=== PATIENT | female | born 1950 | race Caucasian/White ===

== ENCOUNTER 2018-12-15 17:11 | Emergency (ER) | payer OTHER ==
[~2018-12-15] VITALS: Ht 162.6 cm; Wt 57.1 kg
--- OUTSIDE RECORDS SUMMARY | ~2018-12-15 | XMS | Encounter Summary ---
Demographics + + + | Address | [address] | | | [place] [address] | + + + | Home Phone | | + + + | Preferred Language | Unknown | + + + | Marital Status | Single | + + + | Yazdanism Affiliation | NRP | + + + | Race | White | + + + | Ethnic Group | Not or | + + + Author + + + | Author | [facility] | + + + | Organization | [facility] | + + + | Address | Unknown | + + + | Phone | Unavailable | + + + Support + + +---------+ + | Name | Relationship | Address | Phone | + + +---------+ + | Collins Gant | ECON | Unknown | | + + +---------+ + | Laura Allred | ECON | Unknown | | + + +---------+ + Care Team Providers + +------+ + | Care Survey Chief Name | Role | Phone | + +------+ + | Lauryn Stuart | PCP | | + +------+ + Reason for Visit AUTH/CERT +--------+--------+ + + + + | Status | Reason | Specialty | Diagnoses / | Referred By | Referred To | | | | | Procedures | Contact | Contact | +--------+--------+ + + + + | | | | | | | +--------+--------+ + + + + Encounter Details +--------+ + + + + | Date | Type | Department | Care Team | Description | +--------+ + + + + | 12/07/ | Anesthesia | [facility]A [facility] | Mango Ceja MD | | | 2019 | Event | [facility] | [address] [facility] | | | | | Admitting Desk | [facility] | | | | | [facility] on the | [place] [address] | | | | | floor [address] [place] [address] | [phone] | | | | | [facility] | | | | | | [place], [place] | | | | | | [address] | | | +--------+ + + + + Anesthesia Record + + + + + | Procedure Name | Responsible | Anesthesia Start | Anesthesia Stop Time | | | Anesthesiologist | Time | | + + + + + | PERCUTANEOUS | Erik Erazo MD | 12/07/18 1438 | 12/07/18 1552 | | ENDOSCOPIC | | | | | GASTROSTOMY (N/A | | | | | Abdomen) | | | | + + + + + +----+---+ + + | Da | T | Event | Comment | | te | i | | | | | m | | | | | e | | | +----+---+ + + | 04 | 1 | Eq Check | Anesthesia machine checked Equipment verified | | /2 | 3 | | | | 0/ | 4 | | | | 20 | 3 | | | | 19 | | | | +----+---+ + + | | 1 | Pt. Check | Prior to anesthesia start, pt. Identified, examined, chart | | | 4 | | reviewed, PARQ held, anesthetic plan made or approved by | | | 1 | | attending anesthesiologist. NPO status confirmed as appropriate | | | 2 | | for procedure Preoperative evaluation: unchanged | +----+---+ + + | | 1 | An Start | | | | 4 | | | | | 3 | | | | | 8 | | | +----+---+ + + | | 1 | ICU to OR | signout received from ICU team, patient transported to OR with | | | 4 | | continous monitoring, intubated and ventilated | | | 3 | | | | | 8 | | | +----+---+ + + | | 1 | An Start | | | | 4 | Data | | | | 4 | | | | | 6 | | | +----+---+ + + | | 1 | Vitals | Monitors applied Vital signs checked Patient ready for anesthesia | | | 4 | Checked | | | | 5 | | | | | 0 | | | +----+---+ + + | | 1 | ETT | | | | 5 | | | | | 0 | | | | | 3 | | | +----+---+ + + | | 1 | Ready | | | | 5 | | | | | 0 | | | | | 5 | | | +----+---+ + + | | 1 | Abx | | | | 5 | Administere | | | | 0 | d | | | | 5 | | | +----+---+ + + | | 1 | Incision | | | | 5 | | | | | 0 | | | | | 8 | | | +----+---+ + + | | 1 | OR to | Patient transported to ICU with continuous monitoring, intubated | | | 5 | ICU/Handoff | and ventilated, handoff given to ICU team. | | | 3 | | | | | 2 | | | +----+---+ + + | | 1 | Surgery end | | | | 5 | | | | | 3 | | | | | 3 | | | +----+---+ + + | | 1 | an stop | | | | 5 | data | | | | 3 | | | | | 6 | | | +----+---+ + + | | 1 | Anesthesia | | | | 5 | End | | | | 5 | | | | | 2 | | | +----+---+ + + | | 1 | Note | Returned to ICU for intubation at bedside, due to high oxygen | | | 5 | | requirements. | | | 5 | | | | | 2 | | | +----+---+ + + | | 1 | An Extubate | Neuromuscular function Intact. Pharynx suctioned. Patient obeys | | | 5 | | commands. Adequate pulmonary mechanics. | | | 5 | | | | | 2 | | | +----+---+ + + +------+ | Meds | +------+ + + + | Name | Total | + + + | ceFAZolin | 2,000 mg | + + + | propofol | 160 mg | + + + | fentaNYL | 100 mcg | + + + | succinylcholine | 60 mg | + + + | PHENYLEPHrine | 600 mcg | + + + | LR | 500 mL | + + + + + | Name | + + | O2 FR Avance (Total Liters) | + + | Air FR Avance (l/min) | + + | Insp Sevo | + + | Et Sevo | + + + + | No blood administrations on file. | + + +--------+ + + + | Type | Details | Placement | Removal | +--------+ + + + | Incisi | 12/04/18; 0859; Dr Oviedo; | 12/04/18 0859 by | 12/14/18 1242 by | | on | Midline, Upper; chest; 12/14/18; | Anjali Fuller RN | María Pierre RN | | | 1242 | | | +--------+ + + + | Incisi | 12/04/18; 1051; Dr Oviedo; Left; | 12/04/18 1051 by | 12/14/18 1242 by | | on | Lateral; chest; 12/14/18; 1242 | Keena Huber RN | María Pierre RN | +--------+ + + + | Chest | 12/04/18; 1500; Dr. Kumar; | 12/04/18 1500 by | 12/13/18 1430 by | | Tube | Standard; Left; Pleural; 28 Fr.; | Anjali Fuller RN | María Pierre RN | | | 12/13/18; 1430; Other (Comment) | | | | | (By ) | | | +--------+ + + + | Wound | 12/04/18; 1800; No; lip; Pressure | 12/04/18 1800 by | 12/14/18 1242 by | | | ulcer; Other (Comment) (device | Tawny Sheikh, | María Pierre RN | | | ETT in OR); 12/14/18; 1242 | RN | | +--------+ + + + | Epidur | 12/04/18; 1940; Manda Hamm MD ; | 12/04/18 1940 by | 12/09/18 1446 by | | al | Thoracic; 12/09/18; 1446 | Christiane Givens RN | Kiya Santos | | | | | MD Martín,PhD | +--------+ + + + | Periph | 12/06/18; 2300; FARIDA Leonardo; | 12/06/18 2300 by | 12/14/18 1242 by | | eral | Right; Forearm; 20 g; Positive; | Xiomy Jacome RN | María Pierre RN | | IV | 12/14/18; 1242 | | | +--------+ + + + | Feedin | 12/07/18; Dr. Handley; PEG tube; | 12/07/18 0000 by | 12/14/18 1242 by | | g Tube | Abdomen UL; 20; 12/14/18; 1242 | Tere Adams RN | María Pierre RN | +--------+ + + + | [place] | 12/07/18; 1214; Issa Cat RN BSN | 12/07/18 1214 by | 12/14/18 1053 by | | e - | VAT; 10 cm; Non-tunneled, | Stephanie Michel RN | Rianna Duffy RN | | Single | Open-ended; Left; Upper Arm; 18g; | | | | Lumen | Brachial; 12/14/18; 1053; Per | | | | | order, Discharge (Catheter andtip | | | | | intact. Sterile dressing | | | | | applied.) | | | +--------+ + + + | ETT | 12/07/18; 1503 (created via | 12/07/18 1503 by | 12/07/18 1552 by | | | procedure documentation); 7; | Keena Hsieh CRNA | Keena Hsieh CRNA | | | Oral; Cuffed; 12/07/18; 1552 | | | +--------+ + + + in this encounter Social History + + + +--------+------+ | Tobacco Use | Types | Packs/Day | Years | Date | | | | | Used | | + + + +--------+------+ | Current Every Day | Cigarettes | | | | | Smoker | | | | | + + + +--------+------+ + +---+---+---+ | Smokeless Tobacco: | | | | | Never Used | | | | + +---+---+---+ + + +---------+ + | Alcohol Use | Drinks/We | oz/Week | Comments | | | ek | | | + + +---------+ + | Yes | | | Depends. Drinks wine "often" | + + +---------+ + + + + | Sex Assigned at | Date Recorded | | | | + + + | Not on file | | + + + as of this encounter Functional Status + + + + | Functional Status | Response | Date of Assessment | + + + + | Because of a physical, mental, or emotional | No | 12/05/2018 | | condition, do you have serious difficulty | | | | doing errands alone such as visiting the | | | | doctor? | | | + + + + + + + + | Cognitive Status | Response | Date of Assessment | + + + + | Because of a physical, mental, or emotional | No | 12/05/2018 | | condition, do you have serious difficulty | | | | concentrating, remembering, or making | | | | decisions? (5 years old or older) | | | + + + + as of this encounter Plan of Treatment +--------+---------+ + + + | Date | Type | Specialty | Care Team | Description | +--------+---------+ + + + | 12/20/ | Office | Thoracic Surgery | Manoj Kumar MD | | | 2019 | Visit | | [address] [facility] | | | | | | [address] | | | | | | [place], [place] | | | | | | [address] | | | | | | [phone] | | | | | | | | +--------+---------+ + + + as of this encounter Results ELMA ETT (12/07/2018 3:11 PM) + + + | Narrative | Performed At | + + + | Keena Hsieh CRNA 12/07/2018 3:16 PM [employer] | | | - ETT Time of Intubation: 12/07/2018 3:03 PM Intubation Reason: For | | | surgical procedure Positioning: Supine OXYGENATION Patient was | | | preoxygenated Apneic oxygenation Grade: Grade 1 - Ventilated by mask | | | Induction:Routine INTUBATION ATTEMPT 1 Blade Type: | | | Alejandra Blade #: 3 Intubation Adjuncts: w/ Bougie Laryngoscopic | | | View: Grade III ATTEMPT 2 Blade Type: Alejandra Blade #: 3 | | | Intubation adjuncts: w/ Stylet Laryngoscopic View: Grade III ETT | | | DETAILS ETT Type:Standard, Hi-Lo Cuffed Intubation Type: Oral Cuff | | | Status: Cuffed Size: 7 ETT secured with adhesive tape Depth at | | | Lip: 20 cm Airway Leak: No CONFIRMATION Number of Attempts: 2 | | | Positive for EtCO2:Waveform capnography Breath Sounds: Bilateral and | | | equal NARRATIVE Attending physically present Authorized by TY | | | ERIK Performed by KEENA HSIEH Procedure Comments: Very | | | limited mouth opening, unable to insert bougie into trachea on first | | | attempt. Slightly better view (almost Grade II with additional | | | anesthetic, although still has limited mouth opening) on second | | | attempt with styletted ETT | | + + + in this encounter Visit Diagnoses Not on filein this encounter Administered Medications + +--------+ + +------+------+ | Medication Order | MAR | Action | Dose | Rate | Site | | | Action | Date | | | | + +--------+ + +------+------+ | ceFAZolin (ANCEF) injection | Given | 12/07/ | 2,000 mg | | | | INTRAPROCEDURE PRN, Starting Sat | | 9 15:05 | | | | | 12/07/18 at 1505, Until Sat | | PDT | | | | | 12/07/18 at 1536 | | | | | | + +--------+ + +------+------+ +---+---+ | | | +---+---+ + +-------+ +--------+---+---+ | fentaNYL (SUBLIMAZE) injection | Given | | 50 mcg | | | | INTRAPROCEDURE PRN, Starting Sat | | 9 15:00 | | | | | 12/07/18 at 1500, Until Sat | | PDT | | | | | 12/07/18 at 1536 | | | | | | + +-------+ +--------+---+---+ +-------+ +--------+---+---+ | Given | | 50 mcg | | | | | 9 15:25 | | | | | | PDT | | | | +-------+ +--------+---+---+ +---+---+ | | | +---+---+ + +---------+ +---+---+---+ | lactated ringers IV | New Bag | | | | | | INTRAPROCEDURE CONTINUOUS PRN, | | 9 14:38 | | | | | Starting 12/07/18 at 1438, | | PDT | | | | | Until 12/07/18 at 1536 | | | | | | + +---------+ +---+---+---+ + + +---+---+---+ | given by anesthesiology | | | | | | | 9 15:32 | | | | | | PDT | | | | + + +---+---+---+ +---+---+ | | | +---+---+ + +-------+ +---------+---+---+ | PHENYLEPHrine 100 mcg/mL IV | Given | | 200 mcg | | | | syringe INTRAPROCEDURE PRN, | | 9 15:17 | | | | | Starting 12/07/18 at 1506, | | PDT | | | | | Until 12/07/18 at 1536 | | | | | | + +-------+ +---------+---+---+ +-------+ +---------+---+---+ | Given | | 100 mcg | | | | | 9 15:25 | | | | | | PDT | | | | +-------+ +---------+---+---+ | Given | | 100 mcg | | | | | 9 15:29 | | | | | | PDT | | | | +-------+ +---------+---+---+ +---+---+ | | | +---+---+ + +-------+ +-------+---+---+ | propofol (DIPRIVAN) injection | Given | | 80 mg | | | | INTRAPROCEDURE PRN, Starting Sat | | 9 15:01 | | | | | 12/07/18 at 1501, Until Sat | | PDT | | | | | 12/07/18 at 1536 | | | | | | + +-------+ +-------+---+---+ +-------+ +-------+---+---+ | Given | | 40 mg | | | | | 9 15:02 | | | | | | PDT | | | | +-------+ +-------+---+---+ | Given | | 40 mg | | | | | 9 15:30 | | | | | | PDT | | | | +-------+ +-------+---+---+ +---+---+ | | | +---+---+ + +-------+ +-------+---+---+ | succinylcholine (ANECTINE) | Given | | 60 mg | | | | injection INTRAPROCEDURE PRN, | | 9 15:01 | | | | | Starting 12/07/18 at 1501, | | PDT | | | | | Until 12/07/18 at 1536 | | | | | | + +-------+ +-------+---+---+ +---+---+ | | | +---+---+ in this encounter
--- OUTSIDE RECORDS SUMMARY | ~2018-12-15 | XMS | Encounter Summary ---
Demographics + + + | Address | [address] | | | [place] [address] | + + + | Home Phone | | + + + | Preferred Language | Unknown | + + + | Marital Status | Single | + + + | Hoahaoism Affiliation | NRP | + + + | Race | White | + + + | Ethnic Group | Not or | + + + Author + + + | Author | [facility] | + + + | Organization | [facility] | + + + | Address | [...] Team Providers + +------+ + | Care Cutter First Name | Role | Phone | + +------+ + | Lauryn Stuart | PCP | | + +------+ + Encounter Details +--------+ + + + + | Date | Type | Department | Care Team | Description | +--------+ + + + + | 12/02/ | Telephone | Cardiothoracic | Heladio Francisco, | | | 2018 | | Surgery at [facility] [address] | [address] | | | | | [place] | [facility] | | | | | [facility] Mailcode: | [place], [place] | | | | | [address] | [address] | | | | | [place], | [phone] | | | | | [place] [address] | | | | | | [phone] | | | +--------+ + + + [...] 2019 | Visit | | [address] | | | | | | [address] | | | | | | [place], [place] | | | | | | [address] | | | | | | [phone] | | | | | | | | +--------+---------+ + + + as of this encounter Visit Diagnoses Not on filein this encounter
--- OUTSIDE RECORDS SUMMARY | ~2018-12-15 | XMS | Encounter Summary ---
Demographics + + + | Address | [address] | | | [place] [address] | + + + | Home Phone | | + + + | Preferred Language | Unknown | + + + | Marital Status | Single | + + + | Taoist Affiliation | NRP | + + + | Race | White | + + + | Ethnic Group | Not or | + + + Author + + + | Author | [facility] | + + + | Organization | [facility] | + + + | Address [...] Team Providers + +------+ + | Care Healthcare Advisory Services Manager Name | Role | Phone | + +------+ + | Lauryn Stuart | PCP | | + +------+ + Reason for Referral Consultation (Routine) + +---------+ + + + + | Status | Reason | Specialty | Diagnoses / | Referred By | Referred To | | | | | Procedures | Contact | Contact | + +---------+ + + + + | New Request | Other | Hematology & | Diagnoses | Jt | Hem Faculty | | | | Oncology | Malignant | CARLO Allen | [facility] [address] | | | | | neoplasm of | [address] | [address] | | | | | lung, | Ave | Mailcode: | | | | | unspecified | [place], [place] | [place] [facility] | | | | | laterality, | [address] | Health and | | | | | unspecified | Phone: | Healing, | | | | | part of lung | [phone] | [address] | | | | | (HCC) | Fax: | [place], [place] | | | | | Procedures | [phone] | [address] | | | | | CONSULT TO | | Phone: | | | | | HEMATOLOGY / | | [phone] | | | | | ONCOLOGY | | Fax: | | | | | PRACTICE | | [phone] | + +---------+ + + + + Encounter Details +--------+ + + + + | Date | Type | Department | Care Team | Description | +--------+ + + + + | 12/13/ | Bank Clerk | Cardiothoracic | Alejandro Waters NP | Malignant neoplasm | | 2019 | | Surgery at [facility] [address] | [address] | of lung, unspecified | | | | [place] | [place], [place] | laterality, | | | | [facility] Mailcode: | [address] | unspecified part of | | | | [address] | [phone] | lung (HCC) (Primary | | | | [place], | | Dx) | | | | [place] [address] | | | | | | [phone] | | | +--------+ + + + [...] | 2019 | Visit | | [address] | | | | | | [address] | | | | | | [place], [place] | | | | | | [address] | | | | | | [phone] | | | | | | | | +--------+---------+ + + + as of this encounter Visit Diagnoses + + | Diagnosis | + + | Malignant neoplasm of lung, unspecified laterality, unspecified part of lung (HCC) - | | Primary | + +
--- OUTSIDE RECORDS SUMMARY | ~2018-12-15 | XMS | Encounter Summary ---
Demographics + + + | Address | [address] | | | [place] [address] | + + + | Home Phone | | + + + | Preferred Language | Unknown | + + + | Marital Status | Single | + + + | Synagogue Affiliation | NRP | + + + | Race | White | + + + | Ethnic Group | Not or | + + + Author + + + | Author | [facility] | + + + | Organization | [facility] | + + + | Address | [...] Team Providers + +------+ + | Care Step Down Specialist Name | Role | Phone | + +------+ + | Lauryn Stuart | PCP | | + +------+ + Encounter Details +--------+ + + + + | Date | Type | Department | Care Team | Description | +--------+ + + + + | 12/04/ | Procedure | [facility] | | | | 2019 | Pass | [facility] | | | | | | Admitting Desk | | | | | | Located on the 9th | | | | | | floor [address] [facility] | | | | | | [facility] | | | | | | [place], [place] | | | | | | [address] | | | +--------+ + + + [...] [address] | | | | | | [place], [place] | | | | | | [address] | | | | | | [phone] | | | | | | | | +--------+---------+ + + + as of this encounter Visit Diagnoses Not on filein this encounter
--- OUTSIDE RECORDS SUMMARY | ~2018-12-15 | XMS | Encounter Summary ---
Demographics + + + | Address | [address] | | | [place] [address] | + + + | Home Phone | | + + + | Preferred Language | Unknown | + + + | Marital Status | Single | + + + | Congregational Affiliation | NRP | + + + | Race | White | + + + | Ethnic Group | Not or | + + + Author + + + | Author | [facility] | + + + | Organization | [facility] | + + + | Address [...] Team Providers + +------+ + | Care Maintenance Journeyman Name | Role | Phone | + +------+ + | Lauryn Stuart | PCP | | + +------+ + Reason for Visit Diagnostic Testing (Routine) +--------+--------+ + + + + | Status | Reason | Specialty | Diagnoses / | Referred By | Referred To | | | | | Procedures | Contact | Contact | +--------+--------+ + + + + | Closed | | Cardiology | Diagnoses | Jt, | Car Echo | | | | | Neoplasm | CARLO Allen | [facility] [address] | | | | | Procedures | [address] | [address] | | | | | [address]ESS | [address] | | | | | DOBUTAMINE | [place], [place] | Mailcode: | | | | | ECHOCARDIOGR | [address] | [id number] | | | | | AM, ADULT | Phone: | Zoltan Calderón | | | | | | [phone] | Building | | | | | | Fax: | [facility] [place] | | | | | | [phone] | [address] | | | | | | | Phone: | | | | | | | [phone] | +--------+--------+ + + + + Encounter Details +--------+ + + + + | Date | Type | Department | Care Team | Description | +--------+ + + + + | 11/26/ | Hospital | Cardiac | | | | 2019 | Encounter | Non-Invasive Testing | | | | | | at [facility] [address] | | | | | | [address] Mailcode: | | | | | | [facility] | | | | | | [facility] | | | | | | [place], [place] | | | | | | [address] | | | | | | [phone] | | | +--------+ + + + [...] + + + as of this encounter Last Filed Vital Signs + + + + | Vital Sign | Reading | Time Taken | + + + + | Blood Pressure | - | - | + + + + | Pulse | - | - | + + + + | Temperature | - | - | + + + + | Respiratory Rate | - | - | + + + + | Oxygen Saturation | - | - | + + + + | Inhaled Oxygen | - | - | | Concentration | | | + + + + | Weight | 58.5 kg (129 lb) | 11/26/2018 11:22 AM PDT | + + + + | Height | 152.4 cm (5') | 11/26/2018 11:22 AM PDT | + + + + | Body Mass Index | 25.19 | 11/26/2018 11:22 AM PDT | + + + + in this encounter Medications at Time of Discharge + + +--------+---------+ + + | Medication | Sig. | Disp. | Refills | Start | End Date | | | | | | Date | | + + +--------+---------+ + + | acetaminophen 325 | Take 1-2 tablets by | | | 12/15/19 | | | mg oral | mouth every six | | | 19 | | | tabletIndications: | hours as needed. | | | | | | fever, Pain | Indications: fever, | | | | | | | Pain | | | | | + + +--------+---------+ + + | albuterol 90 | Inhale by mouth as | | | 08/17/20 | | | mcg/actuation | needed. | | | 16 | | | inhalation HFA | | | | | | | aerosol inhaler | | | | | | + + +--------+---------+ + + | ALPRAZolam 0.25 mg | Take by mouth as | | 3 | 11/07/19 | | | oral tablet | needed. | | | 19 | | + + +--------+---------+ + + | buPROPion XL 300 | Take 1 tablet by | | | 10/23/19 | | | mg oral tablet | mouth once daily. | | | 19 | | | extended release 24 | | | | | | | hr | | | | | | + + +--------+---------+ + + | cilostazol 50 mg | Take 1 tablet by | | | 11/12/19 | | | oral tablet | mouth once daily. | | | 19 | | + + +--------+---------+ + + | cyanocobalamin | Take 1,000 mcg by | | | | | | 1,000 mcg oral | mouth once daily. | | | | | | tablet | | | | | | + + +--------+---------+ + + | doxycycline | Take 100 mg by mouth | | | 08/17/20 | | | hyclate 100 mg oral | two times daily. | | | 16 | | | capsuleIndications: | Indications: skin | | | | | | dermatologic | infection | | | | | + + +--------+---------+ + + | estradiol 2 mg | Take 2 mg by mouth | | | 10/23/19 | | | oral tablet | once daily. | | | 19 | | + + +--------+---------+ + + | Lactobacillus | Take 1 capsule by | | | | | | acidophilus | mouth once daily. | | | | | | (PROBIOTIC | | | | | | | ACIDOPHILUS ORAL) | | | | | | + + +--------+---------+ + + | lansoprazole 30 mg | Take 30 mg by mouth | | | 10/23/19 | | | oral | once daily. | | | 19 | | | capsule,delayed | | | | | | | release(DR/EC) | | | | | | + + +--------+---------+ + + | Lidocaine 4 % | Apply 1 patch to | | | 12/14/19 | | | topical adhesive | affected area once | | | 19 | | | patch,medicatedIndic | daily as needed. | | | | | | ations: neuropathic | Indications: | | | | | | pain | neuropathic pain | | | | | + + +--------+---------+ + + | nicotine 14 mg/24 | Apply to skin as | | | 11/12/19 | | | hr transdermal patch | needed. | | | 19 | | | 24 hour | | | | | | + + +--------+---------+ + + | oxyCODONE | Take 2 to 4 tablets | 75 | 0 | 12/14/19 | | | (immediate release) | by mouth every four | tablet | | 19 | | | 5 mg oral | hours as needed for | | | | | | tabletIndications: | severe pain. | | | | | | Pain | Indications: Pain | | | | | + + +--------+---------+ + + | QVAR REDIHALER 40 | Inhale by mouth once | | | 10/25/19 | | | mcg/actuation | daily. | | | 19 | | | inhalation HFA | | | | | | | aerosol breath | | | | | | | activated | | | | | | + + +--------+---------+ + + | senna-docusate | Take 1 tablet by | | | 12/14/19 | | | 8.6-50 mg oral | mouth twice daily as | | | 19 | | | tabletIndications: | needed for | | | | | | constipation | constipation. | | | | | | | Indications: | | | | | | | constipation | | | | | + + +--------+---------+ + + | SYNTHROID 50 mcg | Take 50 mcg by mouth | | | 10/23/19 | | | oral tablet | once daily. | | | 19 | | + + +--------+---------+ + + | | Take 0.5 tablets by | 14 | 0 | 12/15/19 | | | triamterene-hydrochl | mouth once daily. | tablet | | 19 | | | orothiazide 37.5-25 | Indications: high | | | | | | mg oral | blood pressure | | | | | | tabletIndications: | | | | | | | high blood pressure | | | | | | + + +--------+---------+ + + as of this encounter Progress Notes Cara Torres RN - 11/26/2018 12:59 PM PDTDobutamine stress echocardiogram completed, report to follow. Patient presented with left neck and chest pain, rated at its worst 3/10, which worsened to 4-5/10 during the test and returned to baseline after esmolol was adminis tered. Echo images and EKG tracings reviewed with Dr. Hannah Mccormick, who determined the pa tient was safe to be released from the lab. At 1140, prior to the beginning of the procedure, the team paused to verify the patient s identity, the procedure to be performed (in accordance with the consent,) and the correct s margaret/site. The patient was positioned appropriately. All relevant images and results were pro perly labeled and displayed. We addressed antibiotic prophylaxis and fluids for irrigation a s applicable to this patient. Any safety precautions were addressed. IV flushed, site c/d/i and patent. IV wrapped and left in place for later appointment wit h MRI today. MRI department notified that patient would be arriving at appointment with a P IV. Patient released from echo lab at 1222, VSS and pain level returned to baseline. Tania Birmingham - 11/26/2018 12:46 PM PDTDobutamine stress echocardiogram completed. Final rep ort to follow. in this encounter Plan of Treatment +--------+---------+ + + + | Date | Type | Specialty | Care Team | Description | +--------+---------+ + + + | 12/20/ | Office | Thoracic Surgery | Manoj Kumar MD | | | 2019 | Visit | | [address] | | | | | | [address] | | | | | | [place], [place] | | | | | | [address] | | | | | | [phone] | | | | | | | | +--------+---------+ + + + as of this encounter Procedures + +--------+ + + + | Procedure Name | Priori | Date/Time | Associated Diagnosis | Comments | | | ty | | | | + +--------+ + + + | STRESS DOBUTAMINE | Routin | 11/26/2018 | Neoplasm | Results for this | | ECHOCARDIOGRAM, | e | 11:43 AM | | procedure are in the | | ADULT | | PDT | | results section. | + +--------+ + + + | ECG TRACING FOR | Extrem | 11/26/2018 | Neoplasm | Results for this | | STRESS | e | 11:15 AM | | procedure are in the | | ECHOCARDIOGRAM | Emerge | PDT | | results section. | | | ncy | | | | + +--------+ + + + in this encounter Results ECG TRACING FOR STRESS ECHOCARDIOGRAM (11/26/2018 11:15 AM) + + + + + | Component | Value | Ref Range | Performed At | + + + + + | CLARIFICATION | This report contains | | [facility] | | | Stress ECG Tracings, | | CARDIOLOGY | | | Observations and | | | | | Preliminary Results. | | | | | For Test Report and | | | | | Interpretation: Go to | | | | | the Stress | | | | | Echocardiogram Order, | | | | | located under the CARDS | | | | | tab in EPIC. | | | + + + + + | INTERP | . | | [facility] | | | | | CARDIOLOGY | + + + + + | CONCLUSION | . | | [facility] | | | | | CARDIOLOGY | + + + + + + + + | Narrative | Performed At | + + + | | | + + + + + + + + | Performing | Address | City/State/Zipcode | Phone Number | | Organization | | | | + + + + + | [facility] | [address] | [place], [place] | | | CARDIOLOGY | [address] | [address] | | + + + + + in this encounter Visit Diagnoses + + | Diagnosis | + + | Neoplasm | + + | Neoplasm of unspecified nature, site unspecified | + + Administered Medications + +--------+ +--------+------+------+ | Medication Order | MAR | Action | Dose | Rate | Site | | | Action | Date | | | | + +--------+ +--------+------+------+ | atropine injection 0.3-0.4 mg | Given | 11/26/2018 | 0.3 mg | | | | 0.3-0.4 mg, intravenous, | | 11:59 | | | | | INTRAPROCEDURE PRN, Starting Tue | | PDT | | | | | 11/26/18 at 1123, Until 11/26/18 | | | | | | | at 1322, per dobutamine stress | | | | | | | echo protocol | | | | | | + +--------+ +--------+------+------+ +---+---+ | | | +---+---+ + +---------+ + +-------+---+ | DOBUTamine (DOBUTREX) 500 | New Bag | 11/26/2018 | 5 | 8.78 | | | mg/250 mL (2 mg/mL) IV infusion | | 11:52 | mcg/kg/m | mL/hr | | | (RTU) 5-50 mcg/kg/min | | PDT | in | | | | 58.5 kg Dosing weight | | | | | | | (8.775-87.75 mL/hr, rounded to | | | | | | | 8.78-87.75 mL/hr), intravenous, | | | | | | | INTRAPROCEDURE CONTINUOUS PRN, | | | | | | | Starting 11/26/18 at 1123, | | | | | | | Until 11/26/18 at 1322, per | | | | | | | DOBUTamine stress echo protocol | | | | | | + +---------+ + +-------+---+ + + + +--------+---+ | Rate/Dose Change | 11/26/2018 | 10 | 17.55 | | | | 11:55 | mcg/kg/m | mL/hr | | | | PDT | in | | | + + + +--------+---+ | Rate/Dose Change | 11/26/2018 | 20 | 35.1 | | | | 11:58 | mcg/kg/m | mL/hr | | | | PDT | in | | | + + + +--------+---+ +---+---+ | | | +---+---+ + +-------+ +-------+---+---+ | esmolol (BREVIBLOC) injection | Given | 11/26/2018 | 20 mg | | | | 10-30 mg 10-30 mg, intravenous, | | 12:02 | | | | | INTRAPROCEDURE PRN, Starting Tue | | PDT | | | | | 11/26/18 at 1123, Until 11/26/18 | | | | | | | at 1322, per dobutamine stress | | | | | | | echo protocol | | | | | | + +-------+ +-------+---+---+ +---+---+ | | | +---+---+ + +-------+ +--------+---+---+ | perflutren lipid microspheres | Given | 11/26/2018 | 1.5 mL | | | | (DEFINITY) injection 1.5 mL 1.5 | | 11:50 | | | | | mL, intravenous, INTRAPROCEDURE | | PDT | | | | | PRN, Starting 11/26/18 at 1123, | | | | | | | Until 11/26/18 at 1322, image | | | | | | | acquisition | | | | | | + +-------+ +--------+---+---+ +---+---+ | | | +---+---+ in this encounter
--- OUTSIDE RECORDS SUMMARY | ~2018-12-15 | XMS | Encounter Summary ---
Demographics + + + | Address | [address] | | | [place] [address] | + + + | Home Phone | | + + + | Preferred Language | Unknown | + + + | Marital Status | Single | + + + | Catholic Affiliation | NRP | + + + | Race | White | + + + | Ethnic Group | Not or | + + + Author + + + | Author | [facility] | + + + | Organization | [facility] | + + + | Address | [...] Team Providers + +------+ + | Care Tile And Marble Setter Name | Role | Phone | + [...] | | | 2019 | Event | [facility] | [address] [facility] | | | | | Admitting Desk | [facility] | | | | | [facility] on the | [place] [address] | | | | | floor [address] [place] [address] | [phone] | | | | | [facility] | | | | | | [place], [place] | | | | | | [address] | | | +--------+ + + + [...] | 2019 | Visit | | [address] [facility] | | | | | | [address] | | | | | | [place], [place] | | | | | | [address] | | | | | | [phone] | | | | | | | [...]
--- OUTSIDE RECORDS SUMMARY | ~2018-12-15 | XMS | Encounter Summary ---
Demographics + + + | Address | [address] | | | [place] [address] | + + + | Home Phone | | + + + | Preferred Language | Unknown | + + + | Marital Status | Single | + + + | Yazidism Affiliation | NRP | + + + | Race | White | + + + | Ethnic Group | Not or | + + + Author + + + | Author | [facility] | + + + | Organization | [facility] | + + + | Address [...] Team Providers + +------+ + | Care Academic Physician Name | Role | Phone | + [...] Description | +--------+---------+ + + + | 12/07/ | Surgery | 6A Intra Op [facility] | Derrick Handley, | PERCUTANEOUS | | 2019 | | [facility] | MD [address] [facility] | ENDOSCOPIC | | | | Admitting Desk | [facility] | GASTROSTOMY | | | | Located on the | [place], [place] | | | | | floor [address] [facility] | [address] | | | | | [facility] | [phone] | | | | | [place], [place] | | | | | | [address] | | | +--------+---------+ + + + [...] Pressure | 107/64 | 12/14/2018 7:38 AM PDT | + + + + | Pulse | 89 | 12/14/2018 7:38 AM PDT | + + + + | Temperature | 36.8 C (98.2 F) | 12/14/2018 7:38 AM PDT | + + + + | Respiratory Rate | 18 | 12/14/2018 7:38 AM PDT | + + + + | Oxygen Saturation | 94% | 12/14/2018 7:38 AM PDT | + + + + | Inhaled Oxygen | - | - | | Concentration | | | + + + + | Weight | 65.5 kg (144 lb 6.4 | 12/08/2018 5:00 AM PDT | | | oz) | | + + + + | Height | 162.6 cm (5' 4") | 12/04/2018 6:09 AM PDT | + + + + | Body Mass Index | 24.79 | 12/08/2018 5:00 AM PDT | + + + + in this encounter Functional Status + + [...] + + + as of this encounter Discharge Summaries Heladio Francisco PA-C - 12/14/2018 9:27 AM PDTFormatting of this note may be different fro m the original. 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 Sales cytokeratin immunostain confirms presence of [...] sent to: MALLIKA Toledo; Rell Lovett MD in this encounter Discharge Instructions The following attachments cannot be sent through Care Everywhere.Lung Resection: Post-op (Christiano rubio)Mediastinoscopy: Pre-op (Lebanese)in this encounter Medications at Time of Discharge [...] + as of this encounter Progress Notes Silvana Quevedo MD - 12/13/2018 2:00 PM PDTLeft chest tube removed. Keena Myles CCC -COLORIST DYER - 12/13/2018 8:11 AM PDT ENT SPEECH [...] or concerns about eating, drinking. DIETARY STATUS: [facility] soft. Ate steelhead, veggies, rice and mandarin [...] Voice clear, breathing comfortably. No further acute COLORIST DYER needs. PLAN: 1. ADAT back to regular diet. Pills by mouth okay - in liquids or purees as she wishes. -Aspiration precautions - upright with all PO, single small bites/sips, one bite/sip at a time -L head-turn + chin-tuck is fine if patient finds it helpful with liquids 2. TFs have been discontinued 3. ENT COLORIST DYER will sign-off. Patient can follow-up with us as outpatient in clinic with Dr. Jose arce as needed. Keena Myles MS, [facility]-COLORIST DYER Speech-Language Pathologist [facility] Dept. of Otolaryngology, [address] [place] [place] [address] Pager: [phone] Silvana Quevedo MD - 12/13/2018 7:11 AM PDTFormatting of this note may be different from the original. Thoracic Surgery Brief Inpatient Progress Note Patient name: SUSSY ALLRED Attending: Manoj Kumar MD Procedure day: 9 Procedure: Left thoracotomy, CODY lobectomy with bronchial and PA reconstruction 24 hour events: - Remains on NC, doing well, tolerating [facility] soft diet and diet, no complaints. 24 [...] One lymph node negative for metastasis (0/) O. Lymph node, 3 superior, biopsy: ? [...] mechanical soft diet. Tube feeds off. Plan (wfqx-wk-afuqxape issues): - Aspiration pneumonitis: Resolved - Hypophosphatemia: [...] Stacy Quevedo MD Cardiothoracic Surgery Fellow Pager: [phone] Jamelrio Keena Jessie, CCC-COLORIST DYER - 12/12/2018 12:22 PM PDT ENT SPEECH [...] may not be indicated until 6 weeks post-[facility] ent. DIETARY STATUS: Purees and any liquids. [...] resident on- call. Recommend diet upgrade to [facility] soft and any liquids for more palatable [...] of TFs to promote appetite 3. ENT COLORIST DYER will continue to follow. Please page [phone] as needed. Keena Myles MS, [facility]-COLORIST DYER Speech-Language Pathologist [facility] Dept. of Otolaryngology, [address] [place] [place] [address] Pager: [phone] Silvana Quevedo MD - 12/12/2018 7:53 AM PDTFormatting of this note may be different from the original. Thoracic Surgery Brief Inpatient [...] a PEG tube for nutri tion. Plan (uvqo-ln-eswhdgab issues): - Aspiration pneumonitis: Productive sputum, augmentin [...] Stacy Quevedo MD Cardiothoracic Surgery Fellow Pager: [phone] Keena Myles, [facility]-COLORIST DYER - 12/11/2018 2:44 PM PDT ENT SPEECH [...] verified. The patient was evaluated in the [facility] 10th floor Radiology suite & [...] re: decrease or discontinue TFs 3. ENT COLORIST DYER will follow-up on morning. Please page [phone] as needed. Keena Myles MS, CCC-COLORIST DYER Speech-Language Pathologist [facility] Dept. of Otolaryngology, [address] [place] [address] Pager: [phone] Keena Myles, CCC-COLORIST DYER - 12/11/2018 10:26 AM PDT ENT SPEECH [...] to improve and tolerate PO. 4. ENT COLORIST DYER [place] [phone] [place] [phone] any time with questions or concer ns. Keena Myles MS, CCC-COLORIST DYER Speech-Language Pathologist [facility] Dept. of Otolaryngology, [address] [place] [place] [address] Pager: [phone] Silvana Quevedo MD - 12/11/2018 8:24 AM PDTFormatting of this note may be different from the original. Thoracic Surgery Brief Inpatient [...] PEG tube and stric t NPO. Plan (gixj-ka-bgvsmoie issues): - Aspiration pneumonitis: Productive sputum, augmentin [...] Stacy Quevedo MD Cardiothoracic Surgery Fellow Pager: [phone] Meggan Downs, COLORIST DYER - 12/10/2018 4:21 PM PDTINPATIENT ENT SPEECH PROGRESS NOTE: Order received, chart reviewed. Patient with history of "large volume aspiration", even un clear. Recommend objective swallow evaluation in Radiology Sunday, 12/11 prior to initiat ion of p.o. Intake. Recommend: NPO, all nutrition/hydration/medication via PEG Plan: [facility] Sunday. Meggan Downs, Ph.D., CCC-COLORIST DYER Routing Equipment Tender Director, [facility] Otolaryngology, Head and Neck Surgery [facility] [phone] Augustine Nolan MD - 12/10/2018 9:51 AM PDTFormatting of this note may be different f rom the original. PATIENT NAME: Sussy Allred MR#: [id number] : 1950 PRIMARY CARE PROVIDER: MALLIKA Toledo [...] Intake/Output Summary (Last 24 hours) at 12/10/18 0951 Last data filed at 12/10/18 0545 Gross [...] does require an overnight stay in the [facility], but is not particularly uncomfortable and the [...] Dr. Jose da silva. Augustine Nolan M.D. Routing Equipment Tender Laryngology and Head & Neck SurgerySilvana Quevedo MD - 12/10/2018 6:35 AM PDTFormatting of this note may be different from the original. Thoracic Surgery Brief Inpatient [...] PEG tube and stric t NPO. Plan (bjrm-rz-tdqpderl issues): - Aspiration pneumonitis: Productive sputum, augmentin [...] Stacy Quevedo MD Cardiothoracic Surgery Fellow Pager: [phone] Kiya Cedillo MD,PhD - 12/09/2018 2:43 PM PDTBrief APS [...] removal. APS will sign off, please page [phone] if there are questions or concerns. APS happy to repla ce epidural in future if primary team and patient think it is needed. Kiya Santos MD Pager [phone] Department of Anesthesiology and Perioperative Medicine Chronic Pain Management Silvana Quevedo MD - 12/09/2018 11:47 AM PDTFormatting of this note may be different from the original. Thoracic Surgery Brief Inpatient [...] PEG tube and stric t NPO. Plan (pcpi-ih-uuhlfqvb issues): - Aspiration pneumonitis: strict NPO, aggressive [...] Stacy Quevedo MD Cardiothoracic Surgery Fellow Pager: [phone] Vee Dickerson, [facility] - 12/09/2018 9:44 AM PDTFormatting of this note may be different from the original. 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 24 Hour events - [...] dysphagia. - Strict NPO, consider re consulting COLORIST DYER today pending course and ENT recs - [...] 12/07 - Strict NPO - ENT performed TRANSIT DEPARTMENT CLERK scope with evidence of left vocal cord [...] Manoj Kumar MD Admitting Provider Cardiothoracic Surgery 11850 Quality section FAST HUG Feeding: Tube Feeds [...] the recent imaging availabl e. CARMELO Riggins [facility] DEPARTMENT: ANE ICU CARDIAC Place of Service:- Inpatient CSN: [id number] Suggested Modifier: None Suggested CPT: TO QC CHEMIST Author:CARMELO Riggins [address] [address]GegManda Hamm MD - 12/09/2018 8:35 AM PDTFormatting of this note may be different from the original. INPATIENT ADULT PAIN SERVICE [...] Hamm MD Anesthesiology PGY1 APS Team Pager [phone] Associated attestation - Kiya Cedillo MD,PhD - [...] 6:40 PM PDTFormatting of this no te may be different from the original. 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 Given her likely long-term [...] 12/08/2018 DEBBIE Lay PA-C Gabriel Owens, PA-C Melean, Cynthia, PA - 12/08/2018 5:31 PM PDTFormatting of this note may be different from the original. 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 Given her likely long-term [...] 12/07 - Strict NPO - ENT performed TRANSIT DEPARTMENT CLERK scope with evidence of left vocal cord [...] Manoj Kumar MD Admitting Provider Cardiothoracic Surgery 10012 Jama Zhao MD ICU PM Attending Anesthesiology 14662 Quality section FAST HUG Feeding: Tube Feeds: [...] e. Date of Service: 12/08/2018 MALLIKA STONER [facility] DEPARTMENT: ANE ICU CARDIAC Place of Service:- Inpatient CSN: [id number] Suggested Modifier: None Suggested CPT: TO QC CHEMIST Author:MALLIKA STONER [place] [address] [place] [address]RqoglaexDennis Myrick MD - 12/08/2018 10:12 AM PDTFormatting of this no te may be different from the original. 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 Given her likely long-term [...] Manoj Kumar MD Admitting Provider Cardiothoracic Surgery 88436 Jama Zhao MD ICU PM Attending Anesthesiology 39102 Code Status Code Status Full Code Quality section I have spent a total of 38 minutes in the direct care and management of this patient indepe ndent of any time spent teaching or performing any separately billable procedures. I reviewe d the documented findings, all data and the recent imaging available. Seen with PA/TRANSIT DEPARTMENT CLERK myah . Please see their note for details. I reviewed the documented findings, all data and the re cent imaging available. Dennis Myrick MD Author:Dennis Myrick MD [address]Oziel Read MD - 12/08/2018 8:43 AM PDTFormatting of this note may be different from the original. INPATIENT ADULT PAIN SERVICE [...] 12:09 PM PDTI saw and evaluated mallika card Sussyvika Allred with trainee: Dr. Read . I have reviewed the trainee's note and I agree with the plan of care as documented. Louie Moura MD Adult Acute Pain Service [facility] Pager#: [phone] Email: [email or web address] hospitalConcha Wayne MD - 12/08/2018 8:25 AM PDTFormatting of this note may be different from the original. Thoracic Surgery Brief Inpatient [...] post-procedure ye day, which is reassuring. Plan (iprb-nt-mnhnoknb issues): - Aspiration pneumonitis: strict NPO, aggressive [...] - Discuss with MD Coreen Farley MD [facility] [place] [facility] Pager #[phone] Dennis Allred PA-C - 12/08/2018 5:02 AM PDTFormatting of this note may be d ifferent from the original. 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 Given her likely long-term [...] 12/08/2018 DEBBIE Lay PA-C Gabriel Owens, PA-C Dixon, Alexandra L, MD,MPH - 12/08/2018 12:05 AM PDTFormatting of this note may be differen t from the original. DEPARTMENT OF SURGERY Emergency General Surgery Admission [...] General Surgery, PGY-3 EGS consult resident pager: [phone] Jama Zhao MD - 12/07/2018 7:30 PM PDTFormatting of this note may be different f rom the original. 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 Given her likely long-term [...] Manoj Kumar MD Admitting Provider Cardiothoracic Surgery 04052 Jama Zhao MD ICU PM Attending Anesthesiology 23390 Code Status Code Status Full Code This [...] and the recent imaging available. Seen with PA/TRANSIT DEPARTMENT CLERK Chalino. Please see their note for details. I reviewed the documented findings, all data and the rec ent imaging available. Date of Service: 12/07/2018 [facility] DEPARTMENT: ANE ICU CARDIAC Place of Service:- Inpatient CSN: [id number] Suggested Modifier: None Suggested CPT: TO QC CHEMIST Author:Jama Zhao MD [address] [address]Ytl, Louie Daniels MD - 12/07/2018 1:26 PM PDTFormatting of this note ma y be different from the original. INPATIENT ADULT PAIN SERVICE [...] Continue neuraxial infusion, titrate infusion as needed MD Anderson Casillas Jenna M, MD - 12/07/2018 1:01 PM PDTFormatting of this note may be different from wood engel. 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 Given her likely long-term need fo r tube feeding given her dysphagia, EGS consulted and plans for PEG. Patient's ICU course co mplicated by hypertension (required phenylephrine now weaned off) and high volume aspiration event with hypoxia requiring HFNC 20L. Remains hemodynamically stable. 24 Hour events - Strict NPO with concern for high volume aspiration, COLORIST DYER signed off for now - Overnight worsening [...] event - Strict NPO - ENT performed TRANSIT DEPARTMENT CLERK scope with evidence of left vocal cord [...] Manoj Kumar MD Admitting Provider Cardiothoracic Surgery 87611 Jama Zhao MD ICU PM Attending Anesthesiology 42434 Quality section FAST HUG Feeding: NPO Analgesia: Epidural (HM-bupiv), rectal tylenol, lido patches Sedation: None Thromboprophylaxis: Lovenox Head of Bed: Head of Bed >30 degrees Ulcer Prophylaxis: Famotidine Glycemic Control: insulin sliding Created by Sonya Barron MD Author:Sonya Barron MD [address] [address] [place] [address]XnyezhnlDennis Myrick MD - 12/07/2018 10:19 AM PDTFormatting of this no te may be different from the original. Cardiovascular Intensive Care Unit Attending Progress Note CVICU D2 Assigned #[id number] ICU Admission Reason Most Recent Value ICU Admission reason post-op management filed at 12/04/2018 1532 Documentation Date Row Name 12/04/18 1534 Day [...] Manoj Kumar MD Admitting Provider Cardiothoracic Surgery 44141 Jama Zhao MD ICU PM Attending Anesthesiology 61368 Code Status Code Status Full Code I [...] ICU CARDIAC Place of Service:- Inpatient CSN: [id number] Suggested Modifier: GC - Resident Involved Suggested CPT: TO QC CHEMIST Dennis Myrick MD Author:Dennis Myrick MD [address] [address] [place] [address]IfefdkaConcha johnson MD - 12/07/2018 9:49 AM PDTFormatting of this n ote may be different from the original. Thoracic Surgery Brief Inpatient Progress Note Patient name: SUSSY ALLRED Attending: Manoj Kumar MD Procedure day: 3 Procedure: Left thoracotomy, CODY lobectomy with bronchial and PA reconstruction 24 hour events: - made strict NPO yesterday with concern for aspiration, COLORIST DYER signed off for now - overnight worsening [...] he risk of prolonged intubation post-anesthesia. Plan (dulb-bx-jvyaiivv issues): - Aspiration pneumonitis: strict NPO, aggressive [...] status Seen and discussed with Dr. Chaya Wayne MD [facility] [facility] Pager #[phone] Gayle Michael - 12/07/2018 9:21 AM PDTTransthoracic echocardiogram complete d. Final report to follow.Dennis Allred PA-C - 12/07/2018 5:34 AM PDTFormatting of this note may be different from the original. Cardiovascular Intensive Care Unit Clinical Update Note Team: D2 Team Pager: [phone] Attending: Cece Pt Name: Sussy Reeves Chalino ID: Abbreviated HPI Update: 1. Strict NPO [...] 12/07/2018 DEBBIE Lay PA-C Gabriel Owens, PA-C Dixon, Alexandra L, MD,MPH - 12/07/2018 12:09 AM PDTFormatting of this note may be differen t from the original. DEPARTMENT OF SURGERY Emergency General Surgery Admission [...] General Surgery, PGY-3 EGS consult resident pager: [phone] Associated attestation - Derrick Handley MD - 12/08/2018 10:17 AM PDTATTENDING ADDENDUM I saw and examined Sussy Allred with the residents on 12/07 and agree with the assessmen t and plan as outlined in this note and participated in the planning of care. Derrick Handley MD FACS nonprofit fundraiser Division of Trauma, Critical Care, and Acute Care Surgery [phone] Dennis Myrick MD - 12/06/2018 11:01 AM PDTFormatting of this note may be different fro m the original. Cardiovascular Intensive Care Unit Attending Progress Note CVICU D2 Assigned #[id number] ICU Admission Reason Most Recent Value ICU [...] is comfortable - pt will need likely mcc enteral access. Has requested surgical feeding tube [...] Manoj Kumar MD Admitting Provider Cardiothoracic Surgery 79612 Doty necessity reviewed: Plan to DC today [...] ICU CARDIAC Place of Service:- Inpatient CSN: [id number] Suggested Modifier: GC - Resident Involved Suggested CPT: TO QC CHEMIST Dennis Myrick MD Author:Dennis Myrick MD [address] [address]Lvypep, Nkem, MD - 12/06/2018 9:21 AM PDTThoracic surgery [...] Stacy Quevedo MD Cardiothoracic Surgery Fellow Pager: [phone] Sonya Barron MD - 12/06/2018 7:50 AM PDTFormatting of this note may be different from t he original. Cardiovascular Intensive Care Unit Team Progress Note CVICU D2 Assigned #[id number] ICU Admission Reason Most Recent Value ICU [...] DHT vs eventual Gtube - ENT performed TRANSIT DEPARTMENT CLERK scope with evidence of left vocal cord [...] Manoj Kumar MD Admitting Provider Cardiothoracic Surgery 40209 Quality section A-Line necessity reviewed: Plan to DC today Doty necessity reviewed: Plan to DC today FAST HUG Feeding: NPO Analgesia: epidural, Tylenol, lidocaine patches Sedation: None Thromboprophylaxis: Lovenox Head of Bed: Head of Bed >30 degrees Ulcer Prophylaxis: Famotidine Glycemic Control: insulin sliding Created by Sonya Barron MD Author:Sonya Barron MD [address] [place] [address] [place] [address]WsbzmyRobin Flores MD - 12/06/2018 7:02 AM PDTFormatting of thi s note may be different from the original. INPATIENT ADULT PAIN SERVICE [...] revealed minimally mobile LEFT true vocal cord. COLORIST DYER evaluation with concern for ri sk of [...] Flores MD Anesthesiology/CCM Fellow APS Team Pager [phone] Associated attestation - Louie Moura MD - 12/07/2018 2:59 PM PDTI saw and evaluated mallika Allred with trainee: Dr. Flores . I have reviewed the trainee's note and I agree with the plan of care as documented. Louie Moura MD Adult Acute Pain Service [facility] Pager#: [phone] Email: [email or web address] - 12/05/2018 9:06 PM PDTFormatting of this note ma y be different from the original. Cardiovascular Intensive Care Unit Clinical Update Note Team: D2 Team Pager: [phone] Attending: Layla Pt Name: Sussy Allred ID: Abbreviated HPI Update: 1. Hypotension a. Impoved 12/05/2018 after 2L crystalloid b. UO improved with IVF 2. Recurret Laryngeal nerve a. ENT Eval complete b. Pending re eval by COLORIST DYER for swallow this sim S: Pain, drowsy [...] 12/05/2018 DEBBIE Lay PA-C Gabriel Owens, PA-C Wiley, Jenna M, MD - 12/05/2018 12:03 PM PDTFormatting of this note may be different from wood maddox original. Cardiovascular Intensive Care Unit Team Progress Note CVICU D2 Assigned #[id number] ICU Admission Reason Most Recent Value ICU [...] levothyroxine 50mcg PO DAILY after clear by COLORIST DYER Cardiovascular HTN (hypertension) Unknown Current Assessment & [...] - restart PO PPI when clear by COLORIST DYER At risk for Dysphagia Unknown Current Assessment [...] Manoj Kumar MD Admitting Provider Cardiothoracic Surgery 89173 Quality section A-Line necessity reviewed: Uduj-cn-ciqw blood pressure monitoring Doty necessity reviewed: Hourly/Accurate measurement of urinary output for clinical manage ment of critically ill patients FAST HUG Feeding: NPO Analgesia: Tylenol, epidural (bupiv-fent) Sedation: None Thromboprophylaxis: SCDs Head of Bed: Head of Bed >30 degrees Ulcer Prophylaxis: Famotidine Glycemic Control: insulin sliding Created by Sonya Barron MD Author:Sonya Barron MD [address] [address]Qprbbrm, Sara, CF-COLORIST DYER - 12/05/2018 10:00 AM PDTENT SPEECH PATHOLOGY- INPATIENT NOTE REASON FOR ADMISSION: Sussy Allred is [...] HISTORY: she is single and lives in [place], [place] DIETARY STATUS: Current diet: The patient [...] afternoon when less lethargic/sedate. Ava Allred M.S., CF-COLORIST DYER Speech-Language Pathology Fellow [facility] [phone] Pager: [phone] Dennis Myrick MD - 12/05/2018 8:57 AM PDTFormatting of this note may be different fro m the original. Cardiovascular Intensive Care Unit Attending Progress Note CVICU D2 Assigned #[id number] ICU Admission Reason Most Recent Value ICU [...] Manoj Kumar MD Admitting Provider Cardiothoracic Surgery 85821 Code Status Code Status Full Code Quality section A-Line necessity reviewed: Oqjk-mk-tqme blood pressure monitoring Doty necessity reviewed: Acute [...] ICU CARDIAC Place of Service:- Inpatient CSN: [id number] Suggested Modifier: GC - Resident Involved Suggested CPT: TO QC CHEMIST Dennis Myrick MD Author:Dennis Myrick MD [place] [address]Robin Flores MD - 12/05/2018 8:08 AM PDTFormatting of daniela patterson note may be different from the original. INPATIENT ADULT PAIN SERVICE [...] noted to have BPs in 80s systolic. Daniela patterson was prior to any intervention. Overnight with [...] Flores MD Anesthesiology/CCM Fellow APS Team Pager [phone] Associated attestation - Kiya Cedillo MD,PhD - 12/05/2018 4:50 PM PDTI saw and evaluated patient Ms. Sussy Allred with Resident: Dr. Flores. I reviewed all detail s of Ms. Sussy Allred s epidural block management. I have reviewed the resident s no te and I agree with the plan of care as documented. I do not have additional comments. Kiya Santos MD,PhDSilvana Quevedo MD - 12/05/2018 7:45 AM PDTThoracic surgery progress [...] Stacy Quevedo MD Cardiothoracic Surgery Fellow Pager: [phone] Dennis Allred PA-C - 12/05/2018 3:00 AM PDTFormatting of this note may be different from the original. Cardiovascular Intensive Care Unit Clinical Update Note Team: D2 Team Pager: [phone] Attending: Layla Pt Name: Sussy Allred ID: [...] - restart PO PPI when clear by COLORIST DYER Hypothyroidism 12/04/2018 Assessment & Plan Note: - restart home levothyroxine 50mcg PO DAILY after clear by COLORIST DYER Acute post-operative pain 12/04/2018 Assessment & Plan [...] 12/05/2018 DEBBIE Lay PA-C Gabriel Owens, PA-C Dukatz, Christopher E, MD - 12/04/2018 6:57 PM PDTFormatting of this note may be different from the original. INPATIENT ADULT PAIN SERVICE PROCEDURE NOTE DATE: 12/04/2018 LOCATION: ICU PRE-OPERATIVE DIAGNOSIS: Post-operative pain in the setting of L VATS POST-OPERATIVE DIAGNOSIS: Post-operative pain in the setting of L VATS PROCEDURE: Epidural catheter placement, Level T5/6 interspace LEVEL/LATERALITY: bilateral ATTENDING PHYSICIAN: Hellen Herman MD FIELD AUTO APPRAISER: Jamey Flores MD, Manda Hamm MD ANESTHESIA: [...] LR. The procedure was completed on the 1st atttempt. A nice band was achieved to ice after epidural placement. COMMENTS: none IMAGES: No images were taken The Attending Physician was present for the entire procedure. MD Jamey Boss M.D. Assisted our internal audit manager. I saw and evaluated patient Ms. Sussy [...] I reviewed all details of Ms. Prerna card Halima Allred s epidural block management. I have reviewed the resident s note and I agree with the plan of care as documented. I have additional comments, as follows: This is late co-sign for date of service 12/04/2018 . Hellen Herman MD in this encounter Plan of Treatment +--------+---------+ + + + | Date | Type | Specialty | Care Team | Description | +--------+---------+ + + + | 12/20/ | Office | Thoracic Surgery | Manoj Kumar MD | | | 2019 | Visit | | [address] [facility] | | | | | | [address] | | | | | | [place], [place] | | | | | | [address] | | | | | | [phone] | | | | | | | | +--------+---------+ + + + + +--------+ + + | Name | Priori | Associated Diagnoses | Order Schedule | | | ty | | | + +--------+ + + | CBC (HEMOGRAM) ONLY | Urgent | | Once for 1 | | | | | Occurrences starting | | | | | 12/08/2018 until | | | | | 12/08/2018 | + +--------+ + + as of this encounter Procedures [...] | | | ENDOSCOPIC | ve | 2:15 PM | | | | GASTROSTOMY | [...] + +--------+ + + + | TO QC CHEMIST | Routin | 12/05/2018 | | Results [...] section. | + +--------+ + + + in this encounter Results CAPILLARY BLOOD GLUCOSE (NO CHG), POC (12/14/2018 8:06 AM) + +---------+ + + | Component | Value | Ref Range | Performed At | + +---------+ + + | BLOOD GLUCOSE, POC | 122 (H) | 60 - 99 mg/dL | [facility] | | | | | [facility] | | | | | CARE TESTS | + +---------+ + + + + + + + | Performing | Address | City/State/Zipcode | Phone Number | | Organization | | | | + + + + + | [facility] | [address] | [place], [place] | | | [facility] | [facility] | [address] | | | TESTS | | | | + + + + + X-RAY CHEST 2 VIEW (12/14/2018 7:10 AM) + + + | Narrative | Performed At | + + + | EXAM: CHEST 2 VIEWS HISTORY: Eval interval change s/p left upper | [facility] | | lobectomy and left chest tube removal COMPARISON: 12/13/2018 | RADIOLOGY VOICE | | FINDINGS: The cardiomediastinal contour is stable. There is | RECOGNITION 2 | | left basilar atelectasis. There is a trace left-sided pleural | | | effusion. There is a possible trace left pneumothorax. There is no | | | pulmonary edema. The bones are intact. IMPRESSION: Possible | | | trace left-sided pneumothorax. Left basilar atelectasis and trace | | | left-sided pleural effusion. I have personally reviewed the images | | | and, if necessary, edited the report. I agree with the report as now | | | presented. Final signature: Jadyn Mcadams MD 12/14/2018 10:06 | | | AM Preliminary: Jadyn Mcadmas MD Dictation initiated: | | | Jadyn Mcadams MD 12/14/2018 10:04 AM | | [...] + X-RAY CHEST 2 VIEW (12/13/2018 4:36 PM) + + + | Narrative | [...] Preliminary: Jennifer Haider MD Dictation initiated: Jennifer aHider | | 12/13/2018 5:25 PM | | [...] BLOOD GLUCOSE (NO CHG), POC (12/13/2018 12:41 PM) + +---------+ + + | Component | Value | Ref Range | Performed At | + +---------+ + + | BLOOD GLUCOSE, POC | 117 (H) | 60 - 99 mg/dL | [facility] | | | | | [facility] | | | | | CARE TESTS | + +---------+ + + + + + + + | Performing | Address | City/State/Zipcode | Phone Number | | Organization | | | | + + + + + | [facility] | [address] | [place], [place] | | | [facility] | [address] | [address] | | | TESTS | | | | + + + + + X-RAY PORTABLE CHEST 1 VIEW (12/13/2018 8:24 AM) + + + | Narrative | Performed At | + + + | EXAM: OK CHEST 1 VIEW HISTORY: eval interval change. [...] Final signature: Frieda Brumfield MD 12/13/2018 9:46 | | | AM Preliminary: Frieda Brumfield MD Dictation initiated: Frieda Brumfield MD 12/13/2018 9:42 AM | | + + + + + | Procedure Note | + + | 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, Radiant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 - 12/13/2018 9:47 AM PDT EXAM: OK CHEST 1 | | VIEW HISTORY: eval [...] BLOOD GLUCOSE (NO CHG), POC (12/13/2018 7:44 AM) + +---------+ + + | Component | Value | Ref Range | Performed At | + +---------+ + + | BLOOD GLUCOSE, POC | 134 (H) | 60 - 99 mg/dL | [facility] | | | | | [facility] | | | | | CARE TESTS | + +---------+ + + + + + + + | Performing | Address | City/State/Zipcode | Phone Number | | Organization | | | | + + + + + | [facility] | [address] | [place], [place] | | | [facility] | [address] | [address] | | | TESTS | | | | + + + + + CARDIOLOGY (12/13/2018) + + + | Narrative | Performed At | + + + | | | + + + CAPILLARY BLOOD GLUCOSE (NO CHG), POC (12/12/2018 6:47 PM) + +---------+ + + | Component | Value | Ref Range | Performed At | + +---------+ + + | BLOOD GLUCOSE, POC | 117 (H) | 60 - 99 mg/dL | [facility] | | | | | [facility] | | | | | CARE TESTS | + +---------+ + + + + + + + | Performing | Address | City/State/Zipcode | Phone Number | | Organization | | | | + + + + + | [facility] | [address] | [place], [place] | | | [facility] | [address] | [address] | | | TESTS | | | | + + + + + PROCEDURE NOTE (12/12/2018 4:28 PM) + + + | Narrative | Performed At | + + + | Silvana Quevedo MD 12/13/2018 5:30 AM Indication: Left air | | | leak Staff: Dr Kumar 25 ml of non clotted blood was instilled | | | via an 18 gauge needle into the chest tube. It was flushed. Tube | | | was placed higher than patient on suction for one hour. Silvana | | | MD [facility]ae Cardiothoracic Surgery Fellow Pager: [phone] | | + + + CAPILLARY BLOOD GLUCOSE (NO CHG), POC (12/12/2018 12:48 PM) + +---------+ + + | Component | Value | Ref Range | Performed At | + +---------+ + + | BLOOD GLUCOSE, POC | 110 (H) | 60 - 99 mg/dL | [facility] | | | | | [facility] | | | | | CARE TESTS | + +---------+ + + + + + + + | Performing | Address | City/State/Zipcode | Phone Number | | Organization | | | | + + + + + | [facility] | [address] | [place], [place] | | | [facility] | [address] | [address] | | | TESTS | | | | + + + + + CAPILLARY BLOOD GLUCOSE (NO CHG), POC (12/12/2018 8:09 AM) + +-------+ + + | Component | Value | Ref Range | Performed At | + +-------+ + + | BLOOD GLUCOSE, POC | 98 | 60 - 99 mg/dL | [facility] | | | | | [facility] | | | | | CARE TESTS | + +-------+ + + + + + + + | Performing | Address | City/State/Zipcode | Phone Number | | Organization | | | | + + + + + | [facility] | [address] | [place], [place] | | | [facility] | [address] | [address] | | | TESTS | | | | + + + + + CAPILLARY BLOOD GLUCOSE (NO CHG), POC (12/12/2018 6:08 AM) + +---------+ + + | Component | Value | Ref Range | Performed At | + +---------+ + + | BLOOD GLUCOSE, POC | 113 (H) | 60 - 99 mg/dL | [facility] | | | | | [facility] | | | | | CARE TESTS | + +---------+ + + + + + + + | Performing | Address | City/State/Zipcode | Phone Number | | Organization | | | | + + + + + | [facility] | [address] | [place], [place] | | | [facility] | [address] | [address] | | | TESTS | | | | + + + + + CARDIOLOGY (12/12/2018) + + + | Narrative | Performed At | + + + | | | + + + CARDIOLOGY (12/12/2018) + + + | Narrative | Performed At | + + + | | | + + + CAPILLARY BLOOD GLUCOSE (NO CHG), POC (12/11/2018 11:25 PM) + +---------+ + + | Component | Value | Ref Range | Performed At | + +---------+ + + | BLOOD GLUCOSE, POC | 136 (H) | 60 - 99 mg/dL | [facility] | | | | | [facility] | | | | | CARE TESTS | + +---------+ + + + + + + + | Performing | Address | City/State/Zipcode | Phone Number | | Organization | | | | + + + + + | [facility] | [address] | [place], [place] | | | [facility] | [address] | [address] | | | TESTS | | | | + + + + + CAPILLARY BLOOD GLUCOSE (NO CHG), POC (12/11/2018 5:13 PM) + +---------+ + + | Component | Value | Ref Range | Performed At | + +---------+ + + | BLOOD GLUCOSE, POC | 136 (H) | 60 - 99 mg/dL | [facility] | | | | | [facility] | | | | | CARE TESTS | + +---------+ + + + + + + + | Performing | Address | City/State/Zipcode | Phone Number | | Organization | | | | + + + + + | [facility] | [address] | [place], [place] | | | [facility] | [address] | [address] | | | TESTS | | | | + + + + + CAPILLARY BLOOD GLUCOSE (NO CHG), POC (12/11/2018 12:48 PM) + +---------+ + + | Component | Value | Ref Range | Performed At | + +---------+ + + | BLOOD GLUCOSE, POC | 109 (H) | 60 - 99 mg/dL | [facility] | | | | | [facility] | | | | | CARE TESTS | + +---------+ + + + + + + + | Performing | Address | City/State/Zipcode | Phone Number | | Organization | | | | + + + + + | [facility] | [address] | [place], [place] | | | [facility] | [address] | [address] | | | TESTS | | | | + + + + + MODIFIED BARIUM SWALLOWING (12/11/2018 11:07 AM) + + + | Narrative | Performed At | + + + | EXAM: Modified Barium Swallow HISTORY: Recent left | [facility] | | thoracotomy and left upper lobectomy with left recurrent laryngeal | RADIOLOGY VOICE | | nerve excision. Postoperative aspiration with aspiration pneumonitis. | RECOGNITION 2 | | COMPARISONS: None. TECHNIQUE: Fluoroscopy assistance | | | provided to speech pathology for performance of modified barium | | | swallow. Total Fluoroscopy Time: 70 sec IMPRESSION: No | | | aspiration or penetration. Minimal posterior indentation of the | | | esophagus related to endplate osteophytes at C5-6. A left-sided chest | | | tube is partially visualized over the left hemithorax. Please see | | | speech pathology report for full details. I have personally | | | reviewed the images and, if necessary, edited the report. I agree with | | | the report as now presented. Final signature: Chip Fam | | | 12/11/2018 3:26 PM Preliminary: Keith Jung MD | | | Dictation initiated: Keith Jung MD 12/11/2018 11:37 AM | | [...] + + CBC (HEMOGRAM) ONLY (12/11/2018 5:01 AM) + + + + + | Component | Value | Ref Range | Performed At | + + + + + | WHITE CELL COUNT | 12.95 (H) | 3.50 - 10.80 K/cu mm | [facility] | | | | | SERVICES, CORE | + + + + + | RED CELL COUNT | 2.64 (L) | 4.00 - 5.20 M/cu mm | [facility] | | | | | SERVICES, CORE | + + + + + | HEMOGLOBIN | 8.5 (L) | 12.0 - 16.0 g/dL | [facility] | | | | | SERVICES, CORE | + + + + + | HEMATOCRIT | 26.7 (L) | 36.0 - 46.0 % | [facility] | | | | | SERVICES, CORE | + + + + + | MCV | 101.1 (H) | 80.0 - 100.0 fL | [facility] | | | | | SERVICES, CORE | + + + + + | MCHC | 31.8 (L) | 32.0 - 36.0 g/dL | [facility] | | | | | SERVICES, CORE | + + + + + | RDW SD | 46.7 (H) | 35.1 - 46.3 fL | [facility] | | | | | SERVICES, CORE | + + + + + | PLATELET COUNT | 385 | 150 - 400 K/cu mm | [facility] | | | | | SERVICES, CORE | + + + + + | MPV | 8.8 (L) | 9.7 - 12.3 fL | [facility] | | | | | SERVICES, CORE | + + + + + | NRBC% | 0.0 | 0.0 - 0.3 % | [facility] | | | | | SERVICES, CORE | + + + + + | NRBC# | 0.00 | 0.00 - 0.02 K/cu mm | [facility] | | | | | SERVICES, [place] | + + + + + + + | Specimen | + + | Blood - Blood | + + + + + + + | Performing | Address | City/State/Zipcode | Phone Number | | Organization | | | | + + + + + | [facility] | [address] | [place] [address] | | | SERVICES, [place] | [address] | | | + + + + + MAGNESIUM, PLASMA (12/11/2018 5:01 AM) + +-------+ + + | Component | Value | Ref Range | Performed At | + +-------+ + + | MAGNESIUM,PLASMA | 2.3 | 1.6 - 2.6 mg/dL | [facility] | | | | | SERVICES, CORE | + +-------+ + + + + | Specimen | + + | Blood - Blood | + + + + + + + | Performing | Address | City/State/Zipcode | Phone Number | | Organization | | | | + + + + + | [facility] | [address] | [place] [address] | | | SERVICES, CORE | [address] | | | + + + + + RENAL FUNCTION SET (NA,K,CL,CO2,BUN,CREAT,GLUC,CA,PHOS,ALB ) (12/11/2018 5:01 AM) + + + + + | Component | Value | Ref Range | Performed At | + + + + + | GLUCOSE, PLASMA | 105 (H) | 70 - 99 mg/dL | [facility] | | (LAB) | | | SERVICES, CORE | + + + + + | BUN, PLASMA (LAB) | 20 | 6 - 20 mg/dL | [facility] | | | | | SERVICES, CORE | + + + + + | CREATININE PLASMA | 0.59 (L) | 0.60 - 1.10 mg/dL | [facility] | | (LAB) | | | SERVICES, CORE | + + + + + | EGFR - | >60 | >60 mL/min | [facility] | | [place] | | | SERVICES, CORE | + + + + + | EGFR NON | >60 | >60 mL/min | [facility] | | -[place] | | | SERVICES, CORE | + + + + + | SODIUM, PLASMA (LAB) | 137 | 136 - 145 mmol/L | [facility] | | | | | SERVICES, CORE | + + + + + | POTASSIUM, PLASMA | 4.1 | 3.4 - 5.0 mmol/L | [facility] | | (LAB) | | | SERVICES, CORE | + + + + + | CHLORIDE, PLASMA | 102 | 97 - 108 mmol/L | [facility] | | (LAB) | | | SERVICES, CORE | + + + + + | TOTAL CO2, PLASMA | 29 | 21 - 32 mmol/L | [facility] | | (LAB) | | | SERVICES, CORE | + + + + + | CALCIUM, PLASMA | 7.9 (L) | 8.6 - 10.2 mg/dL | [facility] | | (LAB) | | | SERVICES, CORE | + + + + + | CALCIUM(ALB | 9.6 | 8.6 - 10.2 mg/dL | [facility] | | CORRECTED) | | | SADE, CORE | + + + + + | ALBUMIN, PLASMA | 1.9 (L) | 3.5 - 4.7 g/dL | [facility] | | (LAB) | | | SERVICES, CORE | + + + + + | PHOSPHORUS, PLASMA | 3.1 | 2.4 - 4.7 mg/dL | [facility] | | (LAB) | | | SERVICES, CORE | + + + + + | POTASSIUM CMNT | No Hemo | | [facility] | | | | | SERVICES, CORE | + + + + + | ANION GAP | 6 | 4 - 11 mmol/L | [facility] | | | | | SERVICES, CORE | + + + + + | ANION GAP(ALB | 11 | 4 - 11 mmol/L | [facility] | | CORRECTED) | | | SERVICES, CORE | + + + + + + + | Specimen | + + | Blood - Blood | + + + + + | Narrative | Performed At | + + + | GFR is estimated using the MDRD equation recommended by the | [facility] | | National Kidney Disease Education Program. Estimated GFR | LABORATORY | | Interpretive Information: <60 mL/min/1.73 sq | SERVICES, CORE | | m Chronic Kidney Disease <15 mL/min/1.73 | | | sq m Kidney Failure Estimated GFR greater | | | than 60 mL/min/1.73 sq m is of limited clinical value. The MDRD | | | equation is not valid in the following situations: - Patients under | | | 18 years of age - Severe malnutrition or obesity - Vegetarian diet | | | - Rapidly changing kidney function - Amputees, paraplegics, or other | | | muscle-wasting diseses | | + + + + + + + + | Performing | Address | City/State/Zipcode | Phone Number | | Organization | | | | + + + + + | [facility] | [address] | [place] [address] | | | SERVICES, [place] | [address] | | | + + + + + CARDIOLOGY (12/11/2018) + + + | Narrative | Performed At | + + + | | | + + + CARDIOLOGY (12/11/2018) + + + | Narrative | Performed At | + + + | | | + + + CAPILLARY BLOOD GLUCOSE (NO CHG), POC (12/10/2018 11:49 PM) + +---------+ + + | Component | Value | Ref Range | Performed At | + +---------+ + + | BLOOD GLUCOSE, POC | 128 (H) | 60 - 99 mg/dL | [facility] | | | | | [facility] | | | | | CARE TESTS | + +---------+ + + + + + + + | Performing | Address | City/State/Zipcode | Phone Number | | Organization | | | | + + + + + | [facility] | [address] | [place], [place] | | | [facility] | [address] | [address] | | | TESTS | | | | + + + + + CAPILLARY BLOOD GLUCOSE (NO CHG), POC (12/10/2018 6:13 PM) + +---------+ + + | Component | Value | Ref Range | Performed At | + +---------+ + + | BLOOD GLUCOSE, POC | 113 (H) | 60 - 99 mg/dL | [facility] | | | | | [place] OF | | | | | CARE TESTS | + +---------+ + + + + + + + | Performing | Address | City/State/Zipcode | Phone Number | | Organization | | | | + + + + + | [facility] | [address] | [place], [place] | | | [facility] | [address] | [address] | | | TESTS | | | | + + + + + CAPILLARY BLOOD GLUCOSE (NO CHG), POC (12/10/2018 12:03 PM) + +---------+ + + | Component | Value | Ref Range | Performed At | + +---------+ + + | BLOOD GLUCOSE, POC | 121 (H) | 60 - 99 mg/dL | [facility] | | | | | [facility] | | | | | CARE TESTS | + +---------+ + + + + + + + | Performing | Address | City/State/Zipcode | Phone Number | | Organization | | | | + + + + + | [facility] | [address] | [place], [place] | | | [facility] | [address] | [address] | | | TESTS | | | | + + + + + CBC (HEMOGRAM) ONLY (12/10/2018 6:13 AM) + + + + + | Component | Value | Ref Range | Performed At | + + + + + | WHITE CELL COUNT | 9.93 | 3.50 - 10.80 K/cu mm | [facility] | | | | | SERVICES, CORE | + + + + + | RED CELL COUNT | 2.74 (L) | 4.00 - 5.20 M/cu mm | [facility] | | | | | SERVICES, CORE | + + + + + | HEMOGLOBIN | 8.9 (L) | 12.0 - 16.0 g/dL | [facility] | | | | | SERVICES, CORE | + + + + + | HEMATOCRIT | 28.0 (L) | 36.0 - 46.0 % | [facility] | | | | | SERVICES, CORE | + + + + + | MCV | 102.2 (H) | 80.0 - 100.0 fL | [facility] | | | | | SERVICES, CORE | + + + + + | MCHC | 31.8 (L) | 32.0 - 36.0 g/dL | [facility] | | | | | SERVICES, CORE | + + + + + | RDW SD | 47.3 (H) | 35.1 - 46.3 fL | [facility] | | | | | SERVICES, CORE | + + + + + | PLATELET COUNT | 341 | 150 - 400 K/cu mm | [facility] | | | | | SERVICES, CORE | + + + + + | MPV | 8.9 (L) | 9.7 - 12.3 fL | [facility] | | | | | SERVICES, CORE | + + + + + | NRBC% | 0.0 | 0.0 - 0.3 % | [facility] | | | | | SERVICES, CORE | + + + + + | NRBC# | 0.00 | 0.00 - 0.02 K/cu mm | [facility] | | | | | SERVICES, CORE | + + + + + + + | Specimen | + + | Blood - Blood | + + + + + + + | Performing | Address | City/State/Zipcode | Phone Number | | Organization | | | | + + + + + | [facility] | [address] | [place] [address] | | | SERVICES, CORE | [address] | | | + + + + + MAGNESIUM, PLASMA (12/10/2018 6:13 AM) + +-------+ + + | Component | Value | Ref Range | Performed At | + +-------+ + + | MAGNESIUM,PLASMA | 2.4 | 1.6 - 2.6 mg/dL | [facility] | | | | | [facility] | + +-------+ + + + + | Specimen | + + | Blood - Blood | + + + + + + + | Performing | Address | City/State/Zipcode | Phone Number | | Organization | | | | + + + + + | [facility] | [address] | [place] [address] | | | SERVICES, CORE | [address] | | | + + + + + RENAL FUNCTION SET (NA,K,CL,CO2,BUN,CREAT,GLUC,CA,PHOS,ALB ) (12/10/2018 6:13 AM) + + + + + | Component | Value | Ref Range | Performed At | + + + + + | GLUCOSE, PLASMA | 135 (H) | 70 - 99 mg/dL | [facility] | | (LAB) | | | SERVICES, CORE | + + + + + | BUN, PLASMA (LAB) | 14 | 6 - 20 mg/dL | [facility] | | | | | SERVICES, CORE | + + + + + | CREATININE PLASMA | 0.55 (L) | 0.60 - 1.10 mg/dL | [facility] | | (LAB) | | | SERVICES, CORE | + + + + + | EGFR - | >60 | >60 mL/min | [facility] | | [place] | | | SADE, CORE | + + + + + | EGFR NON | >60 | >60 mL/min | [facility] | | -[place] | | | SADE, CORE | + + + + + | SODIUM, PLASMA (LAB) | 139 | 136 - 145 mmol/L | [facility] | | | | | SERVICES, CORE | + + + + + | POTASSIUM, PLASMA | 4.4 | 3.4 - 5.0 mmol/L | [facility] | | (LAB) | | | SERVICES, CORE | + + + + + | CHLORIDE, PLASMA | 105 | 97 - 108 mmol/L | [facility] | | (LAB) | | | SERVICES, CORE | + + + + + | TOTAL CO2, PLASMA | 29 | 21 - 32 mmol/L | [facility] | | (LAB) | | | SERVICES, CORE | + + + + + | CALCIUM, PLASMA | 7.8 (L) | 8.6 - 10.2 mg/dL | [facility] | | (LAB) | | | SERVICES, CORE | + + + + + | CALCIUM(ALB | 9.4 | 8.6 - 10.2 mg/dL | [facility] | | CORRECTED) | | | SERVICES, CORE | + + + + + | ALBUMIN, PLASMA | 2.0 (L) | 3.5 - 4.7 g/dL | [facility] | | (LAB) | | | [facility] | + + + + + | PHOSPHORUS, PLASMA | 2.8 | 2.4 - 4.7 mg/dL | [facility] | | (LAB) | | | [facility], CORE | + + + + + | POTASSIUM CMNT | No Hemo | | [facility] | | | | | SERVICES, CORE | + + + + + | ANION GAP | 5 | 4 - 11 mmol/L | [facility] | | | | | [facility] [place] [place] | + + + + + | ANION GAP(ALB | 10 | 4 - 11 mmol/L | [facility] | | CORRECTED) | | | SERVICES, CORE | + + + + + + + | Specimen | + + | Blood - Blood | + + + + + | Narrative | Performed At | + + + | GFR is estimated using the MDRD equation recommended by the | [facility] | | National Kidney Disease Education Program. Estimated GFR | LABORATORY | | Interpretive Information: <60 mL/min/1.73 sq | SERVICES, CORE | | m Chronic Kidney Disease <15 mL/min/1.73 | | | sq m Kidney Failure Estimated GFR greater | | | than 60 mL/min/1.73 sq m is of limited clinical value. The MDRD | | | equation is not valid in the following situations: - Patients under | | | 18 years of age - Severe malnutrition or obesity - Vegetarian diet | | | - Rapidly changing kidney function - Amputees, paraplegics, or other | | | muscle-wasting diseses | | + + + + + + + + | Performing | Address | City/State/Zipcode | Phone Number | | Organization | | | | + + + + + | [facility] | [phone] | [place] [address] | | | [place], [place] | [address] | | | + + + + + CARDIOLOGY (12/10/2018) + + + | Narrative | Performed At | + + + | | | + + + MAGNESIUM, PLASMA (12/09/2018 12:17 PM) + +-------+ + + | Component | Value | Ref Range | Performed At | + +-------+ + + | MAGNESIUM,PLASMA | 2.1 | 1.6 - 2.6 mg/dL | [facility] | | | | | SERVICES, CORE | + +-------+ + + + + | Specimen | + + | Blood - Blood | + + + + + + + | Performing | Address | City/State/Zipcode | Phone Number | | Organization | | | | + + + + + | [facility] | [phone] | [place] [address] | | | SERVICES, CORE | [address] | | | + + + + + RENAL FUNCTION SET (NA,K,CL,CO2,BUN,CREAT,GLUC,CA,PHOS,ALB ) (12/09/2018 12:17 PM) + + + + + | Component | Value | Ref Range | Performed At | + + + + + | GLUCOSE, PLASMA | 92 | 70 - 99 mg/dL | [facility] | | (LAB) | | | SERVICES, CORE | + + + + + | BUN, PLASMA (LAB) | 8 | 6 - 20 mg/dL | [facility] | | | | | SERVICES, CORE | + + + + + | CREATININE PLASMA | 0.47 (L) | 0.60 - 1.10 mg/dL | [facility] | | (LAB) | | | SERVICES, CORE | + + + + + | EGFR - | >60 | >60 mL/min | [facility] | | [place] | | | [place], CORE | + + + + + | EGFR NON | >60 | >60 mL/min | [facility] | | -[place] | | | [place], CORE | + + + + + | SODIUM, PLASMA (LAB) | 143 | 136 - 145 mmol/L | [facility] | | | | | SERVICES, CORE | + + + + + | POTASSIUM, PLASMA | 3.3 (L) | 3.4 - 5.0 mmol/L | [facility] | | (LAB) | | | SERVICES, CORE | + + + + + | CHLORIDE, PLASMA | 110 (H) | 97 - 108 mmol/L | [facility] | | (LAB) | | | SERVICES, CORE | + + + + + | TOTAL CO2, PLASMA | 27 | 21 - 32 mmol/L | [facility] | | (LAB) | | | SERVICES, CORE | + + + + + | CALCIUM, PLASMA | 7.0 (L) | 8.6 - 10.2 mg/dL | [facility] | | (LAB) | | | SERVICES, CORE | + + + + + | CALCIUM(ALB | 9.0 | 8.6 - 10.2 mg/dL | [facility] | | CORRECTED) | | | SERVICES, CORE | + + + + + | ALBUMIN, PLASMA | 1.5 (L) | 3.5 - 4.7 g/dL | [facility] | | (LAB) | | | SERVICES, [facility] | + + + + + | PHOSPHORUS, PLASMA | 1.6 (L) | 2.4 - 4.7 mg/dL | [facility] | | (LAB) | | | [facility] | + + + + + | POTASSIUM CMNT | No Hemo | | [facility] | | | | | SERVICES, CORE | + + + + + | ANION GAP | 6 | 4 - 11 mmol/L | [facility] | | | | | SERVICES, CORE | + + + + + | ANION GAP(ALB | 12 (H) | 4 - 11 mmol/L | [facility] | | CORRECTED) | | | SERVICES, CORE | + + + + + + + | Specimen | + + | Blood - Blood | + + + + + | Narrative | Performed At | + + + | GFR is estimated using the MDRD equation recommended by the | [facility] | | National Kidney Disease Education Program. Estimated GFR | LABORATORY | | Interpretive Information: <60 mL/min/1.73 sq | SERVICES, CORE | | m Chronic Kidney Disease <15 mL/min/1.73 | | | sq m Kidney Failure Estimated GFR greater | | | than 60 mL/min/1.73 sq m is of limited clinical value. The MDRD | | | equation is not valid in the following situations: - Patients under | | | 18 years of age - Severe malnutrition or obesity - Vegetarian diet | | | - Rapidly changing kidney function - Amputees, paraplegics, or other | | | muscle-wasting diseses | | + + + + + + + + | Performing | Address | City/State/Zipcode | Phone Number | | Organization | | | | + + + + + | [facility] | [address] | [place] [address] | | | SERVICES, [place] | [address] | | | + + + + + CBC (HEMOGRAM) ONLY (12/09/2018 6:35 AM) + + + + + | Component | Value | Ref Range | Performed At | + + + + + | WHITE CELL COUNT | 7.77 | 3.50 - 10.80 K/cu mm | [facility] | | | | | SERVICES, CORE | + + + + + | RED CELL COUNT | 2.60 (L) | 4.00 - 5.20 M/cu mm | [facility] | | | | | SERVICES, CORE | + + + + + | HEMOGLOBIN | 8.4 (L) | 12.0 - 16.0 g/dL | [facility] | | | | | SERVICES, CORE | + + + + + | HEMATOCRIT | 26.5 (L) | 36.0 - 46.0 % | [facility] | | | | | SERVICES, CORE | + + + + + | MCV | 101.9 (H) | 80.0 - 100.0 fL | [facility] | | | | | SERVICES, CORE | + + + + + | MCHC | 31.7 (L) | 32.0 - 36.0 g/dL | [facility] | | | | | SERVICES, CORE | + + + + + | RDW SD | 46.3 | 35.1 - 46.3 fL | [facility] | | | | | SERVICES, CORE | + + + + + | PLATELET COUNT | 341 | 150 - 400 K/cu mm | [facility] | | | | | SERVICES, CORE | + + + + + | MPV | 9.0 (L) | 9.7 - 12.3 fL | [facility] | | | | | SERVICES, CORE | + + + + + | NRBC% | 0.0 | 0.0 - 0.3 % | [facility] | | | | | SERVICES, CORE | + + + + + | NRBC# | 0.00 | 0.00 - 0.02 K/cu mm | [facility] | | | | | SERVICES, CORE | + + + + + + + | Specimen | + + | Blood - Blood | + + + + + + + | Performing | Address | City/State/Zipcode | Phone Number | | Organization | | | | + + + + + | [facility] | [address] | [place] [address] | | | SERVICES, CORE | [address] | | | + + + + + MAGNESIUM, PLASMA (12/09/2018 6:35 AM) + +-------+ + + | Component | Value | Ref Range | Performed At | + +-------+ + + | MAGNESIUM,PLASMA | 2.4 | 1.6 - 2.6 mg/dL | [facility] | | | | | [facility] | + +-------+ + + + + | Specimen | + + | Blood - Blood | + + + + + | [...] | + + + + + | [facility] | [address] | [place] [address] | | | SERVICES, CORE | [address] | | | + + + + + POTASSIUM, PLASMA (12/09/2018 6:35 AM) + +---------+ + + | Component | Value | Ref Range | Performed At | + +---------+ + + | POTASSIUM, PLASMA | 3.7 | 3.4 - 5.0 mmol/L | [facility] | | (LAB) | | | [facility], CORE | + +---------+ + + | POTASSIUM CMNT | No Hemo | | [facility] | | | | | SERVICES, CORE | + +---------+ + + + + | Specimen | + + | Blood - Blood | + + + + + | [...] | + + + + + | [facility] | [address] | [place] [address] | | | SERVICES, [facility] | [address] | | | + + + + + X-RAY PORTABLE CHEST 1 VIEW (12/09/2018 5:41 AM) + + + | Narrative | Performed At | + + + | EXAM: [place] CHEST 1 VIEW HISTORY: Shortness of breath. 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 COMPARISON: Yesterday [...] Parmjit Escobar MD 12/09/2018 7:44 AM Preliminary: | | | Parmjit Escobar MD Dictation initiated: Parmjit Escobar MD | | | 12/09/2018 7:42 AM | | + + + + + | Procedure Note | + + | Service Dilcia, Radiant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 - 12/09/2018 7:45 AM PDT EXAM: OK CHEST 1 | | VIEW HISTORY: Shortness [...] | | + +---------+ + + CARDIOLOGY (12/09/2018) + + + | Narrative | Performed At | + + + | | | + + + MAGNESIUM, PLASMA (12/08/2018 11:16 PM) + +-------+ + + | Component | Value | Ref Range | Performed At | + +-------+ + + | MAGNESIUM,PLASMA | 1.8 | 1.6 - 2.6 mg/dL | [facility] | | | | | SERVICES, CORE | + +-------+ + + + + | Specimen | + + | Blood - Blood | + + + + + + + | Performing | Address | City/State/Zipcode | Phone Number | | Organization | | | | + + + + + | [facility] | [address] | [place] [address] | | | [place] | [address] | | | + + + + + RENAL FUNCTION SET (NA,K,CL,CO2,BUN,CREAT,GLUC,CA,PHOS,ALB ) (12/08/2018 11:16 PM) + + + + + | Component | Value | Ref Range | Performed At | + + + + + | GLUCOSE, PLASMA | 98 | 70 - 99 mg/dL | [facility] | | (LAB) | | | SERVICES, CORE | + + + + + | BUN, PLASMA (LAB) | 9 | 6 - 20 mg/dL | [facility] | | | | | SERVICES, CORE | + + + + + | CREATININE PLASMA | 0.54 (L) | 0.60 - 1.10 mg/dL | [facility] | | (LAB) | | | SERVICES, CORE | + + + + + | EGFR - | >60 | >60 mL/min | [facility] | | [place] | | | SERVICES, CORE | + + + + + | EGFR NON | >60 | >60 mL/min | [facility] | | -[place] | | | SERVICES, CORE | + + + + + | SODIUM, PLASMA (LAB) | 140 | 136 - 145 mmol/L | [facility] | | | | | SERVICES, CORE | + + + + + | POTASSIUM, PLASMA | 3.2 (L) | 3.4 - 5.0 mmol/L | [facility] | | (LAB) | | | SERVICES, CORE | + + + + + | CHLORIDE, PLASMA | 104 | 97 - 108 mmol/L | [facility] | | (LAB) | | | SERVICES, CORE | + + + + + | TOTAL CO2, PLASMA | 32 | 21 - 32 mmol/L | [facility] | | (LAB) | | | SADE, [facility] | + + + + + | CALCIUM, PLASMA | 8.2 (L) | 8.6 - 10.2 mg/dL | [facility] | | (LAB) | | | SADE, [facility] | + + + + + | CALCIUM(ALB | 9.7 | 8.6 - 10.2 mg/dL | [facility] | | CORRECTED) | | | SADE, [facility] | + + + + + | ALBUMIN, PLASMA | 2.1 (L) | 3.5 - 4.7 g/dL | [facility] | | (LAB) | | | SERVICES, [facility] | + + + + + | PHOSPHORUS, PLASMA | 2.4 | 2.4 - 4.7 mg/dL | [facility] | | (LAB) | | | [facility] | + + + + + | POTASSIUM CMNT | No Hemo | | [facility] | | | | | SERVICES, CORE | + + + + + | ANION GAP | 4 | 4 - 11 mmol/L | [facility] | | | | | SERVICES, CORE | + + + + + | ANION GAP(ALB | 8 | 4 - 11 mmol/L | [facility] | | CORRECTED) | | | SERVICES, CORE | + + + + + + + | Specimen | + + | Blood - Blood | + + + + + | Narrative | Performed At | + + + | GFR is estimated using the MDRD equation recommended by the | [facility] | | National Kidney Disease Education Program. Estimated GFR | LABORATORY | | Interpretive Information: <60 mL/min/1.73 sq | SERVICES, CORE | | m Chronic Kidney Disease <15 mL/min/1.73 | | | sq m Kidney Failure Estimated GFR greater | | | than 60 mL/min/1.73 sq m is of limited clinical value. The MDRD | | | equation is not valid in the following situations: - Patients under | | | 18 years of age - Severe malnutrition or obesity - Vegetarian diet | | | - Rapidly changing kidney function - Amputees, paraplegics, or other | | | muscle-wasting diseses | | + + + + + + + + | Performing | Address | City/State/Zipcode | Phone Number | | Organization | | | | + + + + + | [facility] | [address] | [place] [address] | | | [place] | [address] | | | + + + + + CAPILLARY BLOOD GLUCOSE (NO CHG), POC (12/08/2018 8:52 PM) + +---------+ + + | Component | Value | Ref Range | Performed At | + +---------+ + + | BLOOD GLUCOSE, POC | 108 (H) | 60 - 99 mg/dL | [facility] | | | | | [facility] | | | | | CARE TESTS | + +---------+ + + + + + + + | Performing | Address | City/State/Zipcode | Phone Number | | Organization | | | | + + + + + | [facility] | [address] | [place], [place] | | | [facility] | [address] | [address] | | | TESTS | | | | + + + + + MAGNESIUM, PLASMA (12/08/2018 12:56 PM) + +-------+ + + | Component | Value | Ref Range | Performed At | + +-------+ + + | MAGNESIUM,PLASMA | 2.2 | 1.6 - 2.6 mg/dL | [facility] | | | | | SERVICES, CORE | + +-------+ + + + + | Specimen | + + | Blood - Blood | + + + + + + + | Performing | Address | City/State/Zipcode | Phone Number | | Organization | | | | + + + + + | [facility] | [address] | [place] [address] | | | SERVICES, CORE | [address] | | | + + + + + RENAL FUNCTION SET (NA,K,CL,CO2,BUN,CREAT,GLUC,CA,PHOS,ALB ) (12/08/2018 12:56 PM) + + + + + | Component | Value | Ref Range | Performed At | + + + + + | GLUCOSE, PLASMA | 106 (H) | 70 - 99 mg/dL | [facility] | | (LAB) | | | SERVICES, CORE | + + + + + | BUN, PLASMA (LAB) | 12 | 6 - 20 mg/dL | [facility] | | | | | SERVICES, CORE | + + + + + | CREATININE PLASMA | 0.51 (L) | 0.60 - 1.10 mg/dL | [facility] | | (LAB) | | | SADE, CORE | + + + + + | EGFR - | >60 | >60 mL/min | [facility] | | [place] | | | SERVICES, CORE | + + + + + | EGFR NON | >60 | >60 mL/min | [facility] | | -[place] | | | SERVICES, CORE | + + + + + | SODIUM, PLASMA (LAB) | 141 | 136 - 145 mmol/L | [facility] | | | | | SERVICES, CORE | + + + + + | POTASSIUM, PLASMA | 4.3 | 3.4 - 5.0 mmol/L | [facility] | | (LAB) | | | SERVICES, CORE | + + + + + | CHLORIDE, PLASMA | 109 (H) | 97 - 108 mmol/L | [facility] | | (LAB) | | | SERVICES, CORE | + + + + + | TOTAL CO2, PLASMA | 28 | 21 - 32 mmol/L | [facility] | | (LAB) | | | SERVICES, CORE | + + + + + | CALCIUM, PLASMA | 8.6 | 8.6 - 10.2 mg/dL | [facility] | | (LAB) | | | SERVICES, CORE | + + + + + | CALCIUM(ALB | 9.8 | 8.6 - 10.2 mg/dL | [facility] | | CORRECTED) | | | SERVICES, CORE | + + + + + | ALBUMIN, PLASMA | 2.5 (L) | 3.5 - 4.7 g/dL | [facility] | | (LAB) | | | SERVICES, CORE | + + + + + | PHOSPHORUS, PLASMA | 2.1 (L) | 2.4 - 4.7 mg/dL | [facility] | | (LAB) | | | SERVICES, CORE | + + + + + | POTASSIUM CMNT | No Hemo | | [facility] | | | | | SERVICES, CORE | + + + + + | ANION GAP | 4 | 4 - 11 mmol/L | [facility] | | | | | SERVICES, CORE | + + + + + | ANION GAP(ALB | 7 | 4 - 11 mmol/L | [facility] | | CORRECTED) | | | SERVICES, CORE | + + + + + + + | Specimen | + + | Blood - Blood | + + + + + | Narrative | Performed At | + + + | GFR is estimated using the MDRD equation recommended by the | [facility] | | National Kidney Disease Education Program. Estimated GFR | LABORATORY | | Interpretive Information: <60 mL/min/1.73 sq | SERVICES, CORE | | m Chronic Kidney Disease <15 mL/min/1.73 | | | sq m Kidney Failure Estimated GFR greater | | | than 60 mL/min/1.73 sq m is of limited clinical value. The MDRD | | | equation is not valid in the following situations: - Patients under | | | 18 years of age - Severe malnutrition or obesity - Vegetarian diet | | | - Rapidly changing kidney function - Amputees, paraplegics, or other | | | muscle-wasting diseses | | + + + + + + + + | Performing | Address | City/State/Zipcode | Phone Number | | Organization | | | | + + + + + | [facility] | [address] | [place] [address] | | | [place] ST[place] | [address] | | | + + + + + RENAL FUNCTION SET (NA,K,CL,CO2,BUN,CREAT,GLUC,CA,PHOS,ALB ) (12/08/2018 6:46 AM) + + + + + | Component | Value | Ref Range | Performed At | + + + + + | GLUCOSE, PLASMA | 117 (H) | 70 - 99 mg/dL | [facility] | | (LAB) | | | SERVICES, CORE | + + + + + | BUN, PLASMA (LAB) | 12 | 6 - 20 mg/dL | [facility] | | | | | SERVICES, CORE | + + + + + | CREATININE PLASMA | 0.46 (L) | 0.60 - 1.10 mg/dL | [facility] | | (LAB) | | | SERVICES, CORE | + + + + + | EGFR - | >60 | >60 mL/min | [facility] | | [place] | | | SERVICES, CORE | + + + + + | EGFR NON | >60 | >60 mL/min | [facility] | | -[place] | | | SERVICES, CORE | + + + + + | SODIUM, PLASMA (LAB) | 146 (H) | 136 - 145 mmol/L | [facility] | | | | | SERVICES, CORE | + + + + + | POTASSIUM, PLASMA | 2.9 (L) | 3.4 - 5.0 mmol/L | [facility] | | (LAB) | | | SERVICES, CORE | + + + + + | CHLORIDE, PLASMA | 120 (H) | 97 - 108 mmol/L | [facility] | | (LAB) | | | SERVICES, CORE | + + + + + | TOTAL CO2, PLASMA | 21 | 21 - 32 mmol/L | [facility] | | (LAB) | | | SERVICES, CORE | + + + + + | CALCIUM, PLASMA | 5.8 (LL) | 8.6 - 10.2 mg/dL | [facility] | | (LAB) | | | SERVICES, CORE | + + + + + | CALCIUM(ALB | 7.9 (L) | 8.6 - 10.2 mg/dL | [facility] | | CORRECTED) | | | SERVICES, CORE | + + + + + | ALBUMIN, PLASMA | 1.4 (L) | 3.5 - 4.7 g/dL | [facility] | | (LAB) | | | SERVICES, CORE | + + + + + | PHOSPHORUS, PLASMA | 0.5 (LL) | 2.4 - 4.7 mg/dL | [facility] | | (LAB) | | | SERVICES, CORE | + + + + + | POTASSIUM CMNT | No Hemo | | [facility] | | | | | SERVICES, CORE | + + + + + | ANION GAP | 5 | 4 - 11 mmol/L | [facility] | | | | | SERVICES, CORE | + + + + + | ANION GAP(ALB | 11 | 4 - 11 mmol/L | [facility] | | CORRECTED) | | | SERVICES, CORE | + + + + + + + | Specimen | + + | Blood - Blood | + + + + + | Narrative | Performed At | + + + | GFR is estimated using the MDRD equation recommended by the | [facility] | | National Kidney Disease Education Program. Estimated GFR | LABORATORY | | Interpretive Information: <60 mL/min/1.73 sq | SERVICES, CORE | | m Chronic Kidney Disease <15 mL/min/1.73 | | | sq m Kidney Failure Estimated GFR greater | | | than 60 mL/min/1.73 sq m is of limited clinical value. The MDRD | | | equation is not valid in the following situations: - Patients under | | | 18 years of age - Severe malnutrition or obesity - Vegetarian diet | | | - Rapidly changing kidney function - Amputees, paraplegics, or other | | | muscle-wasting diseses | | + + + + + + + + | Performing | Address | City/State/Zipcode | Phone Number | | Organization | | | | + + + + + | [facility] | [address] | [place] [address] | | | [facility] | [address] | | | + + + + + X-RAY PORTABLE CHEST 1 VIEW (12/08/2018 4:58 AM) + + + | Narrative | Performed At | + + + | EXAM: OK CHEST 1 VIEW HISTORY: SoB COMPARISON: Chest | [facility] | | radiograph from 12/07/2018. FINDINGS: Stable [...] | | | presented. Final signature: Charli Maddox MD 12/08/2018 10:58 AM | | | Preliminary: Charli Maddox MD Dictation initiated: Charli Maddox MD 12/08/2018 10:55 AM | | + + + + + | Procedure Note | + + | 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, Radiant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 - 12/08/2018 10:59 AM PDT EXAM: OK CHEST 1 | | VIEW HISTORY: SoB [...] now presented. Final | | signature: Charli Maddox MD 12/08/2018 10:58 AM Preliminary: Charli Maddox MD Dictation | | initiated: Charli Maddox MD 12/08/2018 10:55 AM | |IMPRESSION: | [...] presented. | | | |Final signature: Charli Maddox MD 12/08/2018 10:58 AM | |Preliminary: Charli Maddox MD | |Dictation initiated: Charli Maddox MD 12/08/2018 10:55 AM | + + + +---------+ + + | Performing | Address | City/State/Zipcode | Phone Number | | Organization | | | | + +---------+ + + | [facility] | | | | | VOICE RECOGNITION 2 | | | | + +---------+ + + MAGNESIUM, PLASMA (12/08/2018 4:29 AM) + +-------+ + + | Component | Value | Ref Range | Performed At | + +-------+ + + | MAGNESIUM,PLASMA | 2.0 | 1.6 - 2.6 mg/dL | [facility] | | | | | SERVICES, CORE | + +-------+ + + + + | Specimen | + + | Blood - Blood | + + + + + + + | Performing | Address | City/State/Zipcode | Phone Number | | Organization | | | | + + + + + | [facility] | [address] | [place] [address] | | | SERVICES, [place] | [address] | | | + + + + + RENAL FUNCTION SET (NA,K,CL,CO2,BUN,CREAT,GLUC,CA,PHOS,ALB ) (12/08/2018 4:29 AM) + + + + + | Component | Value | Ref Range | Performed At | + + + + + | GLUCOSE, PLASMA | 153 (H) | 70 - 99 mg/dL | [facility] | | (LAB) | | | SERVICES, CORE | + + + + + | BUN, PLASMA (LAB) | 13 | 6 - 20 mg/dL | [facility] | | | | | SERVICES, CORE | + + + + + | CREATININE PLASMA | 0.55 (L) | 0.60 - 1.10 mg/dL | [facility] | | (LAB) | | | SERVICES, CORE | + + + + + | EGFR - | >60 | >60 mL/min | [facility] | | [place] | | | SERVICES, CORE | + + + + + | EGFR NON | >60 | >60 mL/min | [facility] | | -[place] | | | SERVICES, CORE | + + + + + | SODIUM, PLASMA (LAB) | 143 | 136 - 145 mmol/L | [facility] | | | | | SERVICES, CORE | + + + + + | POTASSIUM, PLASMA | 3.9 | 3.4 - 5.0 mmol/L | [facility] | | (LAB) | | | SERVICES, CORE | + + + + + | CHLORIDE, PLASMA | 111 (H) | 97 - 108 mmol/L | [facility] | | (LAB) | | | SERVICES, CORE | + + + + + | TOTAL CO2, PLASMA | 27 | 21 - 32 mmol/L | [facility] | | (LAB) | | | SERVICES, CORE | + + + + + | CALCIUM, PLASMA | 8.1 (L) | 8.6 - 10.2 mg/dL | [facility] | | (LAB) | | | SERVICES, CORE | + + + + + | CALCIUM(ALB | 9.6 | 8.6 - 10.2 mg/dL | [facility] | | CORRECTED) | | | SERVICES, CORE | + + + + + | ALBUMIN, PLASMA | 2.1 (L) | 3.5 - 4.7 g/dL | [facility] | | (LAB) | | | SERVICES, CORE | + + + + + | PHOSPHORUS, PLASMA | 0.9 (LL) | 2.4 - 4.7 mg/dL | [facility] | | (LAB) | | | SERVICES, CORE | + + + + + | POTASSIUM CMNT | No Hemo | | [facility] | | | | | SERVICES, [facility] | + + + + + | ANION GAP | 5 | 4 - 11 mmol/L | [facility] | | | | | SERVICES, CORE | + + + + + | ANION GAP(ALB | 9 | 4 - 11 mmol/L | [facility] | | CORRECTED) | | | SERVICES, CORE | + + + + + + + | Specimen | + + | Blood - Blood | + + + + + | Narrative | Performed At | + + + | GFR is estimated using the MDRD equation recommended by the | [facility] | | National Kidney Disease Education Program. Estimated GFR | LABORATORY | | Interpretive Information: <60 mL/min/1.73 sq | SERVICES, CORE | | m Chronic Kidney Disease <15 mL/min/1.73 | | | sq m Kidney Failure Estimated GFR greater | | | than 60 mL/min/1.73 sq m is of limited clinical value. The MDRD | | | equation is not valid in the following situations: - Patients under | | | 18 years of age - Severe malnutrition or obesity - Vegetarian diet | | | - Rapidly changing kidney function - Amputees, paraplegics, or other | | | muscle-wasting diseses | | + + + + + + + + | Performing | Address | City/State/Zipcode | Phone Number | | Organization | | | | + + + + + | [facility] | [address] | [place] [address] | | | KOKI STUART | [address] | | | + + + + + CBC (HEMOGRAM) ONLY (12/08/2018 4:28 AM) + + + + + | Component | Value | Ref Range | Performed At | + + + + + | WHITE CELL COUNT | 11.87 (H) | 3.50 - 10.80 K/cu mm | [facility] | | | | | SERVICES, CORE | + + + + + | RED CELL COUNT | 2.51 (L) | 4.00 - 5.20 M/cu mm | [facility] | | | | | SERVICES, CORE | + + + + + | HEMOGLOBIN | 8.2 (L) | 12.0 - 16.0 g/dL | [facility] | | | | | SERVICES, CORE | + + + + + | HEMATOCRIT | 25.8 (L) | 36.0 - 46.0 % | [facility] | | | | | SERVICES, CORE | + + + + + | MCV | 102.8 (H) | 80.0 - 100.0 fL | [facility] | | | | | SERVICES, CORE | + + + + + | MCHC | 31.8 (L) | 32.0 - 36.0 g/dL | [facility] | | | | | SERVICES, CORE | + + + + + | RDW SD | 46.2 | 35.1 - 46.3 fL | [facility] | | | | | SERVICES, CORE | + + + + + | PLATELET COUNT | 261 | 150 - 400 K/cu mm | [facility] | | | | | SERVICES, CORE | + + + + + | MPV | 9.3 (L) | 9.7 - 12.3 fL | [facility] | | | | | SERVICES, CORE | + + + + + | NRBC% | 0.0 | 0.0 - 0.3 % | [facility] | | | | | SERVICES, CORE | + + + + + | NRBC# | 0.00 | 0.00 - 0.02 K/cu mm | [facility] | | | | | SERVICES, CORE | + + + + + + + | Specimen | + + | Blood - Blood | + + + + + + + | Performing | Address | City/State/Zipcode | Phone Number | | Organization | | | | + + + + + | [facility] | [address] | [place] [address] | | | SERVICES, CORE | [address] | | | + + + + + PEG (PERCUTANEOUS ENDOSCOPIC GASTROSTOMY) (12/07/2018 3:41 PM) + + + | Narrative | Performed At | + + + | Derrick Handley MD 12/15/2018 5:05 PM Procedure | | | Note: Percutaneous Endoscopic Gastrostomy (PEG) DATE OF | | | PROCEDURE 12/07/2018 Staff: PAULA YBARRA, DERRICK Resident: | | | Dereck Rordiguez MD, Doris Weldon MD Anesthesia: GA | | | with ETT Indication: Need for prolonged enteral access. | | | Consent: Discussion of the risks, benefits, and alternatives was had | | | with the patient prior to the procedure. All questions were | | | satisfactorily answered and a signed consent form for this procedure | | | was obtained and place on chart. Procedure Details: The patient | | | was identified in the preop holding area, and consent was verified. | | | She was brought back to the operating room, laid supine on the | | | stretcher. Bilateral SCDs were placed. General endotracheal | | | anesthesia was induced smoothly. An esophagogastroduodenoscope | | | (EGD) was carefully introduced into the patient | | [...] suctioned out and the gastroscope was withdrawn. | | | Findings: There were no changes to vital signs. Patient did | | | tolerate procedure well. EBL: Minimal Complications: | | | None immediate Dr. Handley was present during this operation. | | | Dereck Rodriguez MD [facility] [address] [facility] | | | [place] [address] | | + + + PROCEDURE NOTE (12/07/2018 3:05 PM) + + + | Narrative | Performed At | + + + | Alma Cat RN 12/07/2018 3:06 PM Midline Insertion | | | Documentation Note Today's date: 12-07-18 Start Time: At | | | 1000, prior to the beginning of the procedure, the team paused to | | | verify the patient's identity, the procedure to be performed and the | | | correct side/site. The patient was positioned | | | appropriately. Any safety precautions were addressed. Patient | | | Location (Unit/Room#): 12k rm 17 Indication for | | | Midline: Difficult access Procedure Details: Masks were worn | | | by all members in the room where the procedure was | | | performed. Prior to initiating the procedure, the practitioner | | | thoroughly washed their hands and donned sterile gloves. The | | | procedure was performed using sterile barrier precautions. An | | | ultrasound was used for pre-procedure identification of the | | | patient's vascular anatomy. Venipuncture was performed under | | | direct ultrasound guidance. The arm was prepped and draped in the | | | procedural sterile fashion and the sterile field was maintained at | | | all times. The insertion site was prepped with Christo cloth and | | | Chloraprep. Anesthesia was obtained with 1 mL of buffered 1% | | | Lidocaine. Midline Catheter Insertion: The left brachial vein | | | was cannulated with dark red, non-pulsatile blood return. A 18g | | | 10cm PowerGlide catheter was placed on the first attempt. Midline | | | lot number [id number]; there was excellent blood return. The | | | catheter was flushed with 20 mL of Normal Saline, an antimicrobial | | | disc was placed at the insertion site and a catheter securement | | | device was utilized. Complications: none Placed by: Alma | | | FARIDA Cat | | + + + VAT: PICC INSERTION W/US (12/07/2018 11:57 AM) + + + | Narrative | Performed At | + + + | See procedure note. | [facility] | | | RADIOLOGY | + + + + +---------+ + + | Performing | Address | [facility]/State/Zipcode | Phone Number | | Organization | | | | + +---------+ + + | [facility] | | | | + +---------+ + + TRANSTHORACIC ECHOCARDIOGRAM, ADULT (12/07/2018 8:45 AM) + + + + + | Component | Value | Ref Range | Performed At | + + + + + | AOV VMN (AORTIC | 4.0 | | [facility] | | VALVE) | | | CARDIOLOGY | + + + + + | BIPLANE, EF | 69 | | [facility] | | | | | CARDIOLOGY | + + + + + | EJECTION FRACTION | 55 to 60 | | [facility] | | | | | CARDIOLOGY | + + + + + | LA DIMENSION | 2.4 | | [facility] | | | | | CARDIOLOGY | + + + + + | LVIDD | 3.7 | | [facility] | | | | | CARDIOLOGY | + + + + + | MV A VMAX | 0.6 | | [facility] | | | | | CARDIOLOGY | + + + + + | MV E? | 0.1 | | [facility] | | | | | CARDIOLOGY | + + + + + | MV E VMAX | 0.9 | | [facility] | | | | | CARDIOLOGY | + + + + + | MV E/E' (MITRAL | 11.0 | | [facility] | | VALVE) | | | CARDIOLOGY | + + + + + | MITRAL ANNULUS | 11.0 | | [facility] | | MEDIAL E/E" (TISSUE | | | CARDIOLOGY | | DOPPLER) | | | | + + + + + | RVSP | 46 | | [facility] | | | | | CARDIOLOGY | + + + + + | RV TAPSE | 2.5 | | [facility] | | | | | CARDIOLOGY | + + + + + | RV TDI S? | 16.9 | | [facility] | | | | | CARDIOLOGY | + + + + + | TR VMAX (TRICUSPID | 3.0 | | [facility] | | VALVE) | | | CARDIOLOGY | + + + + + | EJECTION FRACTION | 57.5 | % | [facility] DEPT OF | | RANGE MEAN VALUE | | | CARDIOLOGY | + + + + + + + + | Narrative | Performed At | + + + | [facility] | [facility] DEPT OF | | [facility] | CARDIOLOGY | | [address], | | | [place] [address] Pt Name: | | | SUSSY ALLRED Study Date/Time 12/07/2018 / 8:45:36 | | | AMMRN: [id number] Most recent | | | prior: 11/26/2018Acc #: [id number] No. | | | previous echos: 1DOB: 1950 68 years Heart | | | Rate: 88 bpmHeight: 64.0 in | | | Blood Pressure: 104/64 mm/HgWeight: 145.0 | | | lb Gender: | | | FBSA: 1.71 m | | | Order ID: [id number] | | | [facility] Gayle Michael RCSSonographer | | | 2:Referring Provider: Dennis Patel Performed: 2D, Color | | | flow, Spectral Doppler and Definity contrast.Study Quality: | | | Good.Imaging Limitations: Supine.Exam Indication: MurmurHistory: 68 | | | y.o. 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 Patient history has been obtained from the EHR | | | Transthoracic Echocardiographic Report | | | + | | | ---------+Final | | | Impressions: | | | | | | | | | | | | | | | | | | 1. The left ventricular size is | | | normal. | | | 2. The LV function is | | | normal. | | | 3. Right ventricular size, thickness | | | and function are normal. 4. Moderate | | | tricuspid | | | regurgitation. | | | 5. The estimated right ventricular | | | systolic pressure is mildly to moderately elevated (RVSP = 46.0 | | | mmHg). | | | 6. Trivial inferior pericardial | | | effusion is seen without echocardiographic evidence of cardiac | | | tamponade. | | | 7. There are no prior exams | | | available for | | | comparison. | | | | | | | | | + | | | + Description of Findings: Cardiac Rhythm: | | | Normal sinus rhythm.Left Ventricle: The left ventricular size is | | | normal. Visually estimated left ventricular ejection fraction is 55 - | | | 60%. The LV diastolic filling pattern is normal. The ejection fraction | | | is 69.0 % as measured by Cantu's biplane method. The LV function is | | | normal. Due to poor endocardial definition, ultrasound contrast was | | | used (Definity).Left Ventricular Wall Motion: Left ventricular | | | systolic thickening is normal in all segments.Atria: Left atrial size | | | is normal. Normal right atrium.Right Ventricle: Right ventricular | | | size, thickness and function are normal. TAPSE measures 2.5cm. The RV | | | TDI s' velocity is 16.9cm/sec.Aortic Valve: The aortic valve is | | | trileaflet and normal in structure and function. No indication of | | | aortic valve regurgitation.Tricuspid Valve: The tricuspid valve is | | | structurally normal. Moderate tricuspid regurgitation. The tricuspid | | | regurgitant velocity is 3.00 m/s, and with an assumed right atrial | | | pressure of 10 mmHg, the estimated right ventricular systolic pressure | | | is mildly to moderately elevated at 46.0 mmHg.Pulmonic Valve: The | | | pulmonic valve is structurally normal. Mild pulmonary valve | | | regurgitation.Aorta: The ascending aorta is not well | | | visualized.Venous: The inferior vena cava was dilated, with | | | respiratory size variation less than 50%.Pericardium: A trivial | | | inferiorly located pericardial effusion is seen without | | | echocardiographic evidence of tamponade.Additional Findings: There are | | | no prior exams.2D Measurements Doppler | | | Measurements 2D NL Values | | | Aortic MitralLVID(d) 3.70 (3.5-5.7cm) | | | Max Deandre 1.41 Peak E 0.88 | | | cm | | | m/s | | | m/sLVID(s) 2.32 Mean grad 4.0 | | | Peak A 0.62 | | | cm | | | mmHg m/sIVS(d) 0.88 (0.6-1.1cm) | | | LVOT Deandre 0.94 E/A Ratio 1.40 | | | cm | | | m/sLVPW(d) 0.80 (0.6-1.1cm) LVOT VTI 0.186 TDI | | | (E/e') 11.0 | | | cm mLA A/Ps 2D | | | 2.40 (2.7-3.9cm) LVOT Diam 2.00 MV mn gd | | | cm cmLA vol A/L | | | 22.2 (16-34) LVOT SV 34.3 MR | | | EROindex ml/m | | | indexed ml/m | | | LA vol MOD 36.3 (40-73ml) Tricuspid | | | PulmonicBP ml TR | | | Vmax 3.00 PV Vmax 0.7LA vol MOD 21.3 | | | (16-34) m/s | | | m/sindex ml/m | | | RA Press 10 RVOT | | | VTILVEDV 49.78 | | | mmHgindex ml/m | | | RVSP 46 PV mn | | | gdBiplane EF 69.0 % mmHg | | | Aorta: | | | Index: | | | Ao Sinus 2.70 (2.1-3.5cm) | | | 15.8 | | | cm mm/m | | | Asc | | | Ao 2.90 17.0 | | | (prox) cm | | | mm/m | | | Evaluation of chamber size and geometry is accomplished through the | | | incorporation of linear, volumetric, and indexed values Report | | | electronically signed by: [id number] Kathleen Sam MD (12/07/2018, | | | 4:42:18 PM) Final | | + + + + + | Procedure Note | + + | Interface, Cardiology Results - 12/07/2018 4:42 PM Formerly named [facility] | | [facility] [address] [place] [address] | | [place], [place] [address] Pt Name: SUSSY REEVES | | CHALINO Study Date/Time 12/07/2018 / 8:45:36 AMMRN: [id number] Most | | recent prior: 11/26/2018Acc #: [id number] No. previous echos: 1DOB: | | 1950 68 years Heart Rate: 88 bpmHeight: 64.0 in Blood | | Pressure: 104/64 mm/HgWeight: 145.0 lb Gender: FBSA: | | 1.71 m | | Order ID: [id number] [facility] [place] | | [facility] 2:Referring Provider: Dennis AllredModalities Performed: 2D, | [...] and indexed values Report electronically signed by: [id number] | | Kathleen Sam MD (12/07/2018, 4:42:18 [...] | | | |Report electronically signed by: [id number] Kathleen Sam MD (12/07/2018, 4:42:18 PM) | | | | | | | | Final | + + + + + + + | Performing | Address | City/State/Zipcode | Phone Number | | Organization | | | | + + + + + | [facility] | [address] | [place], [place] | | | CARDIOLOGY | [address] | [address] | | + + + + + X-RAY PORTABLE CHEST 1 VIEW (12/07/2018 5:56 AM) + + + | Narrative | Performed At | + + + | EXAM: OK CHEST 1 VIEW HISTORY: SoB COMPARISON: Chest [...] Final signature: Charli | | | Frances Maddox MD 12/07/2018 12:18 PM Preliminary: Charli Maddox MD | | | Dictation initiated: Charli Maddox MD 12/07/2018 12:13 PM | | + + + + + | Procedure Note | + + | 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, Radiant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 - 12/07/2018 12:19 PM PDT EXAM: OK CHEST 1 | | VIEW HISTORY: SoB [...] report as now presented. Final signature: Charli Maddox MD 12/07/2018 12:18 PM | | Preliminary: Charli Maddox MD Dictation initiated: Charli Maddox MD 12/07/2018 12:13 PM | | | |IMPRESSION: | | | |Unchanged diffuse right lung groundglass opacities and mild left lower lobe airspace opacit ies, which may represent aspiration and/or developing infection. | | | |I have personally reviewed the images and, if necessary, edited the report. I agree with e report as now presented. | | | |Final signature: Charli Maddox MD 12/07/2018 12:18 PM | |Preliminary: Charli Maddox MD | |Dictation initiated: Charli Maddox MD 12/07/2018 12:13 PM | + + + +---------+ + + | Performing | Address | City/State/Zipcode | Phone Number | | Organization | | | | + +---------+ + + | [facility] | | | | | VOICE RECOGNITION 2 | | | | + +---------+ + + MAGNESIUM, PLASMA (12/07/2018 2:20 AM) + +-------+ + + | Component | Value | Ref Range | Performed At | + +-------+ + + | MAGNESIUM,PLASMA | 2.3 | 1.6 - 2.6 mg/dL | [facility] | | | | | SERVICES, CORE | + +-------+ + + + + | Specimen | + + | Blood - Blood | + + + + + + + | Performing | Address | City/State/Zipcode | Phone Number | | Organization | | | | + + + + + | [facility] | [address] | [place] [address] | | | SERVICES, CORE | [address] | | | + + + + + CBC (HEMOGRAM) ONLY (12/07/2018 2:20 AM) + + + + + | Component | Value | Ref Range | Performed At | + + + + + | WHITE CELL COUNT | 13.40 (H) | 3.50 - 10.80 K/cu mm | [facility] | | | | | [address] | + + + + + | RED CELL COUNT | 2.52 (L) | 4.00 - 5.20 M/cu mm | [facility] | | | | | [facility] CORE | + + + + + | HEMOGLOBIN | 8.2 (L) | 12.0 - 16.0 g/dL | [facility] | | | | | SERVICES, CORE | + + + + + | HEMATOCRIT | 26.9 (L) | 36.0 - 46.0 % | [facility] | | | | | SERVICES, CORE | + + + + + | MCV | 106.7 (H) | 80.0 - 100.0 fL | [facility] | | | | | SERVICES, CORE | + + + + + | MCHC | 30.5 (L) | 32.0 - 36.0 g/dL | [facility] | | | | | SERVICES, CORE | + + + + + | RDW SD | 49.0 (H) | 35.1 - 46.3 fL | [facility] | | | | | SERVICES, CORE | + + + + + | PLATELET COUNT | 270 | 150 - 400 K/cu mm | [facility] | | | | | SERVICES, CORE | + + + + + | MPV | 9.2 (L) | 9.7 - 12.3 fL | [facility] | | | | | SERVICES, CORE | + + + + + | NRBC% | 0.0 | 0.0 - 0.3 % | [facility] | | | | | SERVICES, CORE | + + + + + | NRBC# | 0.00 | 0.00 - 0.02 K/cu mm | [facility] | | | | | SERVICES, CORE | + + + + + + + | Specimen | + + | Blood - Blood | + + + + + + + | Performing | Address | City/State/Zipcode | Phone Number | | Organization | | | | + + + + + | [facility] | [address] | [place] [address] | | | SERVICES, CORE | [address] | | | + + + + + RENAL FUNCTION SET (NA,K,CL,CO2,BUN,CREAT,GLUC,CA,PHOS,ALB ) (12/07/2018 2:20 AM) + +---------+ + + | Component | Value | Ref Range | Performed At | + +---------+ + + | GLUCOSE, PLASMA | 136 (H) | 70 - 99 mg/dL | [facility] | | (LAB) | | | SERVICES, CORE | + +---------+ + + | BUN, PLASMA (LAB) | 16 | 6 - 20 mg/dL | [facility] | | | | | SERVICES, CORE | + +---------+ + + | CREATININE PLASMA | 0.68 | 0.60 - 1.10 mg/dL | [facility] | | (LAB) | | | [facility], CORE | + +---------+ + + | EGFR - | >60 | >60 mL/min | [facility] | | [place] | | | [facility], CORE | + +---------+ + + | EGFR NON | >60 | >60 mL/min | [facility] | | -[place] | | | [facility], CORE | + +---------+ + + | SODIUM, PLASMA (LAB) | 139 | 136 - 145 mmol/L | [facility] | | | | | SERVICES, CORE | + +---------+ + + | POTASSIUM, PLASMA | 3.9 | 3.4 - 5.0 mmol/L | [facility] | | (LAB) | | | SERVICES, CORE | + +---------+ + + | CHLORIDE, PLASMA | 109 (H) | 97 - 108 mmol/L | [facility] | | (LAB) | | | SERVICES, CORE | + +---------+ + + | TOTAL CO2, PLASMA | 25 | 21 - 32 mmol/L | [facility] | | (LAB) | | | SERVICES, CORE | + +---------+ + + | CALCIUM, PLASMA | 7.7 (L) | 8.6 - 10.2 mg/dL | [facility] | | (LAB) | | | SERVICES, CORE | + +---------+ + + | CALCIUM(ALB | 9.2 | 8.6 - 10.2 mg/dL | [facility] | | CORRECTED) | | | SERVICES, [facility] | + +---------+ + + | ALBUMIN, PLASMA | 2.1 (L) | 3.5 - 4.7 g/dL | [facility] | | (LAB) | | | SERVICES, CORE | + +---------+ + + | PHOSPHORUS, PLASMA | 1.4 (L) | 2.4 - 4.7 mg/dL | [facility] | | (LAB) | | | SERVICES, CORE | + +---------+ + + | POTASSIUM CMNT | No Hemo | | [facility] | | | | | SERVICES, CORE | + +---------+ + + | ANION GAP | 5 | 4 - 11 mmol/L | [facility] | | | | | SERVICES, CORE | + +---------+ + + | ANION GAP(ALB | 9 | 4 - 11 mmol/L | [facility] | | CORRECTED) | | | [facility], CORE | + +---------+ + + + + | Specimen | + + | Blood - Blood | + + + + + | Narrative | Performed At | + + + | GFR is estimated using the MDRD equation recommended by the | [facility] | | National Kidney Disease Education Program. Estimated GFR | LABORATORY | | Interpretive Information: <60 mL/min/1.73 sq | [facility], CORE | | m Chronic Kidney Disease <15 mL/min/1.73 | | | sq m Kidney Failure Estimated GFR greater | | | than 60 mL/min/1.73 sq m is of limited clinical value. The MDRD | | | equation is not valid in the following situations: - Patients under | | | 18 years of age - Severe malnutrition or obesity - Vegetarian diet | | | - Rapidly changing kidney function - Amputees, paraplegics, or other | | | muscle-wasting diseses | | + + + + + + + + | Performing | Address | City/State/Zipcode | Phone Number | | Organization | | | | + + + + + | [facility] | [address] | [place] [address] | | | [address] | [address] | | | + + + + + PROCEDURE NOTE (12/06/2018 7:33 PM)CBC (HEMOGRAM) ONLY (12/06/2018 12:27 PM) + + + + + | Component | Value | Ref Range | Performed At | + + + + + | WHITE CELL COUNT | 12.39 (H) | 3.50 - 10.80 K/cu mm | [facility] | | | | | SERVICES CORE | + + + + + | RED CELL COUNT | 2.45 (L) | 4.00 - 5.20 M/cu mm | [facility] | | | | | SERVICES, CORE | + + + + + | HEMOGLOBIN | 8.1 (L) | 12.0 - 16.0 g/dL | [facility] | | | | | SERVICES, CORE | + + + + + | HEMATOCRIT | 25.4 (L) | 36.0 - 46.0 % | [facility] | | | | | SERVICES, CORE | + + + + + | MCV | 103.7 (H) | 80.0 - 100.0 fL | [facility] | | | | | SERVICES, CORE | + + + + + | MCHC | 31.9 (L) | 32.0 - 36.0 g/dL | [facility] | | | | | SERVICES, CORE | + + + + + | RDW SD | 46.6 (H) | 35.1 - 46.3 fL | [facility] | | | | | SERVICES, CORE | + + + + + | PLATELET COUNT | 237 | 150 - 400 K/cu mm | [facility] | | | | | SERVICES, CORE | + + + + + | MPV | 9.3 (L) | 9.7 - 12.3 fL | [facility] | | | | | SERVICES, CORE | + + + + + | NRBC% | 0.0 | 0.0 - 0.3 % | [facility] | | | | | SERVICES, CORE | + + + + + | NRBC# | 0.00 | 0.00 - 0.02 K/cu mm | [facility] | | | | | SERVICES, CORE | + + + + + + + | Specimen | + + | Blood - Blood | + + + + + + + | Performing | Address | City/State/Zipcode | Phone Number | | Organization | | | | + + + + + | [facility] | [address] | [place] [address] | | | SERVICES, CORE | [address] | | | + + + + + MAGNESIUM, PLASMA (12/06/2018 6:29 AM) + +-------+ + + | Component | Value | Ref Range | Performed At | + +-------+ + + | MAGNESIUM,PLASMA | 2.1 | 1.6 - 2.6 mg/dL | [facility] | | | | | [address] | + +-------+ + + + + | Specimen | + + | Blood - Blood | + + + + + + + | Performing | Address | City/State/Zipcode | Phone Number | | Organization | | | | + + + + + | [facility] | [address] | [place] [address] | | | SERVICES, CORE | [address] | | | + + + + + BASIC METABOLIC SET (NA, K, CL, TCO2, BUN, CR, GLU, CA) (12/06/2018 6:29 AM) + +---------+ + + | Component | Value | Ref Range | Performed At | + +---------+ + + | GLUCOSE, PLASMA | 95 | 70 - 99 mg/dL | [facility] | | (LAB) | | | SERVICES, CORE | + +---------+ + + | BUN, PLASMA (LAB) | 12 | 6 - 20 mg/dL | [facility] | | | | | SERVICES, CORE | + +---------+ + + | CREATININE PLASMA | 0.66 | 0.60 - 1.10 mg/dL | [facility] | | (LAB) | | | SERVICES, CORE | + +---------+ + + | EGFR - | >60 | >60 mL/min | [facility] | | [place] | | | [facility], CORE | + +---------+ + + | EGFR NON | >60 | >60 mL/min | [facility] | | -[place] | | | SERVICES, CORE | + +---------+ + + | SODIUM, PLASMA (LAB) | 135 (L) | 136 - 145 mmol/L | [facility] | | | | | SERVICES, CORE | + +---------+ + + | POTASSIUM, PLASMA | 3.6 | 3.4 - 5.0 mmol/L | [facility] | | (LAB) | | | SERVICES, CORE | + +---------+ + + | CHLORIDE, PLASMA | 106 | 97 - 108 mmol/L | [facility] | | (LAB) | | | SERVICES, CORE | + +---------+ + + | TOTAL CO2, PLASMA | 22 | 21 - 32 mmol/L | [facility] | | (LAB) | | | [facility], CORE | + +---------+ + + | CALCIUM, PLASMA | 8.0 (L) | 8.6 - 10.2 mg/dL | [facility] | | (LAB) | | | SERVICES, CORE | + +---------+ + + | ANION GAP | 7 | 4 - 11 mmol/L | [facility] | | | | | SERVICES, CORE | + +---------+ + + | POTASSIUM CMNT | No Hemo | | [facility] | | | | | SERVICES, CORE | + +---------+ + + + + | Specimen | + + | Blood - Blood | + + + + + | Narrative | Performed At | + + + | GFR is estimated using the MDRD equation recommended by the | [facility] | | National Kidney Disease Education Program. Estimated GFR | LABORATORY | | Interpretive Information: <60 mL/min/1.73 sq | SERVICES, CORE | | m Chronic Kidney Disease <15 mL/min/1.73 | | | sq m Kidney Failure Estimated GFR greater | | | than 60 mL/min/1.73 sq m is of limited clinical value. The MDRD | | | equation is not valid in the following situations: - Patients under | | | 18 years of age - Severe malnutrition or obesity - Vegetarian diet | | | - Rapidly changing kidney function - Amputees, paraplegics, or other | | | muscle-wasting diseses | | + + + + + + + + | Performing | Address | City/State/Zipcode | Phone Number | | Organization | | | | + + + + + | [facility] | [address] | [place] [address] | | | [place] | [address] | | | + + + + + X-RAY PORTABLE CHEST 1 VIEW (12/06/2018 6:10 AM) + + + | Narrative | Performed At | + + + | EXAM: OK CHEST 1 VIEW HISTORY: SoB COMPARISON: Yesterday | [facility] | | FINDINGS: Left-sided chest tube is in unchanged position. The | RADIOLOGY VOICE | | cardiomediastinal silhouette is stable. There are new widespread | RECOGNITION 2 | | right lung groundglass opacities. The left lung is clear. 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 There is no pleural effusion | | | or pneumothorax. IMPRESSION: New right lung groundglass | | | opacities most consistent with large volume aspiration. I have | | | personally reviewed the images and, if necessary, edited the report. I | | | agree with the report as now presented. Final signature: | | | Jennifer Haider MD 12/06/2018 8:37 AM Preliminary: Jennifer Haider | | | Dictation initiated: Jennifer Haider MD 12/06/2018 8:36 | | | AM | | + + + + + | Procedure Note | + + | 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, Radiant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 - 12/06/2018 8:38 AM PDT EXAM: OK CHEST 1 | | VIEW HISTORY: SoB [...] + + CBC (HEMOGRAM) ONLY (12/06/2018 5:58 AM) + + + + + | Component | Value | Ref Range | Performed At | + + + + + | WHITE CELL COUNT | 14.34 (H) | 3.50 - 10.80 K/cu mm | [facility] | | | | | SERVICES, CORE | + + + + + | RED CELL COUNT | 2.65 (L) | 4.00 - 5.20 M/cu mm | [facility] | | | | | SERVICES, CORE | + + + + + | HEMOGLOBIN | 8.7 (L) | 12.0 - 16.0 g/dL | [facility] | | | | | SERVICES, CORE | + + + + + | HEMATOCRIT | 27.1 (L) | 36.0 - 46.0 % | [facility] | | | | | SERVICES, CORE | + + + + + | MCV | 102.3 (H) | 80.0 - 100.0 fL | [facility] | | | | | SERVICES, CORE | + + + + + | MCHC | 32.1 | 32.0 - 36.0 g/dL | [facility] | | | | | SERVICES, CORE | + + + + + | RDW SD | 46.1 | 35.1 - 46.3 fL | [facility] | | | | | SERVICES, CORE | + + + + + | PLATELET COUNT | 233 | 150 - 400 K/cu mm | [facility] | | | | | SERVICES, CORE | + + + + + | MPV | 8.9 (L) | 9.7 - 12.3 fL | [facility] | | | | | SERVICES, CORE | + + + + + | NRBC% | 0.0 | 0.0 - 0.3 % | [facility] | | | | | SERVICES, CORE | + + + + + | NRBC# | 0.00 | 0.00 - 0.02 K/cu mm | [facility] | | | | | SERVICES, CORE | + + + + + + + | Specimen | + + | Blood - Blood | + + + + + + + | Performing | Address | City/State/Zipcode | Phone Number | | Organization | | | | + + + + + | [facility] | [address] | [place] [address] | | | [place], [place] | [address] | | | + + + + + POINT OF CARE ULTRASOUND (12/05/2018 8:51 AM) + + + | Narrative | Performed At | + + + | Dennis Myrick MD 12/05/2018 8:54 AM POCUS Performed | | | by: DENNIS MYRICK Authorized by: DENNIS MYRICK Diagnosis | | | indicating procedure: Hypotension Location performed: 12K | | | Operators: Attending Attending physically present: Yes | | | Attending name: Elen Scan type: Focused Cardiac | | | Indication: Hypotension The following standard transthoracic | | | echocardiagram windows were obtained using a phased array | | | probe: Parasternal long axis, Sub-xiphoid, Parasternal short axis | | | and Apical 4 chamber Volume estimate: Hypovolemia Kissing | | | papillary muscles: + Estimate of LV function:Normal | | | Evidence of pericardial effusion: + not flow significant | | | Cardiac Impression Thickened LV myocardial pitt, hyperdynamic RV, | | | obliteration of LV cavity with systole. Images archived to | | | institution under ground miner | | + + + X-RAY PORTABLE CHEST 1 VIEW (12/05/2018 5:59 AM) + + + | Narrative | Performed At | + + + | EXAM: [place] CHEST 1 VIEW HISTORY: post left thoracotomy, [...] Final signature: Frieda Brumfield MD 12/05/2018 9:51 | | | AM Preliminary: Charli Palacios MD Dictation initiated: Charli Gutierres | Bhavik Palacios MD 12/05/2018 8:01 AM | | + + + + + | Procedure Note | + + | 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, Radiant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 - 12/05/2018 9:53 AM PDT EXAM: [place] CHEST 1 | | VIEW HISTORY: post [...] TRANSTHORACIC ECHOCARDIOGRAM LIMITED (FAST TTE) (12/05/2018 3:40 AM) + + + | Narrative | Performed At | + + + | Bedside ultrasound performed in the ICU. See inpatient admission | | | for details. | | + + + ART LINE (12/05/2018 2:56 AM) + + + | Narrative | Performed [...] . Indications: Beat to beat blood pressure | | | monitoring Diagnosis indicating procedure: Hypotension Location | | | performed: 12K Operators: Advanced Practice Provider Attending | | | physically present: No NEETU name: Dennis Allred Skin | | | Preparation: Chloraprep Protective barrier: Cap, Mask, Hand | | | scrub, Gloves and Partially draped Sterile Ultrasound | | | Used: Sterile Ultrasound Used Anesthesia: Local infiltration | | | Local anesthetic: Lidocaine 1% Insertion side: Right Insertion | | | site: Radial Catheter size: 3 mal[place] x 5 cm Number of | | | attempts: 3 Procedure comments: Left radial unable to get flash | | | on 2 attempt with US guidance R radial 1 attempt. Line | | | secured: Suture Complications: None | | + + + CBC (HEMOGRAM) ONLY (12/05/2018 1:45 AM) + + + + + | Component | Value | Ref Range | Performed At | + + + + + | WHITE CELL COUNT | 9.08 | 3.50 - 10.80 K/cu mm | [facility] | | | | | SERVICES, CORE | + + + + + | RED CELL COUNT | 3.04 (L) | 4.00 - 5.20 M/cu mm | [facility] | | | | | SERVICES, CORE | + + + + + | HEMOGLOBIN | 10.0 (L) | 12.0 - 16.0 g/dL | [facility] | | | | | SERVICES, CORE | + + + + + | HEMATOCRIT | 31.3 (L) | 36.0 - 46.0 % | [facility] | | | | | SERVICES, CORE | + + + + + | MCV | 103.0 (H) | 80.0 - 100.0 fL | [facility] | | | | | SERVICES, CORE | + + + + + | MCHC | 31.9 (L) | 32.0 - 36.0 g/dL | [facility] | | | | | SERVICES, CORE | + + + + + | RDW SD | 45.9 | 35.1 - 46.3 fL | [facility] | | | | | SERVICES, CORE | + + + + + | PLATELET COUNT | 293 | 150 - 400 K/cu mm | [facility] | | | | | SERVICES, CORE | + + + + + | MPV | 8.6 (L) | 9.7 - 12.3 fL | [facility] | | | | | SERVICES, CORE | + + + + + | NRBC% | 0.0 | 0.0 - 0.3 % | [facility] | | | | | SERVICES, CORE | + + + + + | NRBC# | 0.00 | 0.00 - 0.02 K/cu mm | [facility] | | | | | SERVICES, CORE | + + + + + + + | Specimen | + + | Blood - Blood | + + + + + + + | Performing | Address | City/State/Zipcode | Phone Number | | Organization | | | | + + + + + | [facility] | [id number] | [place] [address] | | | KOKI STUART | [address] | | | + + + + + MAGNESIUM, PLASMA (12/05/2018 1:45 AM) + +-------+ + + | Component | Value | Ref Range | Performed At | + +-------+ + + | MAGNESIUM,PLASMA | 1.8 | 1.6 - 2.6 mg/dL | [facility] | | | | | [facility] ST[facility] | + +-------+ + + + + | Specimen | + + | Blood - Blood | + + + + + + + | Performing | Address | City/State/Zipcode | Phone Number | | Organization | | | | + + + + + | [facility] | [address] | [place] [address] | | | SERVICES, CORE | [address] | | | + + + + + RENAL FUNCTION SET (NA,K,CL,CO2,BUN,CREAT,GLUC,CA,PHOS,ALB ) (12/05/2018 1:45 AM) + +---------+ + + | Component | Value | Ref Range | Performed At | + +---------+ + + | GLUCOSE, PLASMA | 119 (H) | 70 - 99 mg/dL | [facility] | | (LAB) | | | SERVICES, CORE | + +---------+ + + | BUN, PLASMA (LAB) | 15 | 6 - 20 mg/dL | [facility] | | | | | SERVICES, CORE | + +---------+ + + | CREATININE PLASMA | 0.94 | 0.60 - 1.10 mg/dL | [facility] | | (LAB) | | | SADE, CORE | + +---------+ + + | EGFR - | >60 | >60 mL/min | [facility] | | [place] | | | SADE, CORE | + +---------+ + + | EGFR NON | 59 (L) | >60 mL/min | [facility] | | -[place] | | | SERVICES, CORE | + +---------+ + + | SODIUM, PLASMA (LAB) | 138 | 136 - 145 mmol/L | [facility] | | | | | SERVICES, CORE | + +---------+ + + | POTASSIUM, PLASMA | 4.5 | 3.4 - 5.0 mmol/L | [facility] | | (LAB) | | | SERVICES, CORE | + +---------+ + + | CHLORIDE, PLASMA | 104 | 97 - 108 mmol/L | [facility] | | (LAB) | | | SERVICES, CORE | + +---------+ + + | TOTAL CO2, PLASMA | 26 | 21 - 32 mmol/L | [facility] | | (LAB) | | | SERVICES, CORE | + +---------+ + + | CALCIUM, PLASMA | 7.9 (L) | 8.6 - 10.2 mg/dL | [facility] | | (LAB) | | | SERVICES, CORE | + +---------+ + + | CALCIUM(ALB | 8.9 | 8.6 - 10.2 mg/dL | [facility] | | CORRECTED) | | | SERVICES, [facility] | + +---------+ + + | ALBUMIN, PLASMA | 2.8 (L) | 3.5 - 4.7 g/dL | [facility] | | (LAB) | | | SERVICES, CORE | + +---------+ + + | PHOSPHORUS, PLASMA | 3.4 | 2.4 - 4.7 mg/dL | [facility] | | (LAB) | | | [facility] | + +---------+ + + | POTASSIUM CMNT | No Hemo | | [facility] | | | | | SERVICES, CORE | + +---------+ + + | ANION GAP | 8 | 4 - 11 mmol/L | [facility] | | | | | SERVICES, CORE | + +---------+ + + | ANION GAP(ALB | 11 | 4 - 11 mmol/L | [facility] | | CORRECTED) | | | SERVICES, [facility] | + +---------+ + + + + | Specimen | + + | Blood - Blood | + + + + + | Narrative | Performed At | + + + | GFR is estimated using the MDRD equation recommended by the | [facility] | | National Kidney Disease Education Program. Estimated GFR | LABORATORY | | Interpretive Information: <60 mL/min/1.73 sq | [facility] | | m Chronic Kidney Disease <15 mL/min/1.73 | | | sq m Kidney Failure Estimated GFR greater | | | than 60 mL/min/1.73 sq m is of limited clinical value. The MDRD | | | equation is not valid in the following situations: - Patients under | | | 18 years of age - Severe malnutrition or obesity - Vegetarian diet | | | - Rapidly changing kidney function - Amputees, paraplegics, or other | | | muscle-wasting diseses | | + + + + + + + + | Performing | Address | City/State/Zipcode | Phone Number | | Organization | | | | + + + + + | [facility] | [address] | [place] [address] | | | KOKI STUART | [address] | | | + + + + + X-RAY PORTABLE CHEST 1 VIEW (12/04/2018 6:32 PM) + + + | Narrative | Performed At | + + + | EXAM: [place] CHEST 1 VIEW HISTORY: Status post left [...] Brissa 12/05/2018 9:53 AM Preliminary: Charli Palacios | | | Dictation initiated: Charli Palacios MD 12/05/2018 7:57 AM | | + + + + + | Procedure Note | + + | 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, Radiant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 - 12/05/2018 9:54 AM PDT EXAM: OK CHEST 1 | | VIEW HISTORY: Status [...] APTT (ACT. PART. THROMBO TIME) (12/04/2018 6:29 PM) + + + + + | Component | Value | Ref Range | Performed At | + + + + + | APTT | 25.2 (L) | 26.0 - 36.0 seconds | [facility] | | | | | SERVICES, CORE | + + + + + + + | Specimen | + + | Blood - Blood | + + + + + | Narrative | Performed At | + + + | APTT values for monitoring heparin therapy may be affected by | [facility] | | specimens processed >1 hour after collection. APTT Therapeutic | LABORATORY | | Range: (75 - 120) sec | [facility] | | Heparin levels of 0.35 - 0.7 U/mL | | + + + + + + + + | Performing | Address | City/State/Zipcode | Phone Number | | Organization | | | | + + + + + | [facility] | [address] | [place] [address] | | | KOKI STUART | [address] | | | + + + + + CBC (HEMOGRAM) ONLY (12/04/2018 5:56 PM) + + + + + | Component | Value | Ref Range | Performed At | + + + + + | WHITE CELL COUNT | 13.55 (H) | 3.50 - 10.80 K/cu mm | [facility] | | | | | SERVICES, CORE | + + + + + | RED CELL COUNT | 3.22 (L) | 4.00 - 5.20 M/cu mm | [facility] | | | | | SERVICES, CORE | + + + + + | HEMOGLOBIN | 10.6 (L) | 12.0 - 16.0 g/dL | [facility] | | | | | SERVICES, CORE | + + + + + | HEMATOCRIT | 32.6 (L) | 36.0 - 46.0 % | [facility] | | | | | SERVICES, CORE | + + + + + | MCV | 101.2 (H) | 80.0 - 100.0 fL | [facility] | | | | | SERVICES, CORE | + + + + + | MCHC | 32.5 | 32.0 - 36.0 g/dL | [facility] | | | | | SERVICES, CORE | + + + + + | RDW SD | 45.1 | 35.1 - 46.3 fL | [facility] | | | | | SERVICES, CORE | + + + + + | PLATELET COUNT | 343 | 150 - 400 K/cu mm | [facility] | | | | | SERVICES, CORE | + + + + + | MPV | 8.9 (L) | 9.7 - 12.3 fL | [facility] | | | | | SERVICES, CORE | + + + + + | NRBC% | 0.0 | 0.0 - 0.3 % | [facility] | | | | | SERVICES, CORE | + + + + + | NRBC# | 0.00 | 0.00 - 0.02 K/cu mm | [facility] | | | | | SERVICES, CORE | + + + + + + + | Specimen | + + | Blood - Blood | + + + + + + + | Performing | Address | City/State/Zipcode | Phone Number | | Organization | | | | + + + + + | [facility] | [address] | [place] [address] | | | SERVICES, [facility] | [address] | | | + + + + + BASIC METABOLIC SET (NA, K, CL, TCO2, BUN, CR, GLU, CA) (12/04/2018 5:56 PM) + +---------+ + + | Component | Value | Ref Range | Performed At | + +---------+ + + | GLUCOSE, PLASMA | 146 (H) | 70 - 99 mg/dL | [facility] | | (LAB) | | | [facility] | + +---------+ + + | BUN, PLASMA (LAB) | 16 | 6 - 20 mg/dL | [facility] | | | | | SERVICES, CORE | + +---------+ + + | CREATININE PLASMA | 0.78 | 0.60 - 1.10 mg/dL | [facility] | | (LAB) | | | SERVICES, CORE | + +---------+ + + | EGFR - | >60 | >60 mL/min | [facility] | | [place] | | | SERVICES, CORE | + +---------+ + + | EGFR NON | >60 | >60 mL/min | [facility] | | -[place] | | | SERVICES, CORE | + +---------+ + + | SODIUM, PLASMA (LAB) | 136 | 136 - 145 mmol/L | [facility] | | | | | SERVICES, CORE | + +---------+ + + | POTASSIUM, PLASMA | 4.7 | 3.4 - 5.0 mmol/L | [facility] | | (LAB) | | | SERVICES, CORE | + +---------+ + + | CHLORIDE, PLASMA | 104 | 97 - 108 mmol/L | [facility] | | (LAB) | | | SERVICES, CORE | + +---------+ + + | TOTAL CO2, PLASMA | 24 | 21 - 32 mmol/L | [facility] | | (LAB) | | | SERVICES, CORE | + +---------+ + + | CALCIUM, PLASMA | 8.3 (L) | 8.6 - 10.2 mg/dL | [facility] | | (LAB) | | | [facility], CORE | + +---------+ + + | ANION GAP | 8 | 4 - 11 mmol/L | [facility] | | | | | SERVICES, CORE | + +---------+ + + | POTASSIUM CMNT | Sl Hemo | | [facility] | | | | | SERVICES, CORE | + +---------+ + + + + | Specimen | + + | Blood - Blood | + + + + + | Narrative | Performed At | + + + | Sample hemolyzed. Results for LD, K, and AST may be | [facility] | | inaccurate. Refer to comment under test. GFR is estimated using | LABORATORY | | the MDRD equation recommended by the National Kidney Disease Education | SERVICES, CORE | | Program. Estimated GFR Interpretive Information: <60 mL/min/1.73 | | | sq m Chronic Kidney Disease <15 | | | mL/min/1.73 sq m Kidney Failure Estimated | | | GFR greater than 60 mL/min/1.73 sq m is of limited clinical value. | | | The MDRD equation is not valid in the following situations: - | | | Patients under 18 years of age - Severe malnutrition or obesity - | | | Vegetarian diet - Rapidly changing kidney function - Amputees, | | | paraplegics, or other muscle-wasting diseses | | + + + + + + + + | Performing | Address | City/State/Zipcode | Phone Number | | Organization | | | | + + + + + | [facility] | [address] | [place] [address] | | | SERVICES, [place] | [address] | | | + + + + + CAPILLARY BLOOD GLUCOSE (NO CHG), POC (12/04/2018 5:53 PM) + +---------+ + + | Component | Value | Ref Range | Performed At | + +---------+ + + | BLOOD GLUCOSE, POC | 134 (H) | 60 - 99 mg/dL | [facility] | | | | | [facility] OF | | | | | CARE TESTS | + +---------+ + + + + + + + | Performing | Address | City/State/Zipcode | Phone Number | | Organization | | | | + + + + + | [facility] | [address] | [place], [place] | | | [facility] | [address] | [address] | | | TESTS | | | | + + + + + OPERATION RECORD (12/04/2018 4:05 PM) + + | Procedure Note | + + | Manoj Kumar MD - 12/04/2018 4:05 PM PDT Date of Service: 12/04/2018 Attending | | Surgeon:Manoj Kumar MD Stonecutter Assistant(s):Pritesh Chang | | Bethel Quevedo MD Preoperative [...] ribs were reapproximated using | | multiple bygoed-[id number] #2 Vicryl sutures. Serratus closed with #1 Vicryl, | | subcutaneous tissue closed with 2-0 Vicryl, skin closed with 4-0 Vicryl. Sterile | | dressings were applied. A single 28-Maltese chest tube was placed through the inferior [...] multiple 10L and 11L lymph | | nodes.Manoj Kumar, PRITESH/NICKD: 12/04/2018 15:15:41DT: 12/04/2018 16:05:12Job #: | | [id number] | + + CAPILLARY BLOOD GLUCOSE (NO CHG), POC (12/04/2018 3:55 PM) + +-------+ + + | Component | Value | Ref Range | Performed At | + +-------+ + + | BLOOD GLUCOSE, POC | 98 | 60 - 99 mg/dL | [facility] | | | | | [place], POINT OF | | | | | CARE TESTS | + +-------+ + + + + + + + | Performing | Address | City/State/Zipcode | Phone Number | | Organization | | | | + + + + + | [facility] | [address] | [place], [place] | | | [facility] | [address] | [address] | | | TESTS | | | | + + + + + CHARLEY-EDER WYATT (12/04/2018 2:27 PM) + + + + + | Component | Value | Ref Range | Performed At | + + + + + | PH ARTERIAL, POC | 7.38 | 7.37 - 7.44 | [facility] | | | | | [facility], POINT OF | | | | | CARE TESTS | + + + + + | PO2 ARTERIAL, POC | 190 (H) | 72 - 104 mmHg | [facility] | | | | | [facility] POINT OF | | | | | CARE TESTS | + + + + + | PCO2 ARTERIAL, POC | 42 | 32 - 43 mmHg | [facility] | | | | | [facility], POINT OF | | | | | CARE TESTS | + + + + + | TOTAL HEMOGLOBIN, | 10.4 (L) | 12.0 - 16.0 g/dL | [facility] | | POC | | | [facility], POINT OF | | | | | CARE TESTS | + + + + + | O2 SAT ARTERIAL, POC | 99.7 (H) | 92.0 - 98.0 % | [facility] | | | | | [facility], POINT OF | | | | | CARE TESTS | + + + + + | OXYHEMOGLOBIN, POC | 98.2 | 94.0 - 100 % | [facility] | | | | | [facility], POINT OF | | | | | CARE TESTS | + + + + + | HEMATOCRIT, POC | 31.9 (L) | 36.0 - 46.0 % | [facility] | | | | | [place], POINT OF | | | | | CARE TESTS | + + + + + | POTASSIUM, POC | 3.7 | 3.4 - 5.0 mmol/L | [facility] | | | | | [facility], POINT OF | | | | | CARE TESTS | + + + + + | SODIUM, POC | 137 | 134 - 143 mmol/L | [facility] | | | | | [facility], POINT OF | | | | | CARE TESTS | + + + + + | SARAHY IONIZED CA, POC | 1.17 | 1.14 - 1.32 mmol/L | [facility] | | | | | [facility], POINT OF | | | | | CARE TESTS | + + + + + | CHLORIDE, POC | 104 | 97 - 108 mmol/L | [facility] | | | | | [facility], POINT OF | | | | | CARE TESTS | + + + + + | GLUCOSE, POC | 172 (H) | 60 - 99 mg/dL | [facility] | | | | | [facility], POINT OF | | | | | CARE TESTS | + + + + + | HCO3 ARTERIAL, POC | 24.6 | 21 - 28 mmol/L | [facility] | | | | | [facility], POINT OF | | | | | CARE TESTS | + + + + + | BASE EXCESS | -0.5 | | [facility] | | ARTERIAL, POC | | | [facility] POINT OF | | | | | CARE TESTS | + + + + + | LACTATE ARTERIAL, | 1.0 | 0.5 - 1.6 mmol/L | [facility] | | POC | | | [facility] POINT OF | | | | | CARE TESTS | + + + + + | METHEMOGLOBIN, POC | 0.9 | 0.0 - 1.9 % | [facility] | | | | | [facility] POINT OF | | | | | CARE TESTS | + + + + + | PAT TEMP ART, POC | 37.0 | | [facility] | | | | | [facility] POINT OF | | | | | CARE TESTS | + + + + + + + | Specimen | + + | Blood - Blood | + + + + + + + | Performing | Address | City/State/Zipcode | Phone Number | | Organization | | | | + + + + + | [facility] | [address] | [place], [place] | | | [facility] | [address] | [address] | | | TESTS | | | | + + + + + CHARLEY-EDER WYATT (12/04/2018 12:55 PM) + + + + + | Component | Value | Ref Range | Performed At | + + + + + | PH ARTERIAL, POC | 7.41 | 7.37 - 7.44 | [facility] | | | | | [facility] POINT OF | | | | | CARE TESTS | + + + + + | PO2 ARTERIAL, POC | 139 (H) | 72 - 104 mmHg | [facility] | | | | | [facility] POINT OF | | | | | CARE TESTS | + + + + + | PCO2 ARTERIAL, POC | 40 | 32 - 43 mmHg | [facility] | | | | | [facility] POINT OF | | | | | CARE TESTS | + + + + + | TOTAL HEMOGLOBIN, | 10.2 (L) | 12.0 - 16.0 g/dL | [facility] | | POC | | | [facility] POINT OF | | | | | CARE TESTS | + + + + + | O2 SAT ARTERIAL, POC | 99.2 (H) | 92.0 - 98.0 % | [facility] | | | | | [facility], POINT OF | | | | | CARE TESTS | + + + + + | OXYHEMOGLOBIN, POC | 97.4 | 94.0 - 100 % | [facility] | | | | | [facility], POINT OF | | | | | CARE TESTS | + + + + + | HEMATOCRIT, POC | 31.3 (L) | 36.0 - 46.0 % | [facility] | | | | | [facility], POINT OF | | | | | CARE TESTS | + + + + + | POTASSIUM, POC | 4.1 | 3.4 - 5.0 mmol/L | [facility] | | | | | [facility], POINT OF | | | | | CARE TESTS | + + + + + | SODIUM, POC | 136 | 134 - 143 mmol/L | [facility] | | | | | [facility], POINT OF | | | | | CARE TESTS | + + + + + | SARAHY IONIZED CA, POC | 1.15 | 1.14 - 1.32 mmol/L | [facility] | | | | | [facility], POINT OF | | | | | CARE TESTS | + + + + + | CHLORIDE, POC | 105 | 97 - 108 mmol/L | [facility] | | | | | [facility], POINT OF | | | | | CARE TESTS | + + + + + | GLUCOSE, POC | 174 (H) | 60 - 99 mg/dL | [facility] | | | | | [place], POINT OF | | | | | CARE TESTS | + + + + + | HCO3 ARTERIAL, POC | 25.1 | 21 - 28 mmol/L | [facility] | | | | | [facility], POINT OF | | | | | CARE TESTS | + + + + + | BASE EXCESS | 0.4 | | [facility] | | ARTERIAL, POC | | | [facility], POINT OF | | | | | CARE TESTS | + + + + + | LACTATE ARTERIAL, | 0.9 | 0.5 - 1.6 mmol/L | [facility] | | POC | | | [facility] POINT OF | | | | | CARE TESTS | + + + + + | METHEMOGLOBIN, POC | 0.8 | 0.0 - 1.9 % | [facility] | | | | | [facility] POINT OF | | | | | CARE TESTS | + + + + + | PAT TEMP ART, POC | 37.0 | | [facility] | | | | | [facility] POINT OF | | | | | CARE TESTS | + + + + + + + | Specimen | + + | Blood - Blood | + + + + + + + | Performing | Address | City/State/Zipcode | Phone Number | | Organization | | | | + + + + + | [facility] | [address] | [place], [place] | | | [facility] OF CARE | [address] | [address] | | | TESTS | | | | + + + + + CHARLEY-EDER WYATT (12/04/2018 10:21 AM) + + + + + | Component | Value | Ref Range | Performed At | + + + + + | PH ARTERIAL, POC | 7.36 (L) | 7.37 - 7.44 | [facility] | | | | | [place], POINT OF | | | | | CARE TESTS | + + + + + | PO2 ARTERIAL, POC | 355 (H) | 72 - 104 mmHg | [facility] | | | | | [facility] POINT OF | | | | | CARE TESTS | + + + + + | PCO2 ARTERIAL, POC | 45 (H) | 32 - 43 mmHg | [facility] | | | | | [facility] POINT OF | | | | | CARE TESTS | + + + + + | TOTAL HEMOGLOBIN, | 10.0 (L) | 12.0 - 16.0 g/dL | [facility] | | POC | | | [facility], POINT OF | | | | | CARE TESTS | + + + + + | O2 SAT ARTERIAL, POC | 100.1 (H) | 92.0 - 98.0 % | [facility] | | | | | [facility], POINT OF | | | | | CARE TESTS | + + + + + | OXYHEMOGLOBIN, POC | 98.3 | 94.0 - 100 % | [facility] | | | | | [facility] POINT OF | | | | | CARE TESTS | + + + + + | HEMATOCRIT, POC | 30.7 (L) | 36.0 - 46.0 % | [facility] | | | | | [facility] POINT OF | | | | | CARE TESTS | + + + + + | POTASSIUM, POC | 4.3 | 3.4 - 5.0 mmol/L | [facility] | | | | | [facility] POINT OF | | | | | CARE TESTS | + + + + + | SODIUM, POC | 137 | 134 - 143 mmol/L | [facility] | | | | | [facility], POINT OF | | | | | CARE TESTS | + + + + + | SARAHY IONIZED CA, POC | 1.19 | 1.14 - 1.32 mmol/L | [facility] | | | | | [facility], POINT OF | | | | | CARE TESTS | + + + + + | CHLORIDE, POC | 104 | 97 - 108 mmol/L | [facility] | | | | | [facility], POINT OF | | | | | CARE TESTS | + + + + + | GLUCOSE, POC | 128 (H) | 60 - 99 mg/dL | [facility] | | | | | [facility], POINT OF | | | | | CARE TESTS | + + + + + | HCO3 ARTERIAL, POC | 25.6 | 21 - 28 mmol/L | [facility] | | | | | [facility], POINT OF | | | | | CARE TESTS | + + + + + | BASE EXCESS | 0.1 | | [facility] | | ARTERIAL, POC | | | [facility], POINT OF | | | | | CARE TESTS | + + + + + | LACTATE ARTERIAL, | 1.1 | 0.5 - 1.6 mmol/L | [facility] | | POC | | | [facility], POINT OF | | | | | CARE TESTS | + + + + + | METHEMOGLOBIN, POC | 0.8 | 0.0 - 1.9 % | [facility] | | | | | [facility], POINT OF | | | | | CARE TESTS | + + + + + | PAT TEMP ART, POC | 37.0 | | [facility] | | | | | [facility], POINT OF | | | | | CARE TESTS | + + + + + + + | Specimen | + + | Blood - Blood | + + + + + + + | Performing | Address | City/State/Zipcode | Phone Number | | Organization | | | | + + + + + | [facility] | [address] | [place], [place] | | | [facility] | [address] | [address] | | | TESTS | | | | + + + + + SURGICAL PATHOLOGY (12/04/2018 9:11 AM) + + + + + | Component | Value | Ref Range | Performed At | + + + + + | Clinical History | 68 year old female with | | [facility] | | | a history of left upper | | OF PATHOLOGY | | | lobe nodule and | | | | | mediastinal adenopathy | | | + + + + + | Final Pathologic | A. Lymph node, level 7, | | [facility] | | Diagnosis | biopsy: Fragments of | | OF PATHOLOGY | | | lymph node with | | | | | metastatic carcinoma | | | | | (1/1) Sales cytokeratin | | | | | immunostain confirms | | | | | presence of scattered | | | | | tumor cells B. Lymph | | | | | node, level 4R, | | | | | biopsy: Fragments of | | | | | lymph node negative for | | | | | metastasis (0/1)C. Lymph | | | | | node, additional level | | | | | 7, biopsy: Fragments | | | | | of lymph node negative | | | | | for metastasis (0/1)D. | | | | | Lymph node, level 9L, | | | | | biopsy: Two lymph | | | | | nodes negative for | | | | | metastasis (0/2)E. Lymph | | | | | node, level 4L, | | | | | biopsy: Metastatic | | | | | carcinoma in one lymph | | | | | node (1/)F. Lymph node, | | | | | level 10L, biopsy: | | | | | Two lymph nodes negative | | | | | for metastasis (0/2)G. | | | | | Lymph node, proximal | | | | | level 10L, biopsy: | | | | | Metastatic carcinoma in | | | | | one of three lymph nodes | | | | | (/)H. Lymph node, | | | | | level 11L, biopsy: | | | | | Metastatic carcinoma in | | | | | one lymph node (08/20)I. | | | | | Lymph node, level 7, | | | | | biopsy: One lymph node | | | | | negative for metastasis | | | | | (0/)J. Lung, AP | | | | | window, biopsy: One | | | | | lymph node positive for | | | | | metastatic carcinoma | | | | | (08/20)K. Lymph node, 11L | | | | | lower lobe, biopsy: | | | | | Fragments of lymph node | | | | | with metastatic | | | | | carcinoma (/)L. Lymph | | | | | node, level 11L | | | | | BIFURCATION, biopsy: | | | | | One lymph node with | | | | | metastatic carcinoma | | | | | (08/20) Tumor is also | | | | | present in adjacent soft | | | | | tissue (not due to | | | | | extracapsular | | | | | extension)M. Lymph node, | | | | | 5-6 node, biopsy: | | | | | Metastatic carcinoma in | | | | | one lymph node (08/20), | | | | | 1.8 cm. No extracapsular | | | | | extensionN. Lymph node, | | | | | 3A node, biopsy: One | | | | | lymph node negative for | | | | | metastasis (0/1)O. Lymph | | | | | node, 3 superior, | | | | | biopsy: Metastatic | | | | | carcinoma in three of | | | | | nine lymph nodes (3/9) | | | | | Largest metastatic | | | | | focus measures 2.6 cm | | | | | (per gross | | | | | description) No | | | | | extracapsular | | | | | extensionP. Lymph node, | | | | | 3 most superior, | | | | | biopsy: Two lymph | | | | | nodes negative for | | | | | metastasis (0/2)Q. Lung, | | | | | upper lobe, left upper | | | | | lobectomy: Invasive | | | | | poorly differentiated | | | | | adenocarcinoma, | | | | | predominately solid, 3.2 | | | | | cm Tumor penetrates | | | | | and is present on the | | | | | pleural surface (PL2) | | | | | with adherent fibrin | | | | | Lymphovascular and | | | | | perineural invasion | | | | | identified Metastatic | | | | | carcinoma in two of two | | | | | lymph nodes (2/2) | | | | | Resection margins are | | | | | negative for tumor | | | | | AJCC pathologic stage | | | | | (8th edition): | | | | | [id number]: The | | | | | tumor is predominately | | | | | solid, immunostains for | | | | | p63 (squamous | | | | | differentiation) and | | | | | TTF-1 are negative (Q7). | | | | | There are areas with | | | | | definite gland formation | | | | | and signet ring like | | | | | cells are seen in some | | | | | of the lymph nodes. | | | | | There is extensive | | | | | lymphovascular invasion. | | | | | The tumor present on | | | | | the pleural surface is | | | | | TTF-1 positive and | | | | | calretinin negative | | | | | (Q11).R. Lung, left main | | | | | bronchial margin, | | | | | biopsy: Negative for | | | | | carcinomaCase seen | | | | | by:Yi | | | | | MD Mikhail - | | | | | Surgical Pathology | | | | | Fellow Jenny | | | | | MD Rubina, PhD | | | | | | | | | | PathologistPathology, | | | | | [facility] | | | | | University electronic | | | | | signature indicates that | | | | | I have personally | | | | | reviewed all diagnostic | | | | | slides, the gross and/or | | | | | microscopic portion of | | | | | this report and | | | | | formulated the final | | | | | diagnosis.Me | | | + + + + + | SYNOPTIC REPORTS | LUNG (Lung - All | | [facility] DEPARTMENT | | | Specimens) SPECIMEN | | OF PATHOLOGY | | | | | | | | Procedure: Lobect | | | | | linda Specimen | | | | | Laterality: Left | | | | | TUMOR Tumor | | | | | Site: Upper lobe | | | | | of lung Histologic | | | | | Type: Invasive | | | | | adenocarcinoma, solid | | | | | predominant | | | | | Other Subtypes | | | | | Present: acinar | | | | | Histologic | | | | | Grade: G3: Poorly | | | | | differentiated | | | | | Spread Through Air | | | | | Spaces | | | | | (ROBERTO): Not | | | | | identified | | | | | : Tumor | | | | | Size: Greatest | | | | | dimension in Centimeters | | | | | (cm): 3.2 Centimeters | | | | | (cm) Additional | | | | | Dimension in Centimeters | | | | | (cm): 2.2 | | | | | Centimeters (cm) | | | | | Additional Dimension in | | | | | Centimeters | | | | | (cm): 2.1 | | | | | Centimeters (cm) Tumor | | | | | Focality: Single | | | | | tumor Tumor | | | | | Extent: | | | | | Visceral Pleura | | | | | Invasion: Present | | | | | Direct Invasion of | | | | | Adjacent | | | | | Structures: No | | | | | adjacent structures | | | | | present Accessory | | | | | Findings: | | | | | Treatment | | | | | Effect: No known | | | | | presurgical therapy | | | | | Lymphovascular | | | | | Invasion: Present | | | | | | | | | | : Lymphatic | | | | | | | | | | : Arterial | | | | | MARGINS | | | | | Margins: All | | | | | margins are uninvolved | | | | | by tumor Margins | | | | | Examined: Bronchi | | | | | al Margins | | | | | Examined: Vascula | | | | | r Margins | | | | | Examined: Parench | | | | | ymal Distance of | | | | | Invasive Carcinoma from | | | | | Closest Margin in | | | | | Centimeters | | | | | (cm): 0.2 | | | | | Centimeters (cm) | | | | | Closest | | | | | Margin: Vascular | | | | | LYMPH NODES Number of | | | | | Lymph Nodes | | | | | Involved: 13 | | | | | Maria Ines Stations | | | | | Involved: 3a: | | | | | Pre-vascular Maria Ines | | | | | Stations | | | | | Involved: 7: | | | | | Subcarinal Maria Ines | | | | | Stations | | | | | Involved: 4L: | | | | | Lower paratracheal | | | | | Maria Ines Stations | | | | | Involved: 5: | | | | | Subaortic/ | | | | | aortopulmonary (AP) / AP | | | | | window Maria Ines | | | | | Stations | | | | | Involved: 6: | | | | | Para-aortic (ascending | | | | | aorta or phrenic) | | | | | Maria Ines Stations | | | | | Involved: 10L: | | | | | Hilar Maria Ines | | | | | Stations | | | | | Involved: 11L: | | | | | Interlobar Extranodal | | | | | Extension: Not | | | | | identified Number of | | | | | Lymph Nodes | | | | | Examined: 31 | | | | | Maria Ines Stations | | | | | Examined: 4R: | | | | | Lower paratracheal | | | | | Maria Ines Stations | | | | | Examined: 3a: | | | | | Pre-vascular Maria Ines | | | | | Stations | | | | | Examined: 7: | | | | | Subcarinal Maria Ines | | | | | Stations | | | | | Examined: 4L: | | | | | Lower paratracheal | | | | | Maria Ines Stations | | | | | Examined: 5: | | | | | Subaortic/ | | | | | aortopulmonary (AP) / AP | | | | | window Maria Ines | | | | | Stations | | | | | Examined: 6: | | | | | Para-aortic (ascending | | | | | aorta or phrenic) | | | | | Maria Ines Stations | | | | | Examined: 9L: | | | | | Pulmonary ligament | | | | | Maria Ines Stations | | | | | Examined: 10L: | | | | | Hilar Maria Ines | | | | | Stations | | | | | Examined: 11L: | | | | | Interlobar PATHOLOGIC | | | | | STAGE CLASSIFICATION | | | | | (pTNM, AJCC 8th Edition) | | | | | Primary Tumor | | | | | (pT): pT2a | | | | | Regional Lymph Nodes | | | | | (pN): pN2 | | | | | ADDITIONAL FINDINGS | | | | | Additional Pathologic | | | | | Findings: None | | | | | identified | | | + + + + + | Gross Description | Received are 18 | | [facility] DEPARTMENT | | | specimens fresh in | | OF PATHOLOGY | | | containers labeled with | | | | | the patient's name | | | | | (initials JAO) and | | | | | medical record number | | | | | [id number]. Lymph node, | | | | | level 7: Received fresh | | | | | for intraoperative | | | | | consultation, labeled | | | | | "level 7-3" are multiple | | | | | red-fairbanks soft tissue | | | | | fragment measuring 2.5 x | | | | | 1.7 x 0.8 cm in loose | | | | | aggregate. The specimen | | | | | is entirely submitted | | | | | for frozen evaluation | | | | | and subsequently | | | | | submitted for permanent | | | | | section in 2 cassettes, | | | | | labeled A1 and A2.B. | | | | | Lymph node, level 4R: | | | | | Received fresh for | | | | | intraoperative | | | | | consultation, labeled | | | | | "level 4R-4" are 4 | | | | | fragments of yellow to | | | | | black soft tissue | | | | | measuring 0.9 x 0.8 x | | | | | 0.4 cm in loose | | | | | aggregate. The specimen | | | | | is entirely submitted | | | | | for frozen section and | | | | | subsequently submitted | | | | | for permanent section in | | | | | 1 cassette, labeled | | | | | B1.C. Lymph node, | | | | | additional level 7: | | | | | Received fresh for | | | | | intraoperative | | | | | consultation, labeled | | | | | "additional level 7-5" | | | | | are multiple red-fairbanks | | | | | fragments of soft tissue | | | | | measuring 2.0 x 1.0 x | | | | | 0.5 cm in loose | | | | | aggregate. The specimen | | | | | is entirely submitted | | | | | for frozen section and | | | | | subsequently submitted | | | | | for permanent section in | | | | | 1 cassette, labeled | | | | | C1.D. Lymph node, level | | | | | 9L: Received fresh for | | | | | intraoperative | | | | | consultation, labeled | | | | | "level 9L-6" is a 1.7 x | | | | | 1.2 x 0.3 cm aggregate | | | | | of fairbanks-yellow to monterroso | | | | | soft tissue fragments. | | | | | The specimen is entirely | | | | | submitted for frozen | | | | | section and subsequently | | | | | submitted for permanent | | | | | section 1 cassette, | | | | | labeled D1.E. Lymph | | | | | node, level 4L: Received | | | | | fresh for | | | | | intraoperative | | | | | consultation, labeled | | | | | "level 4L-7" is a 0.8 x | | | | | 0.5 x 0.3 cm fragment of | | | | | fairbanks-pink soft tissue. | | | | | The specimen is entirely | | | | | submitted for frozen | | | | | section and subsequently | | | | | submitted for permanent | | | | | section in 1 cassette, | | | | | labeled E1.F. Lymph | | | | | node, level 10L: | | | | | Received fresh for | | | | | intraoperative | | | | | consultation, labeled | | | | | "level 10 L-8" is a 1.9 | | | | | x 1.4 x 0.5 cm fragment | | | | | of fairbanks-pink to monterroso soft | | | | | tissue with 2 lymph | | | | | node candidates (0.4 cm | | | | | and 0.9 cm in greatest | | | | | dimension). The lymph | | | | | node candidates are | | | | | entirely submitted for | | | | | frozen evaluation. The | | | | | specimen is entirely | | | | | submitted in 2 | | | | | cassettes, with the | | | | | frozen section remnant | | | | | in F1 and the remainder | | | | | of the specimen in F2.G. | | | | | Lymph node, proximal | | | | | level 10L: Received | | | | | fresh for intraoperative | | | | | consultation, labeled | | | | | "proximal level 10 L-9" | | | | | is a 1.6 x 1.2 x 0.4 cm | | | | | aggregate of fairbanks-pink to | | | | | monterroso soft tissue | | | | | fragments. 3 lymph node | | | | | candidates, measuring | | | | | 0.4 to 1 cm in greatest | | | | | dimension, are | | | | | identified. The | | | | | specimen is entirely | | | | | submitted for frozen | | | | | evaluation and | | | | | subsequently submitted | | | | | for permanent section in | | | | | 1 cassette, labeled | | | | | G1.H. Lymph node, level | | | | | 11L: Received fresh for | | | | | intraoperative | | | | | consultation, labeled | | | | | "level 11 L-10" is a 1.8 | | | | | x 1.2 x 0.4 cm | | | | | aggregate of red-brown | | | | | soft tissue fragments. | | | | | The specimen is entirely | | | | | submitted for frozen | | | | | evaluation and | | | | | subsequently submitted | | | | | for permanent section in | | | | | 1 cassette, labeled | | | | | H1.I. Lymph node, level | | | | | 7: Received fresh for | | | | | intraoperative | | | | | consultation, labeled | | | | | "level 7-11" is a 1.8 x | | | | | 0.8 x 0.4 cm aggregate | | | | | of red-brown soft tissue | | | | | fragments. The | | | | | specimen is entirely | | | | | submitted for frozen | | | | | evaluation and | | | | | subsequently submitted | | | | | for permanent section in | | | | | 1 cassette, labeled | | | | | I1.J. Lung, AP window: | | | | | Received fresh for | | | | | intraoperative | | | | | consultation, labeled | | | | | "AP window-12" is a 1.8 | | | | | x 1.0 x 0.4 cm aggregate | | | | | of red-fairbanks soft tissue | | | | | fragments. The specimen | | | | | is entirely submitted | | | | | for frozen evaluation | | | | | and subsequently | | | | | submitted for permanent | | | | | section in 1 cassette, | | | | | labeled J1.K. Lymph | | | | | node, 11L lower lobe: | | | | | Received labeled "11 L | | | | | lower lobe-13" are | | | | | multiple fairbanks-brown to | | | | | black soft tissue | | | | | fragment measuring 3.0 x | | | | | 1.3 x 0.6 cm in loose | | | | | aggregate. The specimen | | | | | is entirely submitted | | | | | in 1 cassette, labeled | | | | | K1.L. Lymph node, level | | | | | 11L BIFURCATION: | | | | | Received fresh for | | | | | intraoperative | | | | | consultation, labeled | | | | | "level L 11 | | | | | bifurcation-14" is a 1.3 | | | | | x 0.9 x 0.3 cm fairbanks-red | | | | | to black portion of | | | | | fibroadipose tissue. | | | | | The specimen is entirely | | | | | submitted in evaluation | | | | | and subsequently | | | | | submitted for permanent | | | | | section in 1 cassette, | | | | | labeled L1.M. Lymph | | | | | node, 5-6 node: Received | | | | | labeled "5 | | | | | | | | | | 6 node-15" 3.0 x 2.1 x | | | | | 2.0 cm fairbanks round density | | | | | suggestive of lymph | | | | | node with a scant amount | | | | | of attached yellow-fairbanks, | | | | | focally hemorrhagic | | | | | fibrofatty soft tissue. | | | | | The specimen is | | | | | serially sectioned to | | | | | reveal fairbanks-white to | | | | | monterroso-black, firm, | | | | | grossly positive cut | | | | | surfaces. | | | | | Haircutter sections | | | | | are submitted in 2 | | | | | cassettes, labeled M1 | | | | | and M2.N. Lymph node, 3A | | | | | node: Received fresh | | | | | for intraoperative | | | | | consultation, labeled | | | | | "3A node-16" are 2 | | | | | fairbanks-monterroso to yellow lymph | | | | | node candidates, | | | | | measuring 0.5 cm and 0.7 | | | | | cm in greatest | | | | | dimension, with a scant | | | | | amount of attached | | | | | adipose tissue. The | | | | | specimen is entirely | | | | | submitted for frozen | | | | | section and subsequently | | | | | submitted for permanent | | | | | section in 1 cassette, | | | | | labeled N1.O. Lymph | | | | | node, 3 superior: | | | | | Received labeled "3 | | | | | superior-17" is | | | | | yellow-fairbanks to fairbanks-brown | | | | | fragment of fibrofatty | | | | | soft tissue measuring | | | | | 5.6 x 4.4 x 1.8 cm. 9 | | | | | fairbanks-brown to monterroso-black | | | | | densities suggestive of | | | | | lymph nodes, ranging | | | | | from 0.1-2.6 cm in | | | | | greatest dimension, are | | | | | identified. The largest | | | | | of these densities | | | | | exhibit fairbanks-white to | | | | | fairbanks-monterorso, firm, grossly | | | | | positive cut surfaces. | | | | | The densities are | | | | | entirely submitted in 5 | | | | | cassettes, as | | | | | follows:O1: 1 intact O2: | | | | | 3 intact O3: 3 intact | | | | | O4: 1 sectionedO5: 2.6 | | | | | cm grossly positive | | | | | density, branch sales and service representative | | | | | sectionsP. Lymph node, 3 | | | | | most superior: Received | | | | | labeled "3 most | | | | | superior-18" is a 2.3 x | | | | | 1.0 x 0.7 cm yellow-fairbanks | | | | | to monterroso-black fragment | | | | | of fibroadipose tissue | | | | | with 2 monterroso-black | | | | | apparent lymph node | | | | | fragments which measure | | | | | 0.7 cm and 0.5 cm in | | | | | greatest dimension. The | | | | | specimen is entirely | | | | | submitted in 1 cassette, | | | | | labeled P1.Q. Lung, | | | | | LEFT UPPER LOBE: | | | | | Received fresh for | | | | | intraoperative | | | | | consultation, labeled | | | | | "left upper lobe-19" is | | | | | a 175 g, 22.5 x 9.9 x | | | | | 4.5 cm lung lobe. The | | | | | margin of resection is | | | | | closed via a 3.2 cm | | | | | staple line; the staple | | | | | line is shaved and the | | | | | underlying tissue is | | | | | inked blue. The pleura | | | | | is pink-purple to | | | | | focally monterroso-black with | | | | | a 2.5 x 1.2 cm | | | | | fairbanks-yellow, firm area of | | | | | puckering located in | | | | | the apex, 3.2 cm from | | | | | the hilum of the lobe | | | | | and a 2.3 x 1.5 cm | | | | | fairbanks-white, indurated | | | | | area located adjacent to | | | | | the hilum. The pleura | | | | | in the areas of | | | | | puckering is inked | | | | | black. At the lobe | | | | | hilum, the bronchus | | | | | measures 0.9 L x 1.5 D | | | | | cm, the pulmonary artery | | | | | measures 0.5 L x 0.9 D | | | | | cm, and the pulmonary | | | | | veins measure 0.5-0.7 L | | | | | x 0.5 D cm. The | | | | | bronchial margin is | | | | | shaved and submitted en | | | | | face for frozen | | | | | evaluation (Q1). A 2.5 | | | | | x 2.4 cm fairbanks-white, | | | | | apparent intimal surface | | | | | is present at the lobe | | | | | hilum; the margin of | | | | | resection of this | | | | | apparent intimal surface | | | | | is inked green. | | | | | Sectioning reveals a 3.2 | | | | | x 2.2 x 2.1 cm | | | | | fairbanks-white to monterroso-brown | | | | | and focally hemorrhagic, | | | | | firm mass with focally | | | | | ill-defined borders | | | | | located at the lobe | | | | | hilum, 1.6 cm from the | | | | | parenchymal margin of | | | | | resection, 0.4 cm from | | | | | the bronchial margin of | | | | | resection, and 0.2 cm | | | | | from the pulmonary | | | | | artery and nearest | | | | | pulmonary vein margins. | | | | | This mass abuts the | | | | | apparent intimal surface | | | | | at the hilum, coming to | | | | | within <0.1 cm from the | | | | | intimal surface margin | | | | | of resection. This mass | | | | | corresponds to the | | | | | indurated area of pleura | | | | | located adjacent to the | | | | | hilum and grossly | | | | | appears to abut but not | | | | | involve the pleura in | | | | | this area. The mass | | | | | grossly involves the | | | | | bronchus and possibly | | | | | involves the vasculature | | | | | within the parenchyma. | | | | | An additional 2.5 x 2.2 | | | | | x 1.9 cm fairbanks-white to | | | | | mckeon-black, focally | | | | | hemorrhagic mass with | | | | | infiltrative borders is | | | | | present at the periphery | | | | | within the apex of the | | | | | lobe, 3.7 cm from the | | | | | hilar mass, 5.4 cm from | | | | | bronchial margin, 6.2 cm | | | | | from pulmonary margin, | | | | | and 7.1 cm from the | | | | | parenchymal margin of | | | | | resection. This apical | | | | | mass corresponds to the | | | | | 2.5 cm area of pleural | | | | | puckering and abuts the | | | | | pleura in this area but | | | | | does not grossly appear | | | | | to extend through the | | | | | pleura. The remaining | | | | | parenchyma is fairbanks-brown | | | | | with focal areas of | | | | | mildly dilated airspaces | | | | | and a 4.2 x 2.4 x 0.5 | | | | | fairbanks-mckeon area of | | | | | subpleural induration. | | | | | 3 densities suggestive | | | | | of lymph nodes, | | | | | measuring 1.4 cm in | | | | | greatest dimension, are | | | | | identified near the | | | | | hilum, with 2 densities | | | | | directly adjacent to the | | | | | 3.2 cm hilar mass. | | | | | Haircutter sections | | | | | are submitted in 14, as | | | | | follows:Q1: Bronchial | | | | | margin, en face, frozen | | | | | section remnantQ2: | | | | | Vascular margins, en | | | | | faceQ3: Parenchymal | | | | | margin, perpendicular | | | | | sectionsQ4: 3.2 cm | | | | | hilar mass, to include | | | | | relationship to | | | | | pulmonary artery, | | | | | pleural surface, and | | | | | adjacent lymph nodeQ5: | | | | | Remainder of lymph node | | | | | from A4Q3-N4: 3.2 cm | | | | | hilar mass, to include | | | | | relationship to | | | | | bronchus, pleural | | | | | surface, and apparent | | | | | intimal surface and | | | | | margin of | | | | | resectionQ8-Q10: 2.5 cm | | | | | apical mass, | | | | | branch sales and service representative sections, | | | | | to include relationship | | | | | with pleura in | | | | | Q9-Q10Q11: Subpleural | | | | | induration, | | | | | branch sales and service representative | | | | | [id number]: Uninvolved | | | | | parenchyma, | | | | | branch sales and service representative | | | | | [id number]: 1 density | | | | | suggestive of lymph | | | | | node, [id number]: 1 | | | | | density suggestive of | | | | | lymph node, to include | | | | | relationship to 3.2 cm | | | | | hilar massR. Lung, left | | | | | main bronchial margin: | | | | | Received labeled "left | | | | | main bronchial | | | | | margin-20" is a | | | | | fairbanks-brown to brown-red | | | | | fragment of soft tissue | | | | | measuring 1.3 x 0.5 x | | | | | 0.4 cm. The specimen is | | | | | entirely submitted in 1 | | | | | cassette, labeled | | | | | R1.kls | | | + + + + + | Intraoperative use | Frozen section | | [facility] DEPARTMENT | | only - Final | diagnosis: A1. Lymph | | OF PATHOLOGY | | diagnosis listed | node. level 7: Negative | | | | separately | for malignancy | | | | | (0/1)Frozen section | | | | | pathologist(s): Ravi | | | | | MD Devonte, PhD | | | | | | | | | | PathologistPathology, | | | | | [facility] | | | | | [facility] | | | | | diagnosis: A2. Lymph | | | | | node. level 7: Negative | | | | | for malignancy | | | | | (0/1)Frozen section | | | | | pathologist(s): Ravi | | | | | MD Devonte, PhD | | | | | | | | | | PathologistPathology, | | | | | [facility] | | | | | [facility] | | | | | diagnosis: B1. Lymph | | | | | node. level 4R: Negative | | | | | for malignancy | | | | | (0/1)Frozen section | | | | | pathologist(s): Ravi | | | | | MD Devonte, PhD | | | | | | | | | | PathologistPathology, | | | | | [facility] | | | | | [facility] | | | | | diagnosis: C1. Lymph | | | | | node. additional level | | | | | 7: Negative for | | | | | malignancy (0/1)Frozen | | | | | section pathologist(s): | | | | | Ravi Whitney MD, PhD | | | | | | | | | | PathologistPathology, | | | | | [facility] | | | | | [facility] | | | | | diagnosis: D1. Lymph | | | | | node. level 9L: Negative | | | | | for malignancy.Frozen | | | | | section pathologist(s): | | | | | Ravi Whitney MD, PhD | | | | | | | | | | PathologistPathology, | | | | | [facility] | | | | | [facility] | | | | | diagnosis: E1. 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 Met | | | | | GRCAIELA.Frozen section | | | | | pathologist(s): Ravi | | | | | MD Devonte PhD | | | | | | | | | | PathologistPathology, | | | | | [facility] | | | | | [facility] | | | | | diagnosis: F1. Lymph | | | | | node. level 10L: | | | | | Negative for | | | | | malignancy.Frozen | | | | | section pathologist(s): | | | | | Ravi Whitney MD, PhD | | | | | | | | | | | | | | | PathologistPathology, | | | | | [facility] | | | | | [facility] | | | | | diagnosis: G1. Lymph | | | | | node. proximal level | | | | | 10L: Positive for | | | | | malignancy.Frozen | | | | | section pathologist(s): | | | | | Ravi Whitney MD, PhD | | | | | | | | | | | | | | | PathologistPathology, | | | | | [facility] | | | | | [facility] | | | | | diagnosis: H1. Lymph | | | | | node. level 11L: | | | | | Positive for malignancy | | | | | (tumor and | | | | | lymphatics)Frozen | | | | | section pathologist(s): | | | | | Ravi Whitney MD, PhD | | | | | | | | | | | | | | | PathologistPathology, | | | | | [facility] | | | | | [facility] | | | | | diagnosis: I1. Lymph | | | | | node. level 7: Negative | | | | | for malignancy.Frozen | | | | | section pathologist(s): | | | | | Ravi Whitney MD, PhD | | | | | | | | | | | | | | | PathologistPathology, | | | | | [facility] | | | | | [facility] | | | | | diagnosis: J1. Lung. AP | | | | | window: Positive for | | | | | malignancy.Frozen | | | | | section pathologist(s): | | | | | Ravi Whitney MD, PhD | | | | | | | | | | | | | | | PathologistPathology, | | | | | [facility] | | | | | [facility] | | | | | diagnosis: L1. Lymph | | | | | node. level 11L | | | | | BIFURCATION: Positive | | | | | for malignancyFrozen | | | | | section pathologist(s): | | | | | Ravi Whitney MD, PhD | | | | | | | | | | | | | | | PathologistPathology, | | | | | [facility] | | | | | [facility] | | | | | diagnosis: N1. Lymph | | | | | node. 3A node: No | | | | | evidence of | | | | | carcinomaFrozen section | | | | | pathologist(s): Nomi | | | | | MD Omaira | | | | | | | | | | [facility]ologistOH[facility] | | | | | Pathology, [facility] | | | | | [facility] | | | | | diagnosis: Q1. Lung. | | | | | Left upper lobe: | | | | | Bronchial margin | | | | | uninvolved by | | | | | carcinomaFrozen section | | | | | pathologist(s): Nomi | | | | | MD Omaira | | | | | | | | | | Pathologist[facility] | | | | | Pathology, [place] | | | | | [place] that point | | | + + + + + | Ancillary | Analyte specific | | [facility] DEPARTMENT | | Information | reagents are used in | | OF PATHOLOGY | | | many laboratory tests | | | | | necessary for standard | | | | | medical care. This test | | | | | was developed and its | | | | | performance | | | | | characteristics | | | | | determined by [facility] | | | | | laboratories. It has | | | | | not been cleared or | | | | | approved by the [place] Food | | | | | and Drug Administration | | | | | (FDA). FDA does not | | | | | require this test to go | | | | | through premarket FDA | | | | | review. This test is | | | | | used for clinical | | | | | purposes. It should not | | | | | be regarded as | | | | | investigational or for | | | | | research. This | | | | | laboratory is certified | | | | | under the Clinical | | | | | Laboratory Improvement | | | | | Amendments (CLIA) as | | | | | qualified to perform | | | | | high complexity clinical | | | | | laboratory testing. | | | + + + + + + + | Specimen | + + | Tissue - Lymph node | + + + + + + + | Performing | Address | City/State/Zipcode | Phone Number | | Organization | | | | + + + + + | [facility] | [address] | [place] [address] | | | PATHOLOGY | [address] | | | + + + + + FINE NEEDLE ASPIRATE (12/04/2018 8:06 AM) + + + + + | Component | Value | Ref Range | Performed At | + + + + + | Clinical History | 68 year-old woman with a | | [facility] DEPARTMENT | | | PET-avid left upper | | OF PATHOLOGY | | | lobe nodule. | | | + + + + + | Final Pathologic | A. Lymph node, level 7, | | [facility] | | Diagnosis | ultrasound guided fine | | SERVICES, | | | needle aspiration: | | [facility] | | | Consistent with lymph | | HEALTH + | | | node sampling Negative | | HEALING | | | for carcinomaB. Lymph | | | | | node, level 4L, | | | | | ultrasound guided fine | | | | | needle aspiration: | | | | | Consistent with lymph | | | | | node sampling No | | | | | definite carcinoma cells | | | | | identified See | | | | | commentComment (part B): | | | | | Epithelial cells are | | | | | seen, favored to | | | | | represent reactive | | | | | respiratory epithelial | | | | | cells [cytomorphology is | | | | | compared to the | | | | | corresponding surgical | | | | | pathology case | | | | | ([id number])]. No | | | | | definite carcinoma cells | | | | | seen are seen in this | | | | | sampling, however see | | | | | case [id number]. Case | | | | | seen by:Kathryn | | | | | [facility] - | | | | | CytotechnologistTodd | | | | | MD Steve | | | | | | | | | | Pathology ResidentAaron | | | | | HalfDO марина | | | | | | | | | | Cytopathology | | | | | FellowMick MD Shaan | | | | | | | | | | | | | | | PathologistPathology, | | | | | [facility] | | | | | [place] My electronic | | | | | signature indicates | | | | | that I have personally | | | | | reviewed all diagnostic | | | | | slides, the gross and/or | | | | | microscopic portion of | | | | | this report and | | | | | formulated the final | | | | | diagnosis. | | | + + + + + | Immediate Impression | A: Evaluation episode | | [facility] DEPARTMENT | | | #1: Pass #1-3: lymph | | OF PATHOLOGY | | | node sampled B: | | | | | Evaluation episode #1: | | | | | Pass #1-3: QNSImmediate | | | | | Impression evaluation | | | | | was performed by - Jeovanny | | | | | MD Shaan | | | | | | | | | | PathologistPathology, | | | | | [facility] | | | | | [place] | | | + + + + + | Procedure Details | A. FNA by clinician. 3 | | [facility] DEPARTMENT | | | passes yielded fluid for | | OF PATHOLOGY | | | 1 SurePath slide, 5 | | | | | air-dried and 2 fixed | | | | | slide(s). A cell block | | | | | was prepared and | | | | | examined.B. FNA by | | | | | clinician. 3 passes | | | | | yielded fluid for 1 | | | | | SurePath slide, 3 | | | | | air-dried and 3 fixed | | | | | slide(s). A cell block | | | | | was prepared and | | | | | examined. | | | + + + + + + + | Specimen | + + | Tissue - Lymph node | + + + + + + + | Performing | Address | City/State/Zipcode | Phone Number | | Organization | | | | + + + + + | [facility] | [address] | [place] [address] | | | [facility] | | | | | HEALTH + HEALING | | | | + + + + + | [facility] DEPARTMENT OF | [address] | [place] [address] | | | PATHOLOGY | [address] | | | + + + + + CAPILLARY BLOOD GLUCOSE (NO CHG), POC (12/04/2018 6:50 AM) + +-------+ + + | Component | Value | Ref Range | Performed At | + +-------+ + + | BLOOD GLUCOSE, POC | 92 | 60 - 99 mg/dL | [facility] | | | | | MARISSA JAIMES OF | | | | | CARE TESTS | + +-------+ + + + + + + + | Performing | Address | City/State/Zipcode | Phone Number | | Organization | | | | + + + + + | [facility] | [address] | [place], [place] | | | [facility] | [address] | [address] | | | TESTS | | | | + + + + + INTRAPROCEDURE IMAGING (12/04/2018 6:13 AM) + + + | Narrative | Performed At | + + + | See admission or procedure notes for details of any intraprocedure | | | images obtained. | | + + + in this encounter Visit Diagnoses Not on filein this encounter Admitting Diagnoses + + | Diagnosis | + + | Neoplasm | + + Administered Medications + +--------+ +--------+------+------+ | Medication Order | MAR | Action | Dose | Rate | Site | | | Action | Date | | | | + +--------+ +--------+------+------+ | acetaminophen (TYLENOL) tablet | Given | | 650 mg | | | | 650 mg 650 mg, oral, EVERY 6 | | 9 16:04 | | | | | HOURS, First dose on Sun12/12/18 | | PDT | | | | | at 1600, Until Discontinued | | | | | | + +--------+ +--------+------+------+ +-------+ +--------+---+---+ | Given | | 650 mg | | | | | 9 21:18 | | | | | | PDT | | | | +-------+ +--------+---+---+ | Given | | 650 mg | | | | | 9 08:58 | | | | | | PDT | | | | +-------+ +--------+---+---+ +---+---+ | | | +---+---+ + +-------+ +--------+---+---+ | beclomethasone (QVAR) 40 | Given | | 1 puff | | | | mcg/actuation inhaler 1 puff 1 | | 9 09:00 | | | | | puff, inhalation, TWICE DAILY, | | PDT | | | | | First dose on Sun12/04/18 at | | | | | | | 2100, Until Discontinued | | | | | | + +-------+ +--------+---+---+ +-------+ +--------+---+---+ | Given | | 1 puff | | | | | 9 21:18 | | | | | | PDT | | | | +-------+ +--------+---+---+ | Given | | 1 puff | | | | | 9 08:58 | | | | | | PDT | | | | +-------+ +--------+---+---+ +---+---+ | | | +---+---+ + +-------+ +--------+---+---+ | buPROPion (WELLBUTRIN) tablet | Given | | 100 mg | | | | 100 mg 100 mg, oral, THREE TIMES | | 9 16:03 | | | | | DAILY, First dose on Jenniffer 12/12/18 | | PDT | | | | | at 1600, Until Discontinued | | | | | | + +-------+ +--------+---+---+ +-------+ +--------+---+---+ | Given | | 100 mg | | | | | 9 21:18 | | | | | | PDT | | | | +-------+ +--------+---+---+ | Given | | 100 mg | | | | | 9 08:58 | | | | | | PDT | | | | +-------+ +--------+---+---+ +---+---+ | | | +---+---+ + +-------+ +-------+---+---------+ | enoxaparin (LOVENOX) injection | Given | | 40 mg | | Abdomen | | 40 mg 40 mg, subcutaneous, EVERY | | 9 21:20 | | | | | EVENING, First dose on Jenniffer | | PDT | | | | | 12/05/18 at 2100, Until | | | | | | | Discontinued | | | | | | + +-------+ +-------+---+---------+ +-------+ +-------+---+---------+ | Given | | 40 mg | | Abdomen | | | 9 21:19 | | | | | | PDT | | | | +-------+ +-------+---+---------+ | Given | | 40 mg | | Abdomen | | | 9 21:18 | | | | | | PDT | | | | +-------+ +-------+---+---------+ +---+---+ | | | +---+---+ + +-------+ +------+---+---+ | estradiol (ESTRACE) tablet 2 mg | Given | | 2 mg | | | | 2 mg, oral, DAILY, First dose | | 9 12:54 | | | | | on Sun12/13/18 at 1100, Until | | PDT | | | | | Discontinued | | | | | | + +-------+ +------+---+---+ +-------+ +------+---+---+ | Given | | 2 mg | | | | | 9 08:57 | | | | | | PDT | | | | +-------+ +------+---+---+ +---+---+ | | | +---+---+ + +-------+ +--------+---+---+ | HYDROmorphone (DILAUDID) | Given | | 0.2 mg | | | | injection 0.2-0.5 mg 0.2-0.5 mg, | | 9 03:51 | | | | | intravenous, EVERY 6 HOURS | | PDT | | | | | NEEDED, Starting 12/09/18 at | | | | | | | 0958, Until 12/14/18 at 1814, | | | | | | | pain not covered by PO pain | | | | | | | medications | | | | | | + +-------+ +--------+---+---+ +-------+ +--------+---+---+ | Given | | 0.2 mg | | | | | 9 09:05 | | | | | | PDT | | | | +-------+ +--------+---+---+ | Given | | 0.5 mg | | | | | 9 00:14 | | | | | | PDT | | | | +-------+ +--------+---+---+ +---+---+ | | | +---+---+ + +-------+ +--------+---+---+ | levothyroxine tablet 50 mcg 50 | Given | | 50 mcg | | | | mcg, oral, BEFORE BREAKFAST, | | 9 06:31 | | | | | First dose on 12/13/18 at | | PDT | | | | | 0630, Until Discontinued | | | | | | + +-------+ +--------+---+---+ +-------+ +--------+---+---+ | Given | | 50 mcg | | | | | 9 06:27 | | | | | | PDT | | | | +-------+ +--------+---+---+ +---+---+ | | | +---+---+ + + + +---------+---+ + | lidocaine (LIDODERM) 5 % patch | Applied | | 1 patch | | Left Mid | | 1 patch 1 patch, transdermal, | Patch | 9 18:25 | | | Back | | EVERY 24 HOURS, First dose on Sun | | PDT | | | | | 12/04/18 at 1815, Until | | | | | | | Discontinued | | | | | | + + + +---------+---+ + + + +---------+---+---------+ | Applied Patch | | 1 patch | | Chest | | | 9 18:03 | | | | | | PDT | | | | + + +---------+---+---------+ | Applied Patch | | 1 patch | | Abdomen | | | 9 16:21 | | | | | | PDT | | | | + + +---------+---+---------+ +---+---+ | | | +---+---+ + +-------+ +------+---+ + | lidocaine PF (XYLOCAINE MPF) 10 | Given | | 6 mL | | Surgical | | mg/mL (1 %) injection | | 9 15:28 | | | Site | | INTRAPROCEDURE PRN, Starting Sat | | PDT | | | | | 12/07/18 at 1528, Until Sat | | | | | | | 12/07/18 at 1541 | | | | | | + +-------+ +------+---+ + +---+---+ | | | +---+---+ + +-------+ +------+---+---+ | menthol (sugar free) (COUGH | Given | | 5 mg | | | | DROP) lozenge 5 mg 5 mg (1 | | 9 16:20 | | | | | lozenge), oral, NEEDED, | | PDT | | | | | Starting 12/13/18 at 1614, | | | | | | | Until 12/14/18 at 1814, sore | | | | | | | throat | | | | | | + +-------+ +------+---+---+ +-------+ +------+---+---+ | Given | | 5 mg | | | | | 9 11:52 | | | | | | PDT | | | | +-------+ +------+---+---+ +---+---+ | | | +---+---+ + +-------+ +-------+---+---+ | omeprazole (PRILOSEC) capsule | Given | | 20 mg | | | | 20 mg 20 mg, oral, BEFORE | | 9 06:31 | | | | | BREAKFAST, First dose on Fri | | PDT | | | | | 12/13/18 at 0630, Until | | | | | | | Discontinued | | | | | | + +-------+ +-------+---+---+ +-------+ +-------+---+---+ | Given | | 20 mg | | | | | 9 06:27 | | | | | | PDT | | | | +-------+ +-------+---+---+ +---+---+ | | | +---+---+ + +-------+ +------+---+---+ | ondansetron (ZOFRAN) injection | Given | | 4 mg | | | | 4 mg 4 mg, intravenous, EVERY 8 | | 9 14:33 | | | | | HOURS NEEDED, Starting Wed | | PDT | | | | | 12/04/18 at 1744, Until Sat | | | | | | | 12/14/18 at 1814, nausea/vomiting, | | | | | | | first line | | | | | | + +-------+ +------+---+---+ +-------+ +------+---+---+ | Given | | 4 mg | | | | | 9 23:20 | | | | | | PDT | | | | +-------+ +------+---+---+ | Given | | 4 mg | | | | | 9 23:28 | | | | | | PDT | | | | +-------+ +------+---+---+ +---+---+ | | | +---+---+ + +-------+ +-------+---+---+ | oxyCODONE (immediate release) | Given | | 20 mg | | | | (ROXICODONE) tablet 10-20 mg | | 9 02:30 | | | | | 10-20 mg, oral, EVERY 4 HOURS | | PDT | | | | | NEEDED, Starting Jenniffer 12/12/18 at | | | | | | | 1241, Until 12/14/18 at 1814, | | | | | | | severe pain | | | | | | + +-------+ +-------+---+---+ +-------+ +-------+---+---+ | Given | | 20 mg | | | | | 9 06:27 | | | | | | PDT | | | | +-------+ +-------+---+---+ | Given | | 20 mg | | | | | 9 10:39 | | | | | | PDT [...] TWICE DAILY NEEDED, | | | Starting Jenniffer 12/12/18 at 1241, | | | Until 12/14/18 at 1814, | | | constipation | | + +---+ | | | + +---+ + +-------+ +--------+---+---+ | triamterene-hydrochlorothiazide | Given | | 1 each | | | | (MAXZIDE) 18.75-12.5 mg oral | | 9 08:56 | | | | | dose 1 each 1 each, oral, DAILY, | | PDT | | | | | First dose on Sun12/13/18 at | | | | | | | 0900, Until Discontinued | | | | | | + +-------+ +--------+---+---+ +-------+ +--------+---+---+ | Given | | 1 each | | | | | 9 08:57 | | | | | | PDT | | | | +-------+ +--------+---+---+ +---+---+ | | | +---+---+ in this encounter
--- OUTSIDE RECORDS SUMMARY | ~2018-12-15 | XMS | Encounter Summary ---
Demographics + + + | Address | [address] | | | [place] [address] | + + + | Home Phone [...] Author + + + | Author | [facility] | + + + | Organization | [facility] | + + + | Address [...] Team Providers + +------+ + | Care Pinion Staker Name | Role | Phone | + +------+ + | Lauryn Stuart | PCP | | + +------+ + Encounter Details +--------+ + + + + | Date | Type | Department | Care Team | Description | +--------+ + + + + | 11/26/ | Hospital | Diagnostics at [facility] | [facility] | | | 2019 | Encounter | [address] | [address] | | | | | [address] | [facility], | | | | | Mailcode: [id number] | [place] [address] | | | | | [address] | | | | | | [place], [place] | | | | | | [address] | | | | | | [phone] | | | +--------+ + + + [...] + + + as of this encounter Medications at Time [...] +--------+---------+ + + as of this encounter Plan [...] Rd | | | | | | [place], [place] | | | | | | [address] | | | | | | [phone] | | | | | | | [...] + + + in this encounter Results SPIROMETRY BEFORE / AFTER BRONCHODIL, [facility] (11/26/2018 1:31 PM) + + + + + | Component | Value | Ref Range | Performed At | + + + + + | PULMONARY | Site: [facility] | | [facility] | | INTERPRETATION | [facility] | | DIAGNOSTICS - | | | [facility], | | PULMONARY | | | [place], [place], | | FUNCTION | | | [id number]: | | | | | [id number] Name: WINNEI | | | | | SUSSY Lopez Date: | | | | | 11/26/2018 Second ID: | | | | | [id number]: | | | | | Sara HurstAge: | | | | | 68 : | | | | | 1950 Sex: | | | | | Female Race: | | | | | CaucasianHeight: | | | | | 162.50 Cms Weight: | | | | | 59.00 Kgs BSA: | | | | | 1.63Order IDs: | | | | | [id number] | | | | | Test(s): <SPIROMETRY | | | | | BEFORE / AFTER | | | | | BRONCHODIL>Diagnosis: | | | | | D49.9 neoplasmDyspnea: | | | | | After any | | | | | exertion Cough: | | | | | Productive Wheeze: | | | | | FrequentTbco Prod: | | | | | Cigarette Yrs Smk: | | | | | 10.0 Pks/Day: | | | | | 0.3Medications: | | | | | albuterol, qvarPost Test | | | | | Comments: Patient | | | | | height and weight | | | | | reviewed. Good | | | | | patient effort & | | | | | cooperation. The | | | | | results of this test | | | | | meet the ATS standards | | | | | for acceptability and | | | | | repeatability.Review | | | | | Status: | | | | | Completed+Posted+Locked | | | | | | | | | | | | | | | | | | | | Pre-Bronch | | | | | Post-Bronch | | | | | | | | | | | | | | | Pred Actual | | | | | %Pred Actual | | | | | %ChngSPIROMETRYFVC | | | | | (L) | | | | | | | | | | 3.07 | | | | | 2.81 | | | | | 91 | | | | | FEV1 | | | | | (L) | | | | | | | | | | 2.33 | | | | | 2.20 | | | | | 94 | | | | | FEV1/FVC | | | | | (%) | | | | | | | | | | 76 | | | | | 78 102 | | | | | FEF | | | | | 25% | | | | | (L/sec) | | | | | 4.79 | | | | | | | | | | 5.05 105 | | | | | FEF | | | | | 50% | | | | | (L/sec) | | | | | 3.40 | | | | | 2.55 | | | | | 74 | | | | | FEF 75% | | | | | (L/sec) | | | | | 1.03 | | | | | 0.63 | | | | | 60 | | | | | FEF 25-75% | | | | | (L/sec) | | | | | 2.00 | | | | | 1.79 | | | | | 89 | | | | | FEF Max | | | | | (L/sec) | | | | | 5.80 | | | | | | | | | | 6.06 104 | | | | | FIVC | | | | | | | | | | (L) | | | | | | | | | | 2.45 | | | | | | | | | | FIF | | | | | 50% | | | | | (L/sec) | | | | | 4.37 | | | | | | | | | | 5.04 115 | | | | | FIF | | | | | Max | | | | | (L/sec) | | | | | | | | | | | | | | | 5.21 | | | | | | | | | | Expiratory Time | | | | | (sec) | | | | | | | | | | 7.78 | | | | | | | | | | Back Extrap Vol | | | | | (L) | | | | | | | | | | 0.08 | | | | | | | | | | Time To FEFmax | | | | | (sec) | | | | | | | | | | 0.065 | | | | | | | | | | LUNG | | | | | VOLUMESDIFFUSIONDLCOunc | | | | | (ml/min/mmHg) | | | | | | | | | | 17.19 15.95 | | | | | 92 | | | | | DLCOadj | | | | | (ml/min/mmHg) | | | | | | | | | | 17.19 17.46 10 | | | | | 1 | | | | | DL/VA | | | | | (ml/min/mmHg/L) | | | | | 3.40 | | | | | 3.86 113 | | | | | VA | | | | | (L) | | | | | | | | | | 5.05 | | | | | 4.53 | | | | | 89 | | | | | BHT | | | | | (sec) | | | | | | | | | | 10.38 | | | | | | | | | | IVC | | | | | (L) | | | | | | | | | | | | | | | 2.86 | | | | | | | | | | TLC (SB) | | | | | (L) | | | | | | | | | | 4.68 | | | | | | | | | | BLOOD | | | | | GASESHgb | | | | | (gm/dL) | | | | | | | | | | | | | | | 10.9 | | | | | | | | | | Interpretation: | | | | | INTERPRETATION: | | | + + + + + | FVC PRE | 2.81 | 3.07 L | [facility] | | | | | DIAGNOSTICS - | | | | | PULMONARY | | | | | FUNCTION | + + + + + | FVC PRE (%REF) | 91 | % | [facility] | | | | | DIAGNOSTICS - | | | | | PULMONARY | | | | | FUNCTION | + + + + + | FEV1 PRE | 2.20 | 2.33 L | [facility] | | | | | DIAGNOSTICS - | | | | | PULMONARY | | | | | FUNCTION | + + + + + | FEV1 PRE (%REF) | 94 | % | [facility] | | | | | DIAGNOSTICS - | | | | | PULMONARY | | | | | FUNCTION | + + + + + | FEV1/FVC PRE | 78 | 76 % | [facility] | | | | | DIAGNOSTICS - | | | | | PULMONARY | | | | | FUNCTION | + + + + + | FEV1/FVC PRE (%REF) | 102 | % | [facility] | | | | | DIAGNOSTICS - | | | | | PULMONARY | | | | | FUNCTION | + + + + + | PEF PRE | 6.06 | 5.80 L/sec | [facility] | | | | | DIAGNOSTICS - | | | | | PULMONARY | | | | | FUNCTION | + + + + + | PEF PRE (%REF) | 104 | % | [facility] | | | | | DIAGNOSTICS - | | | | | PULMONARY | | | | | FUNCTION | + + + + + | KLN11-60% PRE | 1.79 | 2.00 L/sec | [facility] | | | | | DIAGNOSTICS - | | | | | PULMONARY | | | | | FUNCTION | + + + + + | YMO77-12% PRE (%REF) | 89 | % | [facility] | | | | | DIAGNOSTICS - | | | | | PULMONARY | | | | | FUNCTION | + + + + + | FIF50% PRE | 5.04 | 4.37 L/sec | [facility] | | | | | DIAGNOSTICS - | | | | | PULMONARY | | | | | FUNCTION | + + + + + | FIF50% PRE (%REF) | 115 | % | [facility] | | | | | DIAGNOSTICS - | | | | | PULMONARY | | | | | FUNCTION | + + + + + | DLCO PRE | 15.95 | 17.19 ml/min/mmHg | [facility] | | | | | DIAGNOSTICS - | | | | | PULMONARY | | | | | FUNCTION | + + + + + | DLCO PRE (%REF) | 92 | % | [facility] | | | | | DIAGNOSTICS - | | | | | PULMONARY | | | | | FUNCTION | + + + + + | DLCO ADJ PRE | 17.46 | 17.19 ml/min/mmHg | [facility] | | | | | DIAGNOSTICS - | | | | | PULMONARY | | | | | FUNCTION | + + + + + | DLCO ADJ PRE (%REF) | 101 | % | [facility] | | | | | DIAGNOSTICS - | | | | | PULMONARY | | | | | FUNCTION | + + + + + | DLCO/VA ADJ PRE | 3.86 | ml/min/mmHg/L | [facility] | | | | | DIAGNOSTICS - | | | | | PULMONARY | | | | | FUNCTION | + + + + + | DLCO/VA ADJ PRE | 113 | % | [facility] | | (%REF) | | | DIAGNOSTICS - | | | | | PULMONARY | | | | | FUNCTION | + + + + + + + + | Narrative | Performed At | + + + | | | + + + + + + + + | Performing | Address | City/State/Zipcode | Phone Number | | Organization | | | | + + + + + | [facility] | [address] | [place], [place] | | | DIAGNOSTICS - | [address] | [address] | | | PULMONARY FUNCTION | | | | + + + + + in this encounter Visit Diagnoses + + | Diagnosis | + + | Neoplasm | + + | Neoplasm of unspecified nature, site unspecified | + +
--- OUTSIDE RECORDS SUMMARY | ~2018-12-15 | XMS | Encounter Summary ---
Demographics + + + | Address | [address] | | | [place] [address] | + + + | Home Phone | | + + + | Preferred Language | Unknown | + + + | Marital Status | Single | + + + | Evangelical Affiliation | NRP | + + + | Race | White | + + + | Ethnic Group | Not or | + + + Author + + + | Author | [facility] | + + + | Organization | [facility] | + + + | Address | Unknown | + + + | Phone | Unavailable | + + + Support + + +---------+ + | Name | Relationship | Address | Phone | + + +---------+ + | oCllins Gant | ECON | Unknown | | + + +---------+ + | Laura Allred | ECON | Unknown | | + + +---------+ + Care Team Providers + +------+ + | Care Screw Machine Operator Name | Role | Phone | + +------+ + | Lauryn Stuatr | PCP | | + +------+ + Encounter Details +--------+ + + + + | Date | Type | Department | Care Team | Description | +--------+ + + + + | 11/22/ | Procedure | Radiology/Imaging | | | | 2019 | Pass | Lab at [facility] [address] | | | | | | [address] | | | | | | Mailcode: [address] | | | | | | [facility] | | | | | | and Healing, [address]rd | | | | | | Floor [place], [place] | | | | | | [address] | | | | | | [phone] | | | +--------+ + + + [...] [address] | | | | | | [place], [place] | | | | | | [address] | | | | | | [phone] | | | | | | | | +--------+---------+ + + + as of this encounter Visit Diagnoses Not on filein this encounter
--- OUTSIDE RECORDS SUMMARY | ~2018-12-15 | XMS | Encounter Summary ---
Demographics + + + | Address | [address] | | | [place] [address] | + + + | Home Phone | | + + + | Preferred Language | Unknown | + + + | Marital Status | Single | + + + | Lutheran Affiliation | NRP | + + + [...] Team Providers + +------+ + | Care Financial Services Education Consultant Name | Role | Phone | + +------+ + | Lauryn Stuart | PCP | | + +------+ + Reason for Visit + + + | Reason | Comments | + + + | Pre-operative | | | evaluation | | + + + Encounter Details +--------+ + + + + | Date | Type | Department | Care Team | Description | +--------+ + + + + | 12/02/ | Telephone-S | Preoperative | | Pre-operative | | 2019 | cheduled | [facility] at | | evaluation | | | | [facility] | | | | | | [address] | | | | | | Mail Code: OC8PM | | | | | | [facility] | | | | | | and Healing, | | | | | | [address] | | | | | | [place], [place] | | | | | | [address] | | | | | | [phone] | | | +--------+ + + + + Anesthesia Record + + + + + | Procedure Name | Responsible | Anesthesia Start | Anesthesia Stop Time | | | Anesthesiologist | Time | | + + + + + | ENDOBRONCHIAL | Isiah Abbott MD | 12/04/18 0728 | 12/04/18 1556 | | ULTRASOUND (N/A | | | | | Chest) | | | | + + + + + +----+---+ + + | Da | T | Event | Comment | | te | i | | | | | m | | | | | e | | | +----+---+ + + | 04 | 0 | Eq Check | Anesthesia machine checked Equipment verified | | /1 | 6 | | | | 7/ | 4 | | | | 20 | 5 | | | | 19 | | | | +----+---+ + + | | 0 | Pt. Check | Prior to anesthesia start, pt. Identified, examined, chart | | | 7 | | reviewed, PARQ held, anesthetic plan made or approved by | | | 1 | | attending anesthesiologist. NPO status confirmed as appropriate | | | 1 | | for procedure Preoperative evaluation: unchanged | +----+---+ + + | | 0 | An Start | | | | 7 | | | | | 2 | | | | | 8 | | | +----+---+ + + | | 0 | An Start | | | | 7 | Data | | | | 3 | | | | | 3 | | | +----+---+ + + | | 0 | Vitals | Monitors applied Vital signs checked Patient ready for anesthesia | | | 7 | Checked | | | | 3 | | | | | 8 | | | +----+---+ + + | | 0 | ETT | | | | 7 | | | | | 5 | | | | | 4 | | | +----+---+ + + | | 0 | Ready | | | | 7 | | | | | 5 | | | | | 6 | | | +----+---+ + + | | 0 | Pause | | | | 7 | | | | | 5 | | | | | 6 | | | +----+---+ + + | | 0 | Abx held | Contraindicated, or not indicated for this procedure, or already | | | 7 | Medical or | receiving antibiotics | | | 5 | Surgical | | | | 6 | Reason | | +----+---+ + + | | 0 | Quick Note | Start of EBUS | | | 7 | | | | | 5 | | | | | 7 | | | +----+---+ + + | | 0 | Incision | | | | 7 | | | | | 5 | | | | | 7 | | | +----+---+ + + | | 0 | Art Line | | | | 8 | | | | | 1 | | | | | 5 | | | +----+---+ + + | | 0 | Quick Note | Converting from EBUS to Mediastinoscopy: Surgeon's repositioned | | | 8 | | with shoulder extending neck | | | 4 | | | | | 6 | | | +----+---+ + + | | 0 | Pause | | | | 8 | | | | | 5 | | | | | 3 | | | +----+---+ + + | | 0 | Local | | | | 8 | Anesthetic | | | | 5 | by Surgeon | | | | 4 | | | +----+---+ + + | | 0 | Quick Note | FIO2 set 100 %, pt suctioned and recruitment breaths given. | | | 9 | | | | | 5 | | | | | 7 | | | +----+---+ + + | | 1 | Quick Note | 8.0 ETT exchanged to MARY. Extubated after suctioning. Intubated | | | 0 | | with MARY using CMAC. Atraumatic intubation. | | | 0 | | | | | 0 | | | +----+---+ + + | | 1 | An one lung | MARY positioned with bronch after positioning. | | | 0 | vent | | | | 1 | | | | | 5 | | | +----+---+ + + | | 1 | Quick Note | Converting to LVAT | | | 0 | | | | | 1 | | | | | 8 | | | +----+---+ + + | | 1 | Quick Note | Incision for LVATS. Pt repositioned in RLD, padded prior to | | | 0 | | incision. | | | 3 | | | | | 1 | | | +----+---+ + + | | 1 | An Two-Lung | | | | 0 | Vent | | | | 5 | | | | | 0 | | | +----+---+ + + | | 1 | Quick Note | | | | 0 | | | | | 5 | | | | | 0 | | | +----+---+ + + | | 1 | An Help | Unable to ventilate, desaturation to 70's. MARY bloody and unable | | | 0 | | to get a decent view. Pulled back and able to ventilate with | | | 5 | | response in saturations and hemodynamics. Clots suctioned from | | | 7 | | tube and MARY placement confirmed with surgeon. Patient stable | | | | | and able to continue case. Staff present (Dr. Abbott/Syeda) | +----+---+ + + | | 1 | An one lung | | | | 1 | vent | | | | 0 | | | | | 8 | | | +----+---+ + + | | 1 | Quick Note | [place] of L main PA clamped | | | 2 | | | | | 5 | | | | | 8 | | | +----+---+ + + | | 1 | Quick Note | L main PA unclamped- tolerated well-hemodynamic stable | | | 2 | | | | | 5 | | | | | 9 | | | +----+---+ + + | | 1 | Quick Note | L PA clamped | | | 3 | | | | | 2 | | | | | 6 | | | +----+---+ + + | | 1 | Local | | | | 4 | Anesthetic | | | | 5 | by Surgeon | | | | 3 | | [...] commands. Adequate pulmonary mechanics. | | | 3 | | | | | 9 | | | +----+---+ + + | | 1 | an stop | | | | 5 | data | | | | 4 | | | | | 2 | | | +----+---+ + + | | 1 | PACU Rpt | | | | 5 | Given | | | | 5 | | | | | 6 | | | +----+---+ + + | | 1 | Anesthesia | | | | 5 | End | | | | 5 | | | | | 6 | | | +----+---+ + + | | 1 | ICU Handoff | Procedure Anesthetic Brief History Relevant | | | 5 | Call | Meds/Labs/Echo/Imaging Difficult airway? Intraoperative Course: | | | 5 | | Lines/drains EBL Significant Events Meds: Infusions, | | | 6 | | Antibiotics/Redosing, Paralytics (last dose and time), Analgesic | | | | | Plan Central line- will review image and place order in PACU | | | | | Surgeon concerns | +----+---+ + + | | 1 | Post-Op | | | | 7 | Page | | | | 3 | | | | | 9 | | | +----+---+ + + +------+ | Meds | +------+ + + + No medications | on file. | + + + + + | No agents on file. | + + + + | No blood administrations on file. | + + +--------+ + + + | Type | Details | Placement | Removal | +--------+ + + + | ETT | 12/04/18; 075 (created via | 12/04/18753 by | 12/04/181538 by | | | procedure documentation); 8; | Sue Duncan, | Sue Duncan, | | | Oral; Cuffed; 12/04/18; 1539 | MD | MD | +--------+ + + + | ETT | 12/04/18; 0754 (created via | 12/04/18753 by | 12/04/181538 by | | | procedure documentation); 35; | Sue Duncan, | Sue Duncan, | | | Oral; Cuffed; 12/04/18; 1539 | MD | MD | +--------+ + + + | Incisi | 12/04/18; 0859; Dr Oviedo; | 12/04/18 0859 by | 12/14/18 1242 by | | on | Midline, Upper; chest; 12/14/18; | Anjali Fuller RN | María Pierre RN | | | 1242 | | | +--------+ + + + | Urethr | 12/04/18; 0940; FARIDA Antoine; | 12/04/18 0940 by | 12/06/18 1200 by | | al | Soren; 16 Fr.; 10 mL; 12/06/18; | Anjali Fuller RN | Maggy Richey RN | | Cathet | 1200; Per order | | | | er | | | | +--------+ + + [...] | 2019 | Visit | | [address] [facility] | | | | | | [address] | | | | | | [place] | | | | | | [address] | | | | | | [phone] | | | | | | | | +--------+---------+ + + + as of this encounter Visit Diagnoses Not on filein this encounter
--- OUTSIDE RECORDS SUMMARY | ~2018-12-15 | XMS | Encounter Summary ---
Demographics + + + | Address | [address] | | | [place] [address] | + + + | Home Phone | | + + + | Preferred Language | Unknown | + + + | Marital Status | Single | + + + | Christian Affiliation | NRP | + + + | Race | White | + + + | Ethnic Group | Not or | + + + Author + + + | Author | [facility] | + + + | Organization | [facility] | + + + | Address [...] Team Providers + +------+ + | Care House Repairer Name | Role | Phone | + +------+ + | Lauryn Stuart | PCP | | + +------+ + Encounter Details +--------+ + + + + | Date | Type | Department | Care Team | Description | +--------+ + + + + | 11/22/ | Procedure | Radiology/Imaging | | | | 2019 | Pass | Lab at [facility] [address] | | | | | | [address] | | | | | | Mailcode: CH3G | | | | | | [facility] | | | | | | and Healing, 3rd | | | | | | Floor [place], [place] | | | | | | [address] | | | | | | [phone] | | | +--------+ + + + [...] [address] | | | | | | [place], [place] | | | | | | [address] | | | | | | [phone] | | | | | | | | +--------+---------+ + + + as of this encounter Visit Diagnoses Not on filein this encounter
--- OUTSIDE RECORDS SUMMARY | ~2018-12-15 | XMS | Encounter Summary ---
Demographics + + + | Address | [address] | | | [place] [address] | + + + | Home Phone [...] + + + | Author | [facility] | + + + | Organization | [facility] | + + + | [...] Team Providers + +------+ + | Care National Sales Executive Name | Role | Phone | + [...] + + + + | 12/04/ | Anesthesia | 6A Intra Op [facility] | Matias Alonso, | | | 2019 | Event | [facility] | MD [address] [facility] | | | | | Admitting Desk | [facility] | | | | | Located on the [address] | [place], [place] | | | | | [address] | [address] | | | | | [facility] | [phone] | | | | | [place], [place] | | | | | | [address] | | | +--------+ + + + + Anesthesia Record + + + + + | Procedure Name | Responsible | Anesthesia Start | Anesthesia Stop Time | | | Anesthesiologist | Time | | + + + + + | ENDOBRONCHIAL | Bouchra Abbott MD | 12/04/18 0728 | 12/04/18 [...] | | 1 | Quick Note | [place] of L main PA clamped | | [...] | Total | + + + | midazolam | 2 mg | + + + | fentaNYL | 500 mcg | + + + | lidocaine 2% | 60 mg | + + + | propofol (DIPRIVAN) 200 mg | 230 mg | + + + | propofol (DIPRIVAN) 200 mg | 461,100 mcg | + + + | rocuronium | 90 mg | + + + | PHENYLephrine | 1,550 mcg | + + + | ePHEDrine | 10 mg | + + + | glycopyrrolate | 0.2 mg | + + + | ondansetron | 4 mg | + + + | dexamethasone | 10 mg | + + + | ceFAZolin (ANCEF) injection 2 g | 4,000 mg | + + + | heparin | 3,000 Units | + + + | insulin regular INF (1unit/mL) | 4.03 Units | + + + | albuterol inhaler | 8 puff | + + + | ketamine | 25 mg | + + + | sugammadex (BRIDION) IV | 232 mg | + + + | HYDROmorphone | 1 mg | + + + | lactated ringers IV | 2,200 mL | + + + + + [...] + + | Urethr | 12/04/18; 0940; FARDIA Antoine; | 12/04/18 0940 by | 12/06/18 [...] (Comment) | | | | | (By MD) | | | +--------+ + + + [...] | Manoj Kumar MD | | | 2018 | Visit | | [address] [facility] | | | | | | [address] | | | | | | [place], [place] | | | | | | [address] | | | | | | [phone] | | | | | | | | +--------+---------+ + + + as of this encounter Results ANE ART LINE (12/06/2018 9:20 AM) + + + | Narrative | Performed At | + + + | Sue Duncan MD 12/06/2018 9:22 AM Procedure ART | | | LINE Procedure Information Inserted: After Induction 10 minutes to | | | perform. Type Catheter: Angiocath Indications: Beat to beat blood | | | pressure monitoring Location Performed: [place] Informed Consent: | | | Included in anesthesia consent Protective Barrier: Cap, Mask, Hand | | | scrub and Sterile Gloves Skin Prep: Chloraprep Draped: Partially | | | draped Anesthesia Method: General anesthesia Insertion Site: | | | Radial Access device: 20g Line secured by:Tape, Sutured and | | | Dressing Applied Assessment Number of attempts: 3rd | | | Complications: None Assessment: Catheter connected to pressure line | | | and flushed, catheter manually flushed, Tolerated procedure well and | | | Perfusion checked distal to catheter Attending physically present | | | Attending Name: BOUCHRA ABBOTT | | + + + ANE ETT (12/04/2018 1:12 PM) + + + | Narrative | Performed At | + + + | Sue Duncan MD 12/04/2018 1:18 PM AIRWAY | | | MANAGEMENT - ETT Time of Intubation: 12/04/2018 7:54 AM Intubation | | | Reason: For surgical procedure Positioning: Supine OXYGENATION | | | Patient was preoxygenated No apneic oxygenation Grade: Grade 0 - | | | Ventilation by mask not attempted Induction:Routine INTUBATION | | | ATTEMPT 1 Videolaryngoscopy: CMAC Standard geometry curved blade | | | Fiberoptics: Flexible endoscopic intubation Intubation Adjuncts: w/ | | | Stylet Laryngoscopic View: Grade I ETT DETAILS ETT | | | Type:Double-lumen Intubation Type: Oral Cuff Status: Cuffed Size: | | | 35F ETT secured with adhesive tape Depth at Lip: 27 cm | | | CONFIRMATION Number of Attempts: 1 Atraumatic Laryngoscopy Positive | | | for EtCO2:Waveform capnography Breath Sounds: Bilateral and equal | | | NARRATIVE Attending physically present Authorized by BOUCHRA ABBOTT | | | Performed by SUE DUNCAN Procedure Comments: Lubricated | | | 35F Left MARY placed under indirect visualization using CMAC in | | | exchange for 8.0 ETT. Atraumatic intubation. MARY positioned confirm | | | with bronch. | | + + + ANE ETT (12/04/2018 12:40 PM) + + + | Narrative | Performed At | + + + | Sue Duncan MD 12/04/2018 12:45 PM AIRWAY | | | MANAGEMENT - ETT Time of Intubation: 12/04/2018 7:54 AM Intubation | | | Reason: For surgical procedure Positioning: Supine OXYGENATION | | | Patient was preoxygenated No apneic oxygenation Grade: Grade 1 - | | | Ventilated by mask Manual in-Line Stabilization: No | | | Induction:Routine, without Cricoid Pressure INTUBATION ATTEMPT | | | 1 Blade Type: Alejandra Blade #: 3 Laryngoscopic View: Grade III | | | ATTEMPT 2 Blade Type: Alejandra Blade #: 3 Intubation adjuncts: | | | w/ Stylet Laryngoscopic View: Grade II ETT DETAILS ETT | | | Type:Standard, Hi-Lo Cuffed Intubation Type: Oral Cuff Status: | | | Cuffed Size: 8 ETT secured with adhesive tape Depth at Lip: 22 | | | cm CONFIRMATION Number of Attempts: 2 Atraumatic Laryngoscopy | | | Positive for EtCO2:Waveform capnography Breath Sounds: Bilateral and | | | equal NARRATIVE Attending physically present Authorized by | | | BOUCHRA ABBOTT Performed by SUE DUNCAN Procedure | | | Comments: Easy BMV. First attempt my medical student- grade III v | | | with MAC 3 blade. Repositioned & Intubated on 2nd attempt. Atraumatic | | | intubation. | | + + + in this encounter Visit Diagnoses Not on filein this encounter Administered Medications + +--------+ +---------+------+------+ | Medication Order | MAR | Action | Dose | Rate | Site | | | Action | Date | | | | + +--------+ +---------+------+------+ | albuterol (PROVENTIL, VENTOLIN) | Given | | 8 puffs | | | | 90 mcg/actuation inhaler | | 9 09:57 | | | | | INTRAPROCEDURE PRN, Starting Wed | | PDT | | | | | 12/04/18 at 0957, Until Wed | | | | | | | 12/04/18 at 1551 | | | | | | + +--------+ +---------+------+------+ +---+---+ | | | +---+---+ + +-------+ + +---+---+ | ceFAZolin (ANCEF) injection 2 g | Given | | 2,000 mg | | | | 2 g, intravenous, PREPROCEDURE | | 9 08:46 | | | | | ONCE, 1 dose, Starting Wed | | PDT | | | | | 12/04/18 at 0613, Until Wed | | | | | | | 12/04/18 at 1246 | | | | | | + +-------+ + +---+---+ +-------+ + +---+---+ | Given | | 2,000 mg | | | | | 9 12:46 | | | | | | PDT | | | | +-------+ + +---+---+ +---+---+ | | | +---+---+ + +-------+ +-------+---+---+ | dexamethasone (DECADRON) | Given | | 10 mg | | | | injection INTRAPROCEDURE PRN, | | 9 08:24 | | | | | Starting Sun12/04/18 at 0824, | | PDT | | | | | Until Sun12/04/18 at 1551 | | | | | | + +-------+ +-------+---+---+ +---+---+ | | | +---+---+ + +-------+ +-------+---+---+ | ePHEDrine injection | Given | | 10 mg | | | | intravenous, INTRAPROCEDURE PRN, | | 9 08:00 | | | | | Starting Sun12/04/18 at 0800, | | PDT | | | | | Until 12/04/18 at 1551 | | | | | | + +-------+ +-------+---+---+ +---+---+ | | | +---+---+ + +-------+ +--------+---+---+ | fentaNYL (SUBLIMAZE) injection | Given | | 25 mcg | | | | INTRAPROCEDURE PRN, Starting Wed | | 9 15:24 | | | | | 12/04/18 at 0748, Until Wed | | PDT | | | | | 12/04/18 at 1551 | | | | | | + +-------+ +--------+---+---+ +-------+ +--------+---+---+ | Given | | 25 mcg | | | | | 9 15:40 | | | | | | PDT | | | | +-------+ +--------+---+---+ | Given | | 50 mcg | | | | | 9 15:48 | | | | | | PDT | | | | +-------+ +--------+---+---+ +---+---+ | | | +---+---+ + +-------+ +--------+---+---+ | glycopyrrolate (MONTSERRAT) | Given | | 0.2 mg | | | | injection INTRAPROCEDURE PRN, | | 9 09:30 | | | | | Starting 12/04/18 at 0930, | | PDT | | | | | Until 12/04/18 at 1551 | | | | | | + +-------+ +--------+---+---+ +---+---+ | | | +---+---+ + +-------+ +--------+---+---+ | heparin bolus from continuous | Given | | 2,000 | | | | infusion intravenous, | | 9 13:25 | Units | | | | INTRAPROCEDURE PRN, Starting Wed | | PDT | | | | | 12/04/18 at 1325, Until Wed | | | | | | | 12/04/18 at 1551 | | | | | | + +-------+ +--------+---+---+ +-------+ +--------+---+---+ | Given | | 1,000 | | | | | 9 14:13 | Units | | | | | PDT | | | | +-------+ +--------+---+---+ +---+---+ | | | +---+---+ + +-------+ +--------+---+---+ | HYDROmorphone (DILAUDID) | Given | | 0.5 mg | | | | injection INTRAPROCEDURE PRN, | | 9 14:50 | | | | | Starting Sun12/04/18 at 1552, | | PDT | | | | | Until Sun12/04/18 at 1553 | | | | | | + +-------+ +--------+---+---+ +-------+ +--------+---+---+ | Given | | 0.5 mg | | | | | 9 15:52 | | | | | | PDT | | | | +-------+ +--------+---+---+ +---+---+ | | | +---+---+ + +---------+ + +---------+---+ | insulin regular in NaCl 0.9% IV | New Bag | | 2 | 2 mL/hr | | | infusion (1 unit/mL) | | 9 13:36 | Units/hr | | | | INTRAPROCEDURE CONTINUOUS PRN, | | PDT | | | | | Starting 12/04/18 at 1336, | | | | | | | Until Sun12/04/18 at 1551 | | | | | | + +---------+ + +---------+---+ +---+---+ | | | +---+---+ + +-------+ +-------+---+---+ | ketamine (KETALAR) injection | Given | | 25 mg | | | | INTRAPROCEDURE PRN, Starting Wed | | 9 14:45 | | | | | 12/04/18 at 1445, Until Wed | | PDT | | | | | 12/04/18 at 1551 | | | | | | + +-------+ +-------+---+---+ +---+---+ | | | +---+---+ + +---------+ +---+---+---+ | lactated ringers IV 10 mL/hr, | New Bag | | | | | | intravenous, PROCEDURE | | 9 11:32 | | | | | CONTINUOUS, Starting 12/04/18 | | PDT | | | | | at 0615, Until Sun12/04/18 at | | | | | | | 1734 | | | | | | + +---------+ +---+---+---+ + + +---+---+---+ | given by anesthesiology | | | | | | | 9 13:45 | | | | | | PDT | | | | + + +---+---+---+ | given by anesthesiology | | | | | | | 9 15:29 | | | | | | PDT | | | | + + +---+---+---+ +---+---+ | | | +---+---+ + +-------+ +-------+---+---+ | lidocaine PF (XYLOCAINE MPF) 20 | Given | | 60 mg | | | | mg/mL (2 %) injection | | 9 07:52 | | | | | INTRAPROCEDURE PRN, Starting Wed | | PDT | | | | | 12/04/18 at 0752, Until Wed | | | | | | | 12/04/18 at 1551 | | | | | | + +-------+ +-------+---+---+ +---+---+ | | | +---+---+ + +-------+ +------+---+---+ | midazolam (PF) (VERSED) | Given | | 1 mg | | | | injection INTRAPROCEDURE PRN, | | 9 07:28 | | | | | Starting 12/04/18 at 0728, | | PDT | | | | | Until 12/04/18 at 1551 | | | | | | + +-------+ +------+---+---+ +-------+ +------+---+---+ | Given | | 1 mg | | | | | 9 07:39 | | | | | | PDT | | | | +-------+ +------+---+---+ +---+---+ | | | +---+---+ + +-------+ +------+---+---+ | ondansetron (ZOFRAN) injection | Given | | 4 mg | | | | INTRAPROCEDURE PRN, Starting Wed | | 9 15:16 | | | | | 12/04/18 at 1516, Until Wed | | PDT | | | | | 12/04/18 at 1551 | | | | | | + +-------+ +------+---+---+ +---+---+ | | | +---+---+ + +-------+ +---------+---+---+ | PHENYLEPHrine 100 mcg/mL | Given | | 100 mcg | | | | injection (OR syringe) | | 9 14:16 | | | | | intravenous, INTRAPROCEDURE PRN, | | PDT | | | | | Starting 12/04/18 at 0800, | | | | | | | Until Sun12/04/18 at 1551 | | | | | | + +-------+ +---------+---+---+ +-------+ +---------+---+---+ | Given | | 100 mcg | | | | | 9 14:53 | | | | | | PDT | | | | +-------+ +---------+---+---+ | Given | | 100 mcg | | | | | 9 15:06 | | | | | | PDT | | | | +-------+ +---------+---+---+ +---+---+ | | | +---+---+ + +---------+ + +---+---+ | propofol (DIPRIVAN) 200 mg | New Bag | | 150 | | | | INTRAPROCEDURE CONTINUOUS PRN, | | 9 07:57 | mcg/kg/m | | | | Starting Sun12/04/18 at 0757, | | PDT | in | | | | Until Sun12/04/18 at 1551 | | | | | | + +---------+ + +---+---+ +---+---+ | | | +---+---+ + +-------+ +-------+---+---+ | propofol (DIPRIVAN) 200 mg | Bolus | | 40 mg | | | | INTRAPROCEDURE CONTINUOUS PRN, | | 9 07:53 | | | | | Starting Sun12/04/18 at 0752, | | PDT | | | | | Until Sun12/04/18 at 1551 | | | | | | + +-------+ +-------+---+---+ +-------+ +-------+---+---+ | Bolus | | 40 mg | | | | | 9 07:55 | | | | | | PDT | | | | +-------+ +-------+---+---+ | Bolus | | 30 mg | | | | | 9 09:58 | | | | | | PDT | | | | +-------+ +-------+---+---+ +---+---+ | | | +---+---+ + +-------+ +-------+---+---+ | rocuronium (ZEMURON) injection | Given | | 20 mg | | | | INTRAPROCEDURE PRN, Starting Wed | | 9 08:54 | | | | | 12/04/18 at 0752, Until Wed | | PDT | | | | | 12/04/18 at 1551 | | | | | | + +-------+ +-------+---+---+ +-------+ +-------+---+---+ | Given | | 20 mg | | | | | 9 09:45 | | | | | | PDT | | | | +-------+ +-------+---+---+ | Given | | 15 mg | | | | | 9 11:25 | | | | | | PDT | | | | +-------+ +-------+---+---+ +---+---+ | | | +---+---+ + +-------+ +--------+---+---+ | sugammadex (BRIDION) IV | Given | | 232 mg | | | | INTRAPROCEDURE PRN, Starting Wed | | 9 15:14 | | | | | 12/04/18 at 1514, Until Wed | | PDT | | | | | 12/04/18 at 1551 | | | | | | + +-------+ +--------+---+---+ +---+---+ | | | +---+---+ in this encounter
--- OUTSIDE RECORDS SUMMARY | ~2018-12-15 | XMS | Encounter Summary ---
Demographics + + + | Address | [address] | | | [place] [address] | + + + | Home Phone [...] Author + + + | Author | [facility] | + + + | Organization | [facility] | + + + | Address [...] Team Providers + +------+ + | Care Transition Of Care Specialist Name | Role | Phone | [...] | | | | | floor [address] | | | | | | [facility] | | | | | | [place], [place] | | | | | | [address] | | | +--------+ + + + [...] [address] | | | | | | [place], [place] | | | | | | [address] | | | | | | [phone] | | | | | | | | +--------+---------+ + + + as of this encounter Visit Diagnoses Not on filein this encounter
--- OUTSIDE RECORDS SUMMARY | ~2018-12-15 | XMS | Encounter Summary ---
Demographics + + + | Address | [address] | | | [place] [address] | + + + | Home Phone [...] Author + + + | Author | [facility] | + + + | Organization | [facility] | + + + | Address [...] Team Providers + +------+ + | Care Allergist/Pediatric Pulmonologist Name | Role | Phone | + [...] | | Neoplasm | CARLO Allen | [facility] [address] | | | | | Procedures | [address] | [address] | | | | | [address] | [address] | | | | | DOBUTAMINE | [place], [place] | Mailcode: | | | | | ECHOCARDIOGR | [address] | [address] | | | | | AM, ADULT | Phone: | Zoltan Calderón | | | | | | [phone] | Building | | | | | | Fax: | [facility] [place] | | | | | | [phone] | [address] | | | | | | | Phone: | | | | | | | [phone] | +--------+--------+ + + + + Encounter Details +--------+ + + + + | Date | Type | Department | Care Team | Description | +--------+ + + + + | 11/26/ | Hospital | Cardiac | | | | 2019 | Encounter | Non-Invasive Testing | | | | | | at [facility] [address] | | | | | | [place] Mailcode: | | | | | | [facility] | | | | | | [facility] | | | | | | [place], [place] | | | | | | [address] | | | | | | [phone] | | | +--------+ + + + [...] [address] | | | | | | [place], [place] | | | | | | [address] | | | | | | [phone] | | | | | | | [...] | + + + + + | [facility] | [address] | [place], [place] | | | CARDIOLOGY | [address] | [address] | | + + + + + [...]
--- OUTSIDE RECORDS SUMMARY | ~2018-12-15 | XMS | Encounter Summary ---
Demographics + + + | Address | [address] | | | [place] [address] | + + + | Home Phone | | + + + | Preferred Language | Unknown | + + + | Marital Status | Single | + + + | Yarsanism Affiliation | NRP | + + + | Race | White | + + + | Ethnic Group | Not or | + + + Author + + + | Author | [facility] | + + + | Organization | [facility] | + + + | [...] Team Providers + +------+ + | Care Wearing Apparel Presser Name | Role | Phone | + +------+ + | Lauryn Stuart | PCP | | + +------+ + Encounter Details +--------+ + + + + | Date | Type | Department | Care Team | Description | +--------+ + + + + | 11/26/ | Hospital | Diagnostics at [facility] | [facility] | | | 2019 | Encounter | [address] | [address] | | | | | [address] | [facility], | | | | | Mailcode: [id number] | [place] [address] | | | | | [address] | | | | | | [place], [place] | | | | | | [address] | | | | | | [phone] | | | +--------+ + + + [...] [address] | | | | | | [place], [place] | | | | | | [address] | | | | | | [phone] | | | | | | | [...] encounter Results SPIROMETRY BEFORE / AFTER [facility], [facility] (11/26/2018 1:31 PM) + + + + + | Component | Value | Ref Range | Performed At | + + + + + | PULMONARY | Site: [facility] and | | [facility] | | INTERPRETATION | [facility] | | DIAGNOSTICS - | | | [facility], | | PULMONARY | | | [place], [place], | | FUNCTION | | | [id number]: | | | | | [id number] Name: WINNIE | | | | | SUSSY Lopez Date: | | | | | 11/26/2018 Second ID: | | | | | [id number]: | | | | | Sara HurstAge: | | | | | 68 : | | | | | 1950 Sex: | | | | | Female Race: | | | | | CaucasianHeight: | | | | | 162.50 Cms Weight: | | | | | 59.00 Kgs BSA: | | | | | 1.63Order IDs: | | | | | [id number] | | | | | Test(s): <SPIROMETRY [...] | + + + + + | GSA25-05% PRE | 1.79 | 2.00 L/sec | [facility] | | | | | DIAGNOSTICS - | | | | | PULMONARY | | | | | FUNCTION | + + + + + | GAM04-04% PRE (%REF) | 89 | % | [...] [facility] | [address] | [place], [place] | | | DIAGNOSTICS - | [address] | [address] | | | PULMONARY FUNCTION | | | | + + + + + in this encounter Visit Diagnoses + + | Diagnosis | + + | Neoplasm | + + | Neoplasm of unspecified nature, site unspecified | + +
--- OUTSIDE RECORDS SUMMARY | ~2018-12-15 | XMS | Encounter Summary ---
Demographics + + + | Address | [address] | | | [place] [address] | + + + | Home Phone | | + + + | Preferred Language | Unknown | + + + | Marital Status | Single | + + + | Gnosticist Affiliation | NRP | + + + | Race | White | + + + | Ethnic Group | Not or | + + + Author + + + | Author | [facility] | + + + | Organization | [facility] | + + + | Address [...] Team Providers + +------+ + | Care Scheduling Analyst Name | Role | Phone | [...] | PERCUTANEOUS | | 2019 | | [facility] | MD [address] [facility] | ENDOSCOPIC | | | | Admitting Desk | [facility] | GASTROSTOMY | | | | Located on the | [place], [place] | | | | | floor [address] [facility] | [address] | | | | | [facility] | [phone] | | | | | [place], [place] | | | | | | [address] | | | +--------+---------+ + + + [...] Discharge Medications: Sussy Allred Home Medication Instructions ABRAHAN:[id number] Printed on:12/13/18 4111 Medication Information acetaminophen 325 mg oral tablet [...] at 12/14/18926 Last data filed at 12/14/18 0734 Gross per 24 hour Intake 885 ml [...] Care Everywhere.Lung Resection: Post-op (Christiano rubio)Mediastinoscopy: Pre-op ([facility])in this encounter Medications at Time of Discharge [...] PDTLeft chest tube removed. Keena Myles CCC -CEMENTER MACHINE APPLICATOR - 12/13/2018 8:11 AM PDT ENT SPEECH [...] or concerns about eating, drinking. DIETARY STATUS: [facility] soft. Ate steelhead, veggies, rice and mandarin [...] Voice clear, breathing comfortably. No further acute CEMENTER MACHINE APPLICATOR needs. PLAN: 1. ADAT back to regular diet. Pills by mouth okay - in liquids or purees as she wishes. -Aspiration precautions - upright with all PO, single small bites/sips, one bite/sip at a time -L head-turn + chin-tuck is fine if patient finds it helpful with liquids 2. TFs have been discontinued 3. ENT CEMENTER MACHINE APPLICATOR will sign-off. Patient can follow-up with us as outpatient in clinic with Dr. Jose arce as needed. Keena Myles MS, [facility]-CEMENTER MACHINE APPLICATOR Speech-Language Pathologist [facility] Dept. of Otolaryngology, PV-[address] [facility] [place] [address] Pager: [phone] Silvana Quevedo MD - 12/13/2018 7:11 AM PDTFormatting of this note may be different from the original. Thoracic Surgery Brief Inpatient Progress Note Patient name: SUSSY ALLRED Attending: Manoj Kumar MD Procedure day: 9 Procedure: Left thoracotomy, CODY lobectomy with bronchial and PA reconstruction 24 hour events: - Remains on NC, doing well, tolerating [facility] soft diet and diet, no complaints. 24 [...] mechanical soft diet. Tube feeds off. Plan (fgwj-lc-wblqwouz issues): - Aspiration pneumonitis: Resolved - Hypophosphatemia: [...] Stacy Quevedo MD Cardiothoracic Surgery Fellow Pager: [phone] Jamelrio Keena Jessie, CCC-CEMENTER MACHINE APPLICATOR - 12/12/2018 12:22 PM PDT ENT SPEECH [...] may not be indicated until 6 weeks post-[facility] ent. DIETARY STATUS: Purees and any [...] resident on- call. Recommend diet upgrade to [facility] soft and any liquids for more palatable [...] of TFs to promote appetite 3. ENT CEMENTER MACHINE APPLICATOR will continue to follow. Please page [phone] as needed. Keena Myles MS, [facility]-CEMENTER MACHINE APPLICATOR Speech-Language Pathologist [facility] Dept. of Otolaryngology, PV- [address] [facility] [place] [address] Pager: [phone] Silvana Quevedo MD - 12/12/2018 7:53 AM [...] a PEG tube for nutri tion. Plan (yokh-hv-hbncgkat issues): - Aspiration pneumonitis: Productive sputum, augmentin [...] Stacy Quevedo MD Cardiothoracic Surgery Fellow Pager: [phone] Keena Myles, [facility]-CEMENTER MACHINE APPLICATOR - 12/11/2018 2:44 PM PDT ENT SPEECH [...] verified. The patient was evaluated in the [facility] 10th floor Radiology suite & was observed [...] re: decrease or discontinue TFs 3. ENT CEMENTER MACHINE APPLICATOR will follow-up on morning. Please page [phone] as needed. Keena Myles MS, CCC-CEMENTER MACHINE APPLICATOR Speech-Language Pathologist [facility] Dept. of Otolaryngology, [address] [facility] [place] [address] Pager: [phone] Keena Myles, CCC-CEMENTER MACHINE APPLICATOR - 12/11/2018 10:26 AM PDT ENT SPEECH [...] to improve and tolerate PO. 4. ENT CEMENTER MACHINE APPLICATOR [place] [phone] or [phone] any time with questions or concer ns. Keena Myles MS, CCC-CEMENTER MACHINE APPLICATOR Speech-Language Pathologist [facility] Dept. of Otolaryngology, [address]- [address] [facility] [place] [address] Pager: [phone] Silvana Quevedo MD - 12/11/2018 8:24 AM [...] PEG tube and stric t NPO. Plan (aykw-pl-lrludpsm issues): - Aspiration pneumonitis: Productive sputum, augmentin [...] Stacy Quevedo MD Cardiothoracic Surgery Fellow Pager: [phone] Meggan Downs, CEMENTER MACHINE APPLICATOR - 12/10/2018 4:21 PM PDTINPATIENT ENT SPEECH PROGRESS NOTE: Order received, chart reviewed. Patient with history of "large volume aspiration", even un clear. Recommend objective swallow evaluation in Radiology Sunday, 12/11 prior to initiat ion of p.o. Intake. Recommend: NPO, all nutrition/hydration/medication via PEG Plan: [facility] Sunday. Meggan Downs, Ph.D., CCC-CEMENTER MACHINE APPLICATOR Diecast Machine Operator Director, [facility] Otolaryngology, Head and Neck Surgery [facility] [phone] Augustine Nolan MD - 12/10/2018 9:51 AM PDTFormatting of this note may be different f rom the original. PATIENT NAME: Sussy Allred MR#: [id number] : 1950 PRIMARY CARE PROVIDER: MALLIKA [place] [...] does require an overnight stay in the [facility], but is not particularly uncomfortable and the [...] Dr. Jose da silva. Augustine Nolan M.D. Diecast Machine Operator Laryngology and Head & Neck SurgerySilvana Quevedo [...] PEG tube and stric t NPO. Plan (kuvs-td-rmnycgyj issues): - Aspiration pneumonitis: Productive sputum, augmentin [...] Stacy Quevedo MD Cardiothoracic Surgery Fellow Pager: [phone] Kiya Cedillo MD,PhD - 12/09/2018 2:43 PM [...] removal. APS will sign off, please page [phone] if there are questions or concerns. APS happy to repla ce epidural in future if primary team and patient think it is needed. Kiya Satnos MD Pager [phone] Department of Anesthesiology and Perioperative Medicine Chronic [...] PEG tube and stric t NPO. Plan (hrhs-ia-szdscevn issues): - Aspiration pneumonitis: strict NPO, aggressive [...] Stacy Quevedo MD Cardiothoracic Surgery Fellow Pager: [phone] Vee Dickerson, [facility] - 12/09/2018 9:44 AM PDTFormatting of this note may be different from the original. 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 24 Hour events - [...] dysphagia. - Strict NPO, consider re consulting CEMENTER MACHINE APPLICATOR today pending course and ENT recs - [...] 12/07 - Strict NPO - ENT performed SHOVELER scope with evidence of left vocal cord [...] Manoj Kumar MD Admitting Provider Cardiothoracic Surgery 91541 Quality section FAST HUG Feeding: Tube Feeds [...] the recent imaging availabl e. 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 Given her likely long-term [...] 12/07 - Strict NPO - ENT performed SHOVELER scope with evidence of left vocal cord [...] Manoj Kumar MD Admitting Provider Cardiothoracic Surgery 86456 Jama Zhao MD ICU PM Attending Anesthesiology 02936 Quality section FAST HUG Feeding: Tube Feeds: [...] e. Date of Service: 12/08/2018 MALLIKA STONER [facility] DEPARTMENT: ANE ICU CARDIAC Place of Service:- Inpatient CSN: [id number] Suggested Modifier: None Suggested CPT: TO NAIL TECHNICIAN TEACHER Author:MALLIKA STONER [address] [address] [place] [address]XgfbgrpoDennis Myrick MD - 12/08/2018 10:12 AM PDTFormatting of this no te may be different from the original. 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 Given her likely long-term [...] Manoj Kumar MD Admitting Provider Cardiothoracic Surgery 28082 Jama Zhao MD ICU PM Attending Anesthesiology 27406 Code Status Code Status Full Code Quality section I have spent a total of 38 minutes in the direct care and management of this patient indepe ndent of any time spent teaching or performing any separately billable procedures. I reviewe d the documented findings, all data and the recent imaging available. Seen with PA/SHOVELER myah . Please see their note for details. I reviewed the documented findings, all data and the re cent imaging available. Dennis Myrick MD Author:Dnenis Myrick MD [address]Oziel Read MD - 12/08/2018 8:43 AM [...] Louie Moura MD Adult Acute Pain Service [facility] Pager#: [phone] Email: [email or web address] Wayne MD - 12/08/2018 8:25 AM PDTFormatting [...] post-procedure ye day, which is reassuring. Plan (ysbl-qv-liqqhiwa issues): - Aspiration pneumonitis: strict NPO, aggressive [...] - Discuss with MD Coreen Farley MD [facility] Pager #[phone] Dennis Allred PA-C - 12/08/2018 5:02 AM PDTFormatting of this note may be d ifferent from the original. 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 Given her likely long-term [...] General Surgery, PGY-3 EGS consult resident pager: [phone] Jama Zhao MD - 12/07/2018 7:30 PM PDTFormatting of this note may be different f rom the original. 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 Given her likely long-term [...] Manoj Kumar MD Admitting Provider Cardiothoracic Surgery 87478 Jama Zhao MD ICU PM Attending Anesthesiology 20840 Code Status Code Status Full Code This [...] and the recent imaging available. Seen with PA/SHOVELER Chalino. Please see their note for details. I reviewed the documented findings, all data and the rec ent imaging available. 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 Given her likely long-term need fo r tube feeding given her dysphagia, EGS consulted and plans for PEG. Patient's ICU course co mplicated by hypertension (required phenylephrine now weaned off) and high volume aspiration event with hypoxia requiring HFNC 20L. Remains hemodynamically stable. 24 Hour events - Strict NPO with concern for high volume aspiration, CEMENTER MACHINE APPLICATOR signed off for now - Overnight worsening [...] event - Strict NPO - ENT performed SHOVELER scope with evidence of left vocal cord [...] Manoj Kumar MD Admitting Provider Cardiothoracic Surgery 50513 Jama Zhao MD ICU PM Attending Anesthesiology 86358 Quality section FAST HUG Feeding: NPO Analgesia: Epidural (HM-bupiv), rectal tylenol, lido patches Sedation: None Thromboprophylaxis: Lovenox Head of Bed: Head of Bed >30 degrees Ulcer Prophylaxis: Famotidine Glycemic Control: insulin sliding Created by Sonya Barron MD Author:Sonya Barron MD [address] [address] [place] [address]AzmloqfkDennis Myrick MD - 12/07/2018 10:19 AM PDTFormatting of this no te may be different from the original. Cardiovascular Intensive Care Unit Attending Progress Note CVICU D2 Assigned #[id number] ICU Admission Reason Most Recent Value ICU [...] Manoj Kumar MD Admitting Provider Cardiothoracic Surgery 68[address] Jama Zhao MD ICU PM Attending Anesthesiology 46403 Code Status Code Status Full Code I [...] ICU CARDIAC Place of Service:- Inpatient CSN: [id number] Suggested Modifier: GC - Resident Involved Suggested CPT: TO NAIL TECHNICIAN TEACHER Dennis Myrick MD Author:Dennis Myrick MD [address] [address] [place] [address]AofnghsConcha johnson MD - 12/07/2018 9:49 AM PDTFormatting of this n ote may be different from the original. Thoracic Surgery Brief Inpatient Progress Note Patient name: SUSSY ALLRED Attending: Manoj Kumar MD Procedure day: 3 Procedure: Left thoracotomy, CODY lobectomy with bronchial and PA reconstruction 24 hour events: - made strict NPO yesterday with concern for aspiration, CEMENTER MACHINE APPLICATOR signed off for now - overnight worsening [...] he risk of prolonged intubation post-anesthesia. Plan (hjmi-ko-qlzduyoh issues): - Aspiration pneumonitis: strict NPO, aggressive [...] and discussed with Dr. Chaya Wayne MD [facility] Pager #[phone] Gayle Michael - 12/07/2018 9:21 AM PDTTransthoracic echocardiogram complete d. Final report to follow.Dennis Allred PA-C - 12/07/2018 5:34 AM PDTFormatting of this note may be different from the original. Cardiovascular Intensive Care Unit Clinical Update Note Team: D2 Team Pager: [phone] Attending: Cece Pt Name: Sussy Reeves Chalino [...] General Surgery, PGY-3 EGS consult resident pager: [phone] Associated attestation - Derrick Handley MD - 12/08/2018 10:17 AM PDTATTENDING ADDENDUM I saw and examined Sussy Allred with the residents on 12/07 and agree with the assessmen t and plan as outlined in this note and participated in the planning of care. Derrick Handley MD FACS networking engineer Division of Trauma, Critical Care, and Acute Care Surgery [phone] Dennis Myrick MD - 12/06/2018 11:01 AM PDTFormatting of this note may be different fro m the original. Cardiovascular Intensive Care Unit Attending Progress Note CVICU D2 Assigned #[id number] ICU Admission Reason Most Recent Value ICU [...] is comfortable - pt will need likely halfway enteral access. Has requested surgical feeding tube [...] Manoj Kumar MD Admitting Provider Cardiothoracic Surgery [address]191 Doty necessity reviewed: Plan to DC today [...] ICU CARDIAC Place of Service:- Inpatient CSN: [id number] Suggested Modifier: GC - Resident Involved Suggested CPT: TO NAIL TECHNICIAN TEACHER Dennis Myrick MD Author:Dennis Myrick MD [address] [address]Oezclo, Nkem, MD - 12/06/2018 9:21 AM PDTThoracic [...] Stacy Quevedo MD Cardiothoracic Surgery Fellow Pager: [phone] Sonya Barron MD - 12/06/2018 7:50 AM PDTFormatting of this note may be different from t he original. Cardiovascular Intensive Care Unit Team Progress Note CVICU D2 Assigned #[id number] ICU Admission Reason Most Recent Value ICU [...] DHT vs eventual Gtube - ENT performed SHOVELER scope with evidence of left vocal cord [...] Manoj Kumar MD Admitting Provider Cardiothoracic Surgery 41887 Quality section A-Line necessity reviewed: Plan to DC today Doty necessity reviewed: Plan to DC today FAST HUG Feeding: NPO Analgesia: epidural, Tylenol, lidocaine patches Sedation: None Thromboprophylaxis: Lovenox Head of Bed: Head of Bed >30 degrees Ulcer Prophylaxis: Famotidine Glycemic Control: insulin sliding Created by Sonya Barron MD Author:Sonya Barron MD [address] [address] [place] [address]ZuslrtRobin Folres MD - 12/06/2018 7:02 AM PDTFormatting of [...] revealed minimally mobile LEFT true vocal cord. CEMENTER MACHINE APPLICATOR evaluation with concern for ri sk of [...] Flores MD Anesthesiology/CCM Fellow APS Team Pager [phone] Associated attestation - Louie Moura MD - 12/07/2018 2:59 PM PDTI saw and evaluated mallika Allred with trainee: Dr. Flores . I have reviewed the trainee's note and I agree with the plan of care as documented. Louie Moura MD Adult Acute Pain Service [facility] Pager#: [phone] Email: [email or web address] - 12/05/2018 9:06 PM PDTFormatting of this note ma y be different from the original. Cardiovascular Intensive Care Unit Clinical Update Note Team: D2 Team Pager: [phone] Attending: Layla Pt Name: Sussy Allred ID: Abbreviated HPI Update: 1. Hypotension a. Impoved 12/05/2018 after 2L crystalloid b. UO improved with IVF 2. Recurret Laryngeal nerve a. ENT Eval complete b. Pending re eval by CEMENTER MACHINE APPLICATOR for swallow this sim S: Pain, drowsy [...] Unit Team Progress Note CVICU D2 Assigned #[id number] ICU Admission Reason Most Recent Value ICU [...] levothyroxine 50mcg PO DAILY after clear by CEMENTER MACHINE APPLICATOR Cardiovascular HTN (hypertension) Unknown Current Assessment & [...] - restart PO PPI when clear by CEMENTER MACHINE APPLICATOR At risk for Dysphagia Unknown Current Assessment [...] Manoj Kumar MD Admitting Provider Cardiothoracic Surgery 79947 Quality section A-Line necessity reviewed: Kdfp-rv-dllk blood pressure monitoring Doty necessity reviewed: Hourly/Accurate measurement of urinary output for clinical manage ment of critically ill patients FAST HUG Feeding: NPO Analgesia: Tylenol, epidural (bupiv-fent) Sedation: None Thromboprophylaxis: SCDs Head of Bed: Head of Bed >30 degrees Ulcer Prophylaxis: Famotidine Glycemic Control: insulin sliding Created by Sonya Barron MD Author:Sonya Barron MD [address] [address]Cmenxim, Sara, CF-CEMENTER MACHINE APPLICATOR - 12/05/2018 10:00 AM PDTENT SPEECH PATHOLOGY- [...] HISTORY: she is single and lives in [place], [place] DIETARY STATUS: Current diet: The patient [...] afternoon when less lethargic/sedate. Ava Allred M.S., CF-CEMENTER MACHINE APPLICATOR Speech-Language Pathology Fellow [facility] [phone] Pager: [phone] Dennis Myrick MD - 12/05/2018 8:57 AM PDTFormatting of this note may be different fro m the original. Cardiovascular Intensive Care Unit Attending Progress Note CVICU D2 Assigned #[id number] ICU Admission Reason Most Recent Value ICU [...] Manoj Kumar MD Admitting Provider Cardiothoracic Surgery 13437 Code Status Code Status Full Code Quality section A-Line necessity reviewed: Yitx-qr-hugj blood pressure monitoring Doty necessity reviewed: Acute [...] ICU CARDIAC Place of Service:- Inpatient CSN: [id number] Suggested Modifier: GC - Resident Involved Suggested CPT: TO NAIL TECHNICIAN TEACHER Dennis Myrick MD Author:Dennis Myrick MD [address] [address]Robin Flores MD - 12/05/2018 8:08 AM PDTFormatting [...] Flores MD Anesthesiology/CCM Fellow APS Team Pager [phone] Associated attestation - Kiya Cedillo MD,PhD - [...] Stacy Quevedo MD Cardiothoracic Surgery Fellow Pager: [phone] Dennis Allred PA-C - 12/05/2018 3:00 AM PDTFormatting of this note may be different from the original. Cardiovascular Intensive Care Unit Clinical Update Note Team: D2 Team Pager: [phone] Attending: Layla Pt Name: Sussy Allred ID: [...] - restart PO PPI when clear by CEMENTER MACHINE APPLICATOR Hypothyroidism 12/04/2018 Assessment & Plan Note: - restart home levothyroxine 50mcg PO DAILY after clear by CEMENTER MACHINE APPLICATOR Acute post-operative pain 12/04/2018 Assessment & Plan [...] LEVEL/LATERALITY: bilateral ATTENDING PHYSICIAN: Hellen Herman MD SUSTAINABILITY DIRECTOR: Jamey Flores MD, Manda Hamm MD [...] procedure. MD Jamey Boss M.D. Assisted our international recruiter. I saw and evaluated patient Ms. Sussy [...] | | 2019 | Visit | | [address] [facility] | | | | | | [address] | | | | | | [place], [place] | | | | | | [address] | | | | | | [phone] | | | | | | | [...] + +--------+ + + + | TO NAIL TECHNICIAN TEACHER | Routin | 12/05/2018 | | Results [...] + + + | [facility] | [address] | [place], [place] | | | MARISSA JAIMES OF [facility] | [facility] | [address] | | | TESTS | | | [...] Jadyn Mcadams MD Dictation initiated: | | | Jadyn [...] - LEIGHANN | [address] | [place], [place] | | | MARISSA JAIMES OF [facility] | [address] | [address] | | | TESTS | | | | + + + + + X-RAY PORTABLE CHEST 1 VIEW (12/13/2018 8:24 AM) + + + | Narrative | Performed At | + + + | EXAM: MI CHEST 1 VIEW HISTORY: eval interval change. [...] Interface - 12/13/2018 9:47 AM PDT EXAM: MI CHEST 1 | | VIEW HISTORY: eval [...] MAR[facility] | [address] | [place], [place] | | | [facility] | [address] | [address] | | | TESTS | | | [...] [facility] | [address] | [place], [place] | | | [facility] | [address] | [address] | | | TESTS | | | [...] | MD Sae Cardiothoracic Surgery Fellow Pager: [phone] | | + + + CAPILLARY BLOOD [...] [facility] | [address] | [place], [place] | | | [facility] | [address] | [address] | | | TESTS | | | | + + + + + CAPILLARY BLOOD GLUCOSE (NO CHG), POC (12/12/2018 8:09 AM) + +-------+ + + | Component | Value | Ref Range | Performed At | + +-------+ + + | BLOOD GLUCOSE, POC | 98 | 60 - 99 mg/dL | [facility] | | | | | MARISSA [facility]ES OF | | | | | CARE TESTS | + +-------+ + + + + + + + | Performing | Address | City/State/Zipcode | Phone Number | | Organization | | | | + + + + + | [facility] | [address] | [place], [place] | | | [facility] | [address] | [address] | | | TESTS | | | [...] [facility]QU[facility] | [address] | [place], [place] | | | [facility] | [address] | [address] | | | TESTS | | | [...] [facility] | [address] | [place], [place] | | | [facility] | [address] | [address] | | | TESTS | | | [...] [facility] | [address] | [place], [place] | | | MARISSA JAIMES OF CARE | [address] | [address] | | | TESTS | | | [...] [facility] | [address] | [place], [place] | | | MARISSA JAIMES OF [facility] | [address] | [address] | | | TESTS | | | [...] | 3.50 - 10.80 K/cu mm | [facility] | | | | | SERVICES, [...] | 0.00 - 0.02 K/cu mm | [facility] | | | | | SERVICES, [place] | + + + + + + + | Specimen | + + | Blood - Blood | + + + + + + + | Performing | Address | City/State/Zipcode | Phone Number | | Organization | | | | + + + + + | [facility] | [address] | [place] [address] | | | SERVICES, [place] | [address] | | | + + + + + MAGNESIUM, PLASMA (12/11/2018 5:01 AM) + +-------+ + + | Component | Value | Ref Range | Performed At | + +-------+ + + | MAGNESIUM,PLASMA | 2.3 | 1.6 - 2.6 mg/dL | [facility] | | | | | SERVICES, [place] | + +-------+ + + + + | Specimen | + + | Blood - Blood | + + + + + + + | Performing | Address | City/State/Zipcode | Phone Number | | Organization | | | | + + + + + | [facility] | [address] | [place] [address] | | | SERVICES, CORE | [address] | | | + + + + + RENAL FUNCTION SET (NA,K,CL,CO2,BUN,CREAT,GLUC,CA,PHOS,ALB ) (12/11/2018 5:01 AM) + + + + + | Component | Value | Ref Range | Performed At | + + + + + | GLUCOSE, PLASMA | 105 (H) | 70 - 99 mg/dL | [facility] | | (LAB) | | | SERVICES, CORE | + + + + + | BUN, PLASMA (LAB) | 20 | 6 - 20 mg/dL | [facility] | | | | | SERVICES, CORE | + + + + + | CREATININE PLASMA | 0.59 (L) | 0.60 - 1.10 mg/dL | [facility] | | (LAB) | | | SERVICES, CORE | + + + + + | EGFR - | >60 | >60 mL/min | [facility] | | [facility] | | | SERVICES, CORE | + + + + + | EGFR NON | >60 | >60 mL/min | [facility] | | -[facility] | | | SERVICES, CORE | + [...] | + + + + + | [facility] | [address] | [place] [address] | | | SERVICES, KOKI | EULALIO [...] [facility] | [address] | [place], [place] | | | IESHA POINT OF CARE | [address] | [address] | | | TESTS | | | [...] + + + | [facility] | [address] | [place], [place] | | | MARISSA JAIMES OF CARE | [address] | [address] | | | TESTS | | | [...] [facility] | [address] | [place], [place] | | | IESHA POINT OF CARE | [address] | [address] | | | TESTS | | | | + + + + + CBC (HEMOGRAM) ONLY (12/10/2018 6:13 AM) + + + + + | Component | Value | Ref Range | Performed At | + + + + + | WHITE CELL COUNT | 9.93 | 3.50 - 10.80 K/cu mm | [facility] | | | | | SERVICES, [...] (L) | 36.0 - 46.0 % | [facility] | | | | | SERVICES, CORE | + + + + + | MCV | 102.2 (H) | 80.0 - 100.0 fL | [facility] | | | | | SERVICES, CORE | + + + + + | MCHC | 31.8 (L) | 32.0 - 36.0 g/dL | [facility] | | | | | SERVICES, CORE | + + + + + | RDW SD | 47.3 (H) | 35.1 - 46.3 fL | [facility] | | | | | SERVICES, CORE | + + + + + | PLATELET COUNT | 341 | 150 - 400 K/cu mm | [facility] | | | | | SERVICES, CORE | + + + + + | MPV | 8.9 (L) | 9.7 - 12.3 fL | [facility] | | | | | SERVICES, CORE | + + + + + | NRBC% | 0.0 | 0.0 - 0.3 % | [facility] | | | | | SERVICES, CORE | + + + + + | NRBC# | 0.00 | 0.00 - 0.02 K/cu mm | [facility] | | | | | SERVICES, CORE | + + + + + + + | Specimen | + + | Blood - Blood | + + + + + + + | Performing | Address | City/State/Zipcode | Phone Number | | Organization | | | | + + + + + | [facility] | [address] | [place] [address] | | | SERVICES, CORE | [address] | | | + + + + + MAGNESIUM, PLASMA (12/10/2018 6:13 AM) + +-------+ + + | Component | Value | Ref Range | Performed At | + +-------+ + + | MAGNESIUM,PLASMA | 2.4 | 1.6 - 2.6 mg/dL | [facility] | | | | | KOKI STUART | + +-------+ + + + + | Specimen | + + | Blood - Blood | + + + + + + + | Performing | Address | City/State/Zipcode | Phone Number | | Organization | | | | + + + + + | [facility] | [address] | [place] [address] | | | SERVICES, CORE | [address] [...] >60 mL/min | [facility] | | [place] | | | SADE, CORE | + + + + + | EGFR NON | >60 | >60 mL/min | [facility] | | -[place] | | | SADE, CORE | + + + + + | SODIUM, PLASMA (LAB) | 139 | 136 - 145 mmol/L | [facility] | | | | | SERVICES, [...] LABORATORY | | (LAB) | | | [facility] | + + + + + | PHOSPHORUS, PLASMA | 2.8 | 2.4 - 4.7 mg/dL | [facility] | | (LAB) | | | [facility], CORE | + + + + + | POTASSIUM CMNT | No Hemo | | [facility] | | | | | SERVICES, CORE | + + + + + | ANION GAP | 5 | 4 - 11 mmol/L | [facility] | | | | | [facility] | + + + + + | ANION GAP(ALB | 10 | 4 - 11 mmol/L | [facility] | | CORRECTED) | | | [...] | + + + + + | [facility] | [address] | [place] [address] | | | SADE, KOKI | EULALIO [...] 2.1 | 1.6 - 2.6 mg/dL | [facility] | | | | | SERVICES, CORE | + +-------+ + + + + | Specimen | + + | Blood - Blood | + + + + + + + | Performing | Address | City/State/Zipcode | Phone Number | | Organization | | | | + + + + + | [facility] | [address] | [place] [address] | | | SERVICES, CORE | EULALIO [...] >60 mL/min | [facility] | | [place] | | | SADE, CORE | + + + + + | EGFR NON | >60 | >60 mL/min | [facility] | | -[place] | | | SADE, CORE | + [...] | | (LAB) | | | SERVICES, [facility] | + + + + + | PHOSPHORUS, PLASMA | 1.6 (L) | 2.4 - 4.7 mg/dL | [facility] | | (LAB) | | | [facility] | + + + + + | [...] (H) | 4 - 11 mmol/L | [facility] | | CORRECTED) | | | SERVICES, CORE | + + + + + + + | Specimen | + + | Blood - Blood | + + + + + | Narrative | Performed At | + + + | GFR is estimated using the MDRD equation recommended by the | [facility] | | National Kidney Disease Education Program. [...] | + + + + + | [facility] | [address] | [place] [address] | | | SERVICES, KOKI | EULALIO [...] (L) | 9.7 - 12.3 fL | [facility] | | | | | SERVICES, CORE | + + + + + | NRBC% | 0.0 | 0.0 - 0.3 % | [facility] | | | | | SERVICES, CORE | + + + + + | NRBC# | 0.00 | 0.00 - 0.02 K/cu mm | [facility] | | | | | SERVICES, CORE | + + + + + + + | Specimen | + + | Blood - Blood | + + + + + + + | Performing | Address | City/State/Zipcode | Phone Number | | Organization | | | | + + + + + | [facility] | [address] | [place] [address] | | | SERVICES, CORE | [address] | | | + + + + + MAGNESIUM, PLASMA (12/09/2018 6:35 AM) + +-------+ + + | Component | Value | Ref Range | Performed At | + +-------+ + + | MAGNESIUM,PLASMA | 2.4 | 1.6 - 2.6 mg/dL | [facility] | | | | | KOKI [...] | + + + + + | [facility] | [address] | [place] [address] | | | SERVICES, CORE | [address] [...] | + + + + + | [facility] | [address] | [place] [address] | | | SERVICES, [facility] | [address] | | | + + + + + X-RAY PORTABLE CHEST 1 VIEW (12/09/2018 5:41 AM) + + + | Narrative | Performed At | + + + | EXAM: MI CHEST 1 VIEW HISTORY: Shortness of breath. Status post | [facility] | | left upper lobectomy. COMPARISON: Yesterday [...] Interface - 12/09/2018 7:45 AM PDT EXAM: MI CHEST 1 | | VIEW HISTORY: Shortness [...] 1.8 | 1.6 - 2.6 mg/dL | [facility] | | | | | SERVICES, CORE | + +-------+ + + + + | Specimen | + + | Blood - Blood | + + + + + + + | Performing | Address | City/State/Zipcode | Phone Number | | Organization | | | | + + + + + | [facility] | [address] | [place] [address] | | | KOKI STUART | E[address]ALIO [...] >60 mL/min | [facility] | | [place] | | | SERVICES, CORE | + + + + + | EGFR NON | >60 | >60 mL/min | [facility] | | -[place] | | | SERVICES, CORE | + [...] | | (LAB) | | | SADE, [facility] | + + + + + | CALCIUM, PLASMA | 8.2 (L) | 8.6 - 10.2 mg/dL | [facility] | | (LAB) | | | SADE, [facility] | + + + + + | CALCIUM(ALB | 9.7 | 8.6 - 10.2 mg/dL | [facility] | | CORRECTED) | | | SADE, [facility] | + + + + + | ALBUMIN, PLASMA | 2.1 (L) | 3.5 - 4.7 g/dL | [facility] | | (LAB) | | | SERVICES, [facility] | + + + + + | PHOSPHORUS, PLASMA | 2.4 | 2.4 - 4.7 mg/dL | [facility] | | (LAB) | | | [facility] | + + + + + | [...] | + + + + + | [facility] | [address] | [place] [address] | | | KOKI STUART | EULALIO [...] [facility] | [address] | [place], [place] | | | IESHA POINT OF CARE | [address] | [address] | | | TESTS | | | | + + + + + MAGNESIUM, PLASMA (12/08/2018 12:56 PM) + +-------+ + + | Component | Value | Ref Range | Performed At | + +-------+ + + | MAGNESIUM,PLASMA | 2.2 | 1.6 - 2.6 mg/dL | [facility] | | | | | SERVICES, CORE | + +-------+ + + + + | Specimen | + + | Blood - Blood | + + + + + + + | Performing | Address | City/State/Zipcode | Phone Number | | Organization | | | | + + + + + | [facility] | [address] | [place] [address] | | | SERVICES, CORE | [address] [...] >60 mL/min | [facility] | | [place] | | | SERVICES, CORE | + + + + + | EGFR NON | >60 | >60 mL/min | [facility] | | -[place] | | | SERVICES, CORE | + [...] 4 | 4 - 11 mmol/L | [facility] | | | | | SERVICES, CORE | + + + + + | ANION GAP(ALB | 7 | 4 - 11 mmol/L | [facility] | | CORRECTED) | | | SERVICES, CORE | + + + + + + + | Specimen | + + | Blood - Blood | + + + + + | Narrative | Performed At | + + + | GFR is estimated using the MDRD equation recommended by the | [facility] | | National Kidney Disease Education Program. [...] | + + + + + | [facility] | [address] | [place] [address] | | | KOKI STUART | E[address]ALIO [...] >60 mL/min | [facility] | | [place] | | | SERVICES, CORE | + + + + + | EGFR NON | >60 | >60 mL/min | [facility] | | -[place] | | | SERVICES, CORE | + [...] the MDRD equation recommended by the | [facility] | | National Kidney Disease Education Program. [...] | + + + + + | [facility] | [address] | [place] [address] | | | [facility] | [address] | | | + + + + + X-RAY PORTABLE CHEST 1 VIEW (12/08/2018 4:58 AM) + + + | Narrative | Performed At | + + + | EXAM: MI CHEST 1 VIEW HISTORY: SoB COMPARISON: Chest | [facility] | | radiograph from 12/07/2018. FINDINGS: Stable [...] Interface - 12/08/2018 10:59 AM PDT EXAM: MI CHEST 1 | | VIEW HISTORY: SoB [...] | + + + + + | [facility] | [address] | [place] [address] | | | SERVICES, KOKI | EULALIO [...] >60 mL/min | [facility] | | [place] | | | SERVICES, CORE | + + + + + | EGFR NON | >60 | >60 mL/min | [facility] | | -[place] [facility] | | | SERVICES, CORE | + + + + + | SODIUM, PLASMA (LAB) | 143 | 136 - 145 mmol/L | [facility] | | | | | SERVICES, CORE | + + + + + | POTASSIUM, PLASMA | 3.9 | 3.4 - 5.0 mmol/L | [facility] | | (LAB) | | | SERVICES, CORE | + + + + + | CHLORIDE, PLASMA | 111 (H) | 97 - 108 mmol/L | [facility] | | (LAB) | | | SERVICES, CORE | + + + + + | TOTAL CO2, PLASMA | 27 | 21 - 32 mmol/L | [facility] | | (LAB) | | | [...] LABORATORY | | | | | SERVICES, [facility] | + + + + + | ANION GAP | 5 | 4 - 11 mmol/L | [facility] | | | | | SERVICES, [...] | + + + + + | [facility] | [address] | [place] [address] | | | KOKI STUART | EULALIO [...] (L) | 9.7 - 12.3 fL | [facility] | | | | | SERVICES, CORE | + + + + + | NRBC% | 0.0 | 0.0 - 0.3 % | [facility] | | | | | SERVICES, [...] | + + + + + | [facility] | [address] | [place] [address] | | | SERVICES, CORE | [address] [...] YBARRA, DERRICK Resident: | | | Dereck Rodriguez MD, Doris Weldon MD Anesthesia: [place] | [...] operation. | | | Dereck Rodriguez MD [facility] [address] [facility] | | | [place] [address] | | + + + [...] attempt. Midline | | | lot number [id number]; there was excellent blood return. The | [...] + + | Performing | Address | [facility]/State/Zipcode | Phone Number | | Organization | [...] EJECTION FRACTION | 57.5 | % | [facility] | | [facility] [facility] | | | CARDIOLOGY | + + + + + + + + | Narrative | Performed At | + + + | [facility] | [facility] | | [facility]chocardi[facility] | CARDIOLOGY | | [address], | | | [place] [address] Pt Name: | | | SUSSY ALLRED Study Date/Time 12/07/2018 / 8:45:36 | | | AMMRN: [id number] Most recent | | | prior: 11/26/2018Acc #: [id number] No. | | | previous echos: 1DOB: 1950 68 years Heart | | | Rate: 88 bpmHeight: 64.0 in | | | Blood Pressure: 104/64 mm/HgWeight: 145.0 | | | lb Gender: | | | FBSA: 1.71 m | | | Order ID: [id number] | | | [facility] Gayle Michael RCSSonographer | | [...] Report | | | electronically signed by: [id number] Kathleen Sam MD (12/07/2018, | | | 4:42:18 PM) Final | | + + + + + | Procedure Note | + + | Interface, Cardiology Results - 12/07/2018 4:42 PM [facility] | | [facility] Echocardiography Laboratory [address] [place] [address] | | [place], [place] [address] Pt Name: SUSSY REEVES | | CHALINO Study Date/Time 12/07/2018 / 8:45:36 AMMRN: [id number] Most | | recent prior: 11/26/2018Acc #: [id number] No. previous echos: 1DOB: | | 1950 68 years Heart Rate: 88 bpmHeight: 64.0 in Blood | | Pressure: 104/64 mm/HgWeight: 145.0 lb Gender: FBSA: | | 1.71 m | | Order ID: [id number] [facility] [place] | | [facility] 2:Referring Provider: Dennis AllredModalities Performed: 2D, | [...] and indexed values Report electronically signed by: [id number] | | Kathleen Sam MD (12/07/2018, 4:42:18 [...] | | | |Report electronically signed by: [id number] Kathleen Sam MD (12/07/2018, 4:42:18 PM) | | | | | | | | Final | + + + + + + + | Performing | Address | City/State/Zipcode | Phone Number | | Organization | | | | + + + + + | [facility] | [address] | [place], [place] | | | CARDIOLOGY | [address] | [address] | | + + + + + X-RAY PORTABLE CHEST 1 VIEW (12/07/2018 5:56 AM) + + + | Narrative | Performed At | + + + | EXAM: MI CHEST 1 VIEW HISTORY: SoB COMPARISON: Chest [...] Interface - 12/07/2018 12:19 PM PDT EXAM: MI CHEST 1 | | VIEW HISTORY: SoB [...] 2.3 | 1.6 - 2.6 mg/dL | [facility] | | | | | SERVICES, CORE | + +-------+ + + + + | Specimen | + + | Blood - Blood | + + + + + + + | Performing | Address | City/State/Zipcode | Phone Number | | Organization | | | | + + + + + | [facility] | [address] | [place] [address] | | | SERVICES, CORE | [address] | | | + + + + + CBC (HEMOGRAM) ONLY (12/07/2018 2:20 AM) + + + + + | Component | Value | Ref Range | Performed At | + + + + + | WHITE CELL COUNT | 13.40 (H) | 3.50 - 10.80 K/cu mm | [facility] | | | | | KOKI STUART | + + + + + | RED CELL COUNT | 2.52 (L) | 4.00 - 5.20 M/cu mm | [facility] | | | | | SADE [...] | 150 - 400 K/cu mm | [facility] | | | | | SERVICES, CORE | + + + + + | MPV | 9.2 (L) | 9.7 - 12.3 fL | [facility] | | | | | SERVICES, CORE | + + + + + | NRBC% | 0.0 | 0.0 - 0.3 % | [facility] | | | | | SERVICES, CORE | + + + + + | NRBC# | 0.00 | 0.00 - 0.02 K/cu mm | [facility] | | | | | SERVICES, CORE | + + + + + + + | Specimen | + + | Blood - Blood | + + + + + + + | Performing | Address | City/State/Zipcode | Phone Number | | Organization | | | | + + + + + | [facility] | [address] | [place] [address] | | | SERVICES, CORE | [address] [...] >60 mL/min | [facility] | | [place] | | | SADE, CORE | + +---------+ + + | EGFR NON | >60 | >60 mL/min | [facility] | | -[place] | | | [facility], CORE | + +---------+ + + | [...] | | CORRECTED) | | | SERVICES, [facility] | + +---------+ + + | ALBUMIN, [...] 5 | 4 - 11 mmol/L | [facility] | | | | | SERVICES, CORE | + +---------+ + + | ANION GAP(ALB | 9 | 4 - 11 mmol/L | [facility] | | CORRECTED) | | | [facility], CORE | + +---------+ + + + + | Specimen | + + | Blood - Blood | + + + + + | Narrative | Performed At | + + + | GFR is estimated using the MDRD equation recommended by the | [facility] | | National Kidney Disease Education Program. Estimated GFR | LABORATORY | | Interpretive Information: <60 mL/min/1.73 sq | [facility], CORE | | m Chronic Kidney Disease [...] | + + + + + | [facility] | [address] | [place] [address] | | | KOKI STUART | [address] | | | + + + + + PROCEDURE NOTE (12/06/2018 7:33 PM)CBC (HEMOGRAM) ONLY (12/06/2018 12:27 PM) + + + + + | Component | Value | Ref Range | Performed At | + + + + + | WHITE CELL COUNT | 12.39 (H) | 3.50 - 10.80 K/cu mm | [facility] | | | | | SERVICES [...] (L) | 9.7 - 12.3 fL | [facility] | | | | | SERVICES, CORE | + + + + + | NRBC% | 0.0 | 0.0 - 0.3 % | [facility] | | | | | SERVICES, CORE | + + + + + | NRBC# | 0.00 | 0.00 - 0.02 K/cu mm | [facility] | | | | | SERVICES, CORE | + + + + + + + | Specimen | + + | Blood - Blood | + + + + + + + | Performing | Address | City/State/Zipcode | Phone Number | | Organization | | | | + + + + + | [facility] | [address] | [place] [address] | | | SERVICES, CORE | [address] | | | + + + + + MAGNESIUM, PLASMA (12/06/2018 6:29 AM) + +-------+ + + | Component | Value | Ref Range | Performed At | + +-------+ + + | MAGNESIUM,PLASMA | 2.1 | 1.6 - 2.6 mg/dL | [facility] | | | | | KOKI STUART | + +-------+ + + + + | Specimen | + + | Blood - Blood | + + + + + + + | Performing | Address | City/State/Zipcode | Phone Number | | Organization | | | | + + + + + | [facility] | [address] | [place] [address] | | | SERVICES, CORE | [address] [...] >60 mL/min | [facility] | | [place] | | | SADE, CORE | + +---------+ + + | EGFR NON | >60 | >60 mL/min | [facility] | | -[place] [facility] | | | SERVICES, CORE | + [...] LABORATORY | | (LAB) | | | [facility], CORE | + +---------+ + + | CALCIUM, PLASMA | 8.0 (L) | 8.6 - 10.2 mg/dL | [facility] | | (LAB) | | | SERVICES, CORE | + +---------+ + + | ANION GAP | 7 | 4 - 11 mmol/L | [facility] | | | | | SERVICES, CORE | + +---------+ + + | POTASSIUM CMNT | No Hemo | | [facility] | | | | | SERVICES, CORE | + +---------+ + + + + | Specimen | + + | Blood - Blood | + + + + + | Narrative | Performed At | + + + | GFR is estimated using the MDRD equation recommended by the | [facility] | | National Kidney Disease Education Program. [...] | + + + + + | [facility] | [address] | [place] [address] | | | KOKI STUART | [address] | | | + + + + + X-RAY PORTABLE CHEST 1 VIEW (12/06/2018 6:10 AM) + + + | Narrative | Performed At | + + + | EXAM: MI CHEST 1 VIEW HISTORY: SoB COMPARISON: Yesterday [...] Interface - 12/06/2018 8:38 AM PDT EXAM: MI CHEST 1 | | VIEW HISTORY: SoB [...] (H) | 80.0 - 100.0 fL | [facility] | | | | | SERVICES, CORE | + + + + + | MCHC | 32.1 | 32.0 - 36.0 g/dL | [facility] | | | | | SERVICES, CORE | + + + + + | RDW SD | 46.1 | 35.1 - 46.3 fL | [facility] | | | | | SERVICES, CORE | + + + + + | PLATELET COUNT | 233 | 150 - 400 K/cu mm | [facility] | | | | | SERVICES, CORE | + + + + + | MPV | 8.9 (L) | 9.7 - 12.3 fL | [facility] | | | | | SERVICES, [...] | + + + + + | [facility] | [address] | [place] [address] | | | SADE, KOKI | [address] [...] Images archived to | | | institution vp integration | | + + + X-RAY PORTABLE CHEST 1 VIEW (12/05/2018 5:59 AM) + + + | Narrative | Performed At | + + + | EXAM: MI CHEST 1 VIEW HISTORY: post left thoracotomy, [...] Interface - 12/05/2018 9:53 AM PDT EXAM: MI CHEST 1 | | VIEW HISTORY: post [...] | | site: Radial Catheter size: 3 montenegrin x 5 cm Number of | | [...] (L) | 9.7 - 12.3 fL | [facility] | | | | | SERVICES, CORE | + + + + + | NRBC% | 0.0 | 0.0 - 0.3 % | [facility] | | | | | SERVICES, CORE | + + + + + | NRBC# | 0.00 | 0.00 - 0.02 K/cu mm | [facility] | | | | | SERVICES, CORE | + + + + + + + | Specimen | + + | Blood - Blood | + + + + + + + | Performing | Address | City/State/Zipcode | Phone Number | | Organization | | | | + + + + + | [facility] | [address] | [place] [address] | | | KOKI STUART | [address] [...] | + + + + + | [facility] | [address] | [place] [address] | | | SERVICES, CORE | [address] [...] >60 mL/min | [facility] | | [place] [facility] | | | SADE, CORE | + +---------+ + + | EGFR NON | 59 (L) | >60 mL/min | [facility] | | -[facility] | | | SERVICES, CORE | + [...] | | CORRECTED) | | | SERVICES, [facility] | + +---------+ + + | ALBUMIN, PLASMA | 2.8 (L) | 3.5 - 4.7 g/dL | [facility] | | (LAB) | | | SERVICES, CORE | + +---------+ + + | PHOSPHORUS, PLASMA | 3.4 | 2.4 - 4.7 mg/dL | [facility] | | (LAB) | | | [facility] | + +---------+ + + | POTASSIUM CMNT | No Hemo | | [facility] | | | | | SERVICES, CORE | + +---------+ + + | ANION GAP | 8 | 4 - 11 mmol/L | [facility] | | | | | SERVICES, CORE | + +---------+ + + | ANION GAP(ALB | 11 | 4 - 11 mmol/L | [facility] | | CORRECTED) | | | SERVICES, [facility] | + +---------+ + + + + | Specimen | + + | Blood - Blood | + + + + + | Narrative | Performed At | + + + | GFR is estimated using the MDRD equation recommended by the | [facility] | | National Kidney Disease Education Program. Estimated GFR | LABORATORY | | Interpretive Information: <60 mL/min/1.73 sq | [facility] | | m Chronic Kidney Disease <15 [...] | + + + + + | Exent | [address] | [place] [address] | | | [facility] ST[facility] | [address] | | | + + + + + X-RAY PORTABLE CHEST 1 VIEW (12/04/2018 6:32 PM) + + + | Narrative | Performed At | + + + | EXAM: MI CHEST 1 VIEW HISTORY: Status post left [...] Interface - 12/05/2018 9:54 AM PDT EXAM: MI CHEST 1 | | VIEW HISTORY: Status [...] (L) | 26.0 - 36.0 seconds | [facility] | | | | | SERVICES, [...] [facility] | [address] | [place] [address] | | | KOKI STUART | [address] | | | + + + + + CBC (HEMOGRAM) ONLY (12/04/2018 5:56 PM) + + + + + | Component | Value | Ref Range | Performed At | + + + + + | WHITE CELL COUNT | 13.55 (H) | 3.50 - 10.80 K/cu mm | [facility] | | | | | SERVICES, [...] (H) | 80.0 - 100.0 fL | [facility] | | | | | SERVICES, [...] (L) | 9.7 - 12.3 fL | [facility] | | | | | SERVICES, CORE | + + + + + | NRBC% | 0.0 | 0.0 - 0.3 % | [facility] | | | | | SERVICES, CORE | + + + + + | NRBC# | 0.00 | 0.00 - 0.02 K/cu mm | [facility] | | | | | SERVICES, CORE | + + + + + + + | Specimen | + + | Blood - Blood | + + + + + + + | Performing | Address | City/State/Zipcode | Phone Number | | Organization | | | | + + + + + | [facility] | [address] | [place] [address] | | | SERVICES, [place] | PARK [...] >60 mL/min | [facility] | | [place] | | | SERVICES, CORE | + +---------+ + + | EGFR NON | >60 | >60 mL/min | [facility] | | -[place] | | | SERVICES, CORE | + [...] LABORATORY | | (LAB) | | | [facility], CORE | + +---------+ + + | ANION GAP | 8 | 4 - 11 mmol/L | [facility] | | | | | SERVICES, CORE | + +---------+ + + | POTASSIUM CMNT | Sl Hemo | | [facility] | | | | | SERVICES, [...] | + + + + + | [facility] | [address] | [place] [address] | | | SERVICES, [place] | [address] [...] [facility] | [address] | [place], [place] | | | [facility] | [address] | [address] | | | TESTS | | | | + + + + + OPERATION RECORD (12/04/2018 4:05 PM) + + | Procedure Note | + + | Manoj Kumar MD - 12/04/2018 4:05 PM PDT Date of Service: 12/04/2018 Attending | | Surgeon:Manoj Kumar MD Clinical Research Physician(s):Pritesh Chang | | Bethel Quevedo MD Preoperative [...] 2 by single firings of YOLANDA stapler monterrsoo load. It was at this point we [...] ribs were reapproximated using | | multiple xpasoj-ci-qhnet #2 Vicryl sutures. Serratus closed with #1 Vicryl, | | subcutaneous tissue closed with 2-0 Vicryl, skin closed with 4-0 Vicryl. Sterile | | dressings were applied. A single 28-Lux[place]bourgish chest tube was placed through the inferior [...] 12/04/2018 15:15:41DT: 12/04/2018 16:05:12Job #: | | [id number] | + + CAPILLARY BLOOD GLUCOSE (NO [...] + + + | [facility] | [address] | [place], [place] | | | [facility] | [address] | [address] | | | TESTS | | | [...] [facility] | [address] | [place], [place] | | | MARISSA JAIMES OF [facility] | [address] | [address] | | | TESTS | | | [...] [facility] | [address] | [place], [place] | | | [facility] CARE | [address] | [address] | | | TESTS | | | [...] + | [facility] | [address] | [place], [place] | | | MARISSA JAIMES OF [facility] | [address] | [address] | | | TESTS | | | | + + + + + SURGICAL PATHOLOGY (12/04/2018 9:11 AM) + + + + + | Component | Value | Ref Range | Performed At | + + + + + | Clinical History | 68 year old female with | | [facility] | | | a history of left upper | | OF PATHOLOGY | | | lobe nodule and | | | | | mediastinal adenopathy | | | + + + + + | Final Pathologic | A. Lymph node, level 7, | | [facility] | | Diagnosis | biopsy: Fragments [...] (8th edition): | | | | | [id number]: The | | | | | tumor [...] | PathologistPathology, | | | | | [facility] | | | | | University electronic [...] | LUNG (Lung - All | | [facility] | | | Specimens) SPECIMEN | [...] Description | Received are 18 | | [facility] | | | specimens fresh in | | OF PATHOLOGY | | | containers labeled with | | | | | the patient's name | | | | | (initials JAO) and | | | | | medical record number | | | | | [id number]. Lymph node, | | | | | [...] | surfaces. | | | | | Intelligence Officer sections | | | | | are [...] fairbanks-white to | | | | | fairbanks-monterroso, firm, [...] positive | | | | | density, high school admissions representative | | | | | sectionsP. [...] hilar mass. | | | | | Intelligence Officer sections | | | | | are [...] node | | | | | from [id number]: 3.2 cm | | | | | [...] apical mass, | | | | | high school admissions representative sections, | | | | | to include relationship | | | | | with pleura in | | | | | [id number]: Subpleural | | | | | induration, | | | | | high school admissions representative | | | | | [id number]: Uninvolved | | | | | parenchyma, | | | | | high school admissions representative | | | | | [id number]: 1 density | | | | | suggestive of lymph | | | | | node, [id number]: 1 | | | | | density [...] Intraoperative use | Frozen section | | [facility] | | only - Final | [...] | PathologistPathology, | | | | | [facility] | | | | [...] | PathologistPathology, | | | | | [facility] | | | | [...] | PathologistPathology, | | | | | [facility] | | | | [...] | PathologistPathology, | | | | | [facility] | | | | [...] | PathologistPathology, | | | | | [facility] | | | | | UniversityFrozen section | | | | | diagnosis: E1. 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 Met | | | | | GRACIELA.Frozen section | | | | | pathologist(s): Ravi | | | | | MD Devonte PhD | | | | | | | | | | PathologistPathology, | | | | | [facility] | | | | [...] | PathologistPathology, | | | | | [facility] | | | | [...] | PathologistPathology, | | | | | [facility] | | | | [...] | PathologistPathology, | | | | | [facility] | | | | [...] | PathologistPathology, | | | | | [facility] | | | | [...] | PathologistPathology, | | | | | [facility] | | | | [...] | PathologistPathology, | | | | | [facility] | | | | [...] | | | | | Pathology, Leighann Halma | | | | | [place] that point | | | + + [...] | | | | | determined by [facility] | | | | | laboratories. It [...] | + + + + + | [facility] | [address] | [place] [address] | | | PATHOLOGY | [address] | | | + + + + + FINE NEEDLE ASPIRATE (12/04/2018 8:06 AM) + + + + + | Component | Value | Ref Range | Performed At | + + + + + | Clinical History | 68 year-old woman with a | | [facility] | | | PET-avid left upper | | OF PATHOLOGY | | | lobe nodule. | | | + + + + + | Final Pathologic | A. Lymph node, level 7, | | [facility] | | Diagnosis | ultrasound guided [...] pathology case | | | | | ([id number])]. No | | | | | definite carcinoma cells | | | | | seen are seen in this | | | | | sampling, however see | | | | | case [id number]. Case | | | | | seen by:Kathryn | | | | | CONNOR Ness([facility] - | | | | | CytotechnologistTodd [...] | PathologistPathology, | | | | | [facility] | | | | | [place] My electronic | | | | | [...] Impression | A: Evaluation episode | | [facility] | | | #1: Pass #1-3: [...] | PathologistPathology, | | | | | [facility] | | | | | [place] | | | + + + + + | Procedure Details | A. FNA by clinician. 3 | | [facility] | | | passes yielded fluid [...] | + + + + + | [facility] | [address] | [place] [address] | | | [facility] | | | | | HEALTH + HEALING | | | | + + + + + | [facility] | [address] | [place] [address] | | | PATHOLOGY | [address] | | | + + + + + CAPILLARY BLOOD GLUCOSE (NO CHG), POC (12/04/2018 6:50 AM) + +-------+ + + | Component | Value | Ref Range | Performed At | + +-------+ + + | BLOOD GLUCOSE, POC | 92 | 60 - 99 mg/dL | [facility] | | | | | MARISSA JAIMES OF | | | | | CARE TESTS | + +-------+ + + + + + + + | Performing | Address | City/State/Zipcode | Phone Number | | Organization | | | | + + + + + | [facility] | [address] | [place], [place] | | | I[facility] POINT OF [facility] | [address] | [address] | | | TESTS | | | [...]
--- OUTSIDE RECORDS SUMMARY | ~2018-12-15 | XMS | Encounter Summary ---
Demographics + + + | Address | [address] | | | [place] [address] | + + + | Home Phone [...] Author + + + | Author | [facility] | + + + | Organization | [facility] | + + + | [...] Team Providers + +------+ + | Care Shale Planer Operator Name | Role | Phone | + +------+ + | Lauryn Stuart | PCP | | + +------+ + Encounter Details +--------+ + + + + | Date | Type | Department | Care Team | Description | +--------+ + + + + | 11/26/ | Hospital | Radiology/Imaging | Alejandro Waters NP | | | 2019 | Encounter | Lab at [facility] [address] | [address] | | | | | [address] Mailcode: | [place], [place] | | | | | [address] | [address] | | | | | Health and Healing, | [phone] | | | | | [address] [place] [address], | | | | | | [place] [address] | | | | | | [phone] | | | +--------+ + + + [...] [address] | | | | | | [place], [place] | | | | | | [address] | | | | | | [phone] | | | | | | | | +--------+---------+ + + + as of this encounter Procedures + +--------+ + + + | Procedure Name | Priori | Date/Time | Associated Diagnosis | Comments | | | ty | | | | + +--------+ + + + | X-RAY CHEST 2 VIEW | Routin | 11/26/2018 | Neoplasm | Results for this | | | e | 3:06 PM | | procedure are in the | | | | PDT | | results section. | + +--------+ + + + in this encounter Results X-RAY CHEST 2 VIEW (11/26/2018 3:06 PM) + + + | Narrative | Performed At | + + + | EXAM: CHEST 2 VIEWS HISTORY: pre op COMPARISON: CT | [facility] | | 10/11/2018, PET CT 10/23/2018, chest 10/09/2018 FINDINGS: Left | RADIOLOGY VOICE | | upper lobe pulmonary nodule and right upper lobe pulmonary nodule are | RECOGNITION 2 | | similar to prior CT. No new consolidation. The cardiomediastinal | | | contour is stable with increased fullness of the left aortopulmonary | | | window, corresponding to lymphadenopathy on recent CT. The lungs are | | | clear. There is no pleural effusion or pneumothorax. There is no | | | pulmonary edema. The bones are intact. IMPRESSION: Bilateral | | | upper lobe pulmonary nodules and left aortopulmonary window | | | lymphadenopathy, similar to prior. No new acute cardiopulmonary | | | process. I have personally reviewed the images and, if necessary, | | | edited the report. I agree with the report as now presented. | | | Final signature: Frieda Brumfield MD 11/26/2018 3:56 PM Preliminary: | | | Nomi Burks MD Dictation initiated: Nomi Burks | Bhavik Gutierres MD 11/26/2018 3:33 PM | | + + + + + | Procedure Note | + + | 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, Radiant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 - 11/26/2018 3:57 PM PDT EXAM: CHEST 2 | | VIEWS HISTORY: pre op COMPARISON: CT 10/11/2018, PET CT 10/23/2018, chest 10/09/2018 | | FINDINGS: Left upper lobe pulmonary nodule and right upper lobe pulmonary nodule are | | similar to prior CT. No new consolidation. The cardiomediastinal contour is stable with | | increased fullness of the left aortopulmonary window, corresponding to lymphadenopathy | | on recent CT. The lungs are clear. There is no pleural effusion or pneumothorax. There | | is no pulmonary edema. The bones are intact. IMPRESSION: Bilateral upper lobe pulmonary | | nodules and left aortopulmonary window lymphadenopathy, similar to prior. No new acute | | cardiopulmonary process. I have personally reviewed the images and, if necessary, edited | | the report. I agree with the report as now presented. Final signature: Frieda Brumfield | | 11/26/2018 3:56 PM Preliminary: Nomi Burks MD Dictation initiated: [address] | | MD Kimmie 11/26/2018 3:33 PM | | | |Bilateral upper lobe pulmonary nodules and left aortopulmonary window lymphadenopathy, milo lar to prior. No new acute cardiopulmonary process. | | | |I have personally reviewed the images and, if necessary, edited the report. I agree with th e report as now presented. | | | |Final signature: Frieda Brumfield MD 11/26/2018 3:56 PM | |Preliminary: Nomi Burks MD | |Dictation initiated: Nomi Burks MD 11/26/2018 3:33 PM | + + + +---------+ + + | Performing | Address | City/State/Zipcode | Phone Number | | Organization | | | | + +---------+ + + | [facility] | | | | | VOICE RECOGNITION 2 | | | | + +---------+ + + in this encounter Visit Diagnoses + + | Diagnosis | + + | Neoplasm | + + | Neoplasm of unspecified nature, site unspecified | + +
--- OUTSIDE RECORDS SUMMARY | ~2018-12-15 | XMS | Encounter Summary ---
Demographics + + + | Address | [address] | | | [place] [address] | + + + | Home Phone [...] Author + + + | Author | [facility] | + + + | Organization | [facility] | + + + | Address | [...] Team Providers + +------+ + | Care Nurse Rn Bsn Name | Role | Phone | + [...] Pre-operative | | 2019 | cheduled | [facility] at | | evaluation | | | | [facility] | | | | | | [address] | | | | | | Mail Code: OC8PM | | | | | | [facility] | | | | | | and Healing, | | | | | | [address] | | | | | | [place], [place] | | | | | | [address] | | | | | | [phone] | | | +--------+ + + + [...] | | 1 | Quick Note | Johnson of L main PA clamped | | [...] | 2019 | Visit | | [address] [facility] | | | | | | [address] | | | | | | [place] | | | | | | [address] | | | | | | [phone] | | | | | | | | +--------+---------+ + + + as of this encounter Visit Diagnoses Not on filein this encounter
--- OUTSIDE RECORDS SUMMARY | ~2018-12-15 | XMS | Encounter Summary ---
Demographics + + + | Address | [address] | | | [place] [address] | + + + | Home Phone [...] Team Providers + +------+ + | Care Track Machine Operator Repairer Name | Role | Phone | + +------+ + | Lauryn Stuart | PCP | | + +------+ + Encounter Details +--------+------+ + + + | Date | Type | Department | Care Team | Description | +--------+------+ + + + | 11/26/ | Lab | Laboratory at [facility] | | Neoplasm | | 2019 | | [address] | | | | | | [place], [place] | | | | | | [address] | | | | | | [phone] | | | +--------+------+ + + + [...] Rd | | | | | | [place], [place] | | | | | | [address] | | | | | | [phone] | | | | | | | [...] + + + in this encounter Results CONFIRMATORY ABO/RH (11/26/2018 3:18 PM) + + + + + | Component | Value | Ref Range | Performed At | + + + + + | ABO Group | O | | [facility] | | | | | SERVICES, | | | | | TRANSFUSION | | | | | MEDICINE | + + + + + | Rh Type | Positive | | [facility] | | | | | SERVICES, | | | | | TRANSFUSION | | | | | MEDICINE | + + + + + + + | Specimen | + + | Blood - Blood | + + + + + + + | Performing | Address | City/State/Zipcode | Phone Number | | Organization | | | | + + + + + | [facility] | [address] | [place] [address] | | | SERVICES, | [address] | | | | TRANSFUSION MEDICINE | | | | + + + + + ANTIBODY SCREEN (11/26/2018 3:18 PM) + + + + + | Component | Value | Ref Range | Performed At | + + + + + | Antibody Screen | Negative | | [facility] | | | | | SERVICES, | | | | | TRANSFUSION | | | | | MEDICINE | + + + + + + + | Specimen | + + | Blood - Blood | + + + + + + + | Performing | Address | City/State/Zipcode | Phone Number | | Organization | | | | + + + + + | [facility] | [address] | [place] [address] | | | SERVICES, | [address] | | | | TRANSFUSION MEDICINE | | | | + + + + + ABO & RH TYPE (11/26/2018 3:18 PM) + + + + + | Component | Value | Ref Range | Performed At | + + + + + | ABO Group | O | | [facility] | | | | | SERVICES, | | | | | TRANSFUSION | | | | | MEDICINE | + + + + + | Rh Type | Positive | | [facility] | | | | | SERVICES, | | | | | TRANSFUSION | | | | | MEDICINE | + + + + + + + | Specimen | + + | Blood - Blood | + + + + + + + | Performing | Address | City/State/Zipcode | Phone Number | | Organization | | | | + + + + + | [facility] | [address] | [place] [address] | | | SERVICES, | [address] | | | | TRANSFUSION MEDICINE | | | | + + + + + CBC AND AUTO DIFF (11/26/2018 3:18 PM) + + + + + | Component | Value | Ref Range | Performed At | + + + + + | WHITE CELL COUNT | 5.46 | 3.50 - 10.80 K/cu mm | [facility] | | | | | SERVICES, | | | | | [facility] | | | | | HEALTH + | | | | | HEALING | + + + + + | RED CELL COUNT | 3.28 (L) | 4.00 - 5.20 M/cu mm | [facility] | | | | | SERVICES, | | | | | [facility] | | | | | HEALTH + | | | | | HEALING | + + + + + | HEMOGLOBIN | 10.9 (L) | 12.0 - 16.0 g/dL | [facility] | | | | | SERVICES, | | | | | [facility] | | | | | HEALTH + | | | | | HEALING | + + + + + | HEMATOCRIT | 33.2 (L) | 36.0 - 46.0 % | [facility] | | | | | SERVICES, | | | | | [facility] | | | | | HEALTH + | | | | | HEALING | + + + + + | MCV | 101.2 (H) | 80.0 - 100.0 fL | [facility] | | | | | SERVICES, | | | | | [facility] | | | | | HEALTH + | | | | | HEALING | + + + + + | MCHC | 32.8 | 32.0 - 36.0 g/dL | [facility] | | | | | SERVICES, | | | | | [facility] | | | | | HEALTH + | | | | | HEALING | + + + + + | RDW SD | 45.4 | 35.1 - 46.3 fL | [facility] | | | | | SERVICES, | | | | | [facility] FOR | | | | | HEALTH + | | | | | HEALING | + + + + + | PLATELET COUNT | 333 | 150 - 400 K/cu mm | [facility] | | | | | SERVICES, | | | | | [facility] | | | | | HEALTH + | | | | | HEALING | + + + + + | MPV | 9.0 (L) | 9.7 - 12.3 fL | [facility] | | | | | SERVICES, | | | | | [facility] | | | | | HEALTH + | | | | | HEALING | + + + + + | NRBC% | 0.0 | 0.0 - 0.3 % | [facility] | | | | | SERVICES, | | | | | [facility] | | | | | HEALTH + | | | | | HEALING | + + + + + | NRBC# | 0.00 | 0.00 - 0.02 K/cu mm | [facility] | | | | | SERVICES, | | | | | [facility] | | | | | HEALTH + | | | | | HEALING | + + + + + | NEUTROPHIL % | 62.8 | 50.0 - 70.0 % | [facility] | | | | | SERVICES, | | | | | [facility] | | | | | HEALTH + | | | | | HEALING | + + + + + | LYMPHOCYTE % | 24.5 | 18.0 - 42.0 % | [facility] | | | | | SERVICES, | | | | | [facility] | | | | | HEALTH + | | | | | HEALING | + + + + + | MONOCYTE % | 10.4 (H) | 3.5 - 9.0 % | [facility] | | | | | SERVICES, | | | | | [facility] | | | | | HEALTH + | | | | | HEALING | + + + + + | EOS % | 1.3 | 1.0 - 3.0 % | [facility] | | | | | SERVICES, | | | | | [facility] | | | | | HEALTH + | | | | | HEALING | + + + + + | BASO % | 0.5 | 0.0 - 2.0 % | [facility] | | | | | SERVICES, | | | | | [facility] | | | | | HEALTH + | | | | | HEALING | + + + + + | IG% | 0.5Comment: Increased | 0.0 - 1.0 % | [facility] | | | immature granulocytes | | SERVICES, | | | (IG) define a left | | CENTER FOR | | | shift. Immature | | HEALTH + | | | granulocytes (IG) are an | | HEALING | | | automated count of | | | | | metamyelocytes, | | | | | myelocytes and | | | | | promyelocytes. Bands | | | | | are not included in the | | | | | IG count. Bands are | | | | | included in the | | | | | neutrophil count. | | | + + + + + | NEUTROPHIL # | 3.42 | 1.80 - 7.70 K/cu mm | [facility] | | | | | SERVICES, | | | | | [facility] | | | | | HEALTH + | | | | | HEALING | + + + + + | LYMPHOCYTE # | 1.34 | 1.00 - 4.80 K/cu mm | [facility] | | | | | SERVICES, | | | | | [facility] | | | | | HEALTH + | | | | | HEALING | + + + + + | MONOCYTE # | 0.57 | 0.10 - 0.90 K/cu mm | [facility] | | | | | SERVICES, | | | | | [facility] | | | | | HEALTH + | | | | | HEALING | + + + + + | EOS # | 0.07 | 0.00 - 0.50 K/cu mm | [facility] | | | | | SERVICES, | | | | | [facility] | | | | | HEALTH + | | | | | HEALING | + + + + + | BASO # | 0.03 | 0.00 - 0.10 K/cu mm | [facility] | | | | | SERVICES, | | | | | [facility] | | | | | HEALTH + | | | | | HEALING | + + + + + | IG# | 0.03 | 0.00 - 0.10 K/cu mm | [facility] | | | | | SERVICES, | | | | | [facility] | | | | | HEALTH + | | | | | HEALING | + + [...] are included in the neutrophil count. | [facility] | | | HEALTH + | | | HEALING | + + + + + + + + | Performing | Address | City/State/Zipcode | Phone Number | | Organization | | | | + + + + + | [facility] | [address] | [place] [address] | | | [facility] | | | | | HEALTH + HEALING | | | | + + + + + RENAL FUNCTION SET (NA,K,CL,CO2,BUN,CREAT,GLUC,CA,PHOS,ALB ) (11/26/2018 3:18 PM) + +---------+ + + | Component | Value | Ref Range | Performed At | + +---------+ + + | GLUCOSE, PLASMA | 101 (H) | 70 - 99 mg/dL | [facility] | | (LAB) | | | SERVICES, | | | | | [facility] | | | | | HEALTH + | | | | | HEALING | + +---------+ + + | BUN, PLASMA (LAB) | 15 | 6 - 20 mg/dL | [facility] | | | | | SERVICES, | | | | | [facility] | | | | | HEALTH + | | | | | HEALING | + +---------+ + + | CREATININE PLASMA | 0.97 | 0.60 - 1.10 mg/dL | [facility] | | (LAB) | | | SERVICES, | | | | | [facility] | | | | | HEALTH + | | | | | HEALING | + +---------+ + + | EGFR - | >60 | >60 mL/min | [facility] | | [place] | | | SERVICES, | | | | | [facility] | | | | | HEALTH + | | | | | HEALING | + +---------+ + + | EGFR NON | 57 (L) | >60 mL/min | [facility] | | [place] | | | SERVICES, | | | | | [facility] | | | | | HEALTH + | | | | | HEALING | + +---------+ + + | SODIUM, PLASMA (LAB) | 143 | 136 - 145 mmol/L | [facility] | | | | | SERVICES, | | | | | [facility] | | | | | HEALTH + | | | | | HEALING | + +---------+ + + | POTASSIUM, PLASMA | 3.8 | 3.4 - 5.0 mmol/L | [facility] | | (LAB) | | | SERVICES, | | | | | [facility] | | | | | HEALTH + | | | | | HEALING | + +---------+ + + | CHLORIDE, PLASMA | 105 | 97 - 108 mmol/L | [facility] | | (LAB) | | | SERVICES, | | | | | [facility] | | | | | HEALTH + | | | | | HEALING | + +---------+ + + | TOTAL CO2, PLASMA | 29 | 21 - 32 mmol/L | [facility] | | (LAB) | | | SERVICES, | | | | | [facility] | | | | | HEALTH + | | | | | HEALING | + +---------+ + + | CALCIUM, PLASMA | 8.0 (L) | 8.6 - 10.2 mg/dL | [facility] | | (LAB) | | | SERVICES, | | | | | [facility] | | | | | HEALTH + | | | | | HEALING | + +---------+ + + | CALCIUM(ALB | 8.8 | 8.6 - 10.2 mg/dL | [facility] | | CORRECTED) | | | SERVICES, | | | | | [facility] | | | | | HEALTH + | | | | | HEALING | + +---------+ + + | ALBUMIN, PLASMA | 3.0 (L) | 3.5 - 4.7 g/dL | [facility] | | (LAB) | | | SERVICES, | | | | | [facility] | | | | | HEALTH + | | | | | HEALING | + +---------+ + + | PHOSPHORUS, PLASMA | 2.7 | 2.4 - 4.7 mg/dL | [facility] | | (LAB) | | | SERVICES, | | | | | [facility] | | | | | HEALTH + | | | | | HEALING | + +---------+ + + | POTASSIUM CMNT | No Hemo | | [facility] | | | | | SERVICES, | | | | | [facility] | | | | | HEALTH + | | | | | HEALING | + +---------+ + + | ANION GAP | 9 | 4 - 11 mmol/L | [facility] | | | | | SERVICES, | | | | | [facility] | | | | | HEALTH + | | | | | HEALING | + +---------+ + + | ANION GAP(ALB | 11 | 4 - 11 mmol/L | [facility] | | CORRECTED) | | | SERVICES, | | | | | [facility] | | | | | HEALTH + | | | | | HEALING | + +---------+ + + + + [...] Interpretive Information: <60 mL/min/1.73 sq | SERVICES, | | m Chronic Kidney Disease <15 mL/min/1.73 | [place] [facility] | | sq m Kidney Failure Estimated GFR greater | HEALTH + | | than 60 mL/min/1.73 sq m is of limited clinical value. The MDRD | HEALING | | equation is not valid in [...] | + + + + + | [facility] | [address] | [place] [address] | | | [facility] | | | | | HEALTH + HEALING | | | | + + + + + INR (11/26/2018 3:18 PM) + +-------+ + + | Component | Value | Ref Range | Performed At | + +-------+ + + | INR | 0.93 | 0.90 - 1.20 INR | [facility] | | | | | SERVICES, CORE | + +-------+ + + + + | Specimen | + + | Blood - Blood | + + + + + | Narrative | Performed At | + + + | INR Therapeutic ranges for full anticoagulation: INR for | [facility] | | Venous Thromboembolism (2.0 - 3.0) INR INR | LABORATORY | | for most patients with mech. valves (2.5 - 3.5) INR | SERVICES, CORE | + + + + + + + + | Performing | Address | City/State/Zipcode | Phone Number | | Organization | | | | + + + + + | [facility] | [address] | [place] [address] | | | SERVICES, CORE | [address] | | | + + + + + in this encounter Visit Diagnoses + + | Diagnosis | + + | Neoplasm | + + | Neoplasm of unspecified nature, site unspecified | + +
--- OUTSIDE RECORDS SUMMARY | ~2018-12-15 | XMS | Encounter Summary ---
Demographics + + + | Address | [address] | | | [place] [address] | + + + | Home Phone | | + + + | Preferred Language | Unknown | + + + | Marital Status | Single | + + + | Zoroastrianism Affiliation | NRP | + + + | Race | White | + + + | Ethnic Group | Not or | + + + Author + + + | Author | [facility] | + + + | Organization | [facility] | + + + | Address [...] Team Providers + +------+ + | Care Cashier Clerk Name | Role | Phone | + +------+ + PCP | Unavailable | + +------+ + Encounter Details +--------+ + + + + | Date | Type | Department | Care Team | Description | +--------+ + + + + | 10/29/ | Abstract | Pulmonary & | Service, Pulmonary | | | 2019 | | Critical Care | Consult [address] | | | | | Medicine at | [facility] | | | | | [address] [place], [place] | | | | | [address] [facility] | [address] | | | | | [facility] | | | | | | Mailcode: [id number] | | | | | | [facility] | | | | | | [address] [place] [address] | | | | | | [address] | | | | | | [phone] | | | +--------+ + + + [...] [address] | | | | | | [place] | | | | | | [address] | | | | | | [phone] | | | | | | | | +--------+---------+ + + + as of this encounter Visit Diagnoses Not on filein this encounter"
--- OUTSIDE RECORDS SUMMARY | ~2018-12-15 | XMS | Encounter Summary ---
Demographics + + + | Address | [address] | | | [place] [address] | + + + | Home Phone | | + + + | Preferred Language | Unknown | + + + | Marital Status | Single | + + + | Sabianist Affiliation | NRP | + + + [...] Team Providers + +------+ + | Care Home Furnishings Sales Representative Name | Role | Phone | + +------+ + | Lauryn Stuart | PCP | | + +------+ + Reason for Visit + + + | Reason | Comments | + + + | Appointment | | + + + Encounter Details +--------+ + + + + | Date | Type | Department | Care Team | Description | +--------+ + + + + | 04/08/ | Telephone | Cardiac | Stephanie Munoz RN | Appointment | | 2018 | | Non-Invasive Testing | [address] | | | | | at [facility] [address] | [address] | | | | | [address] Mailcode: | [place], [place] | | | | | [address] [place] [address] | [address] | | | | | [facility] | | | | | | [place], [place] | | | | | | [address] | | | | | | [phone] | | | +--------+ + + + [...] [address] | | | | | | [place], [place] | | | | | | [address] | | | | | | [phone] | | | | | | | | +--------+---------+ + + + as of this encounter Visit Diagnoses Not on filein this encounter
--- OUTSIDE RECORDS SUMMARY | ~2018-12-15 | XMS | Encounter Summary ---
Demographics + + + | Address | [address] | | | [place] [address] | + + + | Home Phone | | + + + | Preferred Language | Unknown | + + + | Marital Status | Single | + + + | Jainism Affiliation | NRP | + + + | Race | White | + + + | Ethnic Group | Not or | + + + Author + + + | Author | [facility] | + + + | Organization | [facility] | + + + | Address [...] Team Providers + +------+ + | Care Embroidery Assistant Name | Role | Phone | + +------+ + | Lauryn Stuart | PCP | | + +------+ + Encounter Details +--------+ + + + + | Date | Type | Department | Care Team | Description | +--------+ + + + + | 11/26/ | Hospital | Radiology/Imaging | Alejandro Waters NP | | | 2019 | Encounter | Lab at [facility] [address] | [address] | | | | | [address] Mailcode: | [place], [place] | | | | | [address] | [address] | | | | | Health [facility], | [phone] | | | | | [address] [place] [address], | | | | | | [place] [address] | | | | | | [phone] | | | +--------+ + + + [...] [address] | | | | | | [place], [place] | | | | | | [address] | | | | | | [phone] | | | | | | | [...]
--- OUTSIDE RECORDS SUMMARY | ~2018-12-15 | XMS | Encounter Summary ---
Demographics + + + | Address | [address] | | | [place] [address] | + + + | Home Phone [...] Author + + + | Author | [facility] | + + + | Organization | [facility] | + + + | Address [...] Team Providers + +------+ + | Care Team Automobile Assembler Name | Role | Phone | [...] 12/04/ | Surgery | 6A Intra Op [facility] | Manoj Kumar MD | FLEXIBLE | | 2019 | | [facility] | [address] [facility] | BRONCHOSCOPY, | | | | Admitting Desk | [facility] | ENDOBRONCHIAL | | | | Located on the 9 | [place], [place] | ULTRASOUND GUIDED | | | | floor [address] [place] [address] | [phone] | LYMPH NODE BIOPSIES, | | | | [facility] | [phone] | MEDIASTINOSCOPY; | | | | [place], [place] | | | | | | [address] | | | +--------+---------+ + + + [...] appropriate chest drains were placed, the nellie iebeth was extubated, and transferred to the post-anesthesia care unit. Once recovered, the mallika card was transferred to the post-operative ICU, where she remained for five days. On post-o p day (POD) five, the patient was transferred to the post-surgical alczaar where she remained f or the rest [...] Discharge Medications: Sussy Allred Home Medication Instructions ABRAHAN:[id number] Printed on:12/13/18 3062 Medication Information acetaminophen 325 mg oral tablet [...] % Intake/Output Summary (Last 24 hours) at 12/14/1873 Last data filed at 12/14/18 0705 Gross per 24 hour Intake 885 ml [...] Fragments of lymph node negative for metastasis (0) C. Lymph node, additional level 7, biopsy: [...] carcinoma in one of three lymph nodes (1) H. Lymph node, level 11L, biopsy: ? Metastatic carcinoma in one lymph node (1) I. Lymph node, level 7, biopsy: ? [...] Care Everywhere.Lung Resection: Post-op (Christiano rubio)Mediastinoscopy: Pre-op (Bulgarian)in this encounter Medications at Time of Discharge [...] 2:00 PM PDTLeft chest tube removed. Keena Myles, MYRNA -ENTRY LEVEL MANUFACTURING ENGINEER - 12/13/2018 8:11 AM PDT ENT SPEECH [...] or concerns about eating, drinking. DIETARY STATUS: [facility] soft. Ate steelhead, veggies, rice and [...] Voice clear, breathing comfortably. No further acute ENTRY LEVEL MANUFACTURING ENGINEER needs. PLAN: 1. ADAT back to regular diet. Pills by mouth okay - in liquids or purees as she wishes. -Aspiration precautions - upright with all PO, single small bites/sips, one bite/sip at a time -L head-turn + chin-tuck is fine if patient finds it helpful with liquids 2. TFs have been discontinued 3. ENT ENTRY LEVEL MANUFACTURING ENGINEER will sign-off. Patient can follow-up with us as outpatient in clinic with Dr. Jose arce as needed. Keena Myles MS, CCC-ENTRY LEVEL MANUFACTURING ENGINEER Speech-Language Pathologist [facility] Dept. of Otolaryngology, [address] [place] [address] Pager: [phone] Silvana Quevedo MD - 12/13/2018 7:11 AM PDTFormatting of this note may be different from the original. Thoracic Surgery Brief Inpatient Progress Note Patient name: SUSSY ALLRED Attending: Manoj Kumar MD Procedure day: 9 Procedure: Left thoracotomy, CODY lobectomy with bronchial and PA reconstruction 24 hour events: - Remains on NC, doing well, tolerating [facility] soft diet and diet, no complaints. [...] One lymph node negative for metastasis (0) O. Lymph node, 3 superior, biopsy: ? [...] mechanical soft diet. Tube feeds off. Plan (nhnf-of-ykphpnko issues): - Aspiration pneumonitis: Resolved - Hypophosphatemia: [...] Stacy Quevedo MD Cardiothoracic Surgery Fellow Pager: [phone] Keena Myles, [facility]-ENTRY LEVEL MANUFACTURING ENGINEER - 12/12/2018 12:22 PM PDT ENT SPEECH [...] may not be indicated until 6 weeks post-[facility] ent. DIETARY STATUS: Purees and any liquids. [...] resident on- call. [facility] and any liquids for more palatable [...] of TFs to promote appetite 3. ENT ENTRY LEVEL MANUFACTURING ENGINEER will continue to follow. Please page [phone] as needed. Keena Myles MS, [facility]-ENTRY LEVEL MANUFACTURING ENGINEER Speech-Language Pathologist [facility] Dept. of Otolaryngology, [address] [place] [address] Pager: [phone] Silvana Quevedo MD - 12/12/2018 7:53 AM [...] a PEG tube for nutri tion. 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 The patient was evaluated in the [facility] 10th floor Radiology suite & [...] re: decrease or discontinue TFs 3. ENT ENTRY LEVEL MANUFACTURING ENGINEER will follow-up on morning. Please page [phone] or [phone] as needed. Keena Myles MS, CCC-ENTRY LEVEL MANUFACTURING ENGINEER Speech-Language Pathologist [facility] Dept. of Otolaryngology, [address] [place] [address] Pager: [phone] Keena Myles CCC-ENTRY LEVEL MANUFACTURING ENGINEER - 12/11/2018 10:26 AM PDT ENT SPEECH [...] to improve and tolerate PO. 4. ENT ENTRY LEVEL MANUFACTURING ENGINEER [place] [phone] or [phone] any time with questions or concer ns. Keena Myles MS, CCC-ENTRY LEVEL MANUFACTURING ENGINEER Speech-Language Pathologist [facility] Dept. of Otolaryngology, [address] [place] [address] Pager: [phone] Silvana Quevedo MD - 12/11/2018 8:24 AM [...] PEG tube and stric t NPO. Plan (cxzf-ry-hdblcscz issues): - Aspiration pneumonitis: Productive sputum, augmentin [...] Stacy Quevedo MD Cardiothoracic Surgery Fellow Pager: [phone] Meggan Downs, HANNA - 12/10/2018 4:21 PM PDTINPATIENT ENT SPEECH PROGRESS NOTE: Order received, chart reviewed. Patient with history of "large volume aspiration", even un clear. Recommend objective swallow evaluation in Radiology Sunday, 12/11 prior to initiat ion of p.o. Intake. Recommend: NPO, all nutrition/hydration/medication via PEG Plan: [facility] Sunday. Meggan Downs, Ph.D., CCC-ENTRY LEVEL MANUFACTURING ENGINEER Dice Table Person Director, [facility] Otolaryngology, Head and Neck Surgery [facility] [phone] Augustine Nolan MD - 12/10/2018 9:51 AM PDTFormatting of this note may be different f rom the original. PATIENT NAME: Sussy Allred [facility] MR#: [id number] : 1950 PRIMARY CARE PROVIDER: MALLIKA [place] [...] [facility] an [facility] but is not particularly uncomfortable and the [...] Dr. Jose da silva. Augustine Nolan M.D. Dice Table Person Laryngology and Head & Neck SurgerySilvana Quevedo [...] PEG tube and stric t NPO. Plan (iovq-kh-prqcmrkw issues): - Aspiration pneumonitis: Productive sputum, augmentin [...] Stacy Quevedo MD Cardiothoracic Surgery Fellow Pager: [phone] Kiya Cedillo MD,PhD - 12/09/2018 2:43 PM PDTBrief APS Note: Ms. Allred reports her pain is reasonably with oral pain medications, although she felt the epidural was providing superior analgesia. The epidural has been off since 10:00 AM. After c hecking for appropriate timing since last anticoagulation dose and platelets, I removed the epidural, tip intact, at 14:43. The epidural had migrated out of the space and therefore was indicated for removal Please hold prophylactic enoxaparin for 4 hours post-catheter removal. APS will sign off, please page [phone] if there are questions or concerns. APS happy to repla ce epidural in future if primary team and patient think it is needed. Kiya Santos MD Pager [phone] Department of Anesthesiology and Perioperative Medicine Chronic [...] PEG tube and stric t NPO. Plan (wsll-zz-tbmywtgl issues): - Aspiration pneumonitis: strict NPO, aggressive [...] Stacy Quevedo MD Cardiothoracic Surgery Fellow Pager: [phone] Meagan DickersonniCARMELO shaw - 12/09/2018 9:44 AM PDTFormatting of this note may be different from the original. 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 24 Hour events - [...] dysphagia. - Strict NPO, consider re consulting ENTRY LEVEL MANUFACTURING ENGINEER today pending course and ENT recs - [...] 12/07 - Strict NPO - ENT performed ICE CARVER scope with evidence of left vocal cord [...] Manoj Kumar MD Admitting Provider Cardiothoracic Surgery 28503 Quality section FAST HUG Feeding: Tube Feeds [...] the recent imaging availabl e. CARMELO Riggins [facility] DEPARTMENT: ANE ICU CARDIAC Place of Service:- Inpatient CSN: [id number] Suggested Modifier: None Suggested CPT: TO SPECIALTY SALES REPRESENTATIVE Author:CARMELO Riggins [address] [address]GyoManda Hamm MD - 12/09/2018 8:35 AM PDTFormatting [...] Hamm MD Anesthesiology PGY1 APS Team Pager [phone] Associated attestation - Kiya Cedillo MD,PhD - 12/09/2018 4:57 PM PDTI saw and evaluated patient Ms. Sussy Allred with Resident: Dr. Hamm. I reviewed all details o f Ms. Sussy Allred s epidural block management. I have reviewed the resident s note and I agree with the plan of care as documented. I do not have additional comments. Kiya Santos MD,PhDOwDennis gaitan PA-Frances - 12/08/2018 6:40 PM PDTFormatting of this no te may be different from the original. 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 Given her likely long-term [...] Service: 12/08/2018 DEBBIE Lay PA-C Gabriel Owens, [facility] PA - 12/08/2018 5:31 PM PDTFormatting of this note may be different from the original. 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 Given her likely long-term [...] 12/07 - Strict NPO - ENT performed ICE CARVER scope with evidence of left vocal cord [...] Manoj Kumar MD Admitting Provider Cardiothoracic Surgery 39343 Jama Zhao MD ICU PM Attending Anesthesiology 96124 Quality section FAST HUG Feeding: Tube Feeds: [...] e. Date of Service: 12/08/2018 MALLIKA STONER [facility] DEPARTMENT: ANE ICU CARDIAC Place of Service:- Inpatient CSN: [id number] Suggested Modifier: None Suggested CPT: TO SPECIALTY SALES REPRESENTATIVE Author:MALLIKA STONER [address] [address]MsoakhdyDennis Myrick MD - 12/08/2018 10:12 AM PDTFormatting of this no te may be different from the original. 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 Given her likely long-term [...] No Chronic pain Yes Service Cardiac Surgery [7308] Admitting provider and ICU treatment team members Provider Role Specialty Pager Manoj Kumar MD Admitting Provider Cardiothoracic Surgery 50858 Jama Zhao MD ICU PM Attending Anesthesiology 04434 Code Status Code Status Full Code Quality section I have spent a total of 38 minutes in the direct care and management of this patient indepe ndent of any time spent teaching or performing any separately billable procedures. I reviewe d the documented findings, all data and the recent imaging available. Seen with PA/ICE CARVER myah . Please see their note for details. I reviewed the documented findings, all data and the re cent imaging available. Dennis Myrick MD Author:Dennis Myrick MD [address] [address]VznnepisOziel Read MD - 12/08/2018 8:43 AM PDTFormatting [...] 12/08/2018 12:09 PM PDTI saw and evaluated pa kyaw Allred with trainee: Dr. Read . I have reviewed the trainee's note and I agree with the plan of care as documented. Louie Moura MD Adult Acute Pain Service [facility] Pager#: [phone] Email: [email or web address] Alcocer MD - 12/08/2018 8:25 AM PDTFormatting of [...] post-procedure ye day, which is reassuring. Plan (tdgu-qr-yrbskowf issues): - Aspiration pneumonitis: strict NPO, aggressive [...] - Discuss with MD Coreen Farley MD [facility] General Surgery Pager #[phone] Dennis Allred PA-C - 12/08/2018 5:02 AM PDTFormatting of this note may be d ifferent from the original. 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 Given her likely long-term [...] General Surgery, PGY-3 EGS consult resident pager: [phone] Jama Zhao MD - 12/07/2018 7:30 PM PDTFormatting of this note may be different f rom the original. 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 Given her likely long-term [...] No Chronic pain Yes Service Cardiac Surgery [0988] Admitting provider and ICU treatment team members Provider Role Specialty Pager Manoj Kumar MD Admitting Provider Cardiothoracic Surgery 84994 Jama Zhao MD ICU PM Attending Anesthesiology 59217 Code Status Code Status Full Code This [...] and the recent imaging available. Seen with PA/CARLO Allred. Please see their note for details. I reviewed the documented findings, all data and the rec ent imaging available. Date of Service: 12/07/2018 [facility] DEPARTMENT: ANE ICU CARDIAC Place of Service:- Inpatient CSN: [id number] Suggested Modifier: None Suggested CPT: TO SPECIALTY SALES REPRESENTATIVE Author:Jama Zhao MD [address] [address]Hlp, Louie Daniels MD - 12/07/2018 1:26 PM [...] in bed. Ms. Allred is satisfied with [facility] level of pain. 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 Given her likely long-term need fo r tube feeding given her dysphagia, EGS consulted and plans for PEG. Patient's ICU course co mplicated by hypertension (required phenylephrine now weaned off) and high volume aspiration event with hypoxia requiring HFNC 20L. Remains hemodynamically stable. 24 Hour events - Strict NPO with concern for high volume aspiration, ENTRY LEVEL MANUFACTURING ENGINEER signed off for now - Overnight worsening [...] event - Strict NPO - ENT performed ICE CARVER scope with evidence of left vocal cord [...] Manoj Kumar MD Admitting Provider Cardiothoracic Surgery 14668 Jama Zhao MD ICU PM Attending Anesthesiology 51902 Quality section FAST HUG Feeding: NPO Analgesia: Epidural (HM-bupiv), rectal tylenol, lido patches Sedation: None Thromboprophylaxis: Lovenox Head of Bed: Head of Bed >30 degrees Ulcer Prophylaxis: Famotidine Glycemic Control: insulin sliding Created by Sonya Barron MD Author:Sonya Barron MD [address] [address] [place] [address]XrwlqtkjDennis Myrick MD - 12/07/2018 10:19 AM PDTFormatting of this no te may be different from the original. Cardiovascular Intensive Care Unit Attending Progress Note CVICU D2 Assigned #[id number] ICU Admission Reason Most Recent Value ICU [...] Manoj Kumar MD Admitting Provider Cardiothoracic Surgery 81402 Jama Zhao MD ICU PM Attending Anesthesiology 00507 Code Status Code Status Full Code I [...] ICU CARDIAC Place of Service:- Inpatient CSN: [id number] Suggested Modifier: GC - Resident Involved Suggested CPT: TO SPECIALTY SALES REPRESENTATIVE Dennis Myrick MD Author:Dennis Myrick MD [address] [address]Hrhcyur, Concha Rahman MD - 12/07/2018 9:49 AM PDTFormatting of this n ote may be different from the original. Thoracic Surgery Brief Inpatient Progress Note Patient name: SUSSY ALLRED Attending: Manoj Kumar MD Procedure day: 3 Procedure: Left thoracotomy, CODY lobectomy with bronchial and PA reconstruction 24 hour events: - made strict NPO yesterday with concern for aspiration, ENTRY LEVEL MANUFACTURING ENGINEER signed off for now - overnight worsening [...] he risk of prolonged intubation post-anesthesia. Plan (oezx-nr-unppmnhj issues): - Aspiration pneumonitis: strict NPO, aggressive [...] and discussed with Dr. Chaya Kim MD [facility] General Surgery Pager #[phone] DavisrozGayle - 12/07/2018 9:21 AM PDTTransthoracic echocardiogram complete d. Final report to follow.Dennis Allred PA-C - 12/07/2018 5:34 AM PDTFormatting of this note may be different from the original. Cardiovascular Intensive Care Unit Clinical Update Note Team: D2 Team Pager: [phone] Attending: Cece Pt Name: Sussy Allred ID: [...] availabl e. Date of Service: 12/07/2018 DEBBIE Lay, DEBBIE Khan Alexandra L, MD,MPH - 12/07/2018 12:09 AM [...] General Surgery, PGY-3 EGS consult resident pager: [phone] Associated attestation - Derrick Handley MD - 12/08/2018 10:17 AM PDTATTENDING ADDENDUM I saw and examined Sussy Allred with the residents on 12/07 and agree with the assessmen t and plan as outlined in this note and participated in the planning of care. Derrick Handley MD FACS manager erp Division of Trauma, Critical Care, and Acute Care Surgery [phone] Dennis Myrick MD - 12/06/2018 11:01 AM PDTFormatting of this note may be different fro m the original. Cardiovascular Intensive Care Unit Attending Progress Note CVICU D2 Assigned #[id number] ICU Admission Reason Most Recent Value ICU [...] is comfortable - pt will need likely senior living enteral access. Has requested surgical feeding tube [...] Manoj Kumar MD Admitting Provider Cardiothoracic Surgery [address] [place] necessity reviewed: Plan to DC today I [...] ICU CARDIAC Place of Service:- Inpatient CSN: [id number] Suggested Modifier: GC - Resident Involved Suggested CPT: TO SPECIALTY SALES REPRESENTATIVE Dennis Myrick MD Author:[place] [address]ASilvana ewing MD - 12/06/2018 9:21 AM PDTThoracic surgery [...] Stacy Quevedo MD Cardiothoracic Surgery Fellow Pager: [phone] Sonya Barron MD - 12/06/2018 7:50 AM PDTFormatting of this note may be different from t varsha original. Cardiovascular Intensive Care Unit Team Progress Note CVICU D2 Assigned #[id number] ICU Admission Reason Most Recent Value ICU Admission reason post-op management filed at 12/04/2018 1534 Documentation Date Row Name 12/04/18 1537 Day of Procedure 12/04/18 Thoracic Thoracic Thoracic [...] DHT vs eventual Gtube - ENT performed ICE CARVER scope with evidence of left vocal cord [...] Manoj Kumar MD Admitting Provider Cardiothoracic Surgery 27049 Quality section A-Line necessity reviewed: Plan to DC today Doty necessity reviewed: Plan to DC today FAST HUG Feeding: NPO Analgesia: epidural, Tylenol, lidocaine patches Sedation: None Thromboprophylaxis: Lovenox Head of Bed: Head of Bed >30 degrees Ulcer Prophylaxis: Famotidine Glycemic Control: insulin sliding Created by Sonya Barron MD Author:Sonya Barron MD [address] [address] [place] [address]Gkctjx, Robin Alvarado MD - 12/06/2018 7:02 AM PDTFormatting of [...] revealed minimally mobile LEFT true vocal cord. ENTRY LEVEL MANUFACTURING ENGINEER evaluation with concern for ri sk of [...] Flores MD Anesthesiology/CCM Fellow APS Team Pager [phone] Associated attestation - Louie Moura MD - 12/07/2018 2:59 PM PDTI saw and evaluated mallika Allred with trainee: Dr. Flores . I have reviewed the trainee's note and I agree with the plan of care as documented. Louie Moura MD Adult Acute Pain Service [facility] Pager#: [phone] Email: [email or web address] PA-C - 12/05/2018 9:06 PM PDTFormatting of this note raymundo y be different from the original. Cardiovascular Intensive Care Unit Clinical Update Note Team: D2 Team Pager: [phone] Attending: Layla Pt Name: Sussy Allred ID: Abbreviated HPI Update: 1. Hypotension a. Impoved 12/05/2018 after 2L crystalloid b. UO improved with IVF 2. Recurret Laryngeal nerve a. ENT Eval complete b. Pending re eval by ENTRY LEVEL MANUFACTURING ENGINEER for swallow this sim S: Pain, drowsy [...] Unit Team Progress Note CVICU D2 Assigned #[id number] ICU Admission Reason Most Recent Value ICU Admission reason post-op management filed at 12/04/2018 1513 Documentation Date Row Name 12/04/18 1534 Day [...] levothyroxine 50mcg PO DAILY after clear by ENTRY LEVEL MANUFACTURING ENGINEER Cardiovascular HTN (hypertension) Unknown Current Assessment & [...] - restart PO PPI when clear by ENTRY LEVEL MANUFACTURING ENGINEER At risk for Dysphagia Unknown Current Assessment [...] Manoj Kumar MD Admitting Provider Cardiothoracic Surgery 54525 Quality section A-Line necessity reviewed: Bpkj-mx-bbpf blood pressure monitoring Doty necessity reviewed: Hourly/Accurate measurement of urinary output for clinical manage ment of critically ill patients FAST HUG Feeding: NPO Analgesia: Tylenol, epidural (bupiv-fent) Sedation: None Thromboprophylaxis: SCDs Head of Bed: Head of Bed >30 degrees Ulcer Prophylaxis: Famotidine Glycemic Control: insulin sliding Created by Sonya Barron MD Author:Sonya Barron MD [address] [address]Cryolxt, Sara, CF-ENTRY LEVEL MANUFACTURING ENGINEER - 12/05/2018 10:00 AM PDTENT SPEECH PATHOLOGY- [...] HISTORY: she is single and lives in [place], [place] DIETARY STATUS: Current diet: The patient [...] afternoon when less lethargic/sedate. Ava Allred M.S., CF-ENTRY LEVEL MANUFACTURING ENGINEER Speech-Language Pathology Fellow [facility] [phone] Pager: [phone] Dennis yMrick MD - 12/05/2018 8:57 AM PDTFormatting of this note may be different fro m the original. Cardiovascular Intensive Care Unit Attending Progress Note CVICU D2 Assigned #[id number] ICU Admission Reason Most Recent Value ICU [...] Manoj Kumar MD Admitting Provider Cardiothoracic Surgery 09228 Code Status Code Status Full Code Quality section A-Line necessity reviewed: Qglg-db-gzei blood pressure monitoring Doty necessity reviewed: Acute [...] ICU CARDIAC Place of Service:- Inpatient CSN: [id number] Suggested Modifier: GC - Resident Involved Suggested CPT: TO SPECIALTY SALES REPRESENTATIVE Dennis Myrick MD Author:Dennis Myrick MD [address]DuRobin townsend MD - 12/05/2018 8:08 AM PDTFormatting of zenon patterson note may be different from the [...] (ADC) 0.1-2 mcg/kg/min intravenous CONTINUOUS 1 mcg/kg/min (12/05/18737) SUFentanil 2 mcg/mL in NaCl 0.9 % [...] team provider CVICU Team. Robin Flores MD Anesthesiology/[facility] Fellow APS Team Pager [phone] Associated attestation - Kiya Cedillo MD,PhD - [...] Stacy Quevedo MD Cardiothoracic Surgery Fellow Pager: [phone] Dennis Allred PA-C - 12/05/2018 3:00 AM PDTFormatting of this note may be different from the original. Cardiovascular Intensive Care Unit Clinical Update Note Team: D2 Team Pager: [phone] Attending: Layla Pt Name: Sussy Allred ID: [...] - restart PO PPI when clear by ENTRY LEVEL MANUFACTURING ENGINEER Hypothyroidism 12/04/2018 Assessment & Plan Note: - restart home levothyroxine 50mcg PO DAILY after clear by ENTRY LEVEL MANUFACTURING ENGINEER Acute post-operative pain 12/04/2018 Assessment & Plan [...] 1:38 AM 12/05/2018 1. HYPOTension: Left radial [place] not functioning a. Cont Hypotension after Thoracic [...] LEVEL/LATERALITY: bilateral ATTENDING PHYSICIAN: Hellen Herman MD COMPLIANCE REVIEWER: Jamey Flores MD, Manda Hamm MD ANESTHESIA: [...] procedure. MD Jamey Boss M.D. Assisted our manufacturing engineering intern. I saw and evaluated patient Ms. Sussy Allred with Resident: Dr. Hamm and Dr. Flores. Pili r eviewed all details of Ms. Sussy [...] | 2019 | Visit | | [address] [facility] | | | | | | [facility] | | | | | | [place], [place] | | | | | | [address] | | | | | | [phone] | | | | | | | [...] + +--------+ + + + | TO SPECIALTY SALES REPRESENTATIVE | Routin | 12/05/2018 | | Results [...] | | | MEDIASTINOSCOPY, | ve | 7:30 AM | | | | POSSIBLE | Surgic | PDT | | | | THORACOSCOPY | al | | | | + +--------+ + + + | ENDOBRONCHIAL | Electi | 12/04/2018 | Neoplasm | | | ULTRASOUND | ve | 7:30 AM | | | | | Surgic [...] + + + + | [facility] | [address] [facility] [address] | [place], [place] | | | IESHA CATAWISSA OF [facility] | [address] | [address] | | | TESTS | | | [...] | | | presented. Final signature: Jadyn Mcaadms MD 12/14/2018 10:06 | | | AM [...] PM Preliminary: Jennifer Haider MD Dictation initiated: Bhavik Maldonado | 12/13/2018 5:25 PM | | | [...] [facility] | | | | | IESHA POINT OF | | | | | CARE TESTS | + +---------+ + + + + + + + | Performing | Address | City/State/Zipcode | Phone Number | | Organization | | | | + + + + + | [facility] | [address] [facility] [address] | [place], [place] | | | IESHA CATAWISSA OF [facility] | [address] | [address] | | | TESTS | | | | + + + + + X-RAY PORTABLE CHEST 1 VIEW (12/13/2018 8:24 AM) + + + | Narrative | Performed At | + + + | EXAM: AL CHEST 1 VIEW HISTORY: eval interval change. [...] Interface - 12/13/2018 9:47 AM PDT EXAM: AL CHEST 1 | | VIEW HISTORY: eval [...] | [facility] | [address] | [place], [place] | | | IESHA POINT OF CARE | [address] | [address] | | | TESTS | | | [...] | [facility] | [address] | [place], [place] | | | MARISSA JAIMES OF [facility] | [facility] | [address] | | | TESTS | | | [...] | MD Sae Cardiothoracic Surgery Fellow Pager: [phone] | | + + + CAPILLARY BLOOD [...] | [facility] | [address] | [place], [place] | | | MARISSA JAIMES OF CARE | [address] | [address] | | | TESTS | | | [...] + + + | [facility] | [address] | [place], [place] | | | IESHA POINT OF CARE | [address] | [address] | | | TESTS | | | [...] | [facility] | [address] | [place], [place] | | | IESHA POINT OF CARE | [address] | [address] | | | TESTS | | | [...] [facility] | [address] | [place], [place] | | | IESHA POINT OF CARE | [address] | [address] | | | TESTS | | | [...] [facility] | [address] | [place], [place] | | | MARISSA JAIMES OF CARE | [facility] | [address] | | | TESTS | | | [...] + | [facility] | [address] | [place], [place] | | | MARISSA JAIMES [facility] | [address] | [address] | | | TESTS | | | [...] | 3.50 - 10.80 K/cu mm | [facility] | | | | | SERVICES, CORE | + + + + + | RED CELL COUNT | 2.64 (L) | 4.00 - 5.20 M/cu mm | [facility] | | | | | SERVICES, [...] | + + + + + | [facility] | [address] | [place] [address] | | | SERVICES, CORE | [address] | | | + + + + + MAGNESIUM, PLASMA (12/11/2018 5:01 AM) + +-------+ + + | Component | Value | Ref Range | Performed At | + +-------+ + + | MAGNESIUM,PLASMA | 2.3 | 1.6 - 2.6 mg/dL | [facility] | | | | | SERVICES, CORE | + +-------+ + + + + | Specimen | + + | Blood - Blood | + + + + + + + | Performing | Address | City/State/Zipcode | Phone Number | | Organization | | | | + + + + + | [facility] | [address] | [place] [address] | | | SERVICES, CORE | [address] [...] LABORATORY | | (LAB) | | | SADE CORE | + [...] >60 mL/min | [facility] | | ICELANDIC | | | SERVICES, CORE | + + + + + | EGFR NON | >60 | >60 mL/min | [facility] | | -ICELANDIC | | | SERVICES, CORE | + [...] the MDRD equation recommended by the | [facility] | | National Kidney Disease Education Program. [...] | + + + + + | [facility] | [address] | [place] [address] | | | SERVICES, KOKI | [address] [...] + + + + + | [facility] | [address] | [place], [place] | | | IESHA POINT OF CARE | [address] | [address] | | | TESTS | | | [...] | [facility] | [address] | [place], [place] | | | MARISSA JAIMES OF CARE | [address] | [address] | | | TESTS | | | [...] + + + | [facility] | [address] | [place], [place] | | | MARISSA JAIMES OF CHE | [address] | [address] | | | TESTS | | | [...] (H) | 80.0 - 100.0 fL | [facility] | | | | | SERVICES, CORE | + + + + + | MCHC | 31.8 (L) | 32.0 - 36.0 g/dL | [facility] | | | | | SERVICES, CORE | + + + + + | RDW SD | 47.3 (H) | 35.1 - 46.3 fL | [facility] | | | | | SERVICES, CORE | + + + + + | PLATELET COUNT | 341 | 150 - 400 K/cu mm | [facility] | | | | | SERVICES, CORE | + + + + + | MPV | 8.9 (L) | 9.7 - 12.3 fL | [facility] | | | | | SERVICES, CORE | + + + + + | NRBC% | 0.0 | 0.0 - 0.3 % | [facility] | | | | | SADE, KOKI | + + + + + | [...] [facility] | [address] | [place] [address] | | | KOKI STUART | [address] | | | + + + + + MAGNESIUM, PLASMA (12/10/2018 6:13 AM) + +-------+ + + | Component | Value | Ref Range | Performed At | + +-------+ + + | MAGNESIUM,PLASMA | 2.4 | 1.6 - 2.6 mg/dL | [facility] | | | | | SERVICES, CORE | + +-------+ + + + + | Specimen | + + | Blood - Blood | + + + + + + + | Performing | Address | City/State/Zipcode | Phone Number | | Organization | | | | + + + + + | [facility] | [address] [facility] | [place] [address] | | | SERVICES, CORE | [address] | | | + + + + + RENAL FUNCTION SET (NA,K,CL,CO2,BUN,CREAT,GLUC,CA,PHOS,ALB ) (12/10/2018 6:13 AM) + + + + + | Component | Value | Ref Range | Performed At | + + + + + | GLUCOSE, PLASMA | 135 (H) | 70 - 99 mg/dL | [facility] | | (LAB) | | | [...] >60 mL/min | [facility] | | ICELANDIC | | | [facility] | + + + + + | EGFR NON | >60 | >60 mL/min | [facility] | | -ICELANDIC | | | SERVICES, [facility] | + + + + + | SODIUM, PLASMA (LAB) | 139 | 136 - 145 mmol/L | [facility] | | | | | SERVICES, [facility] | + + + [...] [facility] | | | | | [facility], [facility] | + + + + + | ANION GAP | 5 | 4 - 11 mmol/L | [facility] | | | | | SERVICES, CORE | + + + + + | ANION GAP(ALB | 10 | 4 - 11 mmol/L | [facility] | | CORRECTED) | | | [facility], CORE | + + + + [...] | + + + + + | [facility] | [address] | [place] [address] | | | SERVICES, CORE | [address] [...] 2.1 | 1.6 - 2.6 mg/dL | [facility] | | | | | SERVICES, CORE | + +-------+ + + + + | Specimen | + + | Blood - Blood | + + + + + + + | Performing | Address | City/State/Zipcode | Phone Number | | Organization | | | | + + + + + | [facility] | [address] | [place] [address] | | | SERVICES, KOKI | [address] | | | + + + + + RENAL FUNCTION SET (NA,K,CL,CO2,BUN,CREAT,GLUC,CA,PHOS,ALB ) (12/09/2018 12:17 PM) + + + + + | Component | Value | Ref Range | Performed At | + + + + + | GLUCOSE, PLASMA | 92 | 70 - 99 mg/dL | [facility] | | (LAB) | | | KOKI STUART | + + + + + | BUN, PLASMA (LAB) | 8 | 6 - 20 mg/dL | [facility] | | | | | SERVICES, CORE | + + + + + | CREATININE PLASMA | 0.47 (L) | 0.60 - 1.10 mg/dL | [facility] | | (LAB) | | | SERVICES, CORE | + + + + + | EGFR - | >60 | >60 mL/min | [facility] | | ICELANDIC | | | SERVICES, CORE | + + + + + | EGFR NON | >60 | >60 mL/min | [facility] | | -ICELANDIC | | | [facility], CORE | + + + + + | SODIUM, PLASMA (LAB) | 143 | 136 - 145 mmol/L | [facility] [...] | CORRECTED) | | | SERVICES, [facility] | + + + [...] | + + + + + | [facility] | [address] | [place] [address] | | | SERVICES, CORE | [address] [...] 46.3 | 35.1 - 46.3 fL | [facility] | | | | | SERVICES, [...] | 0.00 - 0.02 K/cu mm | [facility] | | | | [...] [facility] | [address] | [place] [address] | | | SERVICES, CORE | [address] | | | + + + + + MAGNESIUM, PLASMA (12/09/2018 6:35 AM) + +-------+ + + | Component | Value | Ref Range | Performed At | + +-------+ + + | MAGNESIUM,PLASMA | 2.4 | 1.6 - 2.6 mg/dL | [facility] | | | | [...] potassium repletion if potassium < 3. | SERVICESKOKI | + + + + + + + + | Performing | Address | City/State/Zipcode | Phone Number | | Organization | | | | + + + + + | [facility] | [address] | [place] [address] | | | KOKI STUART | [address] [...] | + + + + + | [facility] | [address] | [place] [address] | | | KOKI STUART | [address] | | | + + + + + X-RAY PORTABLE CHEST 1 VIEW (12/09/2018 5:41 AM) + + + | Narrative | Performed At | + + + | EXAM: AL CHEST 1 VIEW HISTORY: Shortness of breath. [...] Interface - 12/09/2018 7:45 AM PDT EXAM: AL CHEST 1 | | VIEW HISTORY: Shortness [...] 1.8 | 1.6 - 2.6 mg/dL | [facility] | | | | | SERVICES, CORE | + +-------+ + + + + | Specimen | + + | Blood - Blood | + + + + + + + | Performing | Address | City/State/Zipcode | Phone Number | | Organization | | | | + + + + + | [facility] | [address] | [place] [address] | | | SERVICES, CORE | [address] [...] >60 mL/min | [facility] | | ICELANDIC | | | SERVICES, CORE | + + + + + | EGFR NON | >60 | >60 mL/min | [facility] | | -ICELANDIC | | | SERVICES, CORE | + [...] | + + + + + | [facility] | [address] [facility] | [place] [address] | | | SERVICES, CORE | [address] [...] [facility] | | | | | IESHA POINT OF | | | | | CARE TESTS | + +---------+ + + + + + + + | Performing | Address | City/State/Zipcode | Phone Number | | Organization | | | | + + + + + | [facility] | [address] | [place], [place] | | | MARISSA JAIMES OF [facility] | [address] | [address] | | | TESTS | | | | + + + + + MAGNESIUM, PLASMA (12/08/2018 12:56 PM) + +-------+ + + | Component | Value | Ref Range | Performed At | + +-------+ + + | MAGNESIUM,PLASMA | 2.2 | 1.6 - 2.6 mg/dL | [facility] | | | | | SERVICES, CORE | + +-------+ + + + + | Specimen | + + | Blood - Blood | + + + + + + + | Performing | Address | City/State/Zipcode | Phone Number | | Organization | | | | + + + + + | [facility] | [address] | [place] [address] | | | KOKI STUART | [address] [...] >60 mL/min | [facility] | | ICELANDIC | | | SERVICES, CORE | + + + + + | EGFR NON | >60 | >60 mL/min | [facility] | | -ICELANDIC | | | SERVICES, CORE | + [...] | (LAB) | | | SERVICES, [facility] | + + + [...] | CORRECTED) | | | SERVICES, [facility] | + + + [...] [facility] | | | | | [facility] | + + + + + | ANION GAP | 4 | 4 - 11 mmol/L | [facility] | | | | | SERVICES, [facility] | + + + + + | ANION GAP(ALB | 7 | 4 - 11 mmol/L | [facility] | | CORRECTED) | | | SERVICES, CORE | + + + + + + + | Specimen | + + | Blood - Blood | + + + + + | Narrative | Performed At | + + + | GFR is estimated using the MDRD equation recommended by the | [facility] | | National Kidney Disease [...] | + + + + + | [facility] | [address] [facility] | [place] [address] | | | SERVICES, CORE | [address] [...] >60 mL/min | [facility] | | ICELANDIC | | | SERVICES, CORE | + + + + + | EGFR NON | >60 | >60 mL/min | [facility] | | -ICELANDIC | | | SERVICES, CORE | + [...] the MDRD equation recommended by the | [facility] | | National Kidney Disease [...] | + + + + + | [facility] | [address] | [place] [address] | | | KOKI STUART | [address] | | | + + + + + X-RAY PORTABLE CHEST 1 VIEW (12/08/2018 4:58 AM) + + + | Narrative | Performed At | + + + | EXAM: AL CHEST 1 VIEW HISTORY: SoB COMPARISON: Chest [...] Preliminary: Charli Maddox MD Dictation initiated: Charli Daniels | | | MD Varsha 12/08/2018 10:55 AM | | + + + + + | Procedure Note | + + | 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, Radiant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 - 12/08/2018 10:59 AM PDT EXAM: AL CHEST 1 | | VIEW HISTORY: SoB [...] 2.0 | 1.6 - 2.6 mg/dL | [facility] | | | | | SERVICES, CORE | + +-------+ + + + + | Specimen | + + | Blood - Blood | + + + + + + + | Performing | Address | City/State/Zipcode | Phone Number | | Organization | | | | + + + + + | [facility] | [address] [facility] | [place] [address] | | | SERVICES, CORE | [address] [...] >60 mL/min | [facility] | | ICELANDIC | | | SADE, CORE | + + + + + | EGFR NON | >60 | >60 mL/min | [facility] | | -ICELANDIC | | | SADE, CORE | + [...] | | | | | SERVICES, [facility] | + + + + + | ANION GAP | 5 | 4 - 11 mmol/L | [facility] | | | | | SERVICES, CORE | + + + + + | ANION GAP(ALB | 9 | 4 - 11 mmol/L | [facility] | | CORRECTED) | | | SERVICES, CORE | + + + + + + + | Specimen | + + | Blood - Blood | + + + + + | Narrative | Performed At | + + + | GFR is estimated using the MDRD equation recommended by the | [facility] | | National Kidney Disease Education Program. Estimated GFR | LABORATORY | | Interpretive Information: <60 mL/min/1.73 sq | [facility], CORE | | m Chronic Kidney [...] | + + + + + | [facility] | [address] [facility] | [place] [address] | | | SERVICES, KOKI | [address] [...] 46.2 | 35.1 - 46.3 fL | [facility] | | | | | SERVICES, [...] | 0.00 - 0.02 K/cu mm | [facility] | | | | | SERVICES, CORE | + + + + + + + | Specimen | + + | Blood - Blood | + + + + + + + | Performing | Address | City/State/Zipcode | Phone Number | | Organization | | | | + + + + + | [facility] | [address] | [place] [address] | | | [facility], [facility] | [address] | | | + + + + + PEG (PERCUTANEOUS ENDOSCOPIC GASTROSTOMY) (12/07/2018 3:41 PM) + + + | Narrative | Performed At | + + + | Derrick Handley MD 12/15/2018 5:05 PM Procedure | | | Note: Percutaneous Endoscopic Gastrostomy (PEG) DATE OF | | | PROCEDURE 12/07/2018 Staff: DERRICK HANDLEY MD Resident: | | | Dereck Rodriguez MD, [...] operation. | | | Dereck Rodriguez MD [facility] 12K [address] [facility] | | | [place] [id number] | | + + + PROCEDURE NOTE [...] attempt. Midline | | | lot number [id number]; there was excellent blood return. The | [...] EJECTION FRACTION | 57.5 | % | [facility] | | RANGE MEAN VALUE | | | CARDIOLOGY | + + + + + + + + | Narrative | Performed At | + + + | [facility] | [facility] | | [facility] Adult Echocardiography | CARDIOLOGY | | Laboratory [address] [place] [address], | | | [place] [address] Pt Name: | | | SUSSY ALLRED Study Date/Time 12/07/2018 / 8:45:36 | | | AMMRN: [id number] Most recent | | | prior: 11/26/2018Acc #: [id number] No. | | | previous echos: 1DOB: 1950 68 years Heart | | | Rate: 88 bpmHeight: 64.0 in | | | Blood Pressure: 104/64 mm/HgWeight: 145.0 | | | lb Gender: | | | FBSA: 1.71 m | | | Order ID: [id number] | | | [facility] Gayle Michael RCSSonographer | | | 2:Referring Provider: Dennis AllredModalities Performed: 2D, Color | | | flow, [...] Report | | | electronically signed by: [id number] Kathleen Sam MD (12/07/2018, | | | 4:42:18 PM) Final | | + + + + + | Procedure Note | + + | Interface, Cardiology Results - 12/07/2018 4:42 PM [facility] | | [facility] Echocardi[facility] Laboratory [address] [place] [address] | | [place], [place] [address] Pt Name: SUSSY REEVES | | WINNIE Study Date/Time 12/07/2018 / 8:45:36 AMMRN: [id number] Most | | recent prior: 11/26/2018Acc #: [id number] No. previous echos: 1DOB: | | 1950 68 years Heart Rate: 88 bpmHeight: 64.0 in Blood | | Pressure: 104/64 mm/HgWeight: 145.0 lb Gender: FBSA: | | 1.71 m | | Order ID: [id number] [facility] Chambers | | [facility] 2:Referring Provider: Dennis Tayloralities Performed: 2D, | | Color flow, Spectral [...] and indexed values Report electronically signed by: [id number] | | Kathleen Sam MD (12/07/2018, 4:42:18 [...] | | | |Report electronically signed by: [id number] Kathleen Sam MD (12/07/2018, 4:42:18 PM) | | | | | | | | Final | + + + + + + + | Performing | Address | City/State/Zipcode | Phone Number | | Organization | | | | + + + + + | [facility] | [address] | [place], [place] | | | CARDIOLOGY | [address] | [address] | | + + + + + X-RAY PORTABLE CHEST 1 VIEW (12/07/2018 5:56 AM) + + + | Narrative | Performed At | + + + | EXAM: AL CHEST 1 VIEW HISTORY: SoB COMPARISON: Chest [...] Interface - 12/07/2018 12:19 PM PDT EXAM: AL CHEST 1 | | VIEW HISTORY: SoB [...] 2.3 | 1.6 - 2.6 mg/dL | [facility] | | | | | SERVICES, CORE | + +-------+ + + + + | Specimen | + + | Blood - Blood | + + + + + + + | Performing | Address | City/State/Zipcode | Phone Number | | Organization | | | | + + + + + | [facility] | [address] | [place] [address] | | | SERVICES, KOKI | [address] | | | + + + + + CBC (HEMOGRAM) ONLY (12/07/2018 2:20 AM) + + + + + | Component | Value | Ref Range | Performed At | + + + + + | WHITE CELL COUNT | 13.40 (H) | 3.50 - 10.80 K/cu mm | [facility] | | | | | SERVICES, CORE | + + + + + | RED CELL COUNT | 2.52 (L) | 4.00 - 5.20 M/cu mm | [facility] | | | | | SERVICES, [...] (L) | 9.7 - 12.3 fL | [facility] | | | | | SERVICES, CORE | + + + + + | NRBC% | 0.0 | 0.0 - 0.3 % | [facility] | | | | | SERVICES, CORE | + + + + + | NRBC# | 0.00 | 0.00 - 0.02 K/cu mm | [facility] | | | | | SERVICES, CORE | + + + + + + + | Specimen | + + | Blood - Blood | + + + + + + + | Performing | Address | City/State/Zipcode | Phone Number | | Organization | | | | + + + + + | [facility] | [address] [facility] | [place] [address] | | | KOKI STUART | [address] [...] >60 mL/min | [facility] | | ICELANDIC | | | SERVICES, CORE | + +---------+ + + | EGFR NON | >60 | >60 mL/min | [facility] | | -ICELANDIC | | | SERVICES, CORE | + +---------+ + + | SODIUM, PLASMA (LAB) | 139 | 136 - 145 mmol/L | [facility] | | | | | SERVICES, CORE | + +---------+ + + | POTASSIUM, PLASMA | 3.9 | 3.4 - 5.0 mmol/L | [facility] | | (LAB) | | | SERVICES, [facility] | + +---------+ + + | CHLORIDE, PLASMA | 109 (H) | 97 - 108 mmol/L | [facility] | | (LAB) | | | SERVICES, [facility] | + +---------+ + + | TOTAL CO2, PLASMA | 25 | 21 - 32 mmol/L | [facility] | | (LAB) | | | [facility] | + +---------+ + + | CALCIUM, PLASMA | 7.7 (L) | 8.6 - 10.2 mg/dL | [facility] | | (LAB) | | | [facility], [facility] | + +---------+ + + | CALCIUM(ALB | 9.2 | 8.6 - 10.2 mg/dL | [facility] | | CORRECTED) | | | SERVICES, CORE | + +---------+ + + | ALBUMIN, [...] POTASSIUM CMNT | No Hemo | | [facility] | | | | | SERVICES, CORE | + +---------+ + + | ANION GAP | 5 | 4 - 11 mmol/L | [facility] | | | | | SERVICES, CORE | + +---------+ + + | ANION GAP(ALB | 9 | 4 - 11 mmol/L | [facility] | | CORRECTED) | | | SERVICES, CORE | + +---------+ + + + + | Specimen | + + | Blood - Blood | + + + + + | Narrative | Performed At | + + + | GFR is estimated using the MDRD equation recommended by the | [facility] | | National Kidney Disease [...] | + + + + + | [facility] | [address] | [place] [address] | | | SERVICES, CORE | [address] | | | + + + + + PROCEDURE NOTE (12/06/2018 7:33 PM)CBC (HEMOGRAM) ONLY (12/06/2018 12:27 PM) + + + + + | Component | Value | Ref Range | Performed At | + + + + + | WHITE CELL COUNT | 12.39 (H) | 3.50 - 10.80 K/cu mm | [facility] | | | | | SERVICES, CORE | + + + + + | RED CELL COUNT | 2.45 (L) | 4.00 - 5.20 M/cu mm | [facility] | | | | | SERVICES, [...] (H) | 35.1 - 46.3 fL | [facility] | | | | | SERVICES, CORE | + + + + + | PLATELET COUNT | 237 | 150 - 400 K/cu mm | [facility] | | | | | SERVICES, CORE | + + + + + | MPV | 9.3 (L) | 9.7 - 12.3 fL | [facility] | | | | | SERVICES, CORE | + + + + + | NRBC% | 0.0 | 0.0 - 0.3 % | [facility] | | | | | SERVICES, [...] [facility] | [address] | [place] [address] | | | SERVICES, [place] | [address] | | | + + + + + MAGNESIUM, PLASMA (12/06/2018 6:29 AM) + +-------+ + + | Component | Value | Ref Range | Performed At | + +-------+ + + | MAGNESIUM,PLASMA | 2.1 | 1.6 - 2.6 mg/dL | [facility] | | | | | [place] | + +-------+ + + + + | Specimen | + + | Blood - Blood | + + + + + + + | Performing | Address | City/State/Zipcode | Phone Number | | Organization | | | | + + + + + | [facility] | [address] | [place] [address] | | | SERVICES, [place] | [address] | | | + + + + + BASIC METABOLIC SET (NA, K, CL, TCO2, BUN, CR, GLU, CA) (12/06/2018 6:29 AM) + +---------+ + + | Component | Value | Ref Range | Performed At | + +---------+ + + | GLUCOSE, PLASMA | 95 | 70 - 99 mg/dL | [facility] | | (LAB) | | | [...] >60 mL/min | [facility] | | [place] | | | SERVICES, CORE | + +---------+ + + | EGFR NON | >60 | >60 mL/min | [facility] | | -[facility] | | | SERVICES, CORE | + +---------+ + + | SODIUM, PLASMA (LAB) | 135 (L) | 136 - 145 mmol/L | [facility] [...] POTASSIUM CMNT | No Hemo | | [facility] | | | | | SERVICES, CORE | + +---------+ + + + + | Specimen | + + | Blood - Blood | + + + + + | Narrative | Performed At | + + + | GFR is estimated using the MDRD equation recommended by the | [facility] | | National Kidney Disease [...] | + + + + + | [facility] | [address] | [place] [address] | | | SERVICES, CORE | [address] | | | + + + + + X-RAY PORTABLE CHEST 1 VIEW (12/06/2018 6:10 AM) + + + | Narrative | Performed At | + + + | EXAM: AL CHEST 1 VIEW HISTORY: SoB COMPARISON: Yesterday [...] Interface - 12/06/2018 8:38 AM PDT EXAM: AL CHEST 1 | | VIEW HISTORY: SoB [...] 32.1 | 32.0 - 36.0 g/dL | [facility] | | | | | SERVICES, CORE | + + + + + | RDW SD | 46.1 | 35.1 - 46.3 fL | [facility] | | | | | SERVICES, CORE | + + + + + | PLATELET COUNT | 233 | 150 - 400 K/cu mm | [facility] | | | | | SERVICES, CORE | + + + + + | MPV | 8.9 (L) | 9.7 - 12.3 fL | [facility] | | | | | SERVICES, CORE | + + + + + | NRBC% | 0.0 | 0.0 - 0.3 % | [facility] | | | | | SERVICES, CORE | + + + + + | NRBC# | 0.00 | 0.00 - 0.02 K/cu mm | [facility] | | | | | SERVICES, [place] | + + + + + + + | Specimen | + + | Blood - Blood | + + + + + + + | Performing | Address | City/State/Zipcode | Phone Number | | Organization | | | | + + + + + | [facility] | [address] | [place] [address] | | | [place], [place] | [address] | | | [...] Images archived to | | | institution field observer | | + + + X-RAY PORTABLE CHEST 1 VIEW (12/05/2018 5:59 AM) + + + | Narrative | Performed At | + + + | EXAM: AL CHEST 1 VIEW HISTORY: post left thoracotomy, [...] Interface - 12/05/2018 9:53 AM PDT EXAM: AL CHEST 1 | | VIEW HISTORY: post [...] | | site: Radial Catheter size: 3 welsh x 5 cm Number of | | [...] (L) | 9.7 - 12.3 fL | [facility] | | | | | SERVICES, CORE | + + + + + | NRBC% | 0.0 | 0.0 - 0.3 % | [facility] | | | | | SERVICES, CORE | + + + + + | NRBC# | 0.00 | 0.00 - 0.02 K/cu mm | [facility] | | | | [...] [facility] | [address] | [place] [address] | | | SERVICES, CORE | [address] | | | + + + + + MAGNESIUM, PLASMA (12/05/2018 1:45 AM) + +-------+ + + | Component | Value | Ref Range | Performed At | + +-------+ + + | MAGNESIUM,PLASMA | 1.8 | 1.6 - 2.6 mg/dL | [facility] | | | | | KOKI STUART | + +-------+ + + + + | Specimen | + + | Blood - Blood | + + + + + + + | Performing | Address | City/State/Zipcode | Phone Number | | Organization | | | | + + + + + | [facility] | [address] | [place] [address] | | | KOKI STUART | [address] [...] >60 mL/min | [facility] | | ICELANDIC | | | SERVICES, CORE | + +---------+ + + | EGFR NON | 59 (L) | >60 mL/min | [facility] | | -ICELANDIC | | | SERVICES, CORE | + [...] CORE | + +---------+ + + | ALBUMIN, PLASMA | 2.8 (L) | 3.5 - 4.7 g/dL | [facility] | | (LAB) | | | SERVICES, CORE | + +---------+ + + | PHOSPHORUS, PLASMA | 3.4 | 2.4 - 4.7 mg/dL | [facility] | | (LAB) | | | [facility] | + +---------+ + + | POTASSIUM CMNT | No Hemo | | [facility] | | | | | SERVICES, [facility] | + +---------+ + + | ANION GAP | 8 | 4 - 11 mmol/L | [facility] | | | | | SERVICES, [facility] | + +---------+ + + | ANION GAP(ALB | 11 | 4 - 11 mmol/L | [facility] | | CORRECTED) | | | SERVICES, CORE | + +---------+ + + + + | Specimen | + + | Blood - Blood | + + + + + | Narrative | Performed At | + + + | GFR is estimated using the MDRD equation recommended by the | [facility] | | National Kidney Disease [...] + + + + + | [facility] | [address] | [place] [address] | | | SERVICES, CORE | [address] | | | + + + + + X-RAY PORTABLE CHEST 1 VIEW (12/04/2018 6:32 PM) + + + | Narrative | Performed At | + + + | EXAM: AL CHEST 1 VIEW HISTORY: Status post left [...] Interface - 12/05/2018 9:54 AM PDT EXAM: AL CHEST 1 | | VIEW HISTORY: Status [...] (L) | 26.0 - 36.0 seconds | [facility] | | | | [...] | Range: (75 - 120) sec | SADE, CORE | | Heparin levels of 0.35 - 0.7 U/mL | | + + + + + + + + | Performing | Address | City/State/Zipcode | Phone Number | | Organization | | | | + + + + + | [facility] | [address] | [place] [address] | | | SADE, KOKI | [address] | | | + + + + + CBC (HEMOGRAM) ONLY (12/04/2018 5:56 PM) + + + + + | Component | Value | Ref Range | Performed At | + + + + + | WHITE CELL COUNT | 13.55 (H) | 3.50 - 10.80 K/cu mm | [facility] | | | | | SERVICES, CORE | + + + + + | RED CELL COUNT | 3.22 (L) | 4.00 - 5.20 M/cu mm | [facility] | | | | | SERVICES, [...] 0.0 | 0.0 - 0.3 % | [facility] | | | | | SERVICES, [...] [facility] | [address] | [place] [address] | | | KOKI STUART | [address] | | | + + + + + BASIC METABOLIC SET (NA, K, CL, TCO2, BUN, CR, GLU, CA) (12/04/2018 5:56 PM) + +---------+ + + | Component | Value | Ref Range | Performed At | + +---------+ + + | GLUCOSE, PLASMA | 146 (H) | 70 - 99 mg/dL | [facility] | | (LAB) | | | SADE, CORE | + +---------+ + + | BUN, PLASMA (LAB) | 16 | 6 - 20 mg/dL | [facility] | | | | | SADE, CORE | + +---------+ + + | CREATININE PLASMA | 0.78 | 0.60 - 1.10 mg/dL | [facility] | | (LAB) | | | SERVICES, CORE | + +---------+ + + | EGFR - | >60 | >60 mL/min | [facility] | | ICELANDIC | | | SERVICES, CORE | + +---------+ + + | EGFR NON | >60 | >60 mL/min | [facility] | | -ICELANDIC | | | SERVICES, CORE | + [...] POTASSIUM CMNT | Sl Hemo | | [facility] | | [...] | + + + + + | [facility] | [address] | [place] [address] | | | SERVICES, CORE | [address] [...] + | [facility] | [address] | [place], [place] | | | I[facility]HA POINT OF CARE | [address] | [address] | | | TESTS | | | | + + + + + OPERATION RECORD (12/04/2018 4:05 PM) + + | Procedure Note | + + | Manoj Kumar MD - 12/04/2018 4:05 PM PDT Date of Service: 12/04/2018 Attending | | Surgeon:Manoj Kumar MD Guidance Director(s):Pritesh Chang | | Bethel Quevedo MD Preoperative [...] ribs were reapproximated using | | multiple pyxvsg-kl-[id number] #2 Vicryl sutures. Serratus closed with #1 Vicryl, | | subcutaneous tissue closed with 2-0 Vicryl, skin closed with 4-0 Vicryl. Sterile | | dressings were applied. A single 28-Tamazight chest tube was placed through the inferior [...] and 11L lymph | | nodes.Manoj Kumar, PRITESH/MODROSALIOD: 12/04/2018 15:15:41DT: 12/04/2018 16:05:12Job #: | | [id number] | + + CAPILLARY BLOOD GLUCOSE (NO CHG), POC (12/04/2018 3:55 PM) + +-------+ + + | Component | Value | Ref Range | Performed At | + +-------+ + + | BLOOD GLUCOSE, POC | 98 | 60 - 99 mg/dL | [facility] | | | | | IESHA POINT OF | | | | | CARE TESTS | + +-------+ + + + + + + + | Performing | Address | City/State/Zipcode | Phone Number | | Organization | | | | + + + + + | [facility] | [address] | [place], [place] | | | MAR[facility]SA JAIMES OF CARE | [address] | [address] | | | TESTS | | | | + + + + + ABG-FULL ABL, POC (12/04/2018 2:27 PM) + + + + + | Component | Value | Ref Range | Performed At | + + + + + | PH ARTERIAL, POC | 7.38 | 7.37 - 7.44 | [facility] | | | | | IESHA, POINT OF | | | | | CARE TESTS | + + + + + | PO2 ARTERIAL, POC | 190 (H) | 72 - 104 mmHg | [facility] | | | | | IESHA, POINT OF | | | | | CARE TESTS | + + + + + | PCO2 ARTERIAL, POC | 42 | 32 - 43 mmHg | [facility] | | | | | IESHA POINT OF | | | | | CARE TESTS | + + + + + | TOTAL HEMOGLOBIN, | 10.4 (L) | 12.0 - 16.0 g/dL | [facility] | | POC | | | IESHA POINT OF | | | | | CARE TESTS | + + + + + | O2 SAT ARTERIAL, POC | 99.7 (H) | 92.0 - 98.0 % | [facility] | | | | | IESHA [...] 1.14 - 1.32 mmol/L | [facility] | | | [...] 1.0 | 0.5 - 1.6 mmol/L | [facility] | | POC | | | IESHA, POINT OF | | | | | CARE TESTS | + + + + + | METHEMOGLOBIN, POC | 0.9 | 0.0 - 1.9 % | [facility] | | | | | IESHA, POINT OF | | | | | CARE TESTS | + + + + + | PAT TEMP ART, POC | 37.0 | | [facility] | | | | | IESHA [...] | [facility] | [address] | [place], [place] | | | MAR[facility] JA[facility]ES OF CARE | [address] | [address] | | | TESTS | | | | + + + + + ABG-FULL ABL, POC (12/04/2018 12:55 PM) + + + + + | Component | Value | Ref Range | Performed At | + + + + + | PH ARTERIAL, POC | 7.41 | 7.37 - 7.44 | [facility] | | | | | IESHA, POINT [...] 32 - 43 mmHg | [facility] | | | | | IESHA, POINT OF | | | | | CARE TESTS | + + + + + | TOTAL HEMOGLOBIN, | 10.2 (L) | 12.0 - 16.0 g/dL | [facility] | | POC | | | IESHA, [...] 94.0 - 100 % | [facility] | | | | | IESHA POINT OF | | | | | CARE TESTS | + + + + + | HEMATOCRIT, POC | 31.3 (L) | 36.0 - 46.0 % | [facility] | | | [...] 1.14 - 1.32 mmol/L | [facility] | | | | | IESHA, POINT OF | | | | | CARE TESTS | + + + + + | CHLORIDE, POC | 105 | 97 - 108 mmol/L | [facility] | | [...] 0.9 | 0.5 - 1.6 mmol/L | [facility] | | POC | | | IESHA POINT OF | | | | | CARE TESTS | + + + + + | METHEMOGLOBIN, POC | 0.8 | 0.0 - 1.9 % | [facility] | | | | | IESHA, POINT OF | | | | | CARE TESTS | + + + + + | PAT TEMP ART, POC | 37.0 | | [facility] | | | | | IESHA [...] | [facility] | [address] | [place], [place] | | | I[facility] POINT OF CARE | [address] | [address] | | | TESTS | | | [...] 72 - 104 mmHg | [facility] | | | | | ISEHA, POINT OF | | | | | [...] 98.3 | 94.0 - 100 % | [facility] | | | | | IESHA, POINT OF | | | | | CARE TESTS | + + + + + | HEMATOCRIT, POC | 30.7 (L) | 36.0 - 46.0 % | [facility] | | | | | IESHA, POINT OF | | | | | CARE TESTS | + + + + + | POTASSIUM, POC | 4.3 | 3.4 - 5.0 mmol/L | [facility] | | | | | IESHA, POINT OF | | | | | CARE TESTS | + + + + + | SODIUM, POC | 137 | 134 - 143 mmol/L | [facility] | | | | | IESHA, POINT [...] + + + | [facility] | [address] | [place], [place] | | | MAR[facility]SA JAIMES OF CARE | [address] | [address] | | | TESTS | | | | + + + + + SURGICAL PATHOLOGY (12/04/2018 9:11 AM) + + + + + | Component | Value | Ref Range | Performed At | + + + + + | Clinical History | 68 year old female with | | [facility] | | | a history of left upper | | OF PATHOLOGY | | | lobe nodule and | | | | | mediastinal adenopathy | | | + + + + + | Final Pathologic | A. Lymph node, level 7, | | [facility] | | Diagnosis | biopsy: Fragments of | | OF PATHOLOGY | | | lymph node with | | | | | metastatic carcinoma | | | | | (08/20) Sales cytokeratin | | | | | [...] lymph nodes | | | | | (08/22)H. Lymph node, | | | | | level 11L, biopsy: | | | | | Metastatic carcinoma in | | | | | one lymph node (08/20)I. | | | | | Lymph node, level 7, | | | | | biopsy: One lymph node | | | | | negative for metastasis | | | | | (0/1)J. Lung, [...] metastatic | | | | | carcinoma (08/20)L. Lymph | | | | | node, [...] | | | | nine lymph nodes (39) | | | | | Largest metastatic [...] (8th edition): | | | | | [id number]: The | | | | | tumor [...] | PathologistPathology, | | | | | [facility] | | | | | [facility] | | | | | signature indicates [...] | LUNG (Lung - All | | [facility] | | | Specimens) [...] Description | Received are 18 | | [facility] | | | specimens fresh in | | OF PATHOLOGY | | | containers labeled with | | | | | the patient's name | | | | | (initials JAO) and | | | | | medical record number | | | | | [id number]. Lymph node, | | | | | [...] | surfaces. | | | | | Accounts Payable Accountant sections | | | | | are [...] are 2 | | | | | fairbanks-monterrsoo to yellow lymph | | | | [...] positive | | | | | density, patient financial representative | | | | | sectionsP. [...] hilar mass. | | | | | Accounts Payable Accountant sections | | | | | are [...] node | | | | | from [id number]: 3.2 cm | | | | | [...] apical mass, | | | | | patient financial representative sections, | | | | | to include relationship | | | | | with pleura in | | | | | [id number]: Subpleural | | | | | induration, | | | | | patient financial representative | | | | | [id number]: Uninvolved | | | | | parenchyma, | | | | | patient financial representative | | | | | [id number]: 1 density | | | | | suggestive of lymph | | | | | node, [id number]: 1 | | | | | density [...] Intraoperative use | Frozen section | | [facility] | | only - [...] | PathologistPathology, | | | | | [facility] | | | | [...] | PathologistPathology, | | | | | [facility] | | | | [...] | PathologistPathology, | | | | | [facility] | | | | [...] | PathologistPathology, | | | | | [facility] | | | | [...] | PathologistPathology, | | | | | [facility] | | | | [...] | PathologistPathology, | | | | | [facility] | | | | [...] | PathologistPathology, | | | | | [facility] | | | | [...] | PathologistPathology, | | | | | [facility] | | | | [...] | PathologistPathology, | | | | | [facility] | | | | [...] | PathologistPathology, | | | | | [facility] | | | | [...] | PathologistPathology, | | | | | [facility] | | | | [...] | PathologistPathology, | | | | | [facility] | | | | [...] | | | | | | | [facility] | | | | | [facility]ology[facility]ann | | | | | [place] that point | | | + + + + + | Ancillary | Analyte specific | | [facility] | | Information | reagents are [...] | | | | | determined by [facility] | | | | | [...] + + + | [facility] | [address] | [place] [address] | | | PATHOLOGY | [address] | | | + + + + + FINE NEEDLE ASPIRATE (12/04/2018 8:06 AM) + + + + + | Component | Value | Ref Range | Performed At | + + + + + | Clinical History | 68 year-old woman with a | | [facility] | | | PET-avid left upper | | OF PATHOLOGY | | | lobe nodule. | | | + + + + + | Final Pathologic | A. Lymph node, level 7, | | [facility] | | Diagnosis | [...] pathology case | | | | | ([id number])]. No | | | | | definite carcinoma cells | | | | | seen are seen in this | | | | | sampling, however see | | | | | case [id number]. Case | | | | | seen by:Kathryn | | | | | Reising, CT(ASCP) - | | | | | CytotechnologistTodd | | | | | MD Steve | | | | | | | | | | Pathology ResidentAaron | | | | | Halfpenny, DO | | | | | | | | | | Cytopathology | | | | | FellowMick MD Shaan | | | | | | | | | | | | | | | PathologistPathology, | | | | | [facility] | | | | | [place] My electronic | | | | | [...] Impression | A: Evaluation episode | | [facility] | | | #1: [...] | PathologistPathology, | | | | | [facility] | | | | | [place] | | | + + + + + | Procedure Details | A. FNA by clinician. 3 | | [facility] | | | passes [...] + + + + + | [facility] | [address] | [place] [address] | | | [facility] | | | | [facility] | | | | + + + + + | [facility] | [address] | [place] [address] | | | PATHOLOGY | [address] | | | + + + + + CAPILLARY BLOOD GLUCOSE (NO CHG), POC (12/04/2018 6:50 AM) + +-------+ + + | Component | Value | Ref Range | Performed At | + +-------+ + + | BLOOD GLUCOSE, POC | 92 | 60 - 99 mg/dL | [facility] | | | | | [facility] JA[facility]ES OF | | | | | CARE TESTS | + +-------+ + + + + + + + | Performing | Address | City/State/Zipcode | Phone Number | | Organization | | | | + + + + + | [facility] | [address] | [place], [place] | | | [facility] | [address] | [address] | | | TESTS | | | [...] | | | HOURS, First dose on Jenniffer 12/12/18 | | [...] +-------+---+-------+ | bupivacaine (PF) | Given | | 10 mL | | Chest | | (MARCAINE,SENSORCAINE-MPF) 0.25 % | | 9 09:30 | | | | | (2.5 mg/mL) injection | | PDT | | | | | INTRAPROCEDURE PRN, Starting Wed | | | | | | | 12/04/18 at 0930, Until Wed | | | | | | | 12/04/18 at 1542 | | | | | | + +-------+ +-------+---+-------+ +-------+ +-------+---+-------+ | Given | | 20 mL | | Chest | | | 9 15:08 | | | | | | PDT | | | | +-------+ +-------+---+-------+ +---+---+ | | | +---+---+ + +-------+ +--------+---+---+ | buPROPion (WELLBUTRIN) tablet | Given | | 100 mg | | | | 100 mg 100 mg, oral, THREE TIMES | | 9 16:03 | | | | | DAILY, First dose on [facility] 12/12/18 | | PDT | | | [...] EVENING, First dose on Sun | | PDT [...] | | +---+---+ + +-------+ +---+---+---+ | heparin 1000 units/mL-NS | Given | | | | | | injection INTRAPROCEDURE PRN, | | 9 14:13 | | | | | Starting Sun12/04/18 at 1413, | | PDT | | | | | Until Sun12/04/18 at 1542 | | | | | | + +-------+ +---+---+---+ +-------+ +------+---+ + | Given | | 9 mL | | Surgical | | | 9 15:07 | | | Site | | | PDT | | | | +-------+ +------+---+ + +---+---+ | | | [...] First dose on Sun12/13/18 at | | PDT | | | [...] | mineral oil liquid | Given | | 10 mL | | | | INTRAPROCEDURE PRN, Starting Wed | | 9 14:12 | | | | | 12/04/18 at 1412, Until Wed | | PDT | | [...] | | | | | NEEDED, Starting [facility] 12/12/18 at | | | | | [...]
--- OUTSIDE RECORDS SUMMARY | ~2018-12-15 | XMS | Encounter Summary ---
Demographics + + + | Address | [address] | | | [place] [address] | + + + | Home Phone [...] Author + + + | Author | [facility] | + + + | Organization | [facility] | + + + | Address [...] Team Providers + +------+ + | Care Rubber Tubing Backer Name | Role | Phone | + [...] + + + | Authorized | | Thoracic | Diagnoses | Bony, | Stacy, | | | | Surgery | Lung nodule | MD Rell | MD Manoj | | | | | Procedures | [address] | [address] | | | | | CONSULT TO | Zoltan Melania | [facility] | | | | | SURGERY - | Rd | Rd [place], | | | | | CARDIOTHORAC | [place], [place] | [place] | | | | | IC | [address] | [address] | | | | | | Phone: | Phone: | | | | | | [phone] | [phone] | | | | | | Fax: | Fax: | | | | | | [phone] | [phone] | + +--------+ + + + + Consultation (Routine) +--------+--------+ + + + + | Status | Reason | Specialty | Diagnoses / | Referred By | Referred To | | | | | Procedures | Contact | Contact | +--------+--------+ + + + + | Closed | | Pulmonary | Diagnoses | Bony, | Pul Faculty | | | | Disease | Lung nodule | MD Rell | 3rd Ppv | | | | | Procedures | [address] | [address] | | | | | CONSULT TO | Zoltan Velázquez | Zoltan Velázquez | | | | | [address] | Rd | Road | | | | | | [place], [place] | Mailcode: | | | | | | [address] | [id number] | | | | | | Phone: | Physicians | | | | | | [phone] | [address] | | | | | | Fax: | [place], [place] | | | | | | [phone] | [address] | | | | | | | Phone: | | | | | | | [phone] | | | | | | | Fax: | | | | | | | [phone] | +--------+--------+ + + + + Encounter Details +--------+ + + + + | Date | Type | Department | Care Team | Description | +--------+ + + + + | 10/29/ | Warehouse Distribution Manager | Pulmonary & | Rlel Lovett, | Lung nodule (Primary | | 2019 | | Critical Care | [address] | Dx) | | | | Medicine at | [facility] | | | | | [facility] | [place], [place] | | | | | [address] | [address] | | | | | [facility] | [phone] | | | | | Mailcode: [id number] | | | | | | [facility] | | | | | | [address] [facility] [place] | | | | | | [address] | | | | | | [phone] | | | +--------+ + + + [...] | 2018 | Visit | | [address] | | | | | | [address] | | | | | | [place], [place] | | | | | | [address] | | | | | | [phone] | | | | | | | | +--------+---------+ + + + +------+--------+ + + | Name | Priori | Associated Diagnoses | Order Schedule | | | ty | | | +------+--------+ + + | EBUS | Routin | Lung nodule | Expected: 11/04/2018 | | | e | | | +------+--------+ + + as of this encounter Visit Diagnoses + + | Diagnosis | + + | Lung nodule - Primary | + + | Solitary pulmonary nodule | + +"
--- OUTSIDE RECORDS SUMMARY | ~2018-12-15 | XMS | Encounter Summary ---
Demographics + + + | Address | [address] | | | [place] [address] | + + + | Home Phone [...] + + + | Author | [facility] | + + + | Organization | [facility] | + + + | [...] Providers + +------+ + | Care Home Health Outreach Coordinator Name | Role | Phone | [...] | CONSULT TO | Zoltan Melania | [facility] | | | | | SURGERY - | Rd | [address] [place], | | | | | CARDIOTHORAC | [place], [place] | [place] | | | | | [place] | [address] | [address] | | | | | | Phone: | Phone: | | | | | | [phone] | [phone] | | | | | | Fax: | Fax: | | | | | | [phone] | [phone] | + +--------+ + + + + [...] Road | | | | | | [place], [place] | Mailcode: | | | | | | [address] | [id number] | | | | | | Phone: | Physicians | | | | | | [phone] | [address] | | | | | | Fax: | [place], [place] | | | | | | [phone] | [address] | | | | | | | Phone: | | | | | | | [phone] | | | | | | | Fax: | | | | | | | [phone] | +--------+--------+ + + + + Encounter Details +--------+ + + + + | Date | Type | Department | Care Team | Description | +--------+ + + + + | 10/29/ | Technical Instructor Course Developer | Pulmonary & | Rell Lovett, | Lung nodule (Primary | | 2019 | | Critical Care | [address] | Dx) | | | | Medicine at | [facility] | | | | | [facility] | [place], [place] | | | | | [address] | [address] | | | | | [facility] | [phone] | | | | | Mailcode: [id number] | | | | | | [facility] | | | | | | [address] [facility] [place] | | | | | | [address] | | | | | | [phone] | | | +--------+ + + + [...] Rd | | | | | | [place], [place] | | | | | | [address] | | | | | | [phone] | | | | | | | [...]
--- OUTSIDE RECORDS SUMMARY | ~2018-12-15 | XMS | Encounter Summary ---
Demographics + + + | Address | [address] | | | [place] [address] | + + + | Home Phone [...] Author + + + | Author | [facility] | + + + | Organization | [facility] | + + + | Address [...] Team Providers + +------+ + | Care Mail Handler Name | Role | Phone | + [...] + + | 12/04/ | Hospital | [facility] [address] | Manoj Kumar MD | | | 2019 - | Encounter | [address] | [address] | | | | | [id number] [facility] | [address] | | | 12/14/ | | [facility], | [place], [place] | | | 2019 | | [place] [address] | [address] | | | | | [phone] | [phone] | | | | | | | [...] Discharge Medications: Sussy Allred Home Medication Instructions ABRAHAN:[id number] Printed on:12/13/18 2106 Medication Information acetaminophen 325 mg oral tablet [...] at 12/14/18926 Last data filed at 12/14/18 0708 Gross per 24 hour Intake 885 ml [...] 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 Lymph node, level 11L, biopsy: ? [...] Care Everywhere.Lung Resection: Post-op (Christiano rubio)Mediastinoscopy: Pre-op (Bhutanese)in this encounter Medications at Time of Discharge [...] PDTLeft chest tube removed. Keena Myles, MYRNA -ASSOCIATE MUSIC PROFESSOR - 12/13/2018 8:11 AM PDT ENT SPEECH [...] or concerns about eating, drinking. DIETARY STATUS: [facility] soft. Ate steelhead, veggies, rice [...] Voice clear, breathing comfortably. No further acute ASSOCIATE MUSIC PROFESSOR needs. PLAN: 1. ADAT back to regular diet. Pills by mouth okay - in liquids or purees as she wishes. -Aspiration precautions - upright with all PO, single small bites/sips, one bite/sip at a time -L head-turn + chin-tuck is fine if patient finds it helpful with liquids 2. TFs have been discontinued 3. ENT ASSOCIATE MUSIC PROFESSOR will sign-off. Patient can follow-up with us as outpatient in clinic with Dr. Jose arce as needed. Keena Myles MS, [facility]-ASSOCIATE MUSIC PROFESSOR Speech-Language Pathologist [facility] Dept. of Otolaryngology, [address] [place] [address] Pager: [phone] Silvana Quevedo MD - 12/13/2018 7:11 AM PDTFormatting of this note may be different from the original. Thoracic Surgery Brief Inpatient Progress Note Patient name: SUSSY ALLRED Attending: Manoj Kumar MD Procedure day: 9 Procedure: Left thoracotomy, CODY lobectomy with bronchial and PA reconstruction 24 hour events: - Remains on NC, doing well, tolerating [facility] soft diet and diet, no complaints. [...] ? Two lymph nodes negative for metastasis (0) G. Lymph node, proximal level 10L, biopsy: [...] mechanical soft diet. Tube feeds off. Plan (pntu-gq-gnmwmzmc issues): - Aspiration pneumonitis: Resolved - Hypophosphatemia: [...] Stacy Quevedo MD Cardiothoracic Surgery Fellow Pager: [phone] Keena Myles, CCC-ASSOCIATE MUSIC PROFESSOR - 12/12/2018 12:22 PM PDT ENT SPEECH [...] may not be indicated until 6 weeks post-[facility] ent. DIETARY STATUS: Purees and any liquids. [...] resident on- call. Recommend diet upgrade to [facility] soft and any liquids for more [...] of TFs to promote appetite 3. ENT ASSOCIATE MUSIC PROFESSOR will continue to follow. Please page [phone] as needed. Keena Myles MS, [facility]-ASSOCIATE MUSIC PROFESSOR Speech-Language Pathologist [facility] Dept. of Otolaryngology, [address] [place] [address] Pager: [phone] Silvana Quevedo MD - 12/12/2018 7:53 AM [...] a PEG tube for nutri tion. Plan (cdom-pd-dmtcygcs issues): - Aspiration pneumonitis: Productive sputum, augmentin [...] Stacy Quevedo MD Cardiothoracic Surgery Fellow Pager: [phone] Keena Myles, [facility]-ASSOCIATE MUSIC PROFESSOR - 12/11/2018 2:44 PM PDT ENT SPEECH [...] The patient was evaluated in the [facility] 10th floor Radiology suite & was observed [...] re: decrease or discontinue TFs 3. ENT ASSOCIATE MUSIC PROFESSOR will follow-up on morning. Please page [phone] as needed. Keena Myles MS, CCC-ASSOCIATE MUSIC PROFESSOR Speech-Language Pathologist [facility] Dept. of Otolaryngology, [address] [facility] [place] [address] Pager: [phone] Keena Myles, CCC-ASSOCIATE MUSIC PROFESSOR - 12/11/2018 10:26 AM PDT ENT SPEECH [...] to improve and tolerate PO. 4. ENT ASSOCIATE MUSIC PROFESSOR [place] [phone] [place] [phone] any time with questions or concer ns. Keena Myles MS, CCC-ASSOCIATE MUSIC PROFESSOR Speech-Language Pathologist [facility] Dept. of Otolaryngology, [address] [place] [address] Pager: [phone] Silvana Quevedo MD - 12/11/2018 8:24 AM [...] PEG tube and stric t NPO. Plan (mwkv-zh-itzkmqrw issues): - Aspiration pneumonitis: Productive sputum, augmentin [...] Stacy Quevedo MD Cardiothoracic Surgery Fellow Pager: [phone] Meggan Downs, ASSOCIATE MUSIC PROFESSOR - 12/10/2018 4:21 PM PDTINPATIENT ENT SPEECH PROGRESS NOTE: Order received, chart reviewed. Patient with history of "large volume aspiration", even un clear. Recommend objective swallow evaluation in Radiology Sunday, 12/11 prior to initiat ion of p.o. Intake. Recommend: NPO, all nutrition/hydration/medication via PEG Plan: [facility] Sunday. Meggan Downs, Ph.D., CCC-ASSOCIATE MUSIC PROFESSOR Manager Recruitment Director, [facility] Otolaryngology, Head and Neck Surgery [facility] [phone] Augustine Nolan MD - 12/10/2018 9:51 AM PDTFormatting of this note may be different f rom the original. PATIENT NAME: Sussy Allred MR#: [id number] : 1950 PRIMARY CARE PROVIDER: MALLIKA Toledo [...] does require an [facility], but is not particularly uncomfortable and [...] Dr. Jose da silva. Augustine Nolan M.D. Manager Recruitment Laryngology and Head & Neck SurgerySilvana Quevedo MD - 12/10/2018 6:35 AM PDTFormatting of this note may be different from the original. Thoracic Surgery Brief Inpatient Progress Note Patient name: SUSSY ALLRED Attending: Manoj Kumar MD Procedure day: 6 Procedure: Left thoracotomy, CDOY lobectomy with bronchial and PA reconstruction 24 [...] PEG tube and stric t NPO. Plan (nqxi-jw-otywluls issues): - Aspiration pneumonitis: Productive sputum, augmentin [...] Stacy Quevedo MD Cardiothoracic Surgery Fellow Pager: [phone] Kiya Cedillo MD,PhD - 12/09/2018 2:43 PM [...] removal. APS will sign off, please page [phone] if there are questions or concerns. APS happy to repla ce epidural in future if primary team and patient think it is needed. Kiya Santos MD Pager [phone] Department of Anesthesiology and Perioperative Medicine Chronic [...] PEG tube and stric t NPO. Plan (brwf-uu-uzmxcsub issues): - Aspiration pneumonitis: strict NPO, aggressive [...] Stacy Quevedo MD Cardiothoracic Surgery Fellow Pager: [phone] Vee Dickerson, [facility] - 12/09/2018 9:44 AM PDTFormatting of this note may be different from the original. 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 24 Hour events - [...] dysphagia. - Strict NPO, consider re consulting ASSOCIATE MUSIC PROFESSOR today pending course and ENT recs - [...] 12/07 - Strict NPO - ENT performed FERN PICKER scope with evidence of left vocal cord [...] Manoj Kumar MD Admitting Provider Cardiothoracic Surgery 83682 Quality section FAST HUG Feeding: Tube Feeds [...] the recent imaging availabl e. 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 Given her likely long-term [...] 12/07 - Strict NPO - ENT performed FERN PICKER scope with evidence of left vocal cord [...] Manoj Kumar MD Admitting Provider Cardiothoracic Surgery 21115 Jama Zhao MD ICU PM Attending Anesthesiology 91492 Quality section FAST HUG Feeding: Tube Feeds: [...] e. Date of Service: 12/08/2018 MALLIKA STONER [facility] DEPARTMENT: ANE ICU CARDIAC Place of Service:- Inpatient CSN: [id number] Suggested Modifier: None Suggested CPT: TO GUM COOK Author:MALLIKA STONER [address] [place] [place] [address]FajdyhuyDennis Myrick MD - 12/08/2018 10:12 AM PDTFormatting of this no te may be different from the original. 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 Given her likely long-term [...] Manoj Kumar MD Admitting Provider Cardiothoracic Surgery 13009 Jama Zhao MD ICU PM Attending Anesthesiology 99960 Code Status Code Status Full Code Quality section I have spent a total of 38 minutes in the direct care and management of this patient indepe ndent of any time spent teaching or performing any separately billable procedures. I reviewe d the documented findings, all data and the recent imaging available. Seen with PA/FERN PICKER myah . Please see their note for details. I reviewed the documented findings, all data and the re cent imaging available. Dennis Myrick MD Author:Dennis Myrick MD [address]Oziel Read MD - 12/08/2018 8:43 AM [...] Moura MD Adult Acute Pain Service [facility] Pager#: [phone] Email: [email or web address] MD - 12/08/2018 8:25 AM PDTFormatting [...] post-procedure ye , which is reassuring. Plan (ruvk-zr-wnnfivwp issues): - Aspiration pneumonitis: strict NPO, aggressive [...] - Discuss with MD Coreen Farley MD [facility] General Surgery Pager #[phone] Dennis Allred PA-C - 12/08/2018 5:02 AM PDTFormatting of this note may be d ifferent from the original. 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 Given her likely long-term [...] General Surgery, PGY-3 EGS consult resident pager: [phone] Jama Zhao MD - 12/07/2018 7:30 PM PDTFormatting of this note may be different f rom the original. 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 Given her likely long-term [...] No Chronic pain Yes Service Cardiac Surgery [8968] Admitting provider and ICU treatment team members Provider Role Specialty Pager Manoj Kumar MD Admitting Provider Cardiothoracic Surgery 07593 Jama Zhao MD ICU PM Attending Anesthesiology 67544 Code Status Code Status Full Code This [...] and the recent imaging available. Seen with PA/FERN PICKER Chalino. Please see their note for details. I reviewed the documented findings, all data and the rec ent imaging available. Date of Service: 12/07/2018 [facility] DEPARTMENT: ANE ICU CARDIAC Place of Service:- Inpatient CSN: [id number] Suggested Modifier: None Suggested CPT: TO GUM COOK Author:Jama Zhao MD [address] [address]Mle, Louie Daniels MD - 12/07/2018 1:26 PM [...] infusion, titrate infusion as needed MD Anderson Casillas, Sonya Parsons MD - 12/07/2018 1:01 PM PDTFormatting of this note may be different from wood maddox original. 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 Given her likely long-term need fo r tube feeding given her dysphagia, EGS consulted and plans for PEG. Patient's ICU course co mplicated by hypertension (required phenylephrine now weaned off) and high volume aspiration event with hypoxia requiring HFNC 20L. Remains hemodynamically stable. 24 Hour events - Strict NPO with concern for high volume aspiration, ASSOCIATE MUSIC PROFESSOR signed off for now - Overnight worsening [...] event - Strict NPO - ENT performed FERN PICKER scope with evidence of left vocal cord [...] Manoj Kumar MD Admitting Provider Cardiothoracic Surgery 89513 Jama Zhao MD ICU PM Attending Anesthesiology 64096 Quality section FAST HUG Feeding: NPO Analgesia: Epidural (HM-bupiv), rectal tylenol, lido patches Sedation: None Thromboprophylaxis: Lovenox Head of Bed: Head of Bed >30 degrees Ulcer Prophylaxis: Famotidine Glycemic Control: insulin sliding Created by Sonya Barron MD Author:Sonya Barron MD [facility] [address] [place] [address]YparqculDennis Myrick MD - 12/07/2018 10:19 AM PDTFormatting of this no te may be different from the original. Cardiovascular Intensive Care Unit Attending Progress Note CVICU D2 Assigned #[id number] ICU Admission Reason Most Recent Value ICU [...] Manoj Kumar MD Admitting Provider Cardiothoracic Surgery 49449 Jama Zhao MD ICU PM Attending Anesthesiology 26618 Code Status Code Status Full Code I [...] ICU CARDIAC Place of Service:- Inpatient CSN: [id number] Suggested Modifier: GC - Resident Involved Suggested CPT: TO GUM COOK Dennis Myrick MD Author:Dennis Myrick MD [address] [address] [place] [address]CohtwptConcha Wayne MD - 12/07/2018 9:49 AM PDTFormatting of this n ote may be different from the original. Thoracic Surgery Brief Inpatient Progress Note Patient name: SUSSY ALLRED Attending: Manoj Kumar MD Procedure day: 3 Procedure: Left thoracotomy, CODY lobectomy with bronchial and PA reconstruction 24 hour events: - made strict NPO yesterday with concern for aspiration, ASSOCIATE MUSIC PROFESSOR signed off for now - overnight worsening [...] he risk of prolonged intubation post-anesthesia. Plan (ipwd-en-usezsdpo issues): - Aspiration pneumonitis: strict NPO, aggressive [...] and discussed with Dr. Chaya Wayne MD [facility] General Surgery Pager #[phone] Gayle Michael - 12/07/2018 9:21 AM PDTTransthoracic echocardiogram complete d. Final report to follow.Dennis Allred PA-C - 12/07/2018 5:34 AM PDTFormatting of this note may be different from the original. Cardiovascular Intensive Care Unit Clinical Update Note Team: D2 Team Pager: [phone] Attending: Cece Pt Name: Sussy Allred ID: [...] of record for this pt encounter Signed: Mairana Dhaliwal MD,MPH General Surgery, PGY-3 EGS consult resident pager: [phone] Associated attestation - Derrick Handley MD - 12/08/2018 10:17 AM PDTATTENDING ADDENDUM I saw and examined Sussy Allred with the residents on 12/07 and agree with the assessmen t and plan as outlined in this note and participated in the planning of care. Derrick Handley MD FACS market stall vendor Division of Trauma, Critical Care, and Acute Care Surgery [phone] Dennis Myrick MD - 12/06/2018 11:01 AM PDTFormatting of this note may be different fro m the original. Cardiovascular Intensive Care Unit Attending Progress Note CVICU D2 Assigned #[id number] ICU Admission Reason Most Recent Value ICU [...] Manoj Kumar MD Admitting Provider Cardiothoracic Surgery 99618 [place] necessity reviewed: Plan to DC today [...] ICU CARDIAC Place of Service:- Inpatient CSN: [id number] Suggested Modifier: GC - Resident Involved Suggested CPT: TO GUM COOK Dennis Myrick MD Author:Dennis Myrick MD [address] [address]Kuuglh, Nkem, MD - 12/06/2018 9:21 AM PDTThoracic [...] Stacy Quevedo MD Cardiothoracic Surgery Fellow Pager: [phone] Sonya Barron MD - 12/06/2018 7:50 AM PDTFormatting of this note may be different from t varsha original. Cardiovascular Intensive Care Unit Team Progress Note CVICU D2 Assigned #[id number] ICU Admission Reason Most Recent Value ICU [...] DHT vs eventual Gtube - ENT performed FERN PICKER scope with evidence of left vocal cord [...] Manoj Kumar MD Admitting Provider Cardiothoracic Surgery 72042 Quality section A-Line necessity reviewed: Plan to DC today [place] necessity reviewed: Plan to DC today FAST HUG Feeding: NPO Analgesia: epidural, Tylenol, lidocaine patches Sedation: None Thromboprophylaxis: Lovenox Head of Bed: Head of Bed >30 degrees Ulcer Prophylaxis: Famotidine Glycemic Control: insulin sliding Created by Sonya Barron MD Author:Sonya Barron MD [address] [address]QbthtsRobin Flores MD - 12/06/2018 7:02 AM PDTFormatting [...] revealed minimally mobile LEFT true vocal cord. ASSOCIATE MUSIC PROFESSOR evaluation with concern for ri sk of [...] Flores MD Anesthesiology/CCM Fellow APS Team Pager [phone] Associated attestation - Louie Moura MD - 12/07/2018 2:59 PM PDTI saw and evaluated mallika Allred with trainee: Dr. Flores . I have reviewed the trainee's note and I agree with the plan of care as documented. Louie Moura MD Adult Acute Pain Service [facility] Pager#: [phone] Email: [email or web address] - 12/05/2018 9:06 PM PDTFormatting of this note ma y be different from the original. Cardiovascular Intensive Care Unit Clinical Update Note Team: D2 Team Pager: [phone] Attending: Layla Pt Name: Sussy Allred ID: Abbreviated HPI Update: 1. Hypotension a. Impoved 12/05/2018 after 2L crystalloid b. UO improved with IVF 2. Recurret Laryngeal nerve a. ENT Eval complete b. Pending re eval by ASSOCIATE MUSIC PROFESSOR for swallow this sim S: Pain, drowsy [...] Unit Team Progress Note CVICU D2 Assigned #[id number] ICU Admission Reason Most Recent Value ICU [...] levothyroxine 50mcg PO DAILY after clear by ASSOCIATE MUSIC PROFESSOR Cardiovascular HTN (hypertension) Unknown Current Assessment & [...] - restart PO PPI when clear by ASSOCIATE MUSIC PROFESSOR At risk for Dysphagia Unknown Current Assessment [...] Manoj Kumar MD Admitting Provider Cardiothoracic Surgery 57443 Quality section A-Line necessity reviewed: Gmxj-tu-vfzh blood pressure monitoring [place] necessity reviewed: Hourly/Accurate measurement of urinary output for clinical manage ment of critically ill patients FAST HUG Feeding: NPO Analgesia: Tylenol, epidural (bupiv-fent) Sedation: None Thromboprophylaxis: SCDs Head of Bed: Head of Bed >30 degrees Ulcer Prophylaxis: Famotidine Glycemic Control: insulin sliding Created by Sonya Barron MD Author:Sonya Barron MD [address] [address]Xgblzsd, Sara, [facility]-ASSOCIATE MUSIC PROFESSOR - 12/05/2018 10:00 AM PDTENT SPEECH PATHOLOGY- [...] HISTORY: she is single and lives in [place], [place] DIETARY STATUS: Current diet: The [...] afternoon when less lethargic/sedate. Ava Allred M.S., CF-ASSOCIATE MUSIC PROFESSOR Speech-Language Pathology Fellow [facility] [phone] Pager: [phone] Dennis Myrick MD - 12/05/2018 8:57 AM PDTFormatting of this note may be different fro m the original. Cardiovascular Intensive Care Unit Attending Progress Note CVICU D2 Assigned #[id number] ICU Admission Reason Most Recent Value ICU [...] Manoj Kumar MD Admitting Provider Cardiothoracic Surgery 24421 Code Status Code Status Full Code Quality section A-Line necessity reviewed: Kxnc-pn-gmum blood pressure monitoring [place] necessity reviewed: Acute [...] ICU CARDIAC Place of Service:- Inpatient CSN: [id number] Suggested Modifier: GC - Resident Involved Suggested CPT: TO GUM COOK Dennis Myrick MD Author:Dennis Myrick MD [address]Robin Flores MD - 12/05/2018 8:08 AM PDTFormatting [...] to have BPs in 80s systolic. Daniela s was prior to any intervention. Overnight [...] Flores MD Anesthesiology/CCM Fellow APS Team Pager [phone] Associated attestation - Kiya Cedillo MD,PhD - [...] Stacy Quevedo MD Cardiothoracic Surgery Fellow Pager: [phone] Dennis Allred PA-C - 12/05/2018 3:00 AM PDTFormatting of this note may be different from the original. Cardiovascular Intensive Care Unit Clinical Update Note Team: D2 Team Pager: [phone] Attending: Layla Pt Name: Sussy Allred ID: [...] - restart PO PPI when clear by ASSOCIATE MUSIC PROFESSOR Hypothyroidism 12/04/2018 Assessment & Plan Note: - restart home levothyroxine 50mcg PO DAILY after clear by ASSOCIATE MUSIC PROFESSOR Acute post-operative pain 12/04/2018 Assessment & Plan [...] LEVEL/LATERALITY: bilateral ATTENDING PHYSICIAN: Hellen Herman MD INSTITUTIONAL ASSET MANAGER: Jamey Flores MD, Manda Hamm MD ANESTHESIA: [...] PARQ done. After discussion of risks and benefitsadina informed consent was obtained from patient. The [...] procedure. MD Jamey Boss M.D. Assisted our engineer intern. I saw and evaluated patient Ms. [...] | 2019 | Visit | | [address] [facility] | | | | | | [address] | | | | | | [place], [place] | | | | | | [address] | | | | | | [phone] | | | | | | | [...] + +--------+ + + + | TO GUM COOK | Routin | 12/05/2018 | | Results [...] [facility] | | | | | [facility] | | | | | CARE TESTS | + +---------+ + + + + + + + | Performing | Address | City/State/Zipcode | Phone Number | | Organization | | | | + + + + + | [facility] | [address] | [place], [place] | | | [facility] CARE | [address] | [address] | | | TESTS | | | [...] [facility] | | | | | [facility] | | | | | CARE TESTS | + +---------+ + + + + + + + | Performing | Address | City/State/Zipcode | Phone Number | | Organization | | | | + + + + + | [facility] | [address] | [place], [place] | | | [facility] CARE | [address] | [address] | | | TESTS | | | | + + + + + X-RAY PORTABLE CHEST 1 VIEW (12/13/2018 8:24 AM) + + + | Narrative | Performed At | + + + | EXAM: MO CHEST 1 VIEW HISTORY: eval interval change. [...] Interface - 12/13/2018 9:47 AM PDT EXAM: MO CHEST 1 | | VIEW HISTORY: eval [...] [facility] | | | | | [facility] | | | | | CARE TESTS | + +---------+ + + + + + + + | Performing | Address | City/State/Zipcode | Phone Number | | Organization | | | | + + + + + | [facility] | [address] | [place], [place] | | | [facility] OF [facility] | [address] | [address] | | | TESTS | | | [...] [facility] | | | | | [facility] | | | | | CARE TESTS | + +---------+ + + + + + + + | Performing | Address | City/State/Zipcode | Phone Number | | Organization | | | | + + + + + | [facility] | [address] [facility] [address] | [place], [place] | | | [place] [facility] | [address] | [address] | | | TESTS | | | [...] | MD Sae Cardiothoracic Surgery Fellow Pager: [phone] | | + + + CAPILLARY BLOOD [...] [facility] | [address] | [place], [place] | | | [facility] CARE | [facility] | [address] | | | TESTS | | | | + + + + + CAPILLARY BLOOD GLUCOSE (NO CHG), POC (12/12/2018 8:09 AM) + +-------+ + + | Component | Value | Ref Range | Performed At | + +-------+ + + | BLOOD GLUCOSE, POC | 98 | 60 - 99 mg/dL | [facility] | | | | | [facility] | | | | | CARE TESTS | + +-------+ + + + + + + + | Performing | Address | City/State/Zipcode | Phone Number | | Organization | | | | + + + + + | [facility] | [address] | [place], [place] | | | [facility] | [address] | [address] | | | TESTS | | | | + + + + + CAPILLARY BLOOD GLUCOSE (NO CHG), POC (12/12/2018 6:08 AM) + +---------+ + + | Component | Value | Ref Range | Performed At | + +---------+ + + | BLOOD GLUCOSE, POC | 113 (H) | 60 - 99 mg/dL | [facility] | | | | | [facility] | | | | | CARE TESTS | + +---------+ + + + + + + + | Performing | Address | City/State/Zipcode | Phone Number | | Organization | | | | + + + + + | [facility] | [address] | [place], [place] | | | IESHA POINT OF CARE | [facility] | [address] | | | TESTS | | | [...] [facility] | | | | | MARISSA JULIAN OF | | | | | CARE TESTS | + +---------+ + + + + + + + | Performing | Address | City/State/Zipcode | Phone Number | | Organization | | | | + + + + + | [facility] | [address] | [place], [place] | | | IESHA POINT OF CARE | [address] | [address] | | | TESTS | | | | + + + + + CAPILLARY BLOOD GLUCOSE (NO CHG), POC (12/11/2018 5:13 PM) + +---------+ + + | Component | Value | Ref Range | Performed At | + +---------+ + + | BLOOD GLUCOSE, POC | 136 (H) | 60 - 99 mg/dL | [facility] | | | | | MARISSA JULIAN OF | | | | | CARE TESTS | + +---------+ + + + + + + + | Performing | Address | City/State/Zipcode | Phone Number | | Organization | | | | + + + + + | [facility] | [address] | [place], [place] | | | MARISSA JULIAN OF CARE | [address] | [address] | | | TESTS | | | | + + + + + CAPILLARY BLOOD GLUCOSE (NO CHG), POC (12/11/2018 12:48 PM) + +---------+ + + | Component | Value | Ref Range | Performed At | + +---------+ + + | BLOOD GLUCOSE, POC | 109 (H) | 60 - 99 mg/dL | [facility] | | | | | MARISSA JULIAN OF | | | | | CARE TESTS | + +---------+ + + + + + + + | Performing | Address | City/State/Zipcode | Phone Number | | Organization | | | | + + + + + | [facility] | [address] | [place], [place] | | | [place] [facility] | [address] | [address] | | | TESTS | | | [...] | 3.50 - 10.80 K/cu mm | [facility] | | | | | SERVICES CORE | + + + + + | RED CELL COUNT | 2.64 (L) | 4.00 - 5.20 M/cu mm | [facility] | | | | | SERVICES [...] (L) | 9.7 - 12.3 fL | [facility] | | | | | SERVICES, CORE | + + + + + | NRBC% | 0.0 | 0.0 - 0.3 % | [facility] | | | | | SERVICES, CORE | + + + + + | NRBC# | 0.00 | 0.00 - 0.02 K/cu mm | [facility] | | | | | SERVICES, CORE | + + + + + + + | Specimen | + + | Blood - Blood | + + + + + + + | Performing | Address | City/State/Zipcode | Phone Number | | Organization | | | | + + + + + | [facility] | [address] | [place] [address] | | | SERVICES, CORE | [address] | | | + + + + + MAGNESIUM, PLASMA (12/11/2018 5:01 AM) + +-------+ + + | Component | Value | Ref Range | Performed At | + +-------+ + + | MAGNESIUM,PLASMA | 2.3 | 1.6 - 2.6 mg/dL | [facility] | | | | | KOKI STUART | + +-------+ + + + + | Specimen | + + | Blood - Blood | + + + + + + + | Performing | Address | City/State/Zipcode | Phone Number | | Organization | | | | + + + + + | [facility] | [address] | [place] [address] | | | SERVICES, CORE | [address] | | | + + + [...] >60 mL/min | [facility] | | BRAZILIAN | | | SADE, CORE | + + + + + | EGFR NON | >60 | >60 mL/min | [facility] | | -BRAZILIAN | | | SADE, CORE | + [...] LABORATORY | | (LAB) | | | [facility], CORE | + + + + + | POTASSIUM CMNT | No Hemo | | [facility] | | | | | SERVICES, [facility] | + + + + + | ANION GAP | 6 | 4 - 11 mmol/L | [facility] | | | | | [facility], CORE | + + + + + | ANION GAP(ALB | 11 | 4 - 11 mmol/L | [facility] | | CORRECTED) | | | SERVICES, CORE | + + + + + + + | Specimen | + + | Blood - Blood | + + + + + | Narrative | Performed At | + + + | GFR is estimated using the MDRD equation recommended by the | [facility] | | National Kidney Disease Education Program. [...] | + + + + + | [facility] | [address] | [place] [address] | | | SADE, KOKI | [address] | | | + + + [...] | 60 - 99 mg/dL | [facility] | | | | | MARISSA JULIAN OF | | | | | CARE TESTS | + +---------+ + + + + + + + | Performing | Address | City/State/Zipcode | Phone Number | | Organization | | | | + + + + + | [facility] | [address] | [place], [place] | | | IESHA POINT OF CARE | [address] | [address] | | | TESTS | | | [...] [facility] | [address] | [place], [place] | | | MARISSA JULIAN OF CHE | [facility] | [address] | | | TESTS | | | | + + + + + CAPILLARY BLOOD GLUCOSE (NO CHG), POC (12/10/2018 12:03 PM) + +---------+ + + | Component | Value | Ref Range | Performed At | + +---------+ + + | BLOOD GLUCOSE, POC | 121 (H) | 60 - 99 mg/dL | [facility] | | | | | ADDIE JULIAN | | | | | CARE TESTS | + +---------+ + + + + + + + | Performing | Address | City/State/Zipcode | Phone Number | | Organization | | | | + + + + + | [facility] | [address] | [place], [place] | | | MARISSA JULIAN OF CARE | [address] | [address] | | | TESTS | | | | + + + + + CBC (HEMOGRAM) ONLY (12/10/2018 6:13 AM) + + + + + | Component | Value | Ref Range | Performed At | + + + + + | WHITE CELL COUNT | 9.93 | 3.50 - 10.80 K/cu mm | [facility] | | | | | SERVICES, [...] | + + + + + | [facility] | [address] | [place] [address] | | | SERVICES, CORE | [address] | | | + + + + + MAGNESIUM, PLASMA (12/10/2018 6:13 AM) + +-------+ + + | Component | Value | Ref Range | Performed At | + +-------+ + + | MAGNESIUM,PLASMA | 2.4 | 1.6 - 2.6 mg/dL | [facility] | | | | | SERVICES, CORE | + +-------+ + + + + | Specimen | + + | Blood - Blood | + + + + + + + | Performing | Address | City/State/Zipcode | Phone Number | | Organization | | | | + + + + + | [facility] | [address] | [place] [address] | | | SERVICES, CORE | [address] | | | + + + [...] >60 mL/min | [facility] | | BRAZILIAN | | | SERVICES, CORE | + + + + + | EGFR NON | >60 | >60 mL/min | [facility] | | -BRAZILIAN | | | SERVICES, CORE | + [...] 2.8 | 2.4 - 4.7 mg/dL | [facility] | | (LAB) | | | SERVICES, CORE | + + + + + | POTASSIUM CMNT | No Hemo | | [facility] | | | | | SERVICES, CORE | + + + + + | ANION GAP | 5 | 4 - 11 mmol/L | [facility] | | | | | SERVICES, CORE | + + + + + | ANION GAP(ALB | 10 | 4 - 11 mmol/L | [facility] [...] | + + + + + | [facility] | [address] | [place] [address] | | | KOKI STUART | [address] | | | + + + + + CARDIOLOGY (12/10/2018) + + + | Narrative | Performed At | + + + | | | + + + MAGNESIUM, PLASMA (12/09/2018 12:17 PM) + +-------+ + + | Component | Value | Ref Range | Performed At | + +-------+ + + | MAGNESIUM,PLASMA | 2.1 | 1.6 - 2.6 mg/dL | [facility] | | | | | SERVICES, CORE | + +-------+ + + + + | Specimen | + + | Blood - Blood | + + + + + + + | Performing | Address | City/State/Zipcode | Phone Number | | Organization | | | | + + + + + | [facility] | [address] | [place] [address] | | | SERVICES, CORE | [address] | | | + + + + + RENAL FUNCTION SET (NA,K,CL,CO2,BUN,CREAT,GLUC,CA,PHOS,ALB ) (12/09/2018 12:17 PM) + + + + + | Component | Value | Ref Range | Performed At | + + + + + | GLUCOSE, PLASMA | 92 | 70 - 99 mg/dL | [facility] | | (LAB) | | | SADE CORE | + + + + + | BUN, PLASMA (LAB) | 8 | 6 - 20 mg/dL | [facility] | | | | | SERVICES, CORE | + + + + + | CREATININE PLASMA | 0.47 (L) | 0.60 - 1.10 mg/dL | [facility] | | (LAB) | | | SERVICES, CORE | + + + + + | EGFR - | >60 | >60 mL/min | [facility] | | BRAZILIAN | | | SERVICES, CORE | + + + + + | EGFR NON | >60 | >60 mL/min | [facility] | | -BRAZILIAN | | | SERVICES, CORE | + [...] 27 | 21 - 32 mmol/L | [facility] | | (LAB) | | | SERVICES, CORE | + + + + + | CALCIUM, PLASMA | 7.0 (L) | 8.6 - 10.2 mg/dL | [facility] | | (LAB) | | | SERVICES, CORE | + + + + + | CALCIUM(ALB | 9.0 | 8.6 - 10.2 mg/dL | [facility] | | CORRECTED) | | | SADE, CORE | + + + + + | ALBUMIN, PLASMA | 1.5 (L) | 3.5 - 4.7 g/dL | [facility] | | (LAB) | | | [...] | + + + + + | [facility] | [address] | [place] [address] | | | SERVICES, KOKI | [address] | | | + + + + + CBC (HEMOGRAM) ONLY (12/09/2018 6:35 AM) + + + + + | Component | Value | Ref Range | Performed At | + + + + + | WHITE CELL COUNT | 7.77 | 3.50 - 10.80 K/cu mm | [facility] | | | | | KOKI [...] | + + + + + | [facility] | [address] | [place] [address] | | | SERVICES, CORE | [address] | | | + + + [...] | + + + + + | [facility] | [address] | [place] [address] | | | SERVICES, CORE | [address] | | | + + + + + POTASSIUM, PLASMA (12/09/2018 6:35 AM) + +---------+ + + | Component | Value | Ref Range | Performed At | + +---------+ + + | POTASSIUM, PLASMA | 3.7 | 3.4 - 5.0 mmol/L | [facility] | | (LAB) | | | SERVICES, CORE | + +---------+ + + | POTASSIUM CMNT | No Hemo | | [facility] | | | | [...] | + + + + + | [facility] | [address] | [place] [address] | | | SERVICES, KOKI | [address] | | | + + + + + X-RAY PORTABLE CHEST 1 VIEW (12/09/2018 5:41 AM) + + + | Narrative | Performed At | + + + | EXAM: MO CHEST 1 VIEW HISTORY: Shortness of breath. [...] Interface - 12/09/2018 7:45 AM PDT EXAM: MO CHEST 1 | | VIEW HISTORY: Shortness [...] 1.8 | 1.6 - 2.6 mg/dL | [facility] | | | | | SERVICES, CORE | + +-------+ + + + + | Specimen | + + | Blood - Blood | + + + + + + + | Performing | Address | City/State/Zipcode | Phone Number | | Organization | | | | + + + + + | [facility] | [address] | [place] [address] | | | SERVICES, KOKI | [address] [...] >60 mL/min | [facility] | | BRAZILIAN | | | SADE CORE | + + + + + | EGFR NON | >60 | >60 mL/min | [facility] | | -BRAZILIAN | | | SERVICES, CORE | + [...] LABORATORY | | | | | SERVICES, [facility] | + + + + + | ANION GAP | 4 | 4 - 11 mmol/L | [facility] | | | | | SERVICES, CORE | + + + + + | ANION GAP(ALB | 8 | 4 - 11 mmol/L | [facility] | | CORRECTED) | | | SERVICES, CORE | + + + + + + + | Specimen | + + | Blood - Blood | + + + + + | Narrative | Performed At | + + + | GFR is estimated using the MDRD equation recommended by the | [facility] | | National Kidney Disease Education Program. [...] | + + + + + | [facility] | [address] | [place] [address] | | | SERVICES, CORE | [address] | | | + + + + + CAPILLARY BLOOD GLUCOSE (NO CHG), POC (12/08/2018 8:52 PM) + +---------+ + + | Component | Value | Ref Range | Performed At | + +---------+ + + | BLOOD GLUCOSE, POC | 108 (H) | 60 - 99 mg/dL | [facility] | | | | | MARISSA JULIAN OF | | | | | CARE TESTS | + +---------+ + + + + + + + | Performing | Address | City/State/Zipcode | Phone Number | | Organization | | | | + + + + + | [facility] | [address] | [place], [place] | | | IESHA POINT OF CARE | [address] | [address] | | | TESTS | | | | + + + + + MAGNESIUM, PLASMA (12/08/2018 12:56 PM) + +-------+ + + | Component | Value | Ref Range | Performed At | + +-------+ + + | MAGNESIUM,PLASMA | 2.2 | 1.6 - 2.6 mg/dL | [facility] | | | | | SERVICES, CORE | + +-------+ + + + + | Specimen | + + | Blood - Blood | + + + + + + + | Performing | Address | City/State/Zipcode | Phone Number | | Organization | | | | + + + + + | [facility] | [address] | [place] [address] | | | [facility] | [address] | | | + + + + + RENAL FUNCTION SET (NA,K,CL,CO2,BUN,CREAT,GLUC,CA,PHOS,ALB ) (12/08/2018 12:56 PM) + + + + + | Component | Value | Ref Range | Performed At | + + + + + | GLUCOSE, PLASMA | 106 (H) | 70 - 99 mg/dL | [facility] | | (LAB) | | | SADE, CORE | + + + + + | BUN, PLASMA (LAB) | 12 | 6 - 20 mg/dL | [facility] | | | | | SADE, KOKI | + + + + + | CREATININE PLASMA | 0.51 (L) | 0.60 - 1.10 mg/dL | [facility] | | (LAB) | | | SERVICES, CORE | + + + + + | EGFR - | >60 | >60 mL/min | [facility] | | BRAZILIAN | | | SERVICES, CORE | + + + + + | EGFR NON | >60 | >60 mL/min | [facility] | | -BRAZILIAN | | | SERVICES, CORE | + [...] LABORATORY | | (LAB) | | | [facility], [facility] | + + + + + | CALCIUM, PLASMA | 8.6 | 8.6 - 10.2 mg/dL | [facility] | | (LAB) | | | SADE, CORE | + + + + + | CALCIUM(ALB | 9.8 | 8.6 - 10.2 mg/dL | [facility] | | CORRECTED) | | | SADE, [facility] | + + + + + | ALBUMIN, PLASMA | 2.5 (L) | 3.5 - 4.7 g/dL | [facility] | | (LAB) | | | [facility], CORE | + + + [...] [facility] | [address] | [place] [address] | | | KOKI STUART | [address] [...] >60 mL/min | [facility] | | BRAZILIAN | | | SADE, CORE | + + + + + | EGFR NON | >60 | >60 mL/min | [facility] | | -BRAZILIAN | | | SERVICES, CORE | + [...] | | (LAB) | | | SERVICES, [facility] | + + + + + | PHOSPHORUS, PLASMA | 0.5 (LL) | 2.4 - 4.7 mg/dL | [facility] | | (LAB) | | | SERVICES, CORE | + + + + + | POTASSIUM CMNT | No Hemo | | [facility] | | | | | SERVICES, [facility] | + + + + + | ANION GAP | 5 | 4 - 11 mmol/L | [facility] | | | | | SERVICES, [facility] | + + + + + | ANION GAP(ALB | 11 | 4 - 11 mmol/L | [facility] | | CORRECTED) | | | SERVICES, CORE | + + + + + + + | Specimen | + + | Blood - Blood | + + + + + | Narrative | Performed At | + + + | GFR is estimated using the MDRD equation recommended by the | [facility] | | National Kidney Disease Education Program. Estimated GFR | LABORATORY | | Interpretive Information: <60 mL/min/1.73 sq | [facility], CORE | | m Chronic [...] + + + + + | [email or web address] | [address] | [place] [address] | | | SERVICES, KOKI | [address] | | | + + + + + X-RAY PORTABLE CHEST 1 VIEW (12/08/2018 4:58 AM) + + + | Narrative | Performed At | + + + | EXAM: MO CHEST 1 VIEW HISTORY: SoB COMPARISON: Chest [...] Interface - 12/08/2018 10:59 AM PDT EXAM: MO CHEST 1 | | VIEW HISTORY: SoB [...] now presented. | | | |Final signature: Cahrli Maddox MD 12/08/2018 10:58 AM | |Preliminary: [...] 2.0 | 1.6 - 2.6 mg/dL | [facility] | | | | | SERVICES, CORE | + +-------+ + + + + | Specimen | + + | Blood - Blood | + + + + + + + | Performing | Address | City/State/Zipcode | Phone Number | | Organization | | | | + + + + + | [facility] | [address] | [place] [address] | | | KOKI STUART | [address] | | | + + + + + RENAL FUNCTION SET (NA,K,CL,CO2,BUN,CREAT,GLUC,CA,PHOS,ALB ) (12/08/2018 4:29 AM) + + + + + | Component | Value | Ref Range | Performed At | + + + + + | GLUCOSE, PLASMA | 153 (H) | 70 - 99 mg/dL | [facility] | | (LAB) | | | KOKI STURAT | + + + + + | BUN, PLASMA (LAB) | 13 | 6 - 20 mg/dL | [facility] | | | | | KOKI STUART | + + + + + | CREATININE PLASMA | 0.55 (L) | 0.60 - 1.10 mg/dL | [facility] | | (LAB) | | | SERVICES, CORE | + + + + + | EGFR - | >60 | >60 mL/min | [facility] | | BRAZILIAN | | | SERVICES, CORE | + + + + + | EGFR NON | >60 | >60 mL/min | [facility] | | -BRAZILIAN | | | SERVICES, CORE | + [...] POTASSIUM CMNT | No Hemo | | [facility] | | | | | [facility], [facility] | + + + + + | ANION GAP | 5 | 4 - 11 mmol/L | [facility] | | | | | SERVICES, [facility] | + + + + + | ANION GAP(ALB | 9 | 4 - 11 mmol/L | [facility] | | CORRECTED) | | | [facility], [facility] | + + + + + + [...] | + + + + + | [facility] | [address] | [place] [address] | | | KOKI STUART | [address] | | | + + + + + CBC (HEMOGRAM) ONLY (12/08/2018 4:28 AM) + + + + + | Component | Value | Ref Range | Performed At | + + + + + | WHITE CELL COUNT | 11.87 (H) | 3.50 - 10.80 K/cu mm | [facility] | | | | | KOKI [...] 46.2 | 35.1 - 46.3 fL | [facility] | | | | | SERVICES, CORE | + + + + + | PLATELET COUNT | 261 | 150 - 400 K/cu mm | [facility] | | | | | SERVICES, CORE | + + + + + | MPV | 9.3 (L) | 9.7 - 12.3 fL | [facility] | | | | | SERVICES, CORE | + + + + + | NRBC% | 0.0 | 0.0 - 0.3 % | [facility] | | | | | SERVICES, CORE | + + + + + | NR# | 0.00 | 0.00 - 0.02 K/cu mm | [facility] | | | | | KOKI STUART | + + + + + + + | Specimen | + + | Blood - Blood | + + + + + + + | Performing | Address | City/State/Zipcode | Phone Number | | Organization | | | | + + + + + | [facility] | [address] | [place] [address] | | | KOKI STUART | [address] | | | + + + [...] | | | Dereck Rodriguez MD [facility] [address] [facility] | | | [place] [address] | | + + + PROCEDURE NOTE [...] attempt. Midline | | | lot number [id number]; there was excellent blood return. The | [...] At | + + + | [facility] | [facility] DEPT OF | | [facility]chocardi[facility] | CARDIOLOGY | | Laboratory [address] [place] [address], | | | [place] [address] Pt Name: | | | SUSSY LEANDRO ALLRED Study Date/Time 12/07/2018 / 8:45:36 | | | AMMRN: [id number] Most recent | | | prior: 11/26/2018Acc #: [id number] No. | | | previous echos: 1DOB: 1950 68 years Heart | | | Rate: 88 bpmHeight: 64.0 in | | | Blood Pressure: 104/64 mm/HgWeight: 145.0 | | | lb Gender: | | | FBSA: 1.71 m | | | Order ID: [id number] | | | [facility] Gayle Michael [facility] | | | 2:Referring Provider: Dennis Tayloralities Performed: 2D, Color | | | flow, [...] Report | | | electronically signed by: [id number] Kathleen Sam MD (12/07/2018, | | | 4:42:18 PM) Final | | + + + + + | Procedure Note | + + | Interface, Cardiology Results - 12/07/2018 4:[address] [facility] YellowSchedule | | [facility] Echocardiography Laboratory [address] [place] [address] | | [place], [place] [address] Pt Name: SUSSY REEVES | | [place]AL[place] Study Date/Time 12/07/2018 / 8:45:36 AMMRN: [id number] Most | | recent prior: 11/26/2018Acc #: [id number] No. previous echos: 1DOB: | | 1950 68 years Heart Rate: 88 bpmHeight: 64.0 in Blood | | Pressure: 104/64 mm/HgWeight: 145.0 lb Gender: FBSA: | | 1.71 m | | Order ID: [id number] Study Location: KSonographer: [place] | | [facility] 2:Referring Provider: Dennis Patel Performed: 2D, | | Color flow, Spectral [...] and indexed values Report electronically signed by: [id number] | | Kathleen Sam MD (12/07/2018, 4:42:18 [...] | | | |Report electronically signed by: [id number] Kathleen Sam MD (12/07/2018, 4:42:18 PM) | | | | | | | | Final | + + + + + + + | Performing | Address | City/State/Zipcode | Phone Number | | Organization | | | | + + + + + | [facility] | [address] | [place], [place] | | | CARDIOLOGY | [address] | [address] | | + + + + + X-RAY PORTABLE CHEST 1 VIEW (12/07/2018 5:56 AM) + + + | Narrative | Performed At | + + + | EXAM: MO CHEST 1 VIEW HISTORY: SoB COMPARISON: Chest | [facility] | | radiograph from 12/06/2018. Outside PET/CT [...] report as now presented. Final signature: Charli Gutierres | | Frances Maddox MD 12/07/2018 12:18 PM Preliminary: Charli Maddox MD | | | Dictation initiated: Charli Maddox MD 12/07/2018 12:13 PM | | + + + + + | Procedure Note | + + | 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, Radiant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 - 12/07/2018 12:19 PM PDT EXAM: MO CHEST 1 | | VIEW HISTORY: SoB [...] | + + + + + | [facility] | [address] | [place] [address] | | | SERVICES, CORE | [address] | | | + + + + + CBC (HEMOGRAM) ONLY (12/07/2018 2:20 AM) + + + + + | Component | Value | Ref Range | Performed At | + + + + + | WHITE CELL COUNT | 13.40 (H) | 3.50 - 10.80 K/cu mm | [facility] | | | | | SERVICES, CORE | + + + + + | RED CELL COUNT | 2.52 (L) | 4.00 - 5.20 M/cu mm | [facility] | | | | | SERVICES, [...] 0.0 | 0.0 - 0.3 % | [facility] | | | | | SERVICES, [...] [facility] | [address] | [place] [address] | | | [place] STUART | [address] | | | + + + [...] STUART | + +---------+ + + | CREATININE PLASMA | 0.68 | 0.60 - 1.10 mg/dL | [facility] | | (LAB) | | | SERVICES, CORE | + +---------+ + + | EGFR - | >60 | >60 mL/min | [facility] | | [facility] | | | SERVICES, CORE | + +---------+ + + | EGFR NON | >60 | >60 mL/min | [facility] | | -[facility] | | | SERVICES, CORE | + [...] | | (LAB) | | | SERVICES, [facility] | + +---------+ + + | TOTAL CO2, PLASMA | 25 | 21 - 32 mmol/L | [facility] | | (LAB) | | | SERVICES, [facility] | + +---------+ + + | CALCIUM, PLASMA | 7.7 (L) | 8.6 - 10.2 mg/dL | [facility] | | (LAB) | | | SERVICES, CORE | + +---------+ + + | CALCIUM(ALB | 9.2 | 8.6 - 10.2 mg/dL | [facility] | | CORRECTED) | | | [facility] | + +---------+ + + | ALBUMIN, PLASMA | 2.1 (L) | 3.5 - 4.7 g/dL | [facility] | | (LAB) | | | [facility] | + +---------+ + + | PHOSPHORUS, [...] | + + + + + | [facility] | [address] | [place] [address] | | | SERVICES, [place] | [address] | | | + + + + + PROCEDURE NOTE (12/06/2018 7:33 PM)CBC (HEMOGRAM) ONLY (12/06/2018 12:27 PM) + + + + + | Component | Value | Ref Range | Performed At | + + + + + | WHITE CELL COUNT | 12.39 (H) | 3.50 - 10.80 K/cu mm | [facility] | | | | | KOK[facility] [...] | 0.00 - 0.02 K/cu mm | [facility] | | | | | SERVICES, CORE | + + + + + + + | Specimen | + + | Blood - Blood | + + + + + + + | Performing | Address | City/State/Zipcode | Phone Number | | Organization | | | | + + + + + | [facility] | [address] | [place] [address] | | | SERVICES, [place] | [address] | | | + + + + + MAGNESIUM, PLASMA (12/06/2018 6:29 AM) + +-------+ + + | Component | Value | Ref Range | Performed At | + +-------+ + + | MAGNESIUM,PLASMA | 2.1 | 1.6 - 2.6 mg/dL | [facility] | | | | | SERVICES, CORE | + +-------+ + + + + | Specimen | + + | Blood - Blood | + + + + + + + | Performing | Address | City/State/Zipcode | Phone Number | | Organization | | | | + + + + + | [facility] | [address] | [place] [address] | | | SERVICES, CORE | [address] | | | + + + [...] >60 mL/min | [facility] | | [place] | | | SERVICES, CORE | + +---------+ + + | EGFR NON | >60 | >60 mL/min | [facility] | | -[place] | | | SERVICES, CORE | + [...] + + + + + | [facility] | [address] | [place] [address] | | | SERVICES, [place] | [address] | | | + + + + + X-RAY PORTABLE CHEST 1 VIEW (12/06/2018 6:10 AM) + + + | Narrative | Performed At | + + + | EXAM: MO CHEST 1 VIEW HISTORY: SoB COMPARISON: Yesterday [...] Interface - 12/06/2018 8:38 AM PDT EXAM: MO CHEST 1 | | VIEW HISTORY: SoB [...] | 3.50 - 10.80 K/cu mm | [facility] | | | | | SERVICES, CORE | + + + + + | RED CELL COUNT | 2.65 (L) | 4.00 - 5.20 M/cu mm | [facility] | | | | | SERVICES, CORE | + + + + + | HEMOGLOBIN | 8.7 (L) | 12.0 - 16.0 g/dL | [facility] | | | | | SERVICES, CORE | + + + + + | HEMATOCRIT | 27.1 (L) | 36.0 - 46.0 % | [facility] | | | | | SERVICES, CORE | + + + + + | MCV | 102.3 (H) | 80.0 - 100.0 fL | [facility] | | | | | SERVICES, CORE | + + + + + | MCHC | 32.1 | 32.0 - 36.0 g/dL | [facility] | | | | | SERVICES, CORE | + + + + + | RDW SD | 46.1 | 35.1 - 46.3 fL | [facility] | | | | | SERVICES, [...] | + + + + + | [facility] | [address] | [place] [address] | | | SERVICES, CORE | [address] | | | + + + [...] Images archived to | | | institution subpoena server | | + + + X-RAY PORTABLE CHEST 1 VIEW (12/05/2018 5:59 AM) + + + | Narrative | Performed At | + + + | EXAM: MO CHEST 1 VIEW HISTORY: post left thoracotomy, [...] Interface - 12/05/2018 9:53 AM PDT EXAM: MO CHEST 1 | | VIEW HISTORY: post [...] | | site: Radial Catheter size: 3 bolivian x 5 cm Number of | | [...] | 3.50 - 10.80 K/cu mm | [facility] | | | | | SERVICES, CORE | + + + + + | RED CELL COUNT | 3.04 (L) | 4.00 - 5.20 M/cu mm | [facility] | | | | | SERVICES, [...] 45.9 | 35.1 - 46.3 fL | [facility] | | | | | SERVICES, [...] | + + + + + | NRNATALIA# | 0.00 | 0.00 - 0.02 K/cu mm | [facility] | | | | | SADE, KOKI | + + + + + + + | Specimen | + + | Blood - Blood | + + + + + + + | Performing | Address | City/State/Zipcode | Phone Number | | Organization | | | | + + + + + | [facility] | [address] | [place] [address] | | | [place] | [address] | | | + + + [...] + | [facility] | [address] | [place] [address] | | | [facility] | [address] | | | + + + + + RENAL FUNCTION SET (NA,K,CL,CO2,BUN,CREAT,GLUC,CA,PHOS,ALB ) (12/05/2018 1:45 AM) + +---------+ + + | Component | Value | Ref Range | Performed At | + +---------+ + + | GLUCOSE, PLASMA | 119 (H) | 70 - 99 mg/dL | [facility] | | (LAB) | | | [address] | + +---------+ + + | BUN, PLASMA (LAB) | 15 | 6 - 20 mg/dL | [facility] | | | | | [place] [address] | + +---------+ + + | CREATININE PLASMA | 0.94 | 0.60 - 1.10 mg/dL | [facility] | | (LAB) | | | SERVICES, CORE | + +---------+ + + | EGFR - | >60 | >60 mL/min | [facility] | | [place] | | | SERVICES, CORE | + +---------+ + + | EGFR NON | 59 (L) | >60 mL/min | [facility] | | -[place] | | | SERVICES, CORE | + [...] | | (LAB) | | | SERVICES, [facility] | + +---------+ + + | TOTAL CO2, PLASMA | 26 | 21 - 32 mmol/L | [facility] | | (LAB) | | | [facility] | + +---------+ + + | CALCIUM, PLASMA | 7.9 (L) | 8.6 - 10.2 mg/dL | [facility] | | (LAB) | | | SERVICES, CORE | + +---------+ + + | CALCIUM(ALB | 8.9 | 8.6 - 10.2 mg/dL | [facility] | | CORRECTED) | | | SADE, [facility] | + +---------+ + + | ALBUMIN, PLASMA | 2.8 (L) | 3.5 - 4.7 g/dL | [facility] | | (LAB) | | | [facility] | + +---------+ + + | PHOSPHORUS, PLASMA | 3.4 | 2.4 - 4.7 mg/dL | [facility] | | (LAB) | | | SERVICES, CORE | + +---------+ + + | POTASSIUM CMNT | No Hemo | | [facility] | | | | | SERVICES, [...] + + + + + | [facility] | [address] | [place] [address] | | | SERVICES, CORE | [address] | | | + + + + + X-RAY PORTABLE CHEST 1 VIEW (12/04/2018 6:32 PM) + + + | Narrative | Performed At | + + + | EXAM: MO CHEST 1 VIEW HISTORY: Status post left [...] Note | + + | 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, [employer]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 - 12/05/2018 9:54 AM PDT EXAM: MO CHEST 1 | | VIEW HISTORY: Status [...] MD 12/05/2018 9:53 AM | |Preliminary: Charli Palaicos MD | |Dictation initiated: Charli Palacios MD [...] | Range: (75 - 120) sec | SERVICES, CORE | | Heparin levels of 0.35 - 0.7 U/mL | | + + + + + + + + | Performing | Address | City/State/Zipcode | Phone Number | | Organization | | | | + + + + + | [facility] | [address] | [place] [address] | | | [place] | [address] | | | + + + + + CBC (HEMOGRAM) ONLY (12/04/2018 5:56 PM) + + + + + | Component | Value | Ref Range | Performed At | + + + + + | WHITE CELL COUNT | 13.55 (H) | 3.50 - 10.80 K/cu mm | [facility] | | | | | KOKI [...] 45.1 | 35.1 - 46.3 fL | [facility] | | | | | SERVICES, CORE | + + + + + | PLATELET COUNT | 343 | 150 - 400 K/cu mm | [facility] | | | | | SERVICES, CORE | + + + + + | MPV | 8.9 (L) | 9.7 - 12.3 fL | [facility] | | | | | SERVICES, CORE | + + + + + | NRBC% | 0.0 | 0.0 - 0.3 % | [facility] | | | | | SERVICES, CORE | + + + + + | NRBC# | 0.00 | 0.00 - 0.02 K/cu mm | [facility] | | | | | SERVICES, CORE | + + + + + + + | Specimen | + + | Blood - Blood | + + + + + + + | Performing | Address | City/State/Zipcode | Phone Number | | Organization | | | | + + + + + | [facility] | [address] | [place] [address] | | | SERVICES, CORE | [address] [...] >60 mL/min | [facility] | | [place] | | | SADE, CORE | + +---------+ + + | EGFR NON | >60 | >60 mL/min | [facility] | | -B[place]IAN | | | SERVICES, CORE | + [...] | + + + + + | [facility] | [address] | [place] [address] | | | SADE, KOKI | [address] | | | + + + + + CAPILLARY BLOOD GLUCOSE (NO CHG), POC (12/04/2018 5:53 PM) + +---------+ + + | Component | Value | Ref Range | Performed At | + +---------+ + + | BLOOD GLUCOSE, POC | 134 (H) | 60 - 99 mg/dL | [facility] | | | | | MARISSA JULIAN OF | | | | | CARE TESTS | + +---------+ + + + + + + + | Performing | Address | City/State/Zipcode | Phone Number | | Organization | | | | + + + + + | [facility] | [address] | [place], [place] | | | CELIA JULIAN | [address] | [address] | | | TESTS | | | | + + + + + OPERATION RECORD (12/04/2018 4:05 PM) + + | Procedure Note | + + | Manoj Kumar MD - 12/04/2018 4:05 PM PDT Date of Service: 12/04/2018 Attending | | Surgeon:Manoj Kumar MD Police Officer(s):Pritesh Chang | | Bethel Quevedo MD Preoperative [...] ribs were reapproximated using | | multiple purtfv-en-bcgca #2 Vicryl sutures. Serratus closed with #1 Vicryl, | | subcutaneous tissue closed with 2-0 Vicryl, skin closed with 4-0 Vicryl. Sterile | | dressings were applied. A single 28-Spanish chest tube was placed through the inferior [...] 10L and 11L lymph | | nodes.PRITESH Hancock/GOMEZ: 12/04/2018 15:15:41DT: 12/04/2018 16:05:12Job #: | | [id number] | + + CAPILLARY BLOOD GLUCOSE (NO [...] + + | [facility] | [address] | [place], [place] | | | IESHA POINT OF CARE | [facility] | [address] | | | TESTS | | | | + + + + + ABG-FULL ABL, POC (12/04/2018 2:27 PM) + + + + + | Component | Value | Ref Range | Performed At | + + + + + | PH ARTERIAL, POC | 7.38 | 7.37 - 7.44 | [facility] | | | | | MARISSA JULIAN OF | | | | | CARE [...] 3.4 - 5.0 mmol/L | [facility] | | [...] [facility] | [address] | [place], [place] | | | IESHA POINT OF CARE | [facility] | [address] | | | TESTS | | | | + + + + + ABG-FULL ABL, POC (12/04/2018 12:55 PM) + + + + + | Component | Value | Ref Range | Performed At | + + + + + | PH ARTERIAL, POC | 7.41 | 7.37 - 7.44 | [facility] | | | | | MARISSA JULIAN OF | | | | | CARE [...] 12.0 - 16.0 g/dL | [facility] | | POC | | | IESHA POINT OF | | | | | CARE TESTS | + + + + + | O2 SAT ARTERIAL, POC | 99.2 (H) | 92.0 - 98.0 % | [facility] | | [...] 4.1 | 3.4 - 5.0 mmol/L | [facility] | | | | | IESHA, POINT OF | | | | | CARE TESTS | + + + + + | SODIUM, POC | 136 | 134 - 143 mmol/L | [facility] [...] - [facility] | | | | | MARISSA JULINA OF | | | | | CARE TESTS | + + + + + | PAT TEMP ART, POC | 37.0 | | [facility] | | | | | MARISSA JULIAN OF | | | | | CARE TESTS | + + + + + + + | Specimen | + + | Blood - Blood | + + + + + + + | Performing | Address | City/State/Zipcode | Phone Number | | Organization | | | | + + + + + | [facility] | [address] | [place], [place] | | | IESHA POINT OF CARE | [address] | [address] | | | TESTS | | | | + + + + + ABG-FULL ABL, POC (12/04/2018 10:21 AM) + + + + + | Component | Value | Ref Range | Performed At | + + + + + | PH ARTERIAL, POC | 7.36 (L) | 7.37 - 7.44 | [facility] | | | | [...] (H) | 32 - 43 mmHg | [facility] [...] 3.4 - 5.0 mmol/L | [facility] | | [...] | + + + + + | [facility] | [address] | [place], [place] | | | MARISSA JULIAN OF [facility] | [address] | [address] | | | TESTS | | | | + + + + + SURGICAL PATHOLOGY (12/04/2018 9:11 AM) + + + + + | Component | Value | Ref Range | Performed At | + + + + + | Clinical History | 68 year old female with | | [facility] | | | a history of [...] metastatic carcinoma | | | | | (1/) Sales cytokeratin | | | | | [...] node (1/)I. | | | | | Lymph node, level 7, | | | | | biopsy: One lymph node | | | | | negative for metastasis | | | | | (0/1)J. Lung, AP | | | | | window, biopsy: One | | | | | lymph node positive for | | | | | metastatic carcinoma | | | | | (1/)K. Lymph [...] nodes (10/26) | | | | | Largest metastatic [...] (8th edition): | | | | | [id number]: The | | | | | tumor [...] | PathologistPathology, | | | | | [facility] | | | | | [facility] electronic | | | | | signature [...] | LUNG (Lung - All | | [facility] | | | Specimens) SPECIMEN | [...] Description | Received are 18 | | [facility] | | | specimens fresh in | | OF PATHOLOGY | | | containers labeled with | | | | | the patient's name | | | | | (initials JAO) and | | | | | medical record number | | | | | [id number].A. Lymph node, | | | | | [...] | surfaces. | | | | | Rn Lactation sections | | | | | are [...] positive | | | | | density, care support representative | | | | | sectionsP. [...] hilar mass. | | | | | Rn Lactation sections | | | | | are [...] node | | | | | from [id number]: 3.2 cm | | | | | [...] apical mass, | | | | | care support representative sections, | | | | | to include relationship | | | | | with pleura in | | | | | [id number]: Subpleural | | | | | induration, | | | | | care support representative | | | | | [id number]: Uninvolved | | | | | parenchyma, | | | | | care support representative | | | | | [id number]: 1 density | | | | | suggestive of lymph | | | | | node, [id number]: 1 | | | | | density [...] Intraoperative use | Frozen section | | [facility] | | only - Final | [...] | PathologistPathology, | | | | | [facility] | | | | [...] | PathologistPathology, | | | | | [facility] | | | | [...] | PathologistPathology, | | | | | [facility] | | | | [...] | PathologistPathology, | | | | | [facility] | | | | [...] | PathologistPathology, | | | | | [facility] | | | | [...] | PathologistPathology, | | | | | [facility] | | | | [...] | PathologistPathology, | | | | | [facility] | | | | [...] | PathologistPathology, | | | | | [facility] | | | | [...] | PathologistPathology, | | | | | [facility] | | | | [...] | PathologistPathology, | | | | | [facility] | | | | [...] | PathologistPathology, | | | | | [facility] | | | | [...] | PathologistPathology, | | | | | [facility] | | | | [...] | [facility]ologist[facility] | | | | | [facility] | | | | | CampusFrozen section [...] | [facility] | | | | | [facility] | | | | | [place] that point | | | + + [...] | | | | | determined by [facility] | | | | | laboratories. It [...] + + | Performing | Address | [facility] | Phone Number | | Organization | | | | + + + + + | [facility] | [address] | [place] [address] | | | PATHOLOGY | [address] | | | + + + + + FINE NEEDLE ASPIRATE (12/04/2018 8:06 AM) + + + + + | Component | Value | Ref Range | Performed At | + + + + + | Clinical History | 68 year-old woman with a | | [facility] | | | PET-avid left upper | | OF PATHOLOGY | | | lobe nodule. | | | + + + + + | Final Pathologic | A. Lymph node, level 7, | | [facility] | | Diagnosis | ultrasound guided [...] pathology case | | | | | ([id number])]. No | | | | | definite carcinoma cells | | | | | seen are seen in this | | | | | sampling, however see | | | | | case [id number]. Case | | | | | seen by:Kathryn | | | | | Reising, CT(ASCP) - | | | | | CytotechnologistTodd | | | | | MD Steve | | | | | | | | | | Pathology ResidentAaron | | | | | DO [place] | | | | | | | | | | Cytopathology | | | | | FellowMick MD Shaan | | | | | | | | | | | | | | | PathologistPathology, | | | | | [facility] | | | | | [facility] electronic | | | | | [...] Impression | A: Evaluation episode | | [facility] | | | #1: Pass #1-3: [...] | PathologistPathology, | | | | | [facility] | | | | | [place] | | | + + + + + | Procedure Details | A. FNA by clinician. 3 | | [facility] | | | passes yielded fluid [...] | + + + + + | [facility] | [address] | [place] [address] | | | SERVICES, [facility] | | | | | HEALTH + HEALING | | | | + + + + + | [facility] | [address] | [place] [address] | | | PATHOLOGY | [address] | | | + + + + + CAPILLARY BLOOD GLUCOSE (NO CHG), POC (12/04/2018 6:50 AM) + +-------+ + + | Component | Value | Ref Range | Performed At | + +-------+ + + | BLOOD GLUCOSE, POC | 92 | 60 - 99 mg/dL | [facility] | | | | | ADDIE JULIAN | | | | | CARE TESTS | + +-------+ + + + + + + + | Performing | Address | City/State/Zipcode | Phone Number | | Organization | | | | + + + + + | [facility] | [address] | [place], [place] | | | IESHA POINT OF CARE | [address] | [address] | | | TESTS | | | [...] NSCLC, s/p L upper lobectomy - Primary | + + | Malignant neoplasm of bronchus and lung, unspecified site | + + | Neoplasm | + + | Neoplasm of unspecified nature, site unspecified | + + | Gastroesophageal reflux disease, esophagitis presence not specified | + + | Hypothyroidism | + + | Unspecified hypothyroidism | + + | Acute post-operative pain | + + | Dysphagia due to vocal cord paralysis | + + | Postoperative anemia due to acute blood loss | + + | Acute posthemorrhagic anemia | + + | Chronic pain | + + | Other chronic pain | + + | HTN (hypertension) | + + | Unspecified essential hypertension | + + | Hypotension | + + | Hyperglycemia | + + | Other abnormal glucose | + + | Aspiration pneumonitis (HCC) | + + | Pneumonitis due to inhalation of food or vomitus | + + | Leukocytosis | + + | Leukocytosis, unspecified | + + | Acute respiratory distress syndrome (ARDS) (HCC) | + + | Other pulmonary insufficiency, not elsewhere classified, following trauma and surgery | + + | Vocal cord paralysis | + + | Paralysis of vocal cords or larynx, unspecified | + + | Hypophosphatemia | + + | Disorders of phosphorus metabolism | + + | Acute hypokalemia | + + | Hypopotassemia | + + Admitting Diagnoses + + | Diagnosis | + + | Neoplasm | + + Administered Medications + +---------+ + +------+------+ | Medication Order | MAR | Action | Dose | Rate | Site | | | Action | Date | | | | + +---------+ + +------+------+ | acetaminophen (OFIRMEV) IV | New Bag | | 1,000 mg | | | | 1,000 mg 1,000 mg, intravenous, | | 9 23:54 | | | | | EVERY 6 HOURS, 4 doses, First | | PDT | | | | | dose on Sun12/04/18 at 1900, Last | | | | | | | dose on Sun12/05/18 at 1300 | | | | | | + +---------+ + +------+------+ +---------+ + +---+---+ | New Bag | | 1,000 mg | | | | | 9 08:45 | | | | | | PDT | | | | +---------+ + +---+---+ | New Bag | | 1,000 mg | | | | | 9 13:45 | | | | | | PDT | | | | +---------+ + +---+---+ +---+---+ | | | +---+---+ + +-------+ +--------+---+---+ | acetaminophen (TYLENOL) oral | Given | | 650 mg | | | | solution 650 mg 650 mg, feeding | | 9 21:20 | | | | | tube, EVERY 6 HOURS, First dose | | PDT | | | | | on 12/07/18 at 2200, Until | | | | | | | Discontinued | | | | | | + +-------+ +--------+---+---+ +-------+ +--------+---+---+ | Given | | 650 mg | | | | | 9 04:09 | | | | | | PDT | | | | +-------+ +--------+---+---+ | Given | | 650 mg | | | | | 9 10:07 | | | | | | PDT | | | | +-------+ +--------+---+---+ +---+---+ | | | +---+---+ + +-------+ +--------+---+---+ | acetaminophen (TYLENOL) tablet | Given | | 650 mg | | | | 650 mg 650 mg, feeding tube, | | 9 17:49 | | | | | EVERY 6 HOURS, First dose on Sat | | PDT | | | [...] +--------+---+---+ +-------+ +--------+---+---+ | Given | | 650 [...] albumin human (BUMINATE, | New Bag | | 12.5 g | | | | FLEXBUMIN) 5 % injection 12.5 g | | 9 01:16 | | | | | 12.5 g, intravenous, ONCE, 1 | | PDT | | | | | dose, [facility] 12/05/18 at 0115 | | | | | | + +---------+ +--------+---+---+ +---+---+ | | | +---+---+ + +-------+ +--------+---+---+ | albuterol 0.083% | Given | | 2.5 mg | | | | (PROVENTIL,VENTOLIN) 2.5 mg /3 mL | | 9 05:17 | | | | | (0.083 %) nebulizer solution 2.5 | | PDT | | | | | mg 2.5 mg, inhalation, EVERY 6 | | | | | | | HOURS NEEDED, Starting Wed | | | | | | | 12/04/18 at 1819, Until Sun | | | | | | | 12/08/18 at 1212, dyspnea/SOB | | | | | | + +-------+ +--------+---+---+ +-------+ +--------+---+---+ | Given | | 2.5 mg | | | | | 9 16:30 | | | | | | PDT | | | | +-------+ +--------+---+---+ | Given | | 2.5 mg | | | | | 9 08:47 | | | | | | PDT | | | | +-------+ +--------+---+---+ +---+---+ | | | +---+---+ + +-------+ +--------+---+---+ | albuterol 0.083% | Given | | 2.5 mg | | | | (PROVENTIL,VENTOLIN) 2.5 mg /3 mL | | 9 12:17 | | | | | (0.083 %) nebulizer solution 2.5 | | PDT | | | | | mg 2.5 mg, inhalation, EVERY 4 | | | | | | | HOURS NEEDED, Starting Sun | | | | | | | 12/08/18 at 1215, Until Sun | | | | | | | 12/08/18 at 1756, dyspnea/SOB | | | | | | + +-------+ +--------+---+---+ +-------+ +--------+---+---+ | Given | | 2.5 mg | | | | | 9 17:01 | | | | | | PDT | | | | +-------+ +--------+---+---+ +---+---+ | | | +---+---+ + +-------+ +--------+---+---+ | albuterol 0.083% | Given | | 2.5 mg | | | | (PROVENTIL,VENTOLIN) 2.5 mg /3 mL | | 9 05:46 | | | | | (0.083 %) nebulizer solution 2.5 | | PDT | | | | | mg 2.5 mg, inhalation, EVERY 4 | | | | | | | HOURS, First dose on 12/08/18 | | | | | | | at 2000, Until Discontinued | | | | | | + +-------+ +--------+---+---+ +-------+ +--------+---+---+ | Given | | 2.5 mg | | | | | 9 07:57 | | | | | | PDT | | | | +-------+ +--------+---+---+ | Given | | 2.5 mg | | | | | 9 11:38 | | | | | | PDT | | | | +-------+ +--------+---+---+ +---+---+ | | | +---+---+ + +-------+ +--------+---+---+ | albuterol 0.5% | Given | | 2.5 mg | | | | (PROVENTIL,VENTOLIN) 2.5 mg/0.5 | | 9 18:02 | | | | | mL nebulizer solution 2.5 mg 2.5 | | PDT | | | | | mg, [...] +-------+ +--------+---+---+ | amoxicillin-clavulanate | Given | | 875 mg | | | | (AUGMENTIN) 875-125 mg 875 mg | | 9 09:10 | | | | | 875 mg, feeding tube, TWICE | | PDT | | | | | DAILY, 10 doses, First dose on | | | | | | | 12/10/18 at 0900, Last dose on | | | | | | | 12/14/18 at 2100 | | | | | | + +-------+ +--------+---+---+ +-------+ +--------+---+---+ | Given | | 875 mg | | | | | 9 21:20 | | | | | | PDT | | | | +-------+ +--------+---+---+ | Given | | 875 mg | | | | | 9 08:52 | | | | | | PDT | | | | +-------+ +--------+---+---+ +---+---+ | | | +---+---+ + +-------+ + +---+---+ | amoxicillin-clavulanate | Given | | 437.5 mg | | | | (AUGMENTIN) 875-125 mg 875 mg | | 9 21:18 | | | | | 875 mg, oral, TWICE DAILY, 5 | | PDT | | | | | doses, First dose on [facility] 12/12/18 | | | | | | | at 2100, Last dose on [facility] 12/14/18 | | | | | | | at 2100 | | | | | | + +-------+ + +---+---+ +-------+ + +---+---+ | Given | | 437.5 mg | | | | | 9 21:32 | | | | | | PDT | | | | +-------+ + +---+---+ | Given | | 875 mg | | | | | 9 [...] (PF) 0.05 %, | New Bag | | | 6 mL/hr | | | fentaNYL 5 mcg/mL in NaCl 0.9 % | | 9 07:47 | | | | | (NS) epidural infusion epidural, | | PDT | | | | | CONTINUOUS, Starting Jenniffer 12/05/18 | | | | | | | at 0715, Until Sun12/05/18 at | | | | | | | 0807 | | | | | | + +---------+ +---+---------+---+ +---+---+ | | | +---+---+ + + + +---+---------+---+ | bupivacaine (PF) 0.05 %, | Rate/Dos | | | 8 mL/hr | | | fentaNYL 5 mcg/mL in NaCl 0.9 % | e Verify | 9 08:00 | | | | | (NS) epidural infusion epidural, | | PDT | | | | | CONTINUOUS, Starting Jenniffer 12/05/18 | | | | | | | at 0930, Until Sun12/06/18 at | | | | | | | 0816 | | | | | | + + + +---+---------+---+ + + +---+---------+---+ | Rate/Dose Verify | | | 8 mL/hr | | | | 9 09:00 | | | | | | PDT | | | | + + +---+---------+---+ | Rate/Dose Verify | | | 8 mL/hr | | | | 9 10:00 | | | | | | PDT | | | | + + +---+---------+---+ +---+---+ | | | +---+---+ + + + +---+---------+---+ | bupivacaine (PF) 0.05 %, | Rate/Dos | | | 7 mL/hr | | | HYDROmorphone 20 mcg/mL in NaCl | e Change | 9 01:43 | | | | | 0.9 % (NS) epidural infusion | | PDT | | | | | epidural, CONTINUOUS, Starting | | | | | | | 12/04/18 at 1945, Until Jenniffer | | | | | | | 12/05/18 at 0645 | | | | | | + + + +---+---------+---+ + + +---+---------+---+ | Rate/Dose Change | | | 6 mL/hr | | | | 9 06:13 | | | | | | PDT | | | | + + +---+---------+---+ | Rate/Dose Verify | | | 6 mL/hr | | | | 9 07:00 | | | | | | PDT | | | | + + +---+---------+---+ +---+---+ | | | +---+---+ + + + +---+---------+---+ | bupivacaine 0.05 | Rate/Dos | | | 9 mL/hr | | | %-HYDROmorphone 20 mcg/mL | e Verify | 9 06:00 | | | | | epidural infusion epidural, | | PDT | | | | | CONTINUOUS, Starting Sun12/06/18 | | | | | | | at 0900, Until 12/09/18 at | | | | | | | 1445 | | | | | | + + + +---+---------+---+ + + +---+---------+---+ | Rate/Dose Verify | | | 9 mL/hr | | | | 9 08:00 | | | | | | PDT | | | | + + +---+---------+---+ | Rate/Dose Verify | | | 9 mL/hr | | | | 9 09:00 | | | | | | PDT | | | | + + +---+---------+---+ +---+---+ | | | +---+---+ + +-------+ +--------+---+---+ | buPROPion (WELLBUTRIN) tablet | Given | | 100 mg | | | | 100 mg 100 mg, feeding tube, | | 9 16:41 | | | | | THREE TIMES DAILY, First dose on | | PDT | | | | | 12/08/18 at 1600, Until | | | | | | | Discontinued | | | | | | + +-------+ +--------+---+---+ +-------+ +--------+---+---+ | Given | | 100 mg | | | | | 9 21:20 | | | | | | PDT | | | | +-------+ +--------+---+---+ | Given | | 100 mg | | | | | 9 08:52 | | | | | | PDT | | | | +-------+ +--------+---+---+ +---+---+ | | | +---+---+ + +-------+ +--------+---+---+ | buPROPion (WELLBUTRIN) tablet | Given | | 100 mg | | | | 100 mg 100 mg, oral, THREE TIMES | | 9 16:03 | | | | | DAILY, First dose on [facility] 12/12/18 | | PDT | | | | | at 1600, Until Discontinued | | | | | | + +-------+ +--------+---+---+ +-------+ +--------+---+---+ | Given | 4/26/201 | 100 mg | | | | [...] gram in dextrose | New Bag | | 2 g | | | | (RTU) 2 g, intravenous, EVERY 8 | | 9 21:47 | | | | | HOURS, 2 doses, First dose on | | PDT | | | | | 12/04/18 at 2100, Last dose on | | | | | | | Jenniffer 12/05/18 at 0500 | | | | | | + +---------+ +-----+---+---+ +---------+ +-----+---+---+ | New Bag | | 2 g | | | | | 9 04:34 | | | | | | PDT | | | | +---------+ +-----+---+---+ +---+---+ | | | +---+---+ + + + + + +---+ | dextrose 5%-NaCl 0.45% IV | Rate/Dos | | 25 mL/hr | 25 mL/hr | | | infusion 25 mL/hr, intravenous, | e Verify | 9 07:00 | | | | | CONTINUOUS, Starting 12/06/18 | | PDT | | | | | at 2200, Until 12/07/18 at | | | | | | | 1017 | | | | | | + + + + + +---+ + + + + +---+ | Rate/Dose Verify | | 25 mL/hr | 25 mL/hr | | | | 9 08:00 | | | | | | PDT | | | | + + + + +---+ | Rate/Dose Verify | | 25 mL/hr | 25 mL/hr | | | | 9 09:00 | | | | | | PDT [...] | famotidine (PEPCID) injection | Given | | 20 mg | | | | 20 mg 20 mg, intravenous, TWICE | | 9 08:23 | | | | | DAILY, First dose on Sun12/04/18 | | PDT | | | | | at 2300, Until Discontinued | | | | | | + +-------+ +-------+---+---+ +-------+ +-------+---+---+ | Given | | 20 mg | | | | | 9 20:36 | | | | | | PDT | | | | +-------+ +-------+---+---+ | Given | | 20 mg | | | | | 9 09:28 | | | | | | PDT | | | | +-------+ +-------+---+---+ +---+---+ | | | +---+---+ + +-------+ +-------+---+---+ | famotidine (PEPCID) tablet 20 | Given | | 20 mg | | | | mg 20 mg, feeding tube, ONCE, 1 | | 9 17:49 | | | | | dose, 12/07/18 at 1645 | | PDT | | | | + +-------+ +-------+---+---+ +---+---+ | | | +---+---+ + +-------+ +--------+---+---+ | fentaNYL (SUBLIMAZE) injection | Given | | 50 mcg | | | | 25-50 mcg 25-50 mcg, | | 9 16:06 | | | | | intravenous, POSTPROCEDURE PRN, 8 | | PDT | | | | | doses, Starting 12/04/18 at | | | | | | | 1521, Until Sun12/04/18 at 1734, | | | | | | | severe pain while in Phase I | | | | | | | Recovery | | | | | | + +-------+ +--------+---+---+ +-------+ +--------+---+---+ | Given | | 50 mcg | | | | | 9 16:11 | | | | | | PDT | | | | +-------+ +--------+---+---+ +---+---+ | | | +---+---+ + +-------+ +-------+---+---+ | furosemide (LASIX) injection 20 | Given | | 20 mg | | | | mg 20 mg, intravenous, ONCE, 1 | | 9 05:12 | | | | | dose, 12/07/18 at 0545 | | PDT | | | | + +-------+ +-------+---+---+ +---+---+ | | | +---+---+ + +-------+ +-------+---+---+ | furosemide (LASIX) injection 40 | Given | | 40 mg | | | | mg 40 mg, intravenous, ONCE, 1 | | 9 16:24 | | | | | dose, [place] 12/08/18 at 1645 | | PDT | | | | + +-------+ +-------+---+---+ +---+---+ | | | +---+---+ + +-------+ +--------+---+---+ | HYDROmorphone (DILAUDID) | Given | | 0.5 mg | | | | injection 0.2-0.5 mg 0.2-0.5 mg, | | 9 16:22 | | | | | intravenous, POSTPROCEDURE PRN, | | PDT | | | [...] mg | | | | | 9 16:34 | | | | | | PDT | | | | +-------+ +--------+---+---+ | Given | | 0.5 mg | | | | | 9 16:49 | | | | | | PDT [...] injection 0.5-1 mg 0.5-1 mg, | | 9 18:17 | | | | | intravenous, EVERY 2 HOURS | | PDT | | | | | NEEDED, Starting Sun12/04/18 at | | | | | | | 1804, Until Sun12/04/18 at 2051, | | | | | | | severe pain | | | | | | + +-------+ +--------+---+---+ +---+---+ | | | +---+---+ + +---------+ + + +---+ | lactated ringers IV 50 mL/hr, | New Bag | | 75 mL/hr | 75 mL/hr | | | intravenous, CONTINUOUS, Starting | | 9 18:31 | | | | | 12/04/18 at 1745, Until Sat | | PDT | | | | | 12/07/18 at 1017 | | | | | | + +---------+ + + +---+ + + + + +---+ | Rate/Dose Change | | 50 mL/hr | 50 mL/hr | | | | 9 19:46 | | | | | | PDT | | | | + + + + +---+ +---+---+ | | | +---+---+ + +---------+ +--------+---+---+ | lactated ringers IV 500 mL, | New Bag | | 500 mL | | | | intravenous, ONCE, 1 dose, Wed | | 9 20:10 | | | | | 12/04/18 at 2030 | | PDT | | | | + +---------+ +--------+---+---+ +---+---+ | | | +---+---+ + + + +--------+---+---+ | lactated ringers IV 500 mL, | Bolus | | 500 mL | | | | intravenous, ONCE, 1 dose, Wed | from | 9 20:15 | | | | | 12/04/18 at 2045 | Same Bag | PDT | | | | + + + +--------+---+---+ +---+---+ | | | +---+---+ + + + +--------+---+---+ | lactated ringers IV 250 mL, | Bolus | | 250 mL | | | | intravenous, ONCE, 1 dose, Wed | from | 9 20:55 | | | | | 12/04/18 at 2100 | Same Bag | PDT | | | | + + + +--------+---+---+ +---+---+ | | | +---+---+ + +---------+ + +---+---+ | lactated ringers IV 1,000 mL, | New Bag | | 1,000 mL | | | | intravenous, ONCE, 1 dose, [facility] | | 9 06:53 | | | | | 12/05/18 at 0700 | | PDT | | | | + +---------+ + +---+---+ +---+---+ | | | +---+---+ + +---------+ + +---+---+ | lactated ringers IV 1,000 mL, | New Bag | | 1,000 mL | | | | intravenous, ONCE, 1 dose, [facility] | | 9 09:13 | | | | | 12/05/18 at 0930 | | PDT | | | | + +---------+ + +---+---+ +---+---+ | | | +---+---+ + +---------+ + +---+---+ | lactated ringers IV 1,000 mL, | New Bag | | 1,000 mL | | | | intravenous, ONCE, 1 dose, [facility] | | 9 12:30 | | | | | 12/05/18 at 1215 | | PDT | | | | + +---------+ + +---+---+ +---+---+ | | | +---+---+ + +---------+ +--------+---+---+ | lactated ringers IV 500 mL, | New Bag | | 500 mL | | | | intravenous, ONCE, 1 dose, Fri | | 9 21:54 | | | | | 12/06/18 at 2130 | | PDT | | | | + +---------+ +--------+---+---+ +---+---+ | | | +---+---+ + +-------+ +--------+---+---+ | levothyroxine injection 25 mcg | Given | | 25 mcg | | | | 25 mcg, intravenous, DAILY, | | 9 09:28 | | | | | First dose on 12/07/18 at | | PDT | | | | | 0900, Until Discontinued | | | | | | + +-------+ +--------+---+---+ +---+---+ | | | +---+---+ + +-------+ +--------+---+---+ | levothyroxine tablet 50 mcg 50 | Given | | 50 mcg | | | | mcg, feeding tube, BEFORE | | 9 05:46 | | | | | BREAKFAST, First dose on Sun | | PDT | | | | | 12/08/18 at 0630, Until | | | | | | | Discontinued | | | | | | + +-------+ +--------+---+---+ +-------+ +--------+---+---+ | Given | | 50 mcg | | | | | 9 06:34 | | | | | | PDT | | | | +-------+ +--------+---+---+ | Given | | 50 mcg | | | | | 9 06:34 | | | | | | PDT [...] HOURS, First dose on Wed | | PDT | | | [...] lidocaine (XYLOCAINE) 10 mg/mL | Given | | 1 mL | | | | (1 %) injection INTRAPROCEDURE | | 9 19:30 | | | | | PRN, Starting 12/04/18 at | | PDT | | | | | 1930, Until Discontinued | | | | | | + +-------+ +------+---+---+ +-------+ +------+---+---+ | Given | | 1 mL | | | | | 9 19:31 | | | | | | PDT | | | | +-------+ +------+---+---+ +---+---+ | | | +---+---+ + +-------+ +------+---+ + | lidocaine (XYLOCAINE) 10 mg/mL | Given | | 1 mL | | Left Arm | | (1 %) injection INTRAPROCEDURE | | 9 02:12 | | | | | PRN, Starting [facility] 12/05/18 at | | PDT | | | | | 0212, Until [facility] 12/05/18 at 0212 | | | | | | + +-------+ +------+---+ + +---+---+ | | | +---+---+ + +-------+ +------+---+--------+ | lidocaine (XYLOCAINE) 10 mg/mL | Given | | 1 mL | | Right | | (1 %) injection INTRAPROCEDURE | | 9 02:41 | | | Arm | | PRN, Starting [facility] 12/05/18 at | | PDT | | | | | 0241, Until [facility] 12/05/18 at 0245 | | | | | | + +-------+ +------+---+--------+ +-------+ +---+---+---+ | Given | | | | | | | 9 02:45 | | | | | | PDT | | | | +-------+ +---+---+---+ +---+---+ | | | +---+---+ + +-------+ +--------+---+---+ | lidocaine-EPINEPHrine | Given | | 1.5 mL | | | | (XYLOCAINE WITH EPINEPHRINE) 2 | | 9 19:39 | | | | | %-1:100,000 injection | | PDT | | | | | INTRAPROCEDURE PRN, Starting Wed | | | | | | | 12/04/18 at 1939, Until | | | | | | | Discontinued | | | | | | + +-------+ +--------+---+---+ +---+---+ | | | +---+---+ + +-------+ +--------+---+---+ | LORazepam (ATIVAN) injection | Given | | 0.5 mg | | | | 0.5 mg 0.5 mg, intravenous, | | 9 08:11 | | | | | ONCE, 1 dose, [facility] 12/05/18 at 0830 | | PDT | | | | + +-------+ +--------+---+---+ +---+---+ | | | +---+---+ + +---------+ +-----+---+---+ | magnesium sulfate in water IV | New Bag | | 2 g | | | | (RTU) 2 g 2 g, intravenous, | | 9 00:15 | | | | | NEEDED, Starting 12/07/18 at | | PDT | | | | | 2333, [...] | nalbuphine (NUBAIN) injection | Given | | 2.5 mg | | | | 2.5 mg 2.5 mg, intravenous, | | 9 13:35 | | | | | EVERY 15 MINUTES NEEDED, | | PDT | | | | | Starting Sun12/04/18 at 1903, | | | | | | | Until Sun12/09/18 at 1445, | | | | | | | itching, persistent | | | | | | | nausea/vomiting 30 min following | | | | | | | ondansetron administration | | | | | | + +-------+ +--------+---+---+ +-------+ +--------+---+---+ | Given | | 2.5 mg | | | | | 9 00:01 | | | | | | PDT | | | | +-------+ +--------+---+---+ | Given | | 2.5 mg | | | | | 9 02:36 | | | | | | PDT [...] | omeprazole (PRILOSEC) oral | Given | | 20 mg | | | | suspension (compound) 20 mg 20 | | 9 05:52 | | | | | mg, feeding tube, BEFORE | | PDT | | | | | BREAKFAST, First dose on Mon | | | | | | | 12/09/18 at 0630, Until | | | | | | | Discontinued | | | | | | + +-------+ +-------+---+---+ +-------+ +-------+---+---+ | Given | | 20 mg | | | | | 9 06:34 | | | | | | PDT | | | | +-------+ +-------+---+---+ | Given | | 20 mg | | | | | 9 06:34 | | | | | | PDT [...] (ROXICODONE) tablet 10-20 mg | | 9 21:20 | | | | | 10-20 mg, feeding tube, EVERY 4 | | PDT | | | | | HOURS NEEDED, Starting Mon | | | | | | | 12/09/18 at 1004, Until [facility] | | | | | | | 12/12/18 at 1241, severe pain | | | | | | + +-------+ +-------+---+---+ +-------+ +-------+---+---+ | Given | | 20 mg | | | | | 9 04:09 | | | | | | PDT | | | | +-------+ +-------+---+---+ | Given | | 20 mg | | | | | 9 08:53 | | | | | | PDT [...] perflutren lipid microspheres | IV Push | | 1.5 mL | | | | (DEFINITY) injection 1.5 mL 1.5 | | 9 09:12 | | | | | mL, intravenous, PROCEDURE ONCE, | | PDT | | | | | 1 dose, 12/07/18 at 0915 | | | | | | + +---------+ +--------+---+---+ +---+---+ | | | +---+---+ + + + + +--------+---+ | PHENYLEPHrine 25 mg/250 mL (0.1 | Rate/Dos | | 0.6 | 20.88 | | | mg/mL) IV infusion (ADC) 0.1-2 | e Change | 9 15:00 | mcg/kg/m | mL/hr | | | mcg/kg/min | | PDT | in | | | | 58 kg (3.48-69.6 mL/hr), | | | | | | | intravenous, CONTINUOUS, Starting | | | | | | | [facility] 12/05/18 at 0415, Until Fri | | | | | | | 12/06/18 at 0640 | | | | | | + + + + +--------+---+ + + + +--------+---+ | Rate/Dose Change | | 0.4 | 13.92 | | | | 9 15:20 | mcg/kg/m | mL/hr | | | | PDT | in | | | + + + +--------+---+ | Rate/Dose Change | | 0.2 | 6.96 | | | | 9 15:40 | mcg/kg/m | mL/hr | | | [...] | polyethylene glycol (MIRALAX) | Given | | 34 g | | | | packet 34 g 34 g, feeding tube, | | 9 20:18 | | | | | THREE TIMES DAILY NEEDED, | | PDT | | | | | Starting 12/07/18 at 1614, | | | | | | | Until [facility] 12/12/18 at 0714, 1st | | | | | | | line - for no BM for 2 days | | | | | | + +-------+ +------+---+---+ +-------+ +------+---+---+ | Given | | 34 g | | | | | 9 09:38 | | | | | | PDT | | | | +-------+ +------+---+---+ | Given | | 34 g | | | | | 9 10:55 | | | | | | PDT | | | | +-------+ +------+---+---+ +---+---+ | | | +---+---+ + +-------+ +--------+---+---+ | potassium & sodium phosphates | Given | | 500 mg | | | | (K PHOS NEUTRAL) tablet 500 mg | | 9 09:37 | | | | | 500 mg, feeding tube, TWICE | | PDT | | | | | DAILY, 2 doses, First dose on Tue | | | | | | | 12/10/18 at 0900, Last dose on | | | | | | | 12/10/18 at 2100 | | | | | | + +-------+ +--------+---+---+ +-------+ +--------+---+---+ | Given | | 500 mg | | | | | 9 21:19 | | | | | | PDT | | | | +-------+ +--------+---+---+ +---+---+ | | | +---+---+ + +-------+ +--------+---+---+ | potassium chloride (KLOR-CON) | Given | | 20 mEq | | | | packet 20 mEq 20 mEq, feeding | | 9 16:23 | | | | | tube, ONCE, 1 dose, 12/08/18 | | PDT | | | | | at 1645 | | | | | | + +-------+ +--------+---+---+ +---+---+ | | | +---+---+ + +-------+ +--------+---+---+ | potassium chloride (KLOR-CON) | Given | | 20 mEq | | | | packet 20-40 mEq 20-40 mEq, | | 9 02:04 | | | | | feeding tube, NEEDED, Starting | | PDT | | | | [...] +--------+---+---+ +-------+ +--------+---+---+ | Given | | 40 mEq | | | | | 9 13:45 | | | | | | PDT | | | | +-------+ +--------+---+---+ | Given | | 20 mEq | | | | | 9 15:47 | | | | | | PDT | | | | +-------+ +--------+---+---+ +---+---+ | | | +---+---+ + +-------+ +--------+---+---+ | potassium chloride (KLOR-CON) | Given | | 40 mEq | | | | packet 40 mEq 40 mEq, feeding | | 9 00:24 | | | | | tube, ONCE, 1 dose, 12/08/18 | | PDT | | | | | at 0015 | | | | | | + +-------+ +--------+---+---+ +---+---+ | | | +---+---+ + +---------+ +--------+---+---+ | potassium chloride IV | New Bag | | 20 mEq | | | | (peripheral line) 20 mEq 20 mEq, | | 9 11:04 | | | | | intravenous, ONCE, 1 dose, Fri | | PDT | | | | | 12/06/18 at 1100 | | | | | | + +---------+ +--------+---+---+ +---+---+ | | | +---+---+ + +---------+ +---------+---+---+ | potassium phosphate IV 30 mmol | New Bag | | 30 mmol | | | | 30 mmol, intravenous, ONCE, 1 | | 9 08:11 | | | | | dose, 12/08/18 at 0645 | | PDT | | | | + +---------+ +---------+---+---+ +---+---+ | | | +---+---+ + +-------+ +---------+---+---+ | potassium, sodium phosphates | Given | | 2 | | | | (NEUTRA-PHOS, PHOS-NAK) | | 9 11:33 | packets | | | | 280-160-250 mg packet 2 packet 2 | | PDT | | | | | packet, feeding tube, FOUR TIMES | | | | | | | DAILY, First dose on 12/08/18 | | | | | | | at 1045, Until Discontinued | | | | | | + +-------+ +---------+---+---+ +---+---+ | | | +---+---+ + +-------+ + +---+---+ | senna-docusate (SENOKOT S) | Given | | 1 tablet | | | | 8.6-50 mg 1 tablet 1 tablet, | | 9 09:37 | | | | | feeding tube, TWICE DAILY, First | | PDT | | | | | dose on 12/07/18 at 2100, | | | | | | | Until Discontinued | | | | | | + +-------+ + +---+---+ +-------+ + +---+---+ | Given | | 1 tablet | | | | | 9 21:20 | | | | | | PDT | | | | +-------+ + +---+---+ | Given | | 1 tablet | | | | | 9 10:55 | | | | | | PDT [...] % (NS) IV | New Bag | | 500 mL | | | | infusion 500 mL, intravenous, | | 9 03:00 | | | | | ONCE, 1 dose, [facility] 12/05/18 at 0345 | | PDT | | | | + +---------+ +--------+---+---+ +---+---+ | | | +---+---+ + +---------+ +---------+ +---+ | sodium glycerophosphate | New Bag | | 15 mmol | 25 mL/hr | | | (GLYCOPHOS) IV 15 mmol 15 mmol, | | 9 09:28 | | | | | intravenous, ONCE, 1 dose, Sat | | PDT | | | | | 12/07/18 at 0915 | | | | | | + +---------+ +---------+ +---+ +---+---+ | | | +---+---+ + +---------+ +---------+---+---+ | sodium glycerophosphate | New Bag | | 30 mmol | | | | (GLYCOPHOS) IV 30 mmol 30 mmol, | | 9 13:09 | | | | | intravenous, ONCE, 1 dose, Sun | | PDT | | | | | 12/08/18 at 0645 | | | | | | + +---------+ +---------+---+---+ +---+---+ | | | +---+---+ + +---------+ +---------+---+---+ | sodium glycerophosphate | New Bag | | 45 mmol | | | | (GLYCOPHOS) IV 45 mmol 45 mmol, | | 9 14:58 | | | | | intravenous, NEEDED, Starting | | PDT | | | | [...] (MAXZIDE) 18.75-12.5 mg oral | | 9 10:42 | | | | | dose 1 each 1 each, feeding | | PDT | | | | | tube, DAILY, First dose on Sun | | | | | | | 12/08/18 at 1999, Until | | | | | | | Discontinued | | | | | | + +-------+ +--------+---+---+ +-------+ +--------+---+---+ | Given | | 1 each | | | | | 9 10:56 | | | | | | PDT | | | | +-------+ +--------+---+---+ | Given | | 1 each | | | | | 9 10:08 | | | | | | PDT [...]
--- OUTSIDE RECORDS SUMMARY | ~2018-12-15 | XMS | Encounter Summary ---
Demographics + + + | Address | [address] | | | [place] [address] | + + + | Home Phone | | + + + | Preferred Language | Unknown | + + + | Marital Status | Single | + + + | Sabianism Affiliation | NRP | + + + | Race | White | + + + | Ethnic Group | Not or | + + + Author + + + | Author | [facility] | + + + | Organization | [facility] | + + + | Address | [...] Team Providers + +------+ + | Care Link Trainer Teacher Name | Role | Phone | [...] 2019 | erpretation | Lab at [facility] [address] | | (Primary Dx) | | | | [address] | | | | | | [address] Mailcode: | | | | | | [address] | | | | | | [place], | | | | | | [place] [address] | | | | | | [phone] | | | +--------+ + + + [...] + + + as of this encounter Progress Notes Emery Calderón MD - 12/02/2018 3:55 PM PDT Refer to PFT report.in this encounter Plan of Treatment +--------+---------+ + + + | Date | Type | Specialty | Care Team | Description | +--------+---------+ + + + | 12/20/ | Office | Thoracic Surgery | Manoj Kumar MD | | | 2019 | Visit | | [address] | | | | | | [address] | | | | | | [place], [place] | | | | | | [address] | | | | | | [phone] | | | | | | | | +--------+---------+ + + + as of this encounter Procedures + +--------+ + + + | Procedure Name | Priori | Date/Time | Associated Diagnosis | Comments | | | ty | | | | + +--------+ + + + | AK DIFFUSING | Routin | 12/02/2018 | Dyspnea on | | | CAPACITY | e | 3:55 PM | exertion | | | | | PDT | | | + +--------+ + + + | AK SPIROMETRY TEST | Routin | 12/02/2018 | [...] +--------+ + + + in this encounter Visit Diagnoses + + | Diagnosis | + + | Dyspnea on exertion - Primary | + + | Other dyspnea and respiratory abnormality | + +
--- OUTSIDE RECORDS SUMMARY | ~2018-12-15 | XMS | Encounter Summary ---
Demographics + + + | Address | [address] | | | [place] [address] | + + + | Home Phone | | + + + | Preferred Language | Unknown | + + + | Marital Status | Single | + + + | Mu-Ism Affiliation | NRP | + + + | Race | White | + + + | Ethnic Group | Not or | + + + Author + + + | Author | [facility] | + + + | Organization | [facility] | + + + | [...] Providers + +------+ + | Care Mail Order Biller Name | Role | Phone | + +------+ + | Lauryn Stuart | PCP | | + +------+ + Encounter Details +--------+ + + + + | Date | Type | Department | Care Team | Description | +--------+ + + + + | 12/07/ | Procedure | [facility] | | | | 2019 | Pass | [facility] | | | | | | Admitting Desk | | | | | | Located on the 9th | | | | | | floor [address] [facility] | | | | | | [facility] | | | | | | [place], [place] | | | | | | [address] | | | +--------+ + + + [...] [address] | | | | | | [place] | | | | | | [address] | | | | | | [phone] | | | | | | | | +--------+---------+ + + + as of this encounter Visit Diagnoses Not on filein this encounter
--- OUTSIDE RECORDS SUMMARY | ~2018-12-15 | XMS | Encounter Summary ---
Demographics + + + | Address | [address] | | | [place] [address] | + + + | Home Phone | | + + + | Preferred Language | Unknown | + + + | Marital Status | Single | + + + | Congregation Affiliation | NRP | + + + [...] Team Providers + +------+ + | Care Shuttle Truck Driver Name | Role | Phone [...] | | | | Medicine at | [facility] | | | | | Physicians [address] | Road [place], [place] | | | | | [address] [facility] | [address] | | | | | [facility] | | | | | | Mailcode: [address] | | | | | | [facility] | | | | | | [address] [place] [address] | | | | | | [address] | | | | | | [phone] | | | +--------+ + + + [...] [address] | | | | | | [place] | | | | | | [address] | | | | | | [phone] | | | | | | | | +--------+---------+ + + + as of this encounter Visit Diagnoses Not on filein this encounter"
--- OUTSIDE RECORDS SUMMARY | ~2018-12-15 | XMS | Encounter Summary ---
Demographics + + + | Address | [address] | | | [place] [address] | + + + | Home Phone | | + + + | Preferred Language | Unknown | + + + | Marital Status | Single | + + + | Church Affiliation | NRP | + + + | Race | White | + + + | Ethnic Group | Not or | + + + Author + + + | Author | [facility] | + + + | Organization | [facility] | + + + | Address [...] Team Providers + +------+ + | Care Merchandising Manager Name | Role | Phone | [...] | | | | at [facility] [address] | [address] | | | | | [address] Mailcode: | [place], [place] | | | | | [address] [place] [address] | [address] | | | | | [facility] | | | | | | [place], [place] | | | | | | [address] | | | | | | [phone] | | | +--------+ + + + [...] [address] | | | | | | [place], [place] | | | | | | [address] | | | | | | [phone] | | | | | | | | +--------+---------+ + + + as of this encounter Visit Diagnoses Not on filein this encounter
--- OUTSIDE RECORDS SUMMARY | ~2018-12-15 | XMS | Encounter Summary ---
Demographics + + + | Address | [address] | | | [place] [address] | + + + | Home Phone | | + + + | Preferred Language | Unknown | + + + | Marital Status | Single | + + + | Shinto Affiliation | NRP | + + + | Race | White | + + + | Ethnic Group | Not or | + + + Author + + + | Author | [facility] | + + + | Organization | [facility] | + + + | [...] Team Providers + +------+ + | Care Counter Stacker Name | Role | Phone | + [...] + + | 12/04/ | Hospital | [facility] [address] | Manoj Kumar MD | | | 2019 - | Encounter | [address] | [address] | | | | | [id number] [facility] | [address] | | | 12/14/ | | [facility], | [place], [place] | | | 2019 | | [place] [address] | [address] | | | | | [phone] | [phone] | | | | | | | [...] Discharge Medications: Sussy Allred Home Medication Instructions ABRAHAN:[id number] Printed on:12/13/18 2769 Medication Information acetaminophen 325 mg oral tablet [...] at 12/14/18926 Last data filed at 12/14/18 0704 Gross per 24 hour Intake 885 ml [...] Care Everywhere.Lung Resection: Post-op (Christiano rubio)Mediastinoscopy: Pre-op (Italian)in this encounter Medications at Time of Discharge [...] PDTLeft chest tube removed. Keena Myles, MYRNA -COSMETIC SALES ASSISTANT - 12/13/2018 8:11 AM PDT ENT SPEECH [...] concerns about eating, drinking. DIETARY STATUS: [facility] soft. Ate steelhead, veggies, rice and [...] Voice clear, breathing comfortably. No further acute COSMETIC SALES ASSISTANT needs. PLAN: 1. ADAT back to regular diet. Pills by mouth okay - in liquids or purees as she wishes. -Aspiration precautions - upright with all PO, single small bites/sips, one bite/sip at a time -L head-turn + chin-tuck is fine if patient finds it helpful with liquids 2. TFs have been discontinued 3. ENT COSMETIC SALES ASSISTANT will sign-off. Patient can follow-up with us as outpatient in clinic with Dr. Jose arce as needed. Keena Myles MS, [facility]-COSMETIC SALES ASSISTANT Speech-Language Pathologist [facility] Dept. of Otolaryngology, [address] [place] [address] Pager: [phone] Silvana Quevedo MD - 12/13/2018 7:11 AM PDTFormatting of this note may be different from the original. Thoracic Surgery Brief Inpatient Progress Note Patient name: SUSSY ALLRED Attending: Manoj Kumar MD Procedure day: 9 Procedure: Left thoracotomy, CODY lobectomy with bronchial and PA reconstruction 24 hour events: - Remains on NC, doing well, tolerating [facility] soft diet and diet, no [...] mechanical soft diet. Tube feeds off. Plan (oosl-ox-tlepyllt issues): - Aspiration pneumonitis: Resolved - Hypophosphatemia: [...] Stacy Quevedo MD Cardiothoracic Surgery Fellow Pager: [phone] Keena Myles, CCC-COSMETIC SALES ASSISTANT - 12/12/2018 12:22 PM PDT ENT SPEECH [...] may not be indicated until 6 weeks [facility] ent. DIETARY STATUS: Purees and any [...] call. Recommend diet upgrade to [facility] soft and any liquids for [...] of TFs to promote appetite 3. ENT COSMETIC SALES ASSISTANT will continue to follow. Please page [phone] as needed. Keena Myles MS, [facility]-COSMETIC SALES ASSISTANT Speech-Language Pathologist [facility] Dept. of Otolaryngology, [address] [facility] [place] [address] Pager: [phone] Silvana Quevedo MD - 12/12/2018 7:53 AM [...] a PEG tube for nutri tion. Plan (zshk-hd-hmxwkqcd issues): - Aspiration pneumonitis: Productive sputum, augmentin [...] Stacy Quevedo MD Cardiothoracic Surgery Fellow Pager: [phone] Keena Myles, [facility]-COSMETIC SALES ASSISTANT - 12/11/2018 2:44 PM PDT ENT SPEECH [...] The patient was evaluated in the [facility] 10th floor Radiology suite & [...] re: decrease or discontinue TFs 3. ENT COSMETIC SALES ASSISTANT will follow-up on morning. [place] page [phone] as needed. Keena Myles MS, CCC-COSMETIC SALES ASSISTANT Speech-Language Pathologist [facility] Dept. of Otolaryngology, [address] [facility] [address] Pager: [phone] Keena Myles, CCC-COSMETIC SALES ASSISTANT - 12/11/2018 10:26 AM PDT ENT SPEECH [...] to improve and tolerate PO. 4. ENT COSMETIC SALES ASSISTANT [place] [phone] [place] [phone] any time with questions or concer ns. Keena Myles MS, CCC-COSMETIC SALES ASSISTANT Speech-Language Pathologist [facility] Dept. of Otolaryngology, [address] [place] [address] Pager: [phone] Silvana Quevedo MD - 12/11/2018 8:24 AM [...] PEG tube and stric t NPO. Plan (zrcl-ij-cowxofyv issues): - Aspiration pneumonitis: Productive sputum, augmentin [...] Stacy Quevedo MD Cardiothoracic Surgery Fellow Pager: [phone] Meggan Downs, COSMETIC SALES ASSISTANT - 12/10/2018 4:21 PM PDTINPATIENT ENT SPEECH PROGRESS NOTE: Order received, chart reviewed. Patient with history of "large volume aspiration", even un clear. Recommend objective swallow evaluation in Radiology Sunday, 12/11 prior to initiat ion of p.o. Intake. Recommend: NPO, all nutrition/hydration/medication via PEG Plan: [facility] Sunday. Meggan Downs, Ph.D., CCC-COSMETIC SALES ASSISTANT Cleat Feeder Director, [facility] Otolaryngology, Head and Neck Surgery [facility] [phone] Augustine Nolan MD - 12/10/2018 9:51 AM PDTFormatting of this note may be different f rom the original. PATIENT NAME: Sussy Allred MR#: [id number] : 1950 PRIMARY CARE PROVIDER: MALLIKA Toledo [...] does require an overnight stay in the [facility], but is not particularly uncomfortable and the [...] Dr. Jose da silva. Augustine Nolan M.D. Cleat Feeder Laryngology and Head & Neck SurgerySilvana Quevedo [...] PEG tube and stric t NPO. Plan (dohy-bu-nfbxqrjv issues): - Aspiration pneumonitis: Productive sputum, augmentin [...] Stacy Quevedo MD Cardiothoracic Surgery Fellow Pager: [phone] Kiya Cedillo MD,PhD - 12/09/2018 2:43 PM [...] removal. APS will sign off, please page [phone] if there are questions or concerns. APS happy to repla ce epidural in future if primary team and patient think it is needed. Kiya Santos MD Pager [phone] Department of Anesthesiology and Perioperative Medicine Chronic [...] PEG tube and stric t NPO. Plan (yczn-yt-tdefqxzs issues): - Aspiration pneumonitis: strict NPO, aggressive [...] Stacy Quevedo MD Cardiothoracic Surgery Fellow Pager: [phone] Vee Dickerson, [facility] - 12/09/2018 9:44 AM PDTFormatting of this note may be different from the original. 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 24 Hour events - [...] dysphagia. - Strict NPO, consider re consulting COSMETIC SALES ASSISTANT today pending course and ENT recs - [...] 12/07 - Strict NPO - ENT performed EXECUTIVE CHEF scope with evidence of left vocal cord [...] Manoj Kumar MD Admitting Provider Cardiothoracic Surgery 64640 Quality section FAST HUG Feeding: Tube Feeds [...] ICU CARDIAC Place of Service:- Inpatient CSN: [id number] Suggested Modifier: None Suggested CPT: TO GARDE MANAGER Author:CARMELO Riggins [address] [address]TpbManda Hamm MD - 12/09/2018 8:35 AM PDTFormatting [...] Hamm MD Anesthesiology PGY1 APS Team Pager [phone] Associated attestation - Kiya Cedillo MD,PhD - [...] Clinical Update Note Team: D2 Team Pager: [phone] Attending: Cece Pt Name: Sussy Allred ID: [...] 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 Given her likely long-term [...] 12/07 - Strict NPO - ENT performed EXECUTIVE CHEF scope with evidence of left vocal cord [...] Manoj Kumar MD Admitting Provider Cardiothoracic Surgery 59065 Jama Zhao MD ICU PM Attending Anesthesiology 38172 Quality section FAST HUG Feeding: Tube Feeds: [...] e. Date of Service: 12/08/2018 MALLIKA STONER [facility] DEPARTMENT: ANE ICU CARDIAC Place of Service:- Inpatient CSN: [id number] Suggested Modifier: None Suggested CPT: TO GARDE MANAGER Author:MALLIKA STONER [address] [place] [address] [place] [address]DvehfwtvDennis Myrick MD - 12/08/2018 10:12 AM PDTFormatting of this no te may be different from the original. 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 Given her likely long-term [...] Manoj Kumar MD Admitting Provider Cardiothoracic Surgery 86793 Jama Zhao MD ICU PM Attending Anesthesiology 77560 Code Status Code Status Full Code Quality section I have spent a total of 38 minutes in the direct care and management of this patient indepe ndent of any time spent teaching or performing any separately billable procedures. I reviewe d the documented findings, all data and the recent imaging available. Seen with PA/EXECUTIVE CHEF myah . Please see their note for details. I reviewed the documented findings, all data and the re cent imaging available. Dennis Myrick MD Author:Dennis Myrick MD [address]Oziel Read MD - 12/08/2018 8:43 AM [...] Moura MD Adult Acute Pain Service [facility] Pager#: [phone] Email: [email or web address] Alcocer MD - 12/08/2018 8:25 AM PDTFormatting [...] post-procedure ye , which is reassuring. Plan (sivl-iv-exsgmrxj issues): - Aspiration pneumonitis: strict NPO, aggressive [...] - Discuss with MD Coreen Farley MD [facility] General Surgery Pager #[phone] Dennis Allred PA-C - 12/08/2018 5:02 AM PDTFormatting of this note may be d ifferent from the original. 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 Given her likely long-term [...] General Surgery, PGY-3 EGS consult resident pager: [phone] Jama Zhao MD - 12/07/2018 7:30 PM PDTFormatting of this note may be different f rom the original. 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 Given her likely long-term [...] No Chronic pain Yes Service Cardiac Surgery [[id number]] Admitting provider and ICU treatment team members Provider Role Specialty Pager Manoj Kumar MD Admitting Provider Cardiothoracic Surgery 18231 Jama Zhao MD ICU PM Attending Anesthesiology 73037 Code Status Code Status Full Code This [...] and the recent imaging available. Seen with PA/EXECUTIVE CHEF Chalino. Please see their note for details. I reviewed the documented findings, all data and the rec ent imaging available. 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 Given her likely long-term need fo r tube feeding given her dysphagia, EGS consulted and plans for PEG. Patient's ICU course co mplicated by hypertension (required phenylephrine now weaned off) and high volume aspiration event with hypoxia requiring HFNC 20L. Remains hemodynamically stable. 24 Hour events - Strict NPO with concern for high volume aspiration, COSMETIC SALES ASSISTANT signed off for now - Overnight worsening [...] event - Strict NPO - ENT performed EXECUTIVE CHEF scope with evidence of left vocal cord [...] Manoj Kumar MD Admitting Provider Cardiothoracic Surgery 60308 Jama Zhao MD ICU PM Attending Anesthesiology 55244 Quality section FAST HUG Feeding: NPO Analgesia: Epidural (HM-bupiv), rectal tylenol, lido patches Sedation: None Thromboprophylaxis: Lovenox Head of Bed: Head of Bed >30 degrees Ulcer Prophylaxis: Famotidine Glycemic Control: insulin sliding Created by Sonya Barron MD Author:Sonya Barron MD [facility] [address] [place] [address]FzpsrqlqDennis Myrick MD - 12/07/2018 10:19 AM PDTFormatting of this no te may be different from the original. Cardiovascular Intensive Care Unit Attending Progress Note CVICU D2 Assigned #[id number] ICU Admission Reason Most Recent Value ICU [...] Manoj Kumar MD Admitting Provider Cardiothoracic Surgery 45424 Jama Zhao MD ICU PM Attending Anesthesiology 21035 Code Status Code Status Full Code I [...] ICU CARDIAC Place of Service:- Inpatient CSN: [id number] Suggested Modifier: GC - Resident Involved Suggested CPT: TO GARDE MANAGER Dennis Myrick MD Author:Dennis Myrick MD [address] [place] [address] [place] [address]KcvadtbConcha Wayne MD - 12/07/2018 9:49 AM PDTFormatting of this n ote may be different from the original. Thoracic Surgery Brief Inpatient Progress Note Patient name: SUSSY ALLRED Attending: Manoj Kumar MD Procedure day: 3 Procedure: Left thoracotomy, CODY lobectomy with bronchial and PA reconstruction 24 hour events: - made strict NPO yesterday with concern for aspiration, COSMETIC SALES ASSISTANT signed off for now - overnight worsening [...] he risk of prolonged intubation post-anesthesia. Plan (xhnn-hs-nuoapdif issues): - Aspiration pneumonitis: strict NPO, aggressive pulmonary toilet, continue RT and neb domincik tments, follow closely for signs concerning for [...] and discussed with Dr. Chaya Wayne MD [facility] General Surgery Pager #[phone] Gayle Michael - 12/07/2018 9:21 AM PDTTransthoracic echocardiogram complete d. Final report to follow.Dennis Allred PA-C - 12/07/2018 5:34 AM PDTFormatting of this note may be different from the original. Cardiovascular Intensive Care Unit Clinical Update Note Team: D2 Team Pager: [phone] Attending: Cece Pt Name: Sussy Allred ID: [...] General Surgery, PGY-3 EGS consult resident pager: [phone] Associated attestation - Derrick Handley MD - 12/08/2018 10:17 AM PDTATTENDING ADDENDUM I saw and examined Sussy Allred with the residents on 12/07 and agree with the assessmen t and plan as outlined in this note and participated in the planning of care. Derrick Handley MD FACS saddle lining stitcher Division of Trauma, Critical Care, and Acute Care Surgery [id number] Dennis Myrick MD - 12/06/2018 11:01 AM PDTFormatting of this note may be different fro m the original. Cardiovascular Intensive Care Unit Attending Progress Note CVICU D2 Assigned #[id number] ICU Admission Reason Most Recent Value ICU [...] is comfortable - pt will need likely care home enteral access. Has requested surgical feeding tube [...] Manoj Kumar MD Admitting Provider Cardiothoracic Surgery 13735 Doty necessity reviewed: Plan to DC today [...] ICU CARDIAC Place of Service:- Inpatient CSN: [id number] Suggested Modifier: GC - Resident Involved Suggested CPT: TO GARDE MANAGER Dennis Myrick MD Author:Dennis Myrick MD [address] [address]Kvdmhr, Nkem, MD - 12/06/2018 9:21 AM PDTThoracic [...] Stacy Quevedo MD Cardiothoracic Surgery Fellow Pager: [phone] Sonya Barron MD - 12/06/2018 7:50 AM PDTFormatting of this note may be different from t varsha original. Cardiovascular Intensive Care Unit Team Progress Note CVICU D2 Assigned #[id number] ICU Admission Reason Most Recent Value ICU [...] DHT vs eventual Gtube - ENT performed EXECUTIVE CHEF scope with evidence of left vocal cord [...] Manoj Kumar MD Admitting Provider Cardiothoracic Surgery 82372 Quality section A-Line necessity reviewed: Plan to DC today Doty necessity reviewed: Plan to DC today FAST HUG Feeding: NPO Analgesia: epidural, Tylenol, lidocaine patches Sedation: None Thromboprophylaxis: Lovenox Head of Bed: Head of Bed >30 degrees Ulcer Prophylaxis: Famotidine Glycemic Control: insulin sliding Created by Sonya Barron MD Author:Sonya Barron MD [address] [address]TowlvuRobin Flores MD - 12/06/2018 7:02 AM PDTFormatting [...] revealed minimally mobile LEFT true vocal cord. COSMETIC SALES ASSISTANT evaluation with concern for ri sk of [...] Flores MD Anesthesiology/CCM Fellow APS Team Pager [phone] Associated attestation - Louie Moura MD - 12/07/2018 2:59 PM PDTI saw and evaluated mallika Allred with trainee: Dr. Flores . I have reviewed the trainee's note and I agree with the plan of care as documented. Louie Moura MD Adult Acute Pain Service [facility] Pager#: [phone] Email: [email or web address] PA-C - 12/05/2018 9:06 PM PDTFormatting of this note ma y be different from the original. Cardiovascular Intensive Care Unit Clinical Update Note Team: D2 Team Pager: [phone] Attending: Layla Pt Name: Sussy Allred ID: Abbreviated HPI Update: 1. Hypotension a. Impoved 12/05/2018 after 2L crystalloid b. UO improved with IVF 2. Recurret Laryngeal nerve a. ENT Eval complete b. Pending re eval by COSMETIC SALES ASSISTANT for swallow this sim S: Pain, drowsy [...] Unit Team Progress Note CVICU D2 Assigned #[id number] ICU Admission Reason Most Recent Value ICU [...] levothyroxine 50mcg PO DAILY after clear by COSMETIC SALES ASSISTANT Cardiovascular HTN (hypertension) Unknown Current Assessment & [...] - restart PO PPI when clear by COSMETIC SALES ASSISTANT At risk for Dysphagia Unknown Current Assessment [...] Manoj Kumar MD Admitting Provider Cardiothoracic Surgery 22255 Quality section A-Line necessity reviewed: Rgmx-fz-kadg blood pressure monitoring Doty necessity reviewed: Hourly/Accurate measurement of urinary output for clinical manage ment of critically ill patients FAST HUG Feeding: NPO Analgesia: Tylenol, epidural (bupiv-fent) Sedation: None Thromboprophylaxis: SCDs Head of Bed: Head of Bed >30 degrees Ulcer Prophylaxis: Famotidine Glycemic Control: insulin sliding Created by Sonya Barron MD Author:Sonya Barron MD [address] [address]Emchfnt, Sara, LORENZO-COSMETIC SALES ASSISTANT - 12/05/2018 10:00 AM PDTENT SPEECH PATHOLOGY- [...] HISTORY: she is single and lives in [place], [place] DIETARY STATUS: Current diet: The patient [...] afternoon when less lethargic/sedate. Ava Allred M.S., CF-COSMETIC SALES ASSISTANT Speech-Language Pathology Fellow [facility] [phone] Pager: [phone] eDnnis Myrikc MD - 12/05/2018 8:57 AM PDTFormatting of this note may be different fro m the original. Cardiovascular Intensive Care Unit Attending Progress Note CVICU D2 Assigned #[id number] ICU Admission Reason Most Recent Value ICU [...] Manoj Kumar MD Admitting Provider Cardiothoracic Surgery 49861 Code Status Code Status Full Code Quality section A-Line necessity reviewed: Nglv-fo-jlzh blood pressure monitoring Doty necessity reviewed: Acute [...] ICU CARDIAC Place of Service:- Inpatient CSN: [id number] Suggested Modifier: GC - Resident Involved Suggested CPT: TO GARDE MANAGER Dennis Myrick MD Author:Dennis Myrick MD [address]Robin Flores MD - 12/05/2018 8:08 AM [...] Flores MD Anesthesiology/CCM Fellow APS Team Pager [phone] Associated attestation - Kiya Cedillo MD,PhD - [...] Stacy Quevedo MD Cardiothoracic Surgery Fellow Pager: [phone] Dennis Allred PA-C - 12/05/2018 3:00 AM PDTFormatting of this note may be different from the original. Cardiovascular Intensive Care Unit Clinical Update Note Team: D2 Team Pager: [phone] Attending: Layla Pt Name: Sussy Allred ID: [...] - restart PO PPI when clear by COSMETIC SALES ASSISTANT Hypothyroidism 12/04/2018 Assessment & Plan Note: - restart home levothyroxine 50mcg PO DAILY after clear by COSMETIC SALES ASSISTANT Acute post-operative pain 12/04/2018 Assessment & Plan [...] LEVEL/LATERALITY: bilateral ATTENDING PHYSICIAN: Hellen Herman MD CALL TAKER: Jamey Flores MD, Manda Hamm MD ANESTHESIA: [...] procedure. MD Jamey Boss M.D. Assisted our r d internship. I saw and evaluated patient Ms. [...] | 2019 | Visit | | [address] | | | | | | [address] | | | | | | [place], [place] | | | | | | [address] | | | | | | [phone] | | | | | | | [...] + +--------+ + + + | TO GARDE MANAGER | Routin | 12/05/2018 | | Results [...] MARIDANIA | [address] | [place], [place] | | | MARISSA JULIAN OF CARE | [address] | [address] | | | TESTS | | | [...] MARIDANIA | [address] | [place], [place] | | | IESHA POINT OF CARE | [address] | [address] | | | TESTS | | | | + + + + + X-RAY PORTABLE CHEST 1 VIEW (12/13/2018 8:24 AM) + + + | Narrative | Performed At | + + + | EXAM: MA CHEST 1 VIEW HISTORY: eval interval change. [...] Interface - 12/13/2018 9:47 AM PDT EXAM: MA CHEST 1 | | VIEW HISTORY: eval [...] CINTRON | [address] | [place], [place] | | | MARISSA JULIAN OF [facility] | [address] | [address] | | | TESTS | | | [...] + + | SUZE [facility] | [address] | [place], [place] | | | IESHA [facility] OF [facility] | [address] | [address] | | | TESTS | | | [...] | MD Sae Cardiothoracic Surgery Fellow Pager: [phone] | | + + + CAPILLARY BLOOD [...] [facility] | [address] | [place], [place] | | | MARISSA JULIAN OF CARE | [facility] | [address] | | | TESTS | | | [...] [facility] | [address] | [place], [place] | | | IESHA POINT OF CARE | [address] | [address] | | | TESTS | | | [...] [facility] | [address] | [place], [place] | | | IESHA POINT OF CARE | [facility] | [address] | | | TESTS | | | [...] MARQUAM | [address] | [place], [place] | | | IESHA POINT OF CARE | [address] | [address] | | | TESTS | | | [...] MARIDANIA | [address] | [place], [place] | | | MARISSA JULIAN OF CARE | [address] | [address] | | | TESTS | | | [...] | + + + + + | [facility] | [address] | [place], [place] | | | [place] [facility] OF [facility] | [address] | [address] | | | TESTS | | | [...] 3.50 - 10.80 K/cu mm | [facility] | | | | | SERVICES CORE | + + + + + | RED CELL COUNT | 2.64 (L) | 4.00 - 5.20 M/cu mm | [facility] | | | | | SERVICES [...] | 9.7 - 12.3 fL | [facility] | | | | | SERVICES, CORE | + + + + + | NRBC% | 0.0 | 0.0 - 0.3 % | [facility] | | | | | SERVICES, CORE | + + + + + | NRBC# | 0.00 | 0.00 - 0.02 K/cu mm | [facility] | | | | | SERVICES, CORE | + + + + + + + | Specimen | + + | Blood - Blood | + + + + + + + | Performing | Address | City/State/Zipcode | Phone Number | | Organization | | | | + + + + + | [facility] | [address] | [place] [address] | | | SERVICES, CORE | [address] | | | + + + + + MAGNESIUM, PLASMA (12/11/2018 5:01 AM) + +-------+ + + | Component | Value | Ref Range | Performed At | + +-------+ + + | MAGNESIUM,PLASMA | 2.3 | 1.6 - 2.6 mg/dL | [facility] | | | | | [address]I [address]UART | + +-------+ + + + + | Specimen | + + | Blood - Blood | + + + + + + + | Performing | Address | City/State/Zipcode | Phone Number | | Organization | | | | + + + + + | [facility] | [address] | [place] [address] | | | SERVICES, CORE | MELANIA [...] >60 mL/min | [facility] | | [address]ANK[address] | | | SADE, CORE | + + + + + | EGFR NON | >60 | >60 mL/min | [facility] | | -SRI LANK[facility] | | | SADE, CORE | + [...] LABORATORY | | (LAB) | | | [facility], CORE | + + + + + | POTASSIUM CMNT | No Hemo | | [facility] | | | | | SERVICES, [facility] | + + + + + | ANION GAP | 6 | 4 - 11 mmol/L | [facility] | | | | | [facility], CORE | + + + + + | ANION GAP(ALB | 11 | 4 - 11 mmol/L | [facility] | | CORRECTED) | | | SERVICES, CORE | + + + + + + + | Specimen | + + | Blood - Blood | + + + + + | Narrative | Performed At | + + + | GFR is estimated using the MDRD equation recommended by the | [facility] | | National Kidney Disease [...] | + + + + + | [facility] | [address] | [place] [address] | | | SADE, KOKI | MELANIA [...] MARQUAM | [address] | [place], [place] | | | IESHA POINT OF CARE | [address] | [address] | | | TESTS | | | [...] [facility] | [address] | [place], [place] | | | MARISSA JULIAN OF CHE | [facility] | [address] | | | TESTS | | | [...] + | [facility] | [address] | [place], [place] | | | MARISSA JULIAN OF CARE | [address] | [address] | | | TESTS | | | | + + + + + CBC (HEMOGRAM) ONLY (12/10/2018 6:13 AM) + + + + + | Component | Value | Ref Range | Performed At | + + + + + | WHITE CELL COUNT | 9.93 | 3.50 - 10.80 K/cu mm | [facility] | | | | | SERVICES, [...] | + + + + + | [facility] | [address] | [place] [address] | | | SERVICES, CORE | [address] | | | + + + + + MAGNESIUM, PLASMA (12/10/2018 6:13 AM) + +-------+ + + | Component | Value | Ref Range | Performed At | + +-------+ + + | MAGNESIUM,PLASMA | 2.4 | 1.6 - 2.6 mg/dL | [facility] | | | | | SERVICES, CORE | + +-------+ + + + + | Specimen | + + | Blood - Blood | + + + + + + + | Performing | Address | City/State/Zipcode | Phone Number | | Organization | | | | + + + + + | [facility] | [address] | [place] [address] | | | SERVICES, CORE | MELANIA [...] >60 mL/min | [facility] | | SRI LANKAN | | | SERVICES, CORE | + + + + + | EGFR NON | >60 | >60 mL/min | [facility] | | -SRI LANKAN | | | SERVICES, CORE | + [...] 2.8 | 2.4 - 4.7 mg/dL | [facility] | | (LAB) | | | SERVICES, CORE | + + + + + | POTASSIUM CMNT | No Hemo | | [facility] | | | | | SERVICES, [...] | + + + + + | [facility] | [address] | [place] [address] | | | KOKI STUART | MELANIA [...] 2.1 | 1.6 - 2.6 mg/dL | [facility] | | | | | SERVICES, CORE | + +-------+ + + + + | Specimen | + + | Blood - Blood | + + + + + + + | Performing | Address | City/State/Zipcode | Phone Number | | Organization | | | | + + + + + | [facility] | [address] | [place] [address] | | | SERVICES, CORE | [address] | | | + + + + + RENAL FUNCTION SET (NA,K,CL,CO2,BUN,CREAT,GLUC,CA,PHOS,ALB ) (12/09/2018 12:17 PM) + + + + + | Component | Value | Ref Range | Performed At | + + + + + | GLUCOSE, PLASMA | 92 | 70 - 99 mg/dL | [facility] | | (LAB) | | | SADE CORE | + + + + + | BUN, PLASMA (LAB) | 8 | 6 - 20 mg/dL | [facility] | | | | | SERVICES, CORE | + + + + + | CREATININE PLASMA | 0.47 (L) | 0.60 - 1.10 mg/dL | [facility] | | (LAB) | | | SERVICES, CORE | + + + + + | EGFR - | >60 | >60 mL/min | [facility] | | SRI LANKAN | | | SERVICES, CORE | + + + + + | EGFR NON | >60 | >60 mL/min | [facility] | | -SRI LANKAN | | | SERVICES, CORE | + [...] (L) | 8.6 - 10.2 mg/dL | [facility] | | (LAB) | | | SERVICES, CORE | + + + + + | CALCIUM(ALB | 9.0 | 8.6 - 10.2 mg/dL | [facility] | | CORRECTED) | | | SADE, CORE | + + + + + | ALBUMIN, PLASMA | 1.5 (L) | 3.5 - 4.7 g/dL | [facility] | | (LAB) | | | [...] | + + + + + | [facility] | [address] | [place] [address] | | | SERVICES, KOKI | [address] | | | + + + + + CBC (HEMOGRAM) ONLY (12/09/2018 6:35 AM) + + + + + | Component | Value | Ref Range | Performed At | + + + + + | WHITE CELL COUNT | 7.77 | 3.50 - 10.80 K/cu mm | [facility] | | | | | KOKI [...] | + + + + + | [facility] | [address] | [place] [address] | | | SERVICES, CORE | MELANIA [...] | + + + + + | [facility] | [address] | [place] [address] | | | SERVICES, CORE | [address] [...] | + + + + + | [facility] | [address] | [place] [address] | | | SERVICES, KOKI | [address] | | | + + + + + X-RAY PORTABLE CHEST 1 VIEW (12/09/2018 5:41 AM) + + + | Narrative | Performed At | + + + | EXAM: MA CHEST 1 VIEW HISTORY: Shortness of breath. [...] Interface - 12/09/2018 7:45 AM PDT EXAM: MA CHEST 1 | | VIEW HISTORY: Shortness [...] | 1.6 - 2.6 mg/dL | [facility] | | | | | SERVICES, CORE | + +-------+ + + + + | Specimen | + + | Blood - Blood | + + + + + + + | Performing | Address | City/State/Zipcode | Phone Number | | Organization | | | | + + + + + | [facility] | [address] | [place] [address] | | | SERVICES, KOKI | [address] [...] >60 mL/min | [facility] | | SRI LANKAN | | | SADE CORE | + + + + + | EGFR NON | >60 | >60 mL/min | [facility] | | -SRI LANKAN | | | SERVICES, CORE | + [...] LABORATORY | | | | | SERVICES, [facility] | + + + + + | ANION GAP | 4 | 4 - 11 mmol/L | [facility] | | | | | SERVICES, CORE | + + + + + | ANION GAP(ALB | 8 | 4 - 11 mmol/L | [facility] | | CORRECTED) | | | SERVICES, CORE | + + + + + + + | Specimen | + + | Blood - Blood | + + + + + | Narrative | Performed At | + + + | GFR is estimated using the MDRD equation recommended by the | [facility] | | National Kidney Disease [...] | + + + + + | [facility] | [address] | [place] [address] | | | SERVICES, CORE | MELANIA [...] [facility] | [address] | [place], [place] | | | IESHA POINT OF CARE | [address] | [address] | | | TESTS | | | | + + + + + MAGNESIUM, PLASMA (12/08/2018 12:56 PM) + +-------+ + + | Component | Value | Ref Range | Performed At | + +-------+ + + | MAGNESIUM,PLASMA | 2.2 | 1.6 - 2.6 mg/dL | [facility] | | | | | SERVICES, CORE | + +-------+ + + + + | Specimen | + + | Blood - Blood | + + + + + + + | Performing | Address | City/State/Zipcode | Phone Number | | Organization | | | | + + + + + | [facility] | [address] | [place] [address] | | | [facility] | [address] | | | + + + + + RENAL FUNCTION SET (NA,K,CL,CO2,BUN,CREAT,GLUC,CA,PHOS,ALB ) (12/08/2018 12:56 PM) + + + + + | Component | Value | Ref Range | Performed At | + + + + + | GLUCOSE, PLASMA | 106 (H) | 70 - 99 mg/dL | [facility] | | (LAB) | | | SADE, CORE | + + + + + | BUN, PLASMA (LAB) | 12 | 6 - 20 mg/dL | [facility] | | | | | SADE, KOKI | + + + + + | CREATININE PLASMA | 0.51 (L) | 0.60 - 1.10 mg/dL | [facility] | | (LAB) | | | SERVICES, CORE | + + + + + | EGFR - | >60 | >60 mL/min | [facility] | | SRI LANKAN | | | SERVICES, CORE | + + + + + | EGFR NON | >60 | >60 mL/min | [facility] | | -SRI LANKAN | | | SERVICES, CORE | + [...] LABORATORY | | (LAB) | | | [facility], [facility] | + + + + + | CALCIUM, PLASMA | 8.6 | 8.6 - 10.2 mg/dL | [facility] | | (LAB) | | | SADE, CORE | + + + + + | CALCIUM(ALB | 9.8 | 8.6 - 10.2 mg/dL | [facility] | | CORRECTED) | | | SADE, [facility] | + + + + + | ALBUMIN, PLASMA | 2.5 (L) | 3.5 - 4.7 g/dL | [facility] | | (LAB) | | | [facility], CORE | + + + [...] [facility] | [address] | [place] [address] | | | KOKI STUART | [address] [...] >60 mL/min | [facility] | | SRI LANKAN | | | SADE, CORE | + + + + + | EGFR NON | >60 | >60 mL/min | [facility] | | -SRI LANKAN | | | SERVICES, CORE | + [...] | | (LAB) | | | SERVICES, [facility] | + + + + + | PHOSPHORUS, PLASMA | 0.5 (LL) | 2.4 - 4.7 mg/dL | [facility] | | (LAB) | | | SERVICES, CORE | + + + + + | POTASSIUM CMNT | No Hemo | | [facility] | | | | | SERVICES, [facility] | + + + + + | ANION GAP | 5 | 4 - 11 mmol/L | [facility] | | | | | SERVICES, [facility] | + + + + + | ANION GAP(ALB | 11 | 4 - 11 mmol/L | [facility] | | CORRECTED) | | | SERVICES, CORE | + + + + + + + | Specimen | + + | Blood - Blood | + + + + + | Narrative | Performed At | + + + | GFR is estimated using the MDRD equation recommended by the | [facility] | | National Kidney Disease Education Program. Estimated GFR | LABORATORY | | Interpretive Information: <60 mL/min/1.73 sq | [facility], CORE | | m Chronic [...] + + + + + | [facility] | [address] | [place] [address] | | | SERVICES, KOKI | [address] | | | + + + + + X-RAY PORTABLE CHEST 1 VIEW (12/08/2018 4:58 AM) + + + | Narrative | Performed At | + + + | EXAM: MA CHEST 1 VIEW HISTORY: SoB COMPARISON: Chest [...] Interface - 12/08/2018 10:59 AM PDT EXAM: MA CHEST 1 | | VIEW HISTORY: SoB [...] 2.0 | 1.6 - 2.6 mg/dL | [facility] | | | | | SERVICES, CORE | + +-------+ + + + + | Specimen | + + | Blood - Blood | + + + + + + + | Performing | Address | City/State/Zipcode | Phone Number | | Organization | | | | + + + + + | [facility] | [address] | [place] [address] | | | KOKI STUART | [address] | | | + + + + + RENAL FUNCTION SET (NA,K,CL,CO2,BUN,CREAT,GLUC,CA,PHOS,ALB ) (12/08/2018 4:29 AM) + + + + + | Component | Value | Ref Range | Performed At | + + + + + | GLUCOSE, PLASMA | 153 (H) | 70 - 99 mg/dL | [facility] | | (LAB) | | | KOKI STUART | + + + + + | BUN, PLASMA (LAB) | 13 | 6 - 20 mg/dL | [facility] | | | | | KOKI STUART | + + + + + | CREATININE PLASMA | 0.55 (L) | 0.60 - 1.10 mg/dL | [facility] | | (LAB) | | | SERVICES, CORE | + + + + + | EGFR - | >60 | >60 mL/min | [facility] | | SRI LANKAN | | | SERVICES, CORE | + + + + + | EGFR NON | >60 | >60 mL/min | [facility] | | -SRI LANKAN | | | SERVICES, CORE | + [...] POTASSIUM CMNT | No Hemo | | [facility] | | | | | [facility], [facility] | + + + + + | ANION GAP | 5 | 4 - 11 mmol/L | [facility] | | | | | SERVICES, [facility] | + + + + + | ANION GAP(ALB | 9 | 4 - 11 mmol/L | [facility] | | CORRECTED) | | | [facility], [facility] | + + + + + + [...] | + + + + + | [facility] | [address] | [place] [address] | | | KOKI STUART | [address] | | | + + + + + CBC (HEMOGRAM) ONLY (12/08/2018 4:28 AM) + + + + + | Component | Value | Ref Range | Performed At | + + + + + | WHITE CELL COUNT | 11.87 (H) | 3.50 - 10.80 K/cu mm | [facility] | | | | | KOKI [...] 46.2 | 35.1 - 46.3 fL | [facility] | | | | | SERVICES, CORE | + + + + + | PLATELET COUNT | 261 | 150 - 400 K/cu mm | [facility] | | | | | SERVICES, CORE | + + + + + | MPV | 9.3 (L) | 9.7 - 12.3 fL | [facility] | | | | | SERVICES, CORE | + + + + + | NRBC% | 0.0 | 0.0 - 0.3 % | [facility] | | | | | SERVICES, CORE | + + + + + | NR# | 0.00 | 0.00 - 0.02 K/cu mm | [facility] | | | | | KOKI STUART | + + + + + + + | Specimen | + + | Blood - Blood | + + + + + + + | Performing | Address | City/State/Zipcode | Phone Number | | Organization | | | | + + + + + | [facility] | [address] | [place] [address] | | | KOKI STUART | [address] [...] | | | Dereck Rodriguez MD [facility] [address] [facility] | | | [place] [address] | | + + + PROCEDURE NOTE [...] attempt. Midline | | | lot number [id number]; there was excellent blood return. The | [...] Performed At | + + + | [facility] | [facility] DEPT OF | | [facility] Adult Echocardiography | CARDIOLOGY | | Laboratory [address] [place] [address], | | | [place] [address] Pt Name: | | | SUSSY LEANDRO ALLRED Study Date/Time 12/07/2018 / 8:45:36 | | | AMMRN: [id number] Most recent | | | prior: 11/26/2018Acc #: [id number] No. | | | previous echos: 1DOB: 1950 68 years Heart | | | Rate: 88 bpmHeight: 64.0 in | | | Blood Pressure: 104/64 mm/HgWeight: 145.0 | | | lb Gender: | | | FBSA: 1.71 m | | | Order ID: [id number] | | | [facility] Gayle Michael [facility] | | | 2:Referring Provider: Dennis [...] Report | | | electronically signed by: [id number] Kathleen Sam MD (12/07/2018, | | | 4:42:18 PM) Final | | + + + + + | Procedure Note | + + | Interface, Cardiology Results - 12/07/2018 4:42 PM [facility] | | [facility] Echocardiography Laboratory [address] [place] [address] | | [place], [place] [address] Pt Name: SUSSY REEVES | | CHALINO Study Date/Time 12/07/2018 / 8:45:36 AMMRN: [id number] Most | | recent prior: 11/26/2018Acc #: [id number] No. previous echos: 1DOB: | | 1950 68 years Heart Rate: 88 bpmHeight: 64.0 in Blood | | Pressure: 104/64 mm/HgWeight: 145.0 lb Gender: FBSA: | | 1.71 m | | Order ID: [id number] Study Location: KSonographer: [place] | | [facility] 2:Referring Provider: Dennis Patel Performed: 2D, | [...] and indexed values Report electronically signed by: [id number] | | Kathleen Sam MD (12/07/2018, 4:42:18 [...] | | | |Report electronically signed by: [id number] Kathleen Sam MD (12/07/2018, 4:42:18 PM) | | | | | | | | Final | + + + + + + + | Performing | Address | City/State/Zipcode | Phone Number | | Organization | | | | + + + + + | [facility]PT [facility] | [address] | [place], [place] | | | CARDIOLOGY | [address] | [address] | | + + + + + X-RAY PORTABLE CHEST 1 VIEW (12/07/2018 5:56 AM) + + + | Narrative | Performed At | + + + | EXAM: MA CHEST 1 VIEW HISTORY: SoB COMPARISON: Chest | [facility] | | radiograph from 12/06/2018. Outside PET/CT [...] Interface - 12/07/2018 12:19 PM PDT EXAM: MA CHEST 1 | | VIEW HISTORY: SoB [...] | + + + + + | [facility] | [address] | [place] [address] | | | SERVICES, CORE | [address] | | | + + + + + CBC (HEMOGRAM) ONLY (12/07/2018 2:20 AM) + + + + + | Component | Value | Ref Range | Performed At | + + + + + | WHITE CELL COUNT | 13.40 (H) | 3.50 - 10.80 K/cu mm | [facility] | | | | | SERVICES, CORE | + + + + + | RED CELL COUNT | 2.52 (L) | 4.00 - 5.20 M/cu mm | [facility] | | | | | SERVICES, [...] 0.0 | 0.0 - 0.3 % | [facility] | | | | | SERVICES, [...] [facility] | [address] | [place] [address] | | | KOKI STUART | [address] [...] >60 mL/min | [facility] | | SRI LANKAN | | | SERVICES, CORE | + +---------+ + + | EGFR NON | >60 | >60 mL/min | [facility] | | -SRI LANKAN | | | SERVICES, CORE | + [...] | | (LAB) | | | SERVICES, [facility] | + +---------+ + + | TOTAL CO2, PLASMA | 25 | 21 - 32 mmol/L | [facility] | | (LAB) | | | SERVICES, [facility] | + +---------+ + + | CALCIUM, PLASMA | 7.7 (L) | 8.6 - 10.2 mg/dL | [facility] | | (LAB) | | | SERVICES, CORE | + +---------+ + + | CALCIUM(ALB | 9.2 | 8.6 - 10.2 mg/dL | [facility] | | CORRECTED) | | | [facility], [facility] | + +---------+ + + | ALBUMIN, PLASMA | 2.1 (L) | 3.5 - 4.7 g/dL | [facility] | | (LAB) | | | [facility], [facility] | + +---------+ + + | PHOSPHORUS, [...] | + + + + + | [facility] | [address] | [place] [address] | | | SERVICES, KOKI | [address] | | | + + + + + PROCEDURE NOTE (12/06/2018 7:33 PM)CBC (HEMOGRAM) ONLY (12/06/2018 12:27 PM) + + + + + | Component | Value | Ref Range | Performed At | + + + + + | WHITE CELL COUNT | 12.39 (H) | 3.50 - 10.80 K/cu mm | [facility] | | | | | KOKI [...] | 0.00 - 0.02 K/cu mm | [facility] | | | | | SERVICES, CORE | + + + + + + + | Specimen | + + | Blood - Blood | + + + + + + + | Performing | Address | City/State/Zipcode | Phone Number | | Organization | | | | + + + + + | [facility] | [address] | [place] [address] | | | SERVICES, KOKI | [address] | | | + + + + + MAGNESIUM, PLASMA (12/06/2018 6:29 AM) + +-------+ + + | Component | Value | Ref Range | Performed At | + +-------+ + + | MAGNESIUM,PLASMA | 2.1 | 1.6 - 2.6 mg/dL | [facility] | | | | | SERVICES, CORE | + +-------+ + + + + | Specimen | + + | Blood - Blood | + + + + + + + | Performing | Address | City/State/Zipcode | Phone Number | | Organization | | | | + + + + + | [facility] | [address] | [place] [address] | | | SERVICES, CORE | [address] [...] >60 mL/min | [facility] | | SRI LANKAN | | | SERVICES, CORE | + +---------+ + + | EGFR NON | >60 | >60 mL/min | [facility] | | -SRI LANKAN | | | SERVICES, CORE | + [...] + + + + + | [facility] | [address] | [place] [address] | | | SERVICES, KOKI | [address] | | | + + + + + X-RAY PORTABLE CHEST 1 VIEW (12/06/2018 6:10 AM) + + + | Narrative | Performed At | + + + | EXAM: MA CHEST 1 VIEW HISTORY: SoB COMPARISON: Yesterday [...] Interface - 12/06/2018 8:38 AM PDT EXAM: MA CHEST 1 | | VIEW HISTORY: SoB [...] | 3.50 - 10.80 K/cu mm | [facility] | | | | | SERVICES, CORE | + + + + + | RED CELL COUNT | 2.65 (L) | 4.00 - 5.20 M/cu mm | [facility] | | | | | SERVICES, CORE | + + + + + | HEMOGLOBIN | 8.7 (L) | 12.0 - 16.0 g/dL | [facility] | | | | | SERVICES, CORE | + + + + + | HEMATOCRIT | 27.1 (L) | 36.0 - 46.0 % | [facility] | | | | | SERVICES, CORE | + + + + + | MCV | 102.3 (H) | 80.0 - 100.0 fL | [facility] | | | | | SERVICES, CORE | + + + + + | MCHC | 32.1 | 32.0 - 36.0 g/dL | [facility] | | | | | SERVICES, CORE | + + + + + | RDW SD | 46.1 | 35.1 - 46.3 fL | [facility] | | | | | SERVICES, [...] | + + + + + | [facility] | [address] | [place] [address] | | | SERVICES, CORE | [address] [...] Images archived to | | | institution scullion chief | | + + + X-RAY PORTABLE CHEST 1 VIEW (12/05/2018 5:59 AM) + + + | Narrative | Performed At | + + + | EXAM: MA CHEST 1 VIEW HISTORY: post left thoracotomy, [...] Interface - 12/05/2018 9:53 AM PDT EXAM: MA CHEST 1 | | VIEW HISTORY: post [...] | | site: Radial Catheter size: 3 nigerien x 5 cm Number of | | [...] | 3.50 - 10.80 K/cu mm | [facility] | | | | | SERVICES, CORE | + + + + + | RED CELL COUNT | 3.04 (L) | 4.00 - 5.20 M/cu mm | [facility] | | | | | SERVICES, [...] 45.9 | 35.1 - 46.3 fL | [facility] | | | | | SERVICES, [...] 0.00 - 0.02 K/cu mm | [facility] | | | | | SADE, KOKI | + + + + + + + | Specimen | + + | Blood - Blood | + + + + + + + | Performing | Address | City/State/Zipcode | Phone Number | | Organization | | | | + + + + + | [facility] | [address] | [place] [address] | | | KOKI STUART | [address] [...] [facility] | [address] | [place] [address] | | | [facility], [facility] | [address] | | | + + + + + RENAL FUNCTION SET (NA,K,CL,CO2,BUN,CREAT,GLUC,CA,PHOS,ALB ) (12/05/2018 1:45 AM) + +---------+ + + | Component | Value | Ref Range | Performed At | + +---------+ + + | GLUCOSE, PLASMA | 119 (H) | 70 - 99 mg/dL | [facility] | | (LAB) | | | [...] >60 mL/min | [facility] | | SRI LANKAN | | | SERVICES, CORE | + +---------+ + + | EGFR NON | 59 (L) | >60 mL/min | [facility] | | -SRI LANKAN | | | SERVICES, CORE | + [...] | | (LAB) | | | SERVICES, [facility] | + +---------+ + + | TOTAL CO2, PLASMA | 26 | 21 - 32 mmol/L | [facility] | | (LAB) | | | [facility], [facility] | + +---------+ + + | CALCIUM, PLASMA | 7.9 (L) | 8.6 - 10.2 mg/dL | [facility] | | (LAB) | | | SERVICES, CORE | + +---------+ + + | CALCIUM(ALB | 8.9 | 8.6 - 10.2 mg/dL | [facility] | | CORRECTED) | | | SADE, [facility] | + +---------+ + + | ALBUMIN, PLASMA | 2.8 (L) | 3.5 - 4.7 g/dL | [facility] | | (LAB) | | | [facility], [facility] | + +---------+ + + | PHOSPHORUS, PLASMA | 3.4 | 2.4 - 4.7 mg/dL | [facility] | | (LAB) | | | SERVICES, CORE | + +---------+ + + | POTASSIUM CMNT | No Hemo | | [facility] | | | | | SERVICES, [...] + + + + + | [facility] | [address] | [place] [address] | | | SERVICES, CORE | [address] | | | + + + + + X-RAY PORTABLE CHEST 1 VIEW (12/04/2018 6:32 PM) + + + | Narrative | Performed At | + + + | EXAM: MA CHEST 1 VIEW HISTORY: Status post left [...] Note | + + | 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, 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 - 12/05/2018 9:54 AM PDT EXAM: MA CHEST 1 | | VIEW HISTORY: Status [...] | + + + + + | [facility] | [address] | [place] [address] | | | KOKI STUART | [address] | | | + + + + + CBC (HEMOGRAM) ONLY (12/04/2018 5:56 PM) + + + + + | Component | Value | Ref Range | Performed At | + + + + + | WHITE CELL COUNT | 13.55 (H) | 3.50 - 10.80 K/cu mm | [facility] | | | | | KOKI [...] 45.1 | 35.1 - 46.3 fL | [facility] | | | | | SERVICES, CORE | + + + + + | PLATELET COUNT | 343 | 150 - 400 K/cu mm | [facility] | | | | | SERVICES, CORE | + + + + + | MPV | 8.9 (L) | 9.7 - 12.3 fL | [facility] | | | | | SERVICES, CORE | + + + + + | NRBC% | 0.0 | 0.0 - 0.3 % | [facility] | | | | | SERVICES, CORE | + + + + + | NRBC# | 0.00 | 0.00 - 0.02 K/cu mm | [facility] | | | | | SERVICES, CORE | + + + + + + + | Specimen | + + | Blood - Blood | + + + + + + + | Performing | Address | City/State/Zipcode | Phone Number | | Organization | | | | + + + + + | [facility] | [address] | [place] [address] | | | SERVICES, CORE | [address] [...] >60 mL/min | [facility] | | SRI [place] | | | SADE, CORE | + +---------+ + + | EGFR NON | >60 | >60 mL/min | [facility] | | -[facility] | | | SERVICES, CORE | + [...] | + + + + + | [facility] | [address] | [place] [address] | | | SADE, KOKI | MELANIA [...] [facility] | [address] | [place], [place] | | | CELIA JULIAN | [address] | [id number] | | | TESTS | | | | + + + + + OPERATION RECORD (12/04/2018 4:05 PM) + + | Procedure Note | + + | Manoj Kumar MD - 12/04/2018 4:05 PM PDT Date of Service: 12/04/2018 Attending | | Surgeon:Manoj Kumar MD Business Banker(s):Pritesh Chang | | Bethel Quevedo MD Preoperative [...] ribs were reapproximated using | | multiple zrbcjn-ts-dwzyc #2 Vicryl sutures. Serratus closed with #1 Vicryl, | | subcutaneous tissue closed with 2-0 Vicryl, skin closed with 4-0 Vicryl. Sterile | | dressings were applied. A single 28-Latvian chest tube was placed through the inferior [...] 12/04/2018 15:15:41DT: 12/04/2018 16:05:12Job #: | | [id number] | + + CAPILLARY BLOOD GLUCOSE (NO [...] [facility] | [address] | [place], [place] | | | IESHA POINT OF CARE | [facility] | [id number] | | | TESTS | | | [...] - MARQUAM | | | | | EISHA, POINT OF | | | | | [...] [facility] | [address] | [place], [place] | | | IESHA POINT OF CARE | [facility] | [address] | | | TESTS | | | [...] - LEIGHANN | [address] | [place], [place] | | | I[facility] POINT OF CARE | [address] | [address] | | | TESTS | | | [...] | + + + + + | [facility] | [address] | [place], [place] | | | MARISSA JULIAN OF [facility] | [address] | [address] | | | TESTS | | | | + + + + + SURGICAL PATHOLOGY (12/04/2018 9:11 AM) + + + + + | Component | Value | Ref Range | Performed At | + + + + + | Clinical History | 68 year old female with | | [facility] | | | a history of [...] (8th edition): | | | | | [id number]: The | | | | | tumor [...] | PathologistPathology, | | | | | [facility] | | | | | [facility] electronic | | | | | signature [...] LUNG (Lung - All | | [facility] | | | Specimens) SPECIMEN | [...] | Received are 18 | | [facility] | | | specimens fresh in | | OF PATHOLOGY | | | containers labeled with | | | | | the patient's name | | | | | (initials JAO) and | | | | | medical record number | | | | | [id number]. Lymph node, | | | | | [...] | surfaces. | | | | | Maxillofacial Prosthetics Dentist sections | | | | | are [...] positive | | | | | density, telephone claims representative | | | | | sectionsP. [...] hilar mass. | | | | | Maxillofacial Prosthetics Dentist sections | | | | | are [...] node | | | | | from [id number]: 3.2 cm | | | | | [...] apical mass, | | | | | telephone claims representative sections, | | | | | to include relationship | | | | | with pleura in | | | | | [id number]: Subpleural | | | | | induration, | | | | | telephone claims representative | | | | | [id number]: Uninvolved | | | | | parenchyma, | | | | | telephone claims representative | | | | | [id number]: 1 density | | | | | suggestive of lymph | | | | | node, [id number]: 1 | | | | | density [...] use | Frozen section | | [facility] | | only - Final | [...] | PathologistPathology, | | | | | [facility] | | | | [...] | PathologistPathology, | | | | | [facility] | | | | [...] | PathologistPathology, | | | | | [facility] | | | | [...] | PathologistPathology, | | | | | [facility] | | | | [...] | PathologistPathology, | | | | | [facility] | | | | [...] | PathologistPathology, | | | | | [facility] | | | | [...] | PathologistPathology, | | | | | [facility] | | | | [...] | PathologistPathology, | | | | | [facility] | | | | [...] | PathologistPathology, | | | | | [facility] | | | | [...] | PathologistPathology, | | | | | [facility] | | | | [...] | PathologistPathology, | | | | | [facility] | | | | [...] | PathologistPathology, | | | | | [facility] | | | | [...] Leighann Wyatt | | | | | [place] that point | | | + + [...] | | | | determined by [facility] | | | | | laboratories. It [...] + + | Performing | Address | [facility] | Phone Number | | Organization | | | | + + + + + | [facility] OF | [address] | [place] [address] | | | PATHOLOGY | [address] | | | + + + + + FINE NEEDLE ASPIRATE (12/04/2018 8:06 AM) + + + + + | Component | Value | Ref Range | Performed At | + + + + + | Clinical History | 68 year-old woman with a | | [facility] | | | PET-avid left upper | | OF PATHOLOGY | | | lobe nodule. | | | + + + + + | Final Pathologic | A. Lymph node, level 7, | | [facility] | | Diagnosis | ultrasound guided [...] pathology case | | | | | ([id number])]. No | | | | | definite carcinoma cells | | | | | seen are seen in this | | | | | sampling, however see | | | | | case [id number]. Case | | | | | seen [...] | PathologistPathology, | | | | | [facility] [employer] | | | | | [facility] My [...] | A: Evaluation episode | | [facility] | | | #1: Pass #1-3: [...] | PathologistPathology, | | | | | [facility] | | | | | [place] | | | + + + + + | Procedure Details | A. FNA by clinician. 3 | | [facility] | | | passes yielded fluid [...] | + + + + + | [facility] | [address] | [place] [address] | | | SERVICES, [facility] | | | | | HEALTH + HEALING | | | | + + + + + | [facility] | [address] | [place] [address] | | | PATHOLOGY | [address] [...] [facility] | [address] | [place], [place] | | | IES[facility] POINT OF CARE | [address] | [address] | | | TESTS | | | [...] PDT | | | | | dose, [facility] 12/05/18 at 0115 | | | | [...] | | | doses, First dose on [facility] 12/12/18 | | | | | | [...] | | | DAILY, First dose on [facility] 12/12/18 | | PDT | | [...] 16:24 | | | | | dose, [place] 12/08/18 at 1645 | | PDT | [...] | | | | | PRN, Starting [facility] 12/05/18 at | | PDT | | | | | 0212, Until [facility] 12/05/18 at 0212 | | | | | | + +-------+ +------+---+ + +---+---+ | | | +---+---+ + +-------+ +------+---+--------+ | lidocaine (XYLOCAINE) 10 mg/mL | Given | | 1 mL | | Right | | (1 %) injection INTRAPROCEDURE | | 9 02:41 | | | Arm | | PRN, Starting [facility] 12/05/18 at | | PDT | | | | | 0241, Until [facility] 12/05/18 at 0245 | | | | [...] | | | | ONCE, 1 dose, [facility] 12/05/18 at 0830 | | PDT | [...] | | | | ONCE, 1 dose, [facility] 12/05/18 at 0345 | | PDT | [...]
--- OUTSIDE RECORDS SUMMARY | ~2018-12-15 | XMS | Encounter Summary ---
Demographics + + + | Address | [address] | | | [place] [address] | + + + | Home Phone | | + + + | Preferred Language | Unknown | + + + | Marital Status | Single | + + + | Yarsani Affiliation | NRP | + + + | Race | White | + + + | Ethnic Group | Not or | + + + Author + + + | Author | [facility] | + + + | Organization | [facility] | + + + | Address [...] Team Providers + +------+ + | Care Pneumatic Tool Operator Name | Role | Phone | [...] | Diagnoses | Jt, | 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 | | | | | Procedures | [address] | [address] | | | | | MRI BRAIN | Ave | Mailcode: | | | | | WWO CONTRAST | [place] | [facility] | | | | | [place] MRI | [address] | for Health | | | | | BRAIN COMBO | Phone: | and Healing, | | | | | | [phone] | [facility] Floor | | | | | | Fax: | [place], [place] | | | | | | [phone] | [address] | | | | | | | Phone: | | | | | | | [phone] | | | | | | | Fax: | | | | | | | [phone] | +--------+--------+ + + + + Diagnostic Testing (Routine) +--------+--------+ + + + + | Status | Reason | Specialty | Diagnoses / | Referred By | Referred To | | | | | Procedures | Contact | Contact | +--------+--------+ + + + + | Closed | | Radiology | Diagnoses | Werle, | Rad Mri Ch[facility] | | | | | Neoplasm | CARLO lAlen | [address] | | | | | Procedures | [address] | [address] | | | | | MRI BRAIN | Ave | Mailcode: | | | | | WWO CONTRAST | [place], [place] | [facility] | | | | | [place] MRI | [address] | for Health | | | | | BRAIN COMBO | Phone: | and Healing, | | | | | | [phone] | 3rd Floor | | | | | | Fax: | [place], [place] | | | | | | [phone] | [address] | | | | | | | Phone: | | | | | | | [phone] | | | | | | | Fax: | | | | | | | [phone] | +--------+--------+ + + + + Reason for Visit Diagnostic Testing (Routine) +--------+--------+ + + + + | Status | Reason | Specialty | Diagnoses / | Referred By | Referred To | | | | | Procedures | Contact | Contact | +--------+--------+ + + + + | Closed | | Radiology | Diagnoses | Werle, | 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 | | | | | Procedures | [address] | [address] | | | | | MRI BRAIN | Ave | Mailcode: | | | | | WWO CONTRAST | [place], [place] | [facility] | | | | | [place] MRI | [address] | for Health | | | | | BRAIN COMBO | Phone: | and Healing, | | | | | | [phone] | 3rd Floor | | | | | | Fax: | [place], [place] | | | | | | [phone] | [address] | | | | | | | Phone: | | | | | | | [phone] | | | | | | | Fax: | | | | | | | [phone] | +--------+--------+ + + + + Encounter Details +--------+ + + + + | Date | Type | Department | Care Team | Description | +--------+ + + + + | 11/26/ | Hospital | Radiology/Imaging | Alejandro Waters NP | | | 2019 | Encounter | Lab at [facility] | [address] | | | | | [address] | [place], [place] | | | | | Mailcode: [facility] | [address] | | | | | [facility] | [phone] | | | | | and [address] | | | | | | Floor [place], [place] | | | | | | [address] | | | | | | [phone] | | | +--------+ + + + [...] kg (128 lb) | 11/26/2018 6:40 PM PDT | + + + + | Height | - | - | + + + + | Body Mass Index | 25 | 11/26/2018 6:40 PM PDT | + + + + in [...] Rd | | | | | | [place], [place] | | | | | | [address] | | | | | | [phone] | | | | | | | [...] + + + in this encounter Results MRI BRAIN WWO CONTRAST (11/26/2018 7:18 PM) + + + | Narrative | [...] 11/26/2018 8:56 PM Preliminary: Nomi Whitaker MD, | | | PhD 11/26/2018 8:53 PM Dictation initiated: Nomi Whitaker MD, | | | PhD 11/26/2018 7:43 PM | | + + [...] unspecified | + + Administered Medications + +---------+ +-------+------+------+ | Medication Order | MAR | Action | Dose | Rate | Site | | | Action | Date | | | | + +---------+ +-------+------+------+ | gadoterate meglumine (DOTAREM) | IV Push | 11/26/2018 | 12 mL | | | | 0.5 mmol/mL (376.9 mg/mL) | | 19:15 | | | | | injection 12 mL 12 mL (rounded | | PDT | | | | | from 11.62 mL = 0.2 mL/kg | | | | | | | 58.1 kg), intravenous, ONCE, 1 | | | | | | | dose, 11/26/18 at 1915 | | | | | | + +---------+ +-------+------+------+ +---+---+ | | | +---+---+ in this encounter
--- OUTSIDE RECORDS SUMMARY | ~2018-12-15 | XMS | Clinical Summary ---
Demographics + + + | Address | [address] | | | [address] | | | [place] [address] | + + + | Home Phone [...] | Author | [facility] | | | and [place] | + + + | Organization | [facility] | | | and [place] | + + + | Address | Unknown | + + + | Phone | Unavailable | + + + Support + + +---------+ + | Name | Relationship | Address | Phone | + + +---------+ + | Laura Allred | ECON | Unknown | | + + +---------+ + Care Team Providers + +------+ + | Care Multi Spindle Operator Name | Role | Phone | + +------+ + PP | Unavailable | + +------+ + Allergies Not on File Medications Not on file Active Problems Not on file Social History + +-------+ +--------+------+ | Tobacco [...] recent travel history available. | + + Plan of Treatment + + + + + | Health Maintenance | Due Date | Last Done | Comments | + + + + + | Vaccine: | | | | | Dtap/Tdap/Td (1 - | 0 | | | | Tdap) | | | | + + + + + | Vaccine: Zoster (1 | | | | | of 2) | 1 | | | + + + + + | Vaccine: | | | | | Pneumococcal 65+ | 6 | | | | Low/Medium Risk (1 | | | | | of 2 - PCV13) | | | | + + + + + | Vaccine: Influenza | | | | | (Season Ended) | 9 | | | + + + + + Results Not on filefrom Last 3 Months"
--- OUTSIDE RECORDS SUMMARY | ~2018-12-15 | XMS | Encounter Summary ---
Demographics + + + | Address | [address] | | | [place] [address] | + + + | Home Phone [...] Author + + + | Author | [facility] | + + + | Organization | [facility] | + + + | Address [...] Team Providers + +------+ + | Care Nurses' Association Executive Director Name | Role | Phone | + +------+ + | Lauryn Stuart | PCP | | + +------+ + Encounter Details +--------+ + + + + | Date | Type | Department | Care Team | Description | +--------+ + + + + | 12/14/ | Pharmacy | Outpatient Retail | | | | 2018 | Visit | [facility] | | | | | | [address] | | | | | | [facility] | | | | | | [place], [place] | | | | | | [address] | | | +--------+ + + + [...] Rd | | | | | | [place] | | | | | | [address] | | | | | | [phone] | | | | | | | | +--------+---------+ + + + as of this encounter Visit Diagnoses Not on filein this encounter
--- OUTSIDE RECORDS SUMMARY | ~2018-12-15 | XMS | Encounter Summary ---
Demographics + + + | Address | [address] | | | [place] [address] | + + + | Home Phone [...] Author + + + | Author | [facility] | + + + | Organization | [facility] | + + + | [...] Providers + +------+ + | Care Medical Director Occupational Health Name | Role | Phone | + [...] Pharmacy | | | | | | [address] | | | | | | [facility] | | | | | | [place], [place] | | | | | | [address] | | | +--------+ + + + [...] [address] | | | | | | [place] | | | | | | [address] | | | | | | [phone] | | | | | | | | +--------+---------+ + + + as of this encounter Visit Diagnoses Not on filein this encounter
--- OUTSIDE RECORDS SUMMARY | ~2018-12-15 | XMS | Encounter Summary ---
Demographics + + + | Address | [address] | | | [place] [address] | + + + | Home Phone | | + + + | Preferred Language | Unknown | + + + | Marital Status | Single | + + + | Amish Affiliation | NRP | + + + | Race | White | + + + | Ethnic Group | Not or | + + + Author + + + | Author | [facility] | + + + | Organization | [facility] | + + + | Address | [...] Team Providers + +------+ + | Care Quick Print Operator Name | Role | Phone | [...] | | | | | | [place], | | | | | | [place] [address] | | | | | | [phone] | | | +--------+ + + + [...] Rd | | | | | | [place], [place] | | | | | | [address] | | | | | | [phone] | | | | | | | | +--------+---------+ + + + as of this encounter Procedures + +--------+ + + + | Procedure Name | Priori | Date/Time | Associated Diagnosis | Comments | | | ty | | | | + +--------+ + + + | MI DIFFUSING | Routin | 12/02/2018 | Dyspnea on | | | CAPACITY | e | 3:55 PM | exertion | | | | | PDT | | | + +--------+ + + + | MI SPIROMETRY TEST | Routin | 12/02/2018 | [...]
--- OUTSIDE RECORDS SUMMARY | ~2018-12-15 | XMS | Clinical Summary ---
Demographics + + + | Address | [address] | | | [address] | | | [place] [address] | + + + | Home Phone [...] [facility] | | | and [place] | + + + | Organization | [facility] | | | and [...] Team Providers + +------+ + | Care Rock Crusher Operator Name | Role | Phone | [...]
--- OUTSIDE RECORDS SUMMARY | ~2018-12-15 | XMS | Encounter Summary ---
Demographics + + + | Address | [address] | | | [place] [address] | + + + | Home Phone | | + + + | Preferred Language | Unknown | + + + | Marital Status | Single | + + + | Uatsdin Affiliation | NRP | + + + [...] Team Providers + +------+ + | Care Hydro Technician Name | Role | Phone | [...] | | | | [address] | [facility] | | | | | [facility] Mailcode: | [place], [place] | | | | | [address] | [address] | | | | | [place], | [phone] | | | | | [place] [address] | | | | | | [phone] | | | +--------+ + + + [...] Rd | | | | | | [place], [place] | | | | | | [address] | | | | | | [phone] | | | | | | | | +--------+---------+ + + + as of this encounter Visit Diagnoses Not on filein this encounter
--- OUTSIDE RECORDS SUMMARY | ~2018-12-15 | XMS | Clinical Summary ---
Demographics + + + | Address | [address] | | | [place] [address] | + + + | Home Phone [...] Author + + + | Author | [facility] | + + + | Organization | [...] Team Providers + +------+ + | Care Retort Engineer Name | Role | Phone | + +------+ + | Lauryn Stuart | PP | | + +------+ + Source Comments SU[facility] is fully live on both [facility] and [facility] Allergies + + + + + [...] | + + + + + + Current Medications + + +--------+---------+------+------+-------+ | Prescription | Sig. | Disp. | Refills | Star | End | Statu | | | | | | t | Date | s | | | | | | Date | | | + + +--------+---------+------+------+-------+ | albuterol 90 | Inhale by mouth as | | | 12/2 | | Activ | | mcg/actuation | needed. | | | 9/20 | | e | | inhalation HFA | | | | 16 | | | | aerosol inhaler | | | | | | | + + +--------+---------+------+------+-------+ | ALPRAZolam 0.25 mg | Take by mouth as | | 3 | 03/2 | | Activ | | oral tablet | needed. | | | 0/20 | | e | | | | | | 19 | | | + + +--------+---------+------+------+-------+ | QVAR REDIHALER 40 | Inhale by mouth once | | | 03/0 | | Activ | | mcg/actuation | daily. | | | 03/08 | | e | | inhalation HFA | | | | 19 | | | | aerosol breath | | | | | | | | activated | | | | | | | + + +--------+---------+------+------+-------+ | buPROPion XL 300 | Take 1 tablet by | | | 03/0 | | Activ | | mg oral tablet | mouth once daily. | | | 01/06 | | e | | extended release 24 | | | | 19 | | | | hr | | | | | | | + + +--------+---------+------+------+-------+ | doxycycline | Take 100 mg by mouth | | | /2 | | Activ | | hyclate 100 mg oral | two times daily. | | | 05/09 | | e | | capsuleIndications: | Indications: skin | | | 16 | | | | dermatologic | infection | | | | | | + + +--------+---------+------+------+-------+ | estradiol 2 mg | Take 2 mg by mouth | | | 03/0 | | Activ | | oral tablet | once daily. | | | 5/20 | | e | | | | | | 19 | | | + + +--------+---------+------+------+-------+ | lansoprazole 30 mg | Take 30 mg by mouth | | | 03/0 | | Activ | | oral | once daily. | | | 20 | | e | | capsule,delayed | | | | 19 | | | | release(DR/EC) | | | | | | | + + +--------+---------+------+------+-------+ | SYNTHROID 50 mcg | Take 50 mcg by mouth | | | 03/0 | | Activ | | oral tablet | once daily. | | | 520 | | e | | | | | | 19 | | | + + +--------+---------+------+------+-------+ | nicotine 14 mg/24 | Apply to skin as | | | 03/2 | | Activ | | hr transdermal patch | needed. | | | 5/20 | | e | | 24 hour | | | | 19 | | | + + +--------+---------+------+------+-------+ | cilostazol 50 mg | Take 1 tablet by | | | 03/2 | | Activ | | oral tablet | mouth once daily. | | | 5/20 | | e | | | | | | 19 | | | + + +--------+---------+------+------+-------+ | cyanocobalamin | Take 1,000 mcg by | | | | | Activ | | 1,000 mcg oral | mouth once daily. | | | | | e | | tablet | | | | | | | + + +--------+---------+------+------+-------+ | Lactobacillus | Take 1 capsule by | | | | | Activ | | acidophilus | mouth once daily. | | | | | e | | (PROBIOTIC | | | | | | | | ACIDOPHILUS ORAL) | | | | | | | + + +--------+---------+------+------+-------+ | senna-docusate | Take 1 tablet by | | | 04/2 | | Activ | | [...] | | | | | + + +--------+---------+------+------+-------+ | oxyCODONE | Take 2 to 4 tablets | 75 | 0 | 04/2 | | Activ | | (immediate release) | by mouth every four | tablet | | 6/20 | | e | | 5 mg oral | hours as needed for | | | 19 | | | | tabletIndications: | severe pain. | | | | | | | Pain | Indications: Pain | | | | | | + + +--------+---------+------+------+-------+ | Lidocaine 4 % | Apply 1 patch to | | | 04/2 | | Activ | | topical adhesive | affected area once | | | 6/20 | | e | | patch,medicatedIndic | daily as needed. | | | 19 | | | | ations: neuropathic | Indications: | | | | | | | pain | neuropathic pain | | | | | | + + +--------+---------+------+------+-------+ | acetaminophen 325 | Take 1-2 tablets by | | | 04/2 | | Activ | | mg oral | mouth every six | | | 03/08 | | e | | tabletIndications: | hours as needed. | | | 19 | | | | fever, Pain | Indications: fever, | | | | | | | | Pain | | | | | | + + +--------+---------+------+------+-------+ | | Take 0.5 tablets by | [...] | | | | | + + +--------+---------+------+------+-------+ Active Problems + + + | Problem | Noted Date | + + + | Hypophosphatemia | 12/08/2018 | + + + + + | Last Assessment & Plan: Profound hypophosphatemia after TF | | started concerning for refeeding syndrome- Ok to restart feeds- | | Check lytes q12h | + + + + + | Acute respiratory distress syndrome (ARDS) ([facility]) | 12/07/2018 | + + + | Vocal cord paralysis | 12/07/2018 | + + + + [...] be | | done during an outpatient visit"-Fu ENT recs this week-Per | | Thoracic fellow ok to rechallenge swallow if ok from ICU's | | perspective | + + + + + | Aspiration pneumonitis (HCC) | 12/06/2018 | + + + + + | Last Assessment & Plan: Increasing oxygen requirements | | overnight from 12/05 to 12/06 with worsening ground glass opacities | | in right lung with concern for aspiration in setting of | | dysphagia.- Strict NPO, consider re consulting CHIEF OPERATING ENGINEER today pending | | course and ENT [...] placed on 12/07- Strict NPO- ENT performed PERFORMANCE IMPROVEMENT SPECIALIST scope | | with evidence of left [...] Plan: - Continue SSI | + + Encounters +--------+ + + + + | Date | Type | Specialty | Care Team | Description | +--------+ + + + + | 12/14/ | Pharmacy | | | | | 2019 | Visit | | | | +--------+ + + + + | 12/13/ | Quality Control Manager | | Alejandro Waters NP | Malignant neoplasm | | 2018 | | | | of lung, unspecified | | | | | | laterality, | | | | | | unspecified part of | | | | | | lung (HCC) (Primary | | | | | | Dx) | +--------+ + + + + | 12/07/ | Anesthesia | | Mango Ceja MD | | | 2019 | Event | | | | +--------+ + + + + | 12/07/ | Procedure | | | | | 2019 | Pass | | | | +--------+ + + + + | 12/07/ | Surgery | | Derrick Handley, Bhavik PERCUTANEOUS | | 2018 | | | | ENDOSCOPIC | | | | | | GASTROSTOMY | +--------+ + + + + | 12/04/ | Hospital | | Manoj Kumar MD | | | 2019 - | Encounter | | | | | | | | | | | 12/14/ | | | | | | 2019 | | | | | +--------+ + + + + +---+ + | | Discharge | | | Summaries | | | - Nolan, | | | Elysha K, | | | PA-C - | | | 12/14/2018 | | | 9:27 AM | | | PDT | | | Formatting | | | of this | | | note may be | | | different | | | from the | | | original.Th | | | oracic | | | Surgery | | | Discharge | | | SummaryPati | | | ent Name: | | | SUSSY LEANDRO | | | OWENSPatien | | | t MRN: | | | [id number] | | | charge | | | Attending: | | | Manoj | | | Stacy, | | | MDSummary | | | Author: | | | ELYSHA | | | NOLAN PA; | | | ALEJANDRO | | | WERLE, | | | NPDate of | | | admission: | | | 12/04/2018Da | | | te of | | | discharge: | | | 12/14/2018Pr | | | inciple | | | diagnosis: | | | 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 | | | omaSecondar | | | y | | | diagnoses: | | | Post-op | | | painDepress | | | ionAnxietyP | | | rolonged | | | air | | | leakVocal | | | cord | | | paralysisHy | | | pertensionP | | | rotein/faizan | | | nahum | | | malnutritio | | | nGERDIBSHyp | | | othyroidism | | | Principle | | | procedure: | | | Flexible | | | bronchoscop | | | y, | | | endobronchi | | | al | | | ultrasound | | | needle | | | aspiration | | | biopsy | | | level 7 and | | | 4 L, | | | cervical | | | mediastinos | | | copy, | | | biopsy of | | | level 7 and | | | 4R lymph | | | nodes, left | | | | | | thoracoscop | | | y, left | | | muscle-spar | | | ing | | | thoracotomy | | | , left | | | upper | | | lobectomy | | | with sleeve | | | resection | | | of airway | | | and | | | pulmonary | | | artery with | | | pulmonary | | | artery | | | plasty with | | | | | | pericardial | | | patch, | | | mediastinal | | | lymph node | | | | | | dissections | | | level 5, | | | 6, 7, 9, L, | | | 4L and | | | hilar lymph | | | nodes | | | (12/04/2018) | | | Other | | | procedures: | | | Thoracic | | | epidural | | | catheter | | | placement | | | (12/04/2018) | | | Left | | | brachial | | | Midline | | | placement | | | (12/07/2018) | | | PEG | | | placement | | | (12/07/2018) | | | Pleural | | | blood patch | | | | | | (12/12/2018) | | | Hospital | | | course: | | | Sussy Leandro | | | Allred is a | | | 68 year old | | | woman with | | | a history | | | of left | | | upper chest | | | and neck | | | swelling | | | found to | | | have | | | bilateral | | | lung | | | nodules | | | concerning | | | for | | | malignancy | | | who was | | | referred to | | | our | | | service for | | | evaluation | | | and | | | treatment. | | | The patient | | | was | | | evaluated, | | | deemed an | | | appropriate | | | candidate | | | for | | | surgery, | | | and plans | | | were made | | | for the | | | patient to | | | undergo the | | | | | | above-liste | | | d | | | procedure. | | | On the day | | | of the | | | patient's | | | planned | | | procedure, | | | the patient | | | was taken | | | to the | | | operating | | | theater and | | | underwent | | | the | | | above-liste | | | d | | | procedure. | | | During the | | | procedure, | | | no | | | complicatio | | | ns were | | | noted. At | | | the end of | | | the | | | procedure, | | | appropriate | | | chest | | | drains were | | | placed, | | | the patient | | | was | | | extubated, | | | and | | | transferred | | | to the | | | post-anesth | | | esia care | | | unit. Once | | | recovered, | | | the patient | | | was | | | transferred | | | to the | | | post-operat | | | [facility] ICU, | | | where she | | | remained | | | for five | | | days. On | | | post-op day | | | (POD) | | | five, the | | | patient was | | | | | | transferred | | | to the | | | post-surgic | | | al drake | | | where she | | | remained | | | for the | | | rest of the | | | | | | hospitaliza | | | tion. | | | Post-operat | | | ively, she | | | endured a | | | prolonged | | | air leak, | | | resolved | | | prior to | | | discharge. | | | Her left | | | recurrent | | | laryngeal | | | nerve was | | | sacrificed | | | as part of | | | her | | | operation; | | | thus, she | | | experienced | | | marked | | | dysphonia | | | and | | | dysphagia | | | following | | | her | | | procedure. | | | ENT & ENT | | | Speech were | | | consulted. | | | Glottic | | | closure | | | noted on | | | direct | | | laryngoscop | | | y, and | | | recommendat | | | ions were | | | for her to | | | consider | | | medializati | | | on | | | thyroplasty | | | in several | | | months, | | | but not | | | during this | | | | | | hospitaliza | | | tion. Given | | | her | | | dysphagia, | | | EGS was | | | consulted, | | | and a PEG | | | tube was | | | placed. ENT | | | Speech | | | followed | | | the patient | | | during her | | | | | | hospitaliza | | | tion, and | | | approved | | | advancement | | | of her | | | diet up to | | | regular | | | without | | | restriction | | | s prior to | | | discharge. | | | Her enteral | | | feeds were | | | | | | discontinue | | | d and not | | | required at | | | discharge. | | | Prior to | | | discharge, | | | the patient | | | had | | | satisfactor | | | y pain | | | control | | | with oral | | | pain | | | medications | | | only, was | | | ambulating | | | without | | | difficulty, | | | and was | | | tolerating | | | adequate PO | | | intake | | | without | | | nausea, | | | vomiting, | | | or | | | constipatio | | | n. The | | | patient was | | | discharged | | | to home on | | | 14 December | | | in | | | satisfactor | | | y | | | condition. | | | Discharge | | | Medications | | | : Allred, | | | Sussy Leandro | | | Home | | | Medication | | | Instruction | | | s | | | ABRAHAN:[id number] | | | 5 Printed | | | on:12/13/18 | | | 1550 | | | Medication | | | Information | | | | | | | | | acetaminoph | | | en 325 mg | | | oral | | | tabletTake | | | 1-2 tablets | | | by mouth | | | every six | | | hours as | | | needed. | | | Indications | | | : fever, | | | Pain | | | albuterol | | | 90 | | | mcg/actuati | | | on | | | inhalation | | | HFA aerosol | | | | | | inhalerInha | | | le by mouth | | | as needed. | | | | | | ALPRAZolam | | | 0.25 mg | | | oral | | | tabletTake | | | by mouth as | | | needed. | | | | | | buPROPion | | | XL 300 mg | | | oral tablet | | | extended | | | release 24 | | | hrTake 1 | | | tablet by | | | mouth once | | | daily. | | | | | | cilostazol | | | 50 mg oral | | | tabletTake | | | 1 tablet by | | | mouth once | | | daily. | | | | | | cyanocobala | | | min 1,000 | | | mcg oral | | | tabletTake | | | 1,000 mcg | | | by mouth | | | once daily. | | | | | | doxycycline | | | hyclate | | | 100 mg oral | | | | | | capsuleTake | | | 100 mg by | | | mouth two | | | times | | | daily. | | | Indications | | | : skin | | | infection | | | | | | estradiol 2 | | | mg oral | | | tabletTake | | | 2 mg by | | | mouth once | | | daily. | | | | | | Lactobacill | | | us | | | acidophilus | | | (PROBIOTIC | | | | | | ACIDOPHILUS | | | ORAL)Take | | | 1 capsule | | | by mouth | | | once daily. | | | | | | lansoprazol | | | e 30 mg | | | oral | | | capsule,del | | | ayed | | | release(DR/ | | | EC)Take 30 | | | mg by mouth | | | once | | | daily. | | | | | | Lidocaine 4 | | | % topical | | | adhesive | | | patch,medic | | | atedApply 1 | | | patch to | | | affected | | | area once | | | daily as | | | needed. | | | Indications | | | : | | | neuropathic | | | pain | | | nicotine | | | 14 mg/24 | | | hr | | | transdermal | | | patch 24 | | | hourApply | | | to skin as | | | needed. | | | | | | oxyCODONE | | | (immediate | | | release) 5 | | | mg oral | | | tabletTake | | | 2-4 tablets | | | by mouth | | | every four | | | hours as | | | needed for | | | severe | | | pain. | | | Indications | | | : Pain | | | QVAR | | | REDIHALER | | | 40 | | | mcg/actuati | | | on | | | inhalation | | | HFA aerosol | | | breath | | | activatedIn | | | vernon by | | | mouth once | | | daily. | | | | | | senna-docus | | | ate 8.6-50 | | | mg oral | | | tabletTake | | | 1 tablet by | | | mouth | | | twice daily | | | as needed | | | for | | | constipatio | | | n. | | | Indications | | | : | | | constipatio | | | n | | | SYNTHROID | | | 50 mcg oral | | | tabletTake | | | 50 mcg by | | | mouth once | | | daily. | | | | | | triamterene | | | -hydrochlor | | | othiazide | | | 37.5-25 mg | | | oral | | | tabletTake | | | 0.5 tablets | | | by mouth | | | once daily. 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 | | | heavy | | | machinery | | | while | | | taking | | | narcotic | | | pain | | | medications | | | .Discharge | | | Instruction | | | s: SUSSY | | | LEANDRO ALLRED | | | was advised | | | to contact | | | the | | | Thoracic | | | Surgery | | | Clinic or | | | call | | | if the | | | patient | | | experiences | | | fevers | | | greater | | | than 101.5 | | | F, chest | | | pain, chest | | | pressure, | | | new or | | | worse | | | shortness | | | of breath, | | | new or | | | worse | | | difficulty | | | breathing, | | | or new or | | | worse | | | incisional | | | redness, | | | tenderness, | | | swelling, | | | drainage, | | | or | | | inflammatio | | | n.Wound | | | care: The | | | patient was | | | advised to | | | remove all | | | dressings | | | one day | | | after the | | | last chest | | | tube was | | | removed and | | | do not | | | replace | | | unless | | | additional | | | drainage | | | continues. | | | Also, the | | | patient is | | | advised to | | | shower | | | beginning | | | no earlier | | | than two | | | days after | | | the last | | | chest tube | | | was | | | removed. | | | Showers | | | should | | | include a | | | mild soap | | | and the | | | wound sites | | | should be | | | pat-dried | | | only. No | | | salves, | | | lotions, or | | | oils | | | should be | | | applied to | | | the wound | | | site. The | | | patient was | | | advised to | | | avoid | | | immersion | | | of the | | | wounds in | | | any water | | | for at | | | least four | | | weeks after | | | the time | | | of the | | | patient's | | | surgery. | | | Discharge | | | exam: Vital | | | signs at | | | the time of | | | discharge: | | | Last | | | Vitals: BP | | | 107/64 (BP | | | Location: | | | Right upper | | | arm, | | | Patient | | | Position: | | | Sitting) | | | | Pulse 89 | | | | Temp 36.8 | | | C (98.2 | | | F) | | | | Resp 18 | | | | Ht 1.626 m | | | (5' 4") | | | | Wt 65.5 kg | | | (144 lb 6.4 | | | oz) | | | | SpO2 94% | | | | BMI 24.79 | | | kg/m | | | | BSA 1.72 | | | m 24 Hour | | | Vital | | | Min/Max: | | | Systolic | | | (24hrs), | | | Av , | | | Min:89 , | | | Max:107 | | | Diastolic | | | (24hrs), | | | Av, | | | Min:56, | | | Max:68Pulse | | | Min: 74 | | | Max: 89Temp | | | Min: 36.2 | | | C (97.2 | | | F) Max: | | | 37.3 C | | | (99.1 | | | F)Resp | | | Min: 16 | | | Max: 18SpO2 | | | Min: 94 % | | | Max: 98 | | | %Intake/Out | | | put Summary | | | (Last 24 | | | hours) at | | | 12/14/18 | | | 0927Last | | | data filed | | | at 12/14/18 | | | 0738 Gross | | | per 24 | | | hour Intake | | | | | | 885 ml | | | Output | | | | | | 410 ml Net | | | | | | 475 ml | | | Gen: | | | NADNeuro: | | | AOX3; | | | following | | | commandsHEE | | | NT: | | | Normocephal | | | ic; | | | atraumatic; | | | Nares | | | patent; | | | MMMNeck: | | | Supple, | | | non-tender; | | | no JVD or | | | tracheal | | | deviationLu | | | ngs: | | | CTABCV: | | | RRR, S1 S2; | | | no S3 or | | | S4; no | | | MRGBAbd: | | | S/NT/ND; + | | | flatus; + | | | BM in last | | | three | | | daysExt: | | | MAEW; no | | | C/C/E; all | | | extremities | | | warm with | | | +2 distal | | | pulsesWound | | | site: | | | C/D/I; no | | | evidence of | | | | | | separation, | | | | | | dehiscence, | | | or | | | infectionFo | | | llow-up | | | appointment | | | (s): 3 December, | | | 2019 at | | | 10:15 AM in | | | the | | | Thoracic | | | Surgery | | | Clinic; a | | | referral | | | has been | | | placed for | | | her to see | | | our medical | | | | | | oncologists | | | for | | | considerati | | | on of | | | adjuvant | | | therapy. - | | | Follow-up | | | with | | | An | | | to be | | | arrangedSmo | | | royal | | | cessation | | | counseling: | | | provided | | | this | | | hospitaliza | | | tionPatholo | | | gy report: | | | Clinical | | | History 68 | | | year old | | | female with | | | a history | | | of left | | | upper lobe | | | nodule and | | | mediastinal | | | adenopathy | | | Final | | | Pathologic | | | Diagnosis | | | A. Lymph | | | node, level | | | 7, | | | biopsy:? | | | Fragments | | | of lymph | | | node with | | | metastatic | | | carcinoma | | | (08/20)? Sales | | | cytokeratin | | | | | | immunostain | | | confirms | | | presence of | | | scattered | | | tumor cells | | | B. Lymph | | | node, | | | level 4R, | | | biopsy:? | | | Fragments | | | of lymph | | | node | | | negative | | | for | | | metastasis | | | (0/1) C. | | | Lymph node, | | | additional | | | level 7, | | | biopsy:? | | | Fragments | | | of lymph | | | node | | | negative | | | for | | | metastasis | | | (0/1) D. | | | Lymph node, | | | level 9L, | | | biopsy:? | | | Two lymph | | | nodes | | | negative | | | for | | | metastasis | | | (0/2) E. | | | Lymph node, | | | level 4L, | | | biopsy:? | | | Metastatic | | | carcinoma | | | in one | | | lymph node | | | (08/20) F. | | | Lymph node, | | | level 10L, | | | biopsy:? | | | Two lymph | | | nodes | | | negative | | | for | | | metastasis | | | (0/2) G. | | | Lymph node, | | | proximal | | | level 10L, | | | biopsy:? | | | Metastatic | | | carcinoma | | | in one of | | | three lymph | | | nodes | | | (08/22) H. | | | Lymph node, | | | level 11L, | | | biopsy:? | | | Metastatic | | | carcinoma | | | in one | | | lymph node | | | (08/20) I. | | | Lymph node, | | | level 7, | | | biopsy:? | | | One lymph | | | node | | | negative | | | for | | | metastasis | | | (0) J. | | | Lung, AP | | | window, | | | biopsy:? | | | One lymph | | | node | | | positive | | | for | | | metastatic | | | carcinoma | | | (08/20) K. | | | Lymph node, | | | 11L lower | | | lobe, | | | biopsy:? | | | Fragments | | | of lymph | | | node with | | | metastatic | | | carcinoma | | | (08/20) L. | | | Lymph node, | | | level 11L | | | BIFURCATION | | | , biopsy:? | | | One lymph | | | node with | | | metastatic | | | carcinoma | | | (08/20)? | | | Tumor is | | | also | | | present in | | | adjacent | | | soft tissue | | | (not due | | | to | | | extracapsul | | | ar | | | extension) | | | M. Lymph | | | node, 5-6 | | | node, | | | biopsy:? | | | Metastatic | | | carcinoma | | | in one | | | lymph node | | | (08/20), 1.8 | | | cm. No | | | extracapsul | | | ar | | | extension | | | N. Lymph | | | node, 3A | | | node, | | | biopsy:? | | | One lymph | | | node | | | negative | | | for | | | metastasis | | | (0) O. | | | Lymph node, | | | 3 | | | superior, | | | biopsy:? | | | Metastatic | | | carcinoma | | | in three of | | | nine lymph | | | nodes | | | (10/26)? | | | Largest | | | metastatic | | | focus | | | measures | | | 2.6 cm (per | | | gross | | | description | | | )? No | | | extracapsul | | | ar | | | extension | | | P. Lymph | | | node, 3 | | | most | | | superior, | | | biopsy:? | | | Two lymph | | | nodes | | | negative | | | for | | | metastasis | | | (02) Q. | | | Lung, upper | | | lobe, left | | | upper | | | lobectomy:? 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 | | | Tumor | | | penetrates | | | and is | | | present on | | | the pleural | | | surface | | | (PL2) with | | | adherent | | | fibrin ? | | | Lymphovascu | | | lar and | | | perineural | | | invasion | | | identified? | | | Metastatic | | | carcinoma | | | in two of | | | two lymph | | | nodes | | | (2/2)? | | | Resection | | | margins are | | | negative | | | for tumor? | | | AJCC | | | pathologic | | | stage (8th | | | edition): | | | [id number] Com | | | ment: The | | | tumor is | | | predominate | | | ly solid, | | | immunostain | | | s for p63 | | | (squamous | | | differentia | | | tion) and | | | TTF-1 are | | | negative | | | (Q7). | | | There are | | | areas with | | | definite | | | gland | | | formation | | | and signet | | | ring like | | | cells are | | | seen in | | | some of the | | | lymph | | | nodes. | | | There is | | | extensive | | | lymphovascu | | | lar | | | invasion. | | | The tumor | | | present on | | | the pleural | | | surface is | | | TTF-1 | | | positive | | | and | | | calretinin | | | negative | | | (Q11). | | | Copies of | | | this | | | summary | | | should be | | | sent to: | | | Lauryn | | | Sade, | | | MALLIKA; Rell | | | Bony MD | +---+ + +--------+ +---+ + + | 12/04/ | Procedure | | | | | 2019 | Pass | | | | +--------+ +---+ + + | 12/04/ | Surgery | | Manoj Kumar MD | FLEXIBLE | | 2018 | | | | BRONCHOSCOPY, | | | | | | ENDOBRONCHIAL | | | | | | ULTRASOUND GUIDED | | | | | | LYMPH NODE BIOPSIES, | | | | | | MEDIASTINOSCOPY; | +--------+ +---+ + + | 12/02/ | Telephone-S | | | Pre-operative | | 2018 | cheduled | | | evaluation | +--------+ +---+ + + | 12/02/ | Anesthesia | | Kylee Rubalcava RN | | | 2019 | Event | | | | +--------+ +---+ + + | 12/02/ | Telephone | | Heladio Francisco | | | 2018 | | | DEBBIE | | +--------+ +---+ + + | 11/26/ | Hospital | | Alejandro Waters NP | | | 2018 | Encounter | | | | +--------+ +---+ + + | 11/26/ | Lab | | | Neoplasm | | 2018 | | | | | +--------+ +---+ + + | 11/26/ | Hospital | | Alejandro Waters NP | | | 2018 | Encounter | | | | +--------+ +---+ + + | 11/26/ | Results/Int | | | Dyspnea on exertion | | 2018 | erpretation | | | (Primary Dx) | +--------+ +---+ + + | 11/26/ | Hospital | | Papito Chan Ped | | | 2018 | Encounter | | | | +--------+ +---+ + + | 11/26/ | Hospital | | | | | 2019 | Encounter | | | | +--------+ +---+ + + | 11/25/ | Telephone | | Stephanie Munoz RN | Appointment | | 2019 | | | | | +--------+ +---+ + + | 11/22/ | Office | | Manoj Kumar MD | Neoplasm (Primary | 2018 | Visit | | | Dx) | +--------+ +---+ + + | 11/22/ | Procedure | | | | | 2018 | Pass | | | | +--------+ +---+ + + | 10/29/ | Quality Control Manager | | Rell Lovett, | Lung nodule (Primary | 2018 | | | MD | Dx) | +--------+ +---+ + + | 10/29/ | Abstract | | Service, Pulmonary | | | 2019 | | | Consult | | +--------+ +---+ + + from Last 3 Months Social History + + + +--------+------+ | [...] AM PDT | + + + + Plan of Treatment +--------+---------+ + + + | Date | Type | Specialty | Care Team | Description | +--------+---------+ + + + | 12/20/ | Office | | Manoj Kumar MD | | | 2019 | Visit | | [address] | | | | | [address] | | | | | | [place], [place] | | | | | | [address] | | | | | | [phone] | | | | | | | | +--------+---------+ + + + + + + + + | Health Maintenance | Due Date | Last Done | Comments | + + + + + | Pneumococcal (Adult) | | | | | (1 of 2 - PCV13) | 6 | | | + + + + + | Influenza (Flu) | Completed | 06/02/2018, 07/02/2017, | | | vaccination | | 08/01/2016, Additional history | | | | | exists | | + + + + + Implants + +------+--------+ +--------+--------+--------+ | Implanted | Type | Area | Manufacture | Device | Expira | Model | | | | | r | | tion | / | | | | | | Identi | Date | Serial | | | | | | fier | | / Lot | + +------+--------+ +--------+--------+--------+ | Patch Cardiovascular 8x6cm | | Left: | SYNOVIS | | 04/10/ | [id number] | | Marly-Guard Bovine Pericardium | | Chest | | | 2022 | NBIO / | | [place] [employer] Sterile | | | | | | | | Disposable - | | | | | | /[id number] | | [id number]: Qty: 1 on | | | | | | 26-135 | | 12/04/2018 by Stacy, | | | | | | [id number] | | MD Manoj | | | | | | | + +------+--------+ +--------+--------+--------+ | [employer] | | Left: | BARD | | 09/16/ | [id number] | | 11/02x3/8in Bard Thk1.65mm | | Chest | | | 2022 | / | | Rectangle Ptfe Fowler Sterile - | | | | | | /[id number] | | [id number]: Qty: 1 | | | | | | 623 | | on 12/04/2018 by Stacy, | | | | | | | | MD Manoj | | | | | | | + +------+--------+ +--------+--------+--------+ Procedures + +--------+ + + + | [...] | + +--------+ + + + | ETT | Routin | 12/07/2018 | | [...] + | ART LINE | Routin | 12/06/2018 | | Results [...] + +--------+ + + + | TO PULPING MACHINE OPERATOR | Routin | 12/05/2018 | | Results [...] | + +--------+ + + + | ETT | Routin | 12/04/2018 | | [...] | + +--------+ + + + | ETT | Routin | 12/04/2018 | | [...] | + +--------+ + + + | AR SPIROMETRY TEST | Routin | 12/02/2018 | Dyspnea on | | | | e | 3:55 PM | exertion | | | | | PDT | | | + +--------+ + + + | AR DIFFUSING | Routin | 12/02/2018 | Dyspnea [...] | | + +--------+ + + + from Last 3 Months Results CAPILLARY BLOOD GLUCOSE (NO CHG), POC (12/14/2018 8:06 AM)Only the most recent of 17 resul ts within the time period is included. + +---------+ + + | Component | [...] + + | [facility] | [address] | [place], [place] | | | [place] POINT OF CARE | [facility] | [address] | | | TESTS | | | | + + + + + X-RAY CHEST 2 VIEW (12/14/2018 7:10 AM)Only the most recent of 3 results within the time p raj is included. + + + | Narrative | Performed [...] | | + +---------+ + + | [facility] | | | | | VOICE RECOGNITION 2 | | | | + +---------+ + + X-RAY PORTABLE CHEST 1 VIEW (12/13/2018 8:24 AM)Only the most recent of 7 results within t he time period is included. + + + | Narrative | Performed At | + + + | EXAM: AR CHEST 1 VIEW HISTORY: eval interval change. [...] Interface - 12/13/2018 9:47 AM PDT EXAM: AR CHEST 1 | | VIEW HISTORY: eval [...] | | + +---------+ + + CARDIOLOGY (12/13/2018)Only the most recent of 7 results within the time period is included . + + + | Narrative | Performed At | + + + | | | + + + PROCEDURE NOTE (12/12/2018 4:28 [...] | MD Sae Cardiothoracic Surgery Fellow Pager: [phone] | | + + + MODIFIED BARIUM SWALLOWING (12/11/2018 [...] |Preliminary: Keith Jung MD | |Dictation initiated: eKith Jung MD 12/11/2018 11:37 AM | + + + +---------+ + + | Performing | Address | City/State/Zipcode | Phone Number | | Organization | | | | + +---------+ + + | [facility] | | | | | VOICE RECOGNITION 2 | | | | + +---------+ + + CBC (HEMOGRAM) ONLY (12/11/2018 5:01 AM)Only the most recent of 9 results within the time period is included. + + + + + | Component [...] 0.0 | 0.0 - 0.3 % | [facility] | | | | | SERVICES, CORE | + + + + + | NR# | 0.00 | 0.00 - 0.02 K/cu mm | [facility] | | | | [...] [facility] | [address] | [place] [address] | | | SERVICES, CORE | [address] | | | + + + + + RENAL FUNCTION SET (NA,K,CL,CO2,BUN,CREAT,GLUC,CA,PHOS,ALB ) (12/11/2018 5:01 AM)Only the most recent of 10 results within the time period is included. + + + + + | Component | Value | Ref Range | Performed At | + + + + + | GLUCOSE, PLASMA | 105 (H) | 70 - 99 mg/dL | [facility] | | (LAB) | | | SERVICES, CORE | + + + + + | BUN, PLASMA (LAB) | 20 | 6 - 20 mg/dL | [facility] | | | | | SERVICES, CORE | + + + + + | CREATININE PLASMA | 0.59 (L) | 0.60 - 1.10 mg/dL | [facility] | | (LAB) | | | SERVICES, CORE | + + + + + | EGFR - | >60 | >60 mL/min | [facility] | | [facility] | | | SERVICES, CORE | + + + + + | EGFR NON | >60 | >60 mL/min | [facility] | | -[facility] | | | SERVICES, CORE | + [...] [facility] | [address] | [place] [address] | | | SERVICES, CORE | [address] | | | + + + + + MAGNESIUM, PLASMA (12/11/2018 5:01 AM)Only the most recent of 10 results within the time pat anthony is included. + +-------+ + + | Component | Value | Ref Range | Performed At | + +-------+ + + | MAGNESIUM,PLASMA | 2.3 | 1.6 - 2.6 mg/dL | [facility] | | | | | SADE, CORE | + +-------+ + + + + | Specimen | + + | Blood - Blood | + + + + + + + | Performing | Address | City/State/Zipcode | Phone Number | | Organization | | | | + + + + + | [facility] | [address] | [place] [address] | | | SERVICES, CORE | [address] [...] + + + + + | [facility] | [address] | [place] [address] | | | SERVICES, KOKI | [address] [...] operation. | | | Dereck Rodriguez MD [facility] [address] [facility] | | | [place] [address] | | + + + ANE ETT (12/07/2018 3:11 PM) + + + [...] styletted ETT | | + + + PROCEDURE NOTE [...] attempt. Midline | | | lot number [id number]; there was excellent blood return. The | [...] Performed At | + + + | [facility] | [facility] DEPT OF | | [facility] Adult Echocardiography | CARDIOLOGY | | Laboratory [address] [place] [address], | | | [place] [address] Pt Name: | | | SUSSY ALLRED Study Date/Time 12/07/2018 / 8:45:36 | | | AMN: [id number] Most recent | | | prior: 11/26/2018Acc #: [id number] No. | | | previous echos: 1DOB: 1950 68 years Heart | | | Rate: 88 bpmHeight: 64.0 in | | | Blood Pressure: 104/64 mm/HgWeight: 145.0 | | | lb Gender: | | | FBSA: 1.71 m | | | Order ID: [id number] | | | [facility] Gayle Michael RCSSonographer | | | [...] Report | | | electronically signed by: [id number] Kathleen Sam MD (12/07/2018, | | | 4:42:18 PM) Final | | + + + + + | Procedure Note | + + | Interface, Cardiology Results - 12/07/2018 4:42 PM formerly [facility] | | [facility] Echocardiography Laboratory [address] [place] [address] | | [place], [place] [address] Pt Name: SUSSY REEVES | | WINNIE Study Date/Time 12/07/2018 / 8:45:36 AMMRN: [id number] Most | | recent prior: 11/26/2018Acc #: [id number] No. previous echos: 1DOB: | | 1950 68 years Heart Rate: 88 bpmHeight: 64.0 in Blood | | Pressure: 104/64 mm/HgWeight: 145.0 lb Gender: FBSA: | | 1.71 m | | Order ID: [id number] [facility] [place] | | [facility]:Referring Provider: Dennis Patel Performed: 2D, | [...] and indexed values Report electronically signed by: [id number] | | Kathleen Sam MD (12/07/2018, 4:42:18 [...] | | | |Report electronically signed by: [id number] Kathleen Sam MD (12/07/2018, 4:42:18 PM) | | | | | | | | Final | + + + + + + + | Performing | Address | City/State/Zipcode | Phone Number | | Organization | | | | + + + + + | [facility] | [address] | [place], [place] | | | CARDIOLOGY | [address] | [address] | | + + + + + PROCEDURE NOTE (12/06/2018 7:33 PM)ANE ART LINE (12/06/2018 9:20 AM) + + [...] present | | | Attending Name: BOUCHRA LOPEZ | | + + + BASIC METABOLIC SET (NA, K, CL, TCO2, BUN, CR, GLU, CA) (12/06/2018 6:29 AM)Only the most recent of 2 results within the time period is included. + +---------+ + + | Component | Value | Ref Range | Performed At | + +---------+ + + | GLUCOSE, PLASMA | 95 | 70 - 99 mg/dL | [facility] | | (LAB) | [...] >60 mL/min | [facility] | | [facility] | | | SERVICES, CORE | + +---------+ + + | EGFR NON | >60 | >60 mL/min | [facility] | | -[facility] | | | SERVICES, CORE | + [...] | + + + + + | [facility] | [address] | [place] [address] | | | SERVICES, CORE | [address] [...] Images archived to | | | institution artillery or naval gunfire observer | | + + + ICU FOCUSED TRANSTHORACIC ECHOCARDIOGRAM LIMITED [...] | | site: Radial Catheter size: 3 icelandic x 5 cm Number of | | | attempts: 3 Procedure comments: Left radial unable to get flash | | | on 2 attempt with US guidance R radial 1 attempt. Line | | | secured: Suture Complications: None | | + + + APTT (ACT. PART. THROMBO TIME) (12/04/2018 6:29 PM) + + + + + | Component | Value | Ref Range | Performed At | + + + + + | APTT | 25.2 (L) | 26.0 - 36.0 seconds | [facility] | | | | [...] + + + + + | [facility] | [address] | [place] [address] | | | SERVICES, [facility] | [address] | | | + + + + + OPERATION RECORD (12/04/2018 4:05 PM) + + | Procedure Note | + + | Manoj Kumar MD - 12/04/2018 4:05 PM PDT Date of Service: 12/04/2018 Attending | | Surgeon:Manoj Kumar MD Film Spooler(s):Pritesh Chang | | Bethel Quevedo MD Preoperative [...] ribs were reapproximated using | | multiple jeuuuz-ni-jrvkz #2 Vicryl sutures. Serratus closed with #1 Vicryl, | | subcutaneous tissue closed with 2-0 Vicryl, skin closed with 4-0 Vicryl. Sterile | | dressings were applied. A single 28-Taiwanese chest tube was placed through the inferior [...] 12/04/2018 15:15:41DT: 12/04/2018 16:05:12Job #: | | [id number] | + + ABG-FULL ABL, POC (12/04/2018 2:27 PM)Only the most recent of 3 results within the time pe riod is included. + + + + + | Component | Value | Ref Range | Performed At | + + + + + | PH ARTERIAL, POC | 7.38 | 7.37 - 7.44 | [facility] | | | | | [place] POINT OF | | | | | CARE TESTS | + + + + + | PO2 ARTERIAL, POC | 190 (H) | 72 - 104 mmHg | [facility] | | | [...] [facility] | | POC | | | HILL, POINT OF | | | | | CARE TESTS | + + + + + | O2 SAT ARTERIAL, POC | 99.7 (H) | 92.0 - 98.0 % | [facility] | | | | | IES[place], POINT OF | | | | | CARE TESTS | + + + + + | OXYHEMOGLOBIN, POC | 98.2 | 94.0 - 100 % | [facility] | | [...] 60 - 99 mg/dL | [facility] | | | | | IESHA, POINT [...] - [place] | | | | | HILL, POINT [...] + + + | [facility] | [address] | [place], [place] | | | MARISSA JULIAN OF CARE | [facility] | [address] | | | TESTS | | | | + + + + + ANE ETT (12/04/2018 1:12 [...] INTUBATION | | | ATTEMPT 1 Videolaryngoscopy: [facility] Standard geometry curved blade | | | [...] NARRATIVE Attending physically present Authorized by BOUCHRA OLPEZ | | | Performed by SUE DUNCAN [...] present Authorized by | | | BOUCHRA LOPEZ Performed by SUE DUNCAN Procedure | | | Comments: Easy BMV. First attempt my medical student- grade III v | | | with MAC 3 blade. Repositioned & Intubated on 2nd attempt. Atraumatic | | | intubation. | | + + + SURGICAL PATHOLOGY (12/04/2018 9:11 AM) + + + + + | Component | Value | Ref Range | Performed At | + + + + + | Clinical History | 68 year old female with | | [facility] DEPARTMENT | | | a history of left upper | | OF PATHOLOGY | | | lobe nodule and | | | | | mediastinal adenopathy | | | + + + + + | Final Pathologic | A. Lymph node, level 7, | | [facility] DEPARTMENT | | Diagnosis | biopsy: Fragments [...] lymph nodes | | | | | (1/3)H. Lymph node, | | | | | [...] metastatic carcinoma | | | | | (/)K. Lymph node, 11L | | | | [...] | | | | nine lymph nodes (9) | | | | | Largest metastatic [...] (8th edition): | | | | | [id number]: The | | | | | tumor [...] | PathologistPathology, | | | | | [facility] | | | | | [facility] electronic | | | [...] | LUNG (Lung - All | | [facility] DEPARTMENT | | | Specimens) [...] Description | Received are 18 | | [facility] DEPARTMENT | | | specimens fresh in | | OF PATHOLOGY | | | containers labeled with | | | | | the patient's name | | | | | (initials JAO) and | | | | | medical record number | | | | | [id number]. Lymph node, | | | | | [...] | surfaces. | | | | | Jump Roll Operator sections | | | | | are [...] positive | | | | | density, rental sales representative | | | | | sectionsP. [...] hilar mass. | | | | | Jump Roll Operator sections | | | | | are [...] node | | | | | from F6L7-K5: 3.2 cm | | | | | [...] apical mass, | | | | | rental sales representative sections, | | | | | to include relationship | | | | | with pleura in | | | | | [id number]: Subpleural | | | | | induration, | | | | | rental sales representative | | | | | [id number]: Uninvolved | | | | | parenchyma, | | | | | rental sales representative | | | | | aqxybxtnV88: 1 density | | | | | suggestive of lymph | | | | | node, ycqtzaftrC79: 1 | | | | | density [...] Intraoperative use | Frozen section | | [facility] DEPARTMENT | | only - Final | diagnosis: A1. Lymph | | OF PATHOLOGY | | diagnosis listed | node. level 7: Negative | | | | separately | for malignancy | | | | | (0/1)Frozen section | | | | | pathologist(s): Ravi | | | | | MD Whitney PhD | | | | | | | | | | PathologistPathology, | | | | | [facility] | | | | | UniversityFrozen section | | | | | diagnosis: A2. Lymph | | | | | node. level 7: Negative | | | | | for malignancy | | | | | (0/1)Frozen section | | | | | pathologist(s): Ravi | | | | | MD Whitney PhD | | | | | | | | | | PathologistPathology, | | | | | [facility] | | | | | UniversityFrozen section | | | | | diagnosis: B1. Lymph | | | | | node. level 4R: Negative | | | | | for malignancy | | | | | (0/1)Frozen section | | | | | pathologist(s): Ravi | | | | | MD Whitney PhD | | | | | | | | | | PathologistPathology, | | | | | [facility] | | | | [...] | PathologistPathology, | | | | | [facility] | | | | [...] | PathologistPathology, | | | | | [facility] | | | | [...] | PathologistPathology, | | | | | [facility] | | | | [...] | PathologistPathology, | | | | | [facility] | | | | [...] | PathologistPathology, | | | | | [facility] | | | | [...] | PathologistPathology, | | | | | [facility] | | | | [...] | PathologistPathology, | | | | | [facility] | | | | [...] | PathologistPathology, | | | | | [facility] | | | | [...] | PathologistPathology, | | | | | [facility] & [facility] | | | | [...] [facility] | | | | | [place] that point | | | + + [...] by [facility] | | | | | laboratories. It [...] | + + + + + | [facility] DEPARTMENT OF | [address] | [place] [address] | | | PATHOLOGY | [address] | | | + + + + + FINE NEEDLE ASPIRATE (12/04/2018 8:06 AM) + + + + + | Component | Value | Ref Range | Performed At | + + + + + | Clinical History | 68 year-old woman with a | | [facility] DEPARTMENT | | | PET-avid left upper | | OF PATHOLOGY | | | lobe nodule. | | | + + + + + | Final Pathologic | A. Lymph node, level 7, | | [facility] | | Diagnosis | [...] pathology case | | | | | ([id number])]. No | | | | | definite carcinoma cells | | | | | seen are seen in this | | | | | sampling, however see | | | | | case [id number]. Case | | | | | seen by:Kathryn | | | | | Reising, CT(ASCP) - | | | | | CytotechnologistTodd | | | | | MD Steve | | | | | | | | | | Pathology ResidentAaron | | | | | Halfpenlucas DO | | | | | | | | | | Cytopathology | | | | | FellowMick MD Shaan | | | | | | | | | | | | | | | PathologistPathology, | | | | | [facility] | | | | | University electronic [...] Impression | A: Evaluation episode | | [facility] DEPARTMENT | | | #1: [...] | PathologistPathology, | | | | | [facility] | | | | | [place] | | | + + + + + | Procedure Details | A. FNA by clinician. 3 | | [facility] DEPARTMENT | | | passes [...] + + + + + | [facility] | [address] | [place] [address] | | | [facility] | | | | | HEALTH + HEALING | | | | + + + + + [facility] | [address] | [place] [address] | | | PATHOLOGY | [address] | | | + + + + + INTRAPROCEDURE IMAGING (12/04/2018 6:13 AM) + + + | Narrative | Performed At | + + + | See admission or procedure notes for details of any intraprocedure | | | images obtained. | | + + + MRI BRAIN WWO CONTRAST (11/26/2018 7:18 PM) [...] | | + +---------+ + + CBC AND AUTO DIFF (11/26/2018 [...] 32.8 | 32.0 - 36.0 g/dL | [facility] [...] | 0.0 - 2.0 % | [facility] | | | | | SERVICES, | | | | | [facility] FOR | | | | | HEALTH + | | | | | HEALING | + + + + + | IG% | 0.5Comment: Increased | 0.0 - 1.0 % | [facility] | | | immature granulocytes | [...] | 1.80 - 7.70 K/cu mm | [facility] | | [...] | 0.00 - 0.10 K/cu mm | [facility] | | | | | SERVICES, | | | | | CENTER FOR | | | | | HEALTH + | | | | | HEALING | + + + + + | IG# | 0.03 | 0.00 - 0.10 K/cu mm | [facility] | | | | | SERVICES, [...] + | [facility] | [address] | [place] [address] | | | SERVICES, [facility] FOR | | | | | HEALTH + HEALING | | | | + + + + + CONFIRMATORY ABO/RH (11/26/2018 3:18 PM) + + [...] | + + + + + | [facility] | [address] | [place] [address] | | | SERVICES, | [address] | | | | TRANSFUSION MEDICINE | | | | + + + + + INR (11/26/2018 3:18 PM) + +-------+ + + | Component | Value | Ref Range | Performed At | + +-------+ + + | INR | 0.93 | 0.90 - 1.20 INR | [facility] | | | | | SERVICES, [...] | + + + + + | [facility] | [address] | [place] [address] | | | SERVICES, CORE | [address] | | | + + + + + ANTIBODY SCREEN (11/26/2018 3:18 PM) + + + + + | Component | Value | Ref Range | Performed At | + + + + + | Antibody Screen | Negative | | [facility] | | | | | SERVICES, [...] [facility] | [address] | [place] [address] | | | SERVICES, | [address] [...] + + + + + | [facility] | [address] | [place] [address] | | | SERVICES, | [address] | | | | TRANSFUSION MEDICINE | | | | + + + + + SPIROMETRY BEFORE / AFTER BRONCHODIL, PULM FUNCTION LAB (11/26/2018 1:31 PM) + + + + + | Component | Value | Ref Range | Performed At | + + + + + | PULMONARY | Site: [facility] and | | [facility] SPECIAL | | INTERPRETATION | [facility] | | DIAGNOSTICS - | | | [facility] [address], | | PULMONARY | | | [place], [place], | | FUNCTION | | | [id number]: | | | | | [id number] Name: WINNIE, | | | | | SUSSY John Date: | | | | | 11/26/2018 Second ID: | | | | | [id number]: | | | | | Sara HurstAge: | | | | | 68 : | | | | | 1950 Sex: | | | | | Female Race: | | | | | CaucasianHeight: | | | | | 162.50 Cms Weight: | | | | | 59.00 Kgs BSA: | | | | | 1.63Order IDs: | | | | | [id number] | | | | | Test(s): <SPIROMETRY [...] | + + + + + | EQT00-54% PRE | 1.79 | 2.00 L/sec | [facility] SPECIAL | | | | | DIAGNOSTICS - | | | | | PULMONARY | | | | | FUNCTION | + + + + + | ZMV96-43% PRE (%REF) | 89 | % | [...] + | [facility] | [address] | [place], [place] | | | DIAGNOSTICS - | [address] | [address] | | | PULMONARY FUNCTION | | | | + + + + + STRESS DOBUTAMINE ECHOCARDIOGRAM, ADULT (11/26/2018 11:43 AM) + + + | Narrative | Performed At | + + + | [facility] | [facility] DEPT OF | | [facility] Adult Echocardiography | CARDIOLOGY | | Laboratory [address] [place] [address] | | | [place] [address] Pt Name: | | | SUSSY ALLRED Study Date / Time 11/26/2018 / | | | 11:43:08 AMMRN: | | | [id number] Most recent prior: 0Acc | | | #: [id number] No. previous echos: | | | 0DOB: 1950 Age: 68 | | | years Gender: FHeight: 64.0 | | | in BSA: | | | 1.62 i5Esokzs: 129 lb Order | | | ID: [id number] medications: Diuretic and | | | Aspirin.Indications: Preoperative Evaluation Academic Manager: Tania Birmingham | | | [facility] Referring Provider: Alejandro Bishop Location: [facility] | | | Performed: Dobutamine stress echo and Definity contrast.History: 68 yo | | | with spiculated and PET avid CODY mass, 2.4 cm, PET avid AP window and | | | 3A lymph nodes.. Patient history has been obtained from the EHR | | | Dobutamine Stress Echocardiographic Report | | | + | | | --------+Final | | | Impressions: | | | | | | | | | | | | | | | | | | | | | 1. At baseline left ventricular systolic function is | | | normal. 2. There is chest pain | | | reported with | | | infusion. | | | 3. The blood pressure response was | | | flat. | | | | | | | | | | | | 4. EKG portion of stress test is | | | abnormal. | | | 5. At peak stress the LV function augments normally (See | | | comments below). 6. Echo negative for | | | ischemia. | | | 7. Low risk dobutamine stress echo | | | with > 85% age predicted maximal | | | heart rate. | | | | | [...] | | | 0=Unable to score, 1=Normal, | | | 2=Hypokinetic, | | | 3=Akinetic, 4=Dyskinetic, 5=Aneurysmal Low Dose All | | | segments are normal. 0=Unable to score, 1=Normal, | | | 2=Hypokinetic, | | | 3=Akinetic, 4=Dyskinetic, 5=Aneurysmal Peak All segments | | | are normal. 0=Unable to score, 1=Normal, | | | 2=Hypokinetic, | | | 3=Akinetic, 4=Dyskinetic, 5=Aneurysmal Recovery All segments are | | | normal. 0=Unable to score, 1=Normal, | | | 2=Hypokinetic, | | | 3=Akinetic, 4=Dyskinetic, 5=Aneurysmal Supervising RN: | | | Cara Torres, RNSupervising Physician: Damien Garner | | | electronically signed by: Hannah Mccormick MD (11/26/2018, 1:25:20 PM) | | | Final | | | | | | | | | | | | | | | | | | Final | | + + + + + | Procedure Note | + + | Interface, Cardiology Results - 11/26/2018 1:25 PM PDT [facility] | | [facility] [address] [place] [address] | | [place], [place] [address] Pt Name: SUSSY REEVES | | WINNIE Study Date / Time 11/26/2018 / 11:43:08 AMMRN: [id number] | | Most recent prior: 0Acc #: [id number] No. previous echos: 0DOB: | | 1950 Age: 68 years Gender: FHeight: 64.0 in BSA: | | 1.62 w0Eurphx: 129 lb Order ID: | | [id number] medications: Diuretic and Aspirin.Indications: Preoperative Evaluation | | Academic Manager: Tania Birmingham [facility] Referring Provider: Alejandro Bishop Location: | | [...] RN: Cara Torres, RNSupervising | | Physician: Hannah Mccormick MDReport electronically signed by: Hannah Mccormick MD | [...] | + + + + + | [facility] DEPT OF | [address] | [place], [place] | | | CARDIOLOGY | [address] | [address] | | + + + + + [...] | [facility] DEPT OF | [address] | [place], [place] | | | CARDIOLOGY | [address] | [address] | | + + + + + from Last 3 Months Insurance + +--------+ +------+-------+---------+ | Payer | Benefi | Subscriber | Type | Phone | Address | | | t Plan | ID | | | | | | / | | | | | | | Group | | | | | + +--------+ +------+-------+---------+ | AETNA DIRECT | AETNA | xxxxxxxxxx | PPO | | | | | DIRECT | | | | | + +--------+ +------+-------+---------+ + +--------+ +--------+ + + | Guarantor Name | Accoun | Relation to | Date | Phone | Billing Address | | | t Type | Patient | of | | | | | | | | | | + +--------+ +--------+ + + | SUSSY ALLRED | Person | Self | [birth year] Home: | [address] | | | [place] | | 1949 | [phone] | [place] [address] | | | johnson | | | [phone] | | + +--------+ +--------+ + +
--- OUTSIDE RECORDS SUMMARY | ~2018-12-15 | XMS | Clinical Summary ---
Demographics + + + | Address | [address] | | | [place] [address] | + + + | Home Phone | | + + + | Preferred Language | Unknown | + + + | Marital Status | Single | + + + | Methodist Affiliation | NRP | + + + | Race | White | + + + | Ethnic Group | Not or | + + + Author + + + | Author | [facility] | + + + | Organization [...] Team Providers + +------+ + | Care Baked And Graphite Inspector Name | Role | Phone | + +------+ + | Lauryn Stuart | PP | | + +------+ + Source Comments [facility] is fully live on both [facility] and [facility] [place] InPatient.[facility] Allergies + + + + + + [...] + | Acute respiratory distress syndrome (ARDS) ([facility]) | 12/07/2018 | + + + [...] | dysphagia.- Strict NPO, consider re consulting DIRECTOR OF CARDIAC CATH LAB today pending | | course and ENT [...] placed on 12/07- Strict NPO- ENT performed CHIROPRACTIC PHYSICIAN scope | | with evidence of left [...] + + + + | 12/13/ | Intern Product Marketing Manager | | Alejandro Waters NP | [...] | | t MRN: | | | [id number] | | | charge | | | [...] | | | s | | | ABRAHAN:[id number] | | | 5 Printed | | [...] +--------+ +---+ + + | 10/29/ | Intern Product Marketing Manager | | Rell Lovett, | [address] [...] [address] | | | | | | [place], [place] | | | | | | [address] | | | | | | [phone] | | | | | | | [...] Left: | SYNOVIS | | 04/10/ | [id number] | | Marly-Guard Bovine Pericardium | | Chest | | | 2022 | NBIO / | | [place] Process Sterile | | | | | | | | Disposable - | | | | | | /[id number] | | [id number]: Qty: 1 on | | | | | | 26-135 | | 12/04/2018 by Stacy, | | | | | | 6437 | | MD Manoj | | | | | | | + +------+--------+ +--------+--------+--------+ | [facility] | | Left: | BARD | | 09/16/ | [id number] | | 11/02x3/8in Bard Thk1.65mm | | Chest | | | 2022 | / | | Rectangle Ptfe Cofield Sterile - | | | | | | /[id number] | | [id number]: Qty: 1 | | | | | [...] + +--------+ + + + | TO EPIC RADIANT ANALYST | Routin | 12/05/2018 | | Results [...] | + +--------+ + + + | [place] SPIROMETRY TEST | Routin | 12/02/2018 | Dyspnea on | | | | e | 3:55 PM | exertion | | | | | PDT | | | + +--------+ + + + | [place] DIFFUSING | Routin | 12/02/2018 | Dyspnea [...] + + | [facility] | [address] | [place], [place] | | | IESHA POINT OF CARE | [facility] | [address] | | | TESTS | | | [...] | | + +---------+ + + | [facility] RADIOLOGY | | | | | VOICE RECOGNITION 2 | | | | + +---------+ + + X-RAY PORTABLE CHEST 1 VIEW (12/13/2018 8:24 AM)Only the most recent of 7 results within t he time period is included. + + + | Narrative | Performed At | + + + | EXAM: [place] CHEST 1 VIEW HISTORY: eval interval change. [...] Interface - 12/13/2018 9:47 AM PDT EXAM: [place] CHEST 1 | | VIEW HISTORY: eval [...] | MD Sae Cardiothoracic Surgery Fellow Pager: [phone] | | + + + MODIFIED BARIUM [...] 0.0 | 0.0 - 0.3 % | [facility] | | | | | SERVICES, CORE | + + + + + | NR# | 0.00 | 0.00 - 0.02 K/cu mm | [facility] | | | | | SERVICES, CORE | + + + + + + + | Specimen | + + | Blood - Blood | + + + + + + + | Performing | Address | City/State/Zipcode | Phone Number | | Organization | | | | + + + + + | [facility] | [address] | [place] [address] | | | SERVICES, CORE | [address] [...] 20 | 6 - 20 mg/dL | [facility] | | | | | SERVICES, CORE | + + + + + | CREATININE PLASMA | 0.59 (L) | 0.60 - 1.10 mg/dL | [facility] | | (LAB) | | | SERVICES, CORE | + + + + + | EGFR - | >60 | >60 mL/min | [facility] | | ENGLISH | | | SERVICES, CORE | + + + + + | EGFR NON | >60 | >60 mL/min | [facility] | | -ENGLISH | | | SERVICES, CORE | + [...] [facility] | [address] | [place] [address] | | | SERVICES, CORE | PARK [...] | + + + + + | [facility] | [address] | [place] [address] | | | SERVICES, CORE | [address] [...] | + + + + + | [facility] | [address] | [place] [address] | | | SERVICES, KOKI | [address] [...] operation. | | | Dereck Rodriguez MD [facility] [address]K [address] [facility] | | | [place] [address] | | + + + ANE ETT [...] attempt. Midline | | | lot number [id number]; there was excellent blood return. The | [...] | + + + | [facility] | [facility] DEPT OF | | [facility] Adult Echocardiography | CARDIOLOGY | | Laboratory [address] [place] [address], | | | [place] [address] Pt Name: | | | SUSSY ALLRED Study Date/Time 12/07/2018 / 8:45:36 | | | AMN: [id number] Most recent | | | prior: 11/26/2018Acc #: [id number] No. | | | previous echos: 1DOB: 1950 68 years Heart | | | Rate: 88 bpmHeight: 64.0 in | | | Blood Pressure: 104/64 mm/HgWeight: 145.0 | | | lb Gender: | | | FBSA: 1.71 m | | | Order ID: [id number] | | | [facility] Gayle Michael RCSSonographer | [...] Report | | | electronically signed by: [id number] Kathleen Sam MD (12/07/2018, | | | 4:42:18 PM) Final | | + + + + + | Procedure Note | + + | Interface, Cardiology Results - 12/07/2018 4:42 PM [facility] [employer] | | [facility] Echocardiography Laboratory [address] [place] [address] | | [place], [place] [address] Pt Name: SUSSY REEVES | | WINNIE Study Date/Time 12/07/2018 / 8:45:36 AMMRN: [id number] Most | | recent prior: 11/26/2018Acc #: [id number] No. previous echos: 1DOB: | | 1950 68 years Heart Rate: 88 bpmHeight: 64.0 in Blood | | Pressure: 104/64 mm/HgWeight: 145.0 lb Gender: FBSA: | | 1.71 m | | Order ID: [id number] [facility] [place] | | [facility]:Referring Provider: Dennis Patel Performed: [...] and indexed values Report electronically signed by: [id number] | | Kathleen Sam MD (12/07/2018, 4:42:18 [...] | | | |Report electronically signed by: [id number] Kathleen Sam MD (12/07/2018, 4:42:18 PM) | | | | | | | | Final | + + + + + + + | Performing | Address | City/State/Zipcode | Phone Number | | Organization | | | | + + + + + | [facility] | [address] [facility] [facility] | [place], [place] | | | CARDIOLOGY | [address] | [address] | | + + + + + [...] 95 | 70 - 99 mg/dL | [facility] | | (LAB) | | [...] >60 mL/min | [facility] | | ENGLISH | | | SERVICES, CORE | + +---------+ + + | EGFR NON | >60 | >60 mL/min | [facility] | | -ENGLISH | | | SERVICES, CORE | + [...] | + + + + + | [facility] | [address] | [place] [address] | | | SERVICES, CORE | [address] [...] Images archived to | | | institution personalized living manager nurse | | + + + ICU FOCUSED [...] | | site: Radial Catheter size: 3 turkmen x 5 cm Number of | | [...] (L) | 26.0 - 36.0 seconds | [facility] | | | | | [...] | + + + + + | [facility] | [address] [facility] [facility] | [place] [address] | | | SERVICES, [facility] | [address] | | | + + + + + OPERATION RECORD (12/04/2018 4:05 PM) + + | Procedure Note | + + | Manoj Kumar MD - 12/04/2018 4:05 PM PDT Date of Service: 12/04/2018 Attending | | Surgeon:Manoj Kumar MD Insole And Heel Stiffener(s):Pritesh Chang | | Bethel Quevedo MD Preoperative [...] ribs were reapproximated using | | multiple pescpf-hd-uyepw #2 Vicryl sutures. Serratus closed with #1 Vicryl, | | subcutaneous tissue closed with 2-0 Vicryl, skin closed with 4-0 Vicryl. Sterile | | dressings were applied. A single 28-New Zealander chest tube was placed through the inferior [...] 12/04/2018 15:15:41DT: 12/04/2018 16:05:12Job #: | | [id number] | + + ABG-FULL ABL, POC (12/04/2018 [...] + + + | [facility] | [address] | [place], [place] | | | MARISSA JULIAN OF CARE | [facility] | [address] | | | TESTS | | | [...] INTUBATION | | | ATTEMPT 1 Videolaryngoscopy: [facility] Standard geometry curved blade | | | [...] NARRATIVE Attending physically present Authorized by BOUCHRA LOPEZ | | | Performed by SUE DUNCAN [...] 68 year old female with | | [facility] | | | a history of left upper | | OF PATHOLOGY | | | lobe nodule and | | | | | mediastinal adenopathy | | | + + + + + | Final Pathologic | A. Lymph node, level 7, | | [facility] DE[facility] | | Diagnosis | biopsy: [...] (8th edition): | | | | | [id number]: The | | | | | tumor [...] | | | | | [facility] | | | | | [facility] electronic | | | | | signature [...] | LUNG (Lung - All | | [facility] DEPART[facility] | | | Specimens) SPECIMEN [...] Description | Received are 18 | | [facility] DEPART[facility] | | | specimens fresh in | | OF PATHOLOGY | | | containers labeled with | | | | | the patient's name | | | | | (initials JAO) and | | | | | medical record number | | | | | [id number].A. Lymph node, | | | | | [...] | surfaces. | | | | | Help Desk Supervisor sections | | | | | are [...] positive | | | | | density, airline security representative | | | | | sectionsP. [...] hilar mass. | | | | | Help Desk Supervisor sections | | | | | are [...] node | | | | | from Y0M9-W0: 3.2 cm | | | | | [...] apical mass, | | | | | airline security representative sections, | | | | | to include relationship | | | | | with pleura in | | | | | [id number]: Subpleural | | | | | induration, | | | | | airline security representative | | | | | [id number]: Uninvolved | | | | | parenchyma, | | | | | airline security representative | | | | | gbkmdgsfT78: 1 density | | | | | suggestive of lymph | | | | | node, ewvuzrswdO60: 1 | | | | | density [...] Intraoperative use | Frozen section | | [facility] DE[facility] | | only - Final [...] | PathologistPathology, | | | | | [facility] | | | | [...] | PathologistPathology, | | | | | [facility] | | | | [...] | PathologistPathology, | | | | | [facility] | | | | [...] | PathologistPathology, | | | | | [facility] | | | | [...] | PathologistPathology, | | | | | [facility] | | | | [...] | PathologistPathology, | | | | | [facility] | | | | [...] | PathologistPathology, | | | | | [facility] | | | | [...] | PathologistPathology, | | | | | [facility] | | | | [...] | PathologistPathology, | | | | | [facility] | | | | [...] | PathologistPathology, | | | | | [facility] | | | | [...] | PathologistPathology, | | | | | [facility] | | | | [...] | | | | | [facility] & Science | | | [...] Leighann Wyatt | | | | | Rebuck that point | | | + + [...] + + + + + | [facility] DEPARTMENT OF | [address] | [place] [address] | | | PATHOLOGY | [address] | | | + + + + + FINE NEEDLE ASPIRATE (12/04/2018 8:06 AM) + + + + + | Component | Value | Ref Range | Performed At | + + + + + | Clinical History | 68 year-old woman with a | | [facility] DEPART[facility] | | | PET-avid left upper | | OF PATHOLOGY | | | lobe nodule. | | | + + + + + | Final Pathologic | A. Lymph node, level 7, | | [facility] | | Diagnosis | ultrasound [...] pathology case | | | | | ([id number])]. No | | | | | definite carcinoma cells | | | | | seen are seen in this | | | | | sampling, however see | | | | | case [id number]. Case | | | | | seen [...] | | | | | [facility] | | | | | University electronic [...] Impression | A: Evaluation episode | | [facility] DEPART[facility] | | | #1: Pass [...] | PathologistPathology, | | | | | [facility] | | | | | [place] | | | + + + + + | Procedure Details | A. FNA by clinician. 3 | | [facility] DEPART[facility] | | | passes yielded [...] | + + + + + | [facility] | [address] | [place] [address] | | | [facility] | | | | | HEALTH + HEALING | | | | + + + + + [facility] | [address] | [place] [address] | | | PATHOLOGY | [address] [...] | 0.00 - 0.10 K/cu mm | [facility] | | | | | SERVICES, | | | | | CENTER FOR | | | | | HEALTH + | | | | | HEALING | + + + + + | IG# | 0.03 | 0.00 - 0.10 K/cu mm | [facility] | | | | | SERVICES, [...] [facility] | [address] | [place] [address] | | | SERVICES, [facility] | | | | | HEALTH [...] | + + + + + | [facility] | [address] | [place] [address] | | | SERVICES, | [address] | | | | TRANSFUSION MEDICINE | | | | + + + + + INR (11/26/2018 3:18 PM) + +-------+ + + | Component | Value | Ref Range | Performed At | + +-------+ + + | INR | 0.93 | 0.90 - 1.20 INR | [facility] | | | | | SERVICES, [...] | + + + + + | [facility] | [address] | [place] [address] | | | SERVICES, CORE | [address] | | | + + + + + ANTIBODY SCREEN (11/26/2018 3:18 PM) + + + + + | Component | Value | Ref Range | Performed At | + + + + + | Antibody Screen | Negative | | [facility] | | | | | SERVICES, [...] [facility] | [address] | [place] [address] | | | SERVICES, | [address] [...] | + + + + + | [facility] | [address] [facility] | [place] [address] | | | SERVICES, | [address] | | | | TRANSFUSION MEDICINE | | | | + + + + + SPIROMETRY BEFORE / AFTER BRONCHODIL, PULM FUNCTION LAB (11/26/2018 1:31 PM) + + + + + | Component | Value | Ref Range | Performed At | + + + + + | PULMONARY | Site: [facility] and | | [facility] SPECIAL | | INTERPRETATION | [facility] | | DIAGNOSTICS - | | | [facility] [address], | | PULMONARY | | | [place], [place], | | FUNCTION | | | [id number]: | | | | | [id number] Name: WINNIE, | | | | | SUSSY John Date: | | | | | 11/26/2018 Second ID: | | | | | [id number]: | | | | | Sara HurstAge: | | | | | 68 : | | | | | 1950 Sex: | | | | | Female Race: | | | | | CaucasianHeight: | | | | | 162.50 Cms Weight: | | | | | 59.00 Kgs BSA: | | | | | 1.63Order IDs: | | | | | [id number] | | | | | Test(s): <SPIROMETRY [...] | + + + + + | VIT76-80% PRE | 1.79 | 2.00 L/sec | [facility] | | | | | DIAGNOSTICS - | | | | | PULMONARY | | | | | FUNCTION | + + + + + | ZUL09-05% PRE (%REF) | 89 | % | [...] [facility] | [address] | [place], [place] | | | DIAGNOSTICS - | [address] | [address] | | | PULMONARY FUNCTION | | | | + + + + + STRESS DOBUTAMINE ECHOCARDIOGRAM, ADULT (11/26/2018 11:43 AM) + + + | Narrative | Performed At | + + + | [facility] | [facility] DEPT OF | | [facility] Adult [facility]ch[facility] | CARDIOLOGY | | Laboratory [address] [place] [address] | | | [place] [address] Pt Name: | | | SUSSY ALLRED Study Date / Time 11/26/2018 / | | | 11:43:08 AMMRN: | | | [id number] Most recent prior: 0Acc | | | #: [id number] No. previous echos: | | | 0DOB: 1950 Age: 68 | | | years Gender: FHeight: 64.0 | | | in BSA: | | | 1.62 x8Hxgrqh: 129 lb Order | | | ID: [id number] medications: Diuretic and | | | Aspirin.Indications: Preoperative Evaluation Pit Clerk: Tania Birmingham | | | [facility] Referring Provider: Alejandro Bishop Location: [facility] | | | Performed: Dobutamine stress [...] Cardiology Results - 11/26/2018 1:25 PM PDT [facility] [employer] | | [facility] Echocardiography Laboratory [address] [place] [address] | | [place], [place] [address] Pt Name: SUSSY REEVES | | WINNIE Study Date / Time 11/26/2018 / 11:43:08 AMMRN: [id number] | | Most recent prior: 0Acc #: [id number] No. previous echos: 0DOB: | | 1950 Age: 68 years Gender: FHeight: 64.0 in BSA: | | 1.62 q6Ggrlpt: 129 lb Order ID: | | [id number] medications: Diuretic and Aspirin.Indications: Preoperative Evaluation | | Pit Clerk: Tania Birmingham [facility] Referring Provider: Alejandro Bishop Location: | | [...] + + + + + | [facility] DEPT OF | [address] [facility] [facility] | [place], [place] | | | CARDIOLOGY | [address] | [address] | | + + + + + [...] OF | [address] | [place], [place] | | | CARDIOLOGY | [address] | [address] | | + + + + + [...] | 1949 | [phone] | [place] [address] | | | johnson | | | [phone] | | + +--------+ +--------+ + +
--- OUTSIDE RECORDS SUMMARY | ~2018-12-15 | XMS | Encounter Summary ---
Demographics + + + | Address | [address] | | | [place] [address] | + + + | Home Phone [...] Author + + + | Author | [facility] | + + + | Organization | [facility] | + + + | Address [...] Team Providers + +------+ + | Care Brush Clearing Laborer Name | Role | Phone | + [...] [address] | | | | | | [place], [place] | | | | | | [address] | | | | | | [phone] | | | +--------+------+ + + + [...] Rd | | | | | | [place], [place] | | | | | | [address] | | | | | | [phone] | | | | | | | [...] [facility] | [address] | [place] [address] | | | SERVICES, | [address] [...] [facility] | [address] | [place] [address] | | | SERVICES, | [address] [...] | + + + + + | [facility] | [address] | [place] [address] | | | SERVICES, | [address] [...] 32.8 | 32.0 - 36.0 g/dL | [facility] | | | | | SERVICES, | | | | | CENTER FOR | | | | | HEALTH + | | | | | HEALING | + + + + + | RDW SD | 45.4 | 35.1 - 46.3 fL | [facility] | | | | | SERVICES, [...] 0.5 | 0.0 - 2.0 % | [facility] | | | | | SERVICES, | | | | | CENTER FOR | | | | | HEALTH + | | | | | HEALING | + + + + + | IG% | 0.5Comment: Increased | 0.0 - 1.0 % | [facility] | | | immature granulocytes | [...] | 1.80 - 7.70 K/cu mm | [facility] | | | | | SERVICES, [...] are included in the neutrophil count. | [facility] | | | HEALTH + | | | HEALING | + + + + + + + + | Performing | Address | City/State/Zipcode | Phone Number | | Organization | | | | + + + + + | [facility] | [address] | [place] [address] | | | [facility] | | | | | [...] >60 mL/min | [facility] | | PANAMANIAN | | | SERVICES, | | | | | CENTER FOR | | | | | HEALTH + | | | | | HEALING | + +---------+ + + | EGFR NON | 57 (L) | >60 mL/min | [facility] | | -PANAMANIAN | | | SERVICES, | | | [...] 11 | 4 - 11 mmol/L | [facility] | | CORRECTED) | | | [...] m Chronic Kidney Disease <15 mL/min/1.73 | [facility] | | sq m Kidney Failure [...] | + + + + + | [facility] | [address] | [place] [address] | | | [facility] | | | | | HEALTH + HEALING | | | | + + + + + INR (11/26/2018 3:18 PM) + +-------+ + + | Component | Value | Ref Range | Performed At | + +-------+ + + | INR | 0.93 | 0.90 - 1.20 INR | [facility] | | | | | SERVICES, [...] | + + + + + | [facility] | [address] | [place] [address] | | | SERVICES, CORE | [address] | | | + + + + + in this encounter Visit Diagnoses + + | Diagnosis | + + | Neoplasm | + + | Neoplasm of unspecified nature, site unspecified | + +
--- OUTSIDE RECORDS SUMMARY | ~2018-12-15 | XMS | Encounter Summary ---
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 | [address] | Mailcode: | | | | | | Phone: | [id number] | | | | | | [phone] | Physicians | | | | | | Fax: | Pavilion | | | | | | [phone] | [place], [place] | | | | | | | [address] | | | | | | | Phone: | | | | | | | [phone] | | | | | | | Fax: | | | | | | | [phone] | +--------+--------+ + + + + Diagnostic [...] | Neoplasm | CARLO Allen | [facility] [address] | | | | | Procedures | [address] | [address] | | | | | STRESS | Ave [address] | | | | | DOBUTAMINE | [place], [place] | Mailcode: | | | | | ECHOCARDIOGR | [address] | [id number] | | | | | AM, ADULT | Phone: | Zoltan Calderón | | | | | | [phone] | [facility] | | | | | | Fax: | [place], [place] | | | | | | [phone] | [address] | | | | | | | Phone: | | | | | | | [phone] | +--------+--------+ + + + + Diagnostic [...] | | | | WWO CONTRAST | [place], [place] | [address] | | | | | [place] MRI | [address] | for Health | | | | | BRAIN COMBO | Phone: | and Healing, | | | | | | [phone] | 3rd Floor | | | | | | Fax: | [place], [place] | | | | | | [phone] | [address] | | | | | | | Phone: | | | | | | | [phone] | | | | | | | Fax: | | | | | | | [phone] | +--------+--------+ + + + + Reason [...] | | | Procedures | [address] | [address] | | | | | CONSULT TO | Zoltan Velázquez | Zoltan Velázquez | | | | | SURGERY - | Rd | Rd [place], | | | | | CARDIOTHORAC | [place], [place] | [place] | | | | | IC | [address] | [address] | | | | | | Phone: | Phone: | | | | | | [phone] | [phone] | | | | | | Fax: | Fax: | | | | | | [phone] | [phone] | + +--------+ + + + + Encounter Details +--------+---------+ + + + | Date | Type | Department | Care Team | Description | +--------+---------+ + + + | 11/22/ | Office | Cardiothoracic | Manoj Kumar MD | Neoplasm (Primary | | 2019 | Visit | Surgery at [facility] | [address] | Dx) | | | | [address] | Zoltan Eulal[address] Luna | | | | | Mailcode: Center | [place], [place] | | | | | for Health and | [address] | | | | | Healing, Building [address] | [phone] | | | | | [facility] [place] | | | | | | [address] | | | | | | [phone] | | | +--------+---------+ + + + [...] Pressure | 145/85 | 11/22/2018 9:37 AM PDT | + + + + | Pulse | 76 | 11/22/2018 9:37 AM PDT | + + + + | Temperature | - | - | + + + + | Respiratory Rate | - | - | + + + + | Oxygen Saturation | 100% | 11/22/2018 9:37 AM PDT | + + + + | Inhaled Oxygen | - | - | | Concentration | | | + + + + | Weight | 58.6 kg (129 lb 1.6 | 11/22/2018 9:37 AM PDT | | | oz) | | + + + + | Height | 162.6 cm (5' 4") | 11/22/2018 9:37 AM PDT | + + + + | Body Mass Index | 22.16 | 11/22/2018 9:37 AM PDT | + + + + in this encounter Progress Notes Manoj Kumar MD - 11/22/2018 9:00 AM [facility] Thoracic Surgery Faculty Patient Name: Sussy Allred Date of : 1950 [facility] I personally reviewed the patient's CT Chest, [...] tumor board. Manoj Kumar M.D., FACS, FACCP geothermal system installer Section of General Thoracic Surgery Division of Cardiothoracic Surgery Alejandro [place], MANUFACTURING PLANT CONTROLLER - 11/22/2018 9:00 AM PDTGeneral Thoracic Surgery Consult Date of Service: 11/22/2018 Referring Provider: Rell Lovett MD [address] [place] [address] Primary Care Provider: MALLIKA Toledo [address] 6 [facility] [id number] Reason for consult: Bilateral pulmonary nodules History [...] or pancreatic cancer? Social History: Lives in [place] , has a significant other, Collins 7 pack-year history of smoking; trying to quit; started in 2004 No significant alcohol, illicit drug, or marijuana use Works full-time at [employer] Review of Systems: General: + night sweats [...] spent counseling her and coordinating her care. in this encounter Plan of Treatment +--------+---------+ + + + | Date | Type | Specialty | Care Team | Description | +--------+---------+ + + + | 12/20/ | Office | Thoracic Surgery | Manoj Kumar MD | | | 2019 | Visit | | [address] [facility] | | | | | | Zoltan [facility] | | | | | | [place], [place] | | | | | | [address] | | | | | | [phone] | | | | | | | | +--------+---------+ + + + + +--------+ + + | Name | Priori | Associated Diagnoses | Order Schedule | | | ty | | | + +--------+ + + | 12 LEAD ECG | Routin | Neoplasm | Ordered: 11/22/2018 | | | e | | | + +--------+ + + as of [...] (H) | 70 - 99 mg/dL | [facility] | | (LAB) | | [...] >60 mL/min | [facility] | | [facility] | | | SERVICES, | | | | | [facility] | | | | | HEALTH + | | | | | HEALING | + +---------+ + + | EGFR NON | 57 (L) | >60 mL/min | [facility] | | -TUNISIAN | | | SERVICES, | | | [...] 9 | 4 - 11 mmol/L | [facility] | | | | | [...] m Chronic Kidney Disease <15 mL/min/1.73 | [facility] | | sq m Kidney Failure [...] | + + + + + | [facility] | [address] | [place] [address] | | | [facility] | | | | | HEALTH + HEALING | | | | + + + + + INR (11/26/2018 3:18 PM) + +-------+ + + | Component | Value | Ref Range | Performed At | + +-------+ + + | INR | 0.93 | 0.90 - 1.20 INR | [facility] | | | | | [facility] | + +-------+ + + + + [...] | + + + + + | [facility] | [address] | [place] [address] | | | SERVICES, [place] | [address] | | | + + + + + X-RAY CHEST 2 VIEW (11/26/2018 3:06 PM) [...] | Nomi Burks MD Dictation initiated: Nomi Burks, | | | 11/26/2018 3:33 PM | [...] + | PULMONARY | Site: [facility] and | | [facility] SPECIAL | | INTERPRETATION | [facility], [facility] | | DIAGNOSTICS - | | | [facility], | | PULMONARY | | | [place], [place], | | FUNCTION | | | [id number]: | | | | | [id number] Name: ALLRED, | | | | | SUSSY Lopez Date: | | | | | 11/26/2018 Second ID: | | | | | [id number]: | | | | | Sara HurstAge: | | | | | 68 : | | | | | 1950 Sex: | | | | | Female Race: | | | | | CaucasianHeight: | | | | | 162.50 Cms Weight: | | | | | 59.00 Kgs BSA: | | | | | 1.63Order IDs: | | | | | [id number] | | | | | Test(s): <SPIROMETRY [...] | + + + + + | CDI05-70% PRE | 1.79 | 2.00 L/sec | [facility] | | | | | DIAGNOSTICS - | | | | | PULMONARY | | | | | FUNCTION | + + + + + | TVI14-56% PRE (%REF) | 89 | % | [...] | + + + + + | [facility] | [address] [place] [address], [place] | | | DIAGNOSTICS - | [address] | [address] | | | PULMONARY FUNCTION | | | | + + + + + STRESS DOBUTAMINE ECHOCARDIOGRAM, ADULT (11/26/2018 11:43 AM) + + + | Narrative | Performed At | + + + | [facility] | [facility] DEPT OF | | [facility] Adult Echocardiography | CARDIOLOGY | | Laboratory [facility] | | | [place] [address] Pt Name: | | | SUSSY ALLRED Study Date / Time 11/26/2018 / | | | 11:43:08 AMMRN: | | | [id number] Most recent prior: 0Acc | | | #: [id number] No. previous echos: | | | 0DOB: 1950 Age: 68 | | | years Gender: FHeight: 64.0 | | | in BSA: | | | 1.62 v2Vlqzjg: 129 lb Order | | | ID: [id number] medications: Diuretic and | | | Aspirin.Indications: Preoperative Evaluation Clam Picker: Tania Birmingham | | | [facility] [place] Referring Provider: Alejandro Bishop Location: [facility] | | | Performed: Dobutamine stress echo [...] Interface, Cardiology Results - 11/26/2018 1:25 PM [facility] [employer] | | [facility] Echocardiography Laboratory [address] [place] [address] | | [place], [place] [address] Pt Name: SUSSY REEVES | | WINNIE Study Date / Time 11/26/2018 / 11:43:08 AMMRN: [id number] | | Most recent prior: 0Acc #: [id number] No. previous echos: 0DOB: | | 1950 Age: 68 years Gender: FHeight: 64.0 in BSA: | | 1.62 b5Paxgux: 129 lb Order ID: | | [id number] medications: Diuretic and Aspirin.Indications: Preoperative Evaluation | | Clam Picker: Tania Birmingham [facility] Referring Provider: Alejandro Bishop Location: | | [...] RN: Cara Torres, RNSupervising | | Physician: Damien Garner electronically signed by: Hannah Mccormick MD | [...] + | [facility] | [address] | [place], [place] | | | CARDIOLOGY | [address] | [address] | | + + + + + [...] DEPT OF | [address] | [place], [place] | | | CARDIOLOGY | [address] | [address] | | + + + + + in this encounter Visit Diagnoses + + | Diagnosis | + + | Neoplasm - Primary | + + | Neoplasm of unspecified nature, site unspecified | + +
--- OUTSIDE RECORDS SUMMARY | ~2018-12-15 | XMS | Encounter Summary ---
Demographics + + + | Address | [address] | | | [place] [address] | + + + | Home Phone [...] Author + + + | Author | [facility] | + + + | Organization | [facility] | + + + | Address | [...] Team Providers + +------+ + | Care Rabbet Operator Name | Role | Phone | [...] | | | 2019 | Event | [facility] | MD [address] [facility] | | | | | Admitting Desk | [facility] | | | | | Located on the 9 | [place], [place] | | | | | [address] | [address] | | | | | [facility] | [phone] | | | | | [place], [place] | | | | | | [address] | | | +--------+ + + + [...] | | 1 | Quick Note | [place] of [address] main PA clamped | | [...] | 2018 | Visit | | [address] [facility] | | | | | | [address] | | | | | | [place], [place] | | | | | | [address] | | | | | | [phone] | | | | | | | [...]
--- OUTSIDE RECORDS SUMMARY | ~2018-12-15 | XMS | Encounter Summary ---
Demographics + + + | Address | [address] | | | [place] [address] | + + + | Home Phone | | + + + | Preferred Language | Unknown | + + + | Marital Status | Single | + + + | Anglican Affiliation | NRP | + + + | Race | White | + + + | Ethnic Group | Not or | + + + Author + + + | Author | [facility] | + + + | Organization | [facility] | + + + | [...] Team Providers + +------+ + | Care Quill Machine Operator Name | Role | Phone [...] | FLEXIBLE | | 2019 | | [facility] | [address] [facility] | BRONCHOSCOPY, | | | | Admitting Desk | [facility] | ENDOBRONCHIAL | | | | Located on the 9 | [place], [place] | ULTRASOUND GUIDED | | | | floor [address] [place] [address] | [phone] | LYMPH NODE BIOPSIES, | | | | [facility] | [phone] | MEDIASTINOSCOPY; | | | | [place], [place] | | | | | | [address] | | | +--------+---------+ + + + [...] Discharge Medications: Sussy Allred Home Medication Instructions ABRAHAN:[id number] Printed on:12/13/18 0086 Medication Information acetaminophen 325 mg oral tablet [...] % Intake/Output Summary (Last 24 hours) at 12/14/1806 Last data filed at 12/14/18 0798 Gross per 24 hour Intake 885 ml [...] Care Everywhere.Lung Resection: Post-op (Christiano rubio)Mediastinoscopy: Pre-op (Divehi)in this encounter Medications at Time of Discharge [...] PDTLeft chest tube removed. Keena Myles, MYRNA -BAFFLE INSTALLER - 12/13/2018 8:11 AM PDT ENT SPEECH [...] concerns about eating, drinking. DIETARY STATUS: [facility] soft. Ate steelhead, veggies, rice and [...] Voice clear, breathing comfortably. No further acute BAFFLE INSTALLER needs. PLAN: 1. ADAT back to regular diet. Pills by mouth okay - in liquids or purees as she wishes. -Aspiration precautions - upright with all PO, single small bites/sips, one bite/sip at a time -L head-turn + chin-tuck is fine if patient finds it helpful with liquids 2. TFs have been discontinued 3. ENT BAFFLE INSTALLER will sign-off. Patient can follow-up with us as outpatient in clinic with Dr. Jose arce as needed. Keena Myles MS, CCC-BAFFLE INSTALLER Speech-Language Pathologist [facility] Dept. of Otolaryngology, [address] [place] [address] Pager: [phone] Silvana Quevedo MD - 12/13/2018 7:11 AM PDTFormatting of this note may be different from the original. Thoracic Surgery Brief Inpatient Progress Note Patient name: SUSSY ALLRED Attending: Manoj Kumar MD Procedure day: 9 Procedure: Left thoracotomy, CODY lobectomy with bronchial and PA reconstruction 24 hour events: - Remains on NC, doing well, tolerating [facility] soft diet and diet, no [...] mechanical soft diet. Tube feeds off. Plan (zgar-jl-qckbxpma issues): - Aspiration pneumonitis: Resolved - Hypophosphatemia: [...] Stacy Quevedo MD Cardiothoracic Surgery Fellow Pager: [phone] Keena Myles, [facility]-BAFFLE INSTALLER - 12/12/2018 12:22 PM PDT ENT SPEECH [...] not be indicated until 6 weeks post-[facility] ent. DIETARY STATUS: Purees and [...] resident on- call. Recommend [facility] and any liquids for more [...] of TFs to promote appetite 3. ENT BAFFLE INSTALLER will continue to follow. Please page [phone] as needed. Keena Myles MS, [facility]-BAFFLE INSTALLER Speech-Language Pathologist [facility] Dept. of Otolaryngology, [address] [place] [address] Pager: [phone] Silvana Quevedo MD - 12/12/2018 7:53 AM [...] a PEG tube for nutri tion. Plan (lvsl-dn-vmjzgzla issues): - Aspiration pneumonitis: Productive sputum, augmentin [...] Stacy Quevedo MD Cardiothoracic Surgery Fellow Pager: [phone] Keena Myles, CCC-BAFFLE INSTALLER - 12/11/2018 2:44 PM PDT ENT SPEECH [...] verified. The patient was evaluated in the [facility] 10th floor Radiology suite & was observed [...] re: decrease or discontinue TFs 3. ENT BAFFLE INSTALLER will follow-up on morning. Please page [phone] as needed. Keena Myles MS, CCC-BAFFLE INSTALLER Speech-Language Pathologist [facility] Dept. of Otolaryngology, [address] [facility] [place] [address] Pager: [phone] Keena Myles CCC-BAFFLE INSTALLER - 12/11/2018 10:26 AM PDT ENT SPEECH [...] to improve and tolerate PO. 4. ENT BAFFLE INSTALLER [place] [phone] or [phone] any time with questions or concer ns. Keena Myles MS, CCC-BAFFLE INSTALLER Speech-Language Pathologist [facility] Dept. of Otolaryngology, [address] [facility] [place] [address] Pager: [phone] Silvana Quevedo MD - 12/11/2018 8:24 AM [...] PEG tube and stric t NPO. Plan (nvib-ck-lefceqso issues): - Aspiration pneumonitis: Productive sputum, augmentin [...] Stacy Quevedo MD Cardiothoracic Surgery Fellow Pager: [phone] Meggan Downs, HANNA - 12/10/2018 4:21 PM PDTINPATIENT ENT SPEECH PROGRESS NOTE: Order received, chart reviewed. Patient with history of "large volume aspiration", even un clear. Recommend objective swallow evaluation in Radiology Sunday, 12/11 prior to initiat ion of p.o. Intake. Recommend: NPO, all nutrition/hydration/medication via PEG Plan: [facility] Sunday. Meggan Downs, Ph.D., CCC-BAFFLE INSTALLER Corporate Meeting Planner Director, [facility] Otolaryngology, Head and Neck Surgery [facility] [phone] Augustine Nolan MD - 12/10/2018 9:51 AM PDTFormatting of this note may be different f rom the original. PATIENT NAME: Sussy Allred [facility] MR#: [id number] : 1950 PRIMARY CARE PROVIDER: MALLIKA [place] [...] [facility] but is not particularly uncomfortable and [...] Dr. Jose da silva. Augustine Nolan M.D. Corporate Meeting Planner Laryngology and Head & Neck SurgerySilvana Quevedo [...] PEG tube and stric t NPO. Plan (kock-ng-dquohfkx issues): - Aspiration pneumonitis: Productive sputum, augmentin [...] - Dispo: 11K Discuss with Dr Stacy uQevedo MD Cardiothoracic Surgery Fellow Pager: [phone] Kiya Cedillo MD,PhD - 12/09/2018 2:43 PM [...] removal. APS will sign off, please page [phone] if there are questions or concerns. APS happy to repla ce epidural in future if primary team and patient think it is needed. Kiya Santos MD Pager [phone] Department of Anesthesiology and Perioperative Medicine Chronic [...] PEG tube and stric t NPO. Plan (ywlm-vd-wjzsrzig issues): - Aspiration pneumonitis: strict NPO, aggressive [...] Stacy Quevedo MD Cardiothoracic Surgery Fellow Pager: [phone] Meagan DickersonniCARMELO shaw - 12/09/2018 9:44 AM PDTFormatting of this note may be different from the original. 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 24 Hour events - [...] dysphagia. - Strict NPO, consider re consulting BAFFLE INSTALLER today pending course and ENT recs - [...] 12/07 - Strict NPO - ENT performed IT CONSULTANT scope with evidence of left vocal cord [...] Manoj Kumar MD Admitting Provider Cardiothoracic Surgery 55855 Quality section FAST HUG Feeding: Tube Feeds [...] the recent imaging availabl e. 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 Given her likely long-term [...] 12/07 - Strict NPO - ENT performed IT CONSULTANT scope with evidence of left vocal cord [...] Manoj Kumar MD Admitting Provider Cardiothoracic Surgery 96715 Jama Zhao MD ICU PM Attending Anesthesiology 51519 Quality section FAST HUG Feeding: Tube Feeds: [...] e. Date of Service: 12/08/2018 MALLIKA STONER [facility] DEPARTMENT: ANE ICU CARDIAC Place of Service:- Inpatient CSN: [id number] Suggested Modifier: None Suggested CPT: TO BISQUE PLACER Author:MALLIKA STONER [address] [address]QlfkdnbhDennis Myrick MD - 12/08/2018 10:12 AM PDTFormatting of this no te may be different from the original. 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 Given her likely long-term [...] No Chronic pain Yes Service Cardiac Surgery [[id number]] Admitting provider and ICU treatment team members Provider Role Specialty Pager Manoj Kumar MD Admitting Provider Cardiothoracic Surgery 71061 Jama Zhao MD ICU PM Attending Anesthesiology 51329 Code Status Code Status Full Code Quality section I have spent a total of 38 minutes in the direct care and management of this patient indepe ndent of any time spent teaching or performing any separately billable procedures. I reviewe d the documented findings, all data and the recent imaging available. Seen with PA/IT CONSULTANT myah . Please see their note for details. I reviewed the documented findings, all data and the re cent imaging available. Dennis Myrick MD Author:Dennis Myrick MD [address] [address]SomsctjiOziel Read MD - 12/08/2018 8:43 AM PDTFormatting [...] Louie Moura MD Adult Acute Pain Service [facility] Pager#: [phone] Email: [email or web address] Alcocer MD - 12/08/2018 8:25 AM PDTFormatting [...] post-procedure ye day, which is reassuring. Plan (daws-wp-hnepxrfg issues): - Aspiration pneumonitis: strict NPO, aggressive [...] - Discuss with MD Coreen Farley MD [facility] General Surgery Pager #[phone] Dennis Allred PA-C - 12/08/2018 5:02 AM PDTFormatting of this note may be d ifferent from the original. 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 Given her likely long-term [...] General Surgery, PGY-3 EGS consult resident pager: [phone] Jama Zhao MD - 12/07/2018 7:30 PM PDTFormatting of this note may be different f rom the original. 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 Given her likely long-term [...] No Chronic pain Yes Service Cardiac Surgery [1678] Admitting provider and ICU treatment team members Provider Role Specialty Pager Manoj Kumar MD Admitting Provider Cardiothoracic Surgery 30904 Jama Zhao MD ICU PM Attending Anesthesiology 92832 Code Status Code Status Full Code This [...] ent imaging available. Date of Service: 12/07/2018 [facility] DEPARTMENT: ANE ICU CARDIAC Place of Service:- Inpatient CSN: [id number] Suggested Modifier: None Suggested CPT: TO BISQUE PLACER Author:Jama Zhao MD [address] [address]Qes, Louie Daniels MD - 12/07/2018 1:26 PM [...] in bed. Ms. Allred is satisfied with [facility] level of pain. 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 Given her likely long-term need fo r tube feeding given her dysphagia, EGS consulted and plans for PEG. Patient's ICU course co mplicated by hypertension (required phenylephrine now weaned off) and high volume aspiration event with hypoxia requiring HFNC 20L. Remains hemodynamically stable. 24 Hour events - Strict NPO with concern for high volume aspiration, BAFFLE INSTALLER signed off for now - Overnight worsening [...] event - Strict NPO - ENT performed IT CONSULTANT scope with evidence of left vocal cord [...] Manoj Kumar MD Admitting Provider Cardiothoracic Surgery 86394 Jama Zhao MD ICU PM Attending Anesthesiology 66297 Quality section FAST HUG Feeding: NPO Analgesia: Epidural (HM-bupiv), rectal tylenol, lido patches Sedation: None Thromboprophylaxis: Lovenox Head of Bed: Head of Bed >30 degrees Ulcer Prophylaxis: Famotidine Glycemic Control: insulin sliding Created by Sonya Barron MD Author:Sonya Barron MD [address] [address] [place] [address]VcfmnrkqDennis Myrick MD - 12/07/2018 10:19 AM PDTFormatting of this no te may be different from the original. Cardiovascular Intensive Care Unit Attending Progress Note CVICU D2 Assigned #[id number] ICU Admission Reason Most Recent Value ICU [...] Manoj Kumar MD Admitting Provider Cardiothoracic Surgery 81438 Jama Zhao MD ICU PM Attending Anesthesiology 13104 Code Status Code Status Full Code I [...] ICU CARDIAC Place of Service:- Inpatient CSN: [id number] Suggested Modifier: GC - Resident Involved Suggested CPT: TO BISQUE PLACER Dennis Myrick MD Author:Dennis Myrick MD [address] [address]Rjyfocu, Concha Rahman MD - 12/07/2018 9:49 AM PDTFormatting of this n ote may be different from the original. Thoracic Surgery Brief Inpatient Progress Note Patient name: SUSSY ALLRED Attending: Manoj Kumar MD Procedure day: 3 Procedure: Left thoracotomy, CODY lobectomy with bronchial and PA reconstruction 24 hour events: - made strict NPO yesterday with concern for aspiration, BAFFLE INSTALLER signed off for now - overnight worsening [...] he risk of prolonged intubation post-anesthesia. Plan (ouiu-rr-fonzhmpo issues): - Aspiration pneumonitis: strict NPO, aggressive [...] and discussed with Dr. Chaya Kim MD [facility] General Surgery Pager #[phone] DavisrozGayle - 12/07/2018 9:21 AM PDTTransthoracic echocardiogram complete d. Final report to follow.Dennis Allred PA-C - 12/07/2018 5:34 AM PDTFormatting of this note may be different from the original. Cardiovascular Intensive Care Unit Clinical Update Note Team: D2 Team Pager: [phone] Attending: Cece Pt Name: Sussy Allred ID: [...] General Surgery, PGY-3 EGS consult resident pager: [phone] Associated attestation - Derrick Handley MD - 12/08/2018 10:17 AM PDTATTENDING ADDENDUM I saw and examined Sussy Allred with the residents on 12/07 and agree with the assessmen t and plan as outlined in this note and participated in the planning of care. Derrick Handley MD FACS grain loader Division of Trauma, Critical Care, and Acute Care Surgery [id number] Dennis Myrick MD - 12/06/2018 11:01 AM PDTFormatting of this note may be different fro m the original. Cardiovascular Intensive Care Unit Attending Progress Note CVICU D2 Assigned #[id number] ICU Admission Reason Most Recent Value ICU [...] is comfortable - pt will need likely prison enteral access. Has requested surgical feeding tube [...] Manoj Kumar MD Admitting Provider Cardiothoracic Surgery [address] [place] [address] necessity reviewed: Plan to DC today I [...] ICU CARDIAC Place of Service:- Inpatient CSN: [id number] Suggested Modifier: GC - Resident Involved Suggested CPT: TO BISQUE PLACER Dennis Myrick MD Author:[place] [address]ASilvana ewing MD - 12/06/2018 9:21 AM PDTThoracic [...] Stacy Quevedo MD Cardiothoracic Surgery Fellow Pager: [phone] Sonya Barron MD - 12/06/2018 7:50 AM PDTFormatting of this note may be different from t varsha original. Cardiovascular Intensive Care Unit Team Progress Note CVICU D2 Assigned #[id number] ICU Admission Reason Most Recent Value ICU Admission reason post-op management filed at 12/04/2018 1532 Documentation Date Row Name 12/04/18 1535 Day of Procedure 12/04/18 Thoracic Thoracic Thoracic [...] DHT vs eventual Gtube - ENT performed IT CONSULTANT scope with evidence of left vocal cord [...] Manoj Kumar MD Admitting Provider Cardiothoracic Surgery 80828 Quality section A-Line necessity reviewed: Plan to DC today Doty necessity reviewed: Plan to DC today FAST HUG Feeding: NPO Analgesia: epidural, Tylenol, lidocaine patches Sedation: None Thromboprophylaxis: Lovenox Head of Bed: Head of Bed >30 degrees Ulcer Prophylaxis: Famotidine Glycemic Control: insulin sliding Created by Sonya Barron MD Author:Sonya Barron MD [address] [place] [address]Pocson, Robin Alvarado MD - 12/06/2018 7:02 AM [...] revealed minimally mobile LEFT true vocal cord. BAFFLE INSTALLER evaluation with concern for ri sk of [...] Flores MD Anesthesiology/CCM Fellow APS Team Pager [phone] Associated attestation - Louie Moura MD - 12/07/2018 2:59 PM PDTI saw and evaluated mallika Allred with trainee: Dr. Flores . I have reviewed the trainee's note and I agree with the plan of care as documented. Louie Moura MD Adult Acute Pain Service [facility] Pager#: [phone] Email: [email or web address] PA-C - 12/05/2018 9:06 PM PDTFormatting of this note raymundo y be different from the original. Cardiovascular Intensive Care Unit Clinical Update Note Team: D2 Team Pager: [phone] Attending: Layla Pt Name: Sussy Allred ID: Abbreviated HPI Update: 1. Hypotension a. Impoved 12/05/2018 after 2L crystalloid b. UO improved with IVF 2. Recurret Laryngeal nerve a. ENT Eval complete b. Pending re eval by BAFFLE INSTALLER for swallow this sim S: Pain, drowsy [...] Unit Team Progress Note CVICU D2 Assigned #[id number] ICU Admission Reason Most Recent Value ICU Admission reason post-op management filed at 12/04/2018 7090 Documentation Date Row Name 12/04/18 1534 Day [...] levothyroxine 50mcg PO DAILY after clear by BAFFLE INSTALLER Cardiovascular HTN (hypertension) Unknown Current Assessment & [...] - restart PO PPI when clear by BAFFLE INSTALLER At risk for Dysphagia Unknown Current Assessment [...] Manoj Kumar MD Admitting Provider Cardiothoracic Surgery 79756 Quality section A-Line necessity reviewed: Cydm-sd-qnbm blood pressure monitoring Doty necessity reviewed: Hourly/Accurate measurement of urinary output for clinical manage ment of critically ill patients FAST HUG Feeding: NPO Analgesia: Tylenol, epidural (bupiv-fent) Sedation: None Thromboprophylaxis: SCDs Head of Bed: Head of Bed >30 degrees Ulcer Prophylaxis: Famotidine Glycemic Control: insulin sliding Created by Sonya Barron MD Author:Sonya Barron MD [address] [address]Tvzndsb, Sara, CF-BAFFLE INSTALLER - 12/05/2018 10:00 AM PDTENT SPEECH PATHOLOGY- [...] HISTORY: she is single and lives in [place], [place] DIETARY STATUS: Current diet: The patient [...] afternoon when less lethargic/sedate. Ava Allred M.S., CF-BAFFLE INSTALLER Speech-Language Pathology Fellow [facility] [phone] Pager: [phone] Dennis Myrick MD - 12/05/2018 8:57 AM PDTFormatting of this note may be different fro m the original. Cardiovascular Intensive Care Unit Attending Progress Note CVICU D2 Assigned #[id number] ICU Admission Reason Most Recent Value ICU [...] Manoj Kumar MD Admitting Provider Cardiothoracic Surgery 83619 Code Status Code Status Full Code Quality section A-Line necessity reviewed: Jxkp-pm-ekja blood pressure monitoring Doty necessity reviewed: Acute [...] ICU CARDIAC Place of Service:- Inpatient CSN: [id number] Suggested Modifier: GC - Resident Involved Suggested CPT: TO BISQUE PLACER Dennis Myrick MD Author:Dennis Myrick MD [address]DuRobin townsend MD - 12/05/2018 8:08 AM [...] team provider CVICU Team. Robin Flores MD Anesthesiology/[facility] Fellow APS Team Pager [phone] Associated attestation - Kiya Cedillo MD,PhD - 12/05/2018 4:50 PM PDTI saw and evaluated patient Ms. Sussy Allred with Resident: Dr. Flores. I reviewed all detail s of Ms. Sussy Allred s epidural block management. I have reviewed the resident s no te and I agree with the plan of care as documented. I do not have additional comments. Kiya Santos MD,PhDSilvana Queevdo MD - 12/05/2018 7:45 AM PDTThoracic surgery [...] Stacy Quevedo MD Cardiothoracic Surgery Fellow Pager: [phone] Dennis Allred PA-C - 12/05/2018 3:00 AM PDTFormatting of this note may be different from the original. Cardiovascular Intensive Care Unit Clinical Update Note Team: D2 Team Pager: [phone] Attending: Layla Pt Name: Sussy Allred ID: [...] - restart PO PPI when clear by BAFFLE INSTALLER Hypothyroidism 12/04/2018 Assessment & Plan Note: - restart home levothyroxine 50mcg PO DAILY after clear by BAFFLE INSTALLER Acute post-operative pain 12/04/2018 Assessment & Plan [...] 1:38 AM 12/05/2018 1. HYPOTension: Left radial Fletcher not functioning a. Cont Hypotension after Thoracic [...] LEVEL/LATERALITY: bilateral ATTENDING PHYSICIAN: Hellen Herman MD DATA TECHNICAL LEAD: Jamey Flores MD, Manda Hamm MD ANESTHESIA: [...] procedure. MD Jamey Boss M.D. Assisted our director international. I saw and evaluated patient Ms. Sussy [...] | 2019 | Visit | | [address] [facility] | | | | | | [facility] | | | | | | [place], [place] | | | | | | [address] | | | | | | [phone] | | | | | | | [...] + +--------+ + + + | TO BISQUE PLACER | Routin | 12/05/2018 | | Results [...] + | OHMOIZ - LEIGHANN | [address] [facility] [address] | [place], [place] | | | IESHA [place] OF [facility] | [address] | [address] | | | TESTS | | | [...] | + + + + + | ALMOIZ LEIGHANN | [address] [facility] [address] | [place], [place] | | | [place] [facility] | [address] | [address] | | | TESTS | | | | + + + + + X-RAY PORTABLE CHEST 1 VIEW (12/13/2018 8:24 AM) + + + | Narrative | Performed At | + + + | EXAM: [place] CHEST 1 VIEW HISTORY: eval interval change. [...] Interface - 12/13/2018 9:47 AM PDT EXAM: [place] CHEST 1 | | VIEW HISTORY: eval [...] [facility] | [address] | [place], [place] | | | IESHA POINT OF CARE | [address] | [address] | | | TESTS | | | [...] [facility] | [address] | [place], [place] | | | MARISSA JAIMES OF [facility] | [facility] | [address] | | | TESTS | | | [...] | MD Sae Cardiothoracic Surgery Fellow Pager: [phone] | | + + + CAPILLARY BLOOD [...] [facility] | [address] | [place], [place] | | | MARISSA JAIMES OF CARE | [address] | [address] | | | TESTS | | | [...] + + + | SUZE [facility] | [address] | [place], [place] | | | IESHA POINT OF CARE | [address] | [address] | | | TESTS | | | [...] [facility] | [address] | [place], [place] | | | IESHA POINT OF CARE | [address] | [address] | | | TESTS | | | [...] MARQUAM | [address] | [place], [place] | | | IESHA POINT OF CARE | [address] | [address] | | | TESTS | | | [...] SUZE [facility] | [address] | [place], [place] | | | MARISSA JAIMES OF CARE | [facility] | [address] | | | TESTS | | | [...] LEIGHANN | [address] | [place], [place] | | | MARISSA JAIMES [facility] | [address] | [address] | | | TESTS | | | [...] | 3.50 - 10.80 K/cu mm | [facility] | | | | | SERVICES, CORE | + + + + + | RED CELL COUNT | 2.64 (L) | 4.00 - 5.20 M/cu mm | [facility] | | | | | SERVICES, [...] | + + + + + | [facility] | [address] | [place] [address] | | | SERVICES, CORE | [address] | | | + + + + + MAGNESIUM, PLASMA (12/11/2018 5:01 AM) + +-------+ + + | Component | Value | Ref Range | Performed At | + +-------+ + + | MAGNESIUM,PLASMA | 2.3 | 1.6 - 2.6 mg/dL | [facility] | | | | | SERVICES, CORE | + +-------+ + + + + | Specimen | + + | Blood - Blood | + + + + + + + | Performing | Address | City/State/Zipcode | Phone Number | | Organization | | | | + + + + + | [facility] | [address] | [place] [address] | | | SERVICES, CORE | PARK [...] >60 mL/min | [facility] | | CAMEROONIAN | | | SERVICES, CORE | + + + + + | EGFR NON | >60 | >60 mL/min | [facility] | | -CAMEROONIAN | | | SERVICES, CORE | + [...] the MDRD equation recommended by the | [facility] | | National Kidney Disease Education Program. [...] | + + + + + | [facility] | [address] | [place] [address] | | | SERVICES, KOKI | EULALIO [...] + + | [facility] | [address] | [place], [place] | | | IESHA POINT OF CARE | [address] | [address] | | | TESTS | | | [...] [facility] | [address] | [place], [place] | | | MARISSA JAIMES OF CARE | [address] | [address] | | | TESTS | | | [...] + + + | [facility] | [address] | [place], [place] | | | MARISSA JAIMES OF CHE | [address] | [address] | | | TESTS | | | [...] (H) | 80.0 - 100.0 fL | [facility] | | | | | SERVICES, CORE | + + + + + | MCHC | 31.8 (L) | 32.0 - 36.0 g/dL | [facility] | | | | | SERVICES, CORE | + + + + + | RDW SD | 47.3 (H) | 35.1 - 46.3 fL | [facility] | | | | | SERVICES, CORE | + + + + + | PLATELET COUNT | 341 | 150 - 400 K/cu mm | [facility] | | | | | SERVICES, CORE | + + + + + | MPV | 8.9 (L) | 9.7 - 12.3 fL | [facility] | | | | | SERVICES, [...] [facility] | [address] | [place] [address] | | | KOKI STUART | [address] | | | + + + + + MAGNESIUM, PLASMA (12/10/2018 6:13 AM) + +-------+ + + | Component | Value | Ref Range | Performed At | + +-------+ + + | MAGNESIUM,PLASMA | 2.4 | 1.6 - 2.6 mg/dL | [facility] | | | | | SERVICES, CORE | + +-------+ + + + + | Specimen | + + | Blood - Blood | + + + + + + + | Performing | Address | City/State/Zipcode | Phone Number | | Organization | | | | + + + + + | [facility] | [address] | [place] [address] | | | SERVICES, CORE | [address] | | | + + + + + RENAL FUNCTION SET (NA,K,CL,CO2,BUN,CREAT,GLUC,CA,PHOS,ALB ) (12/10/2018 6:13 AM) + + + + + | Component | Value | Ref Range | Performed At | + + + + + | GLUCOSE, PLASMA | 135 (H) | 70 - 99 mg/dL | [facility] | | (LAB) | | | [...] >60 mL/min | [facility] | | CAMEROONIAN | | | [facility] | + + + + + | EGFR NON | >60 | >60 mL/min | [facility] | | -CAMEROONIAN | | | SERVICES, [facility] | + + + + + | SODIUM, PLASMA (LAB) | 139 | 136 - 145 mmol/L | [facility] | | | | | SERVICES, [facility] | + + + [...] [facility] | | | | | [facility], [facility] | + + + + + | ANION GAP | 5 | 4 - 11 mmol/L | [facility] | | | | | SERVICES, CORE | + + + + + | ANION GAP(ALB | 10 | 4 - 11 mmol/L | [facility] | | CORRECTED) | | | [facility], CORE | + + + + [...] + + + + + | [facility] | [address] | [place] [address] | | | SERVICES, CORE | E[address]ALIO [...] 2.1 | 1.6 - 2.6 mg/dL | [facility] | | | | | SERVICES, CORE | + +-------+ + + + + | Specimen | + + | Blood - Blood | + + + + + + + | Performing | Address | City/State/Zipcode | Phone Number | | Organization | | | | + + + + + | [facility] | [address] | [place] [address] | | | SERVICES, KOKI | PARK [...] 8 | 6 - 20 mg/dL | [facility] | | | | | SERVICES, CORE | + + + + + | CREATININE PLASMA | 0.47 (L) | 0.60 - 1.10 mg/dL | [facility] | | (LAB) | | | SERVICES, CORE | + + + + + | EGFR - | >60 | >60 mL/min | [facility] | | CAMEROONIAN | | | SERVICES, CORE | + + + + + | EGFR NON | >60 | >60 mL/min | [facility] | | -CAMEROONIAN | | | [facility], CORE | + + + + [...] | | CORRECTED) | | | SERVICES, [facility] | + + + [...] | + + + + + | [facility] | [address] | [place] [address] | | | SERVICES, CORE | PARK [...] 46.3 | 35.1 - 46.3 fL | [facility] | | | | | SERVICES, [...] | 0.00 - 0.02 K/cu mm | [facility] | | | | | SERVICES, CORE | + + + + + + + | Specimen | + + | Blood - Blood | + + + + + + + | Performing | Address | City/State/Zipcode | Phone Number | | Organization | | | | + + + + + | [facility] | [address] | [place] [address] | | | SERVICES, CORE | [address] | | | + + + + + MAGNESIUM, PLASMA (12/09/2018 6:35 AM) + +-------+ + + | Component | Value | Ref Range | Performed At | + +-------+ + + | MAGNESIUM,PLASMA | 2.4 | 1.6 - 2.6 mg/dL | [facility] | | | | | SERVICES, [...] | + + + + + | [facility] | [address] | [place] [address] | | | KOKI STUART | [address] [...] | + + + + + | [facility] | [address] | [place] [address] | | | KOKI STUART | [address] | | | + + + + + X-RAY PORTABLE CHEST 1 VIEW (12/09/2018 5:41 AM) + + + | Narrative | Performed At | + + + | EXAM: [place] CHEST 1 VIEW HISTORY: Shortness of breath. [...] Interface - 12/09/2018 7:45 AM PDT EXAM: [place] CHEST 1 | | VIEW HISTORY: Shortness [...] 1.8 | 1.6 - 2.6 mg/dL | [facility] | | | | | SERVICES, CORE | + +-------+ + + + + | Specimen | + + | Blood - Blood | + + + + + + + | Performing | Address | City/State/Zipcode | Phone Number | | Organization | | | | + + + + + | [facility] | [address] | [place] [address] | | | SERVICES, CORE | [address] [...] >60 mL/min | [facility] | | CAMEROONIAN | | | SERVICES, CORE | + + + + + | EGFR NON | >60 | >60 mL/min | [facility] | | -CAMEROONIAN | | | SERVICES, CORE | + [...] | + + + + + | [facility] | [address] | [place] [address] | | | SERVICES, CORE | E[address] [...] | + + + + + | [facility] | [address] | [place], [place] | | | MARISSA JAIMES OF [facility] | [address] | [address] | | | TESTS | | | | + + + + + MAGNESIUM, PLASMA (12/08/2018 12:56 PM) + +-------+ + + | Component | Value | Ref Range | Performed At | + +-------+ + + | MAGNESIUM,PLASMA | 2.2 | 1.6 - 2.6 mg/dL | [facility] | | | | | SERVICES, CORE | + +-------+ + + + + | Specimen | + + | Blood - Blood | + + + + + + + | Performing | Address | City/State/Zipcode | Phone Number | | Organization | | | | + + + + + | [facility] | [address] | [place] [address] | | | KOKI STUART | P[address] [...] >60 mL/min | [facility] | | CAMEROONIAN | | | SERVICES, CORE | + + + + + | EGFR NON | >60 | >60 mL/min | [facility] | | -CAMEROONIAN | | | SERVICES, CORE | + [...] | | (LAB) | | | SERVICES, [facility] | + + + [...] | | CORRECTED) | | | SERVICES, [facility] | + + + [...] [facility] | | | | | [facility], [facility] | + + + + + | ANION GAP | 4 | 4 - 11 mmol/L | [facility] | | | | | SERVICES, [facility] | + + + + + | ANION GAP(ALB | 7 | 4 - 11 mmol/L | [facility] | | CORRECTED) | | | SERVICES, CORE | + + + + + + + | Specimen | + + | Blood - Blood | + + + + + | Narrative | Performed At | + + + | GFR is estimated using the MDRD equation recommended by the | [facility] | | National Kidney Disease Education Program. [...] + + + + + | [facility] | [address] | [place] [address] | | | SERVICES, CORE | [address] [...] >60 mL/min | [facility] | | CAMEROONIAN | | | SERVICES, CORE | + + + + + | EGFR NON | >60 | >60 mL/min | [facility] | | -CAMEROONIAN | | | SERVICES, CORE | + [...] the MDRD equation recommended by the | [facility] | | National Kidney Disease Education Program. [...] | + + + + + | [facility] | [address] | [place] [address] | | | KOKI STUART | [address] | | | + + + + + X-RAY PORTABLE CHEST 1 VIEW (12/08/2018 4:58 AM) + + + | Narrative | Performed At | + + + | EXAM: [place] CHEST 1 VIEW HISTORY: SoB COMPARISON: Chest [...] Interface - 12/08/2018 10:59 AM PDT EXAM: [place] CHEST 1 | | VIEW HISTORY: SoB [...] 2.0 | 1.6 - 2.6 mg/dL | [facility] | | | | | SERVICES, CORE | + +-------+ + + + + | Specimen | + + | Blood - Blood | + + + + + + + | Performing | Address | City/State/Zipcode | Phone Number | | Organization | | | | + + + + + | [facility] | [address] | [place] [address] | | | SERVICES, CORE | PARK [...] >60 mL/min | [facility] | | CAMEROONIAN | | | SADE, CORE | + + + + + | EGFR NON | >60 | >60 mL/min | [facility] | | -CAMEROONIAN | | | SADE, CORE | + [...] LABORATORY | | | | | SERVICES, [facility] | + + + + + | ANION GAP | 5 | 4 - 11 mmol/L | [facility] | | | | | SERVICES, CORE | + + + + + | ANION GAP(ALB | 9 | 4 - 11 mmol/L | [facility] | | CORRECTED) | | | SERVICES, CORE | + + + + + + + | Specimen | + + | Blood - Blood | + + + + + | Narrative | Performed At | + + + | GFR is estimated using the MDRD equation recommended by the | [facility] | | National Kidney Disease Education Program. Estimated GFR | LABORATORY | | Interpretive Information: <60 mL/min/1.73 sq | [facility], CORE | | m Chronic Kidney [...] | + + + + + | [facility] | [address] | [place] [address] | | | SERVICES, KOKI | [address] [...] 46.2 | 35.1 - 46.3 fL | [facility] | | | | | SERVICES, [...] | 0.00 - 0.02 K/cu mm | [facility] | | | | | SERVICES, CORE | + + + + + + + | Specimen | + + | Blood - Blood | + + + + + + + | Performing | Address | City/State/Zipcode | Phone Number | | Organization | | | | + + + + + | [facility] | [address] | [place] [address] | | | [facility], [facility] | [address] | [...] operation. | | | Dereck Rodriguez MD [facility] [address] | | | [place] [id number] | | + + + PROCEDURE NOTE [...] attempt. Midline | | | lot number [id number]; there was excellent blood return. The | [...] Performed At | + + + | [facility] | [facility] | | [place] [facility] Adult Echocardiography | CARDIOLOGY | | Laboratory [address] [place] [address], | | | [place] [address] Pt Name: | | | SUSSY ALLRED Study Date/Time 12/07/2018 / 8:45:36 | | | AMMRN: [id number] Most recent | | | prior: 11/26/2018Acc #: [id number] No. | | | previous echos: 1DOB: 1950 68 years Heart | | | Rate: 88 bpmHeight: 64.0 in | | | Blood Pressure: 104/64 mm/HgWeight: 145.0 | | | lb Gender: | | | FBSA: 1.71 m | | | Order ID: [id number] | | | [facility]: Gayle Michael RCSSonographer | | | 2:Referring [...] Report | | | electronically signed by: [id number] Kathleen Sam MD (12/07/2018, | | | 4:42:18 PM) Final | | + + + + + | Procedure Note | + + | Interface, Cardiology Results - 12/07/2018 4:42 PM [facility] | | [facility] Echocardiography Laboratory [address] [place] [address] | | [place], [place] [address] Pt Name: SUSSY REEVES | | WINNIE Study Date/Time 12/07/2018 / 8:45:36 AMMRN: [id number] Most | | recent prior: 11/26/2018Acc #: [id number] No. previous echos: 1DOB: | | 1950 68 years Heart Rate: 88 bpmHeight: 64.0 in Blood | | Pressure: 104/64 mm/HgWeight: 145.0 lb Gender: FBSA: | | 1.71 m | | Order ID: [id number] Study [facility]: Fluker | | [facility] 2:Referring Provider: Dennis Tayloralities Performed: 2D, [...] and indexed values Report electronically signed by: [id number] | | Kathleen Sam MD (12/07/2018, 4:42:18 [...] | | | |Report electronically signed by: [id number] Kathleen Sam MD (12/07/2018, 4:42:18 PM) | | | | | | | | Final | + + + + + + + | Performing | Address | City/State/Zipcode | Phone Number | | Organization | | | | + + + + + | [facility] | [address] | [place], [place] | | | CARDIOLOGY | [address] | [address] | | + + + + + X-RAY PORTABLE CHEST 1 VIEW (12/07/2018 5:56 AM) + + + | Narrative | Performed At | + + + | EXAM: NH CHEST 1 VIEW HISTORY: SoB COMPARISON: Chest [...] Interface - 12/07/2018 12:19 PM PDT EXAM: [place] CHEST 1 | | VIEW HISTORY: SoB [...] 2.3 | 1.6 - 2.6 mg/dL | [facility] | | | | | SERVICES, CORE | + +-------+ + + + + | Specimen | + + | Blood - Blood | + + + + + + + | Performing | Address | City/State/Zipcode | Phone Number | | Organization | | | | + + + + + | [facility] | [address] | [place] [address] | | | SERVICES, KOKI | [address] | | | + + + + + CBC (HEMOGRAM) ONLY (12/07/2018 2:20 AM) + + + + + | Component | Value | Ref Range | Performed At | + + + + + | WHITE CELL COUNT | 13.40 (H) | 3.50 - 10.80 K/cu mm | [facility] | | | | | SERVICES, CORE | + + + + + | RED CELL COUNT | 2.52 (L) | 4.00 - 5.20 M/cu mm | [facility] | | | | | SERVICES, [...] (L) | 9.7 - 12.3 fL | [facility] | | | | | SERVICES, CORE | + + + + + | NRBC% | 0.0 | 0.0 - 0.3 % | [facility] | | | | | SERVICES, CORE | + + + + + | NRBC# | 0.00 | 0.00 - 0.02 K/cu mm | [facility] | | | | | SERVICES, CORE | + + + + + + + | Specimen | + + | Blood - Blood | + + + + + + + | Performing | Address | City/State/Zipcode | Phone Number | | Organization | | | | + + + + + | [facility] | [address] | [place] [address] | | | KOKI STUART | P[address] [...] >60 mL/min | [facility] | | CAMEROONIAN | | | SERVICES, CORE | + +---------+ + + | EGFR NON | >60 | >60 mL/min | [facility] | | -CAMEROONIAN | | | SERVICES, CORE | + +---------+ + + | SODIUM, PLASMA (LAB) | 139 | 136 - 145 mmol/L | [facility] | | | | | SERVICES, CORE | + +---------+ + + | POTASSIUM, PLASMA | 3.9 | 3.4 - 5.0 mmol/L | [facility] | | (LAB) | | | SERVICES, [facility] | + +---------+ + + | CHLORIDE, PLASMA | 109 (H) | 97 - 108 mmol/L | [facility] | | (LAB) | | | SERVICES, [facility] | + +---------+ + + | TOTAL CO2, PLASMA | 25 | 21 - 32 mmol/L | [facility] | | (LAB) | | | [facility], [facility] | + +---------+ + + | CALCIUM, PLASMA | 7.7 (L) | 8.6 - 10.2 mg/dL | [facility] | | (LAB) | | | [facility], [facility] | + +---------+ + [...] POTASSIUM CMNT | No Hemo | | [facility] | | | | | SERVICES, CORE | + +---------+ + + | ANION GAP | 5 | 4 - 11 mmol/L | [facility] | | | | | SERVICES, CORE | + +---------+ + + | ANION GAP(ALB | 9 | 4 - 11 mmol/L | [facility] | | CORRECTED) | | | SERVICES, CORE | + +---------+ + + + + | Specimen | + + | Blood - Blood | + + + + + | Narrative | Performed At | + + + | GFR is estimated using the MDRD equation recommended by the | [facility] | | National Kidney Disease Education Program. [...] + + + + + | [facility] | [address] | [place] [address] | | | SERVICES, CORE | [address] | | | + + + + + PROCEDURE NOTE (12/06/2018 7:33 PM)CBC (HEMOGRAM) ONLY (12/06/2018 12:27 PM) + + + + + | Component | Value | Ref Range | Performed At | + + + + + | WHITE CELL COUNT | 12.39 (H) | 3.50 - 10.80 K/cu mm | [facility] | | | | | SERVICES, CORE | + + + + + | RED CELL COUNT | 2.45 (L) | 4.00 - 5.20 M/cu mm | [facility] | | | | | SERVICES, [...] (H) | 35.1 - 46.3 fL | [facility] | | | | | SERVICES, CORE | + + + + + | PLATELET COUNT | 237 | 150 - 400 K/cu mm | [facility] | | | | | SERVICES, CORE | + + + + + | MPV | 9.3 (L) | 9.7 - 12.3 fL | [facility] | | | | | SERVICES, CORE | + + + + + | NRBC% | 0.0 | 0.0 - 0.3 % | [facility] | | | | | SERVICES, [...] [facility] | [address] | [place] [address] | | | SERVICES, KOKI | [address] | | | + + + + + MAGNESIUM, PLASMA (12/06/2018 6:29 AM) + +-------+ + + | Component | Value | Ref Range | Performed At | + +-------+ + + | MAGNESIUM,PLASMA | 2.1 | 1.6 - 2.6 mg/dL | [facility] | | | | | KOKI STUART | + +-------+ + + + + | Specimen | + + | Blood - Blood | + + + + + + + | Performing | Address | City/State/Zipcode | Phone Number | | Organization | | | | + + + + + | [facility] | [address] | [place] [address] | | | SERVICES, KOKI | [address] | | | + + + + + BASIC METABOLIC SET (NA, K, CL, TCO2, BUN, CR, GLU, CA) (12/06/2018 6:29 AM) + +---------+ + + | Component | Value | Ref Range | Performed At | + +---------+ + + | GLUCOSE, PLASMA | 95 | 70 - 99 mg/dL | [facility] | | (LAB) | | | [...] >60 mL/min | [facility] | | CAMEROONIAN | | | SERVICES, CORE | + +---------+ + + | EGFR NON | >60 | >60 mL/min | [facility] | | -CAMEROONIAN | | | SERVICES, CORE | + [...] POTASSIUM CMNT | No Hemo | | [facility] | | | | | SERVICES, CORE | + +---------+ + + + + | Specimen | + + | Blood - Blood | + + + + + | Narrative | Performed At | + + + | GFR is estimated using the MDRD equation recommended by the | [facility] | | National Kidney Disease Education Program. [...] + + + + + | [facility] | [address] | [place] [address] | | | SERVICES, CORE | [address] | | | + + + + + X-RAY PORTABLE CHEST 1 VIEW (12/06/2018 6:10 AM) + + + | Narrative | Performed At | + + + | EXAM: [place] CHEST 1 VIEW HISTORY: SoB COMPARISON: Yesterday [...] Interface - 12/06/2018 8:38 AM PDT EXAM: NH CHEST 1 | | VIEW HISTORY: SoB [...] 46.1 | 35.1 - 46.3 fL | [facility] | | | | | SERVICES, CORE | + + + + + | PLATELET COUNT | 233 | 150 - 400 K/cu mm | [facility] | | | | | SERVICES, CORE | + + + + + | MPV | 8.9 (L) | 9.7 - 12.3 fL | [facility] | | | | | SERVICES, CORE | + + + + + | NRBC% | 0.0 | 0.0 - 0.3 % | [facility] | | | | | SERVICES, CORE | + + + + + | NRBC# | 0.00 | 0.00 - 0.02 K/cu mm | [facility] | | | | | SERVICES, KOKI | + + + + + + + | Specimen | + + | Blood - Blood | + + + + + + + | Performing | Address | City/State/Zipcode | Phone Number | | Organization | | | | + + + + + | [facility] | [address] | [place] [address] | | | SADE, KOKI | [address] [...] Images archived to | | | institution 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 | | + + + X-RAY PORTABLE CHEST 1 VIEW (12/05/2018 5:59 AM) + + + | Narrative | Performed At | + + + | EXAM: [place] CHEST 1 VIEW HISTORY: post left thoracotomy, [...] Interface - 12/05/2018 9:53 AM PDT EXAM: [place] CHEST 1 | | VIEW HISTORY: post [...] | | site: Radial Catheter size: 3 swiss x 5 cm Number of | | [...] (L) | 9.7 - 12.3 fL | [facility] | | | | | SERVICES, CORE | + + + + + | NRBC% | 0.0 | 0.0 - 0.3 % | [facility] | | | | | SERVICES, CORE | + + + + + | NRBC# | 0.00 | 0.00 - 0.02 K/cu mm | [facility] | | | | | SERVICES, CORE | + + + + + + + | Specimen | + + | Blood - Blood | + + + + + + + | Performing | Address | City/State/Zipcode | Phone Number | | Organization | | | | + + + + + | [facility] | [address] | [place] [address] | | | SERVICES, CORE | [address] | | | + + + + + MAGNESIUM, PLASMA (12/05/2018 1:45 AM) + +-------+ + + | Component | Value | Ref Range | Performed At | + +-------+ + + | MAGNESIUM,PLASMA | 1.8 | 1.6 - 2.6 mg/dL | [facility] | | | | | KOKI STUART | + +-------+ + + + + | Specimen | + + | Blood - Blood | + + + + + + + | Performing | Address | City/State/Zipcode | Phone Number | | Organization | | | | + + + + + | [facility] | [address] | [place] [address] | | | KOKI STUART | [address] [...] >60 mL/min | [facility] | | CAMEROONIAN | | | SERVICES, CORE | + +---------+ + + | EGFR NON | 59 (L) | >60 mL/min | [facility] | | -CAMEROONIAN | | | SERVICES, CORE | + [...] LABORATORY | | (LAB) | | | [facility], [facility] | + +---------+ + + | POTASSIUM CMNT | No Hemo | | [facility] | | | | | SERVICES, [facility] | + +---------+ + + | ANION GAP | 8 | 4 - 11 mmol/L | [facility] | | | | | SERVICES, [facility] | + +---------+ + + | ANION GAP(ALB | 11 | 4 - 11 mmol/L | [facility] | | CORRECTED) | | | SERVICES, CORE | + +---------+ + + + + | Specimen | + + | Blood - Blood | + + + + + | Narrative | Performed At | + + + | GFR is estimated using the MDRD equation recommended by the | [facility] | | National Kidney Disease Education Program. [...] [facility] | [address] | [place] [address] | | | SERVICES, CORE | [address] | | | + + + + + X-RAY PORTABLE CHEST 1 VIEW (12/04/2018 6:32 PM) + + + | Narrative | Performed At | + + + | EXAM: [place] CHEST 1 VIEW HISTORY: Status post left [...] Interface - 12/05/2018 9:54 AM PDT EXAM: [place] CHEST 1 | | VIEW HISTORY: Status [...] + + + + + | [facility] | [address] | [place] [address] | | | SADE, KOKI | [address] | | | + + + + + CBC (HEMOGRAM) ONLY (12/04/2018 5:56 PM) + + + + + | Component | Value | Ref Range | Performed At | + + + + + | WHITE CELL COUNT | 13.55 (H) | 3.50 - 10.80 K/cu mm | [facility] | | | | | SERVICES, CORE | + + + + + | RED CELL COUNT | 3.22 (L) | 4.00 - 5.20 M/cu mm | [facility] | | | | | SERVICES, [...] 0.0 | 0.0 - 0.3 % | [facility] | | | | | SERVICES, [...] [facility] | [address] | [place] [address] | | | KOKI STAURT | [address] | | | + + + + + BASIC METABOLIC SET (NA, K, CL, TCO2, BUN, CR, GLU, CA) (12/04/2018 5:56 PM) + +---------+ + + | Component | Value | Ref Range | Performed At | + +---------+ + + | GLUCOSE, PLASMA | 146 (H) | 70 - 99 mg/dL | [facility] | | (LAB) | | | SADE, CORE | + +---------+ + + | BUN, PLASMA (LAB) | 16 | 6 - 20 mg/dL | [facility] | | | | | SADE, CORE | + +---------+ + + | CREATININE PLASMA | 0.78 | 0.60 - 1.10 mg/dL | [facility] | | (LAB) | | | SERVICES, CORE | + +---------+ + + | EGFR - | >60 | >60 mL/min | [facility] | | [facility] | | | SERVICES, CORE | + +---------+ + + | EGFR NON | >60 | >60 mL/min | [facility] | | -[facility] | | | SERVICES, CORE | + [...] + + + + + | [facility] | [address] | [place] [address] | | | SERVICES, CORE | [address] [...] [facility] | [address] | [place], [place] | | | [facility] | [address] | [address] | | | TESTS | | | | + + + + + OPERATION RECORD (12/04/2018 4:05 PM) + + | Procedure Note | + + | Manoj Kumar MD - 12/04/2018 4:05 PM PDT Date of Service: 12/04/2018 Attending | | Surgeon:Manoj Kumar MD Lacquer Sprayer(s):Pritesh Chang | | Bethel Quevedo MD Preoperative [...] ribs were reapproximated using | | multiple [id number]-ft-[id number] #2 Vicryl sutures. Serratus closed with #1 Vicryl, | | subcutaneous tissue closed with 2-0 Vicryl, skin closed with 4-0 Vicryl. Sterile | | dressings were applied. A single 28-Hebrew chest tube was placed through the inferior [...] 12/04/2018 15:15:41DT: 12/04/2018 16:05:12Job #: | | [id number] | + + CAPILLARY BLOOD GLUCOSE (NO [...] [facility] | [address] | [place], [place] | | | [facility] | [address] | [address] | | | TESTS | | | [...] [facility] | [address] | [place], [place] | | | [facility] | [address] | [address] | | | TESTS | | | | + + + + + ABG-FULL ABL, POC (12/04/2018 12:55 PM) + + + + + | Component | Value | Ref Range | Performed At | + + + + + | PH ARTERIAL, POC | 7.41 | 7.37 - 7.44 | [facility] DONGAM | | | | | IESHA, [...] CINTRON | [address] | [place], [place] | | | IESHA POINT OF CARE | [address] | [address] | | | TESTS | | | [...] + + + | SUZE CINTRON | [address] | [place], [place] | | | MARISSA JAIMES OF CARE | [address] | [address] | | | TESTS | | | [...] (8th edition): | | | | | [id number]: The | | | | | tumor [...] PathologistPathology, | | | | | [facility] | | | | | [facility] | | | | | signature indicates [...] | LUNG (Lung - All | | [facility] | | | Specimens) SPECIMEN | [...] Description | Received are 18 | | [facility] | | | specimens fresh in | | OF PATHOLOGY | | | containers labeled with | | | | | the patient's name | | | | | (initials JAO) and | | | | | medical record number | | | | | [id number]. Lymph node, | | | | | [...] | surfaces. | | | | | Senior Vice President & General Counsel sections | | | | | are [...] cm. 9 | | | | | fairbansk-brown to monterroso-black | | | | | [...] positive | | | | | density, associate financial representative | | | | | [...] hilar mass. | | | | | Senior Vice President & General Counsel sections | | | | | are [...] node | | | | | from [id number]: 3.2 cm | | | | | [...] apical mass, | | | | | associate financial representative sections, | | | | | to include relationship | | | | | with pleura in | | | | | [id number]: Subpleural | | | | | induration, | | | | | associate financial representative | | | | | [id number]: Uninvolved | | | | | parenchyma, | | | | | associate financial representative | | | | | [id number]: 1 density | | | | | suggestive of lymph | | | | | node, [id number]: 1 | | | | | density [...] Intraoperative use | Frozen section | | [facility] | | only - Final | diagnosis: A1. Lymph | | OF PATHOLOGY | | diagnosis listed | node. level 7: Negative | | | | separately | for malignancy | | | | | (0/1)Frozen section | | | | | pathologist(s): Raiv | | | | | MD Devonte, PhD | | | | | | | | | | PathologistPathology, | | | | | [facility] | | | | [...] PathologistPathology, | | | | | [facility] | | | | [...] PathologistPathology, | | | | | [facility] | | | | [...] PathologistPathology, | | | | | [facility] | | | | [...] PathologistPathology, | | | | | [facility] | | | | [...] PathologistPathology, | | | | | [facility] | | | | [...] PathologistPathology, | | | | | [facility] | | | | [...] PathologistPathology, | | | | | [facility] | | | | [...] PathologistPathology, | | | | | [facility] | | | | [...] PathologistPathology, | | | | | [facility] | | | | [...] PathologistPathology, | | | | | [facility] | | | | [...] PathologistPathology, | | | | | [facility] | | | | [...] | | | | | | | PathologistALSU | | | | | PathologyLeighann | | | | | [place] that point | | | + + + + + | Ancillary | Analyte specific | | [facility] | | Information | reagents are [...] | | | | | determined by [facility] | | | | | laboratories. It [...] | + + + + + | [facility] | [address] | [place] [address] | | | PATHOLOGY | [address] | | | + + + + + FINE NEEDLE ASPIRATE (12/04/2018 8:06 AM) + + + + + | Component | Value | Ref Range | Performed At | + + + + + | Clinical History | 68 year-old woman with a | | [facility] | | | PET-avid left upper | | OF PATHOLOGY | | | lobe nodule. | | | + + + + + | Final Pathologic | A. Lymph node, level 7, | | [facility] | | Diagnosis | ultrasound guided [...] pathology case | | | | | ([id number])]. No | | | | | definite carcinoma cells | | | | | seen are seen in this | | | | | sampling, however see | | | | | case [id number]. Case | | | | | seen [...] | PathologistPathology, | | | | | [facility] | | | | | [place] My electronic | | | | | [...] Impression | A: Evaluation episode | | [facility] | | | #1: Pass #1-3: [...] | PathologistPathology, | | | | | [facility] | | | | | [place] | | | + + + + + | Procedure Details | A. FNA by clinician. 3 | | [facility] | | | passes yielded fluid [...] + + + + + | PR[facility] | [address] | [place] [address] | | | [facility] | | | | [facility] + [facility]ALING | | | | + + + + + | [facility] | [address] | [place] [address] | | | PATHOLOGY | [address] [...] + + + | SUZE CINTRON | [address] | [place], [place] | | | IESHA [facility] | [address] | [address] | | | TESTS | | | [...] | | | DAILY, First dose on [facility] 12/12/18 | | PDT | | | [...] | | | | | NEEDED, Starting [facility] 12/12/18 at | [...]
--- OUTSIDE RECORDS SUMMARY | ~2018-12-15 | XMS | Encounter Summary ---
Demographics + + + | Address | [address] | | | [place] [address] | + + + | Home Phone [...] + + + | Author | [facility] | + + + | Organization | [facility] | + + + | Address | [...] Team Providers + +------+ + | Care Dry Starch Operator Name | Role | Phone | [...] | | | | | floor [address] [facility] | | | | | | [facility] | | | | | | [place], [place] | | | | | | [address] | | | +--------+ + + + [...] Rd | | | | | | [place] | | | | | | [address] | | | | | | [phone] | | | | | | | | +--------+---------+ + + + as of this encounter Visit Diagnoses Not on filein this encounter
--- OUTSIDE RECORDS SUMMARY | ~2018-12-15 | XMS | Encounter Summary ---
Demographics + + + | Address | [address] | | | [place] [address] | + + + | Home Phone | | + + + | Preferred Language | Unknown | + + + | Marital Status | Single | + + + | Protestant Affiliation | NRP | + + + [...] Team Providers + +------+ + | Care Formula Weigher Name | Role | Phone | + [...] | | | | | SURGERY | [place], [place] | Road | | | | | [address] | [address] | Mailcode: | | | | | | Phone: | [address] | | | | | | [phone] | Physicians | | | | | | Fax: | Pavilion | | | | | | [phone] | [place], [place] | | | | | | | [address] | | | | | | | Phone: | | | | | | | [phone] | | | | | | | Fax: | | | | | | | [phone] | +--------+--------+ + + + + Diagnostic [...] | | Neoplasm | CARLO Allen | [facility] [address] | | | | | Procedures | [address] | [place] | | | | | STRESS | [address] | | | | | DOBUTAMINE | [place], [place] | Mailcode: | | | | | ECHOCARDIOGR | [address] | [address] | | | | | AM, ADULT | Phone: | Zoltan Calderón | | | | | | [phone] | [facility] | | | | | | Fax: | [place], [place] | | | | | | [phone] | [address] | | | | | | | Phone: | | | | | | | [phone] | +--------+--------+ + + + + Diagnostic [...] | | | | WWO CONTRAST | [place], [place] | [address] | | | | | [place] MRI | [address] | for Health | | | | | BRAIN COMBO | Phone: | and Healing, | | | | | | [phone] | 3rd Floor | | | | | | Fax: | [place], [place] | | | | | | [phone] | [address] | | | | | | | Phone: | | | | | | | [phone] | | | | | | | Fax: | | | | | | | [phone] | +--------+--------+ + + + + Reason [...] | SURGERY - | Rd | Rd [place], | | | | | CARDIOTHORAC | [place], [place] | [place] | | | | | IC | [address] | [address] | | | | | | Phone: | Phone: | | | | | | [phone] | [phone] | | | | | | Fax: | Fax: | | | | | | [phone] | [phone] | + +--------+ + + + + Encounter Details +--------+---------+ + + + | Date | Type | Department | Care Team | Description | +--------+---------+ + + + | 11/22/ | Office | Cardiothoracic | Manoj Kumar MD | Neoplasm (Primary | | 2019 | Visit | Surgery at [facility] | [address] | Dx) | | | | [address] | Zoltan Eulalio Luna | | | | | Mailcode: Center | [place], [place] | | | | | for Health and | [address] | | | | | Healing, Building [address] | [phone] | | | | | [facility] [place] | | | | | | [address] | | | | | | [phone] | | | +--------+---------+ + + + [...] Manoj Kumar MD - 11/22/2018 9:00 AM [facility] Thoracic Surgery Faculty Patient Name: Sussy Allred Date of : 1950 [facility] I personally reviewed the patient's CT Chest, [...] tumor board. Manoj Kumar M.D., FACS, FACCP glassware engraver Section of General Thoracic Surgery Division of Cardiothoracic Surgery Alejandro Waters, CARTRIDGE FEEDER - 11/22/2018 9:00 AM PDTGeneral Thoracic Surgery Consult Date of Service: 11/22/2018 Referring Provider: Rell Lovett MD [address] [place] [address] Primary Care Provider: MALLIKA Toledo [address] 6 [facility] [id number] Reason for consult: Bilateral pulmonary nodules History [...] or pancreatic cancer? Social History: Lives in [place] , has a significant other, [place] 7 pack-year history of smoking; trying to quit; started in 2004 No significant alcohol, illicit drug, or marijuana use Works full-time at [employer] Review of Systems: General: + night sweats [...] | 2019 | Visit | | [address] | | | | | | [facility] | | | | | | [place], [place] | | | | | | [address] | | | | | | [phone] | | | | | | | [...] (H) | 70 - 99 mg/dL | [facility] | | (LAB) | [...] >60 mL/min | [facility] | | [facility] | | | SERVICES, | | | | | [facility] FOR | | | | | HEALTH + | | | | | HEALING | + +---------+ + + | EGFR NON | 57 (L) | >60 mL/min | [facility] | | -[facility] | | | SERVICES, | | | [...] 9 | 4 - 11 mmol/L | [facility] | | | | [...] | + + + + + | [facility] | [address] | [place] [address] | | | [facility] | | | | | HEALTH + HEALING | | | | + + + + + INR (11/26/2018 3:18 PM) + +-------+ + + | Component | Value | Ref Range | Performed At | + +-------+ + + | INR | 0.93 | 0.90 - 1.20 INR | [facility] | | | | | [facility] | + +-------+ + + + + [...] | + + + + + | [facility] | [address] | [place] [address] | | | SERVICES, KOKI | [address] [...] Site: [facility] | | [facility] SPECIAL | | INTERPRETATION | [facility] | | DIAGNOSTICS - | | | [address] [facility], | | PULMONARY | | | [place], [place], | | FUNCTION | | | [id number]: | | | | | [id number] Name: ALLRED, | | | | | SUSSY Lopez Date: | | | | | 11/26/2018 Second ID: | | | | | [id number]: | | | | | Sara HurstAge: | | | | | 68 : | | | | | 1950 Sex: | | | | | Female Race: | | | | | CaucasianHeight: | | | | | 162.50 Cms Weight: | | | | | 59.00 Kgs BSA: | | | | | 1.63Order IDs: | | | | | [id number] | | | | | Test(s): <SPIROMETRY [...] | + + + + + | LNO90-78% PRE | 1.79 | 2.00 L/sec | [facility] | | | | | DIAGNOSTICS - | | | | | PULMONARY | | | | | FUNCTION | + + + + + | VQQ38-07% PRE (%REF) | 89 | % | [...] | + + + + + | [facility] | [address] [place] [address], [place] | | | DIAGNOSTICS - | [address] | [address] | | | PULMONARY FUNCTION | | | | + + + + + STRESS DOBUTAMINE ECHOCARDIOGRAM, ADULT (11/26/2018 11:43 AM) + + + | Narrative | Performed At | + + + | [facility] | [facility] DEPT OF | | [facility] Adult Echocardiography | CARDIOLOGY | | Laboratory [facility], | | | [place] [address] Pt Name: | | | SUSSY ALLRED Study Date / Time 11/26/2018 / | | | 11:43:08 AMMRN: | | | [id number] Most recent prior: 0Acc | | | #: [id number] No. previous echos: | | | 0DOB: 1950 Age: 68 | | | years Gender: FHeight: 64.0 | | | in BSA: | | | 1.62 u5Rvzvci: 129 lb Order | | | ID: [id number] medications: Diuretic and | | | Aspirin.Indications: Preoperative Evaluation Pin Drafting Machine Tender: Tania Birmingham | | | [facility] Referring Provider: Alejandro Bishop Location: [facility] | | | Performed: Dobutamine stress [...] Interface, Cardiology Results - 11/26/2018 1:25 PM [facility] | | [facility] Echocardiography Laboratory [address] [place] [address] | | [place], [place] [address] Pt Name: SUSSY REEVES | | WINNIE Study Date / Time 11/26/2018 / 11:43:08 AMMRN: [id number] | | Most recent prior: 0Acc #: [id number] No. previous echos: 0DOB: | | 1950 Age: 68 years Gender: FHeight: 64.0 in BSA: | | 1.62 m6Tzkgbm: 129 lb Order ID: | | [id number] medications: Diuretic and Aspirin.Indications: Preoperative Evaluation | | Pin Drafting Machine Tender: Tania Birmingham [facility] Referring Provider: Alejandro Bishop Location: | | [...] DEPT OF | [address] | [place], [place] | | | CARDIOLOGY | [address] | [address] | | + + + + + [...] DEPT OF | [address] | [place], [place] | | | CARDIOLOGY | [address] | [address] | | + + + + + in this encounter Visit Diagnoses + + | Diagnosis | + + | Neoplasm - Primary | + + | Neoplasm of unspecified nature, site unspecified | + +
--- OUTSIDE RECORDS SUMMARY | ~2018-12-15 | XMS | Encounter Summary ---
Demographics + + + | Address | [address] | | | [place] [address] | + + + | Home Phone [...] Author + + + | Author | [facility] | + + + | Organization | [facility] | + + + | Address [...] Team Providers + +------+ + | Care Cattle Dealer Name | Role | Phone | + [...] | | | | | unspecified | [place], [place] | [address] | | | | | laterality, | [address] | Health and | | | | | unspecified | Phone: | Healing, | | | | | part of lung | [phone] | Building [address] | | | | | (HCC) | Fax: | [place], [place] | | | | | Procedures | [phone] | [address] | | | | | CONSULT TO | | Phone: | | | | | HEMATOLOGY / | | [phone] | | | | | ONCOLOGY | | Fax: | | | | | PRACTICE | | [phone] | + +---------+ + + + + Encounter Details +--------+ + + + + | Date | Type | Department | Care Team | Description | +--------+ + + + + | 12/13/ | Supervisor [employer] | Cardiothoracic | Alejandro Waters NP | Malignant neoplasm | | 2019 | | Surgery at [facility] [address] | [address] | of lung, unspecified | | | | [address] | [place], [place] | laterality, | | | | [facility] Mailcode: | [address] | unspecified part of | | | | [address] Physicians | [phone] | lung (HCC) (Primary | | | | Joanne[place], | | Dx) | | | | [place] [address] | | | | | | [phone] | | | +--------+ + + + [...] Rd | | | | | | [place], [place] | | | | | | [address] | | | | | | [phone] | | | | | | | | +--------+---------+ + + + as of this encounter Visit Diagnoses + + | Diagnosis | + + | Malignant neoplasm of lung, unspecified laterality, unspecified part of lung (HCC) - | | Primary | + +
--- OUTSIDE RECORDS SUMMARY | ~2018-12-15 | XMS | Encounter Summary ---
Demographics + + + | Address | [address] | | | [place] [address] | + + + | Home Phone [...] + + + | Author | [facility] | + + + | Organization | [facility] | + + + | Address [...] Team Providers + +------+ + | Care Application Engineer Name | Role | Phone | [...] | | | | WWO CONTRAST | [place] | [facility] Center | | | | | CT MRI | [address] | for Health | | | | | BRAIN COMBO | Phone: | and Healing, | | | | | | [phone] | [facility] Floor | | | | | | Fax: | [place], [place] | | | | | | [phone] | [address] | | | | | | | Phone: | | | | | | | [phone] | | | | | | | Fax: | | | | | | | [phone] | +--------+--------+ + + + + Diagnostic [...] | | | | WWO CONTRAST | [place], [place] | [facility] | | | | | CT MRI | [address] | for Health | | | | | BRAIN COMBO | Phone: | and Healing, | | | | | | [phone] | 3rd Floor | | | | | | Fax: | [place], [place] | | | | | | [phone] | [address] | | | | | | | Phone: | | | | | | | [phone] | | | | | | | Fax: | | | | | | | [phone] | +--------+--------+ + + + + Reason [...] | | | | WWO CONTRAST | [place], [place] | [facility] | | | | | CT MRI | [address] | for Health | | | | | BRAIN COMBO | Phone: | and Healing, | | | | | | [phone] | 3rd Floor | | | | | | Fax: | [place], [place] | | | | | | [phone] | [address] | | | | | | | Phone: | | | | | | | [phone] | | | | | | | Fax: | | | | | | | [phone] | +--------+--------+ + + + + Encounter Details +--------+ + + + + | Date | Type | Department | Care Team | Description | +--------+ + + + + | 11/26/ | Hospital | Radiology/Imaging | Alejandro Waters NP | | | 2019 | Encounter | Lab at [facility] [address] | [address] | | | | | [address] | [place], [place] | | | | | Mailcode: [facility] | [address] | | | | | [facility] | [phone] | | | | | and [address] | | | | | | Floor [place], [place] | | | | | | [address] | | | | | | [phone] | | | +--------+ + + + [...] Rd | | | | | | [place], [place] | | | | | | [address] | | | | | | [phone] | | | | | | | [...]
--- OUTSIDE RECORDS SUMMARY | 2018-12-15 17:14 | XMS ---
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 EGhazala VISIT COUNT (12 MO.) 1 LYLE Staples TOTAL 1 NOTE: Visits indicate total known visits. ED/UCC VISIT TRACKING (12 MO.) 12/15/2018 17:11 LYLE Adam TYPE: Emergency COMPLAINT: - FEEDING TUBE ISSUE INPATIENT VISIT TRACKING (12 MO.) 12/04/2018 05:36 [facility] TYPE: Cardiac Surgery DIAGNOSES: 78060. 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 Gastro-esophageal reflux disease without esophagitis [email or web address]
== END 2018-12-15 18:17 | disposition home or self-care (01) ==
LOC: ED 17:11
DX: Z43.1 Encounter for attention to gastrostomy (principal); C34.90 Malignant neoplasm of unspecified part of unspecified bronchus or lung; Z87.891 Personal history of nicotine dependence; Z90.710 Acquired absence of both cervix and uterus; Z90.49 Acquired absence of other specified parts of digestive tract
CPT/HCPCS: 99282

== ENCOUNTER 2020-03-30 12:58 | Emergency (ER) | payer OTHER ==
[~2020-03-30] VITALS: Ht 162.6 cm; Wt 54.4 kg
--- OUTSIDE RECORDS SUMMARY | ~2020-03-30 | XMS | Encounter Summary ---
Demographics + + + | Address | [address] | | | [place] [address] | + + + | Home Phone | | + + + | Preferred Language | Unknown | + + + | Marital Status | Single | + + + | Confucianist Affiliation | Unknown | + + + | Race | Unknown | + + + | Ethnic Group | Unknown | + + + Author + + + | Author | [facility] | | | and Jakobana | + + + | Organization | [facility] | | | and Jakobana | + + + | Address | Unknown | + + + | Phone | Unavailable | + + + Support + + +---------+ + | Name | Relationship | Address | Phone | + + +---------+ + | Laura Allred | ECON | Unknown | | + + +---------+ + Care Team Providers + +------+ + | Care Kapok And Cotton Machine Operator Name | Role | Phone | + +------+ + | Lauryn Stuart PA-C | PCP | | + +------+ + Encounter Details +--------+ + + + + | Date | Type | Department | Care Team | Description | +--------+ + + + + | 04/04/ | Documentati | [facility] | Fiona Anne | | | 2019 | on | [facility] RAD[facility] | MD Issa [address] | | | | | [facility] CLIN[facility] [address] | [place] | | | | | [address] [place] | [address] | | | | | [place] [address] | | | | | | [phone] | | | +--------+ + + + + Social History + +-------+ +--------+ + | Tobacco Use | Types | Packs/Day | Years | Date | | | | | Used | | + +-------+ +--------+ + | Former Smoker | | 0.5 | 7 | 08/20/2004 - | | | | | | 08/20/2011 | + +-------+ +--------+ + + +---+---+---+ | Smokeless Tobacco: | | | | | Never Used | | | | + +---+---+---+ + + +---------+ + | Alcohol Use | Drinks/Week | oz/Week | Comments | + + +---------+ + | Yes | 7 Glasses of wine | 7.0 | | + + +---------+ + + + + | Sex Assigned at | Date Recorded | | | | + + + | Not on file | | + + + documented as of this encounter Progress Notes Fiona Anne MD - 04/04/2019 11:03 AM PDT Radiation Treatment Summary Diagnosis: ICD-10-CM ICD-9-CM 1. Malignant neoplasm of upper lobe of left lung (HCC) C34.12 162.3 Treatment Dates: Sussy Allred was treated in our clinic between the dates of 02/27/2019 - 04/04/2019. Intent: Curative Treatment Technique: VMAT Treatment Site: Lung Prescription and Treatment Summary: Course: Lung Plan ID Energy Fractions Dose per Fraction (cGy) Dose Correction (cGy) Total Dose Delivered (cGy) Elapsed Days PTV Lung 6X 25 / 25 200 0 5,000 36 Pain: Location: throat Pain Level: PAIN PROG PAIN LEVEL: 7 Pain Quality: Burning Current pain regimen: gabapentin, patient states she has gotten her fentanyl patch but has not started yet, states she will apply when she gets home. Chemotherapy: Concurrent systemic therapy PEMETREXED + CARBOPLATIN Q 21D X 4 CYCLES FOR NSCLC Start Date: 02/05/2019 End Date: 04/10/2019 Assessment: Sussy Allred completed the planned course of course of external beam radiation therapy without any unexpected complications or breaks. During treatment and MRI of the brain was obtained on 03/14/2019 due to headaches, the study demonstrated small areas of T2/FLAIR hype rintensity cavity with faint enhancement at the bilateral occipital lobes, nonspecific. Fol low-up MRI will be needed. Treatment tolerance: Expected moderate fatigue. Radiation esophagitis and postthoracotomy pain. Disease response to treatment: No evidence of disease. Disposition: 1. Follow-up in our clinic: Dr. Anne at the end of March after MRI a. Labs: Per medical oncology b. Imaging: MRI brain in late March 2. Follow-up with Dr. Mata. Coordination of care will be arranged between providers for future visits. Sussy Allred was encouraged to call our clinic with any further questions or concerns. Thank you for allowing me to participate in her care. If you should have any questions reg arding this treatment summary, please do not hesitate to contact me. Fiona Anne MD Radiation Oncologist Department of Radiation Oncology [facility] documented in this encounter Plan of Treatment +--------+ + + + + | Date | Type | Specialty | Care Team | Description | +--------+ + + + + | 04/20/ | Appointment | Radiation Oncology | Treva Ortega | | 2019 | | | DEISY Hernandez [address] | | | | | | [address] | | | | | | [place] [address] | | | | | | [phone] | | | | | | | | +--------+ + + + + documented as of this encounter Visit Diagnoses + + | Diagnosis | + + | Malignant neoplasm of upper lobe of left lung (HCC) - Primary | + + documented in this encounter"
--- OUTSIDE RECORDS SUMMARY | ~2020-03-30 | XMS | Encounter Summary ---
Demographics + + + | Address | [address] | | | [place] [address] | + + + | Home Phone | | + + + | Preferred Language | Unknown | + + + | Marital Status | Single | + + + | Catholic Affiliation | Unknown | + + + | Race | Unknown | + + + | Ethnic Group | Unknown | + + + Author + + + | Author | [facility] | | | and Jakobana | + + + | Organization | [facility] | | | and Jakobana | [...] Team Providers + +------+ + | Care Marble Finisher Name | Role | Phone | + +------+ + | Lauryn Stuart PA-C | PCP | | + +------+ + Encounter Details +--------+ + + + + | Date | Type | Department | Care Team | Description | +--------+ + + + + | 01/22/ | Imaging | [facility] | Provider, | | | 2019 | Exam | [facility] | MD [address] | | | | | IMAGING [address] | | | | | [address] [place] | [place] [address] | | | | | [place] [address] | | | | | | [phone] | | | +--------+ + + + + Social History + +-------+ +--------+------+ | Tobacco Use | Types | Packs/Day | Years | Date | | | | | Used | | + +-------+ +--------+------+ | Never Assessed | | | | | + +-------+ +--------+------+ + + + | Sex Assigned at | Date Recorded | | | | + + + | Not on file | | + + + documented as of this encounter Plan of Treatment +--------+ + + + + | Date | Type | Specialty | Care Team | Description | +--------+ + + + + | 04/20/ | Appointment | Radiation Oncology | Treva Ortega | | | 2019 | | | [place] [address] | | | | | | [place] | | | | | | [place] [address] | | | | | | [phone] | | | | | | | | +--------+ + + + + documented as of this encounter Procedures + +--------+ + + + | Procedure Name | Priori | Date/Time | Associated Diagnosis | Comments | | | ty | | | | + +--------+ + + + | XR CHEST AP PORTABLE | Routin | 12/09/2018 | | Results for this | | | e | 5:35 PM | | procedure are in the | | | | PDT | | results section. | + +--------+ + + + documented in this encounter Results XR Chest AP Portable (12/09/2018 5:35 PM PDT) + + | Specimen | + + | | + + + + + | Narrative | Performed At | + + + | External films for comparison only | [facility] | | | | | No results will be in the chart. | | + + + + +---------+ + + | Performing | Address | City/State/Zipcode | Phone Number | | Organization | | | | + +---------+ + + | [facility] | | | | + +---------+ + + documented in this encounter Visit Diagnoses Not on filedocumented in this encounter"
--- OUTSIDE RECORDS SUMMARY | ~2020-03-30 | XMS | Encounter Summary ---
Demographics + + + | Address | [address] | | | [place] [address] | + + + | Home Phone | | + + + | Preferred Language | Unknown | + + + | Marital Status | Single | + + + | Restorationist Affiliation | Unknown | + + + | Race | Unknown | + + + | Ethnic Group | Unknown | + + + Author + + + | Author | [facility] | | | and Jakobana | + + + | Organization | [facility] | | | and Jakobana [...] Team Providers + +------+ + | Care Coding Clerks Supervisor Name | Role | Phone | + +------+ + | Lauryn Stuart PA-C | PCP | | + +------+ + Reason for Visit Service/Procedure (Routine) +--------+--------+ + + + + | Status | Reason | Specialty | Diagnoses / | Referred By | Referred To | | | | | Procedures | Contact | Contact | +--------+--------+ + + + + | Closed | | Infusion | Diagnoses | | [facility] | | | | Therapy | Malignant | Adolof, | Infusion [address] | | | | | neoplasm of | Boubacar Daniels, | [address] [place] | | | | | unspecified | MD [address] | [place], | | | | | part of | [place] | [place] [address] | | | | | unspecified | [address] | Phone: | | | | | bronchus or | [place], | [phone] | | | | | lung (HCC) | [place] [address] | Fax: | | | | | Procedures | Phone: | [phone] | | | | | MS VITAMIN | [phone] | | | | | | B12 | Fax: | | | | | | INJECTION, | [phone] | | | | | | [address] | | | | | | | ONDANSETRON | | | | | | | ORAL MS | | | | | | | ORAL | | | | | | | DEXAMETHASON | | | | | | | E, .25 MG | | | | | | | MS INJ., | | | | | | | APREPITANT, | | | | | | | 1 MG MS | | | | | | | PEMETREXED | | | | | | | INJECTION, | | | | | | | 10 MG MS | | | | | | | CARBOPLATIN | | | | | | | INJECTION, | | | | | | | 50 MG MS | | | | | | | ADRENALIN | | | | | | | EPINEPHRINE | | | | | | | INJECT, .1 | | | | | | | MG MS | | | | | | | DIPHENHYDRAM | | | | | | | INE HCL | | | | | | | INJECTIO, 50 | | | | | | | MG MS | | | | | | | METHYLPREDNI | | | | | | | SOLONE | | | | | | | INJECTION, | | | | | | | 125 MG MS | | | | | | | ALBUTEROL | | | | | | | COMP CON, 1 | | | | | | | MG MS | | | | | | | ALBUTEROL | | | | | | | NON-COMP | | | | | | | CON, 1 MG | | | | | | | MS | | | | | | | INJECTION, | | | | | | | FAMOTIDINE, | | | | | | | 20 MG MS | | | | | | | NORMAL | | | | | | | SALINE | | | | | | | SOLUTION | | | | | | | INFUS, 500 | | | | | | | ML MS | | | | | | | NORMAL | | | | | | | SALINE | | | | | | | SOLUTION | | | | | | | INFUS, 250 | | | | | | | ML MS | | | | | | | STERILE | | | | | | | WATER/SALINE | | | | | | | , 10 ML MS | | | | | | | CHEMOTHER, | | | | | | | IV PUSH,EA | | | | | | | ADD DRUG MS | | | | | | | CHEMOTHER, | | | | | | | IV INFUSION, | | | | | | | 1 HR MS | | | | | | | CHEMOTHER, | | | | | | | IV INFUSION, | | | | | | | EA HR MS | | | | | | | CHEMOTHER,NO | | | | | | | N-HORMONE | | | | | | | ANTI-NEOPL, | | | | | | | SUB-Q/IM MS | | | | | | | CHEMOTHER | | | | | | | HORMON | | | | | | | ANTINEOPL | | | | | | | SUB-Q/IM MS | | | | | | | | | | | | | | PALONOSETRON | | | | | | | HCL, 25 MCG | | | +--------+--------+ + + + + Encounter Details +--------+ + + + + | Date | Type | Department | Care Team | Description | +--------+ + + + + | 04/29/ | Hospital | [facility] | Adolfo, | Dysphagia, | | 2019 | Encounter | MED CTR CHEMO | Boubacar Daniels MD [address] | unspecified type | | | | INFUSION [address] [place] [place] | (Primary Dx); 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[place], | [address] [place], [place] | cord paralysis; | | | | [place] [address] | [id number] | Malignant neoplasm | | | | [phone] | | of hilus of lung, | | | | | | unspecified | | | | | | laterality (HCC) | +--------+ + + + + Social [...] + + documented as of this encounter Last Filed Vital Signs + + + + + | Vital Sign | Reading | Time Taken | Comments | + + + + + | Blood Pressure | 144/65 | 04/29/2019 9:41 AM | | | | | PDT | | + + + + + | Pulse | 74 | 04/29/2019 9:41 AM | | | | | PDT | | + + + + + | Temperature | 36.9 C (98.4 F) | 04/29/2019 9:41 AM | | | | | PDT | | + + + + + | Respiratory Rate | 16 | 04/29/2019 9:41 AM | | | | | PDT | | + + + + + | Oxygen Saturation | 99% | 04/29/2019 9:41 AM | | | | | PDT | | + + + + + | Inhaled Oxygen | - | - | | | Concentration | | | | + + + + + | Weight | - | - | | + + + + + | Height | - | - | | + + + + + | Body Mass Index | - | - | | + + + + + documented in this encounter Medications at Time of Discharge + + + +---------+ + + | Medication | Sig | Dispensed | Refills | Start | End Date | | | | | | Date | | + + + +---------+ + + | acetaminophen | Take 325-650 mg by | | 0 | 12/15/19 | | | (TYLENOL) 325 mg | mouth every 6 hours | | | 19 | | | tablet | as needed. | | | | | + + + +---------+ + + | buPROPion | Take 300 mg by mouth | | 0 | 02/12/20 | | | (WELLBUTRIN XL) 300 | every morning. | | | 19 | | | mg 24 hr tablet | | | | | | + + + +---------+ + + | cilostazol | Take 50 mg by mouth | | 0 | 11/12/19 | | | (PLETAL) 50 mg | Daily. | | | 19 | | | tablet | | | | | | + + + +---------+ + + | cyanocobalamin | Take 500 mcg by | | 0 | | | | (VITAMIN B-12) 1000 | mouth Daily. | | | | | | MCG tablet | | | | | | + + + +---------+ + + | estradiol | Take 2 mg by mouth | | 0 | 07/28/20 | | | (ESTRACE) 2 MG | Daily. | | | 14 | | | tablet | | | | | | + + + +---------+ + + | lansoprazole | Take 30 mg by mouth | | 0 | 07/28/20 | | | (PREVACID) [address] | Daily. | | | 14 | | | capsule | | | | | | + + + +---------+ + + | levothyroxine | Take 50 mcg by mouth | | 0 | 10/23/19 | | | (SYNTHROID) 50 mcg | Daily. | | | 19 | | | tablet | | | | | | + + + +---------+ + + | ondansetron | One tablet twice a | 40 | 1 | 01/31/20 | | | (ZOFRAN ODT) 8 mg | day for two days | tablet | | 19 | | | disintegrating | after chemotherapy | | | | | | tablet | to block nausea | | | | | + + + +---------+ + + | | Take 5 mLs by mouth | 473 mL | 0 | 03/31/20 | | | acetaminophen-codein | every 6 hours as | | | 19 | 0 | | e 120-12 mg/5 mL | needed for Pain. | | | | | | solution | | | | | | + + + +---------+ + + | acyclovir | Take 400 mg by mouth | | 0 | | | | (ZOVIRAX) 400 MG | Daily. | | | | 0 | | tablet | | | | | | + + + +---------+ + + | ALPRAZolam (XANAX) | 0.5 mg nightly as | | 2 | 02/01/20 | | | 0.5 mg tablet | needed (taking every | | | 19 | 9 | | | night.). | | | | | + + + +---------+ + + | Amino Acids (AMINO | Take 1 Scoop by | | 0 | | | | ACID PO) | mouth Daily. | | | | 0 | + + + +---------+ + + | CARAFATE 1 GM/10ML | | | 0 | 04/12/20 | | | suspension | | | | 19 | 0 | + + + +---------+ + + | dexamethasone | Take one tablet | 40 | 0 | 01/31/20 | | | (DECADRON) 4 mg | twice a day on the | tablet | | 19 | 0 | | tablet | day before | | | | | | | chemotherapy and for | | | | | | | two days after | | | | | | | chemotherapy. | | | | | + + + +---------+ + + | | Take 5 mLs by mouth | 237 mL | 2 | 04/10/20 | | | diphenhydrAMINE-lido | every 4 hours as | | | 19 | 0 | | jamilah-aluminum & | needed for Pain. | | | | | | magnesium | (RECIPE = 1:1:1 | | | | | | hydroxide-simethicon | mixture of Maalox, | | | | | | e (MAGIC | diphenhydrAMINE, | | | | | | MOUTHWASH)Indication | viscous lidocaine) | | | | | | s: Malignant | | | | | | | neoplasm of upper | | | | | | | lobe of left lung | | | | | | | (HCC) | | | | | | + + + +---------+ + + | fentaNYL | Place 1 patch onto | 10 | 0 | 04/22/20 | | | (DURAGESIC) 50 | the skin every 72 | patch | | 19 | 9 | | mcg/hr | hours. | | | | | + + + +---------+ + + | folic acid 1 mg | Take 1 tablet by | 100 | 0 | 01/31/20 | | | tablet | mouth Daily for 100 | tablet | | 19 | 9 | | | days. | | | | | + + + +---------+ + + | gabapentin | Take one capsule by | 90 | 0 | 03/27/20 | | | (NEURONTIN) 300 mg | mouth at bedtime for | capsule | | 19 | 0 | | capsule | one day, then one | | | | | | | capsule twice daily | | | | | | | for one day, then 1 | | | | | | | capsule three times | | | | | | | daily | | | | | + + + +---------+ + + | HYDROmorphone | Take 1 tablet by | 90 | 0 | 04/22/20 | | | (DILAUDID) 2 mg | mouth every 3 hours | tablet | | 19 | 9 | | tablet | as needed for Pain. | | | | | + + + +---------+ + + | Lidocaine HCl | Take 5 mLs by mouth | 500 mL | 2 | 03/31/20 | | | (MAGIC + NYSTATIN | every 4 hours. | | | 19 | 0 | | MOUTHWASH) | | | | | | + + + +---------+ + + | LORazepam (ATIVAN) | Take one tablet | 30 | 4 | 02/05/20 | | | 1 mg tablet | orally every 4 hours | tablet | | 19 | 0 | | | as needed for | | | | | | | nausea, anxiety or | | | | | | | sleeplessness | | | | | + + + +---------+ + + | Misc Natural | Take 2 oz by mouth | | 0 | | | | Products (HIMALAYAN | Daily. | | | | 0 | | GOJI PO) | | | | | | + + + +---------+ + + | mometasone | Apply twice a day to | 50 g | 0 | 03/13/20 | | | (ELOCON) 0.1 % cream | affected area | | | 19 | 0 | + + + +---------+ + + | non-formulary | Take 3 oz by mouth | | 0 | | | | medication | Daily. Nopalea | | | | 0 | | | supplement | | | | | + + + +---------+ + + | prochlorperazine | Take 1 tablet by | 30 | 1 | 03/20/20 | | | 10 mg tablet | mouth every 6 hours | tablet | | 19 | 0 | | | as needed for | | | | | | | Nausea. | | | | | + + + +---------+ + + | sucralfate | Take 1 tablet by | 120 | 1 | 03/31/20 | | | (CARAFATE) 1 g | mouth 4 times daily. | tablet | | 19 | 0 | | tablet | | | | | | + + + +---------+ + + | | Take 0.5 tablets by | | 0 | 12/15/19 | | | triamterene-hydrochl | mouth Daily. | | | 19 | 0 | | orothiazide | | | | | | | (MAXZIDE-25) 37.5-25 | | | | | | | mg per tablet | | | | | | + + + +---------+ + + documented as of this encounter Progress Notes Vee Anderson RN - 04/29/2019 9:47 AM PDTPatient discharged in satisfactory condit ion. Discharged ambulatory. With self. To home. Verified that patient has antinausea medications at home. Future appointments and After Visit Summary (AVS) provided. Bailee Dominguez RN - 04/29/2019 8:10 AM PDTE nergy level: energy slightly improved Fever or chills: none Appetite: fair, she is still trying to drink fluids- is only drinking 3 glasses of water an d 1 carnation instant breakfast per day. I have highly encourage her to increase fluid intak e and try eating foods high in iron like kale, spinach etc even in soups. Nausea and/or vomiting: none Bowels: slightly constipated, last bowel movement was this morning- small amount Numbness and tingling: no changes Bleeding or bruising: no issues Karnofsky: 80 Nurses notes: Here for fluid infusion today, denies any concerns currently. States that she thinks fluids really help her feel better, I have tried encouraging her to increase oral fl uid intake and especially protein containing drinks. She voices understanding, does not know if she can try for any more than she is currently taking. documented in this encounter Plan of Treatment +--------+ + + + + | Date | Type | Specialty | Care Team | Description | +--------+ + + + + | 04/20/ | Appointment | Radiation Oncology | Treva Ortega | | | 2019 | | | [place] [address] | | | | | | [facility] [facility] | | | | | | [place] [address] | | | | | | [phone] | | | | | | | | +--------+ + + + + documented as of this encounter Visit Diagnoses + + | Diagnosis | + + | Dysphagia, unspecified type - Primary | + + | Vocal cord paralysis Paralysis of vocal cords or larynx, unspecified | + + | Malignant neoplasm of hilus of lung, unspecified laterality (HCC) | + + documented in this encounter Administered Medications + +--------+ +-------+------+------+ | Medication Order | MAR | Action | Dose | Rate | Site | | | Action | Date | | | | + +--------+ +-------+------+------+ | heparin 100 units/mL flush | Given | 04/29/20 | 500 | | | | injection 500 Units 500 Units (5 | | 19 9:43 | Units | | | | mL), Intracatheter, PRN, Line | | AM PDT | | | | | Care, Starting Sun04/29/19 at | | | | | | | 0757 | | | | | | + +--------+ +-------+------+------+ +---+---+ | | | +---+---+ + +---------+ +---+-------+---+ | sodium chloride 0.9% (NS) | New Bag | 04/29/20 | | 800 | | | infusion at 800 mL/hr, | | 19 8:10 | | mL/hr | | | Intravenous, ONCE, 04/29/19 at | | AM PDT | | | | | 0815, For 1 dose, Give 1 liter | | | | | | | NS as needed per patient request, | | | | | | | | | | | | | + +---------+ +---+-------+---+ +---+---+ | | | +---+---+ documented in this encounter"
--- OUTSIDE RECORDS SUMMARY | ~2020-03-30 | XMS | Encounter Summary ---
Demographics + + + | Address | [address] | | | [place] [address] | + + + | Home Phone | | + + + | Preferred Language | Unknown | + + + | Marital Status | Single | + + + | Tenriism Affiliation | NRP | + + + | Race | White | + + + | Ethnic Group | Not or | + + + Author + + + | Author | [facility] | + + + | Organization | [facility] | + + + | Address | Unknown | + + + | Phone | Unavailable | + + + Support + + +---------+ + | Name | Relationship | Address | Phone | + + +---------+ + | Laura Allred | ECON | Unknown | | + + +---------+ + Care Team Providers + +------+ + | Care Gold Buyer Name | Role | Phone | + [...] | +--------+ + + + + | 10/09/ | Hospital | Outpatient Care | Augustine Nolan | | | 2019 - | Encounter | Unit at [facility] [address] | MD Debbie [address] [facility] | | | | | Viktor Mckinney Mailcode: | [address] | | | 10/10/ | | [facility] | [place], [place] | | | 2019 | | and [place], | [address] | | | | | [address] | [phone] | | | | | [place], [place] | | | | | | [address] | | | | | | [phone] | | | +--------+ + + + + Social History + + + +--------+------+ | Tobacco Use | Types | Packs/Day | Years | Date | | | | | Used | | + + + +--------+------+ | Former Smoker | Cigarettes | | 9 | | + + + +--------+------+ + +---+---+---+ | Smokeless Tobacco: | | | | | Never Used | | | | + +---+---+---+ + + +---------+ + | Alcohol Use | Drinks/Week | oz/Week | Comments | + + +---------+ + | Yes | | | Depends. Drinks wine | | | | | "often" | + + +---------+ + + + + | Sex Assigned at | Date Recorded | | | | + + + | Not on file | | + + + + + + + | Job Start Date | Occupation | Industry | + + + + | Not on file | Not on file | Not on file | + + + + + + + + | Travel History | Travel Start | Travel End | + + + + + + | No recent travel history available. | + + documented as of this encounter Last Filed Vital Signs + + + + + | Vital Sign | Reading | Time Taken | Comments | + + + + + | Blood Pressure | 135/70 | 10/10/2019 11:04 AM | | | | | PST | | + + + + + | Pulse | 73 | 10/10/2019 11:04 AM | | | | | PST | | + + + + + | Temperature | 36.5 C (97.7 F) | 10/10/2019 11:04 AM | | | | | PST | | + + + + + | Respiratory Rate | 14 | 10/10/2019 11:04 AM | | | | | PST | | + + + + + | Oxygen Saturation | 100% | 10/10/2019 11:04 AM | | | | | PST | | + + + + + | Inhaled Oxygen | - | - | | | Concentration | | | | + + + + + | Weight | 54.4 kg (120 lb) | 10/09/2019 6:00 AM | | | | | PST | | + + + + + | Height | 162.6 cm (5' 4") | 10/09/2019 6:00 AM | | | | | PST | | + + + + + | Body Mass Index | 20.6 | 10/09/2019 6:00 AM | | | | | PST | | + + + + + documented in this encounter Functional Status + + + [...] | | | + + + + documented as of this encounter Discharge Summaries Augustine Nolan MD - 10/10/2019 7:48 AM PST [facility] Discharge Summary Discharging Provider: Augustine Nolan MD Discharging Attending Physician: Augustine Nolan M.D. 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 CONTINUE taking these medications acetaminophen 325 mg Tab Commonly known as: TYLENOL Take 1-2 tablets by mouth every six hours as needed. Indications: fever, Pain acyclovir 400 mg Tab Commonly known as: ZOVIRAX Take 400 mg by mouth once daily. ALPRAZolam 0.25 mg Tab Commonly known as: XANAX Take 0.25 mg by mouth once daily at bedtime as needed. arginine 500 mg Tab Take 1,000 mg by mouth once daily with dinner. buPROPion XL 300 mg Tb24 Commonly known as: WELLBUTRIN-XL Take 300 mg by mouth once daily. cilostazoL 50 mg Tab Commonly known as: PLETAL Take 1 tablet by mouth two times daily. cyanocobalamin (vitamin B-12) 2,500 mcg Tab Take 2,500 mcg by mouth once daily. doxycycline hyclate 100 mg Cap Commonly known as: VIBRAMYCIN Take 100 mg by mouth once daily. Indications: skin infection estradioL 2 mg Tab Commonly known as: ESTRACE Take 2 mg by mouth once daily. fentaNYL 50 mcg/hr patch Commonly known as: DURAGESIC Apply 1 patch to skin every seventy-two hours. Please remove old patch prior to placing a n ew one. HAIR, SKIN AND NAILS ADVANCED ORAL Take 1 tablet by mouth once daily with dinner. HYDROcodone-acetaminophen 7.5-325 mg Tab Commonly known as: NORCO Take 2 tablets by mouth three times daily. lansoprazole 30 mg Cpdr Commonly known as: PREVACID Take 30 mg by mouth once daily. levothyroxine 50 mcg Tab Take 50 mcg by mouth before breakfast. MACUVITE ORAL Take 1 tablet by mouth once daily with dinner. nicotine polacrilex 2 mg Gum Commonly known as: NICORETTE Take 2 mg by mouth as needed. Chew slowly PROBIOTIC ACIDOPHILUS ORAL Take 1 capsule by mouth once daily. senna-docusate 8.6-50 mg Tab Commonly known as: SENOKOT S Take 1 tablet by mouth twice daily as needed for constipation. Indications: constipation triamterene-hydrochlorothiazide 37.5-25 mg Tab Commonly known as: MAXZIDE Take 0.5 tablets by mouth once daily. Indications: high blood pressure Rationale for Medication Changes: Post-operative pain Allergies: Allergies Allergen Reactions Ketorolac Anaphylaxis Latex Rash Code Status: Full POLST completed: no Additional Instructions: Diet Instructions Diet Type: Regular diet- There are no restrictions to your diet. You may eat or drink wha tever you prefer, though healthy food choices are recommended. - Activity Instructions Activity Instructions: Lifting restrictions - Restrict the amount of lifting as instructe d by your physician to prevent injury and promote healing. Avoid vocal abuse Follow Up: Future Appointments Provider Department Dept Phone Center 10/31/2019 1:00 PM Ivone Sanchez [facility] Otolaryngolo 10/31/2019 1:30 PM Augustine Nolan Otolaryngology L[facility]ology Services at [facility] [phone] Otolaryngolo docudoc in thi s encounter Discharge Instructions Discharge Instr - AVS First Page Augustine Nolan MD - 10/10/2019 7:47 AM Fredrick Nolan M.D. Dermatology Nurse Laryngology and Head & Neck Surgery For after hour emergencies, call [phone] or [phone] Discharge Instr - Activity Augustine Nolan MD - 10/10/2019 7:46 AM PSTActivity Instru ctions: Lifting restrictions - Restrict the amount of lifting as instructed by your physici an to prevent injury and promote healing. Avoid vocal abuse T Discharge Instr - Diet Augustine Nolan MD - 10/10/2019 7:46 AM PSTDiet Type: Regular diet- There are no restrictions to your diet. You may eat or drink whatever you prefer, tho ugh healthy food choices are recommended. Discharge Instr - Diagnoses Augustine Nolan MD - 10/10/2019 7:45 AM PSTleft vocal fol d paralysis with pharyngeal dysphagia and dysphonia Discharge Instr - Procedures Augustine Nolan MD - 10/10/2019 7:45 AM PSTleft medializ ation thyroplasty Discharge Instr - Hospital Course Augustine Nolan MD - 10/10/2019 7:45 AM PSTuncompli cated sedative anesthesia for procedure and recovery Discharge Instr - Electronic Signature Augustine Nolan MD - 10/10/2019 7:47 AM PSTAft er Visit Summary Signature Electronically signed by: Augustine Nolan MD, 10/10/2019 at 7:47 AMElectronically sign ed by Augustine Nolan MD at 10/10/2019 7:47 AM PST documented in this encounter Medications at Time of Discharge + + + +---------+ + + | Medication | Sig | Dispensed | Refills | Start | End Date | | | | | | Date | | + + + +---------+ + + | acetaminophen 325 | Take 1-2 tablets by | | 0 | 12/15/19 | | | mg oral | mouth every six | | | 19 | | | tabletIndications: | hours as needed. | | | | | | fever, pain | Indications: fever, | | | | | | | Pain | | | | | + + + +---------+ + + | acyclovir 400 mg | Take 400 mg by mouth | | 0 | 08/08/20 | | | oral tablet | once daily. | | | 19 | | + + + +---------+ + + | ALPRAZolam 0.25 mg | Take 0.25 mg by | | 3 | 11/07/19 | | | oral tablet | mouth once daily at | | | 19 | | | | bedtime as needed. | | | | | + + + +---------+ + + | arginine 500 mg | Take 1,000 mg by | | 0 | | | | oral tablet | mouth once daily | | | | | | | with dinner. | | | | | + + + +---------+ + + | | Take 1 tablet by | | 0 | | | | beta-carotene(A)-vit | mouth once daily | | | | | | s C,E/mins (MACUVITE | with dinner. | | | | | | ORAL) | | | | | | + + + +---------+ + + | buPROPion XL 300 | Take 300 mg by mouth | | 0 | 10/22/ | | | mg oral tablet | once daily. | | | 19 | | | extended release 24 | | | | | | | hr | | | | | | + + + +---------+ + + | cilostazol 50 mg | Take 1 tablet by | | 0 | 11/12/19 | | | oral tablet | mouth two times | | | 19 | | | | daily. | | | | | + + + +---------+ + + | cyanocobalamin | Take 2,500 mcg by | | 0 | | | | (vitamin B-12) 2,500 | mouth once daily. | | | | | | mcg oral tablet | | | | | | + + + +---------+ + + | doxycycline | Take 100 mg by mouth | | 0 | 08/17/20 | | | hyclate 100 mg oral | once daily. | | | 16 | | | capsuleIndications: | Indications: skin | | | | | | dermatologic | infection | | | | | + + + +---------+ + + | estradiol 2 mg | Take 2 mg by mouth | | 0 | 10/23/19 | | | oral tablet | once daily. | | | 19 | | + + + +---------+ + + | fentaNYL 50 mcg/hr | Apply 1 patch to | | 0 | 10/02/19 | | | transdermal patch | skin every | | | 20 | | | | seventy-two hours. | | | | | | | Please remove old | | | | | | | patch prior to | | | | | | | placing a new one. | | | | | + + + +---------+ + + | | Take 2 tablets by | | 0 | | | | HYDROcodone-acetamin | mouth three times | | | | | | ophen 7.5-325 mg | daily. | | | | | | oral tablet | | | | | | + + + +---------+ + + | Lactobacillus | Take 1 capsule by | | 0 | | | | acidophilus | mouth once daily. | | | | | | (PROBIOTIC | | | | | | | ACIDOPHILUS ORAL) | | | | | | + + + +---------+ + + | lansoprazole 30 mg | Take 30 mg by mouth | | 0 | // | | | oral | once daily. | | | 19 | | | capsule,delayed | | | | | | | release(DR/EC) | | | | | | + + + +---------+ + + | levothyroxine 50 | Take 50 mcg by mouth | | 0 | | | | mcg oral tablet | before breakfast. | | | | | + + + +---------+ + + | | Take 1 tablet by | | 0 | | | | multivit-min/iron/fo | mouth once daily | | | | | | [id number] (HAIR, | with dinner. | | | | | | SKIN AND NAILS | | | | | | | ADVANCED ORAL) | | | | | | + + + +---------+ + + | nicotine | Take 2 mg by mouth | | 0 | | | | polacrilex 2 mg | as needed. Chew | | | | | | buccal gum | slowly | | | | | + + + +---------+ + + | oxyCODONE | Take 1-3 tablets by | 90 | 0 | 10/10/19 | | | (immediate release) | mouth every four | tablet | | 20 | | | 5 mg oral | hours as needed for | | | | | | tabletIndications: | moderate pain or | | | | | | Paralysis of left | severe pain | | | | | | vocal fold | (unresponsive to | | | | | | | non-opioid | | | | | | | medication). | | | | | + + + +---------+ + + | senna-docusate | Take 1 tablet by | | 0 | 12/14/19 | | | 8.6-50 mg oral | mouth twice daily as | | | 19 | | | tabletIndications: | needed for | | | | | | constipation | constipation. | | | | | | | Indications: | | | | | | | constipation | | | | | + + + +---------+ + + | | Take 0.5 tablets by | 14 | 0 | 12/15/19 | | | triamterene-hydrochl | mouth once daily. | tablet | | 19 | | | orothiazide 37.5-25 | Indications: high | | | | | | mg oral | blood pressure | | | | | | tabletIndications: | | | | | | | hypertension | | | | | | + + + +---------+ + + documented as of this encounter Progress Notes Cassandra Penaloza, ACNP - 10/10/2019 1:37 AM PSTFormatting of this note might be different f rom the original. [facility] & [place] [address] OVERNIGHT OUTPATIENT CARE UNIT PROVIDER NOTE: Attending Physician: Augustine Nolan MD ENT 10/09/2019 1:37 AM I assumed care of Sussy Allred and have reviewed the Primary surgical team's hand off report and have physically assessed the patient. I have also reviewed the medical record for history and medications. Please see primary team's note for surgical repo rt and plan of care. Brief HPI Sussy Allred is a 69 y.o. female with a PMHx significant for Paralysis of left vocal fo ld, Malignant neoplasm of upper lobe of left lung, Dysphonia,Pharyngeal dysphagia Past Medical History: Diagnosis Date Anxiety COPD (chronic obstructive pulmonary disease) ([facility]) Dysphonia 12/04/2018 GERD (gastroesophageal reflux disease) Hypothyroidism Irritable bowel disease Non-small cell carcinoma of left lung (HCC) 2018 Adolfo Lomeli Reigert-- pT2a,pN2,M0, Stage IIIA, adenocarcinoma of the left lung status post left upper lobectomy December 04, 2018 Paralysis of left vocal fold 12/04/2018 Following CODY and AP window NSCCa of lung Pharyngeal dysphagia 12/04/2018 Radiation pneumonitis (HCC) 2018 treated with oral steroid Raynaud's disease She underwent a LEFT MEDIALIZATION THYROPLASTY on 10/09/2019 She is admitted to the OCU overnight for pain control, post operative monitoring and post o p teaching. S: - States that she feels her voice is still not back to normal, however better. - States that she is having pain inside and outside of neck, states the only thing she can eat without difficulty is lettuce and popsicles Assessment: Last 24 hour min/max Temp: 36.6 C (97.9 F) Temp Min: 36.4 C (97.5 F) Max: 37.1 C (98.8 F) Pulse: 72 Pulse Min: 70 Max: 93 Resp: 16 Resp Min: 12 Max: 24 BP: 130/71 BP Min: 96/85 Max: 130/71 SpO2: 100 % SpO2 Min: 94 % Max: 100 % Body mass index is 20.6 kg/m. Surgical Site: Left transverse neck incision with dermabond dressing intact. No evidence of bleeding, drainage, oozing, erythema, or hematoma. LISET sutured securely. Doty: none Drains: LISET left lateral neck. Draining light pink liquid. Antibiotics: Cefazolin 2 gm IV intraprocedure Pain Medication: Tylenol 1000mg tid scheduled, Oxycodone 5-15 mg q 4 hours prn, DVT Prophylactics: SCD boots, early ambulation. A/P: Medicate for pain as needed Home LISET care teaching To be discharged home once able to tolerate po, and pain controlled. Continuation of care per primary team(s) 10/09/2019 -10/10/2019 7am Overnight Events or Concerns: ~ stable overnight ~ Ambulating in halls, Gait steady Cassandra Penaloza DNP, [facility] Care Unit pager [phone] 10/10/2019 Bartolome Paredes PA-C - 10/09/2019 4:53 PM GARY saw her in the OCU with complaints of painful swelling ove r the left clavicle. She has bilateral, fluctuant swelling over the clavicles, more prominen t on the left. She had this condition preoperatively, although without pain. We will continu e to monitor for now. P Issa Hernandez in this encounter Plan of Treatment +--------+---------+ + + + | Date | Type | Specialty | Care Team | Description | +--------+---------+ + + + | 04/30/ | Office | Speech Therapy | Barbra Ramirez SLP | | 2019 | Visit | | [address] | | | | | | [place] | | | | | | [place] [address] | | | | | | [phone] | | | | | | | | +--------+---------+ + + + | 04/30/ | Office | Otolaryngology | Augustine Nolan | | 2019 | Visit | | MD Debbie [address] | | | | | | [address] | | | | | | [place] | | | | | | [address] | | | | | | [phone] | | | | | | | | +--------+---------+ + + + documented as of this encounter Procedures + +--------+ + + + | Procedure Name | Priori | Date/Time | Associated Diagnosis | Comments | | | ty | | | | + +--------+ + + + | THYROPLASTY | Routin | 10/09/2019 | | Results for this | | | e | 9:57 AM | | procedure are in the | | | | PST | | results section. | + +--------+ + + + | MEDIALIZATION | Electi | 10/09/2019 | Paralysis of left | | | THYROPLASTY | ve | 7:37 AM | vocal fold | | | | Surgic | PST | Malignant neoplasm | | | | al | | of upper lobe of | | | | | | left lung (HCC) | | | | | | Dysphonia | | | | | | Pharyngeal dysphagia | | + +--------+ + + + | INTRAPROCEDURE | Routin | 10/09/2019 | | Results for this | | IMAGING | e | 6:03 AM | | procedure are in the | | | | PST | | results section. | + +--------+ + + + | CARDIOLOGY | | 10/09/2019 | | Results for this | | | | 12:00 AM | | procedure are in the | | | | PST | | results section. | + +--------+ + + + documented in this encounter Results THYROPLASTY (10/09/2019 9:57 AM PST) + + + | Narrative | Performed At | + + + | Augustine Nolan MD 10/09/2019 9:59 AM PATIENT NAME: | | | Sussy Allred MR#: [id number] : 1950 Date: | | | 10/09/2019 Attending Surgeon: | | | Augustine Nolan M.D. Wood Borer(s): | | | Dunia Couch MD; Rianna Hsieh MD | | | Preoperative Diagnosis(es): left vocal fold paralysis, dysphonia, | | | pharyngeal dysphagia Postoperative Diagnosis(es): left vocal | | | fold paralysis, dysphonia, pharyngeal dysphagia Procedures | | | Performed: 1) Left medialization thyroplasty with | | | videofiberoptic guidance Anesthesia: Sedative local. | | | Estimated Blood Loss: Less than 10 cc. Fluids: IV | | | crystalloid. Antibiotics: Ancef Prosthesis: Solid | | | block silastic thyroplasty implant. Drains: A 10 [place]er round | | | drain. Complications: None Indications: Sussy Varghese | | | Chalino is a 69 y.o. female with a history of left upper lobe | | | resection. She has been noted to have a left vocal fold paralysis | | | on exam with persistent dysphonia and mild pharyngeal dysphagia. | | | The hoarseness has been quite stable for quite some time. We | | | discussed options of including observation, injection laryngoplasty | | | or medialization thyroplasty. After careful consideration, | | | Chalino would like to proceed with medialization thyroplasty. We | | | discussed the procedure thoroughly and informed consent was obtained | | | in the office. All questions were answered preoperatively. | | | Procedure: Ms. Allred was brought to the operating room and placed in | | | the supine position. Following induction of sedative anesthesia, | | | the patient was placed in the rhonda-lounge position, and her neck | | | was gently extended. Her nose was topicalized with 4% cocaine | | | solution. Flexible fiberoptic videolaryngoscopy was performed | | | noting left vocal fold paralysis. The opposite true vocal fold | | | appeared normal. A surgical pause was then performed. The scope | | | was suspended over her head. Her neck was palpated, and incision | | | was marked out over the inferior half of the thyroid cartilage. | | | This was injected with 0.25% bupivacaine, 0.5% lidocaine, 1:200,000 | | | epinephrine. A total of approximately 10 mL was used. Ms. Allred | | | was then prepped and draped in sterile fashion. Incision was made | | | through the skin using a #15 blade. Subcutaneous dissection was | | | undertaken using a Bovie cautery. The subplatysmal flaps were | | | elevated superiorly to the thyrohyoid space and inferiorly just over | | | the cricoid cartilage. Once completed, self retaining retractors | | | were used to hold back the skin flaps. The midline raphe was | | | identified and the midline. The strap muscles were | | | . Dissection was taken down inferiorly to just below the | | | cricoid and superiorly to the hyoid bone. The midline spine | | | of the thyroid cartilage was identified. The outer perichondrium | | | was incised using a #15 blade. Subperichondrial dissection was | | | undertaken on the left side to the lateral border of the thyroid | | | cartilage. The superior border and inferior border of the thyroid | | | cartilage were also carefully skeletonized. The tubercle was | | | identified, and dissection beyond the tubercle was undertaken to | | | determine the true inferior border of the thyroid cartilage. Once | | | completed, the spine was marked in the midline, and a navi was | | | placed 5 mm back from the midline. A 6 x13 mm window was created 5 | | | mm back from the spine and 3 mm from the true inferior border. This | | | was then excavated using a 3 mm cutting dwight on the [employer] | | | drill. Once completed, the inner perichondrium was carefully | | | incised using a Lytton blade. This was excised. Subperichondrial | | | dissection was made in the paraglottic space using the [place] | | | right-angle elevator and hockey stick elevators. Once completed, | | | we were able to medialize widely within the paraglottic space. | | | We then set about voice testing. Videolaryngoscopy confirmed | | | that optimal medialization of the true vocal fold was obtained | | | through medialization near the lower border of the window. | | | Optimal voice was obtained in the operating room with a 5-5.5 mm | | | depth of maximal depression in the posterior inferior aspect of the | | | window. Anterior displacement was 0 mm. The implant had a | | | scalloped profile. I then set about carving a solid block of | | | silastic with these dimensions. There were posterior, superior and | | | lateral flanges as well as a small anterior lip maintained to | | | maintain seating in the thyroid cartilage. Once completed, the | | | wound was carefully irrigated and the patient was asked to cough. | | | There was no evidence of leak. There was no blood visualized on | | | laryngoscopy. The voice was very slightly pressed. I deemed this | | | an excellent placement, and the wings of the implant were fully | | | deployed. The wound was again irrigated. The inner perichondrium | | | was approximated in the midline with 4-0 Vicryl suture. The strap | | | muscles were then reapproximated. A small 10 [place] channel drain | | | was placed to the lateral edge of the incision. The platysma was | | | then reapproximated using 3-0 Vicryl suture. Finally, the skin was | | | then closed using 5-0 Biosyn suture. Dermabond was then applied. | | | The patient was returned to Anesthesia for awakening and | | | transported to the recovery room. She tolerated the procedure | | | extremely well. Of note, I was present and scrubbed for the entire | | | procedure. Augustine Nolan M.D. Dermatology Nurse | | | Laryngology and Head & Neck Surgery | | + + + INTRAPROCEDURE IMAGING (10/09/2019 6:03 AM [facility]) + + | Specimen | + + | | + + + + + | Narrative | Performed At | + + + | See admission or procedure notes for details of any intraprocedure | [facility] | | images obtained. | RADIOLOGY | + + + + +---------+ + + | Performing | Address | City/State/Zipcode | Phone Number | | Organization | | | | + +---------+ + + | [facility] | | | | + +---------+ + + CARDIOLOGY (10/09/2019 12:00 AM PST) + + + | Narrative | Performed At | + + + | | | + + + documented in this encounter Visit Diagnoses + + | Diagnosis | + + | Paralysis of left vocal fold - Primary | + + | Dysphonia | + + documented in this encounter Administered Medications + +--------+ + +------+------+ | Medication Order | MAR | Action | Dose | Rate | Site | | | Action | Date | | | | + +--------+ + +------+------+ | acetaminophen (TYLENOL) tablet | Given | 10/10/19 | 1,000 mg | | | | 1,000 mg 1,000 mg, oral, THREE | | 20 8:13 | | | | | TIMES DAILY, First dose on Jenniffer | | AM PST | | | | | 10/09/19 at 1200, Until | | | | | | | Discontinued | | | | | | + +--------+ + +------+------+ +-------+ + +---+---+ | Given | 10/09/19 | 1,000 mg | | | | | 20 11:34 | | | | | | PM PST | | | | +-------+ + +---+---+ | Given | 10/09/19 | 1,000 mg | | | | | 20 4:07 | | | | | | PM PST | | | | +-------+ + +---+---+ + +---+ | | | + +---+ | acetaminophen (TYLENOL) tablet | | | 1 dose, Starting Jenniffer 10/09/19 at | | | 1018, Until Jenniffer 10/09/19 at 1024 | | + +---+ | | | + +---+ + +-------+ +--------+---+---+ | acyclovir (ZOVIRAX) tablet 400 | Given | 10/10/19 | 400 mg | | | | mg 400 mg, oral, DAILY, First | | 20 8:14 | | | | | dose on [facility]iffer 10/09/19 at 1430, | | AM PST | | | | | Until Discontinued | | | | | | + +-------+ +--------+---+---+ +-------+ +--------+---+---+ | Given | 10/09/19 | 400 mg | | | | | 20 2:16 | | | | | | PM PST | | | | +-------+ +--------+---+---+ +---+---+ | | | +---+---+ + +-------+ +---------+---+---+ | ALPRAZolam (XANAX) tablet 0.25 | Given | 10/09/19 | 0.25 mg | | | | mg 0.25 mg, oral, AT BEDTIME | | 20 11:24 | | | | | NEEDED, Starting Sun10/09/19 at | | PM PST | | | | | 1019, Until Sun10/10/19 at 1951, | | | | | | | anxiety | | | | | | + +-------+ +---------+---+---+ +---+---+ | | | +---+---+ + +-------+ +--------+---+---+ | buPROPion XL (WELLBUTRIN-XL) | Given | 10/10/19 | 300 mg | | | | tablet 300 mg 300 mg, oral, | | 20 8:14 | | | | | DAILY, First dose on Sun10/10/19 | | AM PST | | | | | at 0900, Until Discontinued | | | | | | + +-------+ +--------+---+---+ +---+---+ | | | +---+---+ + +-------+ +-------+---+---+ | cilostazoL (PLETAL) tablet tab | Given | 10/10/19 | 50 mg | | | | 50 mg 50 mg, oral, TWICE DAILY, | | 20 8:14 | | | | | First dose on Sun10/09/19 at | | AM PST | | | | | 2100, Until Discontinued | | | | | | + +-------+ +-------+---+---+ +-------+ +-------+---+---+ | Given | 10/09/19 | 50 mg | | | | | 20 11:24 | | | | | | PM PST | | | | +-------+ +-------+---+---+ +---+---+ | | | +---+---+ + +-------+ +------+---+---+ | estradioL (ESTRACE) tablet 2 mg | Given | 10/10/19 | 2 mg | | | | 2 mg, oral, DAILY, First dose | | 20 8:15 | | | | | on [facility]iffer 10/09/19 at 1300, Until | | AM PST | | | | | Discontinued | | | | | | + +-------+ +------+---+---+ +-------+ +------+---+---+ | Given | 10/09/19 | 2 mg | | | | | 20 2:16 | | | | | | PM PST | | | | +-------+ +------+---+---+ +---+---+ | | | +---+---+ + +-------+ +-------+---+---+ | famotidine (PEPCID) tablet 20 | Given | 10/10/19 | 20 mg | | | | mg 20 mg, oral, TWICE DAILY, | | 20 8:14 | | | | | First dose on [facility] 10/09/19 at | | AM PST | | | | | 2100, Until Discontinued | | | | | | + +-------+ +-------+---+---+ +-------+ +-------+---+---+ | Given | 10/09/19 | 20 mg | | | | | 20 11:25 | | | | | | PM PST | | | | +-------+ +-------+---+---+ +---+---+ | | | +---+---+ + +-------+ +------+---+---+ | oxyCODONE (immediate release) | Given | 10/09/19 | 5 mg | | | | (ROXICODONE) tablet 5 mg 5 mg, | | 20 11:05 | | | | | oral, POSTPROCEDURE PRN, 2 doses, | | AM PST | | | | | Starting Jenniffer 10/09/19 at 0753, | | | | | | | Until [facility] 10/09/19 at 1105, | | | | | | | moderate pain while in Phase 1 | | | | | | | recovery. | | | | | | + +-------+ +------+---+---+ +-------+ +------+---+---+ | Given | 10/09/19 | 5 mg | | | | | 20 10:23 | | | | | | AM PST | | | | +-------+ +------+---+---+ | Given | 10/09/19 | 5 mg | | | | | 20 10:20 | | | | | | AM PST | | | | +-------+ +------+---+---+ +---+---+ | | | +---+---+ + +-------+ +------+---+---+ | oxyCODONE (immediate release) | Given | 10/09/19 | 5 mg | | | | (ROXICODONE) tablet 5 mg 5 mg, | | 20 11:37 | | | | | oral, EVERY 4 HOURS NEEDED, | | AM PST | | | | | Starting Jenniffer 10/09/19 at 1016, | | | | | | | Until [facility] 10/09/19 at 1239, | | | | | | | moderate pain, unresponsive to | | | | | | | non-opioid medication | | | | | | + +-------+ +------+---+---+ +---+---+ | | | +---+---+ + +-------+ +-------+---+---+ | oxyCODONE (immediate release) | Given | 10/10/19 | 15 mg | | | | (ROXICODONE) tablet 5-15 mg 5-15 | | 20 11:26 | | | | | mg, oral, EVERY 4 HOURS | | AM PST | | | | | NEEDED, Starting Jenniffer 10/09/19 at | | | | | | | 1239, Until Sun10/10/19 at 1951, | | | | | | | moderate pain, unresponsive to | | | | | | | non-opioid medication | | | | | | + +-------+ +-------+---+---+ +-------+ +-------+---+---+ | Given | 10/10/19 | 15 mg | | | | | 20 7:22 | | | | | | AM PST | | | | +-------+ +-------+---+---+ | Given | 10/09/19 | 15 mg | | | | | 20 11:24 | | | | | | PM PST | | | | +-------+ +-------+---+---+ + +---+ | | | + +---+ | oxyCODONE (immediate release) | | | (ROXICODONE) tablet 1 dose, | | | Starting [facility]iffer 10/09/19 at 1103, | | | Until [facility] 10/09/19 at 1105 | | + +---+ | | | + +---+ + +-------+ + +---+---+ | senna-docusate (SENOKOT S) | Given | 10/10/19 | 1 tablet | | | | 8.6-50 mg 1 tablet 1 tablet, | | 20 8:14 | | | | | oral, TWICE DAILY, First dose on | | AM PST | | | | | [facility] 10/09/19 at 2100, Until | | | | | | | Discontinued | | | | | | + +-------+ + +---+---+ +-------+ + +---+---+ | Given | 10/09/19 | 1 tablet | | | | | 20 11:24 | | | | | | PM PST | | | | +-------+ + +---+---+ +---+---+ | | | +---+---+ documented in this encounter
--- OUTSIDE RECORDS SUMMARY | ~2020-03-30 | XMS | Encounter Summary ---
Demographics + + + | Address | [address] | | | [place] [address] | + + + | Home Phone | | + + + | Preferred Language | Unknown | + + + | Marital Status | Single | + + + | Mu-Ism Affiliation | Unknown | + + + | Race | Unknown | + + + | Ethnic Group | Unknown | + + + Author + + + | Author | [facility] | | | and [place] | + + + | Organization | [facility] | | | and [place]ob[place] [...] Team Providers + +------+ + | Care Bevel Gear Generator Operator Name | Role | Phone | + +------+ + PCP | Unavailable | + +------+ + Encounter Details +--------+ + + + + | Date | Type | Department | Care Team | Description | +--------+ + + + + | 03/12/ | Hospital | [facility] | Alejandro Lacey FNP | | | 2013 | Encounter | [facility] [address] | [address] | | | | | [place] | [address] [place], | | | | | [place] | [place] [address] | | | | | [address] | [phone] | | | | | [phone] | | | +--------+ + + + [...] Oncology | Treva Ortega | | | 2020 | | | DEISY [address] | | | | | | [address] | | | | | | [place] [address] | | | | | | [phone] | | | | | | | | +--------+ + + + + documented as of this encounter Visit Diagnoses Not on filedocumented in this encounter"
--- OUTSIDE RECORDS SUMMARY | ~2020-03-30 | XMS | Encounter Summary ---
Demographics + + + | Address | [address] | | | [place] [address] | + + + | Home Phone | | + + + | Preferred Language | Unknown | + + + | Marital Status | Single | + + + | Methodist Affiliation | Unknown | + + + | Race | Unknown | + + + | Ethnic Group | Unknown | + + + Author + + + | Author | [facility] | | | and Jakobana | + + + | Organization | [facility] | | | and Jakobana [...] Team Providers + +------+ + | Care Nature Photographer Name | Role | Phone | + [...] | [facility] | MD [address] | | | | | IMAGING [address] | [address] | | | | | [address] [place] | [place] [address] | | | | | [place] [address] | | | | | | [phone] | | | +--------+ + + + [...] | | | | | | [place] [address] | | | | | | [phone] | | | | | | | | +--------+ + + + + documented as of this encounter Procedures + +--------+ + + + | Procedure Name | Priori | Date/Time | Associated Diagnosis | Comments | | | ty | | | | + +--------+ + + + | XR CHEST 2 VIEWS | Routin | 12/27/2018 | | Results for this | | | e | 11:40 AM | | procedure are in the | | | | PDT | | results section. | + +--------+ + + + documented in this encounter Results XR Chest 2 Vws (12/27/2018 11:40 AM PDT) + + | Specimen | + [...]
--- OUTSIDE RECORDS SUMMARY | ~2020-03-30 | XMS | Encounter Summary ---
Demographics + + + | Address | [address] | | | [place] [address] | + + + | Home Phone | | + + + | Preferred Language | Unknown | + + + | Marital Status | Single | + + + | Confucianist Affiliation | Unknown | + + + | Race | Unknown | + + + | Ethnic Group | Unknown | + + + Author + + + | Author | [facility] | | | and Jakobana | + + + | Organization | [facility] | | | and Jakobana [...] Team Providers + +------+ + | Care Cartridge Assembler Name | Role | Phone | + +------+ + | Lauryn Stuart PA-C | PCP | | + +------+ + Reason for Referral Evaluate & Treat (Routine) +--------+ + + + + + | Status | Reason | Specialty | Diagnoses / | Referred By | Referred To | | | | | Procedures | Contact | Contact | +--------+ + + + + + | Closed | Specialty | Radiation | Diagnoses | | [place], | | | Services | Oncology | Malignant | Adolfo, | Fiona Parsons MD | | | Required | | neoplasm of | Boubacar Daniels, | [address] | | | | | upper lobe | [address] | | | | | of left lung | [address] | [place], | | | | | ([facility]) | [address] | [place] [address] | | | | | | [place], | Phone: | | | | | | [place] [address] | [phone] | | | | | | Phone: | Fax: | | | | | | [phone] | [phone] | | | | | | Fax: | | | | | | | [phone] | | +--------+ + + + + + Reason for Visit + + + | Reason | Comments | + + + | Advice Only | | + + + Evaluate & Treat (Routine) +--------+ + + + + + | Status | Reason | Specialty | Diagnoses / | Referred By | Referred To | | | | | Procedures | Contact | Contact | +--------+ + + + + + | Closed | Specialty | Oncology | Diagnoses | [place], | | | | Services | | Lung CA | Gi aGlvez MD | Adolfo, | | | Required | | Procedures | [address] | Boubacar Daniels MD | | | | | AR OFFICE | [address] | [address] | | | | | OUTPATIENT | [place], [place] | [facility] | | | | | VISIT 25 | [address] | [address] | | | | | MINUTES | Phone: | [place], [place] | | | | | | [phone] | [address] | | | | | | Fax: | Phone: | | | | | | [phone] | [phone] | | | | | | | Fax: | | | | | | | [phone] | +--------+ + + + + + Encounter Details +--------+ + + + + | Date | Type | Department | Care Team | Description | +--------+ + + + + | 01/30/ | Hospital | [facility] | Adolfo, | Malignant neoplasm | | 2019 | Encounter | [facility] | Boubacar Daniels MD [address] | of upper lobe of | | | | [facility] [address] [facility] [address] | left lung (HCC) | | | | [address] | [address] [place] | (Primary Dx) | | | | [place] [address] | [address] | | | | | [phone] | | | +--------+ + + + + Social History + +-------+ +--------+ + | Tobacco Use | Types | Packs/Day | Years | Date | | | | | Used | | + +-------+ +--------+ + | Former Smoker | | | | 08/20/2004 - | | | | | | 08/20/2011 | + +-------+ +--------+ + + +---+---+---+ | Smokeless Tobacco: | | | | | Never Used | | | | + +---+---+---+ + + +---------+ + | Alcohol Use | Drinks/Week | oz/Week | Comments | + + +---------+ + | Yes | | | | + + +---------+ + + [...] + + + | Blood Pressure | 140/81 | 01/30/2019 2:26 PM | | | | | PDT | | + + + + + | Pulse | 82 | 01/30/2019 2:26 PM | | | | | PDT | | + + + + + | Temperature | 35.8 C (96.5 F) | 01/30/2019 2:26 PM | | | | | PDT | | + + + + + | Respiratory Rate | 16 | 01/30/2019 2:26 PM | | | | | PDT | | + + + + + | Oxygen Saturation | 100% | 01/30/2019 2:26 PM | | | | | PDT | | + + + + + | Inhaled Oxygen | - | - | | | Concentration | | | | + + + + + | Weight | 53.9 kg (118 lb 13.3 | 01/30/2019 2:26 PM | | | | oz) | PDT | | + + + + + | Height | 165 cm (5' 4.96") | 01/30/2019 2:26 PM | | | | | PDT | | + + + + + | Body Mass Index | 19.8 | 01/30/2019 2:26 PM | | | | | PDT | [...] +---------+ + + | ALPRAZolam (XANAX) | Take 0.25 mg by | | 0 | | | | 0.25 mg tablet | mouth nightly as | | | | 9 | | | needed for Anxiety | | | | | | | (reports taking 2 | | | | | | | for sleep). | | | | | + + [...] | 0 | 08/17/20 | | | (VIBRAMYCIN) 100 mg | 2 times daily. For | | | 16 | 9 | | capsule | skin infection | | | | | + [...] one tablet | 30 | 4 | 01/31/20 | | | 1 mg tablet | orally every 4 hours | tablet | | 19 | 9 | | | as needed for | [...] +---------+ + + | oxyCODONE | Take 5 mg by mouth | | 0 | 12/28/19 | | | (ROXICODONE) 5 mg | every 4 hours as | | | 19 | 9 | | tablet | needed. | | | | | + [...] + + documented as of this encounter Consult Notes Boubacar Mata MD - 01/30/2019 2:50 PM PDTFormatting of this note might be differe nt from the original. Hematology/Oncology Progress Note [place], [place] Pt. Name/Age/: Sussy Allred 68 y.o. 1950 Med. Record Number: [id number] Date of admission: 01/30/2019 The patient's primary care provider is Lauryn Stuart PA-C. Identifying Statement: Sussy Allred is a 68 y.o. female from [address] [place] [address] with Stage IIIA poorly differentiated adenocarcinoma of the lung, status post left upper lobectomy December 04, 2018. The patient chart and medications were reviewed in detail and the patient was seen and exam ined. History of Present Illnesses, their Current Assessments and Plans: Problem List Abnormal weight gain Acute post-operative pain Overview Last Assessment & Plan: Epidural not placed pre-op because of staged approach to procedure. Pt received heparin dur ing procedure because of PA involvement. APS placed epidural 4 hrs after heparin. - TEA per APS w bupivicaine/HM (changed from fentanyl) - tylenol PRN - Lidocaine patches Acute respiratory distress syndrome (ARDS) Annual physical exam Aspiration pneumonitis Overview Last Assessment & Plan: Increasing oxygen requirements overnight from 12/05 to 12/06 with worsening ground glass opac ities in right lung with concern for aspiration in setting of dysphagia. - Strict NPO, consider re consulting SMALL PARTS ASSEMBLER today pending course and ENT recs - monitor for fevers and worsening respiratory status - pulmonary toilet, IS - wean O2 as able Backache Carpal tunnel syndrome Cervicalgia Chronic pain Diarrhea Dysphagia Overview Last Assessment & Plan: S/p sacrifice of L recurrant laryngeal nerve with node resection now w concern for aspirati on event. PEG placed on 12/07 - Strict NPO - ENT performed SAUSAGE LINKER scope with evidence of left vocal cord dysfunction Per ENT: Injection laryngoplasty can be done in our clinic with Dr. Kaplan next week as an i npatient if transportation is arranged. If patient is discharged at an earlier date, this ca n also be done during an outpatient visit - Restart TF's now that lytes are optimized to goal of 55/hr GERD (gastroesophageal reflux disease) Overview Last Assessment & Plan: - omeprazole daily Hand pain, right Headache HTN (hypertension) Overview Last Assessment & Plan: - Continue home triamterene/HCTZ Hypophosphatemia Overview Last Assessment & Plan: Profound hypophosphatemia after TF started concerning for refeeding syndrome - Ok to restart feeds - Check lytes q12h Hypothyroidism Overview Last Assessment & Plan: - levothyroxine 50 mcg PFT daily IBS (irritable bowel syndrome) Leukocytosis Overview Last Assessment & Plan: Suspect secondary to aspiration pneumonitis. Improving - Consider antibiotics if patient develops fever Lung cancer Overview ACTIVE DIAGNOSIS: pT2a,pN2,M0, Stage IIIA, adenocarcinoma of the left lung status post le ft upper lobectomy December 04, 2018. 1. Current every day smoker at the time of diagnosis. 2. Presentation with left sided neck swelling and cougn on October 09, 2018. Chest X-ray d emonstrated a 35 mm x 18 mm irregular mass in the left upper lobe. 3. CT chest with contrast on October 11, 2018 demonstrated 24 x 16 x 16 mm mass in the lef t upper lobe and a 17 x 10 x 10 mm mass in the right upper lobe. A 21 x 21 x 18 mm lymph nod e in the AP window and a 15 mm left hilar lymph node. 4. PET/CT scan October 23, 2018 demonstrated that the left upper lobe mass was FDG avid with S UV 5.96, however the right upper lobe mass was not, SUV 1.46. The AP window mass was FDG-lily d with SUV 13.58 and the left hilar mass was FDG-avid at 2.76. In addition prevascular adeno joey was identified with SUV of 4.36. 5. MRI of brain November 26, 2018; no evidence for metastatic disease. 6. PFT November 26, 2018; FEV1 = 2.33 L, DLCO 92%. 7. December 04, 2018: Flexible bronchoscopy, endobronchial ultrasound needle aspiration biopsy level 7 and 4 L, cervical mediastinoscopy, biopsy of level 7 and 4R lymph nodes, left thora coscopy, left muscle-sparing thoracotomy, left upper lobectomy with sleeve resection of airw ay and pulmonary artery with pulmonary artery plasty with pericardial patch, mediastinal lym ph node dissections level 5, 6, 7, 9, L, 4L and hilar lymph nodes ([facility], [facility]). Patholog ical specimen # [id number] was notable for a poorly differentiated adenocarcinoma, 3.2 cm w ith lymphovascular invasion (pT2a), and 13/31 lymph nodes positive for regionally metastatic disease (pN2). Post-operative course complicated by vocal cord paralysis, necessitating tem porary placement of a G-tube. Current Assessment & Plan Sussy Allred is referred by Gi Barber Md [address] [place] [address] for evaluation and management of Stage IIIA non-small cell lung cancer, adenocarcinoma, s tatus post R0 resection by Dr. Manoj Kumar at [facility] on December 04, 2018. I met with Sussy Allred on 01/30/2019 who came to the [facility] alone for evaluation as part of a multidisciplinary care team with Dr. Fiona garcia in radiation oncology. Review of systems is notable for fatugue, anorexia, weight loss, dysphagia, dyspnea and pos t thoracotomy pain. Clinical exam is notable for the fact that her gastrostomy feeding tube has been removed. Assessment: Stage IIIA non-small cell lung cancer, adenocarcinoma, status post R0 resection . Plan; Extended, 60 minute office encounter with Katharina, discussing the risks, benefits and al ternatives to adjuvant chemotherapy with four cycles of carboplatin and pemetrexed. We also discussed the side effects if carboplatin/pemetrexed with emphasis upon common side effects such as nausea, vomiting and peripheral neuropathy as well as the less common but serious ri sks of neutropenic fever. We also discussed the option of no treatment in an unbiased and no n-promotional manner. After a thorough discussion of all of her options, Katharina has consented to undergo four cycles of adjuvant carboplatin and pemetrexed beginning on February 26, 2019 as she is scheduled to return to [facility] for surgery to correct her vocal cord paralysis. She will meet separately with Dr. Anne in radiation oncology for a discussion of adjuvant externa l beam radiation therapy, which can be given concurrently. Pain medication agreement signed Overview 12/23/2013 UDS obtained. Next Ossian due 08/25/2014 Postoperative anemia due to acute blood loss Overview Last Assessment & Plan: - monitor chest tube output - CBC daily Rib pain on left side Vocal cord paralysis Overview Last Assessment & Plan: Due to resection of L recurrant laryngeal nerve during surgery because of location to lymph node. ENT evaluated on 12/05 - ENT will re-evaluate airway early next week. "- If voice, breathing, or swallowing are worse, will plan for injection medialization thyr oplasty of the left true vocal fold, otherwise we will continue to observe - Injection laryngoplasty can be done in our clinic with Dr. Kaplan next week as an inpatient if transportation is arranged - If patient is discharged at an earlier date, this can also be done during an outpatient visit" -Fu ENT recs this week -Per Thoracic fellow ok to rechallenge swallow if ok from ICU's perspective Review of Systems: Constitutional: Reports low energy levels. Reports poor appetite, recent weight loss. Taste changes. Denies fatigue. Denies high fevers, shaking chills, anorexia, nausea, vomiting, we ight loss, or night sweats. Appetite without changes. Ear, Nose, Mouth, Throat: Reports dysphagia since surgery. Reports voice "rasp, maybe deepe r or more hoarse." Denies odynophagia, or tinnitus. Cardiovascular: Reports WILLIS, SOB, and poor activity tolerance. Reports chest pain, attribut es to possibly being surgical pain. Denies palpitations or orthopnea. Respiratory: Reports ongoing dry cough. Denies hemoptysis, or sputum production. Gastrointestinal: Denies abdominal pain, constipation, diarrhea, melena, or bright red bloo d per rectum. Genitourinary: Denies hematuria or dysuria. Musculoskeletal: Reports ongoing neck pain. Neurologic: Reports headaches, "the past week now." Reports visual changes since surgery, L eye blurring/"absent areas." Denies numbness/tingling of the extremities. Endocrine: Denies peripheral edema or heat/cold intolerance. Hematologic: Denies spontaneous bruising or bleeding. Integumentary: Denies rash, wounds or other skin concerns. Pain: Reports surgical site pain, rates at 6/10. Reports ongoing neck pain, taking oxycodon e QID w/ relief per pt Note: here for consultation w/ Dr Mata My chart: Declined Feminine Hx P: 1 A: 0 M: 0 Menarche: 14yo 1st preyo Breastfeed: no control: hx oophorectomy, possible hysterectomy in 1973 HRT: takes estrogen daily PAP: yes, ~2016 MMG: yes, ~November, Review of systems as above otherwise negative Scheduled Medications: Current Outpatient Medications Medication Sig Dispense Refill acetaminophen (TYLENOL) 325 mg tablet Take 325-650 mg by mouth every 6 hours as needed. acyclovir (ZOVIRAX) 400 MG tablet Take 400 mg by mouth Daily. ALPRAZolam (XANAX) 0.5 mg tablet 0.5 mg nightly as needed (taking every night.). 2 Amino Acids (AMINO ACID PO) Take 1 Scoop by mouth Daily. cilostazol (PLETAL) 50 mg tablet Take 50 mg by mouth Daily. cyanocobalamin (VITAMIN B-12) 1000 MCG tablet Take 500 mcg by mouth Daily. dexamethasone (DECADRON) 4 mg tablet Take one tablet twice a day on the day before chem otherapy and for two days after chemotherapy. 40 tablet 0 doxycycline (VIBRAMYCIN) 100 mg capsule Take 100 mg by mouth 2 times daily. For skin in fection estradiol (ESTRACE) 2 MG tablet Take 2 mg by mouth Daily. folic acid 1 mg tablet Take 1 tablet by mouth Daily for 100 days. 100 tablet 0 lansoprazole (PREVACID) [address] capsule Take 30 mg by mouth Daily. levothyroxine (SYNTHROID) 50 mcg tablet Take 50 mcg by mouth Daily. LORazepam (ATIVAN) 1 mg tablet Take one tablet orally every 4 hours as needed for nause a, anxiety or sleeplessness 30 tablet 4 Misc Natural Products (HIMALAYAN GOJI PO) Take 2 oz by mouth Daily. non-formulary medication Take 3 oz by mouth Daily. Nopalea supplement ondansetron (ZOFRAN ODT) 8 mg disintegrating tablet One tablet twice a day for two days after chemotherapy to block nausea 40 tablet 1 oxyCODONE (ROXICODONE) 5 mg tablet Take 5 mg by mouth every 4 hours as needed. triamterene-hydrochlorothiazide (MAXZIDE-25) 37.5-25 mg per tablet Take 0.5 tablets by mouth Daily. No current facility-administered medications for this encounter. 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 Raynaud phenomenon Reaction to chronic stress Rosacea Past Surgical History: Procedure Laterality Date APPENDECTOMY GASTROSTOMY TUBE PLACEMENT GASTROSTOMY TUBE PLACEMENT HYSTERECTOMY FULL LOBECTOMY Left L upper lobectomy w/ mediastinal lymph node dissection OVARY REMOVAL TONSILLECTOMY only one was removed Social History Socioeconomic History Marital status: Single Spouse name: Not on file Number of children: Not on file Years of education: Not on file Highest education level: Not on file Social Needs Financial resource strain: Not on file Food insecurity - worry: Not on file Food insecurity - inability: Not on file Transportation needs - medical: Not on file Transportation needs - non-medical: Not on file Occupational History Not on file Tobacco Use Smoking status: Former Smoker Packs/day: 0.50 Years: 7.00 Pack years: 3.50 Start date: 08/20/2004 Last attempt to quit: 08/20/2011 Years since quittin.4 Smokeless tobacco: Never Used Substance and Sexual Activity Alcohol use: Yes Alcohol/week: 4.2 oz Types: 7 Glasses of wine per week Drug use: Never Sexual activity: Not on file Other Topics Concern Not on file Social History Narrative Not on file Patient Active Problem List Diagnosis Abnormal weight gain Acute post-operative pain Acute respiratory distress syndrome (ARDS) Annual physical exam Aspiration pneumonitis Carpal tunnel syndrome Chronic pain Diarrhea Dysphagia GERD (gastroesophageal reflux disease) Hand pain, right Backache Cervicalgia Headache Hypophosphatemia Hypothyroidism IBS (irritable bowel syndrome) Leukocytosis Lung cancer Pain medication agreement signed Postoperative anemia due to acute blood loss Rib pain on left side Vocal cord paralysis HTN (hypertension) Family History Problem Relation Age of Onset Other (see comment) Father pancreatic disease, unsure if it was cancer Macular degen Mother Objectives: Temp: 35.8 C (96.5 F) BP: 140/81 Pulse: 82 Resp: 16 SpO2: 100 % on Min/Max Temp past 24 hours:No data recorded No intake or output data in the 24 hours ending 02/08/19 1838 Wt. Admission: Weight: 53.9 kg (118 lb 13.3 oz) Wt. Current: Weight: 53.9 kg (118 lb 13 .3 oz) Wt Readings from Last 3 Encounters: 02/05/19 54.8 kg (120 lb 13 oz) 02/04/19 53.9 kg (118 lb 13.3 oz) 01/30/19 53.9 kg (118 lb 13.3 oz) Physical Exam: General: The patient is alert and oriented. No acute distress. Eyes: Conjunctiva clear. Sclera anicteric. ENMT: Oropharynx fee of lesions, mucous membranes moist. Cardiovascular: Regular rate and rhythm, no rubs, gallops, or murmurs. Lungs: Clear to auscultation and percussion. Chest: Left lateral thoracotomy scar is well-healed. Abdomen: Gastrostomy feeding tube has been removed. Soft, nontender, no hepatospenomegaly. No palpable masses. Bowel sounds present. Extremities: Nontender, no erythema, no edema. Skin: No rashes, bruising, or petechiae. Lymph: No palpable nodes in the neck, supraclavicular fossa, axilla or groin. Neurological: Face symmetric, voice is hoarse. Station and gait are without deficit. Muscular/Skeletal: No acute bony tenderness. No evidence of sarcopenia. Psychiatric: Normal mood and affect. ECOG Performance Status [x] 0 [] 1 [] 2 []3 [] 4 ECOG PERFORMANCE STATUS* Grade ECOG Karnofsky 0 Fully active, able to carry on all pre-disease performance without restriction. 90 - 100 1 Restricted in physically strenuous activity but ambulatory and able to carry out work of a light or sedentary nature, e.g., light house work, office work 70 - 80 2 Ambulatory and capable of all selfcare but unable to carry out any work activ ities. Up and about more than 50% of waking hours 50 - 60 3 Capable of only limited selfcare, confined to bed or chair more than 50% of w aking hours 30 - 40 4 Completely disabled. Cannot carry on any selfcare. Totally confined to bed or chair 10 - 20 * As published in Am. J. Clin. Oncol.: Niranjan Lopez., Beronica Walters., Renaldo Parish., Nico Avery, Turner TBritni., Coral EMarvaT., Georgette, P .P.: Toxicity And Response Criteria Of The Eastern Cooperative Oncology Group. Am J Clin Onc ol 5:649-655, 1982. The ECOG Performance Status is in the public domain therefore available for public use. To duplicate the scale, please cite the reference above and credit the Eastern Cooperative Onco logy Group, Boubacar Saeed M.D., Group Chair Diagnostic studies: Available data and images were reviewed personally. See reports. Significant results and findings are addressed here or in the Assessment and Plan. Pharmacovigilance: Palliative Care: Procedure: Katharina was scheduled for her pre-treatment vitamin B12 injection at the [facility] in [place], [place]. Boubacar Mata MD Portions of this chart may have been created with [employer] voice recognition software. Occasi onal wrong-word or sound-alike substitutions may have occurred due to the inherent tripathi itations of voice recognition software. Please read the chart carefully and recognize, using context, where these substitutions have occurred. documented in this encounter Miscellaneous Notes Assessment & Plan Note - Boubacar Mata MD - 02/08/2019 5:54 PM PDTAssociated Prob kati(s): Lung cancer (HCC)Sussy Allred is referred by Gi Barber Md [address] [place] [address] for evaluation and management of Stage IIIA non-small cell lung can cer, adenocarcinoma, status post R0 resection by Dr. Manoj Kumar at [facility] on December 04, 2018 . I met with Sussy Allred on 01/30/2019 who came to the [facility] alone for evaluation as part of a multidisciplinary care team with Dr. Fiona garcia in radiation oncology. Review of systems is notable for fatugue, anorexia, weight loss, dysphagia, dyspnea and pos t thoracotomy pain. Clinical exam is notable for the fact that her gastrostomy feeding tube has been removed. Assessment: Stage IIIA non-small cell lung cancer, adenocarcinoma, status post R0 resection . Plan; Extended, 60 minute office encounter with Katharina, discussing the risks, benefits and al ternatives to adjuvant chemotherapy with four cycles of carboplatin and pemetrexed. We also discussed the side effects if carboplatin/pemetrexed with emphasis upon common side effects such as nausea, vomiting and peripheral neuropathy as well as the less common but serious ri sks of neutropenic fever. We also discussed the option of no treatment in an unbiased and no n-promotional manner. After a thorough discussion of all of her options, Katharina has consented to undergo four cycles of adjuvant carboplatin and pemetrexed beginning on February 26, 2019 as she is scheduled to return to [facility] for surgery to correct her vocal cord paralysis. She will meet separately with Dr. Anne in radiation oncology for a discussion of adjuvant externa l beam radiation therapy, which can be given concurrently. documented in t his encounter Plan of Treatment +--------+ + + + + | Date | Type | Specialty | Care Team | Description | +--------+ + + + + | 04/20/ | Appointment | Radiation Oncology | Treva Ortega | | | 2019 | | | DEISY Hernandez [address] | | | | | | [address] | | | | | | [place] [address] | | | | | | [phone] | | | | | | | | +--------+ + + + + + + +--------+ + + | Name | Type | Priori | Associated Diagnoses | Order Schedule | | | | ty | | | + + +--------+ + + | * [facility] | Outpatient | Routin | Malignant neoplasm | Ordered: 01/30/2019 | | Oncology - AMB | Referral | e | of upper lobe of | | | Referral | | | left lung (HCC) | | + + +--------+ + + documented as of this encounter Visit Diagnoses + + | Diagnosis | + + | Malignant neoplasm of upper lobe of left lung (HCC) - Primary | + + documented in this encounter
--- OUTSIDE RECORDS SUMMARY | ~2020-03-30 | XMS | Encounter Summary ---
Demographics + + + | Address | [address] | | | [place] [address] | + + + | Home Phone | | + + + | Preferred Language | Unknown | + + + | Marital Status | Single | + + + | Holiness Affiliation | NRP | + + + | Race | White | + + + | Ethnic Group | Not or | + + + Author + + + | Author | [facility] | + + + | Organization | [facility] | + + + | Address | Unknown | + + + | Phone | Unavailable | + + + Support + + +---------+ + | Name | Relationship | Address | Phone | + + +---------+ + | Laura Allred | ECON | Unknown | | + + +---------+ + Care Team Providers + +------+ + | Care Business Machines Teacher Name | Role | Phone | + +------+ + | Lauryn Stuart | PCP | | + +------+ + Reason for Referral Consultation (Routine) +--------+--------+ + + + + | Status | Reason | Specialty | Diagnoses / | Referred By | Referred To | | | | | Procedures | Contact | Contact | +--------+--------+ + + + + | Closed | | Thoracic | Diagnoses | Bony, | Stacy, | | | | Surgery | Lung nodule | MD Rell | MD Manoj | | | | | Procedures | [address] | [address] | | | | | CONSULT TO | [facility] | [facility] | | | | | SURGERY - | Rd | [place], | | | | | CARDIOTHORAC | [place], [place] | [place] | | | | | [place] | [address] | [address] | | | | | | Phone: | Phone: | | | | | | [phone] | [phone] | | | | | | Fax: | Fax: | | | | | | [phone] | [phone] | +--------+--------+ + + + + Consultation (Routine) +--------+--------+ + + + + | Status | Reason | Specialty | Diagnoses / | Referred By | Referred To | | | | | Procedures | Contact | Contact | +--------+--------+ + + + + | Closed | | Pulmonary | Diagnoses | Bony | Pul Faculty | | | | Disease | Lung nodule | MD Rell | 3rd Ppv | | | | | Procedures | [address] | [address] | | | | | CONSULT TO | [address] | [address] | | | | | [address] | Rd | Physician's | | | | | | [place] | [place] | | | | | | [address] | 3rd Floor | | | | | | Phone: | [place] | | | | | | [phone] | [address] | | | | | | Fax: | Phone: | | | | | | [phone] | [phone] | | | | | | | Fax: | | | | | | | [phone] | +--------+--------+ + + + + Encounter Details +--------+ + + + + | Date | Type | Department | Care Team | Description | +--------+ + + + + | 10/29/ | Parachute Cushion Installer | Pulmonary & | Rell Lovett, | Lung nodule (Primary | | 2019 | | Critical Care | [address] | Dx) | | | | Medicine at | [facility] | | | | | Physicians [place] | [place], [place] | | | | | [address] | [address] | | | | | Loop Physician's | [phone] | | | | | [place], [address] [place] [address] | | | | | | [place], [place] | | | | | | [address] | | | | | | [phone] | | | +--------+ + + + [...] Therapy | Barbra Ramirez SLP | | | 2019 | Visit | | [address] | | | | | | [place], | | | | | | [place] [address] | | | | | | [phone] | | | | | | | | +--------+---------+ + + + | 04/30/ | Office | Otolaryngology | Augustine Nolan | | | 2020 | Visit | | MD Debbie [address] [facility] | | | | | | [address] | | | | | | [place], [place] | | | | | | [address] | | | | | | [phone] | | | | | | | | +--------+---------+ + + + +------+ +--------+ + + | Name | Type | Priori | Associated Diagnoses | Order Schedule | | | | ty | | | +------+ +--------+ + + | EBUS | Procedures | Routin | Lung nodule | Expected: 11/04/2018 | | | | e | | | +------+ +--------+ + + documented as of this encounter Visit Diagnoses + + | Diagnosis | + + | Lung nodule - Primary Solitary pulmonary nodule | + + documented in this encounter"
--- OUTSIDE RECORDS SUMMARY | ~2020-03-30 | XMS | Encounter Summary ---
Demographics + + + | Address | [address] | | | [place] [address] | + + + | Home Phone | | + + + | Preferred Language | Unknown | + + + | Marital Status | Single | + + + | Sabianist Affiliation | Unknown | + + + | Race | Unknown | + + + | Ethnic Group | Unknown | + + + Author + + + | Author | [facility] | | | and [place]obana | + + + | Organization | [facility] | | | and Jakobana [...] Team Providers + +------+ + | Care Touch Up Worker Name | Role | Phone | + +------+ + | Lauryn Stuart PA-C | PCP | | + +------+ + Encounter Details +--------+ + + + + | Date | Type | Department | Care Team | Description | +--------+ + + + + | 01/21/ | Imaging | [facility] | Provider, | Canceled (OTHER) | | 2019 | Exam | [facility] EXTERNAL | MD [address]li [address] | | | | | IMAGING [address] | [address]. | | | | | [address] | [place] [address] | | | | | [place] [address] | | | | | | [phone] | | | +--------+ + + + [...] | | | | | | [address] | | | | | | [place] [address] | | | | | | [phone] | | | | | | | | +--------+ + + + + documented as of this encounter Procedures + +--------+ + + + | Procedure Name | Priori | Date/Time | Associated Diagnosis | Comments | | | ty | | | | + +--------+ + + + | FL VIDEO SWALLOW W | Routin | 12/11/2018 | | Results for this | | SPEECH | e | 9:45 AM | | procedure are in the | | | | PDT | | results section. | + +--------+ + + + documented in this encounter Results FL Video Swallow w Speech (12/11/2018 9:45 AM PDT) + + | Specimen | [...]
--- OUTSIDE RECORDS SUMMARY | ~2020-03-30 | XMS | Encounter Summary ---
Demographics + + + | Address | [address] | | | [place] [address] | + + + | Home Phone | | + + + | Preferred Language | Unknown | + + + | Marital Status | Single | + + + | Zoroastrian Affiliation | NRP | + + + | Race | White | + + + | Ethnic Group | Not or | + + + Author + + + | Author | [facility] | + + + | Organization | [facility] | + + + | Address | Unknown | + + + | Phone | Unavailable | + + + Support + + +---------+ + | Name | Relationship | Address | Phone | + + +---------+ + | Laura Allred | ECON | Unknown | | + + +---------+ + Care Team Providers + +------+ + | Care Fruit Packer Name | Role | Phone | + +------+ + | Lauryn Stuart | PCP | | + +------+ + Encounter Details +--------+ + + + + | Date | Type | Department | Care Team | Description | +--------+ + + + + | 08/12/ | Abstract | Otolaryngology | Augustine Nolan | | | 2019 | | Laryngology Services | MD Debbie [address] | | | | | at [facility] [address] | [address] | | | | | lou [place]son for | [place], [place] | | | | | [facility] and Healing, | [address] | | | | | [facility] [address] | [phone] | | | | | [place], [place] | | | | | | [address] | | | | | | [phone] | | | +--------+ + + + + Social History + + + +--------+------+ | Tobacco Use | Types | Packs/Day | Years | Date | | | | | Used | | + + + +--------+------+ | Former Smoker | Cigarettes | | | | + + + [...] + + documented as of this encounter Functional Status + [...] | | 2019 | Visit | | [address] | | | | | | [place], | | | | | | [place] [address] | | | | | | [phone] | | | | | | | | +--------+---------+ + + + | 04/30/ | Office | Otolaryngology | Augustine Nolan | | | 2019 | Visit | | MD Debbie [address] | | | | | | [address] | | | | | | [place] | | | | | | [address] | | | | | | [phone] | | | | | | | | +--------+---------+ + + + documented as of this encounter Visit Diagnoses Not on filedocumented in this encounter
--- OUTSIDE RECORDS SUMMARY | ~2020-03-30 | XMS | Encounter Summary ---
Demographics + + + | Address | [address] | | | [place] [address] | + + + | Home Phone | | + + + | Preferred Language | Unknown | + + + | Marital Status | Single | + + + | Mosque Affiliation | Unknown | + + + | Race | Unknown | + + + | Ethnic Group | Unknown | + + + Author + + + | Author | [facility] | | | and [place] | + + + | Organization | [facility] | | | and [place]ana | [...] Team Providers + +------+ + | Care Buzzsaw Operator Helper Name | Role | Phone | + [...] | | | Therapy | Malignant | Adolfo, | Infusion [address] | | | | | neoplasm of | Boubacar Daniels, | [address] [place] | | | | | unspecified | MD [address] | [place], | | | | | part of | [place] | [place] [address] | | | | | unspecified | [address] | Phone: | | | | | bronchus or | [place], | [phone] | | | | | lung (HCC) | [place] [address] | Fax: | | | | | Procedures | Phone: | [phone] | | | | | SC VITAMIN | [phone] | | | | | | B12 | Fax: | | | | | | INJECTION, | [phone] | | | | | | [address] | | | | | | | ONDANSETRON | | | | | | | ORAL SC | | | | | | | ORAL | | | | | | | DEXAMETHASON | | | | | | | E, .25 MG | | | | | | | SC INJ., | | | | | | | APREPITANT, | | | | | | | 1 MG SC | | | | | | | PEMETREXED | | | | | | | INJECTION, | | | | | | | 10 MG SC | | | | | | | CARBOPLATIN | | | | | | | INJECTION, | | | | | | | 50 MG SC | | | | | | | ADRENALIN | | | | | | | EPINEPHRINE | | | | | | | INJECT, .1 | | | | | | | MG SC | | | | | | | DIPHENHYDRAM | | | | | | | INE HCL | | | | | | | INJECTIO, 50 | | | | | | | MG SC | | | | | | | METHYLPREDNI | | | | | | | SOLONE | | | | | | | INJECTION, | | | | | | | 125 MG SC | | | | | | | ALBUTEROL | | | | | | | COMP CON, 1 | | | | | | | MG SC | | | | | | | ALBUTEROL | | | | | | | NON-COMP | | | | | | | CON, 1 MG | | | | | | | SC | | | | | | | INJECTION, | | | | | | | FAMOTIDINE, | | | | | | | 20 MG SC | | | | | | | NORMAL | | | | | | | SALINE | | | | | | | SOLUTION | | | | | | | INFUS, 500 | | | | | | | ML SC | | | | | | | NORMAL | | | | | | | SALINE | | | | | | | SOLUTION | | | | | | | INFUS, 250 | | | | | | | ML SC | | | | | | | STERILE | | | | | | | WATER/SALINE | | | | | | | , 10 ML SC | | | | | | | CHEMOTHER, | | | | | | | IV PUSH,EA | | | | | | | ADD DRUG SC | | | | | | | CHEMOTHER, | | | | | | | IV INFUSION, | | | | | | | 1 HR SC | | | | | | | CHEMOTHER, | | | | | | | IV INFUSION, | | | | | | | EA HR SC | | | | | | | CHEMOTHER,NO | | | | | | | N-HORMONE | | | | | | | ANTI-NEOPL, | | | | | | | SUB-Q/IM SC | | | | | | | CHEMOTHER | | | | | | | HORMON | | | | | | | ANTINEOPL | | | | | | | SUB-Q/IM SC | | | | | | | | | | | | | | PALONOSETRON | | | | | | | HCL, 25 MCG | | | +--------+--------+ + + + + Encounter Details +--------+ + + + + | Date | Type | Department | Care Team | Description | +--------+ + + + + | 04/11/ | Hospital | [facility] | Adolfo, | 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 | | | | INFUS[address] [place] | left lung (HCC) | | | | [place], | [address] [place], [place] | (Primary Dx) | | | | [place] [address] | [address] | | | | | [phone] | | | +--------+ + + + [...] this encounter Last Filed Vital Signs + +---------+ + + | Vital Sign | Reading | Time Taken | Comments | + +---------+ + + | Blood Pressure | 187/75 | 04/11/2019 9:25 AM | | | | | PDT | | + +---------+ + + | Pulse | 63 | 04/11/2019 9:25 AM | | | | | PDT | | + +---------+ + + | Temperature | - | - | | + +---------+ + + | Respiratory Rate | 16 | 04/11/2019 9:25 AM | | | | | PDT | | + +---------+ + + | Oxygen Saturation | 100% | 04/11/2019 9:25 AM | | | | | PDT | | + +---------+ + + | Inhaled Oxygen | - | - | | | Concentration | | | | + +---------+ + + | Weight | - | - | | + +---------+ + + | Height | - | - | | + +---------+ + + | Body Mass Index | - | - | | + +---------+ + + documented in this encounter Medications [...] patch onto | 10 | 0 | 03/31/20 | | | (DURAGESIC) 25 | the skin every 72 | patch | | 19 | 9 | | mcg/hrIndications: | hours. | | | | | | Neoplasm related | | | | | | | pain | | | | | | + [...] + +---------+ + + | | Take 1-2 tablets by | 180 | 0 | 04/10/20 | | | HYDROcodone-acetamin | mouth every 6 hours | tablet | | 19 | 9 | | ophen (NORCO) 10-325 | as needed for Pain | | | | | | mg per tablet | for up to 30 days. | | | | | + [...] documented as of this encounter Progress Notes Bailee Walker RN - 04/11/2019 11:27 AM PDTPatient finished with treatment today, marco rated fluid infusion today well. Denies any questions or concerns. She will return on Sunday morning for fluid infusion. Discharged to home in stable condition alone. documented in this encounter Plan of Treatment [...] | | | | | [place] [address] | | | | | | [phone] | | | | | | | | +--------+ + + + + documented as of this encounter Visit Diagnoses + + | Diagnosis | + + | Malignant neoplasm of upper lobe of left lung (HCC) - Primary | + + documented in this encounter Administered Medications + +---------+ +------+-------+------+ | Medication Order | MAR | Action | Dose | Rate | Site | | | Action | Date | | | | + +---------+ +------+-------+------+ | sodium chloride 0.9% (NS) | New Bag | 04/11/20 | | 500 | | | infusion at 500 mL/hr, | | 19 9:31 | | mL/hr | | | Intravenous, ONCE, 04/11/19 at | | AM PDT | | | | | 0945, For 1 dose, 1000 cc ns iv | | | | | | | over 2 hours., | | | | | | + +---------+ +------+-------+------+ +---+---+ | | | +---+---+ documented in this encounter"
--- OUTSIDE RECORDS SUMMARY | ~2020-03-30 | XMS | Encounter Summary ---
Demographics + + + | Address | [address] | | | [place] [address] | + + + | Home Phone | | + + + | Preferred Language | Unknown | + + + | Marital Status | Single | + + + | Tenriism Affiliation | Unknown | + + + | Race | Unknown | + + + | Ethnic Group | Unknown | + + + Author + + + | Author | [facility] | | | and [place] | + + + | Organization | [facility] | | | and Jakobana [...] Team Providers + +------+ + | Care Door Installer Name | Role | Phone | + [...] | MED CTR EXTERNAL | MD [address]li [address] | | | | | IMAGING [address] | [address]. | | | | | [address] [place] | [place] [address] | | | | | [place] [address] | | | | | | [phone] | | | +--------+ + + + [...] | | | | | | [place] [address] | | | | | | [phone] | | | | | | | | +--------+ + + + + documented as of this encounter Procedures + +--------+ + + + | Procedure Name | Priori | Date/Time | Associated Diagnosis | Comments | | | ty | | | | + +--------+ + + + | XR CHEST 2 VIEWS | Routin | 11/26/2018 | | Results for this | | | e | 3:00 PM | | procedure are in the | | | | PDT | | results section. | + +--------+ + + + documented in this encounter Results XR Chest 2 Vws (11/26/2018 3:00 PM PDT) + + | Specimen | [...]
--- OUTSIDE RECORDS SUMMARY | ~2020-03-30 | XMS | Encounter Summary ---
Demographics + + + | Address | [address] | | | [place] [address] | + + + | Home Phone | | + + + | Preferred Language | Unknown | + + + | Marital Status | Single | + + + | Christian Affiliation | Unknown | + + + | Race | Unknown | + + + | Ethnic Group | Unknown | + + + Author + + + | Author | [facility] | | | and Jakobana | + + + | Organization | [facility] | | | and Jakobana [...] Team Providers + +------+ + | Care Pickle Maker Name | Role | Phone | + +------+ + | Lauryn Stuart PA-C | PCP | | + +------+ + Reason for Visit + + + | Reason | Comments | + + + | Follow-up | | + + + Evaluate & Treat (Routine) +--------+--------+ + + + + | Status | Reason | Specialty | Diagnoses / | Referred By | Referred To | | | | | Procedures | Contact | Contact | +--------+--------+ + + + + | Closed | | Pharmacist / | Diagnoses | [facility] | [place], | | | | Oncology | Malignant | Medical | Renee Olvera, | | | | | neoplasm of | Oncology | PharmD [address] | | | | | upper lobe | Clinic [address] | | | | | of left lung | [address] | [place], | | | | | (HCC) | [place], | [place] [address] | | | | | Procedures | [place] | Phone: | | | | | [phone] | [address] | [phone] | | | | | | Phone: | Fax: | | | | | | [phone] | [phone] | | | | | | Fax: | | | | | | | [phone] | | +--------+--------+ + + + + Encounter Details +--------+ + + + + | Date | Type | Department | Care Team | Description | +--------+ + + + + | 03/31/ | Hospital | [facility] | [place], | Neoplasm related | | 2019 | Encounter | [facility] | Boubacar Daniels MD [address] | pain (Primary Dx); | | | | ONCOLOGY CLINIC [address] | [facility] [place] | Malignant neoplasm | | | | [address] [place] | [address], [place] | of upper lobe of | | | | [place] [address] | [address] | left lung (HCC) | | | | [phone] | | | +--------+ + + + [...] + + + | Blood Pressure | 127/69 | 03/31/2019 12:55 PM | | | | | PDT | | + + + + + | Pulse | 83 | 03/31/2019 12:55 PM | | | | | PDT | | + + + + + | Temperature | 36.5 C (97.7 F) | 03/31/2019 12:55 PM | | | | | PDT | | + + + + + | Respiratory Rate | 30 | 03/31/2019 12:55 PM | | | | | PDT | | + + + + + | Oxygen Saturation | 100% | 03/31/2019 12:55 PM | | | | | PDT | | + + + + + | Inhaled Oxygen | - | - | | | Concentration | | | | + + + + + | Weight | 53.7 kg (118 lb 6.2 | 03/31/2019 12:55 PM | | | | oz) | PDT | | + + + + + | Height | - | - | | + + + + + | Body Mass Index | 19.72 | 01/30/2019 2:26 PM | | | [...] + + +---------+ + + | | Swish and spit 5 mLs | 200 mL | 1 | 03/20/20 | | | diphenhydrAMINE-lido | every 4 hours as | | | 19 | 9 | | jamilah-aluminum & | needed for Pain. | | | | | | magnesium | (RECIPE=1:1 mixture | | | | | | hydroxide-simethicon | of Maalox, viscous | | | | | | e (MAGIC MOUTHWASH) | lido Dropping | | | | | | | diphenhydramine due | | | | | | | todrowsiness | | | | | + + + +---------+ + + | | Take 5 mLs by mouth | 237 mL | 2 | 03/13/20 | | | diphenhydrAMINE-lido | every 4 hours as | | | 19 | 9 | | jamilah-aluminum & | needed for [...] | | Take 1-2 tablets by | | 0 | 02/18/20 | | | HYDROcodone-acetamin | mouth every 6 hours | | | 19 | 9 | | ophen (NORCO) | as needed. | | | | | | 7.5-325 mg per | | | | | | | tablet | | | [...] documented as of this encounter Progress Notes Boubacar Mata MD - 03/31/2019 12:54 PM PDTFormatting of this note might be differe nt from the original. Hematology/Oncology Progress Note [facility] [place] Pt. Name/Age/: Sussy Allred 69 y.o. 1950 [facility]. Record Number: [id number] Date of admission: 03/31/2019 The patient's primary care provider is Lauryn Stuart PA-C. Identifying Statement: Sussy Allred is a 69 y.o. female [place] [address] [place] [id number] with Stage IIIA poorly differentiated adenocarcinoma of the lung, status post left upper lobectomy December 04, 2018. The patient chart and medications were reviewed in detail and the patient was seen and exam ined. History of Present Illnesses, their Current Assessments and Plans: Problem List Lung cancer Overview ACTIVE DIAGNOSIS: pT2a,pN2,M0, Stage [...] 9, L, 4L and hilar lymph nodes (SUZE Kumar). Patholog ical specimen # [id number] was notable for a poorly differentiated adenocarcinoma, 3.2 cm w ith lymphovascular invasion (pT2a), and 13/31 lymph nodes positive for regionally metastatic disease (pN2). Post-operative course complicated by vocal cord paralysis, necessitating tem porary placement of a G-tube. 8. Cycle #1 pemetrexed/carboplatin on February 05, 2019. 9. Cycle #2 pemetrexed/carboplatin on February 27, 2019 concurrently with the initiation of ext ernal beam radiation therapy. 10. MRI brain on March 14, 2019; non-specific small areas of enhancement in the occipital lo bes bilaterally, repeat exam in one month recommended. 11. Cycle #3 pemetrexed/carboplatin on March 20, 2019 with concurrent external beam radiati on therapy. 12. Ultrasound of left supraclavicular fossa; no supraclavicular abnormality. Current Assessment & Plan Sussy Allred returned to clinic alone on 03/31/2019 for an unscheduled follow up, curr ently cycle #3 day #12 of adjuvant carboplatin/pemetrexed with external beam radiation for S tage IIIA non-small cell lung cancer. Interval history is notable for the fact that Katharina was in the [facility] ED on March 30, 2019 for complaints of chest pain. CT pulmonary angiogram demonstrated no evidence of pulmon becca embolus. There were radiographic signs of a post left lobectomy, and previously noted m ediastinal lymphadenopathy has completely resolved. A previously seen 16 mm x 12 mm spicula michelle nodule in the right lung apex is without change, previously identified to be FDG photope keon. Chief complaint is odynophagia which is not relieved with triple mouthwash. Laboratory evaluation at the [facility] emergency room yesterday is notable for a white count of 3100, hemoglobin 10 g/dL, hematocrit 29.7%, platelet count 137,000. Creat inine is 0.82 mg/dL, BUN 14 mg/dL, EGFR 69. Potassium was normal at 3.6 mEq/L. Sodium was normal at 136 mEq/L. Assessment: Symptomatic esophagitis from combined modality adjuvant chemoradiation therapy for stage IIIa lung cancer. Plan: Extended, 25-minute office encounter with Katharina today which included supportive care w ith intravenous fluids and narcotics. In addition I prescribed Duragesic (topical fentanyl) 25 mcg/h patch-apply 1 patch topically change every 72 hours. Katharina will return to clinic t omorrow for additional supportive care with IV fluids and narcotics if necessary. RESOLVED: Aspiration pneumonitis Overview Last Assessment & Plan: Increasing oxygen requirements overnight from 12/05 to 12/06 with worsening ground glass opac ities in right lung with concern for aspiration in setting of dysphagia. - Strict NPO, consider re consulting SENIOR INVESTMENT ANALYST today pending course and ENT recs - monitor for fevers and worsening respiratory status - pulmonary toilet, IS - wean O2 as able RESOLVED: Leukocytosis Overview Last Assessment & Plan: Suspect secondary to aspiration pneumonitis. Improving - Consider antibiotics if patient develops fever Review of Systems: Constitutional: Pt describes severe fatigue. Pt has been experiencing shaking chills since 03/28/19 - worse on 03/30/19 shaking chills. Pt has had nausea with chills; vomiting x1 on 03/30. No appetite since 03/28/19 - "I can't swallow because it hurts". Denies high fevers, anor exia, weight loss, or night sweats. Ear, Nose, Mouth, Throat: Pt reports worsening dysphagia - painful to swallow. Pt noting ne w mouth sores beginning last week - mostly on bottom gumline, new ones appearing on upper gu mline. Pt reports new tinnitus. Denies odynophagia. Cardiovascular: Pt currently shortness of breath at rest and with exertion; labored breathi ng noted in exam room. Pt reports generalized chest pain - "internal, feels like knife blade s slicing me". Pt currently experiencing orthopnea, unable to lay flat. Denies palpitations . Respiratory: Denies cough, hemoptysis, or sputum production. Gastrointestinal: Pt reports worsening constipation - it's been terrible. Denies abdominal pain, diarrhea, melena, or bright red blood per rectum. Genitourinary: Denies hematuria or dysuria. Musculoskeletal: Denies joint pain or tenderness. Neurologic: Pt reports headache, visual changes - worsening blurriness and new numbness/tin gling of the hands starting 03/30/19 - related to "aching, stabbing pain going down my arms". Endocrine: Denies peripheral edema or heat/cold intolerance. Hematologic: Denies spontaneous bruising or bleeding. Bruises easily. Integumentary: Denies rash or wounds. Radiation ames/rash to chest, arms, and back. Pain: Pt currently rating pain in back, chest, and arms at 9/10. Able to swallow prescribed pain medication with magic mouthwash use prior - minimal effect. ROS otherwise negative Note: Pt here for follow-up with Dr. Mata after recent ER visit. My chart: Declined Scheduled Medications: Current Outpatient Medications Medication Sig Dispense Refill acetaminophen (TYLENOL) 325 mg tablet Take 325-650 mg by mouth every 6 hours as needed. acetaminophen-codeine 120-12 mg/5 mL solution Take 5 mLs by mouth every 6 hours as need ed for Pain. 473 mL 0 acyclovir (ZOVIRAX) 400 MG tablet Take 400 mg by mouth Daily. ALPRAZolam (XANAX) 0.5 mg tablet 0.5 mg nightly as needed (taking every night.). 2 Amino Acids (AMINO ACID PO) Take 1 Scoop by mouth Daily. buPROPion (WELLBUTRIN XL) 300 mg 24 hr tablet cilostazol (PLETAL) 50 mg tablet Take 50 mg by mouth Daily. cyanocobalamin (VITAMIN B-12) 1000 MCG tablet Take 500 mcg by mouth Daily. dexamethasone (DECADRON) 4 mg tablet Take one tablet twice a day on the day before chem otherapy and for two days after chemotherapy. 40 tablet 0 jycxkewwcjQMHBT-yckfxlusy-shazgmqo & magnesium hydroxide-simethicone (MAGIC MOUTHWASH) Swish and spit 5 mLs every 4 hours as needed for Pain. (RECIPE=1:1 mixture of Maalox, viscou s lido Dropping diphenhydramine due todrowsiness 200 mL 1 dpkuynbepfTLMCW-qazhuvhpz-agdyyuyf & magnesium hydroxide-simethicone (MAGIC MOUTHWASH) Take 5 mLs by mouth every 4 hours as needed for Pain. (RECIPE = 1:1:1 mixture of Maalox, dip henhydrAMINE, viscous lidocaine) 237 mL 2 estradiol (ESTRACE) 2 MG tablet Take 2 mg by mouth Daily. fentaNYL (DURAGESIC) 25 mcg/hr Place 1 patch onto the skin every 72 hours. 10 patch 0 folic acid 1 mg tablet Take 1 tablet by mouth Daily for 100 days. 100 tablet 0 gabapentin (NEURONTIN) 300 mg capsule Take one capsule by mouth at bedtime for one day, then one capsule twice daily for one day, then 1 capsule three times daily 90 capsule 0 HYDROcodone-acetaminophen (NORCO) 7.5-325 mg per tablet Take 1-2 tablets by mouth every 6 hours as needed. lansoprazole (PREVACID) [address] capsule Take 30 mg by mouth Daily. levothyroxine (SYNTHROID) 50 mcg tablet Take 50 mcg by mouth Daily. Lidocaine HCl (MAGIC + NYSTATIN MOUTHWASH) Take 5 mLs by mouth every 4 hours. 500 mL 2 LORazepam (ATIVAN) 1 mg tablet Take one tablet orally every 4 hours as needed for nause a, anxiety or sleeplessness 30 tablet 4 Misc Natural Products (HIMALAYAN GOJI PO) Take 2 oz by mouth Daily. mometasone (ELOCON) 0.1 % cream Apply twice a day to affected area 50 g 0 non-formulary medication Take 3 oz by mouth Daily. [place]alea supplement ondansetron (ZOFRAN ODT) 8 mg disintegrating tablet One tablet twice a day for two days after chemotherapy to block nausea 40 tablet 1 prochlorperazine 10 mg tablet Take 1 tablet by mouth every 6 hours as needed for Nausea . 30 tablet 1 sucralfate (CARAFATE) 1 g tablet Take 1 tablet by mouth 4 times daily. 120 tablet 1 triamterene-hydrochlorothiazide (MAXZIDE-25) 37.5-25 mg per tablet Take [...] Last attempt to quit: 08/20/2011 Years since quittin.6 Smokeless tobacco: Never Used Substance and Sexual Activity Alcohol use: Yes Alcohol/week: 4.2 oz Types: 7 Glasses of wine per week Drug use: Never Sexual activity: Not on file Other Topics Concern Not on file Social History Narrative Not on file Patient Active Problem List Diagnosis Abnormal weight gain Acute post-operative pain Acute respiratory distress syndrome (ARDS) Annual physical exam Carpal tunnel syndrome Chronic pain Diarrhea Dysphagia GERD (gastroesophageal reflux disease) Hand pain, right Backache Cervicalgia Headache Hypophosphatemia Hypothyroidism IBS (irritable bowel syndrome) Lung cancer Pain medication agreement signed Postoperative anemia due to acute blood loss Rib pain on left side Vocal cord paralysis HTN (hypertension) Family History Problem Relation Age of Onset Other (see comment) Father pancreatic disease, unsure if it was cancer Macular degen Mother Objectives: Temp: 36.5 C (97.7 F) BP: 127/69 Pulse: 83 Resp: 30 SpO2: 100 % on Min/Max Temp past 24 hours:No data recorded No intake or output data in the 24 hours ending 04/06/19 1104 Wt. Admission: Weight: 53.7 kg (118 lb 6.2 oz) Wt. Current: Weight: 53.7 kg (118 lb 6.2 oz) Wt Readings from Last 3 Encounters: 04/03/19 55.3 kg (121 lb 14.6 oz) 03/31/19 53.7 kg (118 lb 6.2 oz) 03/27/19 54.7 kg (120 lb 9.5 oz) Physical Exam: General: The patient is [...] Skin: No rashes, bruising, or petechiae. Lymph: A sense of soft tissue fullness is present in the left supraclavicular fossa, but w ithout palpable abnormality. Neurological: Face symmetric, voice is hoarse. Station [...] in Am. J. Clin. Oncol.: Niranjan Lopez., Romeo, RGris., Renaldo Parish., May Avery., Turner, TBritni., Coral, E.T., Georgette, P .P.: Toxicity And Response Criteria [...] the Assessment and Plan. Pharmacovigilance: Palliative Care: Patient's Medications New Prescriptions ACETAMINOPHEN-CODEINE 120-12 MG/5 ML SOLUTION Take 5 mLs by mouth every 6 hours as need ed for Pain. FENTANYL (DURAGESIC) 25 MCG/HR Place 1 patch onto the skin every 72 hours. LIDOCAINE HCL (MAGIC + NYSTATIN MOUTHWASH) Take 5 mLs by mouth every 4 hours. SUCRALFATE (CARAFATE) 1 G TABLET Take 1 tablet by mouth 4 times daily. Modified Medications No medications on file Discontinued Medications No medications on file Procedure: Boubacar Mata MD Portions of this chart may have been created with [employer] voice recognition software. Occasi onal wrong-word or sound-alike substitutions may have occurred due to the inherent tripathi itations of voice recognition software. Please read the chart carefully and recognize, using context, where these substitutions have occurred.- documented in this encounter Miscellaneous Notes Assessment & Plan Note - Boubacar Mata MD - 04/06/2019 10:48 AM PDTAssociated Prob kati(s): Lung cancer (HCC)Sussy Allred returned to clinic alone on 03/31/2019 for an unsch eduled follow up, currently cycle #3 day #12 of adjuvant carboplatin/pemetrexed with externa l beam radiation for Stage IIIA non-small cell lung cancer. Interval history is notable for the fact that Katharina was in the [facility] ED on March 30, 2019 for complaints of chest pain. CT pulmonary angiogram demonstrated no evidence of pulmon becca embolus. There were radiographic signs of a post left lobectomy, and previously noted m ediastinal lymphadenopathy has completely resolved. A previously seen 16 mm x 12 mm spicula michelle nodule in the right lung apex is without change, previously identified to be FDG photope keon. Chief complaint is odynophagia which is not relieved with triple mouthwash. Laboratory evaluation at the [facility] emergency room yesterday is notable for a white count of 3100, hemoglobin 10 g/dL, hematocrit 29.7%, platelet count 137,000. Creat inine is 0.82 mg/dL, BUN 14 mg/dL, EGFR 69. Potassium was normal at 3.6 mEq/L. Sodium was normal at 136 mEq/L. Assessment: Symptomatic esophagitis from combined modality adjuvant chemoradiation therapy for stage IIIa lung cancer. Plan: Extended, 25-minute office encounter with Katharina today which included supportive care w ith intravenous fluids and narcotics. In addition I prescribed Duragesic (topical fentanyl) 25 mcg/h patch-apply 1 patch topically change every 72 hours. Katharina will return to clinic t omorrow for additional supportive care with IV fluids and narcotics if necessary.Electronica lly signed by Boubacar Mata MD at 04/06/2019 11:04 AM PDTdocumented in this encounte r Plan of Treatment +--------+ + + + + | Date | Type | Specialty | Care Team | Description | +--------+ + + + + | 04/20/ | Appointment | Radiation Oncology | Treva Ortega | | | 2019 | | | DEISY Hernandez [address] | | | | | | [address] | | | | | | [place] [address] | | | | | | [phone] | | | | | | | | +--------+ + + + + documented as of this encounter Visit Diagnoses + + | Diagnosis | + + | Neoplasm related pain - Primary Neoplasm related pain (acute) (chronic) | + + | Malignant neoplasm of upper lobe of left lung (HCC) | + + documented in this encounter
--- OUTSIDE RECORDS SUMMARY | ~2020-03-30 | XMS | Encounter Summary ---
Demographics + + + | Address | [address] | | | [place] [address] | + + + | Home Phone | | + + + | Preferred Language | Unknown | + + + | Marital Status | Single | + + + | Rastafari Affiliation | Unknown | + + + | Race | Unknown | + + + | Ethnic Group | Unknown | + + + Author + + + | Author | [facility] | | | and Jakobana | + + + | Organization | [facility] | | | and Jakobana [...] Team Providers + +------+ + | Care Rack Room Worker Name | Role | Phone | [...] neoplasm of | Boubacar Daniels, | [address] | | | | | unspecified | MD [address] | [place], | | | | | part of | [facility] | [place] [address] | | | | | unspecified | [address] | Phone: | | | | | bronchus or | [address], | [phone] | | | | | lung (HCC) | [place] [address] | Fax: | | | | | Procedures | Phone: | [phone] | | | | | PA VITAMIN | [phone] | | | | | | B12 | Fax: | | | | | | INJECTION, | [phone] | | | | | | 1000 MCG PA | | | | | | | ONDANSETRON | | | | | | | ORAL PA | | | | | | | ORAL | | | | | | | DEXAMETHASON | | | | | | | E, .25 MG | | | | | | | PA INJ., | | | | | | | APREPITANT, | | | | | | | 1 MG PA | | | | | | | PEMETREXED | | | | | | | INJECTION, | | | | | | | 10 MG PA | | | | | | | CARBOPLATIN | | | | | | | INJECTION, | | | | | | | 50 MG PA | | | | | | | ADRENALIN | | | | | | | EPINEPHRINE | | | | | | | INJECT, .1 | | | | | | | MG PA | | | | | | | DIPHENHYDRAM | | | | | | | INE HCL | | | | | | | INJECTIO, 50 | | | | | | | MG PA | | | | | | | METHYLPREDNI | | | | | | | SOLONE | | | | | | | INJECTION, | | | | | | | 125 MG PA | | | | | | | ALBUTEROL | | | | | | | COMP CON, 1 | | | | | | | MG PA | | | | | | | ALBUTEROL | | | | | | | NON-COMP | | | | | | | CON, 1 MG | | | | | | | PA | | | | | | | INJECTION, | | | | | | | FAMOTIDINE, | | | | | | | 20 MG PA | | | | | | | NORMAL | | | | | | | SALINE | | | | | | | SOLUTION | | | | | | | INFUS, 500 | | | | | | | ML PA | | | | | | | NORMAL | | | | | | | SALINE | | | | | | | SOLUTION | | | | | | | INFUS, 250 | | | | | | | ML PA | | | | | | | STERILE | | | | | | | WATER/SALINE | | | | | | | , 10 ML PA | | | | | | | CHEMOTHER, | | | | | | | IV PUSH,EA | | | | | | | ADD DRUG PA | | | | | | | CHEMOTHER, | | | | | | | IV INFUSION, | | | | | | | 1 HR PA | | | | | | | CHEMOTHER, | | | | | | | IV INFUSION, | | | | | | | EA HR PA | | | | | | | CHEMOTHER,NO | | | | | | | N-HORMONE | | | | | | | ANTI-NEOPL, | | | | | | | SUB-Q/IM PA | | | | | | | CHEMOTHER | | | | | | | HORMON | | | | | | | ANTINEOPL | | | | | | | SUB-Q/IM PA | | | | | | | | | | | | | | PALONOSETRON | | | | | | | HCL, 25 MCG | | | +--------+--------+ + + + + Encounter Details +--------+ + + + + | Date | Type | Department | Care Team | Description | +--------+ + + + + | 04/25/ | Hospital | [facility] | Adolfo, | 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 | | | | INFUSION [address] [place] | left lung (HCC) | | | | [place], | [address], [place] | (Primary Dx) | | | | [place] [address] | [address] | | | | | [phone] | | | +--------+ + + + [...] + + + | Blood Pressure | 118/70 | 04/25/2019 8:34 AM | | | | | PDT | | + + + + + | Pulse | 83 | 04/25/2019 8:34 AM | | | | | PDT | | + + + + + | Temperature | 36.2 C (97.2 F) | 04/25/2019 8:34 AM | | | | | PDT | | + + + + + | Respiratory Rate | 16 | 04/25/2019 8:34 AM | | | | | PDT | | + + + + + | Oxygen Saturation | 99% | 04/25/2019 8:34 AM | | | | | PDT [...] encounter Progress Notes Bailee Walker RN - 04/25/2019 10:16 AM PDTPatient finished with fluid infusion today, states that she was able to eat more last night, still struggling though. She denies any co ncerns at this time. She will return on Sunday for follow up with discussion on future follo w up plan. Discharged to home in stable condition alone. Tawny Frances RN - 04/25/2019 8:35 AM PDTHere for rn check and hydration. Reports she was able to drink a full glass of water this morning. No concerns. documented in this encounter Plan of Treatment [...] [address] | | | | | | [place] [address] | | | | | | [phone] | | | | | | | | +--------+ + + + + documented as of this encounter Visit Diagnoses + + | Diagnosis | + + | Malignant neoplasm of upper lobe of left lung (HCC) - Primary | + + documented in this encounter Administered Medications + +---------+ +--------+-------+------+ | Medication Order | MAR | Action | Dose | Rate | Site | | | Action | Date | | | | + +---------+ +--------+-------+------+ | sodium chloride 0.9% (NS) | New Bag | 04/25/20 | 1,000 | 500 | | | infusion at 500 mL/hr, | | 19 8:28 | mLs | mL/hr | | | Intravenous, ONCE, Sun04/25/19 at | | AM PDT | | | | | 0800, For 1 dose, 1000 cc ns iv | | | | | | | over 2 hours., | | | | | | + +---------+ +--------+-------+------+ +---+---+ | | | +---+---+ documented in this encounter"
--- OUTSIDE RECORDS SUMMARY | ~2020-03-30 | XMS | Encounter Summary ---
Demographics + + + | Address | [address] | | | [place] [address] | + + + | Home Phone | | + + + | Preferred Language | Unknown | + + + | Marital Status | Single | + + + | Adventist Affiliation | NRP | + + + | Race | White | + + + | Ethnic Group | Not or | + + + Author + + + | Author | [facility] | + + + | Organization | [facility] | + + + | Address | Unknown | + + + | Phone | Unavailable | + + + Support + + +---------+ + | Name | Relationship | Address | Phone | + + +---------+ + | Laura Allred | ECON | Unknown | | + + +---------+ + Care Team Providers + +------+ + | Care Software Product Specialist Name | Role | Phone | + [...] | | | | CONSULT TO | [facility] | [facility] | | | | | SURGERY - | Rd | [place], | | | | | CARDIOTHORAC | [place], [place] | [place] | | | | | [place] | [address] | [address] | | | | | | Phone: | Phone: | | | | | | [phone] | [phone] | | | | | | Fax: | Fax: | | | | | | [phone] | [phone] | +--------+--------+ + + + + Consultation [...] [facility] | | | | | | [address] | 3rd Floor | | | | | | Phone: | [place] | | | | | | [phone] | [address] | | | | | | Fax: | Phone: | | | | | | [phone] | [phone] | | | | | | | Fax: | | | | | | | [phone] | +--------+--------+ + + + + Encounter Details +--------+ + + + + | Date | Type | Department | Care Team | Description | +--------+ + + + + | 10/29/ | Grinder Operator Automatic | Pulmonary & | Rell Lovett, | Lung nodule (Primary | | 2019 | | Critical Care | [address] | Dx) | | | | Medicine at | [facility] | | | | | Physicians [place] | [place], [place] | | | | | [address] | [address] | | | | | [facility]'s | [phone] | | | | | [place], [address] [place] [address] | | | | | | [place], [place] | | | | | | [address] | | | | | | [phone] | | | +--------+ + + + [...] | | | | | Park [place], | | | | | | [place] [address] | | | | | | [phone] | | | | | | | | +--------+---------+ + + + | 04/30/ | Office | Otolaryngology | Augustine Nolan | | | 2020 | Visit | | MD Debbie [address] [facility] | | | | | | [address] | | | | | | [place], [place] | | | | | | [address] | | | | | | [phone] | | | | | | | [...]
--- OUTSIDE RECORDS SUMMARY | ~2020-03-30 | XMS | Encounter Summary ---
Demographics + + + | Address | [address] | | | [place] [address] | + + + | Home Phone | | + + + | Preferred Language | Unknown | + + + | Marital Status | Single | + + + | Evangelical Affiliation | Unknown | + + + | Race | Unknown | + + + | Ethnic Group | Unknown | + + + Author + + + | Author | [facility] | | | and Jakobana | + + + | Organization | [facility] | | | and [...] Team Providers + +------+ + | Care Quiller Operator Name | Role | Phone | + +------+ + | Lauryn Stuart PA-C | PCP | | + +------+ + Reason for Visit + +--------+ + | Reason | Onset | Comments | | | Date | | + +--------+ + | Medication Refill | 03/31/ | | | | 2019 | | + +--------+ + Encounter Details +--------+--------+ + + + | Date | Type | Department | Care Team | Description | +--------+--------+ + + + | 03/31/ | Refill | [facility] | Rajiv Fritz DO | Medication Refill | | 2019 | | MED CTR RAD[facility]ATION | [address] | | | | | ONCOLOGY CLINIC [address] | [place], [place] | | | | | [address] | [address] | | | | | [place] [address] | | | | | | [phone] | | | +--------+--------+ + + + Social History + +-------+ [...] + + documented as of this encounter Miscellaneous Notes Telephone Encounter - Allie Gallagher RN - 03/31/2019 2:35 PM PDTDr. Fritz updated on oscar ent increased pain over the weekend and being seen in ER for pain control. Dr. Fritz made th e following recommendations: -Hold radiation treatment Sunday and Sunday this week -Refill magic mouthwash using the formula that includes nystatin as patient may have thrush that is contributing to increased pain. -Make sure to continue using Carafate -Will order tylenol #3 liquid formula Reviewed these instructions verbally and given to patient in writing. Electronically dago d by Allie Gallagher RN at 03/31/2019 3:10 PM PDTdocumented in this encounter Plan of Treatment +--------+ + + + + | Date | Type | Specialty | Care Team | Description | +--------+ + + + + | 04/20/ | Appointment | Radiation Oncology | Treva Ortega | | | 2019 | | | DEISY Hernandez [address] | | | | | | [address] | | | | | | [place] [address] | | | | | | [phone] | | | | | | | | +--------+ + + + + documented as of this encounter Visit Diagnoses Not on filedocumented in this encounter"
--- OUTSIDE RECORDS SUMMARY | ~2020-03-30 | XMS | Encounter Summary ---
Demographics + + + | Address | [address] | | | [place] [address] | + + + | Home Phone | | + + + | Preferred Language | Unknown | + + + | Marital Status | Single | + + + | Sikhism Affiliation | NRP | + + + | Race | White | + + + | Ethnic Group | Not or | + + + Author + + + | Author | [facility] | + + + | Organization | [facility] | + + + | Address | Unknown | + + + | Phone | Unavailable | + + + Support + + +---------+ + | Name | Relationship | Address | Phone | + + +---------+ + | Laura Allred | ECON | Unknown | | + + +---------+ + Care Team Providers + +------+ + | Care Edi Architect Name | Role | Phone | + [...] + + + | Closed | | Non [facility] | Diagnoses | [place], | Non-[facility] | | | | Department | Malignant | Gi Galvez MD | Epic Dept | | | | | neoplasm of | [address] | | | | | | upper lobe | [address] | | | | | | of left lung | [place], [place] | | | | | | (HCC) | [address] | | | | | | Procedures | Phone: | | | | | | CONSULT TO | [phone] | | | | | | HEMATOLOGY / | Fax: | | | | | | ONCOLOGY | [phone] | | +--------+--------+ + + + + Reason for Visit + + + | Reason | Comments | + + + | Referral | | + + + Encounter Details +--------+ + + + + | Date | Type | Department | Care Team | Description | +--------+ + + + + | 01/16/ | Telephone | [facility] | Gi Barber, | Referral | | 2019 | | Clinics at S | MD [address] | | | | | [address] | [place], [place] | | | | | [address] [place] for | [address] | | | | | Health and Healing, | [phone] | | | | | [address] | | | | | | [place], [place] | | | | | | [address] | | | | | | [phone] | | | +--------+ + + + [...] | | | | | [address]ania [address] [place], | | | | | | [place] [address] | | | | | | [phone] | | | | | | | | +--------+---------+ + + + | 04/30/ | Office | Otolaryngology | Augustine Nolan | | | 2019 | Visit | | MD Debbie [address] | | | | | | [address] | | | | | | [place], [place] | | | | | | [address] | | | | | | [phone] | | | | | | | | +--------+---------+ + + + documented as of this encounter Visit Diagnoses + + | Diagnosis | + + | Malignant neoplasm of upper lobe of left lung (HCC) - Primary | + + documented in this encounter
--- OUTSIDE RECORDS SUMMARY | ~2020-03-30 | XMS | Encounter Summary ---
Demographics + + + | Address | [address] | | | [place] [address] | + + + | Home Phone [...] + + + | Author | [facility] | | | and Jakobana | + + + | Organization | [facility] | | | and [...] Team Providers + +------+ + | Care Board Certified Behavioral Analyst Name | Role | Phone | + [...] neoplasm of | Boubacar Daniels, | [address] | | | | | unspecified | [place] [address] | [place], | | | | | part of | [facility] | [place] [address] | | | | | unspecified | [address] | Phone: | | | | | bronchus or | [place], | [phone] | | | | | lung (HCC) | [place] [address] | Fax: | | | | | Procedures | Phone: | [phone] | | | | | NM VITAMIN | [phone] | | | | | | B12 | Fax: | | | | | | INJECTION, | [phone] | | | | | | [address] | | | | | | | ONDANSETRON | | | | | | | ORAL NM | | | | | | | ORAL | | | | | | | DEXAMETHASON | | | | | | | E, .25 MG | | | | | | | NM INJ., | | | | | | | APREPITANT, | | | | | | | 1 MG NM | | | | | | | PEMETREXED | | | | | | | INJECTION, | | | | | | | 10 MG NM | | | | | | | CARBOPLATIN | | | | | | | INJECTION, | | | | | | | 50 MG NM | | | | | | | ADRENALIN | | | | | | | EPINEPHRINE | | | | | | | INJECT, .1 | | | | | | | MG NM | | | | | | | DIPHENHYDRAM | | | | | | | INE HCL | | | | | | | INJECTIO, 50 | | | | | | | MG NM | | | | | | | METHYLPREDNI | | | | | | | SOLONE | | | | | | | INJECTION, | | | | | | | 125 MG NM | | | | | | | ALBUTEROL | | | | | | | COMP CON, 1 | | | | | | | MG NM | | | | | | | ALBUTEROL | | | | | | | NON-COMP | | | | | | | CON, 1 MG | | | | | | | NM | | | | | | | INJECTION, | | | | | | | FAMOTIDINE, | | | | | | | 20 MG NM | | | | | | | NORMAL | | | | | | | SALINE | | | | | | | SOLUTION | | | | | | | INFUS, 500 | | | | | | | ML NM | | | | | | | NORMAL | | | | | | | SALINE | | | | | | | SOLUTION | | | | | | | INFUS, 250 | | | | | | | ML NM | | | | | | | STERILE | | | | | | | WATER/SALINE | | | | | | | , 10 ML NM | | | | | | | CHEMOTHER, | | | | | | | IV PUSH,EA | | | | | | | ADD DRUG NM | | | | | | | CHEMOTHER, | | | | | | | IV INFUSION, | | | | | | | 1 HR NM | | | | | | | CHEMOTHER, | | | | | | | IV INFUSION, | | | | | | | EA HR NM | | | | | | | CHEMOTHER,NO | | | | | | | N-HORMONE | | | | | | | ANTI-NEOPL, | | | | | | | SUB-Q/IM NM | | | | | | | CHEMOTHER | | | | | | | HORMON | | | | | | | ANTINEOPL | | | | | | | SUB-Q/IM NM | | | | | | | | | | | | | | PALONOSETRON | | | | | | | HCL, 25 MCG | | | +--------+--------+ + + + + Encounter Details +--------+ + + + + | Date | Type | Department | Care Team | Description | +--------+ + + + + | 05/02/ | Hospital | [facility] | Adolfo, | Dysphagia, | | 2019 | Encounter | MED CTR CHEMO | Boubacar Daniels MD [address] | unspecified type | | | | INFUSION [address] [facility] [place] | (Primary Dx); 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[place], | [address] [place], [place] | cord paralysis; | | | | [place] [address] | [id number] | Malignant neoplasm | | | | [phone] | | of hilus of lung, | [...] + + + | Blood Pressure | 131/68 | 05/02/2019 10:35 AM | | | | | PDT | | + + + + + | Pulse | 71 | 05/02/2019 10:35 AM | | | | | PDT | | + + + + + | Temperature | 37.1 C (98.8 F) | 05/02/2019 10:35 AM | | | | | PDT | | + + + + + | Respiratory Rate | 16 | 05/02/2019 10:35 AM | | | | | PDT | | + + + + + | Oxygen Saturation | 99% | 05/02/2019 10:35 AM | | | | | PDT [...] documented as of this encounter Progress Notes Roxanne Wheeler RN - 05/02/2019 10:42 AM TEDDYHere for IV fluids. Says she is noticing he r voice is getting weak, which happened after her neck surgery. She states she was given an injection in her neck which helped before and can tell it is starting to wear off. States she is doing well, about with bowels and all systems. No other changes. 1200 - Discharged to home in satisfactory condition. Returns Sunday. Appointments previou janel provided. Venkata martinez in this encounter Plan of Treatment +--------+ [...] | | | | | [place] [address] | | | | | | [phone] | | | | | | | [...] chloride 0.9% (NS) | New Bag | 05/02/20 | | 800 | | | infusion at 800 mL/hr, | | 19 10:38 | | mL/hr | | | Intravenous, ONCE, 05/02/19 at | | AM PDT | | | | | 0815, For 1 dose, Give 1 liter | | | | | | | NS as needed per patient request, | | | | | | | | | | | | | + +---------+ +------+-------+------+ +---+---+ | | | +---+---+ documented in this encounter"
--- OUTSIDE RECORDS SUMMARY | ~2020-03-30 | XMS | Encounter Summary ---
Demographics + + + | Address | [address] | | | [place] [address] | + + + | Home Phone | | + + + | Preferred Language | Unknown | + + + | Marital Status | Single | + + + | Druze Affiliation | NRP | + + + | Race | White | + + + | Ethnic Group | Not or | + + + Author + + + | Author | [facility] | + + + | Organization | [facility] | + + + | Address | Unknown | + + + | Phone | Unavailable | + + + Support + + +---------+ + | Name | Relationship | Address | Phone | + + +---------+ + | Laura Allred | ECON | Unknown | | + + +---------+ + Care Team Providers + +------+ + | Care Director Patient Name | Role | Phone | + +------+ + | Lauryn Stuart | PCP | | + +------+ + Encounter Details +--------+ + + + + | Date | Type | Department | Care Team | Description | +--------+ + + + + | 12/08/ | MyChart | Otolaryngology | | Appointment on November | | 2019 | Encounter | Laryngology Services | | with | | | | at [facility] [address] | | An | | | | [address] [place] for | | | | | | Health and Healing, | | | | | | [address] | | | | | | [place], [place] | | | | | | [address] | | | | | | [phone] | | | +--------+ + + + [...] | | | | | | [place] | | | | | | [place] [address] | | | | | | [phone] | | | | | | | | +--------+---------+ + + + | 04/30/ | Office | Otolaryngology | Augustine Nolan | | | 2019 | Visit | | MD Debbie [address] | | | | | | [address] | | | | | | [place] | | | | | | [address] | | | | | | [phone] | | | | | | | | +--------+---------+ + + + documented as of this encounter Visit Diagnoses Not on filedocumented in this encounter
--- OUTSIDE RECORDS SUMMARY | ~2020-03-30 | XMS | Encounter Summary ---
Demographics + + + | Address | [address] | | | [place] [address] | + + + | Home Phone | | + + + | Preferred Language | Unknown | + + + | Marital Status | Single | + + + | Mosque Affiliation | Unknown | + + + | Race | Unknown | + + + | Ethnic Group | Unknown | + + + Author + + + | Author | [facility] | | | and Jakobana | + + + | Organization | [facility] | | | and Jakobana [...] Team Providers + +------+ + | Care Dynamic Balancer Name | Role | Phone | + +------+ + | Lauryn Stuart PA-C | PCP | | + +------+ + Encounter Details +--------+ + + + + | Date | Type | Department | Care Team | Description | +--------+ + + + + | 03/20/ | [facility] | [facility] | Rajiv Fritz DO | Malignant neoplasm | | 2019 | Encounter | MED CTR RADIATION | [address] | of upper lobe of | | | | ONCOLOGY CLINIC [address] | [place] | left lung (HCC) | | | | [address] | [address] | (Primary Dx) | | | | [place] [address] | | | | | | [phone] | | | +--------+ + + + [...] + + + | Blood Pressure | 113/59 | 03/20/2019 2:20 PM | | | | | PDT | | + + + + + | Pulse | 80 | 03/20/2019 2:20 PM | | | | | PDT | | + + + + + | Temperature | 36.3 C (97.3 F) | 03/20/2019 2:20 PM | | | | | PDT | | + + + + + | Respiratory Rate | 14 | 03/20/2019 2:20 PM | | | | | PDT | | + + + + + | Oxygen Saturation | 100% | 03/20/2019 2:20 PM | | | | | PDT [...] | | | | | | | ([facility]) | | | | | | + [...] documented as of this encounter Progress Notes Rajiv Fritz, DO - 03/20/2019 1:30 PM PDT Radiation Oncology Weekly On Treatment Note Diagnosis: ICD-10-CM ICD-9-CM 1. Malignant neoplasm of upper lobe of left lung (HCC) C34.12 162.3 Reason for visit: On treatment evaluation Radiation technical factors: Dose Delivered Dose Planned Fractions Delivered 3200 cGy 5000 cGy Images were reviewed this week and results of the review have been recorded in ARIA. Corre ctions were applied as necessary. Allergies Allergen Reactions Ketorolac Anaphylaxis Adhesive & Tape Dermatitis Latex Rash Current Outpatient Medications on File Prior to Encounter Medication Sig Dispense Refill acetaminophen (TYLENOL) 325 [...] two days after chemotherapy. 40 tablet 0 rdcuaozhanPVJKM-cxishbsej-kpdvrqai & magnesium hydroxide-simethicone (MAGIC MOUTHWASH) Swish and spit 5 mLs every 4 hours as needed for Pain. (RECIPE=1:1 mixture of Maalox, viscou s lido Dropping diphenhydramine due todrowsiness 200 mL 1 vgigvnpwxwJCWYH-jqdbbnozl-lhxcdmnl & magnesium hydroxide-simethicone (MAGIC MOUTHWASH) Take 5 mLs by mouth every 4 hours as needed for Pain. (RECIPE = 1:1:1 mixture of Maalox, dip henhydrAMINE, viscous lidocaine) (Patient not taking: Reported on 03/20/2019) 237 mL 2 estradiol (ESTRACE) 2 MG tablet Take 2 mg by mouth Daily. folic acid 1 mg tablet Take 1 tablet by mouth Daily for 100 days. 100 tablet 0 HYDROcodone-acetaminophen (NORCO) 7.5-325 mg per tablet [...] needed for Nausea . 30 tablet 1 triamterene-hydrochlorothiazide (MAXZIDE-25) 37.5-25 mg per tablet Take 0.5 tablets by mouth Daily. Current Facility-Administered Medications on File Prior to Encounter Medication Dose Route Frequency Provider Last Rate Last Dose [COMPLETED] aprepitant (CINVANTI) injection 130 mg 130 mg IV Push Once Renee shaffer, PharmD 130 mg at 03/20/19 1053 [COMPLETED] CARBOplatin (PARAPLATIN) 422.5 mg in sodium chloride 0.9% 500 mL infusion 422.5 mg Intravenous Once Renee Martinez PharmD Stopped at 03/20/19 1221 [COMPLETED] cyanocobalamin (VITAMIN B-12) injection 1,000 mcg 1,000 mcg Intramuscular Once Renee Martinez PharmD 1,000 mcg at 03/20/19 1320 [COMPLETED] dexamethasone (DECADRON) tablet 4 mg 4 mg Oral Once Kwabena Hogan rmD 4 mg at 03/20/19 1042 LORazepam (ATIVAN) injection 0.5-1 mg 0.5-1 mg Intravenous Q6H PRN Renee Martinez PharmD 1 mg at 03/20/19 1049 [COMPLETED] palonosetron (ALOXI) injection 0.25 mg 0.25 mg Intravenous Once Renee parmar PharmD 0.25 mg at 03/20/19 1048 [COMPLETED] PEMEtrexed (ALIMTA) 800 mg in sodium chloride 0.9% 100 mL infusion 500 mg/ m2 (Treatment Plan Recorded) Intravenous Once Renee Martinez PharmD Stopped at 9 1234 Pain assessment: Location: left chest, neck Pain Level: PAIN PROG PAIN LEVEL:5 Pain Quality: Sharp Current pain regimen: hydrocodone PRN Wt Readings from Last 3 Encounters: 03/20/19 55.8 kg (123 lb 0.3 oz) 03/13/19 54.4 kg (119 lb 14.9 oz) 03/06/19 54.1 kg (119 lb 4.3 oz) Vitals: 03/20/19 1420 BP: 113/59 Pulse: 80 Resp: 14 Temp: 36.3 C (97.3 F) TempSrc: Temporal SpO2: 100% Physical Exam Constitutional: She is oriented to person, place, and time. She appears well-developed and well-nourished. Eyes: Pupils are equal, round, and reactive to light. Lymphadenopathy: Soft fullness of left [place] Neurological: She is alert and oriented to person, place, and time. Psychiatric: She has a normal mood and affect. Nurse Assessment and Toxicity Grading: Toxicity Flowsheet 03/20/2019 Nausea - Vomiting - Fatigue - Cough - Dyspnea - Karnofsky Performance Score 70% Lab Results Component Value Date WBC 2.6 (L) 03/20/2019 HGB 8.7 (L) 03/20/2019 HCT 26.8 (L) 03/20/2019 MCV 93.1 03/20/2019 PLT 198 03/20/2019 Lab Results Component Value Date CREA 0.77 03/20/2019 BUN 17 03/20/2019 NA 138 03/20/2019 K 3.3 (L) 03/20/2019 CL 105 03/20/2019 CO2 25 03/20/2019 Lab Results Component Value Date ALT 15 03/20/2019 AST 19 03/20/2019 ALKPHOS 87 03/20/2019 BILITOT 0.3 03/20/2019 Physician Assessment: Overall, she is tolerating her postoperative chemoradiotherapy for non-small cell lung canc er well stating that she has a rash treated by topical steroid on her anterior chest. She s tates that this is caused by the radiation. Physical exam demonstrates a papular rash and n o overt radiation dermatitis. Of note this rash covers her central anterior chest as well a s posterior upper chest. Close examination demonstrates rash on her proximal and distal upp er extremities as well. Her case will be discussed with Dr. Mata later today. Disposition: - Continue radiation treatment as planned. Rajiv Fritz DO Radiation Oncologist documented in this enco unter Plan of Treatment +--------+ + + + + | Date | Type | Specialty | Care Team | Description | +--------+ + + + + | 04/20/ | Appointment | Radiation Oncology | Treva Ortega | | | 2019 | | | DEISY Hernandez [address] | | | | | | [address] | | | | | | [place] [address] | | | | | | [phone] | | | | | | | | +--------+ + + + + documented as of this encounter Visit Diagnoses + + | Diagnosis | + + | Malignant neoplasm of upper lobe of left lung (HCC) - Primary | + + documented in this encounter"
--- OUTSIDE RECORDS SUMMARY | ~2020-03-30 | XMS | Encounter Summary ---
Demographics + + + | Address | [address] | | | [place] [address] | + + + | Home Phone | | + + + | Preferred Language | Unknown | + + + | Marital Status | Single | + + + | Gnosticism Affiliation | NRP | + + + | Race | White | + + + | Ethnic Group | Not or | + + + Author + + + | Author | [facility] | + + + | Organization | [facility] | + + + | Address | Unknown | + + + | Phone | Unavailable | + + + Support + + +---------+ + | Name | Relationship | Address | Phone | + + +---------+ + | Laura Allred | ECON | Unknown | | + + +---------+ + Care Team Providers + +------+ + | Care Support Clerk Name | Role | Phone | + [...] | | | of left lung | [place], [place] | | | | | | (HCC) | [address] | | | | | | Procedures | Phone: | | | | | | CONSULT TO | [phone] | | | | | | HEMATOLOGY / | Fax: | | | | | | ONCOLOGY | [phone] | | +--------+--------+ + + + + Reason for Visit + + + | Reason | Comments | + + + | Referral | | + + + Encounter Details +--------+ + + + + | Date | Type | Department | Care Team | Description | +--------+ + + + + | 01/16/ | Telephone | [facility] | Gi Barber, | Referral | | 2019 | | Clinics at S | MD [address] | | | | | [address] | [place], [place] | | | | | [address] [place] for | [address] | | | | | Health and Healing, | [phone] | | | | | [address] | | | | | | [place], [place] | | | | | | [address] | | | | | | [phone] | | | +--------+ + + + [...] | | | | | Melania [address] [place], | | | | | | [place] [address] | | | | | | [phone] | | | | | | | | +--------+---------+ + + + | 04/30/ | Office | Otolaryngology | Augustine Nolan | | | 2019 | Visit | | MD Debbie [address] | | | | | | [address] | | | | | | [place], [place] | | | | | | [address] | | | | | | [phone] | | | | | | | | +--------+---------+ + + + documented as of this encounter Visit Diagnoses + + | Diagnosis | + + | Malignant neoplasm of upper lobe of left lung (HCC) - Primary | + + documented in this encounter
--- OUTSIDE RECORDS SUMMARY | ~2020-03-30 | XMS | Encounter Summary ---
Demographics + + + | Address | [address] | | | [place] [address] | + + + | Home Phone | | + + + | Preferred Language | Unknown | + + + | Marital Status | Single | + + + | Presybeterian Affiliation | NRP | + + + | Race | White | + + + | Ethnic Group | Not or | + + + Author + + + | Author | [facility] | + + + | Organization | [facility] | + + + | Address | Unknown | + + + | Phone | Unavailable | + + + Support + + +---------+ + | Name | Relationship | Address | Phone | + + +---------+ + | Laura Allred | ECON | Unknown | | + + +---------+ + Care Team Providers + +------+ + | Care Nutrition Educator Name | Role | Phone | + +------+ + | Lauryn Stuart | PCP | | + +------+ + Encounter Details +--------+ + + + + | Date | Type | Department | Care Team | Description | +--------+ + + + + | 12/02/ | Telephone | Cardiothoracic | Heladio Francisco, | | | 2019 | | Surgery at [facility] [address] | [address] | | | | | [address] | [address] | | | | | Physician's | [place], [place] | | | | | [address], 2nd floor | [address] | | | | | [place], [place] | [phone] | | | | | [address] | | | | | | [phone] | | | +--------+ + + + [...] | | | | | | [place], | | | | | | [place] [address] | | | | | | [phone] | | | | | | | | +--------+---------+ + + + | 04/30/ | Office | Otolaryngology | Augustine Nolan | | | 2020 | Visit | | MD Debbie [address] | | | | | | [address] | | | | | | [place] | | | | | | [address] | | | | | | [phone] | | | | | | | | +--------+---------+ + + + documented as of this encounter Visit Diagnoses Not on filedocumented in this encounter
--- OUTSIDE RECORDS SUMMARY | ~2020-03-30 | XMS | Encounter Summary ---
Demographics + + + | Address | [address] | | | [place] [address] | + + + | Home Phone | | + + + | Preferred Language | Unknown | + + + | Marital Status | Single | + + + | Rastafarian Affiliation | Unknown | + + + | Race | Unknown | + + + | Ethnic Group | Unknown | + + + Author + + + | Author | [facility] | | | and [place] | + + + | Organization | [facility] | | | and [place] | [...] Team Providers + +------+ + | Care Riddler Operator Name | Role | Phone | [...] | | ANNELISE [place] | [place] [id number] | | | | | [place] [address] | | | | | | [phone] | | | +--------+ + + + [...] [place] | | | | | | [place] [address] | | | | | | [phone] | | | | | | | | +--------+ + + + + documented as of this encounter Procedures + +--------+ + + + | Procedure Name | Priori | Date/Time | Associated Diagnosis | Comments | | | ty | | | | + +--------+ + + + | XR CHEST AP PORTABLE | Routin | 12/05/2018 | | Results for this | | | e | 5:40 PM | | procedure are in the | | | | PDT | | results section. | + +--------+ + + + documented in this encounter Results XR Chest AP Portable (12/05/2018 5:40 PM PDT) + + | Specimen | [...]
--- OUTSIDE RECORDS SUMMARY | ~2020-03-30 | XMS | Encounter Summary ---
Demographics + + + | Address | [address] | | | [place] [address] | + + + | Home Phone | | + + + | Preferred Language | Unknown | + + + | Marital Status | Single | + + + | Mandaeism Affiliation | Unknown | + + + | Race | Unknown | + + + | Ethnic Group | Unknown | + + + Author + + + | Author | [facility] | | | and [place] | + + + | Organization | [facility] | | | and [...] Team Providers + +------+ + | Care Title Curative Specialist Name | Role | Phone | + +------+ + | Lauryn Stuart PA-C | PCP | | + +------+ + Encounter Details +--------+ + + + + | Date | Type | Department | Care Team | Description | +--------+ + + + + | 03/25/ | Hospital | [facility] | Fiona Anne | | | 2019 | Encounter | [facility] | MD Issa [address] | | | | | [address]OG[address] | [place] | | | | | [place], | [id number] | | | | | [place] [address] | | | | | | [phone] | | | +--------+ + + + [...] + + documented as of this encounter Medications at Time of Discharge [...] +---------+ + + | sucralfate | Take 10 mLs by mouth | 600 mL | 0 | 03/21/20 | | | (CARAFATE) 1 g/10 mL | 2 times daily. | | | 19 | 9 | | suspension | | | | | | + [...] | | | | | | [place] | | | | | | [place] [address] | | | | | | [phone] | | | | | | | | +--------+ + + + + documented as of this encounter Visit Diagnoses Not on filedocumented in this encounter"
--- OUTSIDE RECORDS SUMMARY | ~2020-03-30 | XMS | Encounter Summary ---
Demographics + + + | Address | [address] | | | [place] [address] | + + + | Home Phone | | + + + | Preferred Language | Unknown | + + + | Marital Status | Single | + + + | Mormon Affiliation | NRP | + + + | Race | White | + + + | Ethnic Group | Not or | + + + Author + + + | Author | [facility] | + + + | Organization | [facility] | + + + | Address | Unknown | + + + | Phone | Unavailable | + + + Support + + +---------+ + | Name | Relationship | Address | Phone | + + +---------+ + | Laura Allred | ECON | Unknown | | + + +---------+ + Care Team Providers + +------+ + | Care Intranet Support Name | Role | Phone | + [...] + + + + | 12/04/ | Hospital | [facility] [address] | Manoj Kumar MD | | | 2019 - | Encounter | [id number] | [address] | | | | | [facility] | [facility] | | | 12/14/ | | [place] | [place] | | | 2019 | | [address] | [address] | | | | | [phone] | [phone] | | | | | | | [...] + + + | Blood Pressure | 107/64 | 12/14/2018 7:38 AM | | | | | PDT | | + + + + + | Pulse | 89 | 12/14/2018 7:38 AM | | | | | PDT | | + + + + + | Temperature | 36.8 C (98.2 F) | 12/14/2018 7:38 AM | | | | | PDT | | + + + + + | Respiratory Rate | 18 | 12/14/2018 7:38 AM | | | | | PDT | | + + + + + | Oxygen Saturation | 94% | 12/14/2018 7:38 AM | | | | | PDT | | + + + + + | Inhaled Oxygen | - | - | | | Concentration | | | | + + + + + | Weight | 65.5 kg (144 lb 6.4 | 12/08/2018 5:00 AM | | | | oz) | PDT | | + + + + + | Height | 162.6 cm (5' 4") | 12/04/2018 6:09 AM | | | | | PDT | | + + + + + | Body Mass Index | 24.79 | 12/04/2018 6:09 AM | | | | | PDT [...] documented as of this encounter Discharge Summaries Heladio Francisco PA-C - 12/14/2018 9:27 AM PDTFormatting of this note might be different f rom the original. Thoracic Surgery Discharge Summary Patient Name: SUSSY ALLRED Patient Discharge Attending: Manoj Kumar MD Summary Author: MALLIKA DIAZ; MELISSA BA NP Date of admission: 12/04/2018 Date of discharge: 12/14/2018 Principle diagnosis: IIIa CODY adenocarcinoma Secondary diagnoses: Post-op pain Depression Anxiety Prolonged air leak Vocal cord paralysis Hypertension Protein/caloric malnutrition GERD IBS Hypothyroidism Principle procedure: Flexible bronchoscopy, endobronchial ultrasound needle aspiration biopsy level 7 and 4 L, c ervical mediastinoscopy, biopsy of level 7 and 4R lymph nodes, left thoracoscopy, left muscl e-sparing thoracotomy, left upper lobectomy with sleeve resection of airway and pulmonary ar vero with pulmonary artery plasty with pericardial patch, mediastinal lymph node dissections level 5, 6, 7, 9, L, 4L and hilar lymph nodes (12/04/2018) Other procedures: Thoracic epidural catheter placement (12/04/2018) Left brachial Midline placement (12/07/2018) PEG placement (12/07/2018) Pleural blood patch (12/12/2018) Hospital course: Sussy Allred is a 68 year old woman with a history of left upper chest and neck swelling found to have bilateral lung nodules concerning for malignancy who was re ferred to our service for evaluation and treatment. The patient was evaluated, deemed an neetu ropriate candidate for surgery, and plans were made for the patient to undergo the above-lis michelle procedure. On the day of the patient's planned procedure, the patient was taken to the o perating theater and underwent the above-listed procedure. During the procedure, no complica tions were noted. At the end of the procedure, appropriate chest drains were placed, the pat ient was extubated, and transferred to the post-anesthesia care unit. Once recovered, the pa tient was transferred to the post-operative ICU, where she remained for five days. On post-o p day (POD) five, the patient was transferred to the post-surgical alcazar where she remained f or the rest of the hospitalization. Post-operatively, she endured a prolonged air leak, reso lved prior to discharge. Her left recurrent laryngeal nerve was sacrificed as part of her op eration; thus, she experienced marked dysphonia and dysphagia following her procedure. ENT & ENT Speech were consulted. Glottic closure noted on direct laryngoscopy, and recommendation s were for her to consider medialization thyroplasty in several months, but not during this hospitalization. Given her dysphagia, EGS was consulted, and a PEG tube was placed. ENT [place] ch followed the patient during her hospitalization, and approved advancement of her diet up to regular without restrictions prior to discharge. Her enteral feeds were discontinued and not required at discharge. Prior to discharge, the patient had satisfactory pain control wit h oral pain medications only, was ambulating without difficulty, and was tolerating adequate PO intake without nausea, vomiting, or constipation. The patient was discharged to home on 14 December in satisfactory condition. Discharge Medications: Sussy Allred Home Medication Instructions ABRAHAN:[id number] Printed on:12/13/18 4919 Medication Information acetaminophen 325 mg oral tablet Take 1-2 tablets by mouth every six hours as needed. Indications: fever, Pain albuterol 90 mcg/actuation inhalation HFA aerosol inhaler Inhale by mouth as needed. ALPRAZolam 0.25 mg oral tablet Take by mouth as needed. buPROPion XL 300 mg oral tablet extended release 24 hr Take 1 tablet by mouth once daily. cilostazol 50 mg oral tablet Take 1 tablet by mouth once daily. cyanocobalamin 1,000 mcg oral tablet Take 1,000 mcg by mouth once daily. doxycycline hyclate 100 mg oral capsule Take 100 mg by mouth two times daily. Indications: skin infection estradiol 2 mg oral tablet Take 2 mg by mouth once daily. Lactobacillus acidophilus (PROBIOTIC ACIDOPHILUS ORAL) Take 1 capsule by mouth once daily. lansoprazole 30 mg oral capsule,delayed release(DR/EC) Take 30 mg by mouth once daily. Lidocaine 4 % topical adhesive patch,medicated Apply 1 patch to affected area once daily as needed. Indications: neuropathic pain nicotine 14 mg/24 hr transdermal patch 24 hour Apply to skin as needed. oxyCODONE (immediate release) 5 mg oral tablet Take 2-4 tablets by mouth every four hours as needed for severe pain. Indications: Pain QVAR REDIHALER 40 mcg/actuation inhalation HFA aerosol breath activated Inhale by mouth once daily. senna-docusate 8.6-50 mg oral tablet Take 1 tablet by mouth twice daily as needed for constipation. Indications: constipation SYNTHROID 50 mcg oral tablet Take 50 mcg by mouth once daily. triamterene-hydrochlorothiazide 37.5-25 mg oral tablet Take 0.5 tablets by mouth once daily. Indications: high blood pressure Discharge Diet: Diet Instructions Diet Regular Regular diet Discharge Activity: As tolerated; no lifting greater than 10 pounds for six weeks from the time of surgery and no driving or operating heavy machinery while taking narcotic pain medic ations. Discharge Instructions: SUSSY ALLRED was advised to contact the Thoracic Surgery Clinic or call if the patient experiences fevers greater than 101.5 F, chest pain, chest pre ssure, new or worse shortness of breath, new or worse difficulty breathing, or new or worse incisional redness, tenderness, swelling, drainage, or inflammation. Wound care: The patient was advised to remove all dressings one day after the last chest tu be was removed and do not replace unless additional drainage continues. Also, the patient is advised to shower beginning no earlier than two days after the last chest tube was removed. Showers should include a mild soap and the wound sites should be pat-dried only. No salves, lotions, or oils should be applied to the wound site. The patient was advised to avoid imme rsion of the wounds in any water for at least four weeks after the time of the patient's breanna liborio. Discharge exam: Vital signs at the time of discharge: Last Vitals: BP 107/64 (BP Location: Right upper arm, Patient Position: Sitting) | Pulse 8 9 | Temp 36.8 C (98.2 F) | Resp 18 | Ht 1.626 m (5' 4") | Wt 65.5 kg (144 lb 6.4 oz) | SpO2 94% | BMI 24.79 kg/m | BSA 1.72 m 24 Hour Vital Min/Max: Systolic (24hrs), Av , Min:89 , Max:107 Diastolic (24hrs), Av, Min:56, Max:68 Pulse Min: 74 Max: 89 Temp Min: 36.2 C (97.2 F) Max: 37.3 C (99.1 F) Resp Min: 16 Max: 18 SpO2 Min: 94 % Max: 98 % Intake/Output Summary (Last 24 hours) at 12/14/18926 Last data filed at 12/14/18 0738 Gross per 24 hour Intake 885 ml Output 410 ml Net 475 ml Gen: NAD Neuro: AOX3; following commands HEENT: Normocephalic; atraumatic; Nares patent; MMM Neck: Supple, non-tender; no JVD or tracheal deviation Lungs: CTAB CV: RRR, S1 S2; no S3 or S4; no MRGB Abd: S/NT/ND; + flatus; + BM in last three days Ext: MAEW; no C/C/E; all extremities warm with +2 distal pulses Wound site: C/D/I; no evidence of separation, dehiscence, or infection Follow-up appointment(s): December, at 10:15 AM in the Thoracic Surgery Clinic; a referra l has been placed for her to see our medical oncologists for consideration of adjuvant thera py. - Follow-up with Dr. Nolan to be arranged Smoking cessation counseling: provided this hospitalization Pathology report: Clinical History 68 year old female with a history of left upper lobe nodule and mediastinal adenopathy Final Pathologic Diagnosis A. Lymph node, level 7, biopsy: ? Fragments of lymph node with metastatic carcinoma (08/20) ? Sales cytokeratin immunostain confirms presence of scattered tumor cells B. Lymph node, level 4R, biopsy: ? Fragments of lymph node negative for metastasis (0/1) C. Lymph node, additional level 7, biopsy: ? Fragments of lymph node negative for metastasis (0/1) D. Lymph node, level 9L, biopsy: ? Two lymph nodes negative for metastasis (0/2) E. Lymph node, level 4L, biopsy: ? Metastatic carcinoma in one lymph node (1/) F. Lymph node, level 10L, biopsy: ? Two lymph nodes negative for metastasis (0/2) G. Lymph node, proximal level 10L, biopsy: ? Metastatic carcinoma in one of three lymph nodes (1/3) H. Lymph node, level 11L, biopsy: ? 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 Lymph node, level 7, biopsy: ? One lymph node negative for metastasis (0/1) J. Lung, AP window, biopsy: ? One lymph node positive for metastatic carcinoma (08/20) K. Lymph node, 11L lower lobe, biopsy: ? Fragments of lymph node with metastatic carcinoma (08/20) L. Lymph node, level 11L BIFURCATION, biopsy: ? One lymph node with metastatic carcinoma (08/20) ? Tumor is also present in adjacent soft tissue (not due to extracapsular extension) M. Lymph node, 5-6 node, biopsy: ? Metastatic carcinoma in one lymph node (08/20), 1.8 cm. No extracapsular extension N. Lymph node, 3A node, biopsy: ? One lymph node negative for metastasis (0/1) O. Lymph node, 3 superior, biopsy: ? Metastatic carcinoma in three of nine lymph nodes (3/9) ? Largest metastatic focus measures 2.6 cm (per gross description) ? No extracapsular extension P. Lymph node, 3 most superior, biopsy: ? Two lymph nodes negative for metastasis (0/2) Q. Lung, upper lobe, left upper lobectomy: ? Invasive poorly differentiated adenocarcinoma, predominately solid, 3.2 cm ? Tumor penetrates and is present on the pleural surface (PL2) with adherent fibrin ? Lymphovascular and perineural invasion identified ? Metastatic carcinoma in two of two lymph nodes (2/2) ? Resection margins are negative for tumor ? AJCC pathologic stage (8th edition): pT2aN2 Comment: The tumor is predominately solid, immunostains for p63 (squamous differentiation) and TTF-1 are negative (Q7). There are areas with definite gland formation and signet ring like cells are seen in some of the lymph nodes. There is extensive lymphovascular invasion . The tumor present on the pleural surface is TTF-1 positive and calretinin negative (Q11). Copies of this summary should be sent to: MALLIKA [place]; Rell Lovett MD documented in this encounter Discharge Instructions AttachmentsThe following attachments cannot be sent through Care Everywhere.Lung Resection: Post-op (Montenegrin)Mediastinoscopy: Pre-op (Montenegrin)documented in this encounter Medications at Time of [...] mg by mouth | | 0 | 03/05/20 | | | mg oral tablet | [...] 0 | 10/23/19 | | | oral | once daily. [...] + documented as of this encounter Progress Silvana Rutledge MD - 12/13/2018 2:00 PM PDTLeft chest tube removed. Keena Falcon CCC-YARN TEXTURING MACHINE OPERATOR - 12/13/2018 8:11 AM PDT ENT SPEECH PATHOLOGY - INPATIENT NOTE REASON FOR ADMISSION: Per Thoracic surgery note 12/11, "Sussy Allred is a 68 y.o. female now POD#7 s/p left thoracotomy and CODY lobectomy with bronchial and PA reconstruction. L re current laryngeal nerve involvement necessitating excision. Post op aspiration with aspirati on pneumonitis needing a PEG tube and strict NPO." MBS completed 12/11: Normal oropharyngeal swallow; no aspiration. SUBJECTIVE: Patient seen this morning; at bedside. CT surgery team also present and following up on chest tube. Patient has no complaints or concerns about eating, drinking. [facility] Ate steelhead, veggies, rice and mandarin oranges for dinner las t night - no difficulty. COMMUNICATION/SPEECH STATUS: Verbal, intelligible. Voice is mildly hoarse and clear of secr etions. Volitional cough is reduced in strength but functional. Breathing comfortably on 2L O2 via NC. ORAL-MOTOR EXAMINATION: WNL CLINICAL SWALLOW EVALUATION: Observed patient eating breakfast of meat and veggie omelet wi th toast and tea. No overt dysphagia, no s/sx aspiration, patient denies odynophagia. PATIENT EDUCATION & TREATMENT: Findings were reviewed with patient, RN and CTS Fellow. Rose ent can ADAT back to regular textures. They have placed orders to discontinue TFs; RN aware and will stop them this morning. Reviewed basic aspiration precautions. All questions were a nswered and patient and were in agreement with plan below. ASSESSMENT: Doing great. Tolerating regular solids and any liquids. Voice clear, breathing comfortably. No further acute YARN TEXTURING MACHINE OPERATOR needs. PLAN: 1. ADAT back to regular diet. Pills by mouth okay - in liquids or purees as she wishes. -Aspiration precautions - upright with all PO, single small bites/sips, one bite/sip at a time -L head-turn + chin-tuck is fine if patient finds it helpful with liquids 2. TFs have been discontinued 3. ENT YARN TEXTURING MACHINE OPERATOR will sign-off. Patient can follow-up with us as outpatient in clinic with Dr. Jose arce as needed. Keena Myles MS, CCC-YARN TEXTURING MACHINE OPERATOR Speech-Language Pathologist [facility] of Otol[facility]ology, [facility] [facility] [place] [address] Pager: [phone] Terri Skaggs MD - 12/13/2018 7:11 AM PDT Thoracic Surgery Brief Inpatient Progress Note Patient name: SUSSY ALLRED Attending: Manoj Kumar MD Procedure day: 9 Procedure: Left thoracotomy, CODY lobectomy with bronchial and PA reconstruction 24 hour events: - Remains on NC, doing well, tolerating mech soft diet and diet, no complaints. 24 hour vitals: Last 24 hour min/max Temp: 36.7 C (98.1 F) Temp Min: 36.5 C (97.7 F) Max: 37.2 C (99 F) Pulse: 87 Pulse Min: 85 Max: 91 Resp: 18 Resp Min: 16 Max: 22 BP: 133/82 BP Min: 105/62 Max: 133/82 SpO2: 98 % SpO2 Min: 88 % Max: 100 % Body mass index is 24.79 kg/m. Chest tube output: 290 mL serosanguinous, WS, + air leak Brief Exam: NAD On 2L NC AOX3 RRR S/NT/ND Incision clean and dry CXR None today Labs reviewed Final path Final Pathologic Diagnosis A. Lymph node, level 7, biopsy: ? Fragments of lymph node with metastatic carcinoma (08/20) ? Sales cytokeratin immunostain confirms presence of scattered tumor cells B. Lymph node, level 4R, biopsy: ? Fragments of lymph node negative for metastasis (0/) C. Lymph node, additional level 7, biopsy: ? Fragments of lymph node negative for metastasis (0/1) D. Lymph node, level 9L, biopsy: ? Two lymph nodes negative for metastasis (0/2) E. Lymph node, level 4L, biopsy: ? Metastatic carcinoma in one lymph node (08/20) F. Lymph node, level 10L, biopsy: ? Two lymph nodes negative for metastasis (0/2) G. Lymph node, proximal level 10L, biopsy: ? Metastatic carcinoma in one of three lymph nodes (08/22) H. Lymph node, level 11L, biopsy: ? 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 Lymph node, level 7, biopsy: ? One lymph node negative for metastasis (0) J. Lung, AP window, biopsy: ? One lymph node positive for metastatic carcinoma (08/20) K. Lymph node, 11L lower lobe, biopsy: ? Fragments of lymph node with metastatic carcinoma (08/20) L. Lymph node, level 11L BIFURCATION, biopsy: ? One lymph node with metastatic carcinoma (08/20) ? Tumor is also present in adjacent soft tissue (not due to extracapsular extension) M. Lymph node, 5-6 node, biopsy: ? Metastatic carcinoma in one lymph node (1/), 1.8 cm. No extracapsular extension N. Lymph node, 3A node, biopsy: ? One lymph node negative for metastasis (0/1) O. Lymph node, 3 superior, biopsy: ? Metastatic carcinoma in three of nine lymph nodes (3/9) ? Largest metastatic focus measures 2.6 cm (per gross description) ? No extracapsular extension P. Lymph node, 3 most superior, biopsy: ? Two lymph nodes negative for metastasis (0/2) Q. Lung, upper lobe, left upper lobectomy: ? Invasive poorly differentiated adenocarcinoma, predominately solid, 3.2 cm ? Tumor penetrates and is present on the pleural surface (PL2) with adherent fibrin ? Lymphovascular and perineural invasion identified ? Metastatic carcinoma in two of two lymph nodes (2/2) ? Resection margins are negative for tumor ? AJCC pathologic stage (8th edition): pT2aN2 Assessment: Sussy Allred is a 68 y.o. female now POD#9 s/p left thoracotomy and CODY lob ectomy with bronchial and PA reconstruction for stage IIIA lung adenocarcinoma. Intraop L recurrent laryngeal nerve involvement necessitating excision with subsequent post op aspiration pneumonitis needing a PEG tube for nutrition. Now advanced to mechanical soft diet. Tube feeds off. Plan (xmuk-iz-vrzdczpi issues): - Aspiration pneumonitis: Resolved - Hypophosphatemia: Resolved - Continue chest tube to water seal, + air leak. Blood patch yesterday. Discuss removal wit h staff - L recurrent laryngeal excision: Improved swallowing. Advanced to mechanical soft diet. Co ntinue aspiration precautions, continue TF discontinued. Outpatient ENT visit, speech therap y. - Prophylaxis: enoxaparin ppx - Other: continue ambulation and PT - Dispo: 11K, plan for discharge once chest tube discontinued. Discuss with Dr Stacy Quevedo MD Cardiothoracic Surgery Fellow Pager: [phone] Keena Falcon, [facility]- YARN TEXTURING MACHINE OPERATOR - 12/12/2018 12:22 PM PDT ENT SPEECH PATHOLOGY - INPATIENT NOTE REASON FOR ADMISSION: Per Thoracic surgery note 12/11, "Sussy Allred is a 68 y.o. female now POD#7 s/p left thoracotomy and CODY lobectomy with bronchial and PA reconstruction. L re current laryngeal nerve involvement necessitating excision. Post op aspiration with aspirati on pneumonitis needing a PEG tube and strict NPO." MBS completed 12/11: Normal oropharyngeal swallow; no aspiration. SUBJECTIVE: Patient seen at bedside at noon; present, they were playing cards and c hatting. She reports swallowing has been fine but she hasn't eaten much because she doesn't like puree texture and she feels full from TFs running. She would like some chewable foods. She wants the G-tube out but understands this may not be indicated until 6 weeks post-place ent. DIETARY STATUS: Purees and any liquids. Receiving 50% of recommended TFs and all meds via G -tube still. COMMUNICATION/SPEECH STATUS: Verbal, intelligible. Voice is mildly hoarse and clear of secr etions. Volitional cough is reduced in strength but functional. Breathing comfortably on 2L O2 via NC. ORAL-MOTOR EXAMINATION: WNL CLINICAL SWALLOW EVALUATION: Patient removed O2 during PO per her preference. She was evalu ated while eating irvin crackers and pudding and sipping Diet Coke via straw. Oropharyngeal swallow WNL, no pain, no s/sx aspiration. Ate slowly and deliberately. No obvious dyspnea o r difficulty breathing during PO, even with O2 off. PATIENT EDUCATION & TREATMENT: Findings were reviewed with patient, RN and CTS resident on- call. Recommend diet upgrade to [facility] soft and any liquids for more palatable options for pat ient. Patient would like to stop TFs even if the feeding tube cannot be removed at this poin t from a surgical standpoint. Reviewed basic aspiration precautions. All questions were answ ered and patient and were in agreement with plan below. ASSESSMENT: Continues with normal oropharyngeal swallow and no s/sx aspiration with regular textures. Low PO intake related to distaste for purees and feeling full from TFs. PLAN: 1. Advance diet to mechanical soft and any liquids. Pills by mouth okay - in liquids or pur ees as she wishes. -Aspiration precautions - upright with all PO, single small bites/sips, one bite/sip at a time -L head-turn + chin-tuck is fine if patient finds it helpful with liquids 2. Team to consider further weaning/discontinuation of TFs to promote appetite 3. ENT YARN TEXTURING MACHINE OPERATOR will continue to follow. Please page [phone] or [phone] as needed. Keena Myles MS, CCC-YARN TEXTURING MACHINE OPERATOR Speech-Language Pathologist [facility], [facility] [place] [address] Pager: [phone] Sharifa YBARRA, Terri ramirez - 12/12/2018 7:53 AM PDT Thoracic Surgery Brief Inpatient Progress Note Patient name: SUSSY ALLRED Attending: Manoj Kumar MD Procedure day: 8 Procedure: Left thoracotomy, CODY lobectomy with bronchial and PA reconstruction 24 hour events: - Remains on NC, doing well, tolerating tube feeds and diet, no complaints. 24 hour vitals: Last 24 hour min/max Temp: 36.9 C (98.4 F) Temp Min: 36.4 C (97.5 F) Max: 36.9 C (98.4 F) Pulse: 86 Pulse Min: 82 Max: 91 Resp: 18 Resp Min: 16 Max: 24 BP: 129/57 BP Min: 99/60 Max: 131/67 SpO2: 94 % SpO2 Min: 93 % Max: 99 % Body mass index is 24.79 kg/m. Chest tube output: 290 mL serosanguinous, WS, + air leak Brief Exam: NAD On 2L NC AOX3 RRR S/NT/ND Incision clean and dry CXR None today Labs reviewed Assessment: Sussy Allred is a 68 y.o. female now POD#8 s/p left thoracotomy and CODY lob ectomy with bronchial and PA reconstruction. L recurrent laryngeal nerve involvement necessi tating excision. Post op aspiration with aspiration pneumonitis needing a PEG tube for nutri tion. Plan (ucay-ke-skwryrry issues): - Aspiration pneumonitis: Productive sputum, augmentin for 5 days, aggressive pulmonary matthieu let, continue RT and neb treatments. - Hypophosphatemia: Resolved - Continue chest tube to water seal, + air leak. Will discuss blood patch. - L recurrent laryngeal excision: Improved swallowing. Advanced to pureed diet. Continue as piration precautions, continue TF at half goal rate. Outpatient ENT visit, continued speech rehab as inpatient and outpatient - Prophylaxis: enoxaparin ppx - Other: continue ambulation and PT - Dispo: 11K, plan for discharge once chest tube discontinued. Discuss with Dr Stacy Quevedo MD Cardiothoracic Surgery Fellow Pager: [phone] oKeena lopez, CCC- YARN TEXTURING MACHINE OPERATOR - 12/11/2018 2:44 PM PDT ENT SPEECH PATHOLOGY - INPATIENT NOTE REASON FOR ADMISSION: Per Thoracic surgery note 12/11, "Sussy Allred is a 68 y.o. female now POD#7 s/p left thoracotomy and CODY lobectomy with bronchial and PA reconstruction. L re current laryngeal nerve involvement necessitating excision. 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 Pt has no past surgical history on file. SUBJECTIVE: Patient seen in fluoro this morning at 930. She was awake, alert and eager to p articipate. DIETARY STATUS: NPO + G-tube COMMUNICATION/SPEECH STATUS: Verbal, intelligible. Voice is hoarse but clear of secretions; occasional pitch and phonation breaks. Volitional cough is reduced in strength. Breathing c omfortably during evaluation on 2L O2 via NC. No significant stridor on inhalation or exhala tion. ORAL-MOTOR EXAMINATION: WNL MODIFIED BARIUM SWALLOW STUDY: Prior to starting the study, the patient's name and were verified. The patient was evaluated in the [facility] 10th floor Radiology suite & was observed i n the lateral and anteroposterior planes while seated. Consistencies/materials administered included: thin liquids, nectar thick liquids, honey, pudding, barium pill, fruit cocktail mi xed with barium and irvin cracker coated with barium. Liquids were trialed with and without L head-turn + chin-tuck. The patient tolerated the exam without difficulty. Oral Phase: Oral bolus control and preparation were normal. Pharyngeal Phase: Initiation of the pharyngeal phase was timely. Once initiated, laryngeal elevation was complete resulting in complete epiglottic deflection. Velopharyngeal closure was complete. Tongue base to pharyngeal wall contact was complete. There was no significant pharyngeal residue with any textures. No penetration or aspiration with or without compensat ory/postural strategies. In the dionne-posterior view, the swallow was noted to be normally symmetric. Esophageal Phase: Cricopharyngeal opening was noted to be complete. Please see the radiol ogist s report for additional information. PATIENT EDUCATION & TREATMENT: Findings were reviewed with patient, RN and CTS resident on- call. Emailed Drs. Kumar and An as well for their awareness. Recommend diet upgrad e to purees and any liquids with aspiration precautions. Suspect we will advance diet over h er hospitalization. Primary team to consider holding TFs to promote appetite and encouraging PO; orders for calorie count are in. Attempted follow-up with patient this afternoon at 2:30, but she was requesting to sleep un til 4:00 pm. Discussed further with RN; we will follow-up tomorrow. ASSESSMENT: Normal oropharyngeal swallow. No evidence of penetration or aspiration with any textures provided she adhered to basic precautions. Appears safe and appropriate to initiat e oral diet as below. PLAN: 1. Advance diet to purees and any liquids -Aspiration precautions - upright with all PO, single small bites/sips, one bite/sip at a time -L head-turn + chin-tuck is fine if patient finds it helpful with liquids -Pills one at a time in purees or liquids as tolerated 2. Will defer to primary team re: decrease or discontinue TFs 3. ENT YARN TEXTURING MACHINE OPERATOR will follow-up on morning. Please page [phone] as needed. Keena Myles MS, CCC-YARN TEXTURING MACHINE OPERATOR Speech-Language Pathologist [facility] Dept. of Otolaryngology, [address] [facility] [place] [address] Pager: [phone] Taye Falcon CCC-YARN TEXTURING MACHINE OPERATOR - 12/11/2018 10:26 AM PDT ENT SPEECH PATHOLOGY - INPATIENT NOTE MBS completed this morning at 9:30. Full note to follow. Findings: Normal oropharyngeal swallow without evidence of pharyngeal residue, penetration or aspiration with any textures. Elevated risk for aspiration mostly in the context of recen t CT surgery and recent pneumonitis. Patient is aware and appropriate and compensates well w ith basic aspiration precautions. Recommendations: 1. Diet advancement to purees and any liquids and then we will follow to advance diet to re gular over the next couple days 2. Basic aspiration precautions. L head-turn, chin-tuck if helpful, but not necessary. 3. Primary team to consider holding TFs to promote appetite as I suspect TFs/G-tube will be unnecessary soon, provided patient continues to improve and tolerate PO. 4. ENT YARN TEXTURING MACHINE OPERATOR [place] [phone] or [phone] any time with questions or concer ns. Keena Myles, MS, CCC-YARN TEXTURING MACHINE OPERATOR Speech-Language Pathologist [facility] Dept. of Otolaryngology, [address] [facility] [place] [address] Pager: [phone] Sharifa YBARRA, Terri ramirez - 12/11/2018 8:24 AM PDT Thoracic Surgery Brief Inpatient Progress Note Patient name: SUSSY ALLRED Attending: Manoj Kumar MD Procedure day: 7 Procedure: Left thoracotomy, CODY lobectomy with bronchial and PA reconstruction 24 hour events: - Remains on NC, doing well, tolerating goal tube feeds, no complaints. 24 hour vitals: Last 24 hour min/max Temp: 36.4 C (97.5 F) Temp Min: 36.4 C (97.5 F) Max: 37.2 C (99 F) Pulse: 81 Pulse Min: 63 Max: 90 Resp: 20 Resp Min: 16 Max: 20 BP: 122/69 BP Min: 108/65 Max: 122/69 SpO2: 96 % SpO2 Min: 92 % Max: 97 % Body mass index is 24.79 kg/m. Chest tube output: 170 mL serosanguinous, WS, + air leak Brief Exam: NAD On 3L NC AOX3 RRR S/NT/ND Incision clean and dry CXR None today Labs reviewed Assessment: Sussy Allred is a 68 y.o. female now POD#7 s/p left thoracotomy and CODY lob ectomy with bronchial and PA reconstruction. L recurrent laryngeal nerve involvement necessi tating excision. Post op aspiration with aspiration pneumonitis needing a PEG tube and stric t NPO. Plan (fgzm-dw-qpcjxnct issues): - Aspiration pneumonitis: Productive sputum, augmentin for 5 days, aggressive pulmonary matthieu let, continue RT and neb treatments - Hypophosphatemia: Daily rechecks, aggressively replete - Continue chest tube to water seal, + air leak. - L recurrent laryngeal excision: strict NPO, aspiration precautions, continue TF and meds per PEG. Outpatient ENT visit, continued speech rehab as inpatient and outpatient - Prophylaxis: enoxaparin ppx - Other: continue ambulation and PT - Dispo: 11K Discuss with Dr Stacy Quevedo MD Cardiothoracic Surgery Fellow Pager: [phone] Meggan Howe SLP - 4:21 PM PDTINPATIENT ENT SPEECH PROGRESS NOTE: Order received, chart reviewed. Patient with history of "large volume aspiration", even un clear. Recommend objective swallow evaluation in Radiology Sunday, 12/11 prior to initiat ion of p.o. Intake. Recommend: NPO, all nutrition/hydration/medication via PEG Plan: MBS Sunday. Meggan Dwons, Ph.D., [facility]-YARN TEXTURING MACHINE OPERATOR Capacitor Repairer Director, [facility] Otolaryngology, Head and Neck Surgery [facility] [phone] Augustine Roa MD - 12/10/2018 9:51 AM PDT PATIENT NAME: Sussy Allred [facility] MR#: [id number] : 1950 PRIMARY CARE PROVIDER: MALLIKA Toledo Patient Active Problem List Diagnosis GERD (gastroesophageal reflux disease) Hypothyroidism Acute post-operative pain Dysphagia due to vocal cord paralysis Postoperative anemia due to acute blood loss Chronic pain NSCLC, s/p L upper lobectomy HTN (hypertension) Aspiration pneumonitis (HCC) Leukocytosis Acute respiratory distress syndrome (ARDS) (HCC) Vocal cord paralysis Hypophosphatemia SUBJECTIVE: Ms. Allred notes that she feels "much stronger." OBJECTIVE: BP 108/65 | Pulse 63 | Temp 36.6 C (97.9 F) | Resp 18 | Ht 1.626 m (5' 4") | Wt 65.5 kg (144 lb 6.4 oz) | SpO2 92% | BMI 24.79 kg/m | BSA 1.72 m Intake/Output Summary (Last 24 hours) at 12/10/18 0959 Last data filed at 12/10/18 05 Gross per 24 hour Intake 2132 ml Output 885 ml Net 1247 ml PERTINENT EXAM FINDINGS: She is awake, alert and quite conversant. She has moderate low n huber swelling over the sternal notch to the lower border of the thyroid cartilage. She is so mewhat tender there. She has a nasal cannula on and a chest tube remains in place. She has no stridor at rest, but mild stridor with deep breathing. Her cough is reasonably strong, t gurpreet limited by some chest pain with deep breathing. She has a percutaneous endogastric tu be in place and is receiving tube feed. VOICE EVALUATION: Perceptual voice evaluation demonstrates dysphonia which is mild to mod erate. The pitch is acceptable for a female and shows diminished range. Vocal intensity is acceptable and shows diminished upper range. There is tr-1+ roughness, 1+ breathiness, 1- 2+ asthenia and tr-1+ tightness appreciated. There is no tremor noted with sustained vowel phonation. I am unable to detect voice breaks. Glottal teague is not detected. There is no diplophonia noted. Articulation is normal. Resonance is normal. 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 Her left true vocal fold and larynx remain somewhat swollen with adequate glottic closure clinically and mild stridor with deep breathing. She does not need an injection lar yngoplasty at this time, but may in the near future as her swelling resolves. She is tolera ting her secretions very well at this time and may be able to start oral feeding trials. We had a long talk about the natural history of unilateral true vocal fold motion impairme nt in cancer. In most cases the nerve is invaded by tumor, rather than compressed. Partial or complete recovery is not anticipated. Mild dysphagia, especially for liquids, is very c ommon and is often the result of compensatory laryngeal hyperfunction from the functional si de. There are several options for management of unilateral vocal fold paralysis in the setting of known malignancy. If the voice is only mildly dysphonic and the patient is not troubled by it, a short course of voice therapy or simple observation may be adequate. Vocal fold i njection can also improve the voice substantially and improve projection. There are no perm anent injectable materials and injections may need to be performed in the operating room und er general anesthesia if the patient cannot tolerate or does not get a good result from offi ce-based injections. A third option is medialization thyroplasty. This permanently corrects the dysphonia and is performed under sedative local anesthesia. Many patients choose this route because it el iminates the vocal fold paralysis as a problem. It does require an overnight stay in the spital, but is not particularly uncomfortable and the patients have no post-operative restri ctions on voicing or swallowing. PLAN: I have reviewed the plan for the day with the Head and Neck Team Members. Specific modifications include: I think that she could have a speech-language pathologist reassessmen t for swallowing with left head turn and chin tuck. I do not think that she will benefit fr om vocal fold augmentation during her hospitalization, but may benefit in early follow up. My best guess is that she could use this in about 2 weeks. She may well regain her swallowi ng adequately between now and then to feed orally. I will communicate my thoughts to Dr. Jose da silva. Augustine Nolan M.D. Capacitor Repairer Laryngology and Head & Neck SurgeryElectronically signed by Augustine Nolan MD at 12/10 9:59 AM Sharifa YBARRA, Silvana - 12/10/2018 6:35 AM PDT Thoracic Surgery Brief Inpatient Progress Note Patient name: SUSSY ALLRED Attending: Manoj Kumar MD Procedure day: 6 Procedure: Left thoracotomy, CODY lobectomy with bronchial and PA reconstruction 24 hour events: - Remains on NC, doing well, tolerating goal tube feeds 24 hour vitals: Last 24 hour min/max Temp: 36.8 C (98.2 F) Temp Min: 36.3 C (97.3 F) Max: 36.8 C (98.2 F) Pulse: 81 Pulse Min: 81 Max: 93 Resp: 20 Resp Min: 17 Max: 32 BP: 113/59 BP Min: 113/59 Max: 138/75 SpO2: 95 % SpO2 Min: 91 % Max: 96 % Body mass index is 24.79 kg/m. Chest tube output: 210 mL serosanguinous, WS, + air leak Brief Exam: NAD On 3L NC AOX3 RRR S/NT/ND Incision clean and dry CXR None today Assessment: Sussy Allred is a 68 y.o. female now POD#6 s/p left thoracotomy and CODY lob ectomy with bronchial and PA reconstruction. L recurrent laryngeal nerve involvement necessi tating excision. Post op aspiration with aspiration pneumonitis needing a PEG tube and stric t NPO. Plan (sesy-hw-gssahhkd issues): - Aspiration pneumonitis: Productive sputum, augmentin for 5 days, aggressive pulmonary matthieu let, continue RT and neb treatments - Hypophosphatemia: Daily rechecks, aggressively replete - Continue chest tube to water seal, + air leak. - L recurrent laryngeal excision: strict NPO, aspiration precautions, continue TF and meds per PEG. Discuss with ENT today, speech post ENT visit. - Prophylaxis: enoxaparin ppx - Other: continue ambulation and PT - Dispo: 11K Discuss with Dr Stacy Quevedo MD Cardiothoracic Surgery Fellow Pager: [phone] Kiya Stovall MD,PhD - 12/09/2018 2:43 PM Inna APS Note: Ms. Allred reports her pain is reasonably with oral pain medications, although she felt the epidural was providing superior analgesia. The epidural has been off since 10:00 AM. After frances sales for appropriate timing since last anticoagulation dose and platelets, I removed the epidural, tip intact, at 14:43. The epidural had migrated out of the space and therefore was indicated for removal Please hold prophylactic enoxaparin for 4 hours post-catheter removal. APS will sign off, please page [phone] if there are questions or concerns. APS happy to repla ce epidural in future if primary team and patient think it is needed. Kiya Santos MD Pager [phone] Department of Anesthesiology and Perioperative Medicine Chronic Pain Management Edy pickard MD, Silvana - 12/09/2018 11:47 AM PDTFormatting of this note might be different from the orig inal. Thoracic Surgery Brief Inpatient Progress Note Patient name: SUSSY ALLRED Attending: Manoj Kumar MD Procedure day: 5 Procedure: Left thoracotomy, CODY lobectomy with bronchial and PA reconstruction 24 hour events: - Remains on NC, doing well, tolerating trickle tube feeds. 24 hour vitals: Last 24 hour min/max Temp: 36.3 C (97.3 F) Temp Min: 36.3 C (97.3 F) Max: 36.9 C (98.4 F) Pulse: 84 Pulse Min: 78 Max: 98 Resp: 32 Resp Min: 16 Max: 32 BP: 118/87 BP Min: 112/75 Max: 168/90 SpO2: 95 % SpO2 Min: 88 % Max: 100 % Body mass index is 24.79 kg/m. Chest tube output: 190 mL serosanguinous, WS, + air leak Brief Exam: NAD, increased WOB from yesterday On 3L oxymask AOX3 NLB on NC RRR S/NT/ND MAEW CXR Unchanged right-sided patchy groundglass and consolidative opacities most likely related to aspiration/evolving aspiration pneumonia. Assessment: Sussy Allred is a 68 y.o. female now POD#5 s/p left thoracotomy and CODY lob ectomy with bronchial and PA reconstruction. L recurrent laryngeal nerve involvement necessi tating excision. Post op aspiration with aspiration pneumonitis needing a PEG tube and stric t NPO. Plan (ycsu-bc-kajkiqqw issues): - Aspiration pneumonitis: strict NPO, aggressive pulmonary toilet, continue RT and neb dominick tments - Hypophosphatemia: Daily rechecks, aggressively replete - Continue chest tube to water seal, + air leak. - L recurrent laryngeal excision: strict NPO, aspiration precautions, continue TF and meds per PEG. No DHT or NG tube as these will stent open LES and risk further aspiration. Speech therapy. - Post-op pain: epidural management per APS - Prophylaxis: enoxaparin ppx - Other: continue ambulation and PT - Dispo: Alcazar status Discussed with Dr Stacy Quevedo MD Cardiothoracic Surgery Fellow Pager: [phone] ee Dickerson ACNP - 12/09/2018 9:44 AM PDT Cardiovascular Intensive Care Unit Team Progress Note CVICU D2 Assigned #[id number] ICU Admission Reason Most Recent Value ICU Admission reason post-op management filed at 12/04/2018 1535 Documentation Date Row Name 12/04/18 1534 Day of Procedure 12/04/18 Thoracic Thoracic Thoracic Procedures VATS;Thoracotomy Thoracotomy Lobectomy Lobectomy L upper lobe Flex bronch, EBUS, mediastinoscopy, left VATS, left thoracotomy, leftt upper lobectomy, lef t upper lobe sleeve bronchoplasty, left PA sleeve resection and reconstruction with bovine p ericardial patch, mediastinal lymph node dissection Admission dx: Neoplasm 5 Days in ICU 5 Days in Hospital Abbreviated HPI / Daily Assessment Ms. Allred is a 68 year old female with hx of hypothyroidism, HTN, IBS, GERD, cervical disk itis who presented with bilateral pulmonary nodules, mediastinal and hilar adenopathy found to have NSCLC of L lung. She is admitted to CVICU after mediastinoscopy, L VATS/Thoracotomy, L PA resection and L bronchus resection for adenocarcinoma. Her surgery was notable for res ection of L recurrent laryngeal nerve. Continues to be strict NPO for her dysphagia and left vocal cord dysmotility as evidenced on CLINICAL APPEALS RN scope per ENT. 24 Hour events - Pain better controlled - Trace airleak noted with cough - Up in chair this am - Lytes improved/replaced, on trickle feeds - Ok to be ILC per thoracic Code Status Code Status Full Code Active Diagnosis with Assessment & Plan Priority Class POA Head/Neck Hypothyroidism Yes Current Assessment & Plan - levothyroxine 50 mcg PFT daily Vocal cord paralysis No Current Assessment & Plan Due to resection of L recurrant laryngeal nerve during surgery because of location to lym ph node. ENT evaluated on 12/05 - ENT [...] rechallenge swallow if ok from ICU's perspective Cardiovascular HTN (hypertension) Yes Current Assessment & Plan - Continue home triamterene/HCTZ Respiratory/Chest * (Principal) NSCLC, s/p L upper lobectomy Yes Current Assessment & Plan S/p Flexible bronchoscopy, endobronchial ultrasound needle aspiration biopsy level 7 and 4 L, cervical mediastinoscopy, biopsy of level 7 and 4R lymph nodes, left thoracoscopy, left muscle-sparing thoracotomy, left upper lobectomy with sleeve resection of airway and pulmon becca artery with pulmonary artery plasty with pericardial patch, mediastinal lymph node disse ctions level 5, 6, 7, 9, L, 4L and hilar lymph nodes on 12/04 - continue home Qvar - chest tube to water seal, monitor output - lovenox ppx - daily CXR Aspiration pneumonitis (HCC) No Current Assessment & Plan Increasing oxygen requirements overnight from 12/05 to 12/06 with worsening ground glass op acities in right lung with concern for aspiration in setting of dysphagia. - Strict NPO, consider re consulting YARN TEXTURING MACHINE OPERATOR today pending course and ENT recs - monitor for fevers and worsening respiratory status - pulmonary toilet, IS - wean O2 as able Acute respiratory distress syndrome (ARDS) (HCC) No Digestive GERD (gastroesophageal reflux disease) Yes Current Assessment & Plan - omeprazole daily Dysphagia due to vocal cord paralysis No Current Assessment & Plan S/p sacrifice of L recurrant laryngeal nerve with node resection now w concern for aspira tion event. PEG placed on 12/07 - Strict NPO - ENT performed CLINICAL APPEALS RN scope with evidence of left vocal cord dysfunction Per ENT: Injection laryngoplasty can be done in our clinic with Dr. Kaplan next week as an i npatient if transportation is arranged. If patient is discharged at an earlier date, this ca n also be done during an outpatient visit - Restart TF's now that lytes are optimized to goal of 55/hr Hematologic Postoperative anemia due to acute blood loss No Current Assessment & Plan - monitor chest tube output - CBC daily Leukocytosis No Current Assessment & Plan Suspect secondary to aspiration pneumonitis. Improving - Consider antibiotics if patient develops fever Endocrine/Metabolic Hypophosphatemia Unknown Current Assessment & Plan Profound hypophosphatemia after TF started concerning for refeeding syndrome - Ok to restart feeds - Check lytes q12h Other Acute post-operative pain No Current Assessment & Plan Epidural not placed pre-op because of staged approach to procedure. Pt received heparin d uring procedure because of PA involvement. APS placed epidural 4 hrs after heparin. - TEA per APS w bupivicaine/HM (changed from fentanyl) - tylenol PRN - Lidocaine patches Chronic pain Yes Code Status: FULL Physical Exam vitals and nursing note reviewed. Constitutional: She appears well-developed and well-nourished HENT: Head:normocephalic and atraumatic Eyes: EOM normal pupils are equal, round, and reactive to light Neck: normal range of motion neck supple Cardiovascular: normal rate, regular rhythm and normal heart sounds Pulmonary: effort normal and breath sounds normal. She exhibits tenderness. Left CT Trace air leak on cough, H2O seal Abdominal: Abdomen is soft. Surgical dressing CDI. Mild TTP. PEG Musculoskeletal: normal range of motion.Left midline UE Neurological: She is alert and oriented to person, place, and time. Skin: Skin is warm and dry. Psychiatric: She has a normal mood and affect. normal thought content and judgment normal. Her behavior is normal. Service Cardiac Surgery [[id number]] Admitting provider and ICU treatment team members Provider Role Specialty Pager Manoj Kumar MD Admitting Provider Cardiothoracic Surgery [id number] Quality section FAST HUG Feeding: Tube Feeds Analgesia: Epidural/APS Sedation: n/a Thromboprophylaxis: Lovenox Head of Bed: Speech and swallow evaluation Ulcer Prophylaxis: Omeprazole Glycemic Control: not indicated I have spent a total of 46 Minutes independently in the direct care and management of th is patient.Time is independent of any time spent teaching or performing any separately billa ble procedures. I reviewed the documented findings, all data and the recent imaging availabl e. CARMELO Riggins [facility] DEPARTMENT: [facility] ICU CARDIAC Place of Service:- Inpatient CSN: [id number] Suggested Modifier: None Suggested CPT: TO FIRE CHIEF'S AIDE Author:CARMELO Riggins [address] [email or web address] signed by CARMELO Riggins at 12/09/2018 11:2 5 AM Manda Garcia MD - 12/09/2018 8:35 AM PDTFormatting of this note might be different f rom the original. INPATIENT ADULT PAIN SERVICE NEURAXIAL BLOCK PROGRESS NOTE 12/09/2018 Author: Manda Hamm MD Pain Service Attending Physician: Kiya Santos MD Epidural day # 5. POD# 5. Status post: Flexible bronchoscopy, endobronchial ultrasound needle aspiration bi opsy level 7 and 4 L, cervical mediastinoscopy, biopsy of level 7 and 4R lymph nodes, left t horacoscopy, left muscle-sparing thoracotomy, left upper lobectomy with sleeve resection of airway and pulmonary artery with pulmonary artery plasty with pericardial patch, mediastinal lymph node dissections level 5, 6, 7, 9, L, 4L and hilar lymph nodes. Interval events since last APS visit: Up to chair this AM, on trickle tube feeds Ms. Allred complains of left chest pain. Her pain score at rest is 8/10. With activity, her pain score is 9/10. Specific activitie s that exacerbate Ms. Allred's pain include deep breathing, coughing, moving in bed and getti ng to a chair. Ms. Allred is satisfied with current level of pain. History of chronic or preoperative pain: yes: Typical intensity 6/10 Prior to hospitalization: Hydrocodone as hydrocodone/acetaminophen 7.5/500: 4-6/day, Al prazolam 0.25mg PRN ROS/Side Effects: Nausea/Vomiting: none Pruritus: none Numbness/Weakness: none Low BP: none Dizziness: none Sedation: none Activity level: Out of bed Diet: NPO/sips/ice chips Medications: Current Facility-Administered Medications Medication Dose Route Frequency Last Rate acetaminophen (TYLENOL) oral solution 650 mg 650 mg feeding tube Q6H albuterol 0.083% (PROVENTIL,VENTOLIN) 2.5 mg /3 mL (0.083 %) nebulizer solution 2.5 mg 2.5 mg inhalation Q4H beclomethasone (QVAR) 40 mcg/actuation inhaler 1 puff 1 puff inhalation BID buPROPion (WELLBUTRIN) tablet 100 mg 100 mg feeding tube TID enoxaparin (LOVENOX) injection 40 mg 40 mg subcutaneous QPM levothyroxine tablet 50 mcg 50 mcg feeding tube BEFORE BREAKFAST lidocaine (LIDODERM) 5 % patch 1 patch 1 patch transdermal Q24H omeprazole (PRILOSEC) oral suspension (compound) 20 mg 20 mg feeding tube BEFORE BREAK FAST senna-docusate (SENOKOT S) 8.6-50 mg 1 tablet 1 tablet feeding tube BID triamterene-hydrochlorothiazide (MAXZIDE) 18.75-12.5 mg oral dose 1 each 1 each feedin g tube DAILY Current Facility-Administered Medications Medication Dose Route Frequency Last Rate bisacodyl (DULCOLAX) suppository 10 mg 10 mg rectal DAILY PRN calcium gluconate 2 g in dextrose 5 % IV 2 g intravenous PRN calcium gluconate 3 g in dextrose 5 % IV 3 g intravenous PRN calcium gluconate IV 1 gram in NS (PREMADE) 1 g intravenous PRN magnesium sulfate in water IV (RTU) 2 g 2 g intravenous PRN Stopped (12/09/18 0215) magnesium sulfate in water IV (RTU) 4 g 4 g intravenous PRN nalbuphine (NUBAIN) injection 2.5 mg 2.5 mg intravenous Q15MIN PRN naloxone (NARCAN) injection intravenous PRN ondansetron (ZOFRAN) injection 4 mg 4 mg intravenous Q8H PRN polyethylene glycol (MIRALAX) packet 34 g 34 g feeding tube TID PRN potassium chloride SR (K-DUR) tablet 20-40 mEq 20-40 mEq oral PRN Or potassium chloride (KLOR-CON) packet 20-40 mEq 20-40 mEq feeding tube PRN potassium phosphate IV 30 mmol 30 mmol intravenous PRN prochlorperazine (COMPAZINE) injection 5-10 mg 5-10 mg intravenous Q6H PRN sodium glycerophosphate (GLYCOPHOS) IV 30 mmol 30 mmol intravenous PRN sodium glycerophosphate (GLYCOPHOS) IV 45 mmol 45 mmol intravenous PRN sodium glycerophosphate (GLYCOPHOS) IV 60 mmol 60 mmol intravenous PRN Current Facility-Administered Medications Medication Dose Route Frequency Last Rate bupivacaine 0.05 %-HYDROmorphone 20 mcg/mL epidural infusion epidural CONTINUOUS 9 mL /hr at 12/09/18 0600 Type: Epidural Rate: 9 mL/hour Anticoagulants: Enoxaparin 40mg subcutaneous daily, last dose given yesterday at 2018 hrs. Lab Results Component Value Date INRPT 0.93 11/26/2018 PLT 341 12/09/2018 APTT 25.2 (L) 12/04/2018 Opioids: None Other analgesics: Acetaminophen PO 2,600mg/day Other psychoactive medications: None Physical Exam: Last Vitals:BP 122/90 | Pulse 84 | Temp 36.7 C (98 F) | Resp (!) 26 | Ht 1.626 m (5 ' 4") | Wt 65.5 kg (144 lb 6.4 oz) | SpO2 95% | BMI 24.79 kg/m | BSA 1.72 m 24 hour Vitals min/max : Systolic (24hrs), Av , Min:112 , Max:168 Diastolic (24hrs), Av, Min:69, Max:100 Pulse Min: 78 Max: 98 Temp Min: 36.5 C (97.7 F) Max: 36.9 C (98.4 F) Resp Min: 16 Max: 28 SpO2 Min: 88 % Max: 100 % General Appearance and Neurological Examination: Mental Status: Alert Orientation: Oriented Sensory Level: deferred Motor: bilateral lower extremity(ies) -- No block: full flexion and extension of hip, knee and foot Neuraxial Catheter: Location: T2-T6;depth at skin 4.5 cm Clinically significant migration since placement? Yes Dressing: Intact Exit Site: Clean and Non-tender Insertion site exposed? No Chest tube in place. Assessment: Ms. Allred rates her pain relief as fair. Improved from yesterday. My personal assessment is concordant with this evaluation. Her catheter has significantly migrated and is therefore i ndicated for removal. Offered replacement of epidural, but patient states that she would lik e to hold off and try enteral medications for now. Doty status: Epidural: at thoracic level; If Doty is in place, it may be removed if deem ed appropriate by primary care team Diagnosis: 1. Acute post-operative pain 2. Chronic Pain 3. GERD 4. ARDS, resolved 5. Aspiration pneumonitis My treatment plan is: Transition to oxycodone 10-20mg q4h prn through feeding tube and prn IV HM. APS is available to replace epidural if patient and team feel that this is necessary. I discussed our findings and recommendations with primary care team provider CARMELO Leos. Manda Hamm MD Anesthesiology PGY1 APS Team Pager [phone] Associated attestation - Kiya Cedillo MD,PhD - 12/09/2018 4:57 PM PDTI saw and evaluated patient Ms. Sussy Allred with Resident: Dr. Hamm. I reviewed all details o f Ms. Sussy Allred s epidural block management. I have reviewed the resident s note and I agree with the plan of care as documented. I do not have additional comments. Kiya Santos MD,PhDParkview Health, MALLIKA Collins-Frances - 12/08/2018 6:40 PM PDTFormatting of this no te might be different from the original. Cardiovascular Intensive Care Unit Clinical Update Note Team: D2 Team Pager: [phone] Attending: Cece Pt Name: Sussy Allred ID: Abbreviated HPI Abbreviated HPI / Daily Assessment Ms. Allred is a 68 year old female with hx of hypothyroidism, HTN, IBS, GERD, cervical disk itis who presented with bilateral pulmonary nodules, mediastinal and hilar adenopathy found to have NSCLC of L lung. She is admitted to CVICU after mediastinoscopy, L VATS/Thoracotomy, L PA resection and L bronchus resection for adenocarcinoma. Her surgery was notable for res ection of L recurrent laryngeal nerve. Continues to be strict NPO for her dysphagia and left vocal cord dysmotility as evidenced on CLINICAL APPEALS RN scope per ENT. Given her likely long-term need fo r tube feeding given her dysphagia, a PEG was placed on 12/07 and TF started. Patient's ICU c ourse complicated by hypotension requiring phenylephrine and high volume aspiration event wi th hypoxia requiring HFNC. Update: 1. Strict NPO for Aspiration a. PEG placed 12/07/2018 b. TF at 10/hr; adv as tolerated, concern for refeeding with low Phos 2. HypoPhos a. Replacement continues. If less than 2 on next check, will need to hold TF for refeeding syndrome and check Q4h with IV replacement per protocol 3. Hypoxia a. Lasix 40mg 12/08/2018 with good response b. PEP and IS pulm toilet 4. HTN a. Start half home dose Triam/HCTZ 18.75/12.5 12/08/2018 S: Pain OK. Coughing up some secretions. Likes the PEP. O: BP 132/78 | Pulse 79 | Temp 36.9 C (98.4 F) | Resp 18 | Ht 1.626 m (5' 4") | Wt 65 .5 kg (144 lb 6.4 oz) | SpO2 96% | BMI 24.79 kg/m | BSA 1.72 m Pain Score: 8 Physical Exam vitals reviewed. Constitutional: She appears well-developed and well-nourished HENT: Head:normocephalic and atraumatic Eyes: EOM normal pupils are equal, round, and reactive to light Neck: normal range of motion neck supple Cardiovascular: normal rate, regular rhythm and normal heart sounds Pulmonary: effort normal and breath sounds normal. She exhibits tenderness. Left CT No air leak on cough, H2O seal Abdominal: Abdomen is soft. Surgical dressing CDI. Mild TTP. PEG Musculoskeletal: normal range of motion.Left midline UE Neurological: She is alert and oriented to person, place, and time. Skin: Skin is warm and dry. Psychiatric: She has a normal mood and affect. normal thought content and judgment normal. Her behavior is normal. Assessment and Plan: Hospital Problems Priority POA Head/Neck Hypothyroidism Yes Vocal cord paralysis No Cardiovascular HTN (hypertension) Yes Respiratory/Chest * (Principal) NSCLC, s/p L upper lobectomy Yes Aspiration pneumonitis (HCC) No Acute respiratory distress syndrome (ARDS) (HCC) No Digestive GERD (gastroesophageal reflux disease) Yes Dysphagia due to vocal cord paralysis No Hematologic Postoperative anemia due to acute blood loss No Leukocytosis No Endocrine/Metabolic Hypophosphatemia Unknown Acute hypokalemia Unknown Other Acute post-operative pain No Chronic pain Yes I have spent a total of 24 Minutes independently in the direct care and management of th is patient.Time is independent of any time spent teaching or performing any separately billa ble procedures. I reviewed the documented findings, all data and the recent imaging availabl e. Date of Service: 12/08/2018 DEBBIE Lay PA-C Gabriel Owens, PA-C Mercy Lopez PA - 12/08/2018 5:31 PM PDT Cardiovascular Intensive Care Unit Team Progress Note CVICU D2 Assigned #[id number] ICU Admission Reason Most Recent Value ICU Admission reason post-op management filed at 12/04/2018 2914 Documentation Date Row Name 12/04/18 1534 Day of Procedure 12/04/18 Thoracic Thoracic Thoracic Procedures VATS;Thoracotomy Thoracotomy Lobectomy Lobectomy L upper lobe Flex bronch, EBUS, mediastinoscopy, left VATS, left thoracotomy, leftt upper lobectomy, lef t upper lobe sleeve bronchoplasty, left PA sleeve resection and reconstruction with bovine p ericardial patch, mediastinal lymph node dissection Admission dx: Neoplasm 4 Days in ICU 4 Days in Hospital Abbreviated HPI / Daily Assessment Ms. Allred is a 68 year old female with hx of hypothyroidism, HTN, IBS, GERD, cervical disk itis who presented with bilateral pulmonary nodules, mediastinal and hilar adenopathy found to have NSCLC of L lung. She is admitted to CVICU after mediastinoscopy, L VATS/Thoracotomy, L PA resection and L bronchus resection for adenocarcinoma. Her surgery was notable for res ection of L recurrent laryngeal nerve. Continues to be strict NPO for her dysphagia and left vocal cord dysmotility as evidenced on CLINICAL APPEALS RN scope per ENT. Given her likely long-term need fo r tube feeding given her dysphagia, a PEG was placed on 12/07 and TF started. Patient's ICU c ourse complicated by hypotension requiring phenylephrine and high volume aspiration event wi th hypoxia requiring HFNC. 24 Hour events - PEG yesterday - TF started up to 30ml/hr - phos yesterday was 1.4 and replaced with 15 mmol sodium phos - this am phos was 0.9 and 0.5 upon repeat with K of 3.9 and 2.9 upon repeat. TF stopped and given kphos IV - weaned off HFNC this am to 8L oxymask, but pt still feels SOB - increased pain this am, epidural rate increased Code Status Code Status Full Code Active Diagnosis with Assessment & Plan Priority Class POA Head/Neck Hypothyroidism Yes Current Assessment & Plan - levothyroxine 50 mcg PFT daily Vocal cord paralysis No Current Assessment & Plan Due to resection of L recurrant laryngeal nerve during surgery because of location to lym ph node. ENT evaluated on 12/05 - ENT [...] also be done during an outpatient visit" Cardiovascular HTN (hypertension) Yes Current Assessment & Plan - hold home triamterene/HCTZ in periop period in setting of recent hypotension Respiratory/Chest * (Principal) NSCLC, s/p L upper lobectomy Yes Current Assessment & Plan S/p Flexible bronchoscopy, endobronchial ultrasound needle aspiration biopsy level 7 and 4 L, cervical mediastinoscopy, biopsy of level 7 and 4R lymph nodes, left thoracoscopy, left muscle-sparing thoracotomy, left upper lobectomy with sleeve resection of airway and pulmon becca artery with pulmonary artery plasty with pericardial patch, mediastinal lymph node disse ctions level 5, 6, 7, 9, L, 4L and hilar lymph nodes on 12/04 - continue home Qvar - chest tube to water seal, monitor output - lovenox ppx - daily CXR Aspiration pneumonitis (HCC) No Current Assessment & Plan Increasing oxygen requirements overnight from 12/05 to 12/06 with worsening ground glass op acities in right lung with concern for aspiration in setting of dysphagia. - Strict NPO - monitor for fevers and worsening respiratory status - pulmonary toilet, IS - wean O2 as able - I/O -500ml with lasix after electrolytes corrected Acute respiratory distress syndrome (ARDS) (HCC) No Digestive GERD (gastroesophageal reflux disease) Yes Current Assessment & Plan - omeprazole daily Dysphagia due to vocal cord paralysis No Current Assessment & Plan S/p sacrifice of L recurrant laryngeal nerve with node resection now w concern for aspira tion event. PEG placed on 12/07 - Strict NPO - ENT performed CLINICAL APPEALS RN scope with evidence of left vocal cord dysfunction Per ENT: Injection laryngoplasty can be done in our clinic with Dr. Kaplan next week as an i npatient if transportation is arranged. If patient is discharged at an earlier date, this ca n also be done during an outpatient visit - holding TF for now because of concern for refeeding syndrome - restart TF once phos >2 Hematologic Postoperative anemia due to acute blood loss No Current Assessment & Plan - monitor chest tube output - CBC daily Leukocytosis No Current Assessment & Plan Suspect secondary to aspiration pneumonitis. Improving - Consider antibiotics if patient develops fever Endocrine/Metabolic Hypophosphatemia Unknown Current Assessment & Plan Profound hypophosphatemia after TF started concerning for refeeding syndrome - kphos 30 mmol and PFT Kphos then repeat renal panel - sodium phos 30 mmol - restart TF 10 ml/hr only after phos >2 Acute hypokalemia Unknown Current Assessment & Plan K 2.9 this am with concern for refeeding syndrome - 30 mmol kphos replacement - repeat K in 4 hrs Other Acute post-operative pain No Current Assessment & Plan Epidural not placed pre-op because of staged approach to procedure. Pt received heparin d uring procedure because of PA involvement. APS placed epidural 4 hrs after heparin. - TEA per APS w bupivicaine/HM (changed from fentanyl) - tylenol PRN - Lidocaine patches Chronic pain Yes Code Status: FULL Physical Exam vitals reviewed. Neck: JVD present Cardiovascular: normal rate, regular rhythm and normal heart sounds no murmur heard.Exam re veals no friction rub. Pulmonary: She has rales Abdominal: Abdomen is soft. She exhibits no distention. Musculoskeletal: She exhibits no edema. Neurological: She is alert and oriented to person, place, and time. Skin: Skin is warm and dry. Psychiatric: She has a normal mood and affect. Service Cardiac Surgery [[id number]] Admitting provider and ICU treatment team members Provider Role Specialty Pager Manoj Kumar MD Admitting Provider Cardiothoracic Surgery [id number] Jama Zhao MD ICU PM Attending Anesthesiology [id number] Quality section FAST HUG Feeding: Tube Feeds: Analgesia: epidural Sedation: na Thromboprophylaxis: lovenox Head of Bed: Head of Bed >30 degrees and PT Ulcer Prophylaxis: Omeprazole Glycemic Control: not indicated I have spent a total of 50 Minutes independently in the direct care and management of th is patient.Time is independent of any time spent teaching or performing any separately billa ble procedures. I reviewed the documented findings, all data and the recent imaging availabl e. Date of Service: 12/08/2018 MALLIKA STONER [facility] DEPARTMENT: ANE ICU CARDIAC Place of Service:- Inpatient CSN: [id number] Suggested Modifier: None Suggested CPT: TO FIRE CHIEF'S AIDE Author:MALLIKA STONER [place] [address] [place] [email or web address] signed by MALLIKA Stoner at 12/08/2018 5:33 PM P Dennis Sutton MD - 12/08/2018 10:12 AM PDT Cardiovascular Intensive Care Unit Attending Progress Note CVICU D2 Assigned #[id number] ICU Admission Reason Most Recent Value ICU Admission reason post-op management filed at 12/04/2018 1534 Documentation Date Row Name 12/04/18 1534 Day of Procedure 12/04/18 Thoracic Thoracic Thoracic Procedures VATS;Thoracotomy Thoracotomy Lobectomy Lobectomy L upper lobe Flex bronch, EBUS, mediastinoscopy, left VATS, left thoracotomy, leftt upper lobectomy, lef t upper lobe sleeve bronchoplasty, left PA sleeve resection and reconstruction with bovine p ericardial patch, mediastinal lymph node dissection Hospital admission dx: Neoplasm 4 Days in ICU 4 Days in Hospital Abbreviated HPI / Daily Assessment Ms. Allred is a 68 year old female with hx of hypothyroidism, HTN, IBS, GERD, cervical disk itis who presented with bilateral pulmonary nodules, mediastinal and hilar adenopathy found to have NSCLC of L lung. She is admitted to CVICU after mediastinoscopy, L VATS/Thoracotomy, L PA resection and L bronchus resection for adenocarcinoma. Her surgery was notable for res ection of L recurrent laryngeal nerve. Continues to be strict NPO for her dysphagia and left vocal cord dysmotility as evidenced on CLINICAL APPEALS RN scope per ENT. Given her likely long-term need fo r tube feeding given her dysphagia, EGS consulted and plans for PEG. Patient's ICU course co mplicated by hypertension (required phenylephrine now weaned off) and high volume aspiration event with hypoxia requiring HFNC 20L. Remains hemodynamically stable. Medical Decision Making Critically ill, d/c from HFNC to venturi mask. Awake, alert, no neuro deficits other than vocal cord paralysis postoperatively. D/C tube feeds in the setting of potential refeeding s yndrome. PLAN: - aggressive replacement of potassium and phosphorus. Q6 hour electrolytes until stable. - consultation with nutrition. - continue epidural for pain control DISPO: ICU while actively managing refeeding syndrome Hospital Problems Priority POA Head/Neck Hypothyroidism Yes Vocal cord paralysis No Cardiovascular HTN (hypertension) Yes Hypotension No Respiratory/Chest * (Principal) NSCLC, s/p L upper lobectomy Yes Aspiration pneumonitis (HCC) No Acute respiratory distress syndrome (ARDS) (HCC) No Digestive GERD (gastroesophageal reflux disease) Yes Dysphagia due to vocal cord paralysis No Hematologic Postoperative anemia due to acute blood loss No Leukocytosis No Other Acute post-operative pain No Chronic pain Yes Service Cardiac Surgery [1048] Admitting provider and ICU treatment team members Provider Role Specialty Pager Manoj Kumar MD Admitting Provider Cardiothoracic Surgery [id number] Jama Zhao MD ICU PM Attending Anesthesiology [id number] Code Status Code Status Full Code Quality section I have spent a total of 38 minutes in the direct care and management of this patient indepe ndent of any time spent teaching or performing any separately billable procedures. I reviewe d the documented findings, all data and the recent imaging available. Seen with PA/CLINICAL APPEALS RN myah . Please see their note for details. I reviewed the documented findings, all data and the re cent imaging available. Dennis Myrick MD Author:Dennis Myrick MD [address] [email or web address] signed by Dennis Myrick MD at 12/08/2018 10:13 AM Oziel Bass MD - 12/08/2018 8:43 AM PDT INPATIENT ADULT PAIN SERVICE NEURAXIAL BLOCK PROGRESS NOTE 12/08/2018 Author: Oziel Read MD Pain Service Attending Physician: Louie Moura MD Epidural day # 4. POD# 4. Status post: Flexible bronchoscopy, endobronchial ultrasound needle aspiration biopsy level 7 and 4 L, c ervical mediastinoscopy, biopsy of level 7 and 4R lymph nodes, left thoracoscopy, left muscl e-sparing thoracotomy, left upper lobectomy with sleeve resection of airway and pulmonary ar vero with pulmonary artery plasty with pericardial patch, mediastinal lymph node dissections level 5, 6, 7, 9, L, 4L and hilar lymph nodes. Interval events since last APS visit: Intubated after high-volume aspiration event, had PE G tube placed for nutrition in setting of aspiration. Now extubated on high flow nasal-cannu la Ms. Allred complains of left sided chest pain. Her pain score at rest is 6/10. With activity, her pain score is 8/10. Specific activitie s that exacerbate Ms. Allred's pain include coughing and moving in bed. Ms. Allred is satisfi ed with current level of pain. History of chronic or preoperative pain: yes: Typical intensity 6/10 Prior to hospitalization: Hydrocodone as hydrocodone/acetaminophen 7.5/500: 4-6/day, Al prazolam 0.25mg PRN ROS/Side Effects: Nausea/Vomiting: mild Pruritus: none Numbness/Weakness: none Low BP: none Dizziness: none Sedation: none Activity level: Out of bed Diet: NPO/sips/ice chips Medications: Current Facility-Administered Medications Medication Dose Route Frequency Last Rate acetaminophen (TYLENOL) oral solution 650 mg 650 mg feeding tube Q6H beclomethasone (QVAR) 40 mcg/actuation inhaler 1 puff 1 puff inhalation BID enoxaparin (LOVENOX) injection 40 mg 40 mg subcutaneous QPM levothyroxine tablet 50 mcg 50 mcg feeding tube BEFORE BREAKFAST lidocaine (LIDODERM) 5 % patch 1 patch 1 patch transdermal Q24H potassium phosphate IV 30 mmol 30 mmol intravenous ONCE senna-docusate (SENOKOT S) 8.6-50 mg 1 tablet 1 tablet feeding tube BID sodium glycerophosphate (GLYCOPHOS) IV 30 mmol 30 mmol intravenous ONCE Current Facility-Administered Medications Medication Dose Route Frequency Last Rate albuterol 0.083% (PROVENTIL,VENTOLIN) 2.5 mg /3 mL (0.083 %) nebulizer solution 2.5 mg 2.5 mg inhalation Q6H PRN bisacodyl (DULCOLAX) suppository 10 mg 10 mg rectal DAILY PRN calcium gluconate 2 g in dextrose 5 % IV 2 g intravenous PRN calcium gluconate 3 g in dextrose 5 % IV 3 g intravenous PRN calcium gluconate IV 1 gram in NS (PREMADE) 1 g intravenous PRN magnesium sulfate in water IV (RTU) 2 g 2 g intravenous PRN magnesium sulfate in water IV (RTU) 4 g 4 g intravenous PRN nalbuphine (NUBAIN) injection 2.5 mg 2.5 mg intravenous Q15MIN PRN naloxone (NARCAN) injection intravenous PRN ondansetron (ZOFRAN) injection 4 mg 4 mg intravenous Q8H PRN polyethylene glycol (MIRALAX) packet 34 g 34 g feeding tube TID PRN potassium chloride SR (K-DUR) tablet 20-40 mEq 20-40 mEq oral PRN Or potassium chloride (KLOR-CON) packet 20-40 mEq 20-40 mEq feeding tube PRN potassium phosphate IV 30 mmol 30 mmol intravenous PRN prochlorperazine (COMPAZINE) injection 5-10 mg 5-10 mg intravenous Q6H PRN sodium glycerophosphate (GLYCOPHOS) IV 30 mmol 30 mmol intravenous PRN sodium glycerophosphate (GLYCOPHOS) IV 45 mmol 45 mmol intravenous PRN sodium glycerophosphate (GLYCOPHOS) IV 60 mmol 60 mmol intravenous PRN Current Facility-Administered Medications Medication Dose Route Frequency Last Rate bupivacaine 0.05 %-HYDROmorphone 20 mcg/mL epidural infusion epidural CONTINUOUS 4 mL /hr at 12/08/18 0729 Type: Epidural Rate: 4 mL/hour Anticoagulants: Enoxaparin 40mg subcutaneous daily, last dose given yesterday at 2107 hrs. Lab Results Component Value Date INRPT 0.93 11/26/2018 PLT 261 12/08/2018 APTT 25.2 (L) 12/04/2018 Opioids: Other epidural hydromorphone Other analgesics: Acetaminophen PO 1300 mg/day Other psychoactive medications: lidocaine patches Physical Exam: Last Vitals:BP 142/81 | Pulse 79 | Temp 36.8 C (98.2 F) | Resp (!) 29 | Ht 1.626 m (5' 4") | Wt 65.5 kg (144 lb 6.4 oz) | SpO2 96% | BMI 24.79 kg/m | BSA 1.72 m 24 hour Vitals min/max : Systolic (24hrs), Av , Min:81 , Max:162 Diastolic (24hrs), Av, Min:49, Max:95 Pulse Min: 70 Max: 92 Temp Min: 36.4 C (97.5 F) Max: 37.6 C (99.7 F) Resp Min: 13 Max: 29 SpO2 Min: 89 % Max: 100 % General Appearance and Neurological Examination: Mental Status: Alert Orientation: Oriented Sensory Level: deferred Motor: bilateral lower extremity(ies) -- No block: full flexion and extension of hip, knee and foot Neuraxial Catheter: Location: T2-T6;depth at skin 7.5 cm Clinically significant migration since placement? No Dressing: Intact Exit Site: Clean and Non-tender Insertion site exposed? No Chest tube in place. Assessment: Ms. Allred rates her pain relief as good. My personal assessment is concordant with this evaluation Doty status: Epidural: at thoracic level; If Doty is in place, it may be removed if deem ed appropriate by primary care team Diagnosis: 1. Chronic Pain 2. Acute post-operative pain 3. GERD 4. ARDS 5. Aspiration pneumonitis My treatment plan is: Continue neuraxial infusion, titrate infusion as needed I discussed our findings and recommendations with primary care team provider. Oziel Read MD Associated attestation - Louie Moura MD - 12/08/2018 12:09 PM PDTI saw and evaluated mallika Allred with trainee: Dr. Read . I have reviewed the trainee's note and I agree with the plan of care as documented. Louie Moura MD Adult Acute Pain Service [facility] Pager#: [phone] Email: [email or web address] Alcocer MD - 12/08/2018 8:25 AM PDT Thoracic Surgery Brief Inpatient Progress Note Patient name: SUSSY LALRED Attending: Manoj Kumar MD Procedure day: 4 Procedure: Left thoracotomy, CODY lobectomy with bronchial and PA reconstruction 24 hour events: - PEG yesterday with EGS, extubated post-op - TF started overnight and tolerating - worse pain control o/n, unable to sleep 2/2 discomfort - Transitioned from 40 mL HFNC to 15 mL oxymask this AM with sats 98% 24 hour vitals: Last 24 hour min/max Temp: 36.8 C (98.2 F) Temp Min: 36.4 C (97.5 F) Max: 37.6 C (99.7 F) Pulse: 89 Pulse Min: 70 Max: 92 Resp: 22 Resp Min: 13 Max: 26 BP: 162/95 BP Min: 81/56 Max: 162/95 SpO2: 98 % SpO2 Min: 89 % Max: 100 % Body mass index is 24.79 kg/m. Chest tube output: 320 (230/100) mL serosanguinous, WS, no air leak Brief Exam: NAD, increased WOB from yesterday On 15L oxymask AOX3 Right lung with diffuse crackles and bilaterally diminished breath sounds RRR S/NT/ND MAEW Wound healing without complication Assessment: Sussy Allred is a 68 y.o. female now POD#4 s/p left thoracotomy and CODY lob ectomy with bronchial and PA reconstruction. Due to the location of her tumor, concern for L recurrent laryngeal nerve injury, and L vocal cord with minimal mobility on ENT eval. CXR findings and respiratory decline concerning for aspiration pneumonitis. Now also s/p PE G by EGS and tolerating TF. CXR today is stable, though she has some clinical evidence of resp distress with increased work of breathing and O2 requirement. However she was able to be extubated post-procedure ye day, which is reassuring. Plan ([id number] issues): - Aspiration pneumonitis: strict NPO, aggressive pulmonary toilet, continue RT and neb dominick tments, follow closely for signs concerning for ARDS, consider abx +/-steroids if decline, a ppreciate critical care medicine management - Hypophosphatemia: critically low at 0.9, replacement per ICU team - Continue chest tube to water seal. WIll plan to remove when output is <200 ml over 24 hrs - L recurrent laryngeal injury: strict NPO, aspiration precautions, continue TF and meds pe r PEG. No DHT or NG tube as these will stent open LES and risk further aspiration - Post-op pain: epidural management per APS, appreciate them following. Will need some impr swapnil pain control today - Prophylaxis: enoxaparin ppx - Other: continue ambulation and PT - Dispo: continues to require ICU-level care for respiratory status - Discuss with MD Coreen Farley MD [facility] General Surgery Pager #[phone] ariana Allred PA-C - 12/08/2018 5:02 AM PDTFormatting of this note might be different from the or iginal. Cardiovascular Intensive Care Unit Clinical Update Note Team: D2 Team Pager: [phone] Attending: Cece Pt Name: Sussy Allred ID: Abbreviated HPI Abbreviated HPI / Daily Assessment Ms. Allred is a 68 year old female with hx of hypothyroidism, HTN, IBS, GERD, cervical disk itis who presented with bilateral pulmonary nodules, mediastinal and hilar adenopathy found to have NSCLC of L lung. She is admitted to CVICU after mediastinoscopy, L VATS/Thoracotomy, L PA resection and L bronchus resection for adenocarcinoma. Her surgery was notable for res ection of L recurrent laryngeal nerve. Continues to be strict NPO for her dysphagia and left vocal cord dysmotility as evidenced on CLINICAL APPEALS RN scope per ENT. Given her likely long-term need fo r tube feeding given her dysphagia, EGS consulted and plans for PEG. Patient's ICU course co mplicated by hypertension (required phenylephrine now weaned off) and high volume aspiration event with hypoxia requiring HFNC 20L. Remains hemodynamically stable. Update: 1. Strict NPO for Aspiration a. New PEG placed 12/07/2018 b. TF 2. Hypoxia secondary to aspiration pneumonitis a. Hi Familia NC for SpO2>92%; weaned down to NC b. ECHO for hypoxia & murmur TTE 12/07/2018 Final Impressions: 1. The left ventricular size is normal. 2. The LV function is normal. 3. Right ventricular size, thickness and function are normal. 4. Moderate tricuspid regurgitation. 5. The estimated right ventricular systolic pressure is mildly to moderately elevated (RVSP = 46.0 mmHg). 6. Trivial inferior pericardial effusion is seen without echocardiographic evidence of cardiac tamponade. 7. There are no prior exams available for comparison c. Lasix 20mg IVP as needed for net even to -500 d. PEP and IS pulm toilet S: Pain OK. Coughing up some secretions. Likes the PEP. O: BP 120/71 | Pulse 77 | Temp 36.4 C (97.5 F) | Resp 18 | Ht 1.626 m (5' 4") | Wt 64 .2 kg (141 lb 8.6 oz) | SpO2 (!) 89% | BMI 24.29 kg/m | BSA 1.7 m Pain Score: 8 Physical Exam vitals reviewed. Constitutional: She appears well-developed and well-nourished HENT: Head:normocephalic and atraumatic Eyes: EOM normal pupils are equal, round, and reactive to light Neck: normal range of motion neck supple Cardiovascular: normal rate, regular rhythm and normal heart sounds Pulmonary: effort normal. She exhibits tenderness. Bilat Rhonchi Abdominal: Abdomen is soft. Abd binder. Surgical dressing CDI. Mild TTP Musculoskeletal: normal range of motion. Neurological: She is alert and oriented to person, place, and time. Skin: Skin is warm and dry. Psychiatric: She has a normal mood and affect. normal thought content and judgment normal. Her behavior is normal. Assessment and Plan: Hospital Problems Priority POA Head/Neck Hypothyroidism Yes Vocal cord paralysis No Cardiovascular HTN (hypertension) Yes Hypotension No Respiratory/Chest * (Principal) NSCLC, s/p L upper lobectomy Yes Aspiration pneumonitis (HCC) No Acute respiratory distress syndrome (ARDS) (HCC) No Digestive GERD (gastroesophageal reflux disease) Yes Dysphagia due to vocal cord paralysis No Hematologic Postoperative anemia due to acute blood loss No Leukocytosis No Other Acute post-operative pain No Chronic pain Yes I have spent a total of 22 Minutes independently in the direct care and management of th is patient.Time is independent of any time spent teaching or performing any separately billa ble procedures. I reviewed the documented findings, all data and the recent imaging availabl e. Date of Service: 12/08/2018 DEBBIE Lay PA-C Gabriel Owens, PA-C Rehana Clemens MD,MPH - 12/08/2018 12:05 AM PDT . DEPARTMENT OF SURGERY Emergency General Surgery Admission Date: 12/04/2018 ( LOS: 4 days ) Attending Provider: Nicanor Neves MD Interval History and Events: -To OR yesterday for PEG -Denying abdominal pain BP (!) 81/56 | Pulse 72 | Temp 37.6 C (99.7 F) | Resp 16 | Ht 1.626 m (5' 4") | Wt 64.2 kg (141 lb 8.6 oz) | SpO2 97% | BMI 24.29 kg/m | BSA 1.7 m Intake/Output 12/06 07 - 12/07 0700 12/07 07 - 12/08 0700 I.V. 1517.7 723.6 Other 400 IV Piggyback 260 115 Total Intake 1777.7 1238.6 Urine (mL/kg/hr) 1085 (0.7) 325 (0.2) Drains (mL/kg/hr) 320 (0.2) 240 (0.2) Total Output(mL/kg) 1405 (21.9) 565 (8.8) Net +372.7 +673.6 General: Sitting up in bed, in NAD HEENT: NCAT Respiratory: Slightly increased WOB on HFNC, though able to speak in full sentences Chest: L chest tube with SS Cardiovascular: HRRR Abdomen: Soft, nondistended, minimally and appropriately TTP with gastrostomy tube in place with site c/d/i, dressing c/d/i Data Am labs pending Assessment and Plan: Sussy Allred is a 68 y.o. female with adenocarcinoma of the left lung s/p L VATS/LULobe ctomy with mediastinoscopy with intentional sacrifice of the L recurrent laryngeal nerve c/b dysphagia and aspiration. She is now POD1 s/p PEG tube placement for enteral access for nut rition and is recovering well. -OK to use tube for meds and feeds -RN to take dressing down POD2 -No need for abdominal binder from surgical perspective unless it is being used to prevent Ms. Allred from pulling at tube -EGS will sign off at this time Dr. Neves is the attending of record Signed: Mariana Dhaliwal MD,MP[facility] General Surgery, PGY-3 EGS consult resident pager: [phone] Jama Ramsey MD - 12/07/2018 7:30 PM PDT Cardiovascular Intensive Care Unit Attending Progress Note CVICU D2 Assigned #[id number] ICU Admission Reason Most Recent Value ICU Admission reason post-op management filed at 12/04/2018 1535 Documentation Date Row Name 12/04/18 1534 Day of Procedure 12/04/18 Thoracic Thoracic Thoracic Procedures VATS;Thoracotomy Thoracotomy Lobectomy Lobectomy L upper lobe Flex bronch, EBUS, mediastinoscopy, left VATS, left thoracotomy, leftt upper lobectomy, lef t upper lobe sleeve bronchoplasty, left PA sleeve resection and reconstruction with bovine p ericardial patch, mediastinal lymph node dissection Hospital admission dx: Neoplasm 3 Days in ICU 3 Days in Hospital Abbreviated HPI / Daily Assessment Ms. Allred is a 68 year old female with hx of hypothyroidism, HTN, IBS, GERD, cervical disk itis who presented with bilateral pulmonary nodules, mediastinal and hilar adenopathy found to have NSCLC of L lung. She is admitted to CVICU after mediastinoscopy, L VATS/Thoracotomy, L PA resection and L bronchus resection for adenocarcinoma. Her surgery was notable for res ection of L recurrent laryngeal nerve. Continues to be strict NPO for her dysphagia and left vocal cord dysmotility as evidenced on CLINICAL APPEALS RN scope per ENT. Given her likely long-term need fo r tube feeding given her dysphagia, EGS consulted and plans for PEG. Patient's ICU course co mplicated by hypertension (required phenylephrine now weaned off) and high volume aspiration event with hypoxia requiring HFNC 20L. Remains hemodynamically stable. Medical Decision Making Critically ill, requiring high flow NC, returned from PEG placement. Awake, alert, no neur o deficits other than vocal cord paralysis postoperatively. Given aspiration event, and voca l cord related dysphagia, will need prolonged TF until VC can be address safely to avoid fur ther aspiration events. PLAN: [] continue epidural for pain control [] will start TF in AM [] wean HFNC to SaO2 88-92%, add metaneb and ongoing RT DISPO: ICU while actively managing aspiration pneumonitis and HFNC Hospital Problems Priority POA Head/Neck Hypothyroidism Yes Vocal cord paralysis No Cardiovascular HTN (hypertension) Yes Hypotension No Respiratory/Chest * (Principal) NSCLC, s/p L upper lobectomy Yes Aspiration pneumonitis (HCC) No Acute respiratory distress syndrome (ARDS) (HCC) No Digestive GERD (gastroesophageal reflux disease) Yes Dysphagia due to vocal cord paralysis No Hematologic Postoperative anemia due to acute blood loss No Leukocytosis No Other Acute post-operative pain No Chronic pain Yes Service Cardiac Surgery [1048] Admitting provider and ICU treatment team members Provider Role Specialty Pager Manoj Kumar MD Admitting Provider Cardiothoracic Surgery [id number] Jama Zhao MD ICU PM Attending Anesthesiology 17031 Code Status Code Status Full Code This patient does not have an Advanced Care Note for this Admission. Quality section I have spent a total of 30 minutes in the direct care and management of this patient indepe ndent of any time spent teaching or performing any separately billable procedures. I reviewe d the documented findings, all data and the recent imaging available. Seen with PA/CLINICAL APPEALS RN Chalino. Please see their note for details. I reviewed the documented findings, all data and the rec ent imaging available. Date of Service: 12/07/2018 EPIC DEPARTMENT: [facility] ICU CARDIAC Place of Service:- Inpatient CSN: [id number] Suggested Modifier: None Suggested CPT: TO FIRE CHIEF'S AIDE Author:Jama Zhao MD [address] [id number] signed by Jama Zhao MD at 12/07/2018 10:13 P M Jaziel, Louie Daniels MD - 12/07/2018 1:26 PM PDTFormatting of this note might be different fr om the original. INPATIENT ADULT PAIN SERVICE NEURAXIAL BLOCK PROGRESS NOTE 12/07/2018 Author: Louie Moura MD Pain Service Attending Physician: Louie Moura MD Epidural day # 3. POD# 3. Status post: Flexible bronchoscopy, endobronchial ultrasound needle aspiration bio psy level 7 and 4 L, cervical mediastinoscopy, biopsy of level 7 and 4R lymph nodes, left th oracoscopy, left muscle-sparing thoracotomy, left upper lobectomy with sleeve resection of a [place] and pulmonary artery with pulmonary artery plasty with pericardial patch, mediastinal lymph node dissections level 5, 6, 7, 9, L, 4L and hilar lymph nodes. Interval events since last APS visit: Pain controlled Ms. Allred complains of left sided chest pain. Her pain score at rest is 8/10. With activity, her pain score is 8/10. Specific activitie s that exacerbate Ms. Allred's pain include moving in bed. Ms. Allred is satisfied with curre nt level of pain. History of chronic or preoperative pain: yes: Typical intensity 6/10 Prior to hospitalization: Hydrocodone as hydrocodone/acetaminophen 7.5/500: 4-6/day, Al prazolam 0.25mg PRN ROS/Side Effects: General: negative. Nausea/Vomiting: none Pruritus: none Numbness/Weakness: none Low BP: none Dizziness: none Sedation: none Activity level: Ambulatory Diet: NPO/sips/ice chips Medications: Current Facility-Administered Medications Medication Dose Route Frequency Last Rate beclomethasone (QVAR) 40 mcg/actuation inhaler 1 puff 1 puff inhalation BID enoxaparin (LOVENOX) injection 40 mg 40 mg subcutaneous QPM famotidine (PEPCID) injection 20 mg 20 mg intravenous BID levothyroxine injection 25 mcg 25 mcg intravenous DAILY lidocaine (LIDODERM) 5 % patch 1 patch 1 patch transdermal Q24H sodium glycerophosphate (GLYCOPHOS) IV 15 mmol 15 mmol intravenous ONCE 15 mmol (12/07 0928) Current Facility-Administered Medications Medication Dose Route Frequency Last Rate acetaminophen (TYLENOL) suppository 650 mg 650 mg rectal Q6H PRN albuterol 0.083% (PROVENTIL,VENTOLIN) 2.5 mg /3 mL (0.083 %) nebulizer solution 2.5 mg 2.5 mg inhalation Q6H PRN bisacodyl (DULCOLAX) suppository 10 mg 10 mg rectal DAILY PRN nalbuphine (NUBAIN) injection 2.5 mg 2.5 mg intravenous Q15MIN PRN naloxone (NARCAN) injection intravenous PRN ondansetron (ZOFRAN) injection 4 mg 4 mg intravenous Q8H PRN prochlorperazine (COMPAZINE) injection 5-10 mg 5-10 mg intravenous Q6H PRN Current Facility-Administered Medications Medication Dose Route Frequency Last Rate bupivacaine 0.05 %-HYDROmorphone 20 mcg/mL epidural infusion epidural CONTINUOUS 7 mL /hr at 12/07/18 1256 Type: Epidural Rate: 6 mL/hour Anticoagulants: Enoxaparin 40mg subcutaneous daily, last dose given yesterday at 6 hrs. Lab Results Component Value Date INRPT 0.93 11/26/2018 PLT 270 12/07/2018 APTT 25.2 (L) 12/04/2018 Opioids: None Other analgesics:Lidoderm Other psychoactive medications: None Physical Exam: Last Vitals:BP 128/66 | Pulse 82 | Temp 36.7 C (98.1 F) | Resp 24 | Ht 1.626 m (5' 4") | Wt 64.2 kg (141 lb 8.6 oz) | SpO2 90% | BMI 24.29 kg/m | BSA 1.7 m 24 hour Vitals min/max : Systolic (24hrs), Av , Min:90 , Max:141 Diastolic (24hrs), Av, Min:52, Max:91 Pulse Min: 73 Max: 104 Temp Min: 36.5 C (97.7 F) Max: 37 C (98.6 F) Resp Min: 13 Max: 31 SpO2 Min: 77 % Max: 100 % General Appearance and Neurological Examination: Mental Status: Alert Orientation: Coherent Sensory Level: deferred Motor: bilateral lower extremity(ies) -- No block: full flexion and extension of hip, knee and foot Neuraxial Catheter: Location: T2-T6;depth at skin 10 cm Clinically significant migration since placement? No Dressing: Intact Exit Site: Clean and Non-tender Insertion site exposed? No Chest tube in place. Assessment: Ms. Allred rates her pain relief as good. My personal assessment is concordant with this evaluation Doty status: Epidural: at thoracic level; If Doty is in place, it may be removed if deem ed appropriate by primary care team Diagnosis: 1. Acute post-thoracotomy pain 2. NSCLC 3. Epidural analgesia 4. Post-operative hypotension - resolved My treatment plan is: Continue neuraxial infusion, titrate infusion as needed Louie Moura MD Sonya Li MD - 1:01 PM PDT Cardiovascular Intensive Care Unit Team Progress Note CVICU D2 Assigned #[id number] ICU Admission Reason Most Recent Value ICU Admission reason post-op management filed at 12/04/2018 1530 Documentation Date Row Name 12/04/18 1534 Day of Procedure 12/04/18 Thoracic Thoracic Thoracic Procedures VATS;Thoracotomy Thoracotomy Lobectomy Lobectomy L upper lobe Flex bronch, EBUS, mediastinoscopy, left VATS, left thoracotomy, leftt upper lobectomy, lef t upper lobe sleeve bronchoplasty, left PA sleeve resection and reconstruction with bovine p ericardial patch, mediastinal lymph node dissection Admission dx: Neoplasm 3 Days in ICU 3 Days in Hospital Abbreviated HPI / Daily Assessment Ms. Allred is a 68 year old female with hx of hypothyroidism, HTN, IBS, GERD, cervical disk itis who presented with bilateral pulmonary nodules, mediastinal and hilar adenopathy found to have NSCLC of L lung. She is admitted to CVICU after mediastinoscopy, L VATS/Thoracotomy, L PA resection and L bronchus resection for adenocarcinoma. Her surgery was notable for res ection of L recurrent laryngeal nerve. Continues to be strict NPO for her dysphagia and left vocal cord dysmotility as evidenced on CLINICAL APPEALS RN scope per ENT. Given her likely long-term need fo r tube feeding given her dysphagia, EGS consulted and plans for PEG. Patient's ICU course co mplicated by hypertension (required phenylephrine now weaned off) and high volume aspiration event with hypoxia requiring HFNC 20L. Remains hemodynamically stable. 24 Hour events - Strict NPO with concern for high volume aspiration, YARN TEXTURING MACHINE OPERATOR signed off for now - Overnight worsening hypoxia requiring transition to HFNC this AM at 20L up to 80% - Received lasix 20 mg IV - Seen by EGS with plan for PEG - Comfortable, pain controlled, occasional headache Code Status Code Status Full Code Active Diagnosis with Assessment & Plan Priority Class POA Head/Neck Hypothyroidism Unknown Current Assessment & Plan - levothyroxine IV 25 mcg daily Cardiovascular HTN (hypertension) Unknown Current Assessment & Plan - hold home triamterene/HCTZ in periop period in setting of hypotension Hypotension Unknown Current Assessment & Plan Hypotension overnight 12/04 worsening after epidural placed. Initially switched to sufenta nil. Bedside echo with evidence of hypovolemia, no tamponade physiology. Fluid responsive. N ow improving and off phenylephrine. - Continue to monitor Respiratory/Chest NSCLC Unknown Current Assessment & Plan - continue home Qvar - chest tube to water seal, monitor output - lovenox ppx - daily CXR Aspiration pneumonitis (HCC) Current Assessment & Plan Increasing oxygen requirements overnight from 12/05 to 12/06 with worsening ground glass op acities in right lung with concern for aspiration in setting of dysphagia. - Strict NPO - daily CXR - monitor for fevers and worsening respiratory status - pulmonary toilet, IS Acute respiratory distress syndrome (ARDS) (HCC) Unknown Digestive GERD (gastroesophageal reflux disease) Unknown Current Assessment & Plan - famotidine 20mg IVP Q12H At risk for Dysphagia Unknown Current Assessment & Plan S/p sacrifice of L recurrant laryngeal nerve with node resection now w concern for aspira tion event - Strict NPO - ENT performed CLINICAL APPEALS RN scope with evidence of left vocal cord dysfunction Per ENT: Injection laryngoplasty can be done in our clinic with Dr. Kaplan next week as an i npatient if transportation is arranged. If patient is discharged at an earlier date, this ca n also be done during an outpatient visit - Consulted EGS for placement of PEG tube - Plan for OR today with EGS, pre-op TTE today, patient remains NPO Hematologic Postoperative anemia due to acute blood loss Unknown Current Assessment & Plan - monitor chest tube output - CBC daily Leukocytosis Unknown Current Assessment & Plan Suspect secondary to aspiration pneumonitis. No fevers currently. - Consider antibiotics if patient develops fever Endocrine/Metabolic Hyperglycemia Unknown Current Assessment & Plan - Continue SSI Other Acute post-operative pain Unknown Current Assessment & Plan Epidural not placed pre-op because of staged approach to procedure. Pt received heparin d uring procedure because of PA involvement. APS placed epidural 4 hrs after heparin. - TEA per APS w bupivicaine/HM (changed from fentanyl) - Rectal tylenol PRN while NPO - Lidocaine patches Chronic pain Unknown Code Status: FULL Physical Exam vitals and nursing note reviewed. Constitutional: She appears well-developed and well-nourished no distress HENT: Head:normocephalic and atraumatic Neck: neck supple Cardiovascular: normal rate and regular rhythm Incisions c/d/i. Chest tube with serosanguin ous fluid. Pulmonary: effort normal. No respiratory distress. Decreased breath sounds on left upper lo be. Rales on right. Abdominal: Abdomen is soft. Neurological: She is alert and oriented to person, place, and time. Skin: Skin is warm and dry. Psychiatric: She has a normal mood and affect. Her behavior i s normal. Service Cardiac Surgery [1048] Admitting provider and ICU treatment team members Provider Role Specialty Pager Manoj Kumar MD Admitting Provider Cardiothoracic Surgery [id number] Jama Zhao MD ICU PM Attending Anesthesiology [id number] Quality section FAST HUG Feeding: NPO Analgesia: Epidural (HM-bupiv), rectal tylenol, lido patches Sedation: None Thromboprophylaxis: Lovenox Head of Bed: Head of Bed >30 degrees Ulcer Prophylaxis: Famotidine Glycemic Control: insulin sliding Created by Sonya Barron MD Author:Sonya Barron MD [address] [address] [place] [email or web address] signed by Dennis Myrick MD at 12/07/2018 1:48 PM Dennis Good MD - 12/07/2018 10:19 AM PDTFormatting of this note might be differen t from the original. Cardiovascular Intensive Care Unit Attending Progress Note CVICU D2 Assigned #[id number] ICU Admission Reason Most Recent Value ICU Admission reason post-op management filed at 12/04/2018 1535 Documentation Date Row Name 12/04/18 1534 Day of Procedure 12/04/18 Thoracic Thoracic Thoracic Procedures VATS;Thoracotomy Thoracotomy Lobectomy Lobectomy L upper lobe Flex bronch, EBUS, mediastinoscopy, left VATS, left thoracotomy, leftt upper lobectomy, lef t upper lobe sleeve bronchoplasty, left PA sleeve resection and reconstruction with bovine p ericardial patch, mediastinal lymph node dissection Hospital admission dx: Neoplasm 3 Days in ICU 3 Days in Hospital Medical Decision Making 68f, Critically ill, S/P Flex bronch, EBUS, mediastinoscopy, left VATS, left thoracotomy, leftt upper lobectomy, left upper lobe sleeve bronchoplasty, left PA sleeve resection and re construction with bovine pericardial patch, mediastinal lymph node dissection POD 3. Require d high flow nasal cannula overnight for hypoxemia, now 100% Spo2 on 80% high flow. Remains a t risk for development of worsening ARDS. Plan: - Multimodal analgesia - Pain team maintain Epidural, pt is comfortable - plan for PEG tube today. - - Glycemic control - DVT PPX with lovenox - Remains in ICU Hospital Problems Priority POA Head/Neck Hypothyroidism Unknown Cardiovascular HTN (hypertension) Unknown Hypotension Unknown Respiratory/Chest NSCLC Unknown Hypoxia Unknown Acute respiratory distress syndrome (ARDS) (HCC) Unknown Digestive GERD (gastroesophageal reflux disease) Unknown At risk for Dysphagia Unknown Hematologic Postoperative anemia due to acute blood loss Unknown Leukocytosis Unknown Endocrine/Metabolic Hyperglycemia Unknown Other Acute post-operative pain Unknown Chronic pain Unknown Service Cardiac Surgery [1048] Admitting provider and ICU treatment team members Provider Role Specialty Pager Manoj Kumar MD Admitting Provider Cardiothoracic Surgery [id number] Jama Zhao MD ICU PM Attending Anesthesiology 72167 Code Status Code Status Full Code I have spent a total of 35 minutes in the direct care and management of this patient indepe ndent of any time spent teaching or performing any separately billable procedures. I reviewe d the documented findings, all data and the recent imaging available. I saw and evaluated t he patient at the bedside together with Dr. Barron.Please see their note for details. I agree with the assessment and plan as described in the resident's note with the following excepti ons/additions as noted. EPIC DEPARTMENT: [facility] ICU CARDIAC Place of Service:- Inpatient CSN: [id number] Suggested Modifier: GC - Resident Involved Suggested CPT: TO FIRE CHIEF'S AIDE Dennis Myrick MD Author:Dennis Myrick MD [address] [id number] signed by Dennis Myrick MD at 12/07/2018 10:19 AM Concha Gonzales MD - 12/07/2018 9:49 AM PDTFormatting of this note might be differe nt from the original. Thoracic Surgery Brief Inpatient Progress Note Patient name: SUSSY ALLRED Attending: Manoj Kumar MD Procedure day: 3 Procedure: Left thoracotomy, CODY lobectomy with bronchial and PA reconstruction 24 hour events: - made strict NPO yesterday with concern for aspiration, YARN TEXTURING MACHINE OPERATOR signed off for now - overnight worsening hypoxia requiring transition to HFNC this AM at 20L - received 20 mg IV lasix - seen by EGS with plan for enteral tube feeding access - comfortable, minimal to no respiratory distress - reported infrequent intermittent air leak, no demonstrated on exam today 24 hour vitals: Last 24 hour min/max Temp: 37 C (98.6 F) Temp Min: 36.5 C (97.7 F) Max: 37.1 C (98.8 F) Pulse: 88 Pulse Min: 73 Max: 104 Resp: 19 Resp Min: 13 Max: 31 BP: 133/61 BP Min: 90/55 Max: 141/74 SpO2: 96 % SpO2 Min: 77 % Max: 100 % Body mass index is 24.29 kg/m. Chest tube output: 320 mL serosanguinous, WS, no air leak Brief Exam: NAD, minimal increase in WOB with exertion, not at rest On 20L HFNC AOX3 Right lung with diffuse crackles and bilaterally diminished breath sounds RRR S/NT/ND MAEW Wound healing without complication Assessment: Sussy Allred is a 68 y.o. female now POD#3 s/p left thoracotomy and CODY lob ectomy with bronchial and PA reconstruction. Due to the location of her tumor, concern for L recurrent laryngeal nerve injury, and L vocal cord with minimal mobility on ENT eval. CXR findings and respiratory decline concerning for aspiration pneumonitis, some worsening of GGO on CXR today consistent with evolution of pulmonary process, though she clinically do es not have significant respiratory distress. Remains hypoxic. We discussed with her surgical enteral access (not transnasal) and also the risks of underg oing anesthesia and intubation with her current lung function. She understands and accepts t he risk of prolonged intubation post-anesthesia. Plan ([id number] issues): - Aspiration pneumonitis: strict NPO, aggressive pulmonary toilet, continue RT and neb dominick tments, follow closely for signs concerning for ARDS, consider abx +/-steroids if decline, a ppreciate critical care medicine management - Continue chest tube to water seal - L recurrent laryngeal injury: strict NPO, aspiration precautions, plan for enteral feedin g access with EGS. No DHT or NG tube as these will stent open LES and risk further aspiratio n - Post-op pain: epidural management per APS, appreciate them following - Prophylaxis: enoxaparin ppx - Other: continue ambulation and PT - Dispo: continues to require ICU-level care for respiratory status Seen and discussed with Dr. Chaya Kim MD [facility] General Surgery Pager #[phone] Gayle Mayfield - 12/07/2018 9:21 AM PDTTransthoracic echocardiogram completed. Final report to suzy montague. Dennis Duvall PA-C - 12/07/2018 5:34 AM PDT Cardiovascular Intensive Care Unit Clinical Update Note Team: D2 Team Pager: [phone] Attending: Cece Pt Name: Sussy Allred ID: Abbreviated HPI Update: 1. Strict NPO for Aspiration a. Plan for PEG 12/07/2018 2. Hypoxia a. CXray pending b. Hi Familia NC for SpO2>92% c. ECHO for hypoxia & murmur d. Lasix 20mg IVP S: Pain. Claustrophobia c O2 mask O: BP 93/57 | Pulse 79 | Temp 36.5 C (97.7 F) | Resp 15 | Ht 1.626 m (5' 4") | Wt 65. 9 kg (145 lb 4.5 oz) | SpO2 95% | BMI 24.94 kg/m | BSA 1.73 m Pain Score: 8 Physical Exam vitals reviewed. Constitutional: She appears well-developed and well-nourished HENT: Head:normocephalic and atraumatic Eyes: EOM normal pupils are equal, round, and reactive to light Neck: normal range of motion neck supple Cardiovascular: normal rate, regular rhythm and normal heart sounds Pulmonary: effort normal. R Rhonchi Abdominal: Abdomen is soft. Neurological: She is alert and oriented to person, place, and time. Skin: Skin is warm and dry. Psychiatric: She has a normal mood and affect. normal thought content and judgment normal. Her behavior is normal. Assessment and Plan: Hospital Problems Priority POA Head/Neck Hypothyroidism Unknown Cardiovascular HTN (hypertension) Unknown Hypotension Unknown Respiratory/Chest NSCLC Unknown Hypoxia Unknown Digestive GERD (gastroesophageal reflux disease) Unknown At risk for Dysphagia Unknown Hematologic Postoperative anemia due to acute blood loss Unknown Leukocytosis Unknown Endocrine/Metabolic Hyperglycemia Unknown Other Acute post-operative pain Unknown Chronic pain Unknown I have spent a total of 37 Minutes independently in the direct care and management of th is patient.Time is independent of any time spent teaching or performing any separately billa ble procedures. I reviewed the documented findings, all data and the recent imaging availabl e. Date of Service: 12/07/2018 DEBBIE Lay PA-C Gabriel Owens, PA-C Rehana Clemens MD,MPH - 12/07/2018 12:09 AM PDT . DEPARTMENT OF SURGERY Emergency General Surgery Admission Date: 12/04/2018 ( LOS: 3 days ) Attending Provider: Derrick Handley MD Interval History and Events: -NAEON -No further questions regarding PEG BP 95/55 | Pulse 101 | Temp 36.5 C (97.7 F) | Resp 24 | Ht 1.626 m (5' 4") | Wt 65 .9 kg (145 lb 4.5 oz) | SpO2 94% | BMI 24.94 kg/m | BSA 1.73 m Intake/Output 12/05 0701 - 12/06 0700 12/06 07 - 12/07 0700 I.V. 595 834 IV Piggyback 260 Total Intake 595 1094 Urine (mL/kg/hr) 800 (0.5) 585 (0.4) Drains (mL/kg/hr) 820 (0.5) 250 (0.2) Total Output(mL/kg) 1620 (24.6) 835 (12.7) Net -1025 +259 General: Sitting up comfortably in bed HEENT: Purplish discoloration of skin over bridge of nose Respiratory: Unlabored on 4L NC Cardiovascular: HRRR Chest: Left CT in place with SS output Abdomen: Benign : Deferred Extremities: WWP Neuro: No focal deficit Data No new labs Assessment and Plan: Sussy Allred is a 68 y.o. female with adenocarcinoma of the left lung s/p L VATS/LULobe ctomy with mediastinoscopy with intentional sacrifice of the L recurrent laryngeal nerve c/b dysphagia and aspiration. She has been indicated for PEG tube placement for enteral access for nutrition. Will proceed with PEG today. -To OR today for PEG Dr. Handley is the attending of record for this pt encounter Signed: Mariana Dhaliwal MD,MPH General Surgery, PGY-3 EGS consult resident pager: [phone] Associated attestation - Derrick Handley MD - 12/08/2018 10:17 AM PDTATTENDING ADDENDUM I saw and examined Sussy Allred with the residents on 12/07 and agree with the assessmen t and plan as outlined in this note and participated in the planning of care. Derrick Handley MD FACS basic sciences dean Division of Trauma, Critical Care, and Acute Care Surgery [phone] Dennis Myrick MD - 12/06/2018 11:01 AM PDTFormatting of this note might be different f rom the original. Cardiovascular Intensive Care Unit Attending Progress Note CVICU D2 Assigned #[id number] ICU Admission Reason Most Recent Value ICU Admission reason post-op management filed at 12/04/2018 153 Documentation Date Row Name 12/04/18 1534 Day of Procedure 12/04/18 Thoracic Thoracic Thoracic Procedures VATS;Thoracotomy Thoracotomy Lobectomy Lobectomy L upper lobe Flex bronch, EBUS, mediastinoscopy, left VATS, left thoracotomy, leftt upper lobectomy, lef t upper lobe sleeve bronchoplasty, left PA sleeve resection and reconstruction with bovine p ericardial patch, mediastinal lymph node dissection Hospital admission dx: Neoplasm 2 Days in ICU 2 Days in Hospital Medical Decision Making 68f, Critically ill, S/P Flex bronch, EBUS, mediastinoscopy, left VATS, left thoracotomy, leftt upper lobectomy, left upper lobe sleeve bronchoplasty, left PA sleeve resection and re construction with bovine pericardial patch, mediastinal lymph node dissection POD 2. Concern this am for massive aspiration on chest xray. Hypotension has resolved. At risk for develop ment of ARDS given her aspiration Plan: - Multimodal analgesia - Pain team maintain Epidural, pt is comfortable - pt will need likely watermelon inspector enteral access. Has requested surgical feeding tube vs DHT. Will address with thoracic service - Glycemic control - DVT PPX with lovenox Remains in ICU Hospital Problems Priority POA Head/Neck Hypothyroidism Unknown Cardiovascular HTN (hypertension) Unknown Hypotension Unknown Respiratory/Chest NSCLC Unknown Hypoxia Unknown Digestive GERD (gastroesophageal reflux disease) Unknown At risk for Dysphagia Unknown Hematologic Postoperative anemia due to acute blood loss Unknown Leukocytosis Unknown Endocrine/Metabolic Hyperglycemia Unknown Other Acute post-operative pain Unknown Chronic pain Unknown Service Cardiac Surgery [1048] Admitting provider and ICU treatment team members Provider Role Specialty Pager Manoj Kumar MD Admitting Provider Cardiothoracic Surgery [id number] [place] necessity reviewed: Plan to DC today I have spent a total of 38 minutes in the direct care and management of this patient indepe ndent of any time spent teaching or performing any separately billable procedures. I reviewe d the documented findings, all data and the recent imaging available. I saw and evaluated t he patient at the bedside together with Dr. Barron.Please see their note for details. I agree with the assessment and plan as described in the resident's note with the following excepti ons/additions as noted. EPIC DEPARTMENT: [facility] ICU CARDIAC Place of Service:- Inpatient CSN: [id number] Suggested Modifier: GC - Resident Involved Suggested CPT: TO FIRE CHIEF'S AIDE Dennis Myrick MD Author:Dennis Myrick MD [address] [id number] signed by Dennis Myrick MD at 12/06/2018 11:01 AM Sharifa YBARRA, Silvana - 12/06/2018 9:21 AM PDTThoracic surgery progress note No acute issues overnight BP 136/73 | Pulse 93 | Temp 36.8 C (98.2 F) | Resp 18 | Ht 1.626 m (5' 4") | Wt 65 .9 kg (145 lb 4.5 oz) | SpO2 97% | BMI 24.94 kg/m | BSA 1.73 m NAD NLB Abd soft, NT Neck incision clean and dry Dressings clean and dry CT in place with SS output, no air leak CT 820 ml UOP 820 ml CXR reviewed. New right lung groundglass opacities most consistent with large volume aspiration. 68 F post left thoracotomy, CODY lobectomy, with bronchial and PA reconstructions Epidural mgmt per APS Continue NPO, continue speech eval Aspiration pneumonitis: respiratory toilet, expectant mgmt IS, respiratory toilet CT to water seal Ambulate, DVT ppx Continued ICU care Seen with Dr Stacy Quevedo MD Cardiothoracic Surgery Fellow Pager: [phone] Sonya Li MD - 11/18 7:50 AM PDT Cardiovascular Intensive Care Unit Team Progress Note CVICU D2 Assigned #[id number] ICU Admission Reason Most Recent Value ICU Admission reason post-op management filed at 12/04/2018 3134 Documentation Date Row Name 12/04/18 1534 Day of Procedure 12/04/18 Thoracic Thoracic Thoracic Procedures VATS;Thoracotomy Thoracotomy Lobectomy Lobectomy L upper lobe Flex bronch, EBUS, mediastinoscopy, left VATS, left thoracotomy, leftt upper lobectomy, lef t upper lobe sleeve bronchoplasty, left PA sleeve resection and reconstruction with bovine p ericardial patch, mediastinal lymph node dissection Admission dx: Neoplasm 2 Days in ICU 2 Days in Hospital 24 Hour events - Continued dysphagia, ENT scope with evidence of L vocal cord dysfunction - Comfortable on epidural - Hypotension improved, weaned off phenylephrine gtt, BPs now 120-140s - New leukocytosis - Worsening hypoxia requiring up to 6L O2 with new R-sided ground glass opacities concerning for aspiration Code Status Code Status Full Code Active Diagnosis with Assessment & Plan Priority Class POA Head/Neck Hypothyroidism Unknown Current Assessment & Plan - levothyroxine IV 35 mcg daily (70% of home PO dose of 50 daily) Cardiovascular HTN (hypertension) Unknown Current Assessment & Plan - hold home triamterene/HCTZ in periop period in setting of hypotension Hypotension Unknown Current Assessment & Plan Hypotension overnight 12/04 worsening after epidural placed. Initially switched to sufenta nil. Bedside echo with evidence of hypovolemia, no tamponade physiology. Fluid responsive. N ow improving and off phenylephrine. - Continue to monitor Respiratory/Chest NSCLC Unknown Current Assessment & Plan - continue home Qvar - chest tube to water seal, monitor output - lovenox ppx - daily CXR Hypoxia Unknown Current Assessment & Plan Increasing oxygen requirements overnight from 12/05 to 12/06 with worsening ground glass op acities in right lung with concern for aspiration in setting of dysphagia. - Strict NPO - daily CXR - consider gentle diuresis - monitor for fevers and worsening respiratory status - pulmonary toilet, IS Digestive GERD (gastroesophageal reflux disease) Unknown Current Assessment & Plan - famotidine 20mg IVP Q12H At risk for Dysphagia Unknown Current Assessment & Plan S/p sacrifice of L recurrant laryngeal nerve with node resection now w concern for aspira tion event - Strict NPO - Discuss with thoracic surgery, DHT vs eventual Gtube - ENT performed CLINICAL APPEALS RN scope with evidence of left vocal cord dysfunction Per ENT: Injection laryngoplasty can be done in our clinic with Dr. Kaplan next week as an i npatient if transportation is arranged. If patient is discharged at an earlier date, this ca n also be done during an outpatient visit Hematologic Postoperative anemia due to acute blood loss Unknown Current Assessment & Plan - monitor chest tube output - CBC daily - Recheck CBC later this morning given drop in H/H Leukocytosis Unknown Current Assessment & Plan Suspect secondary to aspiration pneumonitis. No fevers currently. - Consider antibiotics if patient develops fever Endocrine/Metabolic Hyperglycemia Unknown Current Assessment & Plan - Continue SSI Other Acute post-operative pain Unknown Current Assessment & Plan Epidural not placed pre-op because of staged approach to procedure. Pt received heparin d uring procedure because of PA involvement. APS placed epidural 4 hrs after heparin. - TEA per APS w bupivicaine/fentanyl - IV tylenol while NPO - Lidocaine patches Chronic pain Unknown Code Status: FULL Physical Exam vitals and nursing note reviewed. Constitutional: She appears well-developed and well-nourished HENT: Head:normocephalic and atraumatic Neck: normal range of motion neck supple Pulmonary: effort normal. No respiratory distress. Rales on right anteriorly. Decreased nilay ath sounds on left anteriorly. Chest tube with serosanguinous fluid output. On 6L O2. Abdominal: Abdomen is soft. Neurological: She is alert and oriented to person, place, and time. Skin: Skin is warm and dry. Service Cardiac Surgery [1048] Admitting provider and ICU treatment team members Provider Role Specialty Pager Manoj Kumar MD Admitting Provider Cardiothoracic Surgery [id number] Quality section A-Line necessity reviewed: Plan to DC today Doty necessity reviewed: Plan to DC today FAST HUG Feeding: NPO Analgesia: epidural, Tylenol, lidocaine patches Sedation: None Thromboprophylaxis: Lovenox Head of Bed: Head of Bed >30 degrees Ulcer Prophylaxis: Famotidine Glycemic Control: insulin sliding Created by Sonya Barron MD Author:Sonya Barron MD [facility] [address] [place] [id number] signed by Dennis Myrick MD at 12/06/2018 10:57 AM Robin Nevarez MD - 12/06/2018 7:02 AM PDTFormatting of this note might be diff erent from the original. INPATIENT ADULT PAIN SERVICE NEURAXIAL BLOCK PROGRESS NOTE 12/06/2018 Author: ROBIN FLORES MD Pain Service Attending Physician: Louie Moura MD Epidural day # 2. POD# 2. Status post: Status post: Flexible bronchoscopy, endobronchial ultrasound needle a spiration biopsy level 7 and 4 L, cervical mediastinoscopy, biopsy of level 7 and 4R lymph n odes, left thoracoscopy, left muscle-sparing thoracotomy, left upper lobectomy with sleeve r esection of airway and pulmonary artery with pulmonary artery plasty with pericardial patch, mediastinal lymph node dissections level 5, 6, 7, 9, L, 4L and hilar lymph nodes. Interval events since last APS visit: Hypotension resolved. Off vasopressor infusion. ENT e valuation revealed minimally mobile LEFT true vocal cord. 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 Ms. Allred complains of left sided chest pain, left sided hip pain, and central neck pain. Her pain score at rest is 6/10. With activity, her pain score is 8/10. Specific activitie s that exacerbate Ms. Allred's pain include deep breathing and coughing. Ms. Allred is partia lly satisfied with current level of pain. History of chronic or preoperative pain: yes: Typical intensity 6/10 Prior to hospitalization: Hydrocodone as hydrocodone/acetaminophen 7.5/500: 4-6/day, Alpr azolam 0.25mg PRN ROS/Side Effects: Aspiration Nausea/Vomiting: none Pruritus: mild Numbness/Weakness: none Low BP: none Dizziness: none Sedation: none Activity level: Ambulatory Diet: NPO/sips/ice chips Medications: Current Facility-Administered Medications Medication Dose Route Frequency Last Rate beclomethasone (QVAR) 40 mcg/actuation inhaler 1 puff 1 puff inhalation BID enoxaparin (LOVENOX) injection 40 mg 40 mg subcutaneous QPM famotidine (PEPCID) injection 20 mg 20 mg intravenous BID lidocaine (LIDODERM) 5 % patch 1 patch 1 patch transdermal Q24H Current Facility-Administered Medications Medication Dose Route Frequency Last Rate albuterol 0.083% (PROVENTIL,VENTOLIN) 2.5 mg /3 mL (0.083 %) nebulizer solution 2.5 mg 2.5 mg inhalation Q6H PRN bisacodyl (DULCOLAX) suppository 10 mg 10 mg rectal DAILY PRN nalbuphine (NUBAIN) injection 2.5 mg 2.5 mg intravenous Q15MIN PRN naloxone (NARCAN) injection intravenous PRN ondansetron (ZOFRAN) injection 4 mg 4 mg intravenous Q8H PRN prochlorperazine (COMPAZINE) injection 5-10 mg 5-10 mg intravenous Q6H PRN Current Facility-Administered Medications Medication Dose Route Frequency Last Rate bupivacaine (PF) 0.05 %, fentaNYL 5 mcg/mL in NaCl 0.9 % (NS) epidural infusion epidu ral CONTINUOUS 8 mL/hr at 12/06/18 0600 insulin regular in NaCl 0.9% IV infusion (1 unit/mL) 0.25-50 Units/hr intravenous CONT INUOUS lactated ringers IV 50 mL/hr intravenous CONTINUOUS Stopped (12/04/181999) Type: Epidural Rate: 8 mL/hour Anticoagulants: Enoxaparin 40mg subcutaneous daily, last dose given yesterday at 2030 hrs. Lab Results Component Value Date INRPT 0.93 11/26/2018 PLT 233 12/06/2018 APTT 25.2 (L) 12/04/2018 Opioids: None Other analgesics: Acetaminophen IV 2000mg/24hrs Other psychoactive medications: Lorazepam IV 0.5mg/24hrs Physical Exam: Last Vitals:BP 145/79 | Pulse 90 | Temp 36.8 C (98.2 F) | Resp (!) 35 | Ht 1.626 m (5' 4") | Wt 65.9 kg (145 lb 4.5 oz) | SpO2 96% | BMI 24.94 kg/m | BSA 1.73 m 24 hour Vitals min/max : Systolic (24hrs), Av , Min:86 , Max:156 Diastolic (24hrs), Av, Min:60, Max:101 Pulse Min: 72 Max: 95 Temp Min: 36.3 C (97.3 F) Max: 36.8 C (98.2 F) Resp Min: 13 Max: 35 SpO2 Min: 89 % Max: 100 % General Appearance and Neurological Examination: Mental Status: Alert Orientation: Oriented Sensory Level: intact Motor: bilateral lower extremity(ies) -- No block: full flexion and extension of hip, knee and foot Neuraxial Catheter: Location: T2-T6;depth at skin 10 cm Clinically significant migration since placement? No Dressing: Intact Exit Site: Site with dried blood. Required reinforcement. Insertion site exposed? No Chest tube in place. Assessment: Ms. Allred rates her pain relief as good. Is improved from previously. My personal assessment is concordant with this evaluation Doty status: Epidural: at thoracic level; If Doty is in place, it may be removed if deem ed appropriate by primary care team Diagnosis: 1. Acute post-thoracotomy pain 2. NSCLC 3. Epidural analgesia 4. Post-operative hypotension - resolved My treatment plan is: 1. Continue epidural infusion, titrate as per protocol. Changed to hydromorphone containing solution this AM with improvement in pain. 2. Continue scheduled APAP IV while NPO 3. Lidoderm patches I discussed our findings and recommendations with primary care team provider CVICU team. Robin Flores MD Anesthesiology/CCM Fellow APS Team Pager [phone] Associated attestation - Louie Moura MD - 12/07/2018 2:59 PM PDTI saw and evaluated mallika Allred with trainee: Dr. Flores . I have reviewed the trainee's note and I agree with the plan of care as documented. Louie Moura MD Adult Acute Pain Service [facility] Pager#: [phone] Email: [email or web address] - 12/05/2018 9:06 PM PDTFormatting of this note mi ght be different from the original. Cardiovascular Intensive Care Unit Clinical Update Note Team: D2 Team Pager: [phone] Attending: Layla Pt Name: Sussy Allred ID: Abbreviated HPI Update: 1. Hypotension a. Impoved 12/05/2018 after 2L crystalloid b. UO improved with IVF 2. Recurret Laryngeal nerve a. ENT Eval complete b. Pending re eval by YARN TEXTURING MACHINE OPERATOR for swallow this sim S: Pain, drowsy O: BP 123/84 | Pulse 79 | Temp 36.4 C (97.5 F) | Resp 23 | Ht 1.626 m (5' 4") | Wt 58 kg (127 lb 13.9 oz) | SpO2 96% | BMI 21.95 kg/m | BSA 1.62 m Pain Score: 6/10 Physical Exam Constitutional: She appears well-developed and well-nourished HENT: Head:normocephalic and atraumatic Eyes: EOM normal pupils are equal, round, and reactive to light Neck: normal range of motion neck supple Cardiovascular: normal rate, regular rhythm, normal heart sounds and intact distal pulses Pulmonary: effort normal and breath sounds normal. Abdominal: Abdomen is soft. Neurological: She is alert. Skin: Skin is warm and dry. Assessment and Plan: Hospital Problems Priority POA Head/Neck Hypothyroidism Unknown Cardiovascular HTN (hypertension) Unknown Hypotension Unknown Respiratory/Chest NSCLC Unknown Digestive GERD (gastroesophageal reflux disease) Unknown At risk for Dysphagia Unknown Hematologic Postoperative anemia due to acute blood loss Unknown Endocrine/Metabolic Hyperglycemia Unknown Other Acute post-operative pain Unknown Chronic pain Unknown I have spent a total of 12 Minutes independently in the direct care and management of th is patient.Time is independent of any time spent teaching or performing any separately billa ble procedures. I reviewed the documented findings, all data and the recent imaging availabl e. Date of Service: 12/05/2018 DEBBIE Lay PA-C Gabriel Owens, PA-C Sonya Li MD - 12/05/2018 12:03 PM PDT Cardiovascular Intensive Care Unit Team Progress Note CVICU D2 Assigned #[id number] ICU Admission Reason Most Recent Value ICU Admission reason post-op management filed at 12/04/2018 1535 Documentation Date Row Name 12/04/18 1534 Day of Procedure 12/04/18 Thoracic Thoracic Thoracic Procedures VATS;Thoracotomy Thoracotomy Lobectomy Lobectomy L upper lobe Flex bronch, EBUS, mediastinoscopy, left VATS, left thoracotomy, leftt upper lobectomy, lef t upper lobe sleeve bronchoplasty, left PA sleeve resection and reconstruction with bovine p ericardial patch, mediastinal lymph node dissection Admission dx: Neoplasm 1 Days in ICU 1 Days in Hospital 24 Hour events - Admitted to ICU s/p left thoracotomy, CODY lobectomy, with bronchial and PA reconstructions - Diagnosed with Stage III NSCLC - Dysphagia continues s/p resection L recurrent laryngeal nerve - Painful overnight, epidural placed - Continued hypotension overnight down to high 60s-70s systolic, continues on phenylephrine gtt Code Status Code Status Full Code Active Diagnosis with Assessment & Plan Priority Class POA Head/Neck Hypothyroidism Unknown Current Assessment & Plan - restart home levothyroxine 50mcg PO DAILY after clear by YARN TEXTURING MACHINE OPERATOR Cardiovascular HTN (hypertension) Unknown Current Assessment & Plan - hold home triamterene/HCTZ in periop period in setting of hypotension Hypotension Unknown Current Assessment & Plan Hypotension overnight 12/04 worsening after epidural placed. Initially switched to sufenta nil. Bedside echo with evidence of hypovolemia, no tamponade physiology. - 2L overnight crystalloid (w initial improvement), 250 ml 5% albumin - phenylephrine 0.6 -> 1.0 -> 1.2 - continued fluid resuscitation, 2L LR this morning Respiratory/Chest NSCLC Unknown Current Assessment & Plan - continue home Qvar - chest tube to suction - lovenox tonight for prophylaxis if cleared by CT surg Digestive GERD (gastroesophageal reflux disease) Unknown Current Assessment & Plan - famotidine 20mg IVP Q12H - restart PO PPI when clear by YARN TEXTURING MACHINE OPERATOR At risk for Dysphagia Unknown Current Assessment & Plan Resection of L recurrant laryngeal nerve with node - strict NPO - speech therapy consult - ENT consult today per Thoracic surgery request - depending on evaluation of swallow, may need DHT Hematologic Postoperative anemia due to acute blood loss Unknown Current Assessment & Plan - monitor chest tube output - CBC daily Endocrine/Metabolic Hyperglycemia Unknown Current Assessment & Plan - Continue SSI Other Acute post-operative pain Unknown Current Assessment & Plan Epidural not placed pre-op because of staged approach to procedure. Pt received heparin d uring procedure because of PA involvement. APS placed epidural 4 hrs after heparin if PTT no rmal. The BP was low after bolus test dose. - TEA per APS, switched to sufentanil due to hypotension, now back to bupivicaine/fentanyl for better pain control - IV tylenol while NPO Chronic pain Unknown Code Status: FULL Physical Exam vitals and nursing note reviewed. Constitutional: She appears well-developed and well-nourished HENT: Head:normocephalic and atraumatic Neck: neck supple Cardiovascular: normal rate and regular rhythm Pulmonary: No respiratory distress. Chest tube with serosanguinous drainage Abdominal: Abdomen is soft. Neurological: She is alert and oriented to person, place, and time. Skin: Skin is warm and dry. Incision c/d/i Psychiatric: She has a normal mood and affect. Service Cardiac Surgery [1048] Admitting provider and ICU treatment team members Provider Role Specialty Pager Manoj Kumar MD Admitting Provider Cardiothoracic Surgery [id number] Quality section A-Line necessity reviewed: Unxn-eu-gwrl blood pressure monitoring Doty necessity reviewed: Hourly/Accurate measurement of urinary output for clinical manage ment of critically ill patients FAST HUG Feeding: NPO Analgesia: Tylenol, epidural (bupiv-fent) Sedation: None Thromboprophylaxis: SCDs Head of Bed: Head of Bed >30 degrees Ulcer Prophylaxis: Famotidine Glycemic Control: insulin sliding Created by Sonya Barron MD Author:Sonya Barron MD [address] [id number] signed by Dennis Myrick MD at 12/06/2018 7:16 AM Ava Abraham, CF-YARN TEXTURING MACHINE OPERATOR - 12/05/2018 10:00 AM PDTENT SPEECH PATHOLOGY-INPATIENT NOTE REASON FOR ADMISSION: Sussy Allred is a 68 y.o. Female s/p flex bronch, EBUS, mediastin oscopy, left VATS, left thoracotomy, left upper lobectomy, left upper lobe sleeve bronchopla sty, left PA sleeve resection and reconstruction with bovine pericardial patch, mediastinal lymph node dissection. SUBJECTIVE: Patient seen this morning awake, sitting up, but somewhat sedate/lethargic. Nellie ivory has a nasal cannula in place but took it out briefly because she reported she "didn't n eed it" and did not respond to encouragement to replace it. Patient reports that her throat is somewhat painful and that she has been coughing some this morning, but much less than bef ore. Patient was eager to start PO trials as her throat and mouth are very dry. Per RN, she was very anxious this morning as she was newly diagnosed this morning with Stag e III cancer. She also has been struggling with pain and was hypotensive last night/this mor marga. She was given medication this morning to calm her nerves, and she has been calmer sinc e then but also lethargic. Patient's entered room near the end of the session and RN informed him of new diagnosis. History reviewed. No pertinent past medical history. No pertinent past surgical history. SOCIAL HISTORY: she is single and lives in [place], [place] DIETARY STATUS: Current diet: The patient is currently taking NPO. Feeding tube status: The patient does not have a feeding tube. COMMUNICATION/SPEECH STATUS: The patient communicates verbally. Speech quality was noted to be normal and Always understandable (PSS-Speech 100). Voice quality was clear of secretions but hoarse. In terms of respiration, the patient is receiving oxygen via a nasal cannula an d is intermittently short of breath. ORAL-MOTOR EXAMINATION: Dentition: Good repair. Velar elevation: normal. Tongue: Oral tongue strength was normal. Range of motion of the tongue was normal. Lips: Lip strength was normal. Range of motion of the lips was normal. Jaw: Range of motion of the jaw was normal. Jaw strength was normal. Laryngeal elevation: complete to palpation, had difficulty initiating at first. Cough strength: Moderately reduced. CLINICAL EVALUATION OF SWALLOWING: The patient was trialed with the following consistencies : ice chips x5, tspoons of water x3, tspoons of puree x3. Patient noted with consistent thro at clearing following each trial. Weak cough noted. No change in voice. Trialed L head turn with chin tuck. Patient reported this felt more comfortable, particularly with purees. This did not fully eliminate throat clearing with thin liquids. Patient's O2 levels ranged betwee n 90-91% (without nasal cannula) throughout today's session. Patient was intermittently shor t of breath. No change in voice. PATIENT EDUCATION & TREATMENT: Subsequent to the examination the findings were reviewed wit h the patient, , RN, and team. Also communicated results to IP rehab speech team, who will be taking over patient's care. Education was brief as and patient were crying over news of diagnosis, consoling ea ch other. Discussed rationale behind L head turn with chin tuck in the context of her recent surgeries and using oral swabs and ice chips for comfort only until re-evaluation later thi s afternoon. Patient and expressed appreciation and understanding. ASSESSMENT: 1. NPO + oral swabs and ice chips for comfort only. Patient demonstrating clinical s/sx of penetration/aspiration this morning with thin liquid. L head turn, chin tuck mildly effectiv e. 2. Breathing with nasal cannula, intermittent SOB. O2 sats ranged between 90-91%. 3. Functional verbal communication; hoarse vocal quality, no dysarthria. PLAN: IP Rehab Speech plans to reevaluate later this afternoon when less lethargic/sedate. Ava Allred M.S., CF-YARN TEXTURING MACHINE OPERATOR Speech-Language Pathology Fellow [facility] [phone] Pager: [phone] Dennis Good MD - 12/05/2018 8:57 AM PDT Cardiovascular Intensive Care Unit Attending Progress Note CVICU D2 Assigned #[id number] ICU Admission Reason Most Recent Value ICU Admission reason post-op management filed at 12/04/2018 1535 Documentation Date Row Name 12/04/18 1534 Day of Procedure 12/04/18 Thoracic Thoracic Thoracic Procedures VATS;Thoracotomy Thoracotomy Lobectomy Lobectomy L upper lobe Flex bronch, EBUS, mediastinoscopy, left VATS, left thoracotomy, leftt upper lobectomy, lef t upper lobe sleeve bronchoplasty, left PA sleeve resection and reconstruction with bovine p ericardial patch, mediastinal lymph node dissection Hospital admission dx: Neoplasm 1 Days in ICU 1 Days in Hospital Medical Decision Making Critically ill, S/P Flex bronch, EBUS, mediastinoscopy, left VATS, left thoracotomy, leftt upper lobectomy, left upper lobe sleeve bronchoplasty, left PA sleeve resection and reconst ruction with bovine pericardial patch, mediastinal lymph node dissection. NPO awaiting ENT e valuation given sacrifice of recurrent laryngeal nerve. Concern this am for hypotension requ iring phenylephrine and multiple fluids loads. Plan: - Multimodal analgesia - Pain team placed Epidural, would recommend keeping bupivacaine in epidural, pt appears hy povolemic on cardiac ultrasound. Will replete fluids now, obtain RVOT VTI after bolus to det ermine current volume status - ENT eval - Glycemic control - DVT PPX with lovenox Remains in ICU Hospital Problems Priority POA Head/Neck Hypothyroidism Unknown Cardiovascular HTN (hypertension) Unknown Respiratory/Chest NSCLC Unknown Digestive GERD (gastroesophageal reflux disease) Unknown At risk for Dysphagia Unknown Hematologic Postoperative anemia due to acute blood loss Unknown Other Acute post-operative pain Unknown Chronic pain Unknown Service Cardiac Surgery [1048] Admitting provider and ICU treatment team members Provider Role Specialty Pager Manoj Kumar MD Admitting Provider Cardiothoracic Surgery [id number] Code Status Code Status Full Code Quality section A-Line necessity reviewed: Gfzi-ds-modl blood pressure monitoring Doty necessity reviewed: Acute urinary retention or obstruction I have spent a total of 45 minutes in the direct care and management of this patient indepe ndent of any time spent teaching or performing any separately billable procedures. I reviewe d the documented findings, all data and the recent imaging available. I saw and evaluated t he patient at the bedside together with Dr. Barron.Please see their note for details. I agree with the assessment and plan as described in the resident's note with the following excepti ons/additions as noted. EPIC DEPARTMENT: [facility] ICU CARDIAC Place of Service:- Inpatient CSN: [id number] Suggested Modifier: GC - Resident Involved Suggested CPT: TO FIRE CHIEF'S AIDE Dennis Myrick MD Author:Dennis Myrick MD [address] [id number] signed by Dennis Myrick MD at 12/05/2018 8:57 AM Robin Nevarez MD - 12/05/2018 8:08 AM PDTFormatting of this note might be diff erent from the original. INPATIENT ADULT PAIN SERVICE NEURAXIAL BLOCK PROGRESS NOTE 12/05/2018 Author: ROBIN FLORES MD Pain Service Attending Physician: Kiya Santos MD Epidural day # 1. POD# 1. Status post: Flexible bronchoscopy, endobronchial ultrasound needle aspiration bio psy level 7 and 4 L, cervical mediastinoscopy, biopsy of level 7 and 4R lymph nodes, left th oracoscopy, left muscle-sparing thoracotomy, left upper lobectomy with sleeve resection of a irway and pulmonary artery with pulmonary artery plasty with pericardial patch, mediastinal lymph node dissections level 5, 6, 7, 9, L, 4L and hilar lymph nodes. Interval events since last APS visit: Epidural was placed last evening. This patient was s een in PACU where she was in 10/10 pain and hypertensive with BPs to 150s systolic. 2-3 hour s later in CVICU when sitting up patient for epidural noted to have BPs in 80s systolic. Thi s was prior to any intervention. Overnight with persistent hypotension, now on vasopressor. Pain has been significant in neck, is improved in chest, as in less sharp, however still tiffanie nful with deep breathing and coughing. ICU staff attending performed POCUS revealing kissing papillary muscles and small IVC sugge sting hypovolemia, this is consistent with stable hematocrit and post-operative hypovolemic state as primary cause of hypotension, with likely minor contribution from epidural analgesi a sympathectomy. Ms. Allred complains of left sided chest pain, left sided hip pain, and central neck pain. Her pain score at rest is 6/10. With activity, her pain score is 8/10. Specific activitie s that exacerbate Ms. Allred's pain include deep breathing and coughing. Ms. Allred is partia lly satisfied with current level of pain. History of chronic or preoperative pain: yes: Typical intensity 6/10 Prior to hospitalization: Hydrocodone as hydrocodone/acetaminophen 7.5/500: 4-6/day, Alpr azolam 0.25mg PRN ROS/Side Effects: ROS: Aspiration with water intake. Nausea/Vomiting: none Pruritus: mild Numbness/Weakness: none Low BP: severe Dizziness: none Sedation: none Activity level: Out of bed Diet: NPO Medications: Current Facility-Administered Medications Medication Dose Route Frequency Last Rate acetaminophen (OFIRMEV) IV 1,000 mg 1,000 mg intravenous Q6H Stopped (12/05/18 0009) beclomethasone (QVAR) 40 mcg/actuation inhaler 1 puff 1 puff inhalation BID enoxaparin (LOVENOX) injection 40 mg 40 mg subcutaneous QPM famotidine (PEPCID) injection 20 mg 20 mg intravenous BID lidocaine (LIDODERM) 5 % patch 1 patch 1 patch transdermal Q24H LORazepam (ATIVAN) injection 0.5 mg 0.5 mg intravenous ONCE sodium citrate-citric acid (BICITRA) 500-334 mg/5 mL liquid 30 mL 30 mL oral ONCE Current Facility-Administered Medications Medication Dose Route Frequency Last Rate albuterol 0.083% (PROVENTIL,VENTOLIN) 2.5 mg /3 mL (0.083 %) nebulizer solution 2.5 mg 2.5 mg inhalation Q6H PRN bisacodyl (DULCOLAX) suppository 10 mg 10 mg rectal DAILY PRN nalbuphine (NUBAIN) injection 2.5 mg 2.5 mg intravenous Q15MIN PRN naloxone (NARCAN) injection intravenous PRN ondansetron (ZOFRAN) injection 4 mg 4 mg intravenous Q8H PRN prochlorperazine (COMPAZINE) injection 5-10 mg 5-10 mg intravenous Q6H PRN Current Facility-Administered Medications Medication Dose Route Frequency Last Rate insulin regular in NaCl 0.9% IV infusion (1 unit/mL) 0.25-50 Units/hr intravenous CONT INUOUS lactated ringers IV 50 mL/hr intravenous CONTINUOUS Stopped (12/04/181999) PHENYLEPHrine 25 mg/250 mL (0.1 mg/mL) IV infusion (ADC) 0.1-2 mcg/kg/min intravenous CONTINUOUS 1 mcg/kg/min (12/05/18 0738) SUFentanil 2 mcg/mL in NaCl 0.9 % (NS) epidural infusion epidural CONTINUOUS Type: Epidural Rate: 6 mL/hour Anticoagulants: Enoxaparin 40mg subcutaneous daily, not yet given, scheduled to begin today Lab Results Component Value Date INRPT 0.93 11/26/2018 PLT 293 12/05/2018 APTT 25.2 (L) 12/04/2018 Opioids: None Other analgesics: Acetaminophen IV 1000mg Other psychoactive medications: Lorazepam 0.5mg Physical Exam: Last Vitals:BP (!) 76/53 | Pulse 81 | Temp 37.4 C (99.4 F) | Resp 14 | Ht 1.626 m ( 5' 4") | Wt 58 kg (127 lb 13.9 oz) | SpO2 100% | BMI 21.95 kg/m | BSA 1.62 m 24 hour Vitals min/max : Systolic (24hrs), Av , Min:69 , Max:138 Diastolic (24hrs), Av, Min:42, Max:85 Pulse Min: 75 Max: 118 Temp Min: 36.6 C (97.9 F) Max: 37.4 C (99.4 F) Resp Min: 11 Max: 26 SpO2 Min: 80 % Max: 100 % General Appearance and Neurological Examination: Mental Status: Alert Orientation: Oriented Sensory Level: intact Motor: bilateral lower extremity(ies) -- No block: full flexion and extension of hip, knee and foot Neuraxial Catheter: Location: T2-T6;depth at skin 10 cm Clinically significant migration since placement? Yes Dressing: Needed support Exit Site: Dried blood and mild leaking Insertion site exposed? No Chest tube in place. Assessment: Ms. Allred rates her pain relief as fair. My personal assessment is concordant with this evaluation Doty status: Epidural: at thoracic level; If Doty is in place, it may be removed if deem ed appropriate by primary care team Diagnosis: 1. Acute post-thoracotomy pain 2. NSCLC 3. Epidural analgesia 4. Post-operative hypotension My treatment plan is: 1. Continue epidural infusion, change to fentanyl to help with pain coverage of other areas of pain. 2. Continue scheduled APAP IV while NPO 3. Lidoderm patches I discussed our findings and recommendations with primary care team provider CVICU Team. Robin Flores MD Anesthesiology/CCM Fellow APS Team Pager [phone] Associated attestation - Kiya Cedillo MD,PhD - 12/05/2018 4:50 PM PDTI saw and evaluated patient Ms. Sussy Allred with Resident: Dr. Flores. I reviewed all detail s of Ms. Sussy Allred s epidural block management. I have reviewed the resident s no te and I agree with the plan of care as documented. I do not have additional comments. Kiya Santos MD,PhDSae YBARRA, Silvana - 12/05/2018 7:45 AM PDTThoracic surgery progress note Epidural placed yesterday with resultant hypotension requiring crystalloid boluses and pres sor Alert and awake this AM. Interactive. Thirsty. BP (!) 76/53 | Pulse 81 | Temp 37.4 C (99.4 F) | Resp 14 | Ht 1.626 m (5' 4") | Wt 58 kg (127 lb 13.9 oz) | SpO2 100% | BMI 21.95 kg/m | BSA 1.62 m NAD NLB Abd soft, NT Dressings clean and dry CT in place with SS output, no air leak CT 420 ml UOP 725 68 F post left thoracotomy, CODY lobectomy, with bronchial and PA reconstructions Epidural mgmt per APS Will need speech eval and ENT consult (L recurrent nerve was involved in AP window node and was resected) IS, respiratory toilet CT to water seal Ambulate, DVT ppx Continued ICU care Will discuss with Dr Stacy Quevedo MD Cardiothoracic Surgery Fellow Pager: [phone] ennis Allred PA-C - 3:00 AM PDT Cardiovascular Intensive Care Unit Clinical Update Note Team: D2 Team Pager: [phone] Attending: Layla Pt Name: Sussy Allred ID: Abbreviated HPI Update: Patient Active Problem List Diagnosis GERD (gastroesophageal reflux disease) Hypothyroidism Acute post-operative pain At risk for Dysphagia Postoperative anemia due to acute blood loss Chronic pain NSCLC HTN (hypertension) Patient Active Problem List Diagnosis Date Noted GERD (gastroesophageal reflux disease) 12/04/2018 Assessment & Plan Note: - famotidine 20mg IVP Q12H - restart PO PPI when clear by YARN TEXTURING MACHINE OPERATOR Hypothyroidism 12/04/2018 Assessment & Plan Note: - restart home levothyroxine 50mcg PO DAILY after clear by YARN TEXTURING MACHINE OPERATOR Acute post-operative pain 12/04/2018 Assessment & Plan Note: Epidural not placed pre-op because of staged approach to procedure. Pt received heparin d uring procedure because of PA involvement APS to placed epidural 4 hrs after heparin if PTT normal. The BP was low after bolus test d ose. - TEA per APS - IV tylenol while NPO At risk for Dysphagia 12/04/2018 Assessment & Plan Note: Resection of L recurrant laryngeal nerve with node - strict NPO - speech therapy consult - ENT consult tomorrow per Thoracic surgery request Postoperative anemia due to acute blood loss 12/04/2018 Assessment & Plan Note: - monitor chest tube output Chronic pain 12/04/2018 NSCLC 12/04/2018 Assessment & Plan Note: - continue home Qvar - chest tube to suction - lovenox tomorrow night for prophylaxis HTN (hypertension) 12/04/2018 Assessment & Plan Note: - hold home triamterene/HCTZ in periop period - monitor blood pressure after epidural placed, may cause hypotension 1:38 AM 12/05/2018 1. HYPOTension: Left radial Christina not functioning a. Cont Hypotension after Thoracic Epidural placed. b. Brief response to IVF 1 L cryst c. Albumin 5% 250ml x 1 d. CBC and Cxray now. e. If not improved will D/W APS and may need Low dose NORepi S: Posterior left upper thorax pain. O: BP 109/72 | Pulse 94 | Temp 36.6 C (97.9 F) | Resp 18 | Ht 1.626 m (5' 4") | Wt 58 kg (127 lb 13.9 oz) | SpO2 98% | BMI 21.95 kg/m | BSA 1.62 m Pain Score: 10 Physical Exam vitals reviewed. Constitutional: She appears well-developed and well-nourished HENT: Head:normocephalic and atraumatic Eyes: EOM normal pupils are equal, round, and reactive to light Neck: neck supple Cardiovascular: normal rate, regular rhythm, normal heart sounds and intact distal pulses Pulmonary: effort normal and breath sounds normal. Musculoskeletal: She exhibits tenderness. Neurological: She is alert. Skin: Skin is warm and dry. Assessment and Plan: Hospital Problems Priority POA Head/Neck Hypothyroidism Unknown Cardiovascular HTN (hypertension) Unknown Respiratory/Chest NSCLC Unknown Digestive GERD (gastroesophageal reflux disease) Unknown At risk for Dysphagia Unknown Hematologic Postoperative anemia due to acute blood loss Unknown Other Acute post-operative pain Unknown Chronic pain Unknown I have spent a total of 44 Minutes independently in the direct care and management of th is patient.Time is independent of any time spent teaching or performing any separately billa ble procedures. I reviewed the documented findings, all data and the recent imaging availabl e. Date of Service: 12/05/2018 DEBBIE Lay PA-C Gabriel Owens, PA-C Robin Nevarez MD - 12/04/2018 6:57 PM PDT INPATIENT ADULT PAIN SERVICE PROCEDURE NOTE DATE: 12/04/2018 LOCATION: ICU PRE-OPERATIVE DIAGNOSIS: Post-operative pain in the setting of L VATS POST-OPERATIVE DIAGNOSIS: Post-operative pain in the setting of L VATS PROCEDURE: Epidural catheter placement, Level T5/6 interspace LEVEL/LATERALITY: bilateral ATTENDING PHYSICIAN: Hellen Herman MD RENAL MEDICINE SPECIALIST: Jamey Flores MD, Manda Hamm MD ANESTHESIA: Local anesthesia IV FLUIDS: none ESTIMATED BLOOD LOST: none COMPLICATIONS: None INDICATIONS FOR PROCEDURE: Sussy Allred is a 68 y.o. female admitted 12/04/2018 5:36 A M who presents with a 0 and 1 day history of pain located on her left low chest. She descri bes her pain as constant and sharp. She reports the intensity of her pain as 7/10. Ms. Arnaldo swain has a past medical history significant for hypothyroidism and chronic pain and this proce dure is indicated for acute post operative pain. Prior to admission medication of note: Current Facility-Administered Medications Medication Dose Route Frequency Last Rate acetaminophen (OFIRMEV) IV 1,000 mg 1,000 mg intravenous Q6H beclomethasone (QVAR) 40 mcg/actuation inhaler 1 puff 1 puff inhalation BID ceFAZolin IV 2 gram in dextrose (RTU) 2 g intravenous Q8H [START ON 12/05/2018] enoxaparin (LOVENOX) injection 40 mg 40 mg subcutaneous QPM famotidine (PEPCID) injection 20 mg 20 mg intravenous BID lidocaine (LIDODERM) 5 % patch 1 patch 1 patch transdermal Q24H Current Facility-Administered Medications Medication Dose Route Frequency Last Rate albuterol 0.083% (PROVENTIL,VENTOLIN) 2.5 mg /3 mL (0.083 %) nebulizer solution 2.5 mg 2.5 mg inhalation Q6H PRN bisacodyl (DULCOLAX) suppository 10 mg 10 mg rectal DAILY PRN diphenhydrAMINE (BENADRYL) injection 12.5 mg 12.5 mg intravenous Q6H PRN HYDROmorphone (DILAUDID) injection 0.5-1 mg 0.5-1 mg intravenous Q2H PRN naloxone (NARCAN) injection intravenous PRN ondansetron (ZOFRAN) injection 4 mg 4 mg intravenous Q8H PRN prochlorperazine (COMPAZINE) injection 5-10 mg 5-10 mg intravenous Q6H PRN Current Facility-Administered Medications Medication Dose Route Frequency Last Rate insulin regular in NaCl 0.9% IV infusion (1 unit/mL) 0.25-50 Units/hr intravenous CONT INUOUS ketamine (KETALAR) 500 mg in NaCl 0.9 % (NS) 50 mL IV infusion intravenous CONTINUOUS lactated ringers IV 75 mL/hr intravenous CONTINUOUS 75 mL/hr (12/04/18 1831) Anticoagulants: Yes - Heparin 9mL intraop, last dose given 12/04/2018 1413. PTT confirmed n ormal (low actually) prior to procedure start. Lab Results Component Value Date APTT 25.2 (L) 12/04/2018 The patient was deemed an appropriate candidate to undergo the planned procedure. PROCEDURE IN DETAIL: The patient was identified, full PARQ done. After discussion of risks and benefits, adina pickard informed consent was obtained from patient. The patient was placed in the sitting Team pause: The physician-led pause was conducted. Monitors were placed, including ECG, NIBP and SpO2. The skin was prepared with Chloroprep and sterile drapes were applied. Supplemental oxygen was given. An epidural catheter was placed for postoperative pain control per primary care service's r equest to facilitate recovery. The T5/6 interspace was located by palpation. Local anesthesia was achieved using 1% Lidoc elisabeth. A 9 cm long 17 gauge Tuohy needle was advanced to the epidural space using the loss o f resistance to normal saline technique. The epidural space was entered at 4.5 cm. Aspirati on was negative for blood and CSF. The epidural catheter was then advanced without difficult y. Paresthesias were not noted. The needle was removed and the catheter was withdrawn to 10 cm at the skin. Catheter aspiration was negative for blood and CSF. A test dose of 3 mL of 1.5% lidocaine + 5 mcg/mL epinephrine was administered through the epidural catheter. Hea rt rate or symptomatic changes were noted within the first minute and no motor or sensory c hanges were noted within the first five minutes. The epidural catheter was then secured and a sterile dressing was applied. An extra dose of 2 ml was given epidurally. The patient was hemodynamically stable throughout the procedure. A IVF co-load was given by RN at MD request with 500mL of LR. The procedure was completed on the atttempt. A nice band was achieved to ice after epidural placement. COMMENTS: none IMAGES: No images were taken The Attending Physician was present for the entire procedure. MD Jamey Boss M.D. Assisted our planner internship. I saw and evaluated patient Ms. Sussy Allred with Resident: Dr. Hamm and Dr. Flores. I r eviewed all details of Ms. Sussy Allred s epidural block management. I have reviewed t he resident s note and I agree with the plan of care as documented. I do not have additional comments. Hellen Herman MD Associated attestation - Hellen Herman MD - 12/06/2018 8:46 AM PDTI saw and evaluated patient Ms. Sussy Allred with Resident: Dr. Flores. I reviewed all details of Ms. Prerna Allred s epidural block management. I have reviewed the resident s note and I agree with the plan of care as documented. I have additional comments, as follows: This is late co-sign for date of service 12/04/2018 . Hellen Herman MD documented in this encounter Plan of Treatment +--------+---------+ + + + | Date | Type | Specialty | Care Team | Description | +--------+---------+ + + + | 04/30/ | Office | Speech Therapy | Barbra Ramirez SLP | | 2019 | Visit | | [address] | | | | | | [place] [facility], | | | | | | [place] [address] | | | | | | [phone] | | | | | | | | +--------+---------+ + + + | 04/30/ | Office | Otolaryngology | Augustine Nolan | | | 2020 | Visit | | MD Debbie [address] [facility] | | | | | | [address] | | | | | | [place], [place] | | | | | | [address] | | | | | | [phone] | | | | | | | | +--------+---------+ + + + documented as of this encounter Procedures + +--------+ + + + | Procedure Name | Priori | Date/Time | Associated Diagnosis | Comments | | | ty | | | | + +--------+ + + + | CAPILLARY BLOOD | Routin | 12/14/2018 | Gastroesophageal | Results for this | | GLUCOSE (NO CHG), | e | 8:06 AM | reflux disease, | procedure are in the | | POC | | PDT | esophagitis presence | results section. | | | | | not specified | | + +--------+ + + + | X-RAY CHEST 2 VIEW | Routin | 12/14/2018 | | Results for this | | | e | 7:10 AM | | procedure are in the | | | | PDT | | results section. | + +--------+ + + + | X-RAY CHEST 2 VIEW | Routin | 12/13/2018 | | Results for this | | | e | 4:36 PM | | procedure are in the | | | | PDT | | results section. | + +--------+ + + + | CAPILLARY BLOOD | Routin | 12/13/2018 | Gastroesophageal | Results for this | | GLUCOSE (NO CHG), | e | 12:41 PM | reflux disease, | procedure are in the | | POC | | PDT | esophagitis presence | results section. | | | | | not specified | | + +--------+ + + + | X-RAY PORTABLE CHEST | Routin | 12/13/2018 | | Results for this | | 1 VIEW | e | 8:24 AM | | procedure are in the | | | | PDT | | results section. | + +--------+ + + + | CAPILLARY BLOOD | Routin | 12/13/2018 | Neoplasm | Results for this | | GLUCOSE (NO CHG), | e | 7:44 AM | | procedure are in the | | POC | | PDT | | results section. | + +--------+ + + + | CARDIOLOGY | | 12/13/2018 | | Results for this | | | | 12:00 AM | | procedure are in the | | | | PDT | | results section. | + +--------+ + + + | CAPILLARY BLOOD | Routin | 12/12/2018 | Neoplasm | Results for this | | GLUCOSE (NO CHG), | e | 6:47 PM | | procedure are in the | | POC | | PDT | | results section. | + +--------+ + + + | PROCEDURE NOTE | Routin | 12/12/2018 | | Results for this | | | e | 4:28 PM | | procedure are in the | | | | PDT | | results section. | + +--------+ + + + | CAPILLARY BLOOD | Routin | 12/12/2018 | Neoplasm | Results for this | | GLUCOSE (NO CHG), | e | 12:48 PM | | procedure are in the | | POC | | PDT | | results section. | + +--------+ + + + | CAPILLARY BLOOD | Routin | 12/12/2018 | Neoplasm | Results for this | | GLUCOSE (NO CHG), | e | 8:09 AM | | procedure are in the | | POC | | PDT | | results section. | + +--------+ + + + | CAPILLARY BLOOD | Routin | 12/12/2018 | Neoplasm | Results for this | | GLUCOSE (NO CHG), | e | 6:08 AM | | procedure are in the | | POC | | PDT | | results section. | + +--------+ + + + | CARDIOLOGY | | 12/12/2018 | | Results for this | | | | 12:00 AM | | procedure are in the | | | | PDT | | results section. | + +--------+ + + + | CARDIOLOGY | | 12/12/2018 | | Results for this | | | | 12:00 AM | | procedure are in the | | | | PDT | | results section. | + +--------+ + + + | CAPILLARY BLOOD | Routin | 12/11/2018 | Neoplasm | Results for this | | GLUCOSE (NO CHG), | e | 11:25 PM | | procedure are in the | | POC | | PDT | | results section. | + +--------+ + + + | CAPILLARY BLOOD | Routin | 12/11/2018 | Neoplasm | Results for this | | GLUCOSE (NO CHG), | e | 5:13 PM | | procedure are in the | | POC | | PDT | | results section. | + +--------+ + + + | CAPILLARY BLOOD | Routin | 12/11/2018 | Neoplasm | Results for this | | GLUCOSE (NO CHG), | e | 12:48 PM | | procedure are in the | | POC | | PDT | | results section. | + +--------+ + + + | MODIFIED BARIUM | Routin | 12/11/2018 | | Results for this | | SWALLOWING | e | 11:07 AM | | procedure are in the | | | | PDT | | results section. | + +--------+ + + + | CBC (HEMOGRAM) ONLY | Urgent | 12/11/2018 | | Results for this | | | | 5:01 AM | | procedure are in the | | | | PDT | | results section. | + +--------+ + + + | RENAL FUNCTION SET | Urgent | 12/11/2018 | | Results for this | | (NA,K,CL,CO2,BUN,CRE | | 5:01 AM | | procedure are in the | | AT,GLUC,CA,PHOS,ALB | | PDT | | results section. | | ) | | | | | + +--------+ + + + | CBC ONLY | Urgent | 12/11/2018 | | Results for this | | | | 5:01 AM | | procedure are in the | | | | PDT | | results section. | + +--------+ + + + | MAGNESIUM, PLASMA | Urgent | 12/11/2018 | | Results for this | | | | 5:01 AM | | procedure are in the | | | | PDT | | results section. | + +--------+ + + + | CARDIOLOGY | | 12/11/2018 | | Results for this | | | | 12:00 AM | | procedure are in the | | | | PDT | | results section. | + +--------+ + + + | CARDIOLOGY | | 12/11/2018 | | Results for this | | | | 12:00 AM | | procedure are in the | | | | PDT | | results section. | + +--------+ + + + | CAPILLARY BLOOD | Routin | 12/10/2018 | Neoplasm | Results for this | | GLUCOSE (NO CHG), | e | 11:49 PM | | procedure are in the | | POC | | PDT | | results section. | + +--------+ + + + | CAPILLARY BLOOD | Routin | 12/10/2018 | Neoplasm | Results for this | | GLUCOSE (NO CHG), | e | 6:13 PM | | procedure are in the | | POC | | PDT | | results section. | + +--------+ + + + | CAPILLARY BLOOD | Routin | 12/10/2018 | Neoplasm | Results for this | | GLUCOSE (NO CHG), | e | 12:03 PM | | procedure are in the | | POC | | PDT | | results section. | + +--------+ + + + | CBC (HEMOGRAM) ONLY | Urgent | 12/10/2018 | | Results for this | | | | 6:13 AM | | procedure are in the | | | | PDT | | results section. | + +--------+ + + + | RENAL FUNCTION SET | Urgent | 12/10/2018 | | Results for this | | (NA,K,CL,CO2,BUN,CRE | | 6:13 AM | | procedure are in the | | AT,GLUC,CA,PHOS,ALB | | PDT | | results section. | | ) | | | | | + +--------+ + + + | CBC ONLY | Urgent | 12/10/2018 | | Results for this | | | | 6:13 AM | | procedure are in the | | | | PDT | | results section. | + +--------+ + + + | MAGNESIUM, PLASMA | Urgent | 12/10/2018 | | Results for this | | | | 6:13 AM | | procedure are in the | | | | PDT | | results section. | + +--------+ + + + | CARDIOLOGY | | 12/10/2018 | | Results for this | | | | 12:00 AM | | procedure are in the | | | | PDT | | results section. | + +--------+ + + + | RENAL FUNCTION SET | Urgent | 12/09/2018 | | Results for this | | (NA,K,CL,CO2,BUN,CRE | | 12:17 PM | | procedure are in the | | AT,GLUC,CA,PHOS,ALB | | PDT | | results section. | | ) | | | | | + +--------+ + + + | MAGNESIUM, PLASMA | Urgent | 12/09/2018 | | Results for this | | | | 12:17 PM | | procedure are in the | | | | PDT | | results section. | + +--------+ + + + | CBC (HEMOGRAM) ONLY | Urgent | 12/09/2018 | | Results for this | | | | 6:35 AM | | procedure are in the | | | | PDT | | results section. | + +--------+ + + + | POTASSIUM, PLASMA | Urgent | 12/09/2018 | | Results for this | | | | 6:35 AM | | procedure are in the | | | | PDT | | results section. | + +--------+ + + + | CBC ONLY | Urgent | 12/09/2018 | | Results for this | | | | 6:35 AM | | procedure are in the | | | | PDT | | results section. | + +--------+ + + + | MAGNESIUM, PLASMA | Urgent | 12/09/2018 | | Results for this | | | | 6:35 AM | | procedure are in the | | | | PDT | | results section. | + +--------+ + + + | X-RAY PORTABLE CHEST | Routin | 12/09/2018 | | Results for this | | 1 VIEW | e | 5:41 AM | | procedure are in the | | | | PDT | | results section. | + +--------+ + + + | CARDIOLOGY | | 12/09/2018 | | Results for this | | | | 12:00 AM | | procedure are in the | | | | PDT | | results section. | + +--------+ + + + | RENAL FUNCTION SET | Urgent | 12/08/2018 | | Results for this | | (NA,K,CL,CO2,BUN,CRE | | 11:16 PM | | procedure are in the | | AT,GLUC,CA,PHOS,ALB | | PDT | | results section. | | ) | | | | | + +--------+ + + + | MAGNESIUM, PLASMA | Urgent | 12/08/2018 | | Results for this | | | | 11:16 PM | | procedure are in the | | | | PDT | | results section. | + +--------+ + + + | CAPILLARY BLOOD | Routin | 12/08/2018 | Neoplasm | Results for this | | GLUCOSE (NO CHG), | e | 8:52 PM | | procedure are in the | | POC | | PDT | | results section. | + +--------+ + + + | RENAL FUNCTION SET | Urgent | 12/08/2018 | | Results for this | | (NA,K,CL,CO2,BUN,CRE | | 12:56 PM | | procedure are in the | | AT,GLUC,CA,PHOS,ALB | | PDT | | results section. | | ) | | | | | + +--------+ + + + | MAGNESIUM, PLASMA | Urgent | 12/08/2018 | | Results for this | | | | 12:56 PM | | procedure are in the | | | | PDT | | results section. | + +--------+ + + + | RENAL FUNCTION SET | Urgent | 12/08/2018 | | Results for this | | (NA,K,CL,CO2,BUN,CRE | | 6:46 AM | | procedure are in the | | AT,GLUC,CA,PHOS,ALB | | PDT | | results section. | | ) | | | | | + +--------+ + + + | X-RAY PORTABLE CHEST | Routin | 12/08/2018 | | Results for this | | 1 VIEW | e | 4:58 AM | | procedure are in the | | | | PDT | | results section. | + +--------+ + + + | RENAL FUNCTION SET | Urgent | 12/08/2018 | | Results for this | | (NA,K,CL,CO2,BUN,CRE | | 4:29 AM | | procedure are in the | | AT,GLUC,CA,PHOS,ALB | | PDT | | results section. | | ) | | | | | + +--------+ + + + | MAGNESIUM, PLASMA | Urgent | 12/08/2018 | | Results for this | | | | 4:29 AM | | procedure are in the | | | | PDT | | results section. | + +--------+ + + + | CBC (HEMOGRAM) ONLY | Urgent | 12/08/2018 | | Results for this | | | | 4:28 AM | | procedure are in the | | | | PDT | | results section. | + +--------+ + + + | CBC ONLY | Urgent | 12/08/2018 | | Results for this | | | | 4:28 AM | | procedure are in the | | | | PDT | | results section. | + +--------+ + + + | PEG (PERCUTANEOUS | Routin | 12/07/2018 | | Results for this | | ENDOSCOPIC | e | 3:41 PM | | procedure are in the | | GASTROSTOMY) | | PDT | | results section. | + +--------+ + + + | PROCEDURE NOTE | Routin | 12/07/2018 | | Results for this | | | e | 3:05 PM | | procedure are in the | | | | PDT | | results section. | + +--------+ + + + | PERCUTANEOUS | Electi | 12/07/2018 | lung cancer | | | ENDOSCOPIC | ve | 2:46 PM | | | | GASTROSTOMY | Surgic | PDT | | | | | al | | | | + +--------+ + + + +---+--------+ | | | | | Specia | | | l | | | Needs | | | ICU | | | POST | | | CVICU | | | TEAM | +---+--------+ + +--------+ + + + | VAT: PICC INSERTION | Routin | 12/07/2018 | | Results for this | | W/US | e | 11:57 AM | | procedure are in the | | | | PDT | | results section. | + +--------+ + + + | TRANSTHORACIC | Routin | 12/07/2018 | | Results for this | | ECHOCARDIOGRAM, | e | 8:45 AM | | procedure are in the | | ADULT | | PDT | | results section. | + +--------+ + + + | X-RAY PORTABLE CHEST | Routin | 12/07/2018 | | Results for this | | 1 VIEW | e | 5:56 AM | | procedure are in the | | | | PDT | | results section. | + +--------+ + + + | CBC (HEMOGRAM) ONLY | Urgent | 12/07/2018 | | Results for this | | | | 2:20 AM | | procedure are in the | | | | PDT | | results section. | + +--------+ + + + | RENAL FUNCTION SET | Urgent | 12/07/2018 | | Results for this | | (NA,K,CL,CO2,BUN,CRE | | 2:20 AM | | procedure are in the | | AT,GLUC,CA,PHOS,ALB | | PDT | | results section. | | ) | | | | | + +--------+ + + + | CBC ONLY | Urgent | 12/07/2018 | | Results for this | | | | 2:20 AM | | procedure are in the | | | | PDT | | results section. | + +--------+ + + + | MAGNESIUM, PLASMA | Urgent | 12/07/2018 | | Results for this | | | | 2:20 AM | | procedure are in the | | | | PDT | | results section. | + +--------+ + + + | PROCEDURE NOTE | Routin | 12/06/2018 | | Results for this | | | e | 7:33 PM | | procedure are in the | | | | PDT | | results section. | + +--------+ + + + | CBC (HEMOGRAM) ONLY | Urgent | 12/06/2018 | | Results for this | | | | 12:27 PM | | procedure are in the | | | | PDT | | results section. | + +--------+ + + + | CBC ONLY | Urgent | 12/06/2018 | | Results for this | | | | 12:27 PM | | procedure are in the | | | | PDT | | results section. | + +--------+ + + + | BASIC METABOLIC SET | Urgent | 12/06/2018 | | Results for this | | (NA, K, CL, TCO2, | | 6:29 AM | | procedure are in the | | BUN, CR, GLU, CA) | | PDT | | results section. | + +--------+ + + + | MAGNESIUM, PLASMA | Urgent | 12/06/2018 | | Results for this | | | | 6:29 AM | | procedure are in the | | | | PDT | | results section. | + +--------+ + + + | X-RAY PORTABLE CHEST | Routin | 12/06/2018 | | Results for this | | 1 VIEW | e | 6:10 AM | | procedure are in the | | | | PDT | | results section. | + +--------+ + + + | CBC (HEMOGRAM) ONLY | Urgent | 12/06/2018 | | Results for this | | | | 5:58 AM | | procedure are in the | | | | PDT | | results section. | + +--------+ + + + | CBC ONLY | Urgent | 12/06/2018 | | Results for this | | | | 5:58 AM | | procedure are in the | | | | PDT | | results section. | + +--------+ + + + | TO FIRE CHIEF'S AIDE | Routin | 12/05/2018 | | Results for this | | | e | 8:51 AM | | procedure are in the | | | | PDT | | results section. | + +--------+ + + + | X-RAY PORTABLE CHEST | Urgent | 12/05/2018 | | Results for this | | 1 VIEW | | 5:59 AM | | procedure are in the | | | | PDT | | results section. | + +--------+ + + + | ICU FOCUSED | Routin | 12/05/2018 | | Results for this | | TRANSTHORACIC | e | 3:40 AM | | procedure are in the | | ECHOCARDIOGRAM | | PDT | | results section. | | LIMITED (FAST TTE) | | | | | + +--------+ + + + | ART LINE | Routin | 12/05/2018 | | Results for this | | | e | 2:56 AM | | procedure are in the | | | | PDT | | results section. | + +--------+ + + + | CBC (HEMOGRAM) ONLY | Urgent | 12/05/2018 | | Results for this | | | | 1:45 AM | | procedure are in the | | | | PDT | | results section. | + +--------+ + + + | RENAL FUNCTION SET | Urgent | 12/05/2018 | | Results for this | | (NA,K,CL,CO2,BUN,CRE | | 1:45 AM | | procedure are in the | | AT,GLUC,CA,PHOS,ALB | | PDT | | results section. | | ) | | | | | + +--------+ + + + | CBC ONLY | Urgent | 12/05/2018 | | Results for this | | | | 1:45 AM | | procedure are in the | | | | PDT | | results section. | + +--------+ + + + | MAGNESIUM, PLASMA | Urgent | 12/05/2018 | | Results for this | | | | 1:45 AM | | procedure are in the | | | | PDT | | results section. | + +--------+ + + + | X-RAY PORTABLE CHEST | Urgent | 12/04/2018 | | Results for this | | 1 VIEW | | 6:32 PM | | procedure are in the | | | | PDT | | results section. | + +--------+ + + + | APTT (ACT. PART. | Urgent | 12/04/2018 | | Results for this | | THROMBO TIME) | | 6:29 PM | | procedure are in the | | | | PDT | | results section. | + +--------+ + + + | CBC (HEMOGRAM) ONLY | Urgent | 12/04/2018 | | Results for this | | | | 5:56 PM | | procedure are in the | | | | PDT | | results section. | + +--------+ + + + | BASIC METABOLIC SET | Urgent | 12/04/2018 | | Results for this | | (NA, K, CL, TCO2, | | 5:56 PM | | procedure are in the | | BUN, CR, GLU, CA) | | PDT | | results section. | + +--------+ + + + | CBC ONLY | Urgent | 12/04/2018 | | Results for this | | | | 5:56 PM | | procedure are in the | | | | PDT | | results section. | + +--------+ + + + | CAPILLARY BLOOD | Routin | 12/04/2018 | Neoplasm | Results for this | | GLUCOSE (NO CHG), | e | 5:53 PM | | procedure are in the | | POC | | PDT | | results section. | + +--------+ + + + | OPERATION RECORD | | 12/04/2018 | | Results for this | | | | 4:05 PM | | procedure are in the | | | | PDT | | results section. | + +--------+ + + + | CAPILLARY BLOOD | Routin | 12/04/2018 | Neoplasm | Results for this | | GLUCOSE (NO CHG), | e | 3:55 PM | | procedure are in the | | POC | | PDT | | results section. | + +--------+ + + + | ABG-FULL ABL, POC | Urgent | 12/04/2018 | Neoplasm | Results for this | | | | 2:27 PM | | procedure are in the | | | | PDT | | results section. | + +--------+ + + + | ABG-FULL ABL, POC | Urgent | 12/04/2018 | Neoplasm | Results for this | | | | 12:55 PM | | procedure are in the | | | | PDT | | results section. | + +--------+ + + + | ABG-FULL ABL, POC | Urgent | 12/04/2018 | Neoplasm | Results for this | | | | 10:21 AM | | procedure are in the | | | | PDT | | results section. | + +--------+ + + + | SURGICAL PATHOLOGY | Routin | 12/04/2018 | | Results for this | | | e | 9:11 AM | | procedure are in the | | | | PDT | | results section. | + +--------+ + + + | FINE NEEDLE ASPIRATE | Routin | 12/04/2018 | | Results for this | | | e | 8:06 AM | | procedure are in the | | | | PDT | | results section. | + +--------+ + + + | BRONCHOSCOPY, | Electi | 12/04/2018 | Neoplasm | | | MEDIASTINOSCOPY, | ve | 7:32 AM | | | | POSSIBLE | Surgic | PDT | | | | THORACOSCOPY | al | | | | + +--------+ + + + | ENDOBRONCHIAL | Electi | 12/04/2018 | Neoplasm | | | ULTRASOUND | ve | 7:32 AM | | | | | Surgic | PDT | | | | | al | | | | + +--------+ + + + | CAPILLARY BLOOD | Routin | 12/04/2018 | Neoplasm | Results for this | | GLUCOSE (NO CHG), | e | 6:50 AM | | procedure are in the | | POC | | PDT | | results section. | + +--------+ + + + | INTRAPROCEDURE | Routin | 12/04/2018 | | Results for this | | IMAGING | e | 6:13 AM | | procedure are in the | | | | PDT | | results section. | + +--------+ + + + documented in this encounter Results CAPILLARY BLOOD GLUCOSE (NO CHG), POC (12/14/2018 8:06 AM PDT) + +---------+ + + + | Component | Value | Ref Range | Performed | Pathologist | | | | | At | Signature | + +---------+ + + + | BLOOD | 122 (H) | 60 - 99 mg/dL | [facility] | | | GLUCOSE, | | | [facility] | | | POC | | | [facility] | | | | | | [facility] | | | | | | TESTS | | + +---------+ + + + + + | Specimen | + + | | + + + + + + + | Performing | Address | City/State/Zipcode | Phone Number | | Organization | | | | + + + + + | [facility] | [address] | [place], [place] | | | [facility] | [address] | [address] | | | TESTS | | | | + + + + + X-RAY CHEST 2 VIEW (12/14/2018 7:10 AM PDT) + + | Specimen | + + | | + + + + + | Narrative | Performed At | + + + | EXAM: CHEST 2 VIEWS HISTORY: Eval interval change s/p left upper | [facility] | | lobectomy and left chest tube removal COMPARISON: 12/13/2018 | RADIOLOGY VOICE | | FINDINGS: The cardiomediastinal contour is stable. There is left | RECOGNITION 2 | | basilar atelectasis. There is a trace left-sided pleural effusion. | | | There is a possible trace left pneumothorax. There is no pulmonary | | | edema. The bones are intact. IMPRESSION: Possible trace | | | left-sided pneumothorax. Left basilar atelectasis and trace | | | left-sided pleural effusion. I have personally reviewed the images | | | and, if necessary, edited the report. I agree with the report as now | | | presented. Final signature: Jadyn Mcadams MD 12/14/2018 10:06 | | | AM Preliminary: Jadyn Mcadams MD Dictation initiated: Jadyn | | | MD Abbe 12/14/2018 10:04 AM | | + + + + + | Procedure Note | + + | 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, Radiant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 - 12/14/2018 10:07 AM PDT EXAM: CHEST 2 | | VIEWS HISTORY: Eval interval change s/p left upper lobectomy and left chest tube removal | | COMPARISON: 12/13/2018 FINDINGS: The cardiomediastinal contour is stable. There is | | left basilar atelectasis. There is a trace left-sided pleural effusion. There is a | | possible trace left pneumothorax. There is no pulmonary edema. The bones are intact. | | IMPRESSION: Possible trace left-sided pneumothorax. Left basilar atelectasis and trace | | left-sided pleural effusion. I have personally reviewed the images and, if necessary, | | edited the report. I agree with the report as now presented. Final signature: Jadyn | | MD Abbe 12/14/2018 10:06 AM Preliminary: Jadyn Mcadams MD Dictation initiated: | | Jadyn Mcadams MD 12/14/2018 10:04 AM | |IMPRESSION: | | | |Possible trace left-sided pneumothorax. | | | |Left basilar atelectasis and trace left-sided pleural effusion. | | | |I have personally reviewed the images and, if necessary, edited the report. I agree with th e report as now presented. | | | |Final signature: Jadyn Mcadams MD 12/14/2018 10:06 AM | |Preliminary: Jadyn Mcadams MD | |Dictation initiated: Jadyn Mcadams MD 12/14/2018 10:04 AM | + + + +---------+ + + | Performing | Address | City/State/Zipcode | Phone Number | | Organization | | | | + +---------+ + + | [facility] | | | | | VOICE RECOGNITION 2 | | | | + +---------+ + + X-RAY CHEST 2 VIEW (12/13/2018 4:36 PM PDT) + + | Specimen | + + | | + + + + + | Narrative | Performed At | + + + | EXAM: CHEST 2 VIEWS HISTORY: s/p left chest tube removal | [facility] | | COMPARISON: Earlier today FINDINGS: Left-sided chest tube has | RADIOLOGY VOICE | | been removed. The cardiomediastinal silhouette is stable. There is | RECOGNITION 2 | | minimal left but no right-sided pleural effusion. There is no right | | | pneumothorax or pulmonary edema. A small anterior left pneumothorax is | | | present. Trace atelectasis persists. IMPRESSION: Small | | | anterior left-sided pneumothorax following chest tube removal. . | | | I have personally reviewed the images and, if necessary, edited the | | | report. I agree with the report as now presented. Final | | | signature: Jennifer Haider MD 12/13/2018 5:26 PM Preliminary: | | | Jennifer Haider MD Dictation initiated: Jennifer Haider MD | | | 12/13/2018 5:25 PM | | + + + + + | Procedure Note | + + | 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, Radiant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 - 12/13/2018 5:27 PM PDT EXAM: CHEST 2 | | VIEWS HISTORY: s/p left chest tube removal COMPARISON: Earlier today FINDINGS: | | Left-sided chest tube has been removed. The cardiomediastinal silhouette is stable. | | There is minimal left but no right-sided pleural effusion. There is no right | | pneumothorax or pulmonary edema. A small anterior left pneumothorax is present. Trace | | atelectasis persists. IMPRESSION: Small anterior left-sided pneumothorax following chest | | tube removal. . I have personally reviewed the images and, if necessary, edited the | | report. I agree with the report as now presented. Final signature: Jennifer Haider MD | | 12/13/2018 5:26 PM Preliminary: Jennifer Haider MD Dictation initiated: Jennifer Haider | | 12/13/2018 5:25 PM | | | |IMPRESSION: | | | |Small anterior left-sided pneumothorax following chest tube removal. | | | |. | | | |I have personally reviewed the images and, if necessary, edited the report. I agree with [facility] report as now presented. | | | |Final signature: Jennifer Haider MD 12/13/2018 5:26 PM | |Preliminary: Jennifer Haider MD | |Dictation initiated: Jennifer Haider MD 12/13/2018 5:25 PM | + + + +---------+ + + | Performing | Address | City/State/Zipcode | Phone Number | | Organization | | | | + +---------+ + + | [facility] | | | | | VOICE RECOGNITION 2 | | | | + +---------+ + + CAPILLARY BLOOD GLUCOSE (NO CHG), POC (12/13/2018 12:41 PM PDT) + +---------+ + + + | Component | Value | Ref Range | Performed | Pathologist | | | | | At | Signature | + +---------+ + + + | BLOOD | 117 (H) | 60 - 99 mg/dL | [facility] | | | GLUCOSE, | | | [facility] | | | POC | | | [facility] | | | | | | [facility] CARE | | | | | | TESTS | | + +---------+ + + + + + | Specimen | + + | | + + + + + + + | Performing | Address | City/State/Zipcode | Phone Number | | Organization | | | | + + + + + | [facility] | [address] | [place], [place] | | | [facility] | [address] | [phone] | | | TESTS | | | | + + + + + X-RAY PORTABLE CHEST 1 VIEW (12/13/2018 8:24 AM PDT) + + | Specimen | + + | | + + + + + | Narrative | Performed At | + + + | EXAM: NE CHEST 1 VIEW HISTORY: eval interval change. Patient | [facility] | | status post left upper lobectomy COMPARISON: 12/09/2018, 12/08/2018 | RADIOLOGY VOICE | | FINDINGS: Left chest tube in stable position. No pneumothorax | RECOGNITION 2 | | demonstrated. Expected postsurgical changes and volume loss from left | | | upper lobectomy with elevation of the left diaphragm unchanged. | | | Interval improvement in groundglass and consolidative opacities | | | predominantly in the right lung. Mild scarring seen in the lung | | | apices. Trace pleural effusions. No pulmonary edema. The | | | cardiomediastinal silhouette is stable in appearance. No new acute | | | osseous abnormality. IMPRESSION: Improvement in groundglass | | | and consolidative opacities predominantly in the right lung in keeping | | | with improving aspiration/aspiration pneumonia. Expected | | | postsurgical changes from left upper lobectomy with chest tube in | | | place. No pneumothorax. I have personally reviewed the images and, | | | if necessary, edited the report. I agree with the report as now | | | presented. Final signature: Frieda Brumfield MD 12/13/2018 9:46 AM | | | Preliminary: Frieda Brumfield MD Dictation initiated: Frieda Brumfield MD 12/13/2018 9:42 AM | | + + + + + | Procedure Note | + + | 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, Radiant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 - 12/13/2018 9:47 AM PDT EXAM: NE CHEST 1 | | VIEW HISTORY: eval interval change. Patient status post left upper lobectomy COMPARISON: | | 12/09/2018, 12/08/2018 FINDINGS: Left chest tube in stable position. No pneumothorax | | demonstrated. Expected postsurgical changes and volume loss from left upper lobectomy | | with elevation of the left diaphragm unchanged. Interval improvement in groundglass and | | consolidative opacities predominantly in the right lung. Mild scarring seen in the lung | | apices. Trace pleural effusions. No pulmonary edema. The cardiomediastinal silhouette is | | stable in appearance. No new acute osseous abnormality. IMPRESSION: Improvement in | | groundglass and consolidative opacities predominantly in the right lung in keeping with | | improving aspiration/aspiration pneumonia. Expected postsurgical changes from left upper | | lobectomy with chest tube in place. No pneumothorax. I have personally reviewed the | | images and, if necessary, edited the report. I agree with the report as now presented. | | Final signature: Frieda Brumfield MD 12/13/2018 9:46 AM Preliminary: Frieda Brumfield MD | | Dictation initiated: Frieda Brumfield MD 12/13/2018 9:42 AM | | | |Improvement in groundglass and consolidative opacities predominantly in the right lung in k eeping with improving aspiration/aspiration pneumonia. | | | |Expected postsurgical changes from left upper lobectomy with chest tube in place. No pneumo thorax. | | | |I have personally reviewed the images and, if necessary, edited the report. I agree with e report as now presented. | | | |Final signature: Frieda Brumfield MD 12/13/2018 9:46 AM | |Preliminary: Frieda Brumfield MD | |Dictation initiated: Frieda Brumfield MD 12/13/2018 9:42 AM | + + + +---------+ + + | Performing | Address | City/State/Zipcode | Phone Number | | Organization | | | | + +---------+ + + | [facility] | | | | | VOICE RECOGNITION 2 | | | | + +---------+ + + CAPILLARY BLOOD GLUCOSE (NO CHG), POC (12/13/2018 7:44 AM PDT) + +---------+ + + + | Component | Value | Ref Range | Performed | Pathologist | | | | | At | Signature | + +---------+ + + + | BLOOD | 134 (H) | 60 - 99 mg/dL | [facility] | | | GLUCOSE, | | | [facility] | | | POC | | | [facility] | | | | | | OF CARE | | | | | | TESTS | | + +---------+ + + + + + | Specimen | + + | | + + + + + + + | Performing | Address | City/State/Zipcode | Phone Number | | Organization | | | | + + + + + | [facility] | [address] | [place], [place] | | | [facility] | [address] | [address] | | | TESTS | | | | + + + + + CARDIOLOGY (12/13/2018 12:00 AM PDT) + + + | Narrative | Performed At | + + + | | | + + + CAPILLARY BLOOD GLUCOSE (NO CHG), POC (12/12/2018 6:47 PM PDT) + +---------+ + + + | Component | Value | Ref Range | Performed | Pathologist | | | | | At | Signature | + +---------+ + + + | BLOOD | 117 (H) | 60 - 99 mg/dL | [facility] | | | GLUCOSE, | | | [facility] | | | POC | | | [facility] | | | | | | OF CARE | | | | | | TESTS | | + +---------+ + + + + + | Specimen | + + | | + + + + + + + | Performing | Address | City/State/Zipcode | Phone Number | | Organization | | | | + + + + + | [facility] | [address] | [place], [place] | | | [facility] | [address] | [address] | | | TESTS | | | | + + + + + PROCEDURE NOTE (12/12/2018 4:28 PM PDT) + + + | Narrative | Performed At | + + + | Silvana Quevedo MD 12/13/2018 5:30 AM Indication: Left air leak | | | Staff: Dr Kumar 25 ml of non clotted blood was instilled via | | | an 18 gauge needle into the chest tube. It was flushed. Tube was | | | placed higher than patient on suction for one hour. Silvana | | | MD [facility] Cardiothoracic Surgery Fellow Pager: [phone] | | + + + CAPILLARY BLOOD GLUCOSE (NO CHG), POC (12/12/2018 12:48 PM PDT) + +---------+ + + + | Component | Value | Ref Range | Performed | Pathologist | | | | | At | Signature | + +---------+ + + + | BLOOD | 110 (H) | 60 - 99 mg/dL | [facility] | | | GLUCOSE, | | | [facility] | | | POC | | | [facility] | | | | | | OF CARE | | | | | | TESTS | | + +---------+ + + + + + | Specimen | + + | | + + + + + + + | Performing | Address | City/State/Zipcode | Phone Number | | Organization | | | | + + + + + | [facility] | [address] | [place], [place] | | | [facility] | [address] | [address] | | | TESTS | | | | + + + + + CAPILLARY BLOOD GLUCOSE (NO CHG), POC (12/12/2018 8:09 AM PDT) + +-------+ + + + | Component | Value | Ref Range | Performed | Pathologist | | | | | At | Signature | + +-------+ + + + | BLOOD | 98 | 60 - 99 mg/dL | [facility] | | | GLUCOSE, | | | [facility] | | | POC | | | [facility] | | | | | | OF CARE | | | | | | TESTS | | + +-------+ + + + + + | Specimen | + + | | + + + + + + + | Performing | Address | City/State/Zipcode | Phone Number | | Organization | | | | + + + + + | [facility] | [address] | [place], [place] | | | [facility] | [address] | [address] | | | TESTS | | | | + + + + + CAPILLARY BLOOD GLUCOSE (NO CHG), POC (12/12/2018 6:08 AM PDT) + +---------+ + + + | Component | Value | Ref Range | Performed | Pathologist | | | | | At | Signature | + +---------+ + + + | BLOOD | 113 (H) | 60 - 99 mg/dL | [facility] | | | GLUCOSE, | | | [facility] | | | POC | | | [facility] | | | | | | OF CARE | | | | | | TESTS | | + +---------+ + + + + + | Specimen | + + | | + + + + + + + | Performing | Address | City/State/Zipcode | Phone Number | | Organization | | | | + + + + + | [facility] | [address] | [place], [place] | | | [facility] | [address] | [address] | | | TESTS | | | | + + + + + CARDIOLOGY (12/12/2018 12:00 AM PDT) + + + | Narrative | Performed At | + + + | | | + + + CARDIOLOGY (12/12/2018 12:00 AM PDT) + + + | Narrative | Performed At | + + + | | | + + + CAPILLARY BLOOD GLUCOSE (NO CHG), POC (12/11/2018 11:25 PM PDT) + +---------+ + + + | Component | Value | Ref Range | Performed | Pathologist | | | | | At | Signature | + +---------+ + + + | BLOOD | 136 (H) | 60 - 99 mg/dL | [facility] | | | GLUCOSE, | | | [facility] | | | POC | | | [facility] | | | | | | OF CARE | | | | | | TESTS | | + +---------+ + + + + + | Specimen | + + | | + + + + + + + | Performing | Address | City/State/Zipcode | Phone Number | | Organization | | | | + + + + + | [facility] | [address] | [place], [place] | | | [facility] | [address] | [address] | | | TESTS | | | | + + + + + CAPILLARY BLOOD GLUCOSE (NO CHG), POC (12/11/2018 5:13 PM PDT) + +---------+ + + + | Component | Value | Ref Range | Performed | Pathologist | | | | | At | Signature | + +---------+ + + + | BLOOD | 136 (H) | 60 - 99 mg/dL | [facility] | | | GLUCOSE, | | | [facility] | | | POC | | | [facility] | | | | | | OF CARE | | | | | | TESTS | | + +---------+ + + + + + | Specimen | + + | | + + + + + + + | Performing | Address | City/State/Zipcode | Phone Number | | Organization | | | | + + + + + | [facility] | [address] | [place], [place] | | | [facility] | [facility] | [address] | | | TESTS | | | | + + + + + CAPILLARY BLOOD GLUCOSE (NO CHG), POC (12/11/2018 12:48 PM PDT) + +---------+ + + + | Component | Value | Ref Range | Performed | Pathologist | | | | | At | Signature | + +---------+ + + + | BLOOD | 109 (H) | 60 - 99 mg/dL | [facility] | | | GLUCOSE, | | | [facility] | | | POC | | | [facility] | | | | | | OF CARE | | | | | | TESTS | | + +---------+ + + + + + | Specimen | + + | | + + + + + + + | Performing | Address | City/State/Zipcode | Phone Number | | Organization | | | | + + + + + | [facility] | [address] | [place], [place] | | | [facility] | [address] | [address] | | | TESTS | | | | + + + + + MODIFIED BARIUM SWALLOWING (12/11/2018 11:07 AM PDT) + + | Specimen | + + | | + + + + + | Narrative | Performed At | + + + | EXAM: Modified Barium Swallow HISTORY: Recent left thoracotomy | [facility] | | and left upper lobectomy with left recurrent laryngeal nerve | RADIOLOGY VOICE | | excision. Postoperative aspiration with aspiration pneumonitis. | RECOGNITION 2 | | COMPARISONS: None. TECHNIQUE: Fluoroscopy assistance provided to | | | speech pathology for performance of modified barium swallow. | | | Total Fluoroscopy Time: 70 sec IMPRESSION: No aspiration or | | | penetration. Minimal posterior indentation of the esophagus related to | | | endplate osteophytes at C5-6. A left-sided chest tube is partially | | | visualized over the left hemithorax. Please see speech pathology | | | report for full details. I have personally reviewed the images | | | and, if necessary, edited the report. I agree with the report as now | | | presented. Final signature: Chip Fam MD 12/11/2018 3:26 | | | PM Preliminary: Keith Jung MD Dictation initiated: Keith | | | MD Erich 12/11/2018 11:37 AM | | + + + + + | Procedure Note | + + | 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, Radiant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 - 12/11/2018 3:54 PM PDT EXAM: Modified | | Barium Swallow HISTORY: Recent left thoracotomy and left upper lobectomy with left | | recurrent laryngeal nerve excision. Postoperative aspiration with aspiration | | pneumonitis. COMPARISONS: None. TECHNIQUE: Fluoroscopy assistance provided to speech | | pathology for performance of modified barium swallow. Total Fluoroscopy Time: 70 sec | | IMPRESSION: No aspiration or penetration. Minimal posterior indentation of the esophagus | | related to endplate osteophytes at C5-6. A left-sided chest tube is partially | | visualized over the left hemithorax. Please see speech pathology report for full | | details. I have personally reviewed the images and, if necessary, edited the report. I | | agree with the report as now presented. Final signature: Chip Fam MD 12/11/2018 | | 3:26 PM Preliminary: Keith Jung MD Dictation initiated: Keith Jung MD | | 12/11/2018 11:37 AM | |No aspiration or penetration. Minimal posterior indentation of the esophagus related to end plate osteophytes at C5-6. A left-sided chest tube is partially visualized over the left hem ithorax. Please see speech pathology report for full details. | | | |I have personally reviewed the images and, if necessary, edited the report. I agree with th e report as now presented. | | | |Final signature: Chip Fam MD 12/11/2018 3:26 PM | |Preliminary: Keith Jung MD | |Dictation initiated: Keith Jung MD 12/11/2018 11:37 AM | + + + +---------+ + + | Performing | Address | City/State/Zipcode | Phone Number | | Organization | | | | + +---------+ + + | [facility] | | | | | VOICE RECOGNITION 2 | | | | + +---------+ + + CBC (HEMOGRAM) ONLY (12/11/2018 5:01 AM PDT) + + + + + + | Component | Value | Ref Range | Performed | Pathologist | | | | | At | Signature | + + + + + + | WHITE CELL | 12.95 (H) | 3.50 - 10.80 | [facility] | | | COUNT | | K/cu mm | LABORATORY | | | | | | SERVICES, | | | | | | CORE | | + + + + + + | RED CELL | 2.64 (L) | 4.00 - 5.20 | [facility] | | | COUNT | | M/cu mm | LABORATORY | | | | | | SERVICES, | | | | | | CORE | | + + + + + + | HEMOGLOBIN | 8.5 (L) | 12.0 - 16.0 | [facility] | | | | | g/dL | LABORATORY | | | | | | SERVICES, | | | | | | CORE | | + + + + + + | HEMATOCRIT | 26.7 (L) | 36.0 - 46.0 % | [facility] | | | | | | LABORATORY | | | | | | SERVICES, | | | | | | CORE | | + + + + + + | MCV | 101.1 (H) | 80.0 - 100.0 fL | [facility] | | | | | | LABORATORY | | | | | | SERVICES, | | | | | | CORE | | + + + + + + | MCHC | 31.8 (L) | 32.0 - 36.0 | [facility] | | | | | g/dL | LABORATORY | | | | | | SERVICES, | | | | | | CORE | | + + + + + + | RDW SD | 46.7 (H) | 35.1 - 46.3 fL | [facility] | | | | | | LABORATORY | | | | | | SERVICES, | | | | | | CORE | | + + + + + + | PLATELET | 385 | 150 - 400 K/cu | [facility] | | | COUNT | | mm | LABORATORY | | | | | | SERVICES, | | | | | | CORE | | + + + + + + | MPV | 8.8 (L) | 9.7 - 12.3 fL | [facility] | | | | | | LABORATORY | | | | | | SERVICES, | | | | | | CORE | | + + + + + + | NRBC% | 0.0 | 0.0 - 0.3 % | [facility] | | | | | | LABORATORY | | | | | | SERVICES, | | | | | | CORE | | + + + + + + | NRBC# | 0.00 | 0.00 - 0.02 | [facility] | | | | | K/cu mm | LABORATORY | | | | | | SERVICES, | | | | | | CORE | | + + + + + + + + | Specimen | + + | Blood - Blood | | (substance) | + + + + + + + | Performing | Address | City/State/Zipcode | Phone Number | | Organization | | | | + + + + + | [facility] | [address] | [place] [address] | | | SERVICES, CORE | [address] | | | + + + + + MAGNESIUM, PLASMA (12/11/2018 5:01 AM PDT) + +-------+ + + + | Component | Value | Ref Range | Performed | Pathologist | | | | | At | Signature | + +-------+ + + + | MAGNESIUM,P | 2.3 | 1.6 - 2.6 mg/dL | [facility] | | | LASMA | | | LABORATORY | | | | | | SERVICES, | | | | | | CORE | | + +-------+ + + + + + | Specimen | + + | Blood - Blood | | (substance) | + + + + + + + | Performing | Address | City/State/Zipcode | Phone Number | | Organization | | | | + + + + + | [facility] | [address] | [place] [address] | | | SERVICES, CORE | [address] | | | + + + + + RENAL FUNCTION SET (NA,K,CL,CO2,BUN,CREAT,GLUC,CA,PHOS,ALB ) (12/11/2018 5:01 AM PDT) + + + + + + | Component | Value | Ref Range | Performed | Pathologist | | | | | At | Signature | + + + + + + | GLUCOSE, | 105 (H) | 70 - 99 mg/dL | [facility] | | | PLASMA | | | LABORATORY | | | (LAB) | | | SERVICES, | | | | | | CORE | | + + + + + + | BUN, PLASMA | 20 | 6 - 20 mg/dL | [facility] | | | (LAB) | | | LABORATORY | | | | | | SERVICES, | | | | | | CORE | | + + + + + + | CREATININE | 0.59 (L) | 0.60 - 1.10 | [facility] | | | PLASMA | | mg/dL | LABORATORY | | | (LAB) | | | SERVICES, | | | | | | CORE | | + + + + + + | EGFR | >60 | >60 mL/min | [facility] | | | - | | | LABORATORY | | | [facility] | | | SERVICES, | | | | | | CORE | | + + + + + + | EGFR NON | >60 | >60 mL/min | [facility] | | | -[facility] | | | LABORATORY | | | [facility] | | | SERVICES, | | | | | | CORE | | + + + + + + | SODIUM, | 137 | 136 - 145 | [facility] | | | PLASMA | | mmol/L | LABORATORY | | | (LAB) | | | SERVICES, | | | | | | CORE | | + + + + + + | POTASSIUM, | 4.1 | 3.4 - 5.0 | [facility] | | | PLASMA | | mmol/L | LABORATORY | | | (LAB) | | | SERVICES, | | | | | | CORE | | + + + + + + | CHLORIDE, | 102 | 97 - 108 mmol/L | [facility] | | | PLASMA | | | LABORATORY | | | (LAB) | | | SERVICES, | | | | | | CORE | | + + + + + + | TOTAL CO2, | 29 | 21 - 32 mmol/L | [facility] | | | PLASMA | | | LABORATORY | | | (LAB) | | | SERVICES, | | | | | | CORE | | + + + + + + | CALCIUM, | 7.9 (L) | 8.6 - 10.2 | [facility] | | | PLASMA | | mg/dL | LABORATORY | | | (LAB) | | | SERVICES, | | | | | | CORE | | + + + + + + | CALCIUM(ALB | 9.6 | 8.6 - 10.2 | [facility] | | | CORRECTED) | | mg/dL | LABORATORY | | | | | | SERVICES, | | | | | | CORE | | + + + + + + | ALBUMIN, | 1.9 (L) | 3.5 - 4.7 g/dL | [facility] | | | PLASMA | | | LABORATORY | | | (LAB) | | | SERVICES, | | | | | | CORE | | + + + + + + | PHOSPHORUS, | 3.1 | 2.4 - 4.7 mg/dL | [facility] | | | PLASMA | | | LABORATORY | | | (LAB) | | | SERVICES, | | | | | | CORE | | + + + + + + | POTASSIUM | No Hemo | | [facility] | | | CMNT | | | LABORATORY | | | | | | SERVICES, | | | | | | CORE | | + + + + + + | ANION GAP | 6 | 4 - 11 mmol/L | [facility] | | | | | | LABORATORY | | | | | | SERVICES, | | | | | | CORE | | + + + + + + | ANION | 11 | 4 - 11 mmol/L | [facility] | | | GAP(ALB | | | LABORATORY | | | CORRECTED) | | | SERVICES, | | | | | | CORE | | + + + + + + + + | Specimen | + + | Blood - Blood | | (substance) | + + + + + | Narrative | Performed At | + + + | GFR is estimated using the MDRD equation recommended by the | [facility] | | National Kidney Disease Education Program. Estimated GFR | LABORATORY | | Interpretive Information: <60 mL/min/1.73 sq m | SERVICES, CORE | | Chronic Kidney Disease <15 mL/min/1.73 sq m | | | Kidney Failure Estimated GFR greater than 60 mL/min/1.73 sq m is of | | | limited clinical value. The MDRD equation is not valid in the | | | following situations: - Patients under 18 years of age - Severe | | | malnutrition or obesity - Vegetarian diet - Rapidly changing kidney | | | function - Amputees, paraplegics, or other muscle-wasting diseses | | + + + + + + + + | Performing | Address | City/State/Zipcode | Phone Number | | Organization | | | | + + + + + | [facility] | [address] | [place] [address] | | | SERVICES, CORE | [address] | | | + + + + + CARDIOLOGY (12/11/2018 12:00 AM PDT) + + + | Narrative | Performed At | + + + | | | + + + CARDIOLOGY (12/11/2018 12:00 AM PDT) + + + | Narrative | Performed At | + + + | | | + + + CAPILLARY BLOOD GLUCOSE (NO CHG), POC (12/10/2018 11:49 PM PDT) + +---------+ + + + | Component | Value | Ref Range | Performed | Pathologist | | | | | At | Signature | + +---------+ + + + | BLOOD | 128 (H) | 60 - 99 mg/dL | [facility] - | | | GLUCOSE, | | | [facility] | | | POC | | | [facility] | | | | | | OF CARE | | | | | | TESTS | | + +---------+ + + + + + | Specimen | + + | | + + + + + + + | Performing | Address | City/State/Zipcode | Phone Number | | Organization | | | | + + + + + | [facility] | [address] | [place], [place] | | | [facility] | [address] | [address] | | | TESTS | | | | + + + + + CAPILLARY BLOOD GLUCOSE (NO CHG), POC (12/10/2018 6:13 PM PDT) + +---------+ + + + | Component | Value | Ref Range | Performed | Pathologist | | | | | At | Signature | + +---------+ + + + | BLOOD | 113 (H) | 60 - 99 mg/dL | [facility] - | | | GLUCOSE, | | | [facility] | | | POC | | | [facility] | | | | | | OF CARE | | | | | | TESTS | | + +---------+ + + + + + | Specimen | + + | | + + + + + + + | Performing | Address | City/State/Zipcode | Phone Number | | Organization | | | | + + + + + | [facility] | [address] | [place], [place] | | | [facility] | [facility] | [address] | | | TESTS | | | | + + + + + CAPILLARY BLOOD GLUCOSE (NO CHG), POC (12/10/2018 12:03 PM PDT) + +---------+ + + + | Component | Value | Ref Range | Performed | Pathologist | | | | | At | Signature | + +---------+ + + + | BLOOD | 121 (H) | 60 - 99 mg/dL | [facility] - | | | GLUCOSE, | | | [facility] | | | POC | | | [facility] | | | | | | OF CARE | | | | | | TESTS | | + +---------+ + + + + + | Specimen | + + | | + + + + + + + | Performing | Address | City/State/Zipcode | Phone Number | | Organization | | | | + + + + + | [facility] | [address] | [place], [place] | | | [facility] | [address] | [address] | | | TESTS | | | | + + + + + CBC (HEMOGRAM) ONLY (12/10/2018 6:13 AM PDT) + + + + + + | Component | Value | Ref Range | Performed | Pathologist | | | | | At | Signature | + + + + + + | WHITE CELL | 9.93 | 3.50 - 10.80 | [facility] | | | COUNT | | K/cu mm | LABORATORY | | | | | | SERVICES, | | | | | | CORE | | + + + + + + | RED CELL | 2.74 (L) | 4.00 - 5.20 | [facility] | | | COUNT | | M/cu mm | LABORATORY | | | | | | SERVICES, | | | | | | CORE | | + + + + + + | HEMOGLOBIN | 8.9 (L) | 12.0 - 16.0 | [facility] | | | | | g/dL | LABORATORY | | | | | | SERVICES, | | | | | | CORE | | + + + + + + | HEMATOCRIT | 28.0 (L) | 36.0 - 46.0 % | [facility] | | | | | | LABORATORY | | | | | | SERVICES, | | | | | | CORE | | + + + + + + | MCV | 102.2 (H) | 80.0 - 100.0 fL | [facility] | | | | | | LABORATORY | | | | | | SERVICES, | | | | | | CORE | | + + + + + + | MCHC | 31.8 (L) | 32.0 - 36.0 | [facility] | | | | | g/dL | LABORATORY | | | | | | SERVICES, | | | | | | CORE | | + + + + + + | RDW SD | 47.3 (H) | 35.1 - 46.3 fL | [facility] | | | | | | LABORATORY | | | | | | SERVICES, | | | | | | CORE | | + + + + + + | PLATELET | 341 | 150 - 400 K/cu | [facility] | | | COUNT | | mm | LABORATORY | | | | | | SERVICES, | | | | | | CORE | | + + + + + + | MPV | 8.9 (L) | 9.7 - 12.3 fL | [facility] | | | | | | LABORATORY | | | | | | SERVICES, | | | | | | CORE | | + + + + + + | NRBC% | 0.0 | 0.0 - 0.3 % | [facility] | | | | | | LABORATORY | | | | | | SERVICES, | | | | | | CORE | | + + + + + + | NRBC# | 0.00 | 0.00 - 0.02 | [facility] | | | | | K/cu mm | LABORATORY | | | | | | SERVICES, | | | | | | CORE | | + + + + + + + + | Specimen | + + | Blood - Blood | | (substance) | + + + + + + + | Performing | Address | City/State/Zipcode | Phone Number | | Organization | | | | + + + + + | [facility] | [address] | [place] [address] | | | SERVICES, CORE | [address] | | | + + + + + MAGNESIUM, PLASMA (12/10/2018 6:13 AM PDT) + +-------+ + + + | Component | Value | Ref Range | Performed | Pathologist | | | | | At | Signature | + +-------+ + + + | MAGNESIUM,P | 2.4 | 1.6 - 2.6 mg/dL | [facility] | | | LASMA | | | LABORATORY | | | | | | SADE, | | | | | | CORE | | + +-------+ + + + + + | Specimen | + + | Blood - Blood | | (substance) | + + + + + + + | Performing | Address | City/State/Zipcode | Phone Number | | Organization | | | | + + + + + | [facility] | [address] | [place] [address] | | | SERVICES, CORE | [address] | | | + + + + + RENAL FUNCTION SET (NA,K,CL,CO2,BUN,CREAT,GLUC,CA,PHOS,ALB ) (12/10/2018 6:13 AM PDT) + + + + + + | Component | Value | Ref Range | Performed | Pathologist | | | | | At | Signature | + + + + + + | GLUCOSE, | 135 (H) | 70 - 99 mg/dL | [facility] | | | PLASMA | | | LABORATORY | | | (LAB) | | | SERVICES, | | | | | | CORE | | + + + + + + | BUN, PLASMA | 14 | 6 - 20 mg/dL | [facility] | | | (LAB) | | | LABORATORY | | | | | | SERVICES, | | | | | | CORE | | + + + + + + | CREATININE | 0.55 (L) | 0.60 - 1.10 | [facility] | | | PLASMA | | mg/dL | LABORATORY | | | (LAB) | | | SERVICES, | | | | | | CORE | | + + + + + + | EGFR | >60 | >60 mL/min | [facility] | | | - | | | LABORATORY | | | [facility] | | | SERVICES, | | | | | | CORE | | + + + + + + | EGFR NON | >60 | >60 mL/min | [facility] | | | -[facility] | | | LABORATORY | | | [facility] | | | SERVICES, | | | | | | CORE | | + + + + + + | SODIUM, | 139 | 136 - 145 | [facility] | | | PLASMA | | mmol/L | LABORATORY | | | (LAB) | | | SERVICES, | | | | | | CORE | | + + + + + + | POTASSIUM, | 4.4 | 3.4 - 5.0 | [facility] | | | PLASMA | | mmol/L | LABORATORY | | | (LAB) | | | SERVICES, | | | | | | CORE | | + + + + + + | CHLORIDE, | 105 | 97 - 108 mmol/L | [facility] | | | PLASMA | | | LABORATORY | | | (LAB) | | | SERVICES, | | | | | | CORE | | + + + + + + | TOTAL CO2, | 29 | 21 - 32 mmol/L | [facility] | | | PLASMA | | | LABORATORY | | | (LAB) | | | SERVICES, | | | | | | CORE | | + + + + + + | CALCIUM, | 7.8 (L) | 8.6 - 10.2 | [facility] | | | PLASMA | | mg/dL | LABORATORY | | | (LAB) | | | SERVICES, | | | | | | CORE | | + + + + + + | CALCIUM(ALB | 9.4 | 8.6 - 10.2 | [facility] | | | CORRECTED) | | mg/dL | LABORATORY | | | | | | SERVICES, | | | | | | CORE | | + + + + + + | ALBUMIN, | 2.0 (L) | 3.5 - 4.7 g/dL | [facility] | | | PLASMA | | | LABORATORY | | | (LAB) | | | SERVICES, | | | | | | CORE | | + + + + + + | PHOSPHORUS, | 2.8 | 2.4 - 4.7 mg/dL | [facility] | | | PLASMA | | | LABORATORY | | | (LAB) | | | SERVICES, | | | | | | CORE | | + + + + + + | POTASSIUM | No Hemo | | [facility] | | | [facility] | | | LABORATORY | | | | | | SERVICES, | | | | | | CORE | | + + + + + + | ANION GAP | 5 | 4 - 11 mmol/L | [facility] | | | | | | LABORATORY | | | | | | SERVICES, | | | | | | CORE | | + + + + + + | ANION | 10 | 4 - 11 mmol/L | [facility] | | | GAP(ALB | | | LABORATORY | | | CORRECTED) | | | SERVICES, | | | | | | CORE | | + + + + + + + + | Specimen | + + | Blood - Blood | | (substance) | + + + + + | Narrative | Performed At | + + + | GFR is estimated using the MDRD equation recommended by the | [facility] | | National Kidney Disease Education Program. Estimated GFR | LABORATORY | | Interpretive Information: <60 mL/min/1.73 sq m | SERVICES, CORE | | Chronic Kidney Disease <15 mL/min/1.73 sq m | | | Kidney Failure Estimated GFR greater than 60 mL/min/1.73 sq m is of | | | limited clinical value. The MDRD equation is not valid in the | | | following situations: - Patients under 18 years of age - Severe | | | malnutrition or obesity - Vegetarian diet - Rapidly changing kidney | | | function - Amputees, paraplegics, or other muscle-wasting diseses | | + + + + + + + + | Performing | Address | City/State/Zipcode | Phone Number | | Organization | | | | + + + + + | [facility] | [address] | [place] [address] | | | SERVICES, [place] | [address] | | | + + + + + CARDIOLOGY (12/10/2018 12:00 AM PDT) + + + | Narrative | Performed At | + + + | | | + + + MAGNESIUM, PLASMA (12/09/2018 12:17 PM PDT) + +-------+ + + + | Component | Value | Ref Range | Performed | Pathologist | | | | | At | Signature | + +-------+ + + + | MAGNESIUM,P | 2.1 | 1.6 - 2.6 mg/dL | [facility] | | | LASMA | | | LABORATORY | | | | | | SERVICES, | | | | | | CORE | | + +-------+ + + + + + | Specimen | + + | Blood - Blood | | (substance) | + + + + + + + | Performing | Address | City/State/Zipcode | Phone Number | | Organization | | | | + + + + + | [facility] | [address] | [place] [address] | | | SERVICES, CORE | [address] | | | + + + + + RENAL FUNCTION SET (NA,K,CL,CO2,BUN,CREAT,GLUC,CA,PHOS,ALB ) (12/09/2018 12:17 PM PDT) + + + + + + | Component | Value | Ref Range | Performed | Pathologist | | | | | At | Signature | + + + + + + | GLUCOSE, | 92 | 70 - 99 mg/dL | [facility] | | | PLASMA | | | LABORATORY | | | (LAB) | | | SERVICES, | | | | | | CORE | | + + + + + + | BUN, PLASMA | 8 | 6 - 20 mg/dL | [facility] | | | (LAB) | | | LABORATORY | | | | | | SERVICES, | | | | | | CORE | | + + + + + + | CREATININE | 0.47 (L) | 0.60 - 1.10 | [facility] | | | PLASMA | | mg/dL | LABORATORY | | | (LAB) | | | SERVICES, | | | | | | CORE | | + + + + + + | EGFR | >60 | >60 mL/min | [facility] | | | - | | | LABORATORY | | | [facility] | | | SERVICES, | | | | | | CORE | | + + + + + + | EGFR NON | >60 | >60 mL/min | [facility] | | | -[facility] | | | LABORATORY | | | [facility] | | | SERVICES, | | | | | | CORE | | + + + + + + | SODIUM, | 143 | 136 - 145 | [facility] | | | PLASMA | | mmol/L | LABORATORY | | | (LAB) | | | SERVICES, | | | | | | CORE | | + + + + + + | POTASSIUM, | 3.3 (L) | 3.4 - 5.0 | [facility] | | | PLASMA | | mmol/L | LABORATORY | | | (LAB) | | | SERVICES, | | | | | | CORE | | + + + + + + | CHLORIDE, | 110 (H) | 97 - 108 mmol/L | [facility] | | | PLASMA | | | LABORATORY | | | (LAB) | | | SERVICES, | | | | | | CORE | | + + + + + + | TOTAL CO2, | 27 | 21 - 32 mmol/L | [facility] | | | PLASMA | | | LABORATORY | | | (LAB) | | | SERVICES, | | | | | | CORE | | + + + + + + | CALCIUM, | 7.0 (L) | 8.6 - 10.2 | [facility] | | | PLASMA | | mg/dL | LABORATORY | | | (LAB) | | | SERVICES, | | | | | | CORE | | + + + + + + | CALCIUM(ALB | 9.0 | 8.6 - 10.2 | [facility] | | | CORRECTED) | | mg/dL | LABORATORY | | | | | | SERVICES, | | | | | | CORE | | + + + + + + | ALBUMIN, | 1.5 (L) | 3.5 - 4.7 g/dL | [facility] | | | PLASMA | | | LABORATORY | | | (LAB) | | | SERVICES, | | | | | | CORE | | + + + + + + | PHOSPHORUS, | 1.6 (L) | 2.4 - 4.7 mg/dL | [facility] | | | PLASMA | | | LABORATORY | | | (LAB) | | | SERVICES, | | | | | | CORE | | + + + + + + | POTASSIUM | No Hemo | | [facility] | | | CMNT | | | LABORATORY | | | | | | SERVICES, | | | | | | CORE | | + + + + + + | ANION GAP | 6 | 4 - 11 mmol/L | [facility] | | | | | | LABORATORY | | | | | | SERVICES, | | | | | | CORE | | + + + + + + | ANION | 12 (H) | 4 - 11 mmol/L | [facility] | | | GAP(ALB | | | LABORATORY | | | CORRECTED) | | | SERVICES, | | | | | | CORE | | + + + + + + + + | Specimen | + + | Blood - Blood | | (substance) | + + + + + | Narrative | Performed At | + + + | GFR is estimated using the MDRD equation recommended by the | [facility] | | National Kidney Disease Education Program. Estimated GFR | LABORATORY | | Interpretive Information: <60 mL/min/1.73 sq m | SERVICES, CORE | | Chronic Kidney Disease <15 mL/min/1.73 sq m | | | Kidney Failure Estimated GFR greater than 60 mL/min/1.73 sq m is of | | | limited clinical value. The MDRD equation is not valid in the | | | following situations: - Patients under 18 years of age - Severe | | | malnutrition or obesity - Vegetarian diet - Rapidly changing kidney | | | function - Amputees, paraplegics, or other muscle-wasting diseses | | + + + + + + + + | Performing | Address | City/State/Zipcode | Phone Number | | Organization | | | | + + + + + | [facility] | [address] | [place] [address] | | | SERVICES, CORE | [address] | | | + + + + + CBC (HEMOGRAM) ONLY (12/09/2018 6:35 AM PDT) + + + + + + | Component | Value | Ref Range | Performed | Pathologist | | | | | At | Signature | + + + + + + | WHITE CELL | 7.77 | 3.50 - 10.80 | [facility] | | | COUNT | | K/cu mm | LABORATORY | | | | | | SERVICES, | | | | | | CORE | | + + + + + + | RED CELL | 2.60 (L) | 4.00 - 5.20 | [facility] | | | COUNT | | M/cu mm | LABORATORY | | | | | | SERVICES, | | | | | | CORE | | + + + + + + | HEMOGLOBIN | 8.4 (L) | 12.0 - 16.0 | [facility] | | | | | g/dL | LABORATORY | | | | | | SERVICES, | | | | | | CORE | | + + + + + + | HEMATOCRIT | 26.5 (L) | 36.0 - 46.0 % | [facility] | | | | | | LABORATORY | | | | | | SERVICES, | | | | | | CORE | | + + + + + + | MCV | 101.9 (H) | 80.0 - 100.0 fL | [facility] | | | | | | LABORATORY | | | | | | SERVICES, | | | | | | CORE | | + + + + + + | MCHC | 31.7 (L) | 32.0 - 36.0 | [facility] | | | | | g/dL | LABORATORY | | | | | | SERVICES, | | | | | | CORE | | + + + + + + | RDW SD | 46.3 | 35.1 - 46.3 fL | [facility] | | | | | | LABORATORY | | | | | | SERVICES, | | | | | | CORE | | + + + + + + | PLATELET | 341 | 150 - 400 K/cu | [facility] | | | COUNT | | mm | LABORATORY | | | | | | SERVICES, | | | | | | CORE | | + + + + + + | MPV | 9.0 (L) | 9.7 - 12.3 fL | [facility] | | | | | | LABORATORY | | | | | | SERVICES, | | | | | | CORE | | + + + + + + | NRBC% | 0.0 | 0.0 - 0.3 % | [facility] | | | | | | LABORATORY | | | | | | SERVICES, | | | | | | CORE | | + + + + + + | NRBC# | 0.00 | 0.00 - 0.02 | [facility] | | | | | K/cu mm | LABORATORY | | | | | | SERVICES, | | | | | | CORE | | + + + + + + + + | Specimen | + + | Blood - Blood | | (substance) | + + + + + + + | Performing | Address | City/State/Zipcode | Phone Number | | Organization | | | | + + + + + | [facility] | [address] | [place] [address] | | | SERVICES, [place] | [address] | | | + + + + + MAGNESIUM, PLASMA (12/09/2018 6:35 AM PDT) + +-------+ + + + | Component | Value | Ref Range | Performed | Pathologist | | | | | At | Signature | + +-------+ + + + | MAGNESIUM,P | 2.4 | 1.6 - 2.6 mg/dL | [facility] | | | LASMA | | | LABORATORY | | | | | | SERVICES, | | | | | | CORE | | + +-------+ + + + + + | Specimen | + + | Blood - Blood | | (substance) | + + + + + | Narrative | Performed At | + + + | 2 hrs after intravenous magnesium repletion if magnesium < 1.6. 6 | [facility] | | hrs after PO potassium administration if potassium < 3; 2 hrs after | LABORATORY | | intravenous potassium repletion if potassium < 3. | SERVICES, CORE | + + + + + + + + | Performing | Address | City/State/Zipcode | Phone Number | | Organization | | | | + + + + + | [facility] | [address] | [place] [address] | | | SERVICES, CORE | [address] | | | + + + + + POTASSIUM, PLASMA (12/09/2018 6:35 AM PDT) + +---------+ + + + | Component | Value | Ref Range | Performed | Pathologist | | | | | At | Signature | + +---------+ + + + | POTASSIUM, | 3.7 | 3.4 - 5.0 | [facility] | | | PLASMA | | mmol/L | LABORATORY | | | (LAB) | | | SERVICES, | | | | | | CORE | | + +---------+ + + + | POTASSIUM | No Hemo | | [facility] | | | CMNT | | | LABORATORY | | | | | | SERVICES, | | | | | | CORE | | + +---------+ + + + + + | Specimen | + + | Blood - Blood | | (substance) | + + + + + | Narrative | Performed At | + + + | 2 hrs after intravenous magnesium repletion if magnesium < 1.6. 6 | [facility] | | hrs after PO potassium administration if potassium < 3; 2 hrs after | LABORATORY | | intravenous potassium repletion if potassium < 3. | [facility] | + + + + + + + + | Performing | Address | City/State/Zipcode | Phone Number | | Organization | | | | + + + + + | [facility] | [address] | [place] [address] | | | [facility] ST[facility] | [address] | | | + + + + + X-RAY PORTABLE CHEST 1 VIEW (12/09/2018 5:41 AM PDT) + + | Specimen | + + | | + + + + + | Narrative | Performed At | + + + | EXAM: NE CHEST 1 VIEW HISTORY: Shortness of breath. 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 COMPARISON: Yesterday FINDINGS: | RADIOLOGY VOICE | | Changes of left upper lobectomy redemonstrated. Left-sided chest tube | RECOGNITION 2 | | remains in place. Extensive right mid and upper lung patchy | | | groundglass and consolidative opacity is unchanged. Small right | | | pleural effusion noted. There is no pneumothorax. IMPRESSION: | | | Unchanged right-sided patchy groundglass and consolidative opacities | | | most likely related to aspiration/evolving aspiration pneumonia. I | | | have personally reviewed the images and, if necessary, edited the | | | report. I agree with the report as now presented. Final | | | signature: Parmjit Escobar MD 12/09/2018 7:44 AM Preliminary: Parmjit | | | MD hSawn Dictation initiated: Parmjit Escobar MD | | | 12/09/2018 7:42 AM | | + + + + + | Procedure Note | + + | 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, Radiant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 - 12/09/2018 7:45 AM PDT EXAM: NE CHEST 1 | | VIEW HISTORY: Shortness of breath. Status post left upper lobectomy. COMPARISON: | | Yesterday FINDINGS: Changes of left upper lobectomy redemonstrated. Left-sided chest | | tube remains in place. Extensive right mid and upper lung patchy groundglass and | | consolidative opacity is unchanged. Small right pleural effusion noted. There is no | | pneumothorax. IMPRESSION: Unchanged right-sided patchy groundglass and consolidative | | opacities most likely related to aspiration/evolving aspiration pneumonia. I have | | personally reviewed the images and, if necessary, edited the report. I agree with the | | report as now presented. Final signature: Parmjit Escobar MD 12/09/2018 7:44 AM | | Preliminary: Parmjit Escobar MD Dictation initiated: Parmjit Escobar MD 12/09/2018 | | 7:42 AM | | | |Unchanged right-sided patchy groundglass and consolidative opacities most likely related to aspiration/evolving aspiration pneumonia. | | | |I have personally reviewed the images and, if necessary, edited the report. I agree with th e report as now presented. | | | |Final signature: Parmjit Escobar MD 12/09/2018 7:44 AM | |Preliminary: Parmjit Escobar MD | |Dictation initiated: Parmjit Escobar MD 12/09/2018 7:42 AM | + + + +---------+ + + | Performing | Address | City/State/Zipcode | Phone Number | | Organization | | | | + +---------+ + + | [facility] | | | | | VOICE RECOGNITION 2 | | | | + +---------+ + + CARDIOLOGY (12/09/2018 12:00 AM PDT) + + + | Narrative | Performed At | + + + | | | + + + MAGNESIUM, PLASMA (12/08/2018 11:16 PM PDT) + +-------+ + + + | Component | Value | Ref Range | Performed | Pathologist | | | | | At | Signature | + +-------+ + + + | MAGNESIUM,P | 1.8 | 1.6 - 2.6 mg/dL | [facility] | | | LASMA | | | LABORATORY | | | | | | SERVICES, | | | | | | CORE | | + +-------+ + + + + + | Specimen | + + | Blood - Blood | | (substance) | + + + + + + + | Performing | Address | City/State/Zipcode | Phone Number | | Organization | | | | + + + + + | [facility] | [address] | [place] [address] | | | [place] STUART | [address] | | | + + + + + RENAL FUNCTION SET (NA,K,CL,CO2,BUN,CREAT,GLUC,CA,PHOS,ALB ) (12/08/2018 11:16 PM PDT) + + + + + + | Component | Value | Ref Range | Performed | Pathologist | | | | | At | Signature | + + + + + + | GLUCOSE, | 98 | 70 - 99 mg/dL | [facility] | | | PLASMA | | | LABORATORY | | | (LAB) | | | SERVICES, | | | | | | CORE | | + + + + + + | BUN, PLASMA | 9 | 6 - 20 mg/dL | [facility] | | | (LAB) | | | LABORATORY | | | | | | SERVICES, | | | | | | CORE | | + + + + + + | CREATININE | 0.54 (L) | 0.60 - 1.10 | [facility] | | | PLASMA | | mg/dL | LABORATORY | | | (LAB) | | | SERVICES, | | | | | | CORE | | + + + + + + | EGFR | >60 | >60 mL/min | [facility] | | | - | | | LABORATORY | | | [facility] | | | SERVICES, | | | | | | CORE | | + + + + + + | EGFR NON | >60 | >60 mL/min | [facility] | | | -[facility] | | | LABORATORY | | | [facility] | | | SERVICES, | | | | | | CORE | | + + + + + + | SODIUM, | 140 | 136 - 145 | [facility] | | | PLASMA | | mmol/L | LABORATORY | | | (LAB) | | | SERVICES, | | | | | | CORE | | + + + + + + | POTASSIUM, | 3.2 (L) | 3.4 - 5.0 | [facility] | | | PLASMA | | mmol/L | LABORATORY | | | (LAB) | | | SERVICES, | | | | | | CORE | | + + + + + + | CHLORIDE, | 104 | 97 - 108 mmol/L | [facility] | | | PLASMA | | | LABORATORY | | | (LAB) | | | SERVICES, | | | | | | CORE | | + + + + + + | TOTAL CO2, | 32 | 21 - 32 mmol/L | [facility] | | | PLASMA | | | LABORATORY | | | (LAB) | | | SERVICES, | | | | | | CORE | | + + + + + + | CALCIUM, | 8.2 (L) | 8.6 - 10.2 | [facility] | | | PLASMA | | mg/dL | LABORATORY | | | (LAB) | | | SERVICES, | | | | | | CORE | | + + + + + + | CALCIUM(ALB | 9.7 | 8.6 - 10.2 | [facility] | | | CORRECTED) | | mg/dL | LABORATORY | | | | | | SERVICES, | | | | | | CORE | | + + + + + + | ALBUMIN, | 2.1 (L) | 3.5 - 4.7 g/dL | [facility] | | | PLASMA | | | LABORATORY | | | (LAB) | | | SERVICES, | | | | | | CORE | | + + + + + + | PHOSPHORUS, | 2.4 | 2.4 - 4.7 mg/dL | [facility] | | | PLASMA | | | LABORATORY | | | (LAB) | | | SERVICES, | | | | | | CORE | | + + + + + + | POTASSIUM | No Hemo | | [facility] | | | CMNT | | | LABORATORY | | | | | | SERVICES, | | | | | | CORE | | + + + + + + | ANION GAP | 4 | 4 - 11 mmol/L | [facility] | | | | | | LABORATORY | | | | | | SERVICES, | | | | | | CORE | | + + + + + + | ANION | 8 | 4 - 11 mmol/L | [facility] | | | GAP(ALB | | | LABORATORY | | | CORRECTED) | | | SERVICES, | | | | | | CORE | | + + + + + + + + | Specimen | + + | Blood - Blood | | (substance) | + + + + + | Narrative | Performed At | + + + | GFR is estimated using the MDRD equation recommended by the | [facility] | | National Kidney Disease Education Program. Estimated GFR | LABORATORY | | Interpretive Information: <60 mL/min/1.73 sq m | SERVICES, CORE | | Chronic Kidney Disease <15 mL/min/1.73 sq m | | | Kidney Failure Estimated GFR greater than 60 mL/min/1.73 sq m is of | | | limited clinical value. The MDRD equation is not valid in the | | | following situations: - Patients under 18 years of age - Severe | | | malnutrition or obesity - Vegetarian diet - Rapidly changing kidney | | | function - Amputees, paraplegics, or other muscle-wasting diseses | | + + + + + + + + | Performing | Address | City/State/Zipcode | Phone Number | | Organization | | | | + + + + + | [facility] | [address] | [place] [address] | | | SERVICES, CORE | [address] | | | + + + + + CAPILLARY BLOOD GLUCOSE (NO CHG), POC (12/08/2018 8:52 PM PDT) + +---------+ + + + | Component | Value | Ref Range | Performed | Pathologist | | | | | At | Signature | + +---------+ + + + | BLOOD | 108 (H) | 60 - 99 mg/dL | [facility] | | | GLUCOSE, | | | [facility] | | | POC | | | [facility] | | | | | | OF CARE | | | | | | TESTS | | + +---------+ + + + + + | Specimen | + + | | + + + + + + + | Performing | Address | City/State/Zipcode | Phone Number | | Organization | | | | + + + + + | [facility] | [address] | [place], [place] | | | [facility] OF CARE | [facility] | [phone] | | | TESTS | | | | + + + + + MAGNESIUM, PLASMA (12/08/2018 12:56 PM PDT) + +-------+ + + + | Component | Value | Ref Range | Performed | Pathologist | | | | | At | Signature | + +-------+ + + + | MAGNESIUM,P | 2.2 | 1.6 - 2.6 mg/dL | [facility] | | | LASMA | | | LABORATORY | | | | | | SERVICES, | | | | | | CORE | | + +-------+ + + + + + | Specimen | + + | Blood - Blood | | (substance) | + + + + + + + | Performing | Address | City/State/Zipcode | Phone Number | | Organization | | | | + + + + + | [facility] | [address] | [place] [address] | | | SERVICES, CORE | [address] | | | + + + + + RENAL FUNCTION SET (NA,K,CL,CO2,BUN,CREAT,GLUC,CA,PHOS,ALB ) (12/08/2018 12:56 PM PDT) + + + + + + | Component | Value | Ref Range | Performed | Pathologist | | | | | At | Signature | + + + + + + | GLUCOSE, | 106 (H) | 70 - 99 mg/dL | [facility] | | | PLASMA | | | LABORATORY | | | (LAB) | | | SERVICES, | | | | | | CORE | | + + + + + + | BUN, PLASMA | 12 | 6 - 20 mg/dL | [facility] | | | (LAB) | | | LABORATORY | | | | | | SERVICES, | | | | | | CORE | | + + + + + + | CREATININE | 0.51 (L) | 0.60 - 1.10 | [facility] | | | PLASMA | | mg/dL | LABORATORY | | | (LAB) | | | SERVICES, | | | | | | CORE | | + + + + + + | EGFR | >60 | >60 mL/min | [facility] | | | - | | | LABORATORY | | | [facility] | | | SERVICES, | | | | | | CORE | | + + + + + + | EGFR NON | >60 | >60 mL/min | [facility] | | | -[facility] | | | LABORATORY | | | [facility] | | | SERVICES, | | | | | | CORE | | + + + + + + | SODIUM, | 141 | 136 - 145 | [facility] | | | PLASMA | | mmol/L | LABORATORY | | | (LAB) | | | SERVICES, | | | | | | CORE | | + + + + + + | POTASSIUM, | 4.3 | 3.4 - 5.0 | [facility] | | | PLASMA | | mmol/L | LABORATORY | | | (LAB) | | | SERVICES, | | | | | | CORE | | + + + + + + | CHLORIDE, | 109 (H) | 97 - 108 mmol/L | [facility] | | | PLASMA | | | LABORATORY | | | (LAB) | | | SERVICES, | | | | | | CORE | | + + + + + + | TOTAL CO2, | 28 | 21 - 32 mmol/L | [facility] | | | PLASMA | | | LABORATORY | | | (LAB) | | | SERVICES, | | | | | | CORE | | + + + + + + | CALCIUM, | 8.6 | 8.6 - 10.2 | [facility] | | | PLASMA | | mg/dL | LABORATORY | | | (LAB) | | | SERVICES, | | | | | | CORE | | + + + + + + | CALCIUM(ALB | 9.8 | 8.6 - 10.2 | [facility] | | | CORRECTED) | | mg/dL | LABORATORY | | | | | | SERVICES, | | | | | | CORE | | + + + + + + | ALBUMIN, | 2.5 (L) | 3.5 - 4.7 g/dL | [facility] | | | PLASMA | | | LABORATORY | | | (LAB) | | | SERVICES, | | | | | | CORE | | + + + + + + | PHOSPHORUS, | 2.1 (L) | 2.4 - 4.7 mg/dL | [facility] | | | PLASMA | | | LABORATORY | | | (LAB) | | | SERVICES, | | | | | | CORE | | + + + + + + | POTASSIUM | No Hemo | | [facility] | | | CMNT | | | LABORATORY | | | | | | SERVICES, | | | | | | CORE | | + + + + + + | ANION GAP | 4 | 4 - 11 mmol/L | [facility] | | | | | | LABORATORY | | | | | | SERVICES, | | | | | | CORE | | + + + + + + | ANION | 7 | 4 - 11 mmol/L | [facility] | | | GAP(ALB | | | LABORATORY | | | CORRECTED) | | | SERVICES, | | | | | | CORE | | + + + + + + + + | Specimen | + + | Blood - Blood | | (substance) | + + + + + | Narrative | Performed At | + + + | GFR is estimated using the MDRD equation recommended by the | [facility] | | National Kidney Disease Education Program. Estimated GFR | LABORATORY | | Interpretive Information: <60 mL/min/1.73 sq m | SERVICES, CORE | | Chronic Kidney Disease <15 mL/min/1.73 sq m | | | Kidney Failure Estimated GFR greater than 60 mL/min/1.73 sq m is of | | | limited clinical value. The MDRD equation is not valid in the | | | following situations: - Patients under 18 years of age - Severe | | | malnutrition or obesity - Vegetarian diet - Rapidly changing kidney | | | function - Amputees, paraplegics, or other muscle-wasting diseses | | + + + + + + + + | Performing | Address | City/State/Zipcode | Phone Number | | Organization | | | | + + + + + | [facility] | [address] | [place] [address] | | | SERVICES, CORE | [address] | | | + + + + + RENAL FUNCTION SET (NA,K,CL,CO2,BUN,CREAT,GLUC,CA,PHOS,ALB ) (12/08/2018 6:46 AM PDT) + + + + + + | Component | Value | Ref Range | Performed | Pathologist | | | | | At | Signature | + + + + + + | GLUCOSE, | 117 (H) | 70 - 99 mg/dL | [facility] | | | PLASMA | | | LABORATORY | | | (LAB) | | | SERVICES, | | | | | | CORE | | + + + + + + | BUN, PLASMA | 12 | 6 - 20 mg/dL | [facility] | | | (LAB) | | | LABORATORY | | | | | | SERVICES, | | | | | | CORE | | + + + + + + | CREATININE | 0.46 (L) | 0.60 - 1.10 | [facility] | | | PLASMA | | mg/dL | LABORATORY | | | (LAB) | | | SERVICES, | | | | | | CORE | | + + + + + + | EGFR | >60 | >60 mL/min | [facility] | | | - | | | LABORATORY | | | [facility] | | | SERVICES, | | | | | | CORE | | + + + + + + | EGFR NON | >60 | >60 mL/min | [facility] | | | -[facility] | | | LABORATORY | | | [facility] | | | SERVICES, | | | | | | CORE | | + + + + + + | SODIUM, | 146 (H) | 136 - 145 | [facility] | | | PLASMA | | mmol/L | LABORATORY | | | (LAB) | | | SERVICES, | | | | | | CORE | | + + + + + + | POTASSIUM, | 2.9 (L) | 3.4 - 5.0 | [facility] | | | PLASMA | | mmol/L | LABORATORY | | | (LAB) | | | SERVICES, | | | | | | CORE | | + + + + + + | CHLORIDE, | 120 (H) | 97 - 108 mmol/L | [facility] | | | PLASMA | | | LABORATORY | | | (LAB) | | | SERVICES, | | | | | | CORE | | + + + + + + | TOTAL CO2, | 21 | 21 - 32 mmol/L | [facility] | | | PLASMA | | | LABORATORY | | | (LAB) | | | SERVICES, | | | | | | CORE | | + + + + + + | CALCIUM, | 5.8 (LL) | 8.6 - 10.2 | [facility] | | | PLASMA | | mg/dL | LABORATORY | | | (LAB) | | | SERVICES, | | | | | | CORE | | + + + + + + | CALCIUM(ALB | 7.9 (L) | 8.6 - 10.2 | [facility] | | | CORRECTED) | | mg/dL | LABORATORY | | | | | | SERVICES, | | | | | | CORE | | + + + + + + | ALBUMIN, | 1.4 (L) | 3.5 - 4.7 g/dL | [facility] | | | PLASMA | | | LABORATORY | | | (LAB) | | | SERVICES, | | | | | | CORE | | + + + + + + | PHOSPHORUS, | 0.5 (LL) | 2.4 - 4.7 mg/dL | [facility] | | | PLASMA | | | LABORATORY | | | (LAB) | | | SERVICES, | | | | | | CORE | | + + + + + + | POTASSIUM | No Hemo | | [facility] | | | CMNT | | | LABORATORY | | | | | | SERVICES, | | | | | | CORE | | + + + + + + | ANION GAP | 5 | 4 - 11 mmol/L | [facility] | | | | | | LABORATORY | | | | | | SERVICES, | | | | | | CORE | | + + + + + + | ANION | 11 | 4 - 11 mmol/L | [facility] | | | GAP(ALB | | | LABORATORY | | | CORRECTED) | | | SERVICES, | | | | | | CORE | | + + + + + + + + | Specimen | + + | Blood - Blood | | (substance) | + + + + + | Narrative | Performed At | + + + | GFR is estimated using the MDRD equation recommended by the | [facility] | | National Kidney Disease Education Program. Estimated GFR | LABORATORY | | Interpretive Information: <60 mL/min/1.73 sq m | SERVICES, CORE | | Chronic Kidney Disease <15 mL/min/1.73 sq m | | | Kidney Failure Estimated GFR greater than 60 mL/min/1.73 sq m is of | | | limited clinical value. The MDRD equation is not valid in the | | | following situations: - Patients under 18 years of age - Severe | | | malnutrition or obesity - Vegetarian diet - Rapidly changing kidney | | | function - Amputees, paraplegics, or other muscle-wasting diseses | | + + + + + + + + | Performing | Address | City/State/Zipcode | Phone Number | | Organization | | | | + + + + + | [facility] | [id number] | [place] [address] | | | KOKI STUART | [address] | | | + + + + + X-RAY PORTABLE CHEST 1 VIEW (12/08/2018 4:58 AM PDT) + + | Specimen | + + | | + + + + + | Narrative | Performed At | + + + | EXAM: NE CHEST 1 VIEW HISTORY: SoB COMPARISON: Chest | [facility] | | radiograph from 12/07/2018. FINDINGS: Stable positions of the | RADIOLOGY VOICE | | left apical chest tube and epidural catheter tubing. The | RECOGNITION 2 | | cardiomediastinal silhouette is unchanged. There is been interval | | | decrease in the diffuse right lung patchy groundglass opacities. Trace | | | bilateral pleural effusions and mild bibasilar atelectasis are | | | slightly more prominent. No definite pneumothorax is seen. The left | | | chest wall subcutaneous emphysema has resolved. There is no displaced | | | fracture. IMPRESSION: 1. Decreased diffuse right lung patchy | | | groundglass opacities could represent resolving sequela of | | | aspiration/infection. 2. Trace bilateral pleural effusions and | | | mild bibasilar atelectasis. I have personally reviewed the images | | | and, if necessary, edited the report. I agree with the report as now | | | presented. Final signature: Charli Harris MD 12/08/2018 10:58 AM | | | Preliminary: Charli Harris MD Dictation initiated: Charli Harris | | Bhavik YBARRA 12/08/2018 10:55 AM | | + + + + + | Procedure Note | + + | 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, Radiant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 - 12/08/2018 10:59 AM PDT EXAM: NE CHEST 1 | | VIEW HISTORY: SoB COMPARISON: Chest radiograph from 12/07/2018. FINDINGS: Stable | | positions of the left apical chest tube and epidural catheter tubing. The | | cardiomediastinal silhouette is unchanged. There is been interval decrease in the | | diffuse right lung patchy groundglass opacities. Trace bilateral pleural effusions and | | mild bibasilar atelectasis are slightly more prominent. No definite pneumothorax is | | seen. The left chest wall subcutaneous emphysema has resolved. There is no displaced | | fracture. IMPRESSION: 1. Decreased diffuse right lung patchy groundglass opacities could | | represent resolving sequela of aspiration/infection. 2. Trace bilateral pleural | | effusions and mild bibasilar atelectasis. I have personally reviewed the images and, if | | necessary, edited the report. I agree with the report as now presented. Final | | signature: Charli Harris MD 12/08/2018 10:58 AM Preliminary: Charli Harris MD Dictation | | initiated: Charli Harris MD 12/08/2018 10:55 AM | |IMPRESSION: | | | |1. Decreased diffuse right lung patchy groundglass opacities could represent resolving sequ samantha of aspiration/infection. | | | |2. Trace bilateral pleural effusions and mild bibasilar atelectasis. | | | |I have personally reviewed the images and, if necessary, edited the report. I agree with th e report as now presented. | | | |Final signature: Charli Harris MD 12/08/2018 10:58 AM | |Preliminary: Charli Harris MD | |Dictation initiated: Charli Harris MD 12/08/2018 10:55 AM | + + + +---------+ + + | Performing | Address | City/State/Zipcode | Phone Number | | Organization | | | | + +---------+ + + | [facility] | | | | | VOICE RECOGNITION 2 | | | | + +---------+ + + MAGNESIUM, PLASMA (12/08/2018 4:29 AM PDT) + +-------+ + + + | Component | Value | Ref Range | Performed | Pathologist | | | | | At | Signature | + +-------+ + + + | MAGNESIUM,P | 2.0 | 1.6 - 2.6 mg/dL | [facility] | | | LASMA | | | LABORATORY | | | | | | SERVICES, | | | | | | CORE | | + +-------+ + + + + + | Specimen | + + | Blood - Blood | | (substance) | + + + + + + + | Performing | Address | City/State/Zipcode | Phone Number | | Organization | | | | + + + + + | [facility] | [address] | [place] [address] | | | SERVICES, CORE | [address] | | | + + + + + RENAL FUNCTION SET (NA,K,CL,CO2,BUN,CREAT,GLUC,CA,PHOS,ALB ) (12/08/2018 4:29 AM PDT) + + + + + + | Component | Value | Ref Range | Performed | Pathologist | | | | | At | Signature | + + + + + + | GLUCOSE, | 153 (H) | 70 - 99 mg/dL | [facility] | | | PLASMA | | | LABORATORY | | | (LAB) | | | SERVICES, | | | | | | CORE | | + + + + + + | BUN, PLASMA | 13 | 6 - 20 mg/dL | [facility] | | | (LAB) | | | LABORATORY | | | | | | SERVICES, | | | | | | CORE | | + + + + + + | CREATININE | 0.55 (L) | 0.60 - 1.10 | [facility] | | | PLASMA | | mg/dL | LABORATORY | | | (LAB) | | | SERVICES, | | | | | | CORE | | + + + + + + | EGFR | >60 | >60 mL/min | [facility] | | | - | | | LABORATORY | | | [place] | | | SERVICES, | | | | | | CORE | | + + + + + + | EGFR NON | >60 | >60 mL/min | [facility] | | | -INGRIS | | | LABORATORY | | | [place] | | | SERVICES, | | | | | | CORE | | + + + + + + | SODIUM, | 143 | 136 - 145 | [facility] | | | PLASMA | | mmol/L | LABORATORY | | | (LAB) | | | SERVICES, | | | | | | CORE | | + + + + + + | POTASSIUM, | 3.9 | 3.4 - 5.0 | [facility] | | | PLASMA | | mmol/L | LABORATORY | | | (LAB) | | | SERVICES, | | | | | | CORE | | + + + + + + | CHLORIDE, | 111 (H) | 97 - 108 mmol/L | [facility] | | | PLASMA | | | LABORATORY | | | (LAB) | | | SERVICES, | | | | | | CORE | | + + + + + + | TOTAL CO2, | 27 | 21 - 32 mmol/L | [facility] | | | PLASMA | | | LABORATORY | | | (LAB) | | | SERVICES, | | | | | | CORE | | + + + + + + | CALCIUM, | 8.1 (L) | 8.6 - 10.2 | [facility] | | | PLASMA | | mg/dL | LABORATORY | | | (LAB) | | | SERVICES, | | | | | | CORE | | + + + + + + | CALCIUM(ALB | 9.6 | 8.6 - 10.2 | [facility] | | | CORRECTED) | | mg/dL | LABORATORY | | | | | | SERVICES, | | | | | | CORE | | + + + + + + | ALBUMIN, | 2.1 (L) | 3.5 - 4.7 g/dL | [facility] | | | PLASMA | | | LABORATORY | | | (LAB) | | | SERVICES, | | | | | | CORE | | + + + + + + | PHOSPHORUS, | 0.9 (LL) | 2.4 - 4.7 mg/dL | [facility] | | | PLASMA | | | LABORATORY | | | (LAB) | | | SERVICES, | | | | | | CORE | | + + + + + + | POTASSIUM | No Hemo | | [facility] | | | CMNT | | | LABORATORY | | | | | | SERVICES, | | | | | | CORE | | + + + + + + | ANION GAP | 5 | 4 - 11 mmol/L | [facility] | | | | | | LABORATORY | | | | | | SERVICES, | | | | | | CORE | | + + + + + + | ANION | 9 | 4 - 11 mmol/L | [facility] | | | GAP(ALB | | | LABORATORY | | | CORRECTED) | | | SERVICES, | | | | | | CORE | | + + + + + + + + | Specimen | + + | Blood - Blood | | (substance) | + + + + + | Narrative | Performed At | + + + | GFR is estimated using the MDRD equation recommended by the | [facility] | | National Kidney Disease Education Program. Estimated GFR | LABORATORY | | Interpretive Information: <60 mL/min/1.73 sq m | SERVICES, CORE | | Chronic Kidney Disease <15 mL/min/1.73 sq m | | | Kidney Failure Estimated GFR greater than 60 mL/min/1.73 sq m is of | | | limited clinical value. The MDRD equation is not valid in the | | | following situations: - Patients under 18 years of age - Severe | | | malnutrition or obesity - Vegetarian diet - Rapidly changing kidney | | | function - Amputees, paraplegics, or other muscle-wasting diseses | | + + + + + + + + | Performing | Address | City/State/Zipcode | Phone Number | | Organization | | | | + + + + + | [facility] | [address] | [place] [address] | | | SERVICES, CORE | [address] | | | + + + + + CBC (HEMOGRAM) ONLY (12/08/2018 4:28 AM PDT) + + + + + + | Component | Value | Ref Range | Performed | Pathologist | | | | | At | Signature | + + + + + + | WHITE CELL | 11.87 (H) | 3.50 - 10.80 | [facility] | | | COUNT | | K/cu mm | LABORATORY | | | | | | SERVICES, | | | | | | CORE | | + + + + + + | RED CELL | 2.51 (L) | 4.00 - 5.20 | [facility] | | | COUNT | | M/cu mm | LABORATORY | | | | | | SERVICES, | | | | | | CORE | | + + + + + + | HEMOGLOBIN | 8.2 (L) | 12.0 - 16.0 | [facility] | | | | | g/dL | LABORATORY | | | | | | SERVICES, | | | | | | CORE | | + + + + + + | HEMATOCRIT | 25.8 (L) | 36.0 - 46.0 % | [facility] | | | | | | LABORATORY | | | | | | SERVICES, | | | | | | CORE | | + + + + + + | MCV | 102.8 (H) | 80.0 - 100.0 fL | [facility] | | | | | | LABORATORY | | | | | | SERVICES, | | | | | | CORE | | + + + + + + | MCHC | 31.8 (L) | 32.0 - 36.0 | [facility] | | | | | g/dL | LABORATORY | | | | | | SERVICES, | | | | | | CORE | | + + + + + + | RDW SD | 46.2 | 35.1 - 46.3 fL | [facility] | | | | | | LABORATORY | | | | | | SERVICES, | | | | | | CORE | | + + + + + + | PLATELET | 261 | 150 - 400 K/cu | [facility] | | | COUNT | | mm | LABORATORY | | | | | | SERVICES, | | | | | | CORE | | + + + + + + | MPV | 9.3 (L) | 9.7 - 12.3 fL | [facility] | | | | | | LABORATORY | | | | | | SERVICES, | | | | | | CORE | | + + + + + + | NRBC% | 0.0 | 0.0 - 0.3 % | [facility] | | | | | | LABORATORY | | | | | | SERVICES, | | | | | | CORE | | + + + + + + | NRBC# | 0.00 | 0.00 - 0.02 | [facility] | | | | | K/cu mm | LABORATORY | | | | | | SERVICES, | | | | | | CORE | | + + + + + + + + | Specimen | + + | Blood - Blood | | (substance) | + + + + + + + | Performing | Address | City/State/Zipcode | Phone Number | | Organization | | | | + + + + + | [facility] | [address] | [place] [address] | | | [facility] | [address] | | | + + + + + PEG (PERCUTANEOUS ENDOSCOPIC GASTROSTOMY) (12/07/2018 3:41 PM PDT) + + + | Narrative | Performed At | + + + | Derrick Handley MD 12/15/2018 5:05 PM Procedure Note: | | | Percutaneous Endoscopic Gastrostomy (PEG) DATE OF PROCEDURE | | | 12/07/2018 Staff: PAULA YBARRA, DERRICK Resident: Dereck | | | MD Jennifer, Doris Weldon MD Anesthesia: GA with ETT | | | Indication: Need for prolonged enteral access. Consent: | | | Discussion of the risks, benefits, and alternatives was had with the | | | patient prior to the procedure. All questions were satisfactorily | | | answered and a signed consent form for this procedure was obtained | | | and place on chart. Procedure Details: The patient was identified | | | in the preop holding area, and consent was verified. She was brought | | | back to the operating room, laid supine on the stretcher. | | | Bilateral SCDs were placed. General endotracheal anesthesia was | | | induced smoothly. An esophagogastroduodenoscope (EGD) was | | | carefully introduced into the patient | | | | | | s stomach under direct visualization. The esophagus, stomach, | | | pylorus and duodenal bulb was normal including on retroflexion. The | | | anterior stomach wall was trans-illuminated and an appropriate site | | | was selected for PEG placement. Ballotment of the anterior abdominal | | | wall showed appropriate transmission of motion on the gastric wall. | | | This site was then prepped and draped in the usual sterile | | | fashion. 5 ml of 1% lidocaine was instilled for local anesthesia and | | | a 0.5 cm incision was made. An introducer needle was placed | | | percutaneously through this incision and into the stomach with EGD | | | visualization. The guidewire was then introduced via the needle and | | | snared with the gastroscope. The gastroscope and guidewire were | | | withdrawn. The PEG apparatus was secured to the guidewire and the | | | PEG then pulled into the stomach and externalized with the | | | guidewire. This process was visualized with the EGD and no problems | | | were observed. The PEG tube was secured to the skin. The gastric air | | | was suctioned out and the gastroscope was withdrawn. Findings: | | | There were no changes to vital signs. Patient did tolerate | | | procedure well. EBL: Minimal Complications: None | | | immediate Dr. Handley was present during this operation. | | | Dereck Rodriguez MD [facility] [address] [facility] | | | [place] [address] | | + + + PROCEDURE NOTE (12/07/2018 3:05 PM PDT) + + + | Narrative | Performed At | + + + | Alma Cat RN 12/07/2018 3:06 PM Midline Insertion | | | Documentation Note Today's date: 12-07-18 Start Time: At 1000, | | | prior to the beginning of the procedure, the team paused to verify | | | the patient's identity, the procedure to be performed and the | | | correct side/site. The patient was positioned appropriately. Any | | | safety precautions were addressed. Patient Location (Unit/Room#): | | | 12k rm 17 Indication for Midline: Difficult access Procedure | | | Details: Masks were worn by all members in the room where the | | | procedure was performed. Prior to initiating the procedure, the | | | practitioner thoroughly washed their hands and donned sterile | | | gloves. The procedure was performed using sterile barrier | | | precautions. An ultrasound was used for pre-procedure | | | identification of the patient's vascular anatomy. Venipuncture was | | | performed under direct ultrasound guidance. The arm was prepped | | | and draped in the procedural sterile fashion and the sterile field | | | was maintained at all times. The insertion site was prepped with | | | Christo cloth and Chloraprep. Anesthesia was obtained with 1 mL of | | | buffered 1% Lidocaine. Midline Catheter Insertion: The left | | | brachial vein was cannulated with dark red, non-pulsatile blood | | | return. A 18g 10cm PowerGlide catheter was placed on the first | | | attempt. Midline lot number [id number]; there was excellent blood | | | return. The catheter was flushed with 20 mL of Normal Saline, an | | | antimicrobial disc was placed at the insertion site and a catheter | | | securement device was utilized. Complications: none Placed | | | by: Alma Cat RN | | + + + VAT: PICC INSERTION W/US (12/07/2018 11:57 AM PDT) + + | Specimen | + + | | + + + + + | Narrative | Performed At | + + + | See procedure note. | [facility] | | | RADIOLOGY | + + + + +---------+ + + | Performing | Address | City/State/[facility] | Phone Number | | Organization | | | | + +---------+ + + | [facility] | | | | + +---------+ + + TRANSTHORACIC ECHOCARDIOGRAM, ADULT (12/07/2018 8:45 AM PDT) + + + + + + | Component | Value | Ref Range | Performed | Pathologist | | | | | At | Signature | + + + + + + | AOV VMN | 4.0 | | [facility] | | | (AORTIC | | | OF | | | VALVE) | | | CARDIOLOGY | | + + + + + + | BIPLANE, EF | 69 | | [facility] | | | | | | OF | | | | | | CARDIOLOGY | | + + + + + + | EJECTION | 55 to 60 | | [facility] | | | FRACTION | | | OF | | | | | | CARDIOLOGY | | + + + + + + | LA | 2.4 | | [facility] | | | DIMENSION | | | OF | | | | | | CARDIOLOGY | | + + + + + + | LVIDD | 3.7 | | [facility] | | | | | | OF | | | | | | CARDIOLOGY | | + + + + + + | MV A VMAX | 0.6 | | [facility] | | | | | | OF | | | | | | CARDIOLOGY | | + + + + + + | MV E? | 0.1 | | [facility] | | | | | | OF | | | | | | CARDIOLOGY | | + + + + + + | MV E VMAX | 0.9 | | [facility] | | | | | | OF | | | | | | CARDIOLOGY | | + + + + + + | MV E/E' | 11.0 | | [facility] | | | (MITRAL | | | OF | | | VALVE) | | | CARDIOLOGY | | + + + + + + | MITRAL | 11.0 | | [facility] | | | ANNULUS | | | OF | | | MEDIAL E/E" | | | CARDIOLOGY | | | (TISSUE | | | | | | DOPPLER) | | | | | + + + + + + | RVSP | 46 | | [facility] | | | | | | OF | | | | | | CARDIOLOGY | | + + + + + + | RV TAPSE | 2.5 | | [facility] | | | | | | OF | | | | | | CARDIOLOGY | | + + + + + + | RV TDI S? | 16.9 | | [facility] | | | | | | OF | | | | | | CARDIOLOGY | | + + + + + + | TR VMAX | 3.0 | | [facility] | | | (TRICUSPID | | | OF | | | VALVE) | | | CARDIOLOGY | | + + + + + + | EJECTION | 57.5 | % | [facility] | | | FRACTION | | | OF | | | RANGE MEAN | | | CARDIOLOGY | | | VALUE | | | | | + + + + + + + + | Specimen | + + | | + + + ----+ + | Narrative | Performed At | + ----+ + | [facility] | [facility] DEPT OF | | [facility] Adult Echocardiography Laboratory [address] | CARDIOLOGY | | [place], [place] [address] Ph: | | | Pt Name: SUSSY ALLRED | | | Study Date/Time 12/07/2018 / 8:45:36 AMMRN: [id number] | | | Most recent prior: 11/26/2018Acc #: [id number] | | | No. previous echos: 1DOB: 1950 68 years Heart | | | Rate: 88 bpmHeight: 64.0 in Blood | | | Pressure: 104/64 mm/HgWeight: 145.0 lb | | | Gender: FBSA: 1.71 m | | | Order ID: [id number] Study | | | [facility] Gayle Michael RCSSonographer 2:Referring | | | Provider: Dennis Tayloralities Performed: 2D, Color flow, Spectral | | | Doppler and Definity contrast.Study Quality: Good.Imaging Limitations: | | | Supine.Exam Indication: MurmurHistory: 68 y.o. 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 | | | Patient history has been obtained from the EHR [facility] | | | Echocardiographic Report | | | + | | | ---------+Final Impressions: | | | | | | | | | | | | | | | 1. The left ventricular size is normal. | | | 2. The LV function is normal. | | | 3. | | | Right ventricular size, thickness and function are normal. | | | 4. Moderate tricuspid regurgitation. | | | 5. The estimated right | | | ventricular systolic pressure is mildly to moderately elevated (RVSP | | | = 46.0 mmHg). | | | 6. Trivial inferior pericardial effusion is seen | | | without echocardiographic evidence of cardiac tamponade. | | | 7. | | | There are no prior exams available for comparison. | | | | | | | | | + | | | + Description of Findings: Cardiac Rhythm: Normal sinus | | | rhythm.Left Ventricle: The left ventricular size is normal. Visually | | | estimated left ventricular ejection fraction is 55 - 60%. The LV | | | diastolic filling pattern is normal. The ejection fraction is 69.0 % | | | as measured by Cantu's biplane method. The LV function is normal. | | | Due to poor endocardial definition, ultrasound contrast was used | | | (Definity).Left Ventricular Wall Motion: Left ventricular systolic | | | thickening is normal in all segments.Atria: Left atrial size is | | | normal. Normal right atrium.Right Ventricle: Right ventricular size, | | | thickness and function are normal. TAPSE measures 2.5cm. The RV TDI s' | | | velocity is 16.9cm/sec.Aortic Valve: The aortic valve is trileaflet | | | and normal in structure and function. No indication of aortic valve | | | regurgitation.Tricuspid Valve: The tricuspid valve is structurally | | | normal. Moderate tricuspid regurgitation. The tricuspid regurgitant | | | velocity is 3.00 m/s, and with an assumed right atrial pressure of 10 | | | mmHg, the estimated right ventricular systolic pressure is mildly to | | | moderately elevated at 46.0 mmHg.Pulmonic Valve: The pulmonic valve is | | | structurally normal. Mild pulmonary valve regurgitation.Aorta: The | | | ascending aorta is not well visualized.Venous: The inferior vena cava | | | was dilated, with respiratory size variation less than | | | 50%.Pericardium: A trivial inferiorly located pericardial effusion is | | | seen without echocardiographic evidence of tamponade.Additional | | | Findings: There are no prior exams.2D Measurements | | | Doppler Measurements 2D NL Values Aortic | | | MitralLVID(d) 3.70 (3.5-5.7cm) Max Deandre 1.41 | | | Peak E 0.88 cm | | | m/s m/sLVID(s) 2.32 | | | Mean grad 4.0 Peak A 0.62 cm | | | mmHg m/sIVS(d) | | | 0.88 (0.6-1.1cm) LVOT Deandre 0.94 E/A Ratio 1.40 | | | cm m/sLVPW(d) 0.80 | | | (0.6-1.1cm) LVOT VTI 0.186 TDI (E/e') 11.0 cm | | | mLA A/Ps 2D 2.40 (2.7-3.9cm) LVOT | | | Diam 2.00 MV mn gd cm | | | cmLA vol A/L 22.2 (16-34) LVOT SV 34.3 MR | | | EROindex ml/m | | | indexed ml/m | | | LA vol MOD 36.3 (40-73ml) Tricuspid PulmonicBP | | | ml TR Vmax 3.00 PV Vmax 0.7LA | | | vol MOD 21.3 (16-34) m/s | | | m/sindex ml/m | | | RA Press 10 RVOT VTILVEDV 49.78 | | | mmHgindex ml/m | | | RVSP 46 PV mn gdBiplane EF 69.0 % | | | mmHg | | | Aorta: Index: | | | Ao Sinus 2.70 (2.1-3.5cm) 15.8 | | | cm | | | mm/m | | | Asc Ao 2.90 | | | 17.0 (prox) | | | cm mm/m | | | Evaluation of chamber size and geometry is accomplished through the | | | incorporation of linear, volumetric, and indexed values Report | | | electronically signed by: [id number] Kathleen Sam MD (12/07/2018, | | | 4:42:18 PM) Final | | | | | | Aorta: Index: | | | Ao Sinus 2.70 (2.1-3.5cm) 15.8 | | | cm mm/m | | | Asc Ao 2.90 17.0 | | | (prox) cm mm/m | | |Evaluation of chamber size and geometry is accomplished through the incorporation of | | |linear, volumetric, and indexed values | | | | | |Report electronically signed by: [id number] Kathleen Sam MD (12/07/2018, 4:42:18 PM) | | | | | | | | | | | | Final | | + ----+ + + + | Procedure Note | + + | Interface, Cardiology Results - 12/07/2018 4:42 PM PDT [facility] | | [facility] Echocardiography Laboratory [address] [place] [address] | | [place], [place] [address] Pt Name: SUSSY REEVES | | CHALINO Study Date/Time 12/07/2018 / 8:45:36 AMMRN: [id number] Most | | recent prior: 11/26/2018Acc #: [id number] No. previous echos: 1DOB: | | 1950 68 years Heart Rate: 88 bpmHeight: 64.0 in Blood | | Pressure: 104/64 mm/HgWeight: 145.0 lb Gender: FBSA: | | 1.71 m | | Order ID: [id number] [facility] Elwin | | [facility] HospitalSonographer 2:Referring Provider: Dennis AllredModalities Performed: 2D, | | Color flow, Spectral Doppler and Definity contrast.Study Quality: Good.Imaging | | Limitations: Supine.Exam Indication: MurmurHistory: 68 y.o. female with hx of | | hypothyroidism, HTN, GERD who presented with bilateral pulmonary nodules, mediastinal | | and hilar adenopathy found to have NSCLC of L lung s/p RICHIE lobectomy c/b resection of L | | recurrent laryngeal nerve. Patient history has been obtained from the EHR Transthoracic | | Echocardiographic | | Report+ +Fi | | nal Impressions: | | | | 1. The left ventricular size is | | normal. 2. The LV function is normal. | | 3. Right ventricular size, thickness and function | | are normal. 4. Moderate tricuspid regurgitation. | | 5. The estimated right ventricular systolic pressure is mildly to | | moderately elevated (RVSP = 46.0 mmHg). | | 6. Trivial inferior pericardial effusion is seen without echocardiographic evidence | | of cardiac tamponade. 7. There are no | | prior exams available for comparison. | | | | + + | | Description of Findings: Cardiac Rhythm: Normal sinus rhythm.Left Ventricle: The left | | ventricular size is normal. Visually estimated left ventricular ejection fraction is 55 | | - 60%. The LV diastolic filling pattern is normal. The ejection fraction is 69.0 % as | | measured by Cantu's biplane method. The LV function is normal. Due to poor endocardial | | definition, ultrasound contrast was used (Definity).Left Ventricular Wall Motion: Left | | ventricular systolic thickening is normal in all segments.Atria: Left atrial size is | | normal. Normal right atrium.Right Ventricle: Right ventricular size, thickness and | | function are normal. TAPSE measures 2.5cm. The RV TDI s' velocity is 16.9cm/sec.Aortic | | Valve: The aortic valve is trileaflet and normal in structure and function. No | | indication of aortic valve regurgitation.Tricuspid Valve: The tricuspid valve is | | structurally normal. Moderate tricuspid regurgitation. The tricuspid regurgitant | | velocity is 3.00 m/s, and with an assumed right atrial pressure of 10 mmHg, the | | estimated right ventricular systolic pressure is mildly to moderately elevated at 46.0 | | mmHg.Pulmonic Valve: The pulmonic valve is structurally normal. Mild pulmonary valve | | regurgitation.Aorta: The ascending aorta is not well visualized.Venous: The inferior | | vena cava was dilated, with respiratory size variation less than 50%.Pericardium: A | | trivial inferiorly located pericardial effusion is seen without echocardiographic | | evidence of tamponade.Additional Findings: There are no prior exams.2D Measurements | | Doppler Measurements 2D NL Values Aortic | | MitralLVID(d) 3.70 (3.5-5.7cm) Max Deandre 1.41 Peak E 0.88 cm | | m/s m/sLVID(s) 2.32 Mean grad 4.0 | | Peak A 0.62 cm mmHg m/sIVS(d) | | 0.88 (0.6-1.1cm) LVOT Deandre 0.94 E/A Ratio 1.40 cm | | m/sLVPW(d) 0.80 (0.6-1.1cm) LVOT VTI 0.186 TDI (E/e') 11.0 cm | | mLA A/Ps 2D 2.40 (2.7-3.9cm) LVOT Diam 2.00 MV mn gd cm | | cmLA vol A/L 22.2 (16-34) LVOT SV 34.3 MR EROindex | | ml/m | | indexed ml/m | | LA vol MOD 36.3 (40-73ml) Tricuspid PulmonicBP ml TR | | Vmax 3.00 PV Vmax 0.7LA vol MOD 21.3 (16-34) m/s | | m/sindex ml/m | | RA Press 10 RVOT VTILVEDV 49.78 | | mmHgindex ml/m | | RVSP 46 PV mn gdBiplane EF 69.0 % mmHg | | Aorta: Index: | | Ao Sinus 2.70 (2.1-3.5cm) 15.8 cm | | mm/m | | Asc Ao 2.90 17.0 | | (prox) cm mm/m | | Evaluation of chamber size and geometry is accomplished through the incorporation of | | linear, volumetric, and indexed values Report electronically signed by: [id number] | | Kathleen Sam MD (12/07/2018, 4:42:18 PM) Final | |Pericardium: A trivial inferiorly located pericardial effusion is seen without | |echocardiographic evidence of tamponade. | |Additional Findings: There are no prior exams. | |2D Measurements Doppler Measurements | | | | 2D NL Values Aortic Mitral | |LVID(d) 3.70 (3.5-5.7cm) Max Deandre 1.41 Peak E 0.88 | | cm m/s m/s | |LVID(s) 2.32 Mean grad 4.0 Peak A 0.62 | | cm mmHg m/s | |IVS(d) 0.88 (0.6-1.1cm) LVOT Deandre 0.94 E/A Ratio 1.40 | | cm m/s | |LVPW(d) 0.80 (0.6-1.1cm) LVOT VTI 0.186 TDI (E/e') 11.0 | | cm m | |LA A/Ps 2D 2.40 (2.7-3.9cm) LVOT Diam 2.00 MV mn gd | | cm cm | |LA vol A/L 22.2 (16-34) LVOT SV 34.3 MR ERO | |index ml/m indexed ml/m | |LA vol MOD 36.3 (40-73ml) Tricuspid Pulmonic | |BP ml TR Vmax 3.00 PV Vmax 0.7 | |LA vol MOD 21.3 (16-34) m/s m/s | |index ml/m RA Press 10 RVOT VTI | |LVEDV 49.78 mmHg | |index ml/m RVSP 46 PV mn gd | |Biplane EF 69.0 % mmHg | | | | Aorta: Index: | | Ao Sinus 2.70 (2.1-3.5cm) 15.8 | | cm mm/m | | Asc Ao 2.90 17.0 | | (prox) cm mm/m | |Evaluation of chamber size and geometry is accomplished through the incorporation of | |linear, volumetric, and indexed values | | | |Report electronically signed by: [id number] Kathleen Sam MD (12/07/2018, 4:42:18 PM) | | | | | | | | Final | + + + + + + + | Performing | Address | City/State/Zipcode | Phone Number | | Organization | | | | + + + + + | [facility] | [address] | [place], [place] | | | CARDIOLOGY | [address] | [address] | | + + + + + X-RAY PORTABLE CHEST 1 VIEW (12/07/2018 5:56 AM PDT) + + | Specimen | + + | | + + + + + | Narrative | Performed At | + + + | EXAM: NE CHEST 1 VIEW HISTORY: SoB COMPARISON: Chest | [facility] | | radiograph from 12/06/2018. Outside PET/CT from 10/23/2018. FINDINGS: | RADIOLOGY VOICE | | The left chest tube and epidural catheter tubing are in unchanged | RECOGNITION 2 | | position. The cardiac mediastinal silhouette is unchanged. As | | | seen previously, there is low left lung volume, diffuse right lung | | | groundglass opacities, and minimal left lower lobe airspace opacities. | | | No large pleural effusion or definite pneumothorax is seen. No acute | | | osseous abnormality. There is decreased left chest wall subcutaneous | | | emphysema. IMPRESSION: Unchanged diffuse right lung | | | groundglass opacities and mild left lower lobe airspace opacities, | | | which may represent aspiration and/or developing infection. I have | | | personally reviewed the images and, if necessary, edited the report. | | | I agree with the report as now presented. Final signature: Charli | | | Frances Harris MD 12/07/2018 12:18 PM Preliminary: Charli Harris MD | | | Dictation initiated: Charli Harris MD 12/07/2018 12:13 PM | | + + + + + | Procedure Note | + + | 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, Radiant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 - 12/07/2018 12:19 PM PDT EXAM: NE CHEST 1 | | VIEW HISTORY: SoB COMPARISON: Chest radiograph from 12/06/2018. Outside PET/CT from | | 10/23/2018. FINDINGS: The left chest tube and epidural catheter tubing are in unchanged | | position. The cardiac mediastinal silhouette is unchanged. As seen previously, there is | | low left lung volume, diffuse right lung groundglass opacities, and minimal left lower | | lobe airspace opacities. No large pleural effusion or definite pneumothorax is seen. No | | acute osseous abnormality. There is decreased left chest wall subcutaneous emphysema. | | IMPRESSION: Unchanged diffuse right lung groundglass opacities and mild left lower lobe | | airspace opacities, which may represent aspiration and/or developing infection. I have | | personally reviewed the images and, if necessary, edited the report. I agree with the | | report as now presented. Final signature: Charli Harris MD 12/07/2018 12:18 PM | | Preliminary: Charli Harris MD Dictation initiated: Charli Harris MD 12/07/2018 12:13 PM | | | |IMPRESSION: | | | |Unchanged diffuse right lung groundglass opacities and mild left lower lobe airspace opacit ies, which may represent aspiration and/or developing infection. | | | |I have personally reviewed the images and, if necessary, edited the report. I agree with th e report as now presented. | | | |Final signature: Charli Harris MD 12/07/2018 12:18 PM | |Preliminary: Charli Harris MD | |Dictation initiated: Charli Harris MD 12/07/2018 12:13 PM | + + + +---------+ + + | Performing | Address | City/State/Zipcode | Phone Number | | Organization | | | | + +---------+ + + | [facility] | | | | | VOICE RECOGNITION 2 | | | | + +---------+ + + MAGNESIUM, PLASMA (12/07/2018 2:20 AM PDT) + +-------+ + + + | Component | Value | Ref Range | Performed | Pathologist | | | | | At | Signature | + +-------+ + + + | MAGNESIUM,P | 2.3 | 1.6 - 2.6 mg/dL | [facility] | | | LASMA | | | LABORATORY | | | | | | SERVICES, | | | | | | CORE | | + +-------+ + + + + + | Specimen | + + | Blood - Blood | | (substance) | + + + + + + + | Performing | Address | City/State/Zipcode | Phone Number | | Organization | | | | + + + + + | [facility] | [address] | [place] [address] | | | SERVICES, CORE | [address] | | | + + + + + CBC (HEMOGRAM) ONLY (12/07/2018 2:20 AM PDT) + + + + + + | Component | Value | Ref Range | Performed | Pathologist | | | | | At | Signature | + + + + + + | WHITE CELL | 13.40 (H) | 3.50 - 10.80 | [facility] | | | COUNT | | K/cu mm | LABORATORY | | | | | | SERVICES, | | | | | | CORE | | + + + + + + | RED CELL | 2.52 (L) | 4.00 - 5.20 | [facility] | | | COUNT | | M/cu mm | LABORATORY | | | | | | SERVICES, | | | | | | CORE | | + + + + + + | HEMOGLOBIN | 8.2 (L) | 12.0 - 16.0 | [facility] | | | | | g/dL | LABORATORY | | | | | | SERVICES, | | | | | | CORE | | + + + + + + | HEMATOCRIT | 26.9 (L) | 36.0 - 46.0 % | [facility] | | | | | | LABORATORY | | | | | | SERVICES, | | | | | | CORE | | + + + + + + | MCV | 106.7 (H) | 80.0 - 100.0 fL | [facility] | | | | | | LABORATORY | | | | | | SERVICES, | | | | | | CORE | | + + + + + + | MCHC | 30.5 (L) | 32.0 - 36.0 | [facility] | | | | | g/dL | LABORATORY | | | | | | SERVICES, | | | | | | CORE | | + + + + + + | RDW SD | 49.0 (H) | 35.1 - 46.3 fL | [facility] | | | | | | LABORATORY | | | | | | SERVICES, | | | | | | CORE | | + + + + + + | PLATELET | 270 | 150 - 400 K/cu | [facility] | | | COUNT | | mm | LABORATORY | | | | | | SERVICES, | | | | | | CORE | | + + + + + + | MPV | 9.2 (L) | 9.7 - 12.3 fL | [facility] | | | | | | LABORATORY | | | | | | SERVICES, | | | | | | CORE | | + + + + + + | NRBC% | 0.0 | 0.0 - 0.3 % | [facility] | | | | | | LABORATORY | | | | | | SERVICES, | | | | | | CORE | | + + + + + + | NRBC# | 0.00 | 0.00 - 0.02 | [facility] | | | | | K/cu mm | LABORATORY | | | | | | SERVICES, | | | | | | CORE | | + + + + + + + + | Specimen | + + | Blood - Blood | | (substance) | + + + + + + + | Performing | Address | City/State/Zipcode | Phone Number | | Organization | | | | + + + + + | [facility] | [address] | [place] [address] | | | SERVICES, CORE | [address] | | | + + + + + RENAL FUNCTION SET (NA,K,CL,CO2,BUN,CREAT,GLUC,CA,PHOS,ALB ) (12/07/2018 2:20 AM PDT) + +---------+ + + + | Component | Value | Ref Range | Performed | Pathologist | | | | | At | Signature | + +---------+ + + + | GLUCOSE, | 136 (H) | 70 - 99 mg/dL | [facility] | | | PLASMA | | | LABORATORY | | | (LAB) | | | SERVICES, | | | | | | CORE | | + +---------+ + + + | BUN, PLASMA | 16 | 6 - 20 mg/dL | [facility] | | | (LAB) | | | LABORATORY | | | | | | SERVICES, | | | | | | CORE | | + +---------+ + + + | CREATININE | 0.68 | 0.60 - 1.10 | [facility] | | | PLASMA | | mg/dL | LABORATORY | | | (LAB) | | | SERVICES, | | | | | | CORE | | + +---------+ + + + | EGFR | >60 | >60 mL/min | [facility] | | | - | | | LABORATORY | | | [facility] | | | SERVICES, | | | | | | CORE | | + +---------+ + + + | EGFR NON | >60 | >60 mL/min | [facility] | | | -[facility] | | | LABORATORY | | | [facility] | | | SERVICES, | | | | | | CORE | | + +---------+ + + + | SODIUM, | 139 | 136 - 145 | [facility] | | | PLASMA | | mmol/L | LABORATORY | | | (LAB) | | | SERVICES, | | | | | | CORE | | + +---------+ + + + | POTASSIUM, | 3.9 | 3.4 - 5.0 | [facility] | | | PLASMA | | mmol/L | LABORATORY | | | (LAB) | | | SERVICES, | | | | | | CORE | | + +---------+ + + + | CHLORIDE, | 109 (H) | 97 - 108 mmol/L | [facility] | | | PLASMA | | | LABORATORY | | | (LAB) | | | SERVICES, | | | | | | CORE | | + +---------+ + + + | TOTAL CO2, | 25 | 21 - 32 mmol/L | [facility] | | | PLASMA | | | LABORATORY | | | (LAB) | | | SERVICES, | | | | | | CORE | | + +---------+ + + + | CALCIUM, | 7.7 (L) | 8.6 - 10.2 | [facility] | | | PLASMA | | mg/dL | LABORATORY | | | (LAB) | | | SERVICES, | | | | | | CORE | | + +---------+ + + + | CALCIUM(ALB | 9.2 | 8.6 - 10.2 | [facility] | | | CORRECTED) | | mg/dL | LABORATORY | | | | | | SERVICES, | | | | | | CORE | | + +---------+ + + + | ALBUMIN, | 2.1 (L) | 3.5 - 4.7 g/dL | [facility] | | | PLASMA | | | LABORATORY | | | (LAB) | | | SERVICES, | | | | | | CORE | | + +---------+ + + + | PHOSPHORUS, | 1.4 (L) | 2.4 - 4.7 mg/dL | [facility] | | | PLASMA | | | LABORATORY | | | (LAB) | | | SERVICES, | | | | | | CORE | | + +---------+ + + + | POTASSIUM | No Hemo | | [facility] | | | CMNT | | | LABORATORY | | | | | | SERVICES, | | | | | | CORE | | + +---------+ + + + | ANION GAP | 5 | 4 - 11 mmol/L | [facility] | | | | | | LABORATORY | | | | | | SERVICES, | | | | | | CORE | | + +---------+ + + + | ANION | 9 | 4 - 11 mmol/L | [facility] | | | GAP(ALB | | | LABORATORY | | | CORRECTED) | | | SERVICES, | | | | | | CORE | | + +---------+ + + + + + | Specimen | + + | Blood - Blood | | (substance) | + + + + + | Narrative | Performed At | + + + | GFR is estimated using the MDRD equation recommended by the | [facility] | | National Kidney Disease Education Program. Estimated GFR | LABORATORY | | Interpretive Information: <60 mL/min/1.73 sq m | SERVICES, CORE | | Chronic Kidney Disease <15 mL/min/1.73 sq m | | | Kidney Failure Estimated GFR greater than 60 mL/min/1.73 sq m is of | | | limited clinical value. The MDRD equation is not valid in the | | | following situations: - Patients under 18 years of age - Severe | | | malnutrition or obesity - Vegetarian diet - Rapidly changing kidney | | | function - Amputees, paraplegics, or other muscle-wasting diseses | | + + + + + + + + | Performing | Address | City/State/Zipcode | Phone Number | | Organization | | | | + + + + + | [facility] | [address] | [place] [address] | | | SERVICES, CORE | [address] | | | + + + + + PROCEDURE NOTE (12/06/2018 7:33 PM PDT)CBC (HEMOGRAM) ONLY (12/06/2018 12:27 PM PDT) + + + + + + | Component | Value | Ref Range | Performed | Pathologist | | | | | At | Signature | + + + + + + | WHITE CELL | 12.39 (H) | 3.50 - 10.80 | [facility] | | | COUNT | | K/cu mm | LABORATORY | | | | | | SERVICES, | | | | | | CORE | | + + + + + + | RED CELL | 2.45 (L) | 4.00 - 5.20 | [facility] | | | COUNT | | M/cu mm | LABORATORY | | | | | | SERVICES, | | | | | | CORE | | + + + + + + | HEMOGLOBIN | 8.1 (L) | 12.0 - 16.0 | [facility] | | | | | g/dL | LABORATORY | | | | | | SERVICES, | | | | | | CORE | | + + + + + + | HEMATOCRIT | 25.4 (L) | 36.0 - 46.0 % | [facility] | | | | | | LABORATORY | | | | | | SERVICES, | | | | | | CORE | | + + + + + + | MCV | 103.7 (H) | 80.0 - 100.0 fL | [facility] | | | | | | LABORATORY | | | | | | SERVICES, | | | | | | CORE | | + + + + + + | MCHC | 31.9 (L) | 32.0 - 36.0 | [facility] | | | | | g/dL | LABORATORY | | | | | | SERVICES, | | | | | | CORE | | + + + + + + | RDW SD | 46.6 (H) | 35.1 - 46.3 fL | [facility] | | | | | | LABORATORY | | | | | | SERVICES, | | | | | | CORE | | + + + + + + | PLATELET | 237 | 150 - 400 K/cu | [facility] | | | COUNT | | mm | LABORATORY | | | | | | SERVICES, | | | | | | CORE | | + + + + + + | MPV | 9.3 (L) | 9.7 - 12.3 fL | [facility] | | | | | | LABORATORY | | | | | | SERVICES, | | | | | | CORE | | + + + + + + | NRBC% | 0.0 | 0.0 - 0.3 % | [facility] | | | | | | LABORATORY | | | | | | SERVICES, | | | | | | CORE | | + + + + + + | NRBC# | 0.00 | 0.00 - 0.02 | [facility] | | | | | K/cu mm | LABORATORY | | | | | | SERVICES, | | | | | | CORE | | + + + + + + + + | Specimen | + + | Blood - Blood | | (substance) | + + + + + + + | Performing | Address | City/State/Zipcode | Phone Number | | Organization | | | | + + + + + | [facility] | [address] | [place] [address] | | | SERVICES, CORE | [address] | | | + + + + + MAGNESIUM, PLASMA (12/06/2018 6:29 AM PDT) + +-------+ + + + | Component | Value | Ref Range | Performed | Pathologist | | | | | At | Signature | + +-------+ + + + | MAGNESIUM,P | 2.1 | 1.6 - 2.6 mg/dL | [facility] | | | LASMA | | | LABORATORY | | | | | | SERVICES, | | | | | | CORE | | + +-------+ + + + + + | Specimen | + + | Blood - Blood | | (substance) | + + + + + + + | Performing | Address | City/State/Zipcode | Phone Number | | Organization | | | | + + + + + | [facility] | [address] | [place] [address] | | | SERVICES, [place] | [address] | | | + + + + + BASIC METABOLIC SET (NA, K, CL, TCO2, BUN, CR, GLU, CA) (12/06/2018 6:29 AM PDT) + +---------+ + + + | Component | Value | Ref Range | Performed | Pathologist | | | | | At | Signature | + +---------+ + + + | GLUCOSE, | 95 | 70 - 99 mg/dL | [facility] | | | PLASMA | | | LABORATORY | | | (LAB) | | | SERVICES, | | | | | | CORE | | + +---------+ + + + | BUN, PLASMA | 12 | 6 - 20 mg/dL | [facility] | | | (LAB) | | | LABORATORY | | | | | | SERVICES, | | | | | | CORE | | + +---------+ + + + | CREATININE | 0.66 | 0.60 - 1.10 | [facility] | | | PLASMA | | mg/dL | LABORATORY | | | (LAB) | | | SERVICES, | | | | | | CORE | | + +---------+ + + + | EGFR | >60 | >60 mL/min | [facility] | | | - | | | LABORATORY | | | [facility] | | | SERVICES, | | | | | | CORE | | + +---------+ + + + | EGFR NON | >60 | >60 mL/min | [facility] | | | -[facility] | | | LABORATORY | | | [facility] | | | SERVICES, | | | | | | CORE | | + +---------+ + + + | SODIUM, | 135 (L) | 136 - 145 | [facility] | | | PLASMA | | mmol/L | LABORATORY | | | (LAB) | | | SERVICES, | | | | | | CORE | | + +---------+ + + + | POTASSIUM, | 3.6 | 3.4 - 5.0 | [facility] | | | PLASMA | | mmol/L | LABORATORY | | | (LAB) | | | SERVICES, | | | | | | CORE | | + +---------+ + + + | CHLORIDE, | 106 | 97 - 108 mmol/L | [facility] | | | PLASMA | | | LABORATORY | | | (LAB) | | | SERVICES, | | | | | | CORE | | + +---------+ + + + | TOTAL CO2, | 22 | 21 - 32 mmol/L | [facility] | | | PLASMA | | | LABORATORY | | | (LAB) | | | SERVICES, | | | | | | CORE | | + +---------+ + + + | CALCIUM, | 8.0 (L) | 8.6 - 10.2 | [facility] | | | PLASMA | | mg/dL | LABORATORY | | | (LAB) | | | SERVICES, | | | | | | CORE | | + +---------+ + + + | ANION GAP | 7 | 4 - 11 mmol/L | [facility] | | | | | | LABORATORY | | | | | | SERVICES, | | | | | | CORE | | + +---------+ + + + | POTASSIUM | No Hemo | | [facility] | | | CMNT | | | LABORATORY | | | | | | SERVICES, | | | | | | CORE | | + +---------+ + + + + + | Specimen | + + | Blood - Blood | | (substance) | + + + + + | Narrative | Performed At | + + + | GFR is estimated using the MDRD equation recommended by the | [facility] | | National Kidney Disease Education Program. Estimated GFR | LABORATORY | | Interpretive Information: <60 mL/min/1.73 sq m | SERVICES, CORE | | Chronic Kidney Disease <15 mL/min/1.73 sq m | | | Kidney Failure Estimated GFR greater than 60 mL/min/1.73 sq m is of | | | limited clinical value. The MDRD equation is not valid in the | | | following situations: - Patients under 18 years of age - Severe | | | malnutrition or obesity - Vegetarian diet - Rapidly changing kidney | | | function - Amputees, paraplegics, or other muscle-wasting diseses | | + + + + + + + + | Performing | Address | City/State/Zipcode | Phone Number | | Organization | | | | + + + + + | [facility] | [address] | [place] [address] | | | SERVICES, CORE | [address] | | | + + + + + X-RAY PORTABLE CHEST 1 VIEW (12/06/2018 6:10 AM PDT) + + | Specimen | + + | | + + + + + | Narrative | Performed At | + + + | EXAM: NE CHEST 1 VIEW HISTORY: SoB COMPARISON: Yesterday | [facility] | | FINDINGS: Left-sided chest tube is in unchanged position. The | RADIOLOGY VOICE | | cardiomediastinal silhouette is stable. There are new widespread right | RECOGNITION 2 | | lung groundglass opacities. The left lung is clear. Changes post left | | | upper lobectomy are redemonstrated. There is no pleural effusion or | | | pneumothorax. IMPRESSION: New right lung groundglass opacities | | | most consistent with large volume aspiration. I have personally | | | reviewed the images and, if necessary, edited the report. I agree with | | | the report as now presented. Final signature: Jennifer Haider MD | | | 12/06/2018 8:37 AM Preliminary: Jennifer Haider MD Dictation | | | initiated: Jennifer Haider MD 12/06/2018 8:36 AM | | + + + + + | Procedure Note | + + | 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, Radiant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 - 12/06/2018 8:38 AM PDT EXAM: NE CHEST 1 | | VIEW HISTORY: SoB COMPARISON: Yesterday FINDINGS: Left-sided chest tube is in | | unchanged position. The cardiomediastinal silhouette is stable. There are new widespread | | right lung groundglass opacities. The left lung is clear. Changes post left upper | | lobectomy are redemonstrated. There is no pleural effusion or pneumothorax. IMPRESSION: | | New right lung groundglass opacities most consistent with large volume aspiration. I | | have personally reviewed the images and, if necessary, edited the report. I agree with | | the report as now presented. Final signature: Jennifer Haider MD 12/06/2018 8:37 AM | | Preliminary: Jennifer Haider MD Dictation initiated: Jennifer Haider MD 12/06/2018 | | 8:36 AM | | | |IMPRESSION: | | | |New right lung groundglass opacities most consistent with large volume aspiration. | | | |I have personally reviewed the images and, if necessary, edited the report. I agree with th e report as now presented. | | | |Final signature: Jennifer Haider MD 12/06/2018 8:37 AM | |Preliminary: Jennifer Haider MD | |Dictation initiated: Jennifer Haider MD 12/06/2018 8:36 AM | + + + +---------+ + + | Performing | Address | City/State/Zipcode | Phone Number | | Organization | | | | + +---------+ + + | [facility] | | | | | VOICE RECOGNITION 2 | | | | + +---------+ + + CBC (HEMOGRAM) ONLY (12/06/2018 5:58 AM PDT) + + + + + + | Component | Value | Ref Range | Performed | Pathologist | | | | | At | Signature | + + + + + + | WHITE CELL | 14.34 (H) | 3.50 - 10.80 | [facility] | | | COUNT | | K/cu mm | LABORATORY | | | | | | SERVICES, | | | | | | CORE | | + + + + + + | RED CELL | 2.65 (L) | 4.00 - 5.20 | [facility] | | | COUNT | | M/cu mm | LABORATORY | | | | | | SERVICES, | | | | | | CORE | | + + + + + + | HEMOGLOBIN | 8.7 (L) | 12.0 - 16.0 | [facility] | | | | | g/dL | LABORATORY | | | | | | SERVICES, | | | | | | CORE | | + + + + + + | HEMATOCRIT | 27.1 (L) | 36.0 - 46.0 % | [facility] | | | | | | LABORATORY | | | | | | SERVICES, | | | | | | CORE | | + + + + + + | MCV | 102.3 (H) | 80.0 - 100.0 fL | [facility] | | | | | | LABORATORY | | | | | | SERVICES, | | | | | | CORE | | + + + + + + | MCHC | 32.1 | 32.0 - 36.0 | [facility] | | | | | g/dL | LABORATORY | | | | | | SERVICES, | | | | | | CORE | | + + + + + + | RDW SD | 46.1 | 35.1 - 46.3 fL | [facility] | | | | | | LABORATORY | | | | | | SERVICES, | | | | | | CORE | | + + + + + + | PLATELET | 233 | 150 - 400 K/cu | [facility] | | | COUNT | | mm | LABORATORY | | | | | | SERVICES, | | | | | | CORE | | + + + + + + | MPV | 8.9 (L) | 9.7 - 12.3 fL | [facility] | | | | | | LABORATORY | | | | | | SERVICES, | | | | | | CORE | | + + + + + + | NRBC% | 0.0 | 0.0 - 0.3 % | [facility] | | | | | | LABORATORY | | | | | | SERVICES, | | | | | | CORE | | + + + + + + | NRBC# | 0.00 | 0.00 - 0.02 | [facility] | | | | | K/cu mm | LABORATORY | | | | | | SERVICES, | | | | | | CORE | | + + + + + + + + | Specimen | + + | Blood - Blood | | (substance) | + + + + + + + | Performing | Address | City/State/Zipcode | Phone Number | | Organization | | | | + + + + + | [facility] | [address] | [place] [address] | | | [facility] | [address] | | | + + + + + POINT OF CARE ULTRASOUND (12/05/2018 8:51 AM PDT) + + + | Narrative | Performed At | + + + | Dennis Myrick MD 12/05/2018 8:54 AM POCUS Performed by: | | | DENNIS MYRICK Authorized by: DENNIS MYRICK Diagnosis | | | indicating procedure: Hypotension Location performed: 12K | | | Operators: Attending Attending physically present: Yes | | | Attending name: Elen Scan type: Focused Cardiac | | | Indication: Hypotension The following standard transthoracic | | | echocardiagram windows were obtained using a phased array probe: | | | Parasternal long axis, Sub-xiphoid, Parasternal short axis and | | | Apical 4 chamber Volume estimate: Hypovolemia Kissing papillary | | | muscles: + Estimate of LV function:Normal Evidence of | | | pericardial effusion: + not flow significant Cardiac | | | Impression Thickened LV myocardial pitt, hyperdynamic RV, | | | obliteration of LV cavity with systole. Images archived to | | | institution catering server | | + + + X-RAY PORTABLE CHEST 1 VIEW (12/05/2018 5:59 AM PDT) + + | Specimen | + + | | + + + + + | Narrative | Performed At | + + + | EXAM: NE CHEST 1 VIEW HISTORY: post left thoracotomy, left upper | [facility] | | lobectomy COMPARISON: 12/04/2018 FINDINGS: The chest tube | RADIOLOGY VOICE | | is unchanged in position. Elevation of the left hemidiaphragm as | RECOGNITION 2 | | before. The cardiomediastinal contour is normal. Mild bibasilar | | | atelectasis and scattered subsegmental atelectasis. No focal | | | consolidation. Possible small left lateral pneumothorax. There is no | | | definite pleural effusion or pulmonary edema. The bones are intact. | | | IMPRESSION: Stable postsurgical changes of left upper lobectomy. | | | Possible small left lateral pneumothorax with chest tube in stable | | | position. Mildly increased bibasilar atelectasis and scattered | | | subsegmental atelectasis. I have personally reviewed the images | | | and, if necessary, edited the report. I agree with the report as now | | | presented. Final signature: Frieda Brumfield MD 12/05/2018 9:51 AM | | | Preliminary: Charli Palacios MD Dictation initiated: Charli Palacios MD 12/05/2018 8:01 AM | | + + + + + | Procedure Note | + + | 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, Radiant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 - 12/05/2018 9:53 AM PDT EXAM: NE CHEST 1 | | VIEW HISTORY: post left thoracotomy, left upper lobectomy COMPARISON: 12/04/2018 | | FINDINGS: The chest tube is unchanged in position. Elevation of the left hemidiaphragm | | as before. The cardiomediastinal contour is normal. Mild bibasilar atelectasis and | | scattered subsegmental atelectasis. No focal consolidation. Possible small left lateral | | pneumothorax. There is no definite pleural effusion or pulmonary edema. The bones are | | intact. IMPRESSION: Stable postsurgical changes of left upper lobectomy. Possible small | | left lateral pneumothorax with chest tube in stable position. Mildly increased bibasilar | | atelectasis and scattered subsegmental atelectasis. I have personally reviewed the | | images and, if necessary, edited the report. I agree with the report as now presented. | | Final signature: Frieda Brumfield MD 12/05/2018 9:51 AM Preliminary: Charli Palacios MD | | Dictation initiated: Charli Palacios MD 12/05/2018 8:01 AM | | | |IMPRESSION: | | | |Stable postsurgical changes of left upper lobectomy. Possible small left lateral pneumothor ax with chest tube in stable position. | | | |Mildly increased bibasilar atelectasis and scattered subsegmental atelectasis. | | | |I have personally reviewed the images and, if necessary, edited the report. I agree with th e report as now presented. | | | |Final signature: Frieda Brumfield MD 12/05/2018 9:51 AM | |Preliminary: Charli Palacios MD | |Dictation initiated: Charli Palacios MD 12/05/2018 8:01 AM | + + + +---------+ + + | Performing | Address | City/State/Zipcode | Phone Number | | Organization | | | | + +---------+ + + | [facility] | | | | | VOICE RECOGNITION 2 | | | | + +---------+ + + ICU FOCUSED TRANSTHORACIC ECHOCARDIOGRAM LIMITED (FAST TTE) (12/05/2018 3:40 AM PDT) + + | Specimen | + + | | + + + + + | Narrative | Performed At | + + + | Bedside ultrasound performed in the ICU. See inpatient admission | | | for details. | | + + + ART LINE (12/05/2018 2:56 AM PDT) + + + | Narrative | Performed At | + + + | Dennis Allred PA-C 12/05/2018 2:58 AM ARTERIAL LINE | | | Performed by: DENNIS ALLRED Authorized by: DENNIS ALLRED | | | Written consent obtained?: Yes Consent given by: Patient | | | Patient identity confirmed per policy: Yes Procedural pause: | | | Immediately prior to the procedure a pause per universal protocol | | | was called . Indications: Beat to beat blood pressure monitoring | | | Diagnosis indicating procedure: Hypotension Location performed: | | | 12K Operators: Advanced Practice Provider Attending physically | | | present: No NEETU name: Dennis Allred Skin Preparation: | | | Chloraprep Protective barrier: Cap, Mask, Hand scrub, Gloves and | | | Partially draped Sterile Ultrasound Used: Sterile Ultrasound Used | | | Anesthesia: Local infiltration Local anesthetic: Lidocaine 1% | | | Insertion side: Right Insertion site: Radial Catheter size: 3 | | | bermudian x 5 cm Number of attempts: 3 Procedure comments: Left | | | radial unable to get flash on 2 attempt with US guidance R radial 1 | | | attempt. Line secured: Suture Complications: None | | + + + CBC (HEMOGRAM) ONLY (12/05/2018 1:45 AM PDT) + + + + + + | Component | Value | Ref Range | Performed | Pathologist | | | | | At | Signature | + + + + + + | WHITE CELL | 9.08 | 3.50 - 10.80 | [facility] | | | COUNT | | K/cu mm | LABORATORY | | | | | | SERVICES, | | | | | | CORE | | + + + + + + | RED CELL | 3.04 (L) | 4.00 - 5.20 | [facility] | | | COUNT | | M/cu mm | LABORATORY | | | | | | SERVICES, | | | | | | CORE | | + + + + + + | HEMOGLOBIN | 10.0 (L) | 12.0 - 16.0 | [facility] | | | | | g/dL | LABORATORY | | | | | | SERVICES, | | | | | | CORE | | + + + + + + | HEMATOCRIT | 31.3 (L) | 36.0 - 46.0 % | [facility] | | | | | | LABORATORY | | | | | | SERVICES, | | | | | | CORE | | + + + + + + | MCV | 103.0 (H) | 80.0 - 100.0 fL | [facility] | | | | | | LABORATORY | | | | | | SERVICES, | | | | | | CORE | | + + + + + + | MCHC | 31.9 (L) | 32.0 - 36.0 | [facility] | | | | | g/dL | LABORATORY | | | | | | SERVICES, | | | | | | CORE | | + + + + + + | RDW SD | 45.9 | 35.1 - 46.3 fL | [facility] | | | | | | LABORATORY | | | | | | SERVICES, | | | | | | CORE | | + + + + + + | PLATELET | 293 | 150 - 400 K/cu | [facility] | | | COUNT | | mm | LABORATORY | | | | | | SERVICES, | | | | | | CORE | | + + + + + + | MPV | 8.6 (L) | 9.7 - 12.3 fL | [facility] | | | | | | LABORATORY | | | | | | SERVICES, | | | | | | CORE | | + + + + + + | NRBC% | 0.0 | 0.0 - 0.3 % | [facility] | | | | | | LABORATORY | | | | | | SERVICES, | | | | | | CORE | | + + + + + + | NRBC# | 0.00 | 0.00 - 0.02 | [facility] | | | | | K/cu mm | LABORATORY | | | | | | SERVICES, | | | | | | CORE | | + + + + + + + + | Specimen | + + | Blood - Blood | | (substance) | + + + + + + + | Performing | Address | City/State/Zipcode | Phone Number | | Organization | | | | + + + + + | [facility] | [address] | [place] [address] | | | SERVICES, CORE | [address] | | | + + + + + MAGNESIUM, PLASMA (12/05/2018 1:45 AM PDT) + +-------+ + + + | Component | Value | Ref Range | Performed | Pathologist | | | | | At | Signature | + +-------+ + + + | MAGNESIUM,P | 1.8 | 1.6 - 2.6 mg/dL | [facility] | | | [facility] | | | LABORATORY | | | | | | SADE, | | | | | | CORE | | + +-------+ + + + + + | Specimen | + + | Blood - Blood | | (substance) | + + + + + + + | Performing | Address | City/State/Zipcode | Phone Number | | Organization | | | | + + + + + | [facility] | [address] | [place] [address] | | | SERVICES, CORE | [address] | | | + + + + + RENAL FUNCTION SET (NA,K,CL,CO2,BUN,CREAT,GLUC,CA,PHOS,ALB ) (12/05/2018 1:45 AM PDT) + +---------+ + + + | Component | Value | Ref Range | Performed | Pathologist | | | | | At | Signature | + +---------+ + + + | GLUCOSE, | 119 (H) | 70 - 99 mg/dL | [facility] | | | PLASMA | | | LABORATORY | | | (LAB) | | | SERVICES, | | | | | | CORE | | + +---------+ + + + | BUN, PLASMA | 15 | 6 - 20 mg/dL | [facility] | | | (LAB) | | | LABORATORY | | | | | | SERVICES, | | | | | | CORE | | + +---------+ + + + | CREATININE | 0.94 | 0.60 - 1.10 | [facility] | | | PLASMA | | mg/dL | LABORATORY | | | (LAB) | | | SERVICES, | | | | | | CORE | | + +---------+ + + + | EGFR | >60 | >60 mL/min | [facility] | | | - | | | LABORATORY | | | [facility] | | | SERVICES, | | | | | | CORE | | + +---------+ + + + | EGFR NON | 59 (L) | >60 mL/min | [facility] | | | -[facility] | | | LABORATORY | | | [facility] | | | SERVICES, | | | | | | CORE | | + +---------+ + + + | SODIUM, | 138 | 136 - 145 | [facility] | | | PLASMA | | mmol/L | LABORATORY | | | (LAB) | | | SERVICES, | | | | | | CORE | | + +---------+ + + + | POTASSIUM, | 4.5 | 3.4 - 5.0 | [facility] | | | PLASMA | | mmol/L | LABORATORY | | | (LAB) | | | SERVICES, | | | | | | CORE | | + +---------+ + + + | CHLORIDE, | 104 | 97 - 108 mmol/L | [facility] | | | PLASMA | | | LABORATORY | | | (LAB) | | | SERVICES, | | | | | | CORE | | + +---------+ + + + | TOTAL CO2, | 26 | 21 - 32 mmol/L | [facility] | | | PLASMA | | | LABORATORY | | | (LAB) | | | SERVICES, | | | | | | CORE | | + +---------+ + + + | CALCIUM, | 7.9 (L) | 8.6 - 10.2 | [facility] | | | PLASMA | | mg/dL | LABORATORY | | | (LAB) | | | SERVICES, | | | | | | CORE | | + +---------+ + + + | CALCIUM(ALB | 8.9 | 8.6 - 10.2 | [facility] | | | CORRECTED) | | mg/dL | LABORATORY | | | | | | SERVICES, | | | | | | CORE | | + +---------+ + + + | ALBUMIN, | 2.8 (L) | 3.5 - 4.7 g/dL | [facility] | | | PLASMA | | | LABORATORY | | | (LAB) | | | SERVICES, | | | | | | CORE | | + +---------+ + + + | PHOSPHORUS, | 3.4 | 2.4 - 4.7 mg/dL | [facility] | | | PLASMA | | | LABORATORY | | | (LAB) | | | SERVICES, | | | | | | CORE | | + +---------+ + + + | POTASSIUM | No Hemo | | [facility] | | | CMNT | | | LABORATORY | | | | | | SERVICES, | | | | | | CORE | | + +---------+ + + + | ANION GAP | 8 | 4 - 11 mmol/L | [facility] | | | | | | LABORATORY | | | | | | SERVICES, | | | | | | CORE | | + +---------+ + + + | ANION | 11 | 4 - 11 mmol/L | [facility] | | | GAP(ALB | | | LABORATORY | | | CORRECTED) | | | SERVICES, | | | | | | CORE | | + +---------+ + + + + + | Specimen | + + | Blood - Blood | | (substance) | + + + + + | Narrative | Performed At | + + + | GFR is estimated using the MDRD equation recommended by the | [facility] | | National Kidney Disease Education Program. Estimated GFR | LABORATORY | | Interpretive Information: <60 mL/min/1.73 sq m | SERVICES, CORE | | Chronic Kidney Disease <15 mL/min/1.73 sq m | | | Kidney Failure Estimated GFR greater than 60 mL/min/1.73 sq m is of | | | limited clinical value. The MDRD equation is not valid in the | | | following situations: - Patients under 18 years of age - Severe | | | malnutrition or obesity - Vegetarian diet - Rapidly changing kidney | | | function - Amputees, paraplegics, or other muscle-wasting diseses | | + + + + + + + + | Performing | Address | City/State/Zipcode | Phone Number | | Organization | | | | + + + + + | [facility] | [address] | [place] [address] | | | [facility] | [address] | | | + + + + + X-RAY PORTABLE CHEST 1 VIEW (12/04/2018 6:32 PM PDT) + + | Specimen | + + | | + + + + + | Narrative | Performed At | + + + | EXAM: NE CHEST 1 VIEW HISTORY: Status post left VATS, left | [facility] | | thoracotomy, left upper lobectomy, for lung mass COMPARISON: | RADIOLOGY VOICE | | 11/26/2018 FINDINGS: Left chest tube projects over the left | RECOGNITION 2 | | thorax with the tip in the left apex. Postsurgical changes of left | | | upper lobectomy are noted. The cardiomediastinal contour is normal. | | | Elevation of the left hemidiaphragm. There is no definite pleural | | | effusion. Possible tiny left apical pneumothorax. There is no | | | pulmonary edema. The bones are intact. IMPRESSION: | | | Postsurgical changes of left upper lobectomy, with chest tube tip in | | | the left apex and possible tiny left apical pneumothorax. I have | | | personally reviewed the images and, if necessary, edited the report. I | | | agree with the report as now presented. Final signature: Frieda | | | MD Brissa 12/05/2018 9:53 AM Preliminary: Charli Palacios MD | | | Dictation initiated: Charli Palacios MD 12/05/2018 7:57 AM | | + + + + + | Procedure Note | + + | 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, Radiant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 - 12/05/2018 9:54 AM PDT EXAM: NE CHEST 1 | | VIEW HISTORY: Status post left VATS, left thoracotomy, left upper lobectomy, for lung | | mass COMPARISON: 11/26/2018 FINDINGS: Left chest tube projects over the left thorax with | | the tip in the left apex. Postsurgical changes of left upper lobectomy are noted. The | | cardiomediastinal contour is normal. Elevation of the left hemidiaphragm. There is no | | definite pleural effusion. Possible tiny left apical pneumothorax. There is no pulmonary | | edema. The bones are intact. IMPRESSION: Postsurgical changes of left upper lobectomy, | | with chest tube tip in the left apex and possible tiny left apical pneumothorax. I have | | personally reviewed the images and, if necessary, edited the report. I agree with the | | report as now presented. Final signature: Frieda Brumfield MD 12/05/2018 9:53 AM | | Preliminary: Charli Palacios MD Dictation initiated: Charli Palacios MD 12/05/2018 7:57 AM | |pneumothorax. There is no pulmonary edema. The bones are intact. | | | |IMPRESSION: | | | |Postsurgical changes of left upper lobectomy, with chest tube tip in the left apex and poss ible tiny left apical pneumothorax. | | | |I have personally reviewed the images and, if necessary, edited the report. I agree with th e report as now presented. | | | |Final signature: Frieda Brumfield MD 12/05/2018 9:53 AM | |Preliminary: Charli Palacios MD | |Dictation initiated: Charli Palacios MD 12/05/2018 7:57 AM | + + + +---------+ + + | Performing | Address | City/State/Zipcode | Phone Number | | Organization | | | | + +---------+ + + | [facility] | | | | | VOICE RECOGNITION 2 | | | | + +---------+ + + APTT (ACT. PART. THROMBO TIME) (12/04/2018 6:29 PM PDT) + + + + + + | Component | Value | Ref Range | Performed | Pathologist | | | | | At | Signature | + + + + + + | APTT | 25.2 (L) | 26.0 - 36.0 | [facility] | | | | | seconds | LABORATORY | | | | | | SERVICES, | | | | | | CORE | | + + + + + + + + | Specimen | + + | Blood - Blood | | (substance) | + + + + + | Narrative | Performed At | + + + | APTT values for monitoring heparin therapy may be affected by | [facility] | | specimens processed >1 hour after collection. APTT Therapeutic | LABORATORY | | Range: (75 - 120) sec Heparin | SERVICES, CORE | | levels of 0.35 - 0.7 U/mL | | + + + + + + + + | Performing | Address | City/State/Zipcode | Phone Number | | Organization | | | | + + + + + | [facility] | [address] | [place] [address] | | | SERVICES, CORE | [address] | | | + + + + + CBC (HEMOGRAM) ONLY (12/04/2018 5:56 PM PDT) + + + + + + | Component | Value | Ref Range | Performed | Pathologist | | | | | At | Signature | + + + + + + | WHITE CELL | 13.55 (H) | 3.50 - 10.80 | [facility] | | | COUNT | | K/cu mm | LABORATORY | | | | | | SERVICES, | | | | | | CORE | | + + + + + + | RED CELL | 3.22 (L) | 4.00 - 5.20 | [facility] | | | COUNT | | M/cu mm | LABORATORY | | | | | | SERVICES, | | | | | | CORE | | + + + + + + | HEMOGLOBIN | 10.6 (L) | 12.0 - 16.0 | [facility] | | | | | g/dL | LABORATORY | | | | | | SERVICES, | | | | | | CORE | | + + + + + + | HEMATOCRIT | 32.6 (L) | 36.0 - 46.0 % | [facility] | | | | | | LABORATORY | | | | | | SERVICES, | | | | | | CORE | | + + + + + + | MCV | 101.2 (H) | 80.0 - 100.0 fL | [facility] | | | | | | LABORATORY | | | | | | SERVICES, | | | | | | CORE | | + + + + + + | MCHC | 32.5 | 32.0 - 36.0 | [facility] | | | | | g/dL | LABORATORY | | | | | | SERVICES, | | | | | | CORE | | + + + + + + | RDW SD | 45.1 | 35.1 - 46.3 fL | [facility] | | | | | | LABORATORY | | | | | | SERVICES, | | | | | | CORE | | + + + + + + | PLATELET | 343 | 150 - 400 K/cu | [facility] | | | COUNT | | mm | LABORATORY | | | | | | SERVICES, | | | | | | CORE | | + + + + + + | MPV | 8.9 (L) | 9.7 - 12.3 fL | [facility] | | | | | | LABORATORY | | | | | | SERVICES, | | | | | | CORE | | + + + + + + | NRBC% | 0.0 | 0.0 - 0.3 % | [facility] | | | | | | LABORATORY | | | | | | SERVICES, | | | | | | CORE | | + + + + + + | NRBC# | 0.00 | 0.00 - 0.02 | [facility] | | | | | K/cu mm | LABORATORY | | | | | | SERVICES, | | | | | | CORE | | + + + + + + + + | Specimen | + + | Blood - Blood | | (substance) | + + + + + + + | Performing | Address | City/State/Zipcode | Phone Number | | Organization | | | | + + + + + | [facility] | [address] | [place] [address] | | | SERVICES, CORE | [address] | | | + + + + + BASIC METABOLIC SET (NA, K, CL, TCO2, BUN, CR, GLU, CA) (12/04/2018 5:56 PM PDT) + +---------+ + + + | Component | Value | Ref Range | Performed | Pathologist | | | | | At | Signature | + +---------+ + + + | GLUCOSE, | 146 (H) | 70 - 99 mg/dL | [facility] | | | PLASMA | | | LABORATORY | | | (LAB) | | | SERVICES, | | | | | | CORE | | + +---------+ + + + | BUN, PLASMA | 16 | 6 - 20 mg/dL | [facility] | | | (LAB) | | | LABORATORY | | | | | | SERVICES, | | | | | | CORE | | + +---------+ + + + | CREATININE | 0.78 | 0.60 - 1.10 | [facility] | | | PLASMA | | mg/dL | LABORATORY | | | (LAB) | | | SERVICES, | | | | | | CORE | | + +---------+ + + + | EGFR | >60 | >60 mL/min | [facility] | | | - | | | LABORATORY | | | [place] | | | SERVICES, | | | | | | CORE | | + +---------+ + + + | EGFR NON | >60 | >60 mL/min | [facility] | | | -[facility] | | | LABORATORY | | | [facility] | | | SERVICES, | | | | | | CORE | | + +---------+ + + + | SODIUM, | 136 | 136 - 145 | [facility] | | | PLASMA | | mmol/L | LABORATORY | | | (LAB) | | | SERVICES, | | | | | | CORE | | + +---------+ + + + | POTASSIUM, | 4.7 | 3.4 - 5.0 | [facility] | | | PLASMA | | mmol/L | LABORATORY | | | (LAB) | | | SERVICES, | | | | | | CORE | | + +---------+ + + + | CHLORIDE, | 104 | 97 - 108 mmol/L | [facility] | | | PLASMA | | | LABORATORY | | | (LAB) | | | SERVICES, | | | | | | CORE | | + +---------+ + + + | TOTAL CO2, | 24 | 21 - 32 mmol/L | [facility] | | | PLASMA | | | LABORATORY | | | (LAB) | | | SERVICES, | | | | | | CORE | | + +---------+ + + + | CALCIUM, | 8.3 (L) | 8.6 - 10.2 | [facility] | | | PLASMA | | mg/dL | LABORATORY | | | (LAB) | | | SERVICES, | | | | | | CORE | | + +---------+ + + + | ANION GAP | 8 | 4 - 11 mmol/L | [facility] | | | | | | LABORATORY | | | | | | SERVICES, | | | | | | CORE | | + +---------+ + + + | POTASSIUM | Sl Hemo | | [facility] | | | CMNT | | | LABORATORY | | | | | | SERVICES, | | | | | | CORE | | + +---------+ + + + + + | Specimen | + + | Blood - Blood | | (substance) | + + + + + | Narrative | Performed At | + + + | Sample hemolyzed. Results for LD, K, and AST may be inaccurate. | [facility] | | Refer to comment under test. GFR is estimated using the MDRD | LABORATORY | | equation recommended by the National Kidney Disease Education Program. | SERVICES, CORE | | Estimated GFR Interpretive Information: <60 mL/min/1.73 sq m | | | Chronic Kidney Disease <15 mL/min/1.73 sq m | | | Kidney Failure Estimated GFR greater than 60 | | | mL/min/1.73 sq m is of limited clinical value. The MDRD equation | | | is not valid in the following situations: - Patients under 18 years | | | of age - Severe malnutrition or obesity - Vegetarian diet - Rapidly | | | changing kidney function - Amputees, paraplegics, or other | | | muscle-wasting diseses | | + + + + + + + + | Performing | Address | City/State/Zipcode | Phone Number | | Organization | | | | + + + + + | [facility] | [address] | [place] [address] | | | SERVICES, CORE | [address] | | | + + + + + CAPILLARY BLOOD GLUCOSE (NO CHG), POC (12/04/2018 5:53 PM PDT) + +---------+ + + + | Component | Value | Ref Range | Performed | Pathologist | | | | | At | Signature | + +---------+ + + + | BLOOD | 134 (H) | 60 - 99 mg/dL | [facility] - | | | GLUCOSE, | | | [facility] | | | POC | | | [facility] | | | | | | OF CARE | | | | | | TESTS | | + +---------+ + + + + + | Specimen | + + | | + + + + + + + | Performing | Address | City/State/Zipcode | Phone Number | | Organization | | | | + + + + + | [facility] | [address] | [place], [place] | | | [facility] | [address] | [address] | | | TESTS | | | | + + + + + OPERATION RECORD (12/04/2018 4:05 PM PDT) + + | Procedure Note | + + | Manoj Kumar MD - 12/04/2018 4:05 PM PDT Date of Service: 12/04/2018 Attending | | Surgeon:Manoj Kumar MD Key Cutter(s):Pritesh Chang | | Bethel Quevedo MD Preoperative Diagnosis: Left upper lobe | | primary lung cancer.Postoperative Diagnosis: Stage IIIA non-small cell lung cancer, | | left upper lobe.Procedures: Flexible bronchoscopy, endobronchial ultrasound needle | | aspiration biopsy level 7 and 4 L, cervical mediastinoscopy, biopsy of level 7 and 4R | | lymph nodes, left thoracoscopy, left muscle-sparing thoracotomy, left upper lobectomy | | with sleeve resection of airway and pulmonary artery with pulmonary artery plasty with | | pericardial patch, mediastinal lymph node dissections level 5, 6, 7, 9, L, 4L and hilar | | lymph nodes.Indications: Ms Allred is a 68-year-old lady with a good lung function who | | was found to have a PET-avid left upper lobe nodule. She also has enlarged AP window | | hilar lymph node but no enlarged mediastinal or avid mediastinal lymph nodes in the 4L, | | 4R or 7 position. She additionally has a PET-avid anterior lymph node located in the | | vicinity of the 3A lymph node bed. She is indicated for invasive staging with EBUS, | | possible mediastinoscopy and if the central nodes are found to be negative with left | | thoracoscopy, thoracotomy resection is indicated.Description Of Procedure: Ms Allred was | | brought to the operating room suite. General endotracheal anesthesia was induced. A | | single-lumen ET tube was placed. Flexible bronchoscopy was performed. The airway was | | examined out to the subsegmental level. No lesions were identified. The anatomy was | | normal. She did have some hyperemia in the left upper lobe airway. EBUS was now | | performed level 7 and 4L lymph nodes were identified. Multiple needle biopsies were | | sent. Rapid on-site cytology and revealed based mainly blood, no neoplasm, but no real | | lymph node material. Decision was made to proceed to cervical mediastinoscopy. A 1 cm | | incision was made 2 cm above the sternal notch, brought down to the pretracheal plane. | | Pretracheal plane was developed down to the subcarinal space. Subcarinal lymph nodes | | were removed almost in total, sent to Pathology for frozen section with no evidence of | | malignancy. 4L lymph nodes were inspected, however, no lymph node material was visible. | | We did view the left recurrent nerve, which we stayed well away from. A 4R lymph node | | was dissected out, sent for frozen section, and revealed no evidence of malignancy. | | Hemostasis was obtained. The incision was closed reapproximating the strap, platysma | | muscles and skin with absorbable suture. Sterile dressings applied. Patient was | | positioned in right lateral decubitus position after placement of a double-lumen tube. | | The left chest was prepped and draped. A thoracoscopy port site was placed at the | | anterior axillary line 7th interspace. The pleural space was inspected. There was no | | pleural disease, no pleural effusion. Inspection of the hilar lesion indicated that a | | thoracotomy would be required to resect this. A muscle-sparing thoracotomy was | | constructed. The latissimus was reflected posteriorly. The serratus was divided. | | Approximately the 4th interspace was entered. The mass was palpated. It felt hilar to | | the left upper lobe, but that a lobectomy could likely remove this. The inferior | | pulmonary ligament was divided. Level 9L lymph node sent for frozen section, revealed | | no evidence of malignancy. Level 7 lymph nodes now completed the dissection, sent for | | frozen section with no evidence of malignancy. The known PET-avid lymph node located in | | the AP window was intimately associated with the phrenic nerve, however, this could be | | swept off with careful sharp dissection. It was involving the recurrent nerve coming | | off the vagus. There did not appear any way to save the recurrent nerve as this went | | right through this lymph node. Therefore, the recurrent nerve was sacrificed. This | | lymph node did sweep free of the aorta, the proximal pulmonary artery, but was attached | | to the pericardium over the distal pulmonary artery as it became the left main pulmonary | | artery. We made an intrapericardial incision and were able to sweep this lymph node | | off the superior pulmonary vein and the pulmonary artery to the point where it could be | | separately dissected out and sent for permanent section. The multiple other 5/6 lymph | | nodes were sent for frozen section. They revealed metastatic non-small cell lung | | cancer. The 4L lymph nodes were dissected out, sent for frozen section. These were just | | next to the level 5/6 lymph nodes. They were also positive for neoplasm. The oblique | | fissure was mostly complete. We now completed it using the Harmonic scalpel. The most | | distal aspect was divided with Endo YOLANDA stapler purple load. Pulmonary arteries to the | | lingula and upper lobe were identified. Three lingular branches were taken, 1 with a | | Harmonic, 2 by single firings of YOLANDA stapler monterroso load. It was at this point we | | determined that this could be resected with a lobectomy, likely sleeve PA and sleeve | | airway. PA was clamped up. She did tolerate clamping of her left main PA. The superior | | pulmonary vein was divided with single firing of Endo YOLANDA stapler [place] load. This was | | done intrapericardial. The airway was now dissected out. The distal left main lower | | lobe airway, dissected out. A lymph node was sent from the crotch of the left upper to | | the left lower lobe. It was positive for neoplasm on frozen section. It was dissected | | out completely. Multiple hilar lymph nodes were also dissected out and were found to be | | positive for neoplasm. This was a complete hilar lymph node dissection. At this point, | | the only things remaining attached were the left upper lobe airway and the PA. We gave | | 2000 of heparin, clamped up the left main PA and cut into the PA, cutting the tumor off | | the PA with approximately 2-3 mm margin of left main PA. The airway was now divided | | taking a small portion of the lower lobe airway, small portion left main airway. This | | specimen was then sent to Pathology. Frozen section of bronchial margin was negative | | for malignancy. The pulmonary artery was reconstructed with a bovine pericardial patch | | using a running 5-0 Prolene suture. We used heparinized saline, were careful to de-air | | and retrograde bleed prior to opening it up. There were 2 small bleeders in the | | backside of the patch, which were repaired with a 5-0 Prolene with good hemostasis. The | | airway was turned into a wedge sleeve plasty by leaving a small portion of the | | membranous airway but wedging out another portion of the cartilaginous airway. It was | | then closed with multiple interrupted 4-0 Vicryl. As tested under 25 mmHg pressure, | | found to be airtight. The 3A lymph node was dissected out along with the left inferior | | pole of the thymus. It was also intimately attached to the phrenic nerve, but we were | | able to sweep the phrenic nerve off with very close sharp dissection. This was sent for | | permanent pathology. Hemostasis was confirmed. The ribs were reapproximated using | | multiple [id number] #2 Vicryl sutures. Serratus closed with #1 Vicryl, | | subcutaneous tissue closed with 2-0 Vicryl, skin closed with 4-0 Vicryl. Sterile | | dressings were applied. A single 28-Estonian chest tube was placed through the inferior | | thoracoscopy port site, secured to the skin with 2-0 nylon stitches. The patient was | | woken, extubated and taken to recovery room doing well.Findings: Ms Allred had a | | flexible bronchoscopy, endobronchial ultrasound which revealed no lymph node material. | | Biopsies were done of the level 7 and 4L lymph nodes. Cervical mediastinoscopy was | | done. Level 7 and 4R lymph nodes were dissected out, showed no neoplasm. We then | | performed a left thoracoscopy converted to a left muscle-sparing thoracotomy, ultimately | | performed a left upper lobectomy sleeve, bronchoplasty and sleeve pulmonary artery | | plasty taking a portion of the left main pulmonary artery and repairing this with a | | bovine pericardial patch. We also did extensive mediastinal lymph node dissections. | | The patient had multiple positive nodes in both the N1 and N2 positions. N2 lymph nodes | | were all in the vicinity of the 5/6 lymph node those being the 5/6 lymph nodes | | very close 4L to these lymph nodes as well as multiple 10L and 11L lymph | | nodes.PRITESH Hancock/NICKD: 12/04/2018 15:15:41DT: 12/04/2018 16:05:12Job #: | | [id number] | + + CAPILLARY BLOOD GLUCOSE (NO CHG), POC (12/04/2018 3:55 PM PDT) + +-------+ + + + | Component | Value | Ref Range | Performed | Pathologist | | | | | At | Signature | + +-------+ + + + | BLOOD | 98 | 60 - 99 mg/dL | [facility] - | | | GLUCOSE, | | | [facility] | | | POC | | | [place] [place] | | | | | | OF CARE | | | | | | TESTS | | + +-------+ + + + + + | Specimen | + + | | + + + + + + + | Performing | Address | City/State/Zipcode | Phone Number | | Organization | | | | + + + + + | [facility] | [address] | [place], [place] | | | [facility] | [address] | [address] | | | TESTS | | | | + + + + + ABG-FULL ABL POC (12/04/2018 2:27 PM PDT) + + + + + + | Component | Value | Ref Range | Performed | Pathologist | | | | | At | Signature | + + + + + + | PH | 7.38 | 7.37 - 7.44 | [facility] - | | | ARTERIAL, | | | [facility] | | | POC | | | [facility] | | | | | | OF CARE | | | | | | TESTS | | + + + + + + | PO2 | 190 (H) | 72 - 104 mmHg | [facility] | | | [facility], | | | [facility] | | | POC | | | [facility] | | | | | | [facility] CARE | | | | | | TESTS | | + + + + + + | PCO2 | 42 | 32 - 43 mmHg | [facility] - | | | [facility], | | | [facility] | | | POC | | | [facility] | | | | | | OF CARE | | | | | | TESTS | | + + + + + + | TOTAL | 10.4 (L) | 12.0 - 16.0 | [facility] - | | | HEMOGLOBIN, | | g/dL | [facility] | | | POC | | | [facility] | | | | | | OF CARE | | | | | | TESTS | | + + + + + + | O2 SAT | 99.7 (H) | 92.0 - 98.0 % | [facility] - | | | [facility], | | | [facility] | | | POC | | | [facility] | | | | | | OF CARE | | | | | | TESTS | | + + + + + + | OXYHEMOGLOB | 98.2 | 94.0 - 100 % | [facility] - | | | IN, POC | | | [facility] | | | | | | I[facility], POINT | | | | | | OF CARE | | | | | | TESTS | | + + + + + + | HEMATOCRIT, | 31.9 (L) | 36.0 - 46.0 % | [facility] - | | | POC | | | [facility] | | | | | | [facility] PO[facility] | | | | | | OF CARE | | | | | | TESTS | | + + + + + + | POTASSIUM, | 3.7 | 3.4 - 5.0 | [facility] - | | | POC | | mmol/L | [facility] | | | | | | [facility] | | | | | | OF CARE | | | | | | TESTS | | + + + + + + | SODIUM, POC | 137 | 134 - 143 | [facility] - | | | | | mmol/L | [facility] | | | | | | [facility] | | | | | | OF CARE | | | | | | TESTS | | + + + + + + | SARAHY | 1.17 | 1.14 - 1.32 | [facility] - | | | IONIZED CA, | | mmol/L | [facility] | | | POC | | | [facility] | | | | | | OF CARE | | | | | | TESTS | | + + + + + + | CHLORIDE, | 104 | 97 - 108 mmol/L | [facility] - | | | POC | | | [facility] | | | | | | [facility] | | | | | | OF CARE | | | | | | TESTS | | + + + + + + | GLUCOSE, | 172 (H) | 60 - 99 mg/dL | [facility] - | | | POC | | | [facility] | | | | | | [facility] | | | | | | OF CARE | | | | | | TESTS | | + + + + + + | HCO3 | 24.6 | 21 - 28 mmol/L | [facility] - | | | [facility], | | | [facility] | | | POC | | | [facility] | | | | | | OF CARE | | | | | | TESTS | | + + + + + + | BASE EXCESS | -0.5 | | [facility] - | | | [facility], | | | [facility] | | | POC | | | I[facility], POINT | | | | | | OF CARE | | | | | | TESTS | | + + + + + + | LACTATE | 1.0 | 0.5 - 1.6 | [facility] - | | | ARTERIAL, | | mmol/L | [facility] | | | POC | | | IESHA, POINT | | | | | | OF CARE | | | | | | TESTS | | + + + + + + | METHEMOGLOB | 0.9 | 0.0 - 1.9 % | [facility] - | | | IN, POC | | | [facility] | | | | | | [facility] | | | | | | OF CARE | | | | | | TESTS | | + + + + + + | PAT TEMP | 37.0 | | [facility] - | | | ART, POC | | | [facility] | | | | | | [facility] PO[facility] | | | | | | OF CARE | | | | | | TESTS | | + + + + + + + + | Specimen | + + | Blood - Blood | | (substance) | + + + + + + + | Performing | Address | City/State/Zipcode | Phone Number | | Organization | | | | + + + + + | [facility] | [address] | [place], [place] | | | [facility] | [address] | [phone] | | | TESTS | | | | + + + + + ABG-FULL ABL, POC (12/04/2018 12:55 PM PDT) + + + + + + | Component | Value | Ref Range | Performed | Pathologist | | | | | At | Signature | + + + + + + | PH | 7.41 | 7.37 - 7.44 | [facility] | | | [facility], | | | [facility] | | | POC | | | [facility] POINT | | | | | | OF CARE | | | | | | TESTS | | + + + + + + | PO2 | 139 (H) | 72 - 104 mmHg | [facility] - | | | [facility], | | | [facility] | | | POC | | | [facility] POINT | | | | | | OF CARE | | | | | | TESTS | | + + + + + + | PCO2 | 40 | 32 - 43 mmHg | [facility] - | | | [facility], | | | [facility] | | | POC | | | [facility], POINT | | | | | | OF CARE | | | | | | TESTS | | + + + + + + | TOTAL | 10.2 (L) | 12.0 - 16.0 | [facility] - | | | HEMOGLOBIN, | | g/dL | [facility] | | | POC | | | [facility] POINT | | | | | | OF CARE | | | | | | TESTS | | + + + + + + | O2 SAT | 99.2 (H) | 92.0 - 98.0 % | [facility] - | | | [facility], | | | [facility] | | | POC | | | [facility], POINT | | | | | | OF CARE | | | | | | TESTS | | + + + + + + | OXYHEMOGLOB | 97.4 | 94.0 - 100 % | [facility] - | | | IN, POC | | | [facility] | | | | | | [facility] POINT | | | | | | OF CARE | | | | | | TESTS | | + + + + + + | HEMATOCRIT, | 31.3 (L) | 36.0 - 46.0 % | [facility] - | | | POC | | | [facility] | | | | | | [facility] | | | | | | OF CARE | | | | | | TESTS | | + + + + + + | POTASSIUM, | 4.1 | 3.4 - 5.0 | [facility] - | | | POC | | mmol/L | [facility] | | | | | | [facility] | | | | | | OF CARE | | | | | | TESTS | | + + + + + + | SODIUM, POC | 136 | 134 - 143 | [facility] - | | | | | mmol/L | [facility] | | | | | | [facility] | | | | | | OF CARE | | | | | | TESTS | | + + + + + + | SARAHY | 1.15 | 1.14 - 1.32 | [facility] - | | | IONIZED CA, | | mmol/L | [facility] | | | POC | | | [facility] | | | | | | OF CARE | | | | | | TESTS | | + + + + + + | CHLORIDE, | 105 | 97 - 108 mmol/L | [facility] - | | | POC | | | [facility] | | | | | | [facility] | | | | | | OF CARE | | | | | | TESTS | | + + + + + + | GLUCOSE, | 174 (H) | 60 - 99 mg/dL | [facility] - | | | POC | | | [facility] | | | | | | [facility] | | | | | | OF CARE | | | | | | TESTS | | + + + + + + | HCO3 | 25.1 | 21 - 28 mmol/L | [facility] - | | | ARTERIAL, | | | [facility] | | | POC | | | [facility] | | | | | | OF CARE | | | | | | TESTS | | + + + + + + | BASE EXCESS | 0.4 | | [facility] - | | | [facility], | | | [facility] | | | POC | | | [facility] | | | | | | OF CARE | | | | | | TESTS | | + + + + + + | LACTATE | 0.9 | 0.5 - 1.6 | [facility] - | | | ARTERIAL, | | mmol/L | [facility] | | | POC | | | [facility] | | | | | | OF CARE | | | | | | TESTS | | + + + + + + | METHEMOGLOB | 0.8 | 0.0 - 1.9 % | [facility] - | | | IN, POC | | | [facility] | | | | | | [facility] | | | | | | OF CARE | | | | | | TESTS | | + + + + + + | PAT TEMP | 37.0 | | [facility] - | | | ART, POC | | | [facility] | | | | | | [facility] | | | | | | OF CARE | | | | | | TESTS | | + + + + + + + + | Specimen | + + | Blood - Blood | | (substance) | + + + + + + + | Performing | Address | City/State/Zipcode | Phone Number | | Organization | | | | + + + + + | [facility] | [address] | [place], [place] | | | [facility] | [facility] | [phone] | | | TESTS | | | | + + + + + ABG-EDER WYATT (12/04/2018 10:21 AM PDT) + + + + + + | Component | Value | Ref Range | Performed | Pathologist | | | | | At | Signature | + + + + + + | PH | 7.36 (L) | 7.37 - 7.44 | [facility] - | | | [facility], | | | [facility] | | | POC | | | [facility] | | | | | | OF CARE | | | | | | TESTS | | + + + + + + | PO2 | 355 (H) | 72 - 104 mmHg | [facility] - | | | ART[facility], | | | [facility] | | | POC | | | [facility] | | | | | | OF CARE | | | | | | TESTS | | + + + + + + | PCO2 | 45 (H) | 32 - 43 mmHg | [facility] - | | | ART[facility], | | | [facility] | | | POC | | | [facility] | | | | | | OF CARE | | | | | | TESTS | | + + + + + + | TOTAL | 10.0 (L) | 12.0 - 16.0 | [facility] - | | | HEMOGLOBIN, | | g/dL | [facility] | | | POC | | | [facility] | | | | | | OF CARE | | | | | | TESTS | | + + + + + + | O2 SAT | 100.1 (H) | 92.0 - 98.0 % | [facility] - | | | ART[facility], | | | [facility] | | | POC | | | [facility] | | | | | | OF CARE | | | | | | TESTS | | + + + + + + | OXYHEMOGLOB | 98.3 | 94.0 - 100 % | [facility] - | | | IN, POC | | | [facility] | | | | | | [facility] | | | | | | OF CARE | | | | | | TESTS | | + + + + + + | HEMATOCRIT, | 30.7 (L) | 36.0 - 46.0 % | [facility] - | | | POC | | | [facility] | | | | | | [facility] | | | | | | OF CARE | | | | | | TESTS | | + + + + + + | POTASSIUM, | 4.3 | 3.4 - 5.0 | [facility] - | | | POC | | mmol/L | [facility] | | | | | | [facility] | | | | | | OF CARE | | | | | | TESTS | | + + + + + + | SODIUM, POC | 137 | 134 - 143 | [facility] - | | | | | mmol/L | [facility] | | | | | | [facility] | | | | | | OF CARE | | | | | | TESTS | | + + + + + + | SARAHY | 1.19 | 1.14 - 1.32 | [facility] - | | | IONIZED CA, | | mmol/L | [facility] | | | POC | | | [facility] | | | | | | OF CARE | | | | | | TESTS | | + + + + + + | CHLORIDE, | 104 | 97 - 108 mmol/L | [facility] - | | | POC | | | [facility] | | | | | | [facility] | | | | | | OF CARE | | | | | | TESTS | | + + + + + + | GLUCOSE, | 128 (H) | 60 - 99 mg/dL | [facility] - | | | POC | | | [facility] | | | | | | [facility] | | | | | | OF CARE | | | | | | TESTS | | + + + + + + | HCO3 | 25.6 | 21 - 28 mmol/L | [facility] - | | | ART[facility], | | | [facility] | | | POC | | | [facility] | | | | | | OF CARE | | | | | | TESTS | | + + + + + + | BASE EXCESS | 0.1 | | [facility] - | | | [facility], | | | [facility] | | | POC | | | [facility] | | | | | | OF CARE | | | | | | TESTS | | + + + + + + | LACTATE | 1.1 | 0.5 - 1.6 | [facility] - | | | ARTERIAL, | | mmol/L | [facility] | | | POC | | | [facility] | | | | | | OF CARE | | | | | | TESTS | | + + + + + + | METHEMOGLOB | 0.8 | 0.0 - 1.9 % | [facility] - | | | IN, POC | | | [facility] | | | | | | [facility] | | | | | | OF CARE | | | | | | TESTS | | + + + + + + | PAT TEMP | 37.0 | | [facility] - | | | ART, POC | | | [facility] | | | | | | [facility] | | | | | | OF CARE | | | | | | TESTS | | + + + + + + + + | Specimen | + + | Blood - Blood | | (substance) | + + + + + + + | Performing | Address | City/State/Zipcode | Phone Number | | Organization | | | | + + + + + | [facility] | [address] | [place], [place] | | | [facility] | [address] | [phone] | | | TESTS | | | | + + + + + SURGICAL PATHOLOGY (12/04/2018 9:11 AM PDT) + + + + + + | Component | Value | Ref Range | Performed | Pathologist | | | | | At | Signature | + + + + + + | Clinical | 68 year old female with | | [facility] | | | History | a history of left upper | | DEPARTMENT | | | | lobe nodule and | | OF | | | | mediastinal adenopathy | | PATHOLOGY | | + + + + + + | Final | A. Lymph node, level 7, | | [facility] | Electronically | | Pathologic | biopsy: Fragments of | | DEPARTMENT | signed by | | Diagnosis | lymph node with | | OF | Jenny G | | | metastatic carcinoma | | PATHOLOGY | MD Rubina | | | (08/20) Sales cytokeratin | | | on 12/12/2018 at | | | immunostain confirms | | | 8:45 AM | | | presence of scattered | | | | | | tumor cells B. Lymph | | | | | | node, level 4R, | | | | | | biopsy: Fragments of | | | | | | lymph node negative for | | | | | | metastasis (0/1)C. Lymph | | | | | | node, additional level | | | | | | 7, biopsy: Fragments | | | | | | of lymph node negative | | | | | | for metastasis (0/1)D. | | | | | | Lymph node, level 9L, | | | | | | biopsy: Two lymph | | | | | | nodes negative for | | | | | | metastasis (0/2)E. Lymph | | | | | | node, level 4L, | | | | | | biopsy: Metastatic | | | | | | carcinoma in one lymph | | | | | | node (1/1)F. Lymph node, | | | | | | level 10L, biopsy: | | | | | | Two lymph nodes negative | | | | | | for metastasis (0/2)G. | | | | | | Lymph node, proximal | | | | | | level 10L, biopsy: | | | | | | Metastatic carcinoma in | | | | | | one of three lymph nodes | | | | | | (/3)H. Lymph node, | | | | | | level 11L, biopsy: | | | | | | Metastatic carcinoma in | | | | | | one lymph node (1/)I. | | | | | | Lymph node, level 7, | | | | | | biopsy: One lymph node | | | | | | negative for metastasis | | | | | | (0/1)J. Lung, AP | | | | | | window, biopsy: One | | | | | | lymph node positive for | | | | | | metastatic carcinoma | | | | | | (1/)K. Lymph node, 11L | | | | | | lower lobe, biopsy: | | | | | | Fragments of lymph node | | | | | | with metastatic | | | | | | carcinoma (1/1)L. Lymph | | | | | | node, level 11L | | | | | | BIFURCATION, biopsy: | | | | | | One lymph node with | | | | | | metastatic carcinoma | | | | | | (/) Tumor is also | | | | | | present in adjacent soft | | | | | | tissue (not due to | | | | | | extracapsular | | | | | | extension)M. Lymph node, | | | | | | 5-6 node, biopsy: | | | | | | Metastatic carcinoma in | | | | | | one lymph node (08/20), | | | | | | 1.8 cm. No extracapsular | | | | | | extensionN. Lymph node, | | | | | | 3A node, biopsy: One | | | | | | lymph node negative for | | | | | | metastasis (0/1)O. Lymph | | | | | | node, 3 superior, | | | | | | biopsy: Metastatic | | | | | | carcinoma in three of | | | | | | nine lymph nodes (10/26) | | | | | | Largest metastatic | | | | | | focus measures 2.6 cm | | | | | | (per gross | | | | | | description) No | | | | | | extracapsular | | | | | | extensionP. Lymph node, | | | | | | 3 most superior, | | | | | | biopsy: Two lymph | | | | | | nodes negative for | | | | | | metastasis (0/2)Q. Lung, | | | | | | upper lobe, left upper | | | | | | lobectomy: Invasive | | | | | | poorly differentiated | | | | | | adenocarcinoma, | | | | | | predominately solid, 3.2 | | | | | | cm Tumor penetrates | | | | | | and is present on the | | | | | | pleural surface (PL2) | | | | | | with adherent fibrin | | | | | | Lymphovascular and | | | | | | perineural invasion | | | | | | identified Metastatic | | | | | | carcinoma in two of two | | | | | | lymph nodes (2/2) | | | | | | Resection margins are | | | | | | negative for tumor | | | | | | AJCC pathologic stage | | | | | | (8th edition): | | | | | | [id number]: The | | | | | | tumor is predominately | | | | | | solid, immunostains for | | | | | | p63 (squamous | | | | | | differentiation) and | | | | | | TTF-1 are negative (Q7). | | | | | | There are areas with | | | | | | definite gland formation | | | | | | and signet ring like | | | | | | cells are seen in some | | | | | | of the lymph nodes. | | | | | | There is extensive | | | | | | lymphovascular invasion. | | | | | | The tumor present on | | | | | | the pleural surface is | | | | | | TTF-1 positive and | | | | | | calretinin negative | | | | | | (Q11).R. Lung, left main | | | | | | bronchial margin, | | | | | | biopsy: Negative for | | | | | | carcinomaCase seen | | | | | | by:Yi | | | | | | MD Mikhail - | | | | | | Surgical Pathology | | | | | | Fellow Jenny | | | | | | MD Rubina, PhD | | | | | | | | | | | | PathologistPathology, | | | | | | [facility] | | | | | | University electronic | | | | | | signature indicates that | | | | | | I have personally | | | | | | reviewed all diagnostic | | | | | | slides, the gross and/or | | | | | | microscopic portion of | | | | | | this report and | | | | | | formulated the final | | | | | | diagnosis.Me | | | | + + + + + + | SYNOPTIC | LUNG (Lung - All | | [facility] | | | REPORTS | Specimens) SPECIMEN | | DEPARTMENT | | | | Procedure: | | OF | | | | Lobectomy Specimen | | PATHOLOGY | | | | Laterality: Left | | | | | | TUMOR Tumor Site: | | | | | | Upper lobe of lung | | | | | | Histologic Type: | | | | | | Invasive | | | | | | adenocarcinoma, solid | | | | | | predominant Other | | | | | | Subtypes Present: | | | | | | acinar Histologic | | | | | | Grade: G3: Poorly | | | | | | differentiated | | | | | | Spread Through Air | | | | | | Spaces (ROBERTO): Not | | | | | | identified : | | | | | | Tumor Size: | | | | | | Greatest dimension in | | | | | | Centimeters (cm): 3.2 | | | | | | Centimeters (cm) | | | | | | Additional Dimension in | | | | | | Centimeters (cm): | | | | | | 2.2 Centimeters (cm) | | | | | | Additional | | | | | | Dimension in Centimeters | | | | | | (cm): 2.1 | | | | | | Centimeters (cm) Tumor | | | | | | Focality: Single | | | | | | tumor Tumor Extent: | | | | | | Visceral Pleura | | | | | | Invasion: Present | | | | | | Direct Invasion of | | | | | | Adjacent Structures: | | | | | | No adjacent structures | | | | | | present Accessory | | | | | | Findings: | | | | | | Treatment Effect: | | | | | | No known presurgical | | | | | | therapy | | | | | | Lymphovascular Invasion: | | | | | | Present : | | | | | | Lymphatic : | | | | | | Arterial MARGINS | | | | | | Margins: All | | | | | | margins are uninvolved | | | | | | by tumor Margins | | | | | | Examined: Bronchial | | | | | | Margins Examined: | | | | | | Vascular | | | | | | Margins Examined: | | | | | | Parenchymal | | | | | | Distance of Invasive | | | | | | Carcinoma from Closest | | | | | | Margin in Centimeters | | | | | | (cm): 0.2 | | | | | | Centimeters (cm) | | | | | | Closest Margin: | | | | | | Vascular LYMPH NODES | | | | | | Number of Lymph Nodes | | | | | | Involved: 13 | | | | | | Maria Ines Stations Involved: | | | | | | 3a: Pre-vascular | | | | | | Maria Ines Stations | | | | | | Involved: 7: | | | | | | Subcarinal Maria Ines | | | | | | Stations Involved: | | | | | | 4L: Lower paratracheal | | | | | | Maria Ines Stations | | | | | | Involved: 5: | | | | | | Subaortic/ | | | | | | aortopulmonary (AP) / AP | | | | | | window Maria Ines | | | | | | Stations Involved: | | | | | | 6: Para-aortic | | | | | | (ascending aorta or | | | | | | phrenic) Maria Ines | | | | | | Stations Involved: | | | | | | 10L: Hilar Maria Ines | | | | | | Stations Involved: | | | | | | 11L: Interlobar | | | | | | Extranodal Extension: | | | | | | Not identified | | | | | | Number of Lymph Nodes | | | | | | Examined: 31 | | | | | | Maria Ines Stations Examined: | | | | | | 4R: Lower | | | | | | paratracheal Maria Ines | | | | | | Stations Examined: | | | | | | 3a: Pre-vascular | | | | | | Maria Ines Stations Examined: | | | | | | 7: Subcarinal | | | | | | Maria Ines Stations Examined: | | | | | | 4L: Lower | | | | | | paratracheal Maria Ines | | | | | | Stations Examined: | | | | | | 5: Subaortic/ | | | | | | aortopulmonary (AP) / AP | | | | | | window Maria Ines | | | | | | Stations Examined: | | | | | | 6: Para-aortic | | | | | | (ascending aorta or | | | | | | phrenic) Maria Ines | | | | | | Stations Examined: | | | | | | 9L: Pulmonary ligament | | | | | | Maria Ines Stations | | | | | | Examined: 10L: | | | | | | Hilar Maria Ines Stations | | | | | | Examined: 11L: | | | | | | Interlobar PATHOLOGIC | | | | | | STAGE CLASSIFICATION | | | | | | (pTNM, AJCC 8th Edition) | | | | | | Primary Tumor (pT): | | | | | | pT2a Regional Lymph | | | | | | Nodes (pN): pN2 | | | | | | ADDITIONAL FINDINGS | | | | | | Additional Pathologic | | | | | | Findings: None | | | | | | identified | | | | + + + + + + | Gross | Received are 18 | | [facility] | | | Description | specimens fresh in | | DEPARTMENT | | | | containers labeled with | | OF | | | | the patient's name | | PATHOLOGY | | | | (initials JAO) and | | | | | | medical record number | | | | | | [id number]. Lymph node, | | | | | | level 7: Received fresh | | | | | | for intraoperative | | | | | | consultation, labeled | | | | | | "level 7-3" are multiple | | | | | | red-fairbanks soft tissue | | | | | | fragment measuring 2.5 x | | | | | | 1.7 x 0.8 cm in loose | | | | | | aggregate. The specimen | | | | | | is entirely submitted | | | | | | for frozen evaluation | | | | | | and subsequently | | | | | | submitted for permanent | | | | | | section in 2 cassettes, | | | | | | labeled A1 and A2.B. | | | | | | Lymph node, level 4R: | | | | | | Received fresh for | | | | | | intraoperative | | | | | | consultation, labeled | | | | | | "level 4R-4" are 4 | | | | | | fragments of yellow to | | | | | | black soft tissue | | | | | | measuring 0.9 x 0.8 x | | | | | | 0.4 cm in loose | | | | | | aggregate. The specimen | | | | | | is entirely submitted | | | | | | for frozen section and | | | | | | subsequently submitted | | | | | | for permanent section in | | | | | | 1 cassette, labeled | | | | | | B1.C. Lymph node, | | | | | | additional level 7: | | | | | | Received fresh for | | | | | | intraoperative | | | | | | consultation, labeled | | | | | | "additional level 7-5" | | | | | | are multiple red-fairbanks | | | | | | fragments of soft tissue | | | | | | measuring 2.0 x 1.0 x | | | | | | 0.5 cm in loose | | | | | | aggregate. The specimen | | | | | | is entirely submitted | | | | | | for frozen section and | | | | | | subsequently submitted | | | | | | for permanent section in | | | | | | 1 cassette, labeled | | | | | | C1.D. Lymph node, level | | | | | | 9L: Received fresh for | | | | | | intraoperative | | | | | | consultation, labeled | | | | | | "level 9L-6" is a 1.7 x | | | | | | 1.2 x 0.3 cm aggregate | | | | | | of fairbanks-yellow to monterroso | | | | | | soft tissue fragments. | | | | | | The specimen is entirely | | | | | | submitted for frozen | | | | | | section and subsequently | | | | | | submitted for permanent | | | | | | section 1 cassette, | | | | | | labeled D1.E. Lymph | | | | | | node, level 4L: Received | | | | | | fresh for | | | | | | intraoperative | | | | | | consultation, labeled | | | | | | "level 4L-7" is a 0.8 x | | | | | | 0.5 x 0.3 cm fragment of | | | | | | fairbanks-pink soft tissue. | | | | | | The specimen is entirely | | | | | | submitted for frozen | | | | | | section and subsequently | | | | | | submitted for permanent | | | | | | section in 1 cassette, | | | | | | labeled E1.F. Lymph | | | | | | node, level 10L: | | | | | | Received fresh for | | | | | | intraoperative | | | | | | consultation, labeled | | | | | | "level 10 L-8" is a 1.9 | | | | | | x 1.4 x 0.5 cm fragment | | | | | | of fairbanks-pink to monterroso soft | | | | | | tissue with 2 lymph | | | | | | node candidates (0.4 cm | | | | | | and 0.9 cm in greatest | | | | | | dimension). The lymph | | | | | | node candidates are | | | | | | entirely submitted for | | | | | | frozen evaluation. The | | | | | | specimen is entirely | | | | | | submitted in 2 | | | | | | cassettes, with the | | | | | | frozen section remnant | | | | | | in F1 and the remainder | | | | | | of the specimen in F2.G. | | | | | | Lymph node, proximal | | | | | | level 10L: Received | | | | | | fresh for intraoperative | | | | | | consultation, labeled | | | | | | "proximal level 10 L-9" | | | | | | is a 1.6 x 1.2 x 0.4 cm | | | | | | aggregate of [place]-pink to | | | | | | monterroso soft tissue | | | | | | fragments. 3 lymph node | | | | | | candidates, measuring | | | | | | 0.4 to 1 cm in greatest | | | | | | dimension, are | | | | | | identified. The | | | | | | specimen is entirely | | | | | | submitted for frozen | | | | | | evaluation and | | | | | | subsequently submitted | | | | | | for permanent section in | | | | | | 1 cassette, labeled | | | | | | G1.H. Lymph node, level | | | | | | 11L: Received fresh for | | | | | | intraoperative | | | | | | consultation, labeled | | | | | | "level 11 L-10" is a 1.8 | | | | | | x 1.2 x 0.4 cm | | | | | | aggregate of red-brown | | | | | | soft tissue fragments. | | | | | | The specimen is entirely | | | | | | submitted for frozen | | | | | | evaluation and | | | | | | subsequently submitted | | | | | | for permanent section in | | | | | | 1 cassette, labeled | | | | | | H1.I. Lymph node, level | | | | | | 7: Received fresh for | | | | | | intraoperative | | | | | | consultation, labeled | | | | | | "level 7-11" is a 1.8 x | | | | | | 0.8 x 0.4 cm aggregate | | | | | | of red-brown soft tissue | | | | | | fragments. The | | | | | | specimen is entirely | | | | | | submitted for frozen | | | | | | evaluation and | | | | | | subsequently submitted | | | | | | for permanent section in | | | | | | 1 cassette, labeled | | | | | | I1.J. Lung, AP window: | | | | | | Received fresh for | | | | | | intraoperative | | | | | | consultation, labeled | | | | | | "AP window-12" is a 1.8 | | | | | | x 1.0 x 0.4 cm aggregate | | | | | | of red-[place] soft tissue | | | | | | fragments. The specimen | | | | | | is entirely submitted | | | | | | for frozen evaluation | | | | | | and subsequently | | | | | | submitted for permanent | | | | | | section in 1 cassette, | | | | | | labeled J1.K. Lymph | | | | | | node, 11L lower lobe: | | | | | | Received labeled "11 L | | | | | | lower lobe-13" are | | | | | | multiple [place]-brown to | | | | | | black soft tissue | | | | | | fragment measuring 3.0 x | | | | | | 1.3 x 0.6 cm in loose | | | | | | aggregate. The specimen | | | | | | is entirely submitted | | | | | | in 1 cassette, labeled | | | | | | K1.L. Lymph node, level | | | | | | 11L BIFURCATION: | | | | | | Received fresh for | | | | | | intraoperative | | | | | | consultation, labeled | | | | | | "level L 11 | | | | | | bifurcation-14" is a 1.3 | | | | | | x 0.9 x 0.3 cm fair[place]-red | | | | | | to black portion of | | | | | | fibroadipose tissue. | | | | | | The specimen is entirely | | | | | | submitted in evaluation | | | | | | and subsequently | | | | | | submitted for permanent | | | | | | section in 1 cassette, | | | | | | labeled L1.M. Lymph | | | | | | node, 5-6 node: Received | | | | | | labeled "5 | | | | | | | | | | | | 6 node-15" 3.0 x 2.1 x | | | | | | 2.0 cm [place] round density | | | | | | suggestive of lymph | | | | | | node with a scant amount | | | | | | of attached yellow-[place], | | | | | | focally hemorrhagic | | | | | | fibrofatty soft tissue. | | | | | | The specimen is | | | | | | serially sectioned to | | | | | | reveal fairbanks-white to | | | | | | monterroso-black, firm, | | | | | | grossly positive cut | | | | | | surfaces. | | | | | | [employer] P[employer] sections | | | | | | are submitted in 2 | | | | | | cassettes, labeled M1 | | | | | | and M2.N. Lymph node, 3A | | | | | | node: Received fresh | | | | | | for intraoperative | | | | | | consultation, labeled | | | | | | "3A node-16" are 2 | | | | | | fairbanks-monterroso to yellow lymph | | | | | | node candidates, | | | | | | measuring 0.5 cm and 0.7 | | | | | | cm in greatest | | | | | | dimension, with a scant | | | | | | amount of attached | | | | | | adipose tissue. The | | | | | | specimen is entirely | | | | | | submitted for frozen | | | | | | section and subsequently | | | | | | submitted for permanent | | | | | | section in 1 cassette, | | | | | | labeled N1.O. Lymph | | | | | | node, 3 superior: | | | | | | Received labeled "3 | | | | | | superior-17" is | | | | | | yellow-fairbanks to fairbanks-brown | | | | | | fragment of fibrofatty | | | | | | soft tissue measuring | | | | | | 5.6 x 4.4 x 1.8 cm. 9 | | | | | | fairbanks-brown to monterroso-black | | | | | | densities suggestive of | | | | | | lymph nodes, ranging | | | | | | from 0.1-2.6 cm in | | | | | | greatest dimension, are | | | | | | identified. The largest | | | | | | of these densities | | | | | | exhibit fairbanks-white to | | | | | | fairbanks-monterroso, firm, grossly | | | | | | positive cut surfaces. | | | | | | The densities are | | | | | | entirely submitted in 5 | | | | | | cassettes, as | | | | | | follows:O1: 1 intact O2: | | | | | | 3 intact O3: 3 intact | | | | | | O4: 1 sectionedO5: 2.6 | | | | | | cm grossly positive | | | | | | density, compliance representative | | | | | | sectionsP. Lymph node, 3 | | | | | | most superior: Received | | | | | | labeled "3 most | | | | | | superior-18" is a 2.3 x | | | | | | 1.0 x 0.7 cm yellow-fairbanks | | | | | | to monterroso-black fragment | | | | | | of fibroadipose tissue | | | | | | with 2 monterroso-black | | | | | | apparent lymph node | | | | | | fragments which measure | | | | | | 0.7 cm and 0.5 cm in | | | | | | greatest dimension. The | | | | | | specimen is entirely | | | | | | submitted in 1 cassette, | | | | | | labeled P1.Q. Lung, | | | | | | LEFT UPPER LOBE: | | | | | | Received fresh for | | | | | | intraoperative | | | | | | consultation, labeled | | | | | | "left upper lobe-19" is | | | | | | a 175 g, 22.5 x 9.9 x | | | | | | 4.5 cm lung lobe. The | | | | | | margin of resection is | | | | | | closed via a 3.2 cm | | | | | | staple line; the staple | | | | | | line is shaved and the | | | | | | underlying tissue is | | | | | | inked blue. The pleura | | | | | | is pink-purple to | | | | | | focally monterroso-black with | | | | | | a 2.5 x 1.2 cm | | | | | | fairbanks-yellow, firm area of | | | | | | puckering located in | | | | | | the apex, 3.2 cm from | | | | | | the hilum of the lobe | | | | | | and a 2.3 x 1.5 cm | | | | | | fairbanks-white, indurated | | | | | | area located adjacent to | | | | | | the hilum. The pleura | | | | | | in the areas of | | | | | | puckering is inked | | | | | | black. At the lobe | | | | | | hilum, the bronchus | | | | | | measures 0.9 L x 1.5 D | | | | | | cm, the pulmonary artery | | | | | | measures 0.5 L x 0.9 D | | | | | | cm, and the pulmonary | | | | | | veins measure 0.5-0.7 L | | | | | | x 0.5 D cm. The | | | | | | bronchial margin is | | | | | | shaved and submitted en | | | | | | face for frozen | | | | | | evaluation (Q1). A 2.5 | | | | | | x 2.4 cm fairbanks-white, | | | | | | apparent intimal surface | | | | | | is present at the lobe | | | | | | hilum; the margin of | | | | | | resection of this | | | | | | apparent intimal surface | | | | | | is inked green. | | | | | | Sectioning reveals a 3.2 | | | | | | x 2.2 x 2.1 cm | | | | | | fairbanks-white to monterroso-brown | | | | | | and focally hemorrhagic, | | | | | | firm mass with focally | | | | | | ill-defined borders | | | | | | located at the lobe | | | | | | hilum, 1.6 cm from the | | | | | | parenchymal margin of | | | | | | resection, 0.4 cm from | | | | | | the bronchial margin of | | | | | | resection, and 0.2 cm | | | | | | from the pulmonary | | | | | | artery and nearest | | | | | | pulmonary vein margins. | | | | | | This mass abuts the | | | | | | apparent intimal surface | | | | | | at the hilum, coming to | | | | | | within <0.1 cm from the | | | | | | intimal surface margin | | | | | | of resection. This mass | | | | | | corresponds to the | | | | | | indurated area of pleura | | | | | | located adjacent to the | | | | | | hilum and grossly | | | | | | appears to abut but not | | | | | | involve the pleura in | | | | | | this area. The mass | | | | | | grossly involves the | | | | | | bronchus and possibly | | | | | | involves the vasculature | | | | | | within the parenchyma. | | | | | | An additional 2.5 x 2.2 | | | | | | x 1.9 cm fairbanks-white to | | | | | | mckeon-black, focally | | | | | | hemorrhagic mass with | | | | | | infiltrative borders is | | | | | | present at the periphery | | | | | | within the apex of the | | | | | | lobe, 3.7 cm from the | | | | | | hilar mass, 5.4 cm from | | | | | | bronchial margin, 6.2 cm | | | | | | from pulmonary margin, | | | | | | and 7.1 cm from the | | | | | | parenchymal margin of | | | | | | resection. This apical | | | | | | mass corresponds to the | | | | | | 2.5 cm area of pleural | | | | | | puckering and abuts the | | | | | | pleura in this area but | | | | | | does not grossly appear | | | | | | to extend through the | | | | | | pleura. The remaining | | | | | | parenchyma is fairbanks-brown | | | | | | with focal areas of | | | | | | mildly dilated airspaces | | | | | | and a 4.2 x 2.4 x 0.5 | | | | | | fairbanks-mckeon area of | | | | | | subpleural induration. | | | | | | 3 densities suggestive | | | | | | of lymph nodes, | | | | | | measuring 1.4 cm in | | | | | | greatest dimension, are | | | | | | identified near the | | | | | | hilum, with 2 densities | | | | | | directly adjacent to the | | | | | | 3.2 cm hilar mass. | | | | | | Wood Pile [employer] Operator sections | | | | | | are submitted in 14, as | | | | | | follows:Q1: Bronchial | | | | | | margin, en face, frozen | | | | | | section remnantQ2: | | | | | | Vascular margins, en | | | | | | faceQ3: Parenchymal | | | | | | margin, perpendicular | | | | | | sectionsQ4: 3.2 cm | | | | | | hilar mass, to include | | | | | | relationship to | | | | | | pulmonary artery, | | | | | | pleural surface, and | | | | | | adjacent lymph nodeQ5: | | | | | | Remainder of lymph node | | | | | | from B5L2-Q1: 3.2 cm | | | | | | hilar mass, to include | | | | | | relationship to | | | | | | bronchus, pleural | | | | | | surface, and apparent | | | | | | intimal surface and | | | | | | margin of | | | | | | resectionQ8-Q10: 2.5 cm | | | | | | apical mass, | | | | | | compliance representative sections, | | | | | | to include relationship | | | | | | with pleura in | | | | | | Q9-Q10Q11: Subpleural | | | | | | induration, | | | | | | compliance representative | | | | | | [id number]: Uninvolved | | | | | | parenchyma, | | | | | | compliance representative | | | | | | [id number]: 1 density | | | | | | suggestive of lymph | | | | | | node, [id number]: 1 | | | | | | density suggestive of | | | | | | lymph node, to include | | | | | | relationship to 3.2 cm | | | | | | hilar massR. Lung, left | | | | | | main bronchial margin: | | | | | | Received labeled "left | | | | | | main bronchial | | | | | | margin-20" is a | | | | | | fairbanks-brown to brown-red | | | | | | fragment of soft tissue | | | | | | measuring 1.3 x 0.5 x | | | | | | 0.4 cm. The specimen is | | | | | | entirely submitted in 1 | | | | | | cassette, labeled | | | | | | R1.kls | | | | + + + + + + | Intraoperat | Frozen section | | [facility] | | | david use | diagnosis: A1. Lymph | | DEPARTMENT | | | only - | node. level 7: Negative | | OF | | | Final | for malignancy | | PATHOLOGY | | | diagnosis | (0/1)Frozen section | | | | | listed | pathologist(s): Ravi | | | | | separately | MD Devonte PhD | | | | | | | | | | | | PathologistPathology, | | | | | | [facility] | | | | | | [facility] | | | | | | diagnosis: A2. Lymph | | | | | | node. level 7: Negative | | | | | | for malignancy | | | | | | (0/1)Frozen section | | | | | | pathologist(s): Ravi | | | | | | MD Devonte PhD | | | | | | | | | | | | PathologistPathology, | | | | | | [facility] | | | | | | [facility] | | | | | | diagnosis: B1. Lymph | | | | | | node. level 4R: Negative | | | | | | for malignancy | | | | | | (0/1)Frozen section | | | | | | pathologist(s): Ravi | | | | | | MD Devonte PhD | | | | | | | | | | | | PathologistPathology, | | | | | | [facility] | | | | | | [facility] | | | | | | diagnosis: C1. Lymph | | | | | | node. additional level | | | | | | 7: Negative for | | | | | | malignancy (0/1)Frozen | | | | | | section pathologist(s): | | | | | | Ravi Whitney MD PhD | | | | | | | | | | | | PathologistPathology, | | | | | | [facility] | | | | | | [facility] | | | | | | diagnosis: D1. Lymph | | | | | | node. level 9L: Negative | | | | | | for malignancy.Frozen | | | | | | section pathologist(s): | | | | | | Ravi Whitney MD, PhD | | | | | | | | | | | | PathologistPathology, | | | | | | [facility] | | | | | | [facility] | | | | | | diagnosis: E1. Lymph | | | | | | node. level 4L: Positive | | | | | | for carcinoma. Met | | | | | | GRACIELA.Frozen section | | | | | | pathologist(s): Ravi | | | | | | MD Devonte, PhD | | | | | | | | | | | | PathologistPathology, | | | | | | [facility] | | | | | | [facility] | | | | | | diagnosis: F1. Lymph | | | | | | node. level 10L: | | | | | | Negative for | | | | | | malignancy.Frozen | | | | | | section pathologist(s): | | | | | | Ravi Whitney MD, PhD | | | | | | | | | | | | | | | | | | PathologistPathology, | | | | | | [facility] | | | | | | [facility] | | | | | | diagnosis: G1. Lymph | | | | | | node. proximal level | | | | | | 10L: Positive for | | | | | | malignancy.Frozen | | | | | | section pathologist(s): | | | | | | Ravi Whitney MD, PhD | | | | | | | | | | | | | | | | | | PathologistPathology, | | | | | | [facility] | | | | | | [facility] | | | | | | diagnosis: H1. Lymph | | | | | | node. level 11L: | | | | | | Positive for malignancy | | | | | | (tumor and | | | | | | lymphatics)Frozen | | | | | | section pathologist(s): | | | | | | Ravi Whitney MD, PhD | | | | | | | | | | | | | | | | | | PathologistPathology, | | | | | | [facility] | | | | | | [facility] | | | | | | diagnosis: I1. Lymph | | | | | | node. level 7: Negative | | | | | | for malignancy.Frozen | | | | | | section pathologist(s): | | | | | | Ravi Whitney MD, PhD | | | | | | | | | | | | | | | | | | PathologistPathology, | | | | | | [facility] | | | | | | [facility] | | | | | | diagnosis: J1. Lung. AP | | | | | | window: Positive for | | | | | | malignancy.Frozen | | | | | | section pathologist(s): | | | | | | Ravi Whitney MD, PhD | | | | | | | | | | | | | | | | | | PathologistPathology, | | | | | | [facility] | | | | | | [facility] | | | | | | diagnosis: L1. Lymph | | | | | | node. level 11L | | | | | | BIFURCATION: Positive | | | | | | for malignancyFrozen | | | | | | section pathologist(s): | | | | | | Ravi Whitney MD, PhD | | | | | | | | | | | | | | | | | | PathologistPathology, | | | | | | [facility] | | | | | | [facility] | | | | | | diagnosis: N1. Lymph | | | | | | node. 3A node: No | | | | | | evidence of | | | | | | carcinomaFrozen section | | | | | | pathologist(s): Nomi | | | | | | MD Omaira | | | | | | | | | | | | PathologistOH[facility] | | | | | | [facility] | | | | | | [facility] | | | | | | diagnosis: Q1. Lung. | | | | | | Left upper lobe: | | | | | | Bronchial margin | | | | | | uninvolved by | | | | | | carcinomaFrozen section | | | | | | pathologist(s): Nomi | | | | | | MD Omaira | | | | | | | | | | | | PathologistOH[facility] | | | | | | PathologyLeighann | | | | | | [place] that point | | | | + + + + + + | Ancillary | Analyte specific | | [facility] | | | Information | reagents are used in | | DEPARTMENT | | | | many laboratory tests | | OF | | | | necessary for standard | | PATHOLOGY | | | | medical care. This test | | | | | | was developed and its | | | | | | performance | | | | | | characteristics | | | | | | determined by [facility] | | | | | | laboratories. It has | | | | | | not been cleared or | | | | | | approved by the [place] Food | | | | | | and Drug Administration | | | | | | (FDA). FDA does not | | | | | | require this test to go | | | | | | through premarket FDA | | | | | | review. This test is | | | | | | used for clinical | | | | | | purposes. It should not | | | | | | be regarded as | | | | | | investigational or for | | | | | | research. This | | | | | | laboratory is certified | | | | | | under the Clinical | | | | | | Laboratory Improvement | | | | | | Amendments (CLIA) as | | | | | | qualified to perform | | | | | | high complexity clinical | | | | | | laboratory testing. | | | | + + + + + + + + | Specimen | + + | Tissue - Structure | | of lymph node (body | | structure) | + + | Tissue - Structure | | of lymph node (body | | structure) | + + | Tissue - Structure | | of lymph node (body | | structure) | + + | Tissue - Structure | | of lymph node (body | | structure) | + + | Tissue - Structure | | of lymph node (body | | structure) | + + | Tissue - Structure | | of lymph node (body | | structure) | + + | Tissue - Structure | | of lymph node (body | | structure) | + + | Tissue - Structure | | of lymph node (body | | structure) | + + | Tissue - Structure | | of lymph node (body | | structure) | + + | Tissue - Lung | | structure (body | | structure) | + + | Tissue - Structure | | of lymph node (body | | structure) | + + | Tissue - Structure | | of lymph node (body | | structure) | + + | Tissue - Structure | | of lymph node (body | | structure) | + + | Tissue - Structure | | of lymph node (body | | structure) | + + | Tissue - Structure | | of lymph node (body | | structure) | + + | Tissue - Structure | | of lymph node (body | | structure) | + + | Tissue - Lung | | structure (body | | structure) | + + | Tissue - Lung | | structure (body | | structure) | + + + + + + + | Performing | Address | City/State/Zipcode | Phone Number | | Organization | | | | + + + + + | [facility] | [address] | [place] [address] | | | PATHOLOGY | [address] | | | + + + + + FINE NEEDLE ASPIRATE (12/04/2018 8:06 AM PDT) + + + + + + | Component | Value | Ref Range | Performed | Pathologist | | | | | At | Signature | + + + + + + | Addendum 1 | Addendum created in | | [facility] | Addendum | | | error. | | LABORATORY | electronically | | | | | SERVICES, | signed by Banner | | | | | [facility] | Christiano Ta MD on | | | | | HEALTH + | 01/07/2019 at | | | | | HEALING | 4:16 PM | + + + + + + | Clinical | 68 year-old woman with a | | [facility] | | | History | PET-avid left upper | | DEPARTMENT | | | | lobe nodule. | | OF | | | | | | PATHOLOGY | | + + + + + + | Final | A. Lymph node, level 7, | | [facility] | Electronically | | Pathologic | ultrasound guided fine | | LABORATORY | signed by Sung | | Diagnosis | needle aspiration: | | SERVICES, | E MD Keyon on | | | Consistent with lymph | | [facility] FOR | 12/09/2018 at | | | node sampling Negative | | HEALTH + | 10:35 AM | | | for carcinomaB. Lymph | | HEALING | | | | node, level 4L, | | | | | | ultrasound guided fine | | | | | | needle aspiration: | | | | | | Consistent with lymph | | | | | | node sampling No | | | | | | definite carcinoma cells | | | | | | identified See | | | | | | commentComment (part B): | | | | | | Epithelial cells are | | | | | | seen, favored to | | | | | | represent reactive | | | | | | respiratory epithelial | | | | | | cells [cytomorphology is | | | | | | compared to the | | | | | | corresponding surgical | | | | | | pathology case | | | | | | ([id number])]. No | | | | | | definite carcinoma cells | | | | | | seen are seen in this | | | | | | sampling, however see | | | | | | case [id number]. Case | | | | | | seen by:Kathryn | | | | | | Re[place], CT(ASCP) - | | | | | | CytotechnologistTodd | | | | | | MD Steve | | | | | | | | | | | | Pathology ResidentAaron | | | | | | DO [place] | | | | | | | | | | | | Cytopathology | | | | | | FellowMick MD Shaan | | | | | | | | | | | | | | | | | | PathologistPathology, | | | | | | [facility] | | | | | | University electronic | | | | | | signature indicates | | | | | | that I have personally | | | | | | reviewed all diagnostic | | | | | | slides, the gross and/or | | | | | | microscopic portion of | | | | | | this report and | | | | | | formulated the final | | | | | | diagnosis. | | | | + + + + + + | Immediate | A: Evaluation episode | | [facility] | | | Impression | #1: Pass #1-3: lymph | | DEPARTMENT | | | | node sampled B: | | OF | | | | Evaluation episode #1: | | PATHOLOGY | | | | Pass #1-3: QNSImmediate | | | | | | Impression evaluation | | | | | | was performed by - Jeovanny | | | | | | MD Shaan | | | | | | | | | | | | PathologistPathology, | | | | | | [facility] | | | | | | University | | | | + + + + + + | Procedure | A. FNA by clinician. 3 | | [facility] | | | Details | passes yielded fluid for | | DEPARTMENT | | | | 1 [facility] slide, 5 | | OF | | | | air-dried and 2 fixed | | PATHOLOGY | | | | slide(s). A cell block | | | | | | was prepared and | | | | | | examined.B. FNA by | | | | | | clinician. 3 passes | | | | | | yielded fluid for 1 | | | | | | [facility] slide, 3 | | | | | | air-dried and 3 fixed | | | | | | slide(s). A cell block | | | | | | was prepared and | | | | | | examined. | | | | + + + + + + + + | Specimen | + + | Tissue - Structure | | of lymph node (body | | structure) | + + | Tissue - Structure | | of lymph node (body | | structure) | + + + + + + + | Performing | Address | City/State/Zipcode | Phone Number | | Organization | | | | + + + + + | [facility] | [address] | [place] [address] | | | [facility] | | | | | HE[facility] + HEALING | | | | + + + + + | [facility] DEPARTMENT | [address] | [place] [address] | | | PATHOLOGY | [address] | | | + + + + + CAPILLARY BLOOD GLUCOSE (NO CHG), POC (12/04/2018 6:50 AM PDT) + +-------+ + + + | Component | Value | Ref Range | Performed | Pathologist | | | | | At | Signature | + +-------+ + + + | BLOOD | 92 | 60 - 99 mg/dL | [facility] - | | | GLUCOSE, | | | [facility] | | | POC | | | [facility] | | | | | | OF CARE | | | | | | TESTS | | + +-------+ + + + + + | Specimen | + + | | + + + + + + + | Performing | Address | City/State/Zipcode | Phone Number | | Organization | | | | + + + + + | [facility] | [address] | [place], [place] | | | [facility] | [address] | [phone] | | | TESTS | | | | + + + + + INTRAPROCEDURE IMAGING (12/04/2018 6:13 AM PDT) + + | Specimen | + + | | + + + + + | Narrative | Performed At | + + + | See admission or procedure notes for details of any intraprocedure | | | images obtained. | | + + + documented in this encounter Visit Diagnoses + + | Diagnosis | + + | NSCLC, s/p L upper lobectomy - Primary Malignant neoplasm of bronchus and lung, | | unspecified site | + + | Neoplasm Neoplasm of unspecified nature, site unspecified | + + | Gastroesophageal reflux disease, esophagitis presence not specified | + + | Hypothyroidism Unspecified hypothyroidism | + + | Acute post-operative pain | + + | Dysphagia due to vocal cord paralysis | + + | Postoperative anemia due to acute blood loss Acute posthemorrhagic anemia | + + | Chronic pain Other chronic pain | + + | HTN (hypertension) Unspecified essential hypertension | + + | Hypotension | + + | Hyperglycemia Other abnormal glucose | + + | Aspiration pneumonitis (HCC) Pneumonitis due to inhalation of food or vomitus | + + | Leukocytosis Leukocytosis, unspecified | + + | Acute respiratory distress syndrome (ARDS) (HCC) Other pulmonary insufficiency, not | | elsewhere classified, following trauma and surgery | + + | Paralysis of left vocal fold | + + | Hypophosphatemia Disorders of phosphorus metabolism | + + | Acute hypokalemia Hypopotassemia | + + documented in this encounter Administered Medications + +---------+ + +------+------+ | Medication Order | MAR | Action | Dose | Rate | Site | | | Action | Date | | | | + +---------+ + +------+------+ | acetaminophen (OFIRMEV) IV | New Bag | 12/06/19 | 1,000 mg | | | | 1,000 mg 1,000 mg, intravenous, | | 19 1:45 | | | | | EVERY 6 HOURS, 4 doses, First | | PM PDT | | | | | dose on Sun12/04/18 at 1900, Last | | | | | | | dose on Sun12/05/18 at 1300 | | | | | | + +---------+ + +------+------+ +---------+ + +---+---+ | New Bag | 12/06/19 | 1,000 mg | | | | | 19 8:45 | | | | | | AM PDT | | | | +---------+ + +---+---+ | New Bag | 12/05/19 | 1,000 mg | | | | | 19 11:54 | | | | | | PM PDT | | | | +---------+ + +---+---+ +---+---+ | | | +---+---+ + +-------+ +--------+---+---+ | acetaminophen (TYLENOL) oral | Given | 12/13/19 | 650 mg | | | | solution 650 mg 650 mg, feeding | | 19 10:07 | | | | | tube, EVERY 6 HOURS, First dose | | AM PDT | | | | | on 12/07/18 at 2200, Until | | | | | | | Discontinued | | | | | | + +-------+ +--------+---+---+ +-------+ +--------+---+---+ | Given | 12/13/19 | 650 mg | | | | | 19 4:09 | | | | | | AM PDT | | | | +-------+ +--------+---+---+ | Given | 12/12/19 | 650 mg | | | | | 19 9:20 | | | | | | PM PDT | | | | +-------+ +--------+---+---+ +---+---+ | | | +---+---+ + +-------+ +--------+---+---+ | acetaminophen (TYLENOL) tablet | Given | 12/08/19 | 650 mg | | | | 650 mg 650 mg, feeding tube, | | 19 5:49 | | | | | EVERY 6 HOURS, First dose on Sat | | PM PDT | | | | | 12/07/18 at 1800, Until | | | | | | | Discontinued | | | | | | + +-------+ +--------+---+---+ +---+---+ | | | +---+---+ + +-------+ +--------+---+---+ | acetaminophen (TYLENOL) tablet | Given | 12/15/19 | 650 mg | | | | 650 mg 650 mg, oral, EVERY 6 | | 19 8:58 | | | | | HOURS, First dose on [facility] 12/12/18 | | AM PDT | | | | | at 1600, Until Discontinued | | | | | | + +-------+ +--------+---+---+ +-------+ +--------+---+---+ | Given | 12/14/19 | 650 mg | | | | | 19 9:18 | | | | | | PM PDT | | | | +-------+ +--------+---+---+ | Given | 12/14/19 | 650 mg | | | | | 19 4:04 | | | | | | PM PDT | | | | +-------+ +--------+---+---+ +---+---+ | | | +---+---+ + +---------+ +--------+---+---+ | albumin human (BUMINATE, | New Bag | 12/06/19 | 12.5 g | | | | FLEXBUMIN) 5 % injection 12.5 g | | 19 1:16 | | | | | 12.5 g, intravenous, ONCE, 1 | | AM PDT | | | | | dose, [facility] 12/05/18 at 0115 | | | | | | + +---------+ +--------+---+---+ +---+---+ | | | +---+---+ + +-------+ +--------+---+---+ | albuterol 0.083% | Given | 12/09/19 | 2.5 mg | | | | (PROVENTIL,VENTOLIN) 2.5 mg /3 mL | | 19 8:47 | | | | | (0.083 %) nebulizer solution 2.5 | | AM PDT | | | | | mg 2.5 mg, inhalation, EVERY 6 | | | | | | | HOURS NEEDED, Starting Wed | | | | | | | 12/04/18 at 1819, Until Sun | | | | | | | 12/08/18 at 1212, dyspnea/SOB | | | | | | + +-------+ +--------+---+---+ +-------+ +--------+---+---+ | Given | 12/08/19 | 2.5 mg | | | | | 19 4:30 | | | | | | PM PDT | | | | +-------+ +--------+---+---+ | Given | 12/08/19 | 2.5 mg | | | | | 19 5:17 | | | | | | AM PDT | | | | +-------+ +--------+---+---+ +---+---+ | | | +---+---+ + +-------+ +--------+---+---+ | albuterol 0.083% | Given | 12/09/19 | 2.5 mg | | | | (PROVENTIL,VENTOLIN) 2.5 mg /3 mL | | 19 5:01 | | | | | (0.083 %) nebulizer solution 2.5 | | PM PDT | | | | | mg 2.5 mg, inhalation, EVERY 4 | | | | | | | HOURS NEEDED, Starting Sun | | | | | | | 12/08/18 at 1215, Until Sun | | | | | | | 12/08/18 at 1756, dyspnea/SOB | | | | | | + +-------+ +--------+---+---+ +-------+ +--------+---+---+ | Given | 12/09/19 | 2.5 mg | | | | | 19 12:17 | | | | | | PM PDT | | | | +-------+ +--------+---+---+ +---+---+ | | | +---+---+ + +-------+ +--------+---+---+ | albuterol 0.083% | Given | 12/10/19 | 2.5 mg | | | | (PROVENTIL,VENTOLIN) 2.5 mg /3 mL | | 19 11:38 | | | | | (0.083 %) nebulizer solution 2.5 | | AM PDT | | | | | mg 2.5 mg, inhalation, EVERY 4 | | | | | | | HOURS, First dose (after last | | | | | | | modification) on 12/08/18 at | | | | | | | 2000, Until Discontinued | | | | | | + +-------+ +--------+---+---+ +-------+ +--------+---+---+ | Given | 12/10/19 | 2.5 mg | | | | | 19 7:57 | | | | | | AM PDT | | | | +-------+ +--------+---+---+ | Given | 12/10/19 | 2.5 mg | | | | | 19 5:46 | | | | | | AM PDT | | | | +-------+ +--------+---+---+ +---+---+ | | | +---+---+ + +-------+ +--------+---+---+ | albuterol 0.5% | Given | 12/05/19 | 2.5 mg | | | | (PROVENTIL,VENTOLIN) 2.5 mg/0.5 | | 19 6:02 | | | | | mL nebulizer solution 2.5 mg 2.5 | | PM PDT | | | | | mg, inhalation, EVERY 6 HOURS | | | | | | | NEEDED, Starting Sun12/04/18 at | | | | | | | 1539, Until Sun12/04/18 at 1819, | | | | | | | dyspnea/SOB | | | | | | + +-------+ +--------+---+---+ +---+---+ | | | +---+---+ + +-------+ +--------+---+---+ | amoxicillin-clavulanate | Given | 12/13/19 | 875 mg | | | | (AUGMENTIN) 875-125 mg 875 mg | | 19 8:52 | | | | | 875 mg, feeding tube, TWICE | | AM PDT | | | | | DAILY, 10 doses, First dose on | | | | | | | 12/10/18 at 0900, Last dose on | | | | | | | 12/14/18 at 2100 | | | | | | + +-------+ +--------+---+---+ +-------+ +--------+---+---+ | Given | 12/12/19 | 875 mg | | | | | 19 9:20 | | | | | | PM PDT | | | | +-------+ +--------+---+---+ | Given | 12/12/19 | 875 mg | | | | | 19 9:10 | | | | | | AM PDT | | | | +-------+ +--------+---+---+ +---+---+ | | | +---+---+ + +-------+ +--------+---+---+ | amoxicillin-clavulanate | Given | 12/15/19 | 875 mg | | | | (AUGMENTIN) 875-125 mg 875 mg | | 19 8:57 | | | | | 875 mg, oral, TWICE DAILY, 5 | | AM PDT | | | | | doses, First dose (after last | | | | | | | modification) on [facility] 12/12/18 at | | | | | | | 2100, Last dose on [facility] 12/14/18 at | | | | | | | 2100 | | | | | | + +-------+ +--------+---+---+ +-------+ + +---+---+ | Given | 12/14/19 | 437.5 mg | | | | | 19 9:32 | | | | | | PM PDT | | | | +-------+ + +---+---+ | Given | 12/14/19 | 437.5 mg | | | | | 19 9:18 | | | | | | PM PDT | | | | +-------+ + +---+---+ +---+---+ | | | +---+---+ + +-------+ +--------+---+---+ | beclomethasone (QVAR) 40 | Given | 12/15/19 | 1 puff | | | | mcg/actuation inhaler 1 puff 1 | | 19 8:58 | | | | | puff, inhalation, TWICE DAILY, | | AM PDT | | | | | First dose (after last | | | | | | | modification) on Sun12/04/18 at | | | | | | | 2100, Until Discontinued | | | | | | + +-------+ +--------+---+---+ +-------+ +--------+---+---+ | Given | 12/14/19 | 1 puff | | | | | 19 9:18 | | | | | | PM PDT | | | | +-------+ +--------+---+---+ | Given | 12/14/19 | 1 puff | | | | | 19 9:00 | | | | | | AM PDT | | | | +-------+ +--------+---+---+ +---+---+ | | | +---+---+ + +---------+ +---+---------+---+ | bupivacaine (PF) 0.05 %, | New Bag | 12/06/19 | | 6 mL/hr | | | fentaNYL 5 mcg/mL in NaCl 0.9 % | | 19 7:47 | | | | | (NS) epidural infusion epidural, | | AM PDT | | | | | CONTINUOUS, Starting [facility] 12/05/18 | | | | | | | at 0715, Until [facility] 12/05/18 at | | | | | | | 0807 | | | | | | + +---------+ +---+---------+---+ +---+---+ | | | +---+---+ + + + +---+---------+---+ | bupivacaine (PF) 0.05 %, | Rate/Dos | 12/07/19 | | 8 mL/hr | | | fentaNYL 5 mcg/mL in NaCl 0.9 % | e Verify | 19 10:00 | | | | | (NS) epidural infusion epidural, | | AM PDT | | | | | CONTINUOUS, Starting [facility] 12/05/18 | | | | | | | at 0930, Until Sun12/06/18 at | | | | | | | 0816 | | | | | | + + + +---+---------+---+ + + +---+---------+---+ | Rate/Dose Verify | 12/07/19 | | 8 mL/hr | | | | 19 9:00 | | | | | | AM PDT | | | | + + +---+---------+---+ | Rate/Dose Verify | 12/07/19 | | 8 mL/hr | | | | 19 8:00 | | | | | | AM PDT | | | | + + +---+---------+---+ +---+---+ | | | +---+---+ + + + +---+---------+---+ | bupivacaine (PF) 0.05 %, | Rate/Dos | 12/06/19 | | 6 mL/hr | | | HYDROmorphone 20 mcg/mL in NaCl | e Verify | 19 7:00 | | | | | 0.9 % (NS) epidural infusion | | AM PDT | | | | | epidural, CONTINUOUS, Starting | | | | | | | 12/04/18 at 1945, Until [facility] | | | | | | | 12/05/18 at 0645 | | | | | | + + + +---+---------+---+ + + +---+---------+---+ | Rate/Dose Change | 12/06/19 | | 6 mL/hr | | | | 19 6:13 | | | | | | AM PDT | | | | + + +---+---------+---+ | Rate/Dose Change | 12/06/19 | | 7 mL/hr | | | | 19 1:43 | | | | | | AM PDT | | | | + + +---+---------+---+ +---+---+ | | | +---+---+ + + + +---+---------+---+ | bupivacaine 0.05 | Rate/Dos | 12/10/19 | | 9 mL/hr | | | %-HYDROmorphone 20 mcg/mL | e Verify | 19 9:00 | | | | | epidural infusion epidural, | | AM PDT | | | | | CONTINUOUS, Starting Sun12/06/18 | | | | | | | at 0900, Until 12/09/18 at | | | | | | | 1445 | | | | | | + + + +---+---------+---+ + + +---+---------+---+ | Rate/Dose Verify | 12/10/19 | | 9 mL/hr | | | | 19 8:00 | | | | | | AM PDT | | | | + + +---+---------+---+ | Rate/Dose Verify | 12/10/19 | | 9 mL/hr | | | | 19 6:00 | | | | | | AM PDT | | | | + + +---+---------+---+ +---+---+ | | | +---+---+ + +-------+ +--------+---+---+ | buPROPion (WELLBUTRIN) tablet | Given | 12/13/19 | 100 mg | | | | 100 mg 100 mg, feeding tube, | | 19 8:52 | | | | | THREE TIMES DAILY, First dose on | | AM PDT | | | | | 12/08/18 at 1600, Until | | | | | | | Discontinued | | | | | | + +-------+ +--------+---+---+ +-------+ +--------+---+---+ | Given | 12/12/19 | 100 mg | | | | | 19 9:20 | | | | | | PM PDT | | | | +-------+ +--------+---+---+ | Given | 12/12/19 | 100 mg | | | | | 19 4:41 | | | | | | PM PDT | | | | +-------+ +--------+---+---+ +---+---+ | | | +---+---+ + +-------+ +--------+---+---+ | buPROPion (WELLBUTRIN) tablet | Given | 12/15/19 | 100 mg | | | | 100 mg 100 mg, oral, THREE TIMES | | 19 8:58 | | | | | DAILY, First dose (after last | | AM PDT | | | | | modification) on [facility] 4/25/19 at | | | | | | | 1600, Until Discontinued | | | | | | + +-------+ +--------+---+---+ +-------+ +--------+---+---+ | Given | 12/14/19 | 100 mg | | | | | 19 9:18 | | | | | | PM PDT | | | | +-------+ +--------+---+---+ | Given | 12/14/19 | 100 mg | | | | | 19 4:03 | | | | | | PM PDT | | | | +-------+ +--------+---+---+ +---+---+ | | | +---+---+ + +---------+ +-----+---+---+ | ceFAZolin IV 2 gram in dextrose | New Bag | 12/06/19 | 2 g | | | | (RTU) 2 g, intravenous, EVERY 8 | | 19 4:34 | | | | | HOURS, 2 doses, First dose on | | AM PDT | | | | | 12/04/18 at 2100, Last dose on | | | | | | | [facility] 12/05/18 at 0500 | | | | | | + +---------+ +-----+---+---+ +---------+ +-----+---+---+ | New Bag | 12/05/19 | 2 g | | | | | 19 9:47 | | | | | | PM PDT | | | | +---------+ +-----+---+---+ +---+---+ | | | +---+---+ + + + + + +---+ | dextrose 5%-NaCl 0.45% IV | Rate/Dos | 12/08/19 | 25 mL/hr | 25 mL/hr | | | infusion 25 mL/hr, intravenous, | e Verify | 19 9:00 | | | | | CONTINUOUS, Starting 12/06/18 | | AM PDT | | | | | at 2200, Until 12/07/18 at | | | | | | | 1017 | | | | | | + + + + + +---+ + + + + +---+ | Rate/Dose Verify | 12/08/19 | 25 mL/hr | 25 mL/hr | | | | 19 8:00 | | | | | | AM PDT | | | | + + + + +---+ | Rate/Dose Verify | 12/08/19 | 25 mL/hr | 25 mL/hr | | | | 19 7:00 | | | | | | AM PDT | | | | + + + + +---+ +---+---+ | | | +---+---+ + +-------+ +-------+---+---------+ | enoxaparin (LOVENOX) injection | Given | 12/14/19 | 40 mg | | Abdomen | | 40 mg 40 mg, subcutaneous, EVERY | | 19 9:18 | | | | | EVENING, First dose on [facility] | | PM PDT | | | | | 12/05/18 at 2100, Until | | | | | | | Discontinued | | | | | | + +-------+ +-------+---+---------+ +-------+ +-------+---+---------+ | Given | 12/13/19 | 40 mg | | Abdomen | | | 19 9:19 | | | | | | PM PDT | | | | +-------+ +-------+---+---------+ | Given | 12/12/19 | 40 mg | | Abdomen | | | 19 9:20 | | | | | | PM PDT | | | | +-------+ +-------+---+---------+ +---+---+ | | | +---+---+ + +-------+ +------+---+---+ | estradiol (ESTRACE) tablet 2 mg | Given | 12/15/19 | 2 mg | | | | 2 mg, oral, DAILY, First dose | | 19 8:57 | | | | | on Sun12/13/18 at 1100, Until | | AM PDT | | | | | Discontinued | | | | | | + +-------+ +------+---+---+ +-------+ +------+---+---+ | Given | 12/14/19 | 2 mg | | | | | 19 12:54 | | | | | | PM PDT | | | | +-------+ +------+---+---+ +---+---+ | | | +---+---+ + +-------+ +-------+---+---+ | famotidine (PEPCID) injection | Given | 12/08/19 | 20 mg | | | | 20 mg 20 mg, intravenous, TWICE | | 19 9:28 | | | | | DAILY, First dose on Sun12/04/18 | | AM PDT | | | | | at 2300, Until Discontinued | | | | | | + +-------+ +-------+---+---+ +-------+ +-------+---+---+ | Given | 12/07/19 | 20 mg | | | | | 19 8:36 | | | | | | PM PDT | | | | +-------+ +-------+---+---+ | Given | 12/07/19 | 20 mg | | | | | 19 8:23 | | | | | | AM PDT | | | | +-------+ +-------+---+---+ +---+---+ | | | +---+---+ + +-------+ +-------+---+---+ | famotidine (PEPCID) tablet 20 | Given | 12/08/19 | 20 mg | | | | mg 20 mg, feeding tube, ONCE, 1 | | 19 5:49 | | | | | dose, 12/07/18 at 1645 | | PM PDT | | | | + +-------+ +-------+---+---+ +---+---+ | | | +---+---+ + +-------+ +--------+---+---+ | fentaNYL (SUBLIMAZE) injection | Given | 12/05/19 | 50 mcg | | | | 25-50 mcg 25-50 mcg, | | 19 4:11 | | | | | intravenous, POSTPROCEDURE PRN, 8 | | PM PDT | | | | | doses, Starting Sun12/04/18 at | | | | | | | 1521, Until Sun12/04/18 at 1734, | | | | | | | severe pain while in Phase I | | | | | | | Recovery | | | | | | + +-------+ +--------+---+---+ +-------+ +--------+---+---+ | Given | 12/05/19 | 50 mcg | | | | | 19 4:06 | | | | | | PM PDT | | | | +-------+ +--------+---+---+ +---+---+ | | | +---+---+ + +-------+ +-------+---+---+ | furosemide (LASIX) injection 20 | Given | 12/08/19 | 20 mg | | | | mg 20 mg, intravenous, ONCE, 1 | | 19 5:12 | | | | | dose, 12/07/18 at 0545 | | AM PDT | | | | + +-------+ +-------+---+---+ +---+---+ | | | +---+---+ + +-------+ +-------+---+---+ | furosemide (LASIX) injection 40 | Given | 12/09/19 | 40 mg | | | | mg 40 mg, intravenous, ONCE, 1 | | 19 4:24 | | | | | dose, [place] 12/08/18 at 1645 | | PM PDT | | | | + +-------+ +-------+---+---+ +---+---+ | | | +---+---+ + +-------+ +--------+---+---+ | HYDROmorphone (DILAUDID) | Given | 12/05/19 | 0.5 mg | | | | injection 0.2-0.5 mg 0.2-0.5 mg, | | 19 4:49 | | | | | intravenous, POSTPROCEDURE PRN, | | PM PDT | | | | | Starting Sun12/04/18 at 1521, | | | | | | | Until Sun12/04/18 at 1734, | | | | | | | moderate pain while in Phase I | | | | | | | Recovery | | | | | | + +-------+ +--------+---+---+ +-------+ +--------+---+---+ | Given | 12/05/19 | 0.5 mg | | | | | 19 4:34 | | | | | | PM PDT | | | | +-------+ +--------+---+---+ | Given | 12/05/19 | 0.5 mg | | | | | 19 4:22 | | | | | | PM PDT | | | | +-------+ +--------+---+---+ +---+---+ | | | +---+---+ + +-------+ +--------+---+---+ | HYDROmorphone (DILAUDID) | Given | 12/13/19 | 0.5 mg | | | | injection 0.2-0.5 mg 0.2-0.5 mg, | | 19 12:14 | | | | | intravenous, EVERY 6 HOURS | | AM PDT | | | | | NEEDED, Starting 12/09/18 at | | | | | | | 0958, Until 12/14/18 at 1814, | | | | | | | pain not covered by PO pain | | | | | | | medications | | | | | | + +-------+ +--------+---+---+ +-------+ +--------+---+---+ | Given | 12/12/19 | 0.2 mg | | | | | 19 9:05 | | | | | | AM PDT | | | | +-------+ +--------+---+---+ | Given | 12/12/19 | 0.2 mg | | | | | 19 3:51 | | | | | | AM PDT | | | | +-------+ +--------+---+---+ +---+---+ | | | +---+---+ + +-------+ +--------+---+---+ | HYDROmorphone (DILAUDID) | Given | 12/05/19 | 0.5 mg | | | | injection 0.5-1 mg 0.5-1 mg, | | 19 6:17 | | | | | intravenous, EVERY 2 HOURS | | PM PDT | | | | | NEEDED, Starting 12/04/18 at | | | | | | | 1804, Until Sun12/04/18 at 2052, | | | | | | | severe pain | | | | | | + +-------+ +--------+---+---+ +---+---+ | | | +---+---+ + + + + + +---+ | lactated ringers IV 50 mL/hr, | Rate/Dos | 12/05/19 | 50 mL/hr | 50 mL/hr | | | intravenous, CONTINUOUS, Starting | e Change | 19 7:46 | | | | | 12/04/18 at 1745, Until Sat | | PM PDT | | | | | 12/07/18 at 1017 | | | | | | + + + + + +---+ +---------+ + + +---+ | New Bag | 12/05/19 | 75 mL/hr | 75 mL/hr | | | | 19 6:31 | | | | | | PM PDT | | | | +---------+ + + +---+ +---+---+ | | | +---+---+ + +---------+ +--------+---+---+ | lactated ringers IV 500 mL, | New Bag | 12/05/19 | 500 mL | | | | intravenous, ONCE, 1 dose, Wed | | 19 8:10 | | | | | 12/04/18 at 2030 | | PM PDT | | | | + +---------+ +--------+---+---+ +---+---+ | | | +---+---+ + + + +--------+---+---+ | lactated ringers IV 500 mL, | Bolus | 12/05/19 | 500 mL | | | | intravenous, ONCE, 1 dose, Wed | from | 19 8:15 | | | | | 12/04/18 at 2045 | Same Bag | PM PDT | | | | + + + +--------+---+---+ +---+---+ | | | +---+---+ + + + +--------+---+---+ | lactated ringers IV 250 mL, | Bolus | 12/05/19 | 250 mL | | | | intravenous, ONCE, 1 dose, Wed | from | 19 8:55 | | | | | 12/04/18 at 2100 | Same Bag | PM PDT | | | | + + + +--------+---+---+ +---+---+ | | | +---+---+ + +---------+ + +---+---+ | lactated ringers IV 1,000 mL, | New Bag | 12/06/19 | 1,000 mL | | | | intravenous, ONCE, 1 dose, [facility] | | 19 6:53 | | | | | 12/05/18 at 0700 | | AM PDT | | | | + +---------+ + +---+---+ +---+---+ | | | +---+---+ + +---------+ + +---+---+ | lactated ringers IV 1,000 mL, | New Bag | 12/06/19 | 1,000 mL | | | | intravenous, ONCE, 1 dose, [facility] | | 19 9:13 | | | | | 12/05/18 at 0930 | | AM PDT | | | | + +---------+ + +---+---+ +---+---+ | | | +---+---+ + +---------+ + +---+---+ | lactated ringers IV 1,000 mL, | New Bag | 12/06/19 | 1,000 mL | | | | intravenous, ONCE, 1 dose, [facility] | | 19 12:30 | | | | | 12/05/18 at 1215 | | PM PDT | | | | + +---------+ + +---+---+ +---+---+ | | | +---+---+ + +---------+ +--------+---+---+ | lactated ringers IV 500 mL, | New Bag | 12/07/19 | 500 mL | | | | intravenous, ONCE, 1 dose, Fri | | 19 9:54 | | | | | 12/06/18 at 2130 | | PM PDT | | | | + +---------+ +--------+---+---+ +---+---+ | | | +---+---+ + +-------+ +--------+---+---+ | levothyroxine injection 25 mcg | Given | 12/08/19 | 25 mcg | | | | 25 mcg, intravenous, DAILY, | | 19 9:28 | | | | | First dose (after last | | AM PDT | | | | | modification) on 12/07/18 at | | | | | | | 0900, Until Discontinued | | | | | | + +-------+ +--------+---+---+ +---+---+ | | | +---+---+ + +-------+ +--------+---+---+ | levothyroxine tablet 50 mcg 50 | Given | 12/13/19 | 50 mcg | | | | mcg, feeding tube, BEFORE | | 19 6:34 | | | | | BREAKFAST, First dose on Sun | | AM PDT | | | | | 12/08/18 at 0630, Until | | | | | | | Discontinued | | | | | | + +-------+ +--------+---+---+ +-------+ +--------+---+---+ | Given | 12/12/19 | 50 mcg | | | | | 19 6:34 | | | | | | AM PDT | | | | +-------+ +--------+---+---+ | Given | 12/11/19 | 50 mcg | | | | | 19 5:46 | | | | | | AM PDT | | | | +-------+ +--------+---+---+ +---+---+ | | | +---+---+ + +-------+ +--------+---+---+ | levothyroxine tablet 50 mcg 50 | Given | 12/15/19 | 50 mcg | | | | mcg, oral, BEFORE BREAKFAST, | | 19 6:27 | | | | | First dose (after last | | AM PDT | | | | | modification) on Sun12/13/18 at | | | | | | | 0630, Until Discontinued | | | | | | + +-------+ +--------+---+---+ +-------+ +--------+---+---+ | Given | 12/14/19 | 50 mcg | | | | | 19 6:31 | | | | | | AM PDT | | | | +-------+ +--------+---+---+ +---+---+ | | | +---+---+ + + + +---------+---+---------+ | lidocaine (LIDODERM) 5 % patch | Applied | 12/14/19 | 1 patch | | Abdomen | | 1 patch 1 patch, transdermal, | Patch | 19 4:21 | | | | | EVERY 24 HOURS, First dose on Sun | | PM PDT | | | | | 12/04/18 at 1815, Until | | | | | | | Discontinued | | | | | | + + + +---------+---+---------+ + + +---------+---+ + | Applied Patch | 12/13/19 | 1 patch | | Chest | | | 19 6:03 | | | | | | PM PDT | | | | + + +---------+---+ + | Applied Patch | 12/12/19 | 1 patch | | Left Mid | | | 19 6:25 | | | Back | | | PM PDT | | | | + + +---------+---+ + +---+---+ | | | +---+---+ + +-------+ +------+---+---+ | lidocaine (XYLOCAINE) 10 mg/mL | Given | 12/05/19 | 1 mL | | | | (1 %) injection INTRAPROCEDURE | | 19 7:31 | | | | | PRN, Starting Sun12/04/18 at | | PM PDT | | | | | 1930, Until Sun12/04/18 at 1931 | | | | | | + +-------+ +------+---+---+ +-------+ +------+---+---+ | Given | 12/05/19 | 1 mL | | | | | 19 7:30 | | | | | | PM PDT | | | | +-------+ +------+---+---+ +---+---+ | | | +---+---+ + +-------+ +------+---+ + | lidocaine (XYLOCAINE) 10 mg/mL | Given | 12/06/19 | 1 mL | | Left Arm | | (1 %) injection INTRAPROCEDURE | | 19 2:12 | | | | | PRN, Starting Sun12/05/18 at | | AM PDT | | | | | 0212, Until Sun12/05/18 at 0212 | | | | | | + +-------+ +------+---+ + +---+---+ | | | +---+---+ + +-------+ +---+---+---+ | lidocaine (XYLOCAINE) 10 mg/mL | Given | 12/06/19 | | | | | (1 %) injection INTRAPROCEDURE | | 19 2:45 | | | | | PRN, Starting [facility] 12/05/18 at | | AM PDT | | | | | 0241, Until [facility] 12/05/18 at 024 | | | | | | + +-------+ +---+---+---+ +-------+ +------+---+--------+ | Given | 12/06/19 | 1 mL | | Right | | | 19 2:41 | | | Arm | | | AM PDT | | | | +-------+ +------+---+--------+ +---+---+ | | | +---+---+ + +-------+ +--------+---+---+ | lidocaine-EPINEPHrine | Given | 12/05/19 | 1.5 mL | | | | (XYLOCAINE WITH EPINEPHRINE) 2 | | 19 7:39 | | | | | %-1:100,000 injection | | PM PDT | | | | | INTRAPROCEDURE PRN, Starting Wed | | | | | | | 12/04/18 at 1939, Until Wed | | | | | | | 12/04/18 at 193 | | | | | | + +-------+ +--------+---+---+ +---+---+ | | | +---+---+ + +-------+ +--------+---+---+ | LORazepam (ATIVAN) injection | Given | 12/06/19 | 0.5 mg | | | | 0.5 mg 0.5 mg, intravenous, | | 19 8:11 | | | | | ONCE, 1 dose, [facility] 12/05/18 at 0830 | | AM PDT | | | | + +-------+ +--------+---+---+ +---+---+ | | | +---+---+ + +---------+ +-----+---+---+ | magnesium sulfate in water IV | New Bag | 12/10/19 | 2 g | | | | (RTU) 2 g 2 g, intravenous, | | 19 12:15 | | | | | NEEDED, Starting 12/07/18 at | | AM PDT | | | | | 2333, Until 12/09/18 at 1715, | | | | | | | magnesium level 1.6 - 2 mg/dL | | | | | | + +---------+ +-----+---+---+ +---+---+ | | | +---+---+ + +-------+ +------+---+---+ | menthol (sugar free) (COUGH | Given | 12/15/19 | 5 mg | | | | DROP) lozenge 5 mg 5 mg (1 | | 19 11:52 | | | | | lozenge), oral, NEEDED, | | AM PDT | | | | | Starting 12/13/18 at 1614, | | | | | | | Until 12/14/18 at 1814, sore | | | | | | | throat | | | | | | + +-------+ +------+---+---+ +-------+ +------+---+---+ | Given | 12/14/19 | 5 mg | | | | | 19 4:20 | | | | | | PM PDT | | | | +-------+ +------+---+---+ +---+---+ | | | +---+---+ + +-------+ +--------+---+---+ | nalbuphine (NUBAIN) injection | Given | 04/20/20 | 2.5 mg | | | | 2.5 mg 2.5 mg, intravenous, | | 19 2:36 | | | | | EVERY 15 MINUTES NEEDED, | | AM PDT | | | | | Starting Sun12/04/18 at 1903, | | | | | | | Until 12/09/18 at 1445, | | | | | | | itching, persistent | | | | | | | nausea/vomiting 30 min following | | | | | | | ondansetron administration | | | | | | + +-------+ +--------+---+---+ +-------+ +--------+---+---+ | Given | 12/07/19 | 2.5 mg | | | | | 19 12:01 | | | | | | AM PDT | | | | +-------+ +--------+---+---+ | Given | 12/06/19 | 2.5 mg | | | | | 19 1:35 | | | | | | PM PDT | | | | +-------+ +--------+---+---+ +---+---+ | | | +---+---+ + +-------+ +-------+---+---+ | omeprazole (PRILOSEC) capsule | Given | 12/15/19 | 20 mg | | | | 20 mg 20 mg, oral, BEFORE | | 19 6:27 | | | | | BREAKFAST, First dose on Fri | | AM PDT | | | | | 12/13/18 at 0630, Until | | | | | | | Discontinued | | | | | | + +-------+ +-------+---+---+ +-------+ +-------+---+---+ | Given | 12/14/19 | 20 mg | | | | | 19 6:31 | | | | | | AM PDT | | | | +-------+ +-------+---+---+ +---+---+ | | | +---+---+ + +-------+ +-------+---+---+ | omeprazole (PRILOSEC) oral | Given | 12/13/19 | 20 mg | | | | suspension (compound) 20 mg 20 | | 19 6:34 | | | | | mg, feeding tube, BEFORE | | AM PDT | | | | | BREAKFAST, First dose on Mon | | | | | | | 12/09/18 at 0630, Until | | | | | | | Discontinued | | | | | | + +-------+ +-------+---+---+ +-------+ +-------+---+---+ | Given | 12/12/19 | 20 mg | | | | | 19 6:34 | | | | | | AM PDT | | | | +-------+ +-------+---+---+ | Given | 12/11/19 | 20 mg | | | | | 19 5:52 | | | | | | AM PDT | | | | +-------+ +-------+---+---+ +---+---+ | | | +---+---+ + +-------+ +------+---+---+ | ondansetron (ZOFRAN) injection | Given | 12/10/19 | 4 mg | | | | 4 mg 4 mg, intravenous, EVERY 8 | | 19 11:28 | | | | | HOURS NEEDED, Starting Wed | | PM PDT | | | | | 12/04/18 at 1744, Until Sat | | | | | | | 12/14/18 at 1814, nausea/vomiting, | | | | | | | first line | | | | | | + +-------+ +------+---+---+ +-------+ +------+---+---+ | Given | 12/09/19 | 4 mg | | | | | 19 11:20 | | | | | | PM PDT | | | | +-------+ +------+---+---+ | Given | 12/07/19 | 4 mg | | | | | 19 2:33 | | | | | | PM PDT | | | | +-------+ +------+---+---+ +---+---+ | | | +---+---+ + +-------+ +-------+---+---+ | oxyCODONE (immediate release) | Given | 12/13/19 | 20 mg | | | | (ROXICODONE) tablet 10-20 mg | | 19 8:53 | | | | | 10-20 mg, feeding tube, EVERY 4 | | AM PDT | | | | | HOURS NEEDED, Starting Mon | | | | | | | 12/09/18 at 1004, Until Jenniffer | | | | | | | 12/12/18 at 1241, severe pain | | | | | | + +-------+ +-------+---+---+ +-------+ +-------+---+---+ | Given | 12/13/19 | 20 mg | | | | | 19 4:09 | | | | | | AM PDT | | | | +-------+ +-------+---+---+ | Given | 12/12/19 | 20 mg | | | | | 19 9:20 | | | | | | PM PDT | | | | +-------+ +-------+---+---+ +---+---+ | | | +---+---+ + +-------+ +-------+---+---+ | oxyCODONE (immediate release) | Given | 12/15/19 | 20 mg | | | | (ROXICODONE) tablet 10-20 mg | | 19 10:39 | | | | | 10-20 mg, oral, EVERY 4 HOURS | | AM PDT | | | | | NEEDED, Starting Jenniffer 12/12/18 at | | | | | | | 1241, Until 12/14/18 at 1814, | | | | | | | severe pain | | | | | | + +-------+ +-------+---+---+ +-------+ +-------+---+---+ | Given | 12/15/19 | 20 mg | | | | | 19 6:27 | | | | | | AM PDT | | | | +-------+ +-------+---+---+ | Given | 12/15/19 | 20 mg | | | | | 19 2:30 | | | | | | AM PDT | | | | +-------+ +-------+---+---+ +---+---+ | | | +---+---+ + +---------+ +--------+---+---+ | perflutren lipid microspheres | IV Push | 12/08/19 | 1.5 mL | | | | (DEFINITY) injection 1.5 mL 1.5 | | 19 9:12 | | | | | mL, intravenous, PROCEDURE ONCE, | | AM PDT | | | | | 1 dose, 12/07/18 at 0915 | | | | | | + +---------+ +--------+---+---+ +---+---+ | | | +---+---+ + + + + +-------+---+ | PHENYLEPHrine 25 mg/250 mL (0.1 | Rate/Dos | 12/06/19 | 0.2 | 6.96 | | | mg/mL) IV infusion (ADC) 0.1-2 | e Change | 19 3:40 | mcg/kg/m | mL/hr | | | mcg/kg/min | | PM PDT | in | | | | 58 kg (3.48-69.6 mL/hr), | | | | | | | intravenous, CONTINUOUS, Starting | | | | | | | Jenniffer 12/05/18 at 0415, Until Fri | | | | | | | 12/06/18 at 0640 | | | | | | + + + + +-------+---+ + + + +--------+---+ | Rate/Dose Change | 12/06/19 | 0.4 | 13.92 | | | | 19 3:20 | mcg/kg/m | mL/hr | | | | PM PDT | in | | | + + + +--------+---+ | Rate/Dose Change | 12/06/19 | 0.6 | 20.88 | | | | 19 3:00 | mcg/kg/m | mL/hr | | | | PM PDT | in | | | + + + +--------+---+ + +---+ | | | + +---+ | polyethylene glycol (MIRALAX) | | | packet 17 g 17 g, oral, DAILY | | | NEEDED, Starting Jenniffer 12/12/18 at | | | 1241, Until 12/14/18 at 1814, | | | 1st line - for no BM for 2 days | | + +---+ | | | + +---+ + +-------+ +------+---+---+ | polyethylene glycol (MIRALAX) | Given | 12/12/19 | 34 g | | | | packet 34 g 34 g, feeding tube, | | 19 10:55 | | | | | THREE TIMES DAILY NEEDED, | | AM PDT | | | | | Starting 12/07/18 at 1614, | | | | | | | Until Jenniffer 12/12/18 at 0714, 1st | | | | | | | line - for no BM for 2 days | | | | | | + +-------+ +------+---+---+ +-------+ +------+---+---+ | Given | 12/11/19 | 34 g | | | | | 19 9:38 | | | | | | AM PDT | | | | +-------+ +------+---+---+ | Given | 12/09/19 | 34 g | | | | | 19 8:18 | | | | | | PM PDT | | | | +-------+ +------+---+---+ +---+---+ | | | +---+---+ + +-------+ +--------+---+---+ | potassium & sodium phosphates | Given | 12/11/19 | 500 mg | | | | (K PHOS NEUTRAL) tablet 500 mg | | 19 9:19 | | | | | 500 mg, feeding tube, TWICE | | PM PDT | | | | | DAILY, 2 doses, First dose on Tue | | | | | | | 12/10/18 at 0900, Last dose on | | | | | | | 12/10/18 at 2100 | | | | | | + +-------+ +--------+---+---+ +-------+ +--------+---+---+ | Given | 12/11/19 | 500 mg | | | | | 19 9:37 | | | | | | AM PDT | | | | +-------+ +--------+---+---+ +---+---+ | | | +---+---+ + +-------+ +--------+---+---+ | potassium chloride (KLOR-CON) | Given | 12/09/19 | 20 mEq | | | | packet 20 mEq 20 mEq, feeding | | 19 4:23 | | | | | tube, ONCE, 1 dose, 12/08/18 | | PM PDT | | | | | at 1645 | | | | | | + +-------+ +--------+---+---+ +---+---+ | | | +---+---+ + +-------+ +--------+---+---+ | potassium chloride (KLOR-CON) | Given | 12/10/19 | 20 mEq | | | | packet 20-40 mEq 20-40 mEq, | | 19 3:47 | | | | | feeding tube, NEEDED, Starting | | PM PDT | | | | | 12/07/18 at 2333, Until Mon | | | | | | | 12/09/18 at 1715, hypokalemia per | | | | | | | protocol. if unable to take PO | | | | | | | potassium. See administration | | | | | | | instructions. | | | | | | + +-------+ +--------+---+---+ +-------+ +--------+---+---+ | Given | 12/10/19 | 40 mEq | | | | | 19 1:45 | | | | | | PM PDT | | | | +-------+ +--------+---+---+ | Given | 12/10/19 | 20 mEq | | | | | 19 2:04 | | | | | | AM PDT | | | | +-------+ +--------+---+---+ +---+---+ | | | +---+---+ + +-------+ +--------+---+---+ | potassium chloride (KLOR-CON) | Given | 12/09/19 | 40 mEq | | | | packet 40 mEq 40 mEq, feeding | | 19 12:24 | | | | | tube, ONCE, 1 dose, 12/08/18 | | AM PDT | | | | | at 0015 | | | | | | + +-------+ +--------+---+---+ +---+---+ | | | +---+---+ + +---------+ +--------+---+---+ | potassium chloride IV | New Bag | 12/07/19 | 20 mEq | | | | (peripheral line) 20 mEq 20 mEq, | | 19 11:04 | | | | | intravenous, ONCE, 1 dose, Fri | | AM PDT | | | | | 12/06/18 at 1100 | | | | | | + +---------+ +--------+---+---+ +---+---+ | | | +---+---+ + +---------+ +---------+---+---+ | potassium phosphate IV 30 mmol | New Bag | 12/09/19 | 30 mmol | | | | 30 mmol, intravenous, ONCE, 1 | | 19 8:11 | | | | | dose, 12/08/18 at 0645 | | AM PDT | | | | + +---------+ +---------+---+---+ +---+---+ | | | +---+---+ + +-------+ +---------+---+---+ | potassium, sodium phosphates | Given | 12/09/19 | 2 | | | | (JOSE CRUZA-PHODebbie, ERA-NAK) | | 19 11:33 | packets | | | | 280-160-250 mg packet 2 packet 2 | | AM PDT | | | | | packet, feeding tube, FOUR TIMES | | | | | | | DAILY, First dose on 12/08/18 | | | | | | | at 1045, Until Discontinued | | | | | | + +-------+ +---------+---+---+ +---+---+ | | | +---+---+ + +-------+ + +---+---+ | senna-docusate (SENOKOT S) | Given | 12/12/19 | 1 tablet | | | | 8.6-50 mg 1 tablet 1 tablet, | | 19 10:55 | | | | | feeding tube, TWICE DAILY, First | | AM PDT | | | | | dose on 12/07/18 at 2100, | | | | | | | Until Discontinued | | | | | | + +-------+ + +---+---+ +-------+ + +---+---+ | Given | 12/11/19 | 1 tablet | | | | | 19 9:20 | | | | | | PM PDT | | | | +-------+ + +---+---+ | Given | 12/11/19 | 1 tablet | | | | | 19 9:37 | | | | | | AM PDT | | | | +-------+ + +---+---+ + +---+ | | | + +---+ | senna-docusate (SENOKOT S) | | | 8.6-50 mg 1 tablet 1 tablet, | | | oral, TWICE DAILY NEEDED, | | | Starting [facility] 12/12/18 at 1241, | | | Until 12/14/18 at 1814, | | | constipation | | + +---+ | | | + +---+ + +---------+ +--------+---+---+ | sodium chloride 0.9 % (NS) IV | New Bag | 12/06/19 | 500 mL | | | | infusion 500 mL, intravenous, | | 19 3:00 | | | | | ONCE, 1 dose, [facility] 12/05/18 at 0345 | | AM PDT | | | | + +---------+ +--------+---+---+ +---+---+ | | | +---+---+ + +---------+ +---------+ +---+ | sodium glycerophosphate | New Bag | 12/08/19 | 15 mmol | 25 mL/hr | | | (GLYCOPHOS) IV 15 mmol 15 mmol, | | 19 9:28 | | | | | intravenous, ONCE, 1 dose, Sat | | AM PDT | | | | | 12/07/18 at 0915 | | | | | | + +---------+ +---------+ +---+ +---+---+ | | | +---+---+ + +---------+ +---------+---+---+ | sodium glycerophosphate | Bag | 12/09/19 | 30 mmol | | | | (GLYCOPHOS) IV 30 mmol 30 mmol, | | 19 1:09 | | | | | intravenous, ONCE, 1 dose, Sun | | PM PDT | | | | | 12/08/18 at 0645 | | | | | | + +---------+ +---------+---+---+ +---+---+ | | | +---+---+ + +---------+ +---------+---+---+ | sodium glycerophosphate | New Bag | 12/10/19 | 45 mmol | | | | (GLYCOPHOS) IV 45 mmol 45 mmol, | | 19 2:58 | | | | | intravenous, NEEDED, Starting | | PM PDT | | | | | 12/07/18 at 2333, Until Mon | | | | | | | 12/09/18 at 1715, phosphate level | | | | | | | 1 - 1.7 mg/dL | | | | | | + +---------+ +---------+---+---+ +---+---+ | | | +---+---+ + +-------+ +--------+---+---+ | triamterene-hydrochlorothiazide | Given | 12/13/19 | 1 each | | | | (MAXZIDE) 18.75-12.5 mg oral | | 19 10:08 | | | | | dose 1 each 1 each, feeding | | AM PDT | | | | | tube, DAILY, First dose on Sun | | | | | | | 12/08/18 at 2000, Until | | | | | | | Discontinued | | | | | | + +-------+ +--------+---+---+ +-------+ +--------+---+---+ | Given | 12/12/19 | 1 each | | | | | 19 10:56 | | | | | | AM PDT | | | | +-------+ +--------+---+---+ | Given | 12/11/19 | 1 each | | | | | 19 10:42 | | | | | | AM PDT | | | | +-------+ +--------+---+---+ +---+---+ | | | +---+---+ + +-------+ +--------+---+---+ | triamterene-hydrochlorothiazide | Given | 12/15/19 | 1 each | | | | (MAXZIDE) 18.75-12.5 mg oral | | 19 8:57 | | | | | dose 1 each 1 each, oral, DAILY, | | AM PDT | | | | | First dose (after last | | | | | | | modification) on Sun12/13/18 at | | | | | | | 0900, Until Discontinued | | | | | | + +-------+ +--------+---+---+ +-------+ +--------+---+---+ | Given | 12/14/19 | 1 each | | | | | 19 8:56 | | | | | | AM PDT | | | | +-------+ +--------+---+---+ +---+---+ | | | +---+---+ documented in this encounter
--- OUTSIDE RECORDS SUMMARY | ~2020-03-30 | XMS | Encounter Summary ---
Demographics + + + | Address | [address] | | | [place] [address] | + + + | Home Phone | | + + + | Preferred Language | Unknown | + + + | Marital Status | Single | + + + | Lutheran Affiliation | Unknown | + + + | Race | Unknown | + + + | Ethnic Group | Unknown | + + + Author + + + | Author | [facility] | | | and Jakobana | + + + | Organization | 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 [address] | | | | | upper lobe | [address] | | | | | | of left lung | [place], | | | | | | (HCC) | [place] [address] | | | | | | | Phone: | | | | | | | [phone] | | | | | | | Fax: | | | | | | | [phone] | | +--------+ + + + + + Encounter Details +--------+ + + + + | Date | Type | Department | Care Team | Description | +--------+ + + + + | 02/13/ | Hospital | [facility] | Lauryn Stuart, | Malignant neoplasm | | 2019 | Encounter | [facility] | PA-C [address] | of upper lobe of | | | | SERVICES [address] | [address], | left lung (HCC) | | | | [place], | [place] [address] | | | | | [place] [address] | [phone] | | | | | [phone] | | | | | | | Ramona Blackburn, | | | | | | RDN | | +--------+ + + + + [...] documented as of this encounter Progress Notes Ramona Blackburn, ANYA - 2019 2:30 PM PDTFormatting of this note might be different f rom the original. Medical Nutrition Note SUBJECTIVE: Pt was seen in the cancer center for lab draw and SIM for radiation. She has had problems with n/v, is a vegetarian and would like information on high protein high calor ie vegetarian options. Provided written information on N/V MNT and vegetarian recipes. Als o provided samples of Boost. OBJECTIVE: Diet: Vegetarian high protein high calorie Wt Readings from Last 3 Encounters: 02/05/19 54.8 kg (120 lb 13 oz) 02/04/19 53.9 kg (118 lb 13.3 oz) 01/30/19 53.9 kg (118 lb 13.3 oz) Ht Readings from Last 1 Encounters: 01/30/19 1.65 m (5' 4.96") Estimated needs (wt. 55 kg) 5235-5221 kcals/day 55-66 gm pro/day Medications: reviewed ASSESSMENT/PLAN: Nutrition Diagnosis: Food and nutrition related knowledge deficit related to n/v and high protein vegetarian options as evidenced by verbalization from the pt. Interventions: 1. High protein high calorie Vegetarian MNT 2. Nausea and vomiting MNT Nutrition Goals: 1. To meet nutritional needs 2. To maintain weight Monitor: 1. Nutrition parameters 2. Follow up in the cancer center Time spent: 15 minutes Thank you for the referral, Ramona Blackburn RDN 2019 14:30 documented in this encounter Plan of Treatment [...] | | | | | [place] [address] | | | | | | [phone] | | | | | | | | +--------+ + + + + + + +--------+ + + | Name | Type | Priori | Associated Diagnoses | Order Schedule | | | | ty | | | + + +--------+ + + | * [facility] | Outpatient | Routin | Malignant neoplasm | Ordered: 02/04/2019 | | Services - AMB | Referral | e | [...]
--- OUTSIDE RECORDS SUMMARY | ~2020-03-30 | XMS | Encounter Summary ---
Demographics + + + | Address | [address] | | | [place] [address] | + + + | Home Phone | | + + + | Preferred Language | Unknown | + + + | Marital Status | Single | + + + | Mormon Affiliation | Unknown | + + + | Race | Unknown | + + + | Ethnic Group | Unknown | + + + Author + + + | Author | [facility] | | | and Jakobana | + + + | Organization | [facility] | | | and Jakobana [...] Team Providers + +------+ + | Care Pharmacy Clinical Specialist Name | Role | Phone | [...] | | ANNELISE GROSSMAN | [place] [address] | | | | | [place] [address] | | | | | | [phone] | | | +--------+ + + + [...] | | | | | [place] [address] | | | | | | [phone] | | | | | | | | +--------+ + + + + documented as of this encounter Procedures + +--------+ + + + | Procedure Name | Priori | Date/Time | Associated Diagnosis | Comments | | | ty | | | | + +--------+ + + + | XR CHEST AP PORTABLE | Routin | 12/08/2018 | | Results for this | | | e | 4:30 PM | | procedure are in the | | | | PDT | | results section. | + +--------+ + + + documented in this encounter Results XR Chest AP Portable (12/08/2018 4:30 PM PDT) + + | Specimen | [...]
--- OUTSIDE RECORDS SUMMARY | ~2020-03-30 | XMS | Encounter Summary ---
Demographics + + + | Address | [address] | | | [place] [address] | + + + | Home Phone | | + + + | Preferred Language | Unknown | + + + | Marital Status | Single | + + + | Pentecostalism Affiliation | NRP | + + + | Race | White | + + + | Ethnic Group | Not or | + + + Author + + + | Author | [facility] | + + + | Organization | [facility] | + + + | Address | Unknown | + + + | Phone | Unavailable | + + + Support + + +---------+ + | Name | Relationship | Address | Phone | + + +---------+ + | Laura Allred | ECON | Unknown | | + + +---------+ + Care Team Providers + +------+ + | Care Fiscal Clerk Name | Role | Phone | + +------+ + | Lauryn Stuart | PCP | | + +------+ + Encounter Details +--------+ + + + + | Date | Type | Department | Care Team | Description | +--------+ + + + + | 08/14/ | Abstract | [facility] | Lauryn Zhu, MOLECULAR PATHOLOGIST | | | 2019 | | [facility] | [address] | | | | | Swallowing at [facility] | [address] | | | | | [address] | [place] [address] | | | | | [facility] | [phone] | | | | | and Healing, | | | | | | | | | | | | Floor [place], [place] | | | | | | [address] | | | | | | [phone] | | | +--------+ + + + [...] | | 2019 | Visit | | [address] | | | | | | [place], | | | | | | [place] [address] | | | | | | [phone] | | | | | | | | +--------+---------+ + + + | 04/30/ | Office | Otolaryngology | An, Augustine | | | 2020 | Visit | | MD Debbie [address] | | | | | | [address] | | | | | | [place] | | | | | | [address] | | | | | | [phone] | | | | | | | | +--------+---------+ + + + documented as of this encounter Visit Diagnoses Not on filedocumented in this encounter
--- OUTSIDE RECORDS SUMMARY | ~2020-03-30 | XMS | Clinical Summary ---
Demographics + + + | Address | [address] | | | [place] [address] | + + + | Home Phone [...] Author + + + | Author | [facility] | + + + | Organization | [facility] | + + + | Address | Unknown | + + + | Phone | Unavailable | + + + Support + + +---------+ + | Name | Relationship | Address | Phone | + + +---------+ + | Laura Allred | ECON | Unknown | | + + +---------+ + Care Team Providers + +------+ + | Care Obstetrician Gynecologist Name | Role | Phone | + +------+ + | Lauryn Stuart | PCP | | + +------+ + Source Comments [facility] both [facility] and [facility] Allergies + + + + + + | Active Allergy | Reactions | Severity | Noted | Comments | | | | | Date | | + + + + + + | Ketorolac | Anaphylaxis | High | 05/15/20 | | | | | | 12 | | + + + + + + | Latex | Rash | Low | 08/17/20 | | | | | | 16 | | + + + + + + Medications + + + +---------+------+------+-------+ | Medication | Sig | Dispensed | Refills | Star | End | Statu | | | | | | t | Date | s | | | | | | Date | | | + + + +---------+------+------+-------+ | ALPRAZolam 0.25 mg | Take 0.25 mg by | | 3 | 03/2 | | Activ | | oral tablet | mouth once daily at | | | 0/20 | | e | | | bedtime as needed. | | | 19 | | | + + + +---------+------+------+-------+ | buPROPion XL 300 | Take 300 mg by mouth | | 0 | 03/0 | | Activ | | mg oral tablet | once daily. | | | 5/20 | | e | | extended release 24 | | | | 19 | | | | hr | | | | | | | + + + +---------+------+------+-------+ | doxycycline | Take 100 mg by mouth | | 0 | 12/2 | | Activ | | hyclate 100 mg oral | once daily. | | | 05/09 | | e | | capsuleIndications: | Indications: skin | | | 16 | | | | dermatologic | infection | | | | | | + + + +---------+------+------+-------+ | estradiol 2 mg | Take 2 mg by mouth | | 0 | 03/0 | | Activ | | oral tablet | once daily. | | | 01/06 | | e | | | | | | 19 | | | + + + +---------+------+------+-------+ | lansoprazole 30 mg | Take 30 mg by mouth | | 0 | 03/0 | | Activ | | oral | once daily. | | | 01/06 | | e | | capsule,delayed | | | | 19 | | | | release(DR/EC) | | | | | | | + + + +---------+------+------+-------+ | cilostazol 50 mg | Take 1 tablet by | | 0 | 03/2 | | Activ | | oral tablet | mouth two times | | | 01/06 | | e | | | daily. | | | 19 | | | + + + +---------+------+------+-------+ | cyanocobalamin | Take 2,500 mcg by | | 0 | | | Activ | | (vitamin B-12) 2,500 | mouth once daily. | | | | | e | | mcg oral tablet | | | | | | | + + + +---------+------+------+-------+ | Lactobacillus | Take 1 capsule by | | 0 | | | Activ | | acidophilus | mouth once daily. | | | | | e | | (PROBIOTIC | | | | | | | | ACIDOPHILUS ORAL) | | | | | | | + + + +---------+------+------+-------+ | senna-docusate | Take 1 tablet by | | 0 | 04/2 | | Activ | | 8.6-50 mg oral | mouth twice daily as | | | 6/20 | | e | | tabletIndications: | needed for | | | 19 | | | | constipation | constipation. | | | | | | | | Indications: | | | | | | | | constipation | | | | | | + + + +---------+------+------+-------+ +---+ + | | Additional | | | InformationPatient | | | taking differently: | | | 1 tablet oral AT | | | BEDTIME, | | | Indications: | | | constipation, | | | Reason: See Comments | | | (patient | | | preference), | | | Reported on | | | 10/08/2019 11:35 AM | +---+ + + + +---+---+------+---+-------+ | acetaminophen 325 | Take 1-2 tablets by | | 0 | 04/2 | | Activ | | mg oral | mouth every six | | | 03/08 | | e | | tabletIndications: | hours as needed. | | | 19 | | | | fever, pain | Indications: fever, | | | | | | | | Pain | | | | | | + + +---+---+------+---+-------+ +---+ + | | Additional | | | InformationPatient | | | taking differently: | | | 650 mg oral | | | NEEDED, Indications: | | | fever, pain, | | | Reason: See Comments | | | (patient | | | preference), | | | Reported on | | | 10/08/2019 11:35 AM | +---+ + + + +--------+---+------+---+-------+ | | Take 0.5 tablets by | 14 | 0 | 04/2 | | Activ | | triamterene-hydrochl | mouth once daily. | tablet | | 03/08 | | e | | orothiazide 37.5-25 | Indications: high | | | 19 | | | | mg oral | blood pressure | | | | | | | tabletIndications: | | | | | | | | hypertension | | | | | | | + + +--------+---+------+---+-------+ +---+ + | | Additional | | | InformationPatient | | | taking differently: | | | 1 tablet oral DAILY | | | NEEDED, | | | Indications: | | | hypertension, | | | Reason: Provider | | | Instructions, | | | Reported on | | | 10/09/2019 12:48 PM | +---+ + + + +--------+---+------+---+-------+ | nicotine | Take 2 mg by mouth | | 0 | | | Activ | | polacrilex 2 mg | as needed. Chew | | | | | e | | buccal gum | slowly | | | | | | + + +--------+---+------+---+-------+ | fentaNYL 50 mcg/hr | Apply 1 patch to | | 0 | 02/1 | | Activ | | transdermal patch | skin every | | | 11/06 | | e | | | seventy-two hours. | | | 20 | | | | | Please remove old | | | | | | | | patch prior to | | | | | | | | placing a new one. | | | | | | + + +--------+---+------+---+-------+ | | Take 2 tablets by | | 0 | | | Activ | | HYDROcodone-acetamin | mouth three times | | | | | e | | ophen 7.5-325 mg | daily. | | | | | | | oral tablet | | | | | | | + + +--------+---+------+---+-------+ | acyclovir 400 mg | Take 400 mg by mouth | | 0 | 12/2 | | Activ | | oral tablet | once daily. | | | 0/20 | | e | | | | | | 19 | | | + + +--------+---+------+---+-------+ | levothyroxine 50 | Take 50 mcg by mouth | | 0 | | | Activ | | mcg oral tablet | before breakfast. | | | | | e | + + +--------+---+------+---+-------+ | arginine 500 mg | Take 1,000 mg by | | 0 | | | Activ | | oral tablet | mouth once daily | | | | | e | | | with dinner. | | | | | | + + +--------+---+------+---+-------+ | | Take 1 tablet by | | 0 | | | Activ | | beta-carotene(A)-vit | mouth once daily | | | | | e | | s C,E/mins (MACUVITE | with dinner. | | | | | | | ORAL) | | | | | | | + + +--------+---+------+---+-------+ | | Take 1 tablet by | | 0 | | | Activ | | multivit-min/iron/fo | mouth once daily | | | | | e | | [id number] (HAIR, | with dinner. | | | | | | | SKIN AND NAILS | | | | | | | | ADVANCED ORAL) | | | | | | | + + +--------+---+------+---+-------+ | oxyCODONE | Take 1-3 tablets by | 90 | 0 | 02/2 | | Activ | | (immediate release) | mouth every four | tablet | | /20 | | e | | 5 mg oral | hours as needed for | | | 20 | | | | tabletIndications: | moderate pain or | | | | | | | Paralysis of left | severe pain | | | | | | | vocal fold | (unresponsive to | | | | | | | | non-opioid | | | | | | | | medication). | | | | | | + + +--------+---+------+---+-------+ Active Problems + + + | Problem | Noted Date | + + + | Dysphonia | 09/15/2019 | + + + | Hypophosphatemia | 12/08/2018 | + + + + + | Last Assessment & Plan: Profound hypophosphatemia after TF | | started concerning for refeeding syndrome- Ok to restart feeds- | | Check lytes q12h | + + + + + | Acute respiratory distress syndrome (ARDS) | 12/07/2018 | + + + | Paralysis of left vocal fold | 12/07/2018 | + + + + + | Last Assessment & Plan: Due to resection of L recurrant | | laryngeal nerve during surgery because of location to lymph node. | | ENT evaluated on 12/05- ENT will re-evaluate airway early next | | week."- If voice, breathing, or swallowing are worse, will plan | | for injection medialization thyroplasty of the left true vocal | | fold, otherwise we will continue to observe - | | Injection laryngoplasty can be done in our clinic with Dr. Kaplan | | next week as an inpatient if transportation is arranged | | - If patient is discharged at an earlier date, this can also be | | done during an outpatient visit"-[facility] recs this week-Per | | Thoracic fellow ok to rechallenge swallow if ok from ICU's | | perspective | + + + + + | Aspiration pneumonitis | 12/06/2018 | + + + + + | Last Assessment & Plan: Increasing oxygen requirements | | overnight from 12/05 to 12/06 with worsening ground glass opacities | | in right lung with concern for aspiration in setting of | | dysphagia.- Strict NPO, consider re consulting [facility] [employer] today pending | | course and ENT recs- monitor for fevers and worsening respiratory | | status- pulmonary toilet, IS- wean O2 as able | + + + + + | Leukocytosis | 12/06/2018 | + + + + + | Last Assessment & Plan: Suspect secondary to aspiration | | pneumonitis. Improving- Consider antibiotics if patient develops | | fever | + + + + + | GERD (gastroesophageal reflux disease) | 12/04/2018 | + + + + + | Last Assessment & Plan: - omeprazole daily | + + + + + | Hypothyroidism | 12/04/2018 | + + + + + | Last Assessment & Plan: - levothyroxine 50 mcg PFT daily | + + + + + | Acute post-operative pain | 12/04/2018 | + + + + + | Last Assessment & Plan: Epidural not placed pre-op because of | | staged approach to procedure. Pt received heparin during | | procedure because of PA involvement. APS placed epidural 4 hrs | | after heparin.- TEA per APS w bupivicaine/HM (changed from | | fentanyl)- tylenol PRN - Lidocaine patches | + + + + + | Dysphagia due to vocal cord paralysis | 12/04/2018 | + + + + + | Last Assessment & Plan: S/p sacrifice of L recurrant | | laryngeal nerve with node resection now w concern for aspiration | | event. PEG placed on 12/07- Strict NPO- ENT performed TREAD CUTTER scope | | with evidence of left vocal cord dysfunctionPer ENT: Injection | | laryngoplasty can be done in our clinic with Dr. Kaplan next week | | as an inpatient if transportation is arranged. If patient is | | discharged at an earlier date, this can also be done during an | | outpatient visit- Restart TF's now that lytes are optimized to | | goal of 55/hr | + + + + + | Postoperative anemia due to acute blood loss | 12/04/2018 | + + + + + | Last Assessment & Plan: - monitor chest tube output | | - CBC daily | + + + + + | Chronic pain | 12/04/2018 | + + + | NSCLC, s/p L upper lobectomy | 12/04/2018 | + + + + + | Last Assessment & Plan: S/p Flexible bronchoscopy, | | endobronchial ultrasound needle aspiration biopsy level 7 and 4 | | L, cervical mediastinoscopy, biopsy of level 7 and 4R lymph | | nodes, left thoracoscopy, left muscle-sparing thoracotomy, left | | upper lobectomy with sleeve resection of airway and pulmonary | | artery with pulmonary artery plasty with pericardial patch, | | mediastinal lymph node dissections level 5, 6, 7, 9, L, 4L and | | hilar lymph nodes on 12/04- continue home Qvar- chest tube to | | water seal, monitor output- lovenox ppx- daily CXR | + + + + + | HTN (hypertension) | 12/04/2018 | + + + + + | Last Assessment & Plan: - Continue home triamterene/HCTZ | + + Resolved Problems + + + + | Problem | Noted | Resolved | | | Date | Date | + + + + | Acute hypokalemia | 12/09/19 | | | | 19 | 9 | + + + + + + | Last Assessment & Plan: K 2.9 this am with concern for | | refeeding syndrome - 30 mmol kphos replacement - repeat K in 4 | | hrs | + + + + + + | Hypotension | 12/06/19 | | | | 19 | 9 | + + + + + + | Last Assessment & Plan: Hypotension overnight 12/04 worsening | | after epidural placed. Initially switched to sufentanil. Bedside | | echo with evidence of hypovolemia, no tamponade physiology. Fluid | | responsive. Now improving and off phenylephrine.- Continue to | | monitor | + + + + + + | Hyperglycemia | 12/06/19 | | | | 19 | 9 | + + + + + + | Last Assessment & Plan: - Continue SSI | + + Family History + + +------+ + | Medical History | Relation | Name | Comments | + + +------+ + | No Known Problems | Father | | | + + +------+ + | No Known Problems | Mother | | | + + +------+ + | Cancer | Neg Hx | | | + + +------+ + | Movement Disorder | Neg Hx | | | + + +------+ + | Thyroid disease | Neg Hx | | | + + +------+ + + +------+--------+ + | Relation | Name | Status | Comments | + +------+--------+ + | Father | | | | + +------+--------+ + | Mother | | | | + +------+--------+ + Social History + + + +--------+------+ [...] recent travel history available. | + + Last Filed Vital Signs + + + [...] | | + + + + + Plan of Treatment +--------+---------+ + + + | Date | Type | Specialty | Care Team | Description | +--------+---------+ + + + | 04/30/ | Office | Speech Therapy | Barbra Ramirez SLP | | | 2019 | Visit | | [address] | | | | | | [place], | | | | | | [place] [address] | | | | | | [phone] | | | | | | | | +--------+---------+ + + + | 04/30/ | Office | Otolaryngology | Augustine Nolan | | | 2020 | Visit | | MD Debbie [address] | | | | | | [address] | | | | | | [place], [place] | | | | | | [address] | | | | | | [phone] | | | | | | | | +--------+---------+ + + + + + + + + | Health Maintenance | Due Date | Last Done | Comments | + + + + + | Pneumococcal | | | | | vaccination (1 of 2 | 6 | | | | - PCV13) | | | | + + + + + | Influenza (Flu) | | 10/11/2019, 06/02/2018, | | | vaccination (#1) | 0 | 07/02/2017, Additional history | | | | | exists | | + + + + + Implants + +------+--------+ +--------+--------+--------+ | Implanted | Type | Area | Manufacture | Device | Shelf | Model | | | | | r | | Expira | / | | | | | | Identi | tion | Serial | | | | | | fier | Date | / Lot | + +------+--------+ +--------+--------+--------+ | Patch Cardiovascular 8x6cm | | Left: | SYNOVIS | | 04/10/ | [id number] | | Marly-Guard Bovine Pericardium | | Chest | | | 2022 | NBIO / | | [employer]on Process Sterile | | | | | | | | Disposable - | | | | | | /[id number] | | [id number]: Qty: 1 on | | | | | | 26-135 | | 12/04/2018 by Stacy, | | | | | | 6437 | | MD Manoj at [facility] | | | | | | | | REV LOC | | | | | | | + +------+--------+ +--------+--------+--------+ + + | Description:Rinsed in 0.9% | | NaCl lot [id number] Aug 2021 | + + + +---+--------+------+---+--------+--------+ | [employer]ovascular | | Left: | BARD | | 09/16/ | [id number] | | in Bard Thk1.65mm | | Chest | | | 2022 | / | | Rectangle Ptfe Holland Sterile - | | | | | | /[id number] | | [id number]: Qty: 1 | | | | | | 623 | | on 12/04/2018 by Stacy, | | | | | | | | MD Manoj at [facility] | | | | | | | | REV LOC | | | | | | | + +---+--------+------+---+--------+--------+ Results Not on filefrom Last 3 Months Insurance + +--------+ +--------+-------+---------+------+ | Payer | Benefi | Subscriber | Effect | Phone | Address | Type | | | t Plan | ID | david | | | | | | / | | Dates | | | | | | Group | | | | | | + +--------+ +--------+-------+---------+------+ | AETNA DIRECT | AETNA | [phone] | 08/20/19 | | | PPO | | | DIRECT | | 19-Pre | | | | | | | | sent | | | | + +--------+ +--------+-------+---------+------+ + +--------+ +--------+ + + | Guarantor Name | Accoun | Relation to | Date | Phone | Billing Address | | | t Type | Patient | of | | | | | | | | | | + +--------+ +--------+ + + | Sussy Allred | Person | Self [birth year] | [address] | | | al/Fam | | 1950 | [phone] | [place] [address] | | | johnson | | | 7 (Home) | | + +--------+ +--------+ + + Advance Directives + + + + + | Code Status | Date | Date | Comments | | | Activated | Inactivated | | + + + + + | Full Code | 10/09/2019 | 10/10/2019 | | | | 6:03 AM | 7:56 PM | | + + + + + + + + +---+ | | | | | + + + +---+ | Full Code | 12/04/2018 | 12/14/2018 | | | | 6:13 AM | 6:19 PM | | + + + +---+
--- OUTSIDE RECORDS SUMMARY | ~2020-03-30 | XMS | Encounter Summary ---
Demographics + + + | Address | [address] | | | [place] [address] | + + + | Home Phone | | + + + | Preferred Language | Unknown | + + + | Marital Status | Single | + + + | Quaker Affiliation | Unknown | + + + | Race | Unknown | + + + | Ethnic Group | Unknown | + + + Author + + + | Author | [facility] | | | and Jakobana | + + + | Organization | [facility] | | | and Jakobana | [...] Providers + +------+ + | Care Automatic Data Processing Planner Name | Role | Phone | + [...] neoplasm of | Boubacar Daniels, | W [place] | | | | | unspecified | MD [address] | [place], | | | | | part of | [place] | [place] [address] | | | | | unspecified | [address] | Phone: | | | | | bronchus or | [place], | [phone] | | | | | lung (HCC) | [place] [address] | Fax: | | | | | Procedures | Phone: | [phone] | | | | | RI VITAMIN | [phone] | | | | | | B12 | Fax: | | | | | | INJECTION, | [phone] | | | | | | [address] | | | | | | | ONDANSETRON | | | | | | | ORAL RI | | | | | | | ORAL | | | | | | | DEXAMETHASON | | | | | | | E, .25 MG | | | | | | | RI INJ., | | | | | | | APREPITANT, | | | | | | | 1 MG RI | | | | | | | PEMETREXED | | | | | | | INJECTION, | | | | | | | 10 MG RI | | | | | | | CARBOPLATIN | | | | | | | INJECTION, | | | | | | | 50 MG RI | | | | | | | ADRENALIN | | | | | | | EPINEPHRINE | | | | | | | INJECT, .1 | | | | | | | MG RI | | | | | | | DIPHENHYDRAM | | | | | | | INE HCL | | | | | | | INJECTIO, 50 | | | | | | | MG RI | | | | | | | METHYLPREDNI | | | | | | | SOLONE | | | | | | | INJECTION, | | | | | | | 125 MG RI | | | | | | | ALBUTEROL | | | | | | | COMP CON, 1 | | | | | | | MG RI | | | | | | | ALBUTEROL | | | | | | | NON-COMP | | | | | | | CON, 1 MG | | | | | | | RI | | | | | | | INJECTION, | | | | | | | FAMOTIDINE, | | | | | | | 20 MG RI | | | | | | | NORMAL | | | | | | | SALINE | | | | | | | SOLUTION | | | | | | | INFUS, 500 | | | | | | | ML RI | | | | | | | NORMAL | | | | | | | SALINE | | | | | | | SOLUTION | | | | | | | INFUS, 250 | | | | | | | ML RI | | | | | | | STERILE | | | | | | | WATER/SALINE | | | | | | | , 10 ML RI | | | | | | | CHEMOTHER, | | | | | | | IV PUSH,EA | | | | | | | ADD DRUG RI | | | | | | | CHEMOTHER, | | | | | | | IV INFUSION, | | | | | | | 1 HR RI | | | | | | | CHEMOTHER, | | | | | | | IV INFUSION, | | | | | | | EA HR RI | | | | | | | CHEMOTHER,NO | | | | | | | N-HORMONE | | | | | | | ANTI-NEOPL, | | | | | | | SUB-Q/IM RI | | | | | | | CHEMOTHER | | | | | | | HORMON | | | | | | | ANTINEOPL | | | | | | | SUB-Q/IM RI | | | | | | | | | | | | | | PALONOSETRON | | | | | | | HCL, 25 MCG | | | +--------+--------+ + + + + Encounter Details +--------+ + + + + | Date | Type | Department | Care Team | Description | +--------+ + + + + | 03/20/ | Hospital | [facility] | Fiona Anne | Malignant neoplasm | | 2019 | Encounter | [facility] | MD Issa [address] | of upper lobe of | | | | INFUSION [address] [place], [place] | left lung (HCC) | | | | [place], | [address] | (Primary Dx) | | | | [place] [address] | | | | | | [phone] | | | +--------+ + + + [...] encounter Progress Notes Bailee Walker RN - 03/20/2019 1:21 PM PDTPatient finished with treatment today, mavis es any questions or concerns. Tolerated injection well. AVS provided with follow up appointm ents. Discharged to radiation oncology in stable condition, denies any issues. Electronicall y signed by Bailee Walker RN at 03/20/2019 1:26 PM PDTdocumented in this encounter Miscellaneous Notes Treatment Plan - Hellen Barron RN - 03/20/2019 10:47 AM PDTViewed chart for weight, vital signs and lab results. Also viewed chart for completion of medication and allergy rev iew prior to treatment. Hellen Barron RNDATE/TIME: 03/20/2019 10:47 documented in thi s encounter Plan of Treatment +--------+ + + + + | Date | Type | Specialty | Care Team | Description | +--------+ + + + + | 04/20/ | Appointment | Radiation Oncology | Rootvik, Treva | | | 2019 | | | DEISY Hernandez [address] | | | | | | [address] [place] | | | | | | [place] [address] | | | | | | [phone] | | | | | | | | +--------+ + + + + documented as of this encounter Visit Diagnoses + + | Diagnosis | + + | Malignant neoplasm of upper lobe of left lung (HCC) - Primary | + + documented in this encounter Administered Medications + +--------+ +--------+------+------+ | Medication Order | MAR | Action | Dose | Rate | Site | | | Action | Date | | | | + +--------+ +--------+------+------+ | aprepitant (CINVANTI) injection | Given | 03/20/20 | 130 mg | | | | 130 mg 130 mg, IV Push, ONCE, | | 19 10:53 | | | | | [facility] 03/20/19 at 1045, For 1 dose, | | AM PDT | | | | | Administer 30 minutes prior to | | | | | | | chemotherapy. Administer slowly | | | | | | | over 2 minutes, | | | | | | + +--------+ +--------+------+------+ +---+---+ | | | +---+---+ + +---------+ + +--------+---+ | CARBOplatin (PARAPLATIN) 422.5 | New Bag | 03/20/20 | 422.5 mg | 542.3 | | | mg in sodium chloride 0.9% 500 mL | | 19 11:11 | | mL/hr | | | infusion 422.5 mg (Target AUC = | | AM PDT | | | | | 5), Intravenous, Administer over | | | | | | | 60 Minutes, ONCE, [facility] 03/20/19 at | | | | | | | 1100, For 1 dose, Chemotherapy: | | | | | | | Use appropriate handling | | | | | | | precautions., | | | | | | + +---------+ + +--------+---+ +---+---+ | | | +---+---+ + +-------+ +--------+---+ + | cyanocobalamin (VITAMIN B-12) | Given | 03/20/20 | 1,000 | | Deltoid- | | injection 1,000 mcg 1,000 mcg, | | 19 1:20 | mcg | | Left | | Intramuscular, ONCE, [facility] 03/20/19 | | PM PDT | | | | | at 1300, For 1 dose | | | | | | + +-------+ +--------+---+ + +---+---+ | | | +---+---+ + +-------+ +------+---+---+ | dexamethasone (DECADRON) tablet | Given | 03/20/20 | 4 mg | | | | 4 mg 4 mg, Oral, ONCE, [facility] | | 19 10:42 | | | | | 03/20/19 at 1045, For 1 dose, | | AM PDT | | | | | Administer 30 minutes prior to | | | | | | | chemotherapy., | | | | | | + +-------+ +------+---+---+ +---+---+ | | | +---+---+ + +-------+ +------+---+---+ | LORazepam (ATIVAN) injection | Given | 03/20/20 | 1 mg | | | | 0.5-1 mg 0.5-1 mg, Intravenous, | | 19 10:49 | | | | | EVERY 6 HOURS PRN, Anxiety, | | AM PDT | | | | | nausea, Starting [facility] 03/20/19 at | | | | | | | 1021 | | | | | | + +-------+ +------+---+---+ +---+---+ | | | +---+---+ + +-------+ +---------+---+---+ | palonosetron (ALOXI) injection | Given | 03/20/20 | 0.25 mg | | | | 0.25 mg 0.25 mg, Intravenous, | | 19 10:48 | | | | | ONCE, [facility] 03/20/19 at 1045, For 1 | | AM PDT | | | | | dose, Give IV push over 30 | | | | | | | seconds. Flush with saline before | | | | | | | and after giving. Administer 30 | | | | | | | minutes prior to chemotherapy. | | | | | | | (This product is restricted to | | | | | | | outpatient use only. For | | | | | | | inpatients please use | | | | | | | (ondansetron). If there are | | | | | | | clinical circumstances that | | | | | | | necessitate inpatient use of | | | | | | | (palonosetron), please contact | | | | | | | pharmacy.), | | | | | | + +-------+ +---------+---+---+ +---+---+ | | | +---+---+ + +---------+ +--------+-------+---+ | PEMEtrexed (ALIMTA) 800 mg in | New Bag | 03/20/20 | 800 mg | 600 | | | sodium chloride 0.9% 100 mL | | 19 12:21 | | mL/hr | | | infusion 800 mg (rounded from | | PM PDT | | | | | 785 mg = 500 mg/m2 | | | | | | | 1.57 m2 Treatment plan recorded | | | | | | | BSA), Intravenous, Administer | | | | | | | over 10 Minutes, ONCE, [facility] 03/20/19 | | | | | | | at 1221, For 1 dose, | | | | | | | Chemotherapy: Use appropriate | | | | | | | handling precautions., | | | | | | + +---------+ +--------+-------+---+ +---+---+ | | | +---+---+ documented in this encounter"
--- OUTSIDE RECORDS SUMMARY | ~2020-03-30 | XMS | Encounter Summary ---
Demographics + + + | Address | [address] | | | [place] [address] | + + + | Home Phone | | + + + | Preferred Language | Unknown | + + + | Marital Status | Single | + + + | Alevism Affiliation | Unknown | + + + | Race | Unknown | + + + | Ethnic Group | Unknown | + + + Author + + + | Author | [facility] | | | and Jakobana | + + + | Organization | [facility] | | | and Jakobana [...] Team Providers + +------+ + | Care Hair Boiler Name | Role | Phone | + +------+ + | Lauryn Stuart PA-C | PCP | | + +------+ + Reason for Visit + +--------+ + | Reason | Onset | Comments | | | Date | | + +--------+ + | Medication Refill | 06/11/ | | | | 2019 | | + +--------+ + Encounter Details +--------+--------+ + + + | Date | Type | Department | Care Team | Description | +--------+--------+ + + + | 06/11/ | Refill | [facility] | Adolfo, | Medication Refill | | 2019 | | MED [facility] | Boubacar Daniels MD [address] | | | | | ONCOLOGY CLINIC [address] | [address] [facility] | | | | | [address] | [address], [place] | | | | | [place] [address] | [id number] | | | | | [phone] | | | +--------+--------+ + + + [...] | | | | | | [facility] | | | | | | [place] [address] | | | | | | [phone] | | | | | | | | +--------+ + + + + documented as of this encounter Visit Diagnoses + + | Diagnosis | + + | Malignant neoplasm of hilus of lung, unspecified laterality (HCC) - Primary | + + documented in this encounter"
--- OUTSIDE RECORDS SUMMARY | ~2020-03-30 | XMS | Encounter Summary ---
Demographics + + + | Address | [address] | | | [place] [address] | + + + | Home Phone | | + + + | Preferred Language | Unknown | + + + | Marital Status | Single | + + + | Caodaism Affiliation | Unknown | + + + | Race | Unknown | + + + | Ethnic Group | Unknown | + + + Author + + + | Author | [facility] | | | and Jakobana | + + + | Organization | [facility] | | | and Jakobana [...] Team Providers + +------+ + | Care Force Dispatcher Name | Role | Phone | + +------+ + | Lauryn Stuart PA-C | PCP | | + +------+ + Encounter Details +--------+ + + + + | Date | Type | Department | Care Team | Description | +--------+ + + + + | 04/01/ | [facility] | [facility] | Adolfo, | Malignant neoplasm | | 2019 | Encounter | MED CTR CHEMO | Boubacar Daniels MD [address] | of upper lobe of | | | | [address] | left lung (HCC) | | | | [place], | [address] [place], [place] | (Primary Dx) | | | | [place] [address] | [address] | | | | | [phone] | | | +--------+ + + + [...] + + + | Blood Pressure | 130/61 | 04/01/2019 3:14 PM | | | | | PDT | | + + + + + | Pulse | 65 | 04/01/2019 3:14 PM | | | | | PDT | | + + + + + | Temperature | 36.7 C (98.1 F) | 04/01/2019 3:14 PM | | | | | PDT | | + + + + + | Respiratory Rate | 16 | 04/01/2019 3:14 PM | | | | | PDT | | + + + + + | Oxygen Saturation | 96% | 04/01/2019 3:14 PM | | | | | PDT [...] tablet by | 120 | 1 | 08/12/20 | | | (CARAFATE) 1 g | [...] encounter Progress Notes Vee Anderson RN - 04/01/2019 3:23 PM PDTPatient discharged in satisfactory condit ion. Discharged ambulatory. With friend. To home. Verified that patient has antinausea medications at home. Future appointments and After Visit Summary (AVS) provided. Sonam Mcfarlane RN - 04/01/2019 1:54 PM PDTJudy is here for IV fluids and pain meds. She is feeling much better today. She did have trouble getting the pain medication ordered for her by Dr. Fritz and Adolfo. Prior authorizatio n was needed. She hopes to get it all done today. documented in this encounter Plan of Treatment [...] [address] | | | | | | [place] [address] | | | | | | [phone] | | | | | | | [...] heparin 100 units/mL flush | Given | 04/01/20 | 500 | | | | injection 500 Units 500 Units (5 | | 19 3:18 | Units | | | | mL), Intracatheter, PRN, Line | | PM PDT | | | | | Care, Starting 04/01/19 at | | | | | | | 1120 | | | | | | + +--------+ +-------+------+------+ +---+---+ | | | +---+---+ + +-------+ +--------+---+---+ | HYDROmorphone (DILAUDID) | Given | 04/01/20 | 0.8 mg | | | | injection 0.4-0.8 mg 0.4-0.8 mg, | | 19 1:47 | | | | | Intravenous, EVERY 1 HOUR PRN, | | PM PDT | | | | | Pain, Starting 04/01/19 at | | | | | | | 1120 | | | | | | + +-------+ +--------+---+---+ +---+---+ | | | +---+---+ + +---------+ +---+-------+---+ | sodium chloride 0.9% (NS) | New Bag | 04/01/20 | | 500 | | | infusion at 500 mL/hr, | | 19 1:48 | | mL/hr | | | Intravenous, CONTINUOUS, Starting | | PM PDT | | | | | 04/01/19 at 1340, 1000 cc ns | | | | | | | iv over 2 hours., | | | | | | + +---------+ +---+-------+---+ +---+---+ | | | +---+---+ documented in this encounter"
--- OUTSIDE RECORDS SUMMARY | ~2020-03-30 | XMS | Encounter Summary ---
Demographics + + + | Address | [address] | | | [place] [address] | + + + | Home Phone | | + + + | Preferred Language | Unknown | + + + | Marital Status | Single | + + + | Taoism Affiliation | NRP | + + + | Race | White | + + + | Ethnic Group | Not or | + + + Author + + + | Author | [facility] | + + + | Organization | [facility] | + + + | Address | Unknown | + + + | Phone | Unavailable | + + + Support + + +---------+ + | Name | Relationship | Address | Phone | + + +---------+ + | Laura Allred | ECON | Unknown | | + + +---------+ + Care Team Providers + +------+ + | Care Municipal Court Judge Name | Role | Phone | + +------+ + | Lauryn Stuart | PCP | | + +------+ + Reason for Referral Consultation (Routine) + +--------+ + + + + | Status | Reason | Specialty | Diagnoses / | Referred By | Referred To | | | | | Procedures | Contact | Contact | + +--------+ + + + + | Authorized | | Trauma Center | Diagnoses | Nolan, | Tra Emerg | | | | | Encounter | Heladio Roman, | [facility] | | | | | for care | [address] | [address] | | | | | related to | [address] | | | | | feeding tube | [address] | Physicians | | | | | Procedures | Rd | [address], [address]nd | | | | | CONSULT TO | [place], [place] | Floor | | | | | SURGERY - | [address] | [place], [place] | | | | | (EGS)EMERGEN | Phone: | [phone] | | | | | CY GENERAL | [phone] | Phone: | | | | | SURGERY | Fax: | [phone] | | | | | | [phone] | Fax: | | | | | | | [phone] | + +--------+ + + + + Consultation (Routine) +--------+--------+ + + + + | Status | Reason | Specialty | Diagnoses / | Referred By | Referred To | | | | | Procedures | Contact | Contact | +--------+--------+ + + + + | Closed | | Radiation | Diagnoses | Nolan, | Chon, | | | | Oncology | Malignant | Heladio Roman, | Deven Kothari MD | | | | | neoplasm of | PA-C [address] | | | | | lung, | [address] | [address] | | | | | unspecified | [address] | Rd | | | | | laterality, | Rd | [place], [place] | | | | | unspecified | [place] | [address] | | | | | part of lung | [address] | Phone: | | | | | (HCC) | Phone: | [phone] | | | | | Procedures | [phone] | Fax: | | | | | CONSULT TO | Fax: | [phone] | | | | | RADIATION | [phone] | | | | | | ONCOLOGY | | | +--------+--------+ + + + + Encounter Details +--------+ + + + + | Date | Type | Department | Care Team | Description | +--------+ + + + + | 12/24/ | Pathology Collector | Cardiothoracic | Heladio Francisco, | Malignant neoplasm | | 2019 | | Surgery at [facility] [address] | PA-C [address] | of lung, unspecified | | | | [address] | [address] | laterality, | | | | Physician's | [place], [place] | unspecified part of | | | | Pavilion, 2nd floor | [address] | lung (HCC) (Primary | | | | [place], [place] | [phone] | Dx); Encounter for | | | | [address] | | care related to | | | | [phone] | | feeding tube | +--------+ + + + + Social [...] 04/30/ | Office | Speech Therapy | Barbar Ramirez SLP | | | 2020 | Visit | | [address] | | | | | | [address] [place], | | | | | | [place] [address] | | | | | | [phone] | | | | | | | | +--------+---------+ + + + | 04/30/ | Office | Otolaryngology | Augustine Nolan | | | 2019 | Visit | | MD Debbie [address] [facility] | | | | | | [address] | | | | | | [place], [place] | | | | | | [address] | | | | | | [phone] | | | | | | | | +--------+---------+ + + + documented as of this encounter Visit Diagnoses + + | Diagnosis | + + | Malignant neoplasm of lung, unspecified laterality, unspecified part of lung (HCC) - | | Primary | + + | Encounter for care related to feeding tube Fitting and adjustment of other | | gastrointestinal appliance and device | + + documented in this encounter
--- OUTSIDE RECORDS SUMMARY | ~2020-03-30 | XMS | Encounter Summary ---
Demographics + + + | Address | [address] | | | [place] [address] | + + + | Home Phone | | + + + | Preferred Language | Unknown | + + + | Marital Status | Single | + + + | Sabianist Affiliation | Unknown | + + + | Race | Unknown | + + + | Ethnic Group | Unknown | + + + Author + + + | Author | [facility] | | | and Jakobana | + + + | Organization | [facility] | | | and Jakobana [...] Providers + +------+ + | Care Director Business Integration Name | Role | Phone | + +------+ + | Lauryn Stuart PA-C | PCP | | + +------+ + Reason for Visit + +--------+ + | Reason | Onset | Comments | | | Date | | + +--------+ + | Medication Refill | 04/10/ | | | | 2019 | | + +--------+ + Encounter Details +--------+--------+ + + + | Date | Type | Department | Care Team | Description | +--------+--------+ + + + | 04/10/ | Refill | [facility] | Adolfo, | Medication Refill | | 2019 | | MED [facility] | Boubacar Daniels MD [address] | | | | | ONCOLOGY CLINIC [address] | [address] [facility] | | | | | [address] | [address] [place], [place] | | | | | [place] [address] | [id number] | | | | | [phone] | | | +--------+--------+ + + + [...] | | | | | [place] [address] | | | | | | [phone] | | | | | | | | +--------+ + + + + documented as of this encounter Visit Diagnoses + + | Diagnosis | + + | 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
--- OUTSIDE RECORDS SUMMARY | ~2020-03-30 | XMS | Encounter Summary ---
Demographics + + + | Address | [address] | | | [place] [address] | + + + | Home Phone | | + + + | Preferred Language | Unknown | + + + | Marital Status | Single | + + + | Jewish Affiliation | NRP | + + + | Race | White | + + + | Ethnic Group | Not or | + + + Author + + + | Author | [facility] | + + + | Organization | [facility] | + + + | Address | Unknown | + + + | Phone | Unavailable | + + + Support + + +---------+ + | Name | Relationship | Address | Phone | + + +---------+ + | Laura Allred | ECON | Unknown | | + + +---------+ + Care Team Providers + +------+ + | Care Wire Lather Name | Role | Phone | + [...] +--------+--------+ + + + + Encounter Details +--------+---------+ + + + | Date | Type | Department | Care Team | Description | +--------+---------+ + + + | 12/04/ | Surgery | 6A Intra Op 3181 | Manoj Kumar MD | FLEXIBLE | | 2019 | | [facility] | [address] [facility] | BRONCHOSCOPY, | | | | Rd [facility] | [facility] | ENDOBRONCHIAL | | | | Hospital Admitting | [place], [place] | ULTRASOUND GUIDED | | | | Desk Located on the | [address] | LYMPH NODE BIOPSIES, | | | | 9th floor | [phone] | MEDIASTINOSCOPY; | | | | [place], [place] | | | | | | [address] | | | +--------+---------+ + + + Social History + + [...] procedure, appropriate chest drains were placed, the nellie ient was extubated, and transferred to the post-anesthesia care unit. Once recovered, the mallika card was transferred to the post-operative ICU, where [...] and a PEG tube was placed. ENT Karen nguyen followed the patient during her hospitalization, and [...] Discharge Medications: Sussy Allred Home Medication Instructions ABRAHAN:[id number] Printed on:12/13/18 4283 Medication Information acetaminophen 325 mg oral tablet [...] % Intake/Output Summary (Last 24 hours) at 12/14/1881 Last data filed at 12/14/18 0738 Gross [...] ? One lymph node negative for metastasis (0/) J. Lung, AP window, biopsy: ? One [...] be sent through Care Everywhere.Lung Resection: Post-op (Georgian)Mediastinoscopy: Pre-op (Georgian)documented in this encounter Medications at Time of [...] | 0 | 10/23/19 | | | mg oral tablet | [...] | | | | | | | release(/GIA) | | | | | | + [...] 2:00 PM PDTLeft chest tube removed. Keena Falcon, [facility]-REHAB NURSING TECH - 12/13/2018 8:11 AM PDT ENT SPEECH PATHOLOGY - INPATIENT NOTE REASON FOR ADMISSION: Per Thoracic surgery note 12/11, "Sussy Allred is a 68 y.o. female now POD#7 s/p left thoracotomy and COYD lobectomy with bronchial and PA reconstruction. L [...] or concerns about eating, drinking. DIETARY STATUS: Mech soft. Ate steelhead, veggies, rice and mandarin [...] Voice clear, breathing comfortably. No further acute REHAB NURSING TECH needs. PLAN: 1. ADAT back to regular diet. Pills by mouth okay - in liquids or purees as she wishes. -Aspiration precautions - upright with all PO, single small bites/sips, one bite/sip at a time -L head-turn + chin-tuck is fine if patient finds it helpful with liquids 2. TFs have been discontinued 3. ENT REHAB NURSING TECH will sign-off. Patient can follow-up with us as outpatient in clinic with Dr. Jose arce as needed. Keena Myles MS, CCC-REHAB NURSING TECH Speech-Language Pathologist [facility] Dept. of Otolaryngology, [address] [facility] [address] Pager: [phone] Terri Skaggs MD - 12/13/2018 7:11 AM PDT Thoracic Surgery Brief Inpatient Progress Note Patient name: SUSSY ALLRED Attending: Manoj Kumar MD Procedure day: 9 Procedure: Left thoracotomy, CODY lobectomy with bronchial and PA reconstruction 24 hour events: - Remains on NC, doing well, tolerating [facility] soft diet and diet, no complaints. 24 [...] ? One lymph node negative for metastasis (0/) J. Lung, AP window, biopsy: ? One [...] mechanical soft diet. Tube feeds off. Plan (lbnj-oj-hcmeafux issues): - Aspiration pneumonitis: Resolved - Hypophosphatemia: [...] Stacy Quevedo MD Cardiothoracic Surgery Fellow Pager: [phone] Keena Falcon, MYRNA- REHAB NURSING TECH - 12/12/2018 12:22 PM PDT ENT SPEECH PATHOLOGY - INPATIENT NOTE REASON FOR ADMISSION: Per Thoracic surgery note 4/24, "Sussy Allred is a 68 y.o. female [...] resident on- call. Recommend diet upgrade to [facility] soft and any liquids for more palatable [...] of TFs to promote appetite 3. ENT REHAB NURSING TECH will continue to follow. Please page [phone] as needed. Keena Myles MS, CCC-REHAB NURSING TECH Speech-Language Pathologist [facility] Dept. of Otolaryngology, [address] [place] [place] [address] Pager: [phone] Sharifa YBARRA, Terri ramirez - 12/12/2018 7:53 [...] a PEG tube for nutri tion. Plan (lpdr-km-ocqfwcsm issues): - Aspiration pneumonitis: Productive sputum, augmentin [...] Stacy Quevedo MD Cardiothoracic Surgery Fellow Pager: [phone] oKeena lopez, CCC- REHAB NURSING TECH - 12/11/2018 2:44 PM PDT ENT SPEECH [...] verified. The patient was evaluated in the [facility] 10th floor Radiology suite & was observed [...] re: decrease or discontinue TFs 3. ENT REHAB NURSING TECH will follow-up on morning. Please page [phone] or [phone] as needed. Keena Myles MS, CCC-REHAB NURSING TECH Speech-Language Pathologist [facility] Dept. of Otolaryngology, [address] [facility] [address] Pager: [phone] Taye Falcon CCC-HANNA - 12/11/2018 10:26 AM PDT ENT SPEECH [...] to improve and tolerate PO. 4. ENT REHAB NURSING TECH [place] [phone] or [phone] any time with questions or concer ns. Keena Myles MS, CCC-REHAB NURSING TECH Speech-Language Pathologist [facility] Dept. of Otolaryngology, [address] [facility] [address] Pager: [phone] Sharifa YBARRA, Terri ramirez - 12/11/2018 8:24 [...] PEG tube and stric t NPO. Plan (umit-an-cytqqahl issues): - Aspiration pneumonitis: Productive sputum, augmentin [...] Stacy Quevedo MD Cardiothoracic Surgery Fellow Pager: [phone] Meggan Howe SLP - 4:21 PM PDTINPATIENT ENT SPEECH PROGRESS NOTE: Order received, chart reviewed. Patient with history of "large volume aspiration", even un clear. Recommend objective swallow evaluation in Radiology Sunday, 12/11 prior to initiat ion of p.o. Intake. Recommend: NPO, all nutrition/hydration/medication via PEG Plan: MBS Sunday. Meggan Downs, Ph.D., [facility]-REHAB NURSING TECH Occupational Therapy Asst Director, [facility] Otolaryngology, Head and Neck Surgery [facility] [phone] Augustine Roa MD - 12/10/2018 9:51 AM PDT PATIENT NAME: Sussy Allerd [facility] MR#: [id number] : 1950 PRIMARY CARE PROVIDER: MALLIKA [place] [...] Intake/Output Summary (Last 24 hours) at 12/10/18 0961 Last data filed at 12/10/18 0545 Gross per 24 hour Intake 2132 ml [...] Dr. Jose da silva. Augustine Nolan M.D. Occupational Therapy Asst Laryngology and Head & Neck SurgeryElectronically signed [...] PEG tube and stric t NPO. Plan (elff-ey-bsugsuuk issues): - Aspiration pneumonitis: Productive sputum, augmentin [...] Stacy Quevedo MD Cardiothoracic Surgery Fellow Pager: [phone] alentKiya Hernandez MD,PhD - 12/09/2018 2:43 PM PDTBrief APS Note: Ms. Allred reports her pain is reasonably with oral pain medications, although she felt the epidural was providing superior analgesia. The epidural has been off since 10:00 AM. After c kacieking for appropriate timing since last anticoagulation dose and platelets, I removed the epidural, tip intact, at 14:43. The epidural had migrated out of the space and therefore was indicated for removal Please hold prophylactic enoxaparin for 4 hours post-catheter removal. APS will sign off, please page [phone] if there are questions or concerns. APS happy to repla ce epidural in future if primary team and patient think it is needed. Kiya Santos MD Pager [phone] Department of Anesthesiology and Perioperative Medicine Chronic [...] PEG tube and stric t NPO. 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 24 Hour events - [...] dysphagia. - Strict NPO, consider re consulting REHAB NURSING TECH today pending course and ENT recs - [...] 12/07 - Strict NPO - ENT performed BALANCE RECESSER scope with evidence of left vocal cord [...] Manoj Kumar MD Admitting Provider Cardiothoracic Surgery 65630 Quality section FAST HUG Feeding: Tube Feeds [...] all data and the recent imaging availabl eCARMELO Muse EPIC DEPARTMENT: ANE ICU CARDIAC Place of Service:- Inpatient CSN: [id number] Suggested Modifier: None Suggested CPT: TO DIAMOND POLISHER Author:CARMELO Riggins [address] [id number] signed by CARMELO Riggins at 12/09/2018 11:2 [...] 9/10. Specific activitie s that exacerbate Ms. Johnsons pain include deep breathing, coughing, moving in [...] Hamm MD Anesthesiology PGY1 APS Team Pager [phone] Associated attestation - Kiya Cedillo MD,PhD - 12/09/2018 4:57 PM PDTI saw and evaluated patient Ms. Sussy Allred with Resident: Dr. Hamm. I reviewed all details o f Ms. Sussy Allred s epidural block management. I have reviewed the resident s note and I agree with the plan of care as documented. I do not have additional comments. Kiya Santos MD,PhDDennis Allred PA-Frances - 12/08/2018 6:40 PM PDTFormatting of this no te might be different from the original. 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 Given her likely long-term [...] 12/07 - Strict NPO - ENT performed BALANCE RECESSER scope with evidence of left vocal cord [...] Manoj Kumar MD Admitting Provider Cardiothoracic Surgery 79264 Jama Zhao MD ICU PM Attending Anesthesiology 12208 Quality section FAST HUG Feeding: Tube Feeds: [...] e. 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 Given her likely long-term [...] No Chronic pain Yes Service Cardiac Surgery [8478] Admitting provider and ICU treatment team members Provider Role Specialty Pager Manoj Kumar MD Admitting Provider Cardiothoracic Surgery 46606 Jama Zhao MD ICU PM Attending Anesthesiology 62448 Code Status Code Status Full Code Quality section I have spent a total of 38 minutes in the direct care and management of this patient indepe ndent of any time spent teaching or performing any separately billable procedures. I reviewe d the documented findings, all data and the recent imaging available. Seen with PA/BALANCE RECESSER myah . Please see their note for details. I reviewed the documented findings, all data and the re cent imaging available. Dennis Myrick MD Author:Dennis Myrick MD [address] [address]Yiwdzkerurelap signed by Dennis Myrick MD at 12/08/2018 [...] Louie Moura MD Adult Acute Pain Service [facility] Pager#: [phone] Email: [email or web address] Alcocer MD - 12/08/2018 8:25 AM PDT Thoracic Surgery Brief Inpatient Progress Note Patient name: SUSSY ALLRED Attending: Manoj Kumar MD Procedure day: 4 [...] post-procedure ye day, which is reassuring. Plan (rknd-go-wccjebqi issues): - Aspiration pneumonitis: strict NPO, aggressive [...] - Discuss with MD Coreen Farley MD [facility] General Surgery Pager #[phone] Dariana Duvall PA-C - 12/08/2018 5:02 AM PDTFormatting of this note might be different from the or iginal. 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 Given her likely long-term [...] Manoj Kumar MD Admitting Provider Cardiothoracic Surgery 71524 Jama Zhao MD ICU PM Attending Anesthesiology 23701 Code Status Code Status Full Code This [...] and the recent imaging available. Seen with PA/BALANCE RECESSER Chalino. Please see their note for details. I reviewed the documented findings, all data and the rec ent imaging available. Date of Service: 12/07/2018 [facility] DEPARTMENT: ANE ICU CARDIAC Place of Service:- Inpatient CSN: [id number] Suggested Modifier: None Suggested CPT: TO DIAMOND POLISHER Author:Jama Zhao MD [address] P M Jaziel, Louie Daniels MD - [...] subcutaneous daily, last dose given yesterday at 2036 hrs. 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 Given her likely long-term need fo r tube feeding given her dysphagia, EGS consulted and plans for PEG. Patient's ICU course co mplicated by hypertension (required phenylephrine now weaned off) and high volume aspiration event with hypoxia requiring HFNC 20L. Remains hemodynamically stable. 24 Hour events - Strict NPO with concern for high volume aspiration, REHAB NURSING TECH signed off for now - Overnight worsening [...] event - Strict NPO - ENT performed BALANCE RECESSER scope with evidence of left vocal cord [...] Manoj Kumar MD Admitting Provider Cardiothoracic Surgery 03200 Jama Zhao MD ICU PM Attending Anesthesiology 63048 Quality section FAST HUG Feeding: NPO Analgesia: Epidural (HM-bupiv), rectal tylenol, lido patches Sedation: None Thromboprophylaxis: Lovenox Head of Bed: Head of Bed >30 degrees Ulcer Prophylaxis: Famotidine Glycemic Control: insulin sliding Created by Sonya Barron MD Author:Sonya Barron MD [address] [address]Ffenjabseswsfw signed by Dennis Myrick MD at 12/07/2018 1:48 PM Dennis Good MD - 12/07/2018 10:19 AM PDTFormatting of this note might be differen t from the original. Cardiovascular Intensive Care Unit Attending Progress Note CVICU D2 Assigned #[id number] ICU Admission Reason Most Recent Value ICU [...] Manoj Kumar MD Admitting Provider Cardiothoracic Surgery 78438 Jama Zhao MD ICU PM Attending Anesthesiology 39651 Code Status Code Status Full Code I [...] ICU CARDIAC Place of Service:- Inpatient CSN: [id number] Suggested Modifier: GC - Resident Involved Suggested CPT: TO DIAMOND POLISHER Dennis Myrick MD Author:Dennis Myrick MD [address] [id number] signed by Dennis Myrick MD at 12/07/2018 [...] strict NPO yesterday with concern for aspiration, REHAB NURSING TECH signed off for now - overnight worsening [...] he risk of prolonged intubation post-anesthesia. Plan (oqsk-cu-hviberbp issues): - Aspiration pneumonitis: strict NPO, aggressive [...] and discussed with Dr. Chaya Kim MD [facility] General Surgery Pager #[phone] Gayle Mayfield - 12/07/2018 9:21 AM PDTTransthoracic echocardiogram completed. Final report to suzy montague. Dennis Duvall PA-C - 12/07/2018 5:34 AM PDT Cardiovascular Intensive Care Unit Clinical Update Note Team: D2 Team Pager: [phone] Attending: Cece Garsia Name: Sussy Allred ID: Abbreviated HPI Update: [...] kg/m | BSA 1.73 m Intake/Output 12/05 07 - 12/06 0700 12/06 07 - 12/07 [...] General Surgery, PGY-3 EGS consult resident pager: [phone] Associated attestation - Derrick Handley MD - 12/08/2018 10:17 AM PDTATTENDING ADDENDUM I saw and examined Sussy Allred with the residents on 12/07 and agree with the assessmen t and plan as outlined in this note and participated in the planning of care. Derrick Handley MD FACS collections technician Division of Trauma, Critical Care, and Acute Care Surgery [phone] Dennis Myrick MD - 12/06/2018 11:01 AM PDTFormatting of this note might be different f rom the original. Cardiovascular Intensive Care Unit Attending Progress Note CVICU D2 Assigned #[id number] ICU Admission Reason Most Recent Value ICU [...] is comfortable - pt will need likely long term care pharmacist enteral access. Has requested surgical feeding tube [...] Manoj Kumar MD Admitting Provider Cardiothoracic Surgery 07539 Doty necessity reviewed: Plan to DC today I [...] ICU CARDIAC Place of Service:- Inpatient CSN: [id number] Suggested Modifier: GC - Resident Involved Suggested CPT: TO DIAMOND POLISHER Dennis Myrick MD Author:Dennis Myrick MD [address] [address]Zkyjoiickxiycm signed by Dennis Myrick MD at 12/06/2018 11:01 AM Silvana Skaggs MD - 12/06/2018 9:21 AM PDTThoracic surgery progress [...] Stacy Quevedo MD Cardiothoracic Surgery Fellow Pager: [phone] Sonya Li MD - 11/18 7:50 AM PDT Cardiovascular Intensive Care Unit Team Progress Note CVICU D2 Assigned #[id number] ICU Admission Reason Most Recent Value ICU [...] DHT vs eventual Gtube - ENT performed BALANCE RECESSER scope with evidence of left vocal cord [...] Manoj Kumar MD Admitting Provider Cardiothoracic Surgery 83461 Quality section A-Line necessity reviewed: Plan to DC today Doty necessity reviewed: Plan to DC today FAST HUG Feeding: NPO Analgesia: epidural, Tylenol, lidocaine patches Sedation: None Thromboprophylaxis: Lovenox Head of Bed: Head of Bed >30 degrees Ulcer Prophylaxis: Famotidine Glycemic Control: insulin sliding Created by Sonya Barron MD Author:Sonya Barron MD [address] [place] [place] [id number] signed by Dennis Myrick MD at 12/06/2018 [...] revealed minimally mobile LEFT true vocal cord. REHAB NURSING TECH evaluation with concern for ri sk of [...] Flores MD Anesthesiology/CCM Fellow APS Team Pager [phone] Associated attestation - Louie Moura MD - 12/07/2018 2:59 PM PDTI saw and evaluated mallika Allred with trainee: Dr. Flores . I have reviewed the trainee's note and I agree with the plan of care as documented. Louie Moura MD Adult Acute Pain Service [facility] Pager#: [phone] Email: [email or web address] PA-C - 12/05/2018 9:06 PM PDTFormatting of this note mi ght be different from the original. Cardiovascular Intensive Care Unit Clinical Update Note Team: D2 Team Pager: [phone] Attending: Layla Pt Name: Sussy Allred ID: Abbreviated HPI Update: 1. Hypotension a. Impoved 12/05/2018 after 2L crystalloid b. UO improved with IVF 2. Recurret Laryngeal nerve a. ENT Eval complete b. Pending re eval by REHAB NURSING TECH for swallow this sim S: Pain, drowsy [...] Unit Team Progress Note CVICU D2 Assigned #[id number] ICU Admission Reason Most Recent Value ICU [...] levothyroxine 50mcg PO DAILY after clear by REHAB NURSING TECH Cardiovascular HTN (hypertension) Unknown Current Assessment & [...] - restart PO PPI when clear by REHAB NURSING TECH At risk for Dysphagia Unknown Current Assessment [...] Manoj Kumar MD Admitting Provider Cardiothoracic Surgery 88629 Quality section A-Line necessity reviewed: Sueo-vn-ldvy blood pressure monitoring Doty necessity reviewed: Hourly/Accurate measurement of urinary output for clinical manage ment of critically ill patients FAST HUG Feeding: NPO Analgesia: Tylenol, epidural (bupiv-fent) Sedation: None Thromboprophylaxis: SCDs Head of Bed: Head of Bed >30 degrees Ulcer Prophylaxis: Famotidine Glycemic Control: insulin sliding Created by Sonya Barron MD Author:Sonya Barron MD [address] [id number] signed by Dennis Myrick MD at 12/06/2018 7:16 AM Ava Abraham, CF-REHAB NURSING TECH - 12/05/2018 10:00 AM PDTEJ SPEECH PATHOLOGY-INPATIENT NOTE REASON FOR ADMISSION: Sussy [...] HISTORY: she is single and lives in [place], [place] DIETARY STATUS: Current diet: The patient [...] afternoon when less lethargic/sedate. Ava Allred M.S., CF-REHAB NURSING TECH Speech-Language Pathology Fellow [facility] [phone] Pager: [phone] Dennis Good MD - 12/05/2018 8:57 AM PDT Cardiovascular Intensive Care Unit Attending Progress Note CVICU D2 Assigned #[id number] ICU Admission Reason Most Recent Value ICU [...] Manoj Kumar MD Admitting Provider Cardiothoracic Surgery 45491 Code Status Code Status Full Code Quality section A-Line necessity reviewed: Jllj-gy-llfb blood pressure monitoring Doty necessity reviewed: Acute [...] ICU CARDIAC Place of Service:- Inpatient CSN: [id number] Suggested Modifier: GC - Resident Involved Suggested CPT: TO DIAMOND POLISHER Dennis Myrick MD Author:Dennis Myrick MD [address] [id number] signed by Dennis Myrick MD at 12/05/2018 [...] 1,000 mg 1,000 mg intravenous Q6H Stopped (12/05/188) beclomethasone (QVAR) 40 mcg/actuation inhaler 1 puff [...] 0.1-2 mcg/kg/min intravenous CONTINUOUS 1 mcg/kg/min (12/05/18 07) SUFentanil 2 mcg/mL in NaCl 0.9 % [...] Flores MD Anesthesiology/CCM Fellow APS Team Pager [phone] Associated attestation - Kiya Cedillo MD,PhD - 12/05/2018 4:50 PM PDTI saw and evaluated patient Ms. Sussy Allred with Resident: Dr. Flores. I reviewed all detail s of Ms. Sussy Allred s epidural block management. I have reviewed the resident s no te and I agree with the plan of care as documented. I do not have additional comments. Kiya Santos MD,PhDSae YBARRA, [facility] - 12/05/2018 7:45 AM PDTThoracic surgery progress [...] Stacy Quevedo MD Cardiothoracic Surgery Fellow Pager: [phone] Eloina, DEBBIE Collins - 3:00 AM PDT Cardiovascular Intensive Care Unit Clinical Update Note Team: D2 Team Pager: [phone] Attending: Layla Pt Name: Sussy Allred ID: [...] - restart PO PPI when clear by REHAB NURSING TECH Hypothyroidism 12/04/2018 Assessment & Plan Note: - restart home levothyroxine 50mcg PO DAILY after clear by REHAB NURSING TECH Acute post-operative pain 12/04/2018 Assessment & Plan [...] kg/m | BSA 1.62 m Pain Score: 410 Physical Exam vitals reviewed. Constitutional: She appears [...] LEVEL/LATERALITY: bilateral ATTENDING PHYSICIAN: Hellen Herman MD FIRE SAFETY DIRECTOR: Jamey Flores MD, Manda Hamm MD ANESTHESIA: [...] procedure. MD Jamey Boss M.D. Assisted our paid intern. I saw and evaluated patient Ms. Sussy [...] | | | | | [address] [place], | | | | | | [place] [address] | | | | | | [phone] | | | | | | | | +--------+---------+ + + + | 04/30/ | Office | Otolaryngology | Augustine Nolan | | | 2019 | Visit | | MD Debbie [address] | | | [address] | | | | | | [place], [place] | | | | | | [address] | | | | | | [phone] | | | | | | | [...] | + +--------+ + + + | VAT: [...] + +--------+ + + + | TO DIAMOND POLISHER | Routin | 12/05/2018 | | Results [...] + + + + | [facility] | [address] | [place], [place] | | | IESHA HAYWARD OF [facility] | [address] | [address] | | | TESTS | | | [...] Preliminary: Jadyn Mcadams MD Dictation initiated: Jadyn Gutierres | Bhavik Mcadams MD 12/14/2018 10:04 AM | | + + [...] [facility] | [address] | [place], [place] | | | MARISSA JULIAN OF [facility] | [facility] | [address] | | | TESTS | | | | + + + + + X-RAY PORTABLE CHEST 1 VIEW (12/13/2018 8:24 AM PDT) + + | Specimen | + + | | + + + + + | Narrative | Performed At | + + + | EXAM: [place] CHEST 1 VIEW HISTORY: eval interval change. [...] Preliminary: Frieda Brumfield MD Dictation initiated: Frieda Gutierres | Bhavik Brumfield MD 12/13/2018 9:42 AM | | + + + + + | Procedure Note | + + | 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, Radiant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 - 12/13/2018 9:47 AM PDT EXAM: [place] CHEST 1 | | VIEW HISTORY: eval [...] [facility] | [address] | [place], [place] | | | MARISSA JULIAN OF [facility] | [address] | [address] | | | TESTS | | | [...] + + | [facility] | [address] [facility] [address] | [place], [place] | | | [place] H[facility]WARD OF [facility] | [address] | [address] | | | TESTS | | | [...] | MD Sae Cardiothoracic Surgery Fellow Pager: [phone] | | + + + CAPILLARY BLOOD [...] [facility] | [address] | [place], [place] | | | [facility]HA POINT OF CARE | [address] | [address] | | | TESTS | | | [...] [facility] | [address] | [place], [place] | | | MARISSA JULIAN OF CARE | [address] | [address] | | | TESTS | | | [...] [facility] | [address] | [place], [place] | | | [facility] | [address] | [address] | | | TESTS | | | [...] + | [facility] | [address] | [place], [place] | | | [facility] | [address] | [address] | | | TESTS | | | [...] + + + | [facility] | [address] | [place], [place] | | | [facility] | [address] | [address] | | | TESTS | | | [...] [facility] | [address] | [place], [place] | | | MARISSA JULIAN OF CARE | [address] | [address] | | | TESTS | | | [...] Jung MD Dictation initiated: Keith | | Bhavik Jung MD 12/11/2018 11:37 AM | | + + [...] | + + + + + | [facility] | [address] | [place] [address] | | | SERVICES, CORE | EULALIO [...] [facility] | [address] | [place] [address] | | | SERVICES, CORE | [address] [...] | | | LABORATORY | | | CYMRAES | | | SERVICES, | | | [...] | + + + + + | [facility] [employer] | [address] | [place] [address] | | | SERVICES, KOKI | EULALIO [...] + + + + | [facility] | [address] | [place], [place] | | | MARISSA JULIAN OF CARE | [facility] | [address] | | | TESTS | | | [...] (H) | 60 - 99 mg/dL | [facility] - | | | GLUCOSE, | | [...] + + + + | [facility] | [address] | [place], [place] | | | IESHA PO[facility] OF CARE | [address] | [address] | | | TESTS | | | [...] [facility] | [address] | [place], [place] | | | MARISSA JULIAN OF CHE | [facility] | [address] | | | TESTS | | | [...] | + + + + + | [employer] | [address] | [place] [address] | | | SERVICES, CORE | [address] | | | + + + + + MAGNESIUM, PLASMA (12/10/2018 6:13 AM PDT) + +-------+ + + + | Component | Value | Ref Range | Performed | Pathologist | | | | | At | Signature | + +-------+ + + + | MAGNESIUM,P | 2.4 | 1.6 - 2.6 mg/dL | [facility] | | | PRERNAMA | | | [...] [facility] | [address] | [place] [address] | | | KOKI STUART | [address] | | | + [...] | | | LABORATORY | | | CYMRAES | | | SERVICES, | | | [...] | + + + + + | [facility] | [address] | [place] [address] | | | SERVICES, CORE | EULALIO [...] | + + + + + | [facility] | [address] | [place] [address] | | | SERVICES, CORE | EULALIO [...] | | | LABORATORY | | | CYMRAES | | | SERVICES, | | | [...] [facility] | [address] | [place] [address] | | | SERVICES, CORE | [address] [...] | + + + + + | [facility] | [address] | [place] [address] | | | SERVICES, CORE | [address] | | | + + + + + MAGNESIUM, PLASMA (12/09/2018 6:35 AM PDT) + +-------+ + + + | Component | Value | Ref Range | Performed | Pathologist | | | | | At | Signature | + +-------+ + + + | MAGNESIUM,P | 2.4 | 1.6 - 2.6 mg/dL | [facility] | | | LASMA | | | [...] [facility] | [address] | [place] [address] | | | SERVICES, CORE | [address] [...] | + + + + + | [facility] | [address] | [place] [address] | | | SERVICES, [facility] | [address] | | | + + + + + X-RAY PORTABLE CHEST 1 VIEW (12/09/2018 5:41 AM PDT) + + | Specimen | + + | | + + + + + | Narrative | Performed At | + + + | EXAM: [place] CHEST 1 VIEW HISTORY: Shortness of breath. Status post | [facility] | | left upper lobectomy. COMPARISON: Yesterday [...] Escobar MD 12/09/2018 7:44 AM Preliminary: Parmjit Gutierres | MD Shawn Dictation initiated: Parmjit Escobar MD | | | 12/09/2018 7:42 AM | | + + + + + | Procedure Note | + + | 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, dELiAs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 - 12/09/2018 7:45 AM PDT EXAM: [place] CHEST 1 | | VIEW HISTORY: Shortness [...] 1.8 | 1.6 - 2.6 mg/dL | [facility] [...] [facility] | [address] | [place] [address] | | | SERVICES, CORE | [address] [...] | | | LABORATORY | | | CYMRAES | | | SERVICES, | | | [...] Interpretive Information: <60 mL/min/1.73 sq m | SADE, CORE | | Chronic Kidney Disease <15 [...] | + + + + + | [facility] | [address] | [place] [address] | | | KOKI STUART | [address] [...] | + + + + + | [facility] | [address] | [place], [place] | | | MARISSA JULIAN OF CARE | [address] | [address] | | | TESTS | | | [...] | + + + + + | [facility] | [address] | [place] [address] | | | SERVICES, CORE | EULALIO [...] | | | LABORATORY | | | CYMRAES | | | SERVICES, | | | [...] | + + + + + | [facility] | [address] | [place] [address] | | | SERVICES, CORE | EULALIO [...] | | | LABORATORY | | | CYMRAES | | | SERVICES, | | | [...] | + + + + + | [facility] | [address] | [place] [address] | | | SERVICES, CORE | [address] | | | + + + + + X-RAY PORTABLE CHEST 1 VIEW (12/08/2018 4:58 AM PDT) + + | Specimen | + + | | + + + + + | Narrative | Performed At | + + + | EXAM: WY CHEST 1 VIEW HISTORY: SoB COMPARISON: Chest [...] Interface - 12/08/2018 10:59 AM PDT EXAM: [place] CHEST 1 | | VIEW HISTORY: SoB [...] 2.0 | 1.6 - 2.6 mg/dL | [facility] [...] [facility] | [address] | [place] [address] | | | KOKI STUART | [address] [...] | | | LABORATORY | | | CYMRAES | | | SERVICES, | | | [...] | + + + + + | [facility] [employer] | [address] | [place] [address] | | | SERVICES, CORE | E[address]AL[address] [...] | + + + + + | [facility] | [address] | [place] [address] | | | SERVICES, CORE | E[address]AL[address] [...] operation. | | | Dereck Rodriguez MD [facility] [address] [facility] | | | [place] [address] | | + + + PROCEDURE NOTE [...] | | | attempt. Midline lot number [id number]; there was excellent blood | | | return. The catheter was flushed with 20 mL of Normal Saline, an | | | antimicrobial disc was placed at the insertion site and a catheter | | | securement device was utilized. Complications: none Placed | | | by: Alam Cat RN | | + + + [...] Performed At | + ----+ + | [facility] DEPT OF | | [facility] Adult Echocardiography Laboratory [address] CARDIOLOGY | | [place], [place] [address] Ph: | | | Pt Name: SUSSYJACKIE ALLRED | | | Study Date/Time 12/07/2018 / 8:45:36 AMMRN: [id number] | | | Most recent prior: 11/26/2018Acc #: [id number] | | | No. previous echos: 1DOB: 1950 68 years Heart | | | Rate: 88 bpmHeight: 64.0 in Blood | | | Pressure: 104/64 mm/HgWeight: 145.0 lb | | | Gender: FBSA: 1.71 m | | | Order ID: [id number] Study | | | [facility] Gayle Michael RCSSonographer 2:Referring | | | Provider: Dennis Taylroalities Performed: 2D, Color flow, Spectral | | [...] Report | | | electronically signed by: [id number] Kathleen Sam MD (12/07/2018, | | | [...] | | | |Report electronically signed by: [id number] Kathleen Sam MD (12/07/2018, 4:42:18 PM) | | | | | | | | | | | | Final | | + ----+ + + + | Procedure Note | + + | Interface, Cardiology Results - 12/07/2018 4:42 PM [facility] | | [facility] Echocardiography Laboratory [address] [place] [address] | | [place], [place] [address] Pt Name: SUSSY REEVES | | CHALINO Study Date/Time 12/07/2018 / 8:45:36 AMMRN: [id number] Most | | recent prior: 11/26/2018Acc #: [id number] No. previous echos: 1DOB: | | 1950 68 years Heart Rate: 88 bpmHeight: 64.0 in Blood | | Pressure: 104/64 mm/HgWeight: 145.0 lb Gender: FBSA: | | 1.71 m | | Order ID: [id number] [facility] Geyser | | [facility] 2:Referring Provider: Dennsi AllredModalities Performed: 2D, | | Color flow, [...] and indexed values Report electronically signed by: [id number] | | Kathleen Sam MD (12/07/2018, 4:42:18 [...] | | | |Report electronically signed by: [id number] Kathleen Sam MD (12/07/2018, 4:42:18 PM) | | | | | | | | Final | + + + + + + + | Performing | Address | City/State/Zipcode | Phone Number | | Organization | | | | + + + + + | [facility] | [address] | [place], [place] | | | CARDIOLOGY | [address] | [address] | | + + + + + X-RAY PORTABLE CHEST 1 VIEW (12/07/2018 5:56 AM PDT) + + | Specimen | + + | | + + + + + | Narrative | Performed At | + + + | EXAM: WY CHEST 1 VIEW HISTORY: SoB COMPARISON: Chest [...] Interface - 12/07/2018 12:19 PM PDT EXAM: WY CHEST 1 | | VIEW HISTORY: SoB [...] [facility] | [address] | [place] [address] | | | SERVICES, CORE | [address] [...] + + | [facility] | [address] | [place] [address] | | | SERVICES, CORE | [address] [...] | | | LABORATORY | | | CYMRAES | | | SERVICES, | | | [...] the MDRD equation recommended by the | [facility] | | National Kidney Disease Education Program. Estimated GFR | LABORATORY | | Interpretive Information: <60 mL/min/1.73 sq m | SADE, CORE | | Chronic Kidney Disease <15 [...] | + + + + + | [facility] | [address] | [place] [address] | | | SADE, CORE | [address] | | | [...] | + + + + + | [facility] | [address] | [place] [address] | | | SERVICES, KOKI | [address] [...] | + + + + + | [facility] | [address] | [place] [address] | | | SERVICES, CORE | [address] [...] | | | LABORATORY | | | [address] | | | SERVICES, | | | [...] Interpretive Information: <60 mL/min/1.73 sq m | SADE, CORE | | Chronic Kidney Disease <15 [...] | + + + + + | [facility] | [address] | [place] [address] | | | KOKI STUART | [address] | | | + + + + + X-RAY PORTABLE CHEST 1 VIEW (12/06/2018 6:10 AM PDT) + + | Specimen | + + | | + + + + + | Narrative | Performed At | + + + | EXAM: WY CHEST 1 VIEW HISTORY: SoB COMPARISON: Yesterday [...] Interface - 12/06/2018 8:38 AM PDT EXAM: WY CHEST 1 | | VIEW HISTORY: SoB [...] | + + + + + | [facility] | [address] | [place] [address] | | | SERVICES, CORE | [address] [...] Images archived to | | | institution surveillance observer | | + + + X-RAY PORTABLE CHEST 1 VIEW (12/05/2018 5:59 AM PDT) + + | Specimen | + + | | + + + + + | Narrative | Performed At | + + + | EXAM: WY CHEST 1 VIEW HISTORY: post left thoracotomy, [...] Preliminary: Charli Palacios MD Dictation initiated: Charli | | | MD Philip 12/05/2018 8:01 AM | | + + + + + | Procedure Note | + + | 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, Radiant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 - 12/05/2018 9:53 AM PDT EXAM: WY CHEST 1 | | VIEW HISTORY: post [...] details. | | + + + ART ASHANTI (12/05/2018 2:56 AM PDT) + + + [...] Radial Catheter size: 3 | | | hungarian x 5 cm Number of attempts: 3 [...] [facility] | [address] | [place] [address] | | | SERVICES, CORE | [address] | | | + + + + + MAGNESIUM, PLASMA (12/05/2018 1:45 AM PDT) + +-------+ + + + | Component | Value | Ref Range | Performed | Pathologist | | | | | At | Signature | + +-------+ + + + | MAGNESIUM,P | 1.8 | 1.6 - 2.6 mg/dL | [facility] [...] | + + + + + | [facility] | [address] | [place] [address] | | | SERVICES, CORE | [address] [...] | | | LABORATORY | | | CYMRAES | | | SERVICES, | | | [...] | + + + + + | [facility] | [address] | [place] [address] | | | SERVICES, CORE | [address] | | | + + + + + X-RAY PORTABLE CHEST 1 VIEW (12/04/2018 6:32 PM PDT) + + | Specimen | + + | | + + + + + | Narrative | Performed At | + + + | EXAM: WY CHEST 1 VIEW HISTORY: Status post left VATS, left | [facility] | | thoracotomy, left upper lobectomy, for [...] Interface - 12/05/2018 9:54 AM PDT EXAM: WY CHEST 1 | | VIEW HISTORY: Status [...] | + + + + + | [facility] | [address] | [place] [address] | | | SERVICES, CORE | E[address] [...] | + + + + + | [facility] | [address] | [place] [address] | | | SERVICES, CORE | [address] [...] | | | LABORATORY | | | CYM[place]ES | | | SERVICES, | | | [...] + + | Performing | Address | City/State/[facility] Centercode | Phone Number | | Organization | | | | + + + + + | [facility] | [address] | [place] [address] | | | SERVICES, CORE | [address] [...] (H) | 60 - 99 mg/dL | [facility] | | | GLUCOSE, | | [...] [facility] | [address] | [place], [place] | | | MARISSA JULIAN OF CHE | [address] | [address] | | | TESTS | | | | + + + + + OPERATION RECORD (12/04/2018 4:05 PM PDT) + + | Procedure Note | + + | Manoj Kumar MD - 12/04/2018 4:05 PM PDT Date of Service: 12/04/2018 Attending | | Surgeon:Manoj Kumar MD Drilling Rig Operator(s):Pritesh Chang | | Bethel Quevedo MD Preoperative [...] ribs were reapproximated using | | multiple clgiaf-fj-xyehj #2 Vicryl sutures. Serratus closed with #1 Vicryl, | | subcutaneous tissue closed with 2-0 Vicryl, skin closed with 4-0 Vicryl. Sterile | | dressings were applied. A single 28-Indonesian chest tube was placed through the inferior [...] 12/04/2018 15:15:41DT: 12/04/2018 16:05:12Job #: | | [id number] | + + CAPILLARY BLOOD GLUCOSE (NO [...] [facility] | [address] | [place], [place] | | | IESHA POINT OF CARE | [address] | [address] | | | TESTS | | | | + + + + + CHARLEY-EDER WYATT (12/04/2018 2:27 PM PDT) + + + [...] | | ART, POC | | | [facility] | | | | | [...] [facility] | [address] | [place], [place] | | | MARISSA JULIAN OF CARE | [address] | [address] | | | TESTS | | | [...] [facility] | [address] | [place], [place] | | | MARISSA JULIAN OF CARE | [address] | [address] | | | TESTS | | | | + + + + + CHARLEY-BREANNA TELLEZ POC (12/04/2018 10:21 AM PDT) + + + [...] [facility] | [address] | [place], [place] | | | IESHA HAYWARD OF [facility] | [address] | [address] | | | TESTS | | | [...] PATHOLOGY | MD Rubina | | | (1/) Sales cytokeratin | | | on 12/12/2018 [...] | | | | | | node (1/)F. Lymph node, | | | | | [...] nodes | | | | | | (1/)H. Lymph node, | | | | | [...] carcinoma | | | | | | (08/20)K. Lymph node, 11L | | | | | | lower lobe, biopsy: | | | | | | Fragments of lymph node | | | | | | with metastatic | | | | | | carcinoma (08/20)L. Lymph | | | | | | node, level 11L | | | | | | BIFURCATION, biopsy: | | | | | | One lymph node with | | | | | | metastatic carcinoma | | | | | | (08/20) Tumor is also | | | | [...] edition): | | | | | | [id number]: The | | | | | | [...] PathologistPathology, | | | | | | [facility] [email or web address] | | | | | | University [...] number | | | | | | [id number].A. Lymph node, | | | | | [...] surfaces. | | | | | | Reinsurance Clerk sections | | | | | | [...] | | | | | | density, bilingual sales representative | | | | | | [...] mass. | | | | | | Reinsurance Clerk sections | | | | | | [...] | | | | | | from [id number]: 3.2 cm | | | | | [...] mass, | | | | | | bilingual sales representative sections, | | | | | | to include relationship | | | | | | with pleura in | | | | | | [id number]: Subpleural | | | | | | induration, | | | | | | bilingual sales representative | | | | | | [id number]: Uninvolved | | | | | | parenchyma, | | | | | | bilingual sales representative | | | | | | [id number]: 1 density | | | | | | suggestive of lymph | | | | | | node, [id number]: 1 | | | | | | [...] | | | | separately | MD Devonte, PhD | | | | | | | | | | | | PathologistPathology, | | | | | | [facility] | | | | [...] PathologistPathology, | | | | | | [facility] | | | | [...] PathologistPathology, | | | | | | [facility] | | | | [...] PathologistPathology, | | | | | | [facility] | | | | [...] PathologistPathology, | | | | | | [facility] | | | | | | UniversityFrozen section | | | | | | diagnosis: E1. Lymph | | | | | | node. level 4L: Positive | | | | | | for carcinoma. Met | | | | | | GRACIELA.Frozen section | | | | | | pathologist(s): Raiv | | | | | | MD Whitney PhD | | | | | | | | | | | | PathologistPathology, | | | | | | [facility] | | | | [...] PathologistPathology, | | | | | | [facility] | | | | [...] PathologistPathology, | | | | | | [facility] | | | | [...] PathologistPathology, | | | | | | [facility] | | | | [...] PathologistPathology, | | | | | | [facility] | | | | [...] PathologistPathology, | | | | | | [facility] | | | | [...] PathologistPathology, | | | | | | [facility] | | | | [...] PathologistOHSU | | | | | | Pathology, [place] | | | | | | CampusFrozen [...] PathologistOHSU | | | | | | Pathology, [place] | | | | | | Unity that point | | | | + [...] | + + + + + | [facility] DEPARTMENT | [address] | [place] [address] | | | PATHOLOGY | [address] | | | + + + + + FINE NEEDLE ASPIRATE (12/04/2018 8:06 AM PDT) + + + + + + | Component | Value | Ref Range | Performed | Pathologist | | | | | At | Signature | + + + + + + | Addendum 1 | Addendum created in | | [facility] | Addendum | | | error. | | LABORATORY | electronically | | | | | SERVICES, | signed by Beck | | | | | [facility] | Christiano Ta MD on | | [...] fine | | LABORATORY | signed by Beck | | Diagnosis | needle aspiration: | [...] case | | | | | | ([id number])]. No | | | | | | definite carcinoma cells | | | | | | seen are seen in this | | | | | | sampling, however see | | | | | | case [id number]. Case | | | | | | [...] PathologistPathology, | | | | | | [facility] | | | | | | [place] My electronic | | | | | | [...] PathologistPathology, | | | | | | [facility] | | | | | | [place] | | | | + + + [...] | + + + + + | [facility] | [address] | [place] [address] | | | SERVICES, [facility] | | | | | HE[facility] + HEALING | | | | + + + + + | [facility] | [address] | [place] [address] | | | PATHOLOGY | [address] [...] 92 | 60 - 99 mg/dL | [facility] [...] + + + + | [facility] | [address] | [place], [place] | | | MARISSA JULIAN OF CHE | [address] | [address] | | | TESTS | | | [...] Diagnoses Not on filedocumented in this encounter Administered Medications + +--------+ +--------+------+------+ | Medication Order | MAR | Action | Dose | Rate | Site | | | Action | Date | | | | + +--------+ +--------+------+------+ | acetaminophen (TYLENOL) tablet | Given | 12/15/19 | 650 mg | | | | 650 mg 650 mg, oral, EVERY 6 | | 19 8:58 | | | | | HOURS, First dose on [facility] 12/12/18 | | AM PDT | | | | | at 1600, Until Discontinued | | | | | | + +--------+ +--------+------+------+ +-------+ +--------+---+---+ | Given | 12/14/19 | [...] +---+---+ | | | +---+---+ + +-------+ +-------+---+-------+ | bupivacaine (PF) | Given | 12/05/19 | 20 mL | | Chest | | (MARCAINE,SENSORCAINE-MPF) 0.25 % | | 19 3:08 | | | | | (2.5 mg/mL) injection | | PM PDT | | | | | INTRAPROCEDURE PRN, Starting Sun | | | | | | | 12/04/18 at 0930, Until Wed | | | | | | | 12/04/18 at 1542 | | | | | | + +-------+ +-------+---+-------+ +-------+ +-------+---+-------+ | Given | 12/05/19 | 10 mL | | Chest | | | 19 9:30 | | | | | | AM PDT | | | | +-------+ +-------+---+-------+ +---+---+ | | | +---+---+ + +-------+ +--------+---+---+ | buPROPion (WELLBUTRIN) tablet | Given | 12/15/19 | 100 mg | | | | 100 mg 100 mg, oral, THREE TIMES | | 19 8:58 | | | | | DAILY, First dose (after last | | AM PDT | | | | | modification) on Jenniffer 12/12/18 at | | | | [...] | | | EVENING, First dose on Sun | | PM [...] | +---+---+ + +-------+ +------+---+ + | heparin 1000 units/mL-NS | Given | 12/05/19 | 9 mL | | Surgical | | injection INTRAPROCEDURE PRN, | | 19 3:07 | | | Site | | Starting 12/04/18 at 1413, | | PM PDT | | | | | Until Sun12/04/18 at 1542 | | | | | | + +-------+ +------+---+ + +-------+ +---+---+---+ | Given | 12/05/19 | | | | | | 19 2:13 | | | | | | PM PDT | | | | +-------+ +---+---+---+ +---+---+ | | | +---+---+ + [...] | EVERY 24 HOURS, First dose on Wed | | PM PDT | | [...] | | +---+---+ + +-------+ +-------+---+---+ | mineral oil liquid | Given | 12/05/19 | 10 mL | | | | INTRAPROCEDURE PRN, Starting Wed | | 19 2:12 | | | | | 12/04/18 at 1412, Until Wed | | PM PDT | | | | | 12/04/18 at 1542 | | | | | | + [...] PDT | | | | +-------+ +-------+---+---+ + [...] TWICE DAILY NEEDED, | | | Starting [facility] 12/12/18 at 1241, | | | Until 12/14/18 at 1814, | | | constipation | | + +---+ | | | + +---+ + +-------+ +--------+---+---+ | triamterene-hydrochlorothiazide | Given [...]
--- OUTSIDE RECORDS SUMMARY | ~2020-03-30 | XMS | Encounter Summary ---
Demographics + + + | Address | [address] | | | [place] [address] | + + + | Home Phone | | + + + | Preferred Language | Unknown | + + + | Marital Status | Single | + + + | Oriental Orthodox Affiliation | NRP | + + + | Race | White | + + + | Ethnic Group | Not or | + + + Author + + + | Author | [facility] | + + + | Organization | [facility] | + + + | Address | Unknown | + + + | Phone | Unavailable | + + + Support + + +---------+ + | Name | Relationship | Address | Phone | + + +---------+ + | Laura Allred | ECON | Unknown | | + + +---------+ + Care Team Providers + +------+ + | Care School Librarian Name | Role | Phone | + +------+ + | Lauryn Stuart | PCP | | + +------+ + Encounter Details +--------+ + + + + | Date | Type | Department | Care Team | Description | +--------+ + + + + | 11/22/ | Procedure | Radiology/Imaging | | | | 2019 | Pass | [facility] at [facility] [id number] | | | | | | [facility], | | | | | | [address] | | | | | | Floor [place], [place] | | | | | | [address] | | | | | | [phone] | | | +--------+ + + + [...] | | | | | | [place] [address] | | | | | | [phone] | | | | | | | | +--------+---------+ + + + | 04/30/ | Office | Otolaryngology | Augustine Nolan | | | 2019 | Visit | | MD Debbie [address] | | | | | | [address] | | | | | | [place] | | | | | | [address] | | | | | | [phone] | | | | | | | | +--------+---------+ + + + documented as of this encounter Visit Diagnoses Not on filedocumented in this encounter
--- OUTSIDE RECORDS SUMMARY | ~2020-03-30 | XMS | Encounter Summary ---
Demographics + + + | Address | [address] | | | [place] [address] | + + + | Home Phone | | + + + | Preferred Language | Unknown | + + + | Marital Status | Single | + + + | Religion Affiliation | NRP | + + + | Race | White | + + + | Ethnic Group | Not or | + + + Author + + + | Author | [facility] | + + + | Organization | [facility] | + + + | Address | Unknown | + + + | Phone | Unavailable | + + + Support + + +---------+ + | Name | Relationship | Address | Phone | + + +---------+ + | Laura Allred | ECON | Unknown | | + + +---------+ + Care Team Providers + +------+ + | Care Art Sales Consultant Name | Role | Phone | + +------+ + | Lauryn Stuart | PCP | | + +------+ + Encounter Details +--------+ + + + + | Date | Type | Department | Care Team | Description | +--------+ + + + + | 12/14/ | Pharmacy | Outpatient Retail | | | | 2019 | Visit | [facility] | | | | | | [address] | | | | | | [address] [place], [place] | | | | | | [address] | | | | | | [phone] | | | +--------+ + + + [...] | | | | | | [place] [address] | | | | | | [phone] | | | | | | | | +--------+---------+ + + + | 04/30/ | Office | Otolaryngology | Augustine Nolan | | | 2020 | Visit | | MD Debbie [address] | | | | | | [address] | | | | | | [place] | | | | | | [address] | | | | | | [phone] | | | | | | | | +--------+---------+ + + + documented as of this encounter Visit Diagnoses Not on filedocumented in this encounter
--- OUTSIDE RECORDS SUMMARY | ~2020-03-30 | XMS | Encounter Summary ---
Demographics + + + | Address | [address] | | | [place] [address] | + + + | Home Phone | | + + + | Preferred Language | Unknown | + + + | Marital Status | Single | + + + | Anabaptist Affiliation | NRP | + + + [...] Team Providers + +------+ + | Care Storage Brine Worker Name | Role | Phone | + +------+ + | Lauryn Stuart | PCP | | + +------+ + Encounter Details +--------+ + + + + | Date | Type | Department | Care Team | Description | +--------+ + + + + | 12/23/ | Telephone | Cardiothoracic | Heladio Francisco, | | | 2019 | | [facility] at [facility] [address] | [address] | | | | | [address] | [address] | | | | | Physician's | [place], [place] | | | | | [address], [address]nd floor | [address] | | | | | [place], [place] | [phone] | | | | | [address] | | | | | | [phone] | | | +--------+ + + + [...] | Barbra Ramirez SLP | | | 2020 | Visit | | [address] | | | | | | [place], | | | | | | [place] [address] | | | | | | [phone] | | | | | | | | +--------+---------+ + + + | 04/30/ | Office | Otolaryngology | Augustine Nolan | | | 2019 | Visit | | MD Debbie [address] [facility] | | | | | | [address] | | | | | | [place] | | | | | | [address] | | | | | | [phone] | | | | | | | | +--------+---------+ + + + documented as of this encounter Visit Diagnoses Not on filedocumented in this encounter
--- OUTSIDE RECORDS SUMMARY | ~2020-03-30 | XMS | Encounter Summary ---
Demographics + + + | Address | [address] | | | [place] [address] | + + + | Home Phone | | + + + | Preferred Language | Unknown | + + + | Marital Status | Single | + + + | Sikh Affiliation | NRP | + + + | Race | White | + + + | Ethnic Group | Not or | + + + Author + + + | Author | [facility] | + + + | Organization | [facility] | + + + | Address | Unknown | + + + | Phone | Unavailable | + + + Support + + +---------+ + | Name | Relationship | Address | Phone | + + +---------+ + | Laura Allred | ECON | Unknown | | + + +---------+ + Care Team Providers + +------+ + | Care Technician Telecommunication Systems Name | Role | Phone | + +------+ + | Lauryn Stuart | PCP | | + +------+ + Encounter Details +--------+ + + + + | Date | Type | Department | Care Team | Description | +--------+ + + + + | 12/24/ | Telephone | Cardiothoracic | Heladio Francisco, | | | 2019 | | Surgery at [facility] [address] | [address] | | | | | [address] | [address] | | | | | Physician's | [place], [place] | | | | | [address], [address] floor | [address] | | | | | [place], [place] | [phone] | | | | | [address] | | | | | | [phone] | | | +--------+ + + + [...] | | | | | [place], | | | | | | [place] [address] | | | | | | [phone] | | | | | | | | +--------+---------+ + + + | 04/30/ | Office | Otolaryngology | Augustine Nolan | | | 2019 | Visit | | MD Debbie [address] [facility] | | | | | | [address] | | | | | | [place] | | | | | | [address] | | | | | | [phone] | | | | | | | | +--------+---------+ + + + documented as of this encounter Visit Diagnoses Not on filedocumented in this encounter
--- OUTSIDE RECORDS SUMMARY | ~2020-03-30 | XMS | Encounter Summary ---
Demographics + + + | Address | [address] | | | [place] [address] | + + + | Home Phone | | + + + | Preferred Language | Unknown | + + + | Marital Status | Single | + + + | Buddhist Affiliation | NRP | + + + | Race | White | + + + | Ethnic Group | Not or | + + + Author + + + | Organization | Unknown | + + + | Address | Unknown | + + + | Phone | Unavailable | + + + Support + + +---------+ + | Name | Relationship | Address | Phone | + + +---------+ + | Laura Allred | ECON | Unknown | | + + +---------+ + Care Team Providers + +------+ + | Care Telesales Professional Name | Role | Phone | + +------+ + | Lauryn Stuart | PCP | | + +------+ + Encounter Details +--------+--------+ + + + | Date | Type | Department | Care Team | Description | +--------+--------+ + + + | 10/08/ | Travel | | | | | 2020 | | | | | +--------+--------+ + + + Social History + + [...] | | | | | [place], | | | | | | [place] [address] | | | | | | [phone] | | | | | | | | +--------+---------+ + + + | 04/30/ | Office | Otolaryngology | Augustine Nolan | | | 2019 | Visit | | MD Debbie [address] | | | | | | [address] | | | | | | [place], [place] | | | | | | [address] | | | | | | [phone] | | | | | | | | +--------+---------+ + + + documented as of this encounter Visit Diagnoses Not on filedocumented in this encounter
--- OUTSIDE RECORDS SUMMARY | ~2020-03-30 | XMS | Encounter Summary ---
Demographics + + + | Address | [address] | | | [place] [address] | + + + | Home Phone | | + + + | Preferred Language | Unknown | + + + | Marital Status | Single | + + + | Baptism Affiliation | Unknown | + + + | Race | Unknown | + + + | Ethnic Group | Unknown | + + + Author + + + | Author | [facility] | | | and [place] | + + + | Organization | [facility] | | | and Jakobana [...] Team Providers + +------+ + | Care Precipitate Washer Name | Role | Phone | + [...] | [facility] | MD [address] | | | | | IMAGING [address] | [address] | | | | | [address] [place] | [place] [address] | | | | | [place] [address] | | | | | | [phone] | | | +--------+ + + + [...] | | | | | | [place] [address] | | | | | | [phone] | | | | | | | | +--------+ + + + + documented as of this encounter Procedures + +--------+ + + + | Procedure Name | Priori | Date/Time | Associated Diagnosis | Comments | | | ty | | | | + +--------+ + + + | XR CHEST AP PORTABLE | Routin | 12/04/2018 | | Results for this | | | e | 6:25 PM | | procedure are in the | | | | PDT | | results section. | + +--------+ + + + documented in this encounter Results XR Chest AP Portable (12/04/2018 6:25 PM PDT) + + | Specimen | [...]
--- OUTSIDE RECORDS SUMMARY | ~2020-03-30 | XMS | Encounter Summary ---
Demographics + + + | Address | [address] | | | [place] [address] | + + + | Home Phone | | + + + | Preferred Language | Unknown | + + + | Marital Status | Single | + + + | Yarsani Affiliation | Unknown | + + + | Race | Unknown | + + + | Ethnic Group | Unknown | + + + Author + + + | Author | [facility] | | | and [place]ana | + + + | Organization | [facility] [...] Team Providers + +------+ + | Care Clinical Faculty Name | Role | Phone | + [...] | | ANNELISE [address] | [place] [address] | | | | | [place] [address] | | | | | | [phone] | | | +--------+ + + + [...] | | | | | [place] [address] | | | | | | [phone] | | | | | | | | +--------+ + + + + documented as of this encounter Procedures + +--------+ + + + | Procedure Name | Priori | Date/Time | Associated Diagnosis | Comments | | | ty | | | | + +--------+ + + + | XR CHEST AP PORTABLE | Routin | 12/06/2018 | | Results for this | | | e | 6:00 PM | | procedure are in the | | | | PDT | | results section. | + +--------+ + + + documented in this encounter Results XR Chest AP Portable (12/06/2018 6:00 PM PDT) + + | Specimen | [...]
--- OUTSIDE RECORDS SUMMARY | ~2020-03-30 | XMS | Clinical Summary ---
Demographics + + + | Address | [address] | | | [place] [address] | + + + | Home Phone | | + + + | Preferred Language | Unknown | + + + | Marital Status | Single | + + + | Congregational Affiliation | Unknown | + + + | Race | Unknown | + + + | Ethnic Group | Unknown | + + + Author + + + | Author | [facility] | | | and [place] | + + + | Organization | [facility] | | | and [...] Team Providers + +------+ + | Care Organizational Effectiveness Consultant Name | Role | Phone | + +------+ + | Lauryn Stuart PA-C | PCP | | + +------+ + Allergies + + + + + + | Active Allergy | Reactions | Severity | Noted | Comments | | | | | Date | | + + + + + + | Adhesive & Tape | Dermatitis | Medium | 01/31/20 | | | | | | 19 | | + + + + + [...] | | + + + +---------+------+------+-------+ | acetaminophen | Take 325-650 mg by | | 0 | 04/2 | | Activ | | (TYLENOL) 325 mg | mouth every 6 hours | | | / | | e | | tablet | as needed. | | | 19 | | | + + + +---------+------+------+-------+ | cilostazol | Take 50 mg by mouth | | 0 | 03/2 | | Activ | | (PLETAL) 50 mg | Daily. | | | 01/06 | | e | | tablet | | | | 19 | | | + + + +---------+------+------+-------+ | cyanocobalamin | Take 500 mcg by | | 0 | | | Activ | | (VITAMIN B-12) 1000 | mouth Daily. | | | | | e | | MCG tablet | | | | | | | + + + +---------+------+------+-------+ | estradiol | Take 2 mg by mouth | | 0 | 12/0 | | Activ | | (ESTRACE) 2 MG | Daily. | | | 05/09 | | e | | tablet | | | | 14 | | | + + + +---------+------+------+-------+ | lansoprazole | Take 30 mg by mouth | | 0 | 12/0 | | Activ | | (PREVACID) [address] | Daily. | | | 05/09 | | e | | capsule | | | | 14 | | | + + + +---------+------+------+-------+ | levothyroxine | Take 50 mcg by mouth | | 0 | 03/0 | | Activ | | (SYNTHROID) 50 mcg | Daily. | | | 5/20 | | e | | tablet | | | | 19 | | | + + + +---------+------+------+-------+ | ondansetron | One tablet twice a | 40 | 1 | 06/1 | | Activ | | (ZOFRAN ODT) 8 mg | day for two days | tablet | | 3/20 | | e | | disintegrating | after chemotherapy | | | 19 | | | | tablet | to block nausea | | | | | | + + + +---------+------+------+-------+ | buPROPion | Take 300 mg by mouth | | 0 | 06/2 | | Activ | | (WELLBUTRIN XL) 300 | every morning. | | | 5/20 | | e | | mg 24 hr tablet | | | | 19 | | | + + + +---------+------+------+-------+ | ALPRAZolam (XANAX) | Take 1 tablet by | 90 | 2 | 10/0 | | Activ | | 0.5 mg tablet | mouth nightly as | tablet | | 1/20 | | e | | | needed (taking every | | | 19 | | | | | night.). | | | | | | + + + +---------+------+------+-------+ | doxycycline | Take 1 capsule by | | 0 | 12/2 | | Activ | | (VIBRAMYCIN) 100 mg | mouth 2 times daily. | | | 0/20 | | e | | capsule | | | | 19 | | | + + + +---------+------+------+-------+ | Arginine 500 MG | Take 2 capsules by | | 0 | | | Activ | | CAPS | mouth 2 times daily. | | | | | e | + + + +---------+------+------+-------+ | nicotine | Take 2 mg by mouth | | 0 | | | Activ | | (NICORETTE) 2 mg gum | as needed. | | | | | e | + + + +---------+------+------+-------+ | acyclovir | Take 400 mg by mouth | | 0 | 12/2 | | Activ | | (ZOVIRAX) 400 MG | Daily. | | | 0/20 | | e | | tablet | | | | 19 | | | + + + +---------+------+------+-------+ | Multiple | Take 1 tablet by | | 0 | | | Activ | | Vitamins-Iron | mouth Daily. | | | | | e | | (DAILY-EVANGELINA/IRON/BET | | | | | | | | A-CAROTENE PO) | | | | | | | + + + +---------+------+------+-------+ | Multiple | Take 1 tablet by | | 0 | | | Activ | | Vitamins-Minerals | mouth Daily. | | | | | e | | (HAIR SKIN AND NAILS | | | | | | | | FORMULA PO) | | | | | | | + + + +---------+------+------+-------+ | oxyCODONE | Take 1 tablet by | | 0 | 02/2 | | Activ | | (ROXICODONE) 5 mg | mouth every 4 hours | | | 1/20 | | e | | tablet | as needed. (Take 1-3 | | | 20 | | | | | tablets by mouth | | | | | | | | every four hours as | | | | | | | | needed for moderate | | | | | | | | pain or severe pain) | | | | | | + + + +---------+------+------+-------+ | docusate-senna | Take 1 tablet by | | 0 | | | Activ | | (SENOKOT-S) 50-8.6 | mouth Daily. | | | | | e | | mg per tablet | | | | | | | + + + +---------+------+------+-------+ | oxymetazoline | Apply 1 Dose | | 0 | | | Activ | | (RHOFADE) 1% cream | topically Daily. | | | | | e | + + + +---------+------+------+-------+ | ferrous sulfate | Take 28 mg by mouth | | 0 | | | Activ | | (IRON) 28 MG TABS | Daily. | | | | | e | + + + +---------+------+------+-------+ | Misc Natural | Take by mouth. | | 0 | | | Activ | | Products (HIMALAYAN | | | | | | e | | GOJI PO) | | | | | | | + + + +---------+------+------+-------+ | UNABLE TO FIND | Sero Vital | | 0 | | | Activ | | | | | | | | e | + + + +---------+------+------+-------+ | | Take one to two | 150 | 0 | 05/0 | | Activ | | HYDROcodone-acetamin | tablets orally every | tablet | | 4/20 | | e | | ophen (NORCO) | 6 hours as needed | | | 20 | | | | 7.5-325 mg per | for pain, maximum 6 | | | | | | | tabletIndications: | tablets a day. | | | | | | | Malignant neoplasm | | | | | | | | of hilus of lung, | | | | | | | | unspecified | | | | | | | | laterality (HCC) | | | | | | | + + + +---------+------+------+-------+ | fentaNYL | Place 1 patch onto | 10 | 0 | 05/1 | | Activ | | (DURAGESIC) 25 | the skin every 72 | patch | | 8/20 | | e | | mcg/hrIndications: | hours. 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 Topical fentanyl with then be tapered off. | + + + + + | Dysphonia | 09/15/2019 | + + + | Anemia due to chemotherapy | 05/05/2019 | + + + | Hypophosphatemia | 12/08/2018 | + + + + + | Overview: Last Assessment & Plan: Profound hypophosphatemia | | after TF started concerning for refeeding syndrome- Ok to restart | | feeds- Check lytes q12h | |- Check lytes q12h | + + + + + | Acute respiratory distress syndrome (ARDS) | 12/07/2018 | + + + | Paralysis of left vocal fold | 12/07/2018 | + + + + + | Overview: Last Assessment & Plan: Due to resection of L | | recurrant laryngeal nerve during surgery because of location to | | lymph node. ENT evaluated on 12/05- ENT will re-evaluate airway | | early next week."- If voice, breathing, or swallowing are worse, | | will plan for injection medialization thyroplasty of the left | | true vocal fold, otherwise we will continue to observe | | - Injection laryngoplasty can be done in our clinic with Dr. Bhavik Kaplan next week as an inpatient if transportation is arranged | | - If patient is discharged at an earlier date, this can | | also be done during an outpatient visit"-[facility] ENT recs this | | week-Per Thoracic fellow ok to rechallenge swallow if ok from | | ICU's perspective Last Assessment & Plan: Due to resection of L | | recurrant laryngeal nerve during surgery because of location to | | lymph node. ENT evaluated on 12/05- ENT will re-evaluate airway | | early next week."- If voice, breathing, or swallowing are worse, | | will plan for injection medialization thyroplasty of the left | | true vocal fold, otherwise we will continue to observe | | - Injection laryngoplasty can be done in our clinic with | | Rosaura next week as an inpatient if transportation is arranged | | - If patient is discharged at an earlier date, this can | | also be done during an outpatient visit"-[facility] ENT recs this | | week-Per Thoracic fellow ok to rechallenge swallow if ok from | | ICU's perspective | + + + + + | Acute post-operative pain | 12/04/2018 | + + + + + | Overview: Last Assessment & Plan: Epidural not placed pre-op | | because of staged approach to procedure. Pt received heparin | | during procedure because of PA involvement. APS placed epidural 4 | | hrs after heparin.- TEA per APS w bupivicaine/HM (changed from | | fentanyl)- tylenol PRN - Lidocaine patches | + + + + + | Chronic pain | 12/04/2018 | + + + | Dysphagia | 12/04/2018 | + + + + + | Overview: Last Assessment & Plan: S/p sacrifice of L | | recurrant laryngeal nerve with node resection now w concern for | | aspiration event. PEG placed on 12/07- Strict NPO- ENT performed | | [employer] scope with evidence of left vocal cord dysfunctionPer ENT: | | Injection laryngoplasty can be done in our clinic with Dr. Kaplan | | next week as an inpatient if transportation is arranged. If | | patient is discharged at an earlier date, this can also be done | | during an outpatient visit- Restart TF's now that lytes are | | optimized to goal of 55/hr | + + + + + | GERD (gastroesophageal reflux disease) | 12/04/2018 | + + + + + | Overview: Last Assessment & Plan: | | - omeprazole daily | + + + + + | Lung cancer | 12/04/2018 | + + + + + | Overview: ACTIVE DIAGNOSIS: pT2a,pN2,M0, Stage IIIA, | | adenocarcinoma of the left lung status post left upper lobectomy | | December 04, 2018.1. Current every day smoker at the time of | | diagnosis.2. Presentation with left sided neck swelling and cougn | | on October 09, 2018. Chest X-ray demonstrated a 35 mm x 18 mm | | irregular mass in the left upper lobe.3. CT chest with contrast | | on October 11, 2018 demonstrated 24 x 16 x 16 mm mass in the | | left upper lobe and a 17 x 10 x 10 mm mass in the right upper | | lobe. A 21 x 21 x 18 mm lymph node in the AP window and a 15 mm | | left hilar lymph node. 4. PET/CT scan October 23, 2018 demonstrated | | that the left upper lobe mass was FDG avid with SUV 5.96, however | | the right upper lobe mass was not, SUV 1.46. The AP window mass | | was FDG-avid with SUV 13.58 and the left hilar mass was FDG-avid | | at 2.76. In addition prevascular adenopathy was identified with | | SUV of 4.36.5. MRI of brain November 26, 2018; no evidence for | | metastatic disease.6. PFT November 26, 2018; FEV1 = 2.33 L, DLCO | | 92%.7. December 04, 2018: Flexible bronchoscopy, endobronchial | | ultrasound needle aspiration biopsy level 7 and 4 L, cervical | | mediastinoscopy, biopsy of level 7 and 4R lymph nodes, left | | thoracoscopy, left muscle-sparing thoracotomy, left upper | | lobectomy with sleeve resection of airway and pulmonary artery | | with pulmonary artery plasty with pericardial patch, mediastinal | | lymph node dissections level 5, 6, 7, 9, L, 4L and hilar lymph | | nodes ([facility]). Pathological specimen # [id number] was | | notable for a poorly differentiated adenocarcinoma, 3.2 cm with | | lymphovascular invasion (pT2a), and 13/31 lymph nodes positive | | for regionally metastatic disease (pN2). Post-operative course | | complicated by left vocal cord paralysis, necessitating temporary | | placement of a G-tube.8. Cycle #1 pemetrexed/carboplatin on January | | 2018.9. Cycle #2 pemetrexed/carboplatin on February 27, 2019 | | concurrently with the initiation of external beam radiation | | therapy.10. MRI brain on March 14, 2019; non-specific small areas | | of enhancement in the occipital lobes bilaterally, repeat exam in | | one month recommended.11. Cycle #3 pemetrexed/carboplatin on | | March 20, 2019 with concurrent external beam radiation | | therapy.12. Ultrasound of left supraclavicular fossa; no | | supraclavicular abnormality.13. Completed adjuvant radiation | | therapy on April 04, 2019.14. Cycle #4 pemetrexed/carboplatin | | April 10, 2019.15. MRI brain on April 14, 2019; no evidence of | | metastatic disease.16. Sniff test negative for diaphragmatic | | paralysis on June 11, 2019.17. CT chest with contrast on | | July 03, 2019 interpreted as radiation pneumonitis-prednisone | | therapy started. 18. PET CT scan on July 10, 2019- No | | evidence for local recurrence or metastatic disease. 19. Left | | medialization thyroplasty implant (Augustine Nolan, [facility]) | | October 09, 2019. Last Assessment & Plan: Sussy Allred | | returned to clinic on 01/13/2020 with no one for follow-up of Lung | | Cancer, left vocal cord paralysis, and post-thoracotomy pain | | syndrome.Interval history; Katharina is no longer working.Review of | | systems; Breathlessness is better. Chest wall pain is still rated | | at 4/10.Physical exam; Voice is no longer hoarse.Clinical Data; | | PET/CT scan from January 08, 2020 demonstrated no evidence of | | recurrent disease.Assessment; Stage IIIA, adenocarcinoma of the | | left lung, without evidence of recurrence at one year.Left vocal | | cord paralysis, resolved following left medialization thyroplasty | | with implant.Post-thoracotomy pain syndrome-stable.Clear outline | | of the Treatment Plan; Katharina is planning to continue lung cancer | | follow up exclusively with Dr. Fiona Anne.Katharina is planning | | to transfer narcotic management to [facility]; current plan is | | topical fentanyl 25 mcg/hr, #10 for 30 days, one patch topical | | every 72 hours, and hydrocodone/APAP #150 for 30 days, with plan | | to taper quantity gradually.Timing of follow-up imaging; to be | | managed by Dr. Anne.Follow Up; follow up in medical oncology | | is open. | + + + + + | Postoperative anemia due to acute blood loss | 12/04/2018 | + + + + + | Overview: Last Assessment & Plan: | | - monitor chest tube output | | - CBC daily | + + + + + | HTN (hypertension) | 12/04/2018 | + + + + + | Overview: Last Assessment & Plan: | | - Continue home triamterene/HCTZ | + + + + + | Hand pain, right | 08/17/2016 | + + + | Backache | 08/17/2016 | + + + | Cervicalgia | 05/07/2014 | + + + | Pain medication agreement signed | 12/23/2013 | + + + + + | Overview: 12/23/2013 UDS obtained. | | Next [place] due 08/25/2014 | + + + + + | Diarrhea | 12/18/2012 | + + + | Abnormal weight gain | 05/15/2012 | + + + | Annual physical exam | 05/15/2012 | + + + | Carpal tunnel syndrome | 05/15/2012 | + + + | Headache | 05/15/2012 | + + + | Hypothyroidism | 05/15/2012 | + + + + + | Overview: Last Assessment & Plan: | | - levothyroxine 50 mcg PFT daily | + + + + + | IBS (irritable bowel syndrome) | 05/15/2012 | + + + | Rib pain on left side | 05/15/2012 | + + + Resolved Problems + + + + | Problem | Noted | Resolved | | | Date | Date | + + + + | Aspiration pneumonitis | 12/07/19 | | | | 19 | 9 | + + + + + + | Overview: Last Assessment & Plan: Increasing oxygen | | requirements overnight from 12/05 to 12/06 with worsening ground | | glass opacities in right lung with concern for aspiration in | | setting of dysphagia.- Strict NPO, consider re consulting [employer]IST | | today pending course and ENT recs- monitor for fevers and | | worsening respiratory status- pulmonary toilet, IS- wean O2 as | | able | + + + + + + | Leukocytosis | 12/07/19 | | | | 19 | 9 | + + + + + + | Overview: Last Assessment & Plan: | | Suspect secondary to aspiration pneumonitis. Improving | | - Consider antibiotics if patient develops fever | + + Encounters +--------+ + + + + | Date | Type | Specialty | Care Team | Description | +--------+ + + + + | 01/13/ | Orders Only | Radiation Oncology | Fiona Anne | Malignant neoplasm | | 2019 | | Bhavik Parsons MD | of upper lobe of | | | | | | left lung (HCC) | | | | | | (Primary Dx) | +--------+ + + + + | 01/12/ | Hospital | Oncology | [facility] | Malignant neoplasm | | 2019 | Encounter | | Boubacar Daniels MD | of left lung, | | | | | | unspecified part of | | | | | | lung (HCC) | +--------+ + + + + | 01/07/ | Hospital | Radiology | Fiona Anne | Malignant neoplasm | | 2019 | Encounter | | MD Issa | of upper lobe of | | | | | | left lung (HCC) | +--------+ + + + + | 01/04/ | Refill | Oncology | [facility] | Medication Refill | | 2019 | | | Boubacar Daniels MD | | +--------+ + + + + | 12/28/ | Telephone | Radiation Oncology | Fiona Anne | Results, Imaging | | 2019 | | | MD Issa | | +--------+ + + + + from Last 3 Months Family History + + +------+ + | Medical History | Relation | Name | Comments | + + +------+ + | Other (see comment) | Father | | pancreatic disease, unsure if it was cancer | + + +------+ + | Macular degen | Mother | | | + + +------+ + + +------+ + + | Relation | Name | Status | Comments | + +------+ + + | Father | | | pancreatitis | + +------+ + + | Mother | | | | + +------+ + + Social History + +-------+ +--------+ [...] Comments | + + +---------+ + | Not Currently | 7 Glasses of wine | 7.0 | | + + +---------+ + + + + | Sex Assigned at | Date Recorded | | | | + + + | Not on file | | + + + Last Filed Vital Signs + + + + + | Vital Sign | Reading | Time Taken | Comments | + + + + + | Blood Pressure | 149/80 | 01/13/2020 4:27 PM | | | | | PDT | | + + + + + | Pulse | 71 | 01/13/2020 4:27 PM | | | | | PDT | | + + + + + | Temperature | 36.6 C (97.8 F) | 01/13/2020 4:27 PM | | | | | PDT | | + + + + + | Respiratory Rate | 18 | 01/13/2020 4:27 PM | | | | | PDT | | + + + + + | Oxygen Saturation | 100% | 01/13/2020 4:27 PM | | | | | PDT | | + + + + + | Inhaled Oxygen | - | - | | | Concentration | | | | + + + + + | Weight | 53.5 kg (117 lb 15.1 | 01/13/2020 4:27 PM | | | | oz) | PDT | | + + + + + | Height | 165 cm (5' 4.96") | 01/30/2019 2:26 PM | | | | | PDT | | + + + + + | Body Mass Index | 19.65 | 01/30/2019 2:26 PM | | | | | PDT | | + + + + + Plan of Treatment +--------+ + + + + | Date | Type | Specialty | Care Team | Description | +--------+ + + + + | 04/20/ | Appointment | Radiation Oncology | Rootvik, Treva | | | 2020 | | | DEISY Hernandez [address] | | | | | | [address] [place] | | | | | | [place] [address] | | | | | | [phone] | | | | | | | | +--------+ + + + + + + + + + | Health Maintenance | Due Date | Last | Comments | | | | Done | | + + + + + | Hepatitis C | | | | | Screening | 1 | | | + + + + + | Med Mgmt: TSH | | | | | | 1 | | | + + + + + | Medication | | | | | Management | 1 | | | + + + + + | Urine Drug Screening | | | | | | 7 | | | + + + + + | Colorectal Cancer | | | | | Screening | 1 | | | | (Colonoscopy) | | | | + + + + + | Breast Cancer | | | | | Screening | 6 | | | + + + + + | Vaccine: Zoster (2 | | 05/15/20 | | | of 3) | 2 | 12 | | + + + + + | Vaccine: | | | | | Pneumococcal 65+ (1 | 6 | | | | of 1 - PPSV23) | | | | + + + + + | Adult Annual | | | | | Wellness Visit | 9 | | | + + + + + | Vaccine: Influenza | | 10/11/19 | | | (#1) | 0 | 20, | | | | | 06/02/20 | | | | | 18, | | | | | 07/02/20 | | | | | 17, | | | | | Addition | | | | | al | | | | | history | | | | | exists | | + + + + + | Med Mgmt: HCT | | 05/20/20 | | | | 0 | 19, | | | | | 05/05/20 | | | | | 19, | | | | | 04/28/20 | | | | | 19, | | | | | Addition | | | | | al | | | | | history | | | | | exists | | + + + + + | Med Mgmt: HGB | | 05/20/20 | | | | 0 | 19, | | | | | 05/05/20 | | | | | 19, | | | | | 04/28/20 | | | | | 19, | | | | | Addition | | | | | al | | | | | history | | | | | exists | | + + + + + | Med Mgmt: PLT | | 05/20/20 | | | | 0 | 19, | | | | | 05/05/20 | | | | | 19, | | | | | 09/09/20 | | | | | 19, | | | | | Addition | | | | | al | | | | | history | | | | | exists | | + + + + + | Med Mgmt: WBC | | 05/20/20 | | | | 0 | 19, | | | | | 05/05/20 | | | | | 19, | | | | | 04/28/20 | | | | | 19, | | | | | Addition | | | | | al | | | | | history | | | | | exists | | + + + + + | Vaccine: | | 05/15/20 | | | Dtap/Tdap/Td (2 - | 2 | 12 | | | Td) | | | | + + + + + Procedures + +--------+ + + + | Procedure Name | Priori | Date/Time | Associated Diagnosis | Comments | | | ty | | | | + +--------+ + + + | PET CT SKULL BASE TO | Routin | 01/08/2020 | Malignant neoplasm | Results for this | | MID THIGH | e | 1:55 PM | of upper lobe of | procedure are in the | | | | PDT | left lung (HCC) | results section. | + +--------+ + + + from Last [address] Skull Base To Mid Thigh (01/08/2020 1:55 PM PDT) + + | Specimen | + + | | + + + + + | Impressions | Performed At | + + + | Changes at and emanating from the left hilum are most consistent | [facility] | | with posttreatment related changes. This extends to include the | | | described nodular area, medially in the left apex. Stable | | | hypometabolic activity in the right apical nodule. Small layering | | | left pleural effusion. No evidence for definite local recurrence | | | or distant metastatic spread of disease. Dictated and Signed by: | | | Cleve Bourgeois MD Electronically signed: 01/09/2020 9:29 AM | | + + + + +-------- -------+ | Narrative | Perform ed At | + +-------- -------+ | Exam: PET CT | [facility] | | SKULL BASE TO MID THIGH dated 01/08/2020 10:37 AM History: lung cancer, | | | f/u abnormal CT Comparison: Chest CT 12/22/[address] 07/10/2019 | | | Technique: PET/CT imaging was performed from the skull base through | | | the proximalthighs following the uneventful intravenous administration | | | of 11.28 millicuriesof F-18 FDG. The glucose at the time of | | | injection is 107 mg/dL. Injection timeis 11:18 AM and scan start | | | time is 12:25 PM. Attenuation corrected,nonattenuation corrected, | | | and PET/CT fused data are reviewed on a multiplemodality workstation. | | | A low-dose CT is utilized for attenuation correction | | | andlocalization. This should not substitute for a diagnostic CT when | | | clinicallywarranted. Dose: CTDI = 3.36 mGy; DLP = 297.38 mGy per | | | centimeter Findings: PET/CT: Mediastinal background max SUV = 2.18 | | | (image 72). Liver background max SUV = 2.64 (image 113) CT. The | | | irregular nodular opacity in the right apex remains hypometabolic. | | | Themaximum SUV today is 1.21 compared to 1.07 on the prior study. | | | There is soft tissue thickening and pleural thickening emanating from | | | the lefthilum. This extends anterior, superior, and posterior. It | | | is associated withbronchiectasis. There is diffuse mildly increased | | | metabolic activity throughoutthis soft tissue. The maximum SUV is | | | 3.63 A similar but much less significant process is seen at the right | | | hilum. This isalso hypometabolic with a maximum SUV of about 2. | | | There is a small layering left pleural effusion. The remainder of the | | | metabolic activity is physiologic as seen within the baseof the brain, | | | oropharyngeal soft tissues, heart, mediastinum, liver, spleen,kidneys | | | and collecting system. Additional activity is also seen | | | nonfocallythroughout the musculoskeletal system and gastrointestinal | | | tract. INCIDENTALS: None of significance. | | |There is soft tissue thickening and pleural thickening emanating from the left | | |hilum. This extends anterior, superior, and posterior. It is associated with | | |bronchiectasis. There is diffuse mildly increased metabolic activity throughout | | |this soft tissue. The maximum SUV is 3.63 | | | | | |A similar but much less significant process is seen at the right hilum. This is | | |also hypometabolic with a maximum SUV of about 2. | | | | | |There is a small layering left pleural effusion. | | | | | |The remainder of the metabolic activity is physiologic as seen within the base | | |of the brain, oropharyngeal soft tissues, heart, mediastinum, liver, spleen, | | |kidneys and collecting system. Additional activity is also seen nonfocally | | |throughout the musculoskeletal system and gastrointestinal tract. | | | | | |INCIDENTALS: None of significance. | | | | | + +-------- -------+ + + | Procedure Note | + + | Cristhian, Rad Results In - 01/09/2020 9:32 AM PDT Exam: PET CT SKULL BASE TO MID THIGH | | dated 01/08/2020 10:37 AMHistory: lung cancer, f/u abnormal CTComparison: Chest CT | | 12/22/[address] 07/10/2019Technique: PET/CT imaging was performed from the skull base | | through the proximalthighs following the uneventful intravenous administration of 11.28 | | millicuriesof F-18 FDG. The glucose at the time of injection is 107 mg/dL. Injection | | timeis 11:18 AM and scan start time is 12:25 PM. Attenuation corrected,nonattenuation | | corrected, and PET/CT fused data are reviewed on a multiplemodality workstation. A | | low-dose CT is utilized for attenuation correction andlocalization. This should not | | substitute for a diagnostic CT when clinicallywarranted.Dose: CTDI = 3.36 mGy; DLP = | | 297.38 mGy per centimeterFindings:PET/CT: Mediastinal background max SUV = 2.18 (image | | 72).Liver background max SUV = 2.64 (image 113) CT.The irregular nodular opacity in the | | right apex remains hypometabolic. Themaximum SUV today is 1.21 compared to 1.07 on the | | prior study. There is soft tissue thickening and pleural thickening emanating from the | | lefthilum. This extends anterior, superior, and posterior. It is associated | | withbronchiectasis. There is diffuse mildly increased metabolic activity throughoutthis | | soft tissue. The maximum SUV is 3.63A similar but much less significant process is | | seen at the right hilum. This isalso hypometabolic with a maximum SUV of about 2.There | | is a small layering left pleural effusion.The remainder of the metabolic activity is | | physiologic as seen within the baseof the brain, oropharyngeal soft tissues, heart, | | mediastinum, liver, spleen,kidneys and collecting system. Additional activity is also | | seen nonfocallythroughout the musculoskeletal system and gastrointestinal | | tract.INCIDENTALS: None of significance.IMPRESSION: Changes at and emanating from the | | left hilum are most consistent withposttreatment related changes. This extends to | | include the described nodulararea, medially in the left apex.Stable hypometabolic | | activity in the right apical nodule.Small layering left pleural effusion.No evidence for | | definite local recurrence or distant metastatic spread ofdisease.Dictated and Signed | | by: Cleve Bourgeois MD Electronically signed: 01/09/2020 9:29 AM | | | |There is soft tissue thickening and pleural thickening emanating from the left | |hilum. This extends anterior, superior, and posterior. It is associated with | |bronchiectasis. There is diffuse mildly increased metabolic activity throughout | |this soft tissue. The maximum SUV is 3.63 | | | |A similar but much less significant process is seen at the right hilum. This is | |also hypometabolic with a maximum SUV of about 2. | | | |There is a small layering left pleural effusion. | | | |The remainder of the metabolic activity is physiologic as seen within the base | |of the brain, oropharyngeal soft tissues, heart, mediastinum, liver, spleen, | |kidneys and collecting system. Additional activity is also seen nonfocally | |throughout the musculoskeletal system and gastrointestinal tract. | | | |INCIDENTALS: None of significance. | | | |IMPRESSION: | | | |Changes at and emanating from the left hilum are most consistent with | |posttreatment related changes. This extends to include the described nodular | |area, medially in the left apex. | | | |Stable hypometabolic activity in the right apical nodule. | | | |Small layering left pleural effusion. | | | |No evidence for definite local recurrence or distant metastatic spread of | |disease. | | | |Dictated and Signed by: Cleve Bourgeois MD | | Electronically signed: 01/09/2020 9:29 AM | + + + +---------+ + + | Performing | Address | City/State/Zipcode | Phone Number | | Organization | | | | + +---------+ + + | [facility] | | | | + +---------+ + + from Last 3 Months Insurance + +--------+ +--------+ +---------+--------+ | Payer | Benefi | Subscriber | Effect | Phone | Address | Type | | | t Plan | ID | david | | | | | | / | | Dates | | | | | | Group | | | | | | + +--------+ +--------+ +---------+--------+ | MEDICARE | MEDICA | [id number] | 04/20/20 | [phone] | | Medica | | | RE | | 18-Pre | 5 | | re | | | PART A | | sent | | | | + +--------+ +--------+ +---------+--------+ | AETNA | AETNA | [id number] | 08/20/19 | | | PPO | | | PPO | | 19-Pre | | | | | | | | sent | | | | + +--------+ +--------+ +---------+--------+ + +--------+ +--------+ + + | Guarantor Name | Accoun | Relation to | Date | Phone | Billing Address | | | t Type | Patient | of | | | | | | | | | | + +--------+ +--------+ + + | Sussy Allred | Person | Self [birth year] | [address] | | | al/Fam | | 1950 | [phone] | [address] [place], [place] | | | [place] | | | 7 (Home) | [address] | + +--------+ +--------+ + + | Sussy Allred | Person | Self | [birth year] | [address] | | | al/Fam | | 1950 | [phone] | [address] [place], [place] | | | [place] | | | 7 (Home) | [address] | + +--------+ +--------+ + + Advance Directives + + + + + | Type | Date Recorded | Patient | Explanation | | | | 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
--- OUTSIDE RECORDS SUMMARY | ~2020-03-30 | XMS | Encounter Summary ---
Demographics + + + | Address | [address] | | | [place] [address] | + + + | Home Phone | | + + + | Preferred Language | Unknown | + + + | Marital Status | Single | + + + | Hindu Affiliation | Unknown | + + + | Race | Unknown | + + + | Ethnic Group | Unknown | + + + Author + + + | Author | [facility] | | | and Jakobana | + + + | Organization | [facility] | | | and [...] Team Providers + +------+ + | Care Category Development Manager Name | Role | Phone | [...] neoplasm of | Boubacar Daniels, | [place] | | | | | unspecified | MD [address] | [place], | | | | | part of | [place] | [place] [address] | | | | | unspecified | [address] | Phone: | | | | | bronchus or | [place], | [phone] | | | | | lung (HCC) | [place] [address] | Fax: | | | | | Procedures | Phone: | [phone] | | | | | MA VITAMIN | [phone] | | | | | | B12 | Fax: | | | | | | INJECTION, | [phone] | | | | | | [address] | | | | | | | ONDANSETRON | | | | | | | ORAL MA | | | | | | | ORAL | | | | | | | DEXAMETHASON | | | | | | | E, .25 MG | | | | | | | MA INJ., | | | | | | | APREPITANT, | | | | | | | 1 MG MA | | | | | | | PEMETREXED | | | | | | | INJECTION, | | | | | | | 10 MG MA | | | | | | | CARBOPLATIN | | | | | | | INJECTION, | | | | | | | 50 MG MA | | | | | | | ADRENALIN | | | | | | | EPINEPHRINE | | | | | | | INJECT, .1 | | | | | | | MG MA | | | | | | | DIPHENHYDRAM | | | | | | | INE HCL | | | | | | | INJECTIO, 50 | | | | | | | MG MA | | | | | | | METHYLPREDNI | | | | | | | SOLONE | | | | | | | INJECTION, | | | | | | | 125 MG MA | | | | | | | ALBUTEROL | | | | | | | COMP CON, 1 | | | | | | | MG MA | | | | | | | ALBUTEROL | | | | | | | NON-COMP | | | | | | | CON, 1 MG | | | | | | | MA | | | | | | | INJECTION, | | | | | | | FAMOTIDINE, | | | | | | | 20 MG MA | | | | | | | NORMAL | | | | | | | SALINE | | | | | | | SOLUTION | | | | | | | INFUS, 500 | | | | | | | ML MA | | | | | | | NORMAL | | | | | | | SALINE | | | | | | | SOLUTION | | | | | | | INFUS, 250 | | | | | | | ML MA | | | | | | | STERILE | | | | | | | WATER/SALINE | | | | | | | , 10 ML MA | | | | | | | CHEMOTHER, | | | | | | | IV PUSH,EA | | | | | | | ADD DRUG MA | | | | | | | CHEMOTHER, | | | | | | | IV INFUSION, | | | | | | | 1 HR MA | | | | | | | CHEMOTHER, | | | | | | | IV INFUSION, | | | | | | | EA HR MA | | | | | | | CHEMOTHER,NO | | | | | | | N-HORMONE | | | | | | | ANTI-NEOPL, | | | | | | | SUB-Q/IM MA | | | | | | | CHEMOTHER | | | | | | | HORMON | | | | | | | ANTINEOPL | | | | | | | SUB-Q/IM MA | | | | | | | | | | | | | | PALONOSETRON | | | | | | | HCL, 25 MCG | | | +--------+--------+ + + + + Encounter Details +--------+ + + + + | Date | Type | Department | Care Team | Description | +--------+ + + + + | 04/10/ | Hospital | [facility] | Fiona Anne | Malignant neoplasm | | 2019 | Encounter | MED CTR CHE[facility] | MD Issa [address] | of upper lobe of | | | | INFUSION [address] [place], [place] | left lung (HCC) | | | | [place], | [address] | (Primary Dx) | | | | [place] [address] | | | | | | [phone] | | | +--------+ + + + [...] | 100 | 0 | 01/31/20 | 09/21/201 | | tablet | mouth Daily for [...] documented as of this encounter Progress Notes Perla Duenas RN - 04/10/2019 3:43 PM PDTPatient discharged ambulatory with family t o home, verified that patient had prescribed medications at home, AVS with future appointmen ts provided to patient and reviewed with patient. Patient to return tomorrow for fluids, per ipheral IV left in place will be removed tomorrow. documented in this encounter Miscellaneous Notes Addendum Note - Perla Duenas RN - 04/14/2019 2:03 PM PDT Encounter addended by: Emiliana Duenas RN on: 04/14/2019 14:03 Actions taken: MAR administration accepted reatment Plan - Tawny Thomas RN - 04/10/2019 1:34 PM PDT Viewed chart for weight, vital signs and lab results. Also viewed chart for completion of m edication and allergy review prior to treatment.aTwny Thomas RNDATE/TIME: 04/10/2019 13 :34 documented in th is encounter Plan of Treatment +--------+ + + + + | Date | Type | Specialty | Care Team | Description | +--------+ + + + + | 04/20/ | Appointment | Radiation Oncology | Treva Ortega | | | 2020 | | | DEISY Hernandez [address] | | | | | | [address] | | | | | | [place] [address] | | | | | | [phone] | | | | | | | | +--------+ + + + + documented as of this encounter Procedures + +--------+ + + + | Procedure Name | Priori | Date/Time | Associated Diagnosis | Comments | | | ty | | | | + +--------+ + + + | CBC WITH | STAT | 04/10/2019 | Malignant neoplasm | Results for this | | DIFFERENTIAL | | 12:19 PM | of upper lobe of | procedure are in the | | | | PDT | left lung (HCC) | results section. | + +--------+ + + + | COMPREHENSIVE | STAT | 04/10/2019 | Malignant neoplasm | Results for this | | METABOLIC PANEL | | 12:19 PM | of upper lobe of | procedure are in the | | | | PDT | left lung (HCC) | results section. | + +--------+ + + + documented in this encounter Results CBC with Differential (04/10/2019 12:19 PM PDT) + + + + + + | Component | Value | Ref Range | Performed | Pathologist | | | | | At | Signature | + + + + + + | White Blood | 4.5 | 4.0 - 11.0 K/uL | [facility] | | | Cells | | | [facility] | | | | | | [facility] | | | | | [facility] - | | | | | | LABORATORY | | + + + + + + | Red Blood | 2.77 (L) | 3.70 - 5.20 | [facility] | | | Cells | | M/uL | [facility] | | | | | | [facility] | | | | | | [facility] - | | | | | | LABORATORY | | + + + + + + | Hemoglobin | 8.8 (L) | 11.5 - 16.0 | [facility] | | | | | g/dL | [facility] | | | | | | [facility] | | | | | | [facility] - | | | | | | LABORATORY | | + + + + + + | Hematocrit | 26.5 (L) | 34.0 - 47.0 % | [facility] | | | | | | [facility] | | | | | | [facility] | | | | | | [facility] - | | | | | | LABORATORY | | + + + + + + | MCV | 95.7 | 83.0 - 101.0 fL | [facility] | | | | | | [facility] | | | | | | [facility] | | | | | | [facility] - | | | | | | LABORATORY | | + + + + + + | MCH | 31.8 | 28.0 - 35.0 pg | [facility] | | | | | | [facility] | | | | | | [facility] | | | | | | [facility] - | | | | | | LABORATORY | | + + + + + + | MCHC | 33.2 | 32.0 - 36.0 | [facility] | | | | | g/dL | [facility] | | | | | | [facility] | | | | | | [facility] - | | | | | | LABORATORY | | + + + + + + | RDW-CV | 21.3 (H) | <15.0 % | [facility] | | | | | | [facility] | | | | | | [facility] | | | | | | [facility] - | | | | | | LABORATORY | | + + + + + + | RDW-SD | 72.5 (H) | 35.1 - 46.3 fL | [facility] | | | | | | [facility] | | | | | | [facility] | | | | | | [facility] - | | | | | | LABORATORY | | + + + + + + | Platelet | 227 | 140 - 440 K/uL | [facility] | | | Count | | | [facility] | | | | | | [facility] | | | | | | [facility] - | | | | | | LABORATORY | | + + + + + + | MPV | 8.9 | 6.5 - 12.4 fL | [facility] | | | | | | [facility] | | | | | | [facility] | | | | | | [facility] - | | | | | | LABORATORY | | + + + + + + | % | 86.4 (H) | 45.0 - 82.0 % | [facility] | | | Neutrophils | | | [facility] | | | | | | [facility] | | | | | | [facility] - | | | | | | LABORATORY | | + + + + + + | % | 6.0 (L) | 20.0 - 45.0 % | [facility] | | | Lymphocytes | | | [facility] | | | | | | [facility] | | | | | | [facility] - | | | | | | LABORATORY | | + + + + + + | % Monocytes | 6.7 | 4.0 - 12.0 % | [facility] | | | | | | [facility] | | | | | | [facility] | | | | | | [facility] - | | | | | | LABORATORY | | + + + + + + | % | 0.0 | 0.0 - 5.0 % | [facility] | | | Eosinophils | | | [facility] | | | | | | [facility] | | | | | | CENTER - | | | | | | LABORATORY | | + + + + + + | % Basophils | 0.2 | 0.0 - 1.0 % | [facility] | | | | | | [facility] | | | | | | [facility] | | | | | | [facility] - | | | | | | LABORATORY | | + + + + + + | % Immature | 0.7 (H)Comment: | 0.0 - 0.4 % | [facility] | | | Granulocyte | Preliminary studies have | | [facility] | | | s | indicated the IG% | | MEDICAL | | | | and/or IG# show promise | | CENTER - | | | | as an early indicator | | LABORATORY | | | | for infection. | | | | + + + + + + | Absolute | 3.89 | 1.80 - 8.50 | [facility] | | | Neutrophils | | K/uL | [facility] | | | | | | [facility] | | | | | | CENTER - | | | | | | LABORATORY | | + + + + + + | Absolute | 0.27 (L) | 0.60 - 3.20 | [facility] | | | Lymphocytes | | K/uL | [facility] | | | | | | [facility] | | | | | | CENTER - | | | | | | LABORATORY | | + + + + + + | Absolute | 0.30 | 0.00 - 1.00 | [facility] | | | Monocytes | | K/uL | [facility] | | | | | | [facility] | | | | | | [facility] - | | | | | | LABORATORY | | + + + + + + | Absolute | 0.00 | 0.00 - 0.40 | [facility] | | | Eosinophils | | K/uL | [facility] | | | | | | [facility] | | | | | | CENTER - | | | | | | LABORATORY | | + + + + + + | Absolute | 0.01 | 0.00 - 0.10 | [facility] | | | Basophils | | K/uL | [facility] | | | | | | [facility] | | | | | | CENTER - | | | | | | LABORATORY | | + + + + + + | Absolute | 0.03 | 0.00 - 0.03 | [facility] | | | Immature | | K/uL | [facility] | | | Granulocyte | | | MEDICAL | | | s | | | CENTER - | | | | | | LABORATORY | | + + + + + + | % nRBC | 0 | 0 - 2 per 100 | [facility] | | | | | WBCs | [facility] | | | | | | [facility] | | | | | | CENTER - | | | | | | LABORATORY | | + + + + + + | Absolute | 0.00 | 0.00 - 0.01 | [facility] | | | nRBC | | K/uL | [facility] | | | | | | [facility] | | | | | | CENTER - | | | | | | LABORATORY | | + + + + + + + + | Specimen | + + | Blood | + + + + + + + | Performing | Address | City/State/Zipcode | Phone Number | | Organization | | | | + + + + + | [facility] | [address] | [place] | [phone] | | [facility] | | [address] | | | - LABORATORY | | | | + + + + + Comprehensive Metabolic Panel (04/10/2019 12:19 PM PDT) + + + + + + | Component | Value | Ref Range | Performed | Pathologist | | | | | At | Signature | + + + + + + | Na | 133 (L) | 136 - 145 | [facility] | | | | | mmol/L | [facility] | | | | | | MED[facility] | | | | | | CENTER - | | | | | | LABORATORY | | + + + + + + | K | 3.9 | 3.4 - 5.1 | [facility] | | | | | mmol/L | [facility] | | | | | | [facility] | | | | | | CENTER - | | | | | | LABORATORY | | + + + + + + | Cl | 103 | 98 - 107 mmol/L | [facility] | | | | | | [facility] | | | | | | [facility] | | | | | | CENTER - | | | | | | LABORATORY | | + + + + + + | CO2 | 21 | 20 - 31 mmol/L | [facility] | | | | | | [facility] | | | | | | [facility] | | | | | | CENTER - | | | | | | LABORATORY | | + + + + + + | Anion Gap | 9 | 3 - 16 mmol/L | [facility] | | | | | | [facility] | | | | | | [facility] | | | | | | CENTER - | | | | | | LABORATORY | | + + + + + + | Glucose | 96 | 60 - 106 mg/dL | [facility] | | | | | | [facility] | | | | | | [facility] | | | | | | CENTER - | | | | | | LABORATORY | | + + + + + + | BUN | 7 (L) | 9 - 23 mg/dL | [facility] | | | | | | [facility] | | | | | | [facility] | | | | | | CENTER - | | | | | | LABORATORY | | + + + + + + | Creatinine | 0.71 | 0.55 - 1.02 | [facility] | | | | | mg/dL | [facility] | | | | | | [facility] | | | | | | CENTER - | | | | | | LABORATORY | | + + + + + + | eGFR, | >60Comment: GLOMERULAR | >=60 | [facility] | | | non- | FILTRATION | mL/min/1.73m2 | [facility] | | | [place] | RATE,ESTIMATED | | MEDICAL | | | | mL/min/1.79t8Ivtj than | | CENTER - | | | | 60 Chronic kidney | | LABORATORY | | | | disease,if found over a | | | | | | 3-month period.Less than | | | | | | 15 Kidney failureFor | | | | | | | | | | | | Americans,multiply the | | | | | | calculated GFR by 1.21. | | | | | | | | | | + + + + + + | Calcium | 9.9 | 8.7 - 10.4 | [facility] | | | | | mg/dL | [facility] | | | | | | [facility] | | | | | | CENTER - | | | | | | LABORATORY | | + + + + + + | Albumin | 4.3 | 3.2 - 4.8 g/dL | [facility] | | | | | | [facility] | | | | | | [facility] | | | | | | CENTER - | | | | | | LABORATORY | | + + + + + + | Bilirubin | 0.3 | 0.3 - 1.2 mg/dL | [facility] | | | Total | | | [facility] | | | | | | [facility]ICAL | | | | | | CENTER - | | | | | | LABORATORY | | + + + + + + | Total | 7.0 | 5.7 - 8.2 g/dL | [facility] | | | Protein | | | [facility] | | | | | | [facility] | | | | | | CENTER - | | | | | | LABORATORY | | + + + + + + | AST | 35 (H) | 0 - 34 U/L | [facility] | | | | | | [facility] | | | | | | [facility] | | | | | | CENTER - | | | | | | LABORATORY | | + + + + + + | ALT | 16 | 10 - 49 U/L | [facility] | | | | | | [facility] | | | | | | [facility]ICAL | | | | | | CENTER - | | | | | | LABORATORY | | + + + + + + | Alkaline | 87 | 46 - 116 U/L | [facility] | | | Phosphatase | | | [facility] | | | | | | MEDICAL | | | | | | CENTER - | | | | | | LABORATORY | | + + + + + + | Globulin | 2.7 | 2.1 - 3.8 g/dL | [facility] | | | | | | [facility] | | | | | | [facility]ICAL | | | | | | CENTER - | | | | | | LABORATORY | | + + + + + + | Albumin/Sophia | 1.6 | 0.8 - 1.9 | [facility] | | | bulin Ratio | | | [facility] | | | | | | MEDICAL | | | | | | CENTER - | | | | | | LABORATORY | | + + + + + + | BUN/Creatin | 9.9 | | [facility] | | | ine Ratio | | | [facility] | | | | | | MEDICAL | | | | | | CENTER - | | | | | | LABORATORY | | + + + + + + + + | Specimen | + + | Blood | + + + + + + + | Performing | Address | City/State/Zipcode | Phone Number | | Organization | | | | + + + + + | [facility] | [address] | [place], [place] | [phone] | | [facility] | | [address] | | | - LABORATORY | | | | + + + [...] | aprepitant (CINVANTI) injection | Given | 04/10/20 | 130 mg | | | | 130 mg 130 mg, IV Push, ONCE, | | 19 1:51 | | | | | Jenniffer 04/10/19 at 1345, For 1 dose, | | PM PDT | | | | | Administer 30 minutes prior to | | | | | | | chemotherapy. Administer slowly | | | | | | | over 2 minutes, | | | | | | + +--------+ +--------+------+------+ +---+---+ | | | +---+---+ + +---------+ + +--------+---+ | CARBOplatin (PARAPLATIN) 447.5 | New Bag | 04/10/20 | 447.5 mg | 544.8 | | | mg in sodium chloride 0.9% 500 mL | | 19 2:27 | | mL/hr | | | infusion 447.5 mg (Target AUC = | | PM PDT | | | | | 5), Intravenous, Administer over | | | | | | | 60 Minutes, ONCE, [facility] 04/10/19 at | | | | | | | 1415, For 1 dose, Chemotherapy: | | | | | | | Use appropriate handling | | | | | | | precautions., | | | | | | + +---------+ + +--------+---+ +---+---+ | | | +---+---+ + +-------+ +--------+---+ + | cyanocobalamin (VITAMIN B-12) | Given | 04/10/20 | 1,000 | | Deltoid- | | injection 1,000 mcg 1,000 mcg, | | 19 2:02 | mcg | | Right | | Intramuscular, ONCE, [facility] 04/10/19 | | PM PDT | | | | | at 1345, For 1 dose, Administer | | | | | | | every 9 weeks starting 1-2 weeks | | | | | | | before the 1st dose of | | | | | | | PEMEtrexed., | | | | | | + +-------+ +--------+---+ + +---+---+ | | | +---+---+ + +-------+ +------+---+---+ | dexamethasone (DECADRON) tablet | Given | 04/10/20 | 4 mg | | | | 4 mg 4 mg, Oral, ONCE, [facility] | | 19 1:47 | | | | | 04/10/19 at 1345, For 1 dose, | | PM PDT | | | | | Administer 30 minutes prior to | | | | | | | chemotherapy., | | | | | | + +-------+ +------+---+---+ +---+---+ | | | +---+---+ + +-------+ +-------+---+---+ | heparin 100 units/mL flush | Given | 04/10/20 | 500 | | | | injection 500 Units 500 Units (5 | | 19 3:37 | Units | | | | mL), Intracatheter, PRN, Line | | PM PDT | | | | | Care, Starting [facility] 8/22/19 at | | | | | | | 1446 | | | | | | + +-------+ +-------+---+---+ +---+---+ | | | +---+---+ + +-------+ +--------+---+---+ | HYDROmorphone (DILAUDID) | Given | 04/10/20 | 0.8 mg | | | | injection 0.8 mg 0.8 mg, | | 19 3:40 | | | | | Intravenous, EVERY 1 HOUR PRN, | | PM PDT | | | | | Pain, Starting [facility] 04/10/19 at | | | | | | | 1332 | | | | | | + +-------+ +--------+---+---+ +-------+ +--------+---+---+ | Given | 04/10/20 | 0.8 mg | | | | | 19 1:53 | | | | | | PM PDT | | | | +-------+ +--------+---+---+ +---+---+ | | | +---+---+ + +-------+ +---------+---+---+ | palonosetron (ALOXI) injection | Given | 04/10/20 | 0.25 mg | | | | 0.25 mg 0.25 mg, Intravenous, | | 19 1:47 | | | | | ONCE, [facility] 04/10/19 at 1345, For 1 | | PM PDT | | | | | dose, [...] 800 mg in | New Bag | 04/10/20 | 800 mg | 600 | | | sodium chloride 0.9% 100 mL | | 19 2:13 | | mL/hr | | | infusion 800 mg (rounded from | | PM PDT | | | | | 785 mg = 500 mg/m2 | | | | | | | 1.57 m2 Treatment plan recorded | | | | | | | BSA), Intravenous, Administer | | | | | | | over 10 Minutes, ONCE, [facility] | | | | | | | 04/10/19 at 1400, For 1 dose, | | | | | | | Chemotherapy: Use appropriate | | | | | | | handling precautions., | | | | | | + +---------+ +--------+-------+---+ +---+---+ | | | +---+---+ documented in this encounter"
--- OUTSIDE RECORDS SUMMARY | ~2020-03-30 | XMS | Encounter Summary ---
Demographics + + + | Address | [address] | | | [place] [address] | + + + | Home Phone | | + + + | Preferred Language | Unknown | + + + | Marital Status | Single | + + + | Orthodoxy Affiliation | Unknown | + + + | Race | Unknown | + + + | Ethnic Group | Unknown | + + + Author + + + | Author | [facility] | | | and Jakobana | + + + | Organization | [facility] | | | and [...] Team Providers + +------+ + | Care Banquet Stewardess Name | Role | Phone | + +------+ + | Lauryn Stuart PA-C | PCP | | + +------+ + Encounter Details +--------+ + + + + | Date | Type | Department | Care Team | Description | +--------+ + + + + | 03/11/ | Imaging | [facility] | Provider, | | | 2019 | Exam | [facility] | MD [address] [address] | | | | | IMAGING [address] | [address]. | | | | | [address] [place] | [place] [address] | | | | | [place] [address] | | | | | | [phone] | | | +--------+ + + + [...] | | | | | | [place] [address] | | | | | | [phone] | | | | | | | | +--------+ + + + + documented as of this encounter Procedures + +--------+ + + + | Procedure Name | Priori | Date/Time | Associated Diagnosis | Comments | | | ty | | | | + +--------+ + + + | PET CT SKULL BASE TO | Routin | 10/23/2018 | | Results for this | | MID THIGH | e | 12:00 AM | | procedure are in the | | | | PST | | results section. | + +--------+ + + + documented in this encounter Results PET CT Skull Base To Mid Thigh (10/23/2018 12:00 AM PST) + + | Specimen | + + [...]
--- OUTSIDE RECORDS SUMMARY | ~2020-03-30 | XMS | Encounter Summary ---
Demographics + + + | Address | [address] | | | [place] [address] | + + + | Home Phone [...] | Author | [facility] | | | and Jakobana | + + + | Organization | [facility] | | | and Jakobana [...] Team Providers + +------+ + | Care Contact Center Assistant Name | Role | Phone | + +------+ + | Lauryn Stuart PA-C | PCP | | + +------+ + Reason for Visit + +--------+ + | Reason | Onset | Comments | | | Date | | + +--------+ + | Medication Refill | 08/11/ | | | | 2019 | | + +--------+ + Encounter Details +--------+--------+ + + + | Date | Type | Department | Care Team | Description | +--------+--------+ + + + | 08/11/ | Refill | [facility] | Adolfo, | Medication Refill | | 2019 | | [facility] | Boubacar Daniels MD [address] | | | | | [facility] CL[facility] [address] | [facility] | | | | | [address] | [address] [place], [place] | | | | | [place] [address] | [address] | | | | | [phone] | | | +--------+--------+ + + + [...] this encounter Miscellaneous Notes Telephone Encounter - Adelita Elizalde RN - 08/11/2019 2:15 PM PSTPatient notified vi a voicemail. elep osei Encounter - Mirian Carroll - 08/11/2019 12:25 PM PSTJudy stopped by the office and requested refills for the following two prescription hydrocodone and fentanyl, can you pleas e let her know when they have been called in thank you. documented in this encounter Plan of Treatment [...] | | | | | | [place] [address] | | | | | | [phone] | | | | | | | | +--------+ + + + + documented as of this encounter Visit Diagnoses + + | Diagnosis | + + | Malignant neoplasm of hilus of lung, unspecified laterality (HCC) | + + documented in this encounter"
--- OUTSIDE RECORDS SUMMARY | ~2020-03-30 | XMS | Encounter Summary ---
Demographics + + + | Address | [address] | | | [place] [address] | + + + | Home Phone | | + + + | Preferred Language | Unknown | + + + | Marital Status | Single | + + + | Orthodoxy Affiliation | NRP | + + + | Race | White | + + + | Ethnic Group | Not or | + + + Author + + + | Author | [facility] | + + + | Organization | [facility] | + + + | Address | Unknown | + + + | Phone | Unavailable | + + + Support + + +---------+ + | Name | Relationship | Address | Phone | + + +---------+ + | Laura Allred | ECON | Unknown | | + + +---------+ + Care Team Providers + +------+ + | Care Electric Hoist Operator Name | Role | Phone | + +------+ + | Lauryn Stuart | PCP | | + +------+ + Encounter Details +--------+ + + + + | Date | Type | Department | Care Team | Description | +--------+ + + + + | 11/26/ | Results/Int | Pulmonary Function | | Dyspnea on exertion | | 2019 | erpretation | Lab at [facility] [address] | | (Primary Dx) | | | | [address] | | | | | | [facility] | | | | | | [place], [place] | | | | | | [address] | | | | | | [phone] | | | +--------+ + + + [...] documented as of this encounter Progress Notes Emery Calderón MD - 12/02/2018 3:55 PM PDT Refer to PFT report. doc umented in this encounter Plan of Treatment +--------+---------+ + + + | Date | Type | Specialty | Care Team | Description | +--------+---------+ + + + | 04/30/ | Office | Speech Therapy | Barbra Ramirez SLP | | | 2019 | Visit | | [address] | | | | | | [place], | | | | | | [place] [address] | | | | | | [phone] | | | | | | | | +--------+---------+ + + + | 04/30/ | Office | Otolaryngology | Augustine Nolan | | | 2019 | Visit | | MD Debbie [address] | | | | | | [address] | | | | | | [place] | | | | | | [address] | | | | | | [phone] | | | | | | | | +--------+---------+ + + + documented as of this encounter Procedures + +--------+ + + + | Procedure Name | Priori | Date/Time | Associated Diagnosis | Comments | | | ty | | | | + +--------+ + + + | TN DIFFUSING | Routin | 12/02/2018 | Dyspnea on | | | CAPACITY | e | 3:55 PM | exertion | | | | | PDT | | | + +--------+ + + + | TN SPIROMETRY TEST | Routin | 12/02/2018 | Dyspnea on | | | | e | 3:55 PM | exertion | | | | | PDT | | | + +--------+ + + + | SPIROMETRY BEFORE / | Routin | 11/26/2018 | Neoplasm | Results for this | | AFTER BRONCHODIL, | e | 1:31 PM | | procedure are in the | | PUL[facility] FUNCTION LAB | | PDT | | results section. | + +--------+ + + + documented in this encounter Visit Diagnoses + + | Diagnosis | + + | Dyspnea on exertion - Primary Other dyspnea and respiratory abnormality | + + documented in this encounter
--- OUTSIDE RECORDS SUMMARY | ~2020-03-30 | XMS | Encounter Summary ---
Demographics + + + | Address | [address] | | | [place] [address] | + + + | Home Phone | | + + + | Preferred Language | Unknown | + + + | Marital Status | Single | + + + | Yazidism Affiliation | Unknown | + + + | Race | Unknown | + + + | Ethnic Group | Unknown | + + + Author + + + | Author | [facility] | | | and Jakobana | + + + | Organization | [facility] | | | and [...] Team Providers + +------+ + | Care Cleaner Operator Name | Role | Phone | + +------+ + | Lauryn Stuart PA-C | PCP | | + +------+ + Encounter Details +--------+ + + + + | Date | Type | Department | Care Team | Description | +--------+ + + + + | 02/04/ | Orders Only | [facility] | Lucy Aguilar, | | | 2019 | | MED CTR PHARMACY | [facility] [address] | | | | | [address] | [address] [place] [address] | | | | | [place] [address] | [address] | | | | | [phone] | | | +--------+ + + + [...] documented as of this encounter Progress Notes Lucy Aguilar, [facility] - 02/04/2019 10:59 AM PDTFormatting of this note might be different fro m the original. IDT PATIENT MEDICATION/PROFILE REVIEW [facility] Pharmacy Recommendation XX--Observation only-- Khorana risk score of 4, consider education with patient regarding r isk versus benefits of VTE prophylaxis. Pharmacy Assessment: Therapy emetogenicity risk vs. supportive meds ordered: moderate/appropriate Drug interactions of concern: none Allergy/Duplicate/Contraindications/Other: none Lab-based dose adjustments suggested: none VTE Risk Factors Identified: 4 points Site of primary cancer High risk (lung) (1pt) Prechemotherapy platelet count 350K or higher (1pt) Hemoglobin level less than 10 g/dL or use of red cell growth factors (1pt) Prechemotherapy leukocyte count higher than 11K (1pt) XX__Khorana risk score=/>3 (risk of symptomatic VTE 7.1-41%): Consider education with patie nt regarding risk versus benefits of VTE prophylaxis. Cardiac toxicity risks/recommended monitoring: none Objective Data Sussy Allred is a 68 y.o. female , Wt 53.9 kg , Ht 165 cm, BSA 1.57 m2, BMI 19.8 k g/m2, Est CrCl = 78 ml/min (Epic) Allergies: Ketorolac; Adhesive & tape; and Latex Diagnosis: malignant neoplasm of upper lobe of left lung Treatment Regimen: Carboplatin & Pemetrexed back to top CP: Carboplatin & Pemetrexed Carbo-Pem: Carboplatin & Pemetrexed Example orders ? Example orders for Carboplatin (Paraplatin) and Pemetrexed (Alimta) in non-small cell brandi g cancer Variant #1, 5/500 x 6 Study Evidence Comparator Comparative Efficacy Comparative Toxicity Earl et al. 2016 (KEYNOTE-024) Phase III (C) Pembrolizumab Inferior OS Inferior HRQoL Chemotherapy ? Carboplatin (Paraplatin) AUC 5 IV over 15 to 60 minutes once on day 1, given second ? Pemetrexed (Alimta) 500 mg/m2 IV over 10 minutes once on day 1, given first Supportive medications ? (Arminda et al. 2012 contained more details): ? Dexamethasone (Decadron) 4 mg or equivalent corticosteroid PO twice per day on the day be fore, the day of, and day after each dose of pemetrexed ? Folic acid 350 to 600 mcg PO once per day, starting 1 to 2 weeks before the first dose of pemetrexed, to be taken throughout pemetrexed therapy. ? Cyanocobalamin (Vitamin B12) 1000 mcg IM once every 9 weeks, first dose 1 to 2 weeks befo re the first dose of pemetrexed, to be given throughout pemetrexed therapy 21-day cycle for up to 6 cycles Subsequent treatment ? 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 Other pertinent objective data: none Current Medications: Current Outpatient Medications on File Prior to Visit Medication Sig Dispense Refill acetaminophen (TYLENOL) 325 [...] cyanocobalamin (VITAMIN B-12) 1000 MCG tablet Take 1,000 mcg by mouth Daily. dexamethasone (DECADRON) 4 [...] 2 oz by mouth Daily. non-formulary medication Nopalea supplement ondansetron (ZOFRAN ODT) 8 mg disintegrating tablet One tablet twice a day for two days after chemotherapy to block nausea 40 tablet 1 oxyCODONE (ROXICODONE) 5 mg tablet Take 5 mg by mouth every 4 hours as needed. triamterene-hydrochlorothiazide (MAXZIDE-25) 37.5-25 mg per tablet Take 0.5 tablets by mouth Daily. No current facility-administered medications on file prior to visit. Pertinent Baseline Labs: 12/11/18 labs WBC-12.95 Hgb- 8.5 Plts- 385 Scr - 0.54 Bili- 0.5 AST- 20/15 Electronically signed by: Lucy Aguilar, RJez.,[facility];02/04/2019 12:52 documented in this en counter Plan of Treatment +--------+ + + + + | Date | Type | Specialty | Care Team | Description | +--------+ + + + + | 04/20/ | Appointment | Radiation Oncology | Treva Ortega | | | 2019 | | | DEISY Hernandez [address] | | | | | | [address] | | | | | | [place] [address] | | | | | | [phone] | | | | | | | | +--------+ + + + + documented as of this encounter Visit Diagnoses Not on filedocumented in this encounter"
--- OUTSIDE RECORDS SUMMARY | ~2020-03-30 | XMS | Encounter Summary ---
Demographics + + + | Address | [address] | | | [place] [address] | + + + | Home Phone | | + + + | Preferred Language | Unknown | + + + | Marital Status | Single | + + + | Hinduism Affiliation | Unknown | + + + | Race | Unknown | + + + | Ethnic Group | Unknown | + + + Author + + + | Author | [facility] | | | and Jakobana | + + + | Organization | [facility] | | | and Jakobana [...] Team Providers + +------+ + | Care Materials Management Supervisor Name | Role | Phone | + +------+ + | Lauryn Stuart PA-C | PCP | | + +------+ + Encounter Details +--------+ + + + + | Date | Type | Department | Care Team | Description | +--------+ + + + + | 01/23/ | Imaging | [facility] | Provider, | | | 2019 | Exam | MED [facility] EXTERNAL | MD [address] | | | | | IMAGING [address] | | | | | [address] | [place] [address] | | | | | [place] [address] | | | | | | [phone] | | | +--------+ + + + [...] | | | | | | [address] | | | | | | [place] [address] | | | | | | [phone] | | | | | | | | +--------+ + + + + documented as of this encounter Procedures + +--------+ + + + | Procedure Name | Priori | Date/Time | Associated Diagnosis | Comments | | | ty | | | | + +--------+ + + + | MRI BRAIN W WO | Routin | 11/26/2018 | | Results for this | | CONTRAST | e | 12:00 AM | | procedure are in the | | | | PDT | | results section. | + +--------+ + + + documented in this encounter Results MRI Brain w wo Contrast (11/26/2018 12:00 AM PDT) + + | Specimen | [...]
--- OUTSIDE RECORDS SUMMARY | ~2020-03-30 | XMS | Encounter Summary ---
Demographics + + + | Address | [address] | | | [place] [address] | + + + | Home Phone | | + + + | Preferred Language | Unknown | + + + | Marital Status | Single | + + + | Islam Affiliation | NRP | + + + [...] Team Providers + +------+ + | Care Local Sales Associate Name | Role | Phone | + +------+ + | Lauryn Stuart | PCP | | + +------+ + Reason for Referral Diagnostic Testing (Routine) +--------+--------+ + + + + | Status | Reason | Specialty | Diagnoses / | Referred By | Referred To | | | | | Procedures | Contact | Contact | +--------+--------+ + + + + | Closed | | Radiology | Diagnoses | Jt, | Rad Mri | | | | | Neoplasm | CARLO Allen | [facility] [address] | | | | | Procedures | [address] | | | | | MRI BRAIN | Ave | Center for | | | | | WWO CONTRAST | [place], [place] | [facility] and | | | | | [place] MRI | [address] | Healing, | | | | | BRAIN COMBO | Phone: | Building [address], | | | | | | [phone] | 3rd Floor | | | | | | Fax: | [facility] [place] | | | | | | [phone] | [address] | | | | | | | Phone: | | | | | | | [phone] | | | | | | | Fax: | | | | | | | [phone] | +--------+--------+ + + + + Reason for Visit Diagnostic Testing (Routine) +--------+--------+ + + + + | Status | Reason | Specialty | Diagnoses / | Referred By | Referred To | | | | | Procedures | Contact | Contact | +--------+--------+ + + + + | Closed | | Radiology | Diagnoses | Werle, | Rad Mri | | | | | Neoplasm | CARLO Allen | [facility] [address] | | | | | Procedures | [address] | | | | | MRI BRAIN | Ave | Center for | | | | | WWO CONTRAST | [place], [place] | [facility] and | | | | | [place] MRI | [address] | Healing, | | | | | BRAIN COMBO | Phone: | Building [address], | | | | | | [phone] | [facility] Floor | | | | | | Fax: | [place], [place] | | | | | | [phone] | [address] | | | | | | | Phone: | | | | | | | [phone] | | | | | | | Fax: | | | | | | | [phone] | +--------+--------+ + + + + Encounter Details +--------+ + + + + | Date | Type | Department | Care Team | Description | +--------+ + + + + | 11/26/ | Hospital | Radiology/Imaging | Alejandro Waters, CARLO | | | 2019 | Encounter | Lab at [facility] [address] | [address] | | | | | [facility] | [place], [place] | | | | | Health and Healing, | [address] | | | | | [address] | [phone] | | | | | Floor [place], [place] | | | | | | [address] | | | | | | [phone] | | | +--------+ + + + [...] Blood Pressure | - | - | | + + + + + | Pulse | - | - | | + + + + + | Temperature | - | - | | + + + + + | Respiratory Rate | - | - | | + + + + + | Oxygen Saturation | - | - | | + + + + + | Inhaled Oxygen | - | - | | | Concentration | | | | + + + + + | Weight | 58.1 kg (128 lb) | 11/26/2018 6:40 PM | | | | | PDT | | + + + + + | Height | - | - | | + + + + + | Body Mass Index | 25 | 11/26/2018 11:22 AM | | | | | PDT [...] [place], | | | | | | [place] [address] | | | | | | [phone] | | | | | | | | +--------+---------+ + + + | 04/30/ | Office | Otolaryngology | Augustine Nolan | | | 2020 | Visit | | MD Debbie [address] [facility] | | | | | | [address] | | | | | | [place] | | | | | | [address] | | | | | | [phone] | | | | | | | | +--------+---------+ + + + documented as of this encounter Procedures + +--------+ + + + | Procedure Name | Priori | Date/Time | Associated Diagnosis | Comments | | | ty | | | | + +--------+ + + + | MRI BRAIN WWO | Routin | 11/26/2018 | Neoplasm | Results for this | | CONTRAST | e | 7:18 PM | | procedure are in the | | | | PDT | | results section. | + +--------+ + + + documented in this encounter Results MRI BRAIN WWO CONTRAST (11/26/2018 7:18 PM PDT) + + | Specimen | + + | | + + + + + | Narrative | Performed At | + + + | EXAM: MRI BRAIN W/WO CONTRAST HISTORY: Lung cancer, evaluate for | [facility] | | metastatic disease. COMPARISON: 10/26/2018 outside PET | RADIOLOGY VOICE | | TECHNIQUE: Multiplanar multi-sequence MRI of the brain without and | RECOGNITION 2 | | with gadolinium based intravenous contrast: GADOTERATE MEGLUMINE 0.5 | | | MMOL/ML (376.9 MG/ML) INTRAVENOUS SOLUTION 12 mL FINDINGS: | | | BRAIN: No acute intracranial abnormality. Minimal periventricular | | | and a few scattered supratentorial T2/FLAIR hyperintensities are | | | nonspecific as can be seen with chronic microvascular ischemic change. | | | A developmental venous anomaly is incidentally noted in the left | | | cerebellar hemisphere. Otherwise, no abnormal enhancement. No evidence | | | of hemorrhage, mass, or acute infarction. The ventricles are normal | | | in size and morphology. SOFT TISSUES AND MARROW: Unremarkable. | | | FACE AND ORBITS: Visualized portions are unremarkable. IMPRESSION: | | | No evidence of intracranial metastatic disease. I have | | | personally reviewed the images and, if necessary, edited the report. I | | | agree with the report as now presented. Final signature: Carl Parsons | | | MD Sebastian 11/26/2018 8:56 PM Preliminary: Nomi Whitaker MD, PhD | | | 11/26/2018 8:53 PM Dictation initiated: Nomi Whitaker MD, PhD | | | 11/26/2018 7:43 PM | | + + + + + | Procedure Note | + + | 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, Radiant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 - 11/26/2018 8:57 PM PDT EXAM: MRI BRAIN | | W/WO CONTRAST HISTORY: Lung cancer, evaluate for metastatic disease. COMPARISON: | | 10/26/2018 outside PET TECHNIQUE: Multiplanar multi-sequence MRI of the brain without and | | with gadolinium based intravenous contrast: GADOTERATE MEGLUMINE 0.5 MMOL/ML (376.9 | | MG/ML) INTRAVENOUS SOLUTION 12 mL FINDINGS: BRAIN: No acute intracranial abnormality. | | Minimal periventricular and a few scattered supratentorial T2/FLAIR hyperintensities are | | nonspecific as can be seen with chronic microvascular ischemic change. A developmental | | venous anomaly is incidentally noted in the left cerebellar hemisphere. Otherwise, no | | abnormal enhancement. No evidence of hemorrhage, mass, or acute infarction. The | | ventricles are normal in size and morphology. SOFT TISSUES AND MARROW: Unremarkable.FACE | | AND ORBITS: Visualized portions are unremarkable. IMPRESSION: No evidence of | | intracranial metastatic disease. I have personally reviewed the images and, if | | necessary, edited the report. I agree with the report as now presented. Final | | signature: Carl Cortes MD 11/26/2018 8:56 PM Preliminary: Nomi Whitaker MD, PhD | | 11/26/2018 8:53 PM Dictation initiated: Nomi Whitaker MD, PhD 11/26/2018 7:43 PM | |SOFT TISSUES AND MARROW: Unremarkable. | |FACE AND ORBITS: Visualized portions are unremarkable. | | | |IMPRESSION: | | | |No evidence of intracranial metastatic disease. | | | |I have personally reviewed the images and, if necessary, edited the report. I agree with th e report as now presented. | | | |Final signature: Carl Cortes MD 11/26/2018 8:56 PM | |Preliminary: Nomi Whitaker MD, PhD 11/26/2018 8:53 PM | |Dictation initiated: Nomi Whitaker MD, PhD 11/26/2018 7:43 PM | + + + +---------+ + + | Performing | Address | City/State/Zipcode | Phone Number | | Organization | | | | + +---------+ + + | [facility] | | | | | VOICE RECOGNITION 2 | | | | + +---------+ + + documented in this encounter Visit Diagnoses + + | Diagnosis | + + | Neoplasm Neoplasm of unspecified nature, site unspecified | + + documented in this encounter Administered Medications + +---------+ +-------+------+------+ | Medication Order | MAR | Action | Dose | Rate | Site | | | Action | Date | | | | + +---------+ +-------+------+------+ | gadoterate meglumine (DOTAREM) | IV Push | 11/27/19 | 12 mL | | | | 0.5 mmol/mL (376.9 mg/mL) | | 19 7:15 | | | | | injection 12 mL 12 mL (rounded | | PM PDT | | | | | from 11.62 mL = 0.2 mL/kg | | | | | | | 58.1 kg), intravenous, ONCE, 1 | | | | | | | dose, Christine 11/26/18 at 1915 | | | | | | + +---------+ +-------+------+------+ +---+---+ | | | +---+---+ documented in this encounter
--- OUTSIDE RECORDS SUMMARY | ~2020-03-30 | XMS | Encounter Summary ---
Demographics + + + | Address | [address] | | | [place] [address] | + + + | Home Phone | | + + + | Preferred Language | Unknown | + + + | Marital Status | Single | + + + | Quaker Affiliation | Unknown | + + + | Race | Unknown | + + + | Ethnic Group | Unknown | + + + Author + + + | Author | [facility] | | | and Jakobana | + + + | Organization | [facility] | | | and [...] Team Providers + +------+ + | Care Mannequin Refinisher Name | Role | Phone | + +------+ + | Lauryn Stuart PA-C | PCP | | + +------+ + Reason for Visit + + + | Reason | Comments | + + + | Medication Refill | | + + + Encounter Details +--------+--------+ + + + | Date | Type | Department | Care Team | Description | +--------+--------+ + + + | 04/23/ | Refill | [facility] | Dayana Fiona | Medication Refill | | 2019 | | MED CTR RADIATION | MD Issa [address] | | | | | ONCOLOGY CLINIC [address] | [place], [place] | | | | | [address] | [address] | | | | | [place] [address] | | | | | | [phone] | | | +--------+--------+ + + + [...] | | | | | [place] [address] | | | | | | [phone] | | | | | | | | +--------+ + + + + documented as of this encounter Visit Diagnoses Not on filedocumented in this encounter"
--- OUTSIDE RECORDS SUMMARY | ~2020-03-30 | XMS | Encounter Summary ---
Demographics + + + | Address | [address] | | | [place] [address] | + + + | Home Phone | | + + + | Preferred Language | Unknown | + + + | Marital Status | Single | + + + | Nondenominational Affiliation | NRP | + + + | Race | White | + + + | Ethnic Group | Not or | + + + Author + + + | Author | [facility] | + + + | Organization | [facility] | + + + | Address | Unknown | + + + | Phone | Unavailable | + + + Support + + +---------+ + | Name | Relationship | Address | Phone | + + +---------+ + | Laura Allred | ECON | Unknown | | + + +---------+ + Care Team Providers + +------+ + | Care Endoscopy Technician Name | Role | Phone | + +------+ + | Lauryn Stuart | PCP | | + +------+ + Encounter Details +--------+ + + + + | Date | Type | Department | Care Team | Description | +--------+ + + + + | 10/08/ | Pharmacy | [facility] | | | | 2020 | Visit | [facility] | | | | | | [address] | | | | | | Mailcode: [place] | | | | | | [facility] and | | | | | | Healing, [address] | | | | | | [place], [place] | | | | | | [address] | | | | | | [phone] | | | +--------+ + + + [...] [place] | | | | | | [place] [address] | | | | | | [phone] | | | | | | | | +--------+---------+ + + + | 04/30/ | Office | Otolaryngology | Augustine Nolan | | | 2019 | Visit | | MD Debbie [address] | | | | | | [address] | | | | | | [place] | | | | | | [address] | | | | | | [phone] | | | | | | | | +--------+---------+ + + + documented as of this encounter Visit Diagnoses Not on filedocumented in this encounter
--- OUTSIDE RECORDS SUMMARY | ~2020-03-30 | XMS | Encounter Summary ---
Demographics + + + | Address | [address] | | | [place] [address] | + + + | Home Phone | | + + + | Preferred Language | Unknown | + + + | Marital Status | Single | + + + | Yazidism Affiliation | Unknown | + + + | Race | Unknown | + + + | Ethnic Group | Unknown | + + + Author + + + | Author | [facility] | | | and Jakobana | + + + | Organization | [facility] | | | and [...] Team Providers + +------+ + | Care Ampoule Filler And Sealer Name | Role | Phone | + +------+ + | Lauryn Stuart PA-C | PCP | | + +------+ + Reason for Referral Diagnostic/Screening (Routine) +--------+--------+ + + + + | Status | Reason | Specialty | Diagnoses / | Referred By | Referred To | | | | | Procedures | Contact | Contact | +--------+--------+ + + + + | Closed | | Radiology | Diagnoses | Day[place], | [address] | | | | | Malignant | Fiona M, | [address] | | | | | neoplasm of | MD [address] | [place], | | | | | upper lobe | [address] | [place] [address] | | | | | of left lung | [place], | Phone: | | | | | (HCC) | [place] [address] | [phone] | | | | | Procedures | Phone: | Fax: | | | | | CT Chest w | [phone] | [phone] | | | | | Contrast | Fax: | | | | | | | [phone] | | +--------+--------+ + + + + Reason for Visit Diagnostic/Screening (Routine) +--------+--------+ + + + + | Status | Reason | Specialty | Diagnoses / | Referred By | Referred To | | | | | Procedures | Contact | Contact | +--------+--------+ + + + + | Closed | | Radiology | Diagnoses | Riegert, | [address] | | | | | Malignant | Fiona M, | [address] | | | | | neoplasm of | MD [address] | [place], | | | | | upper lobe | [address] | [place] [address] | | | | | of left lung | [place], | Phone: | | | | | ([facility]) | [place] [address] | [phone] | | | | | Procedures | Phone: | Fax: | | | | | CT Chest w | [phone] | [phone] | | | | | Contrast | Fax: | | | | | | | [phone] | | +--------+--------+ + + + + Encounter Details +--------+ + + + + | Date | Type | Department | Care Team | Description | +--------+ + + + + | 07/03/ | Hospital | [facility] | Fiona Anne | Malignant neoplasm | | 2019 | Encounter | MED [facility] [address] | MD Issa [address] | of upper lobe of | | | | [place], | [address] [place], [place] | left lung (HCC) | | | | [place] [address] | [address] | | | | | [phone] | | | +--------+ + + + [...] + + | ALPRAZolam (XANAX) | Take 1 tablet by | 90 | 2 | 05/20/20 | | | 0.5 mg tablet | mouth nightly as | tablet | | 19 | | | | needed (taking every | | | | | | | night.). | [...] + + + +---------+ + + | citalopram | Take 10 mg by mouth | | 0 | 06/11/20 | | | (CELEXA) 10 mg | Daily. | | | 19 | 0 [...] patch onto | 10 | 0 | 06/11/20 | | | (DURAGESIC) 50 | the skin every 72 | patch | | 19 | 9 | | mcg/hrIndications: | hours. | | | | | | Malignant [...] | | Take 1-2 tablets by | 60 | 0 | 06/10/20 | | | HYDROcodone-acetamin | mouth every [...] | | | | | [place] [address] | | | | | | [phone] | | | | | | | | +--------+ + + + + documented as of this encounter Procedures + +--------+ + + + | Procedure Name | Priori | Date/Time | Associated Diagnosis | Comments | | | ty | | | | + +--------+ + + + | CT CHEST W CONTRAST | Routin | 07/03/2019 | Malignant neoplasm | Results for this | | | e | 10:01 AM | of upper lobe of | procedure are in the | | | | PST | left lung (HCC) | results section. | + +--------+ + + + documented in this encounter Results CT Chest w Contrast (07/03/2019 10:01 AM PST) + + | Specimen | + + | | + + + + + | Impressions | Performed At | + + + | Post surgical changes are again seen related to left upper | [facility] | | lobectomy. Interval development of new multifocal groundglass and | | | more soft tissue appearing consolidative areas adjacent to the left | | | superior and mid hilar soft tissues measuring up to 2.5 x 1.4 cm on | | | the anterior mid left lung and measuring up to 1.5 x 1.1 cm in the | | | posterior mid left lung. Area of groundglass consolidation is noted | | | along the most medial aspect of the right lower lobe adjacent to the | | | right mainstem bronchus. -These findings are concerning for worsening | | | neoplasm versus postradiation changes. Pneumonia may also remain in | | | the differential appropriate clinical setting. -Worsening soft | | | tissue nodularity and lymphadenopathy in the mediastinum and is also | | | suspicious however this could represent postradiation scarring. | | | Redemonstration of a spiculated area of scarring or neoplasm in the | | | right lung apex measuring 1.2 x 0.9 cm which is unchanged. | | | Dictated and Signed by: Pasha Garrison MD Electronically signed: | | | 07/03/2019 11:40 AM | | + + + + + + | Narrative | Performed At | + + + | CT CHEST W CONTRAST 07/03/2019 9:58 AM HISTORY: restaging. | [facility] | | COMPARISON: 10/11/2018. PROTOCOL: Axial images of the chest were | | | obtained after uneventful administration of 70 mL Omnipaque 350. | | | Coronal and sagittal reformations were acquired. FINDINGS: | | | LUNGS: Post surgical changes are again seen related to left upper | | | lobectomy. Interval development of new multifocal groundglass and | | | more soft tissue appearing consolidative areas adjacent to the left | | | superior and mid hilar soft tissues measuring up to 2.5 x 1.4 cm on | | | the anterior mid left lung and measuring up to 1.5 x 1.1 cm in the | | | posterior mid left lung. Area of groundglass consolidation is noted | | | along the most medial aspect of the right lower lobe adjacent to the | | | right mainstem bronchus, suspicious for infection or neoplasm. | | | Redemonstration of a spiculated area of scarring or neoplasm in the | | | right lung apex measuring 1.2 x 0.9 cm which is unchanged. No | | | evidence of pneumothorax. Prominent pleural thickening and component | | | of pleural fluid in the left lung, likely postsurgical. HEART: The | | | heart is of normal size. VASCULATURE: Azygous fissure. Pulmonary | | | vessels and aorta demonstrate no acute abnormalities. LYMPH NODES: | | | No evidence of axillary, mediastinal, or hilar lymphadenopathy. | | | MEDIASTINUM: Mild diffuse mediastinal soft tissue thickening which | | | has significantly worsened since 2019. Enlarged bilateral hilar | | | and mediastinal lymph nodes versus ill-defined soft tissue | | | thickening. Soft tissue thickening surrounding the entire aorta. Neck | | | base is normal. ABDOMEN: The upper abdomen demonstrates no acute | | | findings. SOFT TISSUES: Chest wall structures are normal. BONES: | | | There are no acute osseous abnormalities. Remote left rib fracture | | | deformity. No chemically suspicious lytic or blastic lesion | | | identified. | | + + + + + | Procedure Note | + + | Cristhian, Rad Results In - 07/03/2019 11:[address] CHEST W CONTRAST 07/03/2019 9:58 AM | | | | HISTORY: restaging. | | | | COMPARISON: 10/11/2018. | | | | PROTOCOL: Axial images of the chest were obtained after uneventful | | administration of 70 mL Omnipaque 350. Coronal and sagittal reformations were | | acquired. | | | | FINDINGS: | | LUNGS: Post surgical changes are again seen related to left upper lobectomy. | | Interval development of new multifocal groundglass and more soft tissue | | appearing consolidative areas adjacent to the left superior and mid hilar soft | | tissues measuring up to 2.5 x 1.4 cm on the anterior mid left lung and measuring | | up to 1.5 x 1.1 cm in the posterior mid left lung. Area of groundglass | | consolidation is noted along the most medial aspect of the right lower lobe | | adjacent to the right mainstem bronchus, suspicious for infection or neoplasm. | | Redemonstration of a spiculated area of scarring or neoplasm in the right lung | | apex measuring 1.2 x 0.9 cm which is unchanged. No evidence of pneumothorax. | | Prominent pleural thickening and component of pleural fluid in the left lung, | | likely postsurgical. | | HEART: The heart is of normal size. | | VASCULATURE: Azygous fissure. Pulmonary vessels and aorta demonstrate no acute | | abnormalities. | | LYMPH NODES: No evidence of axillary, mediastinal, or hilar lymphadenopathy. | | MEDIASTINUM: Mild diffuse mediastinal soft tissue thickening which has | | significantly worsened since 2019. Enlarged bilateral hilar and mediastinal | | lymph nodes versus ill-defined soft tissue thickening. Soft tissue thickening | | surrounding the entire aorta. Neck base is normal. | | ABDOMEN: The upper abdomen demonstrates no acute findings. | | SOFT TISSUES: Chest wall structures are normal. | | BONES: There are no acute osseous abnormalities. Remote left rib fracture | | deformity. No chemically suspicious lytic or blastic lesion identified. | | | | IMPRESSION: | | Post surgical changes are again seen related to left upper lobectomy. | | | | Interval development of new multifocal groundglass and more soft tissue | | appearing consolidative areas adjacent to the left superior and mid hilar soft | | tissues measuring up to 2.5 x 1.4 cm on the anterior mid left lung and measuring | | up to 1.5 x 1.1 cm in the posterior mid left lung. Area of groundglass | | consolidation is noted along the most medial aspect of the right lower lobe | | adjacent to the right mainstem bronchus. | | -These findings are concerning for worsening neoplasm versus postradiation | | changes. Pneumonia may also remain in the differential appropriate clinical | | setting. | | -Worsening soft tissue nodularity and lymphadenopathy in the mediastinum and is | | also suspicious however this could represent postradiation scarring. | | | | Redemonstration of a spiculated area of scarring or neoplasm in the right lung | | apex measuring 1.2 x 0.9 cm which is unchanged. | | | | Dictated and Signed by: Pasha Garrison MD | | Electronically signed: 07/03/2019 11:40 AM | + + + +---------+ + [...] | | | + +--------+ +--------+------+------+ | iohexol (OMNIPAQUE 350) 350 | Given | 07/03/20 | 70 mLs | | | | mg/mL injection 70 mL 70 mL, | | 19 10:01 | | | | | Intravenous, ONCE PRN, Other, for | | AM PST | | | | | CT contrast study, Starting Jenniffer | | | | | | | 07/03/19 at 1001, For 1 dose, | | | | | | | Radiology | | | | | | + +--------+ +--------+------+------+ +---+---+ | | | +---+---+ documented in this encounter"
--- OUTSIDE RECORDS SUMMARY | ~2020-03-30 | XMS | Encounter Summary ---
Demographics + + + | Address | [address] | | | [place] [address] | + + + | Home Phone | | + + + | Preferred Language | Unknown | + + + | Marital Status | Single | + + + | Holiness Affiliation | Unknown | + + + | Race | Unknown | + + + | Ethnic Group | Unknown | + + + Author + + + | Author | [facility] | | | and Jakobana | + + + | Organization | [facility] | | [...] Team Providers + +------+ + | Care Field Installer Name | Role | Phone | [...] | MED CTR EXTERNAL | MD Marli [address] | | | | | IMAGING [address] | [address]. | | | | | [address] [place] | [place] [address] | | | | | [place] [address] | | | | | | [phone] | | | +--------+ + + + [...] | | | | | | [place] [address] | | | | | | [phone] | | | | | | | | +--------+ + + + + documented as of this encounter Procedures + +--------+ + + + | Procedure Name | Priori | Date/Time | Associated Diagnosis | Comments | | | ty | | | | + +--------+ + + + | CT CHEST WO CONTRAST | Routin | 10/11/2018 | | Results for this | | | e | 12:00 AM | | procedure are in the | | | | PST | | results section. | + +--------+ + + + documented in this encounter Results CT Chest wo Contrast (10/11/2018 12:00 AM PST) + + | Specimen [...]
--- OUTSIDE RECORDS SUMMARY | ~2020-03-30 | XMS | Encounter Summary ---
Demographics + + + | Address | [address] | | | [place] [address] | + + + | Home Phone | | + + + | Preferred Language | Unknown | + + + | Marital Status | Single | + + + | Advent Affiliation | Unknown | + + + | Race | Unknown | + + + | Ethnic Group | Unknown | + + + Author + + + | Author | [facility] | | | and Jakobana | + + + | Organization | [facility] | | | and [...] Team Providers + +------+ + | Care Farmer General Name | Role | Phone | + [...] | MED CTR EXTERNAL | MD Marli [address] | | | | | IMAGING [address] | [address]. | | | | | [address] [place] | [place] [address] | | | | | [place] [address] | | | | | | [phone] | | | +--------+ + + + [...] | | | | | [place] [address] | | | | | | [phone] | | | | | | | | +--------+ + + + + documented as of this encounter Procedures + +--------+ + + + | Procedure Name | Priori | Date/Time | Associated Diagnosis | Comments | | | ty | | | | + +--------+ + + + | XR CHEST AP PORTABLE | Routin | 12/07/2018 | | Results for this | | | e | 5:15 PM | | procedure are in the | | | | PDT | | results section. | + +--------+ + + + documented in this encounter Results XR Chest AP Portable (12/07/2018 5:15 PM PDT) + + | Specimen | [...]
--- OUTSIDE RECORDS SUMMARY | ~2020-03-30 | XMS | Encounter Summary ---
Demographics + + + | Address | [address] | | | [place] [address] | + + + | Home Phone [...] Author + + + | Author | [facility] | + + + | Organization | [facility] | + + + | Address | Unknown | + + + | Phone | Unavailable | + + + Support + + +---------+ + | Name | Relationship | Address | Phone | + + +---------+ + | Laura Allred | ECON | Unknown | | + + +---------+ + Care Team Providers + +------+ + | Care Director Power Name | Role | Phone | + +------+ + | Lauryn Stuart | PCP | | + +------+ + Reason for Visit +--------+ + | Reason | Comments | +--------+ + | FMLA | [facility] ([facility]) | +--------+ + Encounter Details +--------+ + + + + | Date | Type | Department | Care Team | Description | +--------+ + + + + | 01/21/ | Documentati | [facility] | Gi Barber, | SABRINA ([facility] (self)) | | 2019 | on | Clinics at S | MD [address] | | | | | [address] | [facility] [place] | | | | | [address] [place] for | [address] | | | | | Health and Healing, | [phone] | | | | | Building [address] | | | | | | [facility] [place] | | | | | | [address] | | | | | | [phone] | | | +--------+ + + + [...] | | | | | [address] [place], | | | | | | [place] [address] | | | | | | [phone] | | | | | | | | +--------+---------+ + + + | 04/30/ | Office | Otolaryngology | Augustine Nolan | | | 2020 | Visit | | MD Debbie [address] [facility] | | | | | | [address] | | | | | | [place] | | | | | | [address] | | | | | | [phone] | | | | | | | | +--------+---------+ + + + documented as of this encounter Visit Diagnoses Not on filedocumented in this encounter
--- OUTSIDE RECORDS SUMMARY | ~2020-03-30 | XMS | Encounter Summary ---
Demographics + + + | Address | [address] | | | [place] [address] | + + + | Home Phone | | + + + | Preferred Language | Unknown | + + + | Marital Status | Single | + + + | Temple Affiliation | Unknown | + + + | Race | Unknown | + + + | Ethnic Group | Unknown | + + + Author + + + | Author | [facility] | | | and Jakobana | + + + | Organization | [facility] | | | and Jakobana [...] Team Providers + +------+ + | Care Gravity Prospecting Observer Helper Name | Role | Phone | + +------+ + | Lauryn Stuart PA-C | PCP | | + +------+ + Reason for Visit + +--------+ + | Reason | Onset | Comments | | | Date | | + +--------+ + | Medication Prior | 04/23/ | | | Authorization | 2019 | | + +--------+ + Encounter Details +--------+ + + + + | Date | Type | Department | Care Team | Description | +--------+ + + + + | 04/23/ | Telephone | [facility] | Adolfo, | Medication Prior | | 2019 | | [facility] | Boubacar Daniels MD [address] | Authorization | | | | ONCOLOGY CLINIC [address] | [address] [facility] | | | | | [address] | [address] [place], [place] | | | | | [place] [address] | [address] | | | | | [phone] | | | +--------+ + + + [...] Telephone Encounter - Adelita Elizalde RN - 04/23/2019 9:49 AM PDTThis communication was faxed to our PA department. elephone Encounter - Rachel Ervin - 04/23/2019 8:23 AM PDTScott w[facility] [place] [facility] stating that [employer] insurance is requiring a Prior Auth for h er FentaNYL patch and for the HYDROmorpone. The [employer] help desk number is [phone]. Please be advised, thank you. 8:3 0 AM PDTdocumented in this encounter Plan of Treatment [...] | | | | | [place] [address] | | | | | | [phone] | | | | | | | | +--------+ + + + + documented as of this encounter Visit Diagnoses Not on filedocumented in this encounter"
--- OUTSIDE RECORDS SUMMARY | ~2020-03-30 | XMS | Encounter Summary ---
Demographics + + + | Address | [address] | | | [place] [address] | + + + | Home Phone [...] Author | [facility] | | | and Jakobana | + + + | Organization | [facility] | | | and [...] Team Providers + +------+ + | Care Photostat Operator Name | Role | Phone | + +------+ + | Lauryn Stuart PA-C | PCP | | + +------+ + Encounter Details +--------+ + + + + | Date | Type | Department | Care Team | Description | +--------+ + + + + | 03/31/ | [facility] | [facility] | Adolfo, | Malignant neoplasm | | 2019 | Encounter | MED CTR CHEMO | Boubacar Daniels MD [address] | of upper lobe of | | | | INFUSION [address] [place] | left lung (HCC) | | | | [place], | [address] [place], [place] | (Primary Dx) | | | | [place] [address] | [address] | | | | | [phone] | | | +--------+ + + + [...] documented as of this encounter Progress Notes Jair Isbell RN - 03/31/2019 3:29 PM PDTPatient discharged in satisfactory condit ion. Will return tomorrow for hydration Discharged ambulatory. With family. To home. Verified that patient has antinausea medications at home. Future appointments and After Visit Summary (AVS) provided. documented in this encounter Plan of Treatment [...] | | | | | | [place] [address] | | | | | | [phone] | | | | | | | [...] heparin 100 units/mL flush | Given | 03/31/20 | 500 | | | | injection 500 Units 500 Units (5 | | 19 3:26 | Units | | | | mL), Intracatheter, PRN, Line | | PM PDT | | | | | Care, Starting Sun03/31/19 at | | | | | | | 1522 | | | | | | + +--------+ +-------+------+------+ +---+---+ | | | +---+---+ + +-------+ +--------+---+---+ | HYDROmorphone (DILAUDID) | Given | 03/31/20 | 0.8 mg | | | | injection 0.4-0.8 mg 0.4-0.8 mg, | | 19 3:20 | | | | | Intravenous, EVERY 1 HOUR PRN, | | PM PDT | | | | | Pain, Starting Sun03/31/19 at | | | | | | | 1336 | | | | | | + +-------+ +--------+---+---+ +-------+ +--------+---+---+ | Given | 03/31/20 | 0.8 mg | | | | | 19 1:51 | | | | | | PM PDT | | | | +-------+ +--------+---+---+ +---+---+ | | | +---+---+ + +---------+ +---+-------+---+ | sodium chloride 0.9% (NS) | New Bag | 03/31/20 | | 500 | | | infusion at 500 mL/hr, | | 19 1:52 | | mL/hr | | | Intravenous, CONTINUOUS, Starting | | PM PDT | | | | | 03/31/19 at 1400, 1000 cc ns | | | | | | | iv over 2 hours., | | | | | | + +---------+ +---+-------+---+ +---+---+ | | | +---+---+ documented in this encounter"
--- OUTSIDE RECORDS SUMMARY | ~2020-03-30 | XMS | Encounter Summary ---
Demographics + + + | Address | [address] | | | [place] [address] | + + + | Home Phone | | + + + | Preferred Language | Unknown | + + + | Marital Status | Single | + + + | Mandaen Affiliation | Unknown | + + + | Race | Unknown | + + + | Ethnic Group | Unknown | + + + Author + + + | Author | [facility] | | | and Jakobana | + + + | Organization | [facility] | | | and Jakobana [...] Team Providers + +------+ + | Care Web Content Coordinator Name | Role | Phone | + +------+ + | Lauryn Stuart PA-C | PCP | | + +------+ + Reason for Visit + +--------+ + | Reason | Onset | Comments | | | Date | | + +--------+ + | Medication Refill | 01/04/ | | | | 2020 | | + +--------+ + Encounter Details +--------+--------+ + + + | Date | Type | Department | Care Team | Description | +--------+--------+ + + + | 01/04/ | Refill | [facility] | Adolfo, | Medication Refill | | 2020 | | MED CTR MEDICAL | Boubacar Daniels MD [address] | | | | | ONCOLOGY CLINIC [address] | [address] [facility] | | | | | [address] [place] | [address] [place], [place] | | | | | [place] [address] | [id number] | | | | | [phone] | | | +--------+--------+ + + + [...] this encounter Miscellaneous Notes Telephone Encounter - Bassam Molina - 01/05/2020 2:40 PM PDTPt called for refill of fen taNYL (DURAGESIC) 25 mcg/hr # if needed is [phone] Thank you documented in this encounter Plan of Treatment +--------+ + + + + | Date | Type | Specialty | Care Team | Description | +--------+ + + + + | 04/20/ | Appointment | Radiation Oncology | Treva Ortega | | | 2019 | | | DEISY Hernandez [address] | | | | | | [address] | | | | | | [place] [address] | | | | | | [phone] | | | | | | | | +--------+ + + + + documented as of this encounter Visit Diagnoses + + | Diagnosis | + + | Malignant neoplasm of left lung, unspecified part of lung (HCC) - Primary | + + documented in this encounter"
--- OUTSIDE RECORDS SUMMARY | ~2020-03-30 | XMS | Encounter Summary ---
Demographics + + + | Address | [address] | | | [place] [address] | + + + | Home Phone | | + + + | Preferred Language | Unknown | + + + | Marital Status | Single | + + + | Mormonism Affiliation | NRP | + + + | Race | White | + + + | Ethnic Group | Not or | + + + Author + + + | Author | [facility] | + + + | Organization | [facility] | + + + | Address | Unknown | + + + | Phone | Unavailable | + + + Support + + +---------+ + | Name | Relationship | Address | Phone | + + +---------+ + | Laura Allred | ECON | Unknown | | + + +---------+ + Care Team Providers + +------+ + | Care Car Head Liner Installer Name | Role | Phone | + +------+ + | Lauryn Stuart | PCP | | + +------+ + Encounter Details +--------+ + + + + | Date | Type | Department | Care Team | Description | +--------+ + + + + | 10/09/ | Procedure | [facility] | | | | 2020 | Pass | [facility] | | | | | | [facility] | | | | | | Center Admitting | | | | | | Desk Located on the | | | | | | 4th floor [address] | | | | | | [place], | | | | | | [place] [address] | | | +--------+ + + + [...] | | | | | | [place] [address] | | | | | | [phone] | | | | | | | | +--------+---------+ + + + | 04/30/ | Office | Otolaryngology | Augustine Nolan | | | 2020 | Visit | | MD Debbie [address] | | | | | | [address] | | | | | | [place] | | | | | | [address] | | | | | | [phone] | | | | | | | | +--------+---------+ + + + documented as of this encounter Visit Diagnoses Not on filedocumented in this encounter
--- OUTSIDE RECORDS SUMMARY | ~2020-03-30 | XMS | Encounter Summary ---
Demographics + + + | Address | [address] | | | [place] [address] | + + + | Home Phone [...] + + + | Author | [facility] | + + + | Organization | [facility] | + + + | Address | Unknown | + + + | Phone | Unavailable | + + + Support + + +---------+ + | Name | Relationship | Address | Phone | + + +---------+ + | Laura Allred | ECON | Unknown | | + + +---------+ + Care Team Providers + +------+ + | Care Heating Plant Superintendent Name | Role | Phone | + +------+ + | Lauryn Stuart | PCP | | + +------+ + Reason for Visit + + + | Reason | Comments | + + + | Follow-up visit | | + + + Consultation (Routine) + +--------+ + + + + | Status | Reason | Specialty | Diagnoses / | Referred By | Referred To | | | | | Procedures | Contact | Contact | + +--------+ + + + + | Authorized | | Otolaryngolog | | Non-[facility] | Ent | | | | y | | Epic Dept | Laryngology | | | | | | | [facility] [address] | [address] | | | | | | | [facility] | | | | | | | [facility] and | | | | | | | Healing, | | | | | | | [address] | | | | | | | [place], [place] | | | | | | | [address] | | | | | | | Phone: | | | | | | | [phone] | | | | | | | Fax: | | | | | | | [phone] | + +--------+ + + + + Encounter Details +--------+---------+ + + + | Date | Type | Department | Care Team | Description | +--------+---------+ + + + | 10/08/ | Office | Otolaryngology | Augustine Nolan | Paralysis of left | | 2020 | Visit | Laryngology Services | MD Debbie [address] | vocal fold (Primary | | | | at [address] | [address] | Dx); Malignant | | | | [facility] | [place], [place] | neoplasm of upper | | | | Health and Healing, | [address] | lobe of left lung | | | | [address] | [phone] | ([facility]); Pharyngeal | | | | [place], [place] | | dysphagia; Dysphonia | | | | [address] | | | | | | [phone] | | | +--------+---------+ + + + [...] + + + | Blood Pressure | 140/88 | 10/08/2019 9:59 AM | | | | | PST | | + + + + + | Pulse | 84 | 10/08/2019 9:59 AM | | | | | PST [...] + + + + | Weight | 54.5 kg (120 lb 3.2 | 10/08/2019 9:59 AM | | | | oz) | PST | | + + + + + | Height | - | - | | + + + + + | Body Mass Index | 20.63 | 01/24/2019 2:51 PM | | | | | PDT [...] documented as of this encounter Progress Notes Augustine Nolan MD - 10/08/2019 10:00 AM PST PATIENT NAME: Sussy Allred MR#: [id number] : 1950 REFERRING PROVIDER: [place] [address] PRIMARY CARE PROVIDER: MALLIKA Toledo CLINIC: [facility] REASON FOR FOLLOW-UP: Chief Complaint Patient presents with Follow-up visit HPI: Sussy Allred is a 69 y.o. 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 She underwent injectio n laryngoplasty at that time. She has since undergone radiation and chemotherapy with Drs. Estes and Adolfo. She did suffer from radiation pneumonitis with dyspnea, but was tr eated with steroid. Follow-up PET CT scan in June did not demonstrate any evidence of p ersistent local or metastatic disease. She returns today noting that she feels troubled by her breathing, voice and swallowing. S he notes that she is most troubled by her shortness of breath. This is present nearly all o f the time. She notes that more with ambulation or exercise. She notes fatigue with this. She does not note noisy breathing per se. She still notes hoarseness. 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 Specific difficulties with voicing include: poor vocal quality, fluctuating voice quality, weak voice, effortful voicing, inability to y ell, difficulty being heard in noise, voice dropping to a whisper and trouble voicing on the telephone. She will note occasional cough with liquids. She does not avoid any foods or li quids because of swallowing trouble. She has not had any fevers, chills or sweats. She pierce s have a productive cough at times. This varies. She has not had any hemoptysis. She is n ot smoking. She is maintained on a proton-pump inhibitor. She notes no symptoms of reflux, including h eartburn, indigestion, acidic taste or belching while on proton pump inhibitor therapy. VOCAL DEMANDS: Baseline speaking if she is continuing to try to work. 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 Kumar Laryngoscopic augmentation of left vocal cord Left 01/2019 Dr. Nolan-- Cymetra ALLERGIES: Allergies Allergen Reactions Ketorolac Anaphylaxis Latex Rash MEDICATIONS: Current Outpatient Medications Medication Sig acetaminophen 325 mg oral tablet Take 1-2 tablets by mouth every six hours as needed. I ndications: fever, Pain (Patient taking differently: Take 650 mg by mouth as needed. Indica tions: fever, pain) acyclovir 400 mg oral tablet Take 400 mg by mouth once daily. ALPRAZolam 0.25 mg oral tablet Take 0.25 mg by mouth once daily at bedtime as needed. arginine 500 mg oral tablet Take 1,000 mg by mouth once daily with dinner. beta-carotene(A)-vits C,E/mins (MACUVITE ORAL) Take 1 tablet by mouth once daily with d inner. buPROPion XL 300 mg oral tablet extended release 24 hr Take 300 mg by mouth once daily. cilostazol 50 mg oral tablet Take 1 tablet by mouth once daily. cyanocobalamin (vitamin B-12) 2,500 mcg oral tablet Take 2,500 mcg by mouth once daily. doxycycline hyclate 100 mg oral capsule Take 100 mg by mouth once daily. Indications: skin infection estradiol 2 mg oral tablet Take 2 mg by mouth once daily. fentaNYL 50 mcg/hr transdermal patch Apply 1 patch to skin every seventy-two hours. Ple ase remove old patch prior to placing a new one. HYDROcodone-acetaminophen 7.5-325 mg oral tablet Take 2 tablets by mouth three times da johnson. Lactobacillus acidophilus (PROBIOTIC ACIDOPHILUS ORAL) Take 1 capsule by mouth once jack ly. lansoprazole 30 mg oral capsule,delayed release(DR/EC) Take 30 mg by mouth once daily. levothyroxine 50 mcg oral tablet Take 50 mcg by mouth before breakfast. multivit-min/iron/folic/plc452 (HAIR, SKIN AND NAILS ADVANCED ORAL) Take 1 tablet by mo uth once daily with dinner. nicotine polacrilex 2 mg buccal gum Take 2 mg by mouth as needed. Chew slowly senna-docusate 8.6-50 mg oral tablet Take 1 tablet by mouth twice daily as needed for c onstipation. Indications: constipation (Patient taking differently: Take 1 tablet by mouth o nce daily at bedtime. Indications: constipation) triamterene-hydrochlorothiazide 37.5-25 mg oral tablet Take 0.5 tablets by mouth once d aily. Indications: high blood pressure (Patient taking differently: Take 1 tablet by mouth o nce daily. Indications: high blood pressure) No current facility-administered medications for this visit. LAST WEIGHTS: Wt Readings from Last 3 Encounters: 10/08/19 54.9 kg (121 lb) 10/08/19 54.5 kg (120 lb 3.2 oz) 01/24/19 55.7 kg (122 lb 12.8 oz) EXAMINATION: BP 140/88 | Pulse 84 | Wt 54.5 kg (120 lb 3.2 oz) | BMI 20.63 kg/m | BSA 1.57 m Gen: She is a 69 y.o. female. She is awake, alert and comfortable with the examination. Her weight is appropriate. She is normocephalic. Ears: The pinnae are normal. External auditory canals show minimal cerumen bilaterally. The tympanic membranes are clear with normal anatomic landmarks and an aerated middle ear sp roland. Nose: The nasal dorsum is straight and the nares are widely patent. The mucosa is pink and there are no lesions or masses noted. There is no significant nasal obstruction noted. Face: There are no worrisome lesions noted of the face or head. Oropharynx: Normal lips and oral competence are noted. The dentition is unchanged. The m ucosa is dry and pale, but shows no lesions or masses. The tonsils are unchanged and the fo ssae show no lesions. Bimanual palpation of the gigivolabial sulcus, lingual sulcus, tonsil lar pillars, palate and base of tongue did not demonstrate any concerning lesions or masses. Neck: The neck has a healed low neck incision consistent with mediastinoscopy. There is mi ld doughy edema of the anterior neck. She does have fullness that feels like lymphedema of the left supraclavicular fossa. There is no lymphadenopathy noted in the anterior, posterio r, digastric or submental triangles. The thyroid is palpable, but not enlarged or tender. I cannot appreciate any nodules. The larynx is anatomic in positioning. Chest: Chest rise is symmetric and there is no audible wheezing, stridor or wet vocal qual ity. Her chest has diminished breath sounds in the left upper lobe, but otherwise is full. Heart: She has a normal rate and regular rhythm. Her pulses are full bilaterally in the u pper extremities. Neuro: Extraoccular movements are grossly intact. There is symmetric sensation and moveme nt noted of the face. Hearing is grossly intact. Palatal elevation is symmetric and full. Tongue protrusion is midline. VOICE EVALUATION: Perceptual voice evaluation demonstrates dysphonia which is moderate. The pitch is acceptable for a female and shows diminished range. Vocal intensity is low and shows limited upper range. There is 1+ roughness, 1+ breathiness, 2+ asthenia and 1-2+ t ightness appreciated. There is no tremor noted with sustained vowel phonation. I am unable to detect voice breaks. Glottal teague is not detected. There is no diplophonia noted. Tanja culation is normal. Resonance is normal. LARYNGOSCOPY: Laryngoscopy was performed using a distal-chip Olympus flexible videolaryngo scope following the topical nasal application of oxymetazoline and pontocaine. This was per formed because the patient's gag reflex precluded adequate transoral indirect laryngoscopy. This demonstrates a clear vallecula and crisp epiglottis. The aryepiglottic folds are inta ct and symmetric bilaterally. The hypopharynx is clear to the limits of my examination toda y and shows no pooling. The interarytenoid space demonstrates no lesions or pachydermia. T he false vocal folds are symmetric and without lesions or masses. They show incorporation d uring sustained vowel phonation. The vocal folds show normal motion on the right. The lef t notes no motion. The left fold is in a paramedian position at rest. There is no paradoxi vaibhav motion. The medial edges are crisp and show no lesions or masses. The mucosal covering appears mildly edematous, but otherwise healthy. There is no obvious vascular ectasia or e rythema. While closure is difficult to assess completely without stroboscopy, it appears to be incomplete with very small glottic gap. The vocal processes show no granulomas or conta ct ulcers. The subglottis and proximal trachea is clear and unobstructed to the limits of t he examination today. No pseudosulcus can be appreciated on indirect examination. VIDEOSTROBOSCOPY: Laryngovideostroboscopy was performed today by me. Review of laryngovid eostroboscopy demonstrates laryngeal anatomy and motion as noted above. There is moderate l aryngeal hyperfunction which is most notable in the lateral dimension(s). There is not noted to be increased thick laryngeal mucous. Cricothyroid function appears to be intact bilatera lly. The mucosal wave is mostly periodic. Propagation of the mucosal waveform is anterior to posterior. There is often chasing asymmetry noted. On the right, the wave amplitude is globally decreased. On the left, the wave amplitude is globally decreased. Closure is comp lete with a wedge-like closure. There is noted to be a vertical phase defect by videostrobo scopy. On the right, the mucosal edge appears free of lesions. On the left, the mucosal ed ge appears free of lesions. On the right, the submucosal space appears free of lesions. On the left, the submucosal space appears mildly atrophic. ASSESSMENT: Ms. Allred appears to suffer from dyspnea, dysphonia and pharyngeal dysphagia a ssociated with treatment of stage III adenocarcinoma of the left upper lobe with left vocal fold paralysis which has improved since I last saw her. Her vocal fold positioning is myla edian and she does have some laryngeal hyperfunction in order to obtain vocal quality. Her breath support of voicing is a bigger problem for her than vocal fold positioning. I suspec t that she does have some diminished vital capacity following her radiation treatment and sparks rgery. This contributes to her dyspnea. She does note dyspnea with talking and I think erika t she does work harder to talk than she should. This makes work very difficult and is likel y the source of her persistent cough with liquids. She noted that this was better shortly a fter her injection laryngoplasty. While I think that she would benefit from vocal fold augm entation, I do not believe that this will improve her dyspnea on exertion. It will facilita te voicing and swallowing. We talked about this for a while today. Today we discussed medialization thyroplasty at length. We discussed the need for sedativ e local anesthesia during the procedure for voice tuning. We discussed the relevant anatomy and the implant itself. We discussed the length of the procedure and the need for fiberopt ic laryngoscopy during the procedure. We discussed the risks, including bleeding, infection , failure to improve the voice/worsening of voice, extrusion of the implant, possible need f or further surgery, and the risks of anesthesia. All questions were answered to the best of my ability. PLAN: After answering all questions to the best of my ability, Ms. Allred has elected to un dergo left medialization thyroplasty. She will go shortly for preoperative evaluation in an ticipation of surgery tomorrow. Augustine Nolan M.D. Press Maintainer Laryngology and Head & Neck Surgery d ocumented in this encounter Plan of Treatment +--------+---------+ + + + | Date | Type | Specialty | Care Team | Description | +--------+---------+ + + + | 04/30/ | Office | Speech Therapy | Barbra Ramirez SLP | | | 2019 | Visit | | [address] | | | | | | [place], | | | | | | [place] [address] | | | | | | [phone] | | | | | | | | +--------+---------+ + + + | 04/30/ | Office | Otolaryngology | Augustine Nolan | | 2019 | Visit | | MD Debbie [address] | | | | | | [address] | | | | | | [place], [place] | | | | | | [address] | | | | | | [phone] | | | | | | | | +--------+---------+ + + + documented as of this encounter Procedures + +--------+ + + + | Procedure Name | Priori | Date/Time | Associated Diagnosis | Comments | | | ty | | | | + +--------+ + + + | VT | Routin | 10/08/2019 | Paralysis of left | | | LARYNGOSCOPY,FLEX/RI | e | 4:13 PM | vocal fold | | | GID+STROBOSCOPY | | PST | Pharyngeal dysphagia | | | | | | Dysphonia | | + +--------+ + + + documented in this encounter Visit Diagnoses + + | Diagnosis | + + | Paralysis of left vocal fold - Primary | + + | Malignant neoplasm of upper lobe of left lung (HCC) | + + | Pharyngeal dysphagia Dysphagia, pharyngeal phase | + + | Dysphonia | + + documented in this encounter
--- OUTSIDE RECORDS SUMMARY | ~2020-03-30 | XMS | Encounter Summary ---
Demographics + + + | Address | [address] | | | [place] [address] | + + + | Home Phone | | + + + | Preferred Language | Unknown | + + + | Marital Status | Single | + + + | Orthodox Affiliation | NRP | + + + | Race | White | + + + | Ethnic Group | Not or | + + + Author + + + | Author | [facility] | + + + | Organization | [facility] | + + + | Address | Unknown | + + + | Phone | Unavailable | + + + Support + + +---------+ + | Name | Relationship | Address | Phone | + + +---------+ + | Laura Allred | ECON | Unknown | | + + +---------+ + Care Team Providers + +------+ + | Care Glass Technician Name | Role | Phone | + +------+ + | Lauryn Stuart | PCP | | + +------+ + Encounter Details +--------+ + + + + | Date | Type | Department | Care Team | Description | +--------+ + + + + | 12/07/ | Procedure | [address] | | | | 2019 | Pass | [address] | | | | | | [facility] | | | | | | [facility]mitting | | | | | | Desk Located on the | | | | | | 9th floor | | | | | | [place], [place] | | | | | | [address] | | | +--------+ + + + [...] | | 2019 | Visit | | [address] | | | | | | [place], | | | | | | [place] [address] | | | | | | [phone] | | | | | | | | +--------+---------+ + + + | 04/30/ | Office | Otolaryngology | Augustine Nolan | | | 2019 | Visit | | MD Debbie [address] | | | | | | [address] | | | | | | [place], [place] | | | | | | [address] | | | | | | [phone] | | | | | | | | +--------+---------+ + + + documented as of this encounter Visit Diagnoses Not on filedocumented in this encounter
--- OUTSIDE RECORDS SUMMARY | ~2020-03-30 | XMS | Encounter Summary ---
Demographics + + + | Address | [address] | | | [place] [address] | + + + | Home Phone [...] + + + | Author | [facility] | + + + | Organization | [facility] | + + + | Address | Unknown | + + + | Phone | Unavailable | + + + Support + + +---------+ + | Name | Relationship | Address | Phone | + + +---------+ + | Laura Allred | ECON | Unknown | | + + +---------+ + Care Team Providers + +------+ + | Care Boarder Machine Name | Role | Phone | + +------+ + | Lauryn Stuart | PCP | | + +------+ + Encounter Details +--------+ + + + + | Date | Type | Department | Care Team | Description | +--------+ + + + + | 12/25/ | Lye Treater | Cardiothoracic | Alejandro Waters NP | Malignant neoplasm | | 2019 | | Surgery at [facility] | [address] | of lung, unspecified | | | | [address] | [place], [place] | laterality, | | | | Physician's | [address] | unspecified part of | | | | Pavilion, 2nd floor | [phone] | lung (HCC) (Primary | | | | [place], [place] | | Dx) | | | | [address] | | | | | | [phone] | | | +--------+ + + + [...] | | 2019 | Visit | | [address] | | | | | | [place], | | | | | | [place] [address] | | | | | | [phone] | | | | | | | | +--------+---------+ + + + | 04/30/ | Office | Otolaryngology | Augustine Nolan | | | 2019 | Visit | | MD Debbie [address] [facility] | | | | | | [address] | | | | | | [place], [place] | | | | | | [address] | | | | | | [phone] | | | | | | | | +--------+---------+ + + + documented as of this encounter Results X-RAY CHEST 2 VIEW (12/27/2018 11:44 AM PDT) + + | Specimen | + + | | + + + + + | Narrative | Performed At | + + + | EXAM: CHEST 2 VIEWS HISTORY: s/p CODY sleeve resection | [facility] | | COMPARISON: 12/14/2018 FINDINGS: Left hilar surgical clips and | RADIOLOGY VOICE | | sofy, as before. The cardiomediastinal contour is normal. Surgical | RECOGNITION 2 | | changes from recent left upper lobe sleeve resection are observed with | | | minimal elevation of the left hemidiaphragm, as before. The lungs are | | | otherwise clear. There is no pleural effusion or pneumothorax. There | | | is no pulmonary edema. The bones are intact. IMPRESSION: | | | Expected postoperative findings from prior left upper lobe sleeve | | | resection. No evidence of postoperative complication. I have | | | personally reviewed the images and, if necessary, edited the report. I | | | agree with the report as now presented. Final signature: Frieda | | | MD Brissa 12/27/2018 3:57 PM Preliminary: Nomi Burks MD | | | Dictation initiated: Nomi Burks MD 12/27/2018 1:45 PM | | + + + + + | Procedure Note | + + | 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, Radiant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 - 12/27/2018 3:58 PM PDT EXAM: CHEST 2 | | VIEWS HISTORY: s/p CODY sleeve resection COMPARISON: 12/14/2018 FINDINGS: Left hilar | | surgical clips and sofy, as before. The cardiomediastinal contour is normal. Surgical | | changes from recent left upper lobe sleeve resection are observed with minimal | | elevation of the left hemidiaphragm, as before. The lungs are otherwise clear. There is | | no pleural effusion or pneumothorax. There is no pulmonary edema. The bones are intact. | | IMPRESSION: Expected postoperative findings from prior left upper lobe sleeve resection. | | No evidence of postoperative complication. I have personally reviewed the images and, | | if necessary, edited the report. I agree with the report as now presented. Final | | signature: Frieda Brumfield MD 12/27/2018 3:57 PM Preliminary: Nomi Burks MD | | Dictation initiated: Nomi Burks MD 12/27/2018 1:45 PM | |IMPRESSION: | | | |Expected postoperative findings from prior left upper lobe sleeve resection. No evidence of postoperative complication. | | | |I have personally reviewed the images and, if necessary, edited the report. I agree with th e report as now presented. | | | |Final signature: Frieda Brumfield MD 12/27/2018 3:57 PM | |Preliminary: Nomi Burks MD | |Dictation initiated: Nomi Burks MD 12/27/2018 1:45 PM | + + + +---------+ + [...] - | | Primary | + + documented in this encounter
--- OUTSIDE RECORDS SUMMARY | ~2020-03-30 | XMS | Encounter Summary ---
Demographics + + + | Address | [address] | | | [place] [address] | + + + | Home Phone | | + + + | Preferred Language | Unknown | + + + | Marital Status | Single | + + + | Restorationism Affiliation | NRP | + + + | Race | White | + + + | Ethnic Group | Not or | + + + Author + + + | Author | [facility] | + + + | Organization | [facility] | + + + | Address | Unknown | + + + | Phone | Unavailable | + + + Support + + +---------+ + | Name | Relationship | Address | Phone | + + +---------+ + | Laura Allred | ECON | Unknown | | + + +---------+ + Care Team Providers + +------+ + | Care Education Program Manager Name | Role | Phone | + +------+ + | Lauryn Stuart | PCP | | + +------+ + Encounter Details +--------+ + + + + | Date | Type | Department | Care Team | Description | +--------+ + + + + | 12/25/ | Stripper Shovel Operator | Cardiothoracic | Alejandro Waters NP | Malignant neoplasm | | 2019 | | Surgery at [facility] | [address] | of lung, unspecified | | | | [address] | [place], [place] | laterality, | | | | Physician's | [address] | unspecified part of | | | | Pavilion, 2nd floor | [phone] | lung (HCC) (Primary | | | | [place], [place] | | Dx) | | | | [address] | | | | | | [phone] | | | +--------+ + + + [...] | | 2019 | Visit | | [address] | | | | | | [place], | | | | | | [place] [address] | | | | | | [phone] | | | | | | | | +--------+---------+ + + + | 04/30/ | Office | Otolaryngology | Augustine Nolan | | | 2019 | Visit | | MD Debbie [address] [facility] | | | | | | [address] | | | | | | [place], [place] | | | | | | [address] | | | | | | [phone] | | | | | | | [...]
--- OUTSIDE RECORDS SUMMARY | ~2020-03-30 | XMS | Encounter Summary ---
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 | Phone | + [...] + + + + | 10/09/ | Anesthesia | [facility] | Helga Toney | | | 2020 | Event | [facility] | MD Leonor [address] | | | | | and Healing Surgery | [address] | | | | | Center Admitting | [place], [place] | | | | | Desk Located on the | [address] | | | | | 4th floor [address] | [phone] | | | | | [place], | | | | | | [place] [address] | Rehana Nuñez, | | | | | | NIK [address] | | | | | | [address] | | | | | | [place], [place] | | | | | | [address] | | | | | | [phone] | | | | | | | | +--------+ + + + + Anesthesia Record + + + + + | Procedure Name | Responsible | Anesthesia Start | Anesthesia Stop Time | | | Anesthesiologist | Time | | + + + + + | LEFT MEDIALIZATION | Helga Toney, | 10/09/19 0735 | 10/09/19 1009 | | THYROPLASTY (Left | MD | | | | Neck) | | | | + + + + + +----+---+ + + | Da | T | Event | Comment | | te | i | | | | | m | | | | | e | | | +----+---+ + + | 02 | 0 | Eq Check | Anesthesia machine checked Equipment verified | | /2 | 7 | | | | 0/ | 0 | | | | 20 | 4 | | | | 20 | | | | +----+---+ + + | | 0 | | | | | 7 | | | | | 2 | | | | | 3 | | | +----+---+ + + | | 0 | Pt. Check | Prior to anesthesia start, pt. Identified, examined, chart | | | 7 | | reviewed, PARVanessa held, anesthetic plan made or approved by | | | 2 | | attending anesthesiologist. NPO status confirmed as appropriate | | | 3 | | for procedure Preoperative evaluation: unchanged | +----+---+ + + | | 0 | An Start | | | | 7 | | | | | 3 | | | | | 5 | | | +----+---+ + + | | 0 | An Start | | | | 7 | Data | | | | 3 | | | | | 7 | | | +----+---+ + + | | 0 | Vitals | Monitors applied Vital signs checked Patient ready for anesthesia | | | 7 | Checked | | | | 4 | | | | | 1 | | | +----+---+ + + | | 0 | O2 by NC | | | | 7 | | | | | 4 | | | | | 2 | | | +----+---+ + + | | 0 | Ready | | | | 7 | | | | | 4 | | | | | 3 | | | +----+---+ + + | | 0 | Local | | | | 7 | Anesthetic | | | | 4 | by Surgeon | | | | 8 | | | +----+---+ + + | | 0 | Abx | | | | 7 | Administere | | | | 4 | d | | | | 9 | | | +----+---+ + + | | 0 | Timeout | | | | 7 | | | | | 5 | | | | | 8 | | | +----+---+ + + | | 0 | Incision | | | | 8 | | | | | 1 | | | | | 3 | | | +----+---+ + + | | 1 | Surgery end | | | | 0 | | | | | 0 | | | | | 0 | | | +----+---+ + + | | 1 | an stop | | | | 0 | data | | | | 0 | | | | | 5 | | | +----+---+ + + | | 1 | PACU Rpt | | | | 0 | Given | | | | 0 | | | | | 9 | | | +----+---+ + + | | 1 | Anesthesia | | | | 0 | End | | | | 0 | | | | | 9 | | | +----+---+ + + +------+ | Meds | +------+ + + + | Name | Total | + + + | midazolam | 2 mg | + + + | fentaNYL | 100 mcg | + + + | propofol | 210 mg | + + + | propofoL (DIPRIVAN) 200 mg | 588,775 mcg | + + + | ceFAZolin | 2,000 mg | + + + | dexamethasone | 10 mg | + + + | dexMEDEtomidine (PRECEDEX) 400 | 59.4 mcg | | mcg in sodium chloride (NS) 0.9 % | | | 100 mL (4 mcg/mL) IV infusion | | + + + | ondansetron | 4 mg | + + + | LR bolus | 800 mL | + + + + + | Name | + + | O2 FR Avance (Total Liters) | + + | Air FR Avance (l/min) | + + | O2 Flow Rate (Total Liters) | + + + + | No blood administrations on file. | + + +--------+ + + + | Type | Details | Placement | Removal | +--------+ + + + | Incisi | 10/09/19; Nico Nolan MD; Left; | 10/09/19 0000 by | 10/10/19 1144 by | | on | Anterior; neck; 10/10/19; 1144 | Elmer Gamino RN | Gustavo Perez | | | | | FARIDA Queen | +--------+ + + + | Drain | 10/09/19; Nico Nolan MD; Max | 10/09/19 0000 by | 10/10/19 1040 by | | | (10 Fr); Left; Anterior; neck; | Elmer Gamino RN | Gustavo Perez | | | 10/10/19; 1040 (exact time | Bhavik Queen RN | | | unknown, removed by ) | | | +--------+ + + + | Periph | 10/09/19; 0638; Left; Hand; 20 g; | 10/09/19 0638 by | 10/10/19 1144 by | | eral | 10/10/19; 1144 | FARIDA Mendoza | | IV | | | FARIDA Queen | +--------+ + + + documented in this encounter Social History + + [...] | | | | | [place], | | | | | | [place] [address] | | | | | | [phone] | | | | | | | | +--------+---------+ + + + | 04/30/ | Office | Otolaryngology | Augustine Nolan | | | 2019 | Visit | | MD Debbie [address] | | | | | | [address] | | | | | | [place], [place] | | | | | | [address] | | | | | | [phone] | | | | | | | [...] | ceFAZolin (ANCEF) injection | Given | 10/09/19 | 2,000 mg | | | | INTRAPROCEDURE PRN, Starting Jenniffer | | 20 7:49 | | | | | 10/09/19 at 0749, Until Jenniffer | | AM PST | | | | | 10/09/19 at 1009 | | | | | | + +--------+ + +------+------+ +---+---+ | | | +---+---+ + +-------+ +-------+---+---+ | dexamethasone (DECADRON) | Given | 10/09/19 | 10 mg | | | | injection INTRAPROCEDURE PRN, | | 20 8:00 | | | | | Starting Jenniffer 10/09/19 at 0800, | | AM PST | | | | | Until Jenniffer 10/09/19 at 1009 | | | | | | + +-------+ +-------+---+---+ +---+---+ | | | +---+---+ + + + + +-------+---+ | dexMEDEtomidine (PRECEDEX) 400 | Rate/Dos | 10/09/19 | 0.4 | 5.5 | | | mcg in sodium chloride (NS) 0.9 % | e Change | 20 9:48 | mcg/kg/h | mL/hr | | | 100 mL (4 mcg/mL) IV infusion | | AM PST | r | | | | INTRAPROCEDURE CONTINUOUS PRN, | | | | | | | Starting Jenniffer 10/09/19 at 0816, | | | | | | | Until Jenniffer at 1009 | | | | | | + + + + +-------+---+ + + + +-------+---+ | Rate/Dose Change | 10/09/19 | 0.6 | 8.25 | | | | 20 9:40 | mcg/kg/h | mL/hr | | | | AM PST | r | | | + + + +-------+---+ | New Bag | 10/09/19 | 0.7 | 9.63 | | | | 20 8:16 | mcg/kg/h | mL/hr | | | | AM PST | r | | | + + + +-------+---+ +---+---+ | | | +---+---+ + +-------+ +--------+---+---+ | fentaNYL (SUBLIMAZE) injection | Given | 10/09/19 | 25 mcg | | | | INTRAPROCEDURE PRN, Starting Jenniffer | | 20 9:00 | | | | | 10/09/19 at 0746, Until Jenniffer | | AM PST | | | | | 10/09/19 at 1009 | | | | | | + +-------+ +--------+---+---+ +-------+ +--------+---+---+ | Given | 10/09/19 | 25 mcg | | | | | 20 8:42 | | | | | | AM PST | | | | +-------+ +--------+---+---+ | Given | 10/09/19 | 25 mcg | | | | | 20 8:06 | | | | | | AM PST | | | | +-------+ +--------+---+---+ +---+---+ | | | +---+---+ + + + +---+---+---+ | lactated ringers (LR) bolus | given by | 10/09/19 | | | | | INTRAPROCEDURE CONTINUOUS PRN, | | 20 9:54 | | | | | Starting Jenniffer 10/09/19 at 0735, | anesthes | AM PST | | | | | Until Jenniffer 10/09/19 at 1009 | iology | | | | | + + + +---+---+---+ +---------+ +---+---+---+ | New Bag | 10/09/19 | | | | | | 20 7:35 | | | | | | AM PST | | | | +---------+ +---+---+---+ +---+---+ | | | +---+---+ + +-------+ +------+---+---+ | midazolam (PF) (VERSED) | Given | 10/09/19 | 2 mg | | | | injection INTRAPROCEDURE PRN, | | 20 7:37 | | | | | Starting Jenniffer 10/09/19 at 0737, | | AM PST | | | | | Until Jenniffer 10/09/19 at 1009 | | | | | | + +-------+ +------+---+---+ +---+---+ | | | +---+---+ + +-------+ +------+---+---+ | ondansetron (ZOFRAN) injection | Given | 10/09/19 | 4 mg | | | | INTRAPROCEDURE PRN, Starting Jenniffer | | 20 9:54 | | | | | 10/09/19 at 0954, Until Jenniffer | | AM PST | | | | | 10/09/19 at 1009 | | | | | | + +-------+ +------+---+---+ +---+---+ | | | +---+---+ + + + + +---+---+ | propofoL (DIPRIVAN) 200 mg | Rate/Dos | 10/09/19 | 60 | | | | INTRAPROCEDURE CONTINUOUS PRN, | e Change | 20 9:46 | mcg/kg/m | | | | Starting Jenniffer 10/09/19 at 0746, | | AM PST | in | | | | Until Jenniffer 10/09/19 at 1009 | | | | | | + + + + +---+---+ + + + +---+---+ | Rate/Dose Change | 10/09/19 | 75 | | | | | 20 9:23 | mcg/kg/m | | | | | AM PST | in | | | + + + +---+---+ | Restarted | 10/09/19 | 100 | | | | | 20 9:00 | mcg/kg/m | | | | | AM PST | in | | | + + + +---+---+ +---+---+ | | | +---+---+ + +-------+ +-------+---+---+ | propofoL (DIPRIVAN) injection | Given | 10/09/19 | 30 mg | | | | INTRAPROCEDURE PRN, Starting Jenniffer | | 20 9:37 | | | | | 10/09/19 at 0746, Until Jenniffer | | AM PST | | | | | 10/09/19 at 1009 | | | | | | + +-------+ +-------+---+---+ +-------+ +-------+---+---+ | Given | 10/09/19 | 20 mg | | | | | 20 9:34 | | | | | | AM PST | | | | +-------+ +-------+---+---+ | Given | 10/09/19 | 30 mg | | | | | 20 9:00 | | | | | | AM PST | | | | +-------+ +-------+---+---+ +---+---+ | | | +---+---+ documented in this encounter
--- OUTSIDE RECORDS SUMMARY | ~2020-03-30 | XMS | Encounter Summary ---
Demographics + + + | Address | [address] | | | [place] [address] | + + + | Home Phone | | + + + | Preferred Language | Unknown | + + + | Marital Status | Single | + + + | Judaism Affiliation | NRP | + + + | Race | White | + + + | Ethnic Group | Not or | + + + Author + + + | Author | [facility] | + + + | Organization | [facility] | + + + | Address | Unknown | + + + | Phone | Unavailable | + + + Support + + +---------+ + | Name | Relationship | Address | Phone | + + +---------+ + | Laura Allred | ECON | Unknown | | + + +---------+ + Care Team Providers + +------+ + | Care Generation Technician Name | Role | Phone | [...] | | 2019 | | [address] [facility] | [address] [facility] | BRONCHOSCOPY, | | | | [address] [facility] | [facility] | ENDOBRONCHIAL | | | | Hospital Admitting | [place], [place] | ULTRASOUND GUIDED | | | | Desk Located on the | [address] | LYMPH NODE BIOPSIES, | | | | 9th floor | [phone] | MEDIASTINOSCOPY; | | | | [place], [place] | | | | | | [address] | | | +--------+---------+ + + + [...] Discharge Medications: Sussy Allred Home Medication Instructions ABRAHAN:[id number] Printed on:12/13/18 6093 Medication Information acetaminophen 325 mg oral tablet [...] % Intake/Output Summary (Last 24 hours) at 12/14/1818 Last data filed at 12/14/18 0738 Gross [...] be sent through Care Everywhere.Lung Resection: Post-op (Bulgarian)Mediastinoscopy: Pre-op (Bulgarian)documented in this encounter Medications at Time of [...] PM PDTLeft chest tube removed. Keena Falcon, [facility] [place]-INSTALLATION COORDINATOR - 12/13/2018 8:11 AM PDT ENT SPEECH [...] Voice clear, breathing comfortably. No further acute INSTALLATION COORDINATOR needs. PLAN: 1. ADAT back to regular diet. Pills by mouth okay - in liquids or purees as she wishes. -Aspiration precautions - upright with all PO, single small bites/sips, one bite/sip at a time -L head-turn + chin-tuck is fine if patient finds it helpful with liquids 2. TFs have been discontinued 3. ENT INSTALLATION COORDINATOR will sign-off. Patient can follow-up with us as outpatient in clinic with Dr. Jose arce as needed. Keena Myles MS, CCC-INSTALLATION COORDINATOR Speech-Language Pathologist [facility] Dept. of Otolaryngology, [address] [facility] [place] [address] Pager: [phone] Terri Skaggs MD - 12/13/2018 7:11 AM PDT Thoracic Surgery Brief Inpatient Progress Note Patient name: SUSSY ALLRED Attending: Manoj Kumar MD Procedure day: 9 Procedure: Left thoracotomy, CODY lobectomy with bronchial and PA reconstruction 24 hour events: - Remains on NC, doing well, tolerating [facility] soft diet and diet, no complaints. 24 [...] mechanical soft diet. Tube feeds off. Plan (zcoz-ap-vroqktgm issues): - Aspiration pneumonitis: Resolved - Hypophosphatemia: [...] Stacy Quevedo MD Cardiothoracic Surgery Fellow Pager: [phone] Keena Falcon, MYRNA- INSTALLATION COORDINATOR - 12/12/2018 12:22 PM PDT ENT SPEECH [...] resident on- call. Recommend diet upgrade to [facility] soft and any liquids for more [...] of TFs to promote appetite 3. ENT INSTALLATION COORDINATOR will continue to follow. Please page [phone] as needed. Keena Myles MS, CCC-INSTALLATION COORDINATOR Speech-Language Pathologist [facility] Dept. of Otolaryngology, [address] [place] [address] Pager: [phone] Sharifa YBARRA, Terri ramirez - 12/12/2018 7:53 [...] a PEG tube for nutri tion. Plan (qfuz-tn-wteutygh issues): - Aspiration pneumonitis: Productive sputum, augmentin [...] Stacy Quevedo MD Cardiothoracic Surgery Fellow Pager: [phone] oKeena lopez, CCC- INSTALLATION COORDINATOR - 12/11/2018 2:44 PM PDT ENT SPEECH [...] verified. The patient was evaluated in the [facility] 10th floor Radiology suite & [...] resident on- call. Emailed Drs. Kumar and nA as well for their awareness. Recommend diet [...] re: decrease or discontinue TFs 3. ENT INSTALLATION COORDINATOR will follow-up on morning. [place] [phone] or [phone] as needed. Keena Myles MS, CCC-INSTALLATION COORDINATOR Speech-Language Pathologist [facility] [place] Dept. of Otolaryngology, [address] [facility] [place] [address] Pager: [phone] Taye Falcon CCC-HANNA - 12/11/2018 10:26 AM [...] to improve and tolerate PO. 4. ENT INSTALLATION COORDINATOR [place] [phone] [place] [phone] any time with questions or concer ns. Keena Myles MS, CCC-INSTALLATION COORDINATOR Speech-Language Pathologist [facility] Dept. of Otolaryngology, [address] [facility] [place] [address] Pager: [phone] Sharifa YBARRA, Terri ramirez - 12/11/2018 8:24 [...] PEG tube and stric t NPO. Plan (dvon-qb-cgndbmxl issues): - Aspiration pneumonitis: Productive sputum, augmentin [...] Stacy Quevedo MD Cardiothoracic Surgery Fellow Pager: [phone] Meggan Howe SLP - 4:21 PM PDTINPATIENT ENT SPEECH PROGRESS NOTE: Order received, chart reviewed. Patient with history of "large volume aspiration", even un clear. Recommend objective swallow evaluation in Radiology Sunday, 12/11 prior to initiat ion of p.o. Intake. Recommend: NPO, all nutrition/hydration/medication via PEG Plan: MBS Sunday. Meggan Downs, Ph.D., [facility] [place]-INSTALLATION COORDINATOR Pharmacy Picking Technician Director, [facility] Otolaryngology, Head and Neck Surgery [facility] [phone] Augustine Roa MD - 12/10/2018 9:51 AM PDT PATIENT NAME: Sussy Allred [facility] MR#: [id number] : 1950 PRIMARY CARE PROVIDER: MALLIKA Toledo [...] Intake/Output Summary (Last 24 hours) at 12/10/18 0946 Last data filed at 12/10/18 0545 Gross [...] Dr. Jose da silva. Augustine Nolan M.D. Pharmacy Picking Technician Laryngology and Head & Neck SurgeryElectronically signed [...] PEG tube and stric t NPO. Plan (onjv-kh-yespuqnm issues): - Aspiration pneumonitis: Productive sputum, augmentin [...] Stacy Quevedo MD Cardiothoracic Surgery Fellow Pager: [phone] alentKiya Hernandez MD,PhD - 12/09/2018 2:43 PM [...] removal. APS will sign off, please page [phone] if there are questions or concerns. APS happy to repla ce epidural in future if primary team and patient think it is needed. Kiya Santos MD Pager [phone] Department of Anesthesiology and Perioperative Medicine Chronic [...] PEG tube and stric t NPO. Plan (dtlg-uu-ozkvksdh issues): - Aspiration pneumonitis: strict NPO, aggressive [...] Stacy Quevedo MD Cardiothoracic Surgery Fellow Pager: [phone] ee Dickerson ACN - 12/09/2018 9:44 AM PDT Cardiovascular Intensive Care Unit Team Progress Note CVICU D2 Assigned #[id number] ICU Admission Reason Most Recent Value ICU Admission reason post-op management filed at 12/04/2018 1539 Documentation Date Row Name 12/04/18 1534 Day [...] 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 24 Hour events - [...] dysphagia. - Strict NPO, consider re consulting INSTALLATION COORDINATOR today pending course and ENT recs - [...] 12/07 - Strict NPO - ENT performed FOOD SUPERVISOR scope with evidence of left vocal cord [...] Manoj Kumar MD Admitting Provider Cardiothoracic Surgery 32480 Quality section FAST HUG Feeding: Tube Feeds [...] ICU CARDIAC Place of Service:- Inpatient CSN: [id number] Suggested Modifier: None Suggested CPT: TO BRANDING SPECIALIST Author:CARMELO Riggins [address] [address]Xrothmcqxahoiq signed by CARMELO Rigigns at 12/09/2018 11:2 5 AM Manda Garcia [...] Hamm MD Anesthesiology PGY1 APS Team Pager [phone] Associated attestation - Kiya Cedillo MD,PhD - [...] Clinical Update Note Team: D2 Team Pager: [phone] Attending: Cece Garsia Name: Sussy Allred ID: [...] 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 Given her likely long-term [...] Unit Team Progress Note CVICU D2 Assigned #[id number] ICU Admission Reason Most Recent Value ICU [...] 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 Given her likely long-term [...] 12/07 - Strict NPO - ENT performed FOOD SUPERVISOR scope with evidence of left vocal cord [...] Manoj Kumar MD Admitting Provider Cardiothoracic Surgery 51884 Jama Zhao MD ICU PM Attending Anesthesiology 81266 Quality section FAST HUG Feeding: Tube Feeds: [...] e. 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 Given her likely long-term [...] No Chronic pain Yes Service Cardiac Surgery [5398] Admitting provider and ICU treatment team members Provider Role Specialty Pager Manoj Kumar MD Admitting Provider Cardiothoracic Surgery [phone] Jama Zhao MD ICU PM Attending Anesthesiology 57225 Code Status Code Status Full Code Quality section I have spent a total of 38 minutes in the direct care and management of this patient indepe ndent of any time spent teaching or performing any separately billable procedures. I reviewe d the documented findings, all data and the recent imaging available. Seen with PA/FOOD SUPERVISOR myah . Please see their note for details. I reviewed the documented findings, all data and the re cent imaging available. Dennis Myrick MD Author:Dennis Myrick MD [address] [address]Dcfiknuaygpzcs signed by Dennis Myrick MD at 12/08/2018 [...] Louie Moura MD Adult Acute Pain Service [facility] Pager#: [phone] Email: [email or web address] Alcocer MD - 12/08/2018 8:25 AM PDT [...] post-procedure ye day, which is reassuring. Plan (mmyz-vm-oihvsztr issues): - Aspiration pneumonitis: strict NPO, aggressive [...] - Discuss with MD Coreen Farley MD [facility] General Surgery Pager #[phone] Dariana Duvall PA-C - 12/08/2018 5:02 AM PDTFormatting of this note might be different from the or iginal. Cardiovascular Intensive Care Unit Clinical Update Note Team: D2 Team Pager: [phone] Attending: Cece Pt Name: Sussy Allred ID: [...] 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 Given her likely long-term [...] Manoj Kumar MD Admitting Provider Cardiothoracic Surgery 61089 Jama Zhao MD ICU PM Attending Anesthesiology 04702 Code Status Code Status Full Code This [...] and the recent imaging available. Seen with PA/FOOD SUPERVISOR Chalino. Please see their note for details. I reviewed the documented findings, all data and the rec ent imaging available. Date of Service: 12/07/2018 [facility] DEPARTMENT: ANE ICU CARDIAC Place of Service:- Inpatient CSN: [id number] Suggested Modifier: None Suggested CPT: TO BRANDING SPECIALIST Author:Jama Zhao MD [address] P M Jaziel, Louie Daniels MD [...] Unit Team Progress Note CVICU D2 Assigned #[id number] ICU Admission Reason Most Recent Value ICU [...] 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 Given her likely long-term need fo r tube feeding given her dysphagia, EGS consulted and plans for PEG. Patient's ICU course co mplicated by hypertension (required phenylephrine now weaned off) and high volume aspiration event with hypoxia requiring HFNC 20L. Remains hemodynamically stable. 24 Hour events - Strict NPO with concern for high volume aspiration, INSTALLATION COORDINATOR signed off for now - Overnight worsening [...] event - Strict NPO - ENT performed FOOD SUPERVISOR scope with evidence of left vocal cord [...] Manoj Kumar MD Admitting Provider Cardiothoracic Surgery 56231 Jama Zhao MD ICU PM Attending Anesthesiology 90062 Quality section FAST HUG Feeding: NPO Analgesia: Epidural (HM-bupiv), rectal tylenol, lido patches Sedation: None Thromboprophylaxis: Lovenox Head of Bed: Head of Bed >30 degrees Ulcer Prophylaxis: Famotidine Glycemic Control: insulin sliding Created by Sonya Barron MD Author:Sonya Barron MD [address] [address]Rzrvubgqbldgaq signed by Dennis Myrick MD at 12/07/2018 1:48 PM Dennis Good MD - 12/07/2018 10:19 AM PDTFormatting of this note might be differen t from the original. Cardiovascular Intensive Care Unit Attending Progress Note CVICU D2 Assigned #[id number] ICU Admission Reason Most Recent Value ICU [...] Manoj Kumar MD Admitting Provider Cardiothoracic Surgery 03097 Jama Zhao MD ICU PM Attending Anesthesiology 46538 Code Status Code Status Full Code I [...] ICU CARDIAC Place of Service:- Inpatient CSN: [id number] Suggested Modifier: GC - Resident Involved Suggested CPT: TO BRANDING SPECIALIST Dennis Myrick MD Author:Dennis Myrick MD [address] [address]Dluyuqebnwapdz signed by Dennis Myrick MD at 12/07/2018 [...] strict NPO yesterday with concern for aspiration, INSTALLATION COORDINATOR signed off for now - overnight worsening [...] he risk of prolonged intubation post-anesthesia. Plan (uxdb-mc-ybvsqavo issues): - Aspiration pneumonitis: strict NPO, aggressive [...] and discussed with Dr. Chaya Kim MD [facility] General Surgery Pager #[phone] Gayle Mayfield - 12/07/2018 9:21 AM PDTTransthoracic echocardiogram completed. Final report to suzy montague. Dennis Duvall PA-C - 12/07/2018 5:34 AM PDT Cardiovascular Intensive Care Unit Clinical Update Note Team: D2 Team Pager: [phone] Attending: Cece Garsia Name: Sussy Allred ID: [...] General Surgery, PGY-3 EGS consult resident pager: [phone] Associated attestation - Derrick Handley MD - 12/08/2018 10:17 AM PDTATTENDING ADDENDUM I saw and examined Sussy Allred with the residents on 12/07 and agree with the assessmen t and plan as outlined in this note and participated in the planning of care. Derrick Handley MD FACS plush cutter Division of Trauma, Critical Care, and Acute Care Surgery [phone] Dennis Myrick MD - 12/06/2018 11:01 AM PDTFormatting of this note might be different f rom the original. Cardiovascular Intensive Care Unit Attending Progress Note CVICU D2 Assigned #[id number] ICU Admission Reason Most Recent Value ICU [...] is comfortable - pt will need likely terminal manager enteral access. Has requested surgical feeding tube [...] Manoj Kumar MD Admitting Provider Cardiothoracic Surgery 43841 Doty necessity reviewed: Plan to DC today [...] ICU CARDIAC Place of Service:- Inpatient CSN: [id number] Suggested Modifier: GC - Resident Involved Suggested CPT: TO BRANDING SPECIALIST Dennis Myrick MD Author:Dennis Myrick MD [address] [address]Neekdegnmmsyri signed by Dennis Myrick MD at 12/06/2018 [...] Stacy Quevedo MD Cardiothoracic Surgery Fellow Pager: [phone] Sonya Li MD - 11/18 7:50 AM PDT Cardiovascular Intensive Care Unit Team Progress Note CVICU D2 Assigned #[id number] ICU Admission Reason Most Recent Value ICU [...] DHT vs eventual Gtube - ENT performed FOOD SUPERVISOR scope with evidence of left vocal cord dysfunction Per ENT: Injection laryngoplasty can be done in our clinic with Dr. Kapaln next week as an i npatient if [...] Manoj Kumar MD Admitting Provider Cardiothoracic Surgery 24938 Quality section A-Line necessity reviewed: Plan to DC today Doty necessity reviewed: Plan to DC today FAST HUG Feeding: NPO Analgesia: epidural, Tylenol, lidocaine patches Sedation: None Thromboprophylaxis: Lovenox Head of Bed: Head of Bed >30 degrees Ulcer Prophylaxis: Famotidine Glycemic Control: insulin sliding Created by Sonya Barron MD Author:Sonya Barron MD [address] [place] [address]Lyhkylfdtshtht signed by Dennis Myrick MD at 12/06/2018 [...] revealed minimally mobile LEFT true vocal cord. INSTALLATION COORDINATOR evaluation with concern for ri sk of [...] Flores MD Anesthesiology/CCM Fellow APS Team Pager [phone] Associated attestation - Louie Moura MD - 12/07/2018 2:59 PM PDTI saw and evaluated mallika Allred with trainee: Dr. Flores . I have reviewed the trainee's note and I agree with the plan of care as documented. Louie Moura MD Adult Acute Pain Service [facility] Pager#: [phone] Email: [email or web address]-C - 12/05/2018 9:06 PM PDTFormatting of this note mi ght be different from the original. Cardiovascular Intensive Care Unit Clinical Update Note Team: D2 Team Pager: [phone] Attending: Layla Pt Name: Sussy Allred ID: Abbreviated HPI Update: 1. Hypotension a. Impoved 12/05/2018 after 2L crystalloid b. UO improved with IVF 2. Recurret Laryngeal nerve a. ENT Eval complete b. Pending re eval by INSTALLATION COORDINATOR for swallow this sim S: Pain, drowsy [...] Unit Team Progress Note CVICU D2 Assigned #[id number] ICU Admission Reason Most Recent Value ICU [...] levothyroxine 50mcg PO DAILY after clear by INSTALLATION COORDINATOR Cardiovascular HTN (hypertension) Unknown Current Assessment & [...] - restart PO PPI when clear by INSTALLATION COORDINATOR At risk for Dysphagia Unknown Current Assessment [...] Manoj Kumar MD Admitting Provider Cardiothoracic Surgery 95602 Quality section A-Line necessity reviewed: Mhiz-zs-wbdt blood pressure monitoring Doty necessity reviewed: Hourly/Accurate measurement of urinary output for clinical manage ment of critically ill patients FAST HUG Feeding: NPO Analgesia: Tylenol, epidural (bupiv-fent) Sedation: None Thromboprophylaxis: SCDs Head of Bed: Head of Bed >30 degrees Ulcer Prophylaxis: Famotidine Glycemic Control: insulin sliding Created by Sonya Barron MD Author:Sonya Barron MD [address] [phone] signed by Dennis Myrick MD at 12/06/2018 7:16 AM Ava Abraham, CF-INSTALLATION COORDINATOR - 12/05/2018 10:00 AM PDTEJ SPEECH PATHOLOGY-INPATIENT [...] HISTORY: she is single and lives in [place], [place] DIETARY STATUS: Current diet: The patient [...] afternoon when less lethargic/sedate. Ava Allred M.S., CF-INSTALLATION COORDINATOR Speech-Language Pathology Fellow [facility] [phone] Pager: [phone] Dennis Good MD - 12/05/2018 8:57 AM PDT Cardiovascular Intensive Care Unit Attending Progress Note CVICU D2 Assigned #[id number] ICU Admission Reason Most Recent Value ICU [...] Manoj Kumar MD Admitting Provider Cardiothoracic Surgery 41409 Code Status Code Status Full Code Quality section A-Line necessity reviewed: Qtqq-sl-wjqc blood pressure monitoring Doty necessity reviewed: Acute [...] ICU CARDIAC Place of Service:- Inpatient CSN: [id number] Suggested Modifier: GC - Resident Involved Suggested CPT: TO BRANDING SPECIALIST Dennis Myrick MD Author:Dennis Myrick MD [address] [phone] signed by Dennis Myrick MD at 12/05/2018 8:57 AM Robin Nevarez MD - 12/05/2018 8:08 AM PDTFormatting of this note might be diff erent from the original. INPATIENT ADULT PAIN SERVICE NEURAXIAL BLOCK PROGRESS NOTE 12/05/2018 Author: ROBIN FLORES MD Pain Service Attending Physician: Kiay Santos MD Epidural day # 1. POD# [...] Flores MD Anesthesiology/CCM Fellow APS Team Pager [phone] Associated attestation - Kiya Cedillo MD,PhD - 12/05/2018 4:50 PM PDTI saw and evaluated patient Ms. Sussy Allred with Resident: Dr. Flores. I reviewed all detail s of Ms. Sussy Allred s epidural block management. I have reviewed the resident s no te and I agree with the plan of care as documented. I do not have additional comments. Kiya Santos MD,PhDSae YBARRA, [facility] - 12/05/2018 7:45 AM PDTThoracic surgery progress [...] Stacy Quevedo MD Cardiothoracic Surgery Fellow Pager: [phone] Eloina, DEBBIE Collins - 3:00 AM PDT Cardiovascular Intensive Care Unit Clinical Update Note Team: D2 Team Pager: [phone] Attending: Layla Pt Name: Sussy Allred ID: [...] - restart PO PPI when clear by INSTALLATION COORDINATOR Hypothyroidism 12/04/2018 Assessment & Plan Note: - restart home levothyroxine 50mcg PO DAILY after clear by INSTALLATION COORDINATOR Acute post-operative pain 12/04/2018 Assessment & Plan [...] LEVEL/LATERALITY: bilateral ATTENDING PHYSICIAN: Hellen Herman MD BULK PLANT SUPERVISOR: Jamey Flores MD, Manda Hamm MD ANESTHESIA: [...] procedure. MD Jamey Boss M.D. Assisted our electrical engineering intern. I saw and evaluated patient Ms. [...] | | | | | [address] [place], | | | | | | [place] [address] | | | | | | [phone] | | | | | | | | +--------+---------+ + + + | 04/30/ | Office | Otolaryngology | Augustine Nolan | | | 2019 | Visit | | MD Debbie [address] | | | | | [address] | | | | | | [place], [place] | | | | | | [address] | | | | | | [phone] | | | | | | | [...] + +--------+ + + + | TO BRANDING SPECIALIST | Routin | 12/05/2018 | | Results [...] SAIDA | [address] | [place], [place] | | | IESHA [facility] | [address] | [address] | | | TESTS | | | [...] CINTRON | [address] | [place], [place] | | | MARISSA JULIAN [facility] | [facility] | [address] | | | TESTS | | | | + + + + + X-RAY PORTABLE CHEST 1 VIEW (12/13/2018 8:24 AM PDT) + + | Specimen | + + | | + + + + + | Narrative | Performed At | + + + | EXAM: NM CHEST 1 VIEW HISTORY: eval interval change. [...] Interface - 12/13/2018 9:47 AM PDT EXAM: NM CHEST 1 | | VIEW HISTORY: eval [...] CINTRON | [address] | [place], [place] | | | MARISSA [facility] | [address] | [address] | | | TESTS | | | [...] [facility] [address] | [place], [place] | | | ASTATULA [facility] | [address] | [address] | | | TESTS | | | [...] | MD Sae Cardiothoracic Surgery Fellow Pager: [phone] | | + + + CAPILLARY BLOOD [...] MARQUAM | [address] | [place], [place] | | | IESHA POINT OF CARE | [address] | [address] | | | TESTS | | | [...] + + + + + | [facility] | [address] | [place], [place] | | | MARISSA JULIAN OF CARE | [address] | [address] | | | TESTS | | | [...] MARQUAM | [address] | [place], [place] | | | IESHA POINT [facility]ARE | [address] | [address] | | | TESTS | | | [...] - MARQUAM | [address] | [place], [place] | | | IESHA POINT OF CARE | [address] | [address] | | | TESTS | | | [...] + + + | SUZE [facility] | [address] | [place], [place] | | | IESHA POINT OF CARE | [address] | [address] | | | TESTS | | | [...] MARQUAM | [address] | [place], [place] | | | MARISSA UJLIAN OF CARE | [address] | [address] | | | TESTS | | | [...] | + + + + + | [facility] | [address] | [place] [address] | | | SERVICES, CORE | EULALIO [...] [facility] | [address] | [place] [address] | | | SERVICES, CORE | PARK [...] | | | LABORATORY | | | UKRAINIAN | | | SERVICES, | | | [...] | + + + + + | [facility] [employer] | [address] | [place] [address] | | | SERVICES, KOKI | EULALIO [...] IKERAM | [address] | [place], [place] | | | MARISSA JULIAN OF CARE | [facility] | [address] | | | TESTS | | | [...] (H) | 60 - 99 mg/dL | [facility] - | | | GLUCOSE, [...] YANETHQUAM | [address] | [place], [place] | | | IESHA POINT OF CARE | [address] | [address] | | | TESTS | | | [...] CINTRON | [address] | [place], [place] | | | MARISSA JULIAN OF CHE | [facility] | [address] | | | TESTS | | | [...] | + + + + + | [employer] | [address] [address] | [place] [address] | | | SERVICES, CORE | EULALIO [...] [facility] | [address] | [place] [address] | | | KOKI STUART | PARK [...] | | | LABORATORY | | | UKRAINIAN | | | SERVICES, | | | [...] | + + + + + | [facility] | [address] | [place] [address] | | | SERVICES, CORE | EULALIO [...] | + + + + + | [facility] | [address] | [place] [address] | | | SERVICES, CORE | EULALIO [...] | | | LABORATORY | | | UKRAINIAN | | | SERVICES, | | | [...] [facility] | [address] | [place] [address] | | | SERVICES, CORE | PARK [...] | + + + + + | [facility] | [address] | [place] [address] | | | SERVICES, CORE | PARK [...] [facility] | [address] | [place] [address] | | | SERVICES, CORE | PARK [...] | + + + + + | [facility] | [address] | [place] [address] | | | SERVICES, [facility] | [address] | | | + + + + + X-RAY PORTABLE CHEST 1 VIEW (12/09/2018 5:41 AM PDT) + + | Specimen | + + | | + + + + + | Narrative | Performed At | + + + | EXAM: NM CHEST 1 VIEW HISTORY: Shortness of breath. Status post | [facility] | | left upper lobectomy. COMPARISON: Yesterday [...] Note | + + | 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, Mir Vracha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 - 12/09/2018 7:45 AM PDT EXAM: NM CHEST 1 | | VIEW HISTORY: Shortness [...] [facility] | [address] | [place] [address] | | | SERVICES, CORE | PARK [...] | | | LABORATORY | | | UKRAINIAN | | | SERVICES, | | | [...] | + + + + + | [facility] | [address] | [place] [address] | | | KOKI STUART | EULALIO [...] - [facility] | [address] | [place], [place] | | | MARISSA JULIAN OF CARE | [address] | [address] | | | TESTS | | | [...] | + + + + + | [facility] | [address] | [place] [address] | | | SERVICES, CORE | EULALIO [...] | | | LABORATORY | | | UKRAINIAN | | | SERVICES, | | | [...] | + + + + + | [facility] | [address] | [place] [address] | | | SERVICES, CORE | EULALIO [...] | | | LABORATORY | | | UKRAINIAN | | | SERVICES, | | | [...] [facility] | [address] | [place] [address] | | | SERVICES, CORE | [address] | | | + + + + + X-RAY PORTABLE CHEST 1 VIEW (12/08/2018 4:58 AM PDT) + + | Specimen | + + | | + + + + + | Narrative | Performed At | + + + | EXAM: NM CHEST 1 VIEW HISTORY: SoB COMPARISON: Chest [...] Interface - 12/08/2018 10:59 AM PDT EXAM: NM CHEST 1 | | VIEW HISTORY: SoB [...] [facility] | [address] | [place] [address] | | | KOKI STUART | E[address] [...] | | | LABORATORY | | | UKRAINIAN | | | SERVICES, | | | [...] | + + + + + | [facility] | [address] | [place] [address] | | | SERVICES, CORE | EULALIO [...] | + + + + + | [facility] | [address] | [place] [address] | | | SERVICES, CORE | EULALIO [...] operation. | | | Dereck Rodriguez MD [facility] [address] [facility] | | | [place] [address] | | + + + PROCEDURE NOTE [...] | | | attempt. Midline lot number [id number]; there was excellent blood | | | [...] Performed At | + ----+ + | [facility] | [facility] | | [facility]chocardi[facility] [address] | CARDIOLOGY | | [place], [place] [address] Ph: | | | Pt Name: SUSSYJACKIE ALLRED | | | Study Date/Time 12/07/2018 / 8:45:36 AMMRN: [id number] | | | Most recent prior: 11/26/2018Acc #: [id number] | | | No. previous echos: 1DOB: 1950 68 years Heart | | | Rate: 88 bpmHeight: 64.0 in Blood | | | Pressure: 104/64 mm/HgWeight: 145.0 lb | | | Gender: FBSA: 1.71 m | | | Order ID: [id number] Study | | | [facility] Gayle Michael RCSSonographer 2:Referring | [...] Report | | | electronically signed by: [id number] Kathleen Sam MD (12/07/2018, | | | [...] | | | |Report electronically signed by: [id number] Kathleen Sam MD (12/07/2018, 4:42:18 PM) | | | | | | | | | | | | Final | | + ----+ + + + | Procedure Note | + + | Interface, Cardiology Results - 12/07/2018 4:42 PM [facility] | | [facility] Echocardiography Laboratory [address] [place] [address] | | [place], [place] [address] Pt Name: SUSSY REEVES | | CHALINO Study Date/Time 12/07/2018 / 8:45:36 AMMRN: [id number] Most | | recent prior: 11/26/2018Acc #: [id number] No. previous echos: 1DOB: | | 1950 68 years Heart Rate: 88 bpmHeight: 64.0 in Blood | | Pressure: 104/64 mm/HgWeight: 145.0 lb Gender: FBSA: | | 1.71 m | | Order ID: [id number] Study [facility] [place] | | [facility] 2:Referring Provider: Dennis AllredModalities Performed: 2D, [...] and indexed values Report electronically signed by: [id number] | | Kathleen Sam MD (12/07/2018, 4:42:18 [...] | | | |Report electronically signed by: [id number] Kathleen Sam MD (12/07/2018, 4:42:18 PM) | | | | | | | | Final | + + + + + + + | Performing | Address | City/State/Zipcode | Phone Number | | Organization | | | | + + + + + | [facility] | [address] | [place], [place] | | | CARDIOLOGY | [address] | [address] | | + + + + + X-RAY PORTABLE CHEST 1 VIEW (12/07/2018 5:56 AM PDT) + + | Specimen | + + | | + + + + + | Narrative | Performed At | + + + | EXAM: NM CHEST 1 VIEW HISTORY: SoB COMPARISON: Chest [...] Interface - 12/07/2018 12:19 PM PDT EXAM: NM CHEST 1 | | VIEW HISTORY: SoB [...] [facility] | [address] | [place] [address] | | | SERVICES, CORE | PARK [...] [facility] | [address] | [place] [address] | | | SERVICES, CORE | EULALIO [...] | | | LABORATORY | | | UKRAINIAN | | | SERVICES, | | | [...] the MDRD equation recommended by the | [facility] | | National Kidney Disease [...] | + + + + + | [facility] | [address] | [place] [address] | | | SADE, CORE | EULALIO [...] | + + + + + | [facility] | [address] | [place] [address] | | | SERVICES, KOKI | [address] [...] | + + + + + | [facility] | [address] | [place] [address] | | | SERVICES, CORE | EULALIO [...] | | | LABORATORY | | | UKRAINIAN | | | SERVICES, | | | [...] | + + + + + | [facility] | [address] | [place] [address] | | | KOKI STUART | [address] | | | + + + + + X-RAY PORTABLE CHEST 1 VIEW (12/06/2018 6:10 AM PDT) + + | Specimen | + + | | + + + + + | Narrative | Performed At | + + + | EXAM: NM CHEST 1 VIEW HISTORY: SoB COMPARISON: Yesterday [...] Interface - 12/06/2018 8:38 AM PDT EXAM: NM CHEST 1 | | VIEW HISTORY: SoB [...] | + + + + + | [facility] | [address] | [place] [address] | | | SERVICES, CORE | EULALIO [...] Images archived to | | | institution server manager | | + + + X-RAY PORTABLE CHEST 1 VIEW (12/05/2018 5:59 AM PDT) + + | Specimen | + + | | + + + + + | Narrative | Performed At | + + + | EXAM: NM CHEST 1 VIEW HISTORY: post left thoracotomy, [...] Interface - 12/05/2018 9:53 AM PDT EXAM: NM CHEST 1 | | VIEW HISTORY: post [...] Radial Catheter size: 3 | | | yemeni x 5 cm Number of attempts: 3 [...] [facility] | [address] | [place] [address] | | | SERVICES, CORE | EULALIO [...] | + + + + + | [facility] | [address] | [place] [address] | | | SERVICES, CORE | EULALIO [...] | | | LABORATORY | | | UKRAINIAN | | | SERVICES, | | | [...] | + + + + + | [facility] | [address] | [place] [address] | | | SERVICES, CORE | [address] | | | + + + + + X-RAY PORTABLE CHEST 1 VIEW (12/04/2018 6:32 PM PDT) + + | Specimen | + + | | + + + + + | Narrative | Performed At | + + + | EXAM: NM CHEST 1 VIEW HISTORY: Status post left [...] Interface - 12/05/2018 9:54 AM PDT EXAM: NM CHEST 1 | | VIEW HISTORY: Status [...] | + + + + + | [facility] | [address] | [place] [address] | | | SERVICES, CORE | EULALIO [...] | + + + + + | [facility] | [address] | [place] [address] | | | SERVICES, CORE | EULAL[address] [...] | | | LABORATORY | | | UKRAINIAN | | | SERVICES, | | | [...] + + | Performing | Address | City/State/[facility] Centercode | Phone Number | | Organization | | | | + + + + + | [facility] | [address] | [place] [address] | | | SERVICES, CORE | [address] [...] (H) | 60 - 99 mg/dL | [facility] - | | | GLUCOSE, | | [...] [facility] | [address] | [place], [place] | | | MARISSA JULIAN OF CHE | [address] | [address] | | | TESTS | | | | + + + + + OPERATION RECORD (12/04/2018 4:05 PM PDT) + + | Procedure Note | + + | Manoj Kumar MD - 12/04/2018 4:05 PM PDT Date of Service: 12/04/2018 Attending | | Surgeon:Manoj Kumar MD Fruit Canner(s):Pritesh Chang | | Bethel Quevedo MD Preoperative [...] ribs were reapproximated using | | multiple utbywx-xc-rzaxp #2 Vicryl sutures. Serratus closed with #1 Vicryl, | | subcutaneous tissue closed with 2-0 Vicryl, skin closed with 4-0 Vicryl. Sterile | | dressings were applied. A single 28-English chest tube was placed through the inferior [...] 12/04/2018 15:15:41DT: 12/04/2018 16:05:12Job #: | | [id number] | + + CAPILLARY BLOOD GLUCOSE (NO [...] [facility] | [address] | [place], [place] | | | IESHA POINT OF CARE | [address] | [address] | | | TESTS | | | [...] [facility] | [address] | [place], [place] | | | MARISSA JULIAN OF CARE | [address] | [address] | | | TESTS | | | [...] [facility] | [address] | [place], [place] | | | MARISSA JULIAN OF CARE | [address] | [phone] | | | TESTS | | | [...] [facility] | [address] | [place], [place] | | | [facility] | [address] | [address] | | | TESTS | | | [...] edition): | | | | | | [id number]: The | | | | | | [...] PathologistPathology, | | | | | | [facility] [employer] | | | | | | University [...] number | | | | | | [id number]. Lymph node, | | | | | [...] surfaces. | | | | | | Storage Garage Manager sections | | | | | | [...] | | | | | | density, food service representative | | | | | | [...] mass. | | | | | | Storage Garage Manager sections | | | | | | [...] | | | | | | from [id number]: 3.2 cm | | | | | [...] mass, | | | | | | food service representative sections, | | | | | | to include relationship | | | | | | with pleura in | | | | | | [id number]: Subpleural | | | | | | induration, | | | | | | food service representative | | | | | | [id number]: Uninvolved | | | | | | parenchyma, | | | | | | food service representative | | | | | | [id number]: 1 density | | | | | | suggestive of lymph | | | | | | node, [id number]: 1 | | | | | | [...] PathologistPathology, | | | | | | [facility] | | | | [...] PathologistPathology, | | | | | | [facility] | | | | [...] PathologistPathology, | | | | | | [facility] | | | | [...] PathologistPathology, | | | | | | [facility] | | | | [...] PathologistPathology, | | | | | | [facility] | | | | [...] PathologistPathology, | | | | | | [facility] | | | | [...] PathologistPathology, | | | | | | [facility] | | | | [...] PathologistPathology, | | | | | | [facility] | | | | [...] PathologistPathology, | | | | | | [facility] | | | | [...] PathologistPathology, | | | | | | [facility] | | | | [...] PathologistPathology, | | | | | | [facility] | | | | [...] PathologistPathology, | | | | | | [facility] | | | | [...] [place] | | | | | | [place] that point | | | | + [...] | + + + + + | [facility] | [address] | [place] [address] | | | PATHOLOGY | [address] | | | + + + + + FINE NEEDLE ASPIRATE (12/04/2018 8:06 AM PDT) + + + + + + | Component | Value | Ref Range | Performed | Pathologist | | | | | At | Signature | + + + + + + | Addendum 1 | Addendum created in | | [facility] | Addendum | | | error. | | LABORATORY | electronically | | | | | SERVICES, | signed by Beck | | | | | [facility] | Christiano Ta MD on | | [...] case | | | | | | ([id number])]. No | | | | | | definite carcinoma cells | | | | | | seen are seen in this | | | | | | sampling, however see | | | | | | case [id number]. Case | | | | | | [...] PathologistPathology, | | | | | | [facility] | | | | | | [place] My electronic | | | | | [...] PathologistPathology, | | | | | | [facility] | | | | | | [place] | | | | + + + [...] | + + + + + | [facility] | [address] | [place] [address] | | | SERVICES, [facility] | | | | | HE[facility] + HEALING | | | | + + + + + | [facility] | [address] | [place] [address] | | | PATHOLOGY | [address] [...] [facility] | [address] | [place], [place] | | | MARISSA JULIAN OF CHE | [address] | [address] | | | TESTS | | | [...] | | | HOURS, First dose on [facility] 12/12/18 | | AM PDT | [...] TWICE DAILY NEEDED, | | | Starting [facility] 12/12/18 at 1241, | | | [...]
--- OUTSIDE RECORDS SUMMARY | ~2020-03-30 | XMS | Encounter Summary ---
Demographics + + + | Address | [address] | | | [place] [address] | + + + | Home Phone | | + + + | Preferred Language | Unknown | + + + | Marital Status | Single | + + + | Muslim Affiliation | NRP | + + + [...] Team Providers + +------+ + | Care Drug Purchaser Name | Role | Phone | + +------+ + | Lauryn Stuart | PCP | | + +------+ + Encounter Details +--------+------+ + + + | Date | Type | Department | Care Team | Description | +--------+------+ + + + | 11/26/ | Lab | Laboratory at [facility] | | Neoplasm | | 2019 | | [address] | | | | | | [facility] | | | | | | and Healing, | | | | | | [address] | | | | | | [place], [place] | | | | | | [address] | | | | | | [phone] | | | +--------+------+ + + + Social History + + [...] [place] | | | | | | [address] | | | | | | [place] [address] | | | | | | [phone] | | | | | | | | +--------+---------+ + + + | 04/30/ | Office | Otolaryngology | Augustine Nolan | | | 2019 | Visit | | MD Debbie [address] | | | | | | [address] | | | | | | [place] | | | | | | [address] | | | | | | [phone] | | | | | | | | +--------+---------+ + + + documented as of this encounter Procedures + +--------+ + + + | Procedure Name | Priori | Date/Time | Associated Diagnosis | Comments | | | ty | | | | + +--------+ + + + | CBC AND AUTO DIFF | Routin | 11/26/2018 | Neoplasm | Results for this | | | e | 3:18 PM | | procedure are in the | | | | PDT | | results section. | + +--------+ + + + | CONFIRMATORY ABO/RH | Routin | 11/26/2018 | Neoplasm | Results for this | | | e | 3:18 PM | | procedure are in the | | | | PDT | | results section. | + +--------+ + + + | INR | Routin | 11/26/2018 | Neoplasm | Results for this | | | e | 3:18 PM | | procedure are in the | | | | PDT | | results section. | + +--------+ + + + | CBC, WITH | Routin | 11/26/2018 | Neoplasm | Results for this | | DIFFERENTIAL | e | 3:18 PM | | procedure are in the | | | | PDT | | results section. | + +--------+ + + + | RENAL FUNCTION SET | Routin | 11/26/2018 | Neoplasm | Results for this | | (NA,K,CL,CO2,BUN,CRE | e | 3:18 PM | | procedure are in the | | AT,GLUC,CA,PHOS,ALB | | PDT | | results section. | | ) | | | | | + +--------+ + + + | ANTIBODY SCREEN | Routin | 11/26/2018 | Neoplasm | Results for this | | | e | 3:18 PM | | procedure are in the | | | | PDT | | results section. | + +--------+ + + + | TYPE AND SCREEN | Routin | 11/26/2018 | Neoplasm | Results for this | | | e | 3:18 PM | | procedure are in the | | | | PDT | | results section. | + +--------+ + + + | ABO & RH TYPE | Routin | 11/26/2018 | Neoplasm | Results for this | | | e | 3:18 PM | | procedure are in the | | | | PDT | | results section. | + +--------+ + + + documented in this encounter Results CONFIRMATORY ABO/RH (11/26/2018 3:18 PM PDT) + + + + + + | Component | Value | Ref Range | Performed | Pathologist | | | | | At | Signature | + + + + + + | ABO Group | O | | [facility] | | | | | | LABORATORY | | | | | | SERVICES, | | | | | | TRANSFUSION | | | | | | MEDICINE | | + + + + + + | Rh Type | Positive | | [facility] | | | | | | LABORATORY | | | | | | SERVICES, | | | | | | TRANSFUSION | | | | | | MEDICINE | | + + + + + + + + | Specimen | + + | Blood - Blood | | (substance) | + + + + + + + | Performing | Address | City/State/Zipcode | Phone Number | | Organization | | | | + + + + + | [facility] | [address] | [place] [address] | | | SERVICES, | [address] | | | | TRANSFUSION MEDICINE | | | | + + + + + ANTIBODY SCREEN (11/26/2018 3:18 PM PDT) + + + + + + | Component | Value | Ref Range | Performed | Pathologist | | | | | At | Signature | + + + + + + | Antibody | Negative | | [facility] | | | Screen | | | LABORATORY | | | | | | SERVICES, | | | | | | TRANSFUSION | | | | | | MEDICINE | | + + + + + + + + | Specimen | + + | Blood - Blood | | (substance) | + + + + + + + | Performing | Address | City/State/Zipcode | Phone Number | | Organization | | | | + + + + + | [facility] | [address] | [place] [address] | | | SERVICES, | [address] | | | | TRANSFUSION MEDICINE | | | | + + + + + ABO & RH TYPE (11/26/2018 3:18 PM PDT) + + + + + + | Component | Value | Ref Range | Performed | Pathologist | | | | | At | Signature | + + + + + + | ABO Group | O | | [facility] | | | | | | LABORATORY | | | | | | SERVICES, | | | | | | TRANSFUSION | | | | | | MEDICINE | | + + + + + + | Rh Type | Positive | | [facility] | | | | | | LABORATORY | | | | | | SERVICES, | | | | | | TRANSFUSION | | | | | | MEDICINE | | + + + + + + + + | Specimen | + + | Blood - Blood | | (substance) | + + + + + + + | Performing | Address | City/State/Zipcode | Phone Number | | Organization | | | | + + + + + | [facility] | [address] | [place] [address] | | | SERVICES, | [address] | | | | TRANSFUSION MEDICINE | | | | + + + + + CBC AND AUTO DIFF (11/26/2018 3:18 PM PDT) + + + + + + | Component | Value | Ref Range | Performed | Pathologist | | | | | At | Signature | + + + + + + | WHITE CELL | 5.46 | 3.50 - 10.80 | [facility] | | | COUNT | | K/cu mm | LABORATORY | | | | | | SERVICES, | | | | | | [facility] | [facility] + | | | | | | HEALING | | + + + + + + | RED CELL | 3.28 (L) | 4.00 - 5.20 | [facility] | | | COUNT | | M/cu mm | LABORATORY | | | | | | SERVICES, | | | | | | [facility] | | [facility] + | | | | | | HEALING | | + + + + + + | HEMOGLOBIN | 10.9 (L) | 12.0 - 16.0 | [facility] | | | | | g/dL | LABORATORY | | | | | | SERVICES, | | | | | | [facility] | | [facility] + | | | | | | HEALING | | + + + + + + | HEMATOCRIT | 33.2 (L) | 36.0 - 46.0 % | [facility] | | | | | | LABORATORY | | | | | | SERVICES, | | | | | | [facility] | | [facility] + | | | | | | HEALING | | + + + + + + | MCV | 101.2 (H) | 80.0 - 100.0 fL | [facility] | | | | | | LABORATORY | | | | | | SERVICES, | | | | | | [facility] | | | [facility] + | | | | | | HEALING | | + + + + + + | MCHC | 32.8 | 32.0 - 36.0 | [facility] | | | | | g/dL | LABORATORY | | | | | | SERVICES, | | | | | | [facility] | | | [facility] + | | | | | | HEALING | | + + + + + + | RDW SD | 45.4 | 35.1 - 46.3 fL | [facility] | | | | | | LABORATORY | | | | | | SERVICES, | | | | | | [facility] | | | [facility] + | | | | | | HEALING | | + + + + + + | PLATELET | 333 | 150 - 400 K/cu | [facility] | | | COUNT | | mm | LABORATORY | | | | | | SERVICES, | | | | | | [facility] | | | | [facility] + | | | | | | HEALING | | + + + + + + | MPV | 9.0 (L) | 9.7 - 12.3 fL | [facility] | | | | | | LABORATORY | | | | | | SERVICES, | | | | | | [facility] | | | | | | [facility] + | | | | | | HEALING | | + + + + + + | NRBC% | 0.0 | 0.0 - 0.3 % | [facility] | | | | | | LABORATORY | | | | | | SERVICES, | | | | | | [facility] | [facility] | | | | [facility] + | | | | | | HEALING | | + + + + + + | NRBC# | 0.00 | 0.00 - 0.02 | [facility] | | | | | K/cu mm | LABORATORY | | | | | | SERVICES, | | | | | | [facility] | | | [facility] + | | | | | | HEALING | | + + + + + + | NEUTROPHIL | 62.8 | 50.0 - 70.0 % | [facility] | | | % | | | LABORATORY | | | | | | SERVICES, | | | | | | [facility] | | | | | | [facility] + | | | | | | HEALING | | + + + + + + | LYMPHOCYTE | 24.5 | 18.0 - 42.0 % | [facility] | | | % | | | LABORATORY | | | | | | SERVICES, | | | | | | [facility] | | | | | | [facility] + | | | | | | HEALING | | + + + + + + | MONOCYTE % | 10.4 (H) | 3.5 - 9.0 % | [facility] | | | | | | LABORATORY | | | | | | SERVICES, | | | | | | [facility] | | | | | [facility] + | | | | | | HEALING | | + + + + + + | EOS % | 1.3 | 1.0 - 3.0 % | [facility] | | | | | | LABORATORY | | | | | | SERVICES, | | | | | | [facility] | | | | | | [facility] + | | | | | | HEALING | | + + + + + + | BASO % | 0.5 | 0.0 - 2.0 % | [facility] | | | | | | LABORATORY | | | | | | SERVICES, | | | | | | [facility] | | | | | | [facility] + | | | | | | HEALING | | + + + + + + | IG% | 0.5Comment: Increased | 0.0 - 1.0 % | [facility] | | | | immature granulocytes | | LABORATORY | | | | (IG) define a left | | SERVICES, | | | | shift. Immature | | [facility]ENTER FOR | | | | granulocytes (IG) are an | | HEALTH + | | | | automated count of | | HEALING | | | | metamyelocytes, | | | | | | myelocytes and | | | | | | promyelocytes. Bands | | | | | | are not included in the | | | | | | IG count. Bands are | | | | | | included in the | | | | | | neutrophil count. | | | | + + + + + + | NEUTROPHIL | 3.42 | 1.80 - 7.70 | [facility] | | | # | | K/cu mm | LABORATORY | | | | | | SERVICES, | | | | | | [facility] | | | | | [facility] + | | | | | | HEALING | | + + + + + + | LYMPHOCYTE | 1.34 | 1.00 - 4.80 | [facility] | | | # | | K/cu mm | LABORATORY | | | | | | SERVICES, | | | | | | [facility] | | | | | | [facility] + | | | | | | HEALING | | + + + + + + | MONOCYTE # | 0.57 | 0.10 - 0.90 | [facility] | | | | | K/cu mm | LABORATORY | | | | | | SERVICES, | | | | | | [facility] | | | | | | [facility] + | | | | | | HEALING | | + + + + + + | EOS # | 0.07 | 0.00 - 0.50 | [facility] | | | | | K/cu mm | LABORATORY | | | | | | SERVICES, | | | | | | [facility] | | | | | | [facility] + | | | | | | HEALING | | + + + + + + | BASO # | 0.03 | 0.00 - 0.10 | [facility] | | | | | K/cu mm | LABORATORY | | | | | | SERVICES, | | | | | | [facility] | | | | | | [facility] + | | | | | | HEALING | | + + + + + + | IG# | 0.03 | 0.00 - 0.10 | [facility] | | | | | K/cu mm | LABORATORY | | | | | | SERVICES, | | | | | | [facility] | | | | | | [facility] + | | | | | | HEALING | | + + + + + + + + | Specimen | + + | Blood - Blood | | (substance) | + + + + + | Narrative | Performed At | + + + | Increased immature granulocytes (IG) define a left shift. | [facility] | | Immature granulocytes (IG) are an automated count of metamyelocytes, | LABORATORY | | myelocytes and promyelocytes. Bands are not included in the IG count. | SERVICES, | | Bands are included in the neutrophil count. | [facility] | | | HEALTH + | | | HEALING | + + + + + + + + | Performing | Address | City/State/Zipcode | Phone Number | | Organization | | | | + + + + + | [facility] | [address] | [place] [address] | | | [facility] | | | | | HEALTH + HEALING | | | | + + + + + RENAL FUNCTION SET (NA,K,CL,CO2,BUN,CREAT,GLUC,CA,PHOS,ALB ) (11/26/2018 3:18 PM PDT) + +---------+ + + + | Component | Value | Ref Range | Performed | Pathologist | | | | | At | Signature | + +---------+ + + + | GLUCOSE, | 101 (H) | 70 - 99 mg/dL | [facility] | | | PLASMA | | | LABORATORY | | | (LAB) | | | SERVICES, | | | | | | [facility] | | | | | | [facility] + | | | | | | HEALING | | + +---------+ + + + | BUN, PLASMA | 15 | 6 - 20 mg/dL | [facility] | | | (LAB) | | | LABORATORY | | | | | | SERVICES, | | | | | | [facility] | | | | | | [facility] + | | | | | | HEALING | | + +---------+ + + + | CREATININE | 0.97 | 0.60 - 1.10 | [facility] | | | PLASMA | | mg/dL | LABORATORY | | | (LAB) | | | SERVICES, | | | | | | [facility] | | | | | | [facility] + | | | | | | HEALING | | + +---------+ + + + | EGFR | >60 | >60 mL/min | [facility] | | | - | | | LABORATORY | | | TANZANIAN | | | SERVICES, | | | | | | [facility] | | | | | | [facility] + | | | | | | HEALING | | + +---------+ + + + | EGFR NON | 57 (L) | >60 mL/min | [facility] | | | -INGRIS | | | LABORATORY | | | RICAN | | | SERVICES, | | | | | | [facility] | | | | [facility] + | | | | | | HEALING | | + +---------+ + + + | SODIUM, | 143 | 136 - 145 | [facility] | | | PLASMA | | mmol/L | LABORATORY | | | (LAB) | | | SERVICES, | | | | | | [facility] | | | | | | [facility] + | | | | | | HEALING | | + +---------+ + + + | POTASSIUM, | 3.8 | 3.4 - 5.0 | [facility] | | | PLASMA | | mmol/L | LABORATORY | | | (LAB) | | | SERVICES, | | | | | | [facility] | [facility] | | | | [facility] + | | | | | | HEALING | | + +---------+ + + + | CHLORIDE, | 105 | 97 - 108 mmol/L | [facility] | | | PLASMA | | | LABORATORY | | | (LAB) | | | SERVICES, | | | | | | [facility] | | | | | | [facility] + | | | | | | HEALING | | + +---------+ + + + | TOTAL CO2, | 29 | 21 - 32 mmol/L | [facility] | | | PLASMA | | | LABORATORY | | | (LAB) | | | SERVICES, | | | | | | [facility] | | | | | | [facility] + | | | | | | HEALING | | + +---------+ + + + | CALCIUM, | 8.0 (L) | 8.6 - 10.2 | [facility] | | | PLASMA | | mg/dL | LABORATORY | | | (LAB) | | | SERVICES, | | | | | | [facility] | | | | | [facility] + | | | | | | HEALING | | + +---------+ + + + | CALCIUM(ALB | 8.8 | 8.6 - 10.2 | [facility] | | | CORRECTED) | | mg/dL | LABORATORY | | | | | | SERVICES, | | | | | | [facility] | | | | | | [facility] + | | | | | | HEALING | | + +---------+ + + + | ALBUMIN, | 3.0 (L) | 3.5 - 4.7 g/dL | [facility] | | | PLASMA | | | LABORATORY | | | (LAB) | | | SERVICES, | | | | | | [facility] | | | | | | [facility] + | | | | | | HEALING | | + +---------+ + + + | PHOSPHORUS, | 2.7 | 2.4 - 4.7 mg/dL | [facility] | | | PLASMA | | | LABORATORY | | | (LAB) | | | SERVICES, | | | | | | [facility] | | | | | | HE[facility] + | | | | | | HEALING | | + +---------+ + + + | POTASSIUM | No Hemo | | [facility] | | | CMNT | | | LABORATORY | | | | | | SERVICES, | | | | | | [facility] | | | | | | [facility] + | | | | | | HEALING | | + +---------+ + + + | ANION GAP | 9 | 4 - 11 mmol/L | [facility] | | | | | | LABORATORY | | | | | | SERVICES, | | | | | | [facility] | | | | | | [facility] + | | | | | | HEALING | | + +---------+ + + + | ANION | 11 | 4 - 11 mmol/L | [facility] | | | GAP(ALB | | | LABORATORY | | | CORRECTED) | | | SERVICES, | | | | | | [facility] | | | | | | [facility] + | | | | | | HEALING | | + +---------+ + + + [...] Information: <60 mL/min/1.73 sq m | SERVICES, | | Chronic Kidney Disease <15 mL/min/1.73 sq m | [facility] | | Kidney Failure Estimated GFR greater than 60 mL/min/1.73 sq m is of | HEALTH + | | limited clinical value. The MDRD equation is not valid in the | HEALING | | following situations: - Patients under [...] | + + + + + | [facility] | [address] | [place] [address] | | | [facility] | | | | | HEALTH + HEALING | | | | + + + + + INR (11/26/2018 3:18 PM PDT) + +-------+ + + + | Component | Value | Ref Range | Performed | Pathologist | | | | | At | Signature | + +-------+ + + + | INR | 0.93 | 0.90 - 1.20 INR | [facility] | | | | | | LABORATORY | | | | | | SERVICES, | | | | | | CORE | | + +-------+ + + + + + | Specimen | + + | Blood - Blood | | (substance) | + + + + + | Narrative | Performed At | + + + | INR Therapeutic ranges for full anticoagulation: INR for | [facility] | | Venous Thromboembolism (2.0 - 3.0) INR INR for | LABORATORY | | most patients with mech. valves (2.5 - 3.5) INR | [facility] | + + + + + + + + | Performing | Address | City/State/Zipcode | Phone Number | | Organization | | | | + + + + + | [facility] | [address] | [place] [address] | | | [facility] | [address] | | | + + + + + documented in this encounter Visit Diagnoses + + | Diagnosis | + + | Neoplasm Neoplasm of unspecified nature, site unspecified | + + documented in this encounter
--- OUTSIDE RECORDS SUMMARY | ~2020-03-30 | XMS | Encounter Summary ---
Demographics + + + | Address | [address] | | | [place] [address] | + + + | Home Phone | | + + + | Preferred Language | Unknown | + + + | Marital Status | Single | + + + | Congregational Affiliation | Unknown | + + + | Race | Unknown | + + + | Ethnic Group | Unknown | + + + Author + + + | Author | [facility] | | | and Jakobana | + + + | Organization | [facility] [...] Team Providers + +------+ + | Care Museum Guide Name | Role | Phone | + [...] neoplasm of | Boubacar Daniels, | [place] | | | | | unspecified | MD [address] | [place], | | | | | part of | [address] | [place] [address] | | | | | unspecified | [address] | Phone: | | | | | bronchus or | [place], | [phone] | | | | | lung (HCC) | [place] [address] | Fax: | | | | | Procedures | Phone: | [phone] | | | | | [place] VITAMIN | [phone] | | | | | | B12 | Fax: | | | | | | INJECTION, | [phone] | | | | | | [address] [place] | | | | | | | ONDANSETRON | | | | | | | ORAL [place] | | | | | | | ORAL | | | | | | | DEXAMETHASON | | | | | | | E, .25 MG | | | | | | | [place] INJ., | | | | | | | APREPITANT, | | | | | | | 1 MG [place] | | | | | | | PEMETREXED | | | | | | | INJECTION, | | | | | | | 10 MG [place] | | | | | | | CARBOPLATIN | | | | | | | INJECTION, | | | | | | | 50 MG [place] | | | | | | | ADRENALIN | | | | | | | EPINEPHRINE | | | | | | | INJECT, .1 | | | | | | | MG [place] | | | | | | | DIPHENHYDRAM | | | | | | | INE HCL | | | | | | | INJECTIO, 50 | | | | | | | MG [place] | | | | | | | METHYLPREDNI | | | | | | | SOLONE | | | | | | | INJECTION, | | | | | | | 125 MG [place] | | | | | | | ALBUTEROL | | | | | | | COMP CON, 1 | | | | | | | MG [place] | | | | | | | ALBUTEROL | | | | | | | NON-COMP | | | | | | | CON, 1 MG | | | | | | | [place] | | | | | | | INJECTION, | | | | | | | FAMOTIDINE, | | | | | | | 20 MG [place] | | | | | | | NORMAL | | | | | | | SALINE | | | | | | | SOLUTION | | | | | | | INFUS, 500 | | | | | | | ML [place] | | | | | | | NORMAL | | | | | | | SALINE | | | | | | | SOLUTION | | | | | | | INFUS, 250 | | | | | | | ML [place] | | | | | | | STERILE | | | | | | | WATER/SALINE | | | | | | | , 10 ML [place] | | | | | | | CHEMOTHER, | | | | | | | IV PUSH,EA | | | | | | | ADD DRUG [place] | | | | | | | CHEMOTHER, | | | | | | | IV INFUSION, | | | | | | | 1 HR [place] | | | | | | | CHEMOTHER, | | | | | | | IV INFUSION, | | | | | | | EA HR [place] | | | | | | | CHEMOTHER,NO | | | | | | | N-HORMONE | | | | | | | ANTI-NEOPL, | | | | | | | SUB-Q/IM [place] | | | | | | | CHEMOTHER | | | | | | | HORMON | | | | | | | ANTINEOPL | | | | | | | SUB-Q/IM [place] | | | | | | | | | | | | | | PALONOSETRON | | | | | | | HCL, [address] | | | +--------+--------+ + + + + Encounter Details +--------+ + + + + | Date | Type | Department | Care Team | Description | +--------+ + + + + | 04/24/ | Hospital | [facility] | Ad[place], | 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 Discharged ambulatory. With family. To home. Verified that patient has antinausea medications at home. Future appointments and After Visit Summary (AVS) provided. Bailee Dominguez RN - 04/24/2019 11:45 AM PDTE nergy level: improving, is having less difficulty and pain with swallowing. Fever or chills: none Appetite: improving, was able to eat minestrone soup for dinner with crackers and cheese. Nausea and/or vomiting: none Bowels: moving ok Numbness and tingling: no Changes Bleeding or bruising: no issues Karnofsky: 80-90 Nurses notes: here for fluid infusion today, starting to feel better. documented in this encounter Plan of Treatment [...] [address] | | | | | | [place] [address] | | | | | | [phone] | | | | | | | [...] heparin 100 units/mL flush | Given | 04/24/20 | 500 | | | | injection 500 Units 500 Units (5 | | 19 1:20 | Units | | | | mL), Intracatheter, PRN, Line | | PM PDT | | | | | Care, Starting [facility] 04/24/19 at 1137 | | | | | | + +--------+ +-------+------+------+ +---+---+ | | | +---+---+ + +---------+ +---+-------+---+ | sodium chloride 0.9% (NS) | New Bag | 04/24/20 | | 500 | | | infusion at 500 mL/hr, | | 19 11:41 | | mL/hr | | | Intravenous, ONCE, [facility] 04/24/19 at | | AM PDT | | | | | 1200, For 1 dose, 1000 cc ns iv | | | | | | | over 2 hours., | | | | | | + +---------+ +---+-------+---+ +---+---+ | | | +---+---+ documented in this encounter"
--- OUTSIDE RECORDS SUMMARY | ~2020-03-30 | XMS | Encounter Summary ---
Demographics + + + | Address | [address] | | | [place] [address] | + + + | Home Phone [...] + + + | Author | [facility] | + + + | Organization | [facility] | + + + | Address | Unknown | + + + | Phone | Unavailable | + + + Support + + +---------+ + | Name | Relationship | Address | Phone | + + +---------+ + | Laura Allred | ECON | Unknown | | + + +---------+ + Care Team Providers + +------+ + | Care Cattery Operator Name | Role | Phone | + +------+ + | Lauryn Stuart | PCP | | + +------+ + Encounter Details +--------+ + + + + | Date | Type | Department | Care Team | Description | +--------+ + + + + | 10/10/ | Pharmacy | Pharmacy @ [facility] | | | | 2019 | Visit | [address] | | | | | [address] Mailcode: | | | | | | [facility] | | | | | | and Healing, | | | | | | [address] | | | | | | [place], [place] | | | | | | [address] | | | +--------+ + + + [...] | | | | | | [place] [address] | | | | | | [phone] | | | | | | | | +--------+---------+ + + + | 04/30/ | Office | Otolaryngology | Augustine Nolan | | | 2019 | Visit | | MD Debbie [address] | | | | | | [address] | | | | | | [place] | | | | | | [address] | | | | | | [phone] | | | | | | | | +--------+---------+ + + + documented as of this encounter Visit Diagnoses Not on filedocumented in this encounter
--- OUTSIDE RECORDS SUMMARY | ~2020-03-30 | XMS | Encounter Summary ---
Demographics + + + | Address | [address] | | | [place] [address] | + + + | Home Phone | | + + + | Preferred Language | Unknown | + + + | Marital Status | Single | + + + | Buddhism Affiliation | NRP | + + + | Race | White | + + + | Ethnic Group | Not or | + + + Author + + + | Author | [facility] | + + + | Organization | [facility] | + + + | Address | Unknown | + + + | Phone | Unavailable | + + + Support + + +---------+ + | Name | Relationship | Address | Phone | + + +---------+ + | Laura Allred | ECON | Unknown | | + + +---------+ + Care Team Providers + +------+ + | Care Joint Setter Name | Role | Phone | + +------+ + | Lauryn Stuart | PCP | | + +------+ + Encounter Details +--------+ + + + + | Date | Type | Department | Care Team | Description | +--------+ + + + + | 08/14/ | Abstract | Otolaryngology [facility] | Lauryn Zhu, PROCUREMENT ENGINEER | | | 2019 | | [facility] | [address] | | | | | Swallowing at [facility] | [address] | | | | | [address] | [place] [address] | | | | | [facility] | [phone] | | | | | and Healing, | | | | | | | | | | | | Floor [place], [place] | | | | | | [address] | | | | | | [phone] | | | +--------+ + + + [...] | | 2019 | Visit | | [address] | | | | | | [place], | | | | | | [place] [address] | | | | | | [phone] | | | | | | | | +--------+---------+ + + + | 04/30/ | Office | Otolaryngology | An, Augustine | | | 2020 | Visit | | MD Debbie [address] | | | | | | [address] | | | | | | [place] | | | | | | [address] | | | | | | [phone] | | | | | | | | +--------+---------+ + + + documented as of this encounter Visit Diagnoses Not on filedocumented in this encounter
--- OUTSIDE RECORDS SUMMARY | ~2020-03-30 | XMS | Encounter Summary ---
Demographics + + + | Address | [address] | | | [place] [address] | + + + | Home Phone | | + + + | Preferred Language | Unknown | + + + | Marital Status | Single | + + + | Adventism Affiliation | NRP | + + + | Race | White | + + + | Ethnic Group | Not or | + + + Author + + + | Author | [facility] | + + + | Organization | [facility] | + + + | Address | Unknown | + + + | Phone | Unavailable | + + + Support + + +---------+ + | Name | Relationship | Address | Phone | + + +---------+ + | Laura Allred | ECON | Unknown | | + + +---------+ + Care Team Providers + +------+ + | Care Tenter Frame Back Tender Name | Role | Phone | + +------+ + | Lauryn Stuart | PCP | | + +------+ + Reason for Referral Consultation (Routine) +--------+---------+ + + + + | Status | Reason | Specialty | Diagnoses / | Referred By | Referred To | | | | | Procedures | Contact | Contact | +--------+---------+ + + + + | Closed | Other | Hematology & | Diagnoses | Jt, | Hem Faculty | | | | Oncology | Malignant | CARLO Allen | [facility] [address] | | | | | neoplasm of | [address] | | | | | lung, | Ave | Center for | | | | | unspecified | [facility] [place] | Health and | | | | | laterality, | [address] | Healing, | | | | | unspecified | Phone: | [address] | | | | | part of lung | [phone] | [facility] [place] | | | | | (HCC) | Fax: | [phone] | | | | | Procedures | [phone] | Phone: | | | | | CONSULT TO | | [phone] | | | | | HEMATOLOGY / | | Fax: | | | | | ONCOLOGY | | [phone] | | | | | PRACTICE CO | | | | | | | NEW PATIENT | | | | | | | LEVEL V CO | | | | | | | EST PATIENT | | | | | | | LEVEL V | | | +--------+---------+ + + + + Encounter Details +--------+ + + + + | Date | Type | Department | Care Team | Description | +--------+ + + + + | 12/13/ | [employer] | Cardiothoracic | Alejandro Waters NP | Malignant neoplasm | | 2019 | | Surgery at [facility] [address] | [address] | of lung, unspecified | | | | [address] | [place], [place] | laterality, | | | | Physician's | [address] | unspecified part of | | | | Pavilion, 2nd floor | [phone] | lung (HCC) (Primary | | | | [place], [place] | | Dx) | | | | [address] | | | | | | [phone] | | | +--------+ + + + [...] | | 2019 | Visit | | [address] | | | | | | Melania [place], | | | | | | [place] [address] | | | | | | [phone] | | | | | | | | +--------+---------+ + + + | 04/30/ | Office | Otolaryngology | AnAllua | | | 2019 | Visit | | MD Debbie [address] [facility] | | | | | | [address] | | | | | | [place], [place] | | | | | | [address] | | | | | | [phone] | | | | | | | | +--------+---------+ + + + documented as of this encounter Visit Diagnoses + + | Diagnosis | + + | Malignant neoplasm of lung, unspecified laterality, unspecified part of lung (HCC) - | | Primary | + + documented in this encounter
--- OUTSIDE RECORDS SUMMARY | ~2020-03-30 | XMS | Encounter Summary ---
Demographics + + + | Address | [address] | | | [place] [address] | + + + | Home Phone | | + + + | Preferred Language | Unknown | + + + | Marital Status | Single | + + + | Baptism Affiliation | NRP | + + + [...] Team Providers + +------+ + | Care Mask Layout Designer Name | Role | Phone | + [...] | | | | | | | [facility] [address] | [address] | | | [address] | | | | | | | Center for | | | | | | | Health and | | | | | | | Healing, | | | | | | | Building [address] | | | | | | | [place], [place] | | | | | | | [address] | | | | | | | Phone: | | | | | | | [phone] | | | | | | | Fax: | | | | | | | [phone] | + +--------+ + + + + [...] | | | Ave Center for | [place], [place] | 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 Specific difficulties with voicing include: poor [...] Take 50 mcg by mouth before breakfast. multivit-min/iron/folic/usu347 (HAIR, SKIN AND NAILS ADVANCED ORAL) Take [...] ticipation of surgery tomorrow. Augustine Nolan M.D. Electric Needle Specialist Laryngology and Head & Neck Surgery d ocumented in this encounter Plan of Treatment +--------+---------+ + + + | Date | Type | Specialty | Care Team | Description | +--------+---------+ + + + | 04/30/ | Office | Speech Therapy | Barbra Ramirez SLP | | | 2019 | Visit | | [address] | | | | | | Melania [place], | | | | | | [place] [address] | | | | | | [phone] | | | | | | | | +--------+---------+ + + + | 04/30/ | Office | Otolaryngology | Augustine Nolan | | 2019 | Visit | | MD Debbie [address] | | | | | | [address] | | | | | | [place], [place] | | | | | | [address] | | | | | | [phone] | | | | | | | | +--------+---------+ + + + documented as of this encounter Procedures + +--------+ + + + | Procedure Name | Priori | Date/Time | Associated Diagnosis | Comments | | | ty | | | | + +--------+ + + + | [place] | Routin | 10/08/2019 | Paralysis of [...]
--- OUTSIDE RECORDS SUMMARY | ~2020-03-30 | XMS | Encounter Summary ---
Demographics + + + | Address | [address] | | | [place] [address] | + + + | Home Phone | | + + + | Preferred Language | Unknown | + + + | Marital Status | Single | + + + | Buddhism Affiliation | Unknown | + + + | Race | Unknown | + + + | Ethnic Group | Unknown | + + + Author + + + | Author | [facility] | | | and Jakobana | + + + | Organization | [facility] | | | and [...] Team Providers + +------+ + | Care System Specialist Name | Role | Phone | [...] neoplasm of | Boubacar Daniels, | [address] | | | | | unspecified | MD [address] | [place], | | | | | part of | [address] [place] | [place] [address] | | | | | unspecified | [address] | Phone: | | | | | bronchus or | [place], | [phone] | | | | | lung (HCC) | [place] [address] | Fax: | | | | | Procedures | Phone: | [phone] | | | | | NV VITAMIN | [phone] | | | | | | B12 | Fax: | | | | | | INJECTION, | [phone] | | | | | | [address] | | | | | | | ONDANSETRON | | | | | | | ORAL NV | | | | | | | ORAL | | | | | | | DEXAMETHASON | | | | | | | E, .25 MG | | | | | | | NV INJ., | | | | | | | APREPITANT, | | | | | | | 1 MG NV | | | | | | | PEMETREXED | | | | | | | INJECTION, | | | | | | | 10 MG NV | | | | | | | CARBOPLATIN | | | | | | | INJECTION, | | | | | | | 50 MG NV | | | | | | | ADRENALIN | | | | | | | EPINEPHRINE | | | | | | | INJECT, .1 | | | | | | | MG NV | | | | | | | DIPHENHYDRAM | | | | | | | INE HCL | | | | | | | INJECTIO, 50 | | | | | | | MG NV | | | | | | | METHYLPREDNI | | | | | | | SOLONE | | | | | | | INJECTION, | | | | | | | 125 MG NV | | | | | | | ALBUTEROL | | | | | | | COMP CON, 1 | | | | | | | MG NV | | | | | | | ALBUTEROL | | | | | | | NON-COMP | | | | | | | CON, 1 MG | | | | | | | NV | | | | | | | INJECTION, | | | | | | | FAMOTIDINE, | | | | | | | 20 MG NV | | | | | | | NORMAL | | | | | | | SALINE | | | | | | | SOLUTION | | | | | | | INFUS, 500 | | | | | | | ML NV | | | | | | | NORMAL | | | | | | | SALINE | | | | | | | SOLUTION | | | | | | | INFUS, 250 | | | | | | | ML NV | | | | | | | STERILE | | | | | | | WATER/SALINE | | | | | | | , 10 ML NV | | | | | | | CHEMOTHER, | | | | | | | IV PUSH,EA | | | | | | | ADD DRUG NV | | | | | | | CHEMOTHER, | | | | | | | IV INFUSION, | | | | | | | 1 HR NV | | | | | | | CHEMOTHER, | | | | | | | IV INFUSION, | | | | | | | EA HR NV | | | | | | | CHEMOTHER,NO | | | | | | | N-HORMONE | | | | | | | ANTI-NEOPL, | | | | | | | SUB-Q/IM NV | | | | | | | CHEMOTHER | | | | | | | HORMON | | | | | | | ANTINEOPL | | | | | | | SUB-Q/IM NV | | | | | | | | | | | | | | PALONOSETRON | | | | | | | HCL, 25 MCG | | | +--------+--------+ + + + + Encounter Details +--------+ + + + + | Date | Type | Department | Care Team | Description | +--------+ + + + + | 04/08/ | Hospital | [facility] | Adolfo, | 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 | | | | INFUSION [address] | left lung (HCC) | | | | [address] [place], | [address] [place], [place] | (Primary Dx) | | | | [place] [address] | [address] | | | | | [phone] | | | +--------+ + + + [...] + + + | Blood Pressure | 128/82 | 04/08/2019 12:40 PM | | | | | PDT | | + + + + + | Pulse | 86 | 04/08/2019 12:40 PM | | | | | PDT | | + + + + + | Temperature | 36.7 C (98.1 F) | 04/08/2019 12:40 PM | | | | | PDT | | + + + + + | Respiratory Rate | 16 | 04/08/2019 12:40 PM | | | | | PDT | | + + + + + | Oxygen Saturation | 98% | 04/08/2019 12:40 PM | | | | | PDT [...] documented as of this encounter Progress Notes Hellen Barron RN - 04/08/2019 2:25 PM PDTPatient ate all of her mashed potatoes and gravy and is determined to eat more frequently medicated for pain before leaving and discha rged with friend. Verified upcoming appointment. Hellen Gaytan RN - 04/08/2019 12:40 PM PDTPatient kymberly malone ambulatory for infusion reports that she isn't eating much at all she is drinking water only. Had some cranberry juice this am and threw that up. Encouraged her to use her breakt hrough pain meds and start eating more small frequent meals. Complains of pain medicated an d ordered lunch. documented in this encounter Plan of Treatment [...] | | | | | | [place] [address] | | | | | | [phone] | | | | | | | [...] heparin 100 units/mL flush | Given | 04/08/20 | 500 | | | | injection 500 Units 500 Units ( | | 19 2:25 | Units | | | | mL), Intracatheter, PRN, Line | | PM PDT | | | | | Care, Starting 04/08/19 at | | | | | | | 1232 | | | | | | + +--------+ +-------+------+------+ +---+---+ | | | +---+---+ + +-------+ +--------+---+---+ | HYDROmorphone (DILAUDID) | Given | 04/08/20 | 0.8 mg | | | | injection 0.4-0.8 mg 0.4-0.8 mg, | | 19 2:25 | | | | | Intravenous, EVERY 1 HOUR PRN, | | PM PDT | | | | | Pain, Starting 04/08/19 at | | | | | | | 1232 | | | | | | + +-------+ +--------+---+---+ +-------+ +--------+---+---+ | Given | 04/08/20 | 0.8 mg | | | | | 19 12:48 | | | | | | PM PDT | | | | +-------+ +--------+---+---+ +---+---+ | | | +---+---+ + +---------+ +---+-------+---+ | sodium chloride 0.9% (NS) | New Bag | 04/08/20 | | 500 | | | infusion at 500 mL/hr, | | 19 12:42 | | mL/hr | | | Intravenous, ONCE, Tulou 04/08/19 at | | PM PDT | | | | | 1300, For 1 dose, 1000 cc ns iv | | | | | | | over 2 hours., | | | | | | + +---------+ +---+-------+---+ +---+---+ | | | +---+---+ documented in this encounter"
--- OUTSIDE RECORDS SUMMARY | ~2020-03-30 | XMS | Encounter Summary ---
Demographics + + + | Address | [address] | | | [place] [address] | + + + | Home Phone | | + + + | Preferred Language | Unknown | + + + | Marital Status | Single | + + + | Restoration Affiliation | NRP | + + + | Race | White | + + + | Ethnic Group | Not or | + + + Author + + + | Author | [facility] | + + + | Organization | [facility] | + + + | Address | Unknown | + + + | Phone | Unavailable | + + + Support + + +---------+ + | Name | Relationship | Address | Phone | + + +---------+ + | Laura Allred | ECON | Unknown | | + + +---------+ + Care Team Providers + +------+ + | Care Coagulating Bath Operator Name | Role | Phone | + +------+ + | Lauryn Stuart | PCP | | + +------+ + Encounter Details +--------+ + + + + | Date | Type | Department | Care Team | Description | +--------+ + + + + | 02/07/ | Telephone | Cardiothoracic | Alejandro Waters NP | | | 2019 | | Surgery at [facility] [address] | [address] | | | | | [address] | [place], [place] | | | | | Physician's | [address] | | | | | [place], [facility] floor | [phone] | | | | | [place], [place] | | | | | | [address] | | | | | | [phone] | | | +--------+ + + + [...] | | | | | [address] [place], | | | | | | [place] [address] | | | | | | [phone] | | | | | | | | +--------+---------+ + + + | 04/30/ | Office | Otolaryngology | Augustine Nolan | | | 2019 | Visit | | MD Debbie [address] | | | | | | [address] | | | | | | [place] | | | | | | [address] | | | | | | [phone] | | | | | | | | +--------+---------+ + + + documented as of this encounter Visit Diagnoses Not on filedocumented in this encounter
--- OUTSIDE RECORDS SUMMARY | ~2020-03-30 | XMS | Encounter Summary ---
Demographics + + + | Address | [address] | | | [place] [address] | + + + | Home Phone | | + + + | Preferred Language | Unknown | + + + | Marital Status | Single | + + + | Congregational Affiliation | Unknown | + + + | Race | Unknown | + + + | Ethnic Group | Unknown | + + + Author + + + | Author | [facility] | | | and Jakobana | + + + | Organization | [facility] | [...] Team Providers + +------+ + | Care Reagent Tender Helper Name | Role | Phone | [...] Pharmacist / | Diagnoses | [facility] | [place], | | | | Oncology | Malignant | Medical | Renee Olvera, | | | | | neoplasm of | Oncology | PharmD [address] | | | | | upper lobe | Clinic [address] | | | | | of left lung | [address] | [place], | | | | | (HCC) | [place], | [place] [address] | | | | | Procedures | [place] | Phone: | | | | | [address] | [address] | [phone] | | | | | | Phone: | Fax: | | | | | | [phone] | [phone] | | | | | | Fax: | | | | | | | [phone] | | +--------+--------+ + + + + Encounter Details +--------+ + + + + | Date | Type | Department | Care Team | Description | +--------+ + + + + | 02/27/ | Hospital | [facility] | Adolfo, | Malignant neoplasm | | 2019 | Encounter | [facility] | Boubacar Daniels MD [address] | of upper lobe of | | | | ONCOLOGY CLINIC [address] | left lung (HCC) | | | | [address] [place] | [address] [place], [place] | (Primary Dx); Acute | | | | [place] [address] | [address] | post-operative pain; | | | | [phone] | | Acute respiratory | | | | | | distress syndrome | | | | | | (ARDS) (HCC); | | | | | | Aspiration | | | | | | pneumonitis (HCC); | | | | | | Cervicalgia; | | | | | | Leukocytosis, | | | | | | unspecified type; | | | | | | Postoperative anemia | | | | | | due to acute blood | | | | | | loss; Cellulitis of | | | | | | chest wall | +--------+ + + + + Social [...] + + + | Blood Pressure | 159/70 | 02/27/2019 12:39 PM | | | | | PDT | | + + + + + | Pulse | 65 | 02/27/2019 12:39 PM | | | | | PDT | | + + + + + | Temperature | 36.6 C (97.9 F) | 02/27/2019 12:39 PM | | | | | PDT | | + + + + + | Respiratory Rate | 16 | 02/27/2019 12:39 PM | | | | | PDT | | + + + + + | Oxygen Saturation | 99% | 02/27/2019 12:39 PM | | | | | PDT | | + + + + + | Inhaled Oxygen | - | - | | | Concentration | | | | + + + + + | Weight | 54.3 kg (119 lb 11.4 | 02/27/2019 12:39 PM | | | | oz) | PDT | | + + + + + | Height | - | - | | + + + + + | Body Mass Index | 19.94 | 01/30/2019 2:26 PM | | | [...] + + + +---------+ + + | mupirocin | apply to affected | 22 g | 0 | 02/28/20 | | | (BACTROBAN) 2% | area 3 times per day | | | 19 | 9 | | ointmentIndications: | for 3-5 days, | | | | | | Cellulitis of chest | reevaluate if no | | | | | | wall | response | | | | | + + [...] encounter Progress Notes Boubacar Mata MD - 02/27/2019 12:40 PM PDTFormatting of this note might be differe nt from the original. Hematology/Oncology Progress Note [place], [place] Pt. Name/Age/: Sussy Allred 69 y.o. 1950 Med. Record Number: [id number] Date of admission: 02/27/2019 The patient's primary care provider is Lauryn Stuart PA-C. Identifying Statement: Sussy Allred is a 69 y.o. 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 The patient chart and medications were reviewed in detail and the patient was seen and exam ined. History of Present Illnesses, their Current Assessments and Plans: Problem List Acute post-operative pain Overview Last Assessment & Plan: Epidural not placed pre-op because of staged approach to procedure. Pt received heparin dur ing procedure because of PA involvement. APS placed epidural 4 hrs after heparin. - TEA per APS w bupivicaine/HM (changed from fentanyl) - tylenol PRN - Lidocaine patches Acute respiratory distress syndrome (ARDS) Aspiration pneumonitis Overview Last Assessment & Plan: Increasing oxygen requirements overnight from 12/05 to 12/06 with worsening ground glass opac ities in right lung with concern for aspiration in setting of dysphagia. - Strict NPO, consider re consulting [employer] SERVICE TECHNICIAN today pending course and ENT recs - monitor for fevers and worsening respiratory status - pulmonary toilet, IS - wean O2 as able Cervicalgia Leukocytosis Overview Last Assessment & Plan: Suspect [...] L, 4L and hilar lymph nodes ([place], [facility]). Patholog ical specimen # [id number] was notable for a poorly differentiated adenocarcinoma, 3.2 cm w ith lymphovascular invasion (pT2a), and 13/31 lymph nodes positive for regionally metastatic disease (pN2). Post-operative course complicated by vocal cord paralysis, necessitating tem porary placement of a G-tube. 8. Cycle #1 pemetrexed/carboplatin on February 05, 2019. Current Assessment & Plan Sussy Allred returned to clinic on 02/27/2019 with no one for follow-up of and treatme nt for Stage IIIA adenocarcinoma of the left lung. Interval history; Lenka has a procedure at [facility] to remedy a paralyzed vocal cord that occurr ed with her left upper lobe lobectomy. Interval history is also notable for the fact that Lenka starts external beam radiation ther apy today. Review of systems; positive for nausea and fatigue Physical exam; hoarseness has resolved Clinical Data; Grade 1 anemia, normal kidney function. Right upper lobe mass seen on treatment planning CT scan was not FDG-avid on her pre-operat david PET scan. Assessment; Stage IIIA adendocarcinoma of the left lung status post left upper lobe lobecto my. Plan; proceed with cycle #2 of pemetrexed/carboplatin chemotherapy which will be given conc urrently with external beam radiation therapy at the patient's request. Postoperative anemia due to acute blood loss Overview Last Assessment & Plan: - monitor chest tube output - CBC daily Review of Systems: Constitutional: Reports low energy levels. Reports poor appetite, recent weight loss. Taste changes. Denies fatigue. Denies high fevers, shaking chills, anorexia, nausea, vomiting, we ight loss, or night sweats. Appetite without changes. Ear, Nose, Mouth, Throat: Reports dysphagia since surgery. Denies odynophagia, or tinnitus . Cardiovascular: Reports WILLIS, SOB, and poor activity tolerance. Reports chest pain, attribut es to possibly being surgical pain. Denies palpitations or orthopnea. Respiratory: Reports ongoing dry cough, unchanged. Denies hemoptysis, or sputum production. Gastrointestinal: Denies abdominal pain, constipation, diarrhea, melena, or bright red bloo d per rectum. Genitourinary: Denies hematuria or dysuria. Musculoskeletal: Reports ongoing neck pain. Neurologic: Reports headaches, "the past week now." Reports visual changes since surgery, L eye blurring/"absent areas." Denies numbness/tingling of the extremities. Endocrine: Denies peripheral edema or heat/cold intolerance. New swelling in ankles and fee t. Hematologic: Denies spontaneous bruising or bleeding. Easier to bruise. Integumentary: Denies rash, wounds or other skin concerns. New red spots on arms and hands. Pain: Reports surgical site pain, rates at 02/26. Reports ongoing neck pain, taking oxycodon e QID w/ relief per pt Note: here for consultation w/ Dr Mata * States the lump on the left side of her neck is back. Pt is wanting to talk about a port placement. My chart: Declined Review of systems as above otherwise negative [...] sleeplessness 30 tablet 4 Misc Natural Products (MATILDAALAYAN GOJI PO) Take 2 oz by mouth Daily. non-formulary medication Take 3 oz by mouth Daily. Nopalea supplement ondansetron (ZOFRAN ODT) 8 mg disintegrating tablet One tablet twice a day for two days after chemotherapy to block nausea 40 tablet 1 triamterene-hydrochlorothiazide (MAXZIDE-25) 37.5-25 mg per [...] Last attempt to quit: 08/20/2011 Years since quittin.5 Smokeless tobacco: Never Used Substance and Sexual [...] was cancer Macular degen Mother Objectives: Temp: 36.6 C (97.9 F) BP: 159/70 Pulse: 65 Resp: 16 SpO2: 99 % on Min/Max Temp past 24 hours:No data recorded No intake or output data in the 24 hours ending 03/08/19 1111 Wt. Admission: Weight: 54.3 kg (119 lb 11.4 oz) Wt. Current: Weight: 54.3 kg (119 lb 11 .4 oz) Wt Readings from Last 3 Encounters: 03/06/19 54.1 kg (119 lb 4.3 oz) 03/06/19 53.9 kg (118 lb 13.3 oz) 02/27/19 54.3 kg (119 lb 11.4 oz) Physical Exam: General: The patient is [...] or groin. Neurological: Face symmetric, voice is much better following intervention. Station and gai t are without deficit. Muscular/Skeletal: No acute bony [...] Walters., Renaldo Parish., Nico Avery, Turner TBritni., Suzanne Moncada., Georgette, P .P.: Toxicity And Response Criteria [...] here or in the Assessment and Plan. Results for SUSSY ALLRED "LENKA" ( ) as of 03/08/2019 10:35 Ref. Range 02/27/2019 12:15 WBC Latest Ref Range: 4.0 - 11.0 K/uL 7.3 RBC COUNT Latest Ref Range: 3.70 - 5.20 M/uL 3.42 (L) Hemoglobin Latest Ref Range: 11.5 - 16.0 g/dL 10.2 (L) Hematocrit Latest Ref Range: 34.0 - 47.0 % 31.0 (L) MCV Latest Ref Range: 83.0 - 101.0 fL 90.6 MCH Latest Ref Range: 28.0 - 35.0 pg 29.8 MCHC Latest Ref Range: 32.0 - 36.0 g/dL 32.9 RDW-CV Latest Ref Range: <15.0 % 18.0 (H) RDW-SD Latest Ref Range: 35.1 - 46.3 fL 59.3 (H) Platelet Count Latest Ref Range: 140 - 440 K/uL 388 MPV Latest Ref Range: 6.5 - 12.4 fL 8.2 % nRBC Latest Ref Range: 0 - 2 per 100 WBCs 0 Absolute nRBC Latest Ref Range: 0.00 - 0.01 K/uL 0.00 Absolute Neutrophils Latest Ref Range: 1.80 - 8.50 K/uL 4.70 Absolute Lymphocytes Latest Ref Range: 0.60 - 3.20 K/uL 1.25 Absolute Monocytes Latest Ref Range: 0.00 - 1.00 K/uL 1.31 (H) Absolute Eosinophils Latest Ref Range: 0.00 - 0.40 K/uL 0.03 Absolute Basophils Latest Ref Range: 0.00 - 0.10 K/uL 0.00 Absolute Immature Granulocytes Latest Ref Range: 0.00 - 0.03 K/uL 0.03 % Neutrophils Latest Ref Range: 45.0 - 82.0 % 64.2 % Lymphocytes Latest Ref Range: 20.0 - 45.0 % 17.1 (L) % Monocytes Latest Ref Range: 4.0 - 12.0 % 17.9 (H) % Eosinophils Latest Ref Range: 0.0 - 5.0 % 0.4 % Basophils Latest Ref Range: 0.0 - 1.0 % 0.0 % Immature Granulocytes Latest Ref Range: 0.0 - 0.4 % 0.4 Na Latest Ref Range: 136 - 145 mmol/L 137 K Latest Ref Range: 3.4 - 5.1 mmol/L 3.6 Chloride Latest Ref Range: 98 - 107 mmol/L 103 Carbon dioxide Latest Ref Range: 20 - 31 mmol/L 24 Anion Gap Latest Ref Range: 3 - 16 mmol/L 10 Glucose Latest Ref Range: 60 - 106 mg/dL 94 BUN Latest Ref Range: 9 - 23 mg/dL 17 Creatinine Latest Ref Range: 0.55 - 1.02 mg/dL 0.78 BUN/Creatinine Ratio Unknown 21.8 Albumin Latest Ref Range: 3.2 - 4.8 g/dL 4.3 Albumin/Globulin Ratio Latest Ref Range: 0.8 - 1.9 1.7 Total Protein Latest Ref Range: 5.7 - 8.2 g/dL 6.8 EGFR IF NOT Latest Ref Range: >=60 mL/min/1.73m2 >60 Calcium Latest Ref Range: 8.7 - 10.4 mg/dL 9.7 ALK PHOS Latest Ref Range: 46 - 116 U/L 73 ALT (SGPT) (REF) Latest Ref Range: 10 - 49 U/L 14 AST (SGOT) (REF) Latest Ref Range: 0 - 34 U/L 18 Bilirubin Total (Calculated) Latest Ref Range: 0.3 - 1.2 mg/dL 0.5 Globulin Latest Ref Range: 2.1 - 3.8 g/dL 2.5 Pharmacovigilance: Palliative Care: Procedure: Boubacar Mata MD Portions of this chart may have been created with [employer] voice recognition software. Occasi onal wrong-word or sound-alike substitutions may have occurred due to the inherent tripathi itations of voice recognition software. Please read the chart carefully and recognize, using context, where these substitutions have occurred.- documented in this encounter Miscellaneous Notes Assessment & Plan Note - Boubacar Mata MD - 03/08/2019 10:46 AM PDTAssociated Prob kati(s): Lung cancer (HCC)Sussy Allred returned to clinic on 02/27/2019 with no one for fo llow-up of and treatment for Stage IIIA adenocarcinoma of the left lung. Interval history; Lenka has a procedure at [facility] to remedy a paralyzed vocal cord that occurr ed with her left upper lobe lobectomy. Interval history is also notable for the fact that Lenka starts external beam radiation ther apy today. Review of systems; positive for nausea and fatigue Physical exam; hoarseness has resolved Clinical Data; Grade 1 anemia, normal kidney function. Right upper lobe mass seen on treatment planning CT scan was not FDG-avid on her pre-operat david PET scan. Assessment; Stage IIIA adendocarcinoma of the left lung status post left upper lobe lobecto my. Plan; proceed with cycle #2 of pemetrexed/carboplatin chemotherapy which will be given conc urrently with external beam radiation therapy at the patient's request. Electronically dago d by Boubacar Mata MD at 03/08/2019 11:11 AM PDTdocumented in this encounter Plan of [...] | | | | | [place] [address] | | | | | | [phone] | | | | | | | | +--------+ + + + + documented as of this encounter Procedures + +--------+ + + + | Procedure Name | Priori | Date/Time | Associated Diagnosis | Comments | | | ty | | | | + +--------+ + + + | CBC WITH | STAT | 02/27/2019 | Malignant neoplasm | Results for this | | DIFFERENTIAL | | 12:15 PM | of upper lobe of | procedure are in the | | | | PDT | left lung (HCC) | results section. | + +--------+ + + + | COMPREHENSIVE | STAT | 02/27/2019 | Malignant neoplasm | Results for this | | METABOLIC PANEL | | 12:15 PM | of upper lobe of | procedure are in the | | | | PDT | left lung (HCC) | results section. | + +--------+ + + + documented in this encounter Results US Head Neck Soft Tissue (03/20/2019 3:00 PM PDT) + + | Specimen | + + | | + + + + + | Narrative | Performed At | + + + | ULTRASOUND SOFT TISSUE NECK 03/20/2019 2:45 PM CLINICAL HISTORY: | [facility] | | evaluate swelling in the left supraclavicular fossa, patient with | | | lung cancer COMPARISON: RADIATION THERAPY PLANNING CT FEBRUARY 13 AND | | | MORE REMOTE IMAGING FINDINGS: Sonographic interrogation of the | | | left supraclavicular region identifies well-defined tissue planes | | | demarcating subcutaneous fat from underlying musculature and patent | | | appearing vessels. No mass, fluid collection or enlarged lymph node | | | is identified. Interrogation of the right supraclavicular region | | | demonstrates a similar appearance. IMPRESSION - 1. NO VISIBLE | | | SUPRACLAVICULAR ABNORMALITY. Dictated and Signed by: Bhavik Zamora MD Electronically signed: 03/20/2019 5:11 PM | | + + + + + | Procedure Note | + + | Cristhian, Yan Results In - 03/20/2019 5:14 PM PDT ULTRASOUND SOFT TISSUE NECK 03/20/2019 | | 2:45 PMCLINICAL HISTORY: evaluate swelling in the left supraclavicular fossa, | | patientwith lung cancerCOMPARISON: RADIATION THERAPY PLANNING CT FEBRUARY 13 AND MORE REMOTE | | IMAGINGFINDINGS: Sonographic interrogation of the left supraclavicular regionidentifies | | well-defined tissue planes demarcating subcutaneous fat fromunderlying musculature and | | patent appearing vessels. No mass, fluid collectionor enlarged lymph node is | | identified. Interrogation of the rightsupraclavicular region demonstrates a similar | | appearance.IMPRESSION -1. NO VISIBLE SUPRACLAVICULAR ABNORMALITY.Dictated and Signed | | by: Lucio Her MD Electronically signed: 03/20/2019 5:11 PM | |underlying musculature and patent appearing vessels. No mass, fluid collection | |or enlarged lymph node is identified. Interrogation of the right | |supraclavicular region demonstrates a similar appearance. | | | |IMPRESSION - | |1. NO VISIBLE SUPRACLAVICULAR ABNORMALITY. | | | |Dictated and Signed by: Lucio Her MD | | Electronically signed: 03/20/2019 5:11 PM | + + + +---------+ + + | Performing | Address | City/State/Zipcode | Phone Number | | Organization | | | | + +---------+ + + | [facility] | | | | + +---------+ + + CBC with Differential (02/27/2019 12:15 PM PDT) + + + + + + | Component | Value | Ref Range | Performed | Pathologist | | | | | At | Signature | + + + + + + | White Blood | 7.3 | 4.0 - 11.0 K/uL | [facility] | | | Cells | | | [facility] | [facility] | [facility] | | | | | [facility] - | | | | | | LAB[facility]ATORY | | + + + + + + | Red Blood | 3.42 (L) | 3.70 - 5.20 | [facility] | | | Cells | | M/uL | [facility] | | [facility] | | [facility] | | | | | | [facility] - | | | | | | [facility]ORATORY | | + + + + + + | Hemoglobin | 10.2 (L) | 11.5 - 16.0 | [facility] | | | | | g/dL | [facility] | | | | | | [facility] | | | | | | [facility] - | | | | | | [facility]ATORY | | + + + + + + | Hematocrit | 31.0 (L) | 34.0 - 47.0 % | [facility] | | | | | | [facility] | | | | | | [facility] | | | | | | [facility] - | | | | | | [facility]ATORY | | + + + + + + | MCV | 90.6 | 83.0 - 101.0 fL | [facility] | | | | | | [facility] | | | [facility] | | [facility] | | | | | | [facility] - | | | | | | [facility]ATORY | | + + + + + + | MCH | 29.8 | 28.0 - 35.0 pg | [facility] | | | | | | [facility] | | | | | | [facility] | | | | | | [facility] - | | | | | | [facility]ATORY | | + + + + + + | MCHC | 32.9 | 32.0 - 36.0 | [facility] | | | | | g/dL | [facility] | | | | | [facility] | | | | | | [facility] - | | | | | | [facility]ATORY | | + + + + + + | RDW-CV | 18.0 (H) | <15.0 % | [facility] | | | | | | [facility] | | [facility] | [facility] | | | | | | [facility] - | | | | | | [facility]ATORY | | + + + + + + | RDW-SD | 59.3 (H) | 35.1 - 46.3 fL | [facility] | | | | | | [facility] | | [facility] | [facility] | | | | | | [facility] - | | | | | | [facility]ATORY | | + + + + + + | Platelet | 388 | 140 - 440 K/uL | [facility] | | | Count | | | [facility] | | | [facility] | [facility] | | | | | | [facility] - | | | | | | LAB[facility]ATORY | | + + + + + + | MPV | 8.2 | 6.5 - 12.4 fL | [facility] | | | | | | [facility] | | | | | | [facility] | | | | | | [facility] - | | | | | | LAB[facility]ATORY | | + + + + + + | % | 64.2 | 45.0 - 82.0 % | [facility] | | | Neutrophils | | | [facility] | | | | | | [facility] | | | | | | [facility] - | | | | | | LAB[facility]ATORY | | + + + + + + | % | 17.1 (L) | 20.0 - 45.0 % | [facility] | | | Lymphocytes | | | [facility] | | | | | | [facility] | | | | | | [facility] - | | | | | | LAB[facility]ATORY | | + + + + + + | % Monocytes | 17.9 (H) | 4.0 - 12.0 % | [facility] | | | | | | [facility] | | | | | | [facility] | | | | | | [facility] - | | | | | | [facility]ATORY | | + + + + + + | % | 0.4 | 0.0 - 5.0 % | [facility] | | | Eosinophils | | | [facility] | | | | | | [facility] | | | | | | [facility] - | | | | | | LABORATORY | | + + + + + + | % Basophils | 0.0 | 0.0 - 1.0 % | [facility] | | | | | | [facility] | | | | | | [facility] | | | | | | [facility] - | | | | | | LAB[facility]ATORY | | + + + + + + | % Immature | 0.4 | 0.0 - 0.4 % | [facility] | | | Granulocyte | | | [facility] | | | s | | | [facility] | | | | | | [facility] - | | | | | | LABORATORY | | + + + + + + | Absolute | 4.70 | 1.80 - 8.50 | [facility] | | | Neutrophils | | K/uL | [facility] | | | | | | [facility] | | | | | | [facility] - | | | | | | [facility]ATORY | | + + + + + + | Absolute | 1.25 | 0.60 - 3.20 | [facility] | | | Lymphocytes | | K/uL | [facility] | | | | | | [facility] | | | | | | [facility] - | | | | | | LAB[facility]ATORY | | + + + + + + | Absolute | 1.31 (H) | 0.00 - 1.00 | [facility] | | | Monocytes | | K/uL | [facility] | | | | | | [facility] | | | | | | [facility] - | | | | | | [facility]ATORY | | + + + + + + | Absolute | 0.03 | 0.00 - 0.40 | [facility] | | | Eosinophils | | K/uL | [facility] | | | | | | [facility] | | | | | | [facility] - | | | | | | [facility]ATORY | | + + + + + + | Absolute | 0.00 | 0.00 - 0.10 | [facility] | [...] | 0.00 | 0.00 - 0.01 | [facility] | | | nRBC | | K/uL | [facility] | [...] ST. | [address] | [place] | [phone] | | [facility] | | [address] | | | - LABORATORY | | | | + + + + + Comprehensive Metabolic Panel (02/27/2019 12:15 PM PDT) + + + + + + | Component | Value | Ref Range | Performed | Pathologist | | | | | At | Signature | + + + + + + | Na | 137 | 136 - 145 | [facility] | | | | | mmol/L | [facility] | | | | | | [facility] | | | | | | [facility] - | | | | | | LAB[facility]ATORY | | + + + + + + | K | 3.6 | 3.4 - 5.1 | [facility] | [...] + + + + | CO2 | 24 | 20 - 31 mmol/L | [facility] | | | | | | [facility] | | | | | [facility] | | | | | | [facility] - | | | | | | LAB[facility]ATORY | | + + + + + + | Anion Gap | 10 | 3 - 16 mmol/L | [facility] | | | | | | [facility] | | | | | | [facility] | | | | | | [facility] - | | | | | | LAB[facility]ATORY | | + + + + + + | Glucose | 94 | 60 - 106 mg/dL | [facility] | | | | | | [facility] | | | | | | [facility] | | | | | | [facility] - | | | | | | LAB[facility]ATORY | | + + + + + + | BUN | 17 | 9 - 23 mg/dL | [facility] | | | | | | [facility] | | | | | | [facility] | | | | | | [facility] - | | | | | | LAB[facility]ATORY | | + + + + + + | Creatinine | 0.78 | 0.55 - 1.02 | [facility] | | | | | mg/dL | [facility] | | | | | | [facility] | | | | | | C[facility] - | | | | | | LABORATORY | | + + + + + + | eGFR, | >60Comment: GLOMERULAR | >=60 | [facility] | | | non- | FILTRATION | mL/min/1.73m2 | [facility] | | | [place] | RATE,ESTIMATED | | MEDICAL | | | | mL/min/1.53d0Kvcc than | | CENTER - | | [...] + + + + | Calcium | 9.7 | 8.7 - 10.4 | [facility] | | | | | mg/dL | [facility] | | | | [...] + + + + | Bilirubin | 0.5 | 0.3 - 1.2 mg/dL | [facility] | | | Total | | | [facility] | | | | | | [facility] | | | | | | [facility] - | | | | | | LABORATORY | | + + + + + + | Total | 6.8 | 5.7 - 8.2 g/dL | [facility] | | | Protein | | | [facility] | | | | | | [facility] | | | | | | [facility] - | | | | | | LABORATORY | | + + + + + + | AST | 18 | 0 - 34 U/L | [facility] | | | | | | [facility] | | | | | | [facility] | | | | | | [facility] - | | | | | | LABORATORY | | + + + + + + | ALT | 14 | 10 - 49 U/L | [facility] | | | | | | [facility] | | | | | | [facility] | | | | | | [facility] - | | | | | | LAB[facility]ATORY | | + + + + + + | Alkaline | 73 | 46 - 116 U/L | [facility] | | | Phosphatase | | | [facility] | | | | | | [facility] | | | | | | [facility] - | | | | | | LABORATORY | | + + + + + + | Globulin | 2.5 | 2.1 - 3.8 g/dL | [facility] | | | | | | [facility] | | | | | | [facility] | | | | | | [facility] - | | | | | | LAB[facility]ATORY | | + + + + + + | Albumin/Sophia | 1.7 | 0.8 - 1.9 | [facility] | | | bulin Ratio | | | [facility] | | | | | | [facility] | | | | | | CENTER - | | | | | | LABORATORY | | + + + + + + | BUN/Creatin | 21.8 | | [facility] | | | ine [...] [address] | [place] | [phone] | | [facility] | | [address] | | | - LABORATORY | | | | + + + + + documented in this encounter Visit Diagnoses + + | Diagnosis | + + | Malignant neoplasm of upper lobe of left lung (HCC) - Primary | + + | Acute post-operative pain | + + | Acute respiratory distress syndrome (ARDS) (HCC) Other pulmonary insufficiency, not | | elsewhere classified, following trauma and surgery | + + | Aspiration pneumonitis (HCC) Pneumonitis due to inhalation of food or vomitus | + + | Cervicalgia | + + | Leukocytosis, unspecified type | + + | Postoperative anemia due to acute blood loss Acute posthemorrhagic anemia | + + | Cellulitis of chest wall Cellulitis and abscess of trunk | + + documented in this encounter
--- OUTSIDE RECORDS SUMMARY | ~2020-03-30 | XMS | Encounter Summary ---
Demographics + + + | Address | [address] | | | [place] [address] | + + + | Home Phone | | + + + | Preferred Language | Unknown | + + + | Marital Status | Single | + + + | Pentecostal Affiliation | NRP | + + + | Race | White | + + + | Ethnic Group | Not or | + + + Author + + + | Author | [facility] | + + + | Organization | [facility] | + + + | Address | Unknown | + + + | Phone | Unavailable | + + + Support + + +---------+ + | Name | Relationship | Address | Phone | + + +---------+ + | Laura Allred | ECON | Unknown | | + + +---------+ + Care Team Providers + +------+ + | Care Financial Services Technician Name | Role | Phone | [...] | | | | | Physician's | [place], [place] | | | | | [address], 2nd floor | [address] | | | | | [place], [place] | [phone] | | | | | [address] | | | | | | [phone] | | | +--------+ + + + [...] | Office | Speech Therapy | Barbra aRmirez SLP | | | 2019 | Visit | | [address] | | | | | | [place], | | | | | | [place] [address] | | | | | | [phone] | | | | | | | | +--------+---------+ + + + | 04/30/ | Office | Otolaryngology | Augustine Nolan | | | 2020 | Visit | | MD Debbie [address] | | | | | | [address] | | | | | | [place] | | | | | | [address] | | | | | | [phone] | | | | | | | | +--------+---------+ + + + documented as of this encounter Visit Diagnoses Not on filedocumented in this encounter
--- OUTSIDE RECORDS SUMMARY | ~2020-03-30 | XMS | Encounter Summary ---
Demographics + + + | Address | [address] | | | [place] [address] | + + + | Home Phone | | + + + | Preferred Language | Unknown | + + + | Marital Status | Single | + + + | Mandaeism Affiliation | Unknown | + + + | Race | Unknown | + + + | Ethnic Group | Unknown | + + + Author + + + | Author | [facility] | | | and Jakobana | + + + | Organization | [facility] | | | [...] Team Providers + +------+ + | Care Environmental Field Professional Name | Role | Phone | [...] neoplasm of | Boubacar Daniels, | [address] [place] | | | | | unspecified | MD [address] | [place], | | | | | part of | [facility] | [place] [address] | | | | | unspecified | [address] | Phone: | | | | | bronchus or | [place], | [phone] | | | | | lung (HCC) | [place] [address] | Fax: | | | | | Procedures | Phone: | [phone] | | | | | [place] VITAMIN | [phone] | | | | | | B12 | Fax: | | | | | | INJECTION, | [phone] | | | | | | 1000 [...] + + | 02/27/ | Hospital | [facility] | Adolfo, | 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 | | | | INFUSION [address] [place] | left lung (HCC) | | | | [place], | [address] [place], [place] | (Primary Dx) | | | | [place] [address] | [address] | | | | | [phone] | | | +--------+ + + + [...] encounter Progress Notes Bailee Walker RN - 02/27/2019 3:54 PM PDTPatient finished with treatment today, mavis es any questions or concerns. AVS provided with follow up appointments. Discharged to radiat ion therapy in stable condition. Electronically signed by Bailee Walker RN at 3:54 PM PDTdocumented in this encounter Miscellaneous Notes Treatment Plan - Jair Isbell RN - 02/27/2019 1:31 PM PDTViewed chart for weight, vital signs and lab results. Also viewed chart for completion of medication and allergy re view prior to treatment. documented in this encounter Plan of Treatment [...] [address] | | | | | | [place] [address] | | | | | | [phone] | | | | | | | [...] | aprepitant (CINVANTI) injection | Given | 02/28/20 | 130 mg | | | | 130 mg 130 mg, IV Push, ONCE, | | 19 1:57 | | | | | [facility] 02/27/19 at 1400, For 1 dose, | | PM PDT | | | | | Administer 30 minutes prior to | | | | | | | chemotherapy. Administer slowly | | | | | | | over 2 minutes, | | | | | | + +--------+ +--------+------+------+ +---+---+ | | | +---+---+ + +---------+ + +--------+---+ | CARBOplatin (PARAPLATIN) 418.5 | New Bag | 02/28/20 | 418.5 mg | 541.9 | | | mg in sodium chloride 0.9% 500 mL | | 19 2:49 | | mL/hr | | | infusion 418.5 mg (Target AUC = | | PM PDT | | | | | 5), Intravenous, Administer over | | | | | | | 60 Minutes, ONCE, [facility] 02/27/19 at | | | | | | | 1415, For 1 dose, Chemotherapy: | | | | | | | Use appropriate handling | | | | | | | precautions., | | | | | | + +---------+ + +--------+---+ +---+---+ | | | +---+---+ + +-------+ +------+---+---+ | dexamethasone (DECADRON) tablet | Given | 02/28/20 | 4 mg | | | | 4 mg 4 mg, Oral, ONCE, [facility]iffer | | 19 1:53 | | | | | 02/27/19 at 1400, For 1 dose, | | PM PDT | | | | | Administer 30 minutes prior to | | | | | | | chemotherapy., | | | | | | + +-------+ +------+---+---+ +---+---+ | | | +---+---+ + +-------+ +--------+---+---+ | LORazepam (ATIVAN) injection | Given | 02/28/20 | 0.5 mg | | | | 0.5-1 mg 0.5-1 mg, Intravenous, | | 19 1:51 | | | | | EVERY 6 HOURS PRN, Anxiety, | | PM PDT | | | | | nausea, Starting Jenniffer 02/27/19 at | | | | | | | 1339 | | | | | | + +-------+ +--------+---+---+ +---+---+ | | | +---+---+ + +-------+ +---------+---+---+ | palonosetron (ALOXI) injection | Given | 02/28/20 | 0.25 mg | | | | 0.25 mg 0.25 mg, Intravenous, | | 19 1:53 | | | | | ONCE, [facility] 02/27/19 at 1400, For 1 | | PM PDT | [...] 800 mg in | New Bag | 02/28/20 | 800 mg | 600 | | | sodium chloride 0.9% 100 mL | | 19 2:34 | | mL/hr | | | infusion [...] | | | | | | | 02/27/19 at 1400, For 1 dose, | | | | | | | Chemotherapy: Use appropriate | | | | | | | handling precautions., | | | | | | + +---------+ +--------+-------+---+ +---+---+ | | | +---+---+ documented in this encounter"
--- OUTSIDE RECORDS SUMMARY | ~2020-03-30 | XMS | Encounter Summary ---
Demographics + + + | Address | [address] | | | [place] [address] | + + + | Home Phone | | + + + | Preferred Language | Unknown | + + + | Marital Status | Single | + + + | Confucianist Affiliation | NRP | + + + [...] Team Providers + +------+ + | Care Study Abroad Advisor Name | Role | Phone | + [...] Pre-operative | | 2019 | cheduled | Medicine Clinic at | | evaluation | | | | [facility] | | | | | | [address] | | | | | | [place] [facility] | | | | | | and Healing, | | | | | | [address] | | | | | | [place], [place] | | | | | | [address] | | | | | | [phone] | | | +--------+ + + + + Anesthesia Record + + + + + | Procedure Name | Responsible | Anesthesia Start | Anesthesia Stop Time | | | Anesthesiologist | Time | | + + + + + | FLEXIBLE | Isiah Abbott MD | 12/04/18 0728 | 12/04/18 1556 | | BRONCHOSCOPY, | | | | | ENDOBRONCHIAL | | | | | ULTRASOUND GUIDED | | | | | LYMPH NODE BIOPSIES, | | | | | MEDIASTINOSCOPY; | | | | | (N/A Chest) | | | | + + [...] | 7 | | | | | 1 | | | | | 1 | [...] 0 | Timeout | | | | 8 | | [...] | | 1 | Quick Note | Sean starks | | | 2 | | | | | 5 | | | | | 8 | | | +----+---+ + + | | 1 | Quick Note | L anthony PA unclamped- tolerated well-hemodynamic stable | | [...] Standard; Left; Pleural; 28 Fr.; | Anjali Fuller, FARIDA | María Pierre RN | | | 12/13/18; 1430; Other (Comment) | | | | | (By ) | | | +--------+ + + + documented in [...] | | | | | [place], | | | | | | [place] [address] | | | | | | [phone] | | | | | | | | +--------+---------+ + + + | 04/30/ | Office | Otolaryngology | Augustine Nolan | | | 2020 | Visit | | MD Debbie [address] [facility] | | | | | | [address] | | | | | | [place] | | | | | | [address] | | | | | | [phone] | | | | | | | | +--------+---------+ + + + documented as of this encounter Visit Diagnoses Not on filedocumented in this encounter
--- OUTSIDE RECORDS SUMMARY | ~2020-03-30 | XMS | Encounter Summary ---
Demographics + + + | Address | [address] | | | [place] [address] | + + + | Home Phone | | + + + | Preferred Language | Unknown | + + + | Marital Status | Single | + + + | Congregation Affiliation | Unknown | + + + | Race | Unknown | + + + | Ethnic Group | Unknown | + + + Author + + + | Author | [facility] | | | and Jakobana | + + + | Organization | [facility] | | | and [...] Team Providers + +------+ + | Care Position Classifier Name | Role | Phone | + +------+ + PCP | Unavailable | + +------+ + Encounter Details +--------+ + + + + | Date | Type | Department | Care Team | Description | +--------+ + + + + | 08/10/ | Hospital | [facility] | Richmond Marie MD | | | 2015 | Encounter | H[facility]PITAL XRAY [address] | [address] [place] | | | | | [address] | [address] [place], [place] | | | | | [place] | [address] | | | | | [address] | [phone] | | | | | [phone] | | | +--------+ + + + [...] | | | | | [place] [address] | | | | | | [phone] | | | | | | | | +--------+ + + + + documented as of this encounter Procedures + +--------+ + + + | Procedure Name | Priori | Date/Time | Associated Diagnosis | Comments | | | ty | | | | + +--------+ + + + | MRI CERVICAL SPINE | Routin | 08/10/2015 | | Results for this | | WO CONTRAST | e | 10:38 AM | | procedure are in the | | | | PST | | results section. | + +--------+ + + + documented in this encounter Results MRI Cervical Spine wo Contrast (08/10/2015 10:38 AM PST) + + | Specimen | + + | | + + + + + | Narrative | Performed At | + + + | ORIGINAL MRI CERVICAL SPINE WITHOUT CONTRAST: | | | INDICATION: Cervical radiculitis. COMPARISON: Cervical spine | | | x-ray 03/12/14. TECHNIQUE: Axial and sagittal multisequence | | | noncontrast images of the cervical spine are obtained. REPORT: | | | The visualized bone marrow signal demonstrates endplate degenerative | | | marrow changes at 3-4 through 5-6 levels. The visualized cord and | | | posterior fossa contents appear within normal signal. Normal flow | | | voids are present at the vertebral arteries. The visualized | | | parotid and submandibular glands appear within normal limits. A | | | small volume of fluid intensity is noted at the left mastoid process | | | with increased signal on T2 sequence. C2-3: No canal or | | | foraminal narrowing. C3-4: Mild posterior bulge is present with | | | mild flattening of the anterior thecal sac. Bmslfreu-ka-rheiblvmu | | | canal width is 9.5 mm. No foraminal narrowing is seen. C4-5: | | | Mild posterior bulge is present with flattening of the anterior | | | thecal sac and cord contact with mild cord deformity. | | | Znhhslma-sn-uxzfvzuen canal width is approximately 8.5 mm. No | | | distinct foraminal narrowing is seen. C5-6: Mild posterior bulge | | | is present with mild flattening of the anterior thecal sac. | | | Murbqinm-pt-ujkdcthze canal width is approximately 9 mm. No | | | distinct foraminal narrowing is seen. C6-7: No canal or | | | foraminal narrowing. C7-T1: No canal or foraminal narrowing. | | | IMPRESSION: Canal narrowing C3-4, 4-5, 5-6. Please see above | | | description for details. Read | | | By: DALLAS WEBB MD Released By: DALLAS WEBB MD Date: | | | 08/11/2015 16:29 | | + + + + + | Procedure Note | + + | Cristhian, Rad Results In - 06/27/2017 9:13 PM PST ORIGINAL MRI CERVICAL SPINE | | WITHOUT CONTRAST: INDICATION:Cervical radiculitis. COMPARISON:Cervical spine x-ray | | 03/12/14. TECHNIQUE:Axial and sagittal multisequence noncontrast images of the cervical | | spine are obtained. REPORT:The visualized bone marrow signal demonstrates endplate | | degenerative marrow changes at 3-4 through 5-6 levels. The visualized cord and | | posterior fossa contents appear within normal signal. Normal flow voids are present at | | the vertebral arteries. The visualized parotid and submandibular glands appear within | | normal limits. A small volume of fluid intensity is noted at the left mastoid process | | with increased signal on T2 sequence. C2-3: No canal or foraminal narrowing. C3-4: | | Mild posterior bulge is present with mild flattening of the anterior thecal sac. | | Rwktkuzu-jp-pmbghtebp canal width is 9.5 mm. No foraminal narrowing is seen. C4-5: | | Mild posterior bulge is present with flattening of the anterior thecal sac and cord | | contact with mild cord deformity. Fvghnzas-qk-egvppkftf canal width is approximately | | 8.5 mm. No distinct foraminal narrowing is seen. C5-6: Mild posterior bulge is present | | with mild flattening of the anterior thecal sac. Zbfltnqs-fu-entpxuvtv canal width is | | approximately 9 mm. No distinct foraminal narrowing is seen. C6-7: No canal or | | foraminal narrowing. C7-T1: No canal or foraminal narrowing. IMPRESSION:Canal narrowing | | C3-4, 4-5, 5-6. Please see above description for details. Job#: [id number] | | Read By: DALLAS WEBB MD Released By: DALLAS WEBB MDDate: 08/11/2015 16:29 | | | |C2-3: No canal or foraminal narrowing. | | | |C3-4: Mild posterior bulge is present with mild flattening of the anterior thecal sac. An raipkx-eq-vmegwglfw canal width is 9.5 mm. No foraminal narrowing is seen. | | | |C4-5: Mild posterior bulge is present with flattening of the anterior thecal sac and cord contact with mild cord deformity. Rgpnzfdn-sz-rnbhzenac canal width is approximately 8.5 mm . No distinct foraminal narrowing is seen. | | | |C5-6: Mild posterior bulge is present with mild flattening of the anterior thecal sac. An nwabui-na-jgdkzncwr canal width is approximately 9 mm. No distinct foraminal narrowing is s een. | | | |C6-7: No canal or foraminal narrowing. | | | |C7-T1: No canal or foraminal narrowing. | | | |IMPRESSION: | |Canal narrowing C3-4, 4-5, 5-6. Please see above description for details. | | | | | | | | | |Read By: DALLAS WEBB MD | | | |Released By: DALLAS WEBB MD | |Date: 08/11/2015 16:29 | | | | | + + documented in this encounter Visit Diagnoses Not on filedocumented in this encounter"
--- OUTSIDE RECORDS SUMMARY | ~2020-03-30 | XMS | Encounter Summary ---
Demographics + + + | Address | [address] | | | [place] [address] | + + + | Home Phone | | + + + | Preferred Language | Unknown | + + + | Marital Status | Single | + + + | Protestant Affiliation | Unknown | + + + | Race | Unknown | + + + | Ethnic Group | Unknown | + + + Author + + + | Author | [facility] | | | and Jakobana | + + + | Organization | [facility] | | | and [...] Team Providers + +------+ + | Care Litigation Specialist Name | Role | Phone | [...] neoplasm of | Boubacar Daniels, | [place] | | | | | unspecified | MD [address] | [place], | | | | | part of | [facility] [place] | [place] [address] | | | | | unspecified | [address] | Phone: | | | | | bronchus or | [place], | [phone] | | | | | lung (HCC) | [place] [address] | Fax: | | | | | Procedures | Phone: | [phone] | | | | | [place] VITAMIN | [phone] | | | | | | B12 | Fax: | | | | | | INJECTION, | [phone] | | | | | | [address] | | | | | | | ONDANSETRON | | | | | | | ORAL ND | | | | | | | ORAL | | | | | | | DEXAMETHASON | | | | | | | E, .25 MG | | | | | | | ND INJ., | | | | | | | APREPITANT, | | | | | | | 1 MG ND | | | | | | | PEMETREXED | | | | | | | INJECTION, | | | | | | | 10 MG ND | | | | | | | CARBOPLATIN | | | | | | | INJECTION, | | | | | | | 50 MG ND | | | | | | | ADRENALIN | | | | | | | EPINEPHRINE | | | | | | | INJECT, .1 | | | | | | | MG ND | | | | | | | DIPHENHYDRAM | | | | | | | INE HCL | | | | | | | INJECTIO, 50 | | | | | | | MG ND | | | | | | | METHYLPREDNI | | | | | | | SOLONE | | | | | | | INJECTION, | | | | | | | 125 MG ND | | | | | | | ALBUTEROL | | | | | | | COMP CON, 1 | | | | | | | MG ND | | | | | | | ALBUTEROL | | | | | | | NON-COMP | | | | | | | CON, 1 MG | | | | | | | ND | | | | | | | INJECTION, | | | | | | | FAMOTIDINE, | | | | | | | 20 MG ND | | | | | | | NORMAL | | | | | | | SALINE | | | | | | | SOLUTION | | | | | | | INFUS, 500 | | | | | | | ML ND | | | | | | | NORMAL | | | | | | | SALINE | | | | | | | SOLUTION | | | | | | | INFUS, 250 | | | | | | | ML ND | | | | | | | STERILE | | | | | | | WATER/SALINE | | | | | | | , 10 ML ND | | | | | | | CHEMOTHER, | | | | | | | IV PUSH,EA | | | | | | | ADD DRUG ND | | | | | | | CHEMOTHER, | | | | | | | IV INFUSION, | | | | | | | 1 HR ND | | | | | | | CHEMOTHER, | | | | | | | IV INFUSION, | | | | | | | EA HR ND | | | | | | | CHEMOTHER,NO | | | | | | | N-HORMONE | | | | | | | ANTI-NEOPL, | | | | | | | SUB-Q/IM ND | | | | | | | CHEMOTHER | | | | | | | HORMON | | | | | | | ANTINEOPL | | | | | | | SUB-Q/IM ND | | | | | | | | | | | | | | PALONOSETRON | | | | | | | HCL, 25 MCG | | | +--------+--------+ + + + + Encounter Details +--------+ + + + + | Date | Type | Department | Care Team | Description | +--------+ + + + + | 05/05/ | Hospital | [facility] | Adolfo, | Anemia due to | | 2019 | Encounter | MED CTR CHEMO | Boubacar Daniels MD [address] | chemotherapy | | | | INF[address] [facility] [place] | (Primary Dx); | | | | [place], | [address] [place], [place] | Malignant neoplasm | | | | [place] [address] | [id number] | of hilus of lung, | | | | [phone] | | unspecified | | | | [...] + + + | Blood Pressure | 134/63 | 05/05/2019 1:30 PM | | | | | PDT | | + + + + + | Pulse | 74 | 05/05/2019 1:30 PM | | | | | PDT | | + + + + + | Temperature | 36.5 C (97.7 F) | 05/05/2019 1:30 PM | | | | | PDT | | + + + + + | Respiratory Rate | 16 | 05/05/2019 1:30 PM | | | | | PDT [...] | | | | | [address] [facility] | | | | | | [place] [address] | | | | | | [phone] | | | | | | | | +--------+ + + + + documented as of this encounter Procedures + +--------+ + + + | Procedure Name | Priori | Date/Time | Associated Diagnosis | Comments | | | ty | | | | + +--------+ + + + | TRANSFUSE RED BLOOD | Routin | 05/05/2019 | Anemia due to | | | CELLS | e | 1:32 PM | chemotherapy | | | | | PDT | Malignant neoplasm | | | | | | of hilus of lung, | | | | | | unspecified | | | | | | laterality (HCC) | | + +--------+ + + + | PRODUCT: RBC | Routin | 05/05/2019 | Anemia due to | Results for this | | | e | 12:06 PM | chemotherapy | procedure are in the | | | | PDT | Malignant neoplasm | results section. | | | | | of hilus of lung, | | | | | | unspecified | | | | | | laterality (HCC) | | + +--------+ + + + | TYPE AND SCREEN | STAT | 05/05/2019 | Anemia due to | Results for this | | | | 10:42 AM | chemotherapy | procedure are in the | | | | PDT | Malignant neoplasm | results section. | | | | | of hilus of lung, | | | | | | unspecified | | | | | | laterality (HCC) | | + +--------+ + + + documented in this encounter Results Product: RBC (05/05/2019 12:06 PM PDT) + + + + + + | Component | Value | Ref Range | Performed | Pathologist | | | | | At | Signature | + + + + + + | Product | [id number] | | [facility] | | | Code | | [facility] | | | | | [facility] | | | | | | [facility] - | | | | | | BLOOD BANK | | + + + + + + | UNIT # | [id number] | | [facility] | | | | | [facility] | | | | | | [facility] | | | | | | [facility] - | | | | | | BLOOD BANK | | + + + + + + | UNIT ABO | O | | [facility] | | | | | | [facility] | | | | | | [facility] | | | | | | [facility] - | | | | | | BLOOD BANK | | + + + + + + | UNIT RH | POS | | [facility] | | | | | | [facility] | | | | | | [facility] | | | | | | [facility] - | | | | | | BLOOD BANK | | + + + + + + | CROSSMATCH | Compatible | | [facility] | | | INTERP | | | [facility] | | | | | | [facility] | | | | | | [facility] - | | | | | | BLOOD BANK | | + + + + + + | Unit Status | Issued | | [facility] | | | | | | [facility] | | | | | | [facility] | | | | | | [facility] - | | | | | | BLOOD BANK | | + + + + + + | Blood | OPOS | | [facility] | | | Product | | | [facility] | | | ABORh | | | MEDICAL | | | | | | CENTER - | | | | | | BLOOD BANK | | + + + + + + | Blood | [id number] | | [facility] | | | Product | | | [facility] | | | Expiration | | | MEDICAL | | | Date and | | | CENTER - | | | Time | | | BLOOD BANK | | + + + + + + | Product | [id number] | | [facility] | | | Blood Type | | | [facility] | | | Barcode | | | MEDICAL | | | | | | CENTER - | | | | | | BLOOD BANK | | + + + + + + + + | Specimen | + + | | + + + + + + + | Performing | Address | City/State/Zipcode | Phone Number | | Organization | | | | + + + + + | [facility] | [address] | [place] | | | [facility] | | [address] | | | - BLOOD BANK | | | | + + + + + Type and Screen (05/05/2019 10:42 AM PDT) + + + + + + | Component | Value | Ref Range | Performed | Pathologist | | | | | At | Signature | + + + + + + | ABO | O | | [facility] | | | | | | [facility] | | | | | | [facility] | | | | | | CENTER - | | | | | | BLOOD BANK | | + + + + + + | Rh Type | Positive | | [facility] | | | | | | [facility] | | | | | | [facility]ICAL | | | | | | CENTER - | | | | | | BLOOD BANK | | + + + + + + | Antibody | Negative | | [facility] | | | Screen | | | [facility] | | | | | | [facility] | | | | | | CENTER - | | | | | | BLOOD BANK | | + + + + + + + + | Specimen | + + | Blood | + + + + + + + | Performing | Address | City/State/Zipcode | Phone Number | | Organization | | | | + + + + + | [facility] | [address] | [place], [place] | | | 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 | + + | Malignant neoplasm of hilus of lung, unspecified laterality (HCC) | + + documented in this encounter Administered Medications + +--------+ +--------+------+------+ | Medication Order | MAR | Action | Dose | Rate | Site | | | Action | Date | | | | + +--------+ +--------+------+------+ | acetaminophen (TYLENOL) tablet | Given | 05/05/20 | 650 mg | | | | 650 mg 650 mg, Oral, ONCE, Sun | | 19 11:42 | | | | | 05/05/19 at 1100, For 1 dose, | | AM PDT | | | | | Administer 30 minutes prior to | | | | | | | transfusion, | | | | | | + +--------+ +--------+------+------+ +---+---+ | | | +---+---+ + +-------+ +-------+---+---+ | diphenhydrAMINE (BENADRYL) | Given | 05/05/20 | 25 mg | | | | tablet 25 mg 25 mg, Oral, ONCE, | | 19 11:42 | | | | | 05/05/19 at 1100, For 1 dose, | | AM PDT | | | | | Administer 30 minutes prior to | | | | | | | transfusion., | | | | | | + +-------+ +-------+---+---+ +---+---+ | | | +---+---+ documented in this encounter"
--- OUTSIDE RECORDS SUMMARY | ~2020-03-30 | XMS | Encounter Summary ---
Demographics + + + | Address | [address] | | | [place] [address] | + + + | Home Phone [...] + + | Author | [facility] | + + + | Organization | [facility] | + + + | Address | Unknown | + + + | Phone | Unavailable | + + + Support + + +---------+ + | Name | Relationship | Address | Phone | + + +---------+ + | Laura Allred | ECON | Unknown | | + + +---------+ + Care Team Providers + +------+ + | Care Assessment Specialist Name | Role | Phone | + +------+ + | Lauryn Stuart | PCP | | + +------+ + Reason for Visit + + + | Reason | Comments | + + + | NSCLC - Non-small | | | cell lung cancer | | + + + | Lung Cancer | | + + + Consultation (Routine) +--------+---------+ + + + + | Status | Reason | Specialty | Diagnoses / | Referred By | Referred To | | | | | Procedures | Contact | Contact | +--------+---------+ + + + + | Closed | Other | Hematology & | Diagnoses | Werle, | Hem Faculty | | | | Oncology | Malignant | CARLO Allen | [facility] [address] | | | | | neoplasm of | [address] | | | | | lung, | Ave | [facility] for | | | | | unspecified | [place], [place] | Health and | | | | | laterality, | [address] | Healing, | | | | | unspecified | Phone: | [address] | | | | | part of lung | [phone] | [place], [place] | | | | | (HCC) | Fax: | [phone] | | | | | Procedures | [phone] | Phone: | | | | | CONSULT TO | | [phone] | | | | | HEMATOLOGY / | | Fax: | | | | | ONCOLOGY | | [phone] | | | | | PRACTICE MO | | | | | | | NEW PATIENT | | | | | | | LEVEL V MO | | | | | | | EST PATIENT | | | | | | | LEVEL V | | | +--------+---------+ + + + + Encounter Details +--------+---------+ + + + | Date | Type | Department | Care Team | Description | +--------+---------+ + + + | 01/09/ | Office | [facility] | Gi Barber, | Malignant neoplasm | | 2019 | Visit | [facility] | MD [address] | of upper lobe of | | | | [facility] [address] | [place], [place] | left lung (HCC) | | | | [address] [facility] | [address] | (Primary Dx) | | | | Health and Healing, | [phone] | | | | | [address] | | | | | | [place], [place] | | | | | | [address] | | | | | | [phone] | | | +--------+---------+ + + + [...] + + + | Blood Pressure | 133/70 | 01/09/2019 2:23 PM | | | | | PDT | | + + + + + | Pulse | 71 | 01/09/2019 2:23 PM | | | | | PDT | | + + + + + | Temperature | 37 C (98.6 F) | 01/09/2019 2:23 PM | | | | | PDT | | + + + + + | Respiratory Rate | 12 | 01/09/2019 2:23 PM | | | | | PDT | | + + + + + | Oxygen Saturation | 100% | 01/09/2019 2:23 PM | | | | | PDT | | + + + + + | Inhaled Oxygen | - | - | | | Concentration | | | | + + + + + | Weight | 54 kg (119 lb) | 01/09/2019 2:23 PM | | | | | PDT | | + + + + + | Height | - | - | | + + + + + | Body Mass Index | 20.43 | 12/04/2018 6:09 AM | | | [...] documented as of this encounter Progress Notes Gi Barber MD - 01/15/2019 3:16 PM PDTConsulting Physician: iG Barber MD Consultation Date: 01/09/2019 Referring Physician: History Of Present Illness: Ms. 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 On December 04, 2018, she underwent an EBUS bronchoscopy with cervi vaibhav mediastinoscopy and left VATS to muscle-sparing thoracotomy to remove the left upper lob e through a sleeve resection of both airways and pulmonary artery with reconstruction of bot h the airway and the vessel with pericardial patch. She had a mediastinal lymph node dissec tion revealing multi-station theresa involvement. Final path was T2a N2. The tumor measured 2.2 x 2.1 cm with predominantly solid invasive adenocarcinoma, acinar subtype. There is felix dence of visceral pleural involvement. Thirteen out of 39 lymph nodes were involved with tu mor with positive nodes at 4 L, 7, 10 L and N1 for a total of 13 out of 31 lymph nodes posit david with tumor. She recovered well from surgery, and she is here in the clinic today to dis cuss postoperative adjuvant treatment. 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 She has recovered well from surgery and plans to recei ve adjuvant treatment near her home in [place]. Social History: She is and has 2 grownup children. Works at [employer] in [place]. She had a 7 pack-year smoking history, started smoking in 2004 and quit in 2011. Past Medical History: Significant for history of gastroesophageal reflux disease, hypothyr oidism, irritable bowel syndrome, Raynaud phenomenon. Past Surgical History: Includes oophorectomy, appendectomy, and left upper lobectomy with mediastinal lymph node dissection. Family History: Significant for father who from pancreatic cancer. Physical Examination: GENERAL: Reveals a pleasant patient in no apparent distress. VITAL SIGNS: Stable. ECOG performance status 0. HEENT: Negative scleral icterus. Cranial ner ves II through XII intact. Extraocular movements intact. Oral cavity shows no thrush or ul cers. Negative cervical adenopathy. CHEST: Clear to auscultation bilaterally. CARDIAC: Regular rate and rhythm. No murmur. LOWER EXTREMITIES: No edema bilaterally. NEURO: Toya ssly nonfocal. Imaging Studies: I personally reviewed, include CT scan of the chest as well as a whole-geovanny dy PET-CT scan documenting left upper lobe spiculated mass that is FDG avid. There is also multi-station involvement of mediastinal lymph nodes. There is no evidence of extrathoracic disease. Final path as documented above shows invasive adenocarcinoma with multi-station m ediastinal lymph node involvement (pT2a N2 M0). Impression And Plan: A 68-year-old patient with a stage IIIA adenocarcinoma of the left up per lobe, status post surgical resection with R0 resection of multi-station mediastinal lymp h node disease. The patient will certainly require adjuvant postoperative chemotherapy with carboplatin, pemetrexed. This could be easily arranged for in [place] near her home in [place], and we will send a referral to a local medical oncology practice to arrange for 4 cycles of adjuvant postoperative chemotherapy with carboplatin and pemetrexed. She will a lso benefit from adjuvant radiation to the mediastinum due to the presence of multi-station lymph node involvement and this too could be arranged for locally in [place]. I discuss ed the details of the treatment with the patient, the rationale for adjuvant chemotherapy an d radiation therapy. We will send a referral to a local oncology practice, and she will con tact us if she has additional questions. I spent 35 minutes with the patient. All her questions were answered. More than 50% of my time was spent in oonf-ql-kowh counseling with the patient as well as coordination of care. In addition, I also spent an hour and 25 minutes reviewing her past medical records. Gi Barber MD MAYURI/MODL /[id number] documented in this en counter Plan of Treatment +--------+---------+ + + + | Date | Type | Specialty | Care Team | Description | +--------+---------+ + + + | 04/30/ | Office | Speech Therapy | Barbra Ramirez SLP | | | 2019 | Visit | | [address] | | | | | | [place], | | | | | | [place] [address] | | | | | | [phone] | | | | | | | | +--------+---------+ + + + | 04/30/ | Office | Otolaryngology | Augustine Nolan | | | 2019 | Visit | | MD Debbie [address] | | | | | | [address] | | | | | | [place], [place] | | | | | | [address] | | | | | | [phone] | | | | | | | | +--------+---------+ + + + documented as of this encounter Visit Diagnoses + + | Diagnosis | + + | Malignant neoplasm of upper lobe of left lung (HCC) - Primary | + + documented in this encounter
--- OUTSIDE RECORDS SUMMARY | ~2020-03-30 | XMS | Encounter Summary ---
Demographics + + + | Address | [address] | | | [place] [address] | + + + | Home Phone | | + + + | Preferred Language | Unknown | + + + | Marital Status | Single | + + + | Islam Affiliation | Unknown | + + + | Race | Unknown | + + + | Ethnic Group | Unknown | + + + Author + + + | Author | [facility] | | | and Jakobana | + + + | Organization | [facility] | | | and [...] Team Providers + +------+ + | Care Airframe And Powerplant Technician Name | Role | Phone | + +------+ + | Lauryn Stuart PA-C | PCP | | + +------+ + Reason for Visit +--------+--------+ + | Reason | Onset | Comments | | | Date | | +--------+--------+ + | Other | 03/31/ | | | | 2019 | | +--------+--------+ + Encounter Details +--------+ + + + + | Date | Type | Department | Care Team | Description | +--------+ + + + + | 03/31/ | Telephone | [facility] | Rajiv Fritz DO | Other | | 2019 | | [facility] | [address] | | | | | ONCOLOGY CLINIC [address] | [place], [place] | | | | | [address] | [address] | | | | | [place] [address] | | | | | | [phone] | | | +--------+ + + + [...] Encounter - Allie Gallagher RN - 03/31/2019 3:37 PM PDTPatient has cancelled he r Carafate through her mail order pharmacy and request new written RX. Electronically dago d by Allie Gallagher RN at 03/31/2019 3:38 PM PDTdocumented in this encounter Plan of [...] | | | | | [place] [address] | | | | | | [phone] | | | | | | | | +--------+ + + + + documented as of this encounter Visit Diagnoses Not on filedocumented in this encounter"
--- OUTSIDE RECORDS SUMMARY | ~2020-03-30 | XMS | Encounter Summary ---
Demographics + + + | Address | [address] | | | [place] [address] | + + + | Home Phone | | + + + | Preferred Language | Unknown | + + + | Marital Status | Single | + + + | Pentecostalism Affiliation | Unknown | + + + | Race | Unknown | + + + | Ethnic Group | Unknown | + + + Author + + + | Author | [facility] | | | and [place]obana | + + + | Organization | [facility] | | | and Jakobana [...] Team Providers + +------+ + | Care Visual Merchandising Associate Name | Role | Phone | + +------+ + PCP | Unavailable | + +------+ + Encounter Details +--------+ + + + + | Date | Type | Department | Care Team | Description | +--------+ + + + + | 08/29/ | Hospital | [facility] | Barbra Lind, | | | 2014 | Encounter | HOSPITAL EMERGENCY | COOLER ROOM WORKER [address] | | | | | CENTER [address] | [place] | | | | | [place] | [id number] | | | | | [address] | | | | | | [phone] | | | +--------+ + + + [...] | | | | | [place] [address] | | | | | | [phone] | | | | | | | | +--------+ + + + + documented as of this encounter Visit Diagnoses Not on filedocumented in this encounter"
--- OUTSIDE RECORDS SUMMARY | ~2020-03-30 | XMS | Encounter Summary ---
Demographics + + + | Address | [address] | | | [place] [address] | + + + | Home Phone | | + + + | Preferred Language | Unknown | + + + | Marital Status | Single | + + + | Synagogue Affiliation | Unknown | + + + | Race | Unknown | + + + | Ethnic Group | Unknown | + + + Author + + + | Author | [facility] | | | and [place]obana | + + + | Organization | [facility] | | | and [place]obana [...] Team Providers + +------+ + | Care Hospital Clinic Assistant Name | Role | Phone | + +------+ + | Lauryn Stuart PA-C | PCP | | + +------+ + Encounter Details +--------+ + + + + | Date | Type | Department | Care Team | Description | +--------+ + + + + | 02/27/ | Documentati | [facility] | Alma Wallace | | | 2019 | on | MED CNT ONCOLOGY | A, OT | | | | | THERAPY [address] | | | | | | [place], | | | | | | [place] [address] | | | | | | [phone] | | | +--------+ + + + [...] documented as of this encounter Progress Notes Alma Wallace, OT - 02/27/2019 2:38 PM [facility] [address] [facility] [address] Oncology Rehab Screening Date: 02/27/2019 Patient Information Patient Name: Sussy Allred Date of : 1950 Age: 69 y.o. Patient was seen for oncology rehab screening due to new patient consult. Patient currently being treated for lung cancer and treatment regimen includes concurrent chemo/radiation. In troduced self to patient and advised her of role and availability of oncology rehab navigato r. Patient currently reports primary deficit is SOB and chest wall pain since surgical rese ction of her lung cancer. She reports pain with intake of deep breath and pain in lateral L trunk, primarily at previous site of drain tubes. She reports this area has started increa sing in redness and discomfort and that medical oncologist just started her on antibiotic cr eam. Patient also has large, horizontal scar across front of neck. She reports this is whe re they took out numerous lymph nodes. Patient does report her neck can feel tight at times at the scar site. Scar is well-healed; not raised. Instructed patient in gentle neck ROM exercises and scar massage. Also discussed lymph massage for underside of chin and neck. Fredi sung and abhi good understanding. She has made excellent progress with speech s kills since vocal cord paralysis has resolved; no significant difficulties in swallowing cur rently. Encouraged patient to contact oncology rehab if she should have any further questio ns or concerns. Patient to contact therapist or doctor if change in status. Electronically signed by: Alma Wallace OT, 02/27/2019 14:38 Patient Name: Sussy Allred/: 1950/ documented in this encounter Plan of Treatment +--------+ + + + + | Date | Type | Specialty | Care Team | Description | +--------+ + + + + | 04/20/ | Appointment | Radiation Oncology | Treva Ortega | | | 2019 | | | DEISY Hernandez [address] | | | | | | [address] | | | | | | [place] [address] | | | | | | [phone] | | | | | | | | +--------+ + + + + documented as of this encounter Visit Diagnoses Not on filedocumented in this encounter"
--- OUTSIDE RECORDS SUMMARY | ~2020-03-30 | XMS | Encounter Summary ---
Demographics + + + | Address | [address] | | | [place] [address] | + + + | Home Phone | | + + + | Preferred Language | Unknown | + + + | Marital Status | Single | + + + | Sikh Affiliation | Unknown | + + + | Race | Unknown | + + + | Ethnic Group | Unknown | + + + Author + + + | Author | [facility] | | | and [place] | + + + | Organization | [facility] | | | and [place]obana [...] Team Providers + +------+ + | Care City Carrier Name | Role | Phone | + +------+ + | Lauryn Stuart PA-C | PCP | | + +------+ + Reason for Visit +--------+--------+ + | Reason | Onset | Comments | | | Date | | +--------+--------+ + | Other | 10/10/ | | | | 2020 | | +--------+--------+ + Encounter Details +--------+ + + + + | Date | Type | Department | Care Team | Description | +--------+ + + + + | 10/10/ | Telephone | [facility] | Adolfo, | Other | | 2020 | | [facility] | Boubacar Daniels MD [address] | | | | | ONCOLOGY CLINIC [address] | [address] [facility] | | | | | [address] | [address] [place] | | | | | [place] [address] | [address] | | | | | [phone] | | | +--------+ + + + [...] this encounter Miscellaneous Notes Telephone Encounter - Boubacar Mata MD - 10/10/2019 11:39 AM PSTPrescriptions for narcotics approved. Electronically signed by: Boubacar Mata MD 10/10/2019 11:39 AM elephone Yaneth Cross - 10/10/2019 9:13 AM PSTKatharina needs refills on her [place] and [place] nal patch called into [facility] in [place]. She would like a call back from the nurse to co nfirm that this has been done. Thank you.Electronically signed by Yaneth Spear at 10/10 9:17 AM PSTdocumented in this encounter Plan of Treatment +--------+ [...] | | | | | [place] [address] | | | | | | [phone] | | | | | | | | +--------+ + + + + documented as of this encounter Visit Diagnoses + + | Diagnosis | + + | Malignant neoplasm of hilus of lung, unspecified laterality (HCC) | + + documented in this encounter"
--- OUTSIDE RECORDS SUMMARY | ~2020-03-30 | XMS | Encounter Summary ---
Demographics + + + | Address | [address] | | | [place] [address] | + + + | Home Phone | | + + + | Preferred Language | Unknown | + + + | Marital Status | Single | + + + | Yarsanism Affiliation | Unknown | + + + | Race | Unknown | + + + | Ethnic Group | Unknown | + + + Author + + + | Author | [facility] | | | and Jakobana | + + + | Organization | [facility] | | | and [...] Team Providers + +------+ + | Care Biopharmaceutical Rep Name | Role | Phone | + +------+ + | Lauryn Stuart PA-C | PCP | | + +------+ + Reason for Visit + + + | Reason | Comments | + + + | Follow-up | | + + + Evaluate & Treat (Routine) + +--------+ + + + + | Status | Reason | Specialty | Diagnoses / | Referred By | Referred To | | | | | Procedures | Contact | Contact | + +--------+ + + + + | Authorized | | Radiation | Diagnoses | [facility] | [place], | | | | Oncology | G89.3 | Radiation | Fiona Parsons MD | | | | | (ICD-10-CM) | Oncology | [address] | | | | | - Neoplasm | Clinic [address] | | | | | related pain | [address] | [place], | | | | | (acute) | [place], | [place] [address] | | | | | (chronic) | [place] | Phone: | | | | | C34.12 | [address] | [phone] | | | | | (ICD-10-CM) | Phone: | Fax: | | | | | - Malignant | [phone] | [phone] | | | | | neoplasm of | Fax: | | | | | | upper lobe, | [phone] | | | | | | left | | | | | | | bronchus or | | | | | | | lung (HCC) | | | | | | | Procedures | | | | | | | [address] | | | + +--------+ + + + + Encounter Details +--------+ + + + + | Date | Type | Department | Care Team | Description | +--------+ + + + + | 07/08/ | Hospital | [facility] | Fiona Anne | Malignant neoplasm | | 2019 | Encounter | [facility] | MD Issa [address] | of hilus of lung, | | | | ONCOLOGY CLINIC [address] [place], [place] | unspecified | | | | [address] [place] [place] | [address] | laterality (HCC) | | | | [place] [address] | | (Primary Dx) | | | | [phone] | | | +--------+ + + + [...] + | Blood Pressure | 134/63 | 07/08/2019 10:40 AM | | | | | PST | | + + + + + | Pulse | 88 | 07/08/2019 10:40 AM | | | | | PST | | + + + + + | Temperature | 37.1 C (98.8 F) | 07/08/2019 10:40 AM | | | | | PST | | + + + + + | Respiratory Rate | 14 | 07/08/2019 10:40 AM | | | | | PST | | + + + + + | Oxygen Saturation | 100% | 07/08/2019 10:40 AM | | | | | PST | | + + + + + | Inhaled Oxygen | - | - | | | Concentration | | | | + + + + + | Weight | 51.6 kg (113 lb 12.1 | 07/08/2019 10:40 AM | | | | oz) | PST | | + + + + + | Height | - | - | | + + + + + | Body Mass Index | 18.95 | 01/30/2019 2:26 PM | | | | | PDT | | + + + + + documented in this encounter Discharge Instructions Patient Instructions Rianna Genao RN - 07/08/2019 10:30 AM PSTFollow-up with Dr. Venkata balbuena in 1 month. Labs: none Imaging: PET scan due 07/10/19 Medication changes: Prednisone will be ordered to decrease inflammation to the lung, start with 60mg and taper down by 10mg per week (to take for a total of 6 weeks), continue to take Omeprazole with this new medication Referrals: none Follow-up with Dr. Mata as directed. Alternation of follow-up between providers an ticipated. Self-care recommendations: Increase rest, decrease amount of working hours; Dr. Dayana khan sign a letter for you to work for 3-4 days per week for the next month. Electronically sig alfredo by Rianna Genao RN at 07/08/2019 11:19 AM PST documented in this encounter Medications [...] + + + +---------+ + + | predniSONE | 6 tabs daily for 1 | 150 | 0 | 07/08/20 | | | (DELTASONE) 10 mg | week, then 5 daily | tablet | | 19 | 0 | | tablet | for 1 week, then 4 | | | | | | | daily for 1 wk, then | | | | | | | 3 daily for 1 wk, | | | | | | | then 1 daily for 1 | | | | | | | wk, then stop | | | | | + + [...] encounter Progress Notes Fiona Anne MD - 07/08/2019 10:30 AM PST Radiation Oncology Follow-up Chief Complaint/ICD10 ICD-10-CM ICD-9-CM 1. Malignant neoplasm of hilus of lung, unspecified laterality (HCC) C34.00 162.2 History of Present Illness: Lung cancer (HCC) 12/04/2018 Initial Diagnosis - Presented to her PCP Lauryn Stuart PA-C in early September with supraclavicular misha ng. - 10/09/18 Chest X-ray at [facility]: Abnormal - 2/22/19, CT Chest @ [facility]: Bilateral upper lobe spiculated masses. Left-sided mass abuts the major fissure and measures up to 2.4 cm with central necrosis. Right-sided measures up to 1.7 cm with a halo haziness, and tethers to the pleura. AP window adenopathy measuring u p to 2.1 cm, heterogeneous with mild enhancement. Suprahilar 1.5 cm necrotic lymph node. - 10/23/2018 PET/CT @ [facility]: Left upper lobe mass measures 2.2 cm with SUV max 5.96. Right up per lobe mass measures 1.5 cm with an SUV of 1.03, more consistent with scarring. Suspiciou s nodule at prevascular space measuring up to 1.1 cm with an SUV of 4.36, AP window mass doron sures up to 5 cm with max SUV 13.58. Left hilar region SUV 2.76. No evidence of distant me tastatic disease. - 11/26/18 MRI Brain @[facility]: No evidence of metastatic disease. 12/04/2018 Surgery Surgeon: Manoj Kumar MD @ [facility] - EBUS bronchoscopy with biopsy of level 7 and 4L, FNA negative on frozen. - Cervical mediastinoscopy with biopsy of level 7 and 4R. - Left VATS with left upper lobectomy with sleeve resection of the airway and pulmonary art chintan, pulmonary artery plasty with pericardial patch. Mediastinal lymph node dissection of l evels 5, 6, 7, 9L and 4L. Pathology: Invasive adenocarcinoma, grade 3, 3.2 cm, visceral pleura invasion, lymphovascu lar invasion present, margin negative (closest 2 mm at vascular margin). lymph nodes i nvolved including levels 3a, 7, 4L, 5, 6, 10 L and 11 L. 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 02/27/2019 - 04/04/2019 Radiation Therapy 50 Gy in 25 fractions to left lung Sussy Allred completed radiation 3 months ago, she returns for routine follow-up. Katharina continue so be fatigued since treatment and does not feel that she is bouncing back. Return ing to work has been difficult. She also reports low appetite, improving but not resolved e sophagitis and weight loss of a few lbs. After completion of radiation she underwent an MRI of the brain on 04/14/19, due to headache s. No malignancy identified. In the past few weeks she has developed worsening shortness of breath and cough. Non-produ ctive, no hemoptysis. She does not feel ill and denies fevers. 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 Dr. Mata managing with fentanyl, hydroc odone/APAP and gabapentin. Sniff test on 06/11/19 was negative for diaphragmatic paralysis. She continues to have a breathy voice, related to local cord paralysis. This has been wors ening slightly over the past many months. 07/03/19- CT chest: Groundglass consolidation at the left superior and mid hilar regions, c orresponding with radiation treatment. Worsening soft tissue prominence in the mediastinum also noted. Stable spiculated right apical scar. 07/10/19- SCHEDULED PET/CT Katharina has also continues to follow with Dr. Mata Review of systems: Constitutional: Reports fatigue but may be due to working. Reports appetite is low, weight decreased slightly from 52.5kg on 06/17/19 to 51.6kg today. Reports nausea and vomiting int ermittently and somewhat frequently. Reports night sweats continue every night, multiple james es. Denies fatigue. Denies high fevers, shaking chills, anorexia, nausea, vomiting, weight l oss, or night sweats. Appetite without changes. Ear, Nose, Mouth, Throat: Reports swallowing has improved, still not 100%, cannot tolerate rougher textures. Throat is beginning to feel sore again. Reports "constant" runny nose. Den ies odynophagia, dysphagia, or tinnitus. Cardiovascular: Reports SOB as often, even at rest on occasion. Denies shortness of breath, dyspnea on exertion, chest pain, palpitations or orthopnea. Respiratory: Reports dry cough. Denies cough, hemoptysis, or sputum production. Gastrointestinal: Reports constipation despite taking stool softener nightly. Denies abdomi nal pain, constipation, diarrhea, melena, or bright red blood per rectum. Genitourinary: Denies hematuria or dysuria. Musculoskeletal: Reports middle back pain originating from specific spot which has 10/10 lo vaibhav pain; occurring a few times a week for a few hours at a time. This has continued for the last few months, patient uses heat applications when it comes on. Denies joint pain or ten derness. Neurologic: Reports seeing housing court judge for vision changes. Numbness and tingling to hands and feet continues. Denies headache, visual changes, or numbness/tingling of the extremities . Endocrine: Denies peripheral edema or heat/cold intolerance. Hematologic: Reports bruising easily. Denies spontaneous bruising or bleeding. Integumentary: Reports tenderness to left chest/breast where radiation was. Redness to nose . Denies rash, wounds or other skin concerns. Pain: Pain (generalized) reported as a 5/10 today to the left chest. Note: Here for 3 month follow up with Dr. Anne and to review CT chest imaging. My chart: Declined Pain assessment: Location: left chest Pain Level: PAIN PROG PAIN LEVEL: 5 Pain Quality: Constant Current pain regimen: Fentanyl patch, Hydrocodone Current Outpatient Medications Medication Sig Dispense Refill acetaminophen (TYLENOL) 325 mg tablet Take 325-650 mg by mouth every 6 hours as needed. acetaminophen-codeine 120-12 mg/5 mL solution Take 5 mLs by mouth every 6 hours as need ed for Pain. 473 mL 0 acyclovir (ZOVIRAX) 400 MG tablet Take 400 mg by mouth Daily. ALPRAZolam (XANAX) 0.5 mg tablet Take 1 tablet by mouth nightly as needed (taking every night.). 90 tablet 2 Amino Acids (AMINO ACID PO) Take 1 Scoop by mouth Daily. buPROPion (WELLBUTRIN XL) 300 mg 24 hr tablet CARAFATE 1 GM/10ML suspension cilostazol (PLETAL) 50 mg tablet Take 50 mg by mouth Daily. citalopram (CELEXA) 10 mg tablet Take 10 mg by mouth Daily. cyanocobalamin (VITAMIN B-12) 1000 MCG tablet Take 500 mcg by mouth Daily. dexamethasone (DECADRON) 4 mg tablet Take one tablet twice a day on the day before chem otherapy and for two days after chemotherapy. (Patient not taking: Reported on 07/08/2019) 4 0 tablet 0 mjqiymbgecQWBVD-pwpsyjxsp-zxwrsvxw & magnesium hydroxide-simethicone (MAGIC MOUTHWASH) Take 5 mLs by mouth every 4 hours as needed for Pain. (RECIPE = 1:1:1 mixture of Maalox, dip henhydrAMINE, viscous lidocaine) 237 mL 2 estradiol (ESTRACE) 2 MG tablet Take 2 mg by mouth Daily. fentaNYL (DURAGESIC) 50 mcg/hr Place 1 patch onto the skin every 72 hours. 10 patch 0 gabapentin (NEURONTIN) 300 mg capsule Take one capsule by mouth at bedtime for one day, then one capsule twice daily for one day, then 1 capsule three times daily 90 capsule 0 HYDROcodone-acetaminophen (NORCO) 7.5-325 mg per tablet Take 1-2 tablets by mouth every 6 hours as needed. 60 tablet 0 lansoprazole (PREVACID) [address] [...] 6 hours as needed for Nausea . (Patient not taking: Reported on 07/08/2019) 30 tablet 1 sucralfate (CARAFATE) 1 g tablet Take 1 tablet by mouth 4 times daily. (Patient not danii ing: Reported on 07/08/2019) 120 tablet 1 triamterene-hydrochlorothiazide (MAXZIDE-25) 37.5-25 mg per tablet Take 0.5 tablets by mouth Daily. No current facility-administered medications for this encounter. Allergies Allergen Reactions Ketorolac Anaphylaxis Adhesive & Tape Dermatitis Latex Rash Intolerance No active intolerances/contraindications Vitals: 07/08/19 1040 BP: 134/63 Pulse: 88 Resp: 14 Temp: 37.1 C (98.8 F) PainSc: 5 Wt Readings from Last 3 Encounters: 07/08/19 51.6 kg (113 lb 12.1 oz) 06/17/19 52.5 kg (115 lb 11.9 oz) 05/20/19 53.1 kg (117 lb 1 oz) Physical Exam: General: Healthy appearing thin woman in no acute medical distress. KPS: 80-90 HEENT: Pupils equal, round and reactive to light. No conjunctival icterus or injection. EOM I. Oral, moist mucus membranes. Lymphatic: No cervical, supraclavicular or axillary lymphadenopathy. Cardiovascular: Regular rate and rhythm, no murmur. Pulmonary: Breath sounds heard throughout, scattered crakles, no increased work of breathin g at rest. Extremities: Upper and lower extremities warm and well perfused with no upper or lower extr emity edema. Neurologic: Alert, oriented and appropriated in conversation. CN II-IX grossly intact. Moves all 4 extremities normally with normal gait. Psychiatric: Appropriate. Labs: No recent results. Lab Results Component Value Date WBC 4.8 05/20/2019 HGB 10.2 (L) 05/20/2019 HCT 30.8 (L) 05/20/2019 MCV 103.4 (H) 05/20/2019 PLT 246 05/20/2019 Lab Results Component Value Date CREA 0.79 05/20/2019 BUN 18 05/20/2019 NA 135 (L) 05/20/2019 K 3.7 05/20/2019 CL 102 05/20/2019 CO2 26 05/20/2019 Lab Results Component Value Date ALT 10 05/20/2019 AST 23 05/20/2019 ALKPHOS 86 05/20/2019 BILITOT 0.4 05/20/2019 Imaging: See HPI Assessment: ICD-10-CM ICD-9-CM 1. Malignant neoplasm of hilus of lung, unspecified laterality (HCC) C34.00 162.2 Sussy Allred is early post radiation treatment clinically she is demonstrating symptoms concerning for radiation pneumonitis. Imaging also demonstrates inflammation surrounding t he treated area. Recommended a steroid taper and close interval follow-up. She is also malick eduled for a PET/CT which should be more illuminating as to the etiology of soft tissue pro minence within the mediastinum. Clinical history and exam does not demonstrate any overt ev idence of disease activity. Plan: Follow-up with Dr. Anne in 1 month. Labs: none Imaging: PET scan due 07/10/19 Medication changes: Prednisone will be ordered to decrease inflammation to the lung, start with 60mg and taper down by 10mg per week (to take for a total of 6 weeks), continue to take Omeprazole with this new medication Referrals: none Follow-up with Dr. Mata as directed. Alternation of follow-up between providers an ticipated. Self-care recommendations: Increase rest, decrease amount of working hours; Dr. Dayana khan sign a letter for you to work for 3-4 days per week for the next month. Thank you for allowing me to participate in the care of Sussy Allred. If you should hav e any questions regarding this evaluation, please do not hesitate to contact me. Fiona Anne M.D. Radiation Oncologist Department of Radiation Oncology [facility] Office: [phone] signed by Fiona Anne MD at 09/14/2019 6:24 [address]documented in this encounter Plan of Treatment +--------+ + + + + | Date | Type | Specialty | Care Team | Description | +--------+ + + + + | 04/20/ | Appointment | Radiation Oncology | Treva Ortega | | | 2019 | | | DEISY Hernandez [address] | | | | | | [facility] | | | | | | [place] [address] | | | | | | [phone] | | | | | | | | +--------+ + + + + documented as of this encounter Visit Diagnoses + + | Diagnosis | + + | Malignant neoplasm of hilus of lung, unspecified laterality (HCC) - Primary | + + documented in this encounter
--- OUTSIDE RECORDS SUMMARY | ~2020-03-30 | XMS | Encounter Summary ---
Demographics + + + | Address | [address] | | | [place] [address] | + + + | Home Phone [...] Team Providers + +------+ + | Care Mailer Apprentice Name | Role | Phone | + +------+ + | Lauryn Stuart | PCP | | + +------+ + Encounter Details +--------+------+ + + + | Date | Type | Department | Care Team | Description | +--------+------+ + + + | 11/26/ | Lab | Laboratory at [facility] | | Neoplasm | | 2019 | | [address] | | | | | | [facility] | | | | | | and Healing, | | | | | | [address] | | | | | | [place], [place] | | | | | | [address] | | | | | | [phone] | | | +--------+------+ + + + [...] | | | | | | [place] [address] | | | | | | [phone] | | | | | | | | +--------+---------+ + + + | 04/30/ | Office | Otolaryngology | Augustine Nolan | | | 2019 | Visit | | MD Debbie [address] | | | | | | [address] | | | | | | [place] | | | | | | [address] | | | | | | [phone] | | | | | | | [...] [facility] | [address] | [place] [address] | | | SERVICES, | [address] [...] [facility] | [address] | [place] [address] | | | SERVICES, | [address] [...] | + + + + + | [facility] | [address] | [place] [address] | | | SERVICES, | [address] [...] | + + + + + | [facility] | [address] | [place] [address] | | | [facility] | | | | | HEALTH + [...] | | | LABORATORY | | | [place] | | | SERVICES, | | | [...] Kidney Disease <15 mL/min/1.73 sq m | [facility] | | Kidney Failure Estimated GFR [...] | + + + + + | [facility] | [address] | [place] [address] | | | [facility] | | | | | HEALTH + [...] [facility] | [address] | [place] [address] | | | KOKI STUART | [address] | | | + + + + + documented in this encounter Visit Diagnoses + + | Diagnosis | + + | Neoplasm Neoplasm of unspecified nature, site unspecified | + + documented in this encounter
--- OUTSIDE RECORDS SUMMARY | ~2020-03-30 | XMS | Encounter Summary ---
Demographics + + + | Address | [address] | | | [place] [address] | + + + | Home Phone | | + + + | Preferred Language | Unknown | + + + | Marital Status | Single | + + + | Worship Affiliation | NRP | + + + | Race | White | + + + | Ethnic Group | Not or | + + + Author + + + | Author | [facility] | + + + | Organization | [facility] | + + + | Address | Unknown | + + + | Phone | Unavailable | + + + Support + + +---------+ + | Name | Relationship | Address | Phone | + + +---------+ + | Laura Allred | ECON | Unknown | | + + +---------+ + Care Team Providers + +------+ + | Care Industrial Cook Name | Role | Phone | + +------+ + | Lauryn Stuart | PCP | | + +------+ + Encounter Details +--------+ + + + + | Date | Type | Department | Care Team | Description | +--------+ + + + + | 12/04/ | Procedure | [address] | | | | 2019 | Pass | [address] | | | | | | [facility] | | | | | | [facility] Admitting | | | | | | Desk Located on the | | | | | | 9th floor | | | | | | [place], [place] | | | | | | [address] | | | +--------+ + + + [...] | | | | | | [place] [address] | | | | | | [phone] | | | | | | | | +--------+---------+ + + + | 04/30/ | Office | Otolaryngology | Augustine Nolan | | | 2019 | Visit | | MD Debbie [address] | | | | | | [address] | | | | | | [place] | | | | | | [address] | | | | | | [phone] | | | | | | | | +--------+---------+ + + + documented as of this encounter Visit Diagnoses Not on filedocumented in this encounter
--- OUTSIDE RECORDS SUMMARY | ~2020-03-30 | XMS | Encounter Summary ---
Demographics + + + | Address | [address] | | | [place] [address] | + + + | Home Phone | | + + + | Preferred Language | Unknown | + + + | Marital Status | Single | + + + | Bahai Affiliation | NRP | + + + | Race | White | + + + | Ethnic Group | Not or | + + + Author + + + | Author | [facility] | + + + | Organization | [facility] | + + + | Address | Unknown | + + + | Phone | Unavailable | + + + Support + + +---------+ + | Name | Relationship | Address | Phone | + + +---------+ + | Laura Allred | ECON | Unknown | | + + +---------+ + Care Team Providers + +------+ + | Care Filler Shredder Helper Name | Role | Phone | + +------+ + | Lauryn Stuart | PCP | | + +------+ + Encounter Details +--------+ + + + + | Date | Type | Department | Care Team | Description | +--------+ + + + + | 09/22/ | Abstract | Otolaryngology | Augustine Nolan | | | 2020 | | Laryngology Services | MD Debbie [address] | | | | | at [facility] [address] | | | | | [place] for | [place], [place] | | | | | Health and Healing, | [address] | | | | | [facility] [address] | [phone] | | | | | [place], [place] | | | | | | [address] | | | | | | [phone] | | | +--------+ + + + [...] | | 2019 | Visit | | [address] | | | | | | [place], | | | | | | [place] [address] | | | | | | [phone] | | | | | | | | +--------+---------+ + + + | 04/30/ | Office | Otolaryngology | Augustine Nolan | | | 2019 | Visit | | MD Debbie [address] | | | | | | [address] | | | | | | [place] | | | | | | [address] | | | | | | [phone] | | | | | | | | +--------+---------+ + + + documented as of this encounter Visit Diagnoses Not on filedocumented in this encounter
--- OUTSIDE RECORDS SUMMARY | ~2020-03-30 | XMS | Encounter Summary ---
Demographics + + + | Address | [address] | | | [place] [address] | + + + | Home Phone [...] Author | [facility] | | | and Jakobana | + + + | Organization | [facility] | [...] Team Providers + +------+ + | Care Steamship Agent Name | Role | Phone | + [...] neoplasm of | Boubacar Daniels, | [place] | | | | | unspecified | MD [address] | [place], | | | | | part of | [facility] | [place] [address] | | | | | unspecified | [address] | Phone: | | | | | bronchus or | [place], | [phone] | | | | | lung (HCC) | [place] [address] | Fax: | | | | | Procedures | Phone: | [phone] | | | | | [place] VITAMIN | [phone] | | | | | | B12 | Fax: | | | | | | INJECTION, | [phone] | | | | | | [address] [place] | | | | | | | ONDANSETRON | | | | | | | ORAL HI | | | | | | | ORAL | | | | | | | DEXAMETHASON | | | | | | | E, .25 MG | | | | | | | HI INJ., | | | | | | | APREPITANT, | | | | | | | 1 MG HI | | | | | | | PEMETREXED | | | | | | | INJECTION, | | | | | | | 10 MG HI | | | | | | | CARBOPLATIN | | | | | | | INJECTION, | | | | | | | 50 MG HI | | | | | | | ADRENALIN | | | | | | | EPINEPHRINE | | | | | | | INJECT, .1 | | | | | | | MG HI | | | | | | | DIPHENHYDRAM | | | | | | | INE HCL | | | | | | | INJECTIO, 50 | | | | | | | MG HI | | | | | | | METHYLPREDNI | | | | | | | SOLONE | | | | | | | INJECTION, | | | | | | | 125 MG HI | | | | | | | ALBUTEROL | | | | | | | COMP CON, 1 | | | | | | | MG HI | | | | | | | ALBUTEROL | | | | | | | NON-COMP | | | | | | | CON, 1 MG | | | | | | | HI | | | | | | | INJECTION, | | | | | | | FAMOTIDINE, | | | | | | | 20 MG HI | | | | | | | NORMAL | | | | | | | SALINE | | | | | | | SOLUTION | | | | | | | INFUS, 500 | | | | | | | ML HI | | | | | | | NORMAL | | | | | | | SALINE | | | | | | | SOLUTION | | | | | | | INFUS, 250 | | | | | | | ML HI | | | | | | | STERILE | | | | | | | WATER/SALINE | | | | | | | , 10 ML HI | | | | | | | CHEMOTHER, | | | | | | | IV PUSH,EA | | | | | | | ADD DRUG HI | | | | | | | CHEMOTHER, | | | | | | | IV INFUSION, | | | | | | | 1 HR HI | | | | | | | CHEMOTHER, | | | | | | | IV INFUSION, | | | | | | | EA HR HI | | | | | | | CHEMOTHER,NO | | | | | | | N-HORMONE | | | | | | | ANTI-NEOPL, | | | | | | | SUB-Q/IM HI | | | | | | | CHEMOTHER | | | | | | | HORMON | | | | | | | ANTINEOPL | | | | | | | SUB-Q/IM HI | | | | | | | | | | | | | | PALONOSETRON | | | | | | | HCL, 25 MCG | | | +--------+--------+ + + + + Encounter Details +--------+ + + + + | Date | Type | Department | Care Team | Description | +--------+ + + + + | 04/02/ | Hospital | [facility] | Adolfo, | 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 | | | | INFUSION [address] [place] | left lung (HCC) | | | | [place], | [address] [place], [place] | (Primary Dx) | | | | [place] [address] | [address] | | | | | [phone] | | | +--------+ + + + [...] + + + | Blood Pressure | 125/60 | 04/02/2019 11:23 AM | | | | | PDT | | + + + + + | Pulse | 80 | 04/02/2019 11:23 AM | | | | | PDT | | + + + + + | Temperature | 36.5 C (97.7 F) | 04/02/2019 11:23 AM | | | | | PDT [...] mcg by mouth | | 0 | 03/05/20 | | | (SYNTHROID) 50 mcg | [...] encounter Progress Notes Jair Isbell RN - 04/02/2019 1:20 PM PDTPatient discharged in satisfactory condit ion. PIV maintained for hydration tomorrow Discharged ambulatory. With family. To home. Verified [...] BONE | | | | | | [place] [address] | | | | | | [phone] | | | | | | | [...] heparin 100 units/mL flush | Given | 04/02/20 | 500 | | | | injection 500 Units 500 Units (5 | | 19 1:19 | Units | | | | mL), Intracatheter, PRN, Line | | PM PDT | | | | | Care, Starting 04/02/19 at | | | | | | | 1122 | | | | | | + +--------+ +-------+------+------+ +---+---+ | | | +---+---+ + +-------+ +--------+---+---+ | HYDROmorphone (DILAUDID) | Given | 04/02/20 | 0.8 mg | | | | injection 0.4-0.8 mg 0.4-0.8 mg, | | 19 1:18 | | | | | Intravenous, EVERY 1 HOUR PRN, | | PM PDT | | | | | Pain, Starting Sun04/02/19 at | | | | | | | 1122 | | | | | | + +-------+ +--------+---+---+ +-------+ +--------+---+---+ | Given | 04/02/20 | 0.8 mg | | | | | 19 11:34 | | | | | | AM PDT | | | | +-------+ +--------+---+---+ +---+---+ | | | +---+---+ + +---------+ +---+-------+---+ | sodium chloride 0.9% (NS) | New Bag | 04/02/20 | | 500 | | | infusion at 500 mL/hr, | | 19 11:34 | | mL/hr | | | Intravenous, CONTINUOUS, Starting | | AM PDT | | | | | Sun04/02/19 at 1145, 1000 cc ns | | | | | | | iv over 2 hours., | | | | | | + +---------+ +---+-------+---+ +---+---+ | | | +---+---+ documented in this encounter"
--- OUTSIDE RECORDS SUMMARY | ~2020-03-30 | XMS | Encounter Summary ---
Demographics + + + | Address | [address] | | | [place] [address] | + + + | Home Phone | | + + + | Preferred Language | Unknown | + + + | Marital Status | Single | + + + | Latter Day Affiliation | Unknown | + + + | Race | Unknown | + + + | Ethnic Group | Unknown | + + + Author + + + | Author | [facility] | | | and Jakobana | + + + | Organization | [facility] | | | and [...] Team Providers + +------+ + | Care Tobacco Sorter Name | Role | Phone | + +------+ + | Lauryn Stuart PA-C | PCP | | + +------+ + Reason for Visit + +--------+ + | Reason | Onset | Comments | | | Date | | + +--------+ + | Medication Refill | 08/14/ | | | | 2019 | | + +--------+ + Encounter Details +--------+--------+ + + + | Date | Type | Department | Care Team | Description | +--------+--------+ + + + | 08/14/ | Refill | [facility] | Adolfo, | Medication Refill | | 2019 | | [facility] | Boubacar Daniels MD [address] | | | | | ONCOLOGY CLINIC [address] | [address] [facility] | | | | | [address] [place] [place] | [address] [place], [place] | | | | | [place] [address] | [address] | | | | | [phone] | | | +--------+--------+ + + + [...] this encounter Miscellaneous Notes Telephone Encounter - Rianna Genao RN - 08/14/2019 11:48 AM PSTMedications refilled on 08/11/19. Left message on patient voicemail that she should have requested medications madison alatorrele to her at the pharmacy. If any more questions or concerns, to call us back. [employer] signed by Rianna Genao RN at 08/14/2019 11:49 AM PSTTelephone Encounter - Jesse Clarissa alison Parsons - 08/14/2019 9:15 AM PSTPt called for refill of HYDROcodone-acetaminophen (NORCO) 7 .5-325 mg per tablet fentaNYL (DURAGESIC) 50 mcg/hr Please send to [facility] in [place] She did not request a call unless there are any issues in prescribing the refills. Thank you documented in this encounter Plan [...] | | | | | [place] [address] | | | | | | [phone] | | | | | | | | +--------+ + + + + documented as of this encounter Visit Diagnoses + + | Diagnosis | + + | Malignant neoplasm of hilus of lung, unspecified laterality (HCC) | + + documented in this encounter"
--- OUTSIDE RECORDS SUMMARY | ~2020-03-30 | XMS | Encounter Summary ---
Demographics + + + | Address | [address] | | | [place] [address] | + + + | Home Phone | | + + + | Preferred Language | Unknown | + + + | Marital Status | Single | + + + | Scientology Affiliation | NRP | + + + | Race | White | + + + | Ethnic Group | Not or | + + + Author + + + | Author | [facility] | + + + | Organization | [facility] | + + + | Address | Unknown | + + + | Phone | Unavailable | + + + Support + + +---------+ + | Name | Relationship | Address | Phone | + + +---------+ + | Laura Allred | ECON | Unknown | | + + +---------+ + Care Team Providers + +------+ + | Care Connection Worker Name | Role | Phone | [...] | | | | WWO CONTRAST | [place], [place] | [facility] and | | | | | [place] MRI | [address] | Healing, | | | | | BRAIN COMBO | Phone: | Building [address], | | | | | | [phone] | 3rd Floor | | | | | | Fax: | [facility] [place] | | | | | | [phone] | [address] | | | | | | | Phone: | | | | | | | [phone] | | | | | | | Fax: | | | | | | | [phone] | +--------+--------+ + + + + Reason [...] | | Neoplasm | [place] | [facility] [address] | | | | | Procedures | [address] | | | | | MRI BRAIN | Ave | Center for | | | | | WWO CONTRAST | [place], [place] | [facility] and | | | | | [place] MRI | [address] | Healing, | | | | | BRAIN COMBO | Phone: | Building 1, | | | | | | [phone] | [facility] Floor | | | | | | Fax: | [place], [place] | | | | | | [phone] | [address] | | | | | | | Phone: | | | | | | | [phone] | | | | | | | Fax: | | | | | | | [phone] | +--------+--------+ + + + + Encounter [...] | | [facility] | [place], [place] | | | | | Health and Healing, | [address] | | | | | [address] | [phone] | | | | | Floor [place], [place] | | | | | | [address] | | | | | | [phone] | | | +--------+ + + + [...] | | | | | | [place] [address] | | | | | | [phone] | | | | | | | | +--------+---------+ + + + | 04/30/ | Office | Otolaryngology | Augustine Nolan | | | 2020 | Visit | | MD Debbie [address] [facility] | | | | | | [address] | | | | | | [place] | | | | | | [address] | | | | | | [phone] | | | | | | | [...]
--- OUTSIDE RECORDS SUMMARY | ~2020-03-30 | XMS | Encounter Summary ---
Demographics + + + | Address | [address] | | | [place] [address] | + + + | Home Phone [...] + + + | Author | [facility] | | | and Jakobana | + + + | Organization | [facility] | | [...] Team Providers + +------+ + | Care Grey Roll Worker Name | Role | Phone | [...] | MED CTR EXTERNAL | MD Marli [address] | | | | | IMAGING [address] | [address] | | | | | [address] [place] | [place] [address] | | | | | [place] [address] | | | | | | [phone] | | | +--------+ + + + [...] | | | | | | [place] [address] | | | | | | [phone] | | | | | | | [...]
--- OUTSIDE RECORDS SUMMARY | ~2020-03-30 | XMS | Encounter Summary ---
Demographics + + + | Address | [address] | | | [place] [address] | + + + | Home Phone | | + + + | Preferred Language | Unknown | + + + | Marital Status | Single | + + + | Worship Affiliation | Unknown | + + + | Race | Unknown | + + + | Ethnic Group | Unknown | + + + Author + + + | Author | [facility] | | | and Jakobana | + + + | Organization | [facility] | | | and Jakobana [...] Team Providers + +------+ + | Care Insole Stiffener Name | Role | Phone | + [...] | MED CTR EXTERNAL | MD Marli [address] | | | | | IMAGING [address] | [address] | | | | | [address] [place] | [place] [address] | | | | | [place] [address] | | | | | | [phone] | | | +--------+ + + + [...] | | | | | | [place] [address] | | | | | | [phone] | | | | | | | | +--------+ + + + + documented as of this encounter Procedures + +--------+ + + + | Procedure Name | Priori | Date/Time | Associated Diagnosis | Comments | | | ty | | | | + +--------+ + + + | XR CHEST AP PORTABLE | Routin | 12/13/2018 | | Results for this | | | e | 8:40 AM | | procedure are in the | | | | PDT | | results section. | + +--------+ + + + documented in this encounter Results XR Chest AP Portable (12/13/2018 8:40 AM PDT) + + | Specimen | [...]
--- OUTSIDE RECORDS SUMMARY | ~2020-03-30 | XMS | Encounter Summary ---
Demographics + + + | Address | [address] | | | [place] [address] | + + + | Home Phone [...] Providers + +------+ + | Care Car Stereo Installer Name | Role | Phone | + +------+ + | Lauryn Stuart | PCP | | + +------+ + Encounter Details +--------+ + + + + | Date | Type | Department | Care Team | Description | +--------+ + + + + | 11/22/ | Procedure | Radiology/Imaging | | | | 2019 | Pass | Lab at [facility] [address] | | | | | | [address] [facility] | | | | | | Health and Healing, | | | | | | [address] | | | | | | Floor [place], [place] | | | | | | [address] | | | | | | [phone] | | | +--------+ + + + [...] | | | | | | [place] [address] | | | | | | [phone] | | | | | | | | +--------+---------+ + + + | 04/30/ | Office | Otolaryngology | Augustine Nolan | | | 2019 | Visit | | MD Debbie [address] | | | | | | [address] | | | | | | [place] | | | | | | [address] | | | | | | [phone] | | | | | | | | +--------+---------+ + + + documented as of this encounter Visit Diagnoses Not on filedocumented in this encounter
--- OUTSIDE RECORDS SUMMARY | ~2020-03-30 | XMS | Encounter Summary ---
Demographics + + + | Address | [address] | | | [place] [address] | + + + | Home Phone [...] | Author | [facility] | | | and Jakobana | + + + | Organization | [facility] [...] Team Providers + +------+ + | Care Recyclable Materials Distributor Name | Role | Phone | + [...] neoplasm of | Boubacar Daniels, | [address] | | | | | unspecified | MD [address] | [place], | | | | | part of | [facility] | [place] [address] | | | | | unspecified | [address] | Phone: | | | | | bronchus or | [place], | [phone] | | | | | lung (HCC) | [place] [address] | Fax: | | | | | Procedures | Phone: | [phone] | | | | | [place] VITAMIN | [phone] | | | | | | B12 | Fax: | | | | | | INJECTION, | [phone] | | | | | | [address] [place] | | | | | | | ONDANSETRON | | | | | | | ORAL [place] | | | | | | | ORAL | | | | | | | DEXAMETHASON | | | | | | | E, .25 MG | | | | | | | [place] INJ., | | | | | | | APREPITANT, | | | | | | | 1 MG [place] | | | | | | | PEMETREXED | | | | | | | INJECTION, | | | | | | | 10 MG [place] | | | | | | | CARBOPLATIN | | | | | | | INJECTION, | | | | | | | 50 MG [place] | | | | | | | ADRENALIN | | | | | | | EPINEPHRINE | | | | | | | INJECT, .1 | | | | | | | MG [place] | | | | | | | DIPHENHYDRAM | | | | | | | INE HCL | | | | | | | INJECTIO, 50 | | | | | | | MG [place] | | | | | | | METHYLPREDNI | | | | | | | SOLONE | | | | | | | INJECTION, | | | | | | | 125 MG [place] | | | | | | | ALBUTEROL | | | | | | | COMP CON, 1 | | | | | | | MG [place] | | | | | | | ALBUTEROL | | | | | | | NON-COMP | | | | | | | CON, 1 MG | | | | | | | IL | | | | | | | INJECTION, | | | | | | | FAMOTIDINE, | | | | | | | 20 MG [place] | | | | | | | NORMAL | | | | | | | SALINE | | | | | | | SOLUTION | | | | | | | INFUS, 500 | | | | | | | ML [place] | | | | | | | NORMAL | | | | | | | SALINE | | | | | | | SOLUTION | | | | | | | INFUS, 250 | | | | | | | ML [place] | | | | | | | STERILE | | | | | | | WATER/SALINE | | | | | | | , 10 ML [place] | | | | | | | CHEMOTHER, | | | | | | | IV PUSH,EA | | | | | | | ADD DRUG IL | | | | | | | CHEMOTHER, | | | | | | | IV INFUSION, | | | | | | | 1 HR IL | | | | | | | CHEMOTHER, | | | | | | | IV INFUSION, | | | | | | | EA HR IL | | | | | | | CHEMOTHER,NO | | | | | | | N-HORMONE | | | | | | | ANTI-NEOPL, | | | | | | | SUB-Q/IM IL | | | | | | | CHEMOTHER | | | | | | | HORMON | | | | | | | ANTINEOPL | | | | | | | SUB-Q/IM IL | | | | | | | | | | | | | | PALONOSETRON | | | | | | | HCL, 25 MCG | | | +--------+--------+ + + + + Encounter Details +--------+ + + + + | Date | Type | Department | Care Team | Description | +--------+ + + + + | 04/15/ | Hospital | [facility] | Adolfo, | 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 | | | | INFUSION [address] [place] | left lung (HCC) | | | | [place], | [address] [place], [place] | (Primary Dx) | | | | [place] [address] | [address] | | | | | [phone] | | | +--------+ + + + [...] + + + | Blood Pressure | 114/72 | 04/15/2019 2:14 PM | | | | | PDT | | + + + + + | Pulse | 69 | 04/15/2019 2:14 PM | | | | | PDT | | + + + + + | Temperature | 36.7 C (98.1 F) | 04/15/2019 2:14 PM | | | | | PDT | | + + + + + | Respiratory Rate | 16 | 04/15/2019 2:14 PM | | | | | PDT | | + + + + + | Oxygen Saturation | 98% | 04/15/2019 2:14 PM | | | | | PDT [...] encounter Progress Notes Vee Anderson RN - 04/15/2019 2:23 PM PDTPatient discharged in satisfactory condit ion. Discharged ambulatory. With self. To home. Verified that patient has antinausea medications at home. Future appointments and After Visit Summary (AVS) provided. Sonam Mcfarlane RN - 04/15/2019 12:30 PM PDTJudroz is here today for IV fluids. She feels like she is digressing. She states it hurts to eat/s wallow again and she is feeling discouraged.Electronically signed by Sonam Steele RN at 0 04/15/2019 12:31 PM PDTdocumented in this encounter Plan of Treatment +--------+ + + + + | Date | Type | Specialty | Care Team | Description | +--------+ + + + + | 04/20/ | Appointment | Radiation Oncology | Treva Ortega | | | 2019 | | | DEISY Hernandez [address] | | | | | | [facility] | | | | | | [place] [address] | | | | | | [phone] | | | | | | | [...] chloride 0.9% (NS) | New Bag | 04/15/20 | | 500 | | | infusion at 500 mL/hr, | | 19 12:56 | | mL/hr | | | Intravenous, ONCE, Christine 04/15/19 at | | PM PDT | | | | | 1245, For 1 dose, 1000 cc ns iv | | | | | | | over 2 hours., | | | | | | + +---------+ +------+-------+------+ +---+---+ | | | +---+---+ documented in this encounter"
--- OUTSIDE RECORDS SUMMARY | ~2020-03-30 | XMS | Encounter Summary ---
Demographics + + + | Address | [address] | | | [place] [address] | + + + | Home Phone | | + + + | Preferred Language | Unknown | + + + | Marital Status | Single | + + + | Faith Affiliation | Unknown | + + + | Race | Unknown | + + + | Ethnic Group | Unknown | + + + Author + + + | Author | [facility] | | | and Jakobana | + + + | Organization | [facility] | | | and Jakobana [...] Team Providers + +------+ + | Care Procurement Clerk Name | Role | Phone | + +------+ + | Lauryn Stuart PA-C | PCP | | + +------+ + Reason for Visit + + + | Reason | Comments | + + + | Under Treatment | | + + + Encounter Details +--------+ + + + + | Date | Type | Department | Care Team | Description | +--------+ + + + + | 02/27/ | Hospital | [facility] | Fiona Anne | Malignant neoplasm | | 2019 | Encounter | MED CTR RADIATION | MD Issa [address] | of upper lobe of | | | | ONCOLOGY CLINIC [address] | [address] [place], [place] | left lung (HCC) | | | | [address] [place] | [address] | (Primary Dx) | | | | [place] [address] | | | | | | [phone] | | | +--------+ + + + [...] + + + | Blood Pressure | 162/66 | 02/27/2019 4:40 PM | | | | | PDT | | + + + + + | Pulse | 76 | 02/27/2019 4:40 PM | | | | | PDT | | + + + + + | Temperature | 35.3 C (95.5 F) | 02/27/2019 4:40 PM | | | | | PDT | | + + + + + | Respiratory Rate | 16 | 02/27/2019 4:40 PM | | | | | PDT | | + + + + + | Oxygen Saturation | 98% | 02/27/2019 4:40 PM | | | | | PDT | | + + + + + | Inhaled Oxygen | - | - | | | Concentration | | | | + + + + + | Weight | 54.3 kg (119 lb 11.4 | 02/27/2019 4:40 PM | | | | oz) | [...] documented as of this encounter Progress Notes Allie Gallagher RN - 02/27/2019 4:43 PM PDTMet with patient today for nurse education. Ve rbal and written education given to patient regarding general radiation therapy side effects as well as site specific side effects. Reviewed process of OTV day for their doctor, all q uestions at this time were answered. Fiona Fuller M D - 02/27/2019 1:00 PM PDT Radiation Oncology Weekly On Treatment Note Diagnosis: ICD-10-CM ICD-9-CM 1. Malignant neoplasm of upper lobe of left lung (HCC) C34.12 162.3 Reason for visit: On treatment evaluation Radiation technical factors: Dose Delivered Dose Planned Fractions Delivered 200 cGy 5000 cGy 09/13 Images were reviewed this week and results [...] two days after chemotherapy. 40 tablet 0 estradiol (ESTRACE) 2 MG tablet Take 2 [...] current facility-administered medications on file prior to encounter. Vitals: 02/27/19 1640 BP: 162/66 Pulse: 76 Resp: 16 Temp: 35.3 C (95.5 F) SpO2: 98% Weight: 54.3 kg (119 lb 11.4 oz) Physical Exam Constitutional: She appears well-developed and well-nourished. Neurological: She is alert. Skin: No rash noted. No erythema. Psychiatric: She has a normal mood and affect. Physician Assessment: Sussy Allred started radiation today, concurrent with chemotherapy. Reviewed self care recommendations and possible side-effects. Disposition: Continue radiation treatment as planned. Concurrent chemotherapy per Dr. Mata. Fiona Anne MD Radiation Oncologist documented in this encounter Plan of Treatment [...] BONE | | | | | | [place] [address] | | | | | | [phone] | | | | | | | | +--------+ + + + + documented as of this encounter Visit Diagnoses + + | Diagnosis | + + | Malignant neoplasm of upper lobe of left lung (HCC) - Primary | + + documented in this encounter"
--- OUTSIDE RECORDS SUMMARY | ~2020-03-30 | XMS | Encounter Summary ---
Demographics + + + | Address | [address] | | | [place] [address] | + + + | Home Phone [...] | + + +---------+ + | Laura Alrled | ECON | Unknown | | + + +---------+ + Care Team Providers + +------+ + | Care Cloth Bin Packer Name | Role | Phone | [...] 12/04/ | Anesthesia | [address] | Bouchra Abbott MD | | | 2019 | Event | [address] [place] | [address] | | | | | Rd [facility] | [address] [address] [place], | | | | | Hospital Admitting | [place] [address] | | | | | Desk Located on the | [phone] | | | | | 9th floor | | | | | | [place], [place] | Matias Alonso MD | | | | | [address] | [address] | | | | | | [address] | | | | | | [place], [place] | | | | | | [address] | | | | | | [phone] | | | | | | | | +--------+ + + + + Anesthesia Record + + + + + | Procedure Name | Responsible | Anesthesia Start | Anesthesia Stop Time | | | Anesthesiologist | Time | | + + + + + | FLEXIBLE | Bouchra Abbott MD | 12/04/18 0728 [...] | | 1 | Quick Note | [place] [facility] [place] PA clamped | | | 2 | [...] ETT | 12/04/18; 0754 (created via | 12/04/18 0754 by | 12/04/18 153 by | | | procedure documentation); 8; | Sue Duncan, | Sue N [place], | | | Oral; Cuffed; 12/04/18; 1539 | MD | MD | +--------+ + + + | ETT | 12/04/18; 0754 (created via | 12/04/18 0754 by | 12/04/18 1539 by | | | procedure documentation); 35; [...] | | | | | [address] [place], | | | | | | [place] [address] | | | | | | [phone] | | | | | | | | +--------+---------+ + + + | 04/30/ | Office | Otolaryngology | Augustine Nolan | | | 2019 | Visit | | MD Debbie [address] | | | | | | [address] | | | | | | [place] | | | | | | [address] | | | | | | [phone] | | | | | | | | +--------+---------+ + + + documented as of this encounter Procedures + +--------+ + + + | Procedure Name | Priori | Date/Time | Associated Diagnosis | Comments | | | ty | | | | + +--------+ + + + | ANE ETT | Routin | 12/04/2018 | | Results for this | | | e | 1:12 PM | | procedure are in the | | | | PDT | | results section. | + +--------+ + + + | ELMA ETT | Routin | 12/04/2018 | | Results for this | | | e | 12:40 PM | | procedure are in the | | | | PDT | | results section. | + +--------+ + + + | ELMA ART LINE | Routin | 12/04/2018 | | Results for this | | | e | 9:20 AM | | procedure are in the | | | | PDT | | results section. | + +--------+ + + + documented in this encounter Results ELMA ETT (12/04/2018 1:12 PM PDT) + + + | Narrative | Performed At | + + + | Sue Duncan MD 12/04/2018 1:18 PM [facility] [employer] | | | - ETT Time of Intubation: 12/04/2018 7:54 AM Intubation Reason: For | | | surgical procedure Positioning: Supine OXYGENATION Patient was | | | preoxygenated No apneic oxygenation Grade: Grade 0 - Ventilation by | | | mask not attempted Induction:Routine INTUBATION ATTEMPT 1 | | | Videolaryngoscopy: [facility] Standard geometry curved blade Fiberoptics: | | | Flexible endoscopic intubation Intubation Adjuncts: w/ Stylet | | | Laryngoscopic View: Grade I ETT DETAILS ETT Type:Double-lumen | | | Intubation Type: Oral Cuff Status: Cuffed Size: 35F ETT secured | | | with adhesive tape Depth at Lip: 27 cm CONFIRMATION Number of | | | Attempts: 1 Atraumatic Laryngoscopy Positive for EtCO2:Waveform | | | capnography Breath Sounds: Bilateral and equal NARRATIVE | | | Attending physically present Authorized by BOUCHRA ABBOTT Performed | | | by SUE DUNCAN Procedure Comments: Lubricated 35F Left | | | MARY placed under indirect visualization using CMAC in exchange for | | | 8.0 ETT. Atraumatic intubation. MARY positioned confirm with bronch. | | | | | + + + ANE ETT (12/04/2018 12:40 PM PDT) + + + | Narrative | Performed At | + + + | Sue Duncan MD 12/04/2018 12:45 PM [employer] | | | - ETT Time of Intubation: 12/04/2018 7:54 AM Intubation Reason: For | | | surgical procedure Positioning: Supine OXYGENATION Patient was | | | preoxygenated No apneic oxygenation Grade: Grade 1 - Ventilated by | | | mask Manual in-Line Stabilization: No Induction:Routine, without | | | Cricoid Pressure INTUBATION ATTEMPT 1 Blade Type: Alejandra | | | Blade #: 3 Laryngoscopic View: Grade III ATTEMPT 2 Blade Type: | | | Alejandra Blade #: 3 Intubation adjuncts: w/ Stylet Laryngoscopic | | | View: Grade II ETT DETAILS ETT Type:Standard, Hi-Lo Cuffed | | | Intubation Type: Oral Cuff Status: Cuffed Size: 8 ETT secured | | | with adhesive tape Depth at Lip: 22 cm CONFIRMATION Number of | | | Attempts: 2 Atraumatic Laryngoscopy Positive for EtCO2:Waveform | | | capnography Breath Sounds: Bilateral and equal NARRATIVE | | | Attending physically present Authorized by BOUCHRA ABBOTT Performed | | | by SUE DUNCAN Procedure Comments: Easy BMV. First | | | attempt my medical student- grade III v with MAC 3 blade. | | | Repositioned & Intubated on 2nd attempt. Atraumatic intubation. | | + + + Art Line (12/04/2018 9:20 AM PDT) + + + | Narrative | Performed At | + + + | Sue Duncan MD 01/20/2019 10:41 AM Procedure ART LINE | | | Procedure Information Inserted: After Induction 10 minutes [...] BOUCHRA ABBOTT | | + + + documented in this encounter Visit Diagnoses Not on filedocumented in this encounter Administered Medications + +--------+ +---------+------+------+ | Medication Order | MAR | Action | Dose | Rate | Site | | | Action | Date | | | | + +--------+ +---------+------+------+ | albuterol (PROVENTIL, VENTOLIN) | Given | 12/05/19 | 8 puffs | | | | 90 mcg/actuation inhaler | | 19 9:57 | | | | | INTRAPROCEDURE PRN, Starting Wed | | AM PDT | | | | | 12/04/18 at 0957, Until Wed | | | | | | | 12/04/18 at 1551 | | | | | | + +--------+ +---------+------+------+ +---+---+ | | | +---+---+ + +-------+ + +---+---+ | ceFAZolin (ANCEF) injection 2 g | Given | 12/05/19 | 2,000 mg | | | | 2 g, intravenous, PREPROCEDURE | | 19 12:46 | | | | | ONCE, 1 dose, Starting Wed | | PM PDT | | | | | 12/04/18 at 0613, Until Wed | | | | | | | 12/04/18 at 1246 | | | | | | + +-------+ + +---+---+ +-------+ + +---+---+ | Given | 12/05/19 | 2,000 mg | | | | | 19 8:46 | | | | | | AM PDT | | | | +-------+ + +---+---+ +---+---+ | | | +---+---+ + +-------+ +-------+---+---+ | dexamethasone (DECADRON) | Given | 12/05/19 | 10 mg | | | | injection INTRAPROCEDURE PRN, | | 19 8:24 | | | | | Starting 12/04/18 at 0824, | | AM PDT | | | | | Until Sun12/04/18 at 1551 | | | | | | + +-------+ +-------+---+---+ +---+---+ | | | +---+---+ + +-------+ +-------+---+---+ | ePHEDrine injection | Given | 12/05/19 | 10 mg | | | | intravenous, INTRAPROCEDURE PRN, | | 19 8:00 | | | | | Starting Sun12/04/18 at 0800, | | AM PDT | | | | | Until Sun12/04/18 at 1551 | | | | | | + +-------+ +-------+---+---+ +---+---+ | | | +---+---+ + +-------+ +--------+---+---+ | fentaNYL (SUBLIMAZE) injection | Given | 12/05/19 | 50 mcg | | | | INTRAPROCEDURE PRN, Starting Sun | | 19 3:48 | | | | | 12/04/18 at 0748, Until Sun | | PM PDT | | | | | 12/04/18 at 1551 | | | | | | + +-------+ +--------+---+---+ +-------+ +--------+---+---+ | Given | 12/05/19 | 25 mcg | | | | | 19 3:40 | | | | | | PM PDT | | | | +-------+ +--------+---+---+ | Given | 12/05/19 | 25 mcg | | | | | 19 3:24 | | | | | | PM PDT | | | | +-------+ +--------+---+---+ +---+---+ | | | +---+---+ + +-------+ +--------+---+---+ | glycopyrrolate (MONTSERRAT) | Given | 12/05/19 | 0.2 mg | | | | injection INTRAPROCEDURE PRN, | | 19 9:30 | | | | | Starting Sun12/04/18 at 0930, | | AM PDT | | | | | Until Sun12/04/18 at 1551 | | | | | | + +-------+ +--------+---+---+ +---+---+ | | | +---+---+ + +-------+ +--------+---+---+ | heparin bolus from continuous | Given | 12/05/19 | 1,000 | | | | infusion intravenous, | | 19 2:13 | Units | | | | INTRAPROCEDURE PRN, Starting Wed | | PM PDT | | | | | 12/04/18 at 1325, Until Wed | | | | | | | 12/04/18 at 1551 | | | | | | + +-------+ +--------+---+---+ +-------+ +--------+---+---+ | Given | 12/05/19 | 2,000 | | | | | 19 1:25 | Units | | | | | PM PDT | | | | +-------+ +--------+---+---+ +---+---+ | | | +---+---+ + +-------+ +--------+---+---+ | HYDROmorphone (DILAUDID) | Given | 12/05/19 | 0.5 mg | | | | injection INTRAPROCEDURE PRN, | | 19 3:52 | | | | | Starting Sun12/04/18 at 1552, | | PM PDT | | | | | Until Sun12/04/18 at 1553 | | | | | | + +-------+ +--------+---+---+ +-------+ +--------+---+---+ | Given | 12/05/19 | 0.5 mg | | | | | 19 2:50 | | | | | | PM PDT | | | | +-------+ +--------+---+---+ +---+---+ | | | +---+---+ + +---------+ + +---------+---+ | insulin regular in NaCl 0.9% IV | New Bag | 12/05/19 | 2 | 2 mL/hr | | | infusion (1 unit/mL) | | 19 1:36 | Units/hr | | | | INTRAPROCEDURE CONTINUOUS PRN, | | PM PDT | | | | | Starting Sun12/04/18 at 1336, | | | | | | | Until Sun12/04/18 at 1551 | | | | | | + +---------+ + +---------+---+ +---+---+ | | | +---+---+ + +-------+ +-------+---+---+ | ketamine (KETALAR) injection | Given | 12/05/19 | 25 mg | | | | INTRAPROCEDURE PRN, Starting Wed | | 19 2:45 | | | | | 12/04/18 at 1445, Until Wed | | PM PDT | | | | | 12/04/18 at 1551 | | | | | | + +-------+ +-------+---+---+ +---+---+ | | | +---+---+ + + + +---+---+---+ | lactated ringers IV 10 mL/hr, | given by | 12/05/19 | | | | | intravenous, PROCEDURE | | 19 3:29 | | | | | CONTINUOUS, Starting 12/04/18 | anesthes | PM PDT | | | | | at 0615, Until Sun12/04/18 at | iology | | | | | | 1734 | | | | | | + + + +---+---+---+ + + +---+---+---+ | given by anesthesiology | 12/05/19 | | | | | | 19 1:45 | | | | | | PM PDT | | | | + + +---+---+---+ | New Bag | 12/05/19 | | | | | | 19 11:32 | | | | | | AM PDT | | | | + + +---+---+---+ +---+---+ | | | +---+---+ + +-------+ +-------+---+---+ | lidocaine PF (XYLOCAINE MPF) 20 | Given | 12/05/19 | 60 mg | | | | mg/mL (2 %) injection | | 19 7:52 | | | | | INTRAPROCEDURE PRN, Starting Wed | | AM PDT | | | | | 12/04/18 at 0752, Until Wed | | | | | | | 12/04/18 at 1551 | | | | | | + +-------+ +-------+---+---+ +---+---+ | | | +---+---+ + +-------+ +------+---+---+ | midazolam (PF) (VERSED) | Given | 12/05/19 | 1 mg | | | | injection INTRAPROCEDURE PRN, | | 19 7:39 | | | | | Starting 12/04/18 at 0728, | | AM PDT | | | | | Until 12/04/18 at 1551 | | | | | | + +-------+ +------+---+---+ +-------+ +------+---+---+ | Given | 12/05/19 | 1 mg | | | | | 19 7:28 | | | | | | AM PDT | | | | +-------+ +------+---+---+ +---+---+ | | | +---+---+ + +-------+ +------+---+---+ | ondansetron (ZOFRAN) injection | Given | 12/05/19 | 4 mg | | | | INTRAPROCEDURE PRN, Starting Wed | | 19 3:16 | | | | | 12/04/18 at 1516, Until Wed | | PM PDT | | | | | 12/04/18 at 1551 | | | | | | + +-------+ +------+---+---+ +---+---+ | | | +---+---+ + +-------+ +---------+---+---+ | PHENYLEPHrine 100 mcg/mL | Given | 12/05/19 | 100 mcg | | | | injection (OR syringe) | | 19 3:06 | | | | | intravenous, INTRAPROCEDURE PRN, | | PM PDT | | | | | Starting Sun12/04/18 at 0800, | | | | | | | Until Sun12/04/18 at 1551 | | | | | | + +-------+ +---------+---+---+ +-------+ +---------+---+---+ | Given | 12/05/19 | 100 mcg | | | | | 19 2:53 | | | | | | PM PDT | | | | +-------+ +---------+---+---+ | Given | 12/05/19 | 100 mcg | | | | | 19 2:16 | | | | | | PM PDT | | | | +-------+ +---------+---+---+ +---+---+ | | | +---+---+ + +---------+ + +---+---+ | propofol (DIPRIVAN) 200 mg | New Bag | 12/05/19 | 150 | | | | INTRAPROCEDURE CONTINUOUS PRN, | | 19 7:57 | mcg/kg/m | | | | Starting Sun12/04/18 at 0757, | | AM PDT | in | | | | Until Sun12/04/18 at 1551 | | | | | | + +---------+ + +---+---+ +---+---+ | | | +---+---+ + +-------+ +-------+---+---+ | propofol (DIPRIVAN) 200 mg | Bolus | 12/05/19 | 30 mg | | | | INTRAPROCEDURE CONTINUOUS PRN, | | 19 9:58 | | | | | Starting Sun12/04/18 at 0752, | | AM PDT | | | | | Until Sun12/04/18 at 1551 | | | | | | + +-------+ +-------+---+---+ +-------+ +-------+---+---+ | Bolus | 12/05/19 | 40 mg | | | | | 19 7:55 | | | | | | AM PDT | | | | +-------+ +-------+---+---+ | Bolus | 12/05/19 | 40 mg | | | | | 19 7:53 | | | | | | AM PDT | | | | +-------+ +-------+---+---+ +---+---+ | | | +---+---+ + +-------+ +-------+---+---+ | rocuronium (ZEMURON) injection | Given | 12/05/19 | 15 mg | | | | INTRAPROCEDURE PRN, Starting Wed | | 19 11:25 | | | | | 12/04/18 at 0752, Until Wed | | AM PDT | | | | | 12/04/18 at 1551 | | | | | | + +-------+ +-------+---+---+ +-------+ +-------+---+---+ | Given | 12/05/19 | 20 mg | | | | | 19 9:45 | | | | | | AM PDT | | | | +-------+ +-------+---+---+ | Given | 12/05/19 | 20 mg | | | | | 19 8:54 | | | | | | AM PDT | | | | +-------+ +-------+---+---+ +---+---+ | | | +---+---+ + +-------+ +--------+---+---+ | sugammadex (BRIDION) IV | Given | 12/05/19 | 232 mg | | | | INTRAPROCEDURE PRN, Starting Wed | | 19 3:14 | | | | | 12/04/18 at 1514, Until Wed | | PM PDT | | | | | 12/04/18 at 1551 | | | | | | + +-------+ +--------+---+---+ +---+---+ | | | +---+---+ documented in this encounter
--- OUTSIDE RECORDS SUMMARY | ~2020-03-30 | XMS | Encounter Summary ---
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 | Phone | [...] | | of left lung | [address] | [place], | | | | | (HCC) | [place], | [place] [address] | | | | | Procedures | [place] | Phone: | | | | | [address] | [address] | [phone] | | | | | | Phone: | Fax: | | | | | | [phone] | [phone] | | | | | | Fax: | | | | | | | [phone] | | +--------+--------+ + + + + Encounter Details +--------+ + + + + | Date | Type | Department | Care Team | Description | +--------+ + + + + | 03/06/ | Hospital | [facility] | Adolfo, | Acute respiratory | | 2019 | Encounter | [facility] | Boubacar Daniels MD 3589 | distress syndrome | | | | [facility] | [facility] | (ARDS) (HCC) | | | | [address] [place] | [address] [place], [place] | (Primary Dx); | | | | [place] [address] | [address] | Aspiration | | | | [phone] | | pneumonitis (HCC); | | | | | | Malignant neoplasm | | | | | | of upper lobe of | | | | | | left lung (HCC); | | | | | | Hypertension, | | | | | | unspecified type; | | | | | | Leukocytosis, | | | | | | unspecified type; | | | | | | Postoperative anemia | | | | | | due to acute blood | | | | | | loss | +--------+ + + + + Social [...] + + + | Blood Pressure | 123/81 | 03/06/2019 11:18 AM | | | | | PDT | | + + + + + | Pulse | 104 | 03/06/2019 11:18 AM | | | | | PDT | | + + + + + | Temperature | 36.6 C (97.9 F) | 03/06/2019 11:18 AM | | | | | PDT | | + + + + + | Respiratory Rate | 18 | 03/06/2019 11:18 AM | | | | | PDT | | + + + + + | Oxygen Saturation | 100% | 03/06/2019 11:18 AM | | | | | PDT | | + + + + + | Inhaled Oxygen | - | - | | | Concentration | | | | + + + + + | Weight | 53.9 kg (118 lb 13.3 | 03/06/2019 11:18 AM | | | | oz) | [...] encounter Progress Notes Boubacar Mata MD - 03/06/2019 11:22 AM PDTFormatting of this note might be differe nt from the original. Hematology/Oncology Progress Note [facility] [place] Pt. Name/Age/: Sussy Allred 69 y.o. 1950 Med. Record Number: [id number] Date of admission: 03/06/2019 The patient's primary care provider is Lauryn Stuart PA-C. Identifying Statement: Sussy Allred is a 69 y.o. female from [address] [place] [address] with Stage IIIA poorly differentiated adenocarcinoma of the lung, status post left upper lobectomy December 04, 2018. The patient chart and medications were reviewed in detail and the patient was seen and exam ined. History of Present Illnesses, their Current Assessments and Plans: Problem List Acute respiratory distress syndrome (ARDS) Aspiration pneumonitis Overview Last Assessment & Plan: Increasing oxygen requirements overnight from 12/05 to 12/06 with worsening ground glass opac ities in right lung with concern for aspiration in setting of dysphagia. 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 Patholog ica specimen # [id number] was notable for a poorly differentiated adenocarcinoma, [...] initiation of ext ernal beam radiation therapy. Current Assessment & Plan Sussy Allred returned to clinic alone on 03/06/2019 alone for follow up, cycle #2 day #8 of adjuvant carboplatin/pemetrexed for Stage IIIA adenocarcinoma of th left lung. Interval history is notable for the fact that Katharina is now under beam. Review of systems is notable for fatigue, dysphagia, dyspnea on exertion, non-productive co ugh, headaches and post-thoracotomy pain-relieved with oxycodone. Clinical exam is notable for the fact that hoarseness has improved after vocal cord surgica l intervention. Laboratory exam is notable for grade 2 leukopenia and grade 1 neutropenia. Assessment; Stage IIIA adenocarcinoma of the lung status post left upper lobe lobectomy Apr il 2018. Plan; continue adjuvant external beam radiation therapy. Return on March 20, 2019 for her third of a planned four cycles of adjuvant carboplatin/pem etrexed. Postoperative anemia due to acute blood loss Overview Last Assessment & Plan: - monitor chest tube output - CBC daily Review of Systems: Constitutional: Reports low energy levels, unchanged. Taste changes. Denies fatigue. Denie s high fevers, shaking chills, anorexia, nausea, vomiting, weight loss, or night sweats. Brandon etite without changes. Ear, Nose, Mouth, Throat: Reports dysphagia since surgery. Denies odynophagia, or tinnitus . Cardiovascular: Reports WILLIS, SOB, and poor activity tolerance. Reports chest pain, attribut es to possibly being surgical pain. Denies palpitations or orthopnea. States heart has been racing reently. Respiratory: Reports ongoing dry cough, unchanged. Denies hemoptysis, or sputum production. Gastrointestinal: Denies abdominal pain, constipation, diarrhea, melena, or bright red bloo d per rectum. Genitourinary: Denies hematuria or dysuria. Musculoskeletal: Reports ongoing neck pain. Neurologic: Reports headaches, are getting worse. Reports visual changes since surgery, L e ye blurring/"absent areas." Denies numbness/tingling of the extremities. Endocrine: Denies peripheral edema or heat/cold intolerance. New swelling in ankles and fee t. Hematologic: Denies spontaneous bruising or bleeding. Easier to bruise. Integumentary: Denies rash, wounds or other skin concerns. New red spots on arms and hands. Pain: Reports surgical site pain, rates at 7/10. Reports ongoing neck pain, taking oxycodon e QID w/ relief per pt Note: Here for tx f/u, and labs. * Heartburn recently and feels like heart is racing hr was at rest 104 today. My chart: Declined Review of systems as [...] Objectives: Temp: 36.6 C (97.9 F) BP: 123/81 Pulse: 104 Resp: 18 SpO2: 100 % on Min/Max Temp past 24 hours:No data recorded No intake or output data in the 24 hours ending 03/09/19 1909 Wt. Admission: Weight: 53.9 kg (118 lb [...] Am. J. Clin. Oncol.: Niranjan Lopez., Romeo, R.H., Jem, Renaldo., May Avery., Turner, T.E., Coral, CelsoT., Georgette, P .P.: Toxicity And Response Criteria [...] the Assessment and Plan. Results for SUSSY ALLRED" ( ) as of 03/09/2019 18:41 Ref. Range 03/06/2019 11:05 WBC Latest Ref Range: 4.0 - 11.0 K/uL 2.7 (L) RBC COUNT Latest Ref Range: 3.70 - 5.20 M/uL 3.89 Hemoglobin Latest Ref Range: 11.5 - 16.0 g/dL 11.5 Hematocrit Latest Ref Range: 34.0 - 47.0 % 35.4 MCV Latest Ref Range: 83.0 - 101.0 fL 91.0 MCH Latest Ref Range: 28.0 - 35.0 pg 29.6 MCHC Latest Ref Range: 32.0 - 36.0 g/dL 32.5 RDW-CV Latest Ref Range: <15.0 % 17.6 (H) RDW-SD Latest Ref Range: 35.1 - 46.3 fL 58.2 (H) Platelet Count Latest Ref Range: 140 - 440 K/uL 256 MPV Latest Ref Range: 6.5 - 12.4 fL 8.4 Immature Platelet Fraction Latest Ref Range: 0.9 - 11.2 % 1.3 % nRBC Latest Ref Range: 0 - 2 per 100 WBCs 0 Absolute nRBC Latest Ref Range: 0.00 - 0.01 K/uL 0.00 Absolute Neutrophils Latest Ref Range: 1.80 - 8.50 K/uL 1.57 (L) Absolute Lymphocytes Latest Ref Range: 0.60 - 3.20 K/uL 0.92 Absolute Monocytes Latest Ref Range: 0.00 - 1.00 K/uL 0.16 Absolute Eosinophils Latest Ref Range: 0.00 - 0.40 K/uL 0.01 Absolute Basophils Latest Ref Range: 0.00 - 0.10 K/uL 0.01 Absolute Immature Granulocytes Latest Ref Range: 0.00 - 0.03 K/uL 0.02 % Neutrophils Latest Ref Range: 45.0 - 82.0 % 58.4 % Lymphocytes Latest Ref Range: 20.0 - 45.0 % 34.2 % Monocytes Latest Ref Range: 4.0 - 12.0 % 5.9 % Eosinophils Latest Ref Range: 0.0 - 5.0 % 0.4 % Basophils Latest Ref Range: 0.0 - 1.0 % 0.4 % Immature Granulocytes Latest Ref Range: 0.0 - 0.4 % 0.7 (H) Na Latest Ref Range: 136 - 145 mmol/L 134 (L) K Latest Ref Range: 3.4 - 5.1 mmol/L 3.8 Chloride Latest Ref Range: 98 - 107 mmol/L 101 Carbon dioxide Latest Ref Range: 20 - 31 mmol/L 25 Anion Gap Latest Ref Range: 3 - 16 mmol/L 8 Glucose Latest Ref Range: 60 - 106 mg/dL 110 (H) BUN Latest Ref Range: 9 - 23 mg/dL 19 Creatinine Latest Ref Range: 0.55 - 1.02 mg/dL 0.75 BUN/Creatinine Ratio Unknown 25.3 Albumin Latest Ref Range: 3.2 - 4.8 g/dL 4.3 Albumin/Globulin Ratio Latest Ref Range: 0.8 - 1.9 1.7 Total Protein Latest Ref Range: 5.7 - 8.2 g/dL 6.8 EGFR IF NOT Latest Ref Range: >=60 mL/min/1.73m2 >60 Calcium Latest Ref Range: 8.7 - 10.4 mg/dL 9.7 ALK PHOS Latest Ref Range: 46 - 116 U/L 92 ALT (SGPT) (REF) Latest Ref Range: 10 - 49 U/L 14 AST (SGOT) (REF) Latest Ref Range: 0 - 34 U/L 24 Bilirubin Total (Calculated) Latest Ref Range: 0.3 - 1.2 mg/dL 0.6 Globulin Latest Ref Range: 2.1 - 3.8 g/dL 2.5 Pharmacovigilance: Palliative Care: Patient's Medications New Prescriptions No medications on file Modified Medications No medications on file Discontinued Medications No medications on file Procedure: Boubacar Mata MD Portions of this chart may have been created with BULX voice recognition software. Occasi onal wrong-word or sound-alike substitutions may have occurred due to the inherent tripathi itations of voice recognition software. Please read the chart carefully and recognize, using context, where these substitutions have occurred.- documented in this encounter Miscellaneous Notes Assessment & Plan Note - Boubacar Mata MD - 03/09/2019 6:42 PM PDTAssociated Prob kati(s): Lung cancer (HCC)Sussy Allred returned to clinic alone on 03/06/2019 alone for fo llow up, cycle #2 day #8 of adjuvant carboplatin/pemetrexed for Stage IIIA adenocarcinoma of th left lung. Interval history is notable for the fact that Katharina is now under beam. Review of systems is notable for fatigue, dysphagia, dyspnea on exertion, non-productive co ugh, headaches and post-thoracotomy pain-relieved with oxycodone. Clinical exam is notable for the fact that hoarseness has improved after vocal cord surgica l intervention. Laboratory exam is notable for grade 2 leukopenia and grade 1 neutropenia. Assessment; Stage IIIA adenocarcinoma of the lung status post left upper lobe lobectomy Nov. Plan; continue adjuvant external beam radiation therapy. Return on March 20, 2019 for her third of a planned four cycles of adjuvant carboplatin/pem etrexed. document ed in this encounter Plan of Treatment +--------+ + + + + | Date | Type | Specialty | Care Team | Description | +--------+ + + + + | 04/20/ | Appointment | Radiation Oncology | Treva Ortega | | | 2019 | | | DEISY [address] | | | | | | [address] | | | | | | [place] [address] | | | | | | [phone] | | | | | | | | +--------+ + + + + documented as of this encounter Procedures + +--------+ + + + | Procedure Name | Priori | Date/Time | Associated Diagnosis | Comments | | | ty | | | | + +--------+ + + + | CBC WITH | STAT | 03/06/2019 | Acute respiratory | Results for this | | DIFFERENTIAL | | 11:05 AM | distress syndrome | procedure are in the | | | | PDT | (ARDS) ([facility]) | results section. | | | | | Aspiration | | | | | | pneumonitis (HCC) | | | | | | Malignant neoplasm | | | | | | of upper lobe of | | | | | | left lung ([facility]) | | | | | | Hypertension, | | | | | | unspecified type | | + +--------+ + + + | COMPREHENSIVE | STAT | 03/06/2019 | Acute respiratory | Results for this | | METABOLIC PANEL | | 11:05 AM | distress syndrome | procedure are in the | | | | PDT | (ARDS) (HCC) | results section. | | | | | Aspiration | | | | | | pneumonitis (HCC) | | | | | | Malignant neoplasm | | | | | | of upper lobe of | | | | | | left lung (HCC) | | | | | | Hypertension, | | | | | | unspecified type | | + +--------+ + + + documented in this encounter Results Comprehensive Metabolic Panel (03/06/2019 11:05 AM PDT) + + + + + + | Component | Value | Ref Range | Performed | Pathologist | | | | | At | Signature | + + + + + + | Na | 134 (L) | 136 - 145 | [facility] | | | | | mmol/L | [facility] | | | | | | [facility] | | | | | | [facility] - | | | | | | LABORATORY | | + + + + + + | K | 3.8 | 3.4 - 5.1 | [facility] | | | | | mmol/L | [facility] | | | | | | [facility] | | | | | | [facility] - | | | | | | LABORATORY | | + + + + + + | Cl | 101 | 98 - 107 mmol/L | [facility] | | | | | | [facility] | | | | | | [facility] | | | | | | [facility] - | | | | | | LABORATORY | | + + + + + + | CO2 | 25 | 20 - 31 mmol/L | [facility] | | | | | | [facility] | | | | | | [facility] | | | | | | [facility] - | | | | | | LABORATORY | | + + + + + + | Anion Gap | 8 | 3 - 16 mmol/L | [facility] | | | | | | [facility] | | | | | | [facility] | | | | | | [facility] - | | | | | | LABORATORY | | + + + + + + | Glucose | 110 (H) | 60 - 106 mg/dL | [facility] | | | | | | [facility] | | | | | | [facility] | | | | | | [facility] - | | | | | | LABORATORY | | + + + + + + | BUN | 19 | 9 - 23 mg/dL | [facility] | | | | | | [facility] | [facility] | | | | | | [facility] - | | | | | | LABORATORY | | + + + + + + | Creatinine | 0.75 | 0.55 - 1.02 | [facility] | [...] mL/min/1.73m2 | [facility] | | | Vietnamese | RATE,ESTIMATED | | MEDICAL | | | | mL/min/1.96w3Mxle than | | CENTER - | | [...] | 9.7 | 8.7 - 10.4 | [facility] | | | | | mg/dL | [facility] | | | | | | [facility] | | | | | | C[facility] - | | | | | | LABORATORY | | + + + + + + | Albumin | 4.3 | 3.2 - 4.8 g/dL | [facility] | | | | | | [facility] | | | | | | [facility] | | | | | | [facility] - | | | | | | LABORATORY | | + + + + + + | Bilirubin | 0.6 | 0.3 - 1.2 mg/dL | [facility] [...] + + + + | AST | 24 | 0 - 34 U/L | [facility] [...] + + + + | Alkaline | 92 | 46 - 116 U/L | [facility] [...] + + + + | BUN/Creatin | 25.3 | | [facility] | | | ine Ratio | | | [facility] | | | | [...] | + + + + + | [facility] | [address] | [place] | [phone] | | [facility] | | [id number] | | | - LABORATORY | | | | + + + + + CBC with Differential (03/06/2019 11:05 AM PDT) + + + + + + | Component | Value | Ref Range | Performed | Pathologist | | | | | At | Signature | + + + + + + | White Blood | 2.7 (L) | 4.0 - 11.0 K/uL | [facility] | | | Cells | | | [facility] | | | | | | MEDICAL | | | | | | CENTER - | | | | | | LABORATORY | | + + + + + + | Red Blood | 3.89 | 3.70 - 5.20 | [facility] | | | Cells | | M/uL | [facility] | | | | | | MEDICAL | | | | | | CENTER - | | | | | | LABORATORY | | + + + + + + | Hemoglobin | 11.5 | 11.5 - 16.0 | [facility] | | | | | g/dL | [facility] | | | | | | [facility] | | | | | | CENTER - | | | | | | LABORATORY | | + + + + + + | Hematocrit | 35.4 | 34.0 - 47.0 % | [facility] | | | | | | [facility] | | | | | | [facility] | | | | | | CENTER - | | | | | | LABORATORY | | + + + + + + | MCV | 91.0 | 83.0 - 101.0 fL | [facility] | | | | | | [facility] | | | | | | [facility] | | | | | | [facility] - | | | | | | LABORATORY | | + + + + + + | MCH | 29.6 | 28.0 - 35.0 pg | [facility] | | | | | | [facility] | | | | | | [facility] | | | | | | C[facility] - | | | | | | LABORATORY | | + + + + + + | MCHC | 32.5 | 32.0 - 36.0 | [facility] | | | | | g/dL | [facility] | | | | | | [facility] | | | | | | CENTER - | | | | | | LABORATORY | | + + + + + + | RDW-CV | 17.6 (H) | <15.0 % | [facility] | | | | | | [facility] | | | | | | [facility] | | | | | | CENTER - | | | | | | LABORATORY | | + + + + + + | RDW-SD | 58.2 (H) | 35.1 - 46.3 fL | [facility] | | | | | | [facility] | | | | | | [facility] | | | | | | CENTER - | | | | | | LABORATORY | | + + + + + + | Platelet | 256 | 140 - 440 K/uL | [facility] | | | Count | | | [facility] | | | | | | MEDICAL | | | | | | CENTER - | | | | | | LABORATORY | | + + + + + + | MPV | 8.4 | 6.5 - 12.4 fL | [facility] | | | | | | [facility] | | | | | | MEDICAL | | | | | | CENTER - | | | | | | LABORATORY | | + + + + + + | Immature | 1.3Comment: Low PLT + | 0.9 - 11.2 % | [facility] | | | Platelet | Low IPF are consistent | | [facility] | | | Fraction | with a production | | MEDICAL | | | | disorder. Low PLT + High | | CENTER - | | | | IPF are consistent with | | LABORATORY | | | | increased platelet | | | | | | destruction. | | | | + + + + + + | % | 58.4 | 45.0 - 82.0 % | [facility] | | | Neutrophils | | | [facility] | | | | | | [facility]ICAL | | | | | | CENTER - | | | | | | LABORATORY | | + + + + + + | % | 34.2 | 20.0 - 45.0 % | [facility] | | | Lymphocytes | | | [facility] | | | | | | MEDICAL | | | | | | CENTER - | | | | | | LABORATORY | | + + + + + + | % Monocytes | 5.9 | 4.0 - 12.0 % | [facility] [...] + + + | % Basophils | 0.4 | 0.0 - 1.0 % | [facility] [...] | Preliminary studies have | | [facility] | | | s | indicated the IG% | | MEDICAL | | | | and/or IG# show promise | | CENTER - | | | | as an early indicator | | LABORATORY | | | | for infection. | | | | + + + + + + | Absolute | 1.57 (L) | 1.80 - 8.50 | [facility] | | | Neutrophils | | K/uL | [facility] | | | | | | [facility]ICAL | | | | | | CENTER - | | | | | | LABORATORY | | + + + + + + | Absolute | 0.92 | 0.60 - 3.20 | [facility] | | | Lymphocytes | | K/uL | [facility] | | | | | | [facility] | | | | | | CENTER - | | | | | | LABORATORY | | + + + + + + | Absolute | 0.16 | 0.00 - 1.00 | [facility] | | | Monocytes | | K/uL | [facility] | | | | | | [facility]ICAL | | | | | | CENTER - | | | | | | LABORATORY | | + + + + + + | Absolute | 0.01 | 0.00 - 0.40 | [facility] | [...] + + + + | Absolute | 0.02 | 0.00 - 0.03 | [facility] | [...] ST. | [address] | [place] | [phone] | | [facility] | | [address] | | | - LABORATORY | | | | + + + + + documented in this encounter Visit Diagnoses + + | Diagnosis | + + | Acute respiratory distress syndrome (ARDS) (HCC) - Primary Other pulmonary | | insufficiency, not elsewhere classified, following trauma and surgery | + + | Aspiration pneumonitis (HCC) Pneumonitis due to inhalation of food or vomitus | + + | Malignant neoplasm of upper lobe of left lung (HCC) | + + | Hypertension, unspecified type | + + | Leukocytosis, unspecified type | + + | Postoperative anemia due to acute blood loss Acute posthemorrhagic anemia | + + documented in this encounter
--- OUTSIDE RECORDS SUMMARY | ~2020-03-30 | XMS | Encounter Summary ---
Demographics + + + | Address | [address] | | | [place] [address] | + + + | Home Phone [...] Author + + + | Author | [facility] | + + + | Organization | [facility] | + + + | Address | Unknown | + + + | Phone | Unavailable | + + + Support + + +---------+ + | Name | Relationship | Address | Phone | + + +---------+ + | Laura Allred | ECON | Unknown | | + + +---------+ + Care Team Providers + +------+ + | Care Inside Tester Name | Role | Phone | + +------+ + | Lauryn Stuart | PCP | | + +------+ + Encounter Details +--------+ + + + + | Date | Type | Department | Care Team | Description | +--------+ + + + + | 07/08/ | Abstract | Otolaryngology | Augustine Nolan | | | 2019 | | Laryngology Services | MD Debbie [address] | | | | | at [facility] [address] | | | | | [place] for | [place], [place] | | | | | [facility] He[facility], | [address] | | | | | [facility] [address] | [phone] | | | | | [place], [place] | | | | | | [address] | | | | | | [phone] | | | +--------+ + + + [...] | | 2019 | Visit | | [address] | | | | | | [place], | | | | | | [place] [address] | | | | | | [phone] | | | | | | | | +--------+---------+ + + + | 04/30/ | Office | Otolaryngology | Augustine Nolan | | | 2019 | Visit | | MD Debbie [address] | | | | | | [address] | | | | | | [place] | | | | | | [address] | | | | | | [phone] | | | | | | | | +--------+---------+ + + + documented as of this encounter Visit Diagnoses Not on filedocumented in this encounter
--- OUTSIDE RECORDS SUMMARY | ~2020-03-30 | XMS | Encounter Summary ---
Demographics + + + | Address | [address] | | | [place] [address] | + + + | Home Phone [...] + | Author | [facility] | | | and Jakobana | + + + | Organization | [facility] | | | and Jakobana [...] Team Providers + +------+ + | Care Computer Education Professor Name | Role | Phone | + [...] | +--------+ + + + + | 03/27/ | Hospital | [facility] | Fiona Anne | Malignant neoplasm | | 2019 | Encounter | MED CTR RADIATION | MD Issa [address] | of upper lobe of | | | | [facility] [address] | [place], [place] | left lung (HCC) | | | | [address] | [address] | (Primary Dx) | | | | [place] [address] | | | | | | [phone] | | | +--------+ + + + [...] + + + | Blood Pressure | 140/69 | 03/27/2019 2:23 PM | | | | | PDT | | + + + + + | Pulse | - | - | | + + + + + | Temperature | 36.4 C (97.5 F) | 03/27/2019 2:23 PM | | | | | PDT | | + + + + + | Respiratory Rate | - | - | | + + + + + | Oxygen Saturation | 100% | 03/27/2019 2:23 PM | | | | | PDT | | + + + + + | Inhaled Oxygen | - | - | | | Concentration | | | | + + + + + | Weight | 54.7 kg (120 lb 9.5 | 03/27/2019 2:23 PM | | | | oz) | PDT | | + + + + + | Height | - | - | | + + + + + | Body Mass Index | 20.09 | 01/30/2019 2:26 PM | | | [...] encounter Progress Notes Fiona Anne MD - 03/27/2019 2:26 PM PDT Radiation Oncology Weekly On Treatment Note Diagnosis: ICD-10-CM ICD-9-CM 1. Malignant neoplasm of upper lobe of left lung (HCC) C34.12 162.3 Reason for visit: On treatment evaluation Radiation technical factors: Dose Delivered Dose Planned Fractions Delivered 4200 cGy 5000 cGy Images were reviewed this [...] two days after chemotherapy. 40 tablet 0 ypbmaetbppJWLGV-fkrohqqfh-tvxgpyzd & magnesium hydroxide-simethicone (MAGIC MOUTHWASH) Swish and spit 5 mLs every 4 hours as needed for Pain. (RECIPE=1:1 mixture of Maalox, viscou s lido Dropping diphenhydramine due todrowsiness 200 mL 1 yiunaxbxuaPAFVS-nlgdjojtf-ccqkzsjk & magnesium hydroxide-simethicone (MAGIC MOUTHWASH) Take 5 [...] . 30 tablet 1 sucralfate (CARAFATE) 1 g/10 mL suspension Take 10 mLs by mouth 2 times daily. 600 mL 0 triamterene-hydrochlorothiazide (MAXZIDE-25) 37.5-25 mg per tablet Take 0.5 tablets by mouth Daily. No current facility-administered medications on file prior to encounter. Pain assessment: Location: left chest/back, esophageal and neck Pain Level: PAIN PROG PAIN LEVEL:8 Pain Quality: Sharp and burning in chest/back and esphageal, aching and throbbing in neck Current pain regimen: hydrocodone PRN, magic mouth wash. Wt Readings from Last 3 Encounters: 03/27/19 54.7 kg (120 lb 9.5 oz) 03/20/19 55.8 kg (123 lb 0.3 oz) 03/13/19 54.4 kg (119 lb 14.9 oz) Vitals: 03/27/19 1423 BP: 140/69 Temp: 36.4 C (97.5 F) TempSrc: Temporal SpO2: 100% Weight: 54.7 kg (120 lb 9.5 oz) Physical Exam Constitutional: She is oriented to person, place, and time. She appears well-developed and well-nourished. Eyes: Pupils are equal, round, and reactive to light. Lymphadenopathy: Soft fullness of left SC Neurological: She is alert and oriented to person, place, and time. Psychiatric: She has a normal mood and affect. ULTRASOUND SOFT TISSUE NECK 03/20/2019 2:45 PM IMPRESSION - 1. NO VISIBLE SUPRACLAVICULAR ABNORMALITY. Dictated and Signed by: Lucio Her MD Nurse Assessment and Toxicity Grading: Fatigue- yes 2-3 sleeping or in bed most of the day Skin- 1 red and itchy per patient Respiratory- 1 shortness of breath increases with exertion Upper GI: nausea present and loss of appetite 2 Karnofsky: 70 Lab Results Component Value Date WBC 1.9 (LL) 03/27/2019 HGB 9.5 (L) 03/27/2019 HCT 28.4 (L) 03/27/2019 MCV 92.8 03/27/2019 PLT 197 03/27/2019 Lab Results Component Value Date CREA 0.77 03/20/2019 BUN 17 03/20/2019 NA 138 03/20/2019 K 3.3 (L) 03/20/2019 CL 105 03/20/2019 CO2 25 03/20/2019 Lab Results Component Value Date ALT 15 03/20/2019 AST 19 03/20/2019 ALKPHOS 87 03/20/2019 BILITOT 0.3 03/20/2019 Physician Assessment: Sussy Allred completes radiation today. She has moderate fatigue and radiation esopha gitis. Weight is largely stable. Reports both post-thoracotomy pain (stable) and increased e sophagitis related pain. Narcotics per Dr. Mata. Add gabapenin. Disposition: Start gabapentin - Continue radiation treatment as planned. - f/u in 1 month with brain MRI. Continue to follow with Dr. Mata as directed for ongoing chemotherapy. Fiona Anne MD Radiation Oncologist documented in this encounter Plan of Treatment +--------+ + + + + | Date | Type | Specialty | Care Team | Description | +--------+ + + + + | 04/20/ | Appointment | Radiation Oncology | Treva Ortega | | | 2019 | | | DEISY Hernandez [address] | | | | | | [address] | | | | | | [place] [address] | | | | | | [phone] | | | | | | | | +--------+ + + + + documented as of this encounter Visit Diagnoses + + | Diagnosis | + + | Malignant neoplasm of upper lobe of left lung (HCC) - Primary | + + documented in this encounter"
--- OUTSIDE RECORDS SUMMARY | ~2020-03-30 | XMS | Encounter Summary ---
Demographics + + + | Address | [address] | | | [place] [address] | + + + | Home Phone [...] + + + | Author | [facility] | | | and Jakobana | + + + | Organization | [facility] | | | and Jakobana [...] Team Providers + +------+ + | Care General Ledger Bookkeeper Name | Role | Phone | + [...] Closed | | Radiology | Diagnoses | | [facility] | | | | | Malignant | Adolfo, | Scan [address] | | | | | neoplasm of | [place], | [place] | | | | | hilus of | [address] | [place] | | | | | lung, | [facility] | [address] | | | | | unspecified | [address] | Phone: | | | | | laterality | [place], | [phone] | | | | | ([facility]) | [place] [address] | Fax: | | | | | Procedures | Phone: | [phone] | | | | | PET CT Skull | [phone] | | | | | | Base To Mid | Fax: | | | | | | Thigh | [phone] | | +--------+--------+ + + + + Reason for Visit Diagnostic/Screening (Routine) +--------+--------+ + + + + | Status | Reason | Specialty | Diagnoses / | Referred By | Referred To | | | | | Procedures | Contact | Contact | +--------+--------+ + + + + | Closed | | Radiology | Diagnoses | | [facility] | | | | | Malignant | Adolfo, | Scan [address] | | | | | neoplasm of | [address] Daniels, | [place] | | | | | hilus of | [address] | [place] | | | | | lung, | [facility] | [address] | | | | | unspecified | [address] | Phone: | | | | | laterality | [place], | [phone] | | | | | ([facility]) | [place] [address] | Fax: | | | | | Procedures | Phone: | [phone] | | | | | PET CT Skull | [phone] | | | | | | Base To Mid | Fax: | | | | | | Thigh | [phone] | | +--------+--------+ + + + + Encounter Details +--------+ + + + + | Date | Type | Department | Care Team | Description | +--------+ + + + + | 07/10/ | Hospital | [facility] | Adolfo, | Malignant neoplasm | | 2019 | Encounter | MED CTR PET SCAN | Boubacar Daniels MD [address] | of hilus of lung, | | | | [address] [place] | [address] [facility] [place] | unspecified | | | | [place] [address] | [address] [place] [address] | laterality (HCC) | | | | [phone] | [address] | | | | | | | [...] | | | | | [address] | | | | | | [place] [address] | | | | | | [phone] | | | | | | | | +--------+ + + + + documented as of this encounter Procedures + +--------+ + + + | Procedure Name | Priori | Date/Time | Associated Diagnosis | Comments | | | ty | | | | + +--------+ + + + | PET CT SKULL BASE TO | Routin | 07/10/2019 | Malignant neoplasm | Results for this | | MID THIGH | e | 1:39 PM | of hilus of lung, | procedure are in the | | | | PST | unspecified | results section. | | | | | laterality (HCC) | | + +--------+ + + + documented in this encounter Results PET CT Skull Base To Mid Thigh (07/10/2019 1:39 PM PST) + + | Specimen | + + | | + + + + + | Impressions | Performed At | + + + | Spiculated nodule in the right lung apex measures 11 x 9 mm and | [facility] | | demonstrates no significant FDG uptake (SUV max 0.8 compared to the | | | background lung uptake is 0.4 and mediastinal blood pool mean uptake | | | of 1.9). Redemonstration of the multiple areas of | | | consolidative/patchy groundglass areas of airspace disease along the | | | left hilum/mediastinum which were seen on the most recent CT with | | | mild FDG uptake (SUV max 3.1). These areas are in the direct area of | | | the expected radiation being and may represent postradiation | | | scarring/fibrosis with component of residual neoplasm unable to be | | | excluded. -Continued follow-up is recommended. Asymmetric FDG | | | uptake within the right vocal fold and posterior right arytenoid | | | cartilage which is new since prior examination. -A portion of this | | | may be related to muscular uptake however given the asymmetry, a | | | vocal fold neoplasm cannot be excluded. Dictated and Signed by: | | | Pasha Garrison MD Electronically signed: 07/10/2019 11:20 PM | | + + + + +--------- ------+ | Narrative | Performe d At | + +--------- ------+ | PET CT SKULL | [facility] | | BASE TO MID THIGH 07/10/2019 11:31 AM HISTORY: progress study, | | | non-small cell lung cancer. COMPARISON: 07/03/2019 PROTOCOL: The | | | patient was initially injected with 10.5 mCi FDG F-18. After aone-hour | | | delay, whole body PET images were acquired. Low dose nondiagnostic | | | CTimages were obtained for attenuation correction and fusion. The | | | patient'sfasting blood glucose level at the time of injection was 110 | | | mg/dL. FINDINGS:HEAD AND NECK:Asymmetric FDG uptake within the right | | | vocal fold and posterior right arytenoidcartilage which is new since | | | prior examination (SUV max 6.2). CHEST:Spiculated nodule in the right | | | lung apex measures 11 x 9 mm and demonstrates nosignificant FDG uptake | | | (SUV max 0.8 compared to the background lung uptake is0.4 and | | | mediastinal blood pool mean uptake of 1.9). Small left dependent | | | pleuraleffusion. Redemonstration of the multiple areas of | | | consolidative/patchygroundglass areas of airspace disease along the | | | left hilum/mediastinum whichwere seen on the most recent CT with mild | | | FDG uptake (SUV max 3.1). These areasare in the direct area of the | | | expected radiation being and may representpostradiation | | | scarring/fibrosis with component of residual neoplasm unable to | | | beexcluded. Mild calcification are seen along the areas of pleural | | | thickeningalong the left pleura adjacent mediastinum. ABDOMEN AND | | | PELVIS:No focal mass or FDG uptake identified within the abdomen or | | | pelvis. Diffusediverticulosis. Other chronic findings. SOFT TISSUES | | | AND OSSEOUS STRUCTURES:No suspicious FDG uptake is identified. | | |postradiation scarring/fibrosis with component of residual neoplasm unable to be | | |excluded. Mild calcification are seen along the areas of pleural thickening | | |along the left pleura adjacent mediastinum. | | | | | |ABDOMEN AND PELVIS: | | |No focal mass or FDG uptake identified within the abdomen or pelvis. Diffuse | | |diverticulosis. Other chronic findings. | | | | | |SOFT TISSUES AND OSSEOUS STRUCTURES: | | |No suspicious FDG uptake is identified. | | | | | + +--------- ------+ + + | Procedure Note | + + | Cristhian, Rad Results In - 07/10/2019 11:[address] SKULL BASE TO MID THIGH | | 07/10/2019 11:31 AMHISTORY: progress study, non-small cell lung cancer.COMPARISON: | | 07/03/2019PROTOCOL: The patient was initially injected with 10.5 mCi FDG F-18. After | | aone-hour delay, whole body PET images were acquired. Low dose nondiagnostic CTimages | | were obtained for attenuation correction and fusion. The patient'sfasting blood glucose | | level at the time of injection was 110 mg/dL.FINDINGS:HEAD AND NECK:Asymmetric FDG | | uptake within the right vocal fold and posterior right arytenoidcartilage which is new | | since prior examination (SUV max 6.2).CHEST:Spiculated nodule in the right lung apex | | measures 11 x 9 mm and demonstrates nosignificant FDG uptake (SUV max 0.8 compared to | | the background lung uptake is0.4 and mediastinal blood pool mean uptake of 1.9). Small | | left dependent pleuraleffusion. Redemonstration of the multiple areas of | | consolidative/patchygroundglass areas of airspace disease along the left | | hilum/mediastinum whichwere seen on the most recent CT with mild FDG uptake (SUV max | | 3.1). These areasare in the direct area of the expected radiation being and may | | representpostradiation scarring/fibrosis with component of residual neoplasm unable to | | beexcluded. Mild calcification are seen along the areas of pleural thickeningalong the | | left pleura adjacent mediastinum.ABDOMEN AND PELVIS:No focal mass or FDG uptake | | identified within the abdomen or pelvis. Diffusediverticulosis. Other chronic | | findings.SOFT TISSUES AND OSSEOUS STRUCTURES:No suspicious FDG uptake is | | identified.IMPRESSION: Spiculated nodule in the right lung apex measures 11 x 9 mm and | | demonstrates nosignificant FDG uptake (SUV max 0.8 compared to the background lung | | uptake is0.4 and mediastinal blood pool mean uptake of 1.9). Redemonstration of the | | multiple areas of consolidative/patchy groundglass areasof airspace disease along the | | left hilum/mediastinum which were seen on the mostrecent CT with mild FDG uptake (SUV | | max 3.1). These areas are in the direct areaof the expected radiation being and may | | represent postradiationscarring/fibrosis with component of residual neoplasm unable to | | be excluded.-Continued follow-up is recommended.Asymmetric FDG uptake within the right | | vocal fold and posterior right arytenoidcartilage which is new since prior | | examination.-A portion of this may be related to muscular uptake however given | | theasymmetry, a vocal fold neoplasm cannot be excluded.Dictated and Signed by: Pasha | | MD Meli Electronically signed: 07/10/2019 11:20 PM | | | |SOFT TISSUES AND OSSEOUS STRUCTURES: | |No suspicious FDG uptake is identified. | | | |IMPRESSION: | |Spiculated nodule in the right lung apex measures 11 x 9 mm and demonstrates no | |significant FDG uptake (SUV max 0.8 compared to the background lung uptake is | |0.4 and mediastinal blood pool mean uptake of 1.9). | | | |Redemonstration of the multiple areas of consolidative/patchy groundglass areas | |of airspace disease along the left hilum/mediastinum which were seen on the most | |recent CT with mild FDG uptake (SUV max 3.1). These areas are in the direct area | |of the expected radiation being and may represent postradiation | |scarring/fibrosis with component of residual neoplasm unable to be excluded. | |-Continued follow-up is recommended. | | | |Asymmetric FDG uptake within the right vocal fold and posterior right arytenoid | |cartilage which is new since prior examination. | |-A portion of this may be related to muscular uptake however given the | |asymmetry, a vocal fold neoplasm cannot be excluded. | | | |Dictated and Signed by: Pasha Garrsion MD | | Electronically signed: 07/10/2019 11:20 PM | + + + +---------+ + [...] | | + +--------+ + +------+------+ | fluorine-18 FDG injection 10.51 | Given | 07/10/20 | 10.51 | | | | millicurie 10.51 millicurie, | | 19 11:31 | millicur | | | | Intravenous, ONCE, [facility] 07/10/19 | | AM PST | ies | | | | at 1145, For 1 dose | | | | | | + +--------+ + +------+------+ +---+---+ | | | +---+---+ documented in this encounter"
--- OUTSIDE RECORDS SUMMARY | ~2020-03-30 | XMS | Encounter Summary ---
Demographics + + + | Address | [address] | | | [place] [address] | + + + | Home Phone [...] + + + | Author | [facility] | + + + | Organization | [facility] | + + + | Address | Unknown | + + + | Phone | Unavailable | + + + Support + + +---------+ + | Name | Relationship | Address | Phone | + + +---------+ + | Laura Allred | ECON | Unknown | | + + +---------+ + Care Team Providers + +------+ + | Care Broommaker Name | Role | Phone | + +------+ + PCP | Unavailable | + +------+ + Encounter Details +--------+ + + + + | Date | Type | Department | Care Team | Description | +--------+ + + + + | 10/29/ | Abstract | Pulmonary & | Service, Pulmonary | | | 2019 | | Critical Care | Consult [address] | | | | | Medicine at | [facility] | | | | | [facility] | Road [place], [place] | | | | | [address] | [address] | | | | | [facility] | | | | | | [facility], [address] [place] [address] | | | | | | [place], [place] | | | | | | [address] | | | | | | [phone] | | | +--------+ + + + [...] | | | | | [address] [place], | | | | | | [place] [address] | | | | | | [phone] | | | | | | | | +--------+---------+ + + + | 04/30/ | Office | Otolaryngology | Augutsine Nolan | | | 2020 | Visit | | MD Debbie [address] | | | | | | [address] | | | | | | [place] | | | | | | [address] | | | | | | [phone] | | | | | | | | +--------+---------+ + + + documented as of this encounter Visit Diagnoses Not on filedocumented in this encounter"
--- OUTSIDE RECORDS SUMMARY | ~2020-03-30 | XMS | Encounter Summary ---
Demographics + + + | Address | [address] | | | [place] [address] | + + + | Home Phone [...] Providers + +------+ + | Care Gold And Silver Assayer Name | Role | Phone | + [...] [address] | | | | | [facility] [place] [place] [facility] | [place], [place] | | | | | [facility], | [address] | | | | | [address] | [phone] | | | | | Floor [place], [place] | | | | | | [address] | | | | | | [phone] | | | +--------+ + + + [...] mg by mouth | | 0 | //20 | | | mg oral tablet | once daily. | | | 19 | | | extended release 24 | | | | | | | hr | | | | | | + + + +---------+ + + | cilostazol 50 mg | Take 1 tablet by | | 0 | / | | | oral tablet | mouth [...] | | | | | | [place] [address] | | | | | | [phone] | | | | | | | | +--------+---------+ + + + | 04/30/ | Office | Otolaryngology | Augustine Nolan | | | 2019 | Visit | | MD Debbie [address] | | | | | | [address] | | | | | | [place] | | | | | | [address] | | | | | | [phone] | | | | | | | [...] + + documented in this encounter Results X-RAY CHEST 2 VIEW (11/26/2018 3:06 PM PDT) + + | Specimen | [...] Nomi Burks MD Dictation initiated: Nomi Burks MD | | | 11/26/2018 3:33 PM | | + + [...] now presented. Final signature: Frieda Brumfield | Bhavik YBARRA 11/26/2018 3:56 PM Preliminary: Nomi Burks MD Dictation initiated: [address] | Bhavik Burks MD 11/26/2018 3:33 PM | | | |Bilateral [...]
--- OUTSIDE RECORDS SUMMARY | ~2020-03-30 | XMS | Encounter Summary ---
Demographics + + + | Address | [address] | | | [place] [address] | + + + | Home Phone [...] Author + + + | Author | [facility] | + + + | Organization | [facility] | + + + | Address | Unknown | + + + | Phone | Unavailable | + + + Support + + +---------+ + | Name | Relationship | Address | Phone | + + +---------+ + | Laura Allred | ECON | Unknown | | + + +---------+ + Care Team Providers + +------+ + | Care Water Plant Maintenance Mechanic Name | Role | Phone | + [...] 2019 - | Encounter | Unit at [facility] [address] | MD Debbie [address] [facility] | | | | | [address] Mailcode: | [address] | | | 10/10/ | | [facility] | [place], [place] | | | 2019 | | and [place], | [address] | | | | | [address] | [phone] | | | | | [place], [place] | | | | | | [address] | | | | | | [phone] | | | +--------+ + + + [...] Nolan MD - 10/10/2019 7:48 AM PST [facility] Discharge Summary Discharging Provider: Augustine Nolan MD [...] [facility] Otolaryngolo 10/31/2019 1:30 PM Augustine Nolan Otolaryngology Laryngology Services at [facility] [phone] Otolaryngolo docudoc in thi s encounter Discharge Instructions Discharge Instr - AVS First Page Augustine Nolan MD - 10/10/2019 7:47 AM Fredrick Nolan M.D. Facility Planner Laryngology and Head & Neck Surgery For after hour emergencies, call [phone] or [phone] Discharge Instr - Activity Augustine [...] daily | | | | | | lic/[id number] (HAIR, | with dinner. | | | [...] might be different f rom the original. Formerly [facility], [facility] & [place] [address] OVERNIGHT OUTPATIENT CARE UNIT PROVIDER NOTE: Attending [...] Date Anxiety COPD (chronic obstructive pulmonary disease) ([facility]) Dysphonia 12/04/2018 GERD (gastroesophageal reflux disease) Hypothyroidism [...] DNP, [facility] Outpatient Care Unit pager [phone] 10/10/2019 Bartolome Paredes PA-C - 10/09/2019 4:53 [...] | | | | | | [place] [address] | | | | | | [phone] | | | | | | | | +--------+---------+ + + + | 04/30/ | Office | Otolaryngology | Augustine Nolan | | 2019 | Visit | | MD Debbie [address] | | | | | | [address] | | | | | | [place] | | | | | | [address] | | | | | | [phone] | | | | | | | [...] NAME: | | | Sussy Allred MR#: [id number] : 1950 Date: | | | 10/09/2019 Attending Surgeon: | | | Augustine Nolan M.D. Layout Designer(s): | | | Dunia Couch MD; Rianna [...] block silastic thyroplasty implant. Drains: A 10 [place] round | | | drain. Complications: None [...] a 3 mm cutting dwight on the [employer] | | | drill. Once completed, the inner perichondrium was carefully | | | incised using a [place] blade. This was excised. Subperichondrial | | [...] muscles were then reapproximated. A small 10 [place] channel drain | | | was placed [...] | | | procedure. Augustine Nolan M.D. Facility Planner | | | Laryngology and Head & Neck Surgery | | + + + INTRAPROCEDURE IMAGING (10/09/2019 6:03 AM [facility]) + + | Specimen | + + [...] | | | | First dose on [facility] 10/09/19 at | | AM PST [...]
--- OUTSIDE RECORDS SUMMARY | ~2020-03-30 | XMS | Encounter Summary ---
Demographics + + + | Address | [address] | | | [place] [address] | + + + | Home Phone | | + + + | Preferred Language | Unknown | + + + | Marital Status | Single | + + + | Scientology Affiliation | Unknown | + + + | Race | Unknown | + + + | Ethnic Group | Unknown | + + + Author + + + | Author | [facility] | | | and Jakobana | + + + | Organization | [facility] | | [...] Team Providers + +------+ + | Care Community Health Consultant Name | Role | Phone | [...] | MED CTR EXTERNAL | MD Marli [address] | | | | | IMAGING [address] | [address]. | | | | | [address] | [place] [address] | | | | | [place] [address] | | | | | | [phone] | | | +--------+ + + + [...] | | | | | | [place] [address] | | | | | | [phone] | | | | | | | | +--------+ + + + + documented as of this encounter Procedures + +--------+ + + + | Procedure Name | Priori | Date/Time | Associated Diagnosis | Comments | | | ty | | | | + +--------+ + + + | XR CHEST 2 VIEWS | Routin | 12/13/2018 | | Results for this | | | e | 4:35 PM | | procedure are in the | | | | PDT | | results section. | + +--------+ + + + documented in this encounter Results XR Chest 2 Vws (12/13/2018 4:35 PM PDT) + + | Specimen | [...]
--- OUTSIDE RECORDS SUMMARY | ~2020-03-30 | XMS | Encounter Summary ---
Demographics + + + | Address | [address] | | | [place] [address] | + + + | Home Phone [...] Team Providers + +------+ + | Care Sales Facilitator Name | Role | Phone | + [...] + + + | Closed | | Otolaryngolog | Diagnoses | Nolan, | Ent | | | | y | Vocal cord | [place], | Laryngology | | | | | paralysis | [address] | [address] | | | | | Procedures | [address] | [address] | | | | | CONSULT TO | [facility] | [place] for | | | | | ENT GENERAL | Rd | Health and | | | | | THIS XAVI | [facility] [place] | Healing, | | | | | IS FOR | [address] | [address] | | | | | CONSULT/OV/S | Phone: | [place], [place] | | | | | COPE/STROBE | [phone] | [address] | | | | | ONLY: not | Fax: | Phone: | | | | | [place] | [phone] | [phone] | | | | | | | Fax: | | | | | | | [phone] | +--------+--------+ + + + + Encounter Details +--------+ + + + + | Date | Type | Department | Care Team | Description | +--------+ + + + + | 12/16/ | Electromechanical Assembly Technician | Cardiothoracic | Heladio Francisco, | Vocal cord paralysis | | 2019 | | Surgery at [facility] [address] | PA-C [address] | (Primary Dx) | | | | [address] | [address] | | | | | Physician's | [place], [place] | | | | | [address], 2nd floor | [address] | | | | | [place], [place] | [phone] | | | | | [address] | | | | | | [phone] | | | +--------+ + + + [...] | | 2019 | Visit | | [address] | | | | | | [place], | | | | | | [place] [address] | | | | | | [phone] | | | | | | | | +--------+---------+ + + + | 04/30/ | Office | Otolaryngology | Augustine Nolan | | | 2020 | Visit | | MD Debbie [address] [facility] | | | | | | [address] | | | | | | [place], [place] | | | | | | [address] | | | | | | [phone] | | | | | | | | +--------+---------+ + + + documented as of this encounter Visit Diagnoses + + | Diagnosis | + + | Vocal cord paralysis - Primary Paralysis of vocal cords or larynx, unspecified | + + documented in this encounter
--- OUTSIDE RECORDS SUMMARY | ~2020-03-30 | XMS | Encounter Summary ---
Demographics + + + | Address | [address] | | | [place] [address] | + + + | Home Phone | | + + + | Preferred Language | Unknown | + + + | Marital Status | Single | + + + | Restoration Affiliation | Unknown | + + + | Race | Unknown | + + + | Ethnic Group | Unknown | + + + Author + + + | Author | [facility] | | | and Jakobana | + + + | Organization | [facility] | | | and Jakobana | [...] Team Providers + +------+ + | Care Rn Research Name | Role | Phone | + [...] neoplasm of | Boubacar Daniels, | [address] [place] | | | | | unspecified | MD [address] | [place], | | | | | part of | [place] | [place] [address] | | | | | unspecified | [address] | Phone: | | | | | bronchus or | [place], | [phone] | | | | | lung (HCC) | [place] [address] | Fax: | | | | | Procedures | Phone: | [phone] | | | | | NM VITAMIN | [phone] | | | | | | B12 | Fax: | | | | | | INJECTION, | [phone] | | | | | | [address] [...] + + + + | 04/04/ | Hospital | [facility] | Adolfo, | 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 | | | | INFUSION [address] [place] | left lung (HCC) | | | | [place], | [address] [place], [place] | (Primary Dx) | | | | [place] [address] | [address] | | | | | [phone] | | | +--------+ + + + [...] + + + | Blood Pressure | 132/85 | 04/04/2019 9:54 AM | | | | | PDT | | + + + + + | Pulse | 88 | 04/04/2019 9:54 AM | | | | | PDT | | + + + + + | Temperature | 36.8 C (98.2 F) | 04/04/2019 9:54 AM | | | | | PDT | | + + + + + | Respiratory Rate | 16 | 04/04/2019 9:54 AM | | | | | PDT | | + + + + + | Oxygen Saturation | 99% | 04/04/2019 9:54 AM | | | | | PDT [...] encounter Progress Notes Jair Isbell RN - 04/04/2019 11:36 AM PDTDischarged with family and after visit sparks mmary ebbie Isbell RN - 04/04/2019 10:11 AM PDTEnergy level: low, tired today but happy to have compl eted XRT. 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 to picker and packer fentanyl patches yes terday and will start them this afternoon documented in this encounter Plan of Treatment [...] | | | | | [place] [address] | | | | | | [phone] | | | | | | | [...] | | | + +--------+ +--------+------+------+ | HYDROmorphone (DILAUDID) | Given | /16/ | 0.8 mg | | | | injection 0.4-0.8 mg 0.4-0.8 mg, | | 19 11:35 | | | | | Intravenous, EVERY 1 HOUR PRN, | | AM PDT | | | | | Pain, Starting Sun04/04/19 at | | | | | | | 0806 | | | | | | + +--------+ +--------+------+------+ +-------+ +--------+---+---+ | Given | 04/04/20 | 0.8 mg | | | | | 19 10:04 | | | | | | AM PDT | | | | +-------+ +--------+---+---+ +---+---+ | | | +---+---+ + +---------+ +---+-------+---+ | sodium chloride 0.9% (NS) | New Bag | 04/04/20 | | 500 | | | infusion at 500 mL/hr, | | 19 9:59 | | mL/hr | | | Intravenous, CONTINUOUS, Starting | | AM PDT | | | | | Sun04/04/19 at 0830, 1000 cc ns | | | | | | | iv over 2 hours., | | | | | | + +---------+ +---+-------+---+ +---+---+ | | | +---+---+ documented in this encounter"
--- OUTSIDE RECORDS SUMMARY | ~2020-03-30 | XMS | Encounter Summary ---
Demographics + + + | Address | [address] | | | [place] [address] | + + + | Home Phone [...] + + + | Author | [facility] | + + + | Organization | [facility] | + + + | Address | Unknown | + + + | Phone | Unavailable | + + + Support + + +---------+ + | Name | Relationship | Address | Phone | + + +---------+ + | Laura Allred | ECON | Unknown | | + + +---------+ + Care Team Providers + +------+ + | Care Hide Mill Man Name | Role | Phone | + [...] | | | | | Physician's | [place], [place] | | | | | [address], [address]nd floor | [address] | | | | | [place], [place] | [phone] | | | | | [address] | | | | | | [phone] | | | +--------+ + + + [...] | | | | | [address], | | | | | | [place] [address] | | | | | | [phone] | | | | | | | | +--------+---------+ + + + | 04/30/ | Office | Otolaryngology | Augustine Nolan | | | 2019 | Visit | | MD Debbie [address] [facility] | | | | | | [address] | | | | | | [place] | | | | | | [address] | | | | | | [phone] | | | | | | | | +--------+---------+ + + + documented as of this encounter Visit Diagnoses Not on filedocumented in this encounter
--- OUTSIDE RECORDS SUMMARY | ~2020-03-30 | XMS | Encounter Summary ---
Demographics + + + | Address | [address] | | | [place] [address] | + + + | Home Phone [...] + + + | Author | [facility] | + + + | Organization | [facility] | + + + | Address | Unknown | + + + | Phone | Unavailable | + + + Support + + +---------+ + | Name | Relationship | Address | Phone | + + +---------+ + | Laura Allred | ECON | Unknown | | + + +---------+ + Care Team Providers + +------+ + | Care Bander And Cellophaner Machine Helper Name | Role | Phone | + +------+ + | Lauryn Stuart | PCP | | + +------+ + Reason for Visit + + + | Reason | Comments | + + + | Medication | | | reconciliation | | + + + Encounter Details +--------+ + + + + | Date | Type | Department | Care Team | Description | +--------+ + + + + | 10/03/ | Telephone | Preoperative | Lety Melgoza, | Medication | | 2020 | | Medicine Clinic at | PharmD [address] | reconciliation | | | | [facility] | [address] | | | | | [address] | [place], [place] | | | | | [facility] | [address] | | | | | and [place], | | | | | | [address] | | | | | | [place], [place] | | | | | | [address] | | | | | | [phone] | | | +--------+ + + + [...] | 2020 | Visit | | [address] | | | | | | [place], | | | | | | [place] [address] | | | | | | [phone] | | | | | | | | +--------+---------+ + + + | 04/30/ | Office | Otolaryngology | Augustine Nolan | | | 2020 | Visit | | MD Debbie [address] | | | | | | [address] | | | | | | [place] | | | | | | [address] | | | | | | [phone] | | | | | | | | +--------+---------+ + + + documented as of this encounter Visit Diagnoses Not on filedocumented in this encounter
--- OUTSIDE RECORDS SUMMARY | ~2020-03-30 | XMS | Encounter Summary ---
Demographics + + + | Address | [address] | | | [place] [address] | + + + | Home Phone | | + + + | Preferred Language | Unknown | + + + | Marital Status | Single | + + + | Faith Affiliation | Unknown | + + + | Race | Unknown | + + + | Ethnic Group | Unknown | + + + Author + + + | Author | [facility] | | | and Jakobana | + + + | Organization | [facility] | [...] Team Providers + +------+ + | Care Noodle Catalyst Maker Name | Role | Phone | [...] + + | Closed | Specialty | Otolaryngolog | Diagnoses | [place], | An | | | Services | y | Vocal cord | Fiona Parsons, | Augustine Lewis MD | | | Required | | paralysis | [address] | [address] | | | | | | [address] | [facility] | | | | | | [place], | [address] [place], | | | | | | [place] [address] | [place] | | | | | | Phone: | [phone] | | | | | | [phone] | Phone: | | | | | | Fax: | [phone] | | | | | | [phone] | Fax: | | | | | | | [phone] | +--------+ + + + + + Diagnostic/Screening (Routine) +--------+--------+ + + + + | Status | Reason | Specialty | Diagnoses / | Referred By | Referred To | | | | | Procedures | Contact | Contact | +--------+--------+ + + + + | Closed | | Radiology | Diagnoses | [place], | [address] | | | | | Malignant | Fiona M, | [address] | | | | | neoplasm of | MD [address] | [place], | | | | | hilus of | [address] | [place] [address] | | | | | lung, | [place], | Phone: | | | | | unspecified | [place] [address] | [phone] | | | | | laterality | Phone: | Fax: | | | | | (HCC) | [phone] | [phone] | | | | | Procedures | Fax: | | | | | | CT Chest w | [phone] | | | | | | Contrast | | | +--------+--------+ + + + [...] | Radiation | Diagnoses | [facility] | [place], | | | | Oncology | G89.3 | Radiation | Fiona Parsons MD | | | | | (ICD-10-CM) | Oncology | [address] | | | | | - Neoplasm | Clinic [address] | | | | | related pain | [address] | [place], | | | | | (acute) | [place], | [place] [address] | | | | | (chronic) | [place] | Phone: | | | | | C34.12 | [address] | [phone] | | | | | (ICD-10-CM) | Phone: | Fax: | | | | | - Malignant | [phone] | [phone] | | | | | neoplasm of | Fax: | | | | | | upper lobe, | [phone] | | | | | | left | | | | | | | bronchus or | | | | | | | lung (HCC) | | | | | | | Procedures | | | | | | | [address] | | | + +--------+ + + + + Encounter Details +--------+ + + + + | Date | Type | Department | Care Team | Description | +--------+ + + + + | 08/25/ | Hospital | [facility] | Fiona Anne | Malignant neoplasm | | 2020 | Encounter | [facility] | MD Issa [address] | of hilus of lung, | | | | ONCOLOGY CLINIC [address] | [place], [place] | unspecified | | | | [address] [place] | [address] | laterality (HCC) | | | | [place] [address] | | (Primary Dx); 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[phone] | | cord paralysis | +--------+ + + + + Social [...] + + + | Blood Pressure | 122/65 | 08/25/2019 10:28 AM | | | | | PST | | + + + + + | Pulse | 104 | 08/25/2019 10:28 AM | | | | | PST | | + + + + + | Temperature | 36.3 C (97.3 F) | 08/25/2019 10:28 AM | | | | | PST | | + + + + + | Respiratory Rate | 16 | 08/25/2019 10:28 AM | | | | | PST | | + + + + + | Oxygen Saturation | 100% | 08/25/2019 10:28 AM | | | | | PST | | + + + + + | Inhaled Oxygen | - | - | | | Concentration | | | | + + + + + | Weight | 52.8 kg (116 lb 6.5 | 08/25/2019 10:28 AM | | | | oz) | PST | | + + + + + | Height | - | - | | + + + + + | Body Mass Index | 19.39 | 01/30/2019 2:26 PM | | | | | PDT | | + + + + + documented in this encounter Discharge Instructions Patient Instructions Allie Gallagher RN - 08/25/2019 10:30 AM PSTFollow-up with Dr. Camelia muir in December. Labs: none Imaging:CT chest Medication changes: Prednisone 40 mg to start, then taper as instructed Referrals: Dr. Nolan for vocal cord paralysis Follow-up with Dr. Mata as directed. Alternation of follow-up between providers an ticipated. documented in this encounter Medications at Time [...] | 0 | 08/08/20 | | | (ZOVIRAX) 400 MG | Daily. | | | 19 | [...] +---------+ + + | doxycycline | Take 1 capsule by | | 0 | 08/08/20 | | | (VIBRAMYCIN) 100 mg | mouth 2 times daily. | | | 19 | | | capsule | | | [...] patch onto | 10 | 0 | 08/14/20 | | | (DURAGESIC) 50 | the skin every 72 | patch | | 19 | 0 | | mcg/hrIndications: | hours. | | | | | | Malignant neoplasm | | | | | | | of hilus of lung, | | | | | | | unspecified | | | | | | | laterality (HCC) | | | | | | + + + +---------+ + + | | Take one to two | 180 | 0 | 08/14/20 | | | HYDROcodone-acetamin | tablets orally every | tablet | | 19 | 0 | | ophen (NORCO) | 6 hours as needed | | | | | | 7.5-325 mg per | for pain, maximum 7 | | | | | | tabletIndications: | tablets a day. | | | | | | Malignant [...] + + + +---------+ + + | ofloxacin | Place 1 drop into | | 0 | 08/07/20 | | | (OCUFLOX) 0.3% | the right eye 4 | | | 19 | 0 | | ophthalmic solution | times daily. | | | | | + + + +---------+ + + | prednisoLONE (PRED | Place 1 drop into | | 0 | 08/07/20 | | | FORTE) 1% | the right eye 4 | | | 19 | 0 | | ophthalmic | times daily. | | | | | | suspension | | | | | | + + + +---------+ + + | predniSONE | Take 4 tabs by mouth | 70 | 0 | 08/25/19 | | | (DELTASONE) 10 mg | daily for 1 week, | tablet | | 20 | 0 | | tablet | then take 3 tabs for | | | | | | | 1wk, then take 2 | | | | | | | tabs for 1 week, | | | | | | | then take 1 tab | | | | | | | daily for 1 wk., | | | | | | | then stop | | | | | + + + +---------+ + + documented as of this encounter Progress Notes Fiona Anne MD - 08/25/2019 10:30 AM PST Radiation Oncology Follow-up Chief Complaint/ICD10 ICD-10-CM ICD-9-CM 1. Malignant neoplasm of hilus of lung, unspecified laterality (HCC) C34.00 162.2 History of Present Illness: Lung cancer (HCC) 12/04/2018 Initial Diagnosis - Presented to her PCP Lauryn Stuart PA-C in early September with supraclavicular misha ng. - 10/09/18 Chest X-ray at [facility]: Abnormal - 10/11/18, CT Chest @ [facility]: Bilateral upper lobe spiculated masses. Left-sided mass abuts the major fissure and measures up to 2.4 cm with central necrosis. Right-sided measures up to 1.7 cm with a halo haziness, and tethers to the pleura. AP window adenopathy measuring u p to 2.1 cm, heterogeneous with mild enhancement. Suprahilar 1.5 cm necrotic lymph node. - 10/23/2018 PET/CT @ [facility]: Left upper lobe mass measures 2.2 cm [...] me tastatic disease. - 11/26/18 [facility]: No evidence of metastatic disease. 12/04/2018 Surgery Surgeon: Manoj Kumar MD @ [facility] - EBUS bronchoscopy with biopsy of level [...] 11 L. 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 -Postoperative course notable for left vocal cord paralysis and postthoracotomy pain syndro me. 02/05/2019 - 04/10/2019 Chemotherapy PEMETREXED + CARBOPLATIN Q 21D X 4 CYCLES FOR NSCLC - Initial cycle chemotherapy alone, then concurrent chemoradiotherapy. 02/27/2019 - 04/04/2019 Radiation Therapy 50 Gy in 25 fractions to mediastinum Sussy Allred completed radiation 4 months ago, she returns for routine follow-up. She reports some improvement in her energy since completion of treatment. Denies new cough. Re ports shortness of breath with activity, which is worse than before. Reports ongoing left-s ided, postthoracotomy pain. Continues to manage the pain with fentanyl and Holcomb, and manag ement per Dr. Mata. She is also experiencing chronic headaches, no worsening and no new neurologic symptoms. In June she was started on a prednisone taper and feels that this helped initially but with tapering down the dose shortness of breath return. She also continues to have difficul ty with slight restricted breathing and hoarse voice from the vocal cord paralysis. She tigre ns to follow-up with Dr. Nolan at [facility] for management. Her weight is stable and she is not experiencing any new areas of pain. 07/10/19- PET/CT demonstrates posttreatment changes in the mediastinum, left hilum and surr ounding lung parenchyma with consolidation and mild metabolic activity, SUV of 3.1. Stable right apical nodule without any significant metabolic activity. No evidence of distant meta static disease. Review of systems: Constitutional: Reports frequent hot flashes, describes as an internal heat feels like havi ng a fever that comes and goes. Denies fatigue. Denies high fevers, shaking chills, anorexi a, nausea, vomiting, weight loss, or night sweats. Appetite without changes. Ear, Nose, Mouth, Throat: Denies odynophagia, dysphagia, or tinnitus. Cardiovascular: Reports chest pain to the left side that is constant. Reports shortness of breath with any activity. Denies palpitations or orthopnea. Respiratory: Denies cough, hemoptysis, or sputum production. Gastrointestinal: Denies abdominal pain, constipation, diarrhea, melena, or bright red bloo d per rectum. Genitourinary: Denies hematuria or dysuria. Musculoskeletal: Denies joint pain or tenderness. Neurologic: Reports constant headaches, this is chronic. Denies visual changes, or numbnes s/tingling of the extremities. Endocrine: Denies peripheral edema or heat/cold intolerance. Hematologic: Reports easy bruising that last a long time. Denies spontaneous bruising or b leeding. Integumentary: Denies rash, wounds or other skin concerns. Note: Here for 1 month follow up with Dr. Anne. Patient reports steroid help breathing a t first, but as she started tapering her shortness of breath returned. My chart: Declined. Pain assessment: Location: left chest Pain Level: PAIN PROG PAIN LEVEL: 6 Pain Quality: Sharp Current pain regimen: fentanyl 50 mcg with Holcomb for breakthrough Current Outpatient Medications Medication Sig Dispense Refill acetaminophen (TYLENOL) 325 mg tablet Take 325-650 mg by mouth every 6 hours as needed. ALPRAZolam (XANAX) 0.5 mg tablet Take 1 tablet by mouth nightly as needed (taking every night.). 90 tablet 2 Amino Acids (AMINO ACID PO) Take 1 Scoop by mouth Daily. buPROPion (WELLBUTRIN XL) 300 mg 24 hr tablet Take 300 mg by mouth every morning. cilostazol (PLETAL) 50 mg tablet Take 50 mg by mouth Daily. cyanocobalamin (VITAMIN B-12) 1000 MCG tablet Take 500 mcg by mouth Daily. doxycycline (VIBRAMYCIN) 100 mg capsule Take 1 capsule by mouth 2 times daily. estradiol (ESTRACE) 2 MG tablet Take 2 mg by mouth Daily. fentaNYL (DURAGESIC) 50 mcg/hr Place 1 patch onto the skin every 72 hours. 10 patch 0 HYDROcodone-acetaminophen (NORCO) 7.5-325 mg per tablet Take one to two tablets orally every 6 hours as needed for pain, maximum 7 tablets a day. 180 tablet 0 lansoprazole (PREVACID) [address] capsule Take 30 mg by mouth Daily. levothyroxine (SYNTHROID) 50 mcg tablet Take 50 mcg by mouth Daily. Misc Natural Products (HIMALAYAN GOJI PO) Take 2 oz by mouth Daily. non-formulary medication Take 3 oz by mouth Daily. [place] supplement ofloxacin (OCUFLOX) 0.3% ophthalmic solution Place 1 drop into the right eye 4 times da johnson. ondansetron (ZOFRAN ODT) 8 mg disintegrating tablet One tablet twice a day for two days after chemotherapy to block nausea 40 tablet 1 prednisoLONE (PRED FORTE) 1% ophthalmic suspension Place 1 drop into the right eye 4 ti mes daily. No current facility-administered medications for this encounter. Allergies Allergen Reactions Ketorolac Anaphylaxis Adhesive & Tape Dermatitis Latex Rash Intolerance No active intolerances/contraindications Vitals: 08/25/19 1028 BP: 122/65 Pulse: 104 Resp: 16 Temp: 36.3 C (97.3 F) PainSc: 6 Wt Readings from Last 3 Encounters: 08/25/19 52.8 kg (116 lb 6.5 oz) 07/15/19 52.9 kg (116 lb 10 oz) 07/08/19 51.6 kg (113 lb 12.1 oz) Physical Exam: General: Healthy appearing thin woman in no acute medical distress. KPS: 80 HEENT: Pupils equal, round and reactive to light. No conjunctival icterus or injection. EOM I. Oral, moist mucus membranes. Lymphatic: No cervical, supraclavicular or axillary lymphadenopathy. Cardiovascular: Regular rate and rhythm, no murmur. Pulmonary: Breath sounds heard throughout, no adventitial sounds. Mild increased work of b reathing at rest. Extremities: Upper and lower extremities warm and well perfused with no upper or lower extr emity edema. Neurologic: Alert, oriented and appropriated in conversation. CN II-IX grossly intact. Moves all 4 extremities normally with normal gait. Psychiatric: Appropriate. Labs: No recent results. Imaging: Imaging studies were directly visualized and my assessment of pertinent finding reviewed in history of present illness. Radiologist report: PET CT SKULL BASE TO MID THIGH 07/10/2019 11:31 AM IMPRESSION: Spiculated nodule in the right lung apex measures 11 x 9 mm and demonstrates no significant FDG uptake (SUV max 0.8 compared to the background lung uptake is 0.4 and mediastinal blood pool mean uptake of 1.9). Redemonstration of the multiple areas of consolidative/patchy groundglass areas of airspace disease along the left hilum/mediastinum which were seen on the most recent CT with mild FDG uptake (SUV max 3.1). These areas are in the direct area of the expected radiation being and may represent postradiation scarring/fibrosis with component of residual neoplasm unable to be excluded. -Continued follow-up is recommended. Asymmetric FDG uptake within the right vocal fold and posterior right arytenoid cartilage which is new since prior examination. -A portion of this may be related to muscular uptake however given the asymmetry, a vocal fold neoplasm cannot be excluded. Dictated and Signed by: Pasha Garrison MD Electronically signed: 07/10/2019 11:20 PM Assessment: ICD-10-CM ICD-9-CM 1. Malignant neoplasm of hilus of lung, unspecified laterality (HCC) C34.00 162.2 Overall Katharina is making a favorable recovery from treatment. She continues to experience sh ortness of breath, unclear if related to radiation pneumonitis versus vocal cord paralysis. She did feel a bit better on higher doses of prednisone, so I have prescribed additional pr ednisone starting at 40 mg daily and tapering down 10 mg/week. She is also instructed to fo llow-up with Dr. Nolan for management of the vocal cord paralysis. Dr. Mata cont inues to manage medication for postthoracotomy pain. She is encouraged to increase activity and resume normal life activities as much as possible. She is working full-time and expres ses some tiredness related to this. Clinical history and exam do not demonstrate any indica tion for disease activity. We will continue close surveillance with chest CT at 6-month int ervals, next due in December. Plan: Follow-up with Dr. Anne in December. Labs: none Imaging:CT chest, December 2019. Medication changes: Prednisone 40 mg to start, then taper as instructed Referrals: Dr. Nolan for vocal cord paralysis Follow-up with Dr. Mata as directed. Alternation of follow-up between providers an ticipated. Orders Placed This Encounter Procedures CT Chest w Contrast ENT, External - AMB Referral Thank you for allowing me to participate in the care of Sussy Allred. If you should hav e any questions regarding this evaluation, please do not hesitate to contact me. Fiona Anne M.D. Radiation Oncologist Department of Radiation Oncology [facility] Office: [phone] signed by Fiona Anne MD at 12/27/2019 12:01 PM P DTdocumented in this encounter Plan of Treatment +--------+ [...] | | | | | [place] [address] | | | | | | [phone] | | | | | | | | +--------+ + + + + + + +--------+ + + | Name | Type | Priori | Associated Diagnoses | Order Schedule | | | | ty | | | + + +--------+ + + | ENT, External - AMB | Outpatient | Routin | Vocal cord | Ordered: 08/25/2019 | | Referral | Referral | e | paralysis | | + + +--------+ + + documented as of this encounter Results CT Chest w Contrast (12/22/2019 10:52 AM PDT) + + | Specimen | + + | | + + + + + | Impressions | Performed At | + + + | Bilateral perihilar post therapy changes with overall decreased | [facility] | | size of the previous identified masslike consolidations at the mid to | | | upper left lower lobe and medial right lung. No evidence to suggest | | | an enlarging mass in these areas. Enlarging bilateral apical | | | nodules most compatible with progressive metastatic disease. | | | Interval decreased size of an enlarged left hilar lymph node. No other | | | mediastinal or hilar lymphadenopathy. Slight interval increased | | | size of the small left pleural effusion. Dictated and Signed by: | | | Bal Tompkins MD Electronically signed: 12/24/2019 12:09 PM | | + + + + + + | Narrative | Performed At | + + + | TECHNIQUE: After administration of 75 mL Omnipaque 350 | [facility] | | intravenously, axial CT imaging was obtained through the chest with | | | coronal and sagittal reformats. At least one of the following CT | | | dose optimization techniques were used: Automated exposure control; | | | Adjustment of mA and/or kV according to patient size; Use of | | | iterative reconstruction technique. CLINICAL INFORMATION: | | | Non-small cell lung cancer, non-metastatic, assess treatment response | | | COMPARISON: CT dated 07/03/2019 and PET/CT 07/10/2019. | | | FINDINGS: BONES: No acute osseous abnormality. No osteoblastic or | | | osteolytic lesion. CHEST: Chest Wall: No supraclavicular or | | | axillary lymphadenopathy. Mediastinum and ortiz: Decreased size of | | | superior left hilar lymph node enlargement measuring up to 15 mm in | | | short axis, previously 18 mm. Heart and pericardium: Heart size is | | | normal. No pericardial effusion. Vessels: Normal caliber of the | | | thoracic aorta. Lungs/pleura: Centrilobular emphysematous | | | changes. Left upper lobectomy changes. Associated elevation of the | | | left hemidiaphragm. Slight interval increased size of a small left | | | pleural effusion. Interval worsening perihilar bronchiectasis with | | | surrounding post therapy fibrotic changes. The previous identified | | | areas of masslike consolidation at the mid to superior left lower | | | lobe are indistinguishable from the post therapy changes; however, | | | the areas have overall decreased in size. There is no evidence of an | | | enlarging mass in these areas. Focal right perihilar bronchiectasis | | | and post therapy fibrosis. The previously identified medial right | | | lower lobe focal masslike consolidation has significantly decreased | | | in size. Slight increased size of the right apical nodule measuring | | | 14 x 10 mm, previously 12 x 9 mm, series 4 image 25. Mild increased | | | size of a subpleural left apical nodule measuring 12 x 6 mm, | | | previously 8 x 3 mm, series 4 image 26. Similar biapical scarring, | | | right greater than left. UPPER ABDOMEN: Unremarkable. No adrenal | | | nodule identified. | | + + + + + | Procedure Note | + + | Cristhian, Rad Results In - 12/24/2019 12:12 PM PDT | | TECHNIQUE: After administration of 75 mL Omnipaque 350 intravenously, axial CT | | imaging was obtained through the chest with coronal and sagittal reformats. | | | | At least one of the following CT dose optimization techniques were | | used: Automated exposure control; Adjustment of mA and/or kV according | | to patient size; Use of iterative reconstruction technique. | | | | CLINICAL INFORMATION: Non-small cell lung cancer, non-metastatic, assess | | treatment response | | | | COMPARISON: CT dated 07/03/2019 and PET/CT 07/10/2019. | | | | FINDINGS: | | | | BONES: No acute osseous abnormality. No osteoblastic or osteolytic lesion. | | | | CHEST: | | Chest Wall: No supraclavicular or axillary lymphadenopathy. | | | | Mediastinum and ortiz: Decreased size of superior left hilar lymph node | | enlargement measuring up to 15 mm in short axis, previously 18 mm. | | Heart and pericardium: Heart size is normal. No pericardial effusion. | | Vessels: Normal caliber of the thoracic aorta. | | | | Lungs/pleura: Centrilobular emphysematous changes. Left upper lobectomy changes. | | Associated elevation of the left hemidiaphragm. Slight interval increased size | | of a small left pleural effusion. Interval worsening perihilar bronchiectasis | | with surrounding post therapy fibrotic changes. The previous identified areas of | | masslike consolidation at the mid to superior left lower lobe are | | indistinguishable from the post therapy changes; however, the areas have overall | | decreased in size. There is no evidence of an enlarging mass in these areas. | | Focal right perihilar bronchiectasis and post therapy fibrosis. The previously | | identified medial right lower lobe focal masslike consolidation has | | significantly decreased in size. Slight increased size of the right apical | | nodule measuring 14 x 10 mm, previously 12 x 9 mm, series 4 image 25. Mild | | increased size of a subpleural left apical nodule measuring 12 x 6 mm, | | previously 8 x 3 mm, series 4 image 26. Similar biapical scarring, right greater | | than left. | | | | UPPER ABDOMEN: Unremarkable. No adrenal nodule identified. | | | | | | IMPRESSION: | | | | Bilateral perihilar post therapy changes with overall decreased size of the | | previous identified masslike consolidations at the mid to upper left lower lobe | | and medial right lung. No evidence to suggest an enlarging mass in these areas. | | | | Enlarging bilateral apical nodules most compatible with progressive metastatic | | disease. | | | | Interval decreased size of an enlarged left hilar lymph node. No other | | mediastinal or hilar lymphadenopathy. | | | | Slight interval increased size of the small left pleural effusion. | | | | Dictated and Signed by: Bal Tompkins MD | | Electronically signed: 12/24/2019 12:09 PM | + + + +---------+ + [...] laterality (HCC) - Primary | + + | Vocal cord paralysis Paralysis of vocal cords or larynx, unspecified | + + documented in this encounter"
--- OUTSIDE RECORDS SUMMARY | ~2020-03-30 | XMS | Encounter Summary ---
Demographics + + + | Address | [address] | | | [place] [address] | + + + | Home Phone | | + + + | Preferred Language | Unknown | + + + | Marital Status | Single | + + + | Mu-Ism Affiliation | Unknown | + + + | Race | Unknown | + + + | Ethnic Group | Unknown | + + + Author + + + | Author | [facility] | | | and Jakobana | + + + | Organization | [facility] | | | and Jakobana [...] Providers + +------+ + | Care Sales Team Leader Name | Role | Phone | + +------+ + | Lauryn Stuart PA-C | PCP | | + +------+ + Reason for Visit + +--------+ + | Reason | Onset | Comments | | | Date | | + +--------+ + | Patient Concerns | 06/09/ | | | | 2018 | | + +--------+ + Encounter Details +--------+ + + + + | Date | Type | Department | Care Team | Description | +--------+ + + + + | 06/09/ | Telephone | [facility] | Adolfo, | Patient Concerns | | 2019 | | [facility] | Boubacar Daniels MD [address] | | | | | [facility] [address] | [address] [facility] | | | | | [address] [place] | [address] [place], [place] | | | | | [place] [address] | [id number] | | | | | [phone] | | | +--------+ + + + [...] this encounter Miscellaneous Notes Telephone Encounter - Lizzie Botello RN - 06/11/2019 9:10 AM PDTJudy got our message a nd her [place] sniff test was performed this morning. She stopped by the cancer center and picked up her RX for hydrocodone. 9:1 2 AM PDTTelephone Encounter - Adelita Elizalde RN - 06/10/2019 4:25 PM PDTUnable to re ach patinet. Daughter Laura notified of importance of informing patient of [place] sniff test eusebio orrow am and that Hydrocodone rx ready for pick up man. She voices understanding. elephone Encounter - Andrés Botello RN - 06/10/2019 4:09 PM PDTCalled Katharina again with no answer. I spoke with Laura, her daughter, who believes Katharina is working until 6 tonight, she does not have a work number to try. She states she will text Katharina to see if she can return our call. Electronically sign ed by Lizzie Botello RN at 06/10/2019 4:11 PM PDTTelephone Encounter - Lizzie Botello RN - 06/10/2019 2:52 PM PDTVerified with imaging Katharina is scheduled for [place] sniff test on . They did not have record that her appointment had been confirmed. I returned call t o Katharina to let her know per imaging, her [place] sniff test is scheduled tomorrow, 06/11/19 at 090 0. They would like her to show up at 0845. I was also calling to let Katharina know her requested refill for hydrocodone is ready. Katharina did not answer, so a voicemail was left to return my call. elephone En counter - Adolfo, Boubacar Daniels MD - 06/10/2019 2:29 PM PDTI ordered a [place] sniff test three weeks ago. I still see it in the orders cue. Does any one know why it hasn't been scheduled yet? Please advise. prescription for hydrocodone approved. Please notify patient. Electronically signed by: Boubacar Mata MD 06/10/2019 14:30 elephone [facility] Rosmery, Lizzie Murray RN - 06/09/2019 3:00 [address] PDTDr. Mata, please advise regardkanchan Posadas's question about an X ray she thought was to be ordered. Katharina is requesting a refill of her hydrocodone, refill queued up for your review and approv al if appropriate. e lephone Encounter - Rachel Ervin - 06/09/2019 12:58 PM Lopez called to FU on an xray erika t Dr. Mata said he was going to order, hasn't heard anything about it since. Also, Jocelyn blake needs a refill for her hydrocodone 7.5 -325. Please return call to advise, thank you.Elect ronically signed by Rachel Ervin at 06/09/2019 1:01 PM PDTdocumented in this encounter Plan of [...] [address] | | | | | | [place] [address] | | | | | | [phone] | | | | | | | | +--------+ + + + + documented as of this encounter Visit Diagnoses + + | Diagnosis | + + | Malignant neoplasm of hilus of lung, unspecified laterality (HCC) - Primary | + + documented in this encounter"
--- OUTSIDE RECORDS SUMMARY | ~2020-03-30 | XMS | Encounter Summary ---
Demographics + + + | Address | [address] | | | [place] [address] | + + + | Home Phone [...] Author + + + | Author | [facility] | + + + | Organization | [facility] | + + + | Address | Unknown | + + + | Phone | Unavailable | + + + Support + + +---------+ + | Name | Relationship | Address | Phone | + + +---------+ + | Laura Allred | ECON | Unknown | | + + +---------+ + Care Team Providers + +------+ + | Care Field Contact Person Name | Role | Phone | + [...] | | Neoplasm | CARLO Allen | [facility] [address] | | | | | Procedures | [address] | | | | | STRESS | [address] | [place] | | | | | DOBUTAMINE | [facility] [place] | [place] | | | | | ECHOCARDIOGR | [address] | Building, 2nd | | | | | AM, ADULT | Phone: | floor | | | | | | [phone] | [facility] [place] | | | | | | Fax: | [address] | | | | | | [phone] | Phone: | | | | | | | [phone] | +--------+--------+ + + + + Encounter Details +--------+ + + + + | Date | Type | Department | Care Team | Description | +--------+ + + + + | 11/26/ | Hospital | Cardiac | | | | 2019 | Encounter | Non-Invasive Testing | | | | | | at [facility] [address] | | | | | | [facility] | [facility], | | | | | | [address] | | | | | | [place], [place] | | | | | | [address] | | | | | | [phone] | | | +--------+ + + + [...] kg (129 lb) | 11/26/2018 11:22 AM | | | | | PDT | | + + + + + | Height | 152.4 cm (5') | 11/26/2018 11:22 AM | | | | | PDT | | + + + + + | Body Mass Index | 25.19 | 11/26/2018 11:22 AM | | | [...] | 0 | 03/05/20 | | | oral tablet | once [...] | | | | | | | release(/EC) | | | | | | + [...] documented as of this encounter Progress Notes Cara Torres, FARIDA - 11/26/2018 12:59 PM PDTDobutamine stress echocardiogram completed, report to follow. Patient presented with left neck and chest pain, rated at its worst 3/10, which worsened to 4-5/10 during the test and returned to baseline after esmolol was adminis tered. Echo images and EKG tracings reviewed with Dr. Hannah Mccormick, who determined the rosalia card was safe to be released from the [...] and pain level returned to baseline. Tania Parekh - 04/2019 12:46 PM PDTDobutamine stress echocardiogram completed. Final report to follow. documented in this encounter Plan of Treatment +--------+---------+ + + + | Date | Type | Specialty | Care Team | Description | +--------+---------+ + + + | 04/30/ | Office | Speech Therapy | Barbra Ramirez SLP | | | 2019 | Visit | | [address] | | | | | | [place] [facility] | | | | | | [place] [address] | | | | | | [phone] | | | | | | | | +--------+---------+ + + + | 04/30/ | Office | Otolaryngology | Augustine Nolan | | | 2019 | Visit | | MD Debbie [address] | | | | | | [address] | | | | | | [place], [place] | | | | | | [address] | | | | | | [phone] | | | | | | | [...] + + documented in this encounter Results ECG TRACING FOR STRESS ECHOCARDIOGRAM (11/26/2018 11:15 AM PDT) + + + + + + | Component | Value | Ref Range | Performed | Pathologist | | | | | At | Signature | + + + + + + | CLARIFIC[facility]I | This report contains | | [facility] | | | ON | Stress ECG Tracings, | | OF | | | | Observations and | | CARDIOLOGY | | | | Preliminary Results. | | | | | | For Test Report and | | | | | | Interpretation: Go to | | | | | | the Stress | | | | | | Echocardiogram Order, | | | | | | located under the CARDS | | | | | | tab in EPIC. | | | | + + + + + + | INTERP | . | | [facility] | | | | | | OF | | | | | | CARDIOLOGY | | + + + + + + | CONCLUSION | . | | [facility] | | | [...] + + + + + | [facility] | [address] | [place], [place] | | | CARDIOLOGY | [address] | [address] | | + + + + + [...] atropine injection 0.3-0.4 mg | Given | 11/27/19 | 0.3 mg | | | | 0.3-0.4 mg, intravenous, | | 19 11:59 | | | | | INTRAPROCEDURE PRN, Starting Tue | | AM PDT | | | | | 11/26/18 at 1123, Until 11/26/18 | | | | | | | at 1322, per dobutamine stress | | | | | | | echo protocol | | | | | | + +--------+ +--------+------+------+ +---+---+ | | | +---+---+ + + + + +-------+---+ | DOBUTamine (DOBUTREX) 500 | Rate/Dos | 11/27/19 | 20 | 35.1 | | | mg/250 mL (2 mg/mL) IV infusion | e Change | 19 11:58 | mcg/kg/m | mL/hr | | | (RTU) 5-50 mcg/kg/min | | AM PDT | in | [...] + + +--------+---+ | Rate/Dose Change | 11/27/19 | 10 | 17.55 | | | | 19 11:55 | mcg/kg/m | mL/hr | | | | AM PDT | in | | | + + + +--------+---+ | New Bag | 11/27/19 | 5 | 8.78 | | | | 19 11:52 | mcg/kg/m | mL/hr | | | | AM PDT | in | | | + + + +--------+---+ +---+---+ | | | +---+---+ + +-------+ +-------+---+---+ | esmolol (BREVIBLOC) injection | Given | 11/27/19 | 20 mg | | | | 10-30 mg 10-30 mg, intravenous, | | 19 12:02 | | | | | INTRAPROCEDURE PRN, Starting Tue | | PM PDT | | | | | 11/26/18 at 1123, Until 11/26/18 | | | | | | | at 1322, per dobutamine stress | | | | | | | echo protocol | | | | | | + +-------+ +-------+---+---+ +---+---+ | | | +---+---+ + +-------+ +--------+---+---+ | perflutren lipid microspheres | Given | 11/27/19 | 1.5 mL | | | | (DEFINITY) injection 1.5 mL 1.5 | | 19 11:50 | | | | | mL, intravenous, INTRAPROCEDURE | | AM PDT | | | | | PRN, Starting 11/26/18 at 1123, | | | | | | | Until 11/26/18 at 1322, image | | | | | | | acquisition | | | | | | + +-------+ +--------+---+---+ +---+---+ | | | +---+---+ documented in this encounter
--- OUTSIDE RECORDS SUMMARY | ~2020-03-30 | XMS | Encounter Summary ---
Demographics + + + | Address | [address] | | | [place] [address] | + + + | Home Phone [...] Author + + + | Author | [facility] | + + + | Organization | [facility] | + + + | Address | Unknown | + + + | Phone | Unavailable | + + + Support + + +---------+ + | Name | Relationship | Address | Phone | + + +---------+ + | Laura Allred | ECON | Unknown | | + + +---------+ + Care Team Providers + +------+ + | Care Darkroom Technician Name | Role | Phone | + +------+ + | Lauryn Stuart | PCP | | + +------+ + Reason for Visit + + + | Reason | Comments | + + + | New Patient Visit | | + + + PROC - Dept/Practice Procedure (Routine) +--------+--------+ + + + + | Status | Reason | Specialty | Diagnoses / | Referred By | Referred To | | | | | Procedures | Contact | Contact | +--------+--------+ + + + + | Closed | | Otolaryngolog | | Non-[facility] | An, | | | | y | | Epic Dept | Augustine Lewis MD | | | | | | | [address] | | | | | | | [address] | | | | | | | [place], | | | | | | | [place] | | | | | | | [address] | | | | | | | Phone: | | | | | | | [phone] | | | | | | | Fax: | | | | | | | [phone] | +--------+--------+ + + + + Encounter Details +--------+---------+ + + + | Date | Type | Department | Care Team | Description | +--------+---------+ + + + | 01/24/ | Office | Otolaryngology | Augustine Nolan | Paralysis of left | | 2019 | Visit | Laryngology Services | MD Debbie [address] | vocal fold (Primary | | | | at [facility] [address] | Dx); Dysphonia; | | | | [facility] | [place], [place] | Pharyngeal | | | | [facility], | [address] | dysphagia; Non-small | | | | Building [address] | [phone] | cell carcinoma of | | | | [place], [place] | | lung (HCC) | | | | [address] | | | | | | [phone] | | | +--------+---------+ + + + [...] + + + | Blood Pressure | 132/79 | 01/24/2019 9:03 AM | | | | | PDT | | + + + + + | Pulse | 69 | 01/24/2019 9:03 AM | | | | | PDT [...] + + + + | Weight | 55.7 kg (122 lb 11.2 | 01/24/2019 9:03 AM | | | | oz) | PDT | | + + + + + | Height | 162.6 cm (5' 4") | 01/24/2019 9:03 AM | | | | | PDT | | + + + + + | Body Mass Index | 21.06 | 01/24/2019 9:03 AM | | | | | PDT [...] encounter Progress Notes Augustine Nolan MD - 01/24/2019 9:30 AM PDT PATIENT: Sussy Allred MR#: [id number] : 1950 REQUESTING PROVIDER: Manoj Kmuar MD [address] [place] [address] PRIMARY CARE PROVIDER: MALLIKA Toledo CLINIC: [facility] CHIEF COMPLAINT: Chief Complaint Patient presents with New Patient Visit HPI: Sussy Allred is a 69 y.o. female who presents to the [facility] with difficulty phonating. She has noted sudden difficulty with hoarsene ss for the past 6 weeks. She believes that the problem was first noticed immediately follow ing left thoracotomy for non-small cell carcinoma of the lung. 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 She has returned home an d is planning to begin chemotherapy next week in [place] or [place]. She is not sure if she will be proceeding with radiation therapy but thinks she may be. She remains quite t roubled by her voice, but her swallowing has improved some. Dr. Kumar has requested a c onsultation from the [facility] for evaluation of Ms. Kevin gaitan's left vocal fold paralysis, dysphonia, and dysphagia. She now does not note periods of normal voicing, but admits her but voice is better in the morning. Specific difficulties with voicing include: poor vocal quality, fluctuating voice quality, weak voice, effortful voicing, inability to yell, difficulty being heard in noise, voice dropping to a whisper, trouble voicing on the telephone, breaks in pitch, loss of high range, loss of low range, lowered pitch and elevated pitch. She does note anterior neck d iscomfort or pain with voicing. She does note globus sensation. She does not note pain wi th swallowing. She does note specific difficulties with swallowing. She does cough on liq uids occasionally still, but is doing much better with solids. She she is particularly care ful with clear liquids. She denies coughing and sputtering with swallowing, trouble breathi ng while swallowing, choking or recent aspiration-associated pneumonia. She denies noisy br eathing. She does still notice shortness of breath and shallow breathing. Her breathing is worse with ambulation. She denies problems with productive cough or hemoptysis. She has n ot noted any otalgia. She has not had any fevers, chills or sweats. She does not experience classic heartburn symptoms often. She does not use antacids. She does not have a known hiatal hernia. She has not had a trial of reflux therapy. 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 Her vocal demands are primarily those of conversati onal speech, wireless telephone use, teaching, frequent presentations, heavy telephone use a nd coaching. She reports that she is talkative. She notes that she occasionally abuses her voice with yelling or shouting. VOCAL HYGIENE: Ms. Allred drinks about 32 oz of noncaffeinated fluid daily, 0-16 oz of caff einated beverages. She is not currently smoking. She notes that she is frequently clearing her throat. PREVIOUS SURGERY: She has not had previous surgery on her esophagus. She has not had prev ious surgery on her larynx. She has had recent intubation. 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 Allred reports that she has quit smoking. Her smoking use included cig arettes. She has never used smokeless tobacco. She reports that she drinks alcohol. She repo rts that she does not use drugs. Social History Social History Narrative Ms. Allred is partnered. 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 She lives in [place], [place] She does have children. She does not have supportive friends or family members in the [facility]. FAMILY HX: Family History Problem Relation No Known Problems Mother No Known Problems Father Cancer Neg Hx Movement Disorder Neg Hx Thyroid disease Neg Hx ALLERGIES: Allergies Allergen Reactions Ketorolac Anaphylaxis Latex Rash MEDICATIONS: Current Outpatient Medications Medication Sig acetaminophen 325 mg oral tablet Take 1-2 tablets by mouth every six hours as needed. I ndications: fever, Pain albuterol 90 mcg/actuation inhalation HFA aerosol inhaler Inhale by mouth as needed. ALPRAZolam 0.25 mg oral tablet Take by mouth as needed. buPROPion XL 300 mg oral tablet extended release 24 hr Take 1 tablet by mouth once lala y. cilostazol 50 mg oral tablet Take 1 tablet by mouth once daily. cyanocobalamin 1,000 mcg oral tablet Take 1,000 mcg by mouth once daily. doxycycline hyclate 100 mg oral capsule Take 100 mg by mouth two times daily. Indicati ons: skin infection estradiol 2 mg oral tablet Take 2 mg by mouth once daily. Lactobacillus acidophilus (PROBIOTIC ACIDOPHILUS ORAL) Take 1 capsule by mouth once jack ly. lansoprazole 30 mg oral capsule,delayed release(DR/EC) Take 30 mg by mouth once daily. Lidocaine 4 % topical adhesive patch,medicated Apply 1 patch to affected area once lala y as needed. Indications: neuropathic pain nicotine 14 mg/24 hr transdermal patch 24 hour Apply to skin as needed. oxyCODONE (immediate release) 5 mg oral tablet Take 1-2 tablets by mouth every four darian rs as needed for severe pain. Indications: Pain QVAR REDIHALER 40 mcg/actuation inhalation HFA aerosol breath activated Inhale by mouth once daily. senna-docusate 8.6-50 mg oral tablet Take 1 tablet by mouth twice daily as needed for c onstipation. Indications: constipation SYNTHROID 50 mcg oral tablet Take 50 mcg by mouth once daily. triamterene-hydrochlorothiazide 37.5-25 mg oral tablet Take 0.5 tablets by mouth once d aily. Indications: high blood pressure No current facility-administered medications for this visit. ROS: She does note a history of stable weight. She does not note head tremors. She does not note extremity tremors. She does note problems with anxiety. She does not note proble ms with depression. System review was otherwise negative for: recent objective fevers, pro ductive cough, recent hemoptysis, physiologically significant murmur, recent angina, recent myocardial infarction, persistent arrhythmia, stroke, liver disease, primary bleeding disord er or renal insufficiency/failure. EXAMINATION: BP 132/79 | Pulse 69 | Ht 1.626 m (5' 4") | Wt 55.7 kg (122 lb 11.2 oz) | BMI 21.06 kg/m | BSA 1.59 m Gen: She is a 69 y.o. [...] lesions noted of the face or head. Salivary Glands: The salivary glands are soft and show no lesions or masses within the par otid or submandibular glands bilaterally. There is no obvious obstruction of Stensen's or W lilibeth's ducts bilaterally. Oropharynx: Normal lips and oral competence are noted. The dentition is good. The mucosa is dry and pale, but shows no lesions or masses. The tonsils are 1+ and the fossae show no lesions. Bimanual palpation of the gigivolabial sulcus, lingual sulcus, tonsillar pillars, palate and base of tongue did not demonstrate any concerning lesions or masses. Neck: The neck is atraumatic. There is no lymphadenopathy noted in the anterior, posterior , digastric or submental triangles. The thyroid is palpable, but not enlarged or tender. I cannot appreciate any nodules. The larynx is anatomic in positioning. The bilateral thyro hyoid muscle(s) are tight with voicing. The thyrohyoid muscle(s) are not tender. The bilat eral digastric muscle(s) are not tight with voicing. The digastric muscle(s) are not tender . The base of tongue is tight with voicing. It is not tender to palpation. Chest: Chest rise is symmetric and there is no audible wheezing, stridor or wet vocal qual ity. Her breathing is somewhat shallow, but not labored. Her chest is clear to auscultatio n bilaterally. Heart: She has a regular rate and rhythm. Her pulses are full. Neurologic: The patient is awake, alert and cooperative with the examination. Responses t o questions were judged to be appropriate throughout the interview. The extraoccular moveme nts are intact and symmetric throughout. The pupils are equal. Legend Maker strength does jameel ear full bilaterally. Facial motion is normal on the right. Facial motion is normal on t he left. Hearing is grossly intact. Gag reflex is normal on the right. Gag reflex is nor mal on the left. Palatal elevation is normal on the right. Palatal elevation is normal on the left. Tongue bulk is normal bilaterally and protrusion is midline. Tongue protrusion i s normal on the right. Tongue protrusion is normal on the left. There are no tremors of t he head, palate or tongue noted. There are no extremity tremors noted. VOICE EVALUATION: Perceptual voice evaluation demonstrates dysphonia which is moderate to severe. The pitch is elevated for a female and shows markedly limited range. Vocal intensi ty is low and shows markedly limited upper range. There is 1+ roughness, 2-3+ breathiness , 2-3+ asthenia and 1+ tightness appreciated. There is no tremor noted with sustained vowe l phonation. I am unable to detect voice breaks. Glottal teague is not detected. There is di plophonia noted. Articulation is normal. Resonance is normal. LARYNGOSCOPY: Laryngoscopy [...] motion. The left fold is in a paramedian-lateral position at rest. There is no paradoxical motion. The medial edges are crisp and show no lesions or masses. The mucosal covering appears mildly edematous, but otherwise healthy. There is no obvious vascular ecta shlomo or erythema. While closure is difficult to assess completely without stroboscopy, it ap pears to be incomplete with wide glottic gap. The vocal processes show no granulomas or con tact ulcers. The subglottis and proximal trachea is clear and unobstructed to the limits of the examination today. No pseudosulcus can be appreciated [...] intact bilatera lly. The mucosal wave is not periodic. Propagation of the mucosal waveform is disorganized . There is no chasing asymmetry noted. On the right, the wave amplitude is globally decrea sed. On the left, the wave amplitude is globally decreased. Closure is not complete with a wedge-like closure. There is not noted to be a vertical phase defect by videostroboscopy. On the right, the mucosal edge appears free of lesions. On the left, the mucosal edge appe ars free of lesions. On the right, the submucosal space appears free of lesions. On the le ft, the submucosal space appears free of lesions. ASSESSMENT: Ms. Allred appears to have dysphonia and pharyngeal dysphagia associated with l eft vocal fold paralysis following left thoracotomy with left upper lobe resection and media stinal lymph node dissection. It is possible that she will have return of function of the l eft recurrent nerve, but this is quite unlikely in the setting of extensive dissection for l servando cancer. Most of the time the recurrent nerve cannot be identified during these procedur es and is typically divided if injured. As such, it is unlikely to return to normal motion. She is relatively early following her surgery and I would not plan on a permanent medializ ation thyroplasty at this time. I think that she would be best served with injection laryng oplasty for her significant glottic insufficiency. We talked about this for quite a while t dominik. We had a long talk about the [...] restri ctions on voicing or swallowing. PLAN: After a thorough discussion of our findings today, I have offered her injection lar yngoplasty with Cymetra to help improve her glottic closure. We talked about the procedure and its temporary nature. We also talked about the expected outcomes after injection and th e voice changes that will take place over the next several weeks. Overall, the goal is to i mprove glottic competence and allow for easier voicing. She understands this and is interes michelle in proceeding with injection laryngoplasty. PROCEDURE: Following review of the risks and benefits of the procedure and [facility] consent, Ms. Allred was brought to the treatment room and her nose was topicalized with A frin and pontocaine. After allowing adequate time for vasoconstriction and analgesia, her n huber was carefully palpated and the lower half of the left thyroid cartilage was identified. The skin and perichondrium of the thyroid ala were anesthetized with 1% lidocaine and 1:100 ,000 epinephrine. After cleaning the neck with alcohol, fiberoptic laryngoscopy was performed with video mon itoring. 2 cc Cymetra was prepared with 1.7 cc of sterile saline to the hand compositor's inst ructions. This was loaded into a 1 cc syringe with a 1 1/2 inch 23 ga needle. Percutaneous injection was then performed with fiberoptic guidance into the left vocal fold. Approximate ly 0.8 cc was used to achieve adequate vocal fold filling. Excellent fusiform filling was o bserved. There was no bleeding at the conclusion of the procedure and Ms. Allred tolerated t he procedure well. PLAN: We discussed the expected return to improve voicing following the procedure over the next several days to weeks. She may proceed with her chemotherapy, radiation therapy and an y additional therapies as indicated by her oncology team. I will see her back in [facility] 3 months, or sooner if symptoms worsen. Augustine Nolan M.D. [facility] Chas Martinez MA - 01/24/2019 9:30 AM PDTLaryngoscopy procedure was performed using e following instruments: Description #1: Flexible Rhino Serial ID #1: [id number] Chas Gibson MA - 01/24/2019 9:30 AM PDTLaryngoscopy procedure was performed using the following instrum ents: Description #1: Flexible Rhino Serial ID #1: [id number] documented in this encounter Plan of Treatment [...] | | | | | | [place] [address] | | | | | | [phone] | | | | | | | | +--------+---------+ + + + | 04/30/ | Office | Otolaryngology | Augustine Nolan | | | 2019 | Visit | | MD Debbie [address] | | | | | | [address] | | | | | | [place], [place] | | | | | | [address] | | | | | | [phone] | | | | | | | | +--------+---------+ + + + documented as of this encounter Procedures + +--------+ + + + | Procedure Name | Priori | Date/Time | Associated Diagnosis | Comments | | | ty | | | | + +--------+ + + + | CA | Routin | 02/22/2019 | Paralysis of left | | | LARYNGOSCOPY,FLEXIBL | e | 12:31 PM | vocal fold | | | E, W INJ FOR | | PDT | Dysphonia | | | AUGMENTATION, UNILAT | | | Pharyngeal dysphagia | | | | | | Non-small cell | | | | | | carcinoma of lung | | | | | | (HCC) | | + +--------+ + + + | CA | Routin | 02/22/2019 | Paralysis of left | | | LARYNGOSCOPY,FLEX/RI | e | 12:31 PM | vocal fold | | | GID+STROBOSCOPY | | PDT | Dysphonia | | | | | | Pharyngeal dysphagia | | + +--------+ + + + documented in this encounter Visit Diagnoses + + | Diagnosis | + + | Paralysis of left vocal fold - Primary | + + | Dysphonia | + + | Pharyngeal dysphagia Dysphagia, pharyngeal phase | + + | Non-small cell carcinoma of lung (HCC) Malignant neoplasm of bronchus and lung, | | unspecified site | + + documented in this encounter
--- OUTSIDE RECORDS SUMMARY | ~2020-03-30 | XMS | Encounter Summary ---
Demographics + + + | Address | [address] | | | [place] [address] | + + + | Home Phone [...] + + + | Author | [facility] | | | and Jakobana | + + + | Organization | [facility] | | | and [...] Team Providers + +------+ + | Care Landscape Account Manager Name | Role | Phone | [...] neoplasm of | Boubacar Daniels, | [address] | | | | | unspecified | MD [address] | [place], | | | | | part of | [place] | [place] [address] | | | | | unspecified | [address] | Phone: | | | | | bronchus or | [place], | [phone] | | | | | lung (HCC) | [place] [address] | Fax: | | | | | Procedures | Phone: | [phone] | | | | | [place]AMIN | [phone] | | | | | | B12 | Fax: | | | | | | INJECTION, | [phone] | | | | | | [address] OR | | | | | | | ONDANSETRON | | | | | | | ORAL OR | | | | | | | ORAL | | | | | | | DEXAMETHASON | | | | | | | E, .25 MG | | | | | | | OR INJ., | | | | | | | APREPITANT, | | | | | | | 1 MG OR | | | | | | | PEMETREXED | | | | | | | INJECTION, | | | | | | | 10 MG OR | | | | | | | CARBOPLATIN | | | | | | | INJECTION, | | | | | | | 50 MG OR | | | | | | | ADRENALIN | | | | | | | EPINEPHRINE | | | | | | | INJECT, .1 | | | | | | | MG OR | | | | | | | DIPHENHYDRAM | | | | | | | INE HCL | | | | | | | INJECTIO, 50 | | | | | | | MG OR | | | | | | | METHYLPREDNI | | | | | | | SOLONE | | | | | | | INJECTION, | | | | | | | 125 MG OR | | | | | | | ALBUTEROL | | | | | | | COMP CON, 1 | | | | | | | MG OR | | | | | | | ALBUTEROL | | | | | | | NON-COMP | | | | | | | CON, 1 MG | | | | | | | OR | | | | | | | INJECTION, | | | | | | | FAMOTIDINE, | | | | | | | 20 MG OR | | | | | | | NORMAL | | | | | | | SALINE | | | | | | | SOLUTION | | | | | | | INFUS, 500 | | | | | | | ML OR | | | | | | | NORMAL | | | | | | | SALINE | | | | | | | SOLUTION | | | | | | | INFUS, 250 | | | | | | | ML OR | | | | | | | STERILE | | | | | | | WATER/SALINE | | | | | | | , 10 ML OR | | | | | | | CHEMOTHER, | | | | | | | IV PUSH,EA | | | | | | | ADD DRUG OR | | | | | | | CHEMOTHER, | | | | | | | IV INFUSION, | | | | | | | 1 HR OR | | | | | | | CHEMOTHER, | | | | | | | IV INFUSION, | | | | | | | EA HR OR | | | | | | | CHEMOTHER,NO | | | | | | | N-HORMONE | | | | | | | ANTI-NEOPL, | | | | | | | SUB-Q/IM OR | | | | | | | CHEMOTHER | | | | | | | HORMON | | | | | | | ANTINEOPL | | | | | | | SUB-Q/IM OR | | | | | | | | | | | | | | PALONOSETRON | | | | | | | HCL, 25 MCG | | | +--------+--------+ + + + + Encounter Details +--------+ + + + + | Date | Type | Department | Care Team | Description | +--------+ + + + + | 05/01/ | Hospital | [facility] | Adolfo, | Dysphagia, | | 2019 | Encounter | MED CTR CHEMO | Boubacar Daniels MD [address] | unspecified type | | | | INFUSION [address] [place] [facility] [place] | (Primary Dx); 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[place], | [address] [place], [place] | cord paralysis; | | | | [place] [address] | [id number] | Malignant neoplasm | | | | [phone] | | of hilus of lung, | [...] + + + | Blood Pressure | 136/63 | 05/01/2019 1:00 PM | | | | | PDT | | + + + + + | Pulse | 75 | 05/01/2019 1:00 PM | | | | | PDT | | + + + + + | Temperature | 36.3 C (97.3 F) | 05/01/2019 1:00 PM | | | | | PDT | | + + + + + | Respiratory Rate | 16 | 05/01/2019 1:00 PM | | | | | PDT | | + + + + + | Oxygen Saturation | 99% | 05/01/2019 1:00 PM | | | | | PDT [...] encounter Progress Notes Roxanne Wheeler RN - 05/01/2019 1:00 PM PDTHere for IV fluids. Appetite ok. Ordered l unch here. States she is having swelling in her ankles, noted by nurse. Also feels slightl y swollen in neck. Lungs clear throughout. Told her this is likely due to her anemia. No new changes. Ongoing pain which she rates as a "6". 1420 - Discharged to home in satisfactory condition. Returns tomorrow for more IV fluids.E lectronically signed by Roxanne Wheeler RN at 05/01/2019 2:41 PM PDTdocumented in this en counter Plan of Treatment [...] | | | | | [place] [address] | | | | | | [phone] | | | | | | | [...] heparin 100 units/mL flush | Given | 05/01/20 | 500 | | | | injection 500 Units 500 Units (5 | | 19 2:19 | Units | | | | mL), Intracatheter, PRN, Line | | PM PDT | | | | | Care, Starting [facility] 05/01/19 at | | | | | | | 1210 | | | | | | + +--------+ +-------+------+------+ +---+---+ | | | +---+---+ + +---------+ +---+-------+---+ | sodium chloride 0.9% (NS) | New Bag | 05/01/20 | | 800 | | | infusion at 800 mL/hr, | | 19 12:55 | | mL/hr | | | Intravenous, ONCE, [facility] 05/01/19 at | | PM PDT | | | | | 1230, For 1 dose, Give 1 liter | | | | | | | NS as needed per patient request, | | | | | | | | | | | | | + +---------+ +---+-------+---+ +---+---+ | | | +---+---+ documented in this encounter
--- OUTSIDE RECORDS SUMMARY | ~2020-03-30 | XMS | Encounter Summary ---
Demographics + + + | Address | [address] | | | [place] [address] | + + + | Home Phone [...] Author | [facility] | | | and Jakobana | + + + | Organization | [facility] | | | and Jakobana [...] Team Providers + +------+ + | Care Recreational Vehicle Resort Manager Name | Role | Phone | [...] Specialty | Dietitian / | Diagnoses | | House, | | | Services | Nutrition | Malignant | Adolfo, | Ramona Parsons, | | | Required | | neoplasm of | Boubacar Daniels | ANYA | | | | | upper lobe | [place] [address] | | | | | | of left lung | [facility] | | | | | | ([facility]) | [address] | | | | | | | [place], | | | | | | | [place] [address] | | | | | | | Phone: | | | | | | | [phone] | | | | | | | Fax: | | | | | | | [phone] | | +--------+ + + + + + Reason for Visit + +--------+ + | Reason | Onset | Comments | | | Date | | + +--------+ + | IDT Note | 01/31/ | | | | 2019 | | + +--------+ + Encounter Details +--------+ + + + + | Date | Type | Department | Care Team | Description | +--------+ + + + + | 01/31/ | Telephone | [facility] | Sonam Steele, | IDT Note | | 2019 | | MED CTR CHEMO | RN | | | | | INFUSION [address] | | | | | | [place], | | | | | | [place] [address] | | | | | | [phone] | | | +--------+ + + + [...] this encounter Miscellaneous Notes Telephone Encounter - Sonam Steele RN - 01/31/2019 7:54 AM PDT [facility] Interdisciplinary Team Navigational Checklist ? Top Priority Discipline EPIC Order Entered Consult Scheduled Consult Complete Comments: x *Medical Oncology Dr. Mata x *Radiation Oncology Dr. Anne x *Patient Navigation x *Nurse Navigator x *Social Service Survivorship Nurse Breast Health Genetics Surgical Input x *Nursing assessment Carbo and Alimta Q 21 days x *Pharmacy assessment x Nutrition 01/31 x Rehab: PT OT Speech & Language Palliative Care Clinical Trials Involvement Filter Press Tender Head Visit Financial Assistance Interdisciplinary Consults Completed Date: documented in thi s encounter Plan of [...] | | | | | | [place] [address] | | | | | | [phone] | | | | | | | | +--------+ + + + + + + +--------+ + + | Name | Type | Priori | Associated Diagnoses | Order Schedule | | | | ty | | | + + +--------+ + + | * [facility] | Outpatient | Routin | Malignant neoplasm | Ordered: 01/31/2019 | | Services - AMB | Referral [...]
--- OUTSIDE RECORDS SUMMARY | ~2020-03-30 | XMS | Encounter Summary ---
Demographics + + + | Address | [address] | | | [place] [address] | + + + | Home Phone | | + + + | Preferred Language | Unknown | + + + | Marital Status | Single | + + + | Yarsani Affiliation | Unknown | + + + | Race | Unknown | + + + | Ethnic Group | Unknown | + + + Author + + + | Author | [facility] | | | and Jakobana | + + + | Organization | [facility] | [...] Team Providers + +------+ + | Care Machine Clothing Worker Name | Role | Phone | [...] neoplasm of | Boubacar Daniels, | [address] | | | | | unspecified | MD [address] | [place], | | | | | part of | [facility] | [place] [address] | | | | | unspecified | [address] | Phone: | | | | | bronchus or | [place], | [phone] | | | | | lung (HCC) | [place] [address] | Fax: | | | | | Procedures | Phone: | [phone] | | | | | ME VITAMIN | [phone] | | | | | | B12 | Fax: | | | | | | INJECTION, | [phone] | | | | | | [address] | | | | | | | ONDANSETRON | | | | | | | ORAL ME | | | | | | | ORAL | | | | | | | DEXAMETHASON | | | | | | | E, .25 MG | | | | | | | ME INJ., | | | | | | | APREPITANT, | | | | | | | 1 MG ME | | | | | | | PEMETREXED | | | | | | | INJECTION, | | | | | | | 10 MG ME | | | | | | | CARBOPLATIN | | | | | | | INJECTION, | | | | | | | 50 MG ME | | | | | | | ADRENALIN | | | | | | | EPINEPHRINE | | | | | | | INJECT, .1 | | | | | | | MG ME | | | | | | | DIPHENHYDRAM | | | | | | | INE HCL | | | | | | | INJECTIO, 50 | | | | | | | MG ME | | | | | | | METHYLPREDNI | | | | | | | SOLONE | | | | | | | INJECTION, | | | | | | | 125 MG ME | | | | | | | ALBUTEROL | | | | | | | COMP CON, 1 | | | | | | | MG ME | | | | | | | ALBUTEROL | | | | | | | NON-COMP | | | | | | | CON, 1 MG | | | | | | | ME | | | | | | | INJECTION, | | | | | | | FAMOTIDINE, | | | | | | | 20 MG ME | | | | | | | NORMAL | | | | | | | SALINE | | | | | | | SOLUTION | | | | | | | INFUS, 500 | | | | | | | ML ME | | | | | | | NORMAL | | | | | | | SALINE | | | | | | | SOLUTION | | | | | | | INFUS, 250 | | | | | | | ML ME | | | | | | | STERILE | | | | | | | WATER/SALINE | | | | | | | , 10 ML ME | | | | | | | CHEMOTHER, | | | | | | | IV PUSH,EA | | | | | | | ADD DRUG ME | | | | | | | CHEMOTHER, | | | | | | | IV INFUSION, | | | | | | | 1 HR ME | | | | | | | CHEMOTHER, | | | | | | | IV INFUSION, | | | | | | | EA HR ME | | | | | | | CHEMOTHER,NO | | | | | | | N-HORMONE | | | | | | | ANTI-NEOPL, | | | | | | | SUB-Q/IM ME | | | | | | | CHEMOTHER | | | | | | | HORMON | | | | | | | ANTINEOPL | | | | | | | SUB-Q/IM ME | | | | | | | | | | | | | | PALONOSETRON | | | | | | | HCL, 25 M[address] | | | +--------+--------+ + + + + Encounter Details +--------+ + + + + | Date | Type | Department | Care Team | Description | +--------+ + + + + | 02/05/ | Hospital | [facility] | Adolfo, | 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 | | | | INFUSION [address] | left lung (HCC) | | | | [place], | [address] [place], [place] | (Primary Dx) | | | | [place] [address] | [address] | | | | | [phone] | | | +--------+ + + + [...] | 0 | | | | Products (Achieve3000ALAYAN | Daily. | | | | 0 [...] | | | | | [place] [address] | | | | | | [phone] | | | | | | | [...] | aprepitant (CINVANTI) injection | Given | 02/06/20 | 130 mg | | | | 130 mg 130 mg, IV Push, ONCE, | | 19 12:08 | | | | | Sun02/05/19 at 1145, For 1 dose, | | PM PDT | | | | | Administer 30 minutes prior to | | | | | | | chemotherapy. Administer slowly | | | | | | | over 2 minutes, | | | | | | + +--------+ +--------+------+------+ +---+---+ | | | +---+---+ + +---------+ + +--------+---+ | CARBOplatin (PARAPLATIN) 434.5 | New Bag | 02/06/20 | 434.5 mg | 543.5 | | | mg in sodium chloride 0.9% 500 mL | | 19 12:50 | | mL/hr | | | infusion 434.5 mg (Target AUC = | | PM PDT | | | | | 5), Intravenous, Administer over | | | | | | | 60 Minutes, ONCE, Sun02/05/19 at | | | | | | | 1200, For 1 dose, Chemotherapy: | | | | | | | Use appropriate handling | | | | | | | precautions., | | | | | | + +---------+ + +--------+---+ +---+---+ | | | +---+---+ + +-------+ +------+---+---+ | dexamethasone (DECADRON) tablet | Given | 02/06/20 | 4 mg | | | | 4 mg 4 mg, Oral, ONCE, Sun | | 12:08 | | | | | 02/05/19 at 1145, For 1 dose, | | PM PDT | | | | | Administer 30 minutes prior to | | | | | | | chemotherapy., | | | | | | + +-------+ +------+---+---+ +---+---+ | | | +---+---+ + +-------+ +------+---+---+ | LORazepam (ATIVAN) injection | Given | 02/06/20 | 1 mg | | | | 0.5-1 mg 0.5-1 mg, Intravenous, | | 19 11:50 | | | | | EVERY 6 HOURS PRN, Anxiety, | | AM PDT | | | | | nausea, Starting Sun02/05/19 at | | | | | | | 1137 | | | | | | + +-------+ +------+---+---+ +---+---+ | | | +---+---+ + +-------+ +---------+---+---+ | palonosetron (ALOXI) injection | Given | 02/06/20 | 0.25 mg | | | | 0.25 mg 0.25 mg, Intravenous, | | 19 12:02 | | | | | ONCE, 02/05/19 at 1145, For 1 | | PM PDT | [...] 800 mg in | New Bag | 02/06/20 | 800 mg | 600 | | | sodium chloride 0.9% 100 mL | | 19 12:33 | | mL/hr | | | infusion 800 mg (rounded from | | PM PDT | | | | | 785 mg = 500 mg/m2 | | | | | | | 1.57 m2 Treatment plan recorded | | | | | | | BSA), Intravenous, Administer | | | | | | | over 10 Minutes, ONCE, Wed | | | | | | | 02/05/19 at 1145, For 1 dose, | | | | | | | Chemotherapy: Use appropriate | | | | | | | handling precautions., | | | | | | + +---------+ +--------+-------+---+ +---+---+ | | | +---+---+ documented in this encounter"
--- OUTSIDE RECORDS SUMMARY | ~2020-03-30 | XMS | Encounter Summary ---
Demographics + + + | Address | [address] | | | [place] [address] | + + + | Home Phone | | + + + | Preferred Language | Unknown | + + + | Marital Status | Single | + + + | Judaism Affiliation | Unknown | + + + | Race | Unknown | + + + | Ethnic Group | Unknown | + + + Author + + + | Author | [facility] | | | and Jakobana | + + + | Organization | [facility] | | | [...] Team Providers + +------+ + | Care Line Cleaner Name | Role | Phone | + [...] Closed | | Radiology | Diagnoses | Dayana | [facility] | | | | | Malignant | Fiona Parsons, | Scan [address] | | | | | neoplasm of | MD [address] | [place] | | | | | upper lobe | [address] | [place], [place] | | | | | of left lung | [place], | [address] | | | | | ([facility]) | [place] [address] | Phone: | | | | | Procedures | Phone: | [phone] | | | | | PET CT Skull | [phone] | Fax: | | | | | Base To Mid | Fax: | [phone] | | | | | Thigh | [phone] | | +--------+--------+ + + + + Reason for Visit Diagnostic/Screening (Routine) +--------+--------+ + + + + | Status | Reason | Specialty | Diagnoses / | Referred By | Referred To | | | | | Procedures | Contact | Contact | +--------+--------+ + + + + | Closed | | Radiology | Diagnoses | Riegert, | [facility] | | | | | Malignant | Fiona M, | Scan [address] | | | | | neoplasm of | MD [address] | [place] | | | | | upper lobe | [address] | [place], [place] | | | | | of left lung | [place], | [address] | | | | | ([facility]) | [place] [address] | Phone: | | | | | Procedures | Phone: | [phone] | | | | | PET CT Skull | [phone] | Fax: | | | | | Base To Mid | Fax: | [phone] | | | | | Thigh | [phone] | | +--------+--------+ + + + + Encounter Details +--------+ + + + + | Date | Type | Department | Care Team | Description | +--------+ + + + + | 01/07/ | Hospital | [facility] | Fiona Anne | Malignant neoplasm | | 2020 | Encounter | MED CTR PET SCAN | MD Issa [address] | of upper lobe of | | | | [address] [place] | [address] [place] | left lung (HCC) | | | | [place] [address] | [address] | | | | | [phone] | | | +--------+ + + + [...] + + + +---------+ + + | Arginine 500 MG | Take 2 capsules by | | 0 | | | | CAPS | mouth 2 times [...] + + + +---------+ + + | docusate-senna | Take 1 tablet by | | 0 | | | | (SENOKOT-S) 50-8.6 | mouth Daily. | | | | | | mg [...] patch onto | 10 | 0 | 01/05/20 | | | (DURAGESIC) 25 | the skin every 72 | patch | | 20 | | | mcg/hrIndications: | hours. Apply skin | | | | | | Malignant neoplasm | patch every three | | | | | | of left lung, | days for pain | | | | | | unspecified part of | | | | | | | lung (HCC) | | | | | | + + + +---------+ + + | ferrous sulfate | Take 28 mg by mouth | | 0 | | | | (IRON) 28 MG TABS | Daily. | | | | | + + + +---------+ + + | | Take one to two | 150 | 0 | 12/22/19 | | | HYDROcodone-acetamin | tablets orally every | tablet | | 20 | | | ophen (NORCO) | 6 hours as needed | | | | | | 7.5-325 mg per | for pain, maximum 6 | | | | | | tabletIndications: [...] + + | Misc Natural | Take by mouth. | | 0 | | | | Products (HIMALAYAN | | | | | | | GOJI PO) | | | | | | + + + +---------+ + + | Multiple | Take 1 tablet by | | 0 | | | | Vitamins-Iron | mouth Daily. | | | | | | (DAILY-EVANGELINA/IRON/BET | | | | | | | A-CAROTENE PO) | | | | | | + + + +---------+ + + | Multiple | Take 1 tablet by | | 0 | | | | Vitamins-Minerals | mouth Daily. | | | | | | (HAIR SKIN AND NAILS | | | | | | | FORMULA PO) | | | | | | + + + +---------+ + + | nicotine | Take 2 mg by mouth | | 0 | | | | (NICORETTE) 2 mg gum | [...] +---------+ + + | oxyCODONE | Take 1 tablet by | | 0 | 10/10/19 | | | (ROXICODONE) 5 mg | mouth every 4 hours | | | 20 | | | tablet | as needed. (Take 1-3 | | | | | | | tablets by mouth | | | | | | | every four hours as | | | | | | | needed for moderate | | | | | | | pain or severe pain) | | | | | + + + +---------+ + + | oxymetazoline | Apply 1 Dose | | 0 | | | | (RHOFADE) 1% cream | topically Daily. | | | | | + + + +---------+ + + | UNABLE TO FIND | Sero Vital | | 0 | | | + + + +---------+ [...] | | | | | [place] [address] | | | | | | [phone] | | | | | | | [...] +--------+ + +------+------+ | fluorine-18 FDG injection 11.28 | Given | 01/08/20 | 11.28 | | | | millicurie 11.28 millicurie, | | 20 11:18 | millicur | | | | Intravenous, ONCE, [facility] 01/08/20 at | | AM PDT | ies | | | | 1130, For 1 dose | | | | | | + +--------+ + +------+------+ +---+---+ | | | +---+---+ documented in this encounter"
--- OUTSIDE RECORDS SUMMARY | ~2020-03-30 | XMS | Clinical Summary ---
Demographics + + + | Address | [address] | | | [place] [address] | + + + | Home Phone | | + + + | Preferred Language | Unknown | + + + | Marital Status | Single | + + + | Voodoo Affiliation | NRP | + + + | Race | White | + + + | Ethnic Group | Not or | + + + Author + + + | Author | [facility] | + + + | [...] Team Providers + +------+ + | Care Modeling Manager Name | Role | Phone | + +------+ + | Lauryn Stuart | PCP | | + +------+ + Source Comments [facility] is fully live on both [facility] and [facility] InPatient.[facility] Allergies + + + + + + [...] | | | | e | | [id number] (HAIR, | with dinner. | | | [...] | dysphagia.- Strict NPO, consider re consulting AUTOMOBILE BODY REPAIRER HELPER today pending | | course and ENT [...] placed on 12/07- Strict NPO- ENT performed NEEDLEMAKER scope | | with evidence of left [...] | | | | | [place], | | | | | | [place] [address] | | | | | | [phone] | | | | | | | | +--------+---------+ + + + | 04/30/ | Office | Otolaryngology | Augustine Nolan | | | 2020 | Visit | | MD Debbie [address] | | | | | | [address] | | | | | | [place], [place] | | | | | | [address] | | | | | | [phone] | | | | | | | [...] Left: | SYNOVIS | | 04/10/ | [id number] | | Marly-Guard Bovine Pericardium | | Chest | | | 2022 | NBIO / | | [place] Process Sterile | | | | | | | | Disposable - | | | | | | /[id number] | | [id number]: Qty: 1 on | | | | | | 26-135 | | 12/04/2018 by Stacy, | | | | | | 6437 | | MD Manoj at [facility] | | | | | | | | REV LOC | | | | | | | + +------+--------+ +--------+--------+--------+ + + | Description:Rinsed in 0.9% | | NaCl lot [id number] Aug 2021 | + + + +---+--------+------+---+--------+--------+ | [facility] | | Left: | BARD | | 09/16/ | [id number] | | in Bard Thk1.65mm | | Chest | | | 2022 | / | | Rectangle Ptfe [place] Sterile - | | | | | | /[id number] | | [id number]: Qty: 1 | | | | | | 623 | | on 12/04/2018 by Stacy, | | | | | | | | MD Manoj at [facility] | | | | | | [...] | 1950 | [phone] | [place] [address] | | | johnson | | | [...]
--- OUTSIDE RECORDS SUMMARY | ~2020-03-30 | XMS | Encounter Summary ---
Demographics + + + | Address | [address] | | | [place] [address] | + + + | Home Phone | | + + + | Preferred Language | Unknown | + + + | Marital Status | Single | + + + | Protestant Affiliation | Unknown | + + + | Race | Unknown | + + + | Ethnic Group | Unknown | + + + Author + + + | Author | [facility] | | | and Jakobana | + + + | Organization | [facility] | | | and Jakobana | [...] Team Providers + +------+ + | Care Crank Hand Name | Role | Phone | + +------+ + | Lauryn Stuart PA-C | PCP | | + +------+ + Reason for Visit + +--------+ + | Reason | Onset | Comments | | | Date | | + +--------+ + | Medication Refill | 09/11/ | | | Assistance | 2020 | | + +--------+ + Encounter Details +--------+ + + + + | Date | Type | Department | Care Team | Description | +--------+ + + + + | 09/11/ | Telephone | [facility] | Adolfo, | Medication Refill | | 2020 | | [facility] | Boubacar Daniels MD [address] | Assistance | | | | ONCOLOGY CLINIC [address] [facility] | | | | | [place] | [address] [place] [place] | | | | | [place] [address] | [id number] | | | | | [phone] | | | +--------+ + + + [...] Telephone Encounter - Adelita Elizalde RN - 09/11/2019 1:29 PM PSTMessage left for rosalia card to schedule appointment with Dr Mata. elephone Encounter - Boubacar Mata MD - 09/11/19 12:39 PM PSTHave patient schedule an OV for evaluation. Electronically signed by: Boubacar Mata MD 09/11/2019 12:39 PM elephone Adelita Lemon RN - 09/11/2019 11:53 AM PSTPlease advise on patient's complain ts as delineated this am, thank you.Electronically signed by Adelita Elizalde RN at 08/21 11:54 AM PSTTelephone Encounter - Boubacar Mata MD - 09/11/2019 11:09 AM PST Task completed. Electronically signed by: Boubacar Mata MD 09/11/2019 11:09 AM elephone Adelita Lemon RN - 09/11/2019 10:18 AM PSTPatient states has "all the time" d yspnea since three weeks ago and is increasing steadily. Denies fever but has dry cough. H aving some hoarseness and exhaustion continues. Clarifies wants refill of Hydrocodone, NOT O xycodone. Please advise. 10:2 1 AM PSTTelephone Encounter - Nathaly Garcia - 09/11/2019 8:32 AM PSTKatharina is asking for a r efill of her fentanyl patch and her oxycodone and wants it filled at [facility] give her a call. document ed in this encounter Plan of Treatment +--------+ + + + + | Date | Type | Specialty | Care Team | Description | +--------+ + + + + | 04/20/ | Appointment | Radiation Oncology | Treva Ortega | | | 2019 | | | DEISY Hernandez [address] | | | | | | [address] [facility] | | | | | | [place] [address] | | | | | | [phone] | | | | | | | | +--------+ + + + + documented as of this encounter Visit Diagnoses + + | Diagnosis | + + | Malignant neoplasm of hilus of lung, unspecified laterality (HCC) | + + documented in this encounter
--- OUTSIDE RECORDS SUMMARY | ~2020-03-30 | XMS | Encounter Summary ---
Demographics + + + | Address | [address] | | | [place] [address] | + + + | Home Phone | | + + + | Preferred Language | Unknown | + + + | Marital Status | Single | + + + | Scientology Affiliation | Unknown | + + + | Race | Unknown | + + + | Ethnic Group | Unknown | + + + Author + + + | Author | [facility] | | | and Jakobana | + + + | Organization | [facility] | [...] Providers + +------+ + | Care System Operation Superintendent Name | Role | Phone | [...] + + + | Authorized | | Medical | Diagnoses | [facility] | | | | | Oncology / | G89.3 | Medical | Adolfo, | | | | Oncology | (ICD-10-CM) | Oncology | Boubacar Daniels MD | | | | | - Neoplasm | Clinic [address] | | | | | related pain | [address] | [address] | | | | | (acute) | [place], | [address] | | | | | (chronic) | [place] | [place], [place] | | | | | C34.12 | [address] | [address] | | | | | (ICD-10-CM) | Phone: | Phone: | | | | | - Malignant | [phone] | [phone] | | | | | neoplasm of | Fax: | Fax: | | | | | upper lobe, | [phone] | [phone] | | | | | left | | | | | | | bronchus or | | | | | | | lung (HCC) | | | | | | | Procedures | | | | | | | [address] | | | + +--------+ + + + + Encounter Details +--------+ + + + + | Date | Type | Department | Care Team | Description | +--------+ + + + + | 01/12/ | Hospital | [facility] | Ad[place]fo, | Malignant neoplasm | | 2020 | Encounter | [facility] | Boubacar Daniels MD [address] | of left lung, | | | | ONCOLOGY CLINIC [address] | [address] [facility] | unspecified part of | | | | [address] [place] | [address] [place], [place] | lung (HCC) | | | | [place] [address] | [address] | | | | | [phone] | | | +--------+ + + + [...] patch onto | 10 | 0 | //20 | | | (DURAGESIC) 25 | the [...] to two | 150 | 0 | //20 | | | HYDROcodone-acetamin | tablets orally [...] Daily. | | | | | | (DAILY-EVANGELNIA/IRON/BET | | | | | | | [...] encounter Progress Notes Boubacar Mata MD - 01/13/2020 4:40 PM PDTFormatting of this note might be differe nt from the original. Hematology/Oncology Progress Note [facility] CAROL Menon Pt. Name/Age/: Sussy Allred 69 y.o. 1950 [facility]. Record Number: [id number] Date of admission: 01/13/2020 The patient's primary care provider is Lauryn Stuart PA-C. Identifying Statement: Sussy Allred is a 69 y.o. female from [address] [place] [address] with Stage IIIA poorly differentiated adenocarcinoma of [...] L, 4L and hilar lymph nodes (Stacy [facility]). Patholog ical specimen # [id number] was notable for a poorly differentiated adenocarcinoma, 3.2 cm w ith lymphovascular invasion (pT2a), and 13/31 lymph nodes positive for regionally metastatic disease (pN2). Post-operative course complicated by left vocal cord paralysis, necessitatin g temporary placement of a G-tube. 8. Cycle #1 [...] of left supraclavicular fossa; no supraclavicular abnormality. 13. Completed adjuvant radiation therapy on April 04, 2019. 14. Cycle #4 pemetrexed/carboplatin April 10, 2019. 15. MRI brain on April 14, 2019; no evidence of metastatic disease. 16. Sniff test negative for diaphragmatic paralysis on June 11, 2019. 17. CT chest with contrast on July 03, 2019 interpreted as radiation pneumonitis-predni sone therapy started. 18. PET CT scan on July 10, 2019- No evidence for local recurrence or metastatic diseas e. 19. Left medialization thyroplasty implant (Augustine Nolan, [facility]) October 09, 2019. Current Assessment & Plan Sussy Allred returned to clinic on 01/13/2020 with no one for follow-up of Lung Cancer , left vocal cord paralysis, and post-thoracotomy pain syndrome. Interval history; Katharina is no longer working. Review of systems; Breathlessness is better. Chest wall pain is still rated at 4/10. Physical exam; Voice is no longer hoarse. Clinical Data; PET/CT scan from January 08, 2020 demonstrated no evidence of recurrent disease. Assessment; Stage IIIA, adenocarcinoma of the left lung, without evidence of recurrence at one year. Left vocal cord paralysis, resolved following left medialization thyroplasty with implant. Post-thoracotomy pain syndrome-stable. Clear outline of the Treatment Plan; Katharina is planning to continue lung cancer follow up exc lusively with Dr. Fiona Anne. Katharina is planning to transfer narcotic management to [facility]; current plan is topical fentanyl 25 mcg/hr, #10 for 30 days, one patch topical every 72 hours, and hydrocodone/APAP #150 for 30 days, with plan to taper quantity gradually. Timing of follow-up imaging; to be managed by Dr. Anne. Follow Up; follow up in medical oncology is open. Review of Systems: Constitutional: Reports energy levels are improving some. Pt reports ongoing night sweats, states not bad. Reports poor appetite. Denies high fevers, shaking chills, anorexia, nausea , vomiting, or weight loss. Ear, Nose, Mouth, Throat: Pt reports worsening of dysphagia, needs water for every swallow, follow up for this in [place] in February. Does continue complaints tinnitus. Denies odynophag ia. Cardiovascular: Pt reports dyspnea, more with exertion. Patient feels the shortness of pavan th is not increasing. Pt reports continued pain to left chest wall, with progressing to the right, states it is worsening. Denies palpitations or orthopnea. Respiratory: Patient denies cough, hemoptysis, or sputum production. Gastrointestinal: Reports need for stool softner daily to keep regular. Denies abdominal p ain, diarrhea, melena, or bright red blood per rectum. Genitourinary: Denies hematuria or dysuria. Musculoskeletal: Denies joint pain or tenderness. Neurologic: Pt reports decreased in headaches, reports being much more emotional lately. De nies visual changes or numbness/tingling of the extremities. Endocrine: Denies peripheral edema or heat/cold intolerance. Hematologic: Denies spontaneous bruising or bleeding. Integumentary: Reports ongoing continued hair loss. Reports incision to neck continues to heal well with some sensitivity. Denies rash other skin concerns. Pain:Reports pain level 4/10, upper chest. ROS otherwise negative Note: here for follow-up w/ Dr Mata, and to review CT. My chart: Declined Scheduled Medications: Current Outpatient Medications Medication Sig Dispense Refill acetaminophen (TYLENOL) 325 mg tablet Take 325-650 mg by mouth every 6 hours as needed. acyclovir (ZOVIRAX) 400 MG tablet Take 400 mg by mouth Daily. ALPRAZolam (XANAX) 0.5 mg tablet Take 1 tablet by mouth nightly as needed (taking every night.). 90 tablet 2 Arginine 500 MG CAPS Take 2 capsules by mouth 2 times daily. buPROPion (WELLBUTRIN XL) 300 mg 24 hr tablet Take 300 mg by mouth every morning. cilostazol (PLETAL) 50 mg tablet Take 50 mg by mouth Daily. cyanocobalamin (VITAMIN B-12) 1000 MCG tablet Take 500 mcg by mouth Daily. docusate-senna (SENOKOT-S) 50-8.6 mg per tablet Take 1 tablet by mouth Daily. doxycycline (VIBRAMYCIN) 100 mg capsule Take 1 capsule by mouth 2 times daily. estradiol (ESTRACE) 2 MG tablet Take 2 mg by mouth Daily. fentaNYL (DURAGESIC) 25 mcg/hr Place 1 patch onto the skin every 72 hours. Apply skin p atch every three days for pain 10 patch 0 ferrous sulfate (IRON) 28 MG TABS Take 28 mg by mouth Daily. HYDROcodone-acetaminophen (NORCO) 7.5-325 mg per tablet Take one to two tablets orally every 6 hours as needed for pain, maximum 6 tablets a day. 150 tablet 0 lansoprazole (PREVACID) [address] capsule Take 30 mg by mouth Daily. levothyroxine (SYNTHROID) 50 mcg tablet Take 50 mcg by mouth Daily. Misc Natural Products (HIMALAYAN GOJI PO) Take by mouth. Multiple Vitamins-Iron (DAILY-EVANGELINA/IRON/BETA-CAROTENE PO) Take 1 tablet by mouth Daily. Multiple Vitamins-Minerals (HAIR SKIN AND NAILS FORMULA PO) Take 1 tablet by mouth Bal y. nicotine (NICORETTE) 2 mg gum Take 2 mg by mouth as needed. ondansetron (ZOFRAN ODT) 8 mg disintegrating tablet One tablet twice a day for two days after chemotherapy to block nausea 40 tablet 1 oxyCODONE (ROXICODONE) 5 mg tablet Take 1 tablet by mouth every 4 hours as needed. (Karlo e 1-3 tablets by mouth every four hours as needed for moderate pain or severe pain) oxymetazoline (RHOFADE) 1% cream Apply 1 Dose topically Daily. UNABLE TO FIND Sero Vital No current facility-administered medications for this encounter. [...] file Highest education level: Not on file Occupational History Not on file Social Needs Financial resource strain: Not on file Food insecurity: Worry: Not on file Inability: Not on file Transportation needs: Medical: Not on file Non-medical: Not on file Tobacco Use Smoking status: Former Smoker Packs/day: 0.50 Years: 7.00 Pack years: 3.50 Start date: 08/20/2004 Last attempt to quit: 08/20/2011 Years since quittin.4 Smokeless tobacco: Never Used Substance and Sexual Activity Alcohol use: Not Currently Alcohol/week: 7.0 standard drinks Types: 7 Glasses of wine per week Drug use: Never Sexual activity: Not on file Lifestyle Physical activity: Days per week: Not on file Minutes per session: Not on file Stress: Not on file Relationships Social connections: Talks on phone: Not on file Gets together: Not on file Attends orthodox service: Not on file Active member of club or organization: Not on file Attends meetings of clubs or organizations: Not on file Relationship status: Not on file Intimate partner violence: Fear of current or ex partner: Not on file Emotionally abused: Not on file Physically abused: Not on file Forced sexual activity: Not on file Other Topics Concern [...] blood loss Rib pain on left side Paralysis of left vocal fold HTN (hypertension) Anemia due to chemotherapy Dysphonia Post-thoracotomy pain syndrome Family History Problem Relation Age of Onset Other (see comment) Father pancreatic disease, unsure if it was cancer Macular degen Mother Objectives: Temp: 36.6 C (97.8 F) BP: 149/80 Pulse: 71 Resp: 18 SpO2: 100 % on Min/Max Temp past 24 hours:No data recorded No intake or output data in the 24 hours ending 01/20/20 1020 Wt. Admission: Weight: 53.5 kg (117 lb 15.1 oz) Wt. Current: Weight: 53.5 kg (117 lb 15 .1 oz) Wt Readings from Last 3 Encounters: 01/13/20 53.5 kg (117 lb 15.1 oz) 10/14/19 54.7 kg (120 lb 9.5 oz) 09/15/19 54.3 kg (119 lb 11.4 oz) Physical Exam: General: The patient is alert and oriented. No acute distress. Eyes: Conjunctiva clear. Sclera anicteric. ENMT: Oropharynx fee of lesions, mucous membranes moist. Low transverse cervical scar is we ll healed. Cardiovascular: Regular rate and rhythm, no rubs, gallops, or murmurs. Lungs: Clear to auscultation and percussion. No audible stridor. Chest: Left lateral thoracotomy scar is well-healed. The Left chest wall remains very tend er to palpation. Extremities: Nontender, no erythema, no edema. Skin: Rosacea over the bridge of the nose. Lymph: No palpable cervical or supraclavicular lymphadenopathy. Neurological: Face symmetric, voice is now normal. Station and gait are without deficit. Muscular/Skeletal: No acute bony tenderness. No evidence of sarcopenia. Psychiatric: Normal mood and affect. Calm and appropriate. Still gets breathy if talking i n long sentences. ECOG Performance Status [] 0 [x] 1 [] 2 []3 [] 4 ECOG [...] Lopez., Beronica Walters., Renaldo Parish., Nico Avery, Yareli Tompkins., Suzanne Moncada., Georgette, P .P.: Toxicity And [...] here or in the Assessment and Plan. Exam: PET CT SKULL BASE TO MID THIGH dated 01/08/2020 10:37 AM History: lung cancer, f/u abnormal CT Comparison: Chest CT 12/22/[address] 07/10/2019 Technique: PET/CT imaging was performed from the skull base through the proximal thighs following the uneventful intravenous administration of 11.28 millicuries of F-18 FDG. The glucose at the time of injection is 107 mg/dL. Injection time is 11:18 AM and scan start time is 12:25 PM. Attenuation corrected, nonattenuation corrected, and PET/CT fused data are reviewed on a multiple modality workstation. A low-dose CT is utilized for attenuation correction and localization. This should not substitute for a diagnostic CT when clinically warranted. Dose: CTDI = 3.36 mGy; DLP = 297.38 mGy per centimeter Findings: PET/CT: Mediastinal background max SUV = 2.18 (image 72). Liver background max SUV = 2.64 (image 113) CT. The irregular nodular opacity in the right apex remains hypometabolic. The maximum SUV today is 1.21 compared to 1.07 on the prior study. There is soft tissue thickening and pleural thickening emanating from the left hilum. This extends anterior, superior, and posterior. It is associated with bronchiectasis. There is diffuse mildly increased metabolic activity throughout this soft tissue. The maximum SUV is 3.63 A similar but much less significant process is seen at the right hilum. This is also hypometabolic with a maximum SUV of about 2. There is a small layering left pleural effusion. The remainder of the metabolic activity is physiologic as seen within the base of the brain, oropharyngeal soft tissues, heart, mediastinum, liver, spleen, kidneys and collecting system. Additional activity is also seen nonfocally throughout the musculoskeletal system and gastrointestinal tract. INCIDENTALS: None of significance. IMPRESSION: Changes at and emanating from the left hilum are most consistent with posttreatment related changes. This extends to include the described nodular area, medially in the left apex. Stable hypometabolic activity in the right apical nodule. Small layering left pleural effusion. No evidence for definite local recurrence or distant metastatic spread of disease. Dictated and Signed by: Cleve Bourgeois MD Electronically signed: 01/09/2020 9:29 AM Pharmacovigilance: Palliative Care: Patient's Medications New Prescriptions No medications on file Modified Medications No medications on file Discontinued Medications No medications on file Requested Prescriptions No prescriptions requested or ordered in this encounter Procedure: Boubacar Mata MD Portions of this chart may have been created with [employer] voice recognition software. Occasi onal wrong-word or sound-alike substitutions may have occurred due to the inherent tripathi itations of voice recognition software. Please read the chart carefully and recognize, using context, where these substitutions have occurred. Winnie Escobedo RN - 01/13/2020 4:40 PM PDT Hematology/Oncology Progress Note [facility] CAROL Menon Pt. Name/Age/: Sussy Allred 69 y.o. 1950 [facility]. Record Number: [id number] Date of admission: 01/13/2020 The patient's primary care provider is Lauryn Stuart PA-C. Identifying Statement: Sussy Allred is a 69 y.o. female [place] [address] [place] [address] [place] [address] with Stage IIIA poorly differentiated adenocarcinoma of [...] 4L and hilar lymph nodes (Stacy, [facility]). Patholog ical specimen # [id number] was notable for a poorly differentiated adenocarcinoma, 3.2 cm w ith lymphovascular invasion (pT2a), and 13/31 lymph nodes positive for regionally metastatic disease (pN2). Post-operative course complicated by left vocal cord paralysis, necessitatin g temporary placement of a G-tube. 8. Cycle #1 [...] of left supraclavicular fossa; no supraclavicular abnormality. 13. Completed adjuvant radiation therapy on April 04, 2019. 14. Cycle #4 pemetrexed/carboplatin April 10, 2019. 15. MRI brain on April 14, 2019; no evidence of metastatic disease. 16. Sniff test negative for diaphragmatic paralysis on June 11, 2019. 17. CT chest with contrast on July 03, 2019 interpreted as radiation pneumonitis-predni sone therapy started. 18. PET CT scan on July 10, 2019- No evidence for local recurrence or metastatic diseas e. 19. Left medialization thyroplasty implant (Augustine Nolan, [facility]) October 09, 2019. Review of Systems: Constitutional: Reports energy levels are improving some. Pt reports ongoing night sweats, states not bad. Reports poor appetite. Denies high fevers, shaking chills, anorexia, nausea , vomiting, or weight loss. Ear, Nose, Mouth, Throat: Pt reports worsening of dysphagia, needs water for every swallow, follow up for this in [place] in February. Does continue complaints tinnitus. Denies odynophag ia. Cardiovascular: Pt reports dyspnea, more with exertion. Patient feels the shortness of pavan th is not increasing. Pt reports continued pain to left chest wall, with progressing to the right, states it is worsening. Denies palpitations or orthopnea. Respiratory: Patient denies cough, hemoptysis, or sputum production. Gastrointestinal: Reports need for stool softner daily to keep regular. Denies abdominal p ain, diarrhea, melena, or bright red blood per rectum. Genitourinary: Denies hematuria or dysuria. Musculoskeletal: Denies joint pain or tenderness. Neurologic: Pt reports decreased in headaches, reports being much more emotional lately. De nies visual changes or numbness/tingling of the extremities. Endocrine: Denies peripheral edema or heat/cold intolerance. Hematologic: Denies spontaneous bruising or bleeding. Integumentary: Reports ongoing continued hair loss. Reports incision to neck continues to heal well with some sensitivity. Denies rash other skin concerns. Pain:Reports pain level 4/10, upper chest. ROS otherwise negative Note: here for follow-up w/ Dr Mata, and to review CT. My chart: Declined Scheduled Medications: Current Outpatient Medications Medication Sig Dispense Refill acetaminophen (TYLENOL) 325 mg tablet Take 325-650 mg by mouth every 6 hours as needed. acyclovir (ZOVIRAX) 400 MG tablet Take 400 mg by mouth Daily. ALPRAZolam (XANAX) 0.5 mg tablet Take 1 tablet by mouth nightly as needed (taking every night.). 90 tablet 2 Arginine 500 MG CAPS Take 2 capsules by mouth 2 times daily. buPROPion (WELLBUTRIN XL) 300 mg 24 hr tablet Take 300 mg by mouth every morning. cilostazol (PLETAL) 50 mg tablet Take 50 mg by mouth Daily. cyanocobalamin (VITAMIN B-12) 1000 MCG tablet Take 500 mcg by mouth Daily. docusate-senna (SENOKOT-S) 50-8.6 mg per tablet Take 1 tablet by mouth Daily. doxycycline (VIBRAMYCIN) 100 mg capsule Take 1 capsule by mouth 2 times daily. estradiol (ESTRACE) 2 MG tablet Take 2 mg by mouth Daily. fentaNYL (DURAGESIC) 25 mcg/hr Place 1 patch onto the skin every 72 hours. Apply skin p atch every three days for pain 10 patch 0 ferrous sulfate (IRON) 28 MG TABS Take 28 mg by mouth Daily. HYDROcodone-acetaminophen (NORCO) 7.5-325 mg per tablet Take one to two tablets orally every 6 hours as needed for pain, maximum 6 tablets a day. 150 tablet 0 lansoprazole (PREVACID) [address] capsule Take 30 mg by mouth Daily. levothyroxine (SYNTHROID) 50 mcg tablet Take 50 mcg by mouth Daily. Misc Natural Products (HIMALAYAN GOJI PO) Take by mouth. Multiple Vitamins-Iron (DAILY-EVANGELINA/IRON/BETA-CAROTENE PO) Take 1 tablet by mouth Daily. Multiple Vitamins-Minerals (HAIR SKIN AND NAILS FORMULA PO) Take 1 tablet by mouth Bal y. nicotine (NICORETTE) 2 mg gum Take 2 mg by mouth as needed. ondansetron (ZOFRAN ODT) 8 mg disintegrating tablet One tablet twice a day for two days after chemotherapy to block nausea 40 tablet 1 oxyCODONE (ROXICODONE) 5 mg tablet Take 1 tablet by mouth every 4 hours as needed. (Karlo e 1-3 tablets by mouth every four hours as needed for moderate pain or severe pain) oxymetazoline (RHOFADE) 1% cream Apply 1 Dose topically Daily. UNABLE TO FIND Sero Vital No current facility-administered medications for this encounter. [...] file Highest education level: Not on file Occupational History Not on file Social Needs Financial resource strain: Not on file Food insecurity: Worry: Not on file Inability: Not on file Transportation needs: Medical: Not on file Non-medical: Not on file Tobacco Use Smoking status: Former Smoker Packs/day: 0.50 Years: 7.00 Pack years: 3.50 Start date: 08/20/2004 Last attempt to quit: 08/20/2011 Years since quittin.4 Smokeless tobacco: Never Used Substance and Sexual Activity Alcohol use: Not Currently Alcohol/week: 7.0 standard drinks Types: 7 Glasses of wine per week Drug use: Never Sexual activity: Not on file Lifestyle Physical activity: Days per week: Not on file Minutes per session: Not on file Stress: Not on file Relationships Social connections: Talks on phone: Not on file Gets together: Not on file Attends orthodox service: Not on file Active member of club or organization: Not on file Attends meetings of clubs or organizations: Not on file Relationship status: Not on file Intimate partner violence: Fear of current or ex partner: Not on file Emotionally abused: Not on file Physically abused: Not on file Forced sexual activity: Not on file Other Topics Concern [...] blood loss Rib pain on left side Paralysis of left vocal fold HTN (hypertension) Anemia due to chemotherapy Dysphonia Post-thoracotomy pain syndrome Family History Problem Relation Age of Onset Other (see comment) Father pancreatic disease, unsure if it was cancer Macular degen Mother Objectives: on Min/Max Temp past 24 hours:No data recorded No intake or output data in the 24 hours ending 01/13/20 1624 Wt. Admission: Wt. Current: Wt Readings from Last 3 Encounters: 10/14/19 54.7 kg (120 lb 9.5 oz) 09/15/19 54.3 kg (119 lb 11.4 oz) 08/25/19 52.8 kg (116 lb 6.5 oz) Physical Exam: General: The patient is alert and oriented. No acute distress. Eyes: Conjunctiva clear. Sclera anicteric. ENMT: Oropharynx fee of lesions, mucous membranes moist. Low transverse cervical scar is we ll healed. Cardiovascular: Regular rate and rhythm, no rubs, gallops, or murmurs. Lungs: Clear to auscultation and percussion. No audible stridor. Chest: Left lateral thoracotomy scar is well-healed. The Left chest wall remains very tend er to palpation. Extremities: Nontender, no erythema, no edema. Skin: Rosacea over the bridge of the nose. Lymph: No palpable cervical or supraclavicular lymphadenopathy. Neurological: Face symmetric, voice is audibly stronger and less hoarse. Station and gait are without deficit. Muscular/Skeletal: No acute bony tenderness. No evidence of sarcopenia. Psychiatric: Normal mood and affect. Calm and appropriate. Still gets breathy if talking i n long sentences. ECOG Performance Status [] 0 [x] 1 [] 2 []3 [] 4 ECOG [...] J. Clin. Oncol.: Niranjan Lopez., Romeo, R.H., Renaldo Parish., May Avery., Turner, TBritni., Coral, EMarvaT., Georgette, P .P.: Toxicity And Response [...] here or in the Assessment and Plan. No new laboratory or imaging data performed for this encounter. Pharmacovigilance: Palliative Care: Patient's Medications New Prescriptions No medications on file Modified Medications No medications on file Discontinued Medications No medications on file Requested Prescriptions No prescriptions requested or ordered in this encounter Procedure: Winnie Cardenas RN Portions of this chart may have been created with [employer] voice recognition software. Occasi onal wrong-word or sound-alike substitutions may have occurred due to the inherent tripathi itations of voice recognition software. Please read the chart carefully and recognize, using context, where these substitutions have occurred. documented in this encounter Miscellaneous Notes Assessment & Plan Note - Boubacar Mata MD - 01/20/2020 10:09 AM PDTAssociated Prob kati(s): Lung cancer (HCC)Sussy Allred returned to clinic on 01/13/2020 with no one for fo llow-up of Lung Cancer, left vocal cord paralysis, and post-thoracotomy pain syndrome. Interval history; Katharina is no longer working. Review of systems; Breathlessness is better. Chest wall pain is still rated at 4/10. Physical exam; Voice is no longer hoarse. Clinical Data; PET/CT scan from January 08, 2020 demonstrated no evidence of recurrent disease. Assessment; Stage IIIA, adenocarcinoma of the left lung, without evidence of recurrence at one year. Left vocal cord paralysis, resolved following left medialization thyroplasty with implant. Post-thoracotomy pain syndrome-stable. Clear outline of the Treatment Plan; Katharina is planning to continue lung cancer follow up exc lusively with Dr. Fiona Anne. Katharina is planning to transfer narcotic management to [facility] Stuart; current plan is topical fentanyl 25 mcg/hr, #10 for 30 days, one patch topical every 72 hours, and hydrocodone/APAP #150 for 30 days, with plan to taper quantity gradually. Timing of follow-up imaging; to be managed by Dr. Anne. Follow Up; follow up in medical oncology is open. documented in t his encounter Plan of Treatment +--------+ + + + + | Date | Type | Specialty | Care Team | Description | +--------+ + + + + | 04/20/ | Appointment | Radiation Oncology | Treva Ortega | | | 2019 | | | DEISY Hernandez [address] | | | | | | [address] | | | | | | [place] [address] | | | | | | [phone] | | | | | | | | +--------+ + + + + documented as of this encounter Visit Diagnoses + + | Diagnosis | + + | Malignant neoplasm of left lung, unspecified part of lung (HCC) | + + documented in this encounter"
--- OUTSIDE RECORDS SUMMARY | ~2020-03-30 | XMS | Encounter Summary ---
Demographics + + + | Address | [address] | | | [place] [address] | + + + | Home Phone [...] Author | [facility] | | | and Jakobana | + + + | Organization | [facility] [...] Team Providers + +------+ + | Care Chocolate Molder Name | Role | Phone | + [...] Pharmacist / | Diagnoses | [facility] | Hasalfred, | | | | Oncology | Malignant | Medical | Renee Olvera, | | | | | neoplasm of | Oncology | PharmD [address] | | | | | upper lobe | Clinic [address] | | | | | of left lung | [address] | [place], | | | | | (HCC) | [place], | [place] [address] | | | | | Procedures | [place] | Phone: | | | | | [address] | [address] | [phone] | | | | | | Phone: | Fax: | | | | | | [phone] | [phone] | | | | | | Fax: | | | | | | | [phone] | | +--------+--------+ + + + + Encounter Details +--------+ + + + + | Date | Type | Department | Care Team | Description | +--------+ + + + + | 02/13/ | Hospital | [facility] | Adolfo, | Aspiration | | 2019 | Encounter | [facility] | Boubacar Daniels MD [address] | pneumonitis (HCC) | | | | [facility] [address] [facility] | (Primary Dx); | | | | [address] [place] | [address], [place] | Leukocytosis, | | | | [place] [address] | [id number] | unspecified type; | | | | [phone] | | Malignant neoplasm | | | | | | of upper lobe of | | | | | | left lung (HCC); | | | | | | Acute respiratory | | | | | | distress syndrome | | | | | | (ARDS) (HCC); | | | | | | Postoperative [...] + + + | Blood Pressure | 153/63 | 2019 3:18 PM | | | | | PDT | | + + + + + | Pulse | 66 | 2019 3:18 PM | | | | | PDT | | + + + + + | Temperature | 35.6 C (96 F) | 2019 3:18 PM | | | | | PDT | | + + + + + | Respiratory Rate | 16 | 2019 3:18 PM | | | | | PDT | | + + + + + | Oxygen Saturation | 95% | 2019 3:18 PM | | | | | PDT | | + + + + + | Inhaled Oxygen | - | - | | | Concentration | | | | + + + + + | Weight | 53.7 kg (118 lb 6.2 | 2019 3:18 PM | | | | oz) | [...] encounter Progress Notes Boubacar Mata MD - 2019 3:21 PM PDTFormatting of this note might be differe nt from the original. Hematology/Oncology Progress Note [facility] [place] Pt. Name/Age/: Sussy Allred 69 y.o. 1950 Med. Record Number: [id number] Date of admission: 2019 The patient's primary care provider is Lauryn Stuart PA-C. Identifying Statement: Sussy Allred is a 69 y.o. female from [address] [place] [address] [place] [address] with Stage IIIA poorly differentiated adenocarcinoma of [...] dysphagia. - Strict NPO, consider re consulting [facility] today pending course and ENT recs - monitor for fevers and worsening respiratory status - pulmonary toilet, IS - wean O2 as able Leukocytosis Overview Last Assessment & Plan: Suspect [...] nodes (SUZE Kumar). Patholog ical specimen # [id number] was notable for a poorly differentiated adenocarcinoma, 3.2 cm w ith lymphovascular invasion (pT2a), and 13/31 lymph nodes positive for regionally metastatic disease (pN2). Post-operative course complicated by vocal cord paralysis, necessitating tem porary placement of a G-tube. 8. Cycle #1 pemetrexed/carboplatin on February 05, 2019. 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 Interval history is notable for the fact that Dr. Anne has advanced her plans for adjuva nt external beam radiation therapy to coincide with the initiation of cycle #2 of pemetrexed /carboplatin. Review of systems is notable for fatigue, anorexia, weight loss, dysgeusia, dysphagia, dysp carly on exertion, cough, neck pain, headaches, blurry vision, and post-thoracotomy pain rated at 6/10. Clinical exam is notable for the fact that her voice remains hoarse. Laboratory exam is notable for grade 1 anemia, without leukopenia or thrombocytopenia. Imaging is notable for a treatment planning CT scan on 2019 re-demonstrating a shannan picious right upper lobe mass, that was determined to be benign based upon it's hypometaboli sm on her October 23, 2018 PET/CT scan. Assessment; Stage IIIA adenocarcinoma of the left lung status post R0 resectoin December 04 019 and one cycle of carboplatin/pemetrexed February 05, 2019 which was tolerated without grade 2 or higher adverse effects. Plan; return on February 27, 2019 for cycle #2 of a planned four cycles of adjuvant pemetrexed/ carboplatin. Postoperative anemia due to acute blood loss Overview Last Assessment & Plan: - monitor chest tube output - CBC daily Review of Systems: Constitutional: Reports low energy levels. Reports poor appetite, weight loss of approximat rickey 2 lbs. Taste changes. Denies fatigue. Denies high fevers, shaking chills, anorexia, naus ea, vomiting, weight loss, or night sweats. Appetite without changes. Ear, Nose, Mouth, Throat: Reports dysphagia since surgery, unchanged. Reports voice "rasp, maybe deeper or more hoarse." Denies odynophagia, or tinnitus. Cardiovascular: Reports WILLIS, SOB, and poor activity tolerance. Reports chest pain, attribut es to possibly being surgical pain. Denies palpitations or orthopnea. Palpitations reported . Respiratory: Reports ongoing dry cough. Denies hemoptysis, or sputum production. Gastrointestinal: Denies abdominal pain, constipation, diarrhea, melena, or bright red bloo d per rectum. Genitourinary: Denies hematuria or dysuria. Musculoskeletal: Reports ongoing neck pain. Neurologic: Reports headaches, "the past week now." Reports visual changes since surgery, L eye blurring/"absent areas." Denies numbness/tingling of the extremities. States recently f eeling dizzy. Endocrine: Denies peripheral edema or heat/cold intolerance. Hematologic: Denies spontaneous bruising or bleeding. Integumentary: Denies rash, wounds or other skin concerns. Pain: Reports surgical site pain, rates at 6/10. Reports ongoing neck pain, taking oxycodon e QID w/ relief per pt Note: here for f/u w/ Dr Mata My chart: Declined Review of systems as [...] PO) Take 2 oz by mouth Daily. mupirocin (BACTROBAN) 2% ointment apply to affected area 3 times per day for 3-5 days, reevaluate if no response 22 g 0 non-formulary medication Take 3 oz [...] was cancer Macular degen Mother Objectives: Temp: 35.6 C (96 F) BP: 153/63 Pulse: 66 Resp: 16 SpO2: 95 % on Min/Max Temp past 24 hours:No data recorded No intake or output data in the 24 hours ending 03/01/19 1240 Wt. Admission: Weight: 53.7 kg (118 lb 6.2 oz) Wt. Current: Weight: 53.7 kg (118 lb 6.2 oz) Wt Readings from Last 3 Encounters: 02/27/19 54.3 kg (119 lb 11.4 oz) 02/27/19 54.3 kg (119 lb 11.4 oz) 02/13/19 53.7 kg (118 lb 6.2 oz) Physical Exam: General: The patient is [...] Am. J. Clin. Oncol.: Niranjan Lopez., Romeo, RMarvaH., Renaldo Parish., May Avery., Turner, T.Christiano., Coral, E.T., Georgette, P .P.: Toxicity And [...] for SUSSY ALLRED" ( ) as of 03/01/2019 12:05 Ref. Range 2019 13:23 WBC Latest Ref Range: 4.0 - 11.0 K/uL 5.3 RBC COUNT Latest Ref Range: 3.70 - 5.20 M/uL 3.53 (L) Hemoglobin Latest Ref Range: 11.5 - 16.0 g/dL 10.2 (L) Hematocrit Latest Ref Range: 34.0 - 47.0 % 32.0 (L) MCV Latest Ref Range: 83.0 - 101.0 fL 90.7 MCH Latest Ref Range: 28.0 - 35.0 pg 28.9 MCHC Latest Ref Range: 32.0 - 36.0 g/dL 31.9 (L) RDW-CV Latest Ref Range: <15.0 % 14.9 RDW-SD Latest Ref Range: 35.1 - 46.3 fL 50.0 (H) Platelet Count Latest Ref Range: 140 - 440 K/uL 240 MPV Latest Ref Range: 6.5 - 12.4 fL 8.7 % nRBC Latest Ref Range: 0 - 2 per 100 WBCs 0 Absolute nRBC Latest Ref Range: 0.00 - 0.01 K/uL 0.00 Absolute Neutrophils Latest Ref Range: 1.80 - 8.50 K/uL 3.70 Absolute Lymphocytes Latest Ref Range: 0.60 - 3.20 K/uL 1.13 Absolute Monocytes Latest Ref Range: 0.00 - 1.00 K/uL 0.35 Absolute Eosinophils Latest Ref Range: 0.00 - 0.40 K/uL 0.12 Absolute Basophils Latest Ref Range: 0.00 - 0.10 K/uL 0.00 Absolute Immature Granulocytes Latest Ref Range: 0.00 - 0.03 K/uL 0.03 % Neutrophils Latest Ref Range: 45.0 - 82.0 % 69.3 % Lymphocytes Latest Ref Range: 20.0 - 45.0 % 21.2 % Monocytes Latest Ref Range: 4.0 - 12.0 % 6.6 % Eosinophils Latest Ref Range: 0.0 - 5.0 % 2.3 % Basophils Latest Ref Range: 0.0 - 1.0 % 0.0 % Immature Granulocytes Latest Ref Range: 0.0 - 0.4 % 0.6 (H) Na Latest Ref Range: 136 - 145 mmol/L 135 (L) K Latest Ref Range: 3.4 - 5.1 mmol/L 4.4 Chloride Latest Ref Range: 98 - 107 mmol/L 102 Carbon dioxide Latest Ref Range: 20 - 31 mmol/L 24 Anion Gap Latest Ref Range: 3 - 16 mmol/L 9 Glucose Latest Ref Range: 60 - 106 mg/dL 95 BUN Latest Ref Range: 9 - 23 mg/dL 16 Creatinine Latest Ref Range: 0.55 - 1.02 mg/dL 0.86 BUN/Creatinine Ratio Unknown 18.6 Albumin Latest Ref Range: 3.2 - 4.8 g/dL 3.9 Albumin/Globulin Ratio Latest Ref Range: 0.8 - 1.9 1.7 Total Protein Latest Ref Range: 5.7 - 8.2 g/dL 6.2 EGFR IF NOT Latest Ref Range: >=60 mL/min/1.73m2 >60 Calcium Latest Ref Range: 8.7 - 10.4 mg/dL 9.0 ALK PHOS Latest Ref Range: 46 - 116 U/L 71 ALT (SGPT) (REF) Latest Ref Range: 10 - 49 U/L 16 AST (SGOT) (REF) Latest Ref Range: 0 - 34 U/L 27 Bilirubin Total (Calculated) Latest Ref Range: 0.3 - 1.2 mg/dL 0.3 Globulin Latest Ref Range: 2.1 - 3.8 g/dL 2.3 Pharmacovigilance: Palliative Care: Procedure: Katharina was scheduled for her pre-treatment vitamin B12 injection at the [facility] in [place], [place]. Boubacar Mata MD Portions of this chart may have been created with [employer] voice recognition software. Occasi onal wrong-word or sound-alike substitutions may have occurred due to the inherent tripathi itations of voice recognition software. Please read the chart carefully and recognize, using context, where these substitutions have occurred. documented in this encounter Miscellaneous Notes Assessment & Plan Note - Adolfo, Boubacar C, MD - 03/01/2019 12:19 PM PDTAssociated Prob kati(s): Lung cancer (HCC)Sussy Allred returned to clinic alone on 2019 for follow-u p, cycle #1 day #9 of adjuvant pemetrexed/carboplatin for Stage IIIA adenocarcinoma of the l eft lung, status post R0 resection on December 04, 2018. Interval history is notable for the fact that Dr. Anne has advanced her plans for adjuva nt external beam radiation therapy to coincide with the initiation of cycle #2 of pemetrexed /carboplatin. Review of systems is notable for fatigue, anorexia, weight loss, dysgeusia, dysphagia, dysp carly on exertion, cough, neck pain, headaches, blurry vision, and post-thoracotomy pain rated at 6/10. Clinical exam is notable for the fact that her voice remains hoarse. Laboratory exam is notable for grade 1 anemia, without leukopenia or thrombocytopenia. Imaging is notable for a treatment planning CT scan on 2019 re-demonstrating a shannan picious right upper lobe mass, that was determined to be benign based upon it's hypometaboli sm on her October 23, 2018 PET/CT scan. Assessment; Stage IIIA adenocarcinoma of the left lung status post R0 resectoin December 04 019 and one cycle of carboplatin/pemetrexed February 05, 2019 which was tolerated without grade 2 or higher adverse effects. Plan; return on February 27, 2019 for cycle #2 of a planned four cycles of adjuvant pemetrexed/ carboplatin. docu mented in this encounter Plan of Treatment +--------+ [...] BLOOD | | | | | | [place] [address] | | | | | | [phone] | | | | | | | | +--------+ + + + + documented as of this encounter Procedures + +--------+ + + + | Procedure Name | Priori | Date/Time | Associated Diagnosis | Comments | | | ty | | | | + +--------+ + + + | CBC WITH | STAT | 2019 | Aspiration | Results for this | | DIFFERENTIAL | | 1:23 PM | pneumonitis (HCC) | procedure are in the | | | | PDT | Leukocytosis, | results section. | | | | | unspecified type | | | | | | Malignant neoplasm | | | | | | of upper lobe of | | | | | | left lung (HCC) | | + +--------+ + + + | COMPREHENSIVE | STAT | 2019 | Aspiration | Results for this | | METABOLIC PANEL | | 1:23 PM | pneumonitis (HCC) | procedure are in the | | | | PDT | Leukocytosis, | results section. | | | | | unspecified type | | | | | | Malignant neoplasm | | | | | | of upper lobe of | | | | | | left lung (HCC) | | + +--------+ + + + documented in this encounter Results Comprehensive Metabolic Panel (2019 1:23 PM PDT) + + + + + + | Component | Value | Ref Range | Performed | Pathologist | | | | | At | Signature | + + + + + + | Na | 135 (L) | 136 - 145 | [facility] | | | | | mmol/L | [facility] | | | | | | [facility] | | | | | [facility] - | | | | | | [facility]ATORY | | + + + + + + | K | 4.4 | 3.4 - 5.1 | [facility] | | | | | mmol/L | [facility] | | [facility] | | | [facility] | | | | | | [facility] - | | | | | | LAB[facility]ATORY | | + + + + + + | Cl | 102 | 98 - 107 mmol/L | [facility] [...] + + + + | Glucose | 95 | 60 - 106 mg/dL | [facility] | | | | | | [facility] | | | | | | [facility] | | | | | | [facility] - | | | | | | LAB[facility]ATORY | | + + + + + + | BUN | 16 | 9 - 23 mg/dL | [facility] | | | | | | [facility] | | | | | | [facility] | | | | | | [facility] - | | | | | | LAB[facility]ATORY | | + + + + + + | Creatinine | 0.86 | 0.55 - 1.02 | [facility] | | | | | mg/dL | [facility] | | | | | | [facility] | | | | | | [facility] - | | | | | | LABORATORY | | + + + + + + | eGFR, | >60Comment: GLOMERULAR | >=60 | [facility] | | | non- | FILTRATION | mL/min/1.73m2 | [facility] | | | [place] | RATE,ESTIMATED | | MEDICAL | | | | mL/min/1.07k4Grnw than | | CENTER - | | [...] + + + + | Calcium | 9.0 | 8.7 - 10.4 | [facility] | | | | | mg/dL | [facility] | | | | | | [facility] | | | | | | [facility] - | | | | | | LABORATORY | | + + + + + + | Albumin | 3.9 | 3.2 - 4.8 g/dL | [facility] [...] + + + + | Total | 6.2 | 5.7 - 8.2 g/dL | [facility] | | | Protein | | | [facility] | | | | | | [facility] | | | | | | [facility] - | | | | | | LABORATORY | | + + + + + + | AST | 27 | 0 - 34 U/L | [facility] [...] + + + + | Alkaline | 71 | 46 - 116 U/L | [facility] | | | Phosphatase | | | [facility] | | | | | | [facility] | | | | | | [facility] - | | | | | | LABORATORY | | + + + + + + | Globulin | 2.3 | 2.1 - 3.8 g/dL | [facility] [...] + + + + | BUN/Creatin | 18.6 | | [facility] | | | ine [...] | + + + + + | [facility] | [address] | [place] | [phone] | | [facility] | | [address] | | | - LABORATORY | | | | + + + + + CBC with Differential (2019 1:23 PM PDT) + + + + + + | Component | Value | Ref Range | Performed | Pathologist | | | | | At | Signature | + + + + + + | White Blood | 5.3 | 4.0 - 11.0 K/uL | [facility] | | | Cells | | | [facility] | | | | | | [facility] | | | | | | [facility] - | | | | | | LABORATORY | | + + + + + + | Red Blood | 3.53 (L) | 3.70 - 5.20 | [facility] [...] | | | | g/dL | [facility] | | | | | | [facility] | | | | | | [facility] - | | | | | | LABORATORY | | + + + + + + | Hematocrit | 32.0 (L) | 34.0 - 47.0 % | [facility] | | | | | | [facility] | | | | | | [facility] | | | | | | [facility] - | | | | | | LABORATORY | | + + + + + + | MCV | 90.7 | 83.0 - 101.0 fL | [facility] | | | | | | [facility] | | [facility] | | [facility] | | | | | | [facility] - | | | | | | LABORATORY | | + + + + + + | MCH | 28.9 | 28.0 - 35.0 pg | [facility] | | | | | | [facility] | | | | | | [facility] | | | | | | [facility] - | | | | | | LABORATORY | | + + + + + + | MCHC | 31.9 (L) | 32.0 - 36.0 | [facility] | | | | | g/dL | [facility] | | | | | | [facility] | | | | | | [facility] - | | | | | | LABORATORY | | + + + + + + | RDW-CV | 14.9 | <15.0 % | [facility] | | | | | | [facility] | | | | | | [facility] | | | | | | [facility] - | | | | | | LABORATORY | | + + + + + + | RDW-SD | 50.0 (H) | 35.1 - 46.3 fL | [facility] | | | | | | [facility] | | | | | | [facility] | | | | | | [facility] - | | | | | | LAB[facility]ATORY | | + + + + + + | Platelet | 240 | 140 - 440 K/uL | [facility] | | | Count | | | [facility] | | | | | | [facility] | | | | | | [facility] - | | | | | | LABORATORY | | + + + + + + | MPV | 8.7 | 6.5 - 12.4 fL | [facility] | | | | | | [facility] | | | | | | [facility] | | | | | | [facility] - | | | | | | LAB[facility]ATORY | | + + + + + + | % | 69.3 | 45.0 - 82.0 % | [facility] | | | Neutrophils | | | [facility] | | | | | | [facility] | | | | | | [facility] - | | | | | | LABORATORY | | + + + + + + | % | 21.2 | 20.0 - 45.0 % | [facility] | | | Lymphocytes | | | [facility] | | | | | | [facility] | | | | | | [facility] - | | | | | | LABORATORY | | + + + + + + | % Monocytes | 6.6 | 4.0 - 12.0 % | [facility] | | | | | | [facility] | | | | | | [facility] | | | | | | [facility] - | | | | | | LABORATORY | | + + + + + + | % | 2.3 | 0.0 - 5.0 % | [facility] [...] + + + | % Immature | 0.6 (H)Comment: | 0.0 - 0.4 % | [...] + + + + | Absolute | 3.70 | 1.80 - 8.50 | [facility] | | | Neutrophils | | K/uL | [facility] | | | | | | [facility] | | | | | | [facility] - | | | | | | LABORATORY | | + + + + + + | Absolute | 1.13 | 0.60 - 3.20 | [facility] | | | Lymphocytes | | K/uL | [facility] | | | | | | [facility] | | | | | | [facility] - | | | | | | LABORATORY | | + + + + + + | Absolute | 0.35 | 0.00 - 1.00 | [facility] | | | Monocytes | | K/uL | [facility] | | | | | | [facility] | | | | | | [facility] - | | | | | | LABORATORY | | + + + + + + | Absolute | 0.12 | 0.00 - 0.40 | [facility] | [...] | + + + + + | [facility] | [address] | [place], [place] | [phone] | | [facility] | | [address] | | | - LABORATORY | | | | + + + + + documented in this encounter Visit Diagnoses + + | Diagnosis | + + | Aspiration pneumonitis (HCC) - Primary Pneumonitis due to inhalation of food or | | vomitus | + + | Leukocytosis, unspecified type | + + | Malignant neoplasm of upper lobe of left lung (HCC) | + + | Acute respiratory distress syndrome (ARDS) (HCC) Other pulmonary insufficiency, not | | elsewhere classified, following trauma and surgery | + + | Postoperative anemia due to acute blood loss Acute posthemorrhagic anemia | + + documented in this encounter
--- OUTSIDE RECORDS SUMMARY | ~2020-03-30 | XMS | Encounter Summary ---
Demographics + + + | Address | [address] | | | [place] [address] | + + + | Home Phone | | + + + | Preferred Language | Unknown | + + + | Marital Status | Single | + + + | Yazidi Affiliation | NRP | + + + [...] Team Providers + +------+ + | Care Maternal Child Nurse Name | Role | Phone | + [...] + + + | Closed | | | Diagnoses | Tormoen, | [place]ert, | | | | | Malignant | Satnam Mckinney MD | Fiona Parsons MD | | | | | neoplasm of | [address] | [address] | | | | | upper lobe | [address] | [address] | | | | | of left lung | [address] | [place], | | | | | ([facility]) | [place], [place] | [place] [address] | | | | | Procedures | [address] | Phone: | | | | | CONSULT TO | Phone: | [phone] | | | | | RADIATION | [phone] | Fax: | | | | | ONCOLOGY | Fax: | [phone] | | | | | | [phone] | | +--------+--------+ + + + + Reason for Visit + + + | Reason | Comments | + + + | Consultation | | + + + Consultation (Routine) +--------+--------+ + [...] neoplasm of | [address]C [address] [facility] | | | | | lung, | [facility] | [facility] | | | | | unspecified | [facility] | Rd | | | | | laterality, | Rd | [place], [place] | | | | | unspecified | [place], [place] | [address] | | | | | part of lung | [address] | Phone: | | | | | (HCC) | Phone: | [phone] | | | | | Procedures | [phone] | Fax: | | | | | CONSULT TO | Fax: | [phone] | | | | | RADIATION | [phone] | | | | | | ONCOLOGY | | | +--------+--------+ + + + + Encounter Details +--------+---------+ + + + | Date | Type | Department | Care Team | Description | +--------+---------+ + + + | 01/24/ | Office | Radiation Oncology | Dveen Givens, | Malignant neoplasm | | 2019 | Visit | at [facility] [address] | [address] | of upper lobe of | | | | [address] | [facility] [address] | left lung (HCC) | | | | Pavilion, 4th floor | [place], [place] | (Primary Dx) | | | | [place], [place] | [address] | | | | | | [phone] | | | | | [phone] | | | +--------+---------+ + + + [...] + + + | Blood Pressure | 135/64 | 01/24/2019 1:07 PM | | | | | PDT | | + + + + + | Pulse | 86 | 01/24/2019 1:07 PM | | | | | PDT | | + + + + + | Temperature | 36.3 C (97.4 F) | 01/24/2019 1:07 PM | | | | | PDT | | + + + + + | Respiratory Rate | 20 | 01/24/2019 1:07 PM | | | | | PDT | | + + + + + | Oxygen Saturation | 100% | 01/24/2019 1:07 PM | | | | | PDT | | + + + + + | Inhaled Oxygen | - | - | | | Concentration | | | | + + + + + | Weight | 55.3 kg (122 lb) | 01/24/2019 1:07 PM | | | | | PDT | | + + + + + | Height | - | - | | + + + + + | Body Mass Index | 20.94 | 01/24/2019 9:03 AM | | | [...] + + documented as of this encounter Patient Instructions Patient Instructions Satnam Davenport MD - 01/24/2019 1:30 PM PDTMs. Allred Nice to meet you today. We encourage you to follow-up with the Medical Oncology team in [place] to discuss star ting your adjuvant chemotherapy. We have placed a referral to [facility] in [facility] to the Radiation Oncology Department. Perhaps Dr. Mata can help get things arranged when you meet him. If not, please call our department at [phone] and we can try to help with the referral. Please let us know when you are back in town so we can follow-up at the same time Dr. Kami long is planning to see you. documented in this encounter Progress Notes Deven Givens MD - 01/24/2019 1:30 PM PDTAttending Physician Teaching Statement Identification: 68 y.o. female with a pT2a N2/stage IIIA LULobe NSCLCancer, s/p LULobectomy , sleeve resection, multi-station mediastinal theresa positivity, w/LVI+, PNInvasion+; negativ e margins. We have been asked to render an opinion regarding radiotherapy for Ms. Sussy Allred. I performed a history and physical examination of the patient and discussed her management wi th the resident, Dr. Davenport. I have reviewed the resident s note and have entered my fin dings directly into the resident's consult note above. We spent a total of 60 minutes on this consultation with Ms. Allred, of which >50% of the ti me was spent counseling her on radiotherapy treatment options and coordination of patient ca re. Deven Givens Jr., MD Attending Physician [facility] Radiation Medicine Service Kris Jimenez R N - 01/24/2019 1:30 PM PDTNursing Note: Met with Sussy Allred today. The patient is here today to be seen by Dr. Givens and Mary Martinez in consultation for consideration of radiotherapy options. The pt is alert and o riented, and walks with a steady gait. Patient is accompanied by herself. The purpose and f low of the consult visit was reviewed with the pt. The pt was given the Introduction to the [facility] Radiation Oncology Department pt information handout for review. [employer] l video was started as a visual aid for the patient.The patient lives in [facility], and will drive herself to treatments. Transportation back-up is available if necessary. Patient states they do not have an advance directive. Patient was offered advance directive information. Requested the patient bring a copy of the advance directive to their next appo intment. 10 minutes were spent in face to face discussion and teaching during this encounter. Satnam Santiago MD - 01/24/2019 1:30 PM PDT RADIATION ONCOLOGY CONSULTATION Requesting Physician: Manoj Kumar MD Identification/Chief Complaint: Sussy Allred is a 68 year old female with recently rese cted pT2aN2 adenocarcinoma of the lung. HPI: 5 pack-year smoking history. Developed supraclavicular swelling in her neck prompting a CXR in August. CXR showed bilateral pulmonary nodules 10/09/18. Follow-up CT chest 10/11/18 reve aled 1.4 cm nodule in RUL and 1.6 cm nodule in CODY as well as 1.7 cm AP window enlarged lymp h node, 1.[address] PET/CT performed 10/23/2018 showed uptake in the CODY nodule, AP an d hilar nodes. MRI 11/26/2018 showed CORNELIO. Ms. Allred met with Dr. Kmuar on 11/22 who ordered completion staging studies and discussio n at tumor board. Patient underwent flexible bronchoscopy on 12/04 with FNA of Level 4 and 7 which were negative for malignancy, and subsequently underwent left thoracoscopy, left muscl e-sparing thoracotomy, left upper lobectomy with sleeve resection of airway and pulmonary ar vero with pulmonary artery plasty with pericardial patch, mediastinal lymph node dissections level 5, 6, 7, 9, L, 4L and hilar lymph nodes. Final pathology revealed lymph node involvement at multiple levels including level 7, L hil ar 10 and 11, AP windown and Level 5-6 and level 3 lymph nodes - pT2aN2 Stage IIIA with R0 r esection. Ms. Allred met with Dr. Barber on 01/09 who discussed her pathology results and indication for adjuvant chemtherapy. She will pursue this closer to her home in [place], [place]. The patient is being seen today in consultation for consideration of radiotherapy treatment options. Since surgery, Katharina has been doing poorly. She has had laryngeal problems since surgery, si gnificant pain associated with prophylactic PEG tube placement. No longer smoking. Increased her oral intake in the past week with some weight regain associated with that. Feels short of breath most of the time, has not been adherent to exercise recommendations due to pain. T aking 7.5 mg oxycodone 4x/day with no associated constipation. Her pain is currently a 7/10. 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 Medications: Current Outpatient Medications Medication acetaminophen 325 mg oral tablet albuterol 90 mcg/actuation inhalation HFA aerosol inhaler ALPRAZolam 0.25 mg oral tablet buPROPion XL 300 mg oral tablet extended release 24 hr cilostazol 50 mg oral tablet cyanocobalamin 1,000 mcg oral tablet doxycycline hyclate 100 mg oral capsule estradiol 2 mg oral tablet Lactobacillus acidophilus (PROBIOTIC ACIDOPHILUS ORAL) lansoprazole 30 mg oral capsule,delayed release(DR/EC) Lidocaine 4 % topical adhesive patch,medicated nicotine 14 mg/24 hr transdermal patch 24 hour oxyCODONE (immediate release) 5 mg oral tablet QVAR REDIHALER 40 mcg/actuation inhalation HFA aerosol breath activated senna-docusate 8.6-50 mg oral tablet SYNTHROID 50 mcg oral tablet triamterene-hydrochlorothiazide 37.5-25 mg oral tablet No current facility-administered medications for this visit. Allergies: Allergies Allergen Reactions Ketorolac Anaphylaxis Latex Rash Social History: Tobacco use: Social History Tobacco Use Smoking Status Former Smoker Types: Cigarettes Smokeless Tobacco Never Used Alcohol use: reports that she drinks alcohol. Family History: Family History Problem Relation Cancer Neg Hx Movement Disorder Neg Hx Thyroid disease Neg Hx REVIEW OF SYSTEMS: The [facility] Radiation Oncology Questionnaire was completed by the patient a nd reviewed with the patient. No prior history of radiation therapy. No pacemaker, history of radiation or known contraindications to RT. Remainder of ROS is otherwise negative excep t as reported in HPI, PMH and PSH. PHYSICAL EXAM: General: pleasant, no acute distress, alert and oriented Karnofsky Performance Status: 70% Vitals: BP 135/64 (BP Location: Right upper arm, Patient Position: Sitting) | Pulse 86 | Temp 36.3 C (97.4 F) (Oral) | Resp 20 | Wt 55.3 kg (122 lb) | SpO2 100% | BMI 20.94 kg/m | BSA 1.58 m Pain Score: HEENT: NC/AT, anicteric, EOMI. Lymph: No cervical, supraclavicular adenopathy Chest: decreased on CODY, vesicular breath sounds elsewhere CV: RRR Abd: soft, NTND Neuro: nonfocal LABORATORY: Lab Results Component Value Date NA 137 12/11/2018 K 4.1 12/11/2018 CL 102 12/11/2018 BICARB 29 12/11/2018 BUN 20 12/11/2018 CR 0.59 (L) 12/11/2018 GLU 122 (H) 12/14/2018 CA 7.9 (L) 12/11/2018 Lab Results Component Value Date WBC 12.95 (H) 12/11/2018 HB 8.5 (L) 12/11/2018 HCT 26.7 (L) 12/11/2018 PLT 385 12/11/2018 MCV 101.1 (H) 12/11/2018 RDW 46.7 (H) 12/11/2018 IMAGING: CT Chest 10/11/18 PET/CT 10/23/2018 EXAM: [facility] professional interpretation of outside study: OUTSIDE CHEST READ DATE OF IMAGE ACQUISITION: 10/11/2018 DATE OF [facility] INTERPRETATION: 12/25/2018 HISTORY: Poorly differentiated invasive adenocarcinoma COMPARISON: Chest radiograph 10/09/2018, PET CT 10/23/2018 TECHNIQUE: Contrast-enhanced images of the chest were acquired. 72 mL of Isovue-370 was adm inistered via power injector via a 22-gauge right antecubital peripheral IV. Images reviewed in axial, sagittal and soft tissue planes. Images reviewed in bone, lung and soft tissue window. Thick section maximal intensity projection (MIP) images were created on a separate w orkstation. FINDINGS: Within the apical right upper lobe and there is a 22 x 25 x 22 mm mixed groundglass and kelly id pulmonary nodule (axial lung 54, coronal 71). It contains a 6 x 12 x 5 mm solid component . Azygos lobe is incidentally noted, with tethering of the azygos fissure. The solid compone nt of this lesion demonstrated faint radiotracer uptake on recent PET/CT. Within the apical posterior left upper lobe there is a 20 x 18 x 23 mm solid pulmonary nodu le with irregular/spiculated borders and shape. There is a possible area of cavitation along its inferior margin (axial lung 65, sagittal 57). This lesion demonstrated avid radiotracer uptake on PET/CT of 10/23/2018 There is mild tethering of the left major fissure by this lesi on, which directly abuts the left major fissure and distorts its. No definite soft tissue ex tension beyond/through the left major fissure. There is an adjacent 3 mm satellite nodule ve rsus lobulation (axial lung 66). More inferiorly within the left upper lobe there is a groundglass nodule measuring 5 mm (ax ial lung 78). Within the subpleural left lower lobe there is a 2 x 3 x 5 mm pulmonary nodule (axial lung 162, sagittal 24). Possible punctate left lower lobe pulmonary nodule (axial hallie ng 92). Punctate right upper lobe pulmonary nodule observed (axial lung 70). A right lower lobe inferior accessory fissure is incidentally noted (axial lung 135). A sma ll amount of pericardial fluid surrounds the right inferior pulmonary vein (axial soft tissu e 117). There are several peripherally enhancing centrally necrotic l aortopulmonary window lymph nodes (axial soft tissue 81, 87). These lymph nodes demonstrated avid radiotracer upta ke on PET/CT of 10/23/2018. Additional areas of asymmetric left hilar and infrahilar tissue do es not meet size criteria (axial soft tissue 92). Additional thoracic lymph nodes do not komal t size criteria for pathologic enlargement. No pleural effusion or pneumothorax. The soft tissues are unremarkable. No cardiac chamber enlargement. Trivial, likely physiologic pericardial fluid. Visualized portions of the upper abdomen are unremarkable. There is no acute fracture, malalignment or focal osseous destruc tion. Chronic degenerative changes involving the superior surface of the right first rib are observed with pseudoarthrosis between the inferior clavicle and first rib (sagittal 115). IMPRESSION: 1. Spiculated left upper lobe pulmonary nodule with necrotic aortopulmonary window adenopat hy, consistent with poorly differentiated adenocarcinoma. 2. Mixed solid and subsolid right upper lobe pulmonary nodule, likely additional separate s ynchronous adenocarcinoma. Lack of FDG avidity is a known phenomenon with adenocarcinoma les ions. PET/CT 10/24/2018 PATHOLOGY: Final Pathologic Diagnosis A. Lymph node, level [...] ? AJCC pathologic stage (8th edition): pT2aN2 ASSESSMENT: Sussy Allred is a 68 y.o. female with [id number] Stage IIIA adenocarcinoma of the lung s/p R0 resection. PLAN: The risks and benefits of radiation therapy were discussed in detail with the patient. We discussed NCCN recommendations for patients upstaged to N2 disease after surgery, with r ecommendations for adjuvant chemotherapy followed by PORT, and that PORT is generally admini stered after chemotherapy for R0 resections, and concurrently for R1 resections as below: We recommend sequentional RT after adjuvant chemotherapy, with radiation given using an IMR T technique to at least 50Gy in conventional fractionation over 5.5-6 weeks. We discussed ac huslia side-effects of RT to include fatigue, sore swallowing and pneumonitis. Late complicatio ns of pneumonitis, accelerated CAD. Logistics of simulation and daily treatments for 5-6 wee ks were described. We have placed a referral to Radiation Oncology in [place], [place] to facilitate consultati on and arrange for adjuvant radiation following her chemotherapy. Ms. Allred was given a patel ce for questions which were answered to the best of our ability. Ms. Allred knows to call our clinic with questions/concerns. We will try to coordinate a fol low-up appointment with Ms. Allred to coincide with CT surgery this summer to monitor her pro yina. documented in this e ncounter Plan of Treatment +--------+---------+ + + + | Date | Type | Specialty | Care Team | Description | +--------+---------+ + + + | 04/30/ | Office | Speech Therapy | Barbra Ramirez SLP | | | 2019 | Visit | | [address] | | | | | | [address] [place], | | | | | | [place] [address] | | | | | | [phone] | | | | | | | | +--------+---------+ + + + | 04/30/ | Office | Otolaryngology | Augustine Nolan | | 2019 | Visit | | MD Debbie [address] | | | | | | [address] | | | | | | [place], [place] | | | | | | [address] | | | | | | [phone] | | | | | | | | +--------+---------+ + + + documented as of this encounter Visit Diagnoses + + | Diagnosis | + + | Malignant neoplasm of upper lobe of left lung (HCC) - Primary | + + documented in this encounter
--- OUTSIDE RECORDS SUMMARY | ~2020-03-30 | XMS | Encounter Summary ---
Demographics + + + | Address | [address] | | | [place] [address] | + + + | Home Phone | | + + + | Preferred Language | Unknown | + + + | Marital Status | Single | + + + | Jehovah'S Witness Affiliation | NRP | + + + | Race | White | + + + | Ethnic Group | Not or | + + + Author + + + | Author | [facility] | + + + | Organization | [facility] | + + + | Address | Unknown | + + + | Phone | Unavailable | + + + Support + + +---------+ + | Name | Relationship | Address | Phone | + + +---------+ + | Laura Allred | ECON | Unknown | | + + +---------+ + Care Team Providers + +------+ + | Care Rehabilitation Services Coordinator Name | Role | Phone | [...] floor | | | | | | [place], [place] | | | | | | [address] | | | +--------+ + + + [...] | | | | | | [place] [address] | | | | | | [phone] | | | | | | | | +--------+---------+ + + + | 04/30/ | Office | Otolaryngology | Augustine Nolan | | | 2019 | Visit | | MD Debbie [address] | | | | | | [address] | | | | | | [place] | | | | | | [address] | | | | | | [phone] | | | | | | | | +--------+---------+ + + + documented as of this encounter Visit Diagnoses Not on filedocumented in this encounter
--- OUTSIDE RECORDS SUMMARY | ~2020-03-30 | XMS | Encounter Summary ---
Demographics + + + | Address | [address] | | | [place] [address] | + + + | Home Phone | | + + + | Preferred Language | Unknown | + + + | Marital Status | Single | + + + | Voodoo Affiliation | Unknown | + + + | Race | Unknown | + + + | Ethnic Group | Unknown | + + + Author + + + | Author | [facility] | | | and Jakobana | + + + | Organization | [facility] | | | and Jakobana | [...] Team Providers + +------+ + | Care Cementing Machine Operator Name | Role | Phone [...] | [facility] | MD Marli [address] | | | | | IMAGING [address] | [address] [place]. | | | | | [address] [place] | [place] [address] | | | | | [place] [address] | | | | | | [phone] | | | +--------+ + + + [...] | | | | | [place] [address] | | | | | | [phone] | | | | | | | [...]
--- OUTSIDE RECORDS SUMMARY | ~2020-03-30 | XMS | Encounter Summary ---
Demographics + + + | Address | [address] | | | [place] [address] | + + + | Home Phone | | + + + | Preferred Language | Unknown | + + + | Marital Status | Single | + + + | Nondenominational Affiliation | Unknown | + + + | Race | Unknown | + + + | Ethnic Group | Unknown | + + + Author + + + | Author | [facility] | | | and Jakobana | + + + | Organization | [facility] | | | and [...] Providers + +------+ + | Care Financial Director Name | Role | Phone | + [...] | | [address]AN | [place] [address] | | | | | [place] [address] | | | | | | [phone] | | | +--------+ + + + [...] | | | | | [place] [address] | | | | | | [phone] | | | | | | | [...]
--- OUTSIDE RECORDS SUMMARY | ~2020-03-30 | XMS | Encounter Summary ---
Demographics + + + | Address | [address] | | | [place] [address] | + + + | Home Phone | | + + + | Preferred Language | Unknown | + + + | Marital Status | Single | + + + | Restorationist Affiliation | NRP | + + + [...] Team Providers + +------+ + | Care Small Lot Operator Name | Role | Phone | + +------+ + | Lauryn Stuart | PCP | | + +------+ + Reason for Visit Speech Therapy (Routine) +--------+--------+ + + + + | Status | Reason | Specialty | Diagnoses / | Referred By | Referred To | | | | | Procedures | Contact | Contact | +--------+--------+ + + + + | Closed | | Speech | Diagnoses | Non-[facility] | Ent Speech | | | | Therapy | Vocal cord | Epic Dept | [facility] [address] | | | | | paralysis | | [address] | | | | | | | Center for | | | | | | | Health and | | | | | | | Healing, | | | | | | | Building [address], | | | | | | | 15th Floor | | | | | | | [place], [place] | | | | | | | [address] | | | | | | | Phone: | | | | | | | [phone] | | | | | | | Fax: | | | | | | | [phone] | +--------+--------+ + + + + Encounter Details +--------+---------+ + + + | Date | Type | Department | Care Team | Description | +--------+---------+ + + + | 01/24/ | Office | Otolaryngology [facility] | Ava Allred, | Vocal cord paralysis | | 2019 | Visit | [place] [facility] | CF-CUSTOMER ADVISOR SPECIALIST [address] [facility] | (Primary Dx); | | | | Swallowing at [facility] | [address] | Dysphonia | | | | [address] | [place], [place] | | | | | [place] for [facility] | [address] | | | | | and Healing, | | | | | | | | | | | | Floor [place], [place] | | | | | | [address] | | | | | | [phone] | | | +--------+---------+ + + + [...] documented as of this encounter Progress Notes Ava Allred, CF-CUSTOMER ADVISOR SPECIALIST - 01/24/2019 9:00 AM PDTFormatting of this note might be different f rom the original. VOICE EVALUATION CLINIC: [facility] Sw[facility]ing REFERRING PHYSICIAN: Manoj Kumar MD PRIMARY DIAGNOSIS: 1. Vocal cord paralysis 2. Dysphonia TREATMENT DIAGNOSIS: 1. Vocal cord paralysis 2. Dysphonia DATE OF ONSET: 01/22/2019 START OF CARE: 01/24/2019 NUMBER OF SESSIONS: 1 DURATION OF SESSION: 40 minutes SUBJECTIVE: Sussy Allred was referred to the [facility] for Voice and Swallowing by Dr. 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 She is well known to our service from last inpatient admission, discharged on 12/14/2018. [facility] [place]11 revealed: Normal oropharyngeal swallow; no aspiration. 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 The patient stated her name and date of to confirm identity prior to the examination and procedure. REASON FOR REFERRAL: The patient has a 2 month history of voice problems following surgical resection of mediastinal lymph node disease with left thoracotomy and CODY lobectomy on 12/04. The patient reported that she is very troubled by her voice as she would eventually l topher to return to work as a [employer]er. She reports that her voice is very weak and it takes a great deal of effort to talk. She endorses poor vocal endurance, voice fading wit h use, whisper voice, poor ability to yell or project voice and difficulty using the phone. She notes that her throat often feels sore, dry, and irritated, "like something is there." S he endorses an unproductive cough. She reports that her voice hasn't changed significantly s meli surgery, and does not appear to be getting worse. She reports that she has had signific ant SOB while performing daily tasks. She is currently using inhalers, which help some. This evaluation was completed in cooperation with Dr. Augustine Nolan M.D.. Please refer to his report for details regarding the medical diagnosis. 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 of water, rarely drinks caffeinated drinks, occas ionally a glass of wine. The patient quit smoking in 2018 and previously had a 10 yr pack h istory of < 1 pack/day. 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 The patient's vocal demands are heavy for her j ob and include talking on the phone, conversations and talking over noise. The patient does not complain of overt reflux symptoms but is currently maintained on Prevacid 1x/day. SINGING: Patient is not a carolina. SWALLOWING: Patient reports that she is careful when eating and drinking but is eating a n ormal diet. She is not avoiding any foods or liquids. She does not endorse coughing or choki ng when eating or drinking. She is scheduled for G-tube removal today, which she reports she never had to use. PERCEPTUAL ASSESSMENT: The patient's voice was moderately dysphonic and characterized by a breathy and weak vocal quality. There were no audible spasms during phonation. There was no tremor noted during phonation. The patient's pitch was within normal limits for her age and gender. Loudness was too soft for 1:1 conversation. Articulation was within normal limits. Speech rate was within normal limits. Resonance was within normal limits. Breathing pattern was thoracic and shallow. Breath support for speech was poor. Coordination of breath and voi ce was fair. The patient's speech intelligibility was approximately 100%. CAPE-V results rev ealed overall moderate dysphonia (51/100), no roughness (0/100), moderate breathiness (41/10 0), mild strain (10/100), normal pitch (0/100), decreased loudness (51/100). Voice Handicap Index = 118 (VHI measures the impact of the patient's voice disorder on lala y communication with 120 being the maximum score indicating severe handicap). LARYNGEAL EXAMINATION: Laryngovideostroboscopy was completed using the flexible distal chi p telescope. The patient was sprayed with Lidocaine and Phenylephrine to each nostril prior to the examination after verbal consent. The patient tolerated the procedure well. The vocal folds were well visualized. The vocal folds were white with straight and smooth edges. Ther e were no lesions noted bilaterally. Range of motion for vocal fold abduction was absent on the left. Range of motion for vocal fold adduction was absent on the left. There was increas ed supraglottic activity during phonation and connected speech. Supraglottic activity was ch aracterized by mild anterior-posterior squeezing. The patient was able to achieve more relax ed phonation with mildly better closure using a "hum". Vocal fold elongation during glissand o was decreased L>R. During stroboscopy, vertical level of the vocal folds was equal. Glotti c closure was intermittently complete, but sometimes characterized by a posterior gap. The m ucosal wave was decreased bilaterally, L> R. Amplitude of vibration was decreased bilaterall y. Phase symmetry was usually regular. Vibratory behavior was present bilaterally. Patient education was completed with verbal and visual information. The patient appeared to understand the information presented today. After thorough discussion with Dr. Nolan of risks and benefits of the procedure, patient would like to move forward with a Cymetra inje ction today. Please refer to Dr. Nolan's note for more information. SUMMARY: The patient presented with moderate dysphonia secondary to L vocal fold paralysis s/p left thoracotomy and CODY lobectomy with bronchial and PA construction. 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 RECOMMENDATIONS: 1. Dr. Nolan has recommended Cymetra injection, which was completed today. Please refer to his note for more information. Ava Allred M.S., CF-CUSTOMER ADVISOR SPECIALIST Speech-Language Pathology Fellow Clinic for [facility] Sw[facility]ing [facility] [phone] documented in this encounter Plan of Treatment +--------+---------+ + + + | Date | Type | Specialty | Care Team | Description | +--------+---------+ + + + | 04/30/ | Office | Speech Therapy | Barbra Ramirez SLP | | | 2019 | Visit | | [address] | | | | | | [place] | | | | | | [place] [address] | | | | | | [phone] | | | | | | | | +--------+---------+ + + + | 04/30/ | Office | Otolaryngology | Augustine Nolan | | | 2019 | Visit | | MD Debbie [address] | | | | | | [address] | | | | | | [place] | | | | | | [address] | | | | | | [phone] | | | | | | | | +--------+---------+ + + + documented as of this encounter Procedures + +--------+ + + + | Procedure Name | Priori | Date/Time | Associated Diagnosis | Comments | | | ty | | | | + +--------+ + + + | [facility] | Routin | 01/24/2019 | Vocal cord | | | QUALITATIVE ANALYSIS | e | 3:27 PM | paralysis Dysphonia | | | OF VOICE AND | | PDT | | | | RESONANCE | | | | | + +--------+ + + + | TN | Routin | 01/24/2019 | Vocal cord | | | LARYNGOSCOPY,FLEX/RI | e | 3:27 PM | paralysis Dysphonia | | | GID+STROBOSCOPY | | PDT | | | + +--------+ + + + documented in this encounter Visit Diagnoses + + | Diagnosis | + + | Vocal cord paralysis - Primary Paralysis of vocal cords or larynx, unspecified | + + | Dysphonia | + + documented in this encounter
--- OUTSIDE RECORDS SUMMARY | ~2020-03-30 | XMS | Encounter Summary ---
Demographics + + + | Address | [address] | | | [place] [address] | + + + | Home Phone [...] + + + | Author | [facility] | + + + | Organization | [facility] | + + + | Address | Unknown | + + + | Phone | Unavailable | + + + Support + + +---------+ + | Name | Relationship | Address | Phone | + + +---------+ + | Laura Allred | ECON | Unknown | | + + +---------+ + Care Team Providers + +------+ + | Care Varsity Baseball Coach Name | Role | Phone | + +------+ + | Lauryn Stuart | PCP | | + +------+ + Reason for Visit + + + | Reason | Comments | + + + | Follow-up visit | | + + + Office Visit - E/M Services (Routine) +--------+--------+ + + + + | Status | Reason | Specialty | Diagnoses / | Referred By | Referred To | | | | | Procedures | Contact | Contact | +--------+--------+ + + + + | Closed | | Thoracic | | Bony, | Stacy | | | | Surgery | | MD Rell | MD Manoj | | | | | | [address] | [address] | | | | | | [address] | [address] | | | | | | [address] | Rd [place], | | | | | | [place], [place] | [place] | | | | | | [address] | [address] | | | | | | Phone: | Phone: | | | | | | [phone] | [phone] | | | | | | Fax: | Fax: | | | | | | [phone] | [phone] | +--------+--------+ + + + + Encounter Details +--------+---------+ + + + | Date | Type | Department | Care Team | Description | +--------+---------+ + + + | 12/27/ | Office | Cardiothoracic | Manoj Kumar MD | Malignant neoplasm | | 2019 | Visit | Surgery at [facility] | [address] | of lung, unspecified | | | | [address] | [address] | laterality, | | | | Center for [facility] | [facility] [place] | unspecified part of | | | | and Healing, | [address] | lung (HCC) (Primary | | | | Building [address] | [phone] | Dx); Acute | | | | [facility] [place] | | post-operative pain | | | | [address] | | | | | | [phone] | | | +--------+---------+ + + + [...] + + + | Blood Pressure | 116/57 | 12/27/2018 10:17 AM | | | | | PDT | | + + + + + | Pulse | 75 | 12/27/2018 10:17 AM | | | | | PDT | | + + + + + | Temperature | - | - | | + + + + + | Respiratory Rate | - | - | | + + + + + | Oxygen Saturation | 96% | 12/27/2018 10:17 AM | | | | | PDT | | + + + + + | Inhaled Oxygen | - | - | | | Concentration | | | | + + + + + | Weight | 56.7 kg (125 lb) | 12/27/2018 10:17 AM | | | | | PDT | | + + + + + | Height | - | - | | + + + + + | Body Mass Index | 21.46 | 12/04/2018 6:09 AM | | | [...] documented as of this encounter Progress Notes Alejandro Waters NP - 12/27/2018 10:15 AM [facility] Thor[facility] Surgery [facility] Date of Service: 12/27/2018 Referring Providers: Rell Lovett MD Reason for Visit: Postoperative check Subjective: Ms. Sussy Allred is well-known to our service. Briefly, she is a 68 year- old female who presented with a history of a PET-avid CODY lung nodule concerning for maligna ncy. On 04 December, she underwent an EBUS, cervical mediastinoscopy, left VATS to muscle-sparing t horacotomy, left upper lobectomy with sleeve resection of airway and pulmonary artery with p ulmonary artery plasty, pericardial patch, mediastinal lymph node dissection, and hilar lymp h node dissection. Her pathology revealed a T2aN2 poorly-differentiated adenocarcinoma. On November, she required placement of a PEG tube, as her left recurrent laryngeal nerve was sac rificed during the operation. Since discharge on 14 December, she has been well. The patient's current medications include: acetaminophen 325 mg oral tablet, Take 1-2 tablets by mouth every six hours as needed. Esther cations: fever, Pain albuterol 90 mcg/actuation inhalation HFA aerosol inhaler, Inhale by mouth as needed. ALPRAZolam 0.25 mg oral tablet, Take by mouth as needed. buPROPion XL 300 mg oral tablet extended release 24 hr, Take 1 tablet by mouth once daily. cilostazol 50 mg oral tablet, Take 1 tablet by mouth once daily. cyanocobalamin 1,000 mcg oral tablet, Take 1,000 mcg by mouth once daily. doxycycline hyclate 100 mg oral capsule, Take 100 mg by mouth two times daily. Indications : skin infection estradiol 2 mg oral tablet, Take 2 mg by mouth once daily. Lactobacillus acidophilus (PROBIOTIC ACIDOPHILUS ORAL), Take 1 capsule by mouth once daily. lansoprazole 30 mg oral capsule,delayed release(DR/EC), Take 30 mg by mouth once daily. Lidocaine 4 % topical adhesive patch,medicated, Apply 1 patch to affected area once daily a s needed. Indications: neuropathic pain nicotine 14 mg/24 hr transdermal patch 24 hour, Apply to skin as needed. oxyCODONE (immediate release) 5 mg oral tablet, Take 1-2 tablets by mouth every four hours as needed for severe pain. Indications: Pain QVAR REDIHALER 40 mcg/actuation inhalation HFA aerosol breath activated, Inhale by mouth on ce daily. senna-docusate 8.6-50 mg oral tablet, Take 1 tablet by mouth twice daily as needed for cons tipation. Indications: constipation SYNTHROID 50 mcg oral tablet, Take 50 mcg by mouth once daily. triamterene-hydrochlorothiazide 37.5-25 mg oral tablet, Take 0.5 tablets by mouth once lala y. Indications: high blood pressure Objective: Vital Signs: BP 116/57 (BP Location: Right upper arm, Patient Position: Sitting) | Pulse 7 5 | Wt 56.7 kg (125 lb) | SpO2 96% RA | BMI 21.46 kg/m | BSA 1.6 m General healthy, alert and cooperative Chest Percussion normal. Good diaphragmatic excursion. Lungs clear to auscultation bilatera lly. Chest Incision location left lateral chest wall wound edges well approximated without redne ss or drainage Cardiovascular PMI normal. No lifts, heaves, or thrills. RRR. Heart sounds normal. No murm urs, clicks or gallops. Abdominal aorta pulsation normal. Carotid, Femoral and pedal pulses 4+ bilaterally. No arterial bruits. No peripheral edema. Extremities Extremities normal. No deformities, edema, or skin discoloration. Peripheral pu lses 2+ equal with peripheral filling less than 2 seconds. Chest Radiograph: Assessment/Plan: In summary, Ms. Allred is a 68 year-old female with a history of T2aN2 poorly-differentiated CODY lung cancer status-post resection. Ms. Allred will continue to increase her activity. I have advised her to not drive an automobile until it has been at least 1 month since her op eration and she is off narcotic pain medicines. She should not lift more than 10 lbs until 6 weeks post-operatively. Chest tube sutures removed without complication. Her narcotic pain medication was refilled. Ms. Allred should see us back in our office in 4-6 weeks for evaluation and possible removal of her PEG tube. She is scheduled to see Dr. Barber on 09 January for consideration of systemic therapy. She is scheduled to see Dr. Nolan on 24 January for evaluation and possible Cymetra injecti on. We would like to see her back in our office in three months with a chest CT for surveillanc e purposes. I spent 20 minutes with her today, independent from other providers. Manoj Gomes MD - 10:15 AM PDT Thoracic Surgery Faculty Patient Name: Sussy Allred Date of : 1950 [facility] I personally interviewed the patient, performed gutiérrez elements of the physical examination, a nd personally formulated the assessment and plan with the nurse practitioner. Please see Mary Waters's note for details of this encounter. I spent 20 minutes with Ms. Allred. I spent greater than 50% of this time counseling her an d coordinating her care including discussion of the listed items. Doing OK. Peg intact but bothersome Will need to keep PET until after XRT if given or 6 weeks from insertion Discussed final pathology and tumor board. Will see her again in 3 months for first surveillance visit OR sooner if PEG can come out. Manoj Kumar M.D., FACS, FACCP patcher helper Section of General Thoracic Surgery Division of Cardiothoracic Surgery documented in this enc ounter Plan of Treatment +--------+---------+ + + + | Date | Type | Specialty | Care Team | Description | +--------+---------+ + + + | 04/30/ | Office | Speech Therapy | Barbra Ramirez SLP | | | 2019 | Visit | | [address] | | | | | | [place] | | | | | | [place] [address] | | | | | | [phone] | | | | | | | | +--------+---------+ + + + | 04/30/ | Office | Otolaryngology | Augustine Nolan | | | 2019 | Visit | | MD Debbie [address] | | | | | | [address] | | | | | | [place] | | | | | | [address] | | | | | | [phone] | | | | | | | | +--------+---------+ + + + documented as of this encounter Visit Diagnoses + + | Diagnosis | + + | Malignant neoplasm of lung, unspecified laterality, unspecified part of lung (HCC) - | | Primary | + + | Acute post-operative pain | + + documented in this encounter
--- OUTSIDE RECORDS SUMMARY | ~2020-03-30 | XMS | Encounter Summary ---
Demographics + + + | Address | [address] | | | [place] [address] | + + + | Home Phone [...] + | Author | [facility] | | | and [place] | + + + | Organization | [facility] | | | and [place] [...] Team Providers + +------+ + | Care Table Filler Name | Role | Phone | + +------+ + PCP | Unavailable | + +------+ + Encounter Details +--------+ + + + + | Date | Type | Department | Care Team | Description | +--------+ + + + + | 01/23/ | Hospital | [facility] | Barbra Lind, | | | 2013 | Encounter | HOSPITAL EMERGENCY | [facility] [address] | | | | | CENTER [address] | [place] | | | | | [place] | [id number] | | | | | [address] | | | | | | [phone] | | | +--------+ + + + [...] | | | | | [place] [address] | | | | | | [phone] | | | | | | | | +--------+ + + + + documented as of this encounter Visit Diagnoses Not on filedocumented in this encounter"
--- OUTSIDE RECORDS SUMMARY | ~2020-03-30 | XMS | Encounter Summary ---
Demographics + + + | Address | [address] | | | [place] [address] | + + + | Home Phone [...] Team Providers + +------+ + | Care Grain Combiner Name | Role | Phone | + +------+ + | aLuryn Stuart | PCP | | + +------+ + Encounter Details +--------+ + + + + | Date | Type | Department | Care Team | Description | +--------+ + + + + | 12/27/ | Hospital | Radiology/Imaging | Alejandro Waters NP | | | 2019 | Encounter | Lab at [facility] [address] | | | | | [place] for | [place], [place] | | | | | Health and Healing, | [address] | | | | | [address] | [phone] | | | | | Floor [place], [place] | | | | | | [address] | | | | | | [phone] | | | +--------+ + + + [...] | | | | | | [place] [address] | | | | | | [phone] | | | | | | | | +--------+---------+ + + + | 04/30/ | Office | Otolaryngology | Augustine Nolan | | | 2019 | Visit | | MD Debbie [address] | | | | | | [address] | | | | | | [place] | | | | | | [address] | | | | | | [phone] | | | | | | | | +--------+---------+ + + + documented as of this encounter Procedures + +--------+ + + + | Procedure Name | Priori | Date/Time | Associated Diagnosis | Comments | | | ty | | | | + +--------+ + + + | X-RAY CHEST 2 VIEW | Routin | 12/27/2018 | Malignant neoplasm | Results for this | | | e | 11:44 AM | of lung, | procedure are in the | | | | PDT | unspecified | results section. | | | | | laterality, | | | | | | unspecified part of | | | | | | lung (HCC) | | + +--------+ + [...] unspecified laterality, unspecified part of lung (HCC) | + + documented in this encounter
--- OUTSIDE RECORDS SUMMARY | ~2020-03-30 | XMS | Encounter Summary ---
Demographics + + + | Address | [address] | | | [place] [address] | + + + | Home Phone [...] + + + | Author | [facility] | + + + | Organization | [facility] | + + + | Address | Unknown | + + + | Phone | Unavailable | + + + Support + + +---------+ + | Name | Relationship | Address | Phone | + + +---------+ + | Laura Allred | ECON | Unknown | | + + +---------+ + Care Team Providers + +------+ + | Care Esthetician And Manager Medical Spa Name | Role | Phone | + [...] | | | | | at [facility] [address] | [address] | | | | | [place] for | [place], [place] | | | | | Health and Healing, | [address] | | | | | [facility] [address] | [phone] | | | | | [place], [place] | | | | | | [address] | | | | | | [phone] | | | +--------+ + + + [...] | | 2019 | Visit | | [address] | | | | | | [place], | | | | | | [place] [address] | | | | | | [phone] | | | | | | | | +--------+---------+ + + + | 04/30/ | Office | Otolaryngology | Augustine Nolan | | | 2019 | Visit | | MD Debbie [address] | | | | | | [address] | | | | | | [place] | | | | | | [address] | | | | | | [phone] | | | | | | | | +--------+---------+ + + + documented as of this encounter Visit Diagnoses Not on filedocumented in this encounter
--- OUTSIDE RECORDS SUMMARY | ~2020-03-30 | XMS | Encounter Summary ---
Demographics + + + | Address | [address] | | | [place] [address] | + + + | Home Phone [...] Author + + + | Author | [facility] | + + + | Organization | [facility] | + + + | Address | Unknown | + + + | Phone | Unavailable | + + + Support + + +---------+ + | Name | Relationship | Address | Phone | + + +---------+ + | Laura Allred | ECON | Unknown | | + + +---------+ + Care Team Providers + +------+ + | Care Drug Regulatory Affairs Specialist Name | Role | Phone | + +------+ + | Lauryn Stuart | PCP | | + +------+ + Reason for Referral PROC - Outpatient Surgery (Routine) +--------+---------+ + + + + | Status | Reason | Specialty | Diagnoses / | Referred By | Referred To | | | | | Procedures | Contact | Contact | +--------+---------+ + + + + | Closed | Coded | Otolaryngolog | Diagnoses | An, | An, | | | | y | Malignant | Augustine Lewis, | Augustine Lewis MD | | | | | neoplasm of | MD [address] | [address] | | | | | upper lobe | [address] | [address] | | | | | of left lung | Melania Luna | [place], | | | | | ([facility]) | [place], [place] | [place] | | | | | Paralysis of | [address] | [address] | | | | | left vocal | Phone: | Phone: | | | | | fold | [phone] | [phone] | | | | | Dysphonia | Fax: | Fax: | | | | | Pharyngeal | [phone] | [phone] | | | | | dysphagia | | | | | | | Procedures | | | | | | | REQUEST TO | | | | | | | SURGERY | | | | | | | [employer]ER | | | | | | | DE | | | | | | | LARYNGOPLAST | | | | | | | Y, | | | | | | | MEDIALIZATIO | | | | | | | N, UNILAT | | | | | | | 90 G | | | +--------+---------+ + + + + Reason for Visit + + + | Reason | Comments | + + + | Follow-up encounter | | + + + Encounter Details +--------+ + + + + | Date | Type | Department | Care Team | Description | +--------+ + + + + | 09/15/ | Telephone | Otolaryngology | Augustine Nolan | Follow-up encounter | | 2020 | | Laryngology Services | MD Debbie [address] | | | | | at [facility] [address] | [address] | | | | | lou [facility] | [place], [place] | | | | | Health and [facility], | [address] | | | | | [place] [address] | [phone] | | | | | [place], [place] | | | | | | [address] | | | | | | [phone] | | | +--------+ + + + [...] | | | | | Melania Luna [place], | | | | | | [place] [address] | | | | | | [phone] | | | | | | | | +--------+---------+ + + + | 04/30/ | Office | Otolaryngology | Augustine Nolan | | | 2019 | Visit | | MD Debbie [address] | | | | | | [address] | | | | | | [place], [place] | | | | | | [address] | | | | | | [phone] | | | | | | | | +--------+---------+ + + + documented as of this encounter Visit Diagnoses + + | Diagnosis | + + | 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
--- OUTSIDE RECORDS SUMMARY | ~2020-03-30 | XMS | Encounter Summary ---
Demographics + + + | Address | [address] | | | [place] [address] | + + + | Home Phone [...] Author + + + | Author | [facility] | + + + | Organization | [facility] | + + + | Address | Unknown | + + + | Phone | Unavailable | + + + Support + + +---------+ + | Name | Relationship | Address | Phone | + + +---------+ + | Laura Allred | ECON | Unknown | | + + +---------+ + Care Team Providers + +------+ + | Care Director [facility] [employer] [facility] Name | Role | Phone | + +------+ + | Lauryn tSuart | PCP | | + +------+ + Encounter Details +--------+---------+ + + + | Date | Type | Department | Care Team | Description | +--------+---------+ + + + | 10/08/ | Office | Preoperative | Sara Blanca, | Preoperative | | 2020 | Visit | Medicine Clinic at | [employer] [address] | examination (Primary | | | | [facility] | [address] | Dx); | | | | [address] | [place], [place] | Hypothyroidism, | | | | [facility] | [address] | unspecified type; | | | | and Healing, | [phone] | Paralysis of left | | | | [address] | | vocal fold; | | | | [place], [place] | | Hypertension, | | | | [address] | | unspecified type; | | | | [phone] | | Gastroesophageal | | | | | | reflux disease, | | | | | | esophagitis presence | | | | | | not specified; | | | | | | Dysphagia, | | | | | | unspecified type; | | | | | | Chronic | | | | | | post-thoracotomy | | | | | | pain; Dysphonia; | | | | | | Irritable bowel | | | | | | syndrome with both | | | | | | constipation and | | | | | | diarrhea; Anxiety; | | | | | | Raynaud's disease | | | | | | without gangrene | +--------+---------+ + + + Anesthesia Record + + + + + | Procedure Name | Responsible | Anesthesia Start | Anesthesia Stop Time | | | Anesthesiologist | Time | | + + + + + | LEFT MEDIALIZATION | Helga Toney, | 10/09/19 0721 | 10/09/19 1009 | | THYROPLASTY (Left [...] by | 10/10/19 1144 by | | brittal | 10/10/19; 1144 | Willow Roque RN | Gustavo Perez | | IV | | | FARIDA [...] + + + | Blood Pressure | 115/64 | 10/08/2019 10:58 AM | | | | | PST | | + + + + + | Pulse | 77 | 10/08/2019 10:58 AM | | | | | PST | | + + + + + | Temperature | 36.3 C (97.4 F) | 10/08/2019 10:58 AM | | | | | PST | | + + + + + | Respiratory Rate | 20 | 10/08/2019 10:58 AM | | | | | PST | | + + + + + | Oxygen Saturation | 100% | 10/08/2019 10:58 AM | | | | | PST | | + + + + + | Inhaled Oxygen | - | - | | | Concentration | | | | + + + + + | Weight | 54.9 kg (121 lb) | 10/08/2019 10:58 AM | | | | | PST | | + + + + + | Height | 162.6 cm (5' 4") | 10/08/2019 10:58 AM | | | | | PST | | + + + + + | Body Mass Index | 20.77 | 10/08/2019 10:58 AM | | | | | PST [...] of this encounter Patient Instructions Patient Instructions Sara Blanca, [employer] - 10/08/2019 11:30 AM [facility] PREOPERATIVE INSTRUCTIONS Pre-surgery "homework" * Unless otherwise instructed by your surgeon, stay active between now and surgery, even st riving to increase your activity levels if you can (ex. taking at least one walk daily, even around the block). This can help speed your surgery recovery. Surgery check-in location: Admitting - [facility] Surgery Check in Time: you will receive a call 1-3 business days before your surgery confi rming your exact arrival/check-in time for your surgery day. We know that planning for surge ry can be stressful and involve a lot of family/friend/transportation coordination as well a s hotel arrangements. The Preoperative Medicine Clinic does not have access to check in time s, and we encourage you to contact your surgeon's office for any assistance planning around a tentative arrival time. Empty stomach before surgery On the day BEFORE your surgery, drink plenty of fluids and stay well hydrated NOTHING to eat or drink after midnight the night before surgery. This includes water, c offee, candy, mints, gum. Medications Instructions On the evening before your surgery, take ALL your usual evening medications On the morning of surgery TAKE the following medications with a sip of water: Lansoprazole Levothyroxine Buproprion On the morning of surgery DO NOT TAKE the following medications: Estrogen Vitamins or supplements Triamterene-HCTZ Other medications not specifically mentioned are at your discretion as to taking or not taking on the morning of surgery. Home medications that need to be brought by patient for [facility] overnight stay: Please bring in the following medications only, this medication should be in the original p ackaging from the pharmacy. Acyclovir Cilostazol Estradiol Fentanyl patch Triamterene-HCTZ Unless otherwise directed by your surgeon, do not take any Aspirin, fish oil supplements , vitamin E or non-steroidal anti-inflammatory (NSAIDs i.e. Advil, Aleve, Ibuprofen) or herb al supplements 7 days prior to your surgery. These drugs may interfere with normal blood tierney tting and may cause excessive bleeding and bruising during or after the surgery. If you need a pain medication for general purposes, use Tylenol as directed. OK to take it even on the morning of surgery, if needed. If you are in doubt about any medications that you are taking, please contact our office . Skin preparation to help avoid surgical site infections HIBICLENS GUIDE TO GENERAL SKIN CLEANSING AT HOME BEFORE SURGERY Before you bathe or shower: ? Read the instructions given to you by your healthcare practitioner, and begin your genera l skin cleansing protocol as directed. ? Carefully read all directions on the product label. ? Hibiclens is not to be used on the head or face, keep out of the eyes, ears and mouth. ? Hibiclens is not to be used in the genital area. ? Hibiclens should not be used if you are allergic to chlorhexidine gluconate or any other ingredients in this preparation. *See Hibiclens label for full product information and precautions. When you bathe or shower the night before your surgery: ? If you plan to wash your hair, do so with your regular shampoo. Then rinse hair and body thoroughly to remove any shampoo residue. ? Wash your face with your regular soap or water only. ? Thoroughly rinse your body with warm water from neck down. ? Use Hibiclens as you would any other liquid soap. Please do not put the Hibiclens on a wa sh cloth, apply directly to the skin and wash gently. Apply the minimum amount of Hibiclens necessary to cover the skin. Leave the Hibiclens on your skin for 1 minute, then rinse off. ? Rinse thoroughly with warm water. ? Do not use your regular soap after applying and rinsing Hibiclens. When using Hibiclens for a second day in a row (morning of surgery, as soon as you wake up) : ? Shower/bathe again using Hibiclens in the same method as described above. ? Do not apply any lotions, deodorants, powders or perfumes to the body areas that have been cleaned with Hibiclens. Other Important Guidelines ? Do not shave the surgical area ? Do not smoke, drink alcohol or use recreational drugs for 24 hours before your surgery Watch for any change in your health condition. Let your surgeon know right away if you do not feel well--this includes calling if you think you are developing a "cold" in the days before your surgery. ? Do not wear makeup, perfume, lotions, deodorant, powder or hairspray. Do not wear any jewelry to the hospital. Wear loose, comfortable clothing. Leave all your valuables at home. Allow enough travel time so you re not late for your check in for surgery. ? Please remember to brush your teeth the night before and the morning of your procedure. Preventing post op complications while you are in the hospital Use an incentive spirometer or peep breathe to keep your lungs working properly an d to help prevent respiratory complications. It helps you take long, deep breaths. Use it at least once every hour while you are awake. Leg and feet exercises will maintain good circulation and help prevent blood clots in yo ur legs. Sometimes your doctor will order sequential air compression stockings. Compressed air helps the circulation in your legs. Walking and moving will help stimulate normal circulation and deep breathing. Going Home Your surgical team will decide when you are medically ready to go home. If you are released to go home on the same day as your procedure/surgery please note the following: You will not be able to drive yourself A responsible adult MUST escort you home. You may not drive yourself Your responsible adult can drive you or they can accompany you in a taxi, ride share (sparks ch as Uber/Lyft), or public transportation. An Uber/Lyft/road driver does not count as the responsible adult who accompanies you. Certified Medical Transport can transport you after surgery as long as a competent adult is waiting for you on arrival at your destination Although not mandatory, it is highly recommended that a patient has a responsible person with you to provide overnight monitoring/support following discharge. If you have questions or concerns after you go home, call your doctor s office. If it is after office hours, call the [facility] converting operator at [phone] and ask them to page him or h er. documented in this encounter Progress Notes Kevin Barriga MA - 10/08/2019 11:30 AM PSTVenipuncture performed in clinic, blood kristopher ple obtained from Right hand site 20 3:25 PM Sara Najera FNP - 10/08/2019 11:30 AM PST PRE-OPERATIVE MEDICINE CLINIC ([facility]) CONSULT NOTE Author: MATTHEW Schofield Referring Physician: Augustine Nolan MD Primary Care Provider: MALLIKA Toledo Reason for Consult: Preoperative evaluation and risk assessment Proposed Procedure/Date: LEFT MEDIALIZATION THYROPLASTY 10/09/2019 Proposed Procedure Location: [facility] HISTORY OF PRESENT ILLNESS: Sussy Allred is a 69 y.o. female here for preoperative eval uation of medical comorbid conditions and risk assessment in anticipation of the above proce dure. 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 Associated symptoms includ e hoarseness and difficulty swallowing. She is s/p VATs and left upper partial lobectomy 11/19. Residual post-thoracotomy pain is managed with Mobile and fentanyl patches. Pertinent medical conditions and/or prior cardiopulmonary testing reviewed during this visi t: H/o radiation pneumonitis - finished a 2 month course of oral steroids 2 weeks ago HTN - well controlled with triamterene-hydrochlorothiazide 37.5-25 mg GERD - well controlled with lansoprazole IBS - with alternating constipation/diarrhea Hypothyroidism - euthyroid per patient with levothyroxine Raynaud's syndrome - managed with cilostazol Anxiety - managed with daily bupropion, prn alprazolam Prior rosalia-operative or rosalia-anesthesia complications: none Functional Capacity: Low (1-4 mets) Jack Setter or current activity: Able to walk one block without stopping. Lives alone, performs ADLs without assistance. Pushes the cart around the grocery store, no motorized car t. Denies exertional chest pain, palpitations, or anginal equivalents with activity. ROS: HPI: 69 yo female scheduled for LEFT MEDIALIZATION THYROPLASTY 10/09/2019 Prior Anesthetic Prob lems: No Pulmonary: H/o lung cancer, s/p partial left lobectomy 2018. Quit smoking 2019, 5-6 cigarettes per day for 8-10 years. shortness of breath (chronic SO B, no recent changes) no cough Recent Respiratory Infection (finished a 2 month course o f steroids two weeks ago for radiation pneumonitis) No dx of sleep apnea Risk factors for sleep apnea: Age>50 Pt at low risk of ACOSTA Cardiovascular: Able to walk one block without stopping. Lives alone, performs ADLs without assistance. Pus hes the cart around the grocery store, no motorized cart. Denies exertional chest pain, palp itations, or anginal equivalents with activity. She has residual post-thoracotomy pain. No h/o cardiac disease. Functional Capacity: Low - palpitations no chest pain hypertension well controlled no valvular problems/murmurs no arrhythmia GI/Hepatic: H/o left vocal cord paralyis, pharyngeal dysphagia. She does report difficulty swallowing s ometimes, but no issues with specific textures. OTHER GI (h/o IBS) constipation and diarrhe aGERD Control: well controlled no liver disease no hepatitis Renal: Within Defined Limits except as noted below no renal failure no dialysis Urology/Iron Melter: S/p total hysterectomy no Urologic Conditions Endo: Endocrine Other (stable with levothyroxine) Thyroid:+ hypothyroidism Hx Corticosteroid Use: (2 months of steroids for lung infection in Nov. ) < 6 months Neuro/Psych: No Head Conditions Neuromuscular Conditions other Raynauds - takes cilostazol Psych Diso rder anxiety pain Current pain score: 5 Chronic Pain Current treatments: Opioids Musculoskeletal: Reports chronic neck pain, possible instability. Able to lie supine without issues. arthritis Type: osteoarthritis No Muscular Disorders no skeletal disorders Heme/Onc: Hemoglobin Disorders previous transfusion, with chemotherapy malignancy Lung Infectious Disease: Within Defined Limits except as noted below no MRSA no VRE no clostridium difficile no tub erculosis Skin: Integumentary system within defined limits no open wounds No active skin infections no ski n conditions AutoImmune Disorders: autoimmune disorders within defined limits No autoimmune disorders Current medications reviewed / updated Current Outpatient Medications Medication Sig acetaminophen 325 [...] Take 50 mcg by mouth before breakfast. multivit-min/iron/folic/hpy960 (HAIR, SKIN AND NAILS ADVANCED ORAL) Take [...] o nce daily. 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 Following CODY and AP window NSCCa of lung Pharyngeal dysphagia 12/04/2018 Raynaud's disease Past surgery reviewed / updated Past Surgical History Procedure Laterality Date Hysterectomy around 1991 Flexible bronchoscopy, endobronchial ultrasound guided lymph node biopsies, mediastinos copy; (n/a chest) left video assisted lymph node biopsy, thoracotomy, lingular sparing upper lobectomy, lymph node dissection, (left chest) 2019 at [facility] Family history reviewed / updated Family History Problem Relation No Known Problems Mother No Known Problems Father Cancer Neg Hx Movement Disorder Neg Hx Thyroid disease Neg Hx Social history reviewed / updated Social History Tobacco Use Smoking status: Former Smoker Types: Cigarettes Smokeless tobacco: Never Used Substance Use Topics Alcohol use: Yes Comment: Depends. Drinks wine "often" Drug use: No PHYSICAL EXAM: Last Vitals: BP 115/64 | Pulse 77 | Temp 36.3 C (97.4 F) (Oral) | Resp 20 | Ht 1.62 6 m (5' 4") | Wt 54.9 kg (121 lb) | SpO2 100% | BMI 20.77 kg/m | BSA 1.57 m Body ma ss index is 20.77 kg/m. General: Appearance: Age appropriate, No distress and Smiling LOC: Alert HEENT: Normocephalic/Atraumatic Airway: Dentition: dentition is normal Date of last Dental Exam: Jun 2019 Mallampati: 1 Mouth Open ing: > 3 cm TM Distance:> 6 cm C-Spine ROM: Limited flexion & extension Neck Anatomy: Normal Jaw Protrusion: Normal (lower incisors go above upper incisors) Pulmonary: CTA(B), no w/r/r, good air movement, no increased work of breathing and speaking in full se ntences Respiratory: pulmonary exam normal Respiratory comments: left partial lobectomy 201 9 Breath Sounds: breath sounds normal Cardiovascular: No m/r/g, no carotid bruit, no LE edema, JVP not seen elevated Rhythm: Regular Rate: Normal Abdomen: General: Normal Body Habitus: normal Bowel Sounds: bowel sounds are normal Neuro/Psych: Affect: Normal Cognitive Status: Normal Speech: Normal speech Strength: Normal Muscle Tone: Normal Skin: Color: skin color normal Texture: Normal Turgor: turgor normal Temperature: Warm Other Implanted Devices: Implanted devices: None LABS & DATA REVIEWED/ORDERED Lab Results Component Value Date WBC 5.02 10/08/2019 HB 11.6 10/08/2019 HCT 36.3 10/08/2019 PLT 283 10/08/2019 MCV 106.1 10/08/2019 RDW 55.3 10/08/2019 Lab Results Component Value Date NA 141 10/08/2019 K 3.4 10/08/2019 CL 109 10/08/2019 BICARB 25 10/08/2019 BUN 23 10/08/2019 CR 0.75 10/08/2019 GLU 81 10/08/2019 CA 8.2 10/08/2019 ALB 1.9 12/11/2018 Lab Results Component Value Date ABO O 11/26/2018 ABO O 11/26/2018 RH Positive 11/26/2018 RH Positive 11/26/2018 No results found for: A1C EKG: Not needed Stress ECHO 11/2018 reviewed (tracings available in chart): ECHO 11/2018 reviewed: Perioperative risk evaluation: 2014 ACC/AHA Perioperative Cardiac Risk Stratification for non-emergent, non-cardiac surger y Are active cardiac conditions present? No Calculate the combined surgical and patient-specific risk: using the Doss perioperative ca rdiac risk calculator, the risk of major adverse cardiac event (MACE) is: less than 1%. No further risk stratification for coronary disease is indicated. Estimated ASA class 3 Other perioperative risk calculators: Postoperative Respiratory Failure Risk Calculator: http://www.surgicalriskcalculator.com/pr n-qpho-vmyzzzdlhy 0.67 % ASSESSMENT and RECOMMENDATIONS: Perioperative risk assessment: Sussy Allred is a 69 y.o. female referred for pre-op erative evaluation and risk assessment before the above surgery for the above surgical indic ations. Based on the clinical information obtained and reviewed during this visit, the over all assessment is that the patient is having Intermediate risk surgery with identified risk factors. The patient is stable / optimized for surgery: Additional testing needed: no Additional optimization needed: no Venue: SOR is appropriate based on this patients comorbid conditions and xnw-pp-orhhaap care coordination needs Medication management recommendations: The patient was advised to continue all usual med ications except as noted in Patient Instructions (After Visit Summary given to pt) H/o radiation pneumonitis - finished a 2 month course of oral steroids 2 weeks ago HTN - well controlled with triamterene-hydrochlorothiazide 37.5-25 mg GERD - well controlled with lansoprazole IBS - with alternating constipation/diarrhea Hypothyroidism - euthyroid per patient with levothyroxine Raynaud's syndrome - managed with cilostazol Anxiety - managed with daily bupropion, prn alprazolam I counseled Sussy Allred regarding perioperative risk (cardiac/bleeding/ DVT/ respirat ory failure/ infection, etc.) and methods to mitigate risk. I advised the patient regarding NPO requirements, hydration before surgery, showering, general body hygiene. All pre-proce dure instructions given to the patient (after-visit summary). All of patient's questions we re addressed. The patient verbalized understanding of the instructions given. Thank you for the opportunity to contribute to this patient's care. MATTHEW Schofield PRE-OPERATIVE MEDICINE CLINIC [facility] Building [address] [place] [address] [phone] (fax) documented in this encounter Plan of Treatment [...] | | | | | | [place] [address] | | | | | | [phone] | | | | | | | | +--------+---------+ + + + | 04/30/ | Office | Otolaryngology | Augustine Nolan | | | 2019 | Visit | | MD Debbie [address] | | | | | | [address] | | | | | | [place] | | | | | | [address] | | | | | | [phone] | | | | | | | | +--------+---------+ + + + documented as of this encounter Procedures + +--------+ + + + | Procedure Name | Priori | Date/Time | Associated Diagnosis | Comments | | | ty | | | | + +--------+ + + + | MI COLLECTION VENOUS | Routin | 10/08/2019 | Preoperative | | | BLOOD,VENIPUNCTURE | e | 11:14 AM | examination | | | | | PST | | | + +--------+ + + + | CBC (HEMOGRAM) ONLY | Routin | 10/08/2019 | Preoperative | Results for this | | | e | 11:13 AM | examination | procedure are in the | | | | PST | | results section. | + +--------+ + + + | BASIC METABOLIC SET | Routin | 10/08/2019 | Preoperative | Results for this | | (NA, K, CL, TCO2, | e | 11:13 AM | examination | procedure are in the | | BUN, CR, GLU, CA) | | PST | | results section. | + +--------+ + + + | CBC ONLY | Routin | 10/08/2019 | Preoperative | Results for this | | | e | 11:13 AM | examination | procedure are in the | | | | PST | | results section. | + +--------+ + + + documented in this encounter Results CBC (HEMOGRAM) ONLY (10/08/2019 11:13 AM PST) + + + + + + | Component | Value | Ref Range | Performed | Pathologist | | | | | At | Signature | + + + + + + | WHITE CELL | 5.02 | 3.50 - 10.80 | [facility] | | | COUNT | | K/cu mm | LABORATORY | | | | | | SERVICES, | | | | | | CORE | | + + + + + + | RED CELL | 3.42 (L) | 4.00 - 5.20 | [facility] | | | COUNT | | M/cu mm | LABORATORY | | | | | | SERVICES, | | | | | | CORE | | + + + + + + | HEMOGLOBIN | 11.6 (L) | 12.0 - 16.0 | [facility] | | | | | g/dL | LABORATORY | | | | | | SERVICES, | | | | | | CORE | | + + + + + + | HEMATOCRIT | 36.3 | 36.0 - 46.0 % | [facility] | | | | | | LABORATORY | | | | | | SERVICES, | | | | | | CORE | | + + + + + + | MCV | 106.1 (H) | 80.0 - 100.0 fL | [facility] | | | | | | LABORATORY | | | | | | SERVICES, | | | | | | CORE | | + + + + + + | MCHC | 32.0 | 32.0 - 36.0 | [facility] | | | | | g/dL | LABORATORY | | | | | | SERVICES, | | | | | | CORE | | + + + + + + | RDW SD | 55.3 (H) | 35.1 - 46.3 fL | [facility] | | | | | | LABORATORY | | | | | | SERVICES, | | | | | | CORE | | + + + + + + | PLATELET | 283 | 150 - 400 K/cu | [facility] | | | COUNT | | mm | LABORATORY | | | | | | SERVICES, | | | | | | CORE | | + + + + + + | MPV | 8.4 (L) | 9.7 - 12.3 fL | [...] + + | [facility] | [address] | [place] [address] | | | SERVICES, CORE | [address] | | | + + + + + BASIC METABOLIC SET (NA, K, CL, TCO2, BUN, CR, GLU, CA) (10/08/2019 11:13 AM PST) + +---------+ + + + | Component | Value | Ref Range | Performed | Pathologist | | | | | At | Signature | + +---------+ + + + | GLUCOSE, | 81 | 70 - 99 mg/dL | [facility] | | | PLASMA | | | LABORATORY | | | (LAB) | | | SERVICES, | | | | | | CORE | | + +---------+ + + + | BUN, PLASMA | 23 (H) | 6 - 20 mg/dL | [facility] | | | (LAB) | | | LABORATORY | | | | | | SERVICES, | | | | | | CORE | | + +---------+ + + + | CREATININE | 0.75 | 0.60 - 1.10 | [facility] | | | PLASMA | | mg/dL | LABORATORY | | | (LAB) | | | SERVICES, | | | | | | CORE | | + +---------+ + + + | EGFR | >60 | >60 mL/min | [facility] | | | - | | | LABORATORY | | | LEBANESE | | | SERVICES, | | | | | | CORE | | + +---------+ + + + | EGFR NON | >60 | >60 mL/min | [facility] | | | -INGRIS | | | LABORATORY | | | RICAN | | | SERVICES, | | | | | | CORE | | + +---------+ + + + | SODIUM, | 141 | 136 - 145 | [facility] | | | PLASMA | | mmol/L | LABORATORY | | | (LAB) | | | SERVICES, | | | | | | CORE | | + +---------+ + + + | POTASSIUM, | 3.4 | 3.4 - 5.0 | [facility] | [...] +---------+ + + + | CALCIUM, | 8.2 [...] | + +---------+ + + + | BUN/CREATIN | 31 (H) | 8 - 25 | [facility] | | | INE RATIO | | | LABORATORY | | | [...] using the MDRD equation recommended by the National | [facility] | | Kidney Disease Education Program. Estimated GFR Interpretive | LABORATORY | | Information: <60 mL/min/1.73 sq m Chronic Kidney | SERVICES, CORE | | Disease <15 mL/min/1.73 sq m Kidney Failure | | | Estimated GFR greater than 60 mL/min/1.73 sq m is of limited clinical | | | value. The MDRD equation is not valid in the following situations: | | | - Patients under 18 years of age - Severe malnutrition or obesity | | | - Vegetarian diet - Rapidly changing kidney function - Amputees, | | | paraplegics, or other muscle-wasting diseases | | + + + + + + + + | Performing | Address | City/State/Zipcode | Phone Number | | Organization | | | | + + + + + | [facility] | [address] | [place] [address] | | | KOKI STUART | EULALIO OSBORNE | | | + + + + + documented in this encounter Visit Diagnoses + + | Diagnosis | + + | Preoperative examination - Primary Preoperative examination, unspecified | + + | Hypothyroidism, unspecified type | + + | Paralysis of left vocal fold | + + | Hypertension, unspecified type | + + | Gastroesophageal reflux disease, esophagitis presence not specified | + + | Dysphagia, unspecified type | + + | Chronic post-thoracotomy pain | + + | Dysphonia | + + | Irritable bowel syndrome with both constipation and diarrhea | + + | Anxiety Anxiety state, unspecified | + + | Raynaud's disease without gangrene | + + documented in this encounter
--- OUTSIDE RECORDS SUMMARY | ~2020-03-30 | XMS | Encounter Summary ---
Demographics + + + | Address | [address] | | | [place] [address] | + + + | Home Phone | | + + + | Preferred Language | Unknown | + + + | Marital Status | Single | + + + | Mandaeism Affiliation | NRP | + + + | Race | White | + + + | Ethnic Group | Not or | + + + Author + + + | Author | [facility] | + + + | Organization | [facility] | + + + | Address | Unknown | + + + | Phone | Unavailable | + + + Support + + +---------+ + | Name | Relationship | Address | Phone | + + +---------+ + | Laura Zhou | ECON | Unknown | | + + +---------+ + Care Team Providers + +------+ + | Care Catering Truck Driver Name | Role | Phone | + +------+ + | Lauryn Stuart | PCP | | + +------+ + Encounter Details +--------+ + + + + | Date | Type | Department | Care Team | Description | +--------+ + + + + | 11/26/ | Hospital | Diagnostics at [facility] | Tech, Pfl Ped | | | 2019 | Encounter | [address] | [address] | | | | | Jacqueline | [facility] | | | | | [facility], | [place] [address] | | | | | [address] [place] [address] | | | | | | [place], [place] | | | | | | [address] | | | | | | [phone] | | | +--------+ + + + [...] | | | | | | [address] [place], | | | | | | [place] [address] | | | | | | [phone] | | | | | | | | +--------+---------+ + + + | 04/30/ | Office | Otolaryngology | Augustine Nolan | | | 2019 | Visit | | MD Debbie [address] | | | | | | [address] | | | | | | [place], [place] | | | | | | [address] | | | | | | [phone] | | | | | | | [...] + + documented in this encounter Results SPIROMETRY BEFORE / AFTER BRONCHODIL, PULM FUNCTION LAB (11/26/2018 1:31 PM PDT) + + + + + + | Component | Value | Ref Range | Performed | Pathologist | | | | | At | Signature | + + + + + + | PULMONARY | Site: [facility] and | | [facility] | | | INTERPRETAT | [facility], [address] | | SPECIAL | | | ION | [facility] [address], | | DIAGNOSTICS | | | | [place], [place], | | - | | | | [id number]: [id number] | | PULMONARY | | | | Name: SUSSY ZHOU | | FUNCTION | | | | ANNVisit Date: | | | | | | 11/26/2018 Second ID: | | | | | | [id number]: | | | | | | Palm DanielleAge: 68 | | | | | | : 1950 Sex: | | | | | | Female Race: | | | | | | CaucasianHeight: 162.50 | | | | | | Cms Weight: 59.00 | | | | | | Kgs BSA: 1.63Order | | | | | | IDs: [id number] | | | | | | Test(s): <SPIROMETRY | | | | | | BEFORE / AFTER | | | | | | BRONCHODIL>Diagnosis: | | | | | | D49.9 neoplasmDyspnea: | | | | | | After any exertion | | | | | | Cough: Productive | | | | | | Wheeze: FrequentTbco | | | | | | Prod: Cigarette Yrs | | | | | | Smk: 10.0 Pks/Day: | | | | | | 0.3Medications: | | | | | | albuterol, qvarPost Test | | | | | | Comments: Patient | | | | | | height and weight | | | | | | reviewed. Good patient | | | | | | effort & cooperation. | | | | | | The results of this | | | | | | test meet the ATS | | | | | | standards for | | | | | | acceptability and | | | | | | repeatability.Review | | | | | | Status: | | | | | | Completed+Posted+Locked | | | | | | | | | | | | | | | | | | Pre-Bronch | | | | | | Post-Bronch | | | | | | | | | | | | Pred | | | | | | Actual %Pred Actual | | | | | | %ChngSPIROMETRYFVC (L) | | | | | | | | | | | | 3.07 | | | | | | 2.81 91 | | | | | | FEV1 (L) | | | | | | | | | | | | 2.33 2.20 | | | | | | 94 | | | | | | FEV1/FVC (%) | | | | | | | | | | | | 76 78 102 | | | | | | FEF | | | | | | 25% (L/sec) | | | | | | 4.79 | | | | | | 5.05 105 | | | | | | FEF 50% | | | | | | (L/sec) | | | | | | 3.40 2.55 | | | | | | 74 | | | | | | FEF 75% (L/sec) | | | | | | | | | | | | 1.03 0.63 60 | | | | | | FEF | | | | | | 25-75% (L/sec) | | | | | | 2.00 | | | | | | 1.79 89 | | | | | | FEF Max | | | | | | (L/sec) | | | | | | 5.80 6.06 | | | | | | 104 | | | | | | FIVC (L) | | | | | | | | | | | | 2.45 | | | | | | | | | | | | FIF 50% (L/sec) | | | | | | | | | | | | 4.37 5.04 115 | | | | | | FIF | | | | | | Max (L/sec) | | | | | | | | | | | | 5.21 | | | | | | Expiratory | | | | | | Time (sec) | | | | | | 7.78 | | | | | | | | | | | | Back Extrap Vol (L) | | | | | | | | | | | | 0.08 | | | | | | Time | | | | | | To FEFmax (sec) | | | | | | | | | | | | 0.065 | | | | | | LUNG | | | | | | VOLUMESDIFFUSIONDLCOunc | | | | | | (ml/min/mmHg) | | | | | | 17.19 15.95 | | | | | | 92 | | | | | | DLCOadj (ml/min/mmHg) | | | | | | 17.19 | | | | | | 17.46 101 | | | | | | DL/VA | | | | | | (ml/min/mmHg/L) | | | | | | 3.40 3.86 | | | | | | 113 | | | | | | VA (L) | | | | | | | | | | | | 5.05 4.53 89 | | | | | | | | | | | | BHT (sec) | | | | | | | | | | | | 10.38 | | | | | | IVC | | | | | | (L) | | | | | | | | | | | | 2.86 | | | | | | TLC | | | | | | (SB) (L) | | | | | | | | | | | | 4.68 | | | | | | BLOOD | | | | | | GASESHgb (gm/dL) | | | | | | | | | | | | 10.9 | | | | | | | | | | | | Interpretation: | | | | | | INTERPRETATION: | | | | + + + + + + | FVC PRE | 2.81 | 3.07 L | [facility] | | | | | | SPECIAL | | | | | | DIAGNOSTICS | | | | | | - | | | | | | PULMONARY | | | | | | FUNCTION | | + + + + + + | FVC PRE | 91 | % | [facility] | | | (%REF) | | | SPECIAL | | | | | | DIAGNOSTICS | | | | | | - | | | | | | PULMONARY | | | | | | FUNCTION | | + + + + + + | FEV1 PRE | 2.20 | 2.33 L | [facility] | | | | | | SPECIAL | | | | | | DIAGNOSTICS | | | | | | - | | | | | | PULMONARY | | | | | | FUNCTION | | + + + + + + | FEV1 PRE | 94 | % | [facility] | | | (%REF) | | | SPECIAL | | | | | | DIAGNOSTICS | | | | | | - | | | | | | PULMONARY | | | | | | FUNCTION | | + + + + + + | FEV1/FVC | 78 | 76 % | [facility] | | | PRE | | | SPECIAL | | | | | | DIAGNOSTICS | | | | | | - | | | | | | PULMONARY | | | | | | FUNCTION | | + + + + + + | FEV1/FVC | 102 | % | [facility] | | | PRE (%REF) | | | SPECIAL | | | | | | DIAGNOSTICS | | | | | | - | | | | | | PULMONARY | | | | | | FUNCTION | | + + + + + + | PEF PRE | 6.06 | 5.80 L/sec | [facility] | | | | | | SPECIAL | | | | | | DIAGNOSTICS | | | | | | - | | | | | | PULMONARY | | | | | | FUNCTION | | + + + + + + | PEF PRE | 104 | % | [facility] | | | (%REF) | | | SPECIAL | | | | | | DIAGNOSTICS | | | | | | - | | | | | | PULMONARY | | | | | | FUNCTION | | + + + + + + | [id number]% | 1.79 | 2.00 L/sec | [facility] | | | PRE | | | SPECIAL | | | | | | DIAGNOSTICS | | | | | | - | | | | | | PULMONARY | | | | | | FUNCTION | | + + + + + + | [id number]% | 89 | % | [facility] | | | PRE (%REF) | | | SPECIAL | | | | | | DIAGNOSTICS | | | | | | - | | | | | | PULMONARY | | | | | | FUNCTION | | + + + + + + | FIF50% PRE | 5.04 | 4.37 L/sec | [facility] | | | | | | SPECIAL | | | | | | DIAGNOSTICS | | | | | | - | | | | | | PULMONARY | | | | | | FUNCTION | | + + + + + + | FIF50% PRE | 115 | % | [facility] | | | (%REF) | | | SPECIAL | | | | | | DIAGNOSTICS | | | | | | - | | | | | | PULMONARY | | | | | | FUNCTION | | + + + + + + | DLCO PRE | 15.95 | 17.19 | [facility] | | | | | ml/min/mmHg | SPECIAL | | | | | | DIAGNOSTICS | | | | | | - | | | | | | PULMONARY | | | | | | FUNCTION | | + + + + + + | DLCO PRE | 92 | % | [facility] | | | (%REF) | | | SPECIAL | | | | | | DIAGNOSTICS | | | | | | - | | | | | | PULMONARY | | | | | | FUNCTION | | + + + + + + | DLCO ADJ | 17.46 | 17.19 | [facility] | | | PRE | | ml/min/mmHg | SPECIAL | | | | | | DIAGNOSTICS | | | | | | - | | | | | | PULMONARY | | | | | | FUNCTION | | + + + + + + | DLCO ADJ | 101 | % | [facility] | | | PRE (%REF) | | | SPECIAL | | | | | | DIAGNOSTICS | | | | | | - | | | | | | PULMONARY | | | | | | FUNCTION | | + + + + + + | DLCO/VA ADJ | 3.86 | ml/min/mmHg/L | [facility] | | | PRE | | | SPECIAL | | | | | | DIAGNOSTICS | | | | | | - | | | | | | PULMONARY | | | | | | FUNCTION | | + + + + + + | DLCO/VA ADJ | 113 | % | [facility] | | | PRE (%REF) | | | SPECIAL | | | | | | DIAGNOSTICS | | | | | | - | | | | | | PULMONARY | | | | | | FUNCTION | | + + + + + [...] [facility] | [address] | [place], [place] | | | DIAGNOSTICS - | [address] | [address] | | | PULMONARY FUNCTION | | | | + + + + + documented in this encounter Visit Diagnoses + + | Diagnosis | + + | Neoplasm Neoplasm of unspecified nature, site unspecified | + + documented in this encounter
--- OUTSIDE RECORDS SUMMARY | ~2020-03-30 | XMS | Encounter Summary ---
Demographics + + + | Address | [address] | | | [place] [address] | + + + | Home Phone [...] Author | [facility] | | | and Jakobana | + + + | Organization | [facility] | | | and Jakobana | [...] Team Providers + +------+ + | Care Hospitalist Physician Name | Role | Phone | [...] Pharmacist / | Diagnoses | [facility] | Michelle, | | | | Oncology | Malignant | Medical | Renee Olvera, | | | | | neoplasm of | Oncology | PharmD [address] | | | | | upper lobe | Clinic [address] | | | | | of left lung | [address] | [place], | | | | | (HCC) | [place], | [place] [address] | | | | | Procedures | [place] | Phone: | | | | | [address] | [address] | [phone] | | | | | | Phone: | Fax: | | | | | | [phone] | [phone] | | | | | | Fax: | | | | | | | [phone] | | +--------+--------+ + + + + Encounter Details +--------+ + + + + | Date | Type | Department | Care Team | Description | +--------+ + + + + | 05/05/ | Hospital | [facility] | Renee Martinez | Malignant neoplasm | | 2019 | Encounter | [facility] | J, PharmD [address] | of upper lobe of | | | | [facility]OGY CLINIC [address] [place] | left lung (HCC); | | | | [address] [place] | [place] [address] | Acute post-operative | | | | [place] [address] | [phone] | pain; Acute | | | | [phone] | | respiratory distress | | | | | | syndrome (ARDS) | | | | | | (HCC); | | | | | | Hypophosphatemia; | | | | | | Malignant neoplasm | | | | | | of hilus of lung, | | | | | | unspecified | | | | | | laterality (HCC); | | | | | | [...] + + + | Blood Pressure | 126/77 | 05/05/2019 9:35 AM | | | | | PDT | | + + + + + | Pulse | 81 | 05/05/2019 9:35 AM | | | | | PDT | | + + + + + | Temperature | 36.8 C (98.2 F) | 05/05/2019 9:35 AM | | | | | PDT | | + + + + + | Respiratory Rate | - | - | | + + + + + | Oxygen Saturation | 97% | 05/05/2019 9:35 AM | | | | | PDT | | + + + + + | Inhaled Oxygen | - | - | | | Concentration | | | | + + + + + | Weight | 54 kg (119 lb 0.8 | 05/05/2019 9:31 AM | | | | oz) | PDT | | + + + + + | Height | - | - | | + + + + + | Body Mass Index | 19.83 | 01/30/2019 2:26 PM | | | [...] documented as of this encounter Progress Notes Renee Martinez, PharmD - 05/05/2019 10:04 AM PDTFormatting of this note might be differ ent from the original. Clinical Oncology Pharmacy Services Progress Note [facility] Pt. Name/Age/: Sussy Allred 69 y.o. 1950 CSN: [id number] Date of service: 05/05/2019 Provider: Renee Martinez PharmD, [facility] Identifying Statement: Sussy Allred is a 69 y.o. female from [address] [place] [address] [place] [address] [place] [address], Diagnoses of Malignant neoplasm of upper lobe of left lung (HCC), Acute post-operative pain, Acute respiratory distress syndrome (ARDS) (HCC), Hypophosphatemia, Ma lignant neoplasm of hilus of lung, unspecified laterality (HCC), and Postoperative anemia du e to acute blood loss were pertinent to this visit. The patient chart and medications were reviewed in detail and the patient was seen and exam ined. Patient was referred to Clinical Oncology Pharmacist for supportive care. Assessment and plan: Patients energy level and oral intake continue to be poor, though she was able to adequatel y hydrate herself over the weekend. She reports that her employer is mandating she returned to work today May 05, 2019. She is requesting a blood transfusion given her ongoing symptomatic anemia, and is hoping this will help boost her energy and allow her to complete some work for her employer. Her esophagitis is unchanged per her report, continues to manag e her pain with topical fentanyl and hydromorphone as needed for breakthrough pain. Laboratory data is notable for resolution of neutropenia and thrombocytopenia, however grad e 3 anemia persists. 1. Transfuse 2 units of packed red blood cells per patient request. 2. Continue current pain management as outlined by Dr. Mata. 3. Follow-up with Dr. Mata in 1 week. Subjective: The patient chart and medications were reviewed in detail and the patient was seen and exam ined. Sussy Allred is a 69 y.o. female with non-small cell lung cancer, here for supportive c are. Patient is relatively stable compared to last week's office visit, she was hoping her energ y would improve more and it helped her pain would be resolving. However, does appear that h er pain is well controlled with topical fentanyl and oral hydromorphone for breakthrough tiffanie n. She states she has been "making myself" drink fluids and protein shakes. She did gain 1 kg of weight since her last office visit 1 week ago, and does not appear dehydrated clinica lly. Her energy continues to be low, really unchanged per her report. Continues to have na usea and occasional dry heaves, also unchanged. Her previous mouth soreness is improving, s wallowing is unchanged. Her biggest issue right now is returning to work after being off fo r nearly 5 months, she states that her employer is "mandating" that she come into work today . She is unsure of how much work she will be able to complete, this is really hoping her a blood transfusion will subjectively improve her fatigue. She denies any fevers, chills, or changes in breathing. No bruising or bleeding noted on exam. 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 Raynaud phenomenon Reaction to chronic stress Rosacea Social & Family Hx: Social History Socioeconomic History Marital status: Single Spouse name: Not on file Number of children: Not on file Years of education: Not on file Highest education level: Not on file Tobacco Use Smoking status: Former Smoker Packs/day: 0.50 Years: 7.00 Pack years: 3.50 Start date: 08/20/2004 Last attempt to quit: 08/20/2011 Years since quittin.7 Smokeless tobacco: Never Used Substance and Sexual Activity Alcohol use: Yes Alcohol/week: 4.2 oz Types: 7 Glasses of wine per week Drug use: Never Family History Problem Relation Age of Onset Other (see comment) Father pancreatic disease, unsure if it was cancer Macular degen Mother Review of Systems: Constitutional: Reports energy is low, continues unchanged. Reports constant nausea and occ asional dry heaves. Denies high fevers, shaking chills, anorexia, weight loss, or night s weats. Appetite without changes, continues to be low. Ear, Nose, Mouth, Throat: Reports she has a few mouth sores on the inside of her lower lip but states they are getting better. Reports difficulty swallowing, continues unchanged. De nies tinnitus. Cardiovascular: Reports constant shortness of breath with rest and activity, continues unch anged. Reports sharp chest pain to lower end of sternum, continues unchanged. Denies palpita tions or orthopnea. Respiratory: Continues with dry non productive cough, states she thinks its due to allergie s. Denies hemoptysis, or sputum production. Gastrointestinal: Denies abdominal pain, constipation, diarrhea, melena, or bright red bloo d per rectum. Genitourinary: Denies hematuria or dysuria. Musculoskeletal: Denies joint pain or tenderness. Neurologic: Reports vision to her left eye has black dots and appears "spider like" to her, she states she will be seeing her eye doctor about this. Reports tingling to hands, continu es unchanged. Denies headache. Endocrine: Reports swelling to hands and ankles which started in the past week. Reports col d intolerance continues unchanged. Denies heat intolerance. Hematologic: Denies spontaneous bruising or bleeding. Integumentary: Denies rash, wounds or other skin concerns. Pain: Reports lower sternal pain /. Review of systems as above, otherwise negative Medications: Current Outpatient Medications Medication Sig acetaminophen (TYLENOL) 325 mg tablet Take 325-650 mg by mouth every 6 hours as needed. acetaminophen-codeine 120-12 mg/5 mL solution Take 5 mLs by mouth every 6 hours as need ed for Pain. acyclovir (ZOVIRAX) 400 MG tablet Take 400 mg by mouth Daily. ALPRAZolam (XANAX) 0.5 mg tablet 0.5 mg nightly as needed (taking every night.). Amino Acids (AMINO ACID PO) Take 1 [...] otherapy and for two days after chemotherapy. guzcwgloenUGCZQ-ayeqhlvcy-ifbssvth & magnesium hydroxide-simethicone (MAGIC MOUTHWASH) Take 5 mLs by mouth every 4 hours as needed for Pain. (RECIPE = 1:1:1 mixture of Maalox, dip henhydrAMINE, viscous lidocaine) estradiol (ESTRACE) 2 MG tablet Take 2 mg by mouth Daily. fentaNYL (DURAGESIC) 50 mcg/hr Place 1 patch onto the skin every 72 hours. folic acid 1 mg tablet Take 1 tablet by mouth Daily for 100 days. gabapentin (NEURONTIN) 300 mg capsule Take one capsule by mouth at bedtime for one day, then one capsule twice daily for one day, then 1 capsule three times daily HYDROmorphone (DILAUDID) 2 mg tablet Take 1 tablet by mouth every 3 hours as needed for Pain. lansoprazole (PREVACID) [address] capsule Take 30 mg by mouth Daily. levothyroxine (SYNTHROID) 50 mcg tablet Take 50 mcg by mouth Daily. Lidocaine HCl (MAGIC + NYSTATIN MOUTHWASH) Take 5 mLs by mouth every 4 hours. LORazepam (ATIVAN) 1 mg tablet Take one tablet orally every 4 hours as needed for nause a, anxiety or sleeplessness Misc Natural Products (HIMALAYAN GOJI PO) Take 2 oz by mouth Daily. mometasone (ELOCON) 0.1 % cream Apply twice a day to affected area non-formulary medication Take 3 oz by mouth Daily. Nopalea supplement ondansetron (ZOFRAN ODT) 8 mg disintegrating tablet One tablet twice a day for two days after chemotherapy to block nausea prochlorperazine 10 mg tablet Take 1 tablet by mouth every 6 hours as needed for Nausea . sucralfate (CARAFATE) 1 g tablet Take 1 tablet by mouth 4 times daily. triamterene-hydrochlorothiazide (MAXZIDE-25) 37.5-25 mg per tablet Take 0.5 tablets by mouth Daily. No current facility-administered medications for this encounter. Allergies: Allergies Allergen Reactions Ketorolac Anaphylaxis Adhesive & Tape Dermatitis Latex Rash Vitals: Temp: 36.8 C (98.2 F) BP: 126/77 Pulse: 81 SpO2: 97 % on Temp :Temp Av.8 C (98.2 F) Min: 36.8 C (98.2 F) Max: 36.8 C (98.2 F) No intake or output data in the 24 hours ending 05/05/19 1004 Wt. Current: Weight: 54 kg (119 lb 0.8 oz) Diagnostic studies: Available data and images were reviewed personally. See reports. Significant results and findings are addressed here or in the Assessment and Plan. Recent Labs Lab 05/05/19 0910 WBC 3.8* HGB 7.9* HCT 24.0* PLT 160 Recent Labs Lab 05/05/19 0910 NA 135* K 3.9 CL 104 CO2 23 BUN 13 CREA 0.87 GLU 106 CALCIUM 9.3 BILITOT 0.3 AST 19 ALT 12 ALKPHOS 89 ALBUMIN 3.7 Imaging: No results found. Renee Martinez PharmD, BCOP Referring Provider: Dr. Mata Supervising Provider: Dr. Mata aine, Simba Murray RN - 05/05/2019 9:30 AM PDTREVIEW OF SYSTEMS Constitutional: Reports energy is low, continues unchanged. Reports constant nausea and occ asional dry heaves. Denies high fevers, shaking chills, anorexia, weight loss, or night s weats. Appetite without changes, continues to be low. Ear, Nose, Mouth, Throat: Reports she has a few mouth sores on the inside of her lower lip but states they are getting better. Reports difficulty swallowing, continues unchanged. De nies tinnitus. Cardiovascular: Reports constant shortness of breath with rest and activity, continues unch anged. Reports sharp chest pain to lower end of sternum, continues unchanged. Denies palpita tions or orthopnea. Respiratory: Continues with dry non productive cough, states she thinks its due to allergie s. Denies hemoptysis, or sputum production. Gastrointestinal: Denies abdominal pain, constipation, diarrhea, melena, or bright red bloo d per rectum. Genitourinary: Denies hematuria or dysuria. Musculoskeletal: Denies joint pain or tenderness. Neurologic: Reports vision to her left eye has black dots and appears "spider like" to her, she states she will be seeing her eye doctor about this. Reports tingling to hands, continu es unchanged. Denies headache. Endocrine: Reports swelling to hands and ankles which started in the past week. Reports col d intolerance continues unchanged. Denies heat intolerance. Hematologic: Denies spontaneous bruising or bleeding. Integumentary: Denies rash, wounds or other skin concerns. Pain: Reports lower sternal pain 04/29. Note: Here for follow up, labs and possible IV hydration My chart: Declined documented in this encounter Plan of Treatment [...] | | | | | | [place] [id number] | | | | | | [phone] | | | | | | | | +--------+ + + + + documented as of this encounter Procedures + +--------+ + + + | Procedure Name | Priori | Date/Time | Associated Diagnosis | Comments | | | ty | | | | + +--------+ + + + | CBC W/AUTO | STAT | 05/05/2019 | Malignant neoplasm | Results for this | | DIFFERENTIAL | | 9:10 AM | of upper lobe of | procedure are in the | | | | PDT | left lung (HCC) | results section. | + +--------+ + + + | EXTRA BLOOD BANK | STAT | 05/05/2019 | Malignant neoplasm | Results for this | | TUBE | | 9:10 AM | of upper lobe of | procedure are in the | | | | PDT | left lung (HCC) | results section. | + +--------+ + + + | LACTATE | STAT | 05/05/2019 | Malignant neoplasm | Results for this | | DEHYDROGENASE | | 9:10 AM | of upper lobe of | procedure are in the | | | | PDT | left lung (HCC) | results section. | + +--------+ + + + | COMPREHENSIVE | STAT | 05/05/2019 | Malignant neoplasm | Results for this | | METABOLIC PANEL | | 9:10 AM | of upper lobe of | procedure are in the | | | | PDT | left lung (HCC) | results section. | + +--------+ + + + documented in this encounter Results Lactate Dehydrogenase (05/05/2019 9:10 AM PDT) + + + + + + | Component | Value | Ref Range | Performed | Pathologist | | | | | At | Signature | + + + + + + | LDH TOTAL | 280 (H)Comment: New | 120 - 246 U/L | [facility] | | | | method in use as of | | [facility] | | | | October 16, 2018. Check | | MEDICAL | | | | reference range for | | CENTER - | | | | changes.Some analytes | | LABORATORY | | | | show significant | | | | | | variation from the | | | | | | previous method.It may | | | | | | be necessary to set a | | | | | | new baseline for this | | | | | | analyte. | | | | + + + + + + + + | Specimen | + + | Blood | + + + + + + + | Performing | Address | City/State/Zipcode | Phone Number | | Organization | | | | + + + + + | [facility] | [address] | [place] | [phone] | | [facility] | | [address] | | | - LABORATORY | | | | + + + + + Extra Blood Bank Tube (05/05/2019 9:10 AM PDT) + + + + + + | Component | Value | Ref Range | Performed | Pathologist | | | | | At | Signature | + + + + + + | Hold BB | Hold Specimen | | [facility] | | | | | | [facility] | | | | | | [...] St | [place] | | | [facility] | | [address] | | | - BLOOD BANK | | | | + + + + + Comprehensive Metabolic Panel (05/05/2019 9:10 AM PDT) + + + + + [...] | | | | mmol/L | [facility] | | | | | | MEDICAL | | | | | | CENTER - | | | | | | LABORATORY | | + + + + + + | Cl | 104 | 98 - 107 mmol/L | [facility] | | | | | | [facility] | | | | | | [facility] | | | | | | CENTER - | | | | | | LABORATORY | | + + + + + + | CO2 | 23 | 20 - 31 mmol/L | [facility] [...] + + + + | Glucose | 106 | 60 - 106 mg/dL | [facility] | | | | | | [facility] | | | | | | [facility] | | | | | | CENTER - | | | | | | LABORATORY | | + + + + + + | BUN | 13 | 9 - 23 mg/dL | [facility] | | | | | | [facility] | | | | | | [facility]ICAL | | | | | | CENTER - | | | | | | LABORATORY | | + + + + + + | Creatinine | 0.87 | 0.55 - 1.02 | [facility] | | | | | mg/dL | [facility] | | | | | | MEDICAL | | | | | | CENTER - | | | | | | LABORATORY | | + + + + + + | eGFR, | >60Comment: GLOMERULAR | >=60 | [facility] | | | non- | FILTRATION | mL/min/1.73m2 | [facility] | | | [facility] | RATE,ESTIMATED | | MEDICAL | | | | mL/min/1.70j4Txez than | | CENTER - | | [...] + + + + | Calcium | 9.3 | 8.7 - 10.4 | [facility] | | | | | mg/dL | [facility] | | | | | | MEDICAL | | | | | | CENTER - | | | | | | LABORATORY | | + + + + + + | Albumin | 3.7 | 3.2 - 4.8 g/dL | [facility] [...] + + + + | Total | 6.0 | 5.7 - 8.2 g/dL | [facility] | | | Protein | | | [facility] | | | | | | MEDICAL | | | | | | CENTER - | | | | | | LABORATORY | | + + + + + + | AST | 19 | 0 - 34 U/L | [facility] | | | | | | [facility] | | | | | | [facility]ICAL | | | | | | CENTER - | | | | | | LABORATORY | | + + + + + + | ALT | 12 | 10 - 49 U/L | [facility] | | | | | | [facility] | | | | | | [facility]ICAL | | | | | | CENTER - | | | | | | LABORATORY | | + + + + + + | Alkaline | 89 | 46 - 116 U/L | [facility] [...] + + + + | BUN/Creatin | 14.9 | | [facility] | | | ine [...] [address] | [place] | [phone] | | [facility] | | [address] | | | - LABORATORY | | | | + + + + + CBC w/ Auto Differential (05/05/2019 9:10 AM PDT) + + + + + + | Component | Value | Ref Range | Performed | Pathologist | | | | | At | Signature | + + + + + + | White Blood | 3.8 (L) | 4.0 - 11.0 K/uL | [facility] | | | Cells | | | [facility] | | | | | | MEDICAL | | | | | | CENTER - | | | | | | LABORATORY | | + + + + + + | Red Blood | 2.29 (L) | 3.70 - 5.20 | [facility] | | | Cells | | M/uL | [facility] | | | | | | MEDICAL | | | | | | CENTER - | | | | | | LABORATORY | | + + + + + + | Hemoglobin | 7.9 (L) | 11.5 - 16.0 | [facility] | | | | | g/dL | [facility] | | | | | | MEDICAL | | | | | | CENTER - | | | | | | LABORATORY | | + + + + + + | Hematocrit | 24.0 (L) | 34.0 - 47.0 % | [facility] | | | | | | [facility] | | | | | | [facility]ICAL | | | | | | CENTER - | | | | | | LABORATORY | | + + + + + + | MCV | 104.8 (H) | 83.0 - 101.0 fL | [facility] | | | | | | [facility] | | | | | | [facility]ICAL | | | | | | CENTER - | | | | | | LABORATORY | | + + + + + + | MCH | 34.5 | 28.0 - 35.0 pg | [facility] [...] + + + + | RDW-CV | 23.1 (H) | <15.0 % | [facility] | | | | | | [facility] | | | | | | [facility]ICAL | | | | | | CENTER - | | | | | | LABORATORY | | + + + + + + | RDW-SD | 87.3 (H) | 35.1 - 46.3 fL | [facility] | | | | | | [facility] | | | | | | [facility]ICAL | | | | | | CENTER - | | | | | | LABORATORY | | + + + + + + | Platelet | 160 | 140 - 440 K/uL | [facility] | | | Count | | | [facility] | | | | | | MEDICAL | | | | | | CENTER - | | | | | | LABORATORY | | + + + + + + | MPV | 8.8 | 6.5 - 12.4 fL | [facility] | | | | | | [facility] | | | | | | [facility]ICAL | | | | | | CENTER - | | | | | | LABORATORY | | + + + + + + | % | 63.3 | 45.0 - 82.0 % | [facility] | | | Neutrophils | | | [facility] | | | | | | MEDICAL | | | | | | CENTER - | | | | | | LABORATORY | | + + + + + + | % | 15.2 (L) | 20.0 - 45.0 % | [facility] | | | Lymphocytes | | | [facility] | | | | | | MEDICAL | | | | | | CENTER - | | | | | | LABORATORY | | + + + + + + | % Monocytes | 20.2 (H) | 4.0 - 12.0 % | [facility] | | | | | | [facility] | | | | | | [facility]ICAL | | | | | | CENTER - | | | | | | LABORATORY | | + + + + + + | % | 0.5 | 0.0 - 5.0 % | [facility] | | | Eosinophils | | | [facility] | | | | | | MEDICAL | | | | | | CENTER - | | | | | | LABORATORY | | + + + + + + | % Basophils | 0.5 | 0.0 - 1.0 % | [facility] | | | | | | [facility] | | | | | | [facility]ICAL | | | | | | CENTER - | | | | | | LABORATORY | | + + + + + + | % Immature | 0.3 | 0.0 - 0.4 % | [facility] | | | Granulocyte | | | [facility] | | | s | | | MEDICAL | | | | | | CENTER - | | | | | | LABORATORY | | + + + + + + | Absolute | 2.38 | 1.80 - 8.50 | [facility] | | | Neutrophils | | K/uL | [facility] | | | | | | MED[facility] | | | | | | CENTER - | | | | | | LABORATORY | | + + + + + + | Absolute | 0.57 (L) | 0.60 - 3.20 | [facility] | | | Lymphocytes | | K/uL | [facility] | | | | | | MEDICAL | | | | | | CENTER - | | | | | | LABORATORY | | + + + + + + | Absolute | 0.76 | 0.00 - 1.00 | [facility] | | | Monocytes | | K/uL | [facility] | | | | | | MEDICAL | | | | | | CENTER - | | | | | | LABORATORY | | + + + + + + | Absolute | 0.02 | 0.00 - 0.40 | [facility] | | | Eosinophils | | K/uL | [facility] | | | | | | MEDICAL | | | | | | CENTER - | | | | | | LABORATORY | | + + + + + + | Absolute | 0.02 | 0.00 - 0.10 | [facility] | | | Basophils | | K/uL | [facility] | | | | | | MEDICAL | | | | | | CENTER - | | | | | | LABORATORY | | + + + + + + | Absolute | 0.01 | 0.00 - 0.03 | [facility] | [...] | 0.00 | 0.00 - 0.01 | [facility] | | | nRBC | | K/uL [...] ST. | [address] | [place] | [phone] | | [facility] | | [address] | | | - LABORATORY | | | | + + + + + documented in this encounter Visit Diagnoses + + | Diagnosis | + + | Malignant neoplasm of upper lobe of left lung (HCC) | + + | Acute post-operative pain | + + | Acute respiratory distress syndrome (ARDS) (HCC) Other pulmonary insufficiency, not | | elsewhere classified, following trauma and surgery | + + | Hypophosphatemia Disorders of phosphorus metabolism | + + | Malignant neoplasm of hilus of lung, unspecified laterality (HCC) | + + | Postoperative anemia due to acute blood loss Acute posthemorrhagic anemia | + + documented in this encounter
--- OUTSIDE RECORDS SUMMARY | ~2020-03-30 | XMS | Encounter Summary ---
Demographics + + + | Address | [address] | | | [place] [address] | + + + | Home Phone | | + + + | Preferred Language | Unknown | + + + | Marital Status | Single | + + + | Baptist Affiliation | Unknown | + + + | Race | Unknown | + + + | Ethnic Group | Unknown | + + + Author + + + | Author | [facility] | | | and Jakobana | + + + | Organization | [facility] | | | and Jakobana [...] Team Providers + +------+ + | Care Supervisor Harvesting Name | Role | Phone | + [...] Radiology | Diagnoses | Dayana, | [facility] | | | | | Malignant | Fiona M, | [address] | | | | | neoplasm of | MD [address] | [place], | | | | | upper lobe | [address] | [place] | | | | | of left lung | [place], | [address] | | | | | (HCC) | [place] [address] | Phone: | | | | | Abnormal MRI | Phone: | [phone] | | | | | of head | [phone] | Fax: | | | | | Procedures | Fax: | [phone] | | | | | MRI Brain w | [phone] | | | | | | wo Contrast | | | +--------+--------+ + + + + Encounter Details +--------+ + + + + | Date | Type | Department | Care Team | Description | +--------+ + + + + | 03/17/ | Orders Only | [facility] | Fiona Anne | Malignant neoplasm | | 2019 | | MED CTR RADIATION | MD Issa [address] | of upper lobe of | | | | ONCOLOGY CLINIC [address] | [place] | left lung (HCC) | | | | [address] | [address] | (Primary Dx); | | | | [place] [address] | | Abnormal MRI of head | | | | [phone] | | | +--------+ + + + [...] | | | | | [place] [address] | | | | | | [phone] | | | | | | | | +--------+ + + + + documented as of this encounter Results MRI Brain w wo Contrast (04/14/2019 3:08 PM PDT) + + | Specimen | + + | | + + + + + | Narrative | Performed At | + + + | UNENHANCED AND ENHANCED BRAIN MRI 04/14/2019 2:52 PM CLINICAL | [facility] | | HISTORY: Lung cancer, follow-up abnormal MRI with possible metastases | | | COMPARISON: MRI March 14 and November 26 TECHNIQUE: The | | | following 3T MR sequences of the brain were obtained: 1. Axial, | | | coronal and sagittal 3-D T1. 2. Axial T2, FLAIR, SWI, DWI and ADC. | | | 3. Following the uneventful intravenous administration of ?5 mL | | | Gadavist, axial, sagittal and coronal 3-D T1 sequences were obtained. | | | FINDINGS: Previously described enhancing foci in the occipital | | | regions are better demonstrated to reflect serpiginous, small caliber | | | extra-axial cortical vessels. There is minimal stable T2/FLAIR | | | hyperintensity involving the adjacent occipital lobe parenchyma, | | | without parenchymal enhancement or mass effect. Few tiny T2/FLAIR | | | hyperintense foci are again scattered about the frontoparietal | | | cerebral white matter, and are stable in size and number without | | | associated enhancement. There is minimal stable hyperintensity of | | | the periventricular white matter. There is a stable benign | | | developmental venous anomaly in the left cerebellar hemisphere. The | | | ventricles, brainstem and cerebellum otherwise appear normal. | | | There is no abnormal diffusion restriction, evidence of | | | intracranial hemorrhage or extra-axial fluid collection/mass. Mild | | | mucous membrane thickening persists within bilateral ethmoid air | | | cells. Fluid persists within the inferior left mastoid air cells. | | | The orbits, sellar region, right mastoid air cells, basilar | | | cisterns and osseous structures are unremarkable. Asymmetric smaller | | | caliber of the imaged distal right vertebral artery is again | | | evident, potentially reflecting a developmental variant. Major | | | intracranial vessels and dural sinuses otherwise appear patent and | | | grossly unremarkable. IMPRESSION - 1. NO EVIDENCE OF | | | INTRACRANIAL METASTATIC DISEASE. ENHANCEMENT DESCRIBED IN THE | | | OCCIPITAL REGIONS ON PREVIOUS IMAGING CORRESPONDS WITH SERPIGINOUS | | | EXTRA-AXIAL VESSELS. MINIMAL T2/FLAIR HYPERINTENSITY OF THE ADJACENT | | | OCCIPITAL PARENCHYMA IS UNCHANGED AND MAY REFLECT ASSOCIATED | | | GLIOSIS. 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 2. SIMILAR TINY, NON-ENHANCING T2/FLAIR | | | HYPERINTENSE FOCI IN THE FRONTOPARIETAL WHITE MATTER, FAVORING | | | CHRONIC, MICROVASCULAR ISCHEMIC GLIOSIS. 3. SIMILAR MILD ETHMOID | | | SINUS AND LEFT MASTOID DISEASE. Dictated and Signed by: Lucio | | | MD Arden Electronically signed: 04/14/2019 3:43 PM | | + + + + + | Procedure Note | + + | Cristhian, Rad Results In - 04/14/2019 3:46 PM PDT UNENHANCED AND ENHANCED BRAIN MRI | | 04/14/2019 2:52 PMCLINICAL HISTORY: Lung cancer, follow-up abnormal MRI with possible | | metastases COMPARISON: MRI March 14 and November 26TECHNIQUE: The following 3T MR | | sequences of the brain were obtained:1. Axial, coronal and sagittal 3-D T1.2. Axial | | T2, FLAIR, SWI, DWI and ADC.3. Following the uneventful intravenous administration of | | ?5 mL Gadavist,axial, sagittal and coronal 3-D T1 sequences were obtained.FINDINGS: | | Previously described enhancing foci in the occipital regions arebetter demonstrated to | | reflect serpiginous, small caliber extra-axial corticalvessels. There is minimal stable | | T2/FLAIR hyperintensity involving the adjacentoccipital lobe parenchyma, without | | parenchymal enhancement or mass effect. Fewtiny T2/FLAIR hyperintense foci are again | | scattered about the frontoparietalcerebral white matter, and are stable in size and | | number without associatedenhancement. There is minimal stable hyperintensity of the | | periventricularwhite matter. There is a stable benign developmental venous anomaly in | | the leftcerebellar hemisphere. The ventricles, brainstem and cerebellum otherwiseappear | | normal. There is no abnormal diffusion restriction, evidence ofintracranial hemorrhage | | or extra-axial fluid collection/mass. Mild mucousmembrane thickening persists within | | bilateral ethmoid air cells. Fluid persistswithin the inferior left mastoid air cells. | | The orbits, sellar region, rightmastoid air cells, basilar cisterns and osseous | | structures are unremarkable. Asymmetric smaller caliber of the imaged distal right | | vertebral artery is againevident, potentially reflecting a developmental variant. Major | | intracranialvessels and dural sinuses otherwise appear patent and grossly | | unremarkable.IMPRESSION -1. NO EVIDENCE OF INTRACRANIAL METASTATIC DISEASE. | | ENHANCEMENT DESCRIBED INTHE OCCIPITAL REGIONS ON PREVIOUS IMAGING CORRESPONDS WITH | | SERPIGINOUSEXTRA-AXIAL VESSELS. MINIMAL T2/FLAIR HYPERINTENSITY OF THE ADJACENT | | OCCIPITALPARENCHYMA IS UNCHANGED AND MAY REFLECT ASSOCIATED GLIOSIS. THERE IS A | | STABLEDEVELOPMENTAL VENOUS ANOMALY IN THE LEFT CEREBELLAR HEMISPHERE.2. SIMILAR TINY, | | NON-ENHANCING T2/FLAIR HYPERINTENSE FOCI IN THE FRONTOPARIETALWHITE MATTER, FAVORING | | CHRONIC, MICROVASCULAR ISCHEMIC GLIOSIS.3. SIMILAR MILD ETHMOID SINUS AND LEFT MASTOID | | DISEASE.Dictated and Signed by: Lucio Her MD Electronically signed: 04/14/2019 3:43 | | PM | | | |IMPRESSION - | |1. NO EVIDENCE OF INTRACRANIAL METASTATIC DISEASE. ENHANCEMENT DESCRIBED IN | |THE OCCIPITAL REGIONS ON PREVIOUS IMAGING CORRESPONDS WITH SERPIGINOUS | |EXTRA-AXIAL VESSELS. MINIMAL T2/FLAIR HYPERINTENSITY OF THE ADJACENT OCCIPITAL | |PARENCHYMA IS UNCHANGED AND MAY REFLECT ASSOCIATED GLIOSIS. THERE IS A STABLE | |DEVELOPMENTAL VENOUS ANOMALY IN THE LEFT CEREBELLAR HEMISPHERE. | | | |2. SIMILAR TINY, NON-ENHANCING T2/FLAIR HYPERINTENSE FOCI IN THE FRONTOPARIETAL | |WHITE MATTER, FAVORING CHRONIC, MICROVASCULAR ISCHEMIC GLIOSIS. | | | |3. SIMILAR MILD ETHMOID SINUS AND LEFT MASTOID DISEASE. | | | |Dictated and Signed by: Lucio Her MD | | Electronically signed: 04/14/2019 3:43 PM | + + + +---------+ + [...] (HCC) - Primary | + + | Abnormal MRI of head Nonspecific (abnormal) findings on radiological and other | | examination of skull and head | + + documented in this encounter"
--- OUTSIDE RECORDS SUMMARY | ~2020-03-30 | XMS | Encounter Summary ---
Demographics + + + | Address | [address] | | | [place] [address] | + + + | Home Phone | | + + + | Preferred Language | Unknown | + + + | Marital Status | Single | + + + | Taoism Affiliation | Unknown | + + + | Race | Unknown | + + + | Ethnic Group | Unknown | + + + Author + + + | Author | [facility] | | | and Jakobana | + + + | Organization | [facility] [...] Team Providers + +------+ + | Care Addictions Recovery Specialist Name | Role | Phone | [...] | | of left lung | [address] | [place], | | | | | (HCC) | [place], | [place] [address] | | | | | Procedures | [place] | Phone: | | | | | [address] | [address] | [phone] | | | | | | Phone: | Fax: | | | | | | [phone] | [phone] | | | | | | Fax: | | | | | | | [phone] | | +--------+--------+ + + + + Encounter Details +--------+ + + + + | Date | Type | Department | Care Team | Description | +--------+ + + + + | 12/14/ | Hospital | [facility] | Adolfo, | Malignant neoplasm | | 2020 | Encounter | MED CTR MED[facility] | Boubacar Daniels MD [address] | of left lung, | | | | ONCOLOGY CLINIC [address] | [facility] [place] | unspecified part of | | | | [address] | [address] [place], [place] | lung (HCC) | | | | [place] [address] | [address] | | | | | [phone] | | | +--------+ + + + [...] + + + | Blood Pressure | 124/63 | 12/15/2019 10:14 AM | | | | | PDT | | + + + + + | Pulse | 82 | 12/15/2019 10:14 AM | | | | | PDT | | + + + + + | Temperature | 36.7 C (98 F) | 12/15/2019 10:14 AM | | | | | PDT | | + + + + + | Respiratory Rate | 18 | 12/15/2019 10:14 AM | | | | | PDT | | + + + + + | Oxygen Saturation | 99% | 12/15/2019 10:14 AM | | | | | PDT [...] patch onto | 10 | 0 | 12/05/19 | | | (DURAGESIC) 50 | the skin every 72 | patch | | 20 | 0 | | mcg/hrIndications: | hours. | | | | | | Malignant neoplasm | | | | | | | of hilus of lung, | | | | | | | unspecified | | | | | | | laterality (HCC) | | | | | | + + + +---------+ + + | | Take one to two | 90 | 0 | 12/05/19 | | | HYDROcodone-acetamin | tablets orally every | tablet | | 20 | 0 | | ophen (NORCO) | [...] encounter Progress Notes Boubacar Mata MD - 12/15/2019 9:40 AM PDTFormatting of this note might be differe nt from the original. Hematology/Oncology Progress Note [facility] [place] Pt. Name/Age/: Sussy Allred 69 y.o. 1950 Med. Record Number: [id number] Date of admission: 12/15/2019 The patient's primary care provider is Lauryn Stuart PA-C. Identifying Statement: Sussy Allred is a 69 y.o. female [place] [address] [place] [id number] with Stage IIIA poorly differentiated adenocarcinoma of [...] nodes (SUZE Kumar). Patholog ical specimen # [id number] was notable for a poorly differentiated adenocarcinoma, [...] 19. Left medialization thyroplasty implant (Augustine Nolan, [facility]) October 09, 2019. Current Assessment & Plan Sussy Allred returned to clinic on 12/15/2019 with no one for follow-up of Stage IIIA non-small cell lung cancer status post triple-modality therapy. Interval history; Katharina is no longer working at [employer]. Review of systems; She complains of constant anterior thorax pain. She reports difficult sw allowing thick liquids. Physical exam; Diffuse tenderness to palpation of the anterior thorax. Clinical Data; no new clinical data to review. Assessment; Stage IIIA non-small cell lung cancer, status post triple modality therapy. Post-thoracotomy pain syndrome. Clear outline of the Treatment Plan; Increase supply of Hydrocodone/APAP 7.5/325 to #150 fo r 30 days. Dose reduce topical fentanyl with next fill to 25 mcg/hr. Timing of follow-up imaging; Dr. Fiona Anne is directing imaging. Follow Up; one month to review pain management and to review imaging directed by Dr. Camelia muir. Review of Systems: Constitutional: Pt reports she feels totally exhausted. Pt reports ongoing night sweats, b ut they are decreased. Denies high fevers, shaking chills, anorexia, nausea, vomiting, or we ight loss. Appetite without changes. Ear, Nose, Mouth, Throat: Pt reports worsening of dysphagia. Does continue complaints tinni tus. Denies odynophagia. Cardiovascular: Pt reports dyspnea, more with exertion. Patient feels the shortness of pavan th is not increasing. Pt reports continued pain to left chest wall, with progressing to the right breast since the last visit. Denies shortness of breath, palpitations or orthopnea. Respiratory: Patient complains of a dry cough., hemoptysis, or sputum production. Gastrointestinal: Denies abdominal pain, constipation, diarrhea, melena, or bright red bloo d per rectum. Genitourinary: Denies hematuria or dysuria. Musculoskeletal: Denies joint pain or tenderness. Neurologic: Pt reports increased headaches recently. Notes increased issues with Raynauds. Denies visual changes or numbness/tingling of the extremities. Endocrine: Denies peripheral edema or heat/cold intolerance. Hematologic: Denies spontaneous bruising or bleeding. Integumentary: Continued hair loss. Pt has incision to neck from recent surgery, continues to heal well with some sensitivity. Denies rash other skin concerns. Pain:Notes increased neck pain, with migraine, with the decreased pain medication. ROS otherwise negative Note: here for follow-up w/ Dr Mata My chart: Declined Scheduled Medications: Current Outpatient [...] skin every 72 hours. 10 patch 0 ferrous sulfate (IRON) 28 MG TABS Take 28 mg by mouth Daily. HYDROcodone-acetaminophen (NORCO) 7.5-325 mg per tablet Take one to two tablets orally every 6 hours as needed for pain, maximum 6 tablets a day. 90 tablet 0 lansoprazole (PREVACID) [address] [...] Last attempt to quit: 08/20/2011 Years since quittin.3 Smokeless tobacco: Never Used Substance and Sexual [...] file Gets together: Not on file Attends hindu service: Not on file Active member of [...] was cancer Macular degen Mother Objectives: Temp: 36.7 C (98 F) BP: 124/63 Pulse: 82 Resp: 18 SpO2: 99 % on Min/Max Temp past 24 hours:No data recorded No intake or output data in the 24 hours ending 12/20/19 1610 Wt. Admission: Wt. Current: Wt Readings from [...] Am. J. Clin. Oncol.: Niranjan Lopez., Romeo, Beronica., Renaldo Parish., Nico Avery, Turner TBritni., Suzanne [...] this chart may have been created with Grokker voice recognition software. Occasi onal wrong-word or sound-alike substitutions may have occurred due to the inherent tripathi itations of voice recognition software. Please read the chart carefully and recognize, using context, where these substitutions have occurred. documented in this encounter Miscellaneous Notes Assessment & Plan Note - Boubacar Mata MD - 12/20/2019 4:04 PM PDTAssociated Prob kati(s): Lung cancer (HCC)Sussy Halima Allred returned to clinic on 12/15/2019 with no one for fo llow-up of Stage IIIA non-small cell lung cancer status post triple-modality therapy. Interval history; Katharina is no longer working at [employer]. Review of systems; She complains of constant anterior thorax pain. She reports difficult sw allowing thick liquids. Physical exam; Diffuse tenderness to palpation of the anterior thorax. Clinical Data; no new clinical data to review. Assessment; Stage IIIA non-small cell lung cancer, status post triple modality therapy. Post-thoracotomy pain syndrome. Clear outline of the Treatment Plan; Increase supply of Hydrocodone/APAP 7.5/325 to #150 fo r 30 days. Dose reduce topical fentanyl with next fill to 25 mcg/hr. Timing of follow-up imaging; Dr. Fiona Anne is directing imaging. Follow Up; one month to review pain management and to review imaging directed by Dr. Camelia batres documented in t his encounter Plan of [...] [place] | | | | | | [place] [address] | | | | | | [phone] | | | | | | | | +--------+ + + + + documented as of this encounter Visit Diagnoses + + | Diagnosis | + + | Malignant neoplasm of left lung, unspecified part of lung (HCC) | + + documented in this encounter"
--- OUTSIDE RECORDS SUMMARY | ~2020-03-30 | XMS | Encounter Summary ---
Demographics + + + | Address | [address] | | | [place] [address] | + + + | Home Phone | | + + + | Preferred Language | Unknown | + + + | Marital Status | Single | + + + | Pentecostal Affiliation | Unknown | + + + | Race | Unknown | + + + | Ethnic Group | Unknown | + + + Author + + + | Author | [facility] | | | and Jakobana | + + + | Organization | [facility] | | | and [...] Team Providers + +------+ + | Care Intravenous Therapy Nurse Name | Role | Phone | [...] | +--------+ + + + + | 04/03/ | Hospital | [facility] | Rajiv Fritz DO | Malignant neoplasm | | 2019 | Encounter | MED CTR RADIATION | [address] | of upper lobe of | | | | ONCOLOGY CLINIC [address] | [place], [place] | left lung (HCC) | | | | [address] [place] | [address] | (Primary Dx) | | | | [place] [address] | | | | | | [phone] | | | +--------+ + + + [...] + + + | Blood Pressure | 143/64 | 04/03/2019 1:48 PM | | | | | PDT | | + + + + + | Pulse | - | - | | + + + + + | Temperature | 36.3 C (97.3 F) | 04/03/2019 1:48 PM | | | | | PDT | | + + + + + | Respiratory Rate | 14 | 04/03/2019 1:48 PM | | | | | PDT | | + + + + + | Oxygen Saturation | 96% | 04/03/2019 1:48 PM | | | | | PDT | | + + + + + | Inhaled Oxygen | - | - | | | Concentration | | | | + + + + + | Weight | 55.3 kg (121 lb 14.6 | 04/03/2019 1:48 PM | | | | oz) | PDT | | + + + + + | Height | - | - | | + + + + + | Body Mass Index | 20.31 | 01/30/2019 2:26 PM | | | [...] as of this encounter Progress Notes Rajiv Fritz DO - 04/03/2019 1:51 PM PDT Radiation Oncology Weekly On Treatment Note Diagnosis: ICD-10-CM ICD-9-CM 1. Malignant neoplasm of upper lobe of left lung (HCC) C34.12 162.3 Reason for visit: On treatment evaluation Radiation technical factors: Dose Delivered Dose Planned Fractions Delivered 4800 cGy 5000 cGy Images were reviewed this [...] two days after chemotherapy. 40 tablet 0 armcggiwshFMHDF-lgwwvbsqq-kyxqptag & magnesium hydroxide-simethicone (MAGIC MOUTHWASH) Swish and spit 5 mLs every 4 hours as needed for Pain. (RECIPE=1:1 mixture of Maalox, viscou s lido Dropping diphenhydramine due todrowsiness 200 mL 1 iymesnxpobAIBVY-lobewdisk-dirgkuud & magnesium hydroxide-simethicone (MAGIC MOUTHWASH) Take 5 [...] Route Frequency Provider Last Rate Last Dose heparin 100 units/mL flush injection 500 Units 5 mL Intracatheter PRN Boubacar richardson MD HYDROmorphone (DILAUDID) injection 0.4-0.8 mg 0.4-0.8 mg Intravenous Q1H PRN Boubacar Mata MD 0.8 mg at 04/03/19 1128 sodium chloride 0.9% (NS) infusion Intravenous Continuous Boubacar Mata MD Stopped at 04/03/19 1323 Pain assessment: Location: Throat/esophagus area Pain Level: PAIN PROG PAIN LEVEL: 7 Pain Quality: Constant, Sharp, Burning, Aching Current pain regimen: Hydrocodone prn, magic mouthwash, and gabapentin. Wt Readings from Last 3 Encounters: 04/03/19 55.3 kg (121 lb 14.6 oz) 03/31/19 53.7 kg (118 lb 6.2 oz) 03/27/19 54.7 kg (120 lb 9.5 oz) Vitals: 04/03/19 1348 BP: 143/64 Resp: 14 Temp: 36.3 C (97.3 F) TempSrc: Temporal SpO2: 96% Weight: 55.3 kg (121 lb 14.6 oz) Physical Exam Constitutional: She is oriented to person, place, and time. She appears well-developed and well-nourished. Neurological: She is alert and oriented to person, place, and time. Psychiatric: Her behavior is normal. Nurse Assessment and Toxicity Grading: Toxicity Flowsheet 04/03/2019 Nausea 2 - Grade 2 Vomiting 0 - Grade 0 Fatigue 2 - Grade 2 Anorexia 2 - Grade 2 Cough 1 - Grade 1 Dyspnea 2 - Grade 2 Karnofsky Performance Score 70% Physician Assessment: Overall, she is tolerating treatment well with continued esophagitis symptoms. She does ta ke Magic mouthwash 5 minutes before meals with mild relief; however, she is having difficult y with by mouth intake. She was previously given a prescription for Carafate for which she recently obtained the elixir but has not taken it to date. Instructions given regarding thi s administration. Disposition: Continue radiation treatment as planned. Rajiv Fritz DO Radiation Oncologist documented in this enco unter Plan of Treatment +--------+ + + + + | Date | Type | Specialty | Care Team | Description | +--------+ + + + + | 04/20/ | Appointment | Radiation Oncology | CorinneTreva alcantara | | | 2019 | | | DEISY Hernandez [address] | | | | | | [address] [place] | | | | | | [place] [address] | | | | | | [phone] | | | | | | | | +--------+ + + + + documented as of this encounter Visit Diagnoses + + | Diagnosis | + + | Malignant neoplasm of upper lobe of left lung (HCC) - Primary | + + documented in this encounter"
--- OUTSIDE RECORDS SUMMARY | ~2020-03-30 | XMS | Encounter Summary ---
Demographics + + + | Address | [address] | | | [place] [address] | + + + | Home Phone | | + + + | Preferred Language | Unknown | + + + | Marital Status | Single | + + + | Moravian Affiliation | NRP | + + + [...] Team Providers + +------+ + | Care Quality Assurance Technician Name | Role | Phone | + +------+ + | Lauryn Stuart | PCP | | + +------+ + Encounter Details +--------+ + + + + | Date | Type | Department | Care Team | Description | +--------+ + + + + | 10/08/ | Pharmacy | [facility] | | | | 2020 | Visit | [facility] | | | | | | [address] | | | | | | Mailcode: [place] | | | | | | [facility] and | | | | | | Healing, [address] | | | | | | [place], [place] | | | | | | [address] | | | | | | [phone] | | | +--------+ + + + [...] | | | | | | [place] [address] | | | | | | [phone] | | | | | | | | +--------+---------+ + + + | 04/30/ | Office | Otolaryngology | Augustine Nolan | | | 2019 | Visit | | MD Debbie [address] | | | | | | [address] | | | | | | [place] | | | | | | [address] | | | | | | [phone] | | | | | | | | +--------+---------+ + + + documented as of this encounter Visit Diagnoses Not on filedocumented in this encounter
--- OUTSIDE RECORDS SUMMARY | ~2020-03-30 | XMS | Encounter Summary ---
Demographics + + + | Address | [address] | | | [place] [address] | + + + | Home Phone [...] + + + | Author | [facility] | | | and Jakobana | + + + | Organization | [facility] | [...] Team Providers + +------+ + | Care Warehouse Receiving Supervisor Name | Role | Phone | + +------+ + | Lauryn Stuart PA-C | PCP | | + +------+ + Encounter Details +--------+ + + + + | Date | Type | Department | Care Team | Description | +--------+ + + + + | 03/20/ | [facility] | [facility] | Adolfo, | Malignant neoplasm | | 2019 | Encounter | MED CTR ULTRASOUND | Boubacar Daniels MD [address] | of upper lobe of | | | | [address] [place] | [facility] | left lung (HCC) | | | | [place] | [address], [place] | | | | | [address] | [address] | | | | | [phone] | | | +--------+ + + + [...] | | | | | | | ([facility]) | | | | | | + [...] | | | | | | [place] [address] | | | | | | [phone] | | | | | | | | +--------+ + + + + documented as of this encounter Procedures + +--------+ + + + | Procedure Name | Priori | Date/Time | Associated Diagnosis | Comments | | | ty | | | | + +--------+ + + + | US HEAD NECK SOFT | Routin | 03/20/2019 | Malignant neoplasm | Results for this | | TISSUE | e | 3:00 PM | of upper lobe of | [...] | SUPRACLAVICULAR ABNORMALITY. Dictated and Signed by: Lucio Her | | | Electronically signed: 03/20/2019 5:11 PM | | + + + + + | Procedure Note | + + | Cristhian, Rad Results In - 03/20/2019 5:14 PM PDT [...] | | |Dictated and Signed by: Lucio Hre MD | | Electronically signed: 03/20/2019 5:11 [...]
--- OUTSIDE RECORDS SUMMARY | ~2020-03-30 | XMS | Encounter Summary ---
Demographics + + + | Address | [address] | | | [place] [address] | + + + | Home Phone [...] Author + + + | Author | [facility] | + + + | Organization | [facility] | + + + | Address | Unknown | + + + | Phone | Unavailable | + + + Support + + +---------+ + | Name | Relationship | Address | Phone | + + +---------+ + | Laura Allred | ECON | Unknown | | + + +---------+ + Care Team Providers + +------+ + | Care Superintendent Plant Protection Name | Role | Phone | + [...] Description | +--------+---------+ + + + | 10/09/ | Surgery | [facility] | Augustine Nolan | LEFT MEDIALIZATION | | 2019 | | [place] [facility] | MD Debbie [address] [facility] | THYROPLASTY | | | | and Healing Surgery | [address] | | | | | Center Admitting | [place], [place] | | | | | Desk Located on the | [address] | | | | | 4th floor [address] | [phone] | | | | | [place], | | | | | | [place] [address] | | | +--------+---------+ + + + [...] Nolan MD - 10/10/2019 7:48 AM PST [facility] Discharge Summary Discharging Provider: Augustine Nolan MD [...] [facility] Otolaryngolo 10/31/2019 1:30 PM Augustine Nolan Otolaryngology Laryngology Services at [facility] Otolaryngolo docuodc in thi s encounter Discharge Instructions Discharge Instr - AVS First Page Augustine Nolan MD - 10/10/2019 7:47 AM Fredrick Nolan M.D. Decision Support Manager Laryngology and Head & Neck Surgery For after hour emergencies, call [phone] or 608Clectronically signed by Augustine lance MD at 10/10/2019 7:47 AM PST Discharge Instr - Activity Augustine Nolan MD [...] 0 | 03/05/20 | | | oral | once daily. [...] daily | | | | | | lic/nrd083 (HAIR, | with dinner. | | | [...] of this encounter Progress Notes Cassandra Penaloza, ACN - 10/10/2019 1:37 AM PSTFormatting of this note might be different f rom the original. [facility] & [place] [address] OVERNIGHT OUTPATIENT CARE UNIT PROVIDER NOTE: Attending [...] Date Anxiety COPD (chronic obstructive pulmonary disease) ([facility]) Dysphonia 12/04/2018 GERD (gastroesophageal reflux disease) [...] in halls, Gait steady Cassandra Penaloza DNP, CARMELO-BC [facility] Out[facility] Care Unit pager [phone] 10/10/2019 Bartolome Paredes PA-C - 10/09/2019 4:53 PM PSTI saw her in the [facility] with complaints [...] | | | | | [place], | | | | | | [place] [address] | | | | | | [phone] | | | | | | | | +--------+---------+ + + + | 04/30/ | Office | Otolaryngology | Augustine Nolan | | 2019 | Visit | | MD Debbie [address] | | | | | | [address] | | | | | | [place] | | | | | | [address] | | | | | | [phone] | | | | | | | [...] NAME: | | | Sussy Allred MR#: [id number] : 1950 Date: | | | 10/09/2019 Attending Surgeon: | | | Augustine Nolan M.D. Payroll Representative(s): | | | Dunia Couch MD; Rianna [...] block silastic thyroplasty implant. Drains: A 10 Portuguese round | | | drain. Complications: None [...] a 3 mm cutting dwight on the [employer]onestreet Onex | | | drill. Once completed, the inner perichondrium was carefully | | | incised using a Acadia blade. This was excised. Subperichondrial | | [...] muscles were then reapproximated. A small 10 Portuguese channel drain | | | was placed [...] | | | procedure. Augustine Nolan M.D. Decision Support Manager | | | Laryngology and Head & Neck Surgery | | + + + INTRAPROCEDURE IMAGING (10/09/2019 6:03 AM [facility]) + + | Specimen | + [...] left vocal fold | + + | Malignant neoplasm of [...] +------+------+ +-------+ + +---+---+ | Given | 10/09/ | 1,000 mg | | | | [...] | | | | | dose on Sun10/09/19 at 1430, | | AM PST | [...] | +---+---+ + +-------+ +------+---+ + | bupivacaine (PF) | Given | 10/09/19 | 5 mL | | Surgical | | (MARCAINE,SENSORCAINE-MPF) 0.5 % | | 20 7:54 | | | Site | | (5 mg/mL) injection | | AM PST | | | | | INTRAPROCEDURE PRN, Starting Jenniffer | | | | | | | 10/09/19 at 0754, Until Jenniffer | | | | | | | 10/09/19 at 1006 | | | | | | + [...] +---+---+ | | | +---+---+ + +-------+ +------+---+------+ | cocaine 4 % solution | Given | 10/09/19 | 4 mL | | Nose | | INTRAPROCEDURE PRN, Starting Jenniffer | | 20 7:48 | | | | | 10/09/19 at 0748, Until Jenniffer | | AM PST | | | | | 10/09/19 at 1006 | | | | | | + +-------+ +------+---+------+ +---+---+ | | | +---+---+ + +-------+ [...] | | | | First dose on Jenniffer 10/09/19 at | | AM PST | | | | | 2100, Until Discontinued | | | | | | + +-------+ +-------+---+---+ +-------+ +-------+---+---+ | Given | 10/09/19 | 20 mg | | | | | 20 11:25 | | | | | | PM PST | | | | +-------+ +-------+---+---+ +---+---+ | | | +---+---+ + +-------+ +--------+---+ + | lidocaine 1% w/ EPI | Given | 10/09/19 | 0.5 mL | | Surgical | | 1:100K-bupivacaine 0.5% injection | | 20 9:46 | | | Site | | INTRAPROCEDURE PRN, Starting | | AM PST | | | | | Jenniffer 10/09/19 at 0946, Until Jenniffer | | | | | | | 10/09/19 at 1006 | | | | | | + +-------+ +--------+---+ + +---+---+ | | | +---+---+ + +-------+ +------+---+ + | lidocaine-EPINEPHrine | Given | 10/09/19 | 5 mL | | Surgical | | (XYLOCAINE WITH EPINEPHRINE) 1 | | 20 7:54 | | | Site | | %-1:100,000 injection | | AM PST | | | | | INTRAPROCEDURE PRN, Starting Jenniffer | | | | | | | 10/09/19 at 0754, Until Jenniffer | | | | | | | 10/09/19 at 1006 | | | | | | + [...] | | | | | | Until Sun10/09/19 at 1239, | | | | | [...]
--- OUTSIDE RECORDS SUMMARY | ~2020-03-30 | XMS | Encounter Summary ---
Demographics + + + | Address | [address] | | | [place] [address] | + + + | Home Phone | | + + + | Preferred Language | Unknown | + + + | Marital Status | Single | + + + | Hinduism Affiliation | NRP | + + + [...] Team Providers + +------+ + | Care First Assistant Manager Name | Role | Phone | + +------+ + | Lauryn Stuart | PCP | | + +------+ + Encounter Details +--------+ + + + + | Date | Type | Department | Care Team | Description | +--------+ + + + + | 10/10/ | Documentati | Otolaryngology | Augustine Nolan | | | 2020 | on | Laryngology Services | MD [address]bbie [address] | | | | | at [facility] [address] | [address] | | | | | [facility] for | [place], [place] | | | | | Health and Healing, | [address] | | | | | [facility] [address] | [phone] | | | | | [place], [place] | | | | | | [address] | | | | | | [phone] | | | +--------+ + + + [...] | | | | | [place], | | | | | | [place] [address] | | | | | | [phone] | | | | | | | | +--------+---------+ + + + | 04/30/ | Office | Otolaryngology | Augustine Nolan | | | 2020 | Visit | | MD [address]bbie [address] | | | | | | [address] | | | | | | [place] | | | | | | [address] | | | | | | [phone] | | | | | | | | +--------+---------+ + + + documented as of this encounter Visit Diagnoses Not on filedocumented in this encounter
--- OUTSIDE RECORDS SUMMARY | ~2020-03-30 | XMS | Encounter Summary ---
Demographics + + + | Address | [address] | | | [place] [address] | + + + | Home Phone [...] Team Providers + +------+ + | Care Seismograph Operator Name | Role | Phone | [...] | | | | | Physician's | [place], [place] | | | | | [address], 2nd floor | [address] | | | | | [place], [place] | [phone] | | | | | [address] | | | | | | [phone] | | | +--------+ + + + [...] | | | | | [place], | | | | | | [place] [address] | | | | | | [phone] | | | | | | | | +--------+---------+ + + + | 04/30/ | Office | Otolaryngology | Augustine Nolan | | | 2019 | Visit | | MD Debbie [address] [facility] | | | | | | [address] | | | | | | [place] | | | | | | [address] | | | | | | [phone] | | | | | | | | +--------+---------+ + + + documented as of this encounter Visit Diagnoses Not on filedocumented in this encounter
--- OUTSIDE RECORDS SUMMARY | ~2020-03-30 | XMS | Encounter Summary ---
Demographics + + + | Address | [address] | | | [place] [address] | + + + | Home Phone | | + + + | Preferred Language | Unknown | + + + | Marital Status | Single | + + + | Rastafarian Affiliation | NRP | + + + [...] Team Providers + +------+ + | Care Airplane Pilot Chief Name | Role | Phone | [...] | | | | CONSULT TO | [place], [place] | Floor | | | | | SURGERY - | [address] | [place], [place] | | | | | (EGS)EMERGEN | Phone: | [phone] | | | | | CY GENERAL | [phone] | Phone: | | | | | SURGERY | Fax: | [phone] | | | | | | [phone] | Fax: | | | | | | | [phone] | + +--------+ + + + + [...] | lung, | [address] | [address] | | | | unspecified | [address] | [address] | | | | | laterality, | Rd | [place], [place] | | | | | unspecified | [place] | [address] | | | | | part of lung | [address] | Phone: | | | | | (HCC) | Phone: | [phone] | | | | | Procedures | [phone] | Fax: | | | | | CONSULT TO | Fax: | [phone] | | | | | RADIATION | [phone] | | | | | | ONCOLOGY | | | +--------+--------+ + + + + Encounter Details +--------+ + + + + | Date | Type | Department | Care Team | Description | +--------+ + + + + | 12/24/ | [facility]cker | Cardiothoracic | Heladio Francisco, | Malignant neoplasm | | 2019 | | Surgery at [facility] [address] | PA-C [address] | of lung, unspecified | | | | [address] | [address] | laterality, | | | | Physician's | [place], [place] | unspecified part of | | | | Pavilion, 2nd floor | [address] | lung (HCC) (Primary | | | | [place], [place] | [phone] | Dx); Encounter for | | | | [address] | | care related to | | | | [phone] | | feeding tube | +--------+ + [...] | | 2020 | Visit | | [address] | | | | | | [place], | | | | | | [place] [address] | | | | | | [phone] | | | | | | | | +--------+---------+ + + + | 04/30/ | Office | Otolaryngology | Augustine Nolan | | | 2019 | Visit | | MD Debbie [address] [facility] | | | | | | [address] | | | | | | [place], [place] | | | | | | [address] | | | | | | [phone] | | | | | | | [...]
--- OUTSIDE RECORDS SUMMARY | ~2020-03-30 | XMS | Encounter Summary ---
Demographics + + + | Address | [address] | | | [place] [address] | + + + | Home Phone [...] | [facility] | | | and [place]ana | + + + | Organization | [facility] | | | and [...] Team Providers + +------+ + | Care Direct Of Real Estate Name | Role | Phone | + +------+ + | Lauryn Stuart PA-C | PCP | | + +------+ + Reason for Visit + +--------+ + | Reason | Onset | Comments | | | Date | | + +--------+ + | Patient Concerns | 06/13/ | | | | 2018 | | + +--------+ + Encounter Details +--------+ + + + + | Date | Type | Department | Care Team | Description | +--------+ + + + + | 06/13/ | Telephone | [facility] | Adolfo, | Patient Concerns | | 2019 | | [facility] | Boubacar Daniels MD [address] | | | | | [facility] [address] | [address] [facility] | | | | | [address] [place] | [address] [place], [place] | | | | | [place] [address] | [id number] | | | | | [phone] | | | +--------+ + + + [...] this encounter Miscellaneous Notes Telephone Encounter - Vee Anderson RN - 06/13/2019 11:[address] Miguel Ángel osuna who strongly recommends oral rehydration and states she can continue to use ondansetr on as directed. States if things worsen at all or don't get better patient should seek evalu ation through urgent care. Call returned to Katharina who verbalizes understanding. Electronicall y signed by Vee Anderson, RN at 06/13/2019 11:26 AM PDTTelephone Encounter - Vee Anderson RN - 06/13/2019 10:49 AM PDTReturned call to Katharina, she states she has been tony seated and having dry heaves for the last 2 days, unsure of cause as she doesn't have other symptoms. States she has been using the ondansetron which is helpful but only for about 30 m inutes. States she hasn't tried the prochlorperazine because it makes her feel bad and mica rgic. Is able to drink fluids but states she knows she hasn't taken in as much as she should . Asking about getting fluids today. Electronically signed by Vee Anderson RN at 10:51 AM PDTTelephone Encounter - Bassam Molina - 06/13/2019 9:50 AM PDTPt romano d/ phone # [phone] She is not feeling good x 2 days, dry heaves, thinks she may need fluids, is hoping to come in today Asks for call documented in this encounter Plan of Treatment [...] | | | | | [place] [address] | | | | | | [phone] | | | | | | | | +--------+ + + + + documented as of this encounter Visit Diagnoses Not on filedocumented in this encounter"
--- OUTSIDE RECORDS SUMMARY | ~2020-03-30 | XMS | Encounter Summary ---
Demographics + + + | Address | [address] | | | [place] [address] | + + + | Home Phone [...] + | Author | [facility] | + + + | Organization | [facility] | + + + | Address | Unknown | + + + | Phone | Unavailable | + + + Support + + +---------+ + | Name | Relationship | Address | Phone | + + +---------+ + | Laura Allred | ECON | Unknown | | + + +---------+ + Care Team Providers + +------+ + | Care Medical Reviewer Name | Role | Phone | + [...] [address] | | | | | at [facility] [address] | [address] | | | | | [place] for | [place], [place] | | | | | Health and Healing, | [address] | | | | | [facility] 1 | [phone] | | | | | [place], [place] | | | | | | [address] | | | | | | [phone] | | | +--------+ + + + [...] | | 2019 | Visit | | [address] | | | | | | [place], | | | | | | [place] [address] | | | | | | [phone] | | | | | | | | +--------+---------+ + + + | 04/30/ | Office | Otolaryngology | Augustine Nolan | | | 2019 | Visit | | MD Debbie [address] | | | | | | [address] | | | | | | [place] | | | | | | [address] | | | | | | [phone] | | | | | | | | +--------+---------+ + + + documented as of this encounter Visit Diagnoses Not on filedocumented in this encounter
--- OUTSIDE RECORDS SUMMARY | ~2020-03-30 | XMS | Encounter Summary ---
Demographics + + + | Address | [address] | | | [place] [address] | + + + | Home Phone | | + + + | Preferred Language | Unknown | + + + | Marital Status | Single | + + + | Anabaptism Affiliation | NRP | + + + | Race | White | + + + | Ethnic Group | Not or | + + + Author + + + | Author | [facility] | + + + | Organization | [facility] | + + + | Address | Unknown | + + + | Phone | Unavailable | + + + Support + + +---------+ + | Name | Relationship | Address | Phone | + + +---------+ + | Laura Allred | ECON | Unknown | | + + +---------+ + Care Team Providers + +------+ + | Care Solar Electric Practitioner Name | Role | Phone | + [...] 12/07/ | Surgery | 6A Intra Op 3181 | Derrick Handley, | PERCUTANEOUS | | 2019 | | [address] | [address] | ENDOSCOPIC | | | | Rd [facility] | [facility] [address] | GASTROSTOMY | | | | Hospital Admitting | [place], [place] | | | | | Desk Located on the | [address] | | | | | 9th floor | [phone] | | | | | [place], [place] | | | | | | [address] | | | +--------+---------+ + + + [...] and a PEG tube was placed. ENT Spee ch followed the patient during her hospitalization, [...] Discharge Medications: Sussy Allred Home Medication Instructions ABRAHAN:[id number] Printed on:12/13/18 1123 Medication Information acetaminophen 325 mg oral tablet [...] narcotic pain medic ations. Discharge Instructions: SUSSY REEVES CHALINO was advised to contact the Thoracic Surgery [...] at 12/14/18926 Last data filed at 12/14/18 07 Gross per 24 hour Intake 885 ml [...] carcinoma in one of three lymph nodes (/3) H. Lymph node, level 11L, biopsy: ? 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 Lymph node, level 7, biopsy: ? One lymph node negative for metastasis (0/1) J. Lung, AP window, biopsy: ? One lymph node positive for metastatic carcinoma (08/20) K. Lymph node, 11L lower lobe, biopsy: ? Fragments of lymph node with metastatic carcinoma (/) L. Lymph node, level 11L BIFURCATION, biopsy: ? One lymph node with metastatic carcinoma (08/20) ? Tumor is also present in adjacent soft tissue (not due to extracapsular extension) M. Lymph node, 5-6 node, biopsy: ? 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 No extracapsular extension N. Lymph [...] be sent through Care Everywhere.Lung Resection: Post-op ([place])Mediastinoscopy: Pre-op ([place])documented in this encounter Medications at Time of [...] PM PDTLeft chest tube removed. Keena Falcon CCC-WIRE WEAVING LOOM SETTER - 12/13/2018 8:11 AM PDT ENT SPEECH [...] Voice clear, breathing comfortably. No further acute WIRE WEAVING LOOM SETTER needs. PLAN: 1. ADAT back to regular diet. Pills by mouth okay - in liquids or purees as she wishes. -Aspiration precautions - upright with all PO, single small bites/sips, one bite/sip at a time -L head-turn + chin-tuck is fine if patient finds it helpful with liquids 2. TFs have been discontinued 3. ENT WIRE WEAVING LOOM SETTER will sign-off. Patient can follow-up with us as outpatient in clinic with Dr. Jose arce as needed. Keena Myles MS, CCC-WIRE WEAVING LOOM SETTER Speech-Language Pathologist [facility] Dept. of Otolaryngology, [address] [facility] [place] [address] Pager: [phone] Sharifa YBARRA, Terri ramirez - 12/13/2018 7:11 AM PDT Thoracic Surgery [...] ? 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 No extracapsular extension N. Lymph [...] mechanical soft diet. Tube feeds off. Plan (pxkl-ex-euledope issues): - Aspiration pneumonitis: Resolved - Hypophosphatemia: [...] Stacy Quevedo MD Cardiothoracic Surgery Fellow Pager: [phone] Keena Falcon CCC- WIRE WEAVING LOOM SETTER - 12/12/2018 12:22 PM PDT ENT SPEECH [...] may not be indicated until 6 weeks post-[facility] ent. DIETARY STATUS: Purees and [...] resident on- call. Recommend diet upgrade to [facility] soft and any liquids for more palatable [...] of TFs to promote appetite 3. ENT WIRE WEAVING LOOM SETTER will continue to follow. Please page [phone] as needed. Keena Myles MS, CCC-WIRE WEAVING LOOM SETTER Speech-Language Pathologist [facility] Dept. of Otolaryngology, [address] [place] [address] Pager: [phone] Sharifa YBARRA, Terri ramirez - 12/12/2018 7:53 AM PDT Thoracic Surgery Brief Inpatient Progress Note Patient name: SUSSY REEVES ALLRED Attending: Manoj Kumar MD Procedure day: [...] a PEG tube for nutri tion. Plan (rqud-bs-ekkvgplg issues): - Aspiration pneumonitis: Productive sputum, augmentin [...] Stacy Quevedo MD Cardiothoracic Surgery Fellow Pager: [phone] oKeena lopez, [facility]- WIRE WEAVING LOOM SETTER - 12/11/2018 2:44 PM PDT ENT SPEECH [...] verified. The patient was evaluated in the [facility] 10th floor Radiology suite & was observed [...] re: decrease or discontinue TFs 3. ENT WIRE WEAVING LOOM SETTER will follow-up on morning. [place] [phone] as needed. Keena Myles MS, CCC-WIRE WEAVING LOOM SETTER Speech-Language Pathologist [facility] Dept. of Otolaryngology, [address] [facility] [place] [address] Pager: [phone] Taye Falcon CCC-WIRE WEAVING LOOM SETTER - 12/11/2018 10:26 AM PDT ENT SPEECH [...] to improve and tolerate PO. 4. ENT WIRE WEAVING LOOM SETTER [place] [phone] [place] [phone] any time with questions or concer ns. Keena Myles MS, CCC-WIRE WEAVING LOOM SETTER Speech-Language Pathologist [facility] Dept. of Otolaryngology, [address] [facility] [address] [place] [address] Pager: [phone] Sharifa YBARRA, Terri ramirez - 12/11/2018 8:24 [...] PEG tube and stric t NPO. Plan (kthr-ln-dfolyghj issues): - Aspiration pneumonitis: Productive sputum, augmentin [...] Stacy Quevedo MD Cardiothoracic Surgery Fellow Pager: [phone] Meggan Howe SLP - 4:21 PM PDTINPATIENT ENT SPEECH PROGRESS NOTE: Order received, chart reviewed. Patient with history of "large volume aspiration", even un clear. Recommend objective swallow evaluation in Radiology Sunday, 12/11 prior to initiat ion of p.o. Intake. Recommend: NPO, all nutrition/hydration/medication via PEG Plan: MBS Sunday. Meggan Downs, Ph.D., [facility]-WIRE WEAVING LOOM SETTER Hoop Cutter Director, [facility] Otolaryngology, Head and Neck Surgery [facility] [phone] Augustine Roa MD - 12/10/2018 9:51 AM PDT PATIENT NAME: Sussy Allred [facility] MR#: [id number] : 1950 PRIMARY CARE PROVIDER: MALLIKA [place] [...] Intake/Output Summary (Last 24 hours) at 12/10/18 0997 Last data filed at 12/10/18 0556 Gross per 24 hour Intake 2132 ml [...] Dr. Jose da silva. Augustine Nolan M.D. Hoop Cutter Laryngology and Head & Neck SurgeryElectronically signed [...] PEG tube and stric t NPO. Plan (gamw-oe-gwnhzrrh issues): - Aspiration pneumonitis: Productive sputum, augmentin [...] Stacy Quevedo MD Cardiothoracic Surgery Fellow Pager: [phone] Kiya Stovall MD,PhD - 12/09/2018 2:43 PM [...] removal. APS will sign off, please page [phone] if there are questions or concerns. APS happy to repla ce epidural in future if primary team and patient think it is needed. Kiya Santos MD Pager [phone] Department of Anesthesiology and Perioperative Medicine Chronic [...] PEG tube and stric t NPO. Plan (crcj-ts-diecmjxi issues): - Aspiration pneumonitis: strict NPO, aggressive [...] Stacy Quevedo MD Cardiothoracic Surgery Fellow Pager: [phone] ee Dickerson, ACNP - 12/09/2018 9:44 AM PDT Cardiovascular Intensive Care Unit Team Progress Note CVICU D2 Assigned #[id number] ICU Admission Reason Most Recent Value ICU [...] left vocal cord dysmotility as evidenced on SEMICONDUCTOR PACKAGES SEALER scope per ENT. 24 Hour events - [...] dysphagia. - Strict NPO, consider re consulting WIRE WEAVING LOOM SETTER today pending course and ENT recs - [...] 12/07 - Strict NPO - ENT performed SEMICONDUCTOR PACKAGES SEALER scope with evidence of left vocal cord [...] Manoj Kumar MD Admitting Provider Cardiothoracic Surgery 65611 Quality section FAST HUG Feeding: Tube Feeds [...] the recent imaging availabl e. CARMELO Riggins [facility] DEPARTMENT: [facility] ICU CARDIAC Place of Service:- Inpatient CSN: [id number] Suggested Modifier: None Suggested CPT: TO FIRE CAPTAIN MARINE Author:CARMELO Riggins [address] [address]Ecvvgxzzdwsfys signed by CARMELO Riggins at 12/09/2018 11:2 [...] Hamm MD Anesthesiology PGY1 APS Team Pager [phone] Associated attestation - Kiya Cedillo MD,PhD - 12/09/2018 4:57 PM PDTI saw and evaluated patient Ms. Sussy Allred with Resident: Dr. Hamm. I reviewed all details o f Ms. Sussy Allred s epidural block management. I have reviewed the resident s note and I agree with the plan of care as documented. I do not have additional comments. Kiya Santos MD,PhDCleveland Clinic Fairview HospitalDennis [place]- - 12/08/2018 6:40 PM PDTFormatting of this no te might be different from the original. Cardiovascular Intensive Care Unit Clinical Update Note Team: D2 Team Pager: [phone] Attending: Cece Pt Name: Sussy Allred ID: [...] left vocal cord dysmotility as evidenced on SEMICONDUCTOR PACKAGES SEALER scope per ENT. Given her likely long-term [...] Unit Team Progress Note CVICU D2 Assigned #[id number] ICU Admission Reason Most Recent Value ICU Admission reason post-op management filed at 12/04/2018 1538 Documentation Date Row Name 12/04/18 1534 Day [...] left vocal cord dysmotility as evidenced on SEMICONDUCTOR PACKAGES SEALER scope per ENT. Given her likely long-term [...] 12/07 - Strict NPO - ENT performed SEMICONDUCTOR PACKAGES SEALER scope with evidence of left vocal cord [...] Manoj Kumar MD Admitting Provider Cardiothoracic Surgery 66441 Jama Zhao MD ICU PM Attending Anesthesiology 72657 Quality section FAST HUG Feeding: Tube Feeds: [...] e. Date of Service: 12/08/2018 MALLIKA STONER [facility] DEPARTMENT: ANE ICU CARDIAC Place of Service:- Inpatient CSN: [id number] Suggested Modifier: None Suggested CPT: TO FIRE CAPTAIN MARINE Author:MALLIKA STONER [address] [id number] signed by MALLIKA Stoner at 12/08/2018 5:33 PM P Dennis Sutton MD - 12/08/2018 10:12 AM PDT Cardiovascular Intensive Care Unit Attending Progress Note CVICU D2 Assigned #[id number] ICU Admission Reason Most Recent Value ICU [...] left vocal cord dysmotility as evidenced on SEMICONDUCTOR PACKAGES SEALER scope per ENT. Given her likely long-term [...] Manoj Kumar MD Admitting Provider Cardiothoracic Surgery 58952 Jama Zhao MD ICU PM Attending Anesthesiology 76319 Code Status Code Status Full Code Quality section I have spent a total of 38 minutes in the direct care and management of this patient indepe ndent of any time spent teaching or performing any separately billable procedures. I reviewe d the documented findings, all data and the recent imaging available. Seen with PA/SEMICONDUCTOR PACKAGES SEALER myah . Please see their note for details. I reviewed the documented findings, all data and the re cent imaging available. Dennis Myrick MD Author:Dennis Myrick MD [address] [id number] signed by Dennis Myrick MD at 12/08/2018 10:13 AM Ozile Bass MD - 12/08/2018 8:43 AM PDT [...] the plan of care as documented. Louie oMura MD Adult Acute Pain Service [facility] Pager#: [phone] Email: [email or web address] Alcocer MD - 12/08/2018 8:25 AM PDT [...] was able to be extubated post-procedure ye , which is reassuring. Plan (xuuh-ma-xqdwaqmu issues): - Aspiration pneumonitis: strict NPO, aggressive [...] - Discuss with MD Coreen Farley MD [facility] General Surgery Pager #[phone] Eloina, Dariana dudley PA-C - 12/08/2018 5:02 AM PDTFormatting of this note might be different from the or iginal. Cardiovascular Intensive Care Unit Clinical Update Note Team: D2 Team Pager: [phone] Attending: Cece Pt Name: Sussy Allred ID: [...] left vocal cord dysmotility as evidenced on SEMICONDUCTOR PACKAGES SEALER scope per ENT. Given her likely long-term [...] 1.7 m Intake/Output 12/06 07 - 12/07 0712/07 07 - 12/08 07 I.V. 1517.7 723.6 Other 400 IV Piggyback [...] General Surgery, PGY-3 EGS consult resident pager: [phone] Jama Ramsey MD - 12/07/2018 7:30 PM PDT Cardiovascular Intensive Care Unit Attending Progress Note CVICU D2 Assigned #[id number] ICU Admission Reason Most Recent Value ICU [...] left vocal cord dysmotility as evidenced on SEMICONDUCTOR PACKAGES SEALER scope per ENT. Given her likely long-term [...] Manoj Kumar MD Admitting Provider Cardiothoracic Surgery 12455 Jama Zhao MD ICU PM Attending Anesthesiology 69871 Code Status Code Status Full Code This [...] and the recent imaging available. Seen with PA/SEMICONDUCTOR PACKAGES SEALER Chalino. Please see their note for details. I reviewed the documented findings, all data and the rec ent imaging available. Date of Service: 12/07/2018 [facility] DEPARTMENT: ANE ICU CARDIAC Place of Service:- Inpatient CSN: [id number] Suggested Modifier: None Suggested CPT: TO FIRE CAPTAIN MARINE Author:Jama Zhao MD [address] [address]Wehknurzioevyx signed by Jama Zhao MD at 12/07/2018 [...] Unit Team Progress Note CVICU D2 Assigned #[id number] ICU Admission Reason Most Recent Value ICU [...] left vocal cord dysmotility as evidenced on SEMICONDUCTOR PACKAGES SEALER scope per ENT. Given her likely long-term need fo r tube feeding given her dysphagia, EGS consulted and plans for PEG. Patient's ICU course co mplicated by hypertension (required phenylephrine now weaned off) and high volume aspiration event with hypoxia requiring HFNC 20L. Remains hemodynamically stable. 24 Hour events - Strict NPO with concern for high volume aspiration, WIRE WEAVING LOOM SETTER signed off for now - Overnight worsening [...] event - Strict NPO - ENT performed SEMICONDUCTOR PACKAGES SEALER scope with evidence of left vocal cord [...] Manoj Kumar MD Admitting Provider Cardiothoracic Surgery 39509 Jama Zhao MD ICU PM Attending Anesthesiology 16763 Quality section FAST HUG Feeding: NPO Analgesia: Epidural (HM-bupiv), rectal tylenol, lido patches Sedation: None Thromboprophylaxis: Lovenox Head of Bed: Head of Bed >30 degrees Ulcer Prophylaxis: Famotidine Glycemic Control: insulin sliding Created by Sonya Barron MD Author:Sonya Barron MD [address] [address] [place] [address]Lvrgzjekikuxrc signed by [place] Myrick MD at 12/07/2018 1:48 PM Dennis Good MD - 12/07/2018 10:19 AM PDTFormatting of this note might be differen t from the original. Cardiovascular Intensive Care Unit Attending Progress Note CVICU D2 Assigned #[id number] ICU Admission Reason Most Recent Value ICU [...] Manoj Kumar MD Admitting Provider Cardiothoracic Surgery 55353 Jama Zhao MD ICU PM Attending Anesthesiology 75538 Code Status Code Status Full Code I [...] ICU CARDIAC Place of Service:- Inpatient CSN: [id number] Suggested Modifier: GC - Resident Involved Suggested CPT: TO FIRE CAPTAIN MARINE [place] Myrick MD Author:Dennis Myrick MD [address] [id number] signed by [place] Myrick MD at 12/07/2018 10:19 AM Concha Gonzales MD - 12/07/2018 9:49 AM PDTFormatting of this note might be differe nt from the original. Thoracic Surgery Brief Inpatient Progress Note Patient name: SUSSY LEANDRO ALLRED Attending: Manoj Kumar MD Procedure day: 3 Procedure: Left thoracotomy, CODY lobectomy with bronchial and PA reconstruction 24 hour events: - made strict NPO yesterday with concern for aspiration, WIRE WEAVING LOOM SETTER signed off for now - overnight worsening [...] he risk of prolonged intubation post-anesthesia. Plan (pgta-of-sgdlfhwb issues): - Aspiration pneumonitis: strict NPO, aggressive [...] and discussed with Dr. Chaya Kim MD [facility] General Surgery Pager #[phone] Gayle Mayfield - 12/07/2018 9:21 AM PDTTransthoracic echocardiogram completed. Final report to suzy montague. Dennis Duvall PA-C - 12/07/2018 5:34 AM PDT Cardiovascular Intensive Care Unit Clinical Update Note Team: D2 Team Pager: [phone] Attending: Cece Garsia Name: Sussy Allred ID: [...] General Surgery, PGY-3 EGS consult resident pager: [phone] Associated attestation - Derrick Handley MD - 12/08/2018 10:17 AM PDTATTENDING ADDENDUM I saw and examined Sussy Allred with the residents on 12/07 and agree with the assessmen t and plan as outlined in this note and participated in the planning of care. Derrick Handley MD FACS venetian blind installer Division of Trauma, Critical Care, and Acute Care Surgery [phone] Dennis Myrick MD - 12/06/2018 11:01 AM PDTFormatting of this note might be different f rom the original. Cardiovascular Intensive Care Unit Attending Progress Note CVICU D2 Assigned #[id number] ICU Admission Reason Most Recent Value ICU Admission reason post-op management filed at 12/04/2018 1539 Documentation Date Row Name 12/04/18 1538 Day of Procedure 12/04/18 Thoracic Thoracic Thoracic [...] is comfortable - pt will need likely half-way enteral access. Has requested surgical feeding tube [...] Manoj Kumar MD Admitting Provider Cardiothoracic Surgery 7[address] [employer] necessity reviewed: Plan to DC today I [...] ICU CARDIAC Place of Service:- Inpatient CSN: [id number] Suggested Modifier: GC - Resident Involved Suggested CPT: TO FIRE CAPTAIN MARINE [place] Myrick MD Author:Dennis Myrick MD [address] [id number] signed by Dennis Myrick MD at 12/06/2018 [...] Stacy Quevedo MD Cardiothoracic Surgery Fellow Pager: [phone] Sonya Li MD - 11/18 7:50 AM PDT Cardiovascular Intensive Care Unit Team Progress Note CVICU D2 Assigned #[id number] ICU Admission Reason Most Recent Value ICU [...] DHT vs eventual Gtube - ENT performed SEMICONDUCTOR PACKAGES SEALER scope with evidence of left vocal cord [...] Manoj Kumar MD Admitting Provider Cardiothoracic Surgery 99635 Quality section A-Line necessity reviewed: Plan to DC today Doty necessity reviewed: Plan to DC today FAST HUG Feeding: NPO Analgesia: epidural, Tylenol, lidocaine patches Sedation: None Thromboprophylaxis: Lovenox Head of Bed: Head of Bed >30 degrees Ulcer Prophylaxis: Famotidine Glycemic Control: insulin sliding Created by Sonya Barron MD Author:Sonya Barron MD [address] [address] [place] [address]Kwgkvthcxheixj signed by [place] Myrick MD at 12/06/2018 [...] revealed minimally mobile LEFT true vocal cord. WIRE WEAVING LOOM SETTER evaluation with concern for ri sk of [...] Flores MD Anesthesiology/CCM Fellow APS Team Pager [phone] Associated attestation - Louie Moura MD - 12/07/2018 2:59 PM PDTI saw and evaluated mallika Allred with trainee: Dr. Flores . I have reviewed the trainee's note and I agree with the plan of care as documented. Louie Moura MD Adult Acute Pain Service [facility] Pager#: [phone] Email: [email or web address] PA-C - 12/05/2018 9:06 PM PDTFormatting of this note mi ght be different from the original. Cardiovascular Intensive Care Unit Clinical Update Note Team: D2 Team Pager: [phone] Attending: Layla Pt Name: Sussy Allred ID: Abbreviated HPI Update: 1. Hypotension a. Impoved 12/05/2018 after 2L crystalloid b. UO improved with IVF 2. Recurret Laryngeal nerve a. ENT Eval complete b. Pending re eval by WIRE WEAVING LOOM SETTER for swallow this sim S: Pain, drowsy [...] Unit Team Progress Note CVICU D2 Assigned #[id number] ICU Admission Reason Most Recent Value ICU [...] levothyroxine 50mcg PO DAILY after clear by WIRE WEAVING LOOM SETTER Cardiovascular HTN (hypertension) Unknown Current Assessment & [...] - restart PO PPI when clear by WIRE WEAVING LOOM SETTER At risk for Dysphagia Unknown Current Assessment [...] Manoj Kumar MD Admitting Provider Cardiothoracic Surgery 33008 Quality section A-Line necessity reviewed: Xvfi-rl-yvuf blood pressure monitoring Doty necessity reviewed: Hourly/Accurate measurement of urinary output for clinical manage ment of critically ill patients FAST HUG Feeding: NPO Analgesia: Tylenol, epidural (bupiv-fent) Sedation: None Thromboprophylaxis: SCDs Head of Bed: Head of Bed >30 degrees Ulcer Prophylaxis: Famotidine Glycemic Control: insulin sliding Created by Sonya Barron MD Author:Sonya Barron MD [address] [address] [place] [address]Elrmbesjpgzkzj signed by [place] Myrick MD at 12/06/2018 7:16 AM Ava Abraham, CF-WIRE WEAVING LOOM SETTER - 12/05/2018 10:00 AM PDTEJ SPEECH PATHOLOGY-INPATIENT [...] HISTORY: she is single and lives in [place], [place] DIETARY STATUS: Current diet: The patient [...] afternoon when less lethargic/sedate. Ava Allred M.S., CF-WIRE WEAVING LOOM SETTER Speech-Language Pathology Fellow [facility] [phone] Pager: [phone] Dennis Good MD - 12/05/2018 8:57 AM PDT Cardiovascular Intensive Care Unit Attending Progress Note CVICU D2 Assigned #[id number] ICU Admission Reason Most Recent Value ICU [...] Manoj Kumar MD Admitting Provider Cardiothoracic Surgery 36730 Code Status Code Status Full Code Quality section A-Line necessity reviewed: Jzjb-un-elfi blood pressure monitoring Doty necessity reviewed: Acute [...] ICU CARDIAC Place of Service:- Inpatient CSN: [id number] Suggested Modifier: GC - Resident Involved Suggested CPT: TO FIRE CAPTAIN MARINE Dennis Myrick MD Author:Dennis Myrick MD [address] [id number] signed by Dennis Myrick MD at 12/05/2018 [...] mg 1,000 mg intravenous Q6H Stopped (12/05/18 000) beclomethasone (QVAR) 40 mcg/actuation inhaler 1 puff [...] Flores MD Anesthesiology/CCM Fellow APS Team Pager [phone] Associated attestation - Kiya Cedillo MD,PhD - [...] Stacy Quevedo MD Cardiothoracic Surgery Fellow Pager: [phone] ennis Allred PA-Frances - 3:00 AM PDT Cardiovascular Intensive Care Unit Clinical Update Note Team: D2 Team Pager: [phone] Attending: Layla Pt Name: Sussy Allred ID: [...] - restart PO PPI when clear by WIRE WEAVING LOOM SETTER Hypothyroidism 12/04/2018 Assessment & Plan Note: - restart home levothyroxine 50mcg PO DAILY after clear by WIRE WEAVING LOOM SETTER Acute post-operative pain 12/04/2018 Assessment & Plan [...] LEVEL/LATERALITY: bilateral ATTENDING PHYSICIAN: Hellen Herman MD ASSAYER: Jamey Flores MD, Manda Hamm MD ANESTHESIA: [...] 75 mL/hr intravenous CONTINUOUS 75 mL/hr (12/04/18 9101) Anticoagulants: Yes - Heparin 9mL intraop, last [...] procedure. MD Jamey Boss M.D. Assisted our legal summer intern. I saw and evaluated patient Ms. [...] 2019 | Visit | | [address] | | | | | | [place] [facility], | | | | | | [place] [address] | | | | | | [phone] | | | | | | | | +--------+---------+ + + + | 04/30/ | Office | Otolaryngology | Augustine Nolan | | | 2019 | Visit | | MD Debbie [address] [facility] | | | | | | [address] | | | | | | [place], [place] | | | | | | [address] | | | | | | [phone] | | | | | | | [...] +--------+ + + + | TO FIRE CAPTAIN MARINE | Routin | 12/05/2018 | | Results [...] [facility] | [address] | [place], [place] | | | MARISSA JULIAN OF [facility] | [address] | [address] | | | TESTS | | | [...] [facility] | [address] | [place], [place] | | | [facility] POINT OF CARE | [address] | [address] | | | TESTS | | | | + + + + + X-RAY PORTABLE CHEST 1 VIEW (12/13/2018 8:24 AM PDT) + + | Specimen | + + | | + + + + + | Narrative | Performed At | + + + | EXAM: [place] CHEST 1 VIEW HISTORY: eval interval change. [...] Preliminary: Frieda Brumfield MD Dictation initiated: Frieda | | | MD Brissa 12/13/2018 9:42 AM | | + + + + + | Procedure Note | + + | 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, Radiant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 - 12/13/2018 9:47 AM PDT EXAM: [place] CHEST 1 | | VIEW HISTORY: eval [...] [facility] | [address] | [place], [place] | | | MARISSA JULIAN OF CARE | [address] | [address] | | | TESTS | | | [...] [facility] | [address] | [place], [place] | | | [facility] SPECIAL SURGERY | [address] | [address] | | | TESTS | | | [...] | MD Sae Cardiothoracic Surgery Fellow Pager: [phone] | | + + + CAPILLARY BLOOD [...] CINTRON | [address] | [place], [place] | | | IESHA POINT OF CARE | [address] | [address] | | | TESTS | | | [...] MARQUAM | [address] | [place], [place] | | | MARISSA JULIAN OF CHE | [address] | [address] | | | TESTS | | | [...] + + + | SUZE CINTRON | [address] | [place], [place] | | | MARISSA JULIAN OF [facility] | [address] | [address] | | | TESTS | | | [...] CINTRON | [address] | [place], [place] | | | MARISSA JULIAN OF CARE | [address] | [address] | | | TESTS | | | [...] MARQUAM | [address] | [place], [place] | | | MARISSA JULIAN OF CARE | [address] | [address] | | | TESTS | | | [...] + + + + | SUZE - SAIDA | [address] [facility] [address] | [place], [place] | | | IESHA [place] OF [facility] | [address] | [address] | | | TESTS | | | [...] Preliminary: Keith Jung MD Dictation initiated: Keith uGtierres | | MD Erich 12/11/2018 11:37 AM [...] | + + + + + | [facility] | [address] [facility] | [place] [address] | | | SERVICES, CORE | PARK [...] [place] [facility] | [address] | [place] [address] | | | SERVICES, CORE | PARK [...] | | | LABORATORY | | | DUTCH | | | SERVICES, | | | [...] the MDRD equation recommended by the | M[facility]U | | National Kidney Disease Education Program. Estimated GFR | LABORATORY | | Interpretive Information: <60 mL/min/1.73 sq m | KOKI STUART | | Chronic Kidney Disease <15 mL/min/1.73 [...] | + + + + + | [facility] | [address] | [place] [address] | | | KOKI STUART | [address] [...] SAIDA | [address] | [place], [place] | | | IESHA POINT OF CARE | [address] | [address] | | | TESTS | | | [...] (H) | 60 - 99 mg/dL | [place] - | | | GLUCOSE, | | [...] CINTRON | [address] | [place], [place] | | | MARISSA JULIAN OF CHE | [address] | [address] | | | TESTS | | | [...] MARQUAM | [address] | [place], [place] | | | MARISSA JULIAN OF CARE | [address] | [address] | | | TESTS | | | [...] | + + + + + | [facility] | [address] | [place] [address] | | | SERVICES, CORE | EULALIO [...] [facility] | [address] | [place] [address] | | | SERVICES, CORE | PARK [...] | | | LABORATORY | | | DUTCH | | | SERVICES, | | | [...] | + + + + + | [facility] The [employer] | [address] | [place] [address] | | | KOKI STUART | EULALIO [...] | + + + + + | [facility] | [address] | [place] [address] | | | SERVICES, CORE | EULALIO [...] | | | LABORATORY | | | DUTCH | | | SERVICES, | | | [...] | + + + + + | [facility] [employer] | [address] | [place] [address] | | | SERVICES, CORE | PARK [...] | + + + + + | [facility] | [address] | [place] [address] | | | SERVICES, CORE | PARK [...] + | [facility] | [address] | [place] [address] | | | SERVICES, CORE | PARK [...] | + + + + + | [facility] | [address] | [place] [address] | | | SERVICES, CORE | [address] | | | + + + + + X-RAY PORTABLE CHEST 1 VIEW (12/09/2018 5:41 AM PDT) + + | Specimen | + + | | + + + + + | Narrative | Performed At | + + + | EXAM: [place] CHEST 1 VIEW HISTORY: Shortness of breath. [...] 12/09/2018 7:44 AM Preliminary: Parmjit Gutierres | | MD Shawn Dictation initiated: Parmjit Escobar MD | | | 12/09/2018 7:42 AM | | + + + + + | Procedure Note | + + | 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, Radiant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 - 12/09/2018 7:45 AM PDT EXAM: [place] CHEST 1 | | VIEW HISTORY: Shortness [...] + | [facility] | [address] | [place] [address] | | | SERVICES, CORE | PARK [...] | | | LABORATORY | | | DUTCH | | | SERVICES, | | | [...] the MDRD equation recommended by the | M[facility]U | | National Kidney Disease Education Program. [...] | + + + + + | [facility] | [address] | [place] [address] | | | SERVICES, CORE | EULALIO [...] (H) | 60 - 99 mg/dL | [facility] - | | | GLUCOSE, | | [...] CINTRON | [address] | [place], [place] | | | MARISSA JULIAN OF CARE | [address] | [address] | | | TESTS | | | | + + + + + MAGNESIUM, PLASMA (12/08/2018 12:56 PM PDT) + +-------+ + + + | Component | Value | Ref Range | Performed | Pathologist | | | | | At | Signature | + +-------+ + + + | MAGNESIUM,P | 2.2 | 1.6 - 2.6 mg/dL | SUZE [...] [facility] | [address] | [place] [address] | | | SADE, KOKI | [address] [...] | | | LABORATORY | | | DUTCH | | | SERVICES, | | | [...] | + + + + + | [facility] | [address] | [place] [address] | | | SERVICES, CORE | EULALIO [...] | | | LABORATORY | | | DUTCH | | | SERVICES, | | | [...] | + + + + + | [facility] | [address] | [place] [address] | | | SERVICES, CORE | [address] | | | + + + + + X-RAY PORTABLE CHEST 1 VIEW (12/08/2018 4:58 AM PDT) + + | Specimen | + + | | + + + + + | Narrative | Performed At | + + + | EXAM: [place] CHEST 1 VIEW HISTORY: SoB COMPARISON: Chest [...] MD Dictation initiated: Charli Harris | | | 12/08/2018 10:55 AM | | + + + + + | Procedure Note | + + | 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, Radiant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 - 12/08/2018 10:59 AM PDT EXAM: [place] CHEST 1 | | VIEW HISTORY: SoB [...] [facility] | [address] | [place] [address] | | | SERVICES, CORE | PARK [...] | | | LABORATORY | | | DUTCH | | | SERVICES, | | | [...] | + + + + + | [facility] | [address] [facility] | [place] [address] | | | SADE, KOKI | PARK [...] | + + + + + | [facility] | [address] | [place] [address] | | | SERVICES, CORE | [address] [...] operation. | | | Dereck Rodriguez MD [facility] 12K [address] [facility] [address] [facility] | | | [place] [address] | | + + + PROCEDURE NOTE [...] | | | attempt. Midline lot number [id number]; there was excellent blood | | | [...] Performed At | + ----+ + | [facility] | [facility] DEPT OF | | [facility] Adult Echocardiography Laboratory [address] | CARDIOLOGY | | [place], [place] [address] Ph: | | | Pt Name: SUSSY ALLRED | | | Study Date/Time 12/07/2018 / 8:45:36 AMMRN: [id number] | | | Most recent prior: 11/26/2018Acc #: [id number] | | | No. previous echos: 1DOB: 1950 68 years Heart | | | Rate: 88 bpmHeight: 64.0 in Blood | | | Pressure: 104/64 mm/HgWeight: 145.0 lb | | | Gender: FBSA: 1.71 m | | | Order ID: [id number] Study | | | Location: 12KSonographer: Gayle Michael RCSSonographer 2:Referring | | | Provider: Dennis Patel Performed: 2D, Color flow, Spectral | | [...] Report | | | electronically signed by: [id number] Kathleen Sam MD (12/07/2018, | | | [...] | | | |Report electronically signed by: [id number] Kathleen Sam MD (12/07/2018, 4:42:18 PM) | | | | | | | | | | | | Final | | + ----+ + + + | Procedure Note | + + | Interface, Cardiology Results - 12/07/2018 4:42 PM [facility] | | [facility] Echocardiography Laboratory [address] [place] [address] | | [place], [place] [address] Pt Name: SUSSY REEVES | | CHALINO Study Date/Time 12/07/2018 / 8:45:36 AMMRN: [id number] [facility] | | recent prior: 11/26/2018Acc #: [id number] No. previous echos: 1DOB: | | 1950 68 years Heart Rate: 88 bpmHeight: 64.0 in Blood | | Pressure: 104/64 mm/HgWeight: 145.0 lb Gender: FBSA: | | 1.71 m | | Order ID: [id number] Study [facility] [place] | | [facility] Center[facility] 2:Referring Provider: Dennis AllredModalities Performed: 2D, | [...] and indexed values Report electronically signed by: [id number] | | Kathleen Sam MD (12/07/2018, 4:42:18 [...] | | | |Report electronically signed by: [id number] Kathleen Sam MD (12/07/2018, 4:42:18 PM) | | | | | | | | Final | + + + + + + + | Performing | Address | City/State/Zipcode | Phone Number | | Organization | | | | + + + + + | [facility] DEPT OF | [address] | [place], [place] | | | CARDIOLOGY | [address] | [address] | | + + + + + X-RAY PORTABLE CHEST 1 VIEW (12/07/2018 5:56 AM PDT) + + | Specimen | + + | | + + + + + | Narrative | Performed At | + + + | EXAM: [place] CHEST 1 VIEW HISTORY: SoB COMPARISON: Chest [...] Interface - 12/07/2018 12:19 PM PDT EXAM: [place] CHEST 1 | | VIEW HISTORY: SoB [...] | + + + + + | [facility] | [address] | [place] [address] | | | SERVICES, CORE | [address] [...] + + | [facility] | [address] [facility] | [place] [address] | | | SERVICES, CORE | PARK [...] | | | LABORATORY | | | DUTCH | | | SERVICES, | | | [...] the MDRD equation recommended by the | [facility] | | National Kidney Disease Education Program. [...] [facility] | [address] | [place] [address] | | | SERVICES, CORE | PARK [...] [facility] | [address] | [place] [address] | | | SERVICES, CORE | PARK [...] [facility] | [address] | [place] [address] | | | SERVICES, CORE | PARK [...] | | | LABORATORY | | | DUTCH | | | SERVICES, | | | [...] | + + + + + | [facility] | [address] [facility] | [place] [address] | | | SERVICES, [facility] | [address] | | | + + + + + X-RAY PORTABLE CHEST 1 VIEW (12/06/2018 6:10 AM PDT) + + | Specimen | + + | | + + + + + | Narrative | Performed At | + + + | EXAM: [place] CHEST 1 VIEW HISTORY: SoB COMPARISON: Yesterday [...] Interface - 12/06/2018 8:38 AM PDT EXAM: NJ CHEST 1 | | VIEW HISTORY: SoB [...] | + + + + + | [facility] | [address] | [place] [address] | | | SERVICES, CORE | [address] [...] archived to | | | institution server programmer | | + + + X-RAY PORTABLE CHEST 1 VIEW (12/05/2018 5:59 AM PDT) + + | Specimen | + + | | + + + + + | Narrative | Performed At | + + + | EXAM: [place] CHEST 1 VIEW HISTORY: post left thoracotomy, [...] Interface - 12/05/2018 9:53 AM PDT EXAM: NJ CHEST 1 | | VIEW HISTORY: post [...] Radial Catheter size: 3 | | | kinyarwanda x 5 cm Number of attempts: 3 [...] | + + + + + | [facility] | [address] | [place] [address] | | | SERVICES, CORE | [address] [...] [facility] | [address] | [place] [address] | | | KOKI STUART | [address] [...] | | | LABORATORY | | | DUTCH | | | SERVICES, | | | [...] + | [facility] SHANNON | [address] | [place] [address] | | | SERVICES, CORE | [address] | | | + + + + + X-RAY PORTABLE CHEST 1 VIEW (12/04/2018 6:32 PM PDT) + + | Specimen | + + | | + + + + + | Narrative | Performed At | + + + | EXAM: [place] CHEST 1 VIEW HISTORY: Status post left [...] Note | + + | 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, RadiMapMyID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 - 12/05/2018 9:54 AM PDT EXAM: [place] CHEST 1 | | VIEW HISTORY: Status [...] Range: (75 - 120) sec Heparin | KOKI STUART | | levels of 0.35 - 0.7 U/mL | | + + + + + + + + | Performing | Address | City/State/Zipcode | Phone Number | | Organization | | | | + + + + + | [facility] | [address] | [place] [address] | | | KOKI STUART | [address] [...] | + + + + + | [facility] | [address] | [place] [address] | | | SERVICES, CORE | [address] [...] | | | LABORATORY | | | DUTCH | | | SERVICES, | | | [...] | + + + + + | [facility] | [address] | [place] [address] | | | SERVICES, CORE | [address] [...] SAIDA | [address] | [place], [place] | | | MARISSA JULIAN OF CHE | [facility] | [address] | | | TESTS | | | | + + + + + OPERATION RECORD (12/04/2018 4:05 PM PDT) + + | Procedure Note | + + | Manoj Kumar MD - 12/04/2018 4:05 PM PDT Date of Service: 12/04/2018 Attending | | Surgeon:Manoj Kumar MD Used Car Manager(s):Pritesh Chang | | Bethel Quevedo MD Preoperative [...] ribs were reapproximated using | | multiple ljhwdq-al-ragpm #2 Vicryl sutures. Serratus closed with #1 Vicryl, | | subcutaneous tissue closed with 2-0 Vicryl, skin closed with 4-0 Vicryl. Sterile | | dressings were applied. A single 28-Ecuadorean chest tube was placed through the inferior [...] 12/04/2018 15:15:41DT: 12/04/2018 16:05:12Job #: | | [id number] | + + CAPILLARY BLOOD GLUCOSE (NO [...] [facility]ON | [address] | [place], [place] | | | IESHA POINT OF CARE | [address] | [address] | | | TESTS | | | [...] - MARQUAM | [address] | [place], [place] | | | MARISSA JULIAN OF CARE | [address] | [address] | | | TESTS | | | | + + + + + ABG-FULL ROSALINDA POC (12/04/2018 12:55 PM PDT) + + [...] [facility] | [address] | [place] | | | MARISSA JULIAN OF CARE | [address] | [address] | | | TESTS | | | | + + + + + ABG-FULL ABL, POC (12/04/2018 10:21 AM PDT) + + [...] | | | | | mmol/L | MARMONISHAAM | | [...] + | [facility] | [address] | [place], [place] | | | IESHA POINT OF [facility] | [address] | [address] | | | TESTS | | | [...] nodes | | | | | | (08/22)H. 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 | | | | | | Lymph [...] nodes (3/9) | | | | | | Largest [...] edition): | | | | | | [id number]: The | | | | | | [...] | | | | | | MD Mikhial - | | | | | | Surgical Pathology | | | | | | Fellow Jenny | | | | | | MD Rubina, PhD | | | | | | | | | | | | PathologistPathology, | | | | | | [facility] | | | | | | UniversityMy electronic | | | | | | [...] | | | | | | Spaces (ROBEROT): Not | | | | | | [...] number | | | | | | [id number].A. Lymph node, | | | | | [...] surfaces. | | | | | | Tire Installer sections | | | | | | [...] | | | | | | density, hospital sales representative | | | | | [...] mass. | | | | | | Tire Installer sections | | | | | | [...] | | | | | | from [id number]: 3.2 cm | | | | | [...] mass, | | | | | | hospital sales representative sections, | | | | | | to include relationship | | | | | | with pleura in | | | | | | [id number]: Subpleural | | | | | | induration, | | | | | | hospital sales representative | | | | | | [id number]: Uninvolved | | | | | | parenchyma, | | | | | | hospital sales representative | | | | | | [id number]: 1 density | | | | | | suggestive of lymph | | | | | | node, [id number]: 1 | | | | | | [...] PathologistPathology, | | | | | | [facility] | | | | [...] PathologistPathology, | | | | | | [facility] | | | | | [...] PathologistPathology, | | | | | | [facility] | | | | [...] PathologistPathology, | | | | | | [facility] | | | | [...] PathologistPathology, | | | | | | [facility] | | | | [...] PathologistPathology, | | | | | | [facility] | | | | [...] PathologistPathology, | | | | | | [facility] | | | | [...] PathologistPathology, | | | | | | [facility] | | | | [...] PathologistPathology, | | | | | | [facility] | | | | [...] PathologistPathology, | | | | | | [facility] | | | | [...] PathologistPathology, | | | | | | [facility] | | | | [...] PathologistPathology, | | | | | | [facility] | | | | | | UniversityFrozen [...] PathologistOHSU | | | | | | Pathology [facility] | | | | | | CampusFrozen [...] PathologistOHSU | | | | | | Pathology [facility] | | | | | | [place] that point | | | | + [...] | + + + + + | [facility] DEPARTMENT | [address] | [place] [address] | | | PATHOLOGY | [address] [...] | | | SERVICES, | signed by [facility] | | | | | CENTER FOR | Christiano Ta MD on | | [...] fine | | LABORATORY | signed by Sun | | Diagnosis | needle aspiration: | | SERVICES, | Christiano Ta MD on | | | Consistent with lymph [...] case | | | | | | ([id number])]. No | | | | | | definite carcinoma cells | | | | | | seen are seen in this | | | | | | sampling, however see | | | | | | case [id number]. Case | | | | | | [...] PathologistPathology, | | | | | | [facility] | | | | | | [facility] electronic | | | | | | [...] PathologistPathology, | | | | | | [facility] | | | | | | Amity | | | | + + + [...] | + + + + + | [facility] | [address] | [place] [address] | | | SERVICES, [facility] | | | | | HEALTH + HEALING | | | | + + + + + | [facility] | [address] | [place] [address] | | | PATHOLOGY | [address] [...] MARQUAM | [address] | [place] | | | MARISSA JULIAN OF CARE | [facility] | [address] | | | TESTS | | | [...] HOURS, First dose on Sun12/12/18 | | AM PDT | | | [...] | | | | | modification) on [facility] 12/12/18 at | | | | | [...] PF (XYLOCAINE MPF) 10 | Given | 12/08/19 | 6 mL | | Surgical | | mg/mL (1 %) injection | | 19 3:28 | | | Site | | INTRAPROCEDURE PRN, Starting Sat | | PM PDT | | [...]
--- OUTSIDE RECORDS SUMMARY | ~2020-03-30 | XMS | Encounter Summary ---
Demographics + + + | Address | [address] | | | [place] [address] | + + + | Home Phone [...] Team Providers + +------+ + | Care Ski Lift Operator Name | Role | Phone | [...] | | Neoplasm | CARLO Allen | [facility] [address] | | | | | Procedures | [address] | [address] | | | | | STRESS | Ave | [address] | | | | | DOBUTAMINE | [facility] [place] | [place] | | | | | ECHOCARDIOGR | [address] | Building, 2nd | | | | | AM, ADULT | Phone: | floor | | | | | | [phone] | [facility] [place] | | | | | | Fax: | [address] | | | | | | [phone] | Phone: | | | | | | | [phone] | +--------+--------+ + + + + Encounter Details +--------+ + + + + | Date | Type | Department | Care Team | Description | +--------+ + + + + | 11/26/ | Hospital | Cardiac | | | | 2019 | Encounter | Non-Invasive Testing | | | | | | at [facility] [address] | | | | | | [facility] | | | | [facility], | | | | | | [address] | | | | | | [place], [place] | | | | | | [address] | | | | | | [phone] | | | +--------+ + + + [...] | | | | | Melania Luna [facility] | | | | | | [place] [address] | | | | | | [phone] | | | | | | | | +--------+---------+ + + + | 04/30/ | Office | Otolaryngology | Augustine Nolan | | | 2019 | Visit | | MD Debbie [address] | | | | | | [address] | | | | | | [place], [place] | | | | | | [address] | | | | | | [phone] | | | | | | | [...] DEPT OF | [address] | [place], [place] | | | CARDIOLOGY | [address] | [address] | | + + + + + [...]
--- OUTSIDE RECORDS SUMMARY | ~2020-03-30 | XMS | Encounter Summary ---
Demographics + + + | Address | [address] | | | [place] [address] | + + + | Home Phone | | + + + | Preferred Language | Unknown | + + + | Marital Status | Single | + + + | Alevism Affiliation | Unknown | + + + | Race | Unknown | + + + | Ethnic Group | Unknown | + + + Author + + + | Author | [facility] | | | and Jakobana | + + + | Organization | [facility] | | [...] Team Providers + +------+ + | Care Processing Specialist Name | Role | Phone | + +------+ + | Lauryn [place] PA-C | PCP | | + +------+ + Encounter Details +--------+ + + + + | Date | Type | Department | Care Team | Description | +--------+ + + + + | 12/21/ | Orders Only | [facility] | Adolfo, | Malignant neoplasm | | 2019 | | [facility] | Boubacar Daniels MD [address] | of hilus of lung, | | | | [facility] [address] | unspecified | | | | [address] [place] | [address] [place], [place] | laterality (HCC) | | | | [place] [address] | [address] | | | | | [phone] | | | +--------+ + + + [...] | +--------+ + + + + | 09/01/ | Appointment | Radiation Oncology | Rootvik, Treva | | | 2019 | | | DEISY Hernandez [address] | | | | | | [address] | | | | | | [place] [address] | | | | | | [phone] | | | | | | | | +--------+ + + + + documented as of this encounter Visit Diagnoses + + | Diagnosis | + + | Malignant neoplasm of hilus of lung, unspecified laterality (HCC) | + + documented in this encounter"
--- OUTSIDE RECORDS SUMMARY | ~2020-03-30 | XMS | Encounter Summary ---
Demographics + + + | Address | [address] | | | [place] [address] | + + + | Home Phone | | + + + | Preferred Language | Unknown | + + + | Marital Status | Single | + + + | Quaker Affiliation | NRP | + + + | Race | White | + + + | Ethnic Group | Not or | + + + Author + + + | Author | [facility] | + + + | Organization | [facility] | + + + | Address | Unknown | + + + | Phone | Unavailable | + + + Support + + +---------+ + | Name | Relationship | Address | Phone | + + +---------+ + | Laura Allred | ECON | Unknown | | + + +---------+ + Care Team Providers + +------+ + | Care Size Worker Name | Role | Phone | [...] Ant | reconciliation | | | | [facility] | [address] | | | | | [address] | [place], [place] | | | | | [facility] | [address] | | | | | and [place], | | | | | | [address] | | | | | | [place], [place] | | | | | | [address] | | | | | | [phone] | | | +--------+ + + + [...] | | | | | Melania Luna [place], | | | | | | [place] [address] | | | | | | [phone] | | | | | | | | +--------+---------+ + + + | 04/30/ | Office | Otolaryngology | Augustine Nolan | | | 2020 | Visit | | MD Debbie [address] | | | | | [address] | | | | | | [place] | | | | | | [address] | | | | | | [phone] | | | | | | | | +--------+---------+ + + + documented as of this encounter Visit Diagnoses Not on filedocumented in this encounter
--- OUTSIDE RECORDS SUMMARY | ~2020-03-30 | XMS | Encounter Summary ---
Demographics + + + | Address | [address] | | | [place] [address] | + + + | Home Phone | | + + + | Preferred Language | Unknown | + + + | Marital Status | Single | + + + | Adventist Affiliation | Unknown | + + + | Race | Unknown | + + + | Ethnic Group | Unknown | + + + Author + + + | Author | [facility] | | | and Jakobana | + + + | Organization | [facility] [...] Team Providers + +------+ + | Care Diesel Power Shovel Operator Name | Role | Phone | + +------+ + PCP | Unavailable | + +------+ + Encounter Details +--------+ + + + + | Date | Type | Department | Care Team | Description | +--------+ + + + + | 06/10/ | [facility] | ISSA CHAMORRO | Dharmesh Almonte | | | 2013 | Encounter | HOSPITAL EMERGENCY | MD [address] | | | | | [address] | [facility] | | | | | [address] [place] | [place] [address] | | | | | [id number] | [phone] | | | | | [phone] | | | +--------+ + + + [...] | | | | | [place] [address] | | | | | | [phone] | | | | | | | | +--------+ + + + + documented as of this encounter Visit Diagnoses Not on filedocumented in this encounter"
--- OUTSIDE RECORDS SUMMARY | ~2020-03-30 | XMS | Encounter Summary ---
Demographics + + + | Address | [address] | | | [place] [address] | + + + | Home Phone | | + + + | Preferred Language | Unknown | + + + | Marital Status | Single | + + + | Latter Day Affiliation | NRP | + + + | Race | White | + + + | Ethnic Group | Not or | + + + Author + + + | Author | [facility] | + + + | Organization | [facility] | + + + | Address | Unknown | + + + | Phone | Unavailable | + + + Support + + +---------+ + | Name | Relationship | Address | Phone | + + +---------+ + | Laura Allred | ECON | Unknown | | + + +---------+ + Care Team Providers + +------+ + | Care Web Production Assistant Name | Role | Phone | [...] | ENDOSCOPIC | | | | Rd [facility] | [address] | GASTROSTOMY | | | | Hospital Admitting | [place], [place] | | | | | Desk Located on the | [address] | | | | | 9th floor | [phone] | | | | | [place], [place] | | | | | | [address] | | | +--------+---------+ + + + [...] Kumar MD Summary Author: MALLIKA DIAZ; MELISSA AB NP Date of admission: 12/04/2018 Date of [...] Discharge Medications: Sussy Allred Home Medication Instructions ABRAHAN:[id number] Printed on:12/13/18 8713 Medication Information acetaminophen 325 mg oral tablet [...] be sent through Care Everywhere.Lung Resection: Post-op (German)Mediastinoscopy: Pre-op (German)documented in this encounter Medications at Time of [...] PM PDTLeft chest tube removed. Keena Falcon CCC-COPY DIRECTOR - 12/13/2018 8:11 AM PDT ENT SPEECH [...] Voice clear, breathing comfortably. No further acute COPY DIRECTOR needs. PLAN: 1. ADAT back to regular diet. Pills by mouth okay - in liquids or purees as she wishes. -Aspiration precautions - upright with all PO, single small bites/sips, one bite/sip at a time -L head-turn + chin-tuck is fine if patient finds it helpful with liquids 2. TFs have been discontinued 3. ENT COPY DIRECTOR will sign-off. Patient can follow-up with us as outpatient in clinic with Dr. Jose arce as needed. Keena Myles MS, CCC-COPY DIRECTOR Speech-Language Pathologist [facility] Dept. of Otolaryngology, [address] [address] Pager: [phone] Sharifa YBARRA, Terri ramirez - 12/13/2018 7:11 [...] mechanical soft diet. Tube feeds off. Plan (myls-ao-cfuzaqou issues): - Aspiration pneumonitis: Resolved - Hypophosphatemia: [...] Stacy Quevedo MD Cardiothoracic Surgery Fellow Pager: [phone] Keena Falcon CCC- COPY DIRECTOR - 12/12/2018 12:22 PM PDT ENT SPEECH [...] may not be indicated until 6 weeks post-[facility] ent. DIETARY STATUS: Purees and [...] resident on- call. Recommend diet upgrade to [facility] soft and any liquids for more [...] of TFs to promote appetite 3. ENT COPY DIRECTOR will continue to follow. Please page [phone] or [phone] as needed. Keena Myles MS, CCC-COPY DIRECTOR Speech-Language Pathologist [facility] [place] Dept. of Otolaryngology, [address] [place] [place] [address] Pager: [phone] Sharifa YBARRA, Terri ramirez - 12/12/2018 7:53 [...] a PEG tube for nutri tion. Plan (wynw-nw-gdudhjvh issues): - Aspiration pneumonitis: Productive sputum, augmentin [...] Stacy Quevedo MD Cardiothoracic Surgery Fellow Pager: [phone] oKeena lopez, [facility]- COPY DIRECTOR - 12/11/2018 2:44 PM PDT ENT SPEECH [...] verified. The patient was evaluated in the [facility] 10th floor Radiology suite & was [...] re: decrease or discontinue TFs 3. ENT COPY DIRECTOR will follow-up on morning. Please page [phone] or [phone] as needed. Keena Myles MS, CCC-COPY DIRECTOR Speech-Language Pathologist [facility] Dept. of Otolaryngology, [address] [place] [address] Pager: [phone] Taye Falcon CCC-COPY DIRECTOR - 12/11/2018 10:26 AM PDT ENT SPEECH [...] to improve and tolerate PO. 4. ENT COPY DIRECTOR [place] [phone] [place] [phone] any time with questions or concer ns. Keena Myles MS, CCC-COPY DIRECTOR Speech-Language Pathologist [facility] [place] Dept. of Otolaryngology, [address] [facility] [address] [place] [address] Pager: [phone] Sharifa YBARRA, Terri ramirez - 12/11/2018 8:24 [...] PEG tube and stric t NPO. Plan (lfia-zf-glumrdax issues): - Aspiration pneumonitis: Productive sputum, augmentin [...] Stacy Quevedo MD Cardiothoracic Surgery Fellow Pager: [phone] Meggan Howe SLP - 4:21 PM PDTINPATIENT ENT SPEECH PROGRESS NOTE: Order received, chart reviewed. Patient with history of "large volume aspiration", even un clear. Recommend objective swallow evaluation in Radiology Sunday, 12/11 prior to initiat ion of p.o. Intake. Recommend: NPO, all nutrition/hydration/medication via PEG Plan: MBS Sunday. Meggan Downs, Ph.D., [facility]-COPY DIRECTOR Floor Waxer Director, [facility] Otolaryngology, Head and Neck Surgery [facility] [phone] Augustine Roa MD - 12/10/2018 9:51 AM PDT PATIENT NAME: Sussy Allred [facility] MR#: [id number] : 1950 PRIMARY CARE PROVIDER: MALLIKA [place] [...] Intake/Output Summary (Last 24 hours) at 12/10/18 0996 Last data filed at 12/10/18 0558 Gross per 24 hour Intake 2132 ml [...] Dr. Jose da silva. Augustine Nolan M.D. Floor Waxer Laryngology and Head & Neck SurgeryElectronically signed [...] PEG tube and stric t NPO. Plan (htyk-xm-fxutagjm issues): - Aspiration pneumonitis: Productive sputum, augmentin [...] Stacy Quevedo MD Cardiothoracic Surgery Fellow Pager: [phone] Kiya Stovall MD,PhD - 12/09/2018 2:43 PM [...] removal. APS will sign off, please page [phone] if there are questions or concerns. APS happy to repla ce epidural in future if primary team and patient think it is needed. Kiya Santos MD Pager [phone] Department of Anesthesiology and Perioperative Medicine Chronic [...] PEG tube and stric t NPO. Plan (kfif-pg-mlbgaasr issues): - Aspiration pneumonitis: strict NPO, aggressive [...] Stacy Quevedo MD Cardiothoracic Surgery Fellow Pager: [phone] ee Dickerson, ACNP - 12/09/2018 9:44 AM PDT Cardiovascular Intensive Care Unit Team Progress Note CVICU D2 Assigned #[id number] ICU Admission Reason Most Recent Value ICU [...] left vocal cord dysmotility as evidenced on SWITCHBOARD OPERATOR ASSISTANT scope per ENT. 24 Hour events - [...] dysphagia. - Strict NPO, consider re consulting COPY DIRECTOR today pending course and ENT recs - [...] 12/07 - Strict NPO - ENT performed SWITCHBOARD OPERATOR ASSISTANT scope with evidence of left vocal cord [...] Manoj Kumar MD Admitting Provider Cardiothoracic Surgery 00034 Quality section FAST HUG Feeding: Tube Feeds [...] the recent imaging availabl e. CARMELO Riggins [facility] DEPARTMENT: [facility] ICU CARDIAC Place of Service:- Inpatient CSN: [id number] Suggested Modifier: None Suggested CPT: TO MACHINE SETTER AND REPAIRER Author:CARMELO Riggins [address] [address]Woosnoesmkqyfa signed by CARMELO Riggins at 12/09/2018 11:2 [...] Hamm MD Anesthesiology PGY1 APS Team Pager [phone] Associated attestation - Kiya Cedillo MD,PhD - 12/09/2018 4:57 PM PDTI saw and evaluated patient Ms. Sussy Allred with Resident: Dr. Hamm. I reviewed all details o f Ms. Sussy Allred s epidural block management. I have reviewed the resident s note and I agree with the plan of care as documented. I do not have additional comments. Kiya Santos MD,PhDThe University Of Toledo Medical CenterDennis AK- - 12/08/2018 6:40 PM PDTFormatting of this no te might be different from the original. Cardiovascular Intensive Care Unit Clinical Update Note Team: D2 Team Pager: [phone] Attending: Cece Pt Name: Sussy Allred ID: [...] left vocal cord dysmotility as evidenced on SWITCHBOARD OPERATOR ASSISTANT scope per ENT. Given her likely long-term [...] Unit Team Progress Note CVICU D2 Assigned #[id number] ICU Admission Reason Most Recent Value ICU [...] left vocal cord dysmotility as evidenced on SWITCHBOARD OPERATOR ASSISTANT scope per ENT. Given her likely long-term [...] 12/07 - Strict NPO - ENT performed SWITCHBOARD OPERATOR ASSISTANT scope with evidence of left vocal cord [...] Manoj Kumar MD Admitting Provider Cardiothoracic Surgery 43181 Jama Zhao MD ICU PM Attending Anesthesiology 87288 Quality section FAST HUG Feeding: Tube Feeds: [...] e. Date of Service: 12/08/2018 MALLIKA STONER [facility] DEPARTMENT: [facility] ICU CARDIAC Place of Service:- Inpatient CSN: [id number] Suggested Modifier: None Suggested CPT: TO MACHINE SETTER AND REPAIRER Author:MALLIKA STONER [address] [address]Gjhfuxhqbtbhic signed by MALLIKA Stoner at 12/08/2018 5:33 PM P Dennis Sutton MD - 12/08/2018 10:12 AM PDT Cardiovascular Intensive Care Unit Attending Progress Note CVICU D2 Assigned #[id number] ICU Admission Reason Most Recent Value ICU [...] left vocal cord dysmotility as evidenced on SWITCHBOARD OPERATOR ASSISTANT scope per ENT. Given her likely long-term [...] Manoj Kumar MD Admitting Provider Cardiothoracic Surgery 89679 Jama Zhao MD ICU PM Attending Anesthesiology 08805 Code Status Code Status Full Code Quality section I have spent a total of 38 minutes in the direct care and management of this patient indepe ndent of any time spent teaching or performing any separately billable procedures. I reviewe d the documented findings, all data and the recent imaging available. Seen with PA/SWITCHBOARD OPERATOR ASSISTANT myah . Please see their note for details. I reviewed the documented findings, all data and the re cent imaging available. Dennis Myrick MD Author:Dennis Myrick MD [address] [address]Dydribjldzanzk signed by Dennis Myrick MD at 12/08/2018 [...] Louie Moura MD Adult Acute Pain Service [facility] Pager#: [phone] Email: [email or web address] Alcocer MD - 12/08/2018 8:25 AM [...] post-procedure ye , which is reassuring. Plan (uwbq-wz-vcjbtbog issues): - Aspiration pneumonitis: strict NPO, aggressive [...] - Discuss with MD Coreen Farley MD [facility] General Surgery Pager #[phone] Eloina, Dariana dudley PA-C - 12/08/2018 5:02 AM PDTFormatting of this note might be different from the or iginal. Cardiovascular Intensive Care Unit Clinical Update Note Team: D2 Team Pager: [phone] Attending: Cece Pt Name: Sussy Allred ID: [...] left vocal cord dysmotility as evidenced on SWITCHBOARD OPERATOR ASSISTANT scope per ENT. Given her likely long-term [...] General Surgery, PGY-3 EGS consult resident pager: [phone] Jama Ramsey MD - 12/07/2018 7:30 PM PDT Cardiovascular Intensive Care Unit Attending Progress Note CVICU D2 Assigned #[id number] ICU Admission Reason Most Recent Value ICU [...] left vocal cord dysmotility as evidenced on SWITCHBOARD OPERATOR ASSISTANT scope per ENT. Given her likely long-term [...] Manoj Kumar MD Admitting Provider Cardiothoracic Surgery 88766 Jama Zhao MD ICU PM Attending Anesthesiology 53473 Code Status Code Status Full Code This [...] and the recent imaging available. Seen with PA/SWITCHBOARD OPERATOR ASSISTANT Chalino. Please see their note for details. I reviewed the documented findings, all data and the rec ent imaging available. Date of Service: 12/07/2018 [facility] DEPARTMENT: [facility]E ICU CARDIAC Place of Service:- Inpatient CSN: [id number] Suggested Modifier: None Suggested CPT: TO MACHINE SETTER AND REPAIRER Author:Jama Zhao MD [address] [address]Aqapqnyxehmepm signed by Jama Zhao MD at 12/07/2018 [...] Unit Team Progress Note CVICU D2 Assigned #[id number] ICU Admission Reason Most Recent Value ICU [...] left vocal cord dysmotility as evidenced on SWITCHBOARD OPERATOR ASSISTANT scope per ENT. Given her likely long-term need fo r tube feeding given her dysphagia, EGS consulted and plans for PEG. Patient's ICU course co mplicated by hypertension (required phenylephrine now weaned off) and high volume aspiration event with hypoxia requiring HFNC 20L. Remains hemodynamically stable. 24 Hour events - Strict NPO with concern for high volume aspiration, COPY DIRECTOR signed off for now - Overnight worsening [...] event - Strict NPO - ENT performed SWITCHBOARD OPERATOR ASSISTANT scope with evidence of left vocal cord [...] Manoj Kumar MD Admitting Provider Cardiothoracic Surgery 51631 Jama Zhao MD ICU PM Attending Anesthesiology 96597 Quality section FAST HUG Feeding: NPO Analgesia: Epidural (HM-bupiv), rectal tylenol, lido patches Sedation: None Thromboprophylaxis: Lovenox Head of Bed: Head of Bed >30 degrees Ulcer Prophylaxis: Famotidine Glycemic Control: insulin sliding Created by Sonya Barron MD Author:Sonya Barron MD [address] [address] [place] [address]Ohkqvgprmmcasu signed by Dennis Myrick MD at 12/07/2018 1:48 PM Dennis Good MD - 12/07/2018 10:19 AM PDTFormatting of this note might be differen t from the original. Cardiovascular Intensive Care Unit Attending Progress Note CVICU D2 Assigned #[id number] ICU Admission Reason Most Recent Value ICU [...] Manoj Kumar MD Admitting Provider Cardiothoracic Surgery 00543 Jama Zhao MD ICU PM Attending Anesthesiology 19331 Code Status Code Status Full Code I [...] ICU CARDIAC Place of Service:- Inpatient CSN: [id number] Suggested Modifier: GC - Resident Involved Suggested CPT: TO MACHINE SETTER AND REPAIRER Dennis Myrick MD Author:Dennis Myrick MD [address] [address]Wlzoebnpglkwyf signed by Dennis Myrick MD at 12/07/2018 [...] strict NPO yesterday with concern for aspiration, COPY DIRECTOR signed off for now - overnight worsening [...] he risk of prolonged intubation post-anesthesia. Plan (cgiw-zh-pkgdkvuz issues): - Aspiration pneumonitis: strict NPO, aggressive [...] and discussed with Dr. Chaya Kim MD [facility] General Surgery Pager #[phone] Gayle Mayfield - 12/07/2018 9:21 AM PDTTransthoracic echocardiogram completed. Final report to suzy montague. Dennis Duvall PA-C - 12/07/2018 5:34 AM PDT Cardiovascular Intensive Care Unit Clinical Update Note Team: D2 Team Pager: [phone] Attending: Cece Garsia Name: Sussy Allred ID: [...] ( LOS: 3 days ) Attending Provider: eDrrick Handley MD Interval History and Events: -NAEON [...] General Surgery, PGY-3 EGS consult resident pager: [phone] Associated attestation - Derrick Handley MD - 12/08/2018 10:17 AM PDTATTENDING ADDENDUM I saw and examined Sussy Allred with the residents on 12/07 and agree with the assessmen t and plan as outlined in this note and participated in the planning of care. Derrick Handley MD FACS primer waterproofing machine operator Division of Trauma, Critical Care, and Acute Care Surgery [id number] Dennis Myrick MD - 12/06/2018 11:01 AM PDTFormatting of this note might be different f rom the original. Cardiovascular Intensive Care Unit Attending Progress Note CVICU D2 Assigned #[id number] ICU Admission Reason Most Recent Value ICU Admission reason post-op management filed at 12/04/2018 1538 Documentation Date Row Name 12/04/18 1538 Day [...] is comfortable - pt will need likely retirement enteral access. Has requested surgical feeding tube [...] Manoj Kumar MD Admitting Provider Cardiothoracic Surgery [address] [place] necessity reviewed: Plan to DC today I [...] ICU CARDIAC Place of Service:- Inpatient CSN: [id number] Suggested Modifier: GC - Resident Involved Suggested CPT: TO MACHINE SETTER AND REPAIRER Dennis Myrick MD Author:Dennis Myrick MD [address] [id number] signed by Dennis Myrick MD at 12/06/2018 [...] Stacy Quevedo MD Cardiothoracic Surgery Fellow Pager: [phone] Sonya Li MD - 11/18 7:50 AM PDT Cardiovascular Intensive Care Unit Team Progress Note CVICU D2 Assigned #[id number] ICU Admission Reason Most Recent Value ICU [...] DHT vs eventual Gtube - ENT performed SWITCHBOARD OPERATOR ASSISTANT scope with evidence of left vocal cord [...] Manoj Kumar MD Admitting Provider Cardiothoracic Surgery 45654 Quality section A-Line necessity reviewed: Plan to DC today Doty necessity reviewed: Plan to DC today FAST HUG Feeding: NPO Analgesia: epidural, Tylenol, lidocaine patches Sedation: None Thromboprophylaxis: Lovenox Head of Bed: Head of Bed >30 degrees Ulcer Prophylaxis: Famotidine Glycemic Control: insulin sliding Created by Sonya Barron MD Author:Sonya Barron MD [address] [address] [place] [address]Pmjtjbljrwayfm signed by Dennis Myrick MD at 12/06/2018 [...] revealed minimally mobile LEFT true vocal cord. COPY DIRECTOR evaluation with concern for ri sk of [...] Flores MD Anesthesiology/CCM Fellow APS Team Pager [phone] Associated attestation - Louie Moura MD - 12/07/2018 2:59 PM PDTI saw and evaluated mallika Allred with trainee: Dr. Flores . I have reviewed the trainee's note and I agree with the plan of care as documented. Louie Moura MD Adult Acute Pain Service [facility] Pager#: [phone] Email: [email or web address] - 12/05/2018 9:06 PM PDTFormatting of this note mi ght be different from the original. Cardiovascular Intensive Care Unit Clinical Update Note Team: D2 Team Pager: [phone] Attending: Layla Pt Name: Sussy Allred ID: Abbreviated HPI Update: 1. Hypotension a. Impoved 12/05/2018 after 2L crystalloid b. UO improved with IVF 2. Recurret Laryngeal nerve a. ENT Eval complete b. Pending re eval by COPY DIRECTOR for swallow this sim S: Pain, drowsy [...] Unit Team Progress Note CVICU D2 Assigned #[id number] ICU Admission Reason Most Recent Value ICU [...] levothyroxine 50mcg PO DAILY after clear by COPY DIRECTOR Cardiovascular HTN (hypertension) Unknown Current Assessment & [...] - restart PO PPI when clear by COPY DIRECTOR At risk for Dysphagia Unknown Current Assessment [...] Manoj Kumar MD Admitting Provider Cardiothoracic Surgery 46489 Quality section A-Line necessity reviewed: Idhs-qn-ymxo blood pressure monitoring Doty necessity reviewed: Hourly/Accurate measurement of urinary output for clinical manage ment of critically ill patients FAST HUG Feeding: NPO Analgesia: Tylenol, epidural (bupiv-fent) Sedation: None Thromboprophylaxis: SCDs Head of Bed: Head of Bed >30 degrees Ulcer Prophylaxis: Famotidine Glycemic Control: insulin sliding Created by Sonya Barron MD Author:Sonya Barron MD [address] [address] [place] [address]Oxwcjgjqmzkqol signed by Dennis Myrick MD at 12/06/2018 7:16 AM Ava Abraham, CF-COPY DIRECTOR - 12/05/2018 10:00 AM PDTEJ SPEECH PATHOLOGY-INPATIENT [...] HISTORY: she is single and lives in [place], [place] DIETARY STATUS: Current diet: The patient [...] afternoon when less lethargic/sedate. Ava Allred M.S., CF-COPY DIRECTOR Speech-Language Pathology Fellow [facility] [phone] Pager: [phone] Dennis Good MD - 12/05/2018 8:57 AM PDT Cardiovascular Intensive Care Unit Attending Progress Note CVICU D2 Assigned #[id number] ICU Admission Reason Most Recent Value ICU [...] Manoj Kumar MD Admitting Provider Cardiothoracic Surgery 15896 Code Status Code Status Full Code Quality section A-Line necessity reviewed: Cxqu-ki-jjpf blood pressure monitoring Doty necessity reviewed: Acute [...] ICU CARDIAC Place of Service:- Inpatient CSN: [id number] Suggested Modifier: GC - Resident Involved Suggested CPT: TO MACHINE SETTER AND REPAIRER Dennis Myrick MD Author:Dennis Myrick MD [address] [address]Crvcqtptwwtmzt signed by Dennis Myrick MD at 12/05/2018 [...] Flores MD Anesthesiology/CCM Fellow APS Team Pager [phone] Associated attestation - Kiya Cedillo MD,PhD - [...] Stacy Quevedo MD Cardiothoracic Surgery Fellow Pager: [phone] ennis Allred PA-Frances - 3:00 AM PDT Cardiovascular Intensive Care Unit Clinical Update Note Team: D2 Team Pager: [phone] Attending: Layla Pt Name: Sussy Allred ID: [...] - restart PO PPI when clear by COPY DIRECTOR Hypothyroidism 12/04/2018 Assessment & Plan Note: - restart home levothyroxine 50mcg PO DAILY after clear by COPY DIRECTOR Acute post-operative pain 12/04/2018 Assessment & Plan [...] LEVEL/LATERALITY: bilateral ATTENDING PHYSICIAN: Hellen Herman MD MANAGER TRADE MARKETING: Jamey Flores MD, Manda Hamm MD ANESTHESIA: [...] 75 mL/hr intravenous CONTINUOUS 75 mL/hr (12/04/18 0371) Anticoagulants: Yes - Heparin 9mL intraop, last [...] procedure. MD Jamey Boss M.D. Assisted our information technology internship. I saw and evaluated patient Ms. [...] Flores. I reviewed all details of Ms. rPerna Allred s epidural block management. I have [...] | | | | | | [facility], | | | | | | [place] [address] | | | | | | [phone] | | | | | | | | +--------+---------+ + + + | 04/30/ | Office | Otolaryngology | Augustine Nolan | | | 2019 | Visit | | MD Debbie [address] [facility] | | | | | | [address] | | | | | | [place], [place] | | | | | | [address] | | | | | | [phone] | | | | | | | [...] + +--------+ + + + | TO MACHINE SETTER AND REPAIRER | Routin | 12/05/2018 | | Results [...] [facility] | [address] | [place], [place] | | | [facility] | [address] | [address] | | | TESTS | | | [...] [facility] | [address] | [place], [place] | | | [facility] POINT OF CARE | [address] | [address] | | | TESTS | | | | + + + + + X-RAY PORTABLE CHEST 1 VIEW (12/13/2018 8:24 AM PDT) + + | Specimen | + + | | + + + + + | Narrative | Performed At | + + + | EXAM: MD CHEST 1 VIEW HISTORY: eval interval change. [...] Interface - 12/13/2018 9:47 AM PDT EXAM: MD CHEST 1 | | VIEW HISTORY: eval [...] |Preliminary: Frieda Brumfield MD | |Dictation initiated: Friead Brumfield MD 12/13/2018 9:42 AM | + [...] [facility] | [address] | [place], [place] | | | [facility] CARE | [address] | [address] | | | TESTS | | | [...] [facility] | [address] | [place], [place] | | | [facility] | [address] | [address] | | | TESTS | | | [...] | MD Sae Cardiothoracic Surgery Fellow Pager: [phone] | | + + + CAPILLARY BLOOD [...] [facility] | [address] | [place], [place] | | | [facility] | [address] | [address] | | | TESTS | | | [...] [facility] | [address] | [place], [place] | | | MAR[facility]SA JULIAN OF [facility] | [address] | [address] | | | TESTS | | | [...] + + + | SUZE [facility] | [address] | [place], [place] | | | [facility] | [address] | [address] | | | TESTS | | | [...] [facility] | [address] | [place], [place] | | | [facility]SA [facility]ULIAN [facility] CARE | [address] | [address] | | | TESTS | | | [...] [facility] | [address] | [place], [place] | | | MAR[facility]SA JULIAN OF CARE | [address] | [address] | | | TESTS | | | [...] + | SU[facility] - SAIDA | [address] [facility] [address] | [place], [place] | | | I[facility]HA THIDA OF [facility] | [address] | [address] | | | TESTS | | | [...] Preliminary: Keith Jung MD Dictation initiated: Keith Gutierres | | MD Erich 12/11/2018 11:37 AM [...] | + + + + + | [facility] | [address] [facility] | [place] [address] | | | SERVICES, CORE | [address] [...] + + | [facility] | [address] | [place] [address] | | | SERVICES, CORE | PARK [...] the MDRD equation recommended by the | [facility] | | National Kidney Disease Education Program. [...] | + + + + + | [facility] | [address] | [place] [address] | | | KOKI STUART | EULALIO [...] SAIDA | [address] | [place], [place] | | | [facility] PO[facility] CARE | [address] | [address] | | | TESTS | | | [...] [facility] | [address] | [place], [place] | | | MARISSA JULIAN OF [facility] | [address] | [address] | | | TESTS | | | [...] MARQUAM | [address] | [place], [place] | | | MAR[facility]SA JULIAN OF CARE | [address] | [address] | | | TESTS | | | [...] | + + + + + | [facility] | [address] | [place] [address] | | | SERVICES, CORE | EULALIO [...] [facility] | [address] | [place] [address] | | | SERVICES, CORE | PARK [...] | + + + + + | [facility] | [address] | [place] [address] | | | KOKI STUART | EULALIO [...] | + + + + + | [facility] | [address] | [place] [address] | | | SERVICES, CORE | EULALIO [...] | + + + + + | [facility] | [address] | [place] [address] | | | SERVICES, CORE | PARK [...] | + + + + + | [facility] | [address] | [place] [address] | | | SERVICES, CORE | PARK [...] LABORATORY | [address] | [place] [address] | | | SERVICES, CORE | PARK [...] | + + + + + | [facility] | [address] | [place] [address] | | | SERVICES, CORE | [address] | | | + + + + + X-RAY PORTABLE CHEST 1 VIEW (12/09/2018 5:41 AM PDT) + + | Specimen | + + | | + + + + + | Narrative | Performed At | + + + | EXAM: MD CHEST 1 VIEW HISTORY: Shortness of breath. [...] Interface - 12/09/2018 7:45 AM PDT EXAM: MD CHEST 1 | | VIEW HISTORY: Shortness [...] [facility] | [address] | [place] [address] | | | SERVICES, CORE | PARK [...] the MDRD equation recommended by the | [facility] | | National Kidney Disease Education Program. [...] | + + + + + | [facility] | [address] | [place] [address] | | | SERVICES, CORE | EULALIO [...] (H) | 60 - 99 mg/dL | [facility] - | | | GLUCOSE, | [...] [facility] | [address] | [place], [place] | | | MARISSA JULIAN OF CARE | [address] | [address] | | | TESTS | | | [...] [facility] | [address] | [place] [address] | | | SADE, KOKI | EULALIO [...] | + + + + + | [facility] | [address] | [place] [address] | | | SERVICES, CORE | EULALIO [...] | + + + + + | [facility] | [address] | [place] [address] | | | SERVICES, CORE | [address] | | | + + + + + X-RAY PORTABLE CHEST 1 VIEW (12/08/2018 4:58 AM PDT) + + | Specimen | + + | | + + + + + | Narrative | Performed At | + + + | EXAM: MD CHEST 1 VIEW HISTORY: SoB COMPARISON: Chest [...] Interface - 12/08/2018 10:59 AM PDT EXAM: MD CHEST 1 | | VIEW HISTORY: SoB [...] [facility] | [address] | [place] [address] | | | SERVICES, CORE | PARK [...] | + + + + + | [facility] | [address] [facility] | [place] [address] | | | SADE, KOKI | PARK [...] | + + + + + | [facility] | [address] | [place] [address] | | | SERVICES, CORE | EULALIO [...] operation. | | | Dereck Rodriguez MD [facility] 12K [address] [facility] Zoltan Jeremy [facility] | | | [place] [address] | | + + + PROCEDURE NOTE [...] | | | attempt. Midline lot number [id number]; there was excellent blood | | | [...] Performed At | + ----+ + | [facility] | [facility] | | [facility] [address] | CARDIOLOGY | | [address], [place] [address] Ph: | | | Pt Name: SUSSY ALLRED | | | Study Date/Time 12/07/2018 / 8:45:36 AMMRN: [id number] | | | Most recent prior: 11/26/2018Acc #: [id number] | | | No. previous echos: 1DOB: 1950 68 years Heart | | | Rate: 88 bpmHeight: 64.0 in Blood | | | Pressure: 104/64 mm/HgWeight: 145.0 lb | | | Gender: FBSA: 1.71 m | | | Order ID: [id number] Study | | | Location: 12KSonographer: Gayle [...] Report | | | electronically signed by: [id number] Kathleen Sam MD (12/07/2018, | | | [...] | | | |Report electronically signed by: [id number] Kathleen Sam MD (12/07/2018, 4:42:18 PM) | | | | | | | | | | | | Final | | + ----+ + + + | Procedure Note | + + | Interface, Cardiology Results - 12/07/2018 4:42 PM [facility] | | [facility] [address] [place] [address] | | [place], [place] [address] Pt Name: SUSSY REEVES | | CHALINO Study Date/Time 12/07/2018 / 8:45:36 AMMRN: [id number] [facility] | | recent prior: 11/26/2018Acc #: [id number] No. previous echos: 1DOB: | | 1950 68 years Heart Rate: 88 bpmHeight: 64.0 in Blood | | Pressure: 104/64 mm/HgWeight: 145.0 lb Gender: FBSA: | | 1.71 m | | Order ID: [id number] [facility] Van | | [facility] CenterSon[facility] 2:Referring Provider: Dennis AllredModalities Performed: 2D, [...] and indexed values Report electronically signed by: [id number] | | Kathleen Sam MD (12/07/2018, 4:42:18 [...] | | | |Report electronically signed by: [id number] Kathleen Sam MD (12/07/2018, 4:42:18 PM) | | | | | | | | Final | + + + + + + + | Performing | Address | City/State/Zipcode | Phone Number | | Organization | | | | + + + + + | [facility] | [address] | [place], [place] | | | CARDIOLOGY | [address] | [address] | | + + + + + X-RAY PORTABLE CHEST 1 VIEW (12/07/2018 5:56 AM PDT) + + | Specimen | + + | | + + + + + | Narrative | Performed At | + + + | EXAM: MD CHEST 1 VIEW HISTORY: SoB COMPARISON: Chest [...] Interface - 12/07/2018 12:19 PM PDT EXAM: MD CHEST 1 | | VIEW HISTORY: SoB [...] | + + + + + | [facility] | [address] | [place] [address] | | | SERVICES, CORE | EULALIO [...] + + | [facility] | [address] [facility] | [place] [address] | | | SERVICES, CORE | PARK [...] the MDRD equation recommended by the | [facility] | | National Kidney Disease Education [...] [facility] | [address] | [place] [address] | | | SERVICES, CORE | PARK [...] [facility] | [address] | [place] [address] | | | SERVICES, CORE | PARK [...] [facility] | [address] | [place] [address] | | | SERVICES, CORE | PARK [...] | + + + + + | [facility] | [address] [facility] | [place] [address] | | | SERVICES, [facility] | [address] | | | + + + + + X-RAY PORTABLE CHEST 1 VIEW (12/06/2018 6:10 AM PDT) + + | Specimen | + + | | + + + + + | Narrative | Performed At | + + + | EXAM: MD CHEST 1 VIEW HISTORY: SoB COMPARISON: Yesterday [...] Interface - 12/06/2018 8:38 AM PDT EXAM: MD CHEST 1 | | VIEW HISTORY: SoB [...] | + + + + + | [facility] | [address] | [place] [address] | | | SERVICES, CORE | EULALIO [...] Images archived to | | | institution windows server administrator | | + + + X-RAY PORTABLE CHEST 1 VIEW (12/05/2018 5:59 AM PDT) + + | Specimen | + + | | + + + + + | Narrative | Performed At | + + + | EXAM: MD CHEST 1 VIEW HISTORY: post left thoracotomy, [...] Interface - 12/05/2018 9:53 AM PDT EXAM: MD CHEST 1 | | VIEW HISTORY: post [...] Radial Catheter size: 3 | | | amharic x 5 cm Number of attempts: 3 [...] | + + + + + | [facility] | [address] | [place] [address] | | | SERVICES, CORE | EULALIO [...] [facility] | [address] | [place] [address] | | | KOKI STUART | EULALIO [...] [facility] | [address] | [place] [address] | | | SERVICES, CORE | [address] | | | + + + + + X-RAY PORTABLE CHEST 1 VIEW (12/04/2018 6:32 PM PDT) + + | Specimen | + + | | + + + + + | Narrative | Performed At | + + + | EXAM: MD CHEST 1 VIEW HISTORY: Status post left [...] Note | + + | 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, RadiMotorpaneer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 - 12/05/2018 9:54 AM PDT EXAM: MD CHEST 1 | | VIEW HISTORY: Status [...] | + + + + + | [facility] | [address] | [place] [address] | | | KOKI STUART | EULALIO [...] | + + + + + | [facility] | [address] | [place] [address] | | | SERVICES, CORE | EULALIO [...] | + + + + + | [facility] | [address] | [place] [address] | | | SERVICES, CORE | EULALIO [...] [facility] | [address] | [place], [place] | | | MARISSA JULIAN OF CHE | [facility] | [address] | | | TESTS | | | | + + + + + OPERATION RECORD (12/04/2018 4:05 PM PDT) + + | Procedure Note | + + | Manoj Kumar MD - 12/04/2018 4:05 PM PDT Date of Service: 12/04/2018 Attending | | Surgeon:Manoj Kumar MD Director Process(s):Pritesh Chang | | Bethel Quevedo MD Preoperative [...] ribs were reapproximated using | | multiple hdpdzo-hg-aeptl #2 Vicryl sutures. Serratus closed with #1 Vicryl, | | subcutaneous tissue closed with 2-0 Vicryl, skin closed with 4-0 Vicryl. Sterile | | dressings were applied. A single 28-Kazakh chest tube was placed through the inferior [...] 12/04/2018 15:15:41DT: 12/04/2018 16:05:12Job #: | | [id number] | + + CAPILLARY BLOOD GLUCOSE (NO [...] [facility] | [address] | [place], [place] | | | IESHA POINT OF CARE | [address] | [address] | | | TESTS | | | [...] - [facility] | [address] | [place], [place] | | | MARISSA JULIAN OF CARE | [address] | [address] | | | TESTS | | | [...] [facility] | [address] | [place], [place] | | | MARISSA JULIAN OF CARE | [address] | [address] | | | TESTS | | | [...] - [facility] | [address] | [place], [place] | | | IESHA POINT [facility] | [address] | [address] | | | TESTS | | | [...] lymph node with | | OF | Jenyn G | | | metastatic carcinoma | [...] edition): | | | | | | [id number]: The | | | | | | [...] PathologistPathology, | | | | | | [facility] | | | | [...] number | | | | | | [id number]. Lymph node, | | | | | [...] surfaces. | | | | | | Research Physician sections | | | | | | [...] | | | | | | density, plastic products sales representative | | | | | [...] mass. | | | | | | Research Physician sections | | | | | | [...] | | | | | | from [id number]: 3.2 cm | | | | | [...] mass, | | | | | | plastic products sales representative sections, | | | | | | to include relationship | | | | | | with pleura in | | | | | | [id number]: Subpleural | | | | | | induration, | | | | | | plastic products sales representative | | | | | | [id number]: Uninvolved | | | | | | parenchyma, | | | | | | plastic products sales representative | | | | | | [id number]: 1 density | | | | | | suggestive of lymph | | | | | | node, [id number]: 1 | | | | | | [...] PathologistPathology, | | | | | | [facility] | | | | [...] PathologistPathology, | | | | | | [facility] | | | | [...] PathologistPathology, | | | | | | [facility] | | | | [...] PathologistPathology, | | | | | | [facility] | | | | [...] PathologistPathology, | | | | | | [facility] | | | | [...] PathologistPathology, | | | | | | [facility] | | | | [...] PathologistPathology, | | | | | | [facility] | | | | [...] PathologistPathology, | | | | | | [facility] | | | | [...] PathologistPathology, | | | | | | [facility] | | | | [...] PathologistPathology, | | | | | | [facility] | | | | [...] PathologistPathology, | | | | | | [facility] | | | | [...] PathologistPathology, | | | | | | [facility] | | | | | | [facility] [...] | | | | | | Pathology [facility] | | | | | | [...] | | | | | | Pathology [facility] | | | | | | [place] [...] | + + + + + | [facility] | [address] | [place] [address] | | | PATHOLOGY | [address] [...] | | SERVICES, | signed by [facility] | | | | | [...] case | | | | | | ([id number])]. No | | | | | | definite carcinoma cells | | | | | | seen are seen in this | | | | | | sampling, however see | | | | | | case [id number]. Case | | | | | | [...] PathologistPathology, | | | | | | [facility] | | | | | | [facility] electronic | | | | | | [...] PathologistPathology, | | | | | | [facility] | | | | | | [place] | | | | + + + [...] | + + + + + | [facility] | [address] | [place] [address] | | | SERVICES, [facility] | | | | | HEALTH + HEALING | | | | + + + + + | [facility] | [address] | [place] [address] | | | PATHOLOGY | [address] [...] [facility] | [address] | [place], [place] | | | MARISSA JULIAN OF CARE | [facility] | [address] | | | TESTS | | | [...] | | | | | modification) on [facility] 12/12/18 at | | | | [...]
--- OUTSIDE RECORDS SUMMARY | ~2020-03-30 | XMS | Encounter Summary ---
Demographics + + + | Address | [address] | | | [place] [address] | + + + | Home Phone | | + + + | Preferred Language | Unknown | + + + | Marital Status | Single | + + + | Hoahaoism Affiliation | Unknown | + + + | Race | Unknown | + + + | Ethnic Group | Unknown | + + + Author + + + | Author | [facility] | | | and Jakobana | + + + | Organization | [facility] | | | and Jakobana [...] Team Providers + +------+ + | Care Momd Teacher Name | Role | Phone | [...] | | of left lung | [address] | [place], | | | | | (HCC) | [place], | [place] [address] | | | | | Procedures | [place] | Phone: | | | | | [address] | [address] | [phone] | | | | | | Phone: | Fax: | | | | | | [phone] | [phone] | | | | | | Fax: | | | | | | | [phone] | | +--------+--------+ + + + + Encounter Details +--------+ + + + + | Date | Type | Department | Care Team | Description | +--------+ + + + + | 04/22/ | Hospital | [facility] | Adolfo, | Acute respiratory | | 2019 | Encounter | [facility] | Boubacar Daniels MD 8519 | distress syndrome | | | | [facility] | [facility] | (ARDS) (HCC) | | | | [address] [place] | [address], [place] | (Primary Dx); | | | | [place] [address] | [address] | Malignant neoplasm | | | | [phone] | | of upper lobe of | | | | | | left lung (HCC); | | | | | | Postoperative anemia | | | | | | due to acute blood | | | | | | loss; Acute | | | | | | post-operative pain; | | | | | | Hypophosphatemia; | | | | | | Hypothyroidism, | | | | | | unspecified type; | | | | | | Neoplasm related | | | | | | pain | +--------+ + + + + Social [...] + + + | Blood Pressure | 133/84 | 04/22/2019 1:33 PM | | | | | PDT | | + + + + + | Pulse | 122 | 04/22/2019 1:33 PM | | | | | PDT | | + + + + + | Temperature | 36.8 C (98.2 F) | 04/22/2019 1:33 PM | | | | | PDT | | + + + + + | Respiratory Rate | 18 | 04/22/2019 1:33 PM | | | | | PDT | | + + + + + | Oxygen Saturation | 91% | 04/22/2019 1:33 PM | | | | | PDT | | + + + + + | Inhaled Oxygen | - | - | | | Concentration | | | | + + + + + | Weight | 51.2 kg (112 lb 14 | 04/22/2019 1:33 PM | | | | oz) | PDT | | + + + + + | Height | - | - | | + + + + + | Body Mass Index | 18.81 | 01/30/2019 2:26 PM | | | [...] encounter Progress Notes Boubacar Mata MD - 04/22/2019 1:35 PM PDTFormatting of this note might be differe nt from the original. Hematology/Oncology Progress Note [facility] [place] Pt. Name/Age/: Sussy Allred 69 y.o. 1950 Med. Record Number: [id number] Date of admission: 04/22/2019 The patient's primary care provider is Lauryn Stuart PA-C. Identifying Statement: Sussy Allred is a 69 y.o. female from [address] [place] [address] [address] [place] [id number] with Stage IIIA poorly differentiated adenocarcinoma of [...] Lidocaine patches Acute respiratory distress syndrome (ARDS) Hypophosphatemia Overview Last Assessment & Plan: Profound hypophosphatemia after TF started concerning for refeeding syndrome - Ok to restart feeds - Check lytes q12h Hypothyroidism Overview Last Assessment & Plan: - levothyroxine 50 mcg PFT daily Lung cancer Overview ACTIVE DIAGNOSIS: pT2a,pN2,M0, Stage [...] nodes (SUZE Kumar). Patholog ical specimen # [id number] was notable for a poorly differentiated adenocarcinoma, [...] 14, 2019; no evidence of metastatic disease. Current Assessment & Plan Sussy Allred returned to clinic on 04/22/2019 alone for follow-up of her Stage IIIA non -small cell lung cancer, adenocarcinoma, status post left upper lobe lobectomy followed by c oncurrent thoracic irradiation with carboplatin/pemetrexed chemotherapy. Review of systems is positive for odynophagia, unrelieved by topical fentanyl 25 mcg/hr. Clinical exam is notable for 3.8 kg weight loss. Laboratory exam is notable for Grade 2 anemia, and grade 3 thrombocytopenia. Assessment; odynophagia and myelosuppression following combined modality adjuvant chemoradi ation for Stage IIIA lung cancer. Plan; boost topical fentanyl to 50 mcg/hr. Take hydromorphone 2 mg every 3 hours as needed for breakthrough pain. Give 1000 cc NS iv daily x 4 days. Clinial and laboratory follow up on April 28, 2019. Postoperative anemia due to acute blood loss Overview Last Assessment & Plan: - monitor chest tube output - CBC daily Review of Systems: Constitutional: Pt reports severe fatigue - worsening over the last three days. Pt reports ongoing nausea; worsening over the last three days. Pt reports vomiting over the last three days. Pt states her fluid intake is poor with maybe 16oz of water a day "24 at the most". Pt 's appetite remains poor; minimal intake. Pt has lost 9 pounds since 04/14/19. Pt states she is very light headed and dizzy. Denies high fevers, shaking chills, anorexia, or night sweat s. Ear, Nose, Mouth, Throat: Pt reports ongoing dysphagia - unchanged. Pt reports ongoing mout h sores - unchanged. Denies odynophagia or tinnitus. Cardiovascular: Pt reports worsening shortness of breath at rest and with exertion - "I danii e two steps and I have to sit down". Pt reports continuous chest pain that is "sharp and sta bbing". Rating pain at 9/10 currently. Denies palpitations or orthopnea. Respiratory: Denies cough, hemoptysis, or sputum production. Gastrointestinal: Pt reports ongoing abdominal pain. Pt reports constipation after treatmen t but resolves with time; currently no issue. Denies constipation, diarrhea, melena, or brig ht red blood per rectum. Genitourinary: Denies hematuria or dysuria. Musculoskeletal: Denies joint pain or tenderness. Neurologic: Pt reports continued headaches - unchanged. Pt reports intermittent numbness/ti ngling of the fingers - unchanged, ongoing. Denies visual changes. Endocrine: Denies peripheral edema or heat/cold intolerance. Hematologic: Denies spontaneous bruising or bleeding. Integumentary: Denies rash, wounds or other skin concerns. Pain: Pt reporting 9/10 chest pain currently. Pt teary and stating that the fentanyl patch has not been providing adequate pain coverage over the last week. ROS otherwise negative Note: Pt here for labs and follow-up. My chart: Declined Scheduled Medications: Current Outpatient Medications Medication Sig Dispense Refill acetaminophen (TYLENOL) 325 mg tablet Take 325-650 mg by mouth every 6 hours as needed. acetaminophen-codeine 120-12 mg/5 mL solution Take 5 mLs by mouth every 6 hours as need ed for Pain. (Patient not taking: Reported on 04/14/2019) 473 mL 0 acyclovir (ZOVIRAX) 400 MG [...] two days after chemotherapy. 40 tablet 0 czanbsjijwVBXEC-hronvqfzn-lurinyae & magnesium hydroxide-simethicone (MAGIC MOUTHWASH) Take 5 [...] day, then 1 capsule three times daily (Patient not danii ing: Reported on 04/14/2019) 90 capsule 0 HYDROmorphone (DILAUDID) 2 mg tablet Take 1 tablet by mouth every 3 hours as needed for Pain. 90 tablet 0 lansoprazole (PREVACID) 30 mg [...] Apply twice a day to affected area (Patient not taking: Reported on 04/14/2019) 50 g 0 non-formulary medication Take 3 oz by mouth Daily. Nopalea supplement ondansetron (ZOFRAN ODT) 8 mg disintegrating tablet One tablet twice a day for two days after chemotherapy to block nausea (Patient not taking: Reported on 04/14/2019) 40 tablet 1 prochlorperazine 10 mg tablet Take 1 tablet by mouth every 6 hours as needed for Nausea . (Patient not taking: Reported on 04/14/2019) 30 tablet 1 sucralfate (CARAFATE) 1 g [...] was cancer Macular degen Mother Objectives: Temp: 36.8 C (98.2 F) BP: 133/84 Pulse: 122 Resp: 18 SpO2: 91 % on Min/Max Temp past 24 hours:No data recorded No intake or output data in the 24 hours ending 04/26/19 1538 Wt. Admission: Weight: 51.2 kg (112 lb 14 oz) Wt. Current: Weight: 51.2 kg (112 lb 14 o z) Wt Readings from Last 3 Encounters: 04/22/19 51.2 kg (112 lb 14 oz) 04/14/19 55 kg (121 lb 4.1 oz) 04/10/19 55.4 kg (122 lb 2.2 oz) Physical Exam: General: The patient is [...] Normal mood and affect. ECOG Performance Status [] 0 [x] 1 [...] Oncol.: Niranjan Lopez., Romeo, RGris., Renaldo Parish., Nico Avery, Yareli Tompkins., Suzanne [...] SUSSY ALLRED "LENKA" ( ) as of 04/26/2019 15:16 Ref. Range 04/22/2019 13:30 WBC Latest Ref Range: 4.0 - 11.0 K/uL 4.3 RBC COUNT Latest Ref Range: 3.70 - 5.20 M/uL 2.70 (L) Hemoglobin Latest Ref Range: 11.5 - 16.0 g/dL 8.8 (L) Hematocrit Latest Ref Range: 34.0 - 47.0 % 25.9 (L) MCV Latest Ref Range: 83.0 - 101.0 fL 95.9 MCH Latest Ref Range: 28.0 - 35.0 pg 32.6 MCHC Latest Ref Range: 32.0 - 36.0 g/dL 34.0 RDW-CV Latest Ref Range: <15.0 % 19.6 (H) RDW-SD Latest Ref Range: 35.1 - 46.3 fL 67.0 (H) Platelet Count Latest Ref Range: 140 - 440 K/uL 37 (L) MPV Latest Ref Range: 6.5 - 12.4 fL 9.3 % nRBC Latest Ref Range: 0 - 2 per 100 WBCs 0 Absolute nRBC Latest Ref Range: 0.00 - 0.01 K/uL 0.00 Absolute Neutrophils Latest Ref Range: 1.80 - 8.50 K/uL 3.56 Absolute Lymphocytes Latest Ref Range: 0.60 - 3.20 K/uL 0.33 (L) Absolute Monocytes Latest Ref Range: 0.00 - 1.00 K/uL 0.38 Absolute Eosinophils Latest Ref Range: 0.00 - 0.40 K/uL 0.00 Absolute Basophils Latest Ref Range: 0.00 - 0.10 K/uL 0.00 Absolute Immature Granulocytes Latest Ref Range: 0.00 - 0.03 K/uL 0.02 % Neutrophils Latest Ref Range: 45.0 - 82.0 % 82.9 (H) % Lymphocytes Latest Ref Range: 20.0 - 45.0 % 7.7 (L) % Monocytes Latest Ref Range: 4.0 - 12.0 % 8.9 % Eosinophils Latest Ref Range: 0.0 - 5.0 % 0.0 % Basophils Latest Ref Range: 0.0 - 1.0 % 0.0 % Immature Granulocytes Latest Ref Range: 0.0 - 0.4 % 0.5 (H) Na Latest Ref Range: 136 - 145 mmol/L 135 (L) K Latest Ref Range: 3.4 - 5.1 mmol/L 3.0 (L) Chloride Latest Ref Range: 98 - 107 mmol/L 101 Carbon dioxide Latest Ref Range: 20 - 31 mmol/L 22 Anion Gap Latest Ref Range: 3 - 16 mmol/L 12 Glucose Latest Ref Range: 60 - 106 mg/dL 113 (H) BUN Latest Ref Range: 9 - 23 mg/dL 22 Creatinine Latest Ref Range: 0.55 - 1.02 mg/dL 1.08 (H) BUN/Creatinine Ratio Unknown 20.4 Albumin Latest Ref Range: 3.2 - 4.8 g/dL 4.6 Albumin/Globulin Ratio Latest Ref Range: 0.8 - 1.9 1.8 Total Protein Latest Ref Range: 5.7 - 8.2 g/dL 7.1 EGFR IF NOT Latest Ref Range: >=60 mL/min/1.73m2 50 (L) Calcium Latest Ref Range: 8.7 - 10.4 mg/dL 9.7 ALK PHOS Latest Ref Range: 46 - 116 U/L 126 (H) ALT (SGPT) (REF) Latest Ref Range: 10 - 49 U/L 24 AST (SGOT) (REF) Latest Ref Range: 0 - 34 U/L 28 Bilirubin Total (Calculated) Latest Ref Range: 0.3 - 1.2 mg/dL 0.5 Globulin Latest Ref Range: 2.1 - 3.8 g/dL 2.5 UNENHANCED AND ENHANCED BRAIN MRI 04/14/2019 2:52 PM CLINICAL HISTORY: Lung cancer, follow-up abnormal MRI with possible metastases COMPARISON: MRI March 14 and November 26 TECHNIQUE: The following 3T MR sequences of the brain were obtained: 1. Axial, coronal and sagittal 3-D T1. 2. Axial T2, FLAIR, SWI, DWI and ADC. 3. Following the uneventful intravenous administration of ?5 mL Gadavist, axial, sagittal and coronal 3-D T1 sequences were obtained. FINDINGS: Previously described enhancing foci in the occipital regions are better demonstrated to reflect serpiginous, small caliber extra-axial cortical vessels. There is minimal stable T2/FLAIR hyperintensity involving the adjacent occipital lobe parenchyma, without parenchymal enhancement or mass effect. Few tiny T2/FLAIR hyperintense foci are again scattered about the frontoparietal cerebral white matter, and are stable in size and number without associated enhancement. There is minimal stable hyperintensity of the periventricular white matter. There is a stable benign developmental venous anomaly in the left cerebellar hemisphere. The ventricles, brainstem and cerebellum otherwise appear normal. There is no abnormal diffusion restriction, evidence of intracranial hemorrhage or extra-axial fluid collection/mass. Mild mucous membrane thickening persists within bilateral ethmoid air cells. Fluid persists within the inferior left mastoid air cells. The orbits, sellar region, right mastoid air cells, basilar cisterns and osseous structures are unremarkable. Asymmetric smaller caliber of the imaged distal right vertebral artery is again evident, potentially reflecting a developmental variant. Major intracranial vessels and dural sinuses otherwise appear patent and grossly unremarkable. IMPRESSION - 1. NO EVIDENCE OF INTRACRANIAL METASTATIC DISEASE. ENHANCEMENT DESCRIBED IN THE OCCIPITAL REGIONS ON PREVIOUS IMAGING CORRESPONDS WITH SERPIGINOUS EXTRA-AXIAL VESSELS. MINIMAL T2/FLAIR HYPERINTENSITY OF THE ADJACENT OCCIPITAL PARENCHYMA IS UNCHANGED AND MAY REFLECT ASSOCIATED GLIOSIS. 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 2. SIMILAR TINY, NON-ENHANCING T2/FLAIR HYPERINTENSE FOCI IN THE FRONTOPARIETAL WHITE MATTER, FAVORING CHRONIC, MICROVASCULAR ISCHEMIC GLIOSIS. 3. SIMILAR MILD ETHMOID SINUS AND LEFT MASTOID DISEASE. Dictated and Signed by: Lucio Her MD Electronically signed: 04/14/2019 3:43 PM Pharmacovigilance: Palliative Care: Patient's Medications New Prescriptions FENTANYL (DURAGESIC) 50 MCG/HR Place 1 patch onto the skin every 72 hours. HYDROMORPHONE (DILAUDID) 2 MG TABLET Take 1 tablet by mouth every 3 hours as needed for Pain. Modified Medications No medications on file Discontinued Medications FENTANYL (DURAGESIC) 25 MCG/HR Place 1 patch onto the skin every 72 hours. HYDROCODONE-ACETAMINOPHEN (NORCO) 10-325 MG PER TABLET Take 1-2 tablets by mouth every 6 hours as needed for Pain for up to 30 days. Procedure: Day 1, Cycle 4 (8-day cycle) Completed; Released on 04/22/2019; Originally planned for 04/22/2019 Other heparin 100 units/mL flush injection 500 Units (Discontinued - Patient Discharge) 500 Units (5 mL), Intracatheter, PRN, Line Care, Starting 04/22/19 at 1424 OrderHistor y sodium chloride 0.9% (NS) infusion at 500 mL/hr, Intravenous, ONCE, 04/22/19 at 1445, For 1 dose 1000 cc ns iv over 2 hours. I Boubacar Mata MD Portions of this chart may have been created with [employer] voice recognition software. Occasi onal wrong-word or sound-alike substitutions may have occurred due to the inherent tripathi itations of voice recognition software. Please read the chart carefully and recognize, using context, where these substitutions have occurred.- documented in this encounter Miscellaneous Notes Assessment & Plan Note - Boubacar Mata MD - 04/26/2019 3:23 PM PDTAssociated Prob kati(s): Lung cancer (HCC)Sussy Allred returned to clinic on 04/22/2019 alone for follow-up of her Stage IIIA non-small cell lung cancer, adenocarcinoma, status post left upper lobe l obectomy followed by concurrent thoracic irradiation with carboplatin/pemetrexed chemotherap y. Review of systems is positive for odynophagia, unrelieved by topical fentanyl 25 mcg/hr. Clinical exam is notable for 3.8 kg weight loss. Laboratory exam is notable for Grade 2 anemia, and grade 3 thrombocytopenia. Assessment; odynophagia and myelosuppression following combined modality adjuvant chemoradi ation for Stage IIIA lung cancer. Plan; boost topical fentanyl to 50 mcg/hr. Take hydromorphone 2 mg every 3 hours as needed for breakthrough pain. Give 1000 cc NS iv daily x 4 days. Clinial and laboratory follow up on April 28, 2019. documented in t his encounter Plan of [...] | | | | | [place] [address] | | | | | | [phone] | | | | | | | | +--------+ + + + + documented as of this encounter Procedures + +--------+ + + + | Procedure Name | Priori | Date/Time | Associated Diagnosis | Comments | | | ty | | | | + +--------+ + + + | CBC WITH | STAT | 04/22/2019 | Acute respiratory | Results for this | | DIFFERENTIAL | | 1:30 PM | distress syndrome | procedure are in the | | | | PDT | (ARDS) (HCC) | results section. | | | | | Malignant neoplasm | | | | | | of upper lobe of | | | | | | left lung (HCC) | | | | | | Postoperative anemia | | | | | | due to acute blood | | | | | | loss | | + +--------+ + + + | COMPREHENSIVE | STAT | 04/22/2019 | Acute respiratory | Results for this | | METABOLIC PANEL | | 1:30 PM | distress syndrome | procedure are in the | | | | PDT | (ARDS) (HCC) | results section. | | | | | Malignant neoplasm | | | | | | of upper lobe of | | | | | | left lung (HCC) | | | | | | Postoperative anemia | | | | | | due to acute blood | | | | | | loss | | + +--------+ + + + documented in this encounter Results Comprehensive Metabolic Panel (04/22/2019 1:30 PM PDT) + + + + + [...] + + + + | K | 3.0 (L) | 3.4 - 5.1 | [facility] | [...] + + + + | CO2 | 22 | 20 - 31 mmol/L | [facility] | | | | | | [facility] | | [facility] | | | | [facility] | | | | | | [facility]ATORY | | + + + + + + | Anion Gap | 12 | 3 - 16 mmol/L | [facility] | | | | | | [facility] | | | | [facility] | [facility] | | | | [facility] - | | | | | | [facility]ATORY | | + + + + + + | Glucose | 113 (H) | 60 - 106 mg/dL | [facility] | | | | | | [facility] | | | | | | [facility] | | | | | [facility] - | | | | | | [facility]ATORY | | + + + + + + | BUN | 22 | 9 - 23 mg/dL | [facility] | | | | | [facility] | | | [facility] | | | | | | [facility] | | + + + + + + | Creatinine | 1.08 (H) | 0.55 - 1.02 | [facility] | | | | | mg/dL | [facility] | | | | | | [facility] | | | | | | [facility] - | | | | | | LABORATORY | | + + + + + + | eGFR, | 50 (L)Comment: | >=60 | [facility] | | | non- | GLOMERULAR FILTRATION | mL/min/1.73m2 | [facility] | | | [place] | RATE,ESTIMATED | | MEDICAL | | | | mL/min/1.93m5Munh than | | CENTER - | | [...] + + + + | Albumin | 4.6 | 3.2 - 4.8 g/dL | [facility] | | | | | | [facility] [...] + + + + | Total | 7.1 | 5.7 - 8.2 g/dL | [facility] | | | Protein | | | [facility] | | | | | | [facility] | | | | | | [facility] - | | | | | | LABORATORY | | + + + + + + | AST | 28 | 0 - 34 U/L | [facility] | | | | | | [facility] | | | | | | [facility] | | | | | | [facility] - | | | | | | LABORATORY | | + + + + + + | ALT | 24 | 10 - 49 U/L | [facility] | | | | | | [facility] | | | | | | [facility] | | | | | | [facility] - | | | | | | LABORATORY | | + + + + + + | Alkaline | 126 (H) | 46 - 116 U/L | [facility] [...] + + + + | Albumin/Sophia | 1.8 | 0.8 - 1.9 | [facility] | | | bulin Ratio | | | [facility] | | | | | | [facility] | | | | | | [facility] - | | | | | | LABORATORY | | + + + + + + | BUN/Creatin | 20.4 | | [facility] | | | ine Ratio | | | [facility] | | | | | | MEDICAL [...] + + + + + | [facility] | [address] | [place] | [phone] | | [facility] | | [address] | | | - LABORATORY | | | | + + + + + CBC with Differential (04/22/2019 1:30 PM PDT) + + + + + + | Component | Value | Ref Range | Performed | Pathologist | | | | | At | Signature | + + + + + + | White Blood | 4.3 | 4.0 - 11.0 K/uL | [facility] | | | Cells | | | [facility] | | | | | | [facility] | | | | | | [facility] - | | | | | | LABORATORY | | + + + + + + | Red Blood | 2.70 (L) | 3.70 - 5.20 | [facility] | | | Cells | | M/uL | [facility] | | | | [...] + + + + | Hematocrit | 25.9 (L) | 34.0 - 47.0 % | [facility] | | | | | | [facility] | | | | | | [facility] | | | | | | [facility] - | | | | | | LABORATORY | | + + + + + + | MCV | 95.9 | 83.0 - 101.0 fL | [facility] | | | | | | [facility] | | | | | | [facility] | | | | | | [facility] - | | | | | | LABORATORY | | + + + + + + | MCH | 32.6 | 28.0 - 35.0 pg | [facility] | | | | | | [facility] | | | | | | [facility] | | | | | | [facility] - | | | | | | LABORATORY | | + + + + + + | MCHC | 34.0 | 32.0 - 36.0 | [facility] | | | | | g/dL | [facility] | | | | | | [facility] | | | | | | [facility] - | | | | | | LABORATORY | | + + + + + + | RDW-CV | 19.6 (H) | <15.0 % | [facility] | | | | | | [facility] | | | [facility] | | [facility] | | | | | | [facility] - | | | | | | LABORATORY | | + + + + + + | RDW-SD | 67.0 (H) | 35.1 - 46.3 fL | [facility] | | | | | | [facility] | | | | | | [facility] | | | | | | [facility] - | | | | | | LABORATORY | | + + + + + + | Platelet | 37 (L) | 140 - 440 K/uL | [facility] | | | Count | | | [facility] | | | | | | [facility] | | | | | | [facility]ENTER - | | | | | | LABORATORY | | + + + + + + | MPV | 9.3 | 6.5 - 12.4 fL | [facility] | | | | | | [facility] | | | | | | [facility] | | | | | | [facility] - | | | | | | LABORATORY | | + + + + + + | % | 82.9 (H) | 45.0 - 82.0 % | [facility] | | | Neutrophils | | | [facility] | | | | | | [facility] | | | | | | CENTER - | | | | | | LABORATORY | | + + + + + + | % | 7.7 (L) | 20.0 - 45.0 % | [facility] | | | Lymphocytes | | | [facility] | | | | | | [facility] | | | | | | CENTER - | | | | | | LABORATORY | | + + + + + + | % Monocytes | 8.9 | 4.0 - 12.0 % | [facility] [...] + + + | % Immature | 0.5 (H)Comment: | 0.0 - 0.4 % | [...] + + + + | Absolute | 3.56 | 1.80 - 8.50 | [facility] | | | Neutrophils | | K/uL | [facility] | | | | | | [facility]ICAL | | | | | | CENTER - | | | | | | LABORATORY | | + + + + + + | Absolute | 0.33 (L) | 0.60 - 3.20 | [facility] | | | Lymphocytes | | K/uL | [facility] | | | | | | [facility]ICAL | | | | | | CENTER - | | | | | | LABORATORY | | + + + + + + | Absolute | 0.38 | 0.00 - 1.00 | [facility] | [...] + + + + + | [facility] | [address] | [place] | [phone] | | [facility] | | [address] | | | - LABORATORY | | | | + + + + + documented in this encounter Visit Diagnoses + + | Diagnosis | + + | Acute respiratory distress syndrome (ARDS) (HCC) - Primary Other pulmonary | | insufficiency, not elsewhere classified, following trauma and surgery | + + | Malignant neoplasm of upper lobe of left lung (HCC) | + + | Postoperative anemia due to acute blood loss Acute posthemorrhagic anemia | + + | Acute post-operative pain | + + | Hypophosphatemia Disorders of phosphorus metabolism | + + | Hypothyroidism, unspecified type | + + | Neoplasm related pain Neoplasm related pain (acute) (chronic) | + + documented in this encounter
--- OUTSIDE RECORDS SUMMARY | ~2020-03-30 | XMS | Encounter Summary ---
Demographics + + + | Address | [address] | | | [place] [address] | + + + | Home Phone [...] Author + + + | Author | [facility] | + + + | Organization | [facility] | + + + | Address | Unknown | + + + | Phone | Unavailable | + + + Support + + +---------+ + | Name | Relationship | Address | Phone | + + +---------+ + | Laura Allred | ECON | Unknown | | + + +---------+ + Care Team Providers + +------+ + | Care Election Watcher Name | Role | Phone | + [...] 2019 | erpretation | Lab at [facility] [address] | | (Primary Dx) | | | | [address] | | | | | | [facility] | | | | | | [place], [place] | | | | | | [address] | | | | | | [phone] | | | +--------+ + + + [...] | | | | | | [place] [address] | | | | | | [phone] | | | | | | | | +--------+---------+ + + + | 04/30/ | Office | Otolaryngology | Augsutine Nolan | | | 2019 | Visit | | MD Debbie [address] | | | | | | [address] | | | | | | [place] | | | | | | [address] | | | | | | [phone] | | | | | | | | +--------+---------+ + + + documented as of this encounter Procedures + +--------+ + + + | Procedure Name | Priori | Date/Time | Associated Diagnosis | Comments | | | ty | | | | + +--------+ + + + | [place] DIFFUSING | Routin | 12/02/2018 | Dyspnea on | | | CAPACITY | e | 3:55 PM | exertion | | | | | PDT | | | + +--------+ + + + | IL SPIROMETRY TEST | Routin | 12/02/2018 | [...]
--- OUTSIDE RECORDS SUMMARY | ~2020-03-30 | XMS | Encounter Summary ---
Demographics + + + | Address | [address] | | | [place] [address] | + + + | Home Phone | | + + + | Preferred Language | Unknown | + + + | Marital Status | Single | + + + | Orthodox Affiliation | Unknown | + + + | Race | Unknown | + + + | Ethnic Group | Unknown | + + + Author + + + | Author | [facility] | | | and Jakobana | + + + | Organization | [facility] | | | and Jakobana [...] Team Providers + +------+ + | Care Multi Punch Operator Name | Role | Phone | + +------+ + | Lauryn Stuart PA-C | PCP | | + +------+ + Reason for Visit Diagnostic/Screening (Routine) +--------+--------+ + + + + | Status | Reason | Specialty | Diagnoses / | Referred By | Referred To | | | | | Procedures | Contact | Contact | +--------+--------+ + + + + | Closed | | Radiology | Diagnoses | | [facility] | | | | | Malignant | [place], | [address] | | | | | neoplasm of | Boubacar Daniels, | Miriam Pineda, | | | | | hilus of | MD [address] | [place] | | | | | lung, | [address] | [address] | | | | | unspecified | [address] | Phone: | | | | | laterality | [place], | [phone] | | | | | Procedures | [place] [address] | Fax: | | | | | [place] SNIFF | Phone: | [phone] | | | | | TEST | [phone] | | | | | | | Fax: | | | | | | | [phone] | | +--------+--------+ + + + + Encounter Details +--------+ + + + + | Date | Type | Department | Care Team | Description | +--------+ + + + + | 06/11/ | Hospital | [facility] | [place], | Malignant neoplasm | | 2019 | Encounter | MED CTR XRAY [address] | Boubacar Daniels MD [address] | of hilus of lung, | | | | [address] [place] | [address] | unspecified | | | | [place] [address] | [address] [place], [place] | laterality (HCC) | | | | [phone] | [address] | | | | | | | | | | | | [facility] | | +--------+ + + + + [...] HYDROmorphone | Take 1 tablet by | 60 | 0 | 05/20/20 | | | (DILAUDID) 2 mg | [...] [place] | | | | | | [place] [address] | | | | | | [phone] | | | | | | | | +--------+ + + + + documented as of this encounter Procedures + +--------+ + + + | Procedure Name | Priori | Date/Time | Associated Diagnosis | Comments | | | ty | | | | + +--------+ + + + | FL SNIFF TEST | Routin | 06/11/2019 | Malignant neoplasm | Results for this | | | e | 9:00 AM | of hilus of lung, | procedure are in the | | | | PDT | unspecified | results section. | | | | | laterality (HCC) | | + +--------+ + + + documented in this encounter Results FL Sniff Test (06/11/2019 9:00 AM PDT) + + | Specimen | + + | | + + + + + | Impressions | Performed At | + + + | Normal sniff test with no evidence for diaphragmatic paralysis. | [facility] | | Dictated and Signed by: Ravi Kraft MD Electronically signed: | | | 06/11/2019 9:19 AM | | + + + + + + | Narrative | Performed At | + + + | FL SNIFF TEST 06/11/2019 8:49 AM HISTORY: Lung cancer, | [facility] | | pneumonectomy, dyspnea. COMPARISON: Multiple priors. PROTOCOL: | | | With the patient in the upright and supine positions, fluoroscopic | | | evaluation of the hemidiaphragms was performed with inspiratory and | | | expiratory motions. FINDINGS: There is mild tenting of the left | | | hemidiaphragm. Normal motion is seen of the bilateral hemidiaphragms | | | during inspiration, expiration, and sniffing maneuvers in the upright | | | and supine positions. | | + + + + + | Procedure Note | + + | Cristhian, Rad Results In - 06/11/2019 9:22 AM PDT FL SNIFF TEST 06/11/2019 8:49 AM | | | | HISTORY: Lung cancer, pneumonectomy, dyspnea. | | | | COMPARISON: Multiple priors. | | | | PROTOCOL: With the patient in the upright and supine positions, fluoroscopic | | evaluation of the hemidiaphragms was performed with inspiratory and expiratory | | motions. | | | | FINDINGS: | | There is mild tenting of the left hemidiaphragm. Normal motion is seen of the | | bilateral hemidiaphragms during inspiration, expiration, and sniffing maneuvers | | in the upright and supine positions. | | | | IMPRESSION: | | Normal sniff test with no evidence for diaphragmatic paralysis. | | | | Dictated and Signed by: Ravi Kraft MD | | Electronically signed: 06/11/2019 9:19 AM | + + + +---------+ + [...]
--- OUTSIDE RECORDS SUMMARY | ~2020-03-30 | XMS | Encounter Summary ---
Demographics + + + | Address | [address] | | | [place] [address] | + + + | Home Phone | | + + + | Preferred Language | Unknown | + + + | Marital Status | Single | + + + | Shinto Affiliation | Unknown | + + + | Race | Unknown | + + + | Ethnic Group | Unknown | + + + Author + + + | Author | [facility] | | | and Jakobana | + + + | Organization | [facility] | | | and [...] Team Providers + +------+ + | Care Forestry Foreman Name | Role | Phone | + +------+ + | Lauryn Stuart PA-C | PCP | | + +------+ + Reason for Visit +--------+--------+ + | Reason | Onset | Comments | | | Date | | +--------+--------+ + | Other | 04/01/ | | | | 2019 | | +--------+--------+ + Encounter Details +--------+ + + + + | Date | Type | Department | Care Team | Description | +--------+ + + + + | 04/01/ | Telephone | [facility] | [place], | Other | | 2019 | | MED CTR MEDICAL | Boubacar Daniels MD [address] | | | | | [facility] [address] | [address] [facility] [place] | | | | | [address] [place] | [address] [place] | | | | | [place] [address] | [address] | | | | | [phone] | | | +--------+ + + + [...] Telephone Encounter - Allie Gallagher RN - 04/01/2019 9:26 AM PDTKim calls to confirm erika t Dr. Fritz is aware that patient is taking benzodiazepines along with the tylenol #3 that wa s ordered. Also that she has hydrocodone ordered. I let her know that Dr. Fritz is aware an d patient is not longer taking hydrocodone as she is unable to swallow this medication. Elec tronically signed by Allie Gallagher RN at 04/01/2019 9:29 AM PDTTelephone Encounter - Yaneth Man - 04/01/2019 9:07 AM Malik needs to talk to someone about a "prescription o verride". Please call her. documented in this encounter Plan of Treatment [...] | | | | | [place] [address] | | | | | | [phone] | | | | | | | | +--------+ + + + + documented as of this encounter Visit Diagnoses Not on filedocumented in this encounter
--- OUTSIDE RECORDS SUMMARY | ~2020-03-30 | XMS | Encounter Summary ---
Demographics + + + | Address | [address] | | | [place] [address] | + + + | Home Phone [...] Author + + + | Author | [facility] | + + + | Organization | [facility] | + + + | Address | Unknown | + + + | Phone | Unavailable | + + + Support + + +---------+ + | Name | Relationship | Address | Phone | + + +---------+ + | Laura Allred | ECON | Unknown | | + + +---------+ + Care Team Providers + +------+ + | Care Meat Boner And Slicer Name | Role | Phone | + [...] 12/07/ | Anesthesia | 6A Intra Op [address] | Erik Erazo MD | | | 2019 | Event | [address] | [address] | | | | | [facility] | [facility], | | | | | Hospital Admitting | [place] [address] | | | | | Desk Located on the | [phone] | | | | | 9th floor | | | | | | [place], [place] | [place] Ceja [place] | | | | | [address] | [address] | | | | | | [facility], | | | | | | [place] [address] | | | | | | [phone] | | | | | | | [...] + + + | Epidur | 12/04/18; 1939; Manda Hamm MD ; | 12/04/18 194 by | 12/09/18 1446 by | | al | Thoracic; 12/09/18; 1446 | Christiane Givens RN | Kiya Santso | | | | | MD Martín,PhD [...] 04/30/ | Office | Speech Therapy | aBrbra Ramirez SLP | | | 2019 | Visit | | [address] | | | | | | [place] | | | | | | [place] [address] | | | | | | [phone] | | | | | | | | +--------+---------+ + + + | 04/30/ | Office | Otolaryngology | Augustine Nolan | | | 2019 | Visit | | MD Debbie [address] | | | | | | [address] | | | | | | [place] | | | | | | [address] | | | | | | [phone] | | | | | | | | +--------+---------+ + + + documented as of this encounter Procedures + +--------+ + + + | Procedure Name | Priori | Date/Time | Associated Diagnosis | Comments | | | ty | | | | + +--------+ + + + | ANE ETT | Routin | 12/07/2018 | | Results for this | | | e | 3:11 PM | | procedure are in the | | | | PDT | | results section. | + +--------+ + + + documented in this encounter Results ELMA ETT (12/07/2018 3:11 PM PDT) + + + | Narrative | Performed At | + + + | Keena Hsieh CRNA 12/07/2018 3:16 PM [employer] - | | | ETT Time of Intubation: 12/07/2018 3:03 PM [...] equal NARRATIVE Attending physically present Authorized by TY, | | | ERIK Performed by KEENA HSIEH Procedure Comments: Very | | | limited mouth opening, unable to insert bougie into trachea on first | | | attempt. Slightly better view (almost Grade II with additional | | | anesthetic, although still has limited mouth opening) on second | | | attempt with styletted ETT | | + + + documented in this encounter Visit Diagnoses Not on filedocumented in this encounter Administered Medications + +--------+ + +------+------+ | Medication Order | MAR | Action | Dose | Rate | Site | | | Action | Date | | | | + +--------+ + +------+------+ | ceFAZolin (ANCEF) injection | Given | 12/08/19 | 2,000 mg | | | | INTRAPROCEDURE PRN, Starting Sat | | 19 3:05 | | | | | 12/07/18 at 1505, Until Sat | | PM PDT | | | | | 12/07/18 at 1536 | | | | | | + +--------+ + +------+------+ +---+---+ | | | +---+---+ + +-------+ +--------+---+---+ | fentaNYL (SUBLIMAZE) injection | Given | 12/08/19 | 50 mcg | | | | INTRAPROCEDURE PRN, Starting Sat | | 19 3:25 | | | | | 12/07/18 at 1500, Until Sat | | PM PDT | | | | | 12/07/18 at 1536 | | | | | | + +-------+ +--------+---+---+ +-------+ +--------+---+---+ | Given | 12/08/19 | 50 mcg | | | | | 19 3:00 | | | | | | PM PDT | | | | +-------+ +--------+---+---+ +---+---+ | | | +---+---+ + + + +---+---+---+ | lactated ringers IV | given by | 12/08/19 | | | | | INTRAPROCEDURE CONTINUOUS PRN, | | 19 3:32 | | | | | Starting 12/07/18 at 1438, | anesthes | PM PDT | | | | | Until 12/07/18 at 1536 | iology | | | | | + + + +---+---+---+ +---------+ +---+---+---+ | New Bag | 12/08/19 | | | | | | 19 2:38 | | | | | | PM PDT | | | | +---------+ +---+---+---+ +---+---+ | | | +---+---+ + +-------+ +---------+---+---+ | PHENYLEPHrine 100 mcg/mL IV | Given | 12/08/19 | 100 mcg | | | | syringe INTRAPROCEDURE PRN, | | 19 3:29 | | | | | Starting 12/07/18 at 1506, | | PM PDT | | | | | Until 12/07/18 at 1536 | | | | | | + +-------+ +---------+---+---+ +-------+ +---------+---+---+ | Given | 12/08/19 | 100 mcg | | | | | 19 3:25 | | | | | | PM PDT | | | | +-------+ +---------+---+---+ | Given | 12/08/19 | 200 mcg | | | | | 19 3:17 | | | | | | PM PDT | | | | +-------+ +---------+---+---+ +---+---+ | | | +---+---+ + +-------+ +-------+---+---+ | propofol (DIPRIVAN) injection | Given | 12/08/19 | 40 mg | | | | INTRAPROCEDURE PRN, Starting Sat | | 19 3:30 | | | | | 12/07/18 at 1501, Until Sat | | PM PDT | | | | | 12/07/18 at 1536 | | | | | | + +-------+ +-------+---+---+ +-------+ +-------+---+---+ | Given | 12/08/19 | 40 mg | | | | | 19 3:02 | | | | | | PM PDT | | | | +-------+ +-------+---+---+ | Given | 12/08/19 | 80 mg | | | | | 19 3:01 | | | | | | PM PDT | | | | +-------+ +-------+---+---+ +---+---+ | | | +---+---+ + +-------+ +-------+---+---+ | succinylcholine (ANECTINE) | Given | 12/08/19 | 60 mg | | | | injection INTRAPROCEDURE PRN, | | 19 3:01 | | | | | Starting 12/07/18 at 1501, | | PM PDT | | | | | Until 12/07/18 at 1536 | | | | | | + +-------+ +-------+---+---+ +---+---+ | | | +---+---+ documented in this encounter
--- OUTSIDE RECORDS SUMMARY | ~2020-03-30 | XMS | Encounter Summary ---
Demographics + + + | Address | [address] | | | [place] [address] | + + + | Home Phone [...] Team Providers + +------+ + | Care Sequins Stringer Name | Role | Phone | + +------+ + | Lauryn Stuart | PCP | | + +------+ + Reason for Visit + + + | Reason | Comments | + + + | Thoracic Oncology | | | Conference | | + + + Encounter Details +--------+ + + + + | Date | Type | Department | Care Team | Description | +--------+ + + + + | 12/24/ | Documentati | Cardiothoracic | Manoj Kumar MD | Thoracic Oncology | | 2019 | on | Surgery at [facility] | [address] | Conference | | | | [address] | [address] | | | | | Physician's | [place], [place] | | | | | [address], 2nd floor | [address] | | | | | [place], [place] | [phone] | | | | | [address] | | | | | | [phone] | | | +--------+ + + + [...] | | | | | [address] [place], | | | | | | [place] [address] | | | | | | [phone] | | | | | | | | +--------+---------+ + + + | 04/30/ | Office | Otolaryngology | Augustine Nolan | | | 2020 | Visit | | MD Debbie [address] | | | | | | [address] | | | | | | [place] | | | | | | [address] | | | | | | [phone] | | | | | | | | +--------+---------+ + + + documented as of this encounter Results OUTSIDE CHEST - READ REQUEST (10/11/2018 12:00 AM PST) + + | Specimen | + + | | + + + + + | Narrative | Performed At | + + + | EXAM: [facility] professional interpretation of outside study: OUTSIDE | [facility] | | CHEST READ DATE OF IMAGE ACQUISITION: 10/11/2018 DATE OF [facility] | RADIOLOGY VOICE | | INTERPRETATION: 12/25/2018 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 72 mL of Isovue-370 was administered via power injector via | | | a 22-gauge right antecubital peripheral IV. Images reviewed in axial, | | | sagittal and soft tissue planes. Images reviewed in bone, lung and | | | soft tissue window. Thick section maximal intensity projection (MIP) | | | images were created on a separate workstation. FINDINGS: | | | Within the apical right upper lobe and there is a 22 x 25 x 22 mm | | | mixed groundglass and solid pulmonary nodule (axial lung 54, coronal | | | 71). It contains a 6 x 12 x 5 mm solid component. Azygos lobe is | | | incidentally noted, with tethering of the azygos fissure. The solid | | | component of this lesion demonstrated faint radiotracer uptake on | | | recent PET/CT. Within the apical posterior left upper lobe there | | | is a 20 x 18 x 23 mm solid pulmonary nodule with irregular/spiculated | | | borders and shape. There is a possible area of cavitation along its | | | inferior margin (axial lung 65, sagittal 57). This lesion demonstrated | | | avid radiotracer uptake on PET/CT of 10/23/2018 There is mild tethering | | | of the left major fissure by this lesion, which directly abuts the | | | left major fissure and distorts its. No definite soft tissue extension | | | beyond/through the left major fissure. There is an adjacent 3 mm | | | satellite nodule versus lobulation (axial lung 66). More | | | inferiorly within the left upper lobe there is a groundglass nodule | | | measuring 5 mm (axial lung 78). Within the subpleural left lower lobe | | | there is a 2 x 3 x 5 mm pulmonary nodule (axial lung 162, sagittal | | | 24). Possible punctate left lower lobe pulmonary nodule (axial lung | | | 92). Punctate right upper lobe pulmonary nodule observed (axial lung | | | 70). A right lower lobe inferior accessory fissure is incidentally | | | noted (axial lung 135). A small amount of pericardial fluid surrounds | | | the right inferior pulmonary vein (axial soft tissue 117). There are | | | several peripherally enhancing centrally necrotic l aortopulmonary | | | window lymph nodes (axial soft tissue 81, 87). These lymph nodes | | | demonstrated avid radiotracer uptake on PET/CT of 10/23/2018. Additional | | | areas of asymmetric left hilar and infrahilar tissue does not meet | | | size criteria (axial soft tissue 92). Additional thoracic lymph nodes | | | do not meet size criteria for pathologic enlargement. No pleural | | | effusion or pneumothorax. The soft tissues are unremarkable. No | | | cardiac chamber enlargement. Trivial, likely physiologic pericardial | | | fluid. Visualized portions of the upper abdomen are unremarkable. | | | There is no acute fracture, malalignment or focal osseous destruction. | | | Chronic degenerative changes involving the superior surface of the | | | right first rib are observed with pseudoarthrosis between the inferior | | | clavicle and first rib (sagittal 115). IMPRESSION: 1. | | | Spiculated left upper lobe pulmonary nodule with necrotic | | | aortopulmonary window adenopathy, consistent with poorly | | | differentiated adenocarcinoma. 2. Mixed solid and subsolid right | | | upper lobe pulmonary nodule, likely additional separate synchronous | | | adenocarcinoma. Lack of FDG avidity is a known phenomenon with | | | adenocarcinoma lesions. I have personally reviewed the images and, | | | if necessary, edited the report. I agree with the report as now | | | presented. Final signature: Jennifer Haider MD 12/25/2018 5:50 PM | | | Preliminary: Nomi Burks MD Dictation initiated: Nomi | | | Faye Burks MD 12/25/2018 4:56 PM | | + + + + + | Procedure Note | + + | 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, Radiant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 - 12/25/2018 5:51 PM PDT EXAM: [facility] | | professional interpretation of outside study: OUTSIDE CHEST READ DATE OF IMAGE | | ACQUISITION: 10/11/2018DATE OF [facility] INTERPRETATION: 12/25/2018 HISTORY: Poorly | | differentiated invasive adenocarcinoma COMPARISON: Chest radiograph 10/09/2018, PET CT | | 10/23/2018 TECHNIQUE: Contrast-enhanced images of the chest were acquired. 72 mL of | | Isovue-370 was administered via power injector via a 22-gauge right antecubital | | peripheral IV. Images reviewed in axial, sagittal and soft tissue planes. Images | | reviewed in bone, lung and soft tissue window. Thick section maximal intensity | | projection (MIP) images were created on a separate workstation. FINDINGS: Within the | | apical right upper lobe and there is a 22 x 25 x 22 mm mixed groundglass and solid | | pulmonary nodule (axial lung 54, coronal 71). It contains a 6 x 12 x 5 mm solid | | component. Azygos lobe is incidentally noted, with tethering of the azygos fissure. The | | solid component of this lesion demonstrated faint radiotracer uptake on recent PET/CT. | | Within the apical posterior left upper lobe there is a 20 x 18 x 23 mm solid pulmonary | | nodule with irregular/spiculated borders and shape. There is a possible area of | | cavitation along its inferior margin (axial lung 65, sagittal 57). This lesion | | demonstrated avid radiotracer uptake on PET/CT of 10/23/2018 There is mild tethering of | | the left major fissure by this lesion, which directly abuts the left major fissure and | | distorts its. No definite soft tissue extension beyond/through the left major fissure. | | There is an adjacent 3 mm satellite nodule versus lobulation (axial lung 66). More | | inferiorly within the left upper lobe there is a groundglass nodule measuring 5 mm | | (axial lung 78). Within the subpleural left lower lobe there is a 2 x 3 x 5 mm pulmonary | | nodule (axial lung 162, sagittal 24). Possible punctate left lower lobe pulmonary | | nodule (axial lung 92). Punctate right upper lobe pulmonary nodule observed (axial lung | | 70). A right lower lobe inferior accessory fissure is incidentally noted (axial lung | | 135). A small amount of pericardial fluid surrounds the right inferior pulmonary vein | | (axial soft tissue 117). There are several peripherally enhancing centrally necrotic l | | aortopulmonary window lymph nodes (axial soft tissue 81, 87). These lymph nodes | | demonstrated avid radiotracer uptake on PET/CT of 10/23/2018. Additional areas of | | asymmetric left hilar and infrahilar tissue does not meet size criteria (axial soft | | tissue 92). Additional thoracic lymph nodes do not meet size criteria for pathologic | | enlargement. No pleural effusion or pneumothorax. The soft tissues are unremarkable. No | | cardiac chamber enlargement. Trivial, likely physiologic pericardial fluid. Visualized | | portions of the upper abdomen are unremarkable. There is no acute fracture, malalignment | | or focal osseous destruction. Chronic degenerative changes involving the superior | | surface of the right first rib are observed with pseudoarthrosis between the inferior | | clavicle and first rib (sagittal 115). IMPRESSION: 1. Spiculated left upper lobe | | pulmonary nodule with necrotic aortopulmonary window adenopathy, consistent with poorly | | differentiated adenocarcinoma. 2. Mixed solid and subsolid right upper lobe pulmonary | | nodule, likely additional separate synchronous adenocarcinoma. Lack of FDG avidity is a | | known phenomenon with adenocarcinoma lesions. I have personally reviewed the images and, | | if necessary, edited the report. I agree with the report as now presented. Final | | signature: Jennifer Haider MD 12/25/2018 5:50 PM Preliminary: Nomi Burks MD | | Dictation initiated: Nomi Burks MD 12/25/2018 4:56 PM | + + + +---------+ + [...]
--- OUTSIDE RECORDS SUMMARY | ~2020-03-30 | XMS | Encounter Summary ---
Demographics + + + | Address | [address] | | | [place] [address] | + + + | Home Phone [...] + + + | Author | [facility] | | | and Jakobana | + + + | Organization | [facility] | | | and Jakobana [...] Team Providers + +------+ + | Care Buckle Gluer Name | Role | Phone | + [...] | MED CTR EXTERNAL | MD [address] | | | | | IMAGING [address] | [address] | | | | | [address] [place] | [place] [address] | | | | | [place] [address] | | | | | | [phone] | | | +--------+ + + + [...] | | | | | [place] [address] | | | | | | [phone] | | | | | | | | +--------+ + + + + documented as of this encounter Procedures + +--------+ + + + | Procedure Name | Priori | Date/Time | Associated Diagnosis | Comments | | | ty | | | | + +--------+ + + + | XR CHEST 2 VIEWS | Routin | 12/14/2018 | | Results for this | | | e | 7:10 AM | | procedure are in the | | | | PDT | | results section. | + +--------+ + + + documented in this encounter Results XR Chest 2 Vws (12/14/2018 7:10 AM PDT) + + | [...]
--- OUTSIDE RECORDS SUMMARY | ~2020-03-30 | XMS | Encounter Summary ---
Demographics + + + | Address | [address] | | | [place] [address] | + + + | Home Phone [...] + | Author | [facility] | | | and Jakobana | + + + | Organization | [facility] | | | and [...] Team Providers + +------+ + | Care Land Agent Name | Role | Phone | [...] | | [address] | [place] [address] | | | | | [place] [address] | | | | | | [phone] | | | +--------+ + + + [...] | | | | | [place] [address] | | | | | | [phone] | | | | | | | [...]
--- OUTSIDE RECORDS SUMMARY | ~2020-03-30 | XMS | Encounter Summary ---
Demographics + + + | Address | [address] | | | [place] [address] | + + + | Home Phone [...] | Author | [facility] | | | and Jakobana | + + + | Organization | [facility] | | | and [...] Team Providers + +------+ + | Care Hydroelectric Machinery Mechanic Helper Name | Role | Phone | + +------+ + | Lauryn Stuart PA-C | PCP | | + +------+ + Reason for Visit + +--------+ + | Reason | Onset | Comments | | | Date | | + +--------+ + | Care Coordination | 04/11/ | | | | 2019 | | + +--------+ + Encounter Details +--------+ + + + + | Date | Type | Department | Care Team | Description | +--------+ + + + + | 04/11/ | Telephone | [facility] | Adolfo, | Care Coordination | | 2019 | | MED [facility] | Boubacar Daniels MD [address] | | | | | ONCOLOGY CLINIC [address] | [facility] | | | | | [address] [place] | [address] [place], [place] | | | | | [place] [address] | [id number] | | | | | [phone] | | | +--------+ + + + [...] this encounter Miscellaneous Notes Telephone Encounter - Perla Duenas RN - 04/11/2019 1:41 PM PDTPA's have been sent t rosa Hutton in authorizations, she states that she got an authorization from [facility], they need the [facility] pharmacist to call them to get the over-ride. She has contacted [facility] to notify them no further action should be required at this time. Electronic ally signed by Perla Duenas RN at 04/11/2019 1:43 PM PDTTelephone Encounter - Bailee Keita RN - 04/11/2019 12:14 PM PDTCall to Aki at pharmacy- she states that the Norc o that was prescribed yesterday is not being approved because of the other pain medications. The insurance is requiring a prior authorization at the phone number . Electr onically signed by Bailee Walker RN at 04/11/2019 12:17 PM PDTTelephone Encounter - Bassam Ramos - 04/11/2019 10:29 [address] [facility] / Lucas called, needs clarification on so me issues Please call [phone] Please ask for Aki doc umabbey in this encounter Plan of Treatment +--------+ [...] | | | | | | [place] [address] | | | | | | [phone] | | | | | | | | +--------+ + + + + documented as of this encounter Visit Diagnoses Not on filedocumented in this encounter"
--- OUTSIDE RECORDS SUMMARY | ~2020-03-30 | XMS | Encounter Summary ---
Demographics + + + | Address | [address] | | | [place] [address] | + + + | Home Phone | | + + + | Preferred Language | Unknown | + + + | Marital Status | Single | + + + | Temple Affiliation | NRP | + + + [...] Team Providers + +------+ + | Care Complaint Investigator Name | Role | Phone | + +------+ + | Lauryn Stuart | PCP | | + +------+ + Encounter Details +--------+---------+ + + + | Date | Type | Department | Care Team | Description | +--------+---------+ + + + | 10/08/ | Office | Preoperative | Sara Blanca, | Preoperative | | 2020 | Visit | Medicine Clinic at | FABRICATION WELDER [address] | examination (Primary | | | | 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 taking at least one walk daily, even around the block). This can help speed your surgery recovery. Surgery check-in location: Admitting - [facility] Surgery Check in Time: you will receive [...] ch as Uber/Lyft), or public transportation. An Uber/Lyft/driver retraining instructor does not count as the responsible adult [...] it is after office hours, call the [facility] boring mill set up operator at [phone] and ask them to page him or [...] LEFT MEDIALIZATION THYROPLASTY 10/09/2019 Proposed Procedure Location: [place] HISTORY OF PRESENT ILLNESS: Sussy Allred is [...] 11/19. Residual post-thoracotomy pain is managed with [place] and fentanyl patches. Pertinent medical conditions and/or [...] complications: none Functional Capacity: Low (1-4 mets) Fabrication Operator or current activity: Able to walk one [...] noted below no renal failure no dialysis Urology/Respiratory Care Assistant: S/p total hysterectomy no Urologic Conditions Endo: [...] Take 50 mcg by mouth before breakfast. multivit-min/iron/folic/rwf088 (HAIR, SKIN AND NAILS ADVANCED ORAL) Take [...] lymph node dissection, (left chest) 2019 at [facility] Family history reviewed / updated Family History [...] calculators: Postoperative Respiratory Failure Risk Calculator: [email or web address] [email or web address] 0.67 % ASSESSMENT and RECOMMENDATIONS: Perioperative risk [...] based on this patients comorbid conditions and tcd-ts-fusdfta care coordination needs Medication management recommendations: The [...] patient's care. MATTHEW Schofield [facility] [place] Building [address] [place] [address] [phone] (fax) documented in this encounter Plan of [...] | | | | | | [place] [address] | | | | | | [phone] | | | | | | | | +--------+---------+ + + + | 04/30/ | Office | Otolaryngology | Augustine Nolan | | | 2019 | Visit | | MD Debbie [address] | | | | | | [address] | | | | | | [place] | | | | | | [address] | | | | | | [phone] | | | | | | | | +--------+---------+ + + + documented as of this encounter Procedures + +--------+ + + + | Procedure Name | Priori | Date/Time | Associated Diagnosis | Comments | | | ty | | | | + +--------+ + + + | MT COLLECTION VENOUS | Routin | 10/08/2019 | [...] [facility] | [address] | [place] [address] | | | SERVICES, CORE | PARK [...] | | | LABORATORY | | | BRITISH | | | SERVICES, | | | [...] MDRD equation recommended by the National | [facility] | | Kidney Disease Education Program. Estimated [...] + + + + + | [facility] | [address] | [place] [address] | | | KOKI STUART | EULALIO [...]
--- OUTSIDE RECORDS SUMMARY | ~2020-03-30 | XMS | Encounter Summary ---
Demographics + + + | Address | [address] | | | [place] [address] | + + + | Home Phone [...] Author | [facility] | | | and Jakobana | + + + | Organization | [facility] | | | and Jakobana [...] Team Providers + +------+ + | Care Pallet Repairer Name | Role | Phone | [...] neoplasm of | Boubacar Daniels, | [address] | | | | | unspecified | MD [address] | [place], | | | | | part of | [facility] | [place] [address] | | | | | unspecified | [address] | Phone: | | | | | bronchus or | [place], | [phone] | | | | | lung (HCC) | [place] [address] | Fax: | | | | | Procedures | Phone: | [phone] | | | | | MD VITAMIN | [phone] | | | | | | B12 | Fax: | | | | | | INJECTION, | [phone] | | | | | | [address] MD | | | | | | | ONDANSETRON | | | | | | | ORAL MD | | | | | | | ORAL | | | | | | | DEXAMETHASON | | | | | | | E, .25 MG | | | | | | | MD INJ., | | | | | | | APREPITANT, | | | | | | | 1 MG MD | | | | | | | PEMETREXED | | | | | | | INJECTION, | | | | | | | 10 MG MD | | | | | | | CARBOPLATIN | | | | | | | INJECTION, | | | | | | | 50 MG MD | | | | | | | ADRENALIN | | | | | | | EPINEPHRINE | | | | | | | INJECT, .1 | | | | | | | MG MD | | | | | | | DIPHENHYDRAM | | | | | | | INE HCL | | | | | | | INJECTIO, 50 | | | | | | | MG MD | | | | | | | METHYLPREDNI | | | | | | | SOLONE | | | | | | | INJECTION, | | | | | | | 125 MG MD | | | | | | | ALBUTEROL | | | | | | | COMP CON, 1 | | | | | | | MG MD | | | | | | | ALBUTEROL | | | | | | | NON-COMP | | | | | | | CON, 1 MG | | | | | | | MD | | | | | | | INJECTION, | | | | | | | FAMOTIDINE, | | | | | | | 20 MG MD | | | | | | | NORMAL | | | | | | | SALINE | | | | | | | SOLUTION | | | | | | | INFUS, 500 | | | | | | | ML MD | | | | | | | NORMAL | | | | | | | SALINE | | | | | | | SOLUTION | | | | | | | INFUS, 250 | | | | | | | ML MD | | | | | | | STERILE | | | | | | | WATER/SALINE | | | | | | | , 10 ML MD | | | | | | | CHEMOTHER, | | | | | | | IV PUSH,EA | | | | | | | ADD DRUG MD | | | | | | | CHEMOTHER, | | | | | | | IV INFUSION, | | | | | | | 1 HR MD | | | | | | | CHEMOTHER, | | | | | | | IV INFUSION, | | | | | | | EA HR MD | | | | | | | CHEMOTHER,NO | | | | | | | N-HORMONE | | | | | | | ANTI-NEOPL, | | | | | | | SUB-Q/IM MD | | | | | | | CHEMOTHER | | | | | | | HORMON | | | | | | | ANTINEOPL | | | | | | | SUB-Q/IM MD | | | | | | | | | | | | | | PALONOSETRON | | | | | | | HCL, 25 MCG | | | +--------+--------+ + + + + Encounter Details +--------+ + + + + | Date | Type | Department | Care Team | Description | +--------+ + + + + | 04/07/ | Hospital | [facility] | Adolfo, | 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 | | | | INFUSION [address] [place] | left lung (HCC) | | | | [place], | [address] [place], [place] | (Primary Dx) | | | | [place] [address] | [address] | | | | | [phone] | | | +--------+ + + + [...] encounter Progress Notes Bailee Walker RN - 04/07/2019 11:09 AM PDTEnergy level: Increased fatigue over the w eekend, "I really thought I would feel better than this". Fever or chills: none Appetite: still struggling with swallowing. Nausea and/or vomiting: nausea and vomiting are intermittent, has been taking lorazepam and did provide some relief. Bowels: did have to take stool softener which helped in production of BM Numbness and tingling: fingers and toes seem to be tingling intermittently Bleeding or bruising: bruising noticed on arms due to IV starts. Karnofsky: 80 Nurses notes: Here for fluid infusion today with pain medication. States she was able to pi ck up pain patch and started this on Sunday04/04/19. She states that the pain patch was help ful, pain currently at 02/26. Swallowing still 05/29. documented in this encounter Plan of Treatment [...] | | | | | | [place] [address] | | | | | | [phone] | | | | | | | | +--------+ + + + + documented as of this encounter Procedures + +--------+ + + + | Procedure Name | Priori | Date/Time | Associated Diagnosis | Comments | | | ty | | | | + +--------+ + + + | IMAGING REPORT - | | 03/30/2019 | | Results for this | | EXTERNAL SCAN | | 12:00 AM | | procedure are in the | | | | PDT | | results section. | + +--------+ + + + | LABS - EXTERNAL SCAN | | 03/30/2019 | | Results for this | | | | 12:00 AM | | procedure are in the | | | | PDT | | results section. | + +--------+ + + + | ECG - EXTERNAL SCAN | | 03/30/2019 | | Results for this | | | | 12:00 AM | | procedure are in the | | | | PDT | | results section. | + +--------+ + + + documented in this encounter Results LABS - EXTERNAL SCAN (03/30/2019 12:00 AM PDT) + + + | Narrative | Performed At | + + + | Ordered by an | | | unspecified provider. | | + + + IMAGING REPORT - EXTERNAL SCAN (03/30/2019 12:00 AM PDT) + + + | Narrative | Performed At | + + + | Ordered by an | | | unspecified provider. | | + + + ECG - EXTERNAL SCAN (03/30/2019 12:00 AM PDT) + + + | Narrative | Performed At | + + + | Ordered by an | | | unspecified provider. | | + + + documented in [...] heparin 100 units/mL flush | Given | 04/07/20 | 500 | | | | injection 500 Units 500 Units (5 | | 19 1:08 | Units | | | | mL), Intracatheter, PRN, Line | | PM PDT | | | | | Care, Starting Sun04/07/19 at | | | | | | | 1100 | | | | | | + +--------+ +-------+------+------+ +---+---+ | | | +---+---+ + +-------+ +--------+---+---+ | HYDROmorphone (DILAUDID) | Given | 04/07/20 | 0.8 mg | | | | injection 0.4-0.8 mg 0.4-0.8 mg, | | 19 1:08 | | | | | Intravenous, EVERY 1 HOUR PRN, | | PM PDT | | | | | Pain, Starting Sun04/07/19 at | | | | | | | 1100 | | | | | | + +-------+ +--------+---+---+ +-------+ +--------+---+---+ | Given | 04/07/20 | 0.8 mg | | | | | 19 11:40 | | | | | | AM PDT | | | | +-------+ +--------+---+---+ +---+---+ | | | +---+---+ + +---------+ +---+-------+---+ | sodium chloride 0.9% (NS) | New Bag | 04/07/20 | | 500 | | | infusion at 500 mL/hr, | | 19 11:32 | | mL/hr | | | Intravenous, ONCE, 04/07/19 at | | AM PDT | | | | | 1130, For 1 dose, 1000 cc ns iv | | | | | | | over 2 hours., | | | | | | + +---------+ +---+-------+---+ +---+---+ | | | +---+---+ documented in this encounter
--- OUTSIDE RECORDS SUMMARY | ~2020-03-30 | XMS | Encounter Summary ---
Demographics + + + | Address | [address] | | | [place] [address] | + + + | Home Phone | | + + + | Preferred Language | Unknown | + + + | Marital Status | Single | + + + | Temple Affiliation | Unknown | + + + | Race | Unknown | + + + | Ethnic Group | Unknown | + + + Author + + + | Author | [facility] | | | and Jakobana | + + + | Organization | [facility] | | | and Jakobana [...] Team Providers + +------+ + | Care Adjunct Professor Name | Role | Phone | + +------+ + | Lauryn Stuart PA-C | PCP | | + +------+ + Encounter Details +--------+ + + + + | Date | Type | Department | Care Team | Description | +--------+ + + + + | 03/25/ | Telephone | [facility] | Fiona Anne | | | 2019 | | MED CTR RADIATION | MD Issa [address] | | | | | ONCOLOGY CLINIC [address] | [facility] ID | | | | | [address] | [address] | | | | | [place] [address] | | | | | | [phone] | | | +--------+ + + + [...] Telephone Encounter - Perla Duenas RN - 03/25/2019 2:28 PM PDTPatient reports havin g pain with swallowing, Dr. Anne requested that she have sucralfate in addition to her [facility] mouth wash, this has already been ordered, patient states that she knew nothing about th is prescription. It appears that Dr. Fritz ordered it on 03/21/19, but that it was sent to [facility]. Reviewed medication with patient all questions answered. Call placed to [facility] on [facility] per patient's request, and provided a verbal order with read back verification for sucralfate as ordered by Dr. Fritz to the pharmacist. They states that they will start working on it right now. Patient notified. Electronically s igned by Perla Duenas RN at 03/25/2019 2:34 PM PDTdocumented in this encounter Plan of [...] | | | | | [place] [address] | | | | | | [phone] | | | | | | | | +--------+ + + + + documented as of this encounter Visit Diagnoses Not on filedocumented in this encounter"
--- OUTSIDE RECORDS SUMMARY | ~2020-03-30 | XMS | Encounter Summary ---
Demographics + + + | Address | [address] | | | [place] [address] | + + + | Home Phone | | + + + | Preferred Language | Unknown | + + + | Marital Status | Single | + + + | Denominational Affiliation | NRP | + + + | Race | White | + + + | Ethnic Group | Not or | + + + Author + + + | Author | [facility] | + + + | Organization | [facility] | + + + | Address | Unknown | + + + | Phone | Unavailable | + + + Support + + +---------+ + | Name | Relationship | Address | Phone | + + +---------+ + | Laura Allred | ECON | Unknown | | + + +---------+ + Care Team Providers + +------+ + | Care Estimator And Drafter Name | Role | Phone | + [...] | | | | | unspecified | [facility] [place] | Health and | | | | | laterality, | [address] | Healing, | | | | | unspecified | Phone: | Building [address] | | | | | part of lung | [phone] | [facility] [place] | | | | | (HCC) | Fax: | [address] | | | | | Procedures | [phone] | Phone: | | | | | CONSULT TO | | [phone] | | | | | HEMATOLOGY / | | Fax: | | | | | ONCOLOGY | | [phone] | | | | | PRACTICE [place] | | | | | | | NEW PATIENT | | | | | | | [place]EL [place] | | | | | | | EST PATIENT | | | | | | | LEVEL V | | | +--------+---------+ + + + + Encounter Details +--------+ + + + + | Date | Type | Department | Care Team | Description | +--------+ + + + + | 12/13/ | Firewall Administrator | Cardiothoracic | Alejandro Waters NP | Malignant neoplasm | | 2019 | | Surgery at [facility] | [address] | of lung, unspecified | | | | [address] | [place], [place] | laterality, | | | | Physician's | [address] | unspecified part of | | | | Pavilion, 2nd floor | [phone] | lung (HCC) (Primary | | | | [place], [place] | | Dx) | | | | [address] | | | | | | [phone] | | | +--------+ + + + [...] | | 2019 | Visit | | [address] | | | | | | [place]ania [place], | | | | | | [place] [address] | | | | | | [phone] | | | | | | | | +--------+---------+ + + + | 04/30/ | Office | Otolaryngology | AnAllua | | | 2019 | Visit | | MD Debbie [address] [facility] | | | | | | [address] | | | | | | [place], [place] | | | | | | [address] | | | | | | [phone] | | | | | | | | +--------+---------+ + + + documented as of this encounter Visit Diagnoses + + | Diagnosis | + + | Malignant neoplasm of lung, unspecified laterality, unspecified part of lung (HCC) - | | Primary | + + documented in this encounter
--- OUTSIDE RECORDS SUMMARY | ~2020-03-30 | XMS | Encounter Summary ---
Demographics + + + | Address | [address] | | | [place] [address] | + + + | Home Phone [...] + + + | Author | [facility] | + + + | Organization | [facility] | + + + | Address | Unknown | + + + | Phone | Unavailable | + + + Support + + +---------+ + | Name | Relationship | Address | Phone | + + +---------+ + | Laura Allred | ECON | Unknown | | + + +---------+ + Care Team Providers + +------+ + | Care Cinder Snapper Name | Role | Phone | + [...] Pharmacy | | | | | | [address] | | | | | | [address] [place], [place] | | | | | | [address] | | | | | | [phone] | | | +--------+ + + + [...] | | | | | | [place] [address] | | | | | | [phone] | | | | | | | | +--------+---------+ + + + | 04/30/ | Office | Otolaryngology | Augustine Nolan | | | 2020 | Visit | | MD Debbie [address] | | | | | | [address] | | | | | | [place] | | | | | | [address] | | | | | | [phone] | | | | | | | | +--------+---------+ + + + documented as of this encounter Visit Diagnoses Not on filedocumented in this encounter
--- OUTSIDE RECORDS SUMMARY | ~2020-03-30 | XMS | Encounter Summary ---
Demographics + + + | Address | [address] | | | [place] [address] | + + + | Home Phone | | + + + | Preferred Language | Unknown | + + + | Marital Status | Single | + + + | Jainism Affiliation | Unknown | + + + | Race | Unknown | + + + | Ethnic Group | Unknown | + + + Author + + + | Author | [facility] | | | and Jakobana | + + + | Organization | [facility] | | | and Jakobana [...] Team Providers + +------+ + | Care Stretcher Leveler Operator Helper Name | Role | Phone [...] neoplasm of | MD [address] [place] [place] | | | | | upper lobe | [address] | [place], [place] | | | | | of left lung | [place], | [address] | | | | | ([facility]) | [place] [address] | Phone: | | | | | Procedures | Phone: | [phone] | | | | | PET CT Skull | [phone] | Fax: | | | | | Base To Mid | Fax: | [phone] | | | | | Thigh | [phone] | | +--------+--------+ + + + + Reason for Visit + +--------+ + | Reason | Onset | Comments | | | Date | | + +--------+ + | Results, Imaging | 12/28/ | | | | 2019 | | + +--------+ + Encounter Details +--------+ + + + + | Date | Type | Department | Care Team | Description | +--------+ + + + + | 12/28/ | Telephone | [facility] | Fiona Anne | Results, Imaging | | 2020 | | MED CTR RADIATION | MD Issa [address] | | | | | ONCOLOGY CLINIC [address] | [place] | | | | | [address] [place] | [address] | | | | | [place] [address] | | | | | | [phone] | | | +--------+ + + + [...] this encounter Miscellaneous Notes Telephone Encounter - Fiona Anne MD - 12/29/2019 9:20 AM PDTPlaced a call to Katharina to review CT Chest performed on 12/22/2019. Results demonstrate mixed findings with decreasi ng perihilar inflammation and decreased left hilar lymph node. However there are enlarging bilateral apical nodules and a slight increase in the small left pleural effusion. [facility] evaluate these findings I recommended another PET/CT. She is in agreement with this plan . She should follow-up in clinic after the PET/CT to review results. Katharina also reports severe fatigue, ongoing, and stable shortness of breath with exertion.Juanita ctronically signed by Fiona Anne MD at 12/29/2019 9:26 AM PDTdocumented in this enc ounter Plan of Treatment +--------+ + + + + | Date | Type | Specialty | Care Team | Description | +--------+ + + + + | 04/20/ | Appointment | Radiation Oncology | Treva Ortega | | | 2019 | | | DEISY Hernandez [address] | | | | | | [address] [facility] | | | | | | [place] [address] | | | | | | [phone] | | | | | | | | +--------+ + + + + documented as of this encounter Results PET CT Skull Base [...] (HCC) - Primary | + + | Malignant neoplasm of hilus of lung, unspecified laterality (HCC) | + + documented in this encounter"
--- OUTSIDE RECORDS SUMMARY | ~2020-03-30 | XMS | Encounter Summary ---
Demographics + + + | Address | [address] | | | [place] [address] | + + + | Home Phone [...] + + | Author | [facility] | | | and Jakobana | + + + | Organization | [facility] [...] Team Providers + +------+ + | Care Graphic Design Assistant Name | Role | Phone | [...] Malignant | Fiona M, | [address] | | | | | neoplasm of | MD [address] | [place], | | | | | upper lobe | [address] | [place] | | | | | of left lung | [place], | [address] | | | | | (HCC) | [place] [address] | Phone: | | | | | Procedures | Phone: | [phone] | | | | | MRI Brain w | [phone] | Fax: | | | | | wo Contrast | Fax: | [phone] | | | | | | [phone] | | +--------+--------+ + + + + Reason for Visit Diagnostic/Screening (Routine) +--------+--------+ + + + + | Status | Reason | Specialty | Diagnoses / | Referred By | Referred To | | | | | Procedures | Contact | Contact | +--------+--------+ + + + + | Closed | | Radiology | Diagnoses | Riegert, | [facility] | | | | | Malignant | Fiona M, | [address] | | | | | neoplasm of | MD [address] | [place], | | | | | upper lobe | [address] | [place] | | | | | of left lung | [place], | [address] | | | | | ([facility]) | [place] [address] | Phone: | | | | | Procedures | Phone: | [phone] | | | | | MRI Brain w | [phone] | Fax: | | | | | wo Contrast | Fax: | [phone] | | | | | | [phone] | | +--------+--------+ + + + + Encounter Details +--------+ + + + + | Date | Type | Department | Care Team | Description | +--------+ + + + + | 03/14/ | Hospital | [facility] | Fiona Anne | Malignant neoplasm | | 2019 | Encounter | [facility] MRI [address] | MD Issa [address] | of upper lobe of | | | | [address] [place], | [address] [place], [place] | left lung (HCC) | | | | [place] [address] | [address] | | | | | [phone] | | | +--------+ + + + [...] [address] | | | | | | [place] [address] | | | | | | [phone] | | | | | | | | +--------+ + + + + documented as of this encounter Procedures + +--------+ + + + | Procedure Name | Priori | Date/Time | Associated Diagnosis | Comments | | | ty | | | | + +--------+ + + + | MRI BRAIN W WO | Routin | 03/14/2019 | Malignant neoplasm | Results for this | | CONTRAST | e | 11:40 AM | of upper lobe of | procedure are in the | | | | PDT | left lung (HCC) | results section. | + +--------+ + + + documented in this encounter Results MRI Brain w wo Contrast (03/14/2019 11:40 AM PDT) + + | Specimen | + + | | + + + + + | Narrative | Performed At | + + + | EXAM: MRI BRAIN W WO CONTRAST dated 03/14/2019 11:02 AM | [facility] | | HISTORY: headache, lung cancer COMPARISON: Outside MRI dated | | | 11/26/2018 TECHNIQUE: Multiplanar, multisequence imaging of the | | | brain was performed in the 1.5 T MR scanner prior to and following | | | the uneventful intravenous administration of 5.5 cc of Gadavist | | | contrast. FINDINGS: There is no mass, mass effect, or | | | midline shift. There are several scattered areas of periventricular | | | and subcortical white matter T2 and FLAIR hyperintensities. There | | | are new somewhat linear areas of FLAIR hyperintensity in the right | | | occipital lobe and a new focal nonlinear area in the left occipital | | | lobe. Both of these show associated enhancement. There are 2 | | | linear appearing regions of precontrast T1 hyperintensity in the | | | superior portion of the left occipital lobe. This area is one of | | | the areas this shows superimposed enhancement. There are truly | | | discrete or circumscribed lesions. Redemonstration of a | | | developmental venous anomaly in the left cerebellar hemisphere. | | | There is enhancement within the cavernous and dural venous sinuses | | | suggesting patency. The major intracranial flow voids are visible | | | suggesting vessel patency. No areas of restricted diffusion. No | | | GRE castro artifact to suggest abnormal hemosiderin deposition or | | | mineralization. Minimal T2 hyperintensity in the left mastoid tip. | | | Minimal mucosal thickening. There are cells. The globes and | | | retrobulbar structures are symmetric and unremarkable. No | | | identified scalp or skull lesions. IMPRESSION - Compared to | | | November 26, 2018 there are small areas of new T2 and FLAIR | | | hyperintensity in the occipital lobes bilaterally. Both show some | | | faint enhancement. The etiology of these lesions is uncertain. | | | These do not fit the typical appearance for metastatic disease | | | although this would not be entirely excluded as a possibility. They | | | could be the sequelae of recent ischemia. Dictated and Signed by: | | | Cleve Bourgeois MD Electronically signed: 03/14/2019 12:55 PM | | + + + + + | Procedure Note | + + | Cristhian, Rad Results In - 03/14/2019 12:58 PM PDT EXAM: MRI BRAIN W WO CONTRAST dated | | 03/14/2019 11:02 AMHISTORY: headache, lung cancerCOMPARISON: Outside MRI dated | | 11/26/2018TECHNIQUE: Multiplanar, multisequence imaging of the brain was performed in | | the1.5 T MR scanner prior to and following the uneventful intravenousadministration of | | 5.5 cc of Gadavist contrast. FINDINGS: There is no mass, mass effect, or midline shift. | | There are several scatteredareas of periventricular and subcortical white matter T2 | | and FLAIRhyperintensities. There are new somewhat linear areas of FLAIR | | hyperintensityin the right occipital lobe and a new focal nonlinear area in the left | | occipitallobe. Both of these show associated enhancement. There are 2 linear | | appearingregions of precontrast T1 hyperintensity in the superior portion of the | | leftoccipital lobe. This area is one of the areas this shows superimposedenhancement. | | There are truly discrete or circumscribed lesions.Redemonstration of a developmental | | venous anomaly in the left cerebellarhemisphere. There is enhancement within the | | cavernous and dural venous sinusessuggesting patency. The major intracranial flow voids | | are visible suggestingvessel patency. No areas of restricted diffusion.No GRE castro | | artifact to suggest abnormal hemosiderin deposition ormineralization.Minimal T2 | | hyperintensity in the left mastoid tip. Minimal mucosal thickening. There are cells. | | The globes and retrobulbar structures are symmetric andunremarkable. No identified | | scalp or skull lesions.IMPRESSION -Compared to November 26, 2018 there are small areas of | | new T2 and FLAIRhyperintensity in the occipital lobes bilaterally. Both show some | | faintenhancement. The etiology of these lesions is uncertain. These do not fit | | thetypical appearance for metastatic disease although this would not be entirelyexcluded | | as a possibility. They could be the sequelae of recent ischemia.Dictated and Signed | | by: Cleve Bourgeois MD Electronically signed: 03/14/2019 12:55 PM | |vessel patency. No areas of restricted diffusion. | | | |No GRE castro artifact to suggest abnormal hemosiderin deposition or | |mineralization. | | | |Minimal T2 hyperintensity in the left mastoid tip. Minimal mucosal thickening. | |There are cells. The globes and retrobulbar structures are symmetric and | |unremarkable. No identified scalp or skull lesions. | | | |IMPRESSION - | | | |Compared to November 26, 2018 there are small areas of new T2 and FLAIR | |hyperintensity in the occipital lobes bilaterally. Both show some faint | |enhancement. The etiology of these lesions is uncertain. These do not fit the | |typical appearance for metastatic disease although this would not be entirely | |excluded as a possibility. They could be the sequelae of recent ischemia. | | | |Dictated and Signed by: Cleve Bourgeois MD | | Electronically signed: 03/14/2019 12:55 PM | + + + +---------+ + [...] | | | + +--------+ +---------+------+------+ | gadobutrol (GADAVIST) injection | Given | 03/14/20 | 5.5 mLs | | | | 5.5 mL 5.5 mL, Intravenous, | | 19 12:05 | | | | | ONCE PRN, Other, Starting Fri | | PM PDT | | | | | 03/14/19 at 1203, For 1 dose, MRI | | | | | | + +--------+ +---------+------+------+ +---+---+ | | | +---+---+ documented in this encounter"
--- OUTSIDE RECORDS SUMMARY | ~2020-03-30 | XMS | Encounter Summary ---
Demographics + + + | Address | [address] | | | [place] [address] | + + + | Home Phone [...] Team Providers + +------+ + | Care Acidizer Name | Role | Phone | + [...] | | | | | Physician's | [place], [place] | | | | | [address], [address] floor | [address] | | | | | [place], [place] | [phone] | | | | | [address] | | | | | | [phone] | | | +--------+ + + + [...] | | | | | Melania [address] [place], | | | | | | [place] [address] | | | | | | [phone] | | | | | | | | +--------+---------+ + + + | 04/30/ | Office | Otolaryngology | Augustine Nolan | | | 2020 | Visit | | MD Debbie [address] | | | | | | [address] | | | | | | [place] | | | | | | [address] | | | | | | [phone] | | | | | | | | +--------+---------+ + + + documented as of this encounter Results OUTSIDE CHEST - READ REQUEST (10/11/2018 12:00 AM PST) + + | Specimen | + + | | + + + + + | Narrative | Performed At | + + + | EXAM: [facility] professional interpretation of outside study: OUTSIDE | [facility] | | CHEST READ DATE OF IMAGE ACQUISITION: 10/11/2018 DATE OF [facility] | RADIOLOGY VOICE | | INTERPRETATION: [...] Interface - 12/25/2018 5:51 PM PDT EXAM: [facility] | | professional interpretation of outside study: OUTSIDE CHEST READ DATE OF IMAGE | | ACQUISITION: 10/11/2018DATE OF [facility] INTERPRETATION: 12/25/2018 HISTORY: Poorly | | [...]
--- OUTSIDE RECORDS SUMMARY | ~2020-03-30 | XMS | Encounter Summary ---
Demographics + + + | Address | [address] | | | [place] [address] | + + + | Home Phone [...] + + + | Author | [facility] | | | and Jakobana | + + + | Organization | [facility] | | | and [...] Team Providers + +------+ + | Care Ship Ceiler Name | Role | Phone | + [...] | | | related pain | [address] | | | | | (acute) | [place], | [address] | | | | | (chronic) | [place] | [place], [place] | | | | | C34.12 | [address] | [address] | | | | | (ICD-10-CM) | Phone: | Phone: | | | | | - Malignant | [phone] | [phone] | | | | | neoplasm of | Fax: | Fax: | | | | | upper lobe, | [phone] | [phone] | | | | | left | | | | | | | bronchus or | | | | | | | lung (HCC) | | | | | | | Procedures | | | | | | | [address] | | | + +--------+ + + + + Encounter Details +--------+ + + + + | Date | Type | Department | Care Team | Description | +--------+ + + + + | 10/14/ | Hospital | [facility] | [place], | Malignant neoplasm | | 2020 | Encounter | [facility] | Boubacar Daniels MD [address] | of left lung, | | | | [facility] | [facility] | unspecified part of | | | | [address] [place] | [address] [place], [place] | lung (HCC); | | | | [place] [address] | [address] | Post-thoracotomy | | | | [phone] | | pain syndrome | +--------+ + + + + Social [...] + + + | Blood Pressure | 139/61 | 10/14/2019 10:02 AM | | | | | PST | | + + + + + | Pulse | 82 | 10/14/2019 10:02 AM | | | | | PST | | + + + + + | Temperature | 36.4 C (97.6 F) | 10/14/2019 10:02 AM | | | | | PST | | + + + + + | Respiratory Rate | 18 | 10/14/2019 10:02 AM | | | | | PST | | + + + + + | Oxygen Saturation | 100% | 10/14/2019 10:02 AM | | | | | PST | | + + + + + | Inhaled Oxygen | - | - | | | Concentration | | | | + + + + + | Weight | 54.7 kg (120 lb 9.5 | 10/14/2019 10:02 AM | | | | oz) | [...] 1 capsule by | | 0 | 12/20/20 | | | (VIBRAMYCIN) 100 mg | mouth 2 times daily. | | | 19 | | | capsule | | | | | | + + + +---------+ + + | estradiol | Take 2 mg by mouth | | 0 | 12/09/20 | | | (ESTRACE) 2 MG | [...] patch onto | 10 | 0 | 10/10/19 | | | (DURAGESIC) 50 | the [...] to two | 150 | 0 | 10/10/19 | | | HYDROcodone-acetamin | tablets orally [...] | | 0 | | | | triamterene-hydrochl | mouth Daily. | | | | 0 | | orothiazide | | | | | | | (MAXZIDE-25) | | | | | | | 18.75-12.5 mg TABS | | | | | | + + + +---------+ + + documented as of this encounter Progress Notes Boubacar Mata MD - 10/14/2019 10:20 AM PSTFormatting of this note might be differe nt from the original. Hematology/Oncology Progress Note [facility] CAROL [place] Pt. Name/Age/: Sussy Varghese Allred 69 y.o. 1950 Med. Record Number: [id number] Date of admission: 10/14/2019 The patient's primary care provider is Lauryn Stuart PA-C. Identifying Statement: Sussy Allred is a 69 y.o. female from [address] [place] [address] [address] [place] [address] with Stage IIIA poorly differentiated adenocarcinoma of the lung, status post left upper lobectomy December 04, 2018. The patient chart and medications were reviewed in detail and the patient was seen and exam ined. History of Present Illnesses, their Current Assessments and Plans: Problem List Dysphonia Lung cancer Overview ACTIVE DIAGNOSIS: pT2a,pN2,M0, Stage [...] L, 4L and hilar lymph nodes (Stacy KYMOIZ). [id number] was notable for a poorly differentiated adenocarcinoma, [...] 19. Left medialization thyroplasty implant (Augustine Nolan, [facility]) October 09, 2019. Current Assessment & Plan Sussy Allred returned to clinic alone on 10/14/2019 for follow up of her Stage IIIA, l eft lung adenocarcinoma, status post left upper lobectomy, followed by adjuvant combined mod ality therapy with four cycles of carboplatin/pemetrexed and standard fractionation external beam radiation. 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 Review of systems is notable for improved dyspnea, dysphagia and tinnitus. Clinical exam is notable for the fact her voice is stronger, although she still gets out of breath talking in long sentences. No imaging or laboratory studies were performed for this encounter. Assessment; Stage IIIA, left lung adenocarcinoma in first complete remission. Plan; continue to monitor. Follow up on December 15, 2019 with imaging directed by Dr. Fiona Anne. 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 She will continue with topical fentanyl at 50 mcg/hour, change every 72 hours. I am providing monthly refills of Notus 7.5/325 mg tablets with a slowly tapering schedule with each fill, currently #150 for 30 day, subsequently #120 for 30 days, then #90 for 30 da ys, then # 60 for 30 days, Then #30 for 30 days, then Stop. Topical fentanyl with then be ta pered off. Review of Systems: Constitutional: Pt reports ongoing severe fatigue. Pt reports ongoing frequent night sweats . Denies high fevers, shaking chills, anorexia, nausea, vomiting, or weight loss. Appetite without changes. Ear, Nose, Mouth, Throat: Pt reports improvement of dysphagia and tinnitus. Denies odynopha gunjan. Cardiovascular: Pt reports improvement of dyspnea on exertion. Pt reports continued pain to left chest wall. Denies shortness of breath, palpitations or orthopnea. Respiratory: Denies cough, hemoptysis, or sputum production. Gastrointestinal: Denies abdominal pain, constipation, diarrhea, melena, or bright red bloo d per rectum. Genitourinary: Denies hematuria or dysuria. Musculoskeletal: Denies joint pain or tenderness. Neurologic: Pt reports occasional headaches recently. Denies visual changes or numbness/tin gling of the extremities. Endocrine: Denies peripheral edema or heat/cold intolerance. Hematologic: Denies spontaneous bruising or bleeding. Integumentary: Pt has incision to neck from recent surgery. Some swelling noted, no redness . Denies rash other skin concerns. Pain: Pt reports pain of 6/10 to incision site. ROS otherwise negative Note: Pt here for follow-up. Labs drawn from [facility] on 10/08/2019. My chart: Declined Scheduled Medications: Current Outpatient [...] tablet Take 50 mcg by mouth Daily. Multiple Vitamins-Iron (DAILY-EVANGELINA/IRON/BETA-CAROTENE PO) Take 1 tablet [...] 1% cream Apply 1 Dose topically Daily. triamterene-hydrochlorothiazide (MAXZIDE-25) 18.75-12.5 mg TABS Take 1 tablet by mouth Daily. No current facility-administered medications [...] Last attempt to quit: 08/20/2011 Years since quittin.1 Smokeless tobacco: Never Used Substance and Sexual [...] file Gets together: Not on file Attends anabaptism service: Not on file Active member of [...] was cancer Macular degen Mother Objectives: Temp: 36.4 C (97.6 F) BP: 139/61 Pulse: 82 Resp: 18 SpO2: 100 % on Min/Max Temp past 24 hours:No data recorded No intake or output data in the 24 hours ending 10/21/19 1011 Wt. Admission: Weight: 54.7 kg (120 lb 9.5 oz) Wt. Current: Weight: 54.7 kg (120 lb 9.5 oz) Wt Readings from Last 3 Encounters: 10/14/19 54.7 kg (120 lb 9.5 oz) 09/15/19 54.3 kg (119 lb 11.4 oz) 08/25/19 52.8 kg (116 lb 6.5 oz) Physical Exam: General: The patient is alert and oriented. No acute distress. Eyes: Conjunctiva clear. Sclera anicteric. ENMT: Oropharynx fee of lesions, mucous membranes moist. New low transverse cervical scar i s healing without erythema or discharge. Cardiovascular: Regular rate and rhythm, no rubs, gallops, or murmurs. Lungs: Clear to auscultation and percussion. Chest: Left lateral thoracotomy scar is well-healed. The Left chest wall remains very tend er to palpation. Extremities: Nontender, no erythema, no edema. Skin: Rosacea over the bridge of the nose. Lymph: No palpable cervical or supraclavicular lymphadenopathy. The patient's sense of ful lness in the supraclavicular fossae is secondary to soft tissue fullness, potentially relate d to recent use of steroids. Neurological: Face symmetric, voice is audibly stronger [...] Romeo, RGris., Renaldo Parish., May Avery., Turner, T.Christiano., Coral, [...] Medications No medications on file Discontinued Medications AMINO ACIDS (AMINO ACID PO) Take 1 Scoop by mouth Daily. MISC NATURAL PRODUCTS (HIMALAYAN GOJI PO) Take 2 oz by mouth Daily. NON-FORMULARY MEDICATION Take 3 oz by mouth Daily. [place] supplement OFLOXACIN (OCUFLOX) 0.3% OPHTHALMIC SOLUTION Place 1 drop into the right eye 4 times da johnson. PREDNISOLONE (PRED FORTE) 1% OPHTHALMIC SUSPENSION Place 1 drop into the right eye 4 ti mes daily. PREDNISONE (DELTASONE) 10 MG TABLET Take 4 tabs by mouth daily for 1 week, then take 3 tabs for 1wk, then take 2 tabs for 1 week, then take 1 tab daily for 1 wk., then stop Requested Prescriptions No prescriptions requested or ordered in this encounter Procedure: Boubacar Mata MD Portions of this chart may have been created with Vizy voice recognition software. Occasi onal wrong-word or sound-alike substitutions may have occurred due to the inherent tripathi itations of voice recognition software. Please read the chart carefully and recognize, using context, where these substitutions have occurred. Boubacar Bhatt MD - 10/14/2019 10:20 AM PSTFormatt ing of this note might be different from the original. Hematology/Oncology Progress Note [facility] [place] Pt. Name/Age/: Sussy Allred 69 y.o. 1950 Med. Record Number: [id number] Date of admission: 10/14/2019 The patient's primary care provider is Lauryn Stuart PA-C. Identifying Statement: Sussy Allred is a 69 y.o. female from [address] [place] [address] [address] [place] [address] with Stage IIIA poorly differentiated adenocarcinoma of the lung, status post left upper lobectomy December 04, 2018. The patient chart and medications were reviewed in detail and the patient was seen and exam ined. History of Present Illnesses, their Current Assessments and Plans: Problem List Dysphonia Lung cancer Overview ACTIVE DIAGNOSIS: pT2a,pN2,M0, Stage [...] L, 4L and hilar lymph nodes (Stacy KYMOIZ). [facility] [id number] was notable for a poorly differentiated adenocarcinoma, [...] 19. Left medialization thyroplasty implant (Augustine Nolan, [facility]) October 09, 2019. Current Assessment & Plan Sussy Allred returned to clinic alone on 10/14/2019 for follow up of her Stage IIIA, l eft lung adenocarcinoma, status post left upper lobectomy, followed by adjuvant combined mod ality therapy with four cycles of carboplatin/pemetrexed and standard fractionation external beam radiation. 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 Review of systems is notable for improved dyspnea, dysphagia and tinnitus. Clinical exam is notable for the fact her voice is stronger, although she still gets out of breath talking in long sentences. No imaging or laboratory studies were performed for this encounter. Assessment; Stage IIIA, left lung adenocarcinoma in first complete remission. Plan; continue to monitor. Follow up on December 15, 2019 with imaging directed by Dr. Fiona Anne. Paralysis of left vocal fold Overview Last Assessment & Plan: Due to [...] rechallenge swallow if ok from ICU's perspective Last Assessment & Plan: Due [...] from ICU's perspective Review of Systems: Constitutional: Pt reports ongoing severe fatigue. Pt reports ongoing frequent night sweats . Denies high fevers, shaking chills, anorexia, nausea, vomiting, or weight loss. Appetite without changes. Ear, Nose, Mouth, Throat: Pt reports improvement of dysphagia and tinnitus. Denies odynopha gunjan. Cardiovascular: Pt reports improvement of dyspnea on exertion. Pt reports continued pain to left chest wall. Denies shortness of breath, palpitations or orthopnea. Respiratory: Denies cough, hemoptysis, or sputum production. Gastrointestinal: Denies abdominal pain, constipation, diarrhea, melena, or bright red bloo d per rectum. Genitourinary: Denies hematuria or dysuria. Musculoskeletal: Denies joint pain or tenderness. Neurologic: Pt reports occasional headaches recently. Denies visual changes or numbness/tin gling of the extremities. Endocrine: Denies peripheral edema or heat/cold intolerance. Hematologic: Denies spontaneous bruising or bleeding. Integumentary: Pt has incision to neck from recent surgery. Some swelling noted, no redness . Denies rash other skin concerns. Pain: Pt reports pain of 6/10 to incision site. ROS otherwise negative Note: Pt here for follow-up. Labs drawn from [facility] on 10/08/2019. My chart: Declined Scheduled Medications: Current Outpatient [...] tablet Take 50 mcg by mouth Daily. Multiple Vitamins-Iron (DAILY-EVANGELINA/IRON/BETA-CAROTENE PO) Take 1 tablet [...] 1% cream Apply 1 Dose topically Daily. triamterene-hydrochlorothiazide (MAXZIDE-25) 18.75-12.5 mg TABS Take 1 tablet by mouth Daily. No current facility-administered medications [...] Last attempt to quit: 08/20/2011 Years since quittin.1 Smokeless tobacco: Never Used Substance and Sexual [...] file Gets together: Not on file Attends anabaptism service: Not on file Active member of [...] HTN (hypertension) Anemia due to chemotherapy Dysphonia Family History Problem Relation Age of Onset Other (see comment) Father pancreatic disease, unsure if it was cancer Macular degen Mother Objectives: Temp: 36.4 C (97.6 F) BP: 139/61 Pulse: 82 Resp: 18 SpO2: 100 % on Min/Max Temp past 24 hours:No data recorded No intake or output data in the 24 hours ending 10/21/19 1006 Wt. Admission: Weight: 54.7 kg (120 lb 9.5 oz) Wt. Current: Weight: 54.7 kg (120 lb 9.5 oz) Wt Readings from Last 3 Encounters: 10/14/19 54.7 kg (120 lb 9.5 oz) 09/15/19 54.3 kg (119 lb 11.4 oz) 08/25/19 52.8 kg (116 lb 6.5 oz) Physical Exam: General: The patient is alert and oriented. No acute distress. Eyes: Conjunctiva clear. Sclera anicteric. ENMT: Oropharynx fee of lesions, mucous membranes moist. New low transverse cervical scar i s healing without erythema or discharge. Cardiovascular: Regular rate and rhythm, no rubs, gallops, or murmurs. Lungs: Clear to auscultation and percussion. Chest: Left lateral thoracotomy scar is well-healed. The Left chest wall remains very tend er to palpation. Extremities: Nontender, no erythema, no edema. Skin: Rosacea over the bridge of the nose. Lymph: No palpable cervical or supraclavicular lymphadenopathy. The patient's sense of ful lness in the supraclavicular fossae is secondary to soft tissue fullness, potentially relate d to recent use of steroids. Neurological: Face symmetric, voice is audibly stronger [...] published in Am. J. Clin. Oncol.: Niranjan Lopze., Beronica Walters., Renaldo Parish., Nico Avery, Yareli Tompkins., Suzanne Moncada., Georgette, P MarvaP.: Toxicity And Response Criteria Of The Eastern [...] Medications No medications on file Discontinued Medications AMINO ACIDS (AMINO ACID PO) Take 1 Scoop by mouth Daily. MISC NATURAL PRODUCTS (HIMALAYAN GOJI PO) Take 2 oz by mouth Daily. NON-FORMULARY MEDICATION Take 3 oz by mouth Daily. [place] supplement OFLOXACIN (OCUFLOX) 0.3% OPHTHALMIC SOLUTION Place 1 drop into the right eye 4 times da johnson. PREDNISOLONE (PRED FORTE) 1% OPHTHALMIC SUSPENSION Place 1 drop into the right eye 4 ti mes daily. PREDNISONE (DELTASONE) 10 MG TABLET Take 4 tabs by mouth daily for 1 week, then take 3 tabs for 1wk, then take 2 tabs for 1 week, then take 1 tab daily for 1 wk., then stop Requested Prescriptions No prescriptions requested or ordered in this encounter Procedure: Boubacar Mata MD Portions of this chart may have been created with Vizy voice recognition software. Occasi onal wrong-word or sound-alike substitutions may have occurred due to the inherent tripathi itations of voice recognition software. Please read the chart carefully and recognize, using context, where these substitutions have occurred. documented in this encounter Miscellaneous Notes Assessment & Plan Note - Boubacar Mata MD - 10/21/2019 10:08 AM PSTAssociated Prob kati(s): Post-thoracotomy pain syndromeI am addressing Katharina's post-thoracotomy pain syndrome by supervising Katharina's narcotic prescribing. She will continue with topical fentanyl at 50 mcg/hour, change every 72 hours. I am providing monthly refills of Notus 7.5/325 mg tablets with a slowly tapering schedule with each fill, currently #150 for 30 day, subsequently #120 for 30 days, then #90 for 30 da ys, then # 60 for 30 days, Then #30 for 30 days, then Stop. Topical fentanyl with then be ta pered off. ssess ment & Plan Note - Boubacar Mata MD - 10/21/2019 9:58 AM PSTAssociated Problem(s): Lung cancer (HCC)Sussy Allred returned to clinic alone on 10/14/2019 for follow up of he r Stage IIIA, left lung adenocarcinoma, status post left upper lobectomy, followed by adjuva nt combined modality therapy with four cycles of carboplatin/pemetrexed and standard fractio [place] external beam radiation. 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 Review of systems is notable for improved dyspnea, dysphagia and tinnitus. Clinical exam is notable for the fact her voice is stronger, although she still gets out of breath talking in long sentences. No imaging or laboratory studies were performed for this encounter. Assessment; Stage IIIA, left lung adenocarcinoma in first complete remission. Plan; continue to monitor. Follow up on December 15, 2019 with imaging directed by Dr. Fiona Anne. dofahad martinez in this encounter Plan of Treatment [...] [address] | | | | | | [place] [address] | | | | | | [phone] | | | | | | | | +--------+ + + + + documented as of this encounter Visit Diagnoses + + | Diagnosis | + + | Malignant neoplasm of left lung, unspecified part of lung (HCC) | + + | Post-thoracotomy pain syndrome Acute post-thoracotomy pain | + + documented in this encounter
--- OUTSIDE RECORDS SUMMARY | ~2020-03-30 | XMS | Encounter Summary ---
Demographics + + + | Address | [address] | | | [place] [address] | + + + | Home Phone [...] | Author | [facility] | | | and Jakobana | + + + | Organization | [facility] | | [...] Team Providers + +------+ + | Care Integration Director Name | Role | Phone | + +------+ + | Lauryn Stuart PA-C | PCP | | + +------+ + Reason for Visit Evaluate & Treat (Routine) +--------+--------+ + + [...] | | of left lung | [address] | [place], | | | | | (HCC) | [place], | [place] [address] | | | | | Procedures | [place] | Phone: | | | | | [address] | [address] | [phone] | | | | | | Phone: | Fax: | | | | | | [phone] | [phone] | | | | | | Fax: | | | | | | | [phone] | | +--------+--------+ + + + + Encounter Details +--------+ + + + + | Date | Type | Department | Care Team | Description | +--------+ + + + + | 03/20/ | Hospital | [facility] | Fiona Anne | Malignant neoplasm | | 2019 | Encounter | [facility] | MD Issa [address] | of upper lobe of | | | | [facility] [address] | [place], [place] | left lung (HCC) | | | | [address] [place] | [id number] | (Primary Dx); | | | | [place] [address] | | Abnormal weight | | | | [phone] | Renee Martinez, | gain; Acute | | | | | PharmD [address] | respiratory distress | | | | | [address] [place] | syndrome (ARDS) | | | | | [place] [address] | ([facility]); Aspiration | | | | | [phone] | pneumonitis (HCC); | | | | | | Cervicalgia; | | | | | | Hypophosphatemia; [...] + + + | Blood Pressure | 139/66 | 03/20/2019 9:44 AM | | | | | PDT | | + + + + + | Pulse | 79 | 03/20/2019 9:44 AM | | | | | PDT | | + + + + + | Temperature | 36.6 C (97.9 F) | 03/20/2019 9:44 AM | | | | | PDT | | + + + + + | Respiratory Rate | 14 | 03/20/2019 9:44 AM | | | | | PDT | | + + + + + | Oxygen Saturation | 100% | 03/20/2019 9:44 AM | | | | | PDT | | + + + + + | Inhaled Oxygen | - | - | | | Concentration | | | | + + + + + | Weight | 55.8 kg (123 lb 0.3 | 03/20/2019 9:44 AM | | | | oz) | PDT | | + + + + + | Height | - | - | | + + + + + | Body Mass Index | 20.5 | 01/30/2019 2:26 PM | | | [...] 0.5 tablets by | | 0 | 04/27/20 | | | triamterene-hydrochl | mouth Daily. | | | 19 | 0 | | orothiazide | | | | | | | (MAXZIDE-25) 37.5-25 | | | | | | | mg per tablet | | | | | | + + + +---------+ + + documented as of this encounter Progress Notes Renee Martinez, PharmD - 03/20/2019 10:21 AM PDTFormatting of this note might be differ ent from the original. Clinical Oncology Pharmacy Services Progress Note [facility] Pt. Name/Age/: Sussy Allred 69 y.o. 1950 CSN: [id number] Date of service: 03/20/2019 Provider: Renee Martinez PharmD, [facility] Identifying Statement: Sussy Allred is a 69 y.o. female from [address] [place] [address], The primary encounter diagnosis was Malignant neoplasm of upper lobe of left lung (HCC). Diagnoses of Abnormal weight gain, Acute respiratory distress syndrome (AR DS) (HCC), Aspiration pneumonitis (HCC), Cervicalgia, Hypophosphatemia, Hypothyroidism, unsp ecified type, and Postoperative anemia due to acute blood loss were also pertinent to this v isit. The patient chart and medications were reviewed in detail and the patient was seen and exam ined. Patient was referred to Clinical Oncology Pharmacist for follow-up prior to treatment. Assessment and plan: Patient is struggling with decreased energy, intermittent nausea, and esophageal pain from ongoing radiation therapy. She started on Magic mouthwash for this last side effect, which she does find helpful falls asleep often due to the diphenhydramine component. She is reque sting I send a new prescription for Magic mouthwash without the diphenhydramine, which seems reasonable. She is only using lorazepam for breakthrough nausea, previously tried ondanset brittany but did not feel she was getting any improvement so she stopped. She is open to trying a new medication for nausea. Laboratory data is notable for grade 2 anemia and grade 2 neutropenia, neither of which is dose-limiting at this time. 1. Proceed with day #1 cycle #3 carboplatin/pemetrexed per the oncology treatment plan ente red by Dr. Mata. 2. Give vitamin B12 injection prior to chemotherapy today. 3. Prochlorperazine 10 mg every 6 hours as needed for nausea. 4. Magic mouthwash with diphenhydramine component omitted, sent to local pharmacy. 5. Follow-up with Dr. Fritz today for ongoing radiation management. 6. Follow-up with Dr. Mata in 1 to 2 weeks for ashanti check. Subjective: The patient chart and medications were reviewed in detail and the patient was seen and exam inedMarva Allred is a 69 y.o. female with stage IIIa non-small cell lung cancer, here for a djuvant therapy. Patient is now receiving combined modality chemoradiotherapy for her non-small cell lung ca ncer. She is struggled more with her second cycle of therapy, citing all of the side effect s mentioned above. Energy has been the biggest factor for her, additionally pain when swall owing which she is attributing to her radiation therapy. Dr. Anne recently ordered a bra in MRI, and was requested patient return for repeat imaging in 1 month. An ultrasound of he r neck is also been ordered, she will follow-up with Dr. Fritz later today regarding this. S he denies any fevers, chills, or other signs or symptoms of infection. Does have dyspnea on exertion, and some dizziness and lightheadedness. Some nausea with 2 episodes of emesis re ported. Nausea somewhat controlled with lorazepam, however patient finds lorazepam overseda michelle. Treatment Plan Information Sussy Allred PEMETREXED + CARBOPLATIN Q 21D X 4 CYCLES FOR NSCLC Current Cycle Treatment Dates Line of Treatment Treatment Goal Treatment Plan Provider Dominick louis Department Status 3 of 4 cycles 02/05/2019 to 04/10/2019 (None) (None) Boubacar Mata MD [facility] CHEMO INFUSION Active Protocol PEMETREXED + CARBOPLATIN Q 21D FOR NSCLC - As of 01/30/2019 15:37 Reference Links 1. Darline LOMBARDI et al. Pemetrexed + carboplatin versus gemcitabine + carboplatin in the dominick tment of stage IIIB/IV non-small cell lung cancer. 2007 ASCO annual meeting. Abstract 7517 Treatment Plan Management Created By Created On Updated By Updated On Go to Treatment Educational Psychology Teacher Boubacar Mata MD 01/30/2019 15:37 Taye Riggs 03/20/2019 10:21 PMH: Past Medical History: Diagnosis Date Disc [...] degen Mother Review of Systems: Constitutional: Reports low energy which continues. Appetite has been low but states she is eating; weight slightly increased this morning. Taste changes continue. Reports nausea and vomiting but taking Lorazepam which is helping per pt. Denies fatigue. Denies high fevers, shaking chills, anorexia, nausea, vomiting, weight loss, or night sweats. Appetite without changes. Ear, Nose, Mouth, Throat: Reports it is "really hard to swallow" Denies odynophagia, dyspha gunjan, or tinnitus. Cardiovascular:Reports SOB on exertion which continues. Reports chest pain has increased an d "feels like a stabbing pressure, I'm sure it's just the healing from the surgery because i t is on that same side." Denies shortness of breath, dyspnea on exertion, chest pain, palpit ations or orthopnea. Respiratory: Reports dry cough continues but has improved slightly. Denies cough, hemoptysi s, or sputum production. Gastrointestinal: Reports constipation after chemo treatment "for about 5 days". Denies abd ominal pain, constipation, diarrhea, melena, or bright red blood per rectum. Genitourinary: Denies hematuria or dysuria. Musculoskeletal: Reports tenderness around surgical site associated with the chest pain. Ne ck pain continues and is tender. Denies joint pain or tenderness. Neurologic: Reports headaches continue. Reports vision is increasingly more blurry. Numbnes s to fingertips continue due to Raynaud's disease but medications help. Denies headache, vis ual changes, or numbness/tingling of the extremities. Endocrine: Reports some occasional swelling of BLE (ankles) Denies peripheral edema or heat /cold intolerance. Hematologic: Reports easy bruising. Denies spontaneous bruising or bleeding. Integumentary: Reports redness from radiation. Denies rash, wounds or other skin concerns. Pain: Pain 5/10 today "all over". Review of systems as above, otherwise negative [...] otherapy and for two days after chemotherapy. oprczoqzztXTCUE-vncbzycdc-xpofmnrw & magnesium hydroxide-simethicone (MAGIC MOUTHWASH) Swish and spit 5 mLs every 4 hours as needed for Pain. (RECIPE=1:1 mixture of Maalox, viscou s lido Dropping diphenhydramine due todrowsiness trojcwlwwxKYVGD-lbfgpgqxt-rkintxte & magnesium hydroxide-simethicone (MAGIC MOUTHWASH) Take 5 mLs by mouth every 4 hours as needed for Pain. (RECIPE = 1:1:1 mixture of Maalox, dip henhydrAMINE, viscous lidocaine) (Patient not taking: Reported on 03/20/2019) estradiol (ESTRACE) 2 MG tablet Take 2 mg by mouth Daily. folic acid 1 mg tablet Take 1 tablet by mouth Daily for 100 days. HYDROcodone-acetaminophen (NORCO) 7.5-325 mg per tablet Take [...] 6 hours as needed for Nausea . triamterene-hydrochlorothiazide (MAXZIDE-25) 37.5-25 mg per tablet Take 0.5 tablets by mouth Daily. No current facility-administered medications for this encounter. Allergies: Allergies Allergen Reactions Ketorolac Anaphylaxis Adhesive & Tape Dermatitis Latex Rash Vitals: Temp: 36.6 C (97.9 F) BP: 139/66 Pulse: 79 Resp: 14 SpO2: 100 % on Temp :Temp Av.6 C (97.9 F) Min: 36.6 C (97.9 F) Max: 36.6 C (97.9 F) No intake or output data in the 24 hours ending 03/20/19 1021 Wt. Current: Weight: 55.8 kg (123 lb 0.3 oz) Diagnostic studies: Available data and images were reviewed personally. See reports. Significant results and findings are addressed here or in the Assessment and Plan. Recent Labs Lab 03/20/19 0909 WBC 2.6* HGB 8.7* HCT 26.8* PLT 198 Recent Labs Lab 03/20/19 0909 NA 138 K 3.3* CL 105 CO2 25 BUN 17 CREA 0.77 GLU 94 CALCIUM 9.4 BILITOT 0.3 AST 19 ALT 15 ALKPHOS 87 ALBUMIN 4.0 Imaging: No results found. Renee Martinez PharmD, BCOP Referring Provider: Dr. Mata Supervising Provider: Dr. Ledbetter Rianna Arboleda RN - 03/20/2019 9:26 AM PDTREVIEW OF SYSTEMS Constitutional: Reports low energy which continues. Appetite has been low but states she is eating; weight slightly increased this morning. Taste changes continue. Reports nausea and vomiting but taking Lorazepam which is helping per pt. Denies fatigue. Denies high fevers, shaking chills, anorexia, nausea, vomiting, weight loss, or night sweats. Appetite without changes. Ear, Nose, Mouth, Throat: Reports it is "really hard to swallow" Denies odynophagia, dyspha gunjan, or tinnitus. Cardiovascular:Reports SOB on exertion which continues. Reports chest pain has increased an d "feels like a stabbing pressure, I'm sure it's just the healing from the surgery because i t is on that same side." Denies shortness of breath, dyspnea on exertion, chest pain, palpit ations or orthopnea. Respiratory: Reports dry cough continues but has improved slightly. Denies cough, hemoptysi s, or sputum production. Gastrointestinal: Reports constipation after chemo treatment "for about 5 days". Denies abd ominal pain, constipation, diarrhea, melena, or bright red blood per rectum. Genitourinary: Denies hematuria or dysuria. Musculoskeletal: Reports tenderness around surgical site associated with the chest pain. Ne ck pain continues and is tender. Denies joint pain or tenderness. Neurologic: Reports headaches continue. Reports vision is increasingly more blurry. Numbnes s to fingertips continue due to Raynaud's disease but medications help. Denies headache, vis ual changes, or numbness/tingling of the extremities. Endocrine: Reports some occasional swelling of BLE (ankles) Denies peripheral edema or heat /cold intolerance. Hematologic: Reports easy bruising. Denies spontaneous bruising or bleeding. Integumentary: Reports redness from radiation. Denies rash, wounds or other skin concerns. Pain: Pain 12/27 today "all over". Note: F/U with labs and 3 hour treatment *MRI needs to be scheduled today from Dr. Anne My chart: Declined documented in this e ncounter Plan of Treatment +--------+ + + + + | Date | Type | Specialty | Care Team | Description | +--------+ + + + + | 04/20/ | Appointment | Radiation Oncology | Treva Ortega | | | 2019 | | | DEISY Hernandez [address] | | | | | | [address] | | | | | | [place] [address] | | | | | | [phone] | | | | | | | | +--------+ + + + + documented as of this encounter Procedures + +--------+ + + + | Procedure Name | Priori | Date/Time | Associated Diagnosis | Comments | | | ty | | | | + +--------+ + + + | CBC WITH | STAT | 03/20/2019 | Malignant neoplasm | Results for this | | DIFFERENTIAL | | 9:09 AM | of upper lobe of | procedure are in the | | | | PDT | left lung (HCC) | results section. | + +--------+ + + + | COMPREHENSIVE | STAT | 03/20/2019 | Malignant neoplasm | Results for this | | METABOLIC PANEL | | 9:09 AM | of upper lobe of | procedure are in the | | | | PDT | left lung (HCC) | results section. | + +--------+ + + + documented in this encounter Results CBC with Differential (03/20/2019 9:09 AM PDT) + + + + + + | Component | Value | Ref Range | Performed | Pathologist | | | | | At | Signature | + + + + + + | White Blood | 2.6 (L) | 4.0 - 11.0 K/uL | [facility] | | | Cells | | | [facility] | | | | | | [facility] | | | | | [facility] - | | | | | | LABORATORY | | + + + + + + | Red Blood | 2.88 (L) | 3.70 - 5.20 | [facility] | | | Cells | | M/uL | [facility] | | | | | | [facility] | | | | | | [facility] - | | | | | | LABORATORY | | + + + + + + | Hemoglobin | 8.7 (L) | 11.5 - 16.0 | [facility] | | | | | g/dL | [facility] | | | | | | [facility] | | | | | | [facility] - | | | | | | LABORATORY | | + + + + + + | Hematocrit | 26.8 (L) | 34.0 - 47.0 % | [facility] | | | | | | [facility] | | | | | | [facility] | | | | | [facility] - | | | | | | LABORATORY | | + + + + + + | MCV | 93.1 | 83.0 - 101.0 fL | [facility] | | | | | | [facility] | | | | [facility] | [facility] | | | | | [facility] - | | | | | | LAB[facility]ATORY | | + + + + + + | MCH | 30.2 | 28.0 - 35.0 pg | [facility] [...] + + + + | RDW-CV | 19.9 (H) | <15.0 % | [facility] | | | | | | [facility] | | [facility] | | | | | [facility] - | | | | | | LAB[facility]ATORY | | + + + + + + | RDW-SD | 64.7 (H) | 35.1 - 46.3 fL | [facility] | | | | | | [facility] | | | [facility] | [facility] | | | | | [facility] - | | | | | | LAB[facility]ATORY | | + + + + + + | Platelet | 198 | 140 - 440 K/uL | [facility] | | | Count | | | [facility] | | | | [facility] | [facility] | | | | | | [facility] - | | | | | | LABORATORY | | + + + + + + | MPV | 8.6 | 6.5 - 12.4 fL | [facility] | | | | | | [facility] | | | | | | [facility] | | | | | [facility] - | | | | | | LABORATORY | | + + + + + + | % | 54.7 | 45.0 - 82.0 % | [facility] | | | Neutrophils | | | [facility] | | | | | | [facility] | | | | | | [facility] - | | | | | | LABORATORY | | + + + + + + | % | 19.9 (L) | 20.0 - 45.0 % | [facility] | | | Lymphocytes | | | [facility] | | | | | | [facility] | | | | | | [facility] - | | | | | | LABORATORY | | + + + + + + | % Monocytes | 24.2 (H) | 4.0 - 12.0 % | [...] + + + + | Absolute | 1.40 (L) | 1.80 - 8.50 | [facility] | | | Neutrophils | | K/uL | [facility] | | | | | | [facility] | | | | | | [facility] - | | | | | | LABORATORY | | + + + + + + | Absolute | 0.51 (L) | 0.60 - 3.20 | [facility] | | | Lymphocytes | | K/uL | [facility] | | | | | | [facility] | | | | | | [facility] - | | | | | | LABORATORY | | + + + + + + | Absolute | 0.62 | 0.00 - 1.00 | [facility] | [...] + | [facility] | [address] | [place] | [phone] | | [facility] | | [address] | | | - LABORATORY | | | | + + + + + Comprehensive Metabolic Panel (03/20/2019 9:09 AM PDT) + + + + + + | Component | Value | Ref Range | Performed | Pathologist | | | | | At | Signature | + + + + + + | Na | 138 | 136 - 145 | [facility] | | | | | mmol/L | [facility] | | | | | | [facility] | | | | | | CENTER - | | | | | | LABORATORY | | + + + + + + | K | 3.3 (L) | 3.4 - 5.1 | [facility] | | | | | mmol/L | [facility] | | | | | | [facility] | | | | | | [facility] - | | | | | | LABORATORY | | + + + + + + | Cl | 105 | 98 - 107 mmol/L | [facility] [...] + + + + | Creatinine | 0.77 | 0.55 - 1.02 | [facility] | | | | | mg/dL | [facility] | | | | | | [facility] | | | | | | CENTER - | | | | | | LABORATORY | | + + + + + + | eGFR, | >60Comment: GLOMERULAR | >=60 | [facility] | | | non- | FILTRATION | mL/min/1.73m2 | [facility] | | | [place] | RATE,ESTIMATED | | MEDICAL | | | | mL/min/1.71l8Mhbt than | | CENTER - | | [...] + + + + | Calcium | 9.4 | 8.7 - 10.4 | [facility] | | | | | mg/dL | [facility] | | | | | | [facility] | | | | | | [facility] - | | | | | | LABORATORY | | + + + + + + | Albumin | 4.0 | 3.2 - 4.8 g/dL | [facility] | | | | | | [facility] | | | | [...] + + + + | ALT | 15 | 10 - 49 U/L | [facility] [...] + + + + | Globulin | 2.2 | 2.1 - 3.8 g/dL | [facility] [...] + + + + | BUN/Creatin | 22.1 | | [facility] | | | ine Ratio | | [...] + | [facility] | [address] | [place] | [phone] | | [facility] | | [address] | | | - LABORATORY | | | | + + + + + documented in this encounter Visit Diagnoses + + | Diagnosis | + + | Malignant neoplasm of upper lobe of left lung (HCC) - Primary | + + | Abnormal weight gain | + + | Acute respiratory distress syndrome (ARDS) (HCC) Other pulmonary insufficiency, not | | elsewhere classified, following trauma and surgery | + + | Aspiration pneumonitis (HCC) Pneumonitis due to inhalation of food or vomitus | + + | Cervicalgia | + + | Hypophosphatemia Disorders of phosphorus metabolism | + + | Hypothyroidism, unspecified type | + + | Postoperative anemia due to acute blood loss Acute posthemorrhagic anemia | + + documented in this encounter
--- OUTSIDE RECORDS SUMMARY | ~2020-03-30 | XMS | Encounter Summary ---
Demographics + + + | Address | [address] | | | [place] [address] | + + + | Home Phone | | + + + | Preferred Language | Unknown | + + + | Marital Status | Single | + + + | Jewish Affiliation | Unknown | + + + | Race | Unknown | + + + | Ethnic Group | Unknown | + + + Author + + + | Author | [facility] | | | and Jakobana | + + + | Organization | [facility] | | | and Jakobana [...] Team Providers + +------+ + | Care Proof Passer Name | Role | Phone | + [...] neoplasm of | Boubacar Daniels, | [address] | | | | | unspecified | MD [address] | [place], | | | | | part of | [place] | [place] [address] | | | | | unspecified | [address] | Phone: | | | | | bronchus or | [place], | [phone] | | | | | lung (HCC) | [place] [address] | Fax: | | | | | Procedures | Phone: | [phone] | | | | | [place] VITAMIN | [phone] | | | | | | B12 | Fax: | | | | | | INJECTION, | [phone] | | | | | | [address] [place] | | | | | | | ONDANSETRON | | | | | | | ORAL [place] | | | | | | | ORAL | | | | | | | DEXAMETHASON | | | | | | | E, .25 MG | | | | | | | TN INJ., | | | | | | | APREPITANT, | | | | | | | 1 MG TN | | | | | | | PEMETREXED | | | | | | | INJECTION, | | | | | | | 10 MG TN | | | | | | | CARBOPLATIN | | | | | | | INJECTION, | | | | | | | 50 MG TN | | | | | | | ADRENALIN | | | | | | | EPINEPHRINE | | | | | | | INJECT, .1 | | | | | | | MG TN | | | | | | | DIPHENHYDRAM | | | | | | | INE HCL | | | | | | | INJECTIO, 50 | | | | | | | MG TN | | | | | | | METHYLPREDNI | | | | | | | SOLONE | | | | | | | INJECTION, | | | | | | | 125 MG TN | | | | | | | ALBUTEROL | | | | | | | COMP CON, 1 | | | | | | | MG TN | | | | | | | ALBUTEROL | | | | | | | NON-COMP | | | | | | | CON, 1 MG | | | | | | | TN | | | | | | | INJECTION, | | | | | | | FAMOTIDINE, | | | | | | | 20 MG TN | | | | | | | NORMAL | | | | | | | SALINE | | | | | | | SOLUTION | | | | | | | INFUS, 500 | | | | | | | ML TN | | | | | | | NORMAL | | | | | | | SALINE | | | | | | | SOLUTION | | | | | | | INFUS, 250 | | | | | | | ML TN | | | | | | | STERILE | | | | | | | WATER/SALINE | | | | | | | , 10 ML TN | | | | | | | CHEMOTHER, | | | | | | | IV PUSH,EA | | | | | | | ADD DRUG TN | | | | | | | CHEMOTHER, | | | | | | | IV INFUSION, | | | | | | | 1 HR TN | | | | | | | CHEMOTHER, | | | | | | | IV INFUSION, | | | | | | | EA HR TN | | | | | | | CHEMOTHER,NO | | | | | | | N-HORMONE | | | | | | | ANTI-NEOPL, | | | | | | | SUB-Q/IM TN | | | | | | | CHEMOTHER | | | | | | | HORMON | | | | | | | ANTINEOPL | | | | | | | SUB-Q/IM TN | | | | | | | | | | | | | | PALONOSETRON | | | | | | | HCL, 25 MCG | | | +--------+--------+ + + + + Encounter Details +--------+ + + + + | Date | Type | Department | Care Team | Description | +--------+ + + + + | 04/09/ | Hospital | [facility] | Adolfo, | 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 | | | | INFUSION [address] [place] | left lung (HCC) | | | | [place], | [address] [place], [place] | (Primary Dx) | | | | [place] [address] | [address] | | | | | [phone] | | | +--------+ + + + [...] + + + | Blood Pressure | 134/78 | 04/09/2019 12:29 PM | | | | | PDT | | + + + + + | Pulse | - | - | | + + + + + | Temperature | 36.8 C (98.2 F) | 04/09/2019 12:29 PM | | | | | PDT | | + + + + + | Respiratory Rate | 16 | 04/09/2019 12:29 PM | | | | | PDT | | + + + + + | Oxygen Saturation | 98% | 04/09/2019 12:29 PM | | | | | PDT [...] encounter Progress Notes Jair Isbell RN - 04/09/2019 2:01 PM PDTPatient discharged in satisfactory condit ion. Discharged ambulatory. With family. To home. Verified that patient has antinausea medications at home. Future appointments and After Visit Summary (AVS) provided. ailee Walker RN - 04/09/2019 12:27 PM PDTE nergy level: improving Fever or chills: none Appetite: was able to eat 2 small turkey breasts- thinly sliced. Nausea and/or vomiting: none today which she is very excited about. Bowels: moving ok Numbness and tingling: none Bleeding or bruising: none Karnofsky: 80 Nurses notes: Here for hydration and pain medication. States overall she is slightly improv ed. Denies any other concerns. documented in this encounter Miscellaneous Notes Addendum Note - Jair Isbell RN - 04/09/2019 2:07 PM PDT Encounter addended by: Debbie Isbell RN on: 04/09/2019 14:07 Actions taken: MAR administration accepted documented in this encounter Plan of Treatment [...] | | | | | [place] [id number] | | | | | | [phone] | | | | | | | [...] heparin 100 units/mL flush | Given | 04/09/20 | 500 | | | | injection 500 Units 500 Units (5 | | 19 2:07 | Units | | | | mL), Intracatheter, PRN, Line | | PM PDT | | | | | Care, Starting Sun04/09/19 at | | | | | | | 1216 | | | | | | + +--------+ +-------+------+------+ +-------+ +-------+---+---+ | Given | 04/09/20 | 500 | | | | | 19 2:01 | Units | | | | | PM PDT | | | | +-------+ +-------+---+---+ +---+---+ | | | +---+---+ + +-------+ +--------+---+---+ | HYDROmorphone (DILAUDID) | Given | 04/09/20 | 0.8 mg | | | | injection 0.4-0.8 mg 0.4-0.8 mg, | | 19 2:04 | | | | | Intravenous, EVERY 1 HOUR PRN, | | PM PDT | | | | | Pain, Starting Sun04/09/19 at | | | | | | | 1216 | | | | | | + +-------+ +--------+---+---+ +-------+ +--------+---+---+ | Given | 04/09/20 | 0.8 mg | | | | | 19 12:35 | | | | | | PM PDT | | | | +-------+ +--------+---+---+ +---+---+ | | | +---+---+ + +---------+ +---+-------+---+ | sodium chloride 0.9% (NS) | New Bag | 04/09/20 | | 500 | | | infusion at 500 mL/hr, | | 19 12:26 | | mL/hr | | | Intravenous, ONCE, 04/09/19 at | | PM PDT | | | | | 1245, For 1 dose, 1000 cc ns iv | | | | | | | over 2 hours., | | | | | | + +---------+ +---+-------+---+ +---+---+ | | | +---+---+ documented in this encounter"
--- OUTSIDE RECORDS SUMMARY | ~2020-03-30 | XMS | Encounter Summary ---
Demographics + + + | Address | [address] | | | [place] [address] | + + + | Home Phone [...] + + + | Author | [facility] | | | and Jakobana | + + + | Organization | [facility] | | | and [...] Team Providers + +------+ + | Care Die Try Out Worker Name | Role | Phone | [...] | Malignant | Fiona M, | [address] | | | | | neoplasm of | MD [address] | [place], | | | | | upper lobe | [address] | [place] [address] | | | | | of left lung | [place], | Phone: | | | | | (HCC) | [place] [address] | [phone] | | | | | Procedures | Phone: | Fax: | | | | | CT Treatment | [phone] | [phone] | | | | | Plan | Fax: | | | | | | Complex CT | [phone] | | | | | | [place] PLAN | | | +--------+--------+ + + + + Evaluate & Treat (Routine) +--------+ + + + + + | Status | Reason | Specialty | Diagnoses / | Referred By | Referred To | | | | | Procedures | Contact | Contact | +--------+ + + + + + | Closed | Specialty | Dietitian / | Diagnoses | Dayana, | Alexey, | | | Services | Nutrition | Malignant | Fiona M, | Ramona Parsons, | | | Required | | neoplasm of | MD [address] | [address] | | | | | upper lobe | [address] | | | | | | of left lung | [place], | | | | | | (HCC) | [place] [address] | | | | | | | Phone: | | | | | | | [phone] | | | | | | | Fax: | | | | | | | [phone] | | +--------+ + + + + + Reason for Visit + + + | Reason | Comments | + + + | Consult | | + + + | Breast Cancer | | + + + Evaluate & [...] | | | | upper lobe | [address] | [address] | | | | | of left lung | [address] | [place], | | | | | (HCC) | [address] | [place] [address] | | | | | | [place], | Phone: | | | | | | [place] [address] | [phone] | | | | | | Phone: | Fax: | | | | | | [phone] | [phone] | | | | | | Fax: | | | | | | | [phone] | | +--------+ + + + + + Encounter Details +--------+ + + + + | Date | Type | Department | Care Team | Description | +--------+ + + + + | 02/04/ | Hospital | [facility] | Fiona Anne | Malignant neoplasm | | 2019 | Encounter | MED CTR RADIATION | MD Issa [address] | of upper lobe of | | | | ONCOLOGY CLINIC [address] | [facility] [place] | left lung (HCC) | | | | [address] | [address] | (Primary Dx) | | | | [place] [address] | | | | | | [phone] | | | +--------+ + + + [...] + + + | Blood Pressure | 131/70 | 02/04/2019 10:04 AM | | | | | PDT | | + + + + + | Pulse | 65 | 02/04/2019 10:04 AM | | | | | PDT | | + + + + + | Temperature | 36.9 C (98.4 F) | 02/04/2019 10:04 AM | | | | | PDT | | + + + + + | Respiratory Rate | 16 | 02/04/2019 10:04 AM | | | | | PDT | | + + + + + | Oxygen Saturation | 99% | 02/04/2019 10:04 AM | | | | | PDT | | + + + + + | Inhaled Oxygen | - | - | | | Concentration | | | | + + + + + | Weight | 53.9 kg (118 lb 13.3 | 02/04/2019 10:04 AM | | | | oz) | [...] encounter Progress Notes Fiona Anne MD - 02/04/2019 10:00 AM PDT Radiation Oncology Consultation Chief Complaint: Sussy Allred is a 68 y.o. female seen today as a new patient at the request of Dr. Best Mata for evaluation and consideration of radiotherapeutic treatment. The encounter diagnosis was Malignant neoplasm of upper lobe of left lung (HCC). History of Present Illness: Lung cancer (HCC) 12/04/2018 Initial Diagnosis - Presented to her PCP Lauryn Stuart PA-C in early September with supraclavicular swelli ng. - 10/09/18 Chest X-ray at [facility]: Abnormal - 10/11/18, CT Chest @ [facility]: Bilateral upper lobe spiculated masses. Left-sided mass abuts the major fissure and measures up to 2.4 cm with central necrosis. Right-sided measures up to 1.7 cm with a halo haziness, and tethers to the pleura. AP window adenopathy measuring u p to 2.1 cm, heterogeneous with mild enhancement. Suprahilar 1.5 cm necrotic lymph node. - 10/23/2018 PET/CT @ [facility]: Left upper lobe mass measures 2.2 [...] me tastatic disease. - 11/26/18 MRI Brain @[facility]: No evidence of metastatic disease. 12/04/2018 Surgery Surgeon: Manoj Kumar MD @ [facility] - EBUS bronchoscopy with biopsy of level [...] 11 L. 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 She was seen in consultation at [facility] by medical oncology, Dr. Barber and Radiation Oncology, Dr. Givens with recommendation for adjuvant chemotherapy and radiation therapy, sequentiall y. Katharina has been recovering from surgery, continues to experience some thoracotomy pain an d shortness of breath. Feels very deconditioned but is working to walk daily. Reports lala y H/A, related to chronic neck pain. MRI brain in November was negative. Frequent nausea and vomiting, most days, morning to mid day. She thinks this is related to anxiety, anticipating treatment. Vomiting makes it better. Does not seem to correlate with her H/As. Review of systems: Constitutional: Reports low energy since operation in November,, "seems like energy is ge tting worse". Reports daily nausea, onset 2 weeks ago. Reports vomiting, every couple days s meli the onset of the nausea, has not taken any anti-nausea medication. Reports decreased ap petite and weight loss of 10-12 pounds since 12/04/18 operation, per patient. Denies high fe vers, shaking chills, anorexia, or night sweats. Ear, Nose, Mouth, Throat: Reports dysphagia since surgery. Reports voice "raspiness, more h oarse." Denies odynophagia, or tinnitus. Cardiovascular: Reports shortness of breath and dyspnea on exertion since surgery, reports excessive thirst reported as well since surgery. Reports chest pain r/t to surgery, has been gradually improving. Denies palpitations or orthopnea. Respiratory: Reports ongoing dry cough, onset 12/04/18, has intensified over the last 2 week s. Denies hemoptysis, or sputum production. Gastrointestinal: Denies abdominal pain, constipation, diarrhea, melena, or bright red bloo d per rectum. Genitourinary: Denies hematuria or dysuria. Musculoskeletal: Denies joint pain or tenderness. Neurologic: Reports headaches for the last 2 weeks. Reports "feel like I am losing vision i n left eye, onset about a month ago, per patient. Denies numbness/tingling of the extremitie s. Endocrine: Denies peripheral edema or heat/cold intolerance. Hematologic: Denies spontaneous bruising or bleeding. Integumentary: Denies rash, wounds or other skin concerns. Pain: Reports pain in back of neck as well as surgical sit pain rates pain at a level of 6/ 10 for both sites, taking oxycodone QID with relief per patient. Note: Here for consult with Dr. Anne for malignant neoplasm of upper lobe of left lung. Referred by Dr. Mata. My chart: Feminine Hx P: 1 A: 0 M: 0 Menarche: 14yo 1st preyo Breastfeed: no control: hx oophorectomy, hysterectomy in 1973 HRT: takes estrogen daily PAP: yes, ~2016 MMG: yes, ~November, Pain assessment: Location: Back of neck and surgical site (left lung/ribs) Pain Level: PAIN PROG PAIN LEVEL: 6 Pain Quality: Constant Current pain regimen: oxycodone Questionnaires: Have you ever had radiation treatment: no Comments: Do you have a pacemaker or ICD: no Are you claustrophobic? yes Comments: requires pre-medication Do you have a connective tissue disorder such as Lupus, Scleroderma, or other: no Do you have the ability to become : no Current Outpatient Medications Medication Sig Dispense Refill [...] Dermatitis Latex Rash Intolerance No active intolerances/contraindications Past Medical History: Diagnosis Date Disc disease, [...] OVARY REMOVAL TONSILLECTOMY only one was removed Family History Problem Relation Age of Onset Other (see comment) Father pancreatic disease, unsure if it was cancer Macular degen Mother Social History Socioeconomic History Marital status: Single [...] file Social History Narrative Not on file Physical Exam: Vitals: 02/04/19 1004 BP: 131/70 Pulse: 65 Resp: 16 Temp: 36.9 C (98.4 F) Wt Readings from Last 3 Encounters: 02/04/19 53.9 kg (118 lb 13.3 oz) 01/30/19 53.9 kg (118 lb 13.3 oz) General: Healthy appearing thin woman in no acute medical distress. KPS: 80-90 HEENT: Pupils equal, round and reactive to light. No conjunctival icterus or injection. EOM I. Oral, moist mucus membranes. Lymphatic: No cervical, supraclavicular or axillary lymphadenopathy. Cardiovascular: Regular rate and rhythm, no murmur. Pulmonary: Breath sounds heard throughout, no adventitial sounds or increased work of breat ria at rest. Well healed thoracotomy incision with no nodularity. Extremities: Upper and lower extremities warm and well perfused with no upper or lower extr emity edema. Neurologic: Alert, oriented and appropriated in conversation. CN II-IX grossly intact. Moves all 4 extremities normally with normal gait. Psychiatric: Appropriate, anxious. Labs: Imaging: Imaging studies were directly visualized and my assessment of pertinent finding are detaile d above in the HPI. Pathology: 12/04/18 LUNG(Lung - All Specimens) SPECIMEN Procedure:Lobectomy Specimen Laterality:Left TUMOR Tumor Site:Upper lobe of lung Histologic Type:Invasive adenocarcinoma, solid predominant Other Subtypes Present:acinar Histologic Grade:G3: Poorly differentiated Spread Through Air Spaces (ROBERTO):Not identified : Tumor Size:Greatest dimension in Centimeters (cm): 3.2 Centimeters (cm) Additional Dimension in Centimeters (cm):2.2 Centimeters (cm) Additional Dimension in Centimeters (cm):2.1 Centimeters (cm) Tumor Focality:Single tumor Tumor Extent: Visceral Pleura Invasion:Present Direct Invasion of Adjacent Structures:No adjacent structures present Accessory Findings: Treatment Effect:No known presurgical therapy Lymphovascular Invasion:Present :Lymphatic :Arterial MARGINS Margins:All margins are uninvolved by tumor Margins Examined:Bronchial Margins Examined:Vascular Margins Examined:Parenchymal Distance of Invasive Carcinoma from Closest Margin in Centimeters (cm):0.2 Jamie timeters (cm) Closest Margin:Vascular LYMPH NODES Number of Lymph Nodes Involved:13 Theresa Stations Involved:3a: Pre-vascular Theresa Stations Involved:7: Subcarinal Theresa Stations Involved:4L: Lower paratracheal Theresa Stations Involved:5: Subaortic/ aortopulmonary (AP) / AP window Theresa Stations Involved:6: Para-aortic (ascending aorta or phrenic) Theresa Stations Involved:10L: Hilar Theresa Stations Involved:11L: Interlobar Extranodal Extension:Not identified Number of Lymph Nodes Examined:31 Theresa Stations Examined:4R: Lower paratracheal Theresa Stations Examined:3a: Pre-vascular Theresa Stations Examined:7: Subcarinal Theresa Stations Examined:4L: Lower paratracheal Theresa Stations Examined:5: Subaortic/ aortopulmonary (AP) / AP window Theresa Stations Examined:6: Para-aortic (ascending aorta or phrenic) Theresa Stations Examined:9L: Pulmonary ligament Theresa Stations Examined:10L: Hilar Theresa Stations Examined:11L: Interlobar PATHOLOGIC STAGE CLASSIFICATION (pTNM, AJCC 8th Edition) Primary Tumor (pT):pT2a Regional Lymph Nodes (pN):pN2 Assessment and Plan: ICD-10-CM ICD-9-CM 1. Malignant neoplasm of upper lobe of left lung (HCC) C34.12 162.3 Today, I reviewed with Katharina her clinical presentation, work-up and treatment to date as out lined above. I agree with the recommendations from [facility] for adjuvant chemotherapy and radia tion. We discussed that it is most standard to do sequential chemotherapy then radiation in the setting of R0 resection but with N2 disease. She expressed concerns about a prolonged treatment course and continued missed work. She remains otherwise healthy and would be exp ected to be able to tolerate chemoradiotherapy. The first cycle of chemotherapy is schedule d tomorrow. Taking all of these factors into account we agreed to a hybrid approach with ra diation to begin with cycle 2 of chemotherapy. In reviewing pathology the vascular margin was close at only 2 mm. Treatment will cover th e vascular and bronchial stump as well as all involved and adjacent theresa levels. Dose of 5 0 Gy over 5 weeks. IMRT/VMAT will be used to spare neighboring critical structures. The risks, benefits, logistics, and techniques of external beam irradiation for the treatme nt of this condition were discussed in detail including the process of simulation and treatm ent delivery. A detailed discussion regarding signs and symptoms of early(temporary) and la te(permanent) side effects occurred next. Sussy verbalized understanding of the treatment r ecommendation and wishes to proceed to simulation when appropriate. This will be arranged o n 02/13 to coincide with her ashanti check visit. Katharina also plans to stay in town at the [facility] during her radiation treatment. She jiménez s been working with our for arrangements. Post-operative/Pre-radiation PFT ordered. Nutrition consultation. She has been losing weight with the nausea and vomiting. Need edu cation on vegetarian high protein options and nutritional supplements. The information found at www.rtanswers.org was advised for further information specific to radiation therapy. Sussy was encouraged to call our clinic with any further questions or c oncerns. Thank you for allowing me to participate in the care of Sussy. If you should have any questions regarding this evaluation, please do not hesitate to contact me. Fiona Anne M.D. Radiation Oncologist Department of Radiation Oncology [facility] Office: [phone] documented in this encounter Plan of Treatment [...] | | | | | | [place] [address] | | | | | | [phone] | | | | | | | [...] | + +--------+ + + + | PATHOLOGY - EXTERNAL | | 02/06/2019 | | Results for this | | SCAN | | 12:00 AM | | procedure are in the | | | | PDT | | results section. | + +--------+ + + + | IMAGING REPORT - | | 10/11/2018 | | Results for this | | EXTERNAL SCAN | | 12:00 AM | | procedure are in the | | | | PST | | results section. | + +--------+ + + + | IMAGING REPORT - | | 10/11/2018 | | Results for this | | EXTERNAL SCAN | | 12:00 AM | | procedure are in the | | | | PST | | results section. | + +--------+ + + + | LABS - EXTERNAL SCAN | | 09/18/2018 | | Results for this | | | | 12:00 AM | | procedure are in the | | | | PST | | results section. | + +--------+ + + + | IMAGING REPORT - | | 10/23/2017 | | Results for this | | EXTERNAL SCAN | | 12:00 AM | | procedure are in the | | | | PST | | results section. | + +--------+ + + + documented in this encounter Results Pulmonary function test full PFT (02/14/2019 2:30 PM PDT) + + + | Narrative | Performed At | + + + | Ralph | | | MD Rayo 02/14/2019 14:31 PULMONARY FUNCTION TESTING | | | SPIROMETRY: The FVC was 2.49 L or 85 % of predicted. The FEV1 was 1.90 | | | L or 84 % of predicted. FEV1/FVC ratio was 76 %. LUNG VOLUMES: The | | | total lung capacity was 4.26 L or 84 % of predicted. The residual | | | volume was 1.76 L or 82 % of predicted. RV/TLC ratio was 97 % of | | | predicted. DIFFUSION CAPACITY: The diffusion capacity was 12.2 | | | mL/mmHg per minute or 52 % of predicted. IMPRESSION: Spirometry is | | | consistent with normal physiology. Lung volume testing is consistent | | | with normal physiology. Diffusion capacity is moderately reduced and | | | is corrected for measured hemoglobin. No prior pulmonary function | | | tests available for comparison. Test performed: | | | 2019Electronically signed by: Ralph Cade MD 02/14/2019 | | | 14:30[facility] | | | | | |IMPRESSION: Spirometry is consistent with normal physiology. Lung | | |volume testing is consistent with normal physiology. Diffusion | | |capacity is moderately reduced and is corrected for measured | | |hemoglobin. | | | | | |No prior pulmonary function tests available for comparison. | | | | | |Test performed: 2019 | | |Electronically signed by: Ralph Cade MD 02/14/2019 14:30 | | |[facility] | | + + + CT Treatment Plan Complex (2019 2:24 PM PDT) + + | Specimen | + + | | + + + + + | Narrative | Performed At | + + + | This exam has been auto-finalized and the interpretation may exist | [facility] | | elsewhere in the chart. | | + + + + +---------+ + + | Performing | Address | City/State/Zipcode | Phone Number | | Organization | | | | + +---------+ + + | [facility] | | | | + +---------+ + + PATHOLOGY - EXTERNAL SCAN (02/06/2019 12:00 AM PDT) + + + | Narrative | Performed At | + + + | Ordered by an | | | unspecified provider. | | + + + IMAGING REPORT - EXTERNAL SCAN (10/11/2018 12:00 AM PST) + + + | Narrative | Performed At | + + + | Ordered by an | | | unspecified provider. | | + + + IMAGING REPORT - EXTERNAL SCAN (10/11/2018 12:00 AM PST) + + + | Narrative | Performed At | + + + | Ordered by an | | | unspecified provider. | | + + + LABS - EXTERNAL SCAN (09/18/2018 12:00 AM PST) + + + | Narrative | Performed At | + + + | Ordered by an | | | unspecified provider. | | + + + IMAGING REPORT - EXTERNAL SCAN (10/23/2017 12:00 AM PST) + + + | [...]
--- OUTSIDE RECORDS SUMMARY | ~2020-03-30 | XMS | Encounter Summary ---
Demographics + + + | Address | [address] | | | [place] [address] | + + + | Home Phone [...] Providers + +------+ + | Care General Scrap Worker Name | Role | Phone | + +------+ + PCP | Unavailable | + +------+ + Encounter Details +--------+ + + + + | Date | Type | Department | Care Team | Description | +--------+ + + + + | 10/11/ | Hospital | Diagnostic Imaging | Manoj Kumar MD | | | 2019 | Encounter | [address] | | | | | [address] | [address] | | | | | [place], [place] | [place], [place] | | | | | [address] | [address] | | | | | | [phone] | | | | | | | [...] | | | | | | [place] [address] | | | | | | [phone] | | | | | | | | +--------+---------+ + + + | 04/30/ | Office | Otolaryngology | Augustine Nolan | | | 2019 | Visit | | MD Debbie [address] | | | | | | [address] | | | | | | [place] | | | | | | [address] | | | | | | [phone] | | | | | | | | +--------+---------+ + + + documented as of this encounter Procedures + +--------+ + + + | Procedure Name | Priori | Date/Time | Associated Diagnosis | Comments | | | ty | | | | + +--------+ + + + | OUTSIDE CHEST - READ | Routin | 10/11/2018 | Malignant neoplasm | Results for this | | REQUEST | e | 12:00 AM | of upper lobe of | procedure are in the | | | | PST | left lung (HCC) | results section. | + +--------+ + + + documented in this encounter Results OUTSIDE CHEST - READ REQUEST (10/11/2018 12:00 AM PST) + + | Specimen | + + | | + + + + + | Narrative | Performed At | + + + | EXAM: [facility] professional interpretation of outside study: OUTSIDE | [facility] | | CHEST READ DATE OF IMAGE ACQUISITION: 10/11/2018 DATE OF [facility] | RADIOLOGY VOICE | | INTERPRETATION: 12/25/2018 [...] Preliminary: Nomi Burks MD Dictation initiated: Nomi Gutierres | | Faye Burks MD 12/25/2018 4:56 PM | | + + + + + | Procedure Note | + + | 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, Radiant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 - 12/25/2018 5:51 PM PDT EXAM: [facility] | | professional interpretation of outside study: OUTSIDE CHEST READ DATE OF IMAGE | | ACQUISITION: 10/11/2018DATE OF [facility] INTERPRETATION: 12/25/2018 HISTORY: Poorly | | differentiated [...]
--- OUTSIDE RECORDS SUMMARY | ~2020-03-30 | XMS | Encounter Summary ---
Demographics + + + | Address | [address] | | | [place] [address] | + + + | Home Phone | | + + + | Preferred Language | Unknown | + + + | Marital Status | Single | + + + | Druze Affiliation | Unknown | + + + | Race | Unknown | + + + | Ethnic Group | Unknown | + + + Author + + + | Author | [facility] | | | and Jakobana | + + + | Organization | [facility] | | [...] Team Providers + +------+ + | Care Care Specialist Name | Role | Phone [...] | Malignant | Fiona M, | [address] | | | | | neoplasm of | MD [address] | [place], | | | | | upper lobe | [address] | [place] [address] | | | | | of left lung | [place], | Phone: | | | | | (HCC) | [place] [address] | [phone] | | | | | Procedures | Phone: | Fax: | | | | | CT Treatment | [phone] | [phone] | | | | | Plan | Fax: | | | | | | Complex CT | [phone] | | | | | | [place] [...] | Malignant | Fiona M, | [address] | | | | | neoplasm of | MD [address] | [place], | | | | | upper lobe | [address] | [place] [address] | | | | | of left lung | [place], | Phone: | | | | | (HCC) | [place] [address] | [phone] | | | | | Procedures | Phone: | Fax: | | | | | CT Treatment | [phone] | [phone] | | | | | Plan | Fax: | | | | | | Complex CT | [phone] | | | | | | [place] PLAN | | | +--------+--------+ + + + + Encounter Details +--------+ + + + + | Date | Type | Department | Care Team | Description | +--------+ + + + + | 02/13/ | Hospital | [facility] | Fiona Anne | Malignant neoplasm | | 2019 | Encounter | MED CTR CT [address] | MMD [address] | of upper lobe of | | | | [place], | [place], [place] | left lung (HCC) | | | | [place] [address] | [address] | | | | | [phone] | | | +--------+ + + + [...] | | | | | [place] [address] | | | | | | [phone] | | | | | | | | +--------+ + + + + documented as of this encounter Procedures + +--------+ + + + | Procedure Name | Priori | Date/Time | Associated Diagnosis | Comments | | | ty | | | | + +--------+ + + + | CT TREATMENT PLAN | Routin | 2019 | Malignant neoplasm | Results for this | | COMPLEX | e | 2:24 PM | of upper lobe of | procedure are in the | | | | PDT | left lung (HCC) | results section. | + +--------+ + + + documented in this encounter Results CT Treatment Plan Complex (2019 2:24 PM [...] iohexol (OMNIPAQUE 350) 350 | Given | 02/14/20 | 70 mLs | | | | mg/mL injection 70 mL 70 mL, | | 19 2:21 | | | | | Intravenous, ONCE PRN, Other, for | | PM PDT | | | | | imaging CT study, Starting Jenniffer | | | | | | | 02/13/19 at 1425, For 1 dose, | | | | | | | Radiology | | | | | | + +--------+ +--------+------+------+ +---+---+ | | | +---+---+ documented in this encounter"
--- OUTSIDE RECORDS SUMMARY | ~2020-03-30 | XMS | Encounter Summary ---
Demographics + + + | Address | [address] | | | [place] [address] | + + + | Home Phone [...] Team Providers + +------+ + | Care Bow Maker Name | Role | Phone | [...] | | | | | [facility] [place] [facility] | [place], [place] | | | | | [facility], | [address] | | | | | [address] | [phone] | | | | | Floor [place], [place] | | | | | | [address] | | | | | | [phone] | | | +--------+ + + + [...] | | | | | | [place] [address] | | | | | | [phone] | | | | | | | | +--------+---------+ + + + | 04/30/ | Office | Otolaryngology | Augustine Nolan | | | 2019 | Visit | | MD Debbie [address] | | | | | | [address] | | | | | | [place] | | | | | | [address] | | | | | | [phone] | | | | | | | [...]
--- OUTSIDE RECORDS SUMMARY | ~2020-03-30 | XMS | Encounter Summary ---
Demographics + + + | Address | [address] | | | [place] [address] | + + + | Home Phone | | + + + | Preferred Language | Unknown | + + + | Marital Status | Single | + + + | Rastafari Affiliation | Unknown | + + + | Race | Unknown | + + + | Ethnic Group | Unknown | + + + Author + + + | Author | and [facility] | | | and Jakobana | + + + | Organization | and [facility] | | | and Jakobana [...] Team Providers + +------+ + | Care Engine Tester Name | Role | Phone | [...] | | of left lung | [address] | [place], | | | | | (HCC) | [place], | [place] [address] | | | | | Procedures | [place] | Phone: | | | | | [address] | [address] | [phone] | | | | | | Phone: | Fax: | | | | | | [phone] | [phone] | | | | | | Fax: | | | | | | | [phone] | | +--------+--------+ + + + + Encounter Details +--------+ + + + + | Date | Type | Department | Care Team | Description | +--------+ + + + + | 04/28/ | Hospital | [facility] | Adolfo, | Malignant neoplasm | | 2019 | Encounter | [facility] | Boubacar Daniels MD [address] | of upper lobe of | | | | [facility] | [facility] | left lung (HCC) | | | | [address] [place] | [address] [place] | (Primary Dx) | | | | [place] [address] | [address] | | | | | [phone] | | | +--------+ + + + [...] + + + | Blood Pressure | 118/77 | 04/28/2019 8:29 AM | | | | | PDT | | + + + + + | Pulse | 82 | 04/28/2019 8:29 AM | | | | | PDT | | + + + + + | Temperature | 36.7 C (98.1 F) | 04/28/2019 8:29 AM | | | | | PDT | | + + + + + | Respiratory Rate | 16 | 04/28/2019 8:29 AM | | | | | PDT | | + + + + + | Oxygen Saturation | 100% | 04/28/2019 8:29 AM | | | | | PDT | | + + + + + | Inhaled Oxygen | - | - | | | Concentration | | | | + + + + + | Weight | 53 kg (116 lb 13.5 | 04/28/2019 8:29 AM | | | | oz) | PDT | | + + + + + | Height | - | - | | + + + + + | Body Mass Index | 19.47 | 01/30/2019 2:26 PM | | | [...] encounter Progress Notes Boubacar Mata MD - 04/28/2019 8:28 AM PDTFormatting of this note might be differe nt from the original. Hematology/Oncology Progress Note [place], [place] Pt. Name/Age/: Sussy Allred 69 y.o. 1950 Med. Record Number: [id number] Date of admission: 04/28/2019 The patient's primary care provider is Lauryn Stuart PA-C. Identifying Statement: Sussy Allred is a 69 y.o. female from [address] [place] [address] [place] [address] [place] [id number] with Stage IIIA poorly differentiated adenocarcinoma of [...] and hilar lymph nodes (SUZE Kumar). 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 Interval history is notable for the fact that Lenka developed grade 3 esophagitis due to her combined modality therapy. Review of systems is notable for incremental improvement in her odynophagia. Clinical exam is notable for four pound weight gain. Laboratory exam is notable for grade 3 neutropenia, grade 3 anemia, grade 3 leukopenia and grade 1 thrombocytopenia. Assessment; resolving myelosuppression and esophagitis following combined modality adjuvant treatment for stage IIIA lung cancer. Plan; continue topical duragesic at 50 mcg/hour, continue hydromorphone as needed, IV fluid s daily x 5 days. Clinical and laboratory follow up in one week. Review of Systems: Constitutional: Reports eating more, still struggling to drink enough fluids. Reports less nausea w/ prn medications. Denies high fevers, shaking chills, anorexia, or night sweats. Ear, Nose, Mouth, Throat: Reports ongoing but improving oral sores, as well as dysphagia. D enies odynophagia or tinnitus. Cardiovascular: Reports worsening shortness of breath at rest and with exertion. "Had an ep isode where I was totally out of breath." Reports chest pain ongoing, also palpitations when SOB. Denies orthopnea. Respiratory: Reports new cough, productive w/ unknown sputum characteristics. Reports recen tly being around coworkers w/ an upper respiratory infection. Denies hemoptysis. Gastrointestinal: Denies abdominal pain, constipation, diarrhea, melena, or bright red bloo d per rectum. Genitourinary: Denies hematuria or dysuria. Musculoskeletal: Denies joint pain or tenderness. Neurologic: Reports vision changes, "Looks like floaters and lines in my left eye." Started four days ago. Reports less frequent headaches. Reports intermittent numbness/tingling of t he fingers, ongoing. Denies visual changes. Endocrine: Reports bilateral ankle edema. Denies heat/cold intolerance. Hematologic: Denies spontaneous bruising or bleeding. Integumentary: Notes new "knot" to L forearm, resolving today. Denies rash, wounds or other skin concerns. Pain: Rates esophogeal pain at 8/10 currently. Note: here for labs and follow-up w/ Dr Mata My chart: Declined [...] two days after chemotherapy. 40 tablet 0 tzsxvtkwlnGOSZI-blndxbrkn-ajximzvu & magnesium hydroxide-simethicone (MAGIC MOUTHWASH) Take 5 [...] capsule three times daily 90 capsule 0 HYDROmorphone (DILAUDID) 2 mg [...] No current facility-administered medications for this encounter. Facility-Administered Medications Ordered in Other Encounters Medication Dose Route Frequency Provider Last Rate Last Dose heparin 100 units/mL flush injection 500 Units 5 mL Intracatheter PRN Boubacar richardson MD 500 Units at 04/28/19 1126 Allergies: Allergy: Allergies Allergen Reactions Ketorolac Anaphylaxis [...] Macular degen Mother Objectives: Temp: 36.7 C (98.1 F) BP: 118/77 Pulse: 82 Resp: 16 SpO2: 100 % on Min/Max Temp past 24 hours:Temp Av.7 C (98.1 F) Min: 36.7 C (98.1 F) Max: 3 6.7 C (98.1 F) No intake or output data in the 24 hours ending 04/28/19 1756 Wt. Admission: Weight: 53 kg (116 lb 13.5 oz) Wt. Current: Weight: 53 kg (116 lb 13.5 o z) Wt Readings from Last 3 Encounters: 04/28/19 53 kg (116 lb 13.5 oz) 04/22/19 51.2 kg (112 lb 14 oz) 04/14/19 55 kg (121 lb 4.1 oz) Physical Exam: General: The patient is [...] Romeo, RMarvaH., Renaldo Parish., May Avery., Turner, TMarvaE., Coral, CelsoT., Georgette, P .P.: Toxicity And [...] SUSSY ALLRED "LENKA" ( ) as of 04/28/2019 17:37 Ref. Range 04/28/2019 08:10 WBC Latest Ref Range: 4.0 - 11.0 K/uL 1.7 (LL) WBC Morphology Unknown Normal RBC COUNT Latest Ref Range: 3.70 - 5.20 M/uL 2.20 (L) Hemoglobin Latest Ref Range: 11.5 - 16.0 g/dL 7.4 (LL) Hematocrit Latest Ref Range: 34.0 - 47.0 % 21.9 (L) MCV Latest Ref Range: 83.0 - 101.0 fL 99.5 MCH Latest Ref Range: 28.0 - 35.0 pg 33.6 MCHC Latest Ref Range: 32.0 - 36.0 g/dL 33.8 RDW-CV Latest Ref Range: <15.0 % 20.6 (H) RDW-SD Latest Ref Range: 35.1 - 46.3 fL 68.5 (H) Platelet Count Latest Ref Range: 140 - 440 K/uL 88 (L) Platelet Estimate Latest Ref Range: Adequate Decreased (A) MPV Latest Ref Range: 6.5 - 12.4 fL 9.2 % nRBC Latest Ref Range: 0 - 2 per 100 WBCs 0 Absolute nRBC Latest Ref Range: 0.00 - 0.01 K/uL 0.00 Absolute Neutrophils Latest Ref Range: 1.80 - 8.50 K/uL 0.64 (L) Absolute Lymphocytes Latest Ref Range: 0.60 - 3.20 K/uL 0.55 (L) Absolute Monocytes Latest Ref Range: 0.00 - 1.00 K/uL 0.51 Absolute Eosinophils Latest Ref Range: 0.00 - 0.40 K/uL 0.02 Absolute Basophils Latest Ref Range: 0.00 - 0.10 K/uL 0.00 Absolute Immature Granulocytes Latest Ref Range: 0.00 - 0.03 K/uL 0.01 % Neutrophils Latest Ref Range: 45.0 - 82.0 % 36.9 (L) % Lymphocytes Latest Ref Range: 20.0 - 45.0 % 31.8 % Monocytes Latest Ref Range: 4.0 - 12.0 % 29.5 (H) % Eosinophils Latest Ref Range: 0.0 - 5.0 % 1.2 % Basophils Latest Ref Range: 0.0 - 1.0 % 0.0 % Immature Granulocytes Latest Ref Range: 0.0 - 0.4 % 0.6 (H) Anisocytosis Latest Ref Range: (none) Slight (A) Macrocytes Latest Ref Range: (none) Slight (A) Microcytes Latest Ref Range: (none) Slight (A) Na Latest Ref Range: 136 - 145 mmol/L 135 (L) K Latest Ref Range: 3.4 - 5.1 mmol/L 3.4 Chloride Latest Ref Range: 98 - 107 mmol/L 103 Carbon dioxide Latest Ref Range: 20 - 31 mmol/L 24 Anion Gap Latest Ref Range: 3 - 16 mmol/L 8 Glucose Latest Ref Range: 60 - 106 mg/dL 116 (H) BUN Latest Ref Range: 9 - 23 mg/dL 14 Creatinine Latest Ref Range: 0.55 - 1.02 mg/dL 0.94 BUN/Creatinine Ratio Unknown 14.9 Albumin Latest Ref Range: 3.2 - 4.8 g/dL 4.1 Albumin/Globulin Ratio Latest Ref Range: 0.8 - 1.9 1.9 Total Protein Latest Ref Range: 5.7 - 8.2 g/dL 6.3 EGFR IF NOT Latest Ref Range: >=60 mL/min/1.73m2 59 (L) Calcium Latest Ref Range: 8.7 - 10.4 mg/dL 9.4 ALK PHOS Latest Ref Range: 46 - 116 U/L 100 ALT (SGPT) (REF) Latest Ref Range: 10 - 49 U/L 16 AST (SGOT) (REF) Latest Ref Range: 0 - 34 U/L 23 Bilirubin Total (Calculated) Latest Ref Range: 0.3 - 1.2 mg/dL 0.3 Globulin Latest Ref Range: 2.1 - 3.8 g/dL 2.2 Pharmacovigilance: Palliative Care: Patient's Medications New Prescriptions No medications on file Modified Medications No medications on file Discontinued Medications No medications on file Procedure: Hydration sodium chloride 0.9% (NS) infusion Every visit Every visit at 800 mL/hr, Intravenous, ONCE, Starting when released Give 1 liter NS as needed per patient request Last released: Sun04/28/2019 Supportive Medications heparin 100 units/mL flush injection 500 Units Every visit Every visit 500 Units (5 mL), Intracatheter, PRN, Line Care, Starting when released, Until Discontinue d Last released: Sun04/28/2019 Boubacar Mata MD Portions of this chart may have been created with Noah voice recognition software. Occasi onal wrong-word or sound-alike substitutions may have occurred due to the inherent tripathi itations of voice recognition software. Please read the chart carefully and recognize, using context, where these substitutions have occurred.- documented in this encounter Miscellaneous Notes Addendum Note - Allie Gallagher RN - 04/29/2019 2:55 PM PDT Encounter addended by: Allie Gallagher RN on: 04/29/2019 14:55 Actions taken: Order Reconciliation Section accessed ssessment & Plan Note - Boubacar Mata MD - 04/28 5:43 PM PDTAssociated Problem(s): Lung cancer (HCC)Sussy Allred returned to clini c on 04/28/2019, cycle #4 day #19 of carboplatin/pemetrexed chemotherapy given concurrently wi th thoracic irradiation for adjuvant treatment of 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 Interval history is notable for the fact that Lenka developed grade 3 esophagitis due to her combined modality therapy. Review of systems is notable for incremental improvement in her odynophagia. Clinical exam is notable for four pound weight gain. Laboratory exam is notable for grade 3 neutropenia, grade 3 anemia, grade 3 leukopenia and grade 1 thrombocytopenia. Assessment; resolving myelosuppression and esophagitis following combined modality adjuvant treatment for stage IIIA lung cancer. Plan; continue topical duragesic at 50 mcg/hour, continue hydromorphone as needed, IV fluid s daily x 5 days. Clinical and laboratory follow up in one week. documented in this encounter Plan of Treatment [...] | | | | | [place] [address] | | | | | | [phone] | | | | | | | | +--------+ + + + + documented as of this encounter Procedures + +--------+ + + + | Procedure Name | Priori | Date/Time | Associated Diagnosis | Comments | | | ty | | | | + +--------+ + + + | SLIDE REVIEW, | Routin | 04/28/2019 | Malignant neoplasm | Results for this | | PERIPHERAL SMEAR | e | 8:10 AM | of upper lobe of | procedure are in the | | | | PDT | left lung (HCC) | results section. | + +--------+ + + + | CBC WITH | STAT | 04/28/2019 | Malignant neoplasm | Results for this | | DIFFERENTIAL | | 8:10 AM | of upper lobe of | procedure are in the | | | | PDT | left lung (HCC) | results section. | + +--------+ + + + | COMPREHENSIVE | STAT | 04/28/2019 | Malignant neoplasm | Results for this | | METABOLIC PANEL | | 8:10 AM | of upper lobe of | procedure are in the | | | | PDT | left lung (HCC) | results section. | + +--------+ + + + documented in this encounter Results Extra Blood Bank Tube (05/05/2019 9:10 AM PDT) + + + + + + | Component | Value | Ref Range | Performed | Pathologist | | | | | At | Signature | + + + + + + | Hold BB | Hold Specimen | | [facility] | | | | [...] + | [facility] | [address] | [place] | | | [facility] | | [address] | | | - BLOOD BANK | | | | + + + + + Lactate Dehydrogenase (05/05/2019 9:10 AM PDT) + + + + + + | Component | Value | Ref Range | Performed | Pathologist | | | | | At | Signature | + + + + + + | LDH TOTAL | 280 (H)Comment: New | 120 - 246 U/L | [facility] | | | | method in use as of | | [facility] | | | | October 16, 2018. [...] [address] | [place] | [phone] | | [facility] | | [address] | | | - LABORATORY | | [...] 13 | 9 - 23 mg/dL | [facility] | | | | | | [facility] | | | | | | [facility]ICAL | | | | | | C[facility] - | | | | | | LABORATORY | | + + + + + + | Creatinine | 0.87 | 0.55 - 1.02 | [facility] | [...] | mL/min/1.73m2 | [facility] | | | [place] | RATE,ESTIMATED | | MEDICAL | | | | mL/min/1.92p6Dpvo than | | CENTER - | | [...] + | [facility] | [address] | [place] | [phone] | | [facility] | | [address] | | | - LABORATORY | | [...] | | | Cells | | | [facility] | | [...] + + + + + | [facility] | [address] | [place] | [phone] | | [facility] | | [address] | | | - LABORATORY | | | | + + + + + Slide Review, Peripheral Smear (04/28/2019 8:10 AM PDT) + + + + + + | Component | Value | Ref Range | Performed | Pathologist | | | | | At | Signature | + + + + + + | WBC | Normal | | [facility] | | | Morphology | | | [facility] | | | | | | MEDICAL | | | | | | CENTER - | | | | | | LABORATORY | | + + + + + + | Platelet | Decreased (A) | Adequate | [facility] | | | Estimate | | | [facility] | | | | | | MEDICAL | | | | | | CENTER - | | | | | | LABORATORY | | + + + + + + | RBC | Slight (A) | (none) | [facility] | | | Microcytes | | | [facility] | | | | | | MEDICAL | | | | | | CENTER - | | | | | | LABORATORY | | + + + + + + | RBC | Slight (A) | (none) | [facility] | | | Macrocytes | | | [facility] | | | | | | MEDICAL | | | | | | CENTER - | | | | | | LABORATORY | | + + + + + + | Anisocytosi | Slight (A) | (none) | [facility] | | | s | | | [facility] | | | | | | MEDICAL | | | | | | CENTER - | | | | | | LABORATORY | | + + + + + + + + | Specimen | + + | Blood | + + + + + | Narrative | Performed At | + + + | Leukocytopenia pressent. | [facility] | | | [facility] | [facility] | | | - LABORATORY | + + + + + + + + | Performing | Address | City/State/Zipcode | Phone Number | | Organization | | | | + + + + + | [facility] | [address] | [place] | [phone] | | [facility] | | [address] | | | - LABORATORY | | | | + + + + + Comprehensive Metabolic Panel (04/28/2019 8:10 AM PDT) + + + + + [...] + + + + | K | 3.4 | 3.4 - 5.1 | [facility] | [...] + + + + | Glucose | 116 (H) | 60 - 106 mg/dL | [facility] | | | | | | [facility] | | | | | | MEDICAL | | | | | | CENTER - | | | | | | LABORATORY | | + + + + + + | BUN | 14 | 9 - 23 mg/dL | [facility] | | | | | | [facility] | | | | | | MEDICAL | | | | | | CENTER - | | | | | | LABORATORY | | + + + + + + | Creatinine | 0.94 | 0.55 - 1.02 | [facility] | | | | | mg/dL | [facility] | | | | | | MEDICAL | | | | | | CENTER - | | | | | | LABORATORY | | + + + + + + | eGFR, | 59 (L)Comment: | >=60 | [facility] | | | non- | GLOMERULAR FILTRATION | mL/min/1.73m2 | [facility] | | | [place] | RATE,ESTIMATED | | MEDICAL | | | | mL/min/1.70l6Oyqo than | | CENTER - | | [...] | 9.4 | 8.7 - 10.4 | [facility] | | | | | mg/dL | [facility] | | | | | | MEDICAL | | | | | | CENTER - | | | | | | LABORATORY | | + + + + + + | Albumin | 4.1 | 3.2 - 4.8 g/dL | [facility] [...] + + + + | Total | 6.3 | 5.7 - 8.2 g/dL | [facility] | | | Protein | | | [facility] | | | | | | MEDICAL | | | | | | CENTER - | | | | | | LABORATORY | | + + + + + + | AST | 23 | 0 - 34 U/L | [facility] [...] + + + + | Alkaline | 100 | 46 - 116 U/L | [facility] [...] + + + + | Albumin/Sophia | 1.9 | 0.8 - 1.9 | [facility] | [...] + | [facility] | [address] | [place] | [phone] | | [facility] | | [address] | | | - LABORATORY | | | | + + + + + CBC with Differential (04/28/2019 8:10 AM PDT) + + + + + + | Component | Value | Ref Range | Performed | Pathologist | | | | | At | Signature | + + + + + + | White Blood | 1.7 (LL)Comment: | 4.0 - 11.0 K/uL | [facility] | | | Cells | Critical Result called | | [facility] | | | | to and read back by | | MEDICAL | | | | Adelita Elizalde RN | | CENTER - | | | | on 04/28/2019 at 8:37 by | | LABORATORY | | | | Sona Dasilva. | | | | + + + + + + | Red Blood | 2.20 (L) | 3.70 - 5.20 | [facility] | | | Cells | | M/uL | [facility] | | | | | | MEDICAL | | | | | | CENTER - | | | | | | LABORATORY | | + + + + + + | Hemoglobin | 7.4 (LL)Comment: | 11.5 - 16.0 | [facility] | | | | Critical Result called | g/dL | [facility] | | | | to and read back by | | MEDICAL | | | | Adelita Elizalde RN | | CENTER - | | | | on 04/28/2019 at 8:38 by | | LABORATORY | | | | Sona Dasilva. | | | | + + + + + + | Hematocrit | 21.9 (L) | 34.0 - 47.0 % | [facility] | | | | | | [facility] | | | | | | MEDICAL | | | | | | CENTER - | | | | | | LABORATORY | | + + + + + + | MCV | 99.5 | 83.0 - 101.0 fL | [facility] | | | | | | [facility] | | | | | | MEDICAL | | | | | | CENTER - | | | | | | LABORATORY | | + + + + + + | MCH | 33.6 | 28.0 - 35.0 pg | [facility] | | | | | | [facility] | | | | | | MEDICAL | | | | | | CENTER - | | | | | | LABORATORY | | + + + + + + | MCHC | 33.8 | 32.0 - 36.0 | [facility] | | | | | g/dL | [facility] | | | | | | MEDICAL | | | | | | CENTER - | | | | | | LABORATORY | | + + + + + + | RDW-CV | 20.6 (H) | <15.0 % | [facility] | | | | | | [facility] | | | | | | MEDICAL | | | | | | CENTER - | | | | | | LABORATORY | | + + + + + + | RDW-SD | 68.5 (H) | 35.1 - 46.3 fL | [facility] | | | | | [facility] | | | | | | MEDICAL | | | | | | CENTER - | | | | | | LABORATORY | | + + + + + + | Platelet | 88 (L) | 140 - 440 K/uL | [facility] | | | Count | | | [facility] | | | | | | MEDICAL | | | | | | CENTER - | | | | | | LABORATORY | | + + + + + + | MPV | 9.2 | 6.5 - 12.4 fL | [facility] | | | | | | [facility] | | | | | | MEDICAL | | | | | | CENTER - | | | | | | LABORATORY | | + + + + + + | % | 36.9 (L) | 45.0 - 82.0 % | [facility] | | | Neutrophils | | | [facility] | | | | | | MEDICAL | | | | | | CENTER - | | | | | | LABORATORY | | + + + + + + | % | 31.8 | 20.0 - 45.0 % | [facility] | | | Lymphocytes | | | [facility] | | | | | | MEDICAL | | | | | | CENTER - | | | | | | LABORATORY | | + + + + + + | % Monocytes | 29.5 (H) | 4.0 - 12.0 % | [facility] | | | | | | [facility] | | | | | | MEDICAL | | | | | | CENTER - | | | | | | LABORATORY | | + + + + + + | % | 1.2 | 0.0 - 5.0 % | [facility] [...] + + + + | Absolute | 0.64 (L) | 1.80 - 8.50 | [facility] | | | Neutrophils | | K/uL | [facility] | | | | | | MEDICAL | | | | | | CENTER - | | | | | | LABORATORY | | + + + + + + | Absolute | 0.55 (L) | 0.60 - 3.20 | [facility] | | | Lymphocytes | | K/uL | [facility] | | | | | | MEDICAL | | | | | | CENTER - | | | | | | LABORATORY | | + + + + + + | Absolute | 0.51 | 0.00 - 1.00 | [facility] | [...] | Basophils | | K/uL | [facility] | | | | | | MEDICAL | | | | | | CENTER - | | | | | | LABORATORY | | + + + + + + | Absolute | 0.01 | 0.00 - 0.03 | [facility] | | | Immature | | K/uL | [facility] | | | Granulocyte | | | MEDICAL | | | s | | | CENTER - | | | | | | LABORATORY | | + + + + + + | % nRBC | 0 | 0 - 2 per 100 | [facility] | | | | | WBCs | [facility] | | | | [...] [facility] | [address] | [place], [place] | [phone] | | [facility] | | [address] | | | - LABORATORY | | | | + + + + + documented in this encounter Visit Diagnoses + + | Diagnosis | + + | Malignant neoplasm of upper lobe of left lung (HCC) - Primary | + + documented in this encounter
--- OUTSIDE RECORDS SUMMARY | ~2020-03-30 | XMS | Encounter Summary ---
Demographics + + + | Address | [address] | | | [place] [address] | + + + | Home Phone | | + + + | Preferred Language | Unknown | + + + | Marital Status | Single | + + + | Evangelical Affiliation | Unknown | + + + | Race | Unknown | + + + | Ethnic Group | Unknown | + + + Author + + + | Author | [facility] | | | and Jakobana | + + + | Organization | [facility] | | | and [...] Team Providers + +------+ + | Care Breaker Up Machine Operator Name | Role | Phone [...] | | [address] | [place] [address] | | | | | [place] [address] | | | | | | [phone] | | | +--------+ + + + [...] | | | | | [place] [address] | | | | | | [phone] | | | | | | | [...]
--- OUTSIDE RECORDS SUMMARY | ~2020-03-30 | XMS | Encounter Summary ---
Demographics + + + | Address | [address] | | | [place] [address] | + + + | Home Phone | | + + + | Preferred Language | Unknown | + + + | Marital Status | Single | + + + | Confucianism Affiliation | NRP | + + + [...] Team Providers + +------+ + | Care Circulating Process Inspector Name | Role | Phone | + [...] floor | | | | | | [place], [place] | | | | | | [address] | | | +--------+ + + + [...] | | 2019 | Visit | | [address] | | | | | | [place]ania [place], | | | | | | [place] [address] | | | | | | [phone] | | | | | | | | +--------+---------+ + + + | 04/30/ | Office | Otolaryngology | Augustine Nolan | | | 2019 | Visit | | MD Debbie [address] | | | | | | [address] | | | | | | [place], [place] | | | | | | [address] | | | | | | [phone] | | | | | | | | +--------+---------+ + + + documented as of this encounter Visit Diagnoses Not on filedocumented in this encounter
--- OUTSIDE RECORDS SUMMARY | ~2020-03-30 | XMS | Encounter Summary ---
Demographics + + + | Address | [address] | | | [place] [address] | + + + | Home Phone [...] + + + | Author | [facility] | | | and Jakobana | + + + | Organization | [facility] | | | and [...] Team Providers + +------+ + | Care Fire Sprinkler Inspector Name | Role | Phone | [...] | [facility] | MD Marli [address] | | | | | IMAGING [address] | [address] | | | | | [address] [place] | [place] [address] | | | | | [place] [address] | | | | | | [phone] | | | +--------+ + + + [...] | | | | | [place] [address] | | | | | | [phone] | | | | | | | [...]
--- OUTSIDE RECORDS SUMMARY | ~2020-03-30 | XMS | Encounter Summary ---
Demographics + + + | Address | [address] | | | [place] [address] | + + + | Home Phone [...] Team Providers + +------+ + | Care Prosthetic Aide Name | Role | Phone | + [...] | | | | | [facility] | [place], [place] | | | | | [facility], | [address] | | | | | [address] | [phone] | | | | | Floor [place], [place] | | | | | | [address] | | | | | | [phone] | | | +--------+ + + + [...] | | | | | | [place] [address] | | | | | | [phone] | | | | | | | | +--------+---------+ + + + | 04/30/ | Office | Otolaryngology | Augustine Nolan | | | 2019 | Visit | | MD Debbie [address] | | | | | | [address] | | | | | | [place] | | | | | | [address] | | | | | | [phone] | | | | | | | [...]
--- OUTSIDE RECORDS SUMMARY | ~2020-03-30 | XMS | Encounter Summary ---
Demographics + + + | Address | [address] | | | [place] [address] | + + + | Home Phone | | + + + | Preferred Language | Unknown | + + + | Marital Status | Single | + + + | Anabaptism Affiliation | Unknown | + + + | Race | Unknown | + + + | Ethnic Group | Unknown | + + + Author + + + | Author | [facility] | | | and Jakobana | + + + | Organization | [facility] | | | and Jakobana | + + + | Address | Unknown | + + + | Phone | Unavailable | + + + Support + + +---------+ + | Name | Relationship | Address | Phone | + + +---------+ + | Lauar Allred | ECON | Unknown | | + + +---------+ + Care Team Providers + +------+ + | Care Military Professional Name | Role | Phone | + +------+ + | Lauryn Stuart PA-C | PCP | | + +------+ + Encounter Details +--------+ + + + + | Date | Type | Department | Care Team | Description | +--------+ + + + + | 03/14/ | Imaging | [facility] | Provider, | | | 2019 | Exam | [facility] | MD Marli [address] | | | | | IMAGING [address] | [address] | | | | | [address] [place] | [place] [address] | | | | | [place] [address] | | | | | | [phone] | | | +--------+ + + + [...] | | | | | [place] [address] | | | | | | [phone] | | | | | | | [...] | | WO CONTRAST | e | 12:00 AM | | procedure are in the | | | | PST | | results section. | + +--------+ + + + documented in this encounter Results MRI Cervical Spine wo Contrast (08/10/2015 12:00 AM PST) + + | Specimen [...]
--- OUTSIDE RECORDS SUMMARY | ~2020-03-30 | XMS | Encounter Summary ---
Demographics + + + | Address | [address] | | | [place] [address] | + + + | Home Phone | | + + + | Preferred Language | Unknown | + + + | Marital Status | Single | + + + | Mu-Ism Affiliation | Unknown | + + + | Race | Unknown | + + + | Ethnic Group | Unknown | + + + Author + + + | Author | [facility] | | | and Jakobana | + + + | Organization | [facility] | | | and Jakobana [...] Team Providers + +------+ + | Care Public Safety Police Name | Role | Phone | + +------+ + | Lauryn Stuart PA-C | PCP | | + +------+ + Reason for Visit + + + | Reason | Comments | + + + | Follow-up | | + + + Encounter Details +--------+ + + + + | Date | Type | Department | Care Team | Description | +--------+ + + + + | 09/15/ | Hospital | [facility] | Adolfo, | Malignant neoplasm | | 2020 | Encounter | MED CTR MEDICAL | Boubacar Daniels MD [address] | of lung, unspecified | | | | ONCOLOGY CLINIC [address] | [address] [facility] [place] | laterality, | | | | [address] [place] | [address] [place], [place] | unspecified part of | | | | [place] [address] | [address] | lung (HCC) | | | | [phone] | | | +--------+ + + + [...] + + + | Blood Pressure | 148/84 | 09/15/2019 9:24 AM | | | | | PST | | + + + + + | Pulse | 86 | 09/15/2019 9:24 AM | | | | | PST | | + + + + + | Temperature | 36.4 C (97.5 F) | 09/15/2019 9:24 AM | | | | | PST | | + + + + + | Respiratory Rate | 22 | 09/15/2019 9:24 AM | | | | | PST | | + + + + + | Oxygen Saturation | 95% | 09/15/2019 9:24 AM | | | | | PST | | + + + + + | Inhaled Oxygen | - | - | | | Concentration | | | | + + + + + | Weight | 54.3 kg (119 lb 11.4 | 09/15/2019 9:24 AM | | | | oz) | [...] patch onto | 10 | 0 | 09/11/19 | | | (DURAGESIC) 50 | the [...] to two | 180 | 0 | 09/11/19 | | | HYDROcodone-acetamin | tablets orally [...] encounter Progress Notes Boubacar Mata MD - 09/15/2019 9:20 AM PSTFormatting of this note might be differe nt from the original. Hematology/Oncology Progress Note [facility] [place] Pt. Name/Age/: Sussy Allred 69 y.o. 1950 Med. Record Number: [id number] Date of admission: 09/15/2019 The patient's primary care provider is Lauryn Stuart PA-C. Identifying Statement: Sussy Allred is a 69 y.o. female from [address] [place] [address] with Stage IIIA poorly differentiated adenocarcinoma of [...] nodes (SUZE Kumar). Patholog ica specimen # [id number] was notable for a poorly differentiated adenocarcinoma, [...] for local recurrence or metastatic diseas e. Current Assessment & Plan Sussy Allred returned to clinic alone on 09/15/2019 with the chief complaint of dyspne a. Interval history is notable for the fact that Dr. Anne had Katharina undergo a CT scan of the chest on July 03, 2019 that was interpreted as demonstrating radiation pneumonitis and started Katharina on prednisone at that time with a tapering schedule. Katharina is currently on 10 mg orally daily and has 7 days left on the taper. 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 Review of systems is notable for a two month history of dyspnea. Dyspnea occurs both at res t and with exertion and is exacerbated with talking. She also complains of non-productive cough, odynophagia, and swelling in the supraclavicula r fossae, bilaterally. Clinical exam is notable for hoarseness. Lung logan are clear to auscultation. The sense o f fullness, bilaterally, is clinically associated with soft tissue swelling in the supraclav icular fossae, potentially due to use of prednisone. 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 Left vocal cord paralysis. Post-thoracotomy pain syndrome. Plans: This was an extended, 25 minute office encounter with Katharina where I shared with her my opini on that her dyspnea is related to her left vocal cord paralysis. During the encounter, I con sulted Dr. Nolan at [facility] otolaryngology, who had previously evaluated Katharina for this comp laint, and agreed to see her again for consideration of thyroplasty. Katharina agrees to see Dr. Nolan in [place] for evaluation of thyroplasty to alleviate her dyspnea. I am addressing her post-thoracotomy pain syndrome by supervising Katharina's narcotic prescribi ng. She will continue with topical fentanyl at 50 micrograms/hour. I am providing monthly fi lls of her Ralston 7.5/325 mg tablets with a slowly tapering schedule with each fill, currentl y #180 for 30 days; next fill #150 for 30 days, then #120 for 30 days, then #90 for 30 days, then #60 for 30 days, the #30 for 30 days then stop. Topical fentanyl will then be tapered off. She will keep her regularly scheduled appointment with me on October 14, [address] Estes on December 24, 2019. Review of Systems: Constitutional: Pt reports fatigue. Pt reports ongoing nightly night sweats, as well as swe ats during the day. Denies high fevers, shaking chills, anorexia, nausea, vomiting, or weigh t loss. Reports trying to gain weight. Appetite without changes. Ear, Nose, Mouth, Throat: Notes worsened cervical neck swelling, bilaterally. More noticeab le over the last two weeks. Reports L ear "popping," x1 episode and none since. Reports "bum ps" on the inside of lower lip. Denies dysphagia, odynophagia or tinnitus. Cardiovascular: Pt reports worsened SOB and WILLIS. Pt reports superficial chest pain, "like s omebody socked me." Reports heart palpitations w/ labored breathing. Denies orthopnea. Respiratory: Pt reports worsening non-productive cough. More noticeable over the past week. Denies hemoptysis or sputum production. Gastrointestinal: Denies abdominal pain, diarrhea, constipation, melena, or bright red bloo d per rectum. Genitourinary: Denies hematuria or dysuria. Musculoskeletal: Denies joint pain or tenderness. Neurologic: Reports frequent headaches. Pt reports ongoing numbness/tingling of the hands a nd feet. Denies visual changes. Endocrine: Denies peripheral edema or heat/cold intolerance. Hematologic: Denies spontaneous bruising or bleeding. Bruises easily. Integumentary: Denies rash, wounds or other skin concerns. Pain: Pt reports superficial chest pain, "like somebody socked me." Reports frequent headac hes. Managing w/ fentanyl and Ralston Note: here for follow-up w/ Dr Mata [...] for pain, maximum 6 tablets a day. 180 tablet 0 lansoprazole [...] the right eye 4 ti mes daily. predniSONE (DELTASONE) 10 mg tablet Take 4 tabs by mouth daily for 1 week, then take 3 tabs for 1wk, then take 2 tabs for 1 week, then take 1 tab daily for 1 wk., then stop 70 tab let 0 No current facility-administered medications for this encounter. [...] Last attempt to quit: 08/20/2011 Years since quittin.0 Smokeless tobacco: Never Used Substance and Sexual [...] file Gets together: Not on file Attends rastafari service: Not on file Active member of [...] left side Vocal cord paralysis HTN (hypertension) Anemia due to chemotherapy Family History Problem Relation Age of Onset Other (see comment) Father pancreatic disease, unsure if it was cancer Macular degen Mother Objectives: Temp: 36.4 C (97.5 F) BP: 148/84 Pulse: 86 Resp: 22 SpO2: 95 % on Min/Max Temp past 24 hours:No data recorded No intake or output data in the 24 hours ending 09/22/19 0424 Wt. Admission: Weight: 54.3 kg (119 lb 11.4 oz) Wt. Current: Weight: 54.3 kg (119 lb 11 .4 oz) Wt Readings from Last 3 Encounters: 09/15/19 54.3 kg (119 lb 11.4 oz) 08/25/19 52.8 kg (116 lb 6.5 oz) 11/26/19 52.9 kg (116 lb 10 oz) Physical Exam: General: The patient is [...] of steroids. Neurological: Face symmetric, voice is hoarse. Station and gait are without deficit. Muscular/Skeletal: No acute bony tenderness. No evidence of sarcopenia. Psychiatric: Normal mood and affect. Calm and appropriate. ECOG Performance Status [] 0 [x] 1 [...] Lopez., Romeo, RMarvaH., Renaldo Parish., May Avery., Turner TBritni., Coral, E.T., Georgette, P .P.: Toxicity [...] this chart may have been created with [employer]ak[employer] voice recognition software. Occasi onal wrong-word or sound-alike substitutions may have occurred due to the inherent tripathi itations of voice recognition software. Please read the chart carefully and recognize, using context, where these substitutions have occurred. documented in this encounter Miscellaneous Notes Assessment & Plan Note - Boubacar Mata MD - 09/22/2019 4:03 AM PSTAssociated Prob kati(s): Lung cancer (HCC)Sussy Allred returned to clinic alone on 09/15/2019 with the chi complaint of dyspnea. Interval history is notable for the fact that Dr. Anne had Katharina undergo a CT scan of the chest on July 03, 2019 that was interpreted as demonstrating radiation pneumonitis and started Katharina on prednisone at that time with a tapering schedule. Katharina is currently on 10 mg orally daily and has 7 days left on the taper. 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 Review of systems is notable for a two month history of dyspnea. Dyspnea occurs both at res t and with exertion and is exacerbated with talking. She also complains of non-productive cough, odynophagia, and swelling in the supraclavicula r fossae, bilaterally. Clinical exam is notable for hoarseness. Lung logan are clear to auscultation. The sense o f fullness, bilaterally, is clinically associated with soft tissue swelling in the supraclav icular fossae, potentially due to use of prednisone. 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 Left vocal cord paralysis. Post-thoracotomy pain syndrome. Plans: This was an extended, 25 minute office encounter with Katharina where I shared with her my opini on that her dyspnea is related to her left vocal cord paralysis. During the encounter, I con sulted Dr. Nolan at [facility] otolaryngology, who had previously evaluated Katharina for this comp laint, and agreed to see her again for consideration of thyroplasty. Katharina agrees to see Dr. Nolan in [place] for evaluation of thyroplasty to alleviate her dyspnea. I am addressing her post-thoracotomy pain syndrome by supervising Katharina's narcotic germaniai dipika. She will continue with topical fentanyl at 50 micrograms/hour. I am providing monthly fi lls of her Ralston 7.5/325 mg tablets with a slowly tapering schedule with each fill, currentl y #180 for 30 days; next fill #150 for 30 days, then #120 for 30 days, then #90 for 30 days, then #60 for 30 days, the #30 for 30 days then stop. Topical fentanyl will then be tapered off. She will keep her regularly scheduled appointment with me on October 14, [address] Estes on December 24, 2019. 4:2 4 AM PSTdocumented in this encounter Plan of Treatment +--------+ + + + + | Date | Type | Specialty | Care Team | Description | +--------+ + + + + | 04/20/ | Appointment | Radiation Oncology | Treva Ortega | | | 2019 | | | David, SHIPPING ROOM HELPER [address] | | | | | | [address] | | | | | | [place] [address] | | | | | | [phone] | | | | | | | | +--------+ + + + + documented as of this encounter Visit Diagnoses + + | Diagnosis | + + | Malignant neoplasm of lung, unspecified laterality, unspecified part of lung (HCC) | + + documented in this encounter
--- OUTSIDE RECORDS SUMMARY | ~2020-03-30 | XMS | Encounter Summary ---
Demographics + + + | Address | [address] | | | [place] [address] | + + + | Home Phone [...] Team Providers + +------+ + | Care Blending Line Attendant Name | Role | Phone | + [...] | | | 2020 | Event | [facility] | MD Leonor [address] | | | | | and Healing Surgery | [address] | | | | | Center Admitting | [place], [place] | | | | | Desk Located on the | [address] | | | | | 4th floor [address] | [phone] | | | | | [place], | | | | | | [place] [address] | Rehana Nuñez, | | | | | | NIK [address] | | | | | | [address] | | | | | | [place], [place] | | | | | | [address] | | | | | | [phone] | | | | | | | [...] | | | | | [address] [place], | | | | | | [place] [address] | | | | | | [phone] | | | | | | | | +--------+---------+ + + + | 04/30/ | Office | Otolaryngology | Augustine Nolan | | | 2019 | Visit | | MD Debbie [address] | | | | | | [address] | | | | | | [place], [place] | | | | | | [address] | | | | | | [phone] | | | | | | | [...]
--- OUTSIDE RECORDS SUMMARY | ~2020-03-30 | XMS | Encounter Summary ---
Demographics + + + | Address | [address] | | | [place] [address] | + + + | Home Phone | | + + + | Preferred Language | Unknown | + + + | Marital Status | Single | + + + | Anabaptism Affiliation | Unknown | + + + | Race | Unknown | + + + | Ethnic Group | Unknown | + + + Author + + + | Author | [facility] | | | and Jakobana | + + + | Organization | [facility] | | | and Jakobana [...] Team Providers + +------+ + | Care Classer Name | Role | Phone | + +------+ + | Lauryn Stuart PA-C | PCP | | + +------+ + Encounter Details +--------+ + + + + | Date | Type | Department | Care Team | Description | +--------+ + + + + | 02/22/ | Hospital | [facility] | Fiona Anne | | | 2019 | Encounter | MED CTR RADIATION | MD Issa [address] | | | | | ONCOLOGY [address] | [place] | | | | | [place], | [address] | | | | | [place] [address] | | | | | | [phone] | | | +--------+ + + + [...] | | | | | [place] [address] | | | | | | [phone] | | | | | | | | +--------+ + + + + documented as of this encounter Visit Diagnoses Not on filedocumented in this encounter"
--- OUTSIDE RECORDS SUMMARY | ~2020-03-30 | XMS | Encounter Summary ---
Demographics + + + | Address | [address] | | | [place] [address] | + + + | Home Phone | | + + + | Preferred Language | Unknown | + + + | Marital Status | Single | + + + | Oriental Orthodox Affiliation | Unknown | + + + | Race | Unknown | + + + | Ethnic Group | Unknown | + + + Author + + + | Author | [facility] | | | and Jakobana | + + + | Organization | [facility] | | | and Jakobana [...] Team Providers + +------+ + | Care Mission Support Specialist Name | Role | Phone | + +------+ + | Lauryn Stuart PA-C | PCP | | + +------+ + Reason for Visit Evaluate & Treat (Routine) +--------+ + + [...] | | | | upper lobe | [address] | | | | | of left lung | [address] | [place], | | | | | ([facility]) | [address] | [place] [address] | | | | | | [place], | Phone: | | | | | | [place] [address] | [phone] | | | | | | Phone: | Fax: | | | | | | [phone] | [phone] | | | | | | Fax: | | | | | | | [phone] | | +--------+ + + + + + Encounter Details +--------+ + + + + | Date | Type | Department | Care Team | Description | +--------+ + + + + | 02/04/ | Hospital | [facility] | Fiona Anne | | | 2019 | Encounter | MED CTR RADIATION | MD Issa [address] | | | | | ONCOLOGY [address] | [place] | | | | | [place], | [address] | | | | | [place] [address] | | | | | | [phone] | | | +--------+ + + + [...] | | | | | [place] [address] | | | | | | [phone] | | | | | | | | +--------+ + + + + documented as of this encounter Visit Diagnoses Not on filedocumented in this encounter"
--- OUTSIDE RECORDS SUMMARY | ~2020-03-30 | XMS | Encounter Summary ---
Demographics + + + | Address | [address] | | | [place] [address] | + + + | Home Phone | | + + + | Preferred Language | Unknown | + + + | Marital Status | Single | + + + | Sabianism Affiliation | Unknown | + + + | Race | Unknown | + + + | Ethnic Group | Unknown | + + + Author + + + | Author | [facility] | | | and Jakobana | + + + | Organization | [facility] | [...] Team Providers + +------+ + | Care Claims Clerk Name | Role | Phone | [...] neoplasm of | Boubacar Daniels, | [address] | | | | | unspecified | MD [address] | [place], | | | | | part of | [facility] | [place] [address] | | | | | unspecified | [address] | Phone: | | | | | bronchus or | [place], | [phone] | | | | | lung (HCC) | [place] [address] | Fax: | | | | | Procedures | Phone: | [phone] | | | | | PA VITAMIN | [phone] | | | | | | B12 | Fax: | | | | | | INJECTION, | [phone] | | | | | | [address] [...] | +--------+ + + + + | 04/14/ | Hospital | [facility] | Adolfo, | 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 | | | | INFUSION [address] [place] | left lung (HCC) | | | | [place], | [address] [place], [place] | (Primary Dx) | | | | [place] [address] | [address] | | | | | [phone] | | | +--------+ + + + [...] one tablet | 40 | 0 | 06/13/20 | | | (DECADRON) 4 mg | [...] encounter Progress Notes Bailee Walker RN - 04/14/2019 3:35 PM PDTPatient comes in because IV is really hurti ng her, she states that it has been hurting since being imaging for MRI. She would like it t aken out, she will return tomorrow to for fluids and will get a new IV then. She is discharg ed home in stable condition alone. andaTawny pearson RN - 04/14/2019 2:25 PM PDTDc/d amb to imaging for mri. Will return tomorrow. Electronica lly signed by Tawny Thomas RN at 04/14/2019 2:38 PM PDTdocumented in this encounter Miscellaneous Notes Addendum Note - Bailee Walker RN - 04/14/2019 3:36 PM PDT Encounter addended by: Charly Walker RN on: 04/14/2019 15:36 Actions taken: LDA properties accepted, Flowsheet accepted, Sign clinical note Electronic ally signed by Bailee Walker RN at 04/14/2019 3:36 PM PDTdocumented in this encounter Plan of [...] | | | | | [place] [address] | | | | | | [phone] | | | | | | | [...] chloride 0.9% (NS) | New Bag | 04/14/20 | 1,000 | 500 | | | infusion at 500 mL/hr, | | 19 12:53 | mLs | mL/hr | | | Intravenous, ONCE, 04/14/19 at | | PM PDT | | | | | 1230, For 1 dose, 1000 cc ns iv | | | | | | | over 2 hours., | | | | | | + +---------+ +--------+-------+------+ +---+---+ | | | +---+---+ documented in this encounter"
--- OUTSIDE RECORDS SUMMARY | ~2020-03-30 | XMS | Encounter Summary ---
Demographics + + + | Address | [address] | | | [place] [address] | + + + | Home Phone [...] Team Providers + +------+ + | Care Accounts Payable Or Receivable Clerk Name | Role | Phone | [...] | | | | | | [place], | | | | | | | [place] | | | | | | | [address] | | | | | | | Phone: | | | | | | | [phone] | | | | | | | Fax: | | | | | | | [phone] | +--------+--------+ + + + + Encounter Details +--------+---------+ + + + | Date | Type | Department | Care Team | Description | +--------+---------+ + + + | 01/24/ | Office | Otolaryngology | Augustine Nolan | Paralysis of left | | 2019 | Visit | Laryngology Services | MD Debbie [address] | vocal fold (Primary | | | | at [facility] [address] | [address] | Dx); Dysphonia; | | | | [facility] | [place], [place] | Pharyngeal | | | | [facility] and Healing, | [address] | dysphagia; Non-small | | | | Building [address] | [phone] | cell carcinoma of | | | | [place], [place] | | lung (HCC) | | | | [address] | | | | | | [phone] | | | +--------+---------+ + + + [...] 9:30 AM PDT PATIENT: Sussy Allred MR#: [id number] : 1950 REQUESTING PROVIDER: Manoj Kumar MD [address] [place] [address] PRIMARY CARE PROVIDER: MALLIKA [place] CLINIC: [facility] CHIEF COMPLAINT: Chief Complaint Patient presents with New Patient Visit HPI: Sussy Allred is a 69 y.o. female who presents to the [facility] Vo ice and Swallowing with difficulty [...] planning to begin chemotherapy next week in [place] or [place]. She is not sure if she will be proceeding with radiation therapy but thinks she may be. She remains quite t roubled by her voice, but her swallowing has improved some. Dr. 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 She lives in [place], [place] She does have children. She does not have supportive friends or family members in the [facility]. FAMILY HX: Family History Problem Relation No [...] and symmetric throughout. The pupils are equal. Jet Dyeing Machine Tender strength does jameel ear full bilaterally. Facial [...] and benefits of the procedure and [facility], Ms. Allred was brought to the [...] 1.7 cc of sterile saline to the fiberglasser's inst ructions. This was loaded into a [...] team. I will see her back in [facility] 3 months, or sooner if symptoms worsen. Augustine Nolan M.D. Beer Still Runner Compounder Laryngology and Head & Neck Surgery Chas Martinez MA - 01/24/2019 9:30 AM PDTLaryngoscopy procedure was performed using e following instruments: Description #1: Flexible Rhino Serial ID #1: [id number] Chas Gibson MA - 01/24/2019 9:30 AM PDTLaryngoscopy procedure was performed using the following instrum ents: Description #1: Flexible Rhino Serial ID #1: [id number] documented in this encounter Plan of Treatment [...] | | | | | | [place] [address] | | | | | | [phone] | | | | | | | | +--------+---------+ + + + | 04/30/ | Office | Otolaryngology | Augustine Nolan | | | 2019 | Visit | | MD Debbie [address] | | | | | | [address] | | | | | | [place], [place] | | | | | | [address] | | | | | | [phone] | | | | | | | | +--------+---------+ + + + documented as of this encounter Procedures + +--------+ + + + | Procedure Name | Priori | Date/Time | Associated Diagnosis | Comments | | | ty | | | | + +--------+ + + + | [place] | Routin | 02/22/2019 | Paralysis of [...] | + +--------+ + + + | [place] | Routin | 02/22/2019 | Paralysis of [...]
--- OUTSIDE RECORDS SUMMARY | ~2020-03-30 | XMS | Encounter Summary ---
Demographics + + + | Address | [address] | | | [place] [address] | + + + | Home Phone [...] Providers + +------+ + | Care Clinical Data Manager Name | Role | Phone | + +------+ + | Lauryn Stuart | PCP | | + +------+ + Reason for Referral Consult to [place] (Routine) +--------+--------+ + + + + | Status | Reason | Specialty | Diagnoses / | Referred By | Referred To | | | | | Procedures | Contact | Contact | +--------+--------+ + + + + | Closed | | Thoracic | Diagnoses | Jt, | Cts Adult | | | | Surgery | Neoplasm | CARLO Allen | Thoracic Ppv | | | | | Procedures | [address] | [address] | | | | | REQUEST TO | Ave | [address] | | | | | SURGERY | [place], [place] | Physician's | | | | | FILM TESTS CHECKER | [address] | Pavilion, | | | | | | Phone: | 2nd floor | | | | | | [phone] | [facility] [place] | | | | | | Fax: | [address] | | | | | | [phone] | Phone: | | | | | | | [phone] | | | | | | | Fax: | | | | | | | [phone] | +--------+--------+ + + + + Diagnostic Testing (Routine) +--------+--------+ + + + + | Status | Reason | Specialty | Diagnoses / | Referred By | Referred To | | | | | Procedures | Contact | Contact | +--------+--------+ + + + + | Closed | | Cardiology | Diagnoses | Werle, | Car Echo | | | | | Neoplasm | CARLO Allen | [facility] [address] | | | | | Procedures | [address] | [address] | | | | | STRESS | Ave | [address] | | | | | DOBUTAMINE | [place], [place] | [place] | | | | | ECHOCARDIOGR | [address] | Building, 2nd | | | | | AM, ADULT | Phone: | floor | | | | | | [phone] | [place], [place] | | | | | | Fax: | [address] | | | | | | [phone] | Phone: | | | | | | | [phone] | +--------+--------+ + + + + Diagnostic [...] | MRI BRAIN | Ave | [facility] | | | | | WWO CONTRAST | [place], [place] | [facility] and | | | | | [place] MRI | [address] | Healing, | | | | | BRAIN COMBO | Phone: | Building 1, | | | | | | [phone] | 3rd Floor | | | | | | Fax: | [place], [place] | | | | | | [phone] | [address] | | | | | | | Phone: | | | | | | | [phone] | | | | | | | Fax: | | | | | | | [phone] | +--------+--------+ + + + + Reason for Visit + + + | Reason | Comments | + + + | New patient | | | consultation | | + + + Consultation (Routine) [...] [address] | | | | | SURGERY - | Rd | Rd [place], | | | | | CARDIOTHORAC | [place], [place] | [place] | | | | | IC | [address] | [address] | | | | | | Phone: | Phone: | | | | | | [phone] | [phone] | | | | | | Fax: | Fax: | | | | | | [phone] | [phone] | +--------+--------+ + + + + Encounter Details +--------+---------+ + + + | Date | Type | Department | Care Team | Description | +--------+---------+ + + + | 11/22/ | Office | Cardiothoracic | Manoj Kumar MD | Neoplasm (Primary | | 2019 | Visit | Surgery at [facility] | [address] | Dx) | | | | [address] | [address] | | | | | [facility] | [place], [place] | | | | | and Healing, | [address] | | | | | [facility] 2 | [phone] | | | | | [place], [place] | | | | | | [address] | | | | | | [phone] | | | +--------+---------+ + + + [...] + + + | Blood Pressure | 145/85 | 11/22/2018 9:37 AM | | | | | PDT | | + + + + + | Pulse | 76 | 11/22/2018 9:37 AM | | | | | PDT | | + + + + + | Temperature | - | - | | + + + + + | Respiratory Rate | - | - | | + + + + + | Oxygen Saturation | 100% | 11/22/2018 9:37 AM | | | | | PDT | | + + + + + | Inhaled Oxygen | - | - | | | Concentration | | | | + + + + + | Weight | 58.6 kg (129 lb 1.6 | 11/22/2018 9:37 AM | | | | oz) | PDT | | + + + + + | Height | 162.6 cm (5' 4") | 11/22/2018 9:37 AM | | | | | PDT | | + + + + + | Body Mass Index | 22.16 | 11/22/2018 9:37 AM | | | | | PDT | | + + + + + documented in this encounter Progress Notes Manoj Kumar MD - 11/22/2018 9:00 AM PDT Thoracic Surgery Faculty Patient Name: Sussy Allred Date of : 1950 [facility] I personally reviewed the patient's CT Chest, PFT's and PET Scan. I personally interviewed the patient, performed gutiérrez elements of the physical examination, a nd personally formulated the assessment and plan with the nurse practitioner. Please see Mary Waters's note for details of this encounter. I spent 60 minutes with Ms. Allred. I spent greater than 50% of this time counseling her an d coordinating her care including discussion of the listed items. 68 yo with spiculated and PET avid CODY mass, 2.4 cm, PET avid AP window and 3A lymph nodes. Has RUL nodule that is not PET avid, mSUV=1.0. Climbed 6 flight of stairs. Most likely Stage IIIA CODY primary lung cancer. N2 nodes are AP window and much less likel y 3A. In both cases, will need thoracoscopy to remove/bx these nodes. Her lung function ap pears adequate for lung resection. Recommend EBUS/Med and if negative (no enlarged nodes or avidity in paratracheal or EBUS/Med approachable nodes) proceed to left thoracoscopy and hallie ng resection with most likely lingular sparing left upper lobectomy and MLND. Discussed risk, benefit, alternative of this. She would like to proceed. Surgery is sched uled for December 04. Will get dobutamine or exercise stress echo PFT's Brain ANABELLA Present at tumor board. Manoj Kumar M.D., FACS, FACCP entry level manager Section of General Thoracic Surgery Division of Cardiothoracic Surgery Alejandro Londono NP - 9:00 AM PDTGeneral Thoracic Surgery Consult Date of Service: 11/22/2018 Referring Provider: Rell Lovett MD [address] [place] [address] Primary Care Provider: MALLIKA Toledo [address] [place] [address] Reason for consult: Bilateral pulmonary nodules History of Present Illness: Ms. Sussy Allred is a 68 year-old female who has a history of left upper chest and neck swelling who was found to have bilateral pulmonary nodules as well as mediastinal and hilar adenopathy concerning for malignancy. A CXR from 09 October demonstrated bilateral pulmonary nodules. A chest CT from 11 October a 2.4 X 1.6 X 1.6 cm CODY nodule, a 1.7 X 1.0 X 1.0 RUL nodule, and an AP window lymph node measuring 2.1 S 2.1 X 1.[address] from 24 October showed a 2.2 cm CODY spiculated nodule with a mSUV of 5.96, a 5 X 2.3 cm AP window node with a mSUV of 13.58, a left hilar node with a mSUV of 2.76, and a prevasc ular lymph node measuring 1.1 X 0.8 cm with a mSUV of 4.36. The patient reports no dyspnea on exertion; however, she does report worsening headaches, o ccasional night sweats, and continued left neck swelling and chest pain. Ms. Allred reports being able to walk many, many blocks on the level before requiring rest. Sussy Allred was referred to the Thoracic Surgery Clinic for surgical evaluation and po ssible surgical treatment of her suspected pulmonary malignanc(ies). Medications: albuterol 90 mcg/actuation inhalation HFA aerosol inhaler, Inhale by mouth as needed. ALPRAZolam 0.25 mg oral tablet, Take by mouth as needed. buPROPion XL 300 mg oral tablet extended release 24 hr, Take 1 tablet by mouth once daily. doxycycline hyclate 100 mg oral capsule, Take 100 mg by mouth two times daily. estradiol 2 mg oral tablet, Take by mouth once daily. HYDROcodone-acetaminophen 7.5-325 mg oral tablet, Take by mouth four times daily. lansoprazole 30 mg oral capsule,delayed release(DR/EC), Take by mouth once daily. nicotine 14 mg/24 hr transdermal patch 24 hour, Apply to skin as needed. QVAR REDIHALER 40 mcg/actuation inhalation HFA aerosol breath activated, Inhale by mouth on ce daily. SYNTHROID 50 mcg oral tablet, Take by mouth once daily. triamterene-hydrochlorothiazide 37.5-25 mg oral tablet, Take by mouth once daily. Allergies: Toradol - undefined response Latex - rash Past Medical History: Hypothyroidism GERD Cervical discitis IBS Raynaud's Past Surgical History: Oophorectomy Appendectomy Family History: Father (): liver or pancreatic cancer? Social History: Lives in [place] , has a significant other, Collins 7 pack-year history of smoking; trying to quit; started in 2004 No significant alcohol, illicit drug, or marijuana use Works full-time at [employer] Review of Systems: General: + night sweats Eyes: No changes in vision, double vision, eye pain, eye irritation, discharge, blurred vi ousmane or light sensitivity. Ears, Nose and Throat: No hearing loss, ringing in the ears, ear discharge, earache, noseb yolande, nasal congestion, difficulty swallowing, hoarseness or sore throat. Respiratory: No shortness of breath, coughing up blood, excessive sputum, cough, chest dis comfort or wheezing. Musculoskeletal: No joint pain, swelling, stiffness, back pain, arthritis, muscle aches, m uscle cramps or loss of strength. Cardiovascular: No skipping beats, lightheadedness, difficulty breathing upright or lying down, fatigue, near fainting or fainting, palpitations, weight gain, edema, leg cramps. + n huber and left chest pain Gastrointestinal: No loss of appetite, excessive appetite, indigestion, vomiting, nausea, constipation, gas, abdominal pain, diarrhea, bloating, bloody stools or dark tarry stools. Neurologic: No unusual headaches, inability to speak, poor balance, or numbness Skin: No itching, rash, poor wound healing, changes in skin color, dryness, flushing or sparks spicious lesions. Heme/Lymphatic: No skin discoloration, abnormal bleeding or enlarged lymph nodes. Physical Exam: BP 145/85 (BP Location: Left upper arm, Patient Position: Sitting) | Pulse 76 | Ht 1.626 m (5' 4") | Wt 58.6 kg (129 lb 1.6 oz) | SpO2 100% RA | BMI 22.16 kg/m | BSA 1.63 m Gen: Sitting in chair; NAD Neuro: AOX3 Psych: Pleasant, conversant Pulm: Clear bilaterally CV: RRR; no MRGB GI/: S/NT/ND; no hepatosplenomegaly MS: No swelling or pain at joints with movement Endo: Warm, dry; no diaphoresis Vascular: +2 pulses in all extremities; no C/C/E Lymphatics: No cervical or axillary lymphadenopathy Integumentary: Warm; dry; no bruising, ecchymosis Studies: I personally reviewed the patient's clinical data, including her prior imaging studies: CXR from 10/09/18: CT image from 10/11/18: CT image from 10/11/18: CT image from 10/11/18: Today in clinic, she was able to walk up six (6) flights of stairs before requiring rest (C HH). Assessment: In summary, Ms. Allred is a 68 year-old female who presents with a history of bilateral lung nodules and PET-avid mediastinal and hilar adenopathy concerning for malignancy. The patient and I discussed the potential risks, benefits, and alternatives of a flexible b ronchoscopy, EBUS, possible mediastinoscopy, likely left VATS with lymph node dissection, un likely LULobectomy, likely lingular sparing left upper lobectomy in detail. Ms. Allred would like to proceed with this. Plan: We will be obtaining some routine preoperative tests today. These include: - brain MRI - PFTs with DLCO - BMP - CXR - INR - CBC - T&S - dobutamine stress echo - presentation at Lung Tumor Board If these are favorable, we plan on proceeding with surgery on November,. Informed consent obtained. Pre-admission orders placed. Medications to be held the day prior to surgery: none. Operative scheduling data: Lateral position Regular table, piedra bag Estimated time: 2 hours Estimated blood loss: 50 ml Epidural catheter requested?: no Special requests: none Admission status: inpatient I spent 45 minutes with Ms. Allred. Greater than 50% of this time was spent counseling her and coordinating her care. documented in this enc ounter Plan of [...] | | | | | | [place] [address] | | | | | | [phone] | | | | | | | | +--------+---------+ + + + | 04/30/ | Office | Otolaryngology | Augustine Nolan | | | 2019 | Visit | | MD Debbie [address] | | | | | | [address] | | | | | | [place] | | | | | | [address] | | | | | | [phone] | | | | | | | | +--------+---------+ + + + + +------+--------+ + + | Name | Type | Priori | Associated Diagnoses | Order Schedule | | | | ty | | | + +------+--------+ + + | 12 LEAD ECG | ECG | Routin | Neoplasm | Ordered: 11/22/2018 | | | | e | | | + +------+--------+ + + documented as of this encounter [...] | | | + +---------+ + + RENAL FUNCTION SET (NA,K,CL,CO2,BUN,CREAT,GLUC,CA,PHOS,ALB ) [...] | | | LABORATORY | | | [facility] | | | SERVICES, | | | [...] Interpretive Information: <60 mL/min/1.73 sq m | [facility], | | Chronic Kidney Disease <15 mL/min/1.73 sq m | [facility] | | Kidney Failure Estimated GFR [...] + + + | [facility] | [address] | [place] [address] | | | SERVICES, [facility] | | | | | HEALTH [...] | + + + + + | [facility] | [address] | [place] [address] | | | SERVICES, CORE | [address] | | | + + + + + X-RAY CHEST 2 VIEW (11/26/2018 3:06 PM [...] report as now presented. Final signature: Frieda Brumfield, | | 11/26/2018 3:56 PM Preliminary: Nomi Burks MD Dictation initiated: Nomi Burks MD 11/26/2018 3:33 PM | | [...] | | | + +---------+ + + SPIROMETRY BEFORE / AFTER BRONCHODIL, PULM FUNCTION LAB (11/26/2018 1:31 PM PDT) + + + + + + | Component | Value | Ref Range | Performed | Pathologist | | | | | At | Signature | + + + + + + | PULMONARY | Site: [facility] and | | [facility] | | | INTERPRETAT | [facility] | | SPECIAL | | | ION | [facility], | | DIAGNOSTICS | | | | [place], [place], | | - | | | | [phone]: [id number] | | PULMONARY | | | | Name: SUSSY ALLRED | | FUNCTION | | | | ANNVisit Date: | | | | | | 11/26/2018 Second ID: | | | | | | [id number]: | | | | | | Aarti Hurst: 68 | | | | | | : 1950 Sex: | | | | | | Female Race: | | | | | | CaucasianHeight: 162.50 | | | | | | Cms Weight: 59.00 | | | | | | Kgs BSA: 1.63Order | | | | | | IDs: [id number] | | | | | | Test(s): [...] + + + + + + | OIB30-81% | 1.79 | 2.00 L/sec | [facility] | | | PRE | | | SPECIAL | | | | | | DIAGNOSTICS | | | | | | - | | | | | | PULMONARY | | | | | | FUNCTION | | + + + + + + | UBW91-37% | 89 | % | [facility] | [...] [facility] | [address] | [place], [place] | | | DIAGNOSTICS - | [address] | [address] | | | PULMONARY FUNCTION | | | | + + + + + STRESS DOBUTAMINE ECHOCARDIOGRAM, ADULT (11/26/2018 11:43 AM PDT) + + | Specimen | + + | | + + + + + | Narrative | Performed At | + + + | [facility] | [facility] DEPT OF | | [facility] Adult Echocardiography Laboratory [address] CARDIOLOGY | | [address], [place] [address] Ph: | | | Pt Name: SUSSY ALLRED | | | Study Date / Time 11/26/2018 / 11:43:08 AMMRN: [id number] | | | Most recent prior: 0Acc #: [id number] | | | No. previous echos: 0DOB: 1950 Age: 68 | | | years Gender: FHeight: 64.0 in | | | BSA: 1.62 e5Whmwpz: 129 lb | | | Order ID: [id number] | | | medications: Diuretic and Aspirin.Indications: Preoperative Evaluation | | | Radiology Nurse: Tania Birmingham [facility] Referring Provider: Alejandro Bishop | | | Location: HModalities Performed: Dobutamine stress echo and Definity | | | contrast.History: 68 yo with spiculated and PET avid CODY mass, 2.4 | | | cm, PET avid AP window and 3A lymph nodes.. Patient history has been | | | obtained from the EHR Dobutamine Stress Echocardiographic Report | | | + | | | --------+Final Impressions: | | | | | | | | | | | | 1. | | | At baseline left ventricular systolic function is normal. | | | 2. There is chest pain reported with infusion. | | | 3. The blood pressure response was | | | flat. | | | | | | 4. EKG portion of stress test is | | | abnormal. 5. At | | | peak stress the LV function augments normally (See comments below). | | | 6. Echo negative for ischemia. | | | 7. Low risk dobutamine stress echo | | | with > 85% age predicted maximal heart rate. | | | | | | | | | | | | + | | | --------+ Exercise Capacity:Symptoms: The patient pre-exising left | | | neck and chest pain that worsened at peaks and returned to baseline | | | after esmolol was administered during the test. Exam Protocol: The | | | patient was infused with Dobutamine for 11 minutes and 16 seconds. | | | Dobutamine infused in increasing doses up to a maximum of 20 | | | mcg/kg/min was given. Atropine .30 mg was given. Esmolol 20 mg was | | | given. Procedural Findings: The patients resting blood pressure was | | | 151 /78 mmHg. The peak blood pressure during stress was 140/53 mm Hg. | | | The blood pressure response was flat. The peak heart rate achieved was | | | 140 beats per minute, which was 91% of the age predicted maximal | | | heart rate of 153 beats per minute. The test was stopped due to target | | | heart rate achieved. There is chest pain reported with infusion. Peak | | | Stress ECG Findings: EKG portion of stress test is abnormal. There | | | was 1.[address] segment depression in leads V4, V5, V6 and | | | II, III and aVF during the peak stress period. Echocardiographic | | | Findings: The quality of echo imaging is good (with contrast). There | | | were no stress-induced wall motion abnormalities. Echo negative for | | | ischemia. At baseline left ventricular systolic function is normal. At | | | peak stress the LV function augments normally. At recovery the LV | | | function returned to baseline. Baseline All segments are normal. | | | 0=Unable to score, 1=Normal, 2=Hypokinetic, | | | 3=Akinetic, 4=Dyskinetic, 5=Aneurysmal Low | | | Dose All segments are normal. 0=Unable to score, 1=Normal, | | | 2=Hypokinetic, | | | 3=Akinetic, 4=Dyskinetic, 5=Aneurysmal Peak All segments are normal. | | | 0=Unable to score, 1=Normal, 2=Hypokinetic, | | | 3=Akinetic, 4=Dyskinetic, 5=Aneurysmal Recovery | | | All segments are normal. 0=Unable to score, 1=Normal, 2=Hypokinetic, | | | 3=Akinetic, | | | 4=Dyskinetic, 5=Aneurysmal Supervising RN: Cara Torres, | | | RNSupervising Physician: MAEGAN Garnereport electronically | | | signed by: Hannah Mccormick MD (11/26/2018, 1:25:20 PM) Final | | | | | |Low Dose All segments are normal. 0=Unable to score, 1=Normal, 2=Hypokinetic, | | | 3=Akinetic, 4=Dyskinetic, 5=Aneurysmal | | | | | |Peak All segments are normal. 0=Unable to score, 1=Normal, 2=Hypokinetic, | | | 3=Akinetic, 4=Dyskinetic, 5=Aneurysmal | | | | | |Recovery All segments are normal. 0=Unable to score, 1=Normal, 2=Hypokinetic, | | | 3=Akinetic, 4=Dyskinetic, 5=Aneurysmal | | | | | | | | |Supervising RN: Cara Torres RN | | |Supervising Physician: Hannah Mccormick MD | | |Report electronically signed by: Hannah Mccormick MD (11/26/2018, 1:25:20 PM) | | | | | | | | | | | | | | | | | | | | | | | | Final | | + + + + + | Procedure Note | + + | Interface, Cardiology Results - 11/26/2018 1:25 PM [facility] | | [facility] Echocardiography Laboratory [address] [place] [address] | | [place], [place] [address] Pt Name: SUSSY REEVES | | WINNIE Study Date / Time 11/26/2018 / 11:43:08 AMMRN: [id number] | | Most recent prior: 0Acc #: [id number] No. previous echos: 0DOB: | | 1950 Age: 68 years Gender: FHeight: 64.0 in BSA: | | 1.62 b3Cwsgxw: 129 lb Order ID: | | [id number] medications: Diuretic and Aspirin.Indications: Preoperative Evaluation | | Radiology Nurse: Tania Birmingham RDCS Referring Provider: Alejandro Bishop Location: | | [facility] Performed: Dobutamine stress echo and Definity contrast.History: 68 yo | | with spiculated and PET avid CODY mass, 2.4 cm, PET avid AP window and 3A lymph nodes.. | | Patient history has been obtained from the EHR Dobutamine Stress Echocardiographic | | Report+ +Fin | | al Impressions: | | | | 1. At baseline left ventricular | | systolic function is normal. 2. There is chest pain reported with | | infusion. 3. The blood pressure response was flat. | | | | 4. EKG portion of stress test is abnormal. | | 5. At peak stress the LV function augments normally (See comments below). 6. | | Echo negative for ischemia. 7. Low risk | | dobutamine stress echo with > 85% age predicted maximal heart rate. | | | | | | + + Exercise | | Capacity:Symptoms: The patient pre-exising left neck and chest pain that worsened at | | peaks and returned to baseline after esmolol was administered during the test. Exam | | Protocol: The patient was infused with Dobutamine for 11 minutes and 16 seconds. | | Dobutamine infused in increasing doses up to a maximum of 20 mcg/kg/min was given. | | Atropine .30 mg was given. Esmolol 20 mg was given. Procedural Findings: The patients | | resting blood pressure was 151 /78 mmHg. The peak blood pressure during stress was | | 140/53 mm Hg. The blood pressure response was flat. The peak heart rate achieved was 140 | | beats per minute, which was 91% of the age predicted maximal heart rate of 153 beats | | per minute. The test was stopped due to target heart rate achieved. There is chest pain | | reported with infusion. Peak Stress ECG Findings: EKG portion of stress test is | | abnormal. There was 1.[address] segment depression in leads V4, V5, V6 and | | II, III and aVF during the peak stress period. Echocardiographic Findings: The quality | | of echo imaging is good (with contrast). There were no stress-induced wall motion | | abnormalities. Echo negative for ischemia. At baseline left ventricular systolic | | function is normal. At peak stress the LV function augments normally. At recovery the LV | | function returned to baseline. Baseline All segments are normal. 0=Unable to score, | | 1=Normal, 2=Hypokinetic, 3=Akinetic, 4=Dyskinetic, | | 5=AneurysmalLow Dose All segments are normal. 0=Unable to score, 1=Normal, | | 2=Hypokinetic, 3=Akinetic, 4=Dyskinetic, | | 5=AneurysmalPeak All segments are normal. 0=Unable to score, 1=Normal, 2=Hypokinetic, | | 3=Akinetic, 4=Dyskinetic, 5=AneurysmalRecovery All segments | | are normal. 0=Unable to score, 1=Normal, 2=Hypokinetic, | | 3=Akinetic, 4=Dyskinetic, 5=Aneurysmal Supervising RN: Cara Torres, RNSupervising | | Physician: MAEGAN Garnerjai electronically signed by: Hannah Mccormick MD | | (11/26/2018, 1:25:20 PM) Final | | | |Procedural Findings: The patients resting blood pressure was 151 /78 mmHg. The peak | |blood pressure during stress was 140/53 mm Hg. The blood pressure response was flat. | |The peak heart rate achieved was 140 beats per minute, which was 91% of the age | |predicted maximal heart rate of 153 beats per minute. The test was stopped due to | |target heart rate achieved. There is chest pain reported with infusion. | | | |Peak Stress ECG Findings: EKG portion of stress test is abnormal. There was 1.0 mm of | | horizontal ST segment depression in leads V4, V5, V6 and II, III and aVF during the | |peak stress period. | | | |Echocardiographic Findings: The quality of echo imaging is good (with contrast). | |There were no stress-induced wall motion abnormalities. Echo negative for ischemia. | |At baseline left ventricular systolic function is normal. At peak stress the LV | |function augments normally. At recovery the LV function returned to baseline. | | | |Baseline All segments are normal. 0=Unable to score, 1=Normal, 2=Hypokinetic, | | 3=Akinetic, 4=Dyskinetic, 5=Aneurysmal | | | |Low Dose All segments are normal. 0=Unable to score, 1=Normal, 2=Hypokinetic, | | 3=Akinetic, 4=Dyskinetic, 5=Aneurysmal | | | |Peak All segments are normal. 0=Unable to score, 1=Normal, 2=Hypokinetic, | | 3=Akinetic, 4=Dyskinetic, 5=Aneurysmal | | | |Recovery All segments are normal. 0=Unable to score, 1=Normal, 2=Hypokinetic, | | 3=Akinetic, 4=Dyskinetic, 5=Aneurysmal | | | | | |Supervising RN: Cara Torres RN | |Supervising Physician: Hannah Mccormick MD | |Report electronically signed by: Hannah Mccormick MD (11/26/2018, 1:25:20 PM) | | | | | | | | | | | | | | | | Final | + + + + + + + | Performing | Address | City/State/Zipcode | Phone Number | | Organization | | | | + + + + + | [facility] | [address] | [place], [place] | | | CARDIOLOGY | [facility] | [address] | | + + + + + ECG TRACING FOR STRESS ECHOCARDIOGRAM (11/26/2018 11:15 [...] DEPT OF | [address] | [place], [place] | | | CARDIOLOGY | [address] | [address] | | + + + + + documented in this encounter Visit Diagnoses + + | Diagnosis | + + | Neoplasm - Primary Neoplasm of unspecified nature, site unspecified | + + documented in this encounter
--- OUTSIDE RECORDS SUMMARY | ~2020-03-30 | XMS | Encounter Summary ---
Demographics + + + | Address | [address] | | | [place] [address] | + + + | Home Phone [...] Team Providers + +------+ + | Care Tetryl Blender Operator Name | Role | Phone | [...] 2019 | Event | [address] [place] | [address] | | | | | [facility] | [facility], | | | | | Hospital Admitting | [place] [address] | | | | | Desk Located on the | [phone] | | | | | 9th floor | | | | | | [place], [place] | Mango Ceja MD | | | | | [address] | [address] | | | | | | [facility], | | | | | | [place] [address] | | | | | | [phone] | | | | | | | [...] | | | | | | [place] [address] | | | | | | [phone] | | | | | | | | +--------+---------+ + + + | 04/30/ | Office | Otolaryngology | Augustine Nolan | | | 2019 | Visit | | MD Debbie [address] | | | | | | [address] | | | | | | [place] | | | | | | [address] | | | | | | [phone] | | | | | | | [...] TY, | | | ERIK Performed by EKENA HSIEH Procedure Comments: Very | | | [...]
--- OUTSIDE RECORDS SUMMARY | ~2020-03-30 | XMS | Encounter Summary ---
Demographics + + + | Address | [address] | | | [place] [address] | + + + | Home Phone [...] | Author | [facility] | | | and Jakobana | + + + | Organization | [facility] | | | and [...] Team Providers + +------+ + | Care Carbider Name | Role | Phone | + [...] 08/14/ | Refill | [facility] | Shante Ledbetterhoang Galvez, | Medication Refill | | 2018 | | [facility] | MD [address] | | | | | [facility]IN[facility] [address] [place], | | | | | [place] | [place] [address] | | | | | [place] [address] | [phone] | | | | | [phone] | | | +--------+--------+ + + + [...] Encounter - Rianna Genao RN - 08/14/2019 12:13 PM PSTPlease send Rx's to Pending sale to [facility] per pt request. documented in this encounter Plan of Treatment [...] | | | | | | [place] [id number] | | | | | | [phone] | | | | | | | | +--------+ + + + + documented as of this encounter Visit Diagnoses + + | Diagnosis | + + | Malignant neoplasm of hilus of lung, unspecified laterality (HCC) | + + documented in this encounter"
--- OUTSIDE RECORDS SUMMARY | ~2020-03-30 | XMS | Encounter Summary ---
Demographics + + + | Address | [address] | | | [place] [address] | + + + | Home Phone [...] Providers + +------+ + | Care Field Support Rep Name | Role | Phone | [...] [place] | | | | | at [place] [address] | [address] | | | | | [facility] [place] for | [place], [place] | | | | | Health and Healing, | [address] | | | | | [facility] | [phone] | | | | | [place], [place] | | | | | | [address] | | | | | | [phone] | | | +--------+ + + + [...] | | 2019 | Visit | | [address] | | | | | | [place], | | | | | | [place] [address] | | | | | | [phone] | | | | | | | | +--------+---------+ + + + | 04/30/ | Office | Otolaryngology | Augustine Nolan | | | 2019 | Visit | | MD Debbie [address] | | | | | | [address] | | | | | | [place] | | | | | | [address] | | | | | | [phone] | | | | | | | | +--------+---------+ + + + documented as of this encounter Visit Diagnoses Not on filedocumented in this encounter
--- OUTSIDE RECORDS SUMMARY | ~2020-03-30 | XMS | Encounter Summary ---
Demographics + + + | Address | [address] | | | [place] [address] | + + + | Home Phone | | + + + | Preferred Language | Unknown | + + + | Marital Status | Single | + + + | Scientologist Affiliation | NRP | + + + | Race | White | + + + | Ethnic Group | Not or | + + + Author + + + | Author | [facility] | + + + | Organization | [facility] | + + + | Address | Unknown | + + + | Phone | Unavailable | + + + Support + + +---------+ + | Name | Relationship | Address | Phone | + + +---------+ + | Laura Allred | ECON | Unknown | | + + +---------+ + Care Team Providers + +------+ + | Care Nursing Staff Development Coordinator Name | Role | Phone | + +------+ + | Lauryn Stuart | PCP | | + +------+ + Encounter Details +--------+ + + + + | Date | Type | Department | Care Team | Description | +--------+ + + + + | 10/09/ | Procedure | [facility] | | | | 2020 | Pass | [facility] | | | | | | [facility] | | | | | | Center Admitting | | | | | | Desk Located on the | | | | | | 4th floor [address] | | | | | | [place], | | | | | | [place] [address] | | | +--------+ + + + [...] | | | | | | [place] [address] | | | | | | [phone] | | | | | | | | +--------+---------+ + + + | 04/30/ | Office | Otolaryngology | Augustine Nolan | | | 2020 | Visit | | MD Debbie [address] | | | | | | [address] | | | | | | [place] | | | | | | [address] | | | | | | [phone] | | | | | | | | +--------+---------+ + + + documented as of this encounter Visit Diagnoses Not on filedocumented in this encounter
--- OUTSIDE RECORDS SUMMARY | ~2020-03-30 | XMS | Encounter Summary ---
Demographics + + + | Address | [address] | | | [place] [address] | + + + | Home Phone [...] + + | Author | [facility] | | | and Jakobana | + + + | Organization | [facility] | | | and Jakobana [...] + +------+ + | Care Contact Center Agent Name | Role | Phone | [...] | | ANNELISE [place] | [place] [address] | | | | | [place] [address] | | | | | | [phone] | | | +--------+ + + + [...] | | | | | [place] [address] | | | | | | [phone] | | | | | | | [...]
--- OUTSIDE RECORDS SUMMARY | ~2020-03-30 | XMS | Encounter Summary ---
Demographics + + + | Address | [address] | | | [place] [address] | + + + | Home Phone [...] Author + + + | Author | [facility] | + + + | Organization | [facility] | + + + | Address | Unknown | + + + | Phone | Unavailable | + + + Support + + +---------+ + | Name | Relationship | Address | Phone | + + +---------+ + | Laura Allred | ECON | Unknown | | + + +---------+ + Care Team Providers + +------+ + | Care Legal Assistant Name | Role | Phone | [...] | | | | Medicine at | [facility] | | | | | [facility] | Road [place], [place] | | | | | [address] | [address] | | | | | [facility] | | | | | | [facility], [address] [place] [address] | | | | | | [place], [place] | | | | | | [address] | | | | | | [phone] | | | +--------+ + + + [...] | | | | | [address], | | | | | | [place] [address] | | | | | | [phone] | | | | | | | | +--------+---------+ + + + | 04/30/ | Office | Otolaryngology | Augustine Nolan | | | 2020 | Visit | | MD Debbie [address] | | | | | | [address] | | | | | | [place] | | | | | | [address] | | | | | | [phone] | | | | | | | | +--------+---------+ + + + documented as of this encounter Visit Diagnoses Not on filedocumented in this encounter"
--- OUTSIDE RECORDS SUMMARY | ~2020-03-30 | XMS | Encounter Summary ---
Demographics + + + | Address | [address] | | | [place] [address] | + + + | Home Phone | | + + + | Preferred Language | Unknown | + + + | Marital Status | Single | + + + | Buddhist Affiliation | Unknown | + + + | Race | Unknown | + + + | Ethnic Group | Unknown | + + + Author + + + | Author | [facility] | | | and Jakobana | + + + | Organization | [facility] | | | and Jakobana [...] Providers + +------+ + | Care Director Telemetry Name | Role | Phone | + [...] | | ANNELISE GROSSMAN | [place] [address] | | | | | [place] [address] | | | | | | [phone] | | | +--------+ + + + [...] | | | | | [place] [address] | | | | | | [phone] | | | | | | | [...]
--- OUTSIDE RECORDS SUMMARY | ~2020-03-30 | XMS | Encounter Summary ---
Demographics + + + | Address | [address] | | | [place] [address] | + + + | Home Phone [...] Author | [facility] | | | and Jakobana | + + + | Organization | [facility] | | | and [...] Providers + +------+ + | Care School Age Teacher Name | Role | Phone | [...] neoplasm of | Boubacar Daniels, | [address] [place] | | | | | unspecified | MD [address] | [place], | | | | | part of | [place] | [place] [address] | | | | | unspecified | [address] | Phone: | | | | | bronchus or | [place], | [phone] | | | | | lung (HCC) | [place] [address] | Fax: | | | | | Procedures | Phone: | [phone] | | | | | AL VITAMIN | [phone] | | | | | | B12 | Fax: | | | | | | INJECTION, | [phone] | | | | | | [address] | | | | | | | ONDANSETRON | | | | | | | ORAL AL | | | | | | | ORAL | | | | | | | DEXAMETHASON | | | | | | | E, .25 MG | | | | | | | AL INJ., | | | | | | | APREPITANT, | | | | | | | 1 MG AL | | | | | | | PEMETREXED | | | | | | | INJECTION, | | | | | | | 10 MG AL | | | | | | | CARBOPLATIN | | | | | | | INJECTION, | | | | | | | 50 MG AL | | | | | | | ADRENALIN | | | | | | | EPINEPHRINE | | | | | | | INJECT, .1 | | | | | | | MG AL | | | | | | | DIPHENHYDRAM | | | | | | | INE HCL | | | | | | | INJECTIO, 50 | | | | | | | MG AL | | | | | | | METHYLPREDNI | | | | | | | SOLONE | | | | | | | INJECTION, | | | | | | | 125 MG AL | | | | | | | ALBUTEROL | | | | | | | COMP CON, 1 | | | | | | | MG AL | | | | | | | ALBUTEROL | | | | | | | NON-COMP | | | | | | | CON, 1 MG | | | | | | | AL | | | | | | | INJECTION, | | | | | | | FAMOTIDINE, | | | | | | | 20 MG AL | | | | | | | NORMAL | | | | | | | SALINE | | | | | | | SOLUTION | | | | | | | INFUS, 500 | | | | | | | ML AL | | | | | | | NORMAL | | | | | | | SALINE | | | | | | | SOLUTION | | | | | | | INFUS, 250 | | | | | | | ML AL | | | | | | | STERILE | | | | | | | WATER/SALINE | | | | | | | , 10 ML AL | | | | | | | CHEMOTHER, | | | | | | | IV PUSH,EA | | | | | | | ADD DRUG AL | | | | | | | CHEMOTHER, | | | | | | | IV INFUSION, | | | | | | | 1 HR AL | | | | | | | CHEMOTHER, | | | | | | | IV INFUSION, | | | | | | | EA HR AL | | | | | | | CHEMOTHER,NO | | | | | | | N-HORMONE | | | | | | | ANTI-NEOPL, | | | | | | | SUB-Q/IM AL | | | | | | | CHEMOTHER | | | | | | | HORMON | | | | | | | ANTINEOPL | | | | | | | SUB-Q/IM AL | | | | | | | | | | | | | | PALONOSETRON | | | | | | | HCL, 25 MCG | | | +--------+--------+ + + + + Encounter Details +--------+ + + + + | Date | Type | Department | Care Team | Description | +--------+ + + + + | 04/28/ | Hospital | [facility] | Adolfo, | Dysphagia, | | 2019 | Encounter | MED CTR CHEMO | Boubacar Daniels MD [address] | unspecified type | | | | INFUSION [address] [facility] [place] | (Primary Dx); 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[place], | [address] [place], [place] | cord paralysis; | | | | [place] [address] | [id number] | Malignant neoplasm | | | | [phone] | | of hilus of lung, | [...] documented as of this encounter Progress Notes Tawny Thomas RN - 04/28/2019 11:30 AM PDTDc/d amb with self. Has return appts. Elect ronically signed by Tawny Thomas RN at 04/28/2019 11:31 AM PDTdocumented in this encou nter Plan of Treatment +--------+ + + + + | Date | Type | Specialty | Care Team | Description | +--------+ + + + + | 04/20/ | Appointment | Radiation Oncology | Treva Ortega | | | 2019 | | | DEISY Hernandez [address] | | | | | | [place] [address] | | | | | | [place] [address] | | | | | | [phone] | | | | | | | [...] heparin 100 units/mL flush | Given | 04/28/20 | 500 | | | | injection 500 Units 500 Units ( | | 19 11:26 | Units | | | | mL), Intracatheter, PRN, Line | | AM PDT | | | | | Care, Starting 04/28/19 at 1013 | | | | | | + +--------+ +-------+------+------+ +---+---+ | | | +---+---+ + +---------+ +---+-------+---+ | sodium chloride 0.9% (NS) | New Bag | 04/28/20 | | 800 | | | infusion at 800 mL/hr, | | 19 10:21 | | mL/hr | | | Intravenous, ONCE, 04/28/19 at | | AM PDT | | | | | 1030, For 1 dose, Give 1 liter NS | | | | | | | as needed per patient request, | | | | | | + +---------+ +---+-------+---+ +---+---+ | | | +---+---+ documented in this encounter"
--- OUTSIDE RECORDS SUMMARY | ~2020-03-30 | XMS | Encounter Summary ---
Demographics + + + | Address | [address] | | | [place] [address] | + + + | Home Phone | | + + + | Preferred Language | Unknown | + + + | Marital Status | Single | + + + | Church Affiliation | Unknown | + + + | Race | Unknown | + + + | Ethnic Group | Unknown | + + + Author + + + | Author | [facility] | | | and Jakobana | + + + | Organization | [facility] | | | and Jakobana [...] Team Providers + +------+ + | Care Windows Technical Specialist Name | Role | Phone | + +------+ + | Lauryn Stuart PA-C | PCP | | + +------+ + Encounter Details +--------+ + + + + | Date | Type | Department | Care Team | Description | +--------+ + + + + | 03/21/ | Orders Only | [facility] | Rajiv Fritz DO | | | 2019 | | MED CTR RADIATION | [address] | | | | | ONCOLOGY CLINIC [address] | [place] | | | | | [place] | [address] | | | | | [place] [address] | | | | | | [phone] | | | +--------+ + + + [...] | | | | | [place] [address] | | | | | | [phone] | | | | | | | | +--------+ + + + + documented as of this encounter Visit Diagnoses Not on filedocumented in this encounter"
--- OUTSIDE RECORDS SUMMARY | ~2020-03-30 | XMS | Encounter Summary ---
Demographics + + + | Address | [address] | | | [place] [address] | + + + | Home Phone [...] Author | [facility] | | | and Jakobana | + + + | Organization | [facility] | | | and [...] Team Providers + +------+ + | Care Auto Tire Recapper Name | Role | Phone | + [...] neoplasm of | Boubacar Daniels, | [address] [place] | | | | | unspecified | MD [address] | [place], | | | | | part of | [place] | [place] [address] | | | | | unspecified | [address] | Phone: | | | | | bronchus or | [place], | [phone] | | | | | lung (HCC) | [place] [address] | Fax: | | | | | Procedures | Phone: | [phone] | | | | | NE VITAMIN | [phone] | | | | | | B12 | Fax: | | | | | | INJECTION, | [phone] | | | | | | [address] | | | | | | | ONDANSETRON | | | | | | | ORAL NE | | | | | | | ORAL | | | | | | | DEXAMETHASON | | | | | | | E, .25 MG | | | | | | | NE INJ., | | | | | | | APREPITANT, | | | | | | | 1 MG NE | | | | | | | PEMETREXED | | | | | | | INJECTION, | | | | | | | 10 MG NE | | | | | | | CARBOPLATIN | | | | | | | INJECTION, | | | | | | | 50 MG NE | | | | | | | ADRENALIN | | | | | | | EPINEPHRINE | | | | | | | INJECT, .1 | | | | | | | MG NE | | | | | | | DIPHENHYDRAM | | | | | | | INE HCL | | | | | | | INJECTIO, 50 | | | | | | | MG NE | | | | | | | METHYLPREDNI | | | | | | | SOLONE | | | | | | | INJECTION, | | | | | | | 125 MG NE | | | | | | | ALBUTEROL | | | | | | | COMP CON, 1 | | | | | | | MG NE | | | | | | | ALBUTEROL | | | | | | | NON-COMP | | | | | | | CON, 1 MG | | | | | | | NE | | | | | | | INJECTION, | | | | | | | FAMOTIDINE, | | | | | | | 20 MG NE | | | | | | | NORMAL | | | | | | | SALINE | | | | | | | SOLUTION | | | | | | | INFUS, 500 | | | | | | | ML NE | | | | | | | NORMAL | | | | | | | SALINE | | | | | | | SOLUTION | | | | | | | INFUS, 250 | | | | | | | ML NE | | | | | | | STERILE | | | | | | | WATER/SALINE | | | | | | | , 10 ML NE | | | | | | | CHEMOTHER, | | | | | | | IV PUSH,EA | | | | | | | ADD DRUG NE | | | | | | | CHEMOTHER, | | | | | | | IV INFUSION, | | | | | | | 1 HR NE | | | | | | | CHEMOTHER, | | | | | | | IV INFUSION, | | | | | | | EA HR NE | | | | | | | CHEMOTHER,NO | | | | | | | N-HORMONE | | | | | | | ANTI-NEOPL, | | | | | | | SUB-Q/IM NE | | | | | | | CHEMOTHER | | | | | | | HORMON | | | | | | | ANTINEOPL | | | | | | | SUB-Q/IM NE | | | | | | | | | | | | | | PALONOSETRON | | | | | | | HCL, 25 MCG | | | +--------+--------+ + + + + Encounter Details +--------+ + + + + | Date | Type | Department | Care Team | Description | +--------+ + + + + | 04/30/ | Hospital | [facility] | Adolfo, | Vocal cord paralysis | | 2019 | Encounter | MED CTR CHEMO | Boubacar Daniels MD [address] | (Primary Dx); | | | | INFUSION [address] [facility] [place] | Dysphagia, | | | | [place], | [address] [place], [place] | unspecified type; | | | | [place] [address] | [address] | Malignant neoplasm | | | | [phone] | | of hilus of lung, | [...] + + + | Blood Pressure | 125/65 | 04/30/2019 11:05 AM | | | | | PDT | | + + + + + | Pulse | 82 | 04/30/2019 11:05 AM | | | | | PDT | | + + + + + | Temperature | 36.4 C (97.5 F) | 04/30/2019 11:05 AM | | | | | PDT | | + + + + + | Respiratory Rate | - | - | | + + + + + | Oxygen Saturation | 100% | 04/30/2019 11:05 AM | | | | | PDT [...] encounter Progress Notes Hellen Barron RN - 04/30/2019 12:35 PM PDTDischarged verified upcoming appointments. Vee Pelayo RN - 04/30/2019 11:05 AM PDTEnergy level: Ok Fever or chills: none Appetite: About the same, fair. Trying to increase intake. Nausea and/or vomiting: None Bowels: Normal Numbness and tingling: None Bleeding or bruising: None Karnofsky: 70-80 Nurses notes: Here for RN check and fluids. documented in this encounter Plan of Treatment [...] | | | | | | [place] [address] | | | | | | [phone] | | | | | | | | +--------+ + + + + documented as of this encounter Visit Diagnoses + + | Diagnosis | + + | Vocal cord paralysis - Primary Paralysis of vocal cords or larynx, unspecified | + + | Dysphagia, unspecified type | + + | Malignant neoplasm of hilus of lung, unspecified laterality (HCC) | + + documented in this encounter Administered Medications + +--------+ +-------+------+------+ | Medication Order | MAR | Action | Dose | Rate | Site | | | Action | Date | | | | + +--------+ +-------+------+------+ | heparin 100 units/mL flush | Given | 04/30/20 | 500 | | | | injection 500 Units 500 Units (5 | | 19 12:31 | Units | | | | mL), Intracatheter, PRN, Line | | PM PDT | | | | | Care, Starting 04/30/19 at | | | | | | | 1024 | | | | | | + +--------+ +-------+------+------+ +---+---+ | | | +---+---+ + +---------+ +---+-------+---+ | sodium chloride 0.9% (NS) | New Bag | 04/30/20 | | 800 | | | infusion at 800 mL/hr, | | 19 11:12 | | mL/hr | | | Intravenous, ONCE, 04/30/19 at | | AM PDT | | | | | 1045, For 1 dose, Give 1 liter | | | | | | | NS as needed per patient request, | | | | | | | | | | | | | + +---------+ +---+-------+---+ +---+---+ | | | +---+---+ documented in this encounter"
--- OUTSIDE RECORDS SUMMARY | ~2020-03-30 | XMS | Encounter Summary ---
Demographics + + + | Address | [address] | | | [place] [address] | + + + | Home Phone [...] + + | Author | [facility] | | | and Jakobana | + + + | Organization | [facility] | | | and [...] Team Providers + +------+ + | Care Executive Advisor Name | Role | Phone | [...] | MED CTR EXTERNAL | MD [address] | | | | | IMAGING [address] | [address] | | | | | [address] [place] | [place] [address] | | | | | [place] [address] | | | | | | [phone] | | | +--------+ + + + [...] | | | | | | [place] [address] | | | | | | [phone] | | | | | | | [...]
--- OUTSIDE RECORDS SUMMARY | ~2020-03-30 | XMS | Encounter Summary ---
Demographics + + + | Address | [address] | | | [place] [address] | + + + | Home Phone [...] + + + | Author | [facility] | | | and Jakobana | + + + | Organization | [facility] | | [...] Team Providers + +------+ + | Care Packaging Inspector Name | Role | Phone | [...] | Malignant | Fiona M, | [address] [place] | | | | | neoplasm of | MD [address] | [place], | | | | | hilus of | [address] | [place] [address] | | | | | lung, | [place], | Phone: | | | | | unspecified | [place] [address] | [phone] | | | | | laterality | Phone: | Fax: | | | | | (HCC) | [phone] | [phone] | | | | | Procedures | Fax: | | | | | | CT Chest w | [phone] | | | | | | Contrast [...] | Malignant | Fiona M, | [place] | | | | | neoplasm of | MD [address] | [place], | | | | | hilus of | [address] | [place] [address] | | | | | lung, | [place], | Phone: | | | | | unspecified | [place] [address] | [phone] | | | | | laterality | Phone: | Fax: | | | | | (HCC) | [phone] | [phone] | | | | | Procedures | Fax: | | | | | | CT Chest w | [phone] | | | | | | Contrast | | | +--------+--------+ + + + + Encounter Details +--------+ + + + + | Date | Type | Department | Care Team | Description | +--------+ + + + + | 12/21/ | Hospital | [facility] | Fiona Anne | Malignant neoplasm | | 2020 | Encounter | MED CTR CT [address] | MD Issa [address] | of hilus of lung, | | | | [address] [place], | [place], [place] | unspecified | | | | [place] [address] | [address] | laterality (HCC) | | | | [phone] | | | +--------+ + + + [...] mg by mouth | | 0 | 03/25/20 | | | (PLETAL) 50 mg | [...] | | | | | | | MARTHA PO) | | | | | | [...] patch onto | 10 | 0 | 12/22/19 | | | (DURAGESIC) 25 | the skin every 72 | patch | | 20 | 0 | | mcg/hr | hours. Apply skin | | | | | | | patch every three | | | | | | | days for pain | | | | | + [...] | | | | | [place] [address] | | | | | | [phone] | | | | | | | | +--------+ + + + + documented as of this encounter Procedures + +--------+ + + + | Procedure Name | Priori | Date/Time | Associated Diagnosis | Comments | | | ty | | | | + +--------+ + + + | CT CHEST W CONTRAST | Routin | 12/22/2019 | Malignant neoplasm | Results for this | | | e | 10:52 AM | of hilus of lung, | [...] iohexol (OMNIPAQUE 350) 350 | Given | 12/22/19 | 75 mLs | | | | mg/mL injection 75 mL 75 mL, | | 20 10:51 | | | | | Intravenous, ONCE PRN, Other, for | | AM PDT | | | | | imaging CT study, Starting Mon | | | | | | | 12/22/19 at 1055, For 1 dose, | | | | | | | Radiology | | | | | | + +--------+ +--------+------+------+ +---+---+ | | | +---+---+ documented in this encounter"
--- OUTSIDE RECORDS SUMMARY | ~2020-03-30 | XMS | Encounter Summary ---
Demographics + + + | Address | [address] | | | [place] [address] | + + + | Home Phone [...] Team Providers + +------+ + | Care Suppository Molding Machine Operator Name | Role | Phone | + +------+ + | Lauryn Stuart | PCP | | + +------+ + Encounter Details +--------+--------+ + + + | Date | Type | Department | Care Team | Description | +--------+--------+ + + + | 01/09/ | Travel | | | | | 2019 | | | | | +--------+--------+ + [...] | | | | | [place], | | | | | | [place] [address] | | | | | | [phone] | | | | | | | | +--------+---------+ + + + | 04/30/ | Office | Otolaryngology | Augustine Nolan | | | 2019 | Visit | | MD Debbie [address] | | | | | | [address] | | | | | | [place], [place] | | | | | | [address] | | | | | | [phone] | | | | | | | | +--------+---------+ + + + documented as of this encounter Visit Diagnoses Not on filedocumented in this encounter
--- OUTSIDE RECORDS SUMMARY | ~2020-03-30 | XMS | Encounter Summary ---
Demographics + + + | Address | [address] | | | [place] [address] | + + + | Home Phone [...] Team Providers + +------+ + | Care Communication Spec Name | Role | Phone | + [...] [address] | | | | | [place], [place] | [place], [place] | | | | | [address] | [address] | | | | | | [phone] | | | | | | | [...] | | | | | | [place] [address] | | | | | | [phone] | | | | | | | | +--------+---------+ + + + | 04/30/ | Office | Otolaryngology | Augustine Nolan | | | 2019 | Visit | | MD Debbie [address] | | | | | | [address] | | | | | | [place] | | | | | | [address] | | | | | | [phone] | | | | | | | [...] At | + + + | EXAM: [facility] professional interpretation of outside study: OUTSIDE | [facility] | | CHEST READ DATE OF IMAGE ACQUISITION: 10/11/2018 DATE OF [facility] | RADIOLOGY VOICE | | [...] Interface - 12/25/2018 5:51 PM PDT EXAM: [facility] | | professional interpretation of outside study: [...]
--- OUTSIDE RECORDS SUMMARY | ~2020-03-30 | XMS | Encounter Summary ---
Demographics + + + | Address | [address] | | | [place] [address] | + + + | Home Phone | | + + + | Preferred Language | Unknown | + + + | Marital Status | Single | + + + | Hindu Affiliation | NRP | + + + [...] Team Providers + +------+ + | Care Deputy Director Of Public Works Name | Role | Phone | + [...] | Vocal cord | Epic Dept | [facility] [address] | | | | | paralysis | | [address] | | | | | | | Center for | | | | | | | Health and | | | | | | | Healing, | | | | | | | Building [address], | | | | | | | 15th Floor | | | | | | | [place], [place] | | | | | | | [address] | | | | | | | Phone: | | | | | | | [phone] | | | | | | | Fax: | | | | | | | [phone] | +--------+--------+ + + + + Encounter Details +--------+---------+ + + + | Date | Type | Department | Care Team | Description | +--------+---------+ + + + | 01/24/ | Office | Otolaryngology [facility] | Ava Allred, | Vocal cord paralysis | | 2019 | Visit | [facility] | CF-DINING MANAGER [address] [facility] | (Primary Dx); | | | | Swallowing at [facility] | [address] | Dysphonia | | | | [address] | [place], [place] | | | | | [facility] | [address] | | | | | and Healing, | | | | | | | | | | | | Floor [place], [place] | | | | | | [address] | | | | | | [phone] | | | +--------+---------+ + + + [...] of this encounter Progress Notes Ava Allred, CF-DINING MANAGER - 01/24/2019 9:00 AM PDTFormatting of this note might be different f rom the original. VOICE EVALUATION CLINIC: [facility] REFERRING PHYSICIAN: Manoj Kumar MD PRIMARY DIAGNOSIS: 1. Vocal cord paralysis 2. Dysphonia TREATMENT DIAGNOSIS: 1. Vocal cord paralysis 2. Dysphonia DATE OF ONSET: 01/22/2019 START OF CARE: 01/24/2019 NUMBER OF SESSIONS: 1 DURATION OF SESSION: 40 minutes SUBJECTIVE: Sussy Allred was referred to the [facility] by Dr. 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 She is well known to our service from last inpatient admission, discharged on 12/14/2018. 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 She reports that her voice is very [...] < 1 pack/day. 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 Ava Allred M.S., CF-DINING MANAGER Speech-Language Pathology Fellow [facility] [place] [phone] documented in this encounter Plan of Treatment +--------+---------+ + + + | Date | Type | Specialty | Care Team | Description | +--------+---------+ + + + | 04/30/ | Office | Speech Therapy | Barbra Ramirez SLP | | | 2019 | Visit | | [address] | | | | | | [place] | | | | | | [place] [address] | | | | | | [phone] | | | | | | | | +--------+---------+ + + + | 04/30/ | Office | Otolaryngology | Augustine Nolan | | | 2019 | Visit | | MD Debbie [address] | | | | | | [address] | | | | | | [place] | | | | | | [address] | | | | | | [phone] | | | | | | | | +--------+---------+ + + + documented as of this encounter Procedures + +--------+ + + + | Procedure Name | Priori | Date/Time | Associated Diagnosis | Comments | | | ty | | | | + +--------+ + + + | [place] [facility] | Routin | 01/24/2019 | Vocal cord | | | QUALITATIVE ANALYSIS | e | 3:27 PM | paralysis Dysphonia | | | OF VOICE AND | | PDT | | | | RESONANCE | | | | | + +--------+ + + + | [place] | Routin | 01/24/2019 | Vocal cord [...]
--- OUTSIDE RECORDS SUMMARY | ~2020-03-30 | XMS | Encounter Summary ---
Demographics + + + | Address | [address] | | | [place] [address] | + + + | Home Phone | | + + + | Preferred Language | Unknown | + + + | Marital Status | Single | + + + | Nondenominational Affiliation | Unknown | + + + | Race | Unknown | + + + | Ethnic Group | Unknown | + + + Author + + + | Author | [facility] | | | and Jakobana | + + + | Organization | [facility] | | [...] Team Providers + +------+ + | Care Material Damage Appraiser Name | Role | Phone | + [...] neoplasm of | Boubacar Daniels, | [address] | | | | | unspecified | MD [address] | [place], | | | | | part of | [place] | [place] [address] | | | | | unspecified | [address] | Phone: | | | | | bronchus or | [place], | [phone] | | | | | lung (HCC) | [place] [address] | Fax: | | | | | Procedures | Phone: | [phone] | | | | | [place]AMIN | [phone] | | | | | | B12 | Fax: | | | | | | INJECTION, | [phone] | | | | | | [address] [...] + + | 04/22/ | Hospital | [facility] | Adolfo, | 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 | | | | INFUSION [address] [place] | left lung (HCC) | | | | [place], | [address] [place], [place] | (Primary Dx) | | | | [place] [address] | [address] | | | | | [phone] | | | +--------+ + + + [...] | | | 2020 | | | David, OFF TRACK BETTING MANAGER [address] | | | | | | [address] [place] | | | | | | [place] [address] | | | | | | [phone] | | | | | | | [...] chloride 0.9% (NS) | New Bag | 04/22/20 | 1,000 | 500 | | | infusion at 500 mL/hr, | | 19 2:41 | mLs | mL/hr | | | Intravenous, ONCE, Tulou 04/22/19 at | | PM PDT | | | | | 1445, For 1 dose, 1000 cc ns iv | | | | | | | over 2 hours., | | | | | | + +---------+ +--------+-------+------+ +---+---+ | | | +---+---+ documented in this encounter"
--- OUTSIDE RECORDS SUMMARY | ~2020-03-30 | XMS | Encounter Summary ---
Demographics + + + | Address | [address] | | | [place] [address] | + + + | Home Phone [...] + + + | Author | [facility] | + + + | Organization | [facility] | + + + | Address | Unknown | + + + | Phone | Unavailable | + + + Support + + +---------+ + | Name | Relationship | Address | Phone | + + +---------+ + | Laura Allred | ECON | Unknown | | + + +---------+ + Care Team Providers + +------+ + | Care Dish Washer Name | Role | Phone | [...] [place] | | | | | at [facility] [address] | [address] | | | | | [facility] for | [place], [place] | | | | | Health and Healing, | [address] | | | | | [facility] [address] | [phone] | | | | | [place], [place] | | | | | | [address] | | | | | | [phone] | | | +--------+ + + + [...] | | | | [address] [place], | | | | | | [place] [address] | | | | | | [phone] | | | | | | | | +--------+---------+ + + + | 04/30/ | Office | Otolaryngology | Augustine Nolan | | | 2020 | Visit | | MD Debbie [address] | | | | | | [address] | | | | | | [place] | | | | | | [address] | | | | | | [phone] | | | | | | | | +--------+---------+ + + + documented as of this encounter Visit Diagnoses Not on filedocumented in this encounter
--- OUTSIDE RECORDS SUMMARY | ~2020-03-30 | XMS | Encounter Summary ---
Demographics + + + | Address | [address] | | | [place] [address] | + + + | Home Phone | | + + + | Preferred Language | Unknown | + + + | Marital Status | Single | + + + | Denominational Affiliation | Unknown | + + + | Race | Unknown | + + + | Ethnic Group | Unknown | + + + Author + + + | Author | [facility] | | | and Jakobana | + + + | Organization | [facility] | | | and Jakobana [...] Team Providers + +------+ + | Care Equipment Operator Name | Role | Phone | [...] Malignant | Fiona M, | [address] | | | | | neoplasm of | MD [address] | [place], | | | | | upper lobe | [address] | [place] | | | | | of left lung | [place], | [address] | | | | | (HCC) | [place] [address] | Phone: | | | | | Abnormal MRI | Phone: | [phone] | | | | | of head | [phone] | Fax: | | | | | Procedures | Fax: | [phone] | | | | | MRI Brain w | [phone] | | | | | | wo [...] Malignant | Fiona M, | [address] | | | | | neoplasm of | MD [address] | [place], | | | | | upper lobe | [address] | [place] | | | | | of left lung | [place], | [address] | | | | | (HCC) | [place] [address] | Phone: | | | | | Abnormal MRI | Phone: | [phone] | | | | | of head | [phone] | Fax: | | | | | Procedures | Fax: | [phone] | | | | | MRI Brain w | [phone] | | | | | | wo Contrast | | | +--------+--------+ + + + + Encounter Details +--------+ + + + + | Date | Type | Department | Care Team | Description | +--------+ + + + + | 04/14/ | Hospital | [facility] | Fiona Anne | Malignant neoplasm | | 2019 | Encounter | MED CTR MRI [address] | MD Issa [address] | of upper lobe of | | | | [address] [place], | [place], [place] | left lung (HCC); | | | | [place] [address] | [address] | Abnormal MRI of head | | | | [phone] | | | +--------+ + + + [...] | | | | | [place] [address] | | | | | | [phone] | | | | | | | | +--------+ + + + + documented as of this encounter Procedures + +--------+ + + + | Procedure Name | Priori | Date/Time | Associated Diagnosis | Comments | | | ty | | | | + +--------+ + + + | MRI BRAIN W WO | Routin | 04/14/2019 | Malignant neoplasm | Results for this | | CONTRAST | e | 3:08 PM | of upper lobe of | procedure are in the | | | | PDT | left lung (HCC) | results section. | | | | | Abnormal MRI of head | | + +--------+ + + + [...] Her MD Electronically signed: 04/14/2019 3:43 PM | | [...] left lung (HCC) | + + | Abnormal MRI of head Nonspecific (abnormal) findings on radiological and other | | examination of skull and head | + + documented in this encounter Administered Medications + +--------+ +-------+------+------+ | Medication Order | MAR | Action | Dose | Rate | Site | | | Action | Date | | | | + +--------+ +-------+------+------+ | gadobutrol (GADAVIST) injection | Given | 04/14/20 | 5 mLs | | | | 5 mL 5 mL, Intravenous, ONCE | | 19 3:09 | | | | | PRN, Other, Starting 04/14/19 | | PM PDT | | | | | at 1508, For 1 dose, MRI | | | | | | + +--------+ +-------+------+------+ +---+---+ | | | +---+---+ documented in this encounter"
--- OUTSIDE RECORDS SUMMARY | ~2020-03-30 | XMS | Encounter Summary ---
Demographics + + + | Address | [address] | | | [place] [address] | + + + | Home Phone [...] Team Providers + +------+ + | Care Organic Chemistry Professor Name | Role | Phone | [...] | +--------+ + + + + | 11/25/ | Telephone | Cardiac | Stephanie Munoz RN | Appointment | | 2018 | | Non-Invasive Testing | [address] | | | | | at [facility] [address] | [address] | | | | | [facility] | [place], [place] | | | | | Health and Healing, | [address] | | | | | [address] | | | | | | [place] | | | | | | [address] | | | | | | [phone] | | | +--------+ + + + [...] | | | | | [address] [facility] | | | | | | [place] [address] | | | | | | [phone] | | | | | | | | +--------+---------+ + + + | 04/30/ | Office | Otolaryngology | Augustine Nolan | | | 2019 | Visit | | MD Debbie [address] | | | | | | [address] | | | | | | [place] | | | | | | [address] | | | | | | [phone] | | | | | | | | +--------+---------+ + + + documented as of this encounter Visit Diagnoses Not on filedocumented in this encounter
--- OUTSIDE RECORDS SUMMARY | ~2020-03-30 | XMS | Encounter Summary ---
Demographics + + + | Address | [address] | | | [place] [address] | + + + | Home Phone [...] Author | [facility] | | | and Jakobana | + + + | Organization | [facility] | | | [...] Team Providers + +------+ + | Care Demographer Name | Role | Phone | + [...] | +--------+ + + + + | 03/13/ | Hospital | [facility] | Fiona Anne | Malignant neoplasm | | 2019 | Encounter | MED CTR RADIATION | MD Issa [address] | of upper lobe of | | | | [facility]OGY CLINIC [address] | [address] [place], [place] | left lung (HCC) | | | | [address] [place] | [address] | (Primary Dx) | | | | [place] [address] | | | | | | [phone] | | | +--------+ + + + [...] + + + | Blood Pressure | 116/67 | 03/13/2019 2:00 PM | | | | | PDT | | + + + + + | Pulse | 89 | 03/13/2019 2:00 PM | | | | | PDT | | + + + + + | Temperature | 36.1 C (97 F) | 03/13/2019 2:00 PM | | | | | PDT | | + + + + + | Respiratory Rate | 16 | 03/13/2019 2:00 PM | | | | | PDT | | + + + + + | Oxygen Saturation | 96% | 03/13/2019 2:00 PM | | | | | PDT | | + + + + + | Inhaled Oxygen | - | - | | | Concentration | | | | + + + + + | Weight | 54.4 kg (119 lb 14.9 | 03/13/2019 2:00 PM | | | | oz) | PDT | | + + + + + | Height | - | - | | + + + + + | Body Mass Index | 19.98 | 01/30/2019 2:26 PM | | | [...] encounter Progress Notes Fiona Anne MD - 03/13/2019 11:53 AM PDT Radiation Oncology Weekly On Treatment Note Diagnosis: ICD-10-CM ICD-9-CM 1. Malignant neoplasm of upper lobe of left lung (HCC) C34.12 162.3 Reason for visit: On treatment evaluation Radiation technical factors: Dose Delivered Dose Planned Fractions Delivered 2200 cGy 5000 cGy 07/14 Images were reviewed this week and results [...] taking: Reported on 04/14/2019) 40 tablet 1 triamterene-hydrochlorothiazide (MAXZIDE-25) 37.5-25 mg per tablet Take 0.5 tablets by mouth Daily. No current facility-administered medications on file prior to encounter. Wt Readings from Last 3 Encounters: 03/13/19 54.4 kg 03/06/19 54.1 kg 02/27/19 54.3 kg Vitals: 03/13/19 1400 BP: 116/67 Pulse: 89 Resp: 16 Temp: 36.1 C (97 F) TempSrc: Temporal SpO2: 96% Weight: 54.4 kg (119 lb 14.9 oz) Physical Exam Constitutional: She appears well-developed and well-nourished. Neurological: She is alert. Skin: No rash noted. No erythema. Psychiatric: She has a normal mood and affect. 03/06/2019 11:05 WBC 2.7 (L) RBC COUNT 3.89 Hemoglobin 11.5 Hematocrit 35.4 MCV 91.0 MCH 29.6 MCHC 32.5 RDW-CV 17.6 (H) RDW-SD 58.2 (H) Platelet Count 256 MPV 8.4 Immature Platelet Fraction 1.3 % nRBC 0 Absolute nRBC 0.00 Absolute Neutrophils 1.57 (L) Absolute Lymphocytes 0.92 Absolute Monocytes 0.16 Absolute Eosinophils 0.01 Absolute Basophils 0.01 Absolute Immature Granulocytes 0.02 % Neutrophils 58.4 % Lymphocytes 34.2 % Monocytes 5.9 % Eosinophils 0.4 % Basophils 0.4 % Immature Granulocytes 0.7 (H) Na 134 (L) K 3.8 Chloride 101 Carbon dioxide 25 Anion Gap 8 Glucose 110 (H) BUN 19 Creatinine 0.75 BUN/Creatinine Ratio 25.3 Albumin 4.3 Albumin/Globulin Ratio 1.7 Total Protein 6.8 EGFR IF NOT >60 Calcium 9.7 ALK PHOS 92 ALT (SGPT) (REF) 14 AST (SGOT) (REF) 24 Bilirubin Total (Calculated) 0.6 Globulin 2.5 Physician Assessment: Katharina has increasing fatigue. Pain with swallowing, however her weight is stable. Reports i tching and her upper anterior sternum area. Continues to be bothered by postthoracotomy ch est pain. Disposition: Continue radiation treatment as planned. Continue concurrent chemotherapy per Dr. Adolfo Shah for pruritus Fiona Anne MD Radiation Oncologist documented in [...] | | | | | [place] [address] | | | | | | [phone] | | | | | | | | +--------+ + + + + documented as of this encounter Visit Diagnoses + + | Diagnosis | + + | Malignant neoplasm of upper lobe of left lung (HCC) - Primary | + + documented in this encounter"
--- OUTSIDE RECORDS SUMMARY | ~2020-03-30 | XMS | Encounter Summary ---
Demographics + + + | Address | [address] | | | [place] [address] | + + + | Home Phone | | + + + | Preferred Language | Unknown | + + + | Marital Status | Single | + + + | Taoist Affiliation | Unknown | + + + | Race | Unknown | + + + | Ethnic Group | Unknown | + + + Author + + + | Author | [facility] | | | and Jakobana | + + + | Organization | [facility] | | [...] Team Providers + +------+ + | Care Carpenter Wooden Tank Erecting Name | Role | Phone | + [...] | Malignant | Fiona M, | [address] | | | | | neoplasm of | MD [address] | [place], | | | | | upper lobe | [address] | [place] [address] | | | | | of left lung | [place], | Phone: | | | | | (HCC) | [place] [address] | [phone] | | | | | Procedures | Phone: | Fax: | | | | | CT Chest w | [phone] | [phone] | | | | | Contrast | Fax: | | | | | | | [phone] | | +--------+--------+ + + + + Encounter Details +--------+ + + + + | Date | Type | Department | Care Team | Description | +--------+ + + + + | 04/18/ | Orders Only | [facility] | Fiona Anne | Malignant neoplasm | | 2019 | | MED CTR RADIATION | MD Issa [address] | of upper lobe of | | | | ONCOLOGY CLINIC [address] | [facility] [place] | left lung (HCC) | | | | [place] | [address] | (Primary Dx) | | | | [place] [address] | | | | | | [phone] | | | +--------+ + + + [...] | | | | | [place] [address] | | | | | | [phone] | | | | | | | [...]
--- OUTSIDE RECORDS SUMMARY | ~2020-03-30 | XMS | Encounter Summary ---
Demographics + + + | Address | [address] | | | [place] [address] | + + + | Home Phone [...] Providers + +------+ + | Care Warehouse Shipping Receiving Clerk Name | Role | Phone | [...] | | | | at [facility] [address] | [address] | | | | | [facility] | [place], [place] | | | | | Health and Healing, | [address] | | | | | [address] | | | | | | [place] | | | | | | [address] | | | | | | [phone] | | | +--------+ + + + [...] | | | | | [address] [facility] | | | | | | [place] [address] | | | | | | [phone] | | | | | | | | +--------+---------+ + + + | 04/30/ | Office | Otolaryngology | Augustine Nolan | | | 2019 | Visit | | MD Debbie [address] | | | | | | [address] | | | | | | [place] | | | | | | [address] | | | | | | [phone] | | | | | | | | +--------+---------+ + + + documented as of this encounter Visit Diagnoses Not on filedocumented in this encounter
--- OUTSIDE RECORDS SUMMARY | ~2020-03-30 | XMS | Encounter Summary ---
Demographics + + + | Address | [address] | | | [place] [address] | + + + | Home Phone [...] Team Providers + +------+ + | Care Police Officer Crime Prevention Name | Role | Phone | + [...] | | | | | [place], | | | | | | [place] [address] | | | | | | [phone] | | | | | | | | +--------+---------+ + + + | 04/30/ | Office | Otolaryngology | Augustine Nolan | | | 2019 | Visit | | MD Debbie [address] | | | | | | [address] | | | | | | [place], [place] | | | | | | [address] | | | | | | [phone] | | | | | | | | +--------+---------+ + + + documented as of this encounter Visit Diagnoses Not on filedocumented in this encounter
--- OUTSIDE RECORDS SUMMARY | ~2020-03-30 | XMS | Encounter Summary ---
Demographics + + + | Address | [address] | | | [place] [address] | + + + | Home Phone | | + + + | Preferred Language | Unknown | + + + | Marital Status | Single | + + + | Adventist Affiliation | Unknown | + + + | Race | Unknown | + + + | Ethnic Group | Unknown | + + + Author + + + | Author | [facility] | | | and Jakobana | + + + | Organization | [facility] [...] Team Providers + +------+ + | Care Wind Energy Engineer Name | Role | Phone | + +------+ + | Lauryn Stuart PA-C | PCP | | + +------+ + Reason for Visit +---------+--------+ + | Reason | Onset | Comments | | | Date | | +---------+--------+ + | Results | 02/14/ | | | | 2018 | | +---------+--------+ + Encounter Details +--------+ + + + + | Date | Type | Department | Care Team | Description | +--------+ + + + + | 02/14/ | Telephone | [facility] | Fiona Anne | Results | | 2019 | | MED CTR RADIATION | MD Issa [address] | | | | | ONCOLOGY CLINIC [address] | [address] [place], [place] | | | | | [place] | [address] | | | | | [place] [address] | | | | | | [phone] | | | +--------+ + + + [...] Telephone Encounter - Perla Duenas RN - 02/14/2019 3:27 PM PDTPatient returns phone call, results provided to patient as directed by Dr. Anne and according to the mele n. Patient had some questions regarding PFT and the different aspects of the results, these questions were answered to patient's satisfaction. Patient verbalizes her understanding and has no further questions at this time. Electronically signed by Perla Duenas RN at 3:28 PM PDTTelephone Encounter - Perla Duenas RN - 02/14/2019 3:09 PM PDTCa ll placed to patient, to provide results as directed by Dr. Anne. No answer, left vm requ esting a call back. ----- Message from Fiona Anne MD sent at 02/14/2019 14:57 PDT ----- Please inform Sussy Allred of her PFT results, per Dr. Cade's Impression. IMPRESSION: Spirometry is consistent with normal physiology. Lung volume testing is consistent with normal physiology. Diffusion capacity is moderately reduced and is corrected for measured hemoglobin. documented in this encounter Plan of Treatment [...] | | | | | [place] [address] | | | | | | [phone] | | | | | | | | +--------+ + + + + documented as of this encounter Visit Diagnoses Not on filedocumented in this encounter"
--- OUTSIDE RECORDS SUMMARY | ~2020-03-30 | XMS | Encounter Summary ---
Demographics + + + | Address | [address] | | | [place] [address] | + + + | Home Phone [...] Providers + +------+ + | Care Business Administration Professor Name | Role | Phone | + +------+ + | Lauryn Stuart | PCP | | + +------+ + Encounter Details +--------+ + + + + | Date | Type | Department | Care Team | Description | +--------+ + + + + | 10/10/ | Pharmacy | Pharmacy @ [facility] | | | | 2019 | Visit | [address] | | | | | | [address] Mailcode: | | | | | | [facility] | | | | | | and Healing, | | | | | | [address] | | | | | | [place], [place] | | | | | | [address] | | | +--------+ + + + [...] | | | | | | [place] [address] | | | | | | [phone] | | | | | | | | +--------+---------+ + + + | 04/30/ | Office | Otolaryngology | Augustine Nolan | | | 2019 | Visit | | MD Debbie [address] | | | | | | [address] | | | | | | [place] | | | | | | [address] | | | | | | [phone] | | | | | | | | +--------+---------+ + + + documented as of this encounter Visit Diagnoses Not on filedocumented in this encounter
--- OUTSIDE RECORDS SUMMARY | ~2020-03-30 | XMS | Encounter Summary ---
Demographics + + + | Address | [address] | | | [place] [address] | + + + | Home Phone | | + + + | Preferred Language | Unknown | + + + | Marital Status | Single | + + + | Rastafari Affiliation | Unknown | + + + | Race | Unknown | + + + | Ethnic Group | Unknown | + + + Author + + + | Author | [facility] | | | and Jakobana | + + + | Organization | [facility] | | [...] + +------+ + | Care Tenter Frame Operator Name | Role | Phone | [...] | | [place] | [place] [address] | | | | | [place] [address] | | | | | | [phone] | | | +--------+ + + + [...] | | | | | [place] [address] | | | | | | [phone] | | | | | | | [...]
--- OUTSIDE RECORDS SUMMARY | ~2020-03-30 | XMS | Encounter Summary ---
Demographics + + + | Address | [address] | | | [place] [address] | + + + | Home Phone | | + + + | Preferred Language | Unknown | + + + | Marital Status | Single | + + + | Anglican Affiliation | Unknown | + + + | Race | Unknown | + + + | Ethnic Group | Unknown | + + + Author + + + | Author | [facility] | | | and Jakobana | + + + | Organization | [facility] | | | and [...] Team Providers + +------+ + | Care Inspector Open Die Name | Role | Phone | + +------+ + | Lauryn Stuart PA-C | PCP | | + +------+ + Reason for Referral Diagnostic/Screening (Routine) + +--------+ + + + + | Status | Reason | Specialty | Diagnoses / | Referred By | Referred To | | | | | Procedures | Contact | Contact | + +--------+ + + + + | Pending | | Radiology | Diagnoses | Dayana | JONATHAN | | Review | | | Malignant | Fiona Parsons, | VALENTIN | | | | | neoplasm of | MD [address] | [facility] | | | | | upper lobe | [address] | MEDICAL | | | | | of left lung | [place], | CENTER [address] | | | | | (HCC) | [place] [address] | [place] | | | | | Procedures | Phone: | [place], | | | | | CT Chest w | [phone] | [place] [address] | | | | | Contrast | Fax: | Phone: | | | | | JUN 2020 | [phone] | [phone] | | | | | | | Fax: | | | | | | | [phone] | + +--------+ + + + + Encounter Details +--------+ + + + + | Date | Type | Department | Care Team | Description | +--------+ + + + + | 01/13/ | Orders Only | [facility] | Fiona Anne | Malignant neoplasm | 2019 | | MED CTR RADIATION | MD Issa [address] | of upper lobe of | | | | ONCOLOGY CLINIC [address] | [place], [place] | left lung (HCC) | | | | [address] | [address] | (Primary Dx) | | | | [place] [address] | | | | | | [phone] | | | +--------+ + + + [...] | | | | | | [place] [address] | | | | | | [phone] | | | | | | | | +--------+ + + + + + +---------+--------+ + + | Name | Type | Priori | Associated Diagnoses | Order Schedule | | | | ty | | | + +---------+--------+ + + | CT Chest w Contrast | Imaging | Routin | Malignant neoplasm | Expected: | | | | e | of upper lobe of | 07/16/2020, Expires: | | | | | left lung (HCC) | 01/13/2021 | + +---------+--------+ + + documented as of this encounter Visit Diagnoses + + | Diagnosis | + + | Malignant neoplasm of upper lobe of left lung (HCC) - Primary | + + documented in this encounter"
--- OUTSIDE RECORDS SUMMARY | ~2020-03-30 | XMS | Encounter Summary ---
Demographics + + + | Address | [address] | | | [place] [address] | + + + | Home Phone [...] Team Providers + +------+ + | Care Muck Hauler Name | Role | Phone | + [...] | with | | | | at [facility] [address] | | An | | | | [facility] [place] for | | | | | | Health and Healing, | | | | | | [address] | | | | | | [place], [place] | | | | | | [address] | | | | | | [phone] | | | +--------+ + + + [...] [place] | | | | | | [place] [address] | | | | | | [phone] | | | | | | | | +--------+---------+ + + + | 04/30/ | Office | Otolaryngology | Augustine Nolan | | | 2019 | Visit | | MD Debbie [address] | | | | | | [address] | | | | | | [place] | | | | | | [address] | | | | | | [phone] | | | | | | | | +--------+---------+ + + + documented as of this encounter Visit Diagnoses Not on filedocumented in this encounter
--- OUTSIDE RECORDS SUMMARY | ~2020-03-30 | XMS | Encounter Summary ---
Demographics + + + | Address | [address] | | | [place] [address] | + + + | Home Phone [...] | Author | [facility] | | | and Jakobana | + + + | Organization | [facility] | | | and [...] Team Providers + +------+ + | Care Shop Welder Name | Role | Phone | + +------+ + | Lauryn Stuart PA-C | PCP | | + +------+ + Reason for Visit + +--------+ + | Reason | Onset | Comments | | | Date | | + +--------+ + | Patient Concerns | 03/31/ | | | | 2019 | | + +--------+ + Encounter Details +--------+ + + + + | Date | Type | Department | Care Team | Description | +--------+ + + + + | 03/31/ | Telephone | [facility] | Adolfo, | Patient Concerns | | 2019 | | MED CTR MEDICAL | Boubacar Daniels MD [address] | | | | | ONCOLOGY CLINIC [address] | [facility] | | | | | [address] [place] | [address] [place], [place] | | | | | [place] [address] | [address] | | | | | [phone] | | | +--------+ + + + [...] Telephone Encounter - Boubacar Mata MD - 03/31/2019 12:37 PM PDTNoted. Electronically signed by: Boubacar Mata MD 03/31/2019 12:38 elephone Encou nter - Adelita Elizalde RN - 03/31/2019 12:22 PM PDTCall returned: patient states seen in ER at [facility] yesterday for stabbing and burning in chest, upper back, neck and down both arm s. CT scan done then which "came back okay". This pain is almost constant at 8/10, after Hy drocodone 7.5 mg/325 mg takes pain down to 7/10. Nausea and emesis present since yesterday. Unable to swallow very well with odynophagia and dysphagia present. Patient asking to see Dr Mata today please, added to schedule. elephone Encounter - Bassam Molina - 03/31/2019 12:02 PM PDTPt called, she would like to see either a doctor on t med onc side or rad onc side when she comes in for RAD today, was in ER at [facility] on Sunday with chest pain and SOB If possible please call before she heads in for RAD Thank you documented in this encbrian nter Plan of Treatment +--------+ + + + + | Date | Type | Specialty | Care Team | Description | +--------+ + + + + | 04/20/ | Appointment | Radiation Oncology | Treva Ortega | | | 2019 | | | DEISY Hernandez [address] | | | | | | [place] [address] | | | | | | [place] [address] | | | | | | [phone] | | | | | | | | +--------+ + + + + documented as of this encounter Visit Diagnoses Not on filedocumented in this encounter
--- OUTSIDE RECORDS SUMMARY | ~2020-03-30 | XMS | Encounter Summary ---
Demographics + + + | Address | [address] | | | [place] [address] | + + + | Home Phone [...] | Author | [facility] | | | and Jakobana | + + + | Organization | [facility] | | | and [...] Team Providers + +------+ + | Care Transverse Abdominal Muscle Surgeon Name | Role | Phone | + [...] neoplasm of | Boubacar Daniels, | [address] | | | | | unspecified | MD [address] | [place], | | | | | part of | [facility] | [place] [address] | | | | | unspecified | [address] | Phone: | | | | | bronchus or | [place], | [phone] | | | | | lung (HCC) | [place] [address] | Fax: | | | | | Procedures | Phone: | [phone] | | | | | [place] VITAMIN | [phone] | | | | | | B12 | Fax: | | | | | | INJECTION, | [phone] | | | | | | [address] [place] | | | | | | | ONDANSETRON | | | | | | | ORAL [place] | | | | | | | ORAL | | | | | | | DEXAMETHASON | | | | | | | E, .25 MG | | | | | | | KS INJ., | | | | | | | APREPITANT, | | | | | | | 1 MG KS | | | | | | | PEMETREXED | | | | | | | INJECTION, | | | | | | | 10 MG KS | | | | | | | CARBOPLATIN | | | | | | | INJECTION, | | | | | | | 50 MG KS | | | | | | | ADRENALIN | | | | | | | EPINEPHRINE | | | | | | | INJECT, .1 | | | | | | | MG KS | | | | | | | DIPHENHYDRAM | | | | | | | INE HCL | | | | | | | INJECTIO, 50 | | | | | | | MG [place] | | | | | | | METHYLPREDNI | | | | | | | SOLONE | | | | | | | INJECTION, | | | | | | | 125 MG KS | | | | | | | ALBUTEROL | | | | | | | COMP CON, 1 | | | | | | | MG KS | | | | | | | ALBUTEROL | | | | | | | NON-COMP | | | | | | | CON, 1 MG | | | | | | | KS | | | | | | | INJECTION, | | | | | | | FAMOTIDINE, | | | | | | | 20 MG KS | | | | | | | NORMAL | | | | | | | SALINE | | | | | | | SOLUTION | | | | | | | INFUS, 500 | | | | | | | ML [place] | | | | | | | NORMAL | | | | | | | SALINE | | | | | | | SOLUTION | | | | | | | INFUS, 250 | | | | | | | ML KS | | | | | | | STERILE | | | | | | | WATER/SALINE | | | | | | | , 10 ML KS | | | | | | | CHEMOTHER, | | | | | | | IV PUSH,EA | | | | | | | ADD DRUG KS | | | | | | | CHEMOTHER, | | | | | | | IV INFUSION, | | | | | | | 1 HR KS | | | | | | | CHEMOTHER, | | | | | | | IV INFUSION, | | | | | | | EA HR KS | | | | | | | CHEMOTHER,NO | | | | | | | N-HORMONE | | | | | | | ANTI-NEOPL, | | | | | | | SUB-Q/IM KS | | | | | | | CHEMOTHER | | | | | | | HORMON | | | | | | | ANTINEOPL | | | | | | | SUB-Q/IM KS | | | | | | | | | | | | | | PALONOSETRON | | | | | | | HCL, 25 [address] | | | +--------+--------+ + + + + Encounter Details +--------+ + + + + | Date | Type | Department | Care Team | Description | +--------+ + + + + | 04/23/ | Hospital | [facility] | Adolfo, | 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 | | | | INFUSION [address] | [address] [place] | left lung (HCC) | | | | [place], | [address] [place], [place] | (Primary Dx) | | | | [place] [address] | [address] | | | | | [phone] | | | +--------+ + + + [...] + + + | Blood Pressure | 116/66 | 04/23/2019 1:45 PM | | | | | PDT | | + + + + + | Pulse | 105 | 04/23/2019 1:45 PM | | | | | PDT | | + + + + + | Temperature | 36.7 C (98.1 F) | 04/23/2019 1:45 PM | | | | | PDT | | + + + + + | Respiratory Rate | 16 | 04/23/2019 1:45 PM | | | | | PDT | | + + + + + | Oxygen Saturation | 99% | 04/23/2019 1:45 PM | | | | | PDT [...] encounter Progress Notes Hellen Barron RN - 04/23/2019 3:26 PM PDTDischarged verified upcoming appointments. Bailee Dominguez RN - 04/23/2019 1:48 PM PDTEnergy level: since yesterday her energy has improved. States she tried putting 2 patches of fentanyl yesterday and she states that this really helped. Fever or chills: no issues Appetite: slowly improving- she did eat cheerios today. Nausea and/or vomiting: no nausea since sunday Bowels: slowly getting to be normal. Numbness and tingling: tingling in fingers continues, nothing worse. Bleeding or bruising: bruise on left forearm without circumstance, no other issues with ble eding or bruising. Susan: 80 Nurses notes: Here for fluid infusion today, overall she is feeling much better today after fluids and increase in pain medication yesterday. documented in thi s encounter Plan of [...] | | | | | | [place] [address] | | | | | | [phone] | | | | | | | [...] heparin 100 units/mL flush | Given | 04/23/20 | 500 | | | | injection 500 Units 500 Units (5 | | 19 3:24 | Units | | | | mL), Intracatheter, PRN, Line | | PM PDT | | | | | Care, Starting 04/23/19 at 1339 | | | | | | + +--------+ +-------+------+------+ +---+---+ | | | +---+---+ + +---------+ +---+-------+---+ | sodium chloride 0.9% (NS) | New Bag | 04/23/20 | | 500 | | | infusion at 500 mL/hr, | | 19 2:06 | | mL/hr | | | Intravenous, ONCE, 04/23/19 at | | PM PDT | | | | | 1400, For 1 dose, 1000 cc ns iv | | | | | | | over 2 hours., | | | | | | + +---------+ +---+-------+---+ +---+---+ | | | +---+---+ documented in this encounter"
--- OUTSIDE RECORDS SUMMARY | ~2020-03-30 | XMS | Encounter Summary ---
Demographics + + + | Address | [address] | | | [place] [address] | + + + | Home Phone [...] + + + | Author | [facility] | + + + | Organization | [facility] | + + + | Address | Unknown | + + + | Phone | Unavailable | + + + Support + + +---------+ + | Name | Relationship | Address | Phone | + + +---------+ + | Laura Allred | ECON | Unknown | | + + +---------+ + Care Team Providers + +------+ + | Care Teacher Adventure Education Name | Role | Phone | + [...] | | | | CONSULT TO | [facility] | [place] for | | | | | ENT GENERAL | Rd | Health and | | | | | THIS XAVI | [facility] [place] | Healing, | | | | | IS FOR | [address] | [address] | | | | | CONSULT/OV/S | Phone: | [place], [place] | | | | | COPE[place]STROBE | [phone] | [address] | | | | | ONLY: not | Fax: | Phone: | | | | | [place] | [phone] | [phone] | | | | | | | Fax: | | | | | | | [phone] | +--------+--------+ + + + + Encounter Details +--------+ + + + + | Date | Type | Department | Care Team | Description | +--------+ + + + + | 12/16/ | Outreach Clinician | Cardiothoracic | Heladio Francisco, | Vocal cord paralysis | | 2019 | | Surgery at [facility] [address] | PA-C [address] | (Primary Dx) | | | | [address] | [address] | | | | | Physician's | [place], [place] | | | | | [address], 2nd floor | [address] | | | | | [place], [place] | [phone] | | | | | [address] | | | | | | [phone] | | | +--------+ + + + [...] | | 2019 | Visit | | [address] | | | | | | [place], | | | | | | [place] [address] | | | | | | [phone] | | | | | | | | +--------+---------+ + + + | 04/30/ | Office | Otolaryngology | Augustine Nolan | | | 2020 | Visit | | MD Debbie [address] [facility] | | | | | | [address] | | | | | | [place], [place] | | | | | | [address] | | | | | | [phone] | | | | | | | | +--------+---------+ + + + documented as of this encounter Visit Diagnoses + + | Diagnosis | + + | Vocal cord paralysis - Primary Paralysis of vocal cords or larynx, unspecified | + + documented in this encounter
--- OUTSIDE RECORDS SUMMARY | ~2020-03-30 | XMS | Encounter Summary ---
Demographics + + + | Address | [address] | | | [place] [address] | + + + | Home Phone | | + + + | Preferred Language | Unknown | + + + | Marital Status | Single | + + + | Confucianism Affiliation | Unknown | + + + | Race | Unknown | + + + | Ethnic Group | Unknown | + + + Author + + + | Author | [facility] | | | and Jakobana | + + + | Organization | [facility] | | | and [...] Team Providers + +------+ + | Care Heel Attacher Name | Role | Phone | + [...] Malignant | Fiona M, | [address] | | | | | neoplasm of | MD [address] | [place], | | | | | upper lobe | [address] | [place] | | | | | of left lung | [place], | [address] | | | | | (HCC) | [place] [address] | Phone: | | | | | Procedures | Phone: | [phone] | | | | | MRI Brain w | [phone] | Fax: | | | | | wo Contrast | Fax: | [phone] | | | | | | [phone] | | +--------+--------+ + + + + Reason for Visit + + + | Reason | Comments | + + + | Under Treatment | | + + + Encounter Details +--------+ + + + + | Date | Type | Department | Care Team | Description | +--------+ + + + + | 03/06/ | Hospital | [facility] | Fiona Anne | Malignant neoplasm | | 2019 | Encounter | MED CTR RADIATION | MD Issa [address] | of upper lobe of | | | | ONCOLOGY CLINIC [address] | [place], [place] | left lung (HCC) | | | | [address] [place] | [address] | (Primary Dx) | | | | [place] [address] | | | | | | [phone] | | | +--------+ + + + [...] + + + | Blood Pressure | 130/72 | 03/06/2019 2:13 PM | | | | | PDT | | + + + + + | Pulse | 92 | 03/06/2019 2:13 PM | | | | | PDT | | + + + + + | Temperature | - | - | | + + + + + | Respiratory Rate | 18 | 03/06/2019 2:13 PM | | | | | PDT | | + + + + + | Oxygen Saturation | 100% | 03/06/2019 2:13 PM | | | | | PDT | | + + + + + | Inhaled Oxygen | - | - | | | Concentration | | | | + + + + + | Weight | 54.1 kg (119 lb 4.3 | 03/06/2019 2:13 PM | | | | oz) | PDT | | + + + + + | Height | - | - | | + + + + + | Body Mass Index | 19.87 | 01/30/2019 2:26 PM | | | [...] encounter Progress Notes Fiona Anne MD - 03/06/2019 2:18 PM PDT Radiation Oncology Weekly On Treatment Note Diagnosis: ICD-10-CM ICD-9-CM 1. Malignant neoplasm of upper lobe of left lung (HCC) C34.12 162.3 Reason for visit: On treatment evaluation Radiation technical factors: Dose Delivered Dose Planned Fractions Delivered 1200 cGy 5000 cGy 02/11 Images were reviewed this week and results [...] prior to encounter. Pain assessment: Location: left chest, left back, headache Pain Level: PAIN PROG PAIN LEVEL: 7 Pain Quality: Sharp Current pain regimen: hydrocodone as needed Wt Readings from Last 3 Encounters: 03/06/19 54.1 kg (119 lb 4.3 oz) 03/06/19 53.9 kg (118 lb 13.3 oz) 02/27/19 54.3 kg (119 lb 11.4 oz) Vitals: 03/06/19 1413 BP: 130/72 Pulse: 92 Resp: 18 TempSrc: Temporal SpO2: 100% Weight: 54.1 kg (119 lb 4.3 oz) Physical Exam Constitutional: She is oriented to person, place, and time. She appears well-developed and well-nourished. Eyes: Pupils are equal, round, and reactive to light. Lymphadenopathy: Soft fullness of left SC Neurological: She is alert and oriented to person, place, and time. Psychiatric: She has a normal mood and affect. Nurse Assessment and Toxicity Grading: Toxicity Flowsheet 03/06/2019 Fatigue 1 - Grade 1 Cough 1 - Grade 1 Dyspnea 2 - Grade 2 Karnofsky Performance Score 70% Lab Results Component Value Date WBC 2.7 (L) 03/06/2019 HGB 11.5 03/06/2019 HCT 35.4 03/06/2019 MCV 91.0 03/06/2019 PLT 256 03/06/2019 Lab Results Component Value Date CREA 0.75 03/06/2019 BUN 19 03/06/2019 NA 134 (L) 03/06/2019 K 3.8 03/06/2019 CL 101 03/06/2019 CO2 25 03/06/2019 Lab Results Component Value Date ALT 14 03/06/2019 AST 24 03/06/2019 ALKPHOS 92 03/06/2019 BILITOT 0.6 03/06/2019 Physician Assessment: Katharina is starting her second week of chemoradiotherapy. She has a new moderate headache, co nstant, "vice like", worse at night. Mild nausea, no vomiting. Notes worsening vision with decreased fisual field on the left and decrease visual acuity. Constipation. Chest/esophag us discomfort pressure and heartburn sensations. Disposition: - Continue radiation treatment as planned. - Continue concurrent chemotherapy per Dr. Mata. - Increase lansoprazole to 30 mg BID. - Increased fluids and take miralax for constipation. She also plans to try ativan instead of zofran for nausea. - Dr. Mata ordered US to evaluate Lt SC fullness. - MRI brain requested due to headache and vision changes. Fiona Anne MD Radiation Oncologist documented in this encounter Plan of Treatment +--------+ + + + + | Date | Type | Specialty | Care Team | Description | +--------+ + + + + | 04/20/ | Appointment | Radiation Oncology | Treva Ortega | | | 2019 | | | DEISY Hernandez [address] | | | | | | [address] [facility] | | | | | | [place] [address] | | | | | | [phone] | | | | | | | [...]
--- OUTSIDE RECORDS SUMMARY | ~2020-03-30 | XMS | Encounter Summary ---
Demographics + + + | Address | [address] | | | [place] [address] | + + + | Home Phone [...] Team Providers + +------+ + | Care Internet Network Specialist Name | Role | Phone | [...] [place], | | | | | ([facility]) | [place], [place] | [place] [address] | | | | | Procedures | [address] | Phone: | | | | | CONSULT TO | Phone: | [phone] | | | | | RADIATION | [phone] | Fax: | | | | | ONCOLOGY | Fax: | [phone] | | | | | | [phone] | | +--------+--------+ + + + + [...] neoplasm of | PA-C [address] [facility] | | | | | lung, | [facility] | [facility] | | | | | unspecified | [facility] | Rd | | | | | laterality, | Rd | [place], [place] | | | | | unspecified | [place], [place] | [address] | | | | | part of lung | [address] | Phone: | | | | | (HCC) | Phone: | [phone] | | | | | Procedures | [phone] | Fax: | | | | | CONSULT TO | Fax: | [phone] | | | | | RADIATION | [phone] | | | | | | ONCOLOGY | | | +--------+--------+ + + + + Encounter Details +--------+---------+ + + + | Date | Type | Department | Care Team | Description | +--------+---------+ + + + | 01/24/ | Office | Radiation Oncology | Deven Givens, | Malignant neoplasm | | 2019 | Visit | at [facility] [address] | [address] | of upper lobe of | | | | [address] | [facility] [address] | left lung (HCC) | | | | Pavilion, 4th floor | [place], [place] | (Primary Dx) | | | | [place], [place] | [address] | | | | | | [phone] | | | | | [phone] | | | +--------+---------+ + + + [...] follow-up with the Medical Oncology team in [place] to discuss star ting your adjuvant chemotherapy. We have placed a referral to [facility] in [facility] to the Radiation Oncology Department. Perhaps Dr. Mata can help get things arranged when you meet him. If not, please call our department at [phone] and we can try to help with [...] re. Deven Givens Jr., MD Attending Physician [facility] Radiation Medicine Service Kris Jimenez R N [...] pt was given the Introduction to the [facility] Radiation Oncology Department pt information handout for review. [employer] l video was started as a visual aid for the patient.The patient lives in [facility] [place] [facility] [place], and will drive herself to treatments. Transportation [...] showed CORNELIO. Ms. Allred met with Dr. Kumar on 11/22 who ordered completion staging studies [...] pursue this closer to her home in [place], [place]. The patient is being seen today [...] disease Neg Hx REVIEW OF SYSTEMS: The [facility] Radiation Oncology Questionnaire was completed by the [...] IMAGING: CT Chest 10/11/18 PET/CT 10/23/2018 EXAM: [facility] professional interpretation of outside study: OUTSIDE CHEST READ DATE OF IMAGE ACQUISITION: 10/11/2018 DATE OF [facility] INTERPRETATION: 12/25/2018 HISTORY: Poorly differentiated invasive adenocarcinoma [...] Allred is a 68 y.o. female with [id number] Stage IIIA adenocarcinoma of the lung s/p [...] fractionation over 5.5-6 weeks. We discussed ac klamath side-effects of RT to include fatigue, sore swallowing and pneumonitis. Late complicatio ns of pneumonitis, accelerated CAD. Logistics of simulation and daily treatments for 5-6 wee ks were described. We have placed a referral to Radiation Oncology in [place], [place] to facilitate consultati on and arrange [...] | | 2019 | Visit | | [address] | | | | | | [place], | | | | | | [place] [address] | | | | | | [phone] | | | | | | | | +--------+---------+ + + + | 04/30/ | Office | Otolaryngology | Augustine Nolan | | 2019 | Visit | | MD Debbie [address] | | | | | | [address] | | | | | | [place], [place] | | | | | | [address] | | | | | | [phone] | | | | | | | | +--------+---------+ + + + documented as of this encounter Visit Diagnoses + + | Diagnosis | + + | Malignant neoplasm of upper lobe of left lung (HCC) - Primary | + + documented in this encounter
--- OUTSIDE RECORDS SUMMARY | ~2020-03-30 | XMS | Encounter Summary ---
Demographics + + + | Address | [address] | | | [place] [address] | + + + | Home Phone [...] Team Providers + +------+ + | Care Word Processor Operator Name | Role | Phone | [...] | | | | | unspecified | [place], [place] | Health and | | | | | laterality, | [address] | Healing, | | | | | unspecified | Phone: | Building [address] | | | | | part of lung | [phone] | [place], [place] | | | | | (HCC) | Fax: | [phone] | | | | | Procedures | [phone] | Phone: | | | | | CONSULT TO | | [phone] | | | | | HEMATOLOGY / | | Fax: | | | | | ONCOLOGY | | [phone] | | | | | PRACTICE [place] | | | | | | | NEW PATIENT | | | | | | | LEVEL V UT | | | | | | | [...] | | | [facility] [address] | [place], [place] | left lung (HCC) | | | | [facility] | [address] | (Primary Dx) | | | | [facility] and Healing, | [phone] | | | | | [address] | | | | | | [place], [place] | | | | | | [address] | | | | | | [phone] | | | +--------+---------+ + + + [...] patient lives in [facility] in [place] and 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 She has recovered well from surgery and plans to recei ve adjuvant treatment near her home in [place]. Social History: She is and has 2 grownup children. Works at [employer] in [place]. She had a 7 pack-year smoking history, [...] This could be easily arranged for in [place] near her home in [place], and we will send a referral to a local medical oncology practice to arrange for 4 cycles of adjuvant postoperative chemotherapy with carboplatin and pemetrexed. She will a lso benefit from adjuvant radiation to the mediastinum due to the presence of multi-station lymph node involvement and this too could be arranged for locally in [place]. I discuss ed the details of the treatment with the patient, the rationale for adjuvant chemotherapy an d radiation therapy. We will send a referral to a local oncology practice, and she will con tact us if she has additional questions. I spent 35 minutes with the patient. All her questions were answered. More than 50% of my time was spent in [id number] counseling with the patient as well as coordination of care. In addition, I also spent an hour and 25 minutes reviewing her past medical records. Gi Barber MD MAYURI/MODL /[id number] documented in this en counter Plan of Treatment +--------+---------+ + + + | Date | Type | Specialty | Care Team | Description | +--------+---------+ + + + | 04/30/ | Office | Speech Therapy | Barbra Ramirez SLP | | | 2019 | Visit | | [address] | | | | | | [place], | | | | | | [place] [address] | | | | | | [phone] | | | | | | | | +--------+---------+ + + + | 04/30/ | Office | Otolaryngology | Augustine Nolan | | | 2019 | Visit | | MD Debbie [address] | | | | | | [address] | | | | | | [place], [place] | | | | | | [address] | | | | | | [phone] | | | | | | | | +--------+---------+ + + + documented as of this encounter Visit Diagnoses + + | Diagnosis | + + | Malignant neoplasm of upper lobe of left lung (HCC) - Primary | + + documented in this encounter
--- OUTSIDE RECORDS SUMMARY | ~2020-03-30 | XMS | Encounter Summary ---
Demographics + + + | Address | [address] | | | [place] [address] | + + + | Home Phone | | + + + | Preferred Language | Unknown | + + + | Marital Status | Single | + + + | Sabianism Affiliation | Unknown | + + + | Race | Unknown | + + + | Ethnic Group | Unknown | + + + Author + + + | Author | [facility] | | | and Jakobana | + + + | Organization | [facility] | | [...] Team Providers + +------+ + | Care Lap Machine Operator Name | Role | Phone [...] neoplasm of | Boubacar Daniels, | [address] | | | | | unspecified | MD [address] | [place], | | | | | part of | [place] | [place] [address] | | | | | unspecified | [address] | Phone: | | | | | bronchus or | [place], | [phone] | | | | | lung (HCC) | [place] [address] | Fax: | | | | | Procedures | Phone: | [phone] | | | | | LA VITAMIN | [phone] | | | | | | B12 | Fax: | | | | | | INJECTION, | [phone] | | | | | | [address] | | | | | | | ONDANSETRON | | | | | | | ORAL LA | | | | | | | ORAL | | | | | | | DEXAMETHASON | | | | | | | E, .25 MG | | | | | | | LA INJ., | | | | | | | APREPITANT, | | | | | | | 1 MG LA | | | | | | | PEMETREXED | | | | | | | INJECTION, | | | | | | | 10 MG LA | | | | | | | CARBOPLATIN | | | | | | | INJECTION, | | | | | | | 50 MG LA | | | | | | | ADRENALIN | | | | | | | EPINEPHRINE | | | | | | | INJECT, .1 | | | | | | | MG LA | | | | | | | DIPHENHYDRAM | | | | | | | INE HCL | | | | | | | INJECTIO, 50 | | | | | | | MG LA | | | | | | | METHYLPREDNI | | | | | | | SOLONE | | | | | | | INJECTION, | | | | | | | 125 MG LA | | | | | | | ALBUTEROL | | | | | | | COMP CON, 1 | | | | | | | MG LA | | | | | | | ALBUTEROL | | | | | | | NON-COMP | | | | | | | CON, 1 MG | | | | | | | LA | | | | | | | INJECTION, | | | | | | | FAMOTIDINE, | | | | | | | 20 MG LA | | | | | | | NORMAL | | | | | | | SALINE | | | | | | | SOLUTION | | | | | | | INFUS, 500 | | | | | | | ML LA | | | | | | | NORMAL | | | | | | | SALINE | | | | | | | SOLUTION | | | | | | | INFUS, 250 | | | | | | | ML LA | | | | | | | STERILE | | | | | | | WATER/SALINE | | | | | | | , 10 ML LA | | | | | | | CHEMOTHER, | | | | | | | IV PUSH,EA | | | | | | | ADD DRUG LA | | | | | | | CHEMOTHER, | | | | | | | IV INFUSION, | | | | | | | 1 HR LA | | | | | | | CHEMOTHER, | | | | | | | IV INFUSION, | | | | | | | EA HR LA | | | | | | | CHEMOTHER,NO | | | | | | | N-HORMONE | | | | | | | ANTI-NEOPL, | | | | | | | SUB-Q/IM LA | | | | | | | CHEMOTHER | | | | | | | HORMON | | | | | | | ANTINEOPL | | | | | | | SUB-Q/IM LA | | | | | | | | | | | | | | PALONOSETRON | | | | | | | HCL, 25 MCG | | | +--------+--------+ + + + + Encounter Details +--------+ + + + + | Date | Type | Department | Care Team | Description | +--------+ + + + + | 04/17/ | Hospital | [facility] | Adolfo, | 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 | | | | INFUSION [address] | left lung (HCC) | | | | [place], | [address] [place], [place] | (Primary Dx) | | | | [place] [address] | [address] | | | | | [phone] | | | +--------+ + + + [...] + + + | Blood Pressure | 123/75 | 04/17/2019 2:51 PM | | | | | PDT | | + + + + + | Pulse | 76 | 04/17/2019 2:51 PM | | | | | PDT | | + + + + + | Temperature | 37.3 C (99.1 F) | 04/17/2019 2:51 PM | | | | | PDT | | + + + + + | Respiratory Rate | 16 | 04/17/2019 2:51 PM | | | | | PDT | | + + + + + | Oxygen Saturation | 100% | 04/17/2019 2:51 PM | | | | | [...] encounter Progress Notes Vee Anderson RN - 04/17/2019 2:58 PM PDTPatient discharged in satisfactory condit ion. Discharged ambulatory. With self. To home. Verified that patient has antinausea medications at home. Future appointments and After Visit Summary (AVS) provided. Sonam Mcfarlane RN - 04/17/2019 12:59 PM PDTJudy is here for IV hydration, she ordered [place], mashed potatoes and stuffing today while she is here for lunch. She did not try to eat last night or this morning. She slept just ok. E lectronically signed by Sonam Steele RN at 04/17/2019 1:01 PM PDTdocumented in this enco unter Plan of Treatment [...] | | | | | [place] [address] | | | | | | [phone] | | | | | | | [...] heparin 100 units/mL flush | Given | 04/17/20 | 500 | | | | injection 500 Units 500 Units (5 | | 19 2:53 | Units | | | | mL), Intracatheter, PRN, Line | | PM PDT | | | | | Care, Starting [facility] 04/17/19 at | | | | | | | 1242 | | | | | | + +--------+ +-------+------+------+ +---+---+ | | | +---+---+ + +---------+ +---+-------+---+ | sodium chloride 0.9% (NS) | New Bag | 04/17/20 | | 500 | | | infusion at 500 mL/hr, | | 19 12:58 | | mL/hr | | | Intravenous, ONCE, [facility] 04/17/19 at | | PM PDT | | | | | 1300, For 1 dose, 1000 cc ns iv | | | | | | | over 2 hours., | | | | | | + +---------+ +---+-------+---+ +---+---+ | | | +---+---+ documented in this encounter"
--- OUTSIDE RECORDS SUMMARY | ~2020-03-30 | XMS | Encounter Summary ---
Demographics + + + | Address | [address] | | | [place] [address] | + + + | Home Phone [...] | Author | [facility] | | | and Jakobana | + + + | Organization | [facility] | | | and Jakobana [...] Team Providers + +------+ + | Care Child Psychology Teacher Name | Role | Phone | [...] neoplasm of | Boubacar Daniels, | [address] | | | | | unspecified | MD [address] | [place], | | | | | part of | [place] | [place] [address] | | | | | unspecified | [address] | Phone: | | | | | bronchus or | [place], | [phone] | | | | | lung (HCC) | [place] [address] | Fax: | | | | | Procedures | Phone: | [phone] | | | | | MO VITAMIN | [phone] | | | | | | B12 | Fax: | | | | | | INJECTION, | [phone] | | | | | | [address] | | | | | | | ONDANSETRON | | | | | | | ORAL MO | | | | | | | ORAL | | | | | | | DEXAMETHASON | | | | | | | E, .25 MG | | | | | | | MO INJ., | | | | | | | APREPITANT, | | | | | | | 1 MG MO | | | | | | | PEMETREXED | | | | | | | INJECTION, | | | | | | | 10 MG MO | | | | | | | CARBOPLATIN | | | | | | | INJECTION, | | | | | | | 50 MG MO | | | | | | | ADRENALIN | | | | | | | EPINEPHRINE | | | | | | | INJECT, .1 | | | | | | | MG MO | | | | | | | DIPHENHYDRAM | | | | | | | INE HCL | | | | | | | INJECTIO, 50 | | | | | | | MG MO | | | | | | | METHYLPREDNI | | | | | | | SOLONE | | | | | | | INJECTION, | | | | | | | 125 MG MO | | | | | | | ALBUTEROL | | | | | | | COMP CON, 1 | | | | | | | MG MO | | | | | | | ALBUTEROL | | | | | | | NON-COMP | | | | | | | CON, 1 MG | | | | | | | MO | | | | | | | INJECTION, | | | | | | | FAMOTIDINE, | | | | | | | 20 MG MO | | | | | | | NORMAL | | | | | | | SALINE | | | | | | | SOLUTION | | | | | | | INFUS, 500 | | | | | | | ML MO | | | | | | | NORMAL | | | | | | | SALINE | | | | | | | SOLUTION | | | | | | | INFUS, 250 | | | | | | | ML MO | | | | | | | STERILE | | | | | | | WATER/SALINE | | | | | | | , 10 ML MO | | | | | | | CHEMOTHER, | | | | | | | IV PUSH,EA | | | | | | | ADD DRUG MO | | | | | | | CHEMOTHER, | | | | | | | IV INFUSION, | | | | | | | 1 HR MO | | | | | | | CHEMOTHER, | | | | | | | IV INFUSION, | | | | | | | EA HR MO | | | | | | | CHEMOTHER,NO | | | | | | | N-HORMONE | | | | | | | ANTI-NEOPL, | | | | | | | SUB-Q/IM MO | | | | | | | CHEMOTHER | | | | | | | HORMON | | | | | | | ANTINEOPL | | | | | | | SUB-Q/IM MO | | | | | | | | | | | | | | PALONOSETRON | | | | | | | HCL, 25 MCG | | | +--------+--------+ + + + + Encounter Details +--------+ + + + + | Date | Type | Department | Care Team | Description | +--------+ + + + + | 04/18/ | Hospital | [facility] | Adolfo, | 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 | | | | INFUSION [address] [place] | left lung (HCC) | | | | [place], | [address] [place], [place] | (Primary Dx) | | | | [place] [address] | [address] | | | | | [phone] | | | +--------+ + + + [...] + + + | Blood Pressure | 113/66 | 04/18/2019 10:13 AM | | | | | PDT | | + + + + + | Pulse | 79 | 04/18/2019 10:13 AM | | | | | PDT | | + + + + + | Temperature | 36.8 C (98.2 F) | 04/18/2019 10:13 AM | | | | | PDT | | + + + + + | Respiratory Rate | 16 | 04/18/2019 10:13 AM | | | | | PDT | | + + + + + | Oxygen Saturation | 99% | 04/18/2019 10:13 AM | | | | | PDT [...] encounter Progress Notes Bailee Walker RN - 04/18/2019 11:58 AM PDTJodi tolerated fluid infusion today, marisela erated ice chips. Denies any concerns at this time. She will call in Sunday if she needs mo re IV fluids. Discharged to home in stable condition alone. Hellen Gaytan RN - 04/18/2019 10:13 AM PDTPatient arrived ambulatory for hydration reports that she is very tired today her daughters are coming to visit. Still having the epigastric pain the pa tches are mostly effective. Reports that she is still having a hard time getting food in at home has chicken broth her gogi is still burning her throat. documented in this encounter Plan of Treatment [...] | | | | | [place] [address] | | | | | | [phone] | | | | | | | [...] chloride 0.9% (NS) | New Bag | 04/18/20 | | 500 | | | infusion at 500 mL/hr, | | 19 10:12 | | mL/hr | | | Intravenous, ONCE, 04/18/19 at | | AM PDT | | | | | 0900, For 1 dose, 1000 cc ns iv | | | | | | | over 2 hours., | | | | | | + +---------+ +------+-------+------+ +---+---+ | | | +---+---+ documented in this encounter"
--- OUTSIDE RECORDS SUMMARY | ~2020-03-30 | XMS | Encounter Summary ---
Demographics + + + | Address | [address] | | | [place] [address] | + + + | Home Phone [...] Team Providers + +------+ + | Care Exit Booth Agent Name | Role | Phone | [...] | | | | CONSULT TO | [place], [place] | Floor | | | | | SURGERY - | [address] | [place], [place] | | | | | (EGS)EMERGEN | Phone: | [phone] | | | | | CY GENERAL | [phone] | Phone: | | | | | SURGERY | Fax: | [phone] | | | | | | [phone] | Fax: | | | | | | | [phone] | + +--------+ + + + + Encounter Details +--------+---------+ + + + | Date | Type | Department | Care Team | Description | +--------+---------+ + + + | 01/24/ | Office | Trauma Emergency | Kendall Taylor, | Dysphagia, | | 2019 | Visit | General Surgery at | ,PhD [address] | unspecified type | | | | [address] [address] | (Primary Dx) | | | | [address] | [place] [address] | | | | | Physicians [place], | [phone] | | | | | 2nd Floor | | | | | | [place], [place] | | | | | | [address] | | | | | | [phone] | | | +--------+---------+ + + + [...] + + + | Blood Pressure | 146/78 | 01/24/2019 2:51 PM | | | | | PDT | | + + + + + | Pulse | 66 | 01/24/2019 2:51 PM | | | | | PDT | | + + + + + | Temperature | 36.3 C (97.4 F) | 01/24/2019 2:51 PM | | | | | PDT | | + + + + + | Respiratory Rate | 16 | 01/24/2019 2:51 PM | | | | | PDT | | + + + + + | Oxygen Saturation | 100% | 01/24/2019 2:51 PM | | | | | PDT | | + + + + + | Inhaled Oxygen | - | - | | | Concentration | | | | + + + + + | Weight | 55.7 kg (122 lb 12.8 | 01/24/2019 2:51 PM | | | | oz) | PDT | | + + + + + | Height | 162.6 cm (5' 4") | 01/24/2019 2:51 PM | | | | | PDT | | + + + + + | Body Mass Index | 21.08 | 01/24/2019 2:51 PM | | | [...] documented as of this encounter Progress Notes Kendall Taylor MD,PhD - 01/24/2019 2:40 PM PDTFormatting of this note might be different fr om the original. Emergency General Surgery/Trauma Surgery Clinic Established Patient Note Date of service: 01/24/2019 SUBJECTIVE: Sussy Allred is a 68 y.o. female patient here today for removal of her PEG tube. She re ports that she is eating well and has not used it since hospital discharge. Current Medications: Current Outpatient Medications Medication Sig acetaminophen 325 [...] No current facility-administered medications for this visit. Allergies/Adverse Drug Reactions: Allergies Allergen Reactions Ketorolac Anaphylaxis Latex Rash OBJECTIVE: Vital Signs: BP 146/78 (BP Location: Right upper arm, Patient Position: Sitting) | Pulse 66 | Temp 36. 3 C (97.4 F) (Oral) | Resp 16 | Ht 1.626 m (5' 4") | Wt 55.7 kg (122 lb 12.8 oz) | S pO2 100% | BMI 21.08 kg/m | BSA 1.59 m Abd: PEG tube in the LUQ ASSESSMENT/PLAN: 1. Gastrostomy tube in place - PEG tube removed with gentle traction. Follow-up PRN. We reviewed the indications for ret urn to clinic (particularly with non-closure of the gastrostomy site. Kendall Taylor MD, PhD, FACS fibre cement moulder Division of Trauma, Critical Care & Acute Care Surgery [facility] [phone] documented in this e ncounter Plan of Treatment +--------+---------+ + + + | Date | Type | Specialty | Care Team | Description | +--------+---------+ + + + | 04/30/ | Office | Speech Therapy | Barbra Ramirez SLP | | | 2019 | Visit | | [address] | | | | | | [place], | | | | | | [place] [address] | | | | | | [phone] | | | | | | | | +--------+---------+ + + + | 04/30/ | Office | Otolaryngology | Augustine Nolan | | | 2019 | Visit | | MD Debbie [address] | | | | | | [address] | | | | | | [place], [place] | | | | | | [address] | | | | | | [phone] | | | | | | | | +--------+---------+ + + + documented as of this encounter Visit Diagnoses + + | Diagnosis | + + | Dysphagia, unspecified type - Primary | + + documented in this encounter
--- OUTSIDE RECORDS SUMMARY | ~2020-03-30 | XMS | Encounter Summary ---
Demographics + + + | Address | [address] | | | [place] [address] | + + + | Home Phone | | + + + | Preferred Language | Unknown | + + + | Marital Status | Single | + + + | Scientology Affiliation | Unknown | + + + | Race | Unknown | + + + | Ethnic Group | Unknown | + + + Author + + + | Author | [facility] | | | and Jakobana | + + + | Organization | [facility] | | | [...] Team Providers + +------+ + | Care Shaker Screen Operator Name | Role | Phone | [...] | | [address] | [place] [address] | | | | | [place] [address] | | | | | | [phone] | | | +--------+ + + + [...] | | | | | [place] [address] | | | | | | [phone] | | | | | | | [...]
--- OUTSIDE RECORDS SUMMARY | ~2020-03-30 | XMS | Encounter Summary ---
Demographics + + + | Address | [address] | | | [place] [address] | + + + | Home Phone [...] + + + | Author | [facility] | | | and Jakobana | + + + | Organization | [facility] | | | and Jakobana | [...] Team Providers + +------+ + | Care Seed Cleaner Name | Role | Phone | + +------+ + | Lauryn Stuart PA-C | PCP | | + +------+ + Encounter Details +--------+ + + + + | Date | Type | Department | Care Team | Description | +--------+ + + + + | 02/13/ | [facility] | [facility] | Fiona Anne | Malignant neoplasm | | 2019 | Encounter | MED CTR PULMONARY | MD Issa [address] | of upper lobe of | | | | FUNCTION [address] [place] | left lung (HCC) | | | | [place], | [address] | | | | | [place] [address] | | | | | | [phone] | | | +--------+ + + + [...] + + documented as of this encounter Procedure Notes Ralph Cade MD - 02/14/2019 2:30 PM PDTAssociated Order(s): PFT PULMONARY FUNCTION TESTING ORDERSProcedure(s): PFT PULMONARY FUNCTION TESTING ORDERSPre-Procedure Diagnose(s): Malignant neoplasm of upper lobe of left lung (HCC) PULMONARY FUNCTION TESTING SPIROMETRY: The FVC was 2.49 L or 85 % of predicted. The FEV1 was 1.90 L or 84 % of predict ed. FEV1/FVC ratio was 76 %. LUNG VOLUMES: The total lung capacity was 4.26 L or 84 % of predicted. The residual volume was 1.76 L or 82 % of predicted. RV/TLC ratio was 97 % of predicted. DIFFUSION CAPACITY: The diffusion capacity was 12.2 mL/mmHg per minute or 52 % of predicted . IMPRESSION: Spirometry is consistent with normal physiology. Lung volume testing is consist ent with normal physiology. Diffusion capacity is moderately reduced and is corrected for me asured hemoglobin. No prior pulmonary function tests available for comparison. Test performed: 2019 Electronically signed by: Ralph Cade MD 02/14/2019 14:30 [facility] by Ralph Cade MD at 2:31 PM PDTdocumented in this encounter Plan of [...] | | | | | [place] [address] | | | | | | [phone] | | | | | | | | +--------+ + + + + documented as of this encounter Procedures + +--------+ + + + | Procedure Name | Priori | Date/Time | Associated Diagnosis | Comments | | | ty | | | | + +--------+ + + + | PFT PULMONARY | Routin | 02/14/2019 | Malignant neoplasm | Results for this | | FUNCTION TESTING | e | 2:30 PM | of upper lobe of | procedure are in the | | ORDERS | | PDT | left lung (HCC) | results section. | + +--------+ + + + | PFT PULMONARY | Routin | 02/14/2019 | Malignant neoplasm | Results for this | | FUNCTION TESTING | e | 2:30 PM | of upper lobe of | procedure are in the | | ORDERS | | PDT | left lung (HCC) | results section. | + +--------+ + + + | PFT PULMONARY | Routin | 02/14/2019 | Malignant neoplasm | Results for this | | FUNCTION TESTING | e | 2:30 PM | of upper lobe of | procedure are in the | | ORDERS | | PDT | left lung (HCC) | results section. | + +--------+ + + + | PFT PULMONARY | Routin | 02/14/2019 | Malignant neoplasm | Results for this | | FUNCTION TESTING | e | 2:30 PM | of upper lobe of | procedure are in the | | ORDERS | | PDT | left lung (HCC) [...] Ralph Cade MD [facility]/14[facility]2019 | | [facility] | | | | |IMPRESSION: Spirometry [...] Ralph Cade MD 02/14/2019 14:30 | | |[facility] | | + + + documented in this encounter Visit Diagnoses + + | Diagnosis | + + | 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
--- OUTSIDE RECORDS SUMMARY | ~2020-03-30 | XMS | Encounter Summary ---
Demographics + + + | Address | [address] | | | [place] [address] | + + + | Home Phone [...] Team Providers + +------+ + | Care Coatings Inspector Name | Role | Phone | + +------+ + | Lauryn Stuart | PCP | | + +------+ + Encounter Details +--------+--------+ + + + | Date | Type | Department | Care Team | Description | +--------+--------+ + + + | 01/24/ | Travel | | | | | [...] | | | | | [place], | | | | | | [place] [address] | | | | | | [phone] | | | | | | | | +--------+---------+ + + + | 04/30/ | Office | Otolaryngology | Augustine Nolan | | | 2019 | Visit | | MD Debbie [address] | | | | | | [address] | | | | | | [place], [place] | | | | | | [address] | | | | | | [phone] | | | | | | | | +--------+---------+ + + + documented as of this encounter Visit Diagnoses Not on filedocumented in this encounter
--- OUTSIDE RECORDS SUMMARY | ~2020-03-30 | XMS | Encounter Summary ---
Demographics + + + | Address | [address] | | | [place] [address] | + + + | Home Phone | | + + + | Preferred Language | Unknown | + + + | Marital Status | Single | + + + | Jehovah'S Witness Affiliation | Unknown | + + + | Race | Unknown | + + + | Ethnic Group | Unknown | + + + Author + + + | Author | [facility] | | | and Jakobana | + + + | Organization | [facility] | | | and [...] Providers + +------+ + | Care Clinical Education Academic Coordinator Name | Role | Phone | [...] | | | | upper lobe | [address] | | | | | of left lung | [address] | [facility] [place], | | | | | (HCC) | [address] | [place] [address] | | | | | | [place], | Phone: | | | | | | [place] [address] | [phone] | | | | | | Phone: | Fax: | | | | | | [phone] | [phone] | | | | | | Fax: | | | | | | | [phone] | | +--------+ + + + + + Encounter Details +--------+ + + + + | Date | Type | Department | Care Team | Description | +--------+ + + + + | 04/14/ | Hospital | [facility] | Fiona Anne | Malignant neoplasm | | 2019 | Encounter | [facility] RAD[facility] | MD Issa [address] | of upper lobe of | | | | [facility]OGY CLINIC [facility] | [facility] [place] | left lung (HCC) | | | | [address] [facility] | [phone] | (Primary Dx) | | | | [place] [address] | | | | | | [phone] | | | +--------+ + + + [...] + + + | Blood Pressure | 139/64 | 04/14/2019 4:06 PM | | | | | PDT | | + + + + + | Pulse | 71 | 04/14/2019 4:06 PM | | | | | PDT | | + + + + + | Temperature | 36.2 C (97.2 F) | 04/14/2019 4:06 PM | | | | | PDT | | + + + + + | Respiratory Rate | 14 | 04/14/2019 4:06 PM | | | | | PDT | | + + + + + | Oxygen Saturation | 100% | 04/14/2019 4:11 PM | | | | | PDT | | + + + + + | Inhaled Oxygen | - | - | | | Concentration | | | | + + + + + | Weight | 55 kg (121 lb 4.1 | 04/14/2019 4:06 PM | | | | oz) | PDT | | + + + + + | Height | - | - | | + + + + + | Body Mass Index | 20.2 | 01/30/2019 2:26 PM | | | | | PDT | | + + + + + documented in this encounter Discharge Instructions Patient Instructions Rianna Genao RN - 04/14/2019 4:22 PM PDT1) Follow up appointment with Dr. Mata on 04/22/19 2) CT scan done in June 3) Follow up visit with Dr. Anne to discuss CT scan documented in this encounter Medications at Time [...] encounter Progress Notes Fiona Anne MD - 04/14/2019 3:55 PM PDT Radiation Oncology Follow-up Chief Complaint/ICD10 ICD-10-CM ICD-9-CM 1. Malignant neoplasm of upper lobe of left lung (HCC) C34.12 162.3 History of Present Illness: Lung cancer (HCC) 12/04/2018 Initial Diagnosis - Presented to her PCP Lauryn Stuart PA-C in early September with supraclavicular misha bar. - 10/09/18 Chest X-ray at [facility]: Abnormal - 10/11/18, CT Chest @ [facility]: Bilateral upper lobe spiculated masses. Left-sided mass abuts the major fissure and measures up to 2.4 cm with central necrosis. Right-sided measures up to 1.7 cm with a halo haziness, and tethers to the pleura. AP window adenopathy measuring u p to 2.1 cm, heterogeneous with mild enhancement. Suprahilar 1.5 cm necrotic lymph node. - 10/23/2018 PET/CT @ [facility]: Left upper lobe mass measures 2.2 [...] me tastatic disease. - 11/26/18 [facility]: No evidence of metastatic disease. 12/04/2018 Surgery Surgeon: Manoj Kumar MD @ [facility] - EBUS bronchoscopy with biopsy of [...] pT2a pN2. 02/27/2019 - 04/04/2019 Radiation Therapy 5 Gy in 25 fractions to left lung Sussy Allred completed radiation 2 weeks ago, she returns for close follow-up for revi ew of MRI. Radiation related symptoms: Continues to have significant esophagitis. Getting daily IV hyd ration. Weight stable. She reports pain in improving. Continues to have headache, stable. Decreased visual acuity, blurry. Peripheral neuropathy . No focal neurologic deficits. MRI of brain scheduled for today Review of systems: Constitutional: Reports energy is "not there." Reports nausea but no vomiting and taking Lo razepam more regularly. Appetite is decreased and also she can only swallow soft foods. Den ies fatigue. Denies high fevers, shaking chills, anorexia, nausea, vomiting, weight loss, or night sweats. Appetite without changes. Ear, Nose, Mouth, Throat: Reports trouble swallowing continues, ice chips "trickle down." R eports hoarse voice. Denies odynophagia, dysphagia, or tinnitus. Cardiovascular: Reports SOB on exertion. Continues to have pain related to esophagitis alth ough Fentanyl patches prescribed. Reports occasional dizziness. Denies shortness of breath, dyspnea on exertion, chest pain, palpitations or orthopnea. Respiratory: Reports dry cough continues. Denies cough, hemoptysis, or sputum production. Gastrointestinal: Reports constipation following last treatment, stool softeners are helpin g per pt. Denies abdominal pain, constipation, diarrhea, melena, or bright red blood per re ctum. Genitourinary: Reports nocturia since starting treatment. Denies hematuria or dysuria. Musculoskeletal: Back pain and chest pain related to esophagitis continues. Denies joint pa in or tenderness. Neurologic: Reports vision continues to be fuzzy; and headaches are daily. Numbness and tin gling in fingers continue. Denies headache, visual changes, or numbness/tingling of the extr emities. Endocrine: Denies peripheral edema or heat/cold intolerance. Hematologic: Denies spontaneous bruising or bleeding. Integumentary: Denies rash, wounds or other skin concerns. Pain:Reports headache pain 6/10; chest pain 8/10; back pain 8/10 Note: F/U with Dr. Anne to discuss MRI results My chart: Declined Pain assessment: Location: headache 6/10, chest pain 8/10, back pain 8/10 Pain Level: PAIN PROG PAIN LEVEL: 8 Pain Quality: Constant Current pain regimen: Ellston 10mg PRN; Fentanyl patch Current Outpatient Medications Medication Sig Dispense Refill [...] two days after chemotherapy. 40 tablet 0 lzunvlygwxFTMCJ-ptuynstxj-qevmbdau & magnesium hydroxide-simethicone (MAGIC MOUTHWASH) Take 5 [...] ing: Reported on 04/14/2019) 90 capsule 0 HYDROcodone-acetaminophen (NORCO) 10-325 mg per tablet Take 1-2 tablets by mouth every 6 hours as needed for Pain for up to 30 days. 180 tablet 0 lansoprazole (PREVACID) 30 mg [...] daily. (Patient not danii ing: Reported on 04/14/2019) 120 tablet 1 triamterene-hydrochlorothiazide (MAXZIDE-25) 37.5-25 mg per tablet Take 0.5 tablets by mouth Daily. No current facility-administered medications for this encounter. Facility-Administered Medications Ordered in Other Encounters Medication Dose Route Frequency Provider Last Rate Last Dose heparin 100 units/mL flush injection 500 Units 5 mL Intracatheter PRN Boubacar richardson MD 500 Units at 04/16/19 1344 HYDROmorphone (DILAUDID) injection 0.4-0.8 mg 0.4-0.8 mg Intravenous Q1H PRN Boubacar Mata MD Allergies Allergen Reactions Ketorolac Anaphylaxis Adhesive & Tape Dermatitis Latex Rash Intolerance No active intolerances/contraindications Vitals: 04/14/19 1606 BP: 139/64 Pulse: 71 Resp: 14 Temp: 36.2 C (97.2 F) Wt Readings from Last 3 Encounters: 04/14/19 55 kg (121 lb 4.1 oz) 04/10/19 55.4 kg (122 lb 2.2 oz) 04/03/19 55.3 kg (121 lb 14.6 oz) Physical Exam: General: Healthy appearing woman in no acute medical distress. KPS: 90 HEENT: Pupils equal, round and reactive to light. No conjunctival icterus or injection. EOM I. Oral, moist mucus membranes. Lymphatic: No cervical, supraclavicular or axillary lymphadenopathy. Cardiovascular: Regular rate and rhythm, no murmur. Pulmonary: Breath sounds heard throughout, no adventitial sounds or increased work of breat ria at rest. Abdomen: Soft, non-tender, no masses or organomegaly detected. Extremities: Upper and lower extremities warm and well perfused with no upper or lower extr emity edema. Neurologic: Alert, oriented and appropriated in conversation. CN II-IX grossly intact. Moves all 4 extremities normally with normal gait. Psychiatric: Appropriate. Labs: Lab Results Component Value Date WBC 4.5 04/10/2019 HGB 8.8 (L) 04/10/2019 HCT 26.5 (L) 04/10/2019 MCV 95.7 04/10/2019 PLT 227 04/10/2019 Lab Results Component Value Date CREA 0.71 04/10/2019 BUN 7 (L) 04/10/2019 NA 133 (L) 04/10/2019 K 3.9 04/10/2019 CL 103 04/10/2019 CO2 21 04/10/2019 Lab Results Component Value Date ALT 16 04/10/2019 AST 35 (H) 04/10/2019 ALKPHOS 87 04/10/2019 BILITOT 0.3 04/10/2019 Imaging: Imaging studies were directly visualized and my assessment of pertinent finding: Agree with radiologist, the previously mentioned enhancing areas are better visualized today as being blood vessels. No evidence of malignancy. UNENHANCED AND ENHANCED BRAIN MRI 04/14/2019 2:52 PM IMPRESSION - 1. NO EVIDENCE OF INTRACRANIAL [...] Dictated and Signed by: Lucio Her MD Assessment: ICD-10-CM ICD-9-CM 1. Malignant neoplasm of upper lobe of left lung (HCC) C34.12 162.3 Katharina is relieved by the MRI results. However, these finding do not provide an explanation for her headaches. H/A may be related to therapy and metabolic disturbances, though her labs only demonstrate mild hyponatremia. The narcotics may also be contributing to a rebound h/ a. I encouraged her to titrate of the narcotics as she is able, though under the management of Dr. Mata. Provided encouragement that she is recovering from treatment. She has been using carafate and magic mouthwash. Also on prevacid. Has a 25 mcg fentanyl patch an d takes gabapentin and Ellston 10/325 for pain. Plan: 1) Follow up appointment with Dr. Mata on 04/22/19 2) CT scan done in June 3) Follow up visit with Dr. Anne to discuss CT scan Thank you for allowing me to participate in the care of Sussy Allred. If you should hav e any questions regarding this evaluation, please do not hesitate to contact me. Fiona Anne M.D. Radiation Oncologist Department of Radiation Oncology [facility] Office: [phone] documented in this encounter Miscellaneous Notes Addendum Note - Rianna Genao RN - 04/17/2019 9:38 AM PDT Encounter addended by: Rianna Heaton RN on: 04/17/2019 9:38 Actions taken: Visit diagnoses modified, Order list changed, Diagnosis association updated documented in this encounter Plan of Treatment +--------+ + + + + | Date | Type | Specialty | Care Team | Description | +--------+ + + + + | 04/20/ | Appointment | Radiation Oncology | Treva Ortega | | | 2019 | | | DEISY Hernandez [address] | | | | | | [address] [facility] | | | | | | [place] [address] | | | | | | [phone] | | | | | | | | +--------+ + + + + documented as of this encounter Visit Diagnoses + + | Diagnosis | + + | Malignant neoplasm of upper lobe of left lung (HCC) - Primary | + + documented in this encounter
--- OUTSIDE RECORDS SUMMARY | ~2020-03-30 | XMS | Encounter Summary ---
Demographics + + + | Address | [address] | | | [place] [address] | + + + | Home Phone [...] | Author | [facility] | | | and Jakobana | + + + | Organization | [facility] | [...] Team Providers + +------+ + | Care Senior Care Provider Name | Role | Phone | + +------+ + | Lauryn Stuart PA-C | PCP | | + +------+ + Reason for Visit + +--------+ + | Reason | Onset | Comments | | | Date | | + +--------+ + | Medication Refill | 11/05/ | | | | 2020 | | + +--------+ + Encounter Details +--------+--------+ + + + | Date | Type | Department | Care Team | Description | +--------+--------+ + + + | 11/05/ | Refill | [facility] | Adolfo, | Medication Refill | | 2020 | | [facility] | Boubacar Daneils MD [address] | | | | | ON[facility]OGY CLIN[facility] [address] | [address] [facility] | | | | | [address] | [address] [place], [place] | | | | | [place] [address] | [address] | | | | | [phone] | | | +--------+--------+ + + + [...] this encounter Miscellaneous Notes Telephone Encounter - Mirian Carroll - 11/06/2019 11:13 AM PDTDestineey called and requested a refill for her hydrocodone and fentanyl to be faxed over to the [facility] pharmacy in [facility] thank you. document ed in this encounter Plan of [...] BONE | | | | | | [place] [address] | | | | | | [phone] | | | | | | | | +--------+ + + + + documented as of this encounter Visit Diagnoses + + | Diagnosis | + + | Malignant neoplasm of hilus of lung, unspecified laterality (HCC) | + + documented in this encounter"
--- OUTSIDE RECORDS SUMMARY | ~2020-03-30 | XMS | Encounter Summary ---
Demographics + + + | Address | [address] | | | [place] [address] | + + + | Home Phone [...] Team Providers + +------+ + | Care Garbage Collector Driver Name | Role | Phone | [...] | | | | | SURGERY | [place], [place] | Physician's | | | | | DRIER AND EVAPORATOR OPERATOR | [address] | Pavilion, | | | | | | Phone: | 2nd floor | | | | | | [phone] | [facility] [place] | | | | | | Fax: | [address] | | | | | | [phone] | Phone: | | | | | | | [phone] | | | | | | | Fax: | | | | | | | [phone] | +--------+--------+ + + + + Diagnostic [...] | | Neoplasm | CARLO Allen | [facility] [address] | | | | | Procedures | [address] | [address] | | | | | STRESS | Ave | [address] | | | | | DOBUTAMINE | [place], [place] | [place] | | | | | ECHOCARDIOGR | [address] | Building, 2nd | | | | | AM, ADULT | Phone: | floor | | | | | | [phone] | [place], [place] | | | | | | Fax: | [address] | | | | | | [phone] | Phone: | | | | | | | [phone] | +--------+--------+ + + + + Diagnostic [...] | MRI BRAIN | Ave | [facility] | | | | | WWO CONTRAST | [place], [place] | [facility] and | | | | | [place] MRI | [address] | Healing, | | | | | BRAIN COMBO | Phone: | Building 1, | | | | | | [phone] | 3rd Floor | | | | | | Fax: | [place], [place] | | | | | | [phone] | [address] | | | | | | | Phone: | | | | | | | [phone] | | | | | | | Fax: | | | | | | | [phone] | +--------+--------+ + + + + Reason [...] | SURGERY - | Rd | Rd [place], | | | | | CARDIOTHORAC | [place], [place] | [place] | | | | | [place] | [address] | [address] | | | | | | Phone: | Phone: | | | | | | [phone] | [phone] | | | | | | Fax: | Fax: | | | | | | [phone] | [phone] | +--------+--------+ + + + + Encounter Details +--------+---------+ + + + | Date | Type | Department | Care Team | Description | +--------+---------+ + + + | 11/22/ | Office | Cardiothoracic | Manoj Kumar MD | Neoplasm (Primary | | 2019 | Visit | Surgery at [facility] | [address] | Dx) | | | | [address] | [address] | | | | | [facility] | [place], [place] | | | | | and Healing, | [address] | | | | | [facility] 2 | [phone] | | | | | [place], [place] | | | | | | [address] | | | | | | [phone] | | | +--------+---------+ + + + [...] Name: Sussy Allred Date of : 1950 [facility] I personally reviewed the patient's CT [...] tumor board. Manoj Kumar M.D., FACS, FACCP receiving associate Section of General Thoracic Surgery Division of Cardiothoracic Surgery Alejandro Londono NP - 9:00 AM PDTGeneral Thoracic Surgery Consult Date of Service: 11/22/2018 Referring Provider: Rell Lovett MD [address] [place] [address] Primary Care Provider: MALLIKA Toledo [address] [place] [address] Reason for consult: Bilateral pulmonary nodules History [...] or pancreatic cancer? Social History: Lives in [place] , has a significant other, Collins 7 pack-year history of smoking; trying to quit; started in 2004 No significant alcohol, illicit drug, or marijuana use Works full-time at [employer] Review of Systems: General: + night sweats [...] | | | | | | [place] [address] | | | | | | [phone] | | | | | | | | +--------+---------+ + + + | 04/30/ | Office | Otolaryngology | Augustine Nolan | | | 2019 | Visit | | MD Debbie [address] | | | | | | [address] | | | | | | [place] | | | | | | [address] | | | | | | [phone] | | | | | | | [...] | | | LABORATORY | | | [facility] | | | SERVICES, | | | [...] Interpretive Information: <60 mL/min/1.73 sq m | [facility], | | Chronic Kidney Disease <15 mL/min/1.73 sq m | [facility] | | Kidney Failure Estimated GFR [...] [facility] | [address] | [place] [address] | | | SERVICES, [facility] | | | | | HEALTH [...] + + + + + | [facility] | [address] | [place] [address] | | | SERVICES, CORE | PARK [...] + + + | PULMONARY | Site: [facility] and | | [facility] | | | INTERPRETAT | [facility], [facility] | | SPECIAL | | | ION | [facility], | | DIAGNOSTICS | | | | [place], [place], | | - | | | | [address]KN: [id number] | | PULMONARY | | | | Name: SUSSY ALLRED | | FUNCTION | | | | ANNVisit Date: | | | | | | 11/26/2018 Second ID: | | | | | | [id number]: | | | | | | Aarti Hurst: 68 | | | | | | : 1950 Sex: | | | | | | Female Race: | | | | | | CaucasianHeight: 162.50 | | | | | | Cms Weight: 59.00 | | | | | | Kgs BSA: 1.63Order | | | | | | IDs: [id number] | | | | | | Test(s): [...] + + + + + + | ZWN21-41% | 1.79 | 2.00 L/sec | [facility] | | | PRE | | | SPECIAL | | | | | | DIAGNOSTICS | | | | | | - | | | | | | PULMONARY | | | | | | FUNCTION | | + + + + + + | ABD80-06% | 89 | % | [facility] | [...] [facility] | [address] | [place], [place] | | | DIAGNOSTICS - | [address] | [address] | | | PULMONARY FUNCTION | | | | + + + + + STRESS DOBUTAMINE ECHOCARDIOGRAM, ADULT (11/26/2018 11:43 AM PDT) + + | Specimen | + + | | + + + + + | Narrative | Performed At | + + + | [facility] | [facility] DEPT OF | | [facility] Adult Echocardiography Laboratory [address] | CARDIOLOGY | | [place], [place] [address] Ph: | | | Pt Name: SUSSY ALLRED | | | Study Date / Time 11/26/2018 / 11:43:08 AMMRN: [id number] | | | Most recent prior: 0Acc #: [id number] | | | No. previous echos: 0DOB: 1950 Age: 68 | | | years Gender: FHeight: 64.0 in | | | BSA: 1.62 s6Ctywps: 129 lb | | | Order ID: [id number] | | | medications: Diuretic and Aspirin.Indications: Preoperative Evaluation | | | Prizer Hand: Tania Birmingham [facility] Referring Provider: Alejandro Bishop | | | [...] Interface, Cardiology Results - 11/26/2018 1:[address] [facility] | | [facility] Echocardiography Laboratory [address] [place] [address] | | [place], [place] [address] Pt Name: SUSSY REEVES | | WINNIE Study Date / Time 11/26/2018 / 11:43:08 AMMRN: [id number] | | Most recent prior: 0Acc #: [id number] No. previous echos: 0DOB: | | 1950 Age: 68 years Gender: FHeight: 64.0 in BSA: | | 1.62 d4Wzuhdt: 129 lb Order ID: | | [id number] medications: Diuretic and Aspirin.Indications: Preoperative Evaluation | | Prizer Hand: Tania Birmingham RDCS Referring Provider: Alejandro Bishop [...] DEPT OF | [address] | [place], [place] | | | CARDIOLOGY | [facility] | [address] | | + + + + + [...] DEPT OF | [address] | [place], [place] | | | CARDIOLOGY | [address] | [address] | | + + + + + documented in this encounter Visit Diagnoses + + | Diagnosis | + + | Neoplasm - Primary Neoplasm of unspecified nature, site unspecified | + + documented in this encounter
--- OUTSIDE RECORDS SUMMARY | ~2020-03-30 | XMS | Encounter Summary ---
Demographics + + + | Address | [address] | | | [place] [address] | + + + | Home Phone | | + + + | Preferred Language | Unknown | + + + | Marital Status | Single | + + + | Zoroastrianism Affiliation | Unknown | + + + | Race | Unknown | + + + | Ethnic Group | Unknown | + + + Author + + + | Author | [facility] | | | and Jakobana | + + + | Organization | [facility] | | | and Jakobana [...] Team Providers + +------+ + | Care Special Education Secretary Name | Role | Phone | + [...] neoplasm of | Boubacar Daniels, | [place] | | | | | unspecified | MD [address] | [place], | | | | | part of | [place] | [place] [address] | | | | | unspecified | [address] | Phone: | | | | | bronchus or | [place], | [phone] | | | | | lung (HCC) | [place] [address] | Fax: | | | | | Procedures | Phone: | [phone] | | | | | [place] VITAMIN | [phone] | | | | | | B12 | Fax: | | | | | | INJECTION, | [phone] | | | | | | [address] [place] | | | | | | | ONDANSETRON | | | | | | | ORAL [place] | | | | | | | ORAL | | | | | | | DEXAMETHASON | | | | | | | E, .25 MG | | | | | | | [place] INJ., | | | | | | | APREPITANT, | | | | | | | 1 MG [place] | | | | | | | PEMETREXED | | | | | | | INJECTION, | | | | | | | 10 MG [place] | | | | | | | CARBOPLATIN | | | | | | | INJECTION, | | | | | | | 50 MG [place] | | | | | | | ADRENALIN | | | | | | | EPINEPHRINE | | | | | | | INJECT, .1 | | | | | | | MG [place] | | | | | | | DIPHENHYDRAM | | | | | | | INE HCL | | | | | | | INJECTIO, 50 | | | | | | | MG [place] | | | | | | | METHYLPREDNI | | | | | | | SOLONE | | | | | | | INJECTION, | | | | | | | 125 MG [place] | | | | | | | ALBUTEROL | | | | | | | COMP CON, 1 | | | | | | | MG [place] | | | | | | | ALBUTEROL | | | | | | | NON-COMP | | | | | | | CON, 1 MG | | | | | | | [place] | | | | | | | INJECTION, | | | | | | | FAMOTIDINE, | | | | | | | 20 MG [place] | | | | | | | NORMAL | | | | | | | SALINE | | | | | | | SOLUTION | | | | | | | INFUS, 500 | | | | | | | ML [place] | | | | | | | NORMAL | | | | | | | SALINE | | | | | | | SOLUTION | | | | | | | INFUS, 250 | | | | | | | ML [place] | | | | | | | STERILE | | | | | | | WATER/SALINE | | | | | | | , 10 ML [place] | | | | | | | CHEMOTHER, | | | | | | | IV PUSH,EA | | | | | | | ADD DRUG W[place] | | | | | | | CHEMOTHER, | | | | | | | IV INFUSION, | | | | | | | 1 HR [place] | | | | | | | CHEMOTHER, | | | | | | | IV INFUSION, | | | | | | | EA HR [place] | | | | | | | CHEMOTHER,NO | | | | | | | N-HORMONE | | | | | | | ANTI-NEOPL, | | | | | | | SUB-Q/IM [place]V | | | | | | | CHEMOTHER | | | | | | | HORMON | | | | | | | ANTINEOPL | | | | | | | SUB-Q/IM W[place] | | | | | | | | | | | | | | PALONOSETRON | | | | | | | HCL, 25 MCG | | | +--------+--------+ + + + + Encounter Details +--------+ + + + + | Date | Type | Department | Care Team | Description | +--------+ + + + + | 04/16/ | Hospital | [facility] | [place], | 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 | | | | INFUSION [address] [place] | left lung (HCC) | | | | [place], | [address] [place], [place] | (Primary Dx) | | | | [place] [address] | [address] | | | | | [phone] | | | +--------+ + + + [...] + + + | Blood Pressure | 144/71 | 04/16/2019 12:16 PM | | | | | PDT | | + + + + + | Pulse | 84 | 04/16/2019 12:16 PM | | | | | PDT | | + + + + + | Temperature | 36.7 C (98.1 F) | 04/16/2019 12:16 PM | | | | | PDT | | + + + + + | Respiratory Rate | 16 | 04/16/2019 12:16 PM | | | | | PDT | | + + + + + | Oxygen Saturation | 100% | 04/16/2019 12:16 PM | | | | | PDT [...] encounter Progress Notes Bailee Walker RN - 04/16/2019 2:28 PM PDTPatient finished with treatment today, mavis es any question or concerns. Tolerated well. She will return tomorrow for more fluid infusio n. Discharged to home in stable condition alone. rumbuBailee pearson RN - 04/16/2019 12:[address] Anne about pain in sternal area and when swa llowing. Dr. Anne has reviewed with patient her pain and anti-acid regimen just 2 days ag o and encourages patient to continue taking all medications that they have discussed. Junie muir agrees with the direction from Dr. Anne and will continue to notify us of any changes. Currently eating mashed potatoes for lunch with lots of pepper, ice chips. Electronically si gned by Bailee Walker RN at 04/16/2019 12:44 PM PDTTrumbullBailee RN - 04/16/2019 12:18 PM PDTEnergy level: fair, she is feeling sad today because she thought she would be fe eling even a little bit better now. Fever or chills: none Appetite: slightly increased, was able to eat egg this morning and drank half cup of water. Nausea and/or vomiting: none Bowels: constipation is lessening. Numbness and tingling: none Bleeding or bruising: none Karnofsky: 80 Nurses notes: Here for fluid infusion today. She states that her only concern is sternal pa in that is sharp at 8/10 today. She continues with patch currently. documented in this encounter Plan of Treatment [...] | | | | | [place] [address] | | | | | | [phone] | | | | | | | [...] heparin 100 units/mL flush | Given | 04/16/20 | 500 | | | | injection 500 Units 500 Units (5 | | 19 1:44 | Units | | | | mL), Intracatheter, PRN, Line | | PM PDT | | | | | Care, Starting 04/16/19 at | | | | | | | 1159 | | | | | | + +--------+ +-------+------+------+ +---+---+ | | | +---+---+ + +---------+ +---+-------+---+ | sodium chloride 0.9% (NS) | New Bag | 04/16/20 | | 500 | | | infusion at 500 mL/hr, | | 19 12:29 | | mL/hr | | | Intravenous, ONCE, 04/16/19 at | | PM PDT | | | | | 1215, For 1 dose, 1000 cc ns iv | | | | | | | over 2 hours., | | | | | | + +---------+ +---+-------+---+ +---+---+ | | | +---+---+ documented in this encounter"
--- OUTSIDE RECORDS SUMMARY | ~2020-03-30 | XMS | Encounter Summary ---
Demographics + + + | Address | [address] | | | [place] [address] | + + + | Home Phone | | + + + | Preferred Language | Unknown | + + + | Marital Status | Single | + + + | Jew Affiliation | Unknown | + + + | Race | Unknown | + + + | Ethnic Group | Unknown | + + + Author + + + | Author | [facility] | | | and Jakobana | + + + | Organization | [facility] | | | and Jakobana | [...] Team Providers + +------+ + | Care Drink Mixer Name | Role | Phone | + [...] | | | related pain | [address] | | | | | (acute) | [place], | [address] | | | | | (chronic) | [place] | [place], [place] | | | | | [address] | [address] | [address] | | | | | (ICD-10-CM) | Phone: | Phone: | | | | | - Malignant | [phone] | [phone] | | | | | neoplasm of | Fax: | Fax: | | | | | upper lobe, | [phone] | [phone] | | | | | left | | | | | | | bronchus or | | | | | | | lung (HCC) | | | | | | | Procedures | | | | | | | [address] | | | + +--------+ + + + + Encounter Details +--------+ + + + + | Date | Type | Department | Care Team | Description | +--------+ + + + + | 07/15/ | Hospital | [facility] | [place], | Malignant neoplasm | | 2019 | Encounter | MED CTR MEDICAL | Boubacar Daniels MD [address] | of hilus of lung, | | | | ONCOLOGY CLINIC [address] [place] | unspecified | | | | [address] [place] | [address] [place], [place] | laterality (HCC) | | | | [place] [address] | [address] | | | | | [phone] | | | +--------+ + + + [...] + + + | Blood Pressure | 158/64 | 07/15/2019 10:07 AM | | | | | PST | | + + + + + | Pulse | 73 | 07/15/2019 10:07 AM | | | | | PST | | + + + + + | Temperature | 36.2 C (97.2 F) | 07/15/2019 10:07 AM | | | | | PST | | + + + + + | Respiratory Rate | 18 | 07/15/2019 10:07 AM | | | | | PST | | + + + + + | Oxygen Saturation | 97% | 07/15/2019 10:07 AM | | | | | PST | | + + + + + | Inhaled Oxygen | - | - | | | Concentration | | | | + + + + + | Weight | 52.9 kg (116 lb 10 | 07/15/2019 10:07 AM | | | | oz) | PST | | + + + + + | Height | - | - | | + + + + + | Body Mass Index | 19.43 | 01/30/2019 2:26 PM | | | [...] patch onto | 10 | 0 | 07/15/20 | | | (DURAGESIC) 50 | the [...] | | Take one to two | 210 | 0 | 07/15/20 | | | HYDROcodone-acetamin | tablets orally every | tablet | | 19 | 9 | | ophen (NORCO) | 6 hours [...] encounter Progress Notes Boubacar Mata MD - 07/15/2019 10:20 AM PSTFormatting of this note might be differe nt from the original. Hematology/Oncology Progress Note [facility] CAROL [place]on Pt. Name/Age/: Sussy Allred 69 y.o. 1950 Med. Record Number: [id number] Date of admission: 07/15/2019 The patient's primary care provider is Lauryn Stuart PA-C. Identifying Statement: Sussy Allred is a 69 y.o. female from [address] [place] [address] with Stage IIIA poorly differentiated adenocarcinoma of [...] and hilar lymph nodes (Stacy KYMOIZ). Patholog ica specimen # [id number] was notable for a poorly differentiated adenocarcinoma, [...] Plan Sussy Allred returned to clinic on 07/15/2019 alone for follow up of her Stage IIIA a denocarcinoma of the left lung. Interval history is notable for the fact that Dr. Anne had Katharina undergo a CT of chest on July 03, 2019 that was interpreted as demonstrating radiation pneumonitis, and she star michelle Posadas on prednisone. Chief complaint is breathlessness. She also complains of post-thoracotomy pain. Clinical exam is notable for hoarseness. Images of the PET/CT scan performed on July 10, 2019 were reviewed in detail and demons trate no evidence of malignant disease. There is patchy infiltrate in the medial left lung c onsistent with pneumonitis. 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 Vocal cord paralysis. Post thoracotomy pain syndrome. Radiation pneumonitis. Plan; This was an extended, 25 minute office encounter where Katharina revealed that she has been gett ing an ongoing supply of #240 for 30 days hydrocodone from Lauryn Stuart PA-C in [place]. She is also getting hydromorphone from Lauryn Stuart as well. I gave Katharina my opinion that o btaining narcotics from multiple providers places her at risk for injury from narcotic overd ose. We had an extended discussion regarding this issue. Katharina agreed today to only obtain na rcotic prescriptions from either myself or a covering provider at the [facility]. We agreed to continue topical fentanyl at 50 mcg/hour, #10 for 30 days and [place] 7.5/325 # 210 for 30 days with the goal of reducing [place] fills by #30 with each subsequent fill. During this encounter, I also gave Katharina my opinion that her breathlessness is due to her vo vaibhav cord paralysis, and that she should return to [facility] for thyroplasty. Review of Systems: Constitutional: Pt reports severe fatigue - worsening. Pt reports nightly night sweats - on going. Denies high fevers, shaking chills, anorexia, nausea, vomiting, or weight loss. Appe tite without changes. Ear, Nose, Mouth, Throat: Pt reports worsening dysphagia recently. Pt reports intermittent plugging of ears. Pt reports worsening quality of voice. Denies odynophagia or tinnitus. Cardiovascular: Pt reports dyspnea on exertion - ongoing. Pt reports chest pain "but not th e heart". Denies shortness of breath, chest pain, palpitations or orthopnea. Respiratory: Pt reports worsening non-productive cough. Denies hemoptysis or sputum product ion. Gastrointestinal: Pt reports ongoing constipation. Denies abdominal pain, diarrhea, melena, or bright red blood per rectum. Genitourinary: Denies hematuria or dysuria. Musculoskeletal: Pt reports ongoing joint pain and tenderness. Neurologic: Pt reports ongoing headaches - unchanged. Pt reports ongoing numbness/tingling of the hands and feet. Denies visual changes. Endocrine: Denies peripheral edema or heat/cold intolerance. Hematologic: Denies spontaneous bruising or bleeding. Bruises easily. Integumentary: Pt reports recent excisional biopsy to right groin area. Denies rash, wounds or other skin concerns. Pain: Denies pain. ROS otherwise negative Note: Pt here for follow-up My chart: Declined Scheduled Medications: Current Outpatient Medications Medication Sig Dispense Refill acetaminophen (TYLENOL) 325 mg tablet Take 325-650 mg by mouth every 6 hours as needed. acetaminophen-codeine 120-12 mg/5 mL solution Take 5 mLs by mouth every 6 hours as need ed for Pain. (Patient not taking: Reported on 07/15/2019) 473 mL 0 acyclovir (ZOVIRAX) 400 MG [...] two days after chemotherapy. 40 tablet 0 doefmwmfalGFYWZ-wlrzkzvwb-vxrpzjpr & magnesium hydroxide-simethicone (MAGIC MOUTHWASH) Take 5 mLs by mouth every 4 hours as needed for Pain. (RECIPE = 1:1:1 mixture of Maalox, dip henhydrAMINE, viscous lidocaine) (Patient not taking: Reported on 07/15/2019) 237 mL 2 estradiol (ESTRACE) 2 MG [...] daily (Patient not danii ing: Reported on 07/15/2019) 90 capsule 0 HYDROcodone-acetaminophen (NORCO) 7.5-325 mg per tablet Take one to two tablets orally every 6 hours as needed for pain, maximum 7 tablets a day. 210 tablet 0 lansoprazole (PREVACID) [address] capsule Take 30 mg by mouth Daily. levothyroxine (SYNTHROID) 50 mcg tablet Take 50 mcg by mouth Daily. Lidocaine HCl (MAGIC + NYSTATIN MOUTHWASH) Take 5 mLs by mouth every 4 hours. (Patient not taking: Reported on 07/15/2019) 500 mL 2 LORazepam (ATIVAN) 1 mg tablet Take one tablet orally every 4 hours as needed for nause a, anxiety or sleeplessness 30 tablet 4 Misc Natural Products (HIMALAYAN GOJI PO) Take 2 oz by mouth Daily. mometasone (ELOCON) 0.1 % cream Apply twice a day to affected area (Patient not taking: Reported on 07/15/2019) 50 g 0 non-formulary medication Take 3 oz by mouth Daily. Nopalea supplement ondansetron (ZOFRAN ODT) 8 mg disintegrating tablet One tablet twice a day for two days after chemotherapy to block nausea 40 tablet 1 predniSONE (DELTASONE) 10 mg tablet 6 tabs daily for 1 week, then 5 daily for 1 week, t hen 4 daily for 1 wk, then 3 daily for 1 wk, then 1 daily for 1 wk, then stop 150 tablet 0 prochlorperazine 10 mg tablet Take 1 tablet [...] Last attempt to quit: 08/20/2011 Years since quittin.9 Smokeless tobacco: Never Used Substance and Sexual Activity Alcohol use: Yes Alcohol/week: 7.0 standard drinks Types: 7 Glasses of wine per week Drug use: Never Sexual activity: Not on file Lifestyle Physical activity: Days per week: Not on file Minutes per session: Not on file Stress: Not on file Relationships Social connections: Talks on phone: Not on file Gets together: Not on file Attends latter day service: Not on file Active member of [...] was cancer Macular degen Mother Objectives: Temp: 36.2 C (97.2 F) BP: 158/64 Pulse: 73 Resp: 18 SpO2: 97 % on Min/Max Temp past 24 hours:No data recorded No intake or output data in the 24 hours ending 07/20/19 1351 Wt. Admission: Weight: 52.9 kg (116 lb 10 oz) Wt. Current: Weight: 52.9 kg (116 lb 10 o z) Wt Readings from Last 3 Encounters: 07/15/19 52.9 kg (116 lb 10 oz) 07/08/19 51.6 kg (113 lb 12.1 oz) 06/17/19 52.5 kg (115 lb 11.9 oz) Physical Exam: General: The patient is alert and oriented. No acute distress. Eyes: Conjunctiva clear. Sclera anicteric. ENMT: Oropharynx fee of lesions, mucous membranes moist. Cardiovascular: Regular rate and rhythm, no rubs, gallops, or murmurs. Lungs: Clear to auscultation and percussion. Chest: Left lateral thoracotomy scar is well-healed. Extremities: Nontender, no erythema, no edema. Skin: Rosacea over the bridge of the nose. Lymph: No palpable cervical or supraclavicular lymphadenopathy. Neurological: Face symmetric, voice is hoarse. Station [...] here or in the Assessment and Plan. CT CHEST W CONTRAST 07/03/2019 9:58 AM HISTORY: restaging. COMPARISON: 10/11/2018. PROTOCOL: Axial images of the chest were obtained after uneventful administration of 70 mL Omnipaque 350. Coronal and sagittal reformations were acquired. FINDINGS: LUNGS: Post surgical changes are again seen related to left upper lobectomy. Interval development of new multifocal groundglass and more soft tissue appearing consolidative areas adjacent to the left superior and mid hilar soft tissues measuring up to 2.5 x 1.4 cm on the anterior mid left lung and measuring up to 1.5 x 1.1 cm in the posterior mid left lung. Area of groundglass consolidation is noted along the most medial aspect of the right lower lobe adjacent to the right mainstem bronchus, suspicious for infection or neoplasm. Redemonstration of a spiculated area of scarring or neoplasm in the right lung apex measuring 1.2 x 0.9 cm which is unchanged. No evidence of pneumothorax. Prominent pleural thickening and component of pleural fluid in the left lung, likely postsurgical. HEART: The heart is of normal size. VASCULATURE: Azygous fissure. Pulmonary vessels and aorta demonstrate no acute abnormalities. LYMPH NODES: No evidence of axillary, mediastinal, or hilar lymphadenopathy. MEDIASTINUM: Mild diffuse mediastinal soft tissue thickening which has significantly worsened since 2019. Enlarged bilateral hilar and mediastinal lymph nodes versus ill-defined soft tissue thickening. Soft tissue thickening surrounding the entire aorta. Neck base is normal. ABDOMEN: The upper abdomen demonstrates no acute findings. SOFT TISSUES: Chest wall structures are normal. BONES: There are no acute osseous abnormalities. Remote left rib fracture deformity. No chemically suspicious lytic or blastic lesion identified. IMPRESSION: Post surgical changes are again seen related to left upper lobectomy. Interval development of new multifocal groundglass and more soft tissue appearing consolidative areas adjacent to the left superior and mid hilar soft tissues measuring up to 2.5 x 1.4 cm on the anterior mid left lung and measuring up to 1.5 x 1.1 cm in the posterior mid left lung. Area of groundglass consolidation is noted along the most medial aspect of the right lower lobe adjacent to the right mainstem bronchus. -These findings are concerning for worsening neoplasm versus postradiation changes. Pneumonia may also remain in the differential appropriate clinical setting. -Worsening soft tissue nodularity and lymphadenopathy in the mediastinum and is also suspicious however this could represent postradiation scarring. Redemonstration of a spiculated area of scarring or neoplasm in the right lung apex measuring 1.2 x 0.9 cm which is unchanged. Dictated and Signed by: Pasha Garrison MD Electronically signed: 07/03/2019 11:[address] SKULL BASE TO MID THIGH 07/10/2019 11:31 AM HISTORY: progress study, non-small cell lung cancer. COMPARISON: 07/03/2019 PROTOCOL: The patient was initially injected with 10.5 mCi FDG F-18. After a one-hour delay, whole body PET images were acquired. Low dose nondiagnostic CT images were obtained for attenuation correction and fusion. The patient's fasting blood glucose level at the time of injection was 110 mg/dL. FINDINGS: HEAD AND NECK: Asymmetric FDG uptake within the right vocal fold and posterior right arytenoid cartilage which is new since prior examination (SUV max 6.2). CHEST: Spiculated nodule in the right lung apex measures 11 x 9 mm and demonstrates no significant FDG uptake (SUV max 0.8 compared to the background lung uptake is 0.4 and mediastinal blood pool mean uptake of 1.9). Small left dependent pleural effusion. Redemonstration of the multiple areas of consolidative/patchy groundglass areas of airspace disease along the left hilum/mediastinum which were seen on the most recent CT with mild FDG uptake (SUV max 3.1). These areas are in the direct area of the expected radiation being and may represent postradiation scarring/fibrosis with component of residual neoplasm unable to be excluded. Mild calcification are seen along the areas of pleural thickening along the left pleura adjacent mediastinum. ABDOMEN AND PELVIS: No focal mass or FDG uptake identified within the abdomen or pelvis. Diffuse diverticulosis. Other chronic findings. SOFT TISSUES AND OSSEOUS STRUCTURES: No suspicious FDG uptake is identified. IMPRESSION: Spiculated nodule in the right lung [...] Garrison MD Electronically signed: 07/10/2019 11:20 PM Pharmacovigilance: Palliative Care: Patient's Medications New Prescriptions No medications on file Modified Medications Modified Medication Previous Medication FENTANYL (DURAGESIC) 50 MCG/HR fentaNYL (DURAGESIC) 50 mcg/hr Place 1 patch onto the skin every [address]. [address] 1 patch onto the skin every 72 darian rs. HYDROCODONE-ACETAMINOPHEN (NORCO) 7.5-325 MG PER TABLET HYDROcodone-acetaminophen (NORCO) 7.5-325 mg per tablet Take one to two tablets orally every 6 hours as needed for pain, maximum 7 tablets a da y. Take 1-2 tablets by mouth every 6 hours as needed. Discontinued Medications No medications on file Requested Prescriptions Signed Prescriptions Disp Refills HYDROcodone-acetaminophen (NORCO) 7.5-325 mg per tablet 210 tablet 0 Sig: Take one to two tablets orally every 6 hours as needed for pain, maximum 7 tablets a day. fentaNYL (DURAGESIC) 50 mcg/hr 10 patch 0 Sig: Place 1 patch onto the skin every 72 hours. Procedure: Boubacar Mata MD Portions of this chart may have been created with Ganos voice recognition software. Occasi onal wrong-word or sound-alike substitutions may have occurred due to the inherent tripathi itations of voice recognition software. Please read the chart carefully and recognize, using context, where these substitutions have occurred. documented in this encounter Miscellaneous Notes Assessment & Plan Note - Boubacar Mata MD - 07/20/2019 1:38 PM PSTAssociated Prob kati(s): Lung cancer (HCC)Sussy Allred returned to clinic on 07/15/2019 alone for follow up of her Stage IIIA adenocarcinoma of the left lung. Interval history is notable for the fact that Dr. Anne had Katharina undergo a CT of chest on July 03, 2019 that was interpreted as demonstrating radiation pneumonitis, and she star michelle Posadas on prednisone. Chief complaint is breathlessness. She also complains of post-thoracotomy pain. Clinical exam is notable for hoarseness. Images of the PET/CT scan performed on July 10, 2019 were reviewed in detail and demons trate no evidence of malignant disease. There is patchy infiltrate in the medial left lung c onsistent with pneumonitis. 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 Vocal cord paralysis. Post thoracotomy pain syndrome. Radiation pneumonitis. Plan; This was an extended, 25 minute office encounter where Katharina revealed that she has been gett ing an ongoing supply of #240 for 30 days hydrocodone from Lauryn Stuart PA-C in [place]. She is also getting hydromorphone from Lauryn Stuart as well. I gave Katharina my opinion that o btaining narcotics from multiple providers places her at risk for injury from narcotic overd ose. We had an extended discussion regarding this issue. Katharina agreed today to only obtain na rcotic prescriptions from either myself or a covering provider at the [facility]. We agreed to continue topical fentanyl at 50 mcg/hour, #10 for 30 days and [place] 7.5/325 # 210 for 30 days with the goal of reducing [place] fills by #30 with each subsequent fill. During this encounter, I also gave Katharina my opinion that her breathlessness is due to her vo vaibhav cord paralysis, and that she should return to [facility] for thyroplasty. Electronically dago d by Boubacar Mata MD at 07/20/2019 1:50 PM PSTdocumented in this encounter Plan of Treatment [...] | | | | | | [place] [address] | | | | | | [phone] | | | | | | | | +--------+ + + + + documented as of this encounter Visit Diagnoses + + | Diagnosis | + + | Malignant neoplasm of hilus of lung, unspecified laterality (HCC) | + + documented in this encounter
--- OUTSIDE RECORDS SUMMARY | ~2020-03-30 | XMS | Encounter Summary ---
Demographics + + + | Address | [address] | | | [place] [address] | + + + | Home Phone | | + + + | Preferred Language | Unknown | + + + | Marital Status | Single | + + + | Scientologist Affiliation | Unknown | + + + | Race | Unknown | + + + | Ethnic Group | Unknown | + + + Author + + + | Author | [facility] | | | and Jakobana | + + + | Organization | [facility] | | | and Jakobana | [...] Team Providers + +------+ + | Care Surgical Services Asst Name | Role | Phone | + [...] + + | Closed | Specialty | Dermatology | Diagnoses | | Saroj, | | | Services | | Actinic | Adolfo | Cande | | | Required | | keratosis | Boubacar Daniels, | MD Claudia | | | | | | [address] | [address] | | | | | | [address] [facility] | [address] [place] | | | | | | [address] | [place], [place] | | | | | | [place], | [address] | | | | | | [place] [address] | Phone: | | | | | | Phone: | [phone] | | | | | | [phone] | Fax: | | | | | | Fax: | [phone] | | | | | | [phone] | | +--------+ + + + + [...] | neoplasm of | Boubacar Daniels, | [address] [place] | | | | | hilus of | MD [address] | [place], [place] | | | | | lung, | [address] [facility] | [address] | | | | | unspecified | [address] | Phone: | | | | | laterality | [place], | [phone] | | | | | ([facility]) | [place] [address] | Fax: | | | | | Procedures | Phone: | [phone] | | | | | PET CT Skull | [phone] | | | | | | Base To Mid | Fax: | | | | | | Thigh | [phone] | | +--------+--------+ + + + + [...] | | of left lung | [address] | [place], | | | | | (HCC) | [place], | [place] [address] | | | | | Procedures | [place] | Phone: | | | | | [address] | [address] | [phone] | | | | | | Phone: | Fax: | | | | | | [phone] | [phone] | | | | | | Fax: | | | | | | | [phone] | | +--------+--------+ + + + + Encounter Details +--------+ + + + + | Date | Type | Department | Care Team | Description | +--------+ + + + + | 06/17/ | Hospital | [facility] | Adolfo, | Actinic keratosis | | 2019 | Encounter | [facility] | Boubacar Daniels MD [address] | (Primary Dx); | | | | [facility] [address] | [facility] [place] | Malignant neoplasm | | | | [address] [place] | [address] [place], [place] | of hilus of lung, | | | | [place] [address] | [address] | unspecified | | | | [phone] | | laterality (HCC) | +--------+ + [...] + + + | Blood Pressure | 148/79 | 06/17/2019 10:40 AM | | | | | PDT | | + + + + + | Pulse | 73 | 06/17/2019 10:40 AM | | | | | PDT | | + + + + + | Temperature | 36.9 C (98.4 F) | 06/17/2019 10:40 AM | | | | | PDT | | + + + + + | Respiratory Rate | 18 | 06/17/2019 10:40 AM | | | | | PDT | | + + + + + | Oxygen Saturation | 95% | 06/17/2019 10:40 AM | | | | | PDT | | + + + + + | Inhaled Oxygen | - | - | | | Concentration | | | | + + + + + | Weight | 52.5 kg (115 lb 11.9 | 06/17/2019 10:40 AM | | | | oz) | PDT | | + + + + + | Height | - | - | | + + + + + | Body Mass Index | 19.28 | 01/30/2019 2:26 PM | | | [...] encounter Progress Notes Boubacar Mata MD - 06/17/2019 10:48 AM PDTFormatting of this note might be differe nt from the original. Hematology/Oncology Progress Note [place], [place] Pt. Name/Age/: Sussy Allred 69 y.o. 1950 Med. Record Number: [id number] Date of admission: 06/17/2019 The patient's primary care provider is Lauryn Stuart PA-C. Identifying Statement: Sussy Allred is a 69 y.o. female from [address] [place] [id number] with Stage IIIA poorly differentiated adenocarcinoma of [...] L, 4L and hilar lymph nodes (Stacy ORMOIZ). Patholog [facility] specimen # [id number] was notable for a poorly differentiated adenocarcinoma, [...] for diaphragmatic paralysis on June 11, 2019. Current Assessment & Plan Sussy Allred returned to clinic on 06/17/2019 two months after completing combined mo dality adjuvant chemoradiation therapy for Stage IIIA adenocarcinoma of the left lung. Interval history is notable for the fact that Katharina underwent sniff testing to evaluate dysp carly. 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 She has also enrolled in the "[facility] cancer rehabili tation program at the [employer] [facility]. Chief complaint is breathlessness when speaking. Review of systems is positive for fatigue, vomiting without nausea, anorexia, weight loss, dysphagia, dysphonia, constipation, nocturia, left chest wall pain, headaches, blurry vision , numbness in the fingers and toes. She rates her chest wall pain as 6/10 and is controlling the pain with hydrocodone. She is also on topical fentanyl at 50 mcg/hr. She also is using alprazolam 0.25 mg at night for insomnia. Clinical exam is notable for an area of solar keratosis over the forehead. She was very emo tional during today's encounter, with frequent crying spells. Laboratory exam was not performed today. Imaging is notable for a negative sniff test. Assessments; Stage IIIA adenocarcinoma of the Left lung status post left upper lobe lobecto my. 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 Situational depression. Skin cancer. Plan; Comprehensive disease assessment following a course of therapy with PET/CT scan. Sussy Allred will contact her [facility] providers for further management of her vocal cord p aralysis. She will continue with topical fentanyl and breakthrough Hydrocodone/APAP for her post-thor acotomy pain syndrome. Katharina and I agreed that she will continue to receive narcotics through this office and not seek narcotic prescriptions from other providers. She will be referred to Dr. Cande Kyle in Dermatology for skin cancer treatment. Lauryn Stuart PA-C is addressing situational depression with a prescription for Wellbutrin . Review of Systems: Constitutional: Pt reports severe fatigue - worsening since returning to work. Pt reports s pontaneous vomiting without nausea - 2-3 times per week. Pt has 2lb weight loss since last v isit. Pt reports nightly night sweats. Anxiety noted. Denies high fevers, shaking chills, an orexia, or nausea. Appetite without changes. Ear, Nose, Mouth, Throat: Pt reports continued intermittent dysphagia - improving. Pt repor ts continued fluctuating of voice - is looking for "another shot". Pt reports occasional xiomara th sores - minor. Denies odynophagia, dysphagia, or tinnitus. Cardiovascular: Pt reports occasional dyspnea on exertion - ongoing. Denies shortness of br eath, chest pain, palpitations or orthopnea. Respiratory: Denies cough, hemoptysis, or sputum production. Gastrointestinal: Pt reports well-managed constipation. Denies abdominal pain, diarrhea, me yong, or bright red blood per rectum. Genitourinary: Pt reports nocturia. Denies hematuria or dysuria. Musculoskeletal: Pt reports ongoing left breast pain. Neurologic: Pt reports ongoing headaches. Pt reports worsening vision - recently diagnosed with early macular degeneration. Pt reports continued numbness/tingling of the extremities. Endocrine: Pt reports continued swelling of the ankles. Denies heat/cold intolerance. Hematologic: Denies spontaneous bruising or bleeding. Integumentary: Pt reports new spots to face and hands - states she needs to find a dermatol ogist. Pt describes a previous "spot" in her R pelvic region that was seen by her primary ca re provider. The provider intended to perform a biopsy and the pt was then diagnosed with ca ncer. Pt states the spot started bleeding yesterday. "Bump" to L neck is still present and " growing". Denies rash or wounds. Pain: Pt reports pain of 6/10 currently while using breakthrough medications. ROS otherwise negative Note: Pt here for [...] two days after chemotherapy. 40 tablet 0 albmyrzhirBAFDG-fvhwstcmt-abcorlyx & magnesium hydroxide-simethicone (MAGIC MOUTHWASH) Take 5 [...] Last attempt to quit: 08/20/2011 Years since quittin.8 Smokeless tobacco: Never Used Substance and Sexual [...] was cancer Macular degen Mother Objectives: Temp: 36.9 C (98.4 F) BP: 148/79 Pulse: 73 Resp: 18 SpO2: 95 % on Min/Max Temp past 24 hours:No data recorded No intake or output data in the 24 hours ending 06/23/19 1032 Wt. Admission: Weight: 52.5 kg (115 lb 11.9 oz) Wt. Current: Weight: 52.5 kg (115 lb 11 .9 oz) Wt Readings from Last 3 Encounters: 06/17/19 52.5 kg (115 lb 11.9 oz) 05/20/19 53.1 kg (117 lb 1 oz) 05/05/19 54 kg (119 lb 0.8 oz) Physical Exam: General: The patient is [...] in Am. J. Clin. Oncol.: Niranjan Lopez., Romeo RGris., Renaldo Parish., Nico Avery, Turner TBritni., Suzanne Mocnada., Georgette, P .P.: Toxicity And Response Criteria [...] here or in the Assessment and Plan. FL SNIFF TEST 06/11/2019 8:49 AM HISTORY: Lung cancer, pneumonectomy, dyspnea. COMPARISON: Multiple priors. PROTOCOL: With the patient in the upright and supine positions, fluoroscopic evaluation of the hemidiaphragms was performed with inspiratory and expiratory motions. FINDINGS: There is mild tenting of the left hemidiaphragm. Normal motion is seen of the bilateral hemidiaphragms during inspiration, expiration, and sniffing maneuvers in the upright and supine positions. Impression Normal sniff test with no evidence for diaphragmatic paralysis. Dictated and Signed by: Ravi Kraft MD Electronically signed: 06/11/2019 9:19 AM Pharmacovigilance: Palliative Care: Patient's Medications New Prescriptions No medications on file Modified Medications No medications on file Discontinued Medications HYDROMORPHONE (DILAUDID) 2 MG TABLET Take 1 tablet by mouth every 3 hours as needed for Pain. Procedure: Boubacar Mata MD Portions of this chart may have been created with [employer] voice recognition software. Occasi onal wrong-word or sound-alike substitutions may have occurred due to the inherent tripathi itations of voice recognition software. Please read the chart carefully and recognize, using context, where these substitutions have occurred. documented in this encounter Miscellaneous Notes Assessment & Plan Note - Boubacar Mata MD - 06/23/2019 7:48 AM PSTAssociated Prob kati(s): Lung cancer (HCC)Sussy Allred returned to clinic on 06/17/2019 two months after completing combined modality adjuvant chemoradiation therapy for Stage IIIA adenocarcinoma o f the left lung. Interval history is notable for the fact that Katharina underwent sniff testing to evaluate dysp carly. 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 She has also enrolled in the "[facility]" [facility] cancer rehabili tation program at the [employer] [facility]. Chief complaint is breathlessness when speaking. Review of systems is positive for fatigue, vomiting without nausea, anorexia, weight loss, dysphagia, dysphonia, constipation, nocturia, left chest wall pain, headaches, blurry vision , numbness in the fingers and toes. She rates her chest wall pain as 6/10 and is controlling the pain with hydrocodone. She is also on topical fentanyl at 50 mcg/hr. She also is using alprazolam 0.25 mg at night for insomnia. Clinical exam is notable for an area of solar keratosis over the forehead. She was very emo tional during today's encounter, with frequent crying spells. Laboratory exam was not performed today. Imaging is notable for a negative sniff test. Assessments; Stage IIIA adenocarcinoma of the Left lung status post left upper lobe lobecto my. 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 Situational depression. Skin cancer. Plan; Comprehensive disease assessment following a course of therapy with PET/CT scan. Sussy Allred will contact her [facility] providers for further management of her vocal cord p aralysis. She will continue with topical fentanyl and breakthrough Hydrocodone/APAP for her post-thor acotomy pain syndrome. Katharina and I agreed that she will continue to receive narcotics through this office and not seek narcotic prescriptions from other providers. She will be referred to Dr. Cande Kyle in Dermatology for skin cancer treatment. Lauryn Stuart PA-C is addressing situational depression with a prescription for Wellbutrin . documented in this encounter Plan of Treatment [...] | | | | | [place] [address] | | | | | | [phone] | | | | | | | | +--------+ + + + + + + +--------+ + + | Name | Type | Priori | Associated Diagnoses | Order Schedule | | | | ty | | | + + +--------+ + + | Dermatology, | Outpatient | Routin | Actinic keratosis | Ordered: 06/17/2019 | | External - AMB | Referral | e | | | | Referral | | | | | + + +--------+ + [...] | | |Dictated and Signed by: Pasha Garrison MD | | Electronically signed: 07/10/2019 11:20 PM | + + + +---------+ + + | Performing | Address | City/State/Zipcode | Phone Number | | Organization | | | | + +---------+ + + | [facility] | | | | + +---------+ + + documented in this encounter Visit Diagnoses + + | Diagnosis | + + | Actinic keratosis - Primary | + + | Malignant neoplasm of hilus of lung, unspecified laterality (HCC) | + + documented in this encounter
--- OUTSIDE RECORDS SUMMARY | ~2020-03-30 | XMS | Encounter Summary ---
Demographics + + + | Address | [address] | | | [place] [address] | + + + | Home Phone [...] Team Providers + +------+ + | Care Agricultural Equipment Sales Engineer Name | Role | Phone | + +------+ + | Lauryn Stuart | PCP | | + +------+ + Encounter Details +--------+ + + + + | Date | Type | Department | Care Team | Description | +--------+ + + + + | 11/26/ | Hospital | Diagnostics at [facility] | Tech, Pfl Ped | | | 2019 | Encounter | [address] | [address] | | | | | Jacqueline | [facility] | | | | | [facility], | [place] [address] | | | | | [address] [place] [address] | | | | | | [place], [place] | | | | | | [address] | | | | | | [phone] | | | +--------+ + + + [...] | | | | | [address] [place], | | | | | | [place] [address] | | | | | | [phone] | | | | | | | | +--------+---------+ + + + | 04/30/ | Office | Otolaryngology | Augustine Nolan | | | 2019 | Visit | | MD Debbie [address] | | | | | | [address] | | | | | | [place], [place] | | | | | | [address] | | | | | | [phone] | | | | | | | [...] + | PULMONARY | Site: [facility] and | | [facility] | | | INTERPRETAT | [facility], [address] | | SPECIAL | | | ION | [address] [facility] [address], | | DIAGNOSTICS | | | | [place], [place], | | - | | | | [address]PT: [id number] | | PULMONARY | | | | Name: SUSSY ZHOU | | FUNCTION | | | | ANNVisit Date: | | | | | | 11/26/2018 Second ID: | | | | | | [id number]: | | | | | | Palm DanielleAge: 68 | | | | | | : 1950 Sex: | | | | | | Female Race: | | | | | | CaucasianHeight: 162.50 | | | | | | Cms Weight: 59.00 | | | | | | Kgs BSA: 1.63Order | | | | | | IDs: [id number] | | | | | | Test(s): [...] + + + + + + | PDQ73-61% | 1.79 | 2.00 L/sec | [facility] | | | PRE | | | SPECIAL | | | | | | DIAGNOSTICS | | | | | | - | | | | | | PULMONARY | | | | | | FUNCTION | | + + + + + + | FGO68-69% | 89 | % | [facility] | [...] [address] | [address] | [place], [place] | | | DIAGNOSTICS - | [address] [place] | [address] | | | PULMONARY FUNCTION | | | | + + + + + documented in this encounter Visit Diagnoses + + | Diagnosis | + + | Neoplasm Neoplasm of unspecified nature, site unspecified | + + documented in this encounter
--- OUTSIDE RECORDS SUMMARY | ~2020-03-30 | XMS | Encounter Summary ---
Demographics + + + | Address | [address] | | | [place] [address] | + + + | Home Phone [...] Team Providers + +------+ + | Care Natural Foods Clerk Name | Role | Phone | [...] | | | y | Malignant | Aguustine Lewis, | Augustine Lewis MD | | | | | neoplasm of | MD [address] | [address] | | | | | upper lobe | [address] | [address] | | | | | of left lung | [address] | Jeremy [place], | | | | | ([facility]) | [place], [place] | [place] | | | | | Paralysis of | [address] | [address] | | | | | left vocal | Phone: | Phone: | | | | | fold | [phone] | [phone] | | | | | Dysphonia | Fax: | Fax: | | | | | Pharyngeal | [phone] | [phone] | | | | | dysphagia | | | | | | | Procedures | | | | | | | REQUEST TO | | | | | | | SURGERY | | | | | | | AUTOMATED 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 | [place], [place] | | | | | Health and [facility], | [address] | | | | | [place] [address] | [phone] | | | | | [place], [place] | | | | | | [address] | | | | | | [phone] | | | +--------+ + + + [...] | | | | | Melania Luna [place], | | | | | | [place] [address] | | | | | | [phone] | | | | | | | | +--------+---------+ + + + | 04/30/ | Office | Otolaryngology | Augustine Nolan | | | 2019 | Visit | | MD Debbie [address] | | | | | | [address] | | | | | | [place], [place] | | | | | | [address] | | | | | | [phone] | | | | | | | [...]
--- OUTSIDE RECORDS SUMMARY | ~2020-03-30 | XMS | Encounter Summary ---
Demographics + + + | Address | [address] | | | [place] [address] | + + + | Home Phone [...] + + + | Author | [facility] | | | and Jakobana | + + + | Organization | [facility] [...] Team Providers + +------+ + | Care Supply Technician Name | Role | Phone | [...] neoplasm of | Boubacar Daniels, | [address] | | | | | unspecified | MD [address] | [place], | | | | | part of | [facility] [facility] | [place] [address] | | | | | unspecified | [address] | Phone: | | | | | bronchus or | [place], | [phone] | | | | | lung (HCC) | [place] [address] | Fax: | | | | | Procedures | Phone: | [phone] | | | | | VT VITAMIN | [phone] | | | | | | B12 | Fax: | | | | | | INJECTION, | [phone] | | | | | | [address] | | | | | | | ONDANSETRON | | | | | | | ORAL VT | | | | | | | ORAL | | | | | | | DEXAMETHASON | | | | | | | E, .25 MG | | | | | | | VT INJ., | | | | | | | APREPITANT, | | | | | | | 1 MG VT | | | | | | | PEMETREXED | | | | | | | INJECTION, | | | | | | | 10 MG VT | | | | | | | CARBOPLATIN | | | | | | | INJECTION, | | | | | | | 50 MG VT | | | | | | | ADRENALIN | | | | | | | EPINEPHRINE | | | | | | | INJECT, .1 | | | | | | | MG VT | | | | | | | DIPHENHYDRAM | | | | | | | INE HCL | | | | | | | INJECTIO, 50 | | | | | | | MG VT | | | | | | | METHYLPREDNI | | | | | | | SOLONE | | | | | | | INJECTION, | | | | | | | 125 MG VT | | | | | | | ALBUTEROL | | | | | | | COMP CON, 1 | | | | | | | MG VT | | | | | | | ALBUTEROL | | | | | | | NON-COMP | | | | | | | CON, 1 MG | | | | | | | VT | | | | | | | INJECTION, | | | | | | | FAMOTIDINE, | | | | | | | 20 MG VT | | | | | | | NORMAL | | | | | | | SALINE | | | | | | | SOLUTION | | | | | | | INFUS, 500 | | | | | | | ML VT | | | | | | | NORMAL | | | | | | | SALINE | | | | | | | SOLUTION | | | | | | | INFUS, 250 | | | | | | | ML VT | | | | | | | STERILE | | | | | | | WATER/SALINE | | | | | | | , 10 ML VT | | | | | | | CHEMOTHER, | | | | | | | IV PUSH,EA | | | | | | | ADD DRUG VT | | | | | | | CHEMOTHER, | | | | | | | IV INFUSION, | | | | | | | 1 HR VT | | | | | | | CHEMOTHER, | | | | | | | IV INFUSION, | | | | | | | EA HR VT | | | | | | | CHEMOTHER,NO | | | | | | | N-HORMONE | | | | | | | ANTI-NEOPL, | | | | | | | SUB-Q/IM VT | | | | | | | CHEMOTHER | | | | | | | HORMON | | | | | | | ANTINEOPL | | | | | | | SUB-Q/IM VT | | | | | | | | | | | | | | PALONOSETRON | | | | | | | HCL, 25 MCG | | | +--------+--------+ + + + + Encounter Details +--------+ + + + + | Date | Type | Department | Care Team | Description | +--------+ + + + + | 04/03/ | Hospital | [facility] | Adolfo, | 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 | | | | INFUSION [address] [place] | left lung (HCC) | | | | [address], | [address] [place], [place] | (Primary Dx) | | | | [place] [address] | [address] | | | | | [phone] | | | +--------+ + + + [...] + + + | Blood Pressure | 140/67 | 04/03/2019 11:14 AM | | | | | PDT | | + + + + + | Pulse | 75 | 04/03/2019 11:14 AM | | | | | PDT | | + + + + + | Temperature | 36.3 C (97.3 F) | 04/03/2019 11:14 AM | | | | | PDT | | + + + + + | Respiratory Rate | 16 | 04/03/2019 11:14 AM | | | | | PDT | | + + + + + | Oxygen Saturation | 97% | 04/03/2019 11:14 AM | | | | | PDT [...] encounter Progress Notes Jair Isbell RN - 04/03/2019 2:21 PM PDTPatient discharged in satisfactory condit ion. PIV access maintained for hydration tomorrow Discharged ambulatory. With family. To home. Verified that patient has antinausea medications at home. Future appointments and After Visit Summary (AVS) provided. Jair Tomlin RN - 04/03/2019 11:31 AM PD TEnergy level: low, ongoing esophageal and indigestion pain Fever or chills: denies Appetite: poor, PO intake limited by pain Nausea and/or vomiting: denies, not tolerating PO intake though Bowels: denies changes Numbness and tingling: denies changes Bleeding or bruising: denies Karnofsky: 80% Nurses notes: here for hydration and pain control documented in this encounter Plan of Treatment [...] | | | | | [place] [address] | | | | | | [phone] | | | | | | | [...] heparin 100 units/mL flush | Given | 04/03/20 | 500 | | | | injection 500 Units 500 Units (5 | | 19 2:20 | Units | | | | mL), Intracatheter, PRN, Line | | PM PDT | | | | | Care, Starting [facility] 04/03/19 at | | | | | | | 1114 | | | | | | + +--------+ +-------+------+------+ +---+---+ | | | +---+---+ + +-------+ +--------+---+---+ | HYDROmorphone (DILAUDID) | Given | 04/03/20 | 0.8 mg | | | | injection 0.4-0.8 mg 0.4-0.8 mg, | | 19 2:16 | | | | | Intravenous, EVERY 1 HOUR PRN, | | PM PDT | | | | | Pain, Starting [facility] 04/03/19 at | | | | | | | 1114 | | | | | | + +-------+ +--------+---+---+ +-------+ +--------+---+---+ | Given | 04/03/20 | 0.8 mg | | | | | 19 11:28 | | | | | | AM PDT | | | | +-------+ +--------+---+---+ +---+---+ | | | +---+---+ + +---------+ +---+-------+---+ | sodium chloride 0.9% (NS) | New Bag | 04/03/20 | | 500 | | | infusion at 500 mL/hr, | | 19 11:24 | | mL/hr | | | Intravenous, CONTINUOUS, Starting | | AM PDT | | | | | Jenniffer 04/03/19 at 1130, 1000 cc ns | | | | | | | iv over 2 hours., | | | | | | + +---------+ +---+-------+---+ +---+---+ | | | +---+---+ documented in this encounter"
--- OUTSIDE RECORDS SUMMARY | ~2020-03-30 | XMS | Encounter Summary ---
Demographics + + + | Address | [address] | | | [place] [address] | + + + | Home Phone [...] Team Providers + +------+ + | Care Concrete Float Maker Name | Role | Phone | + +------+ + | Lauryn Stuart | PCP | | + +------+ + Reason for Visit +--------+ + | Reason | Comments | +--------+ + | FMLA | Sussy ([facility]) | +--------+ + Encounter Details +--------+ + [...] | | | [facility] [address] | [facility] [place] | | | | | [address] [place] for | [address] | | | | | Health and Healing, | [phone] | | | | | [address] | | | | | | [facility] [place] | | | | | | [address] | | | | | | [phone] | | | +--------+ + + + [...] | | | | | Melania Luna [place], | | | | | | [place] [address] | | | | | | [phone] | | | | | | | | +--------+---------+ + + + | 04/30/ | Office | Otolaryngology | Augustine Nolan | | | 2020 | Visit | | MD Debbie [address] [facility] | | | | | | [address] | | | | | | [place] | | | | | | [address] | | | | | | [phone] | | | | | | | | +--------+---------+ + + + documented as of this encounter Visit Diagnoses Not on filedocumented in this encounter
--- OUTSIDE RECORDS SUMMARY | ~2020-03-30 | XMS | Encounter Summary ---
Demographics + + + | Address | [address] | | | [place] [address] | + + + | Home Phone [...] | Author | [facility] | | | and Jakobana | + + + | Organization | [facility] | | [...] Team Providers + +------+ + | Care Drill Doctor Name | Role | Phone | + +------+ + | Lauryn Stuart PA-C | PCP | | + +------+ + Encounter Details +--------+ + + + + | Date | Type | Department | Care Team | Description | +--------+ + + + + | 04/15/ | Documentati | [facility] | Liz Cox RN | | | 2019 | on | [facility] | | | | | | ON[facility]OGY CLINIC [address] | | | | | | [address] | | | | | | [place] [address] | | | | | | [phone] | | | +--------+ + + + [...] documented as of this encounter Progress Notes Liz Cox RN - 04/15/2019 3:16 PM Enriqueta has finished treatment for lung cancer and is eligible for a survivorship care plan per the Commission on cancer guidelines. I met in person with Barbara today and went over the survivorship packet including care plan, energy con servation techniques, diet/nutrition/exercise information, fear of recurrence and adult [facility] survivor emotional concerns brochures, intimacy during and after cancer treatment and a s urvivorship booklet. Barbara filled out the NCCN distress thermometer tool with a score or 9/1 0. Her concerns are work, financial, treatment decisions, fears, emotional concerns, diet a nd nutrition, pain, sleep and breathing challenges. As we walked through each of these area s she stated that she is working with her physicians on each. I strongly suggested our [facility] cancer support group and joining her local gym. She was very open to both and stated she would be looking into both. I suggested personal counseling but she is not inclined at this time. I have no other referrals to make. Barbara has a follow up appointment with Dr. Camelia muir on 07/08/19. document ed in this encounter Plan of [...] | | | | | [place] [id number] | | | | | | [phone] | | | | | | | | +--------+ + + + + documented as of this encounter Visit Diagnoses Not on filedocumented in this encounter"
--- OUTSIDE RECORDS SUMMARY | ~2020-03-30 | XMS | Encounter Summary ---
Demographics + + + | Address | [address] | | | [place] [address] | + + + | Home Phone [...] + | Author | [facility] | | | and Jakobana | + + + | Organization | [facility] | | | and [...] Team Providers + +------+ + | Care Kettle Chipper Name | Role | Phone | + [...] | | of left lung | [address] | [place], | | | | | (HCC) | [place], | [place] [address] | | | | | Procedures | [place] | Phone: | | | | | [address] | [address] | [phone] | | | | | | Phone: | Fax: | | | | | | [phone] | [phone] | | | | | | Fax: | | | | | | | [phone] | | +--------+--------+ + + + + Encounter Details +--------+ + + + + | Date | Type | Department | Care Team | Description | +--------+ + + + + | 04/10/ | Hospital | [facility] | Adolfo, | Malignant neoplasm | | 2019 | Encounter | [facility] | Boubacar Daniels MD [address] | of upper lobe of | | | | ONCOLOGY CLINIC [address] | [facility] | left lung (HCC) | | | | [address] | [address] [place] | | | | | [place] [address] | [address] | | | | | [phone] | | | +--------+ + + + [...] + + + | Blood Pressure | 155/82 | 04/10/2019 12:50 PM | | | | | PDT | | + + + + + | Pulse | 74 | 04/10/2019 12:50 PM | | | | | PDT | | + + + + + | Temperature | 36.3 C (97.4 F) | 04/10/2019 12:50 PM | | | | | PDT | | + + + + + | Respiratory Rate | 16 | 04/10/2019 12:50 PM | | | | | PDT | | + + + + + | Oxygen Saturation | - | - | | + + + + + | Inhaled Oxygen | - | - | | | Concentration | | | | + + + + + | Weight | 55.4 kg (122 lb 2.2 | 04/10/2019 12:50 PM | | | | oz) | PDT | | + + + + + | Height | - | - | | + + + + + | Body Mass Index | 20.35 | 01/30/2019 2:26 PM | | | [...] encounter Progress Notes Boubacar Mata MD - 04/10/2019 12:51 PM PDTFormatting of this note might be differe nt from the original. Hematology/Oncology Progress Note [facility] [place] Pt. Name/Age/: Sussy Allred 69 y.o. 1950 [facility]. Record Number: [id number] Date of admission: 04/10/2019 The patient's primary care provider is Lauryn Stuart PA-C. Identifying Statement: Sussy Allred is a 69 y.o. female from [address] [place] [address] with Stage IIIA poorly differentiated adenocarcinoma of [...] L, 4L and hilar lymph nodes (Stacy MDMOIZ). Patholog ical specimen # [id number] was notable for a poorly differentiated adenocarcinoma, [...] April 04, 2019. 14. Cycle #4 pemetrexed/carboplatin Current Assessment & Plan Sussy Allred returned to clinic on 04/10/2019 alone for follow up of her Stage IIIA ad enocarcinoma of the left lung. Interval history is notable for the fact that Lenka completed adjuvant radiation therapy sunday. Interval history is notable for the fact that Lenka in now on topical fentanyl, and is recei ving daily iv fluids and intravenous hydromorphone in the cancer center for symptomatic esop hagitis. Review of systems is notable for the fact that Lenka can now swallow water again. Clinical exam is notable for clear lung logan bilaterally. Laboratory exam is notable for grade 2 anemia. Assessment: Stage IIIA adenocarcinoma of the left lung. Plan; proceed with her last cycle of carboplatin/pemetrexed chemotherapy today. Continue daily supportive care with iv fluids, iv hydromorphone and topical fentanyl for sy mptomatic esophagitis. Clinical and laboratory follow up in 10 days. Over forty minutes spent in active listening and counseling and filing out [facility] paperwork. Review of Systems: Constitutional: States fatigue. Denies high fevers, shaking chills, anorexia, weight los s, or night sweats. Appetite without changes. Intermittent nausea/vomiting reported, none s meli day before yesterday. Ear, Nose, Mouth, Throat: States slight improvement w/ odynophagia and dysphagia. Denies t innitus. Cardiovascular: States shortness of breath, dyspnea on exertion. Denies chest pain, palpit ations or orthopnea. Respiratory: Denies hemoptysis, or sputum production. Unchanged dry cough. Gastrointestinal: Denies abdominal pain, diarrhea, melena, or bright red blood per rectum. States managed constipation. Genitourinary: Denies hematuria or dysuria. Musculoskeletal: Denies joint pain or tenderness. Neurologic: Vision remains fuzzy. Unchanged numbness/tingling of the hands. Daily headache s reported, unchanged. Endocrine: Denies peripheral edema or heat/cold intolerance. Hematologic: Denies spontaneous bruising or bleeding. Integumentary: Denies rash, wounds or other skin concerns. Pain: Pt currently rating pain in back and chest 02/26. Note: Here for tx, labs, and f/u. My chart: Declined Scheduled Medications: Current Outpatient [...] two days after chemotherapy. 40 tablet 0 vgpvvshfwgTMQMW-oonronrxo-udqqddyc & magnesium hydroxide-simethicone (MAGIC MOUTHWASH) Take 5 [...] times daily 90 capsule 0 HYDROcodone-acetaminophen (NORCO) 10-325 mg [...] PRN Boubacar richardson MD 500 Units at 04/10/19 1537 HYDROmorphone (DILAUDID) injection 0.8 mg 0.8 mg Intravenous Q1H PRN Boubacar londono MD 0.8 mg at 04/10/19 1353 Allergies: Allergy: Allergies Allergen Reactions Ketorolac Anaphylaxis [...] was cancer Macular degen Mother Objectives: Temp: 36.3 C (97.4 F) BP: 155/82 Pulse: 74 Resp: 16 on Min/Max Temp past 24 hours:Temp Av.3 C (97.4 F) Min: 36.3 C (97.4 F) Max: 3 6.3 C (97.4 F) No intake or output data in the 24 hours ending 04/10/19 2240 Wt. Admission: Weight: 55.4 kg (122 lb 2.2 oz) Wt. Current: Weight: 55.4 kg (122 lb 2.2 oz) Wt Readings from Last 3 Encounters: 04/10/19 55.4 kg (122 lb 2.2 oz) 04/03/19 55.3 kg (121 lb 14.6 oz) 03/31/19 53.7 kg (118 lb 6.2 oz) Physical [...] Lopez., Beronica Walters., Renaldo Parish., Nico Avery, Turner, TBritni., Suzanne Moncada., Georgette, P .P.: Toxicity [...] SUSSY ALLRED "LENKA" ( ) as of 04/10/2019 22:19 Ref. Range 04/10/2019 12:19 WBC Latest Ref Range: 4.0 - 11.0 K/uL 4.5 RBC COUNT Latest Ref Range: 3.70 - 5.20 M/uL 2.77 (L) Hemoglobin Latest Ref Range: 11.5 - 16.0 g/dL 8.8 (L) Hematocrit Latest Ref Range: 34.0 - 47.0 % 26.5 (L) MCV Latest Ref Range: 83.0 - 101.0 fL 95.7 MCH Latest Ref Range: 28.0 - 35.0 pg 31.8 MCHC Latest Ref Range: 32.0 - 36.0 g/dL 33.2 RDW-CV Latest Ref Range: <15.0 % 21.3 (H) RDW-SD Latest Ref Range: 35.1 - 46.3 fL 72.5 (H) Platelet Count Latest Ref Range: 140 - 440 K/uL 227 MPV Latest Ref Range: 6.5 - 12.4 fL 8.9 % nRBC Latest Ref Range: 0 - 2 per 100 WBCs 0 Absolute nRBC Latest Ref Range: 0.00 - 0.01 K/uL 0.00 Absolute Neutrophils Latest Ref Range: 1.80 - 8.50 K/uL 3.89 Absolute Lymphocytes Latest Ref Range: 0.60 - 3.20 K/uL 0.27 (L) Absolute Monocytes Latest Ref Range: 0.00 - 1.00 K/uL 0.30 Absolute Eosinophils Latest Ref Range: 0.00 - 0.40 K/uL 0.00 Absolute Basophils Latest Ref Range: 0.00 - 0.10 K/uL 0.01 Absolute Immature Granulocytes Latest Ref Range: 0.00 - 0.03 K/uL 0.03 % Neutrophils Latest Ref Range: 45.0 - 82.0 % 86.4 (H) % Lymphocytes Latest Ref Range: 20.0 - 45.0 % 6.0 (L) % Monocytes Latest Ref Range: 4.0 - 12.0 % 6.7 % Eosinophils Latest Ref Range: 0.0 - 5.0 % 0.0 % Basophils Latest Ref Range: 0.0 - 1.0 % 0.2 % Immature Granulocytes Latest Ref Range: 0.0 - 0.4 % 0.7 (H) Na Latest Ref Range: 136 - 145 mmol/L 133 (L) K Latest Ref Range: 3.4 - 5.1 mmol/L 3.9 Chloride Latest Ref Range: 98 - 107 mmol/L 103 Carbon dioxide Latest Ref Range: 20 - 31 mmol/L 21 Anion Gap Latest Ref Range: 3 - 16 mmol/L 9 Glucose Latest Ref Range: 60 - 106 mg/dL 96 BUN Latest Ref Range: 9 - 23 mg/dL 7 (L) Creatinine Latest Ref Range: 0.55 - 1.02 mg/dL 0.71 BUN/Creatinine Ratio Unknown 9.9 Albumin Latest Ref Range: 3.2 - 4.8 g/dL 4.3 Albumin/Globulin Ratio Latest Ref Range: 0.8 - 1.9 1.6 Total Protein Latest Ref Range: 5.7 - 8.2 g/dL 7.0 EGFR IF NOT Latest Ref Range: >=60 mL/min/1.73m2 >60 Calcium Latest Ref Range: 8.7 - 10.4 mg/dL 9.9 ALK PHOS Latest Ref Range: 46 - 116 U/L 87 ALT (SGPT) (REF) Latest Ref Range: 10 - 49 U/L 16 AST (SGOT) (REF) Latest Ref Range: 0 - 34 U/L 35 (H) Bilirubin Total (Calculated) Latest Ref Range: 0.3 - 1.2 mg/dL 0.3 Globulin Latest Ref Range: 2.1 - 3.8 g/dL 2.7 Pharmacovigilance: Palliative Care: Patient's Medications New Prescriptions HYDROCODONE-ACETAMINOPHEN (NORCO) 10-325 MG PER TABLET Take 1-2 tablets by mouth every 6 hours as needed for Pain for up to 30 days. Modified Medications Modified Medication Previous Medication ZCMBFOHPMSOIAHI-[id number]-[id number] & MAGNESIUM HYDROXIDE-SIMETHICONE (MAGIC MOUTHWASH) dip piifeypSQEYW-bhgngbzpt-ripepzni & magnesium hydroxide-simethicone (MAGIC MOUTHWASH) Take 5 mLs by mouth every 4 hours as needed for Pain. (RECIPE = 1:1:1 mixture of Maalox , diphenhydrAMINE, viscous lidocaine) Take 5 mLs by mouth every 4 hours as needed for Triston n. (RECIPE = 1:1:1 mixture of Maalox, diphenhydrAMINE, viscous lidocaine) Discontinued Medications HYDROCODONE-ACETAMINOPHEN (NORCO) 7.5-325 MG PER TABLET Take 1-2 tablets by mouth every 6 hours as needed. Procedure: Day 1, Cycle 4 (21-day cycle) Completed; Released on 04/10/2019; Originally planned for 04/10/2019 Labs Comprehensive Metabolic Panel (Discontinued) STAT, ONE TIME, Sun04/09/19 at 1217, For 1 occurrence OrderHistory CBC with Differential (Discontinued) STAT, ONE TIME, Sun04/09/19 at 1217, For 1 occurrence OrderHistory Comprehensive Metabolic Panel STAT, ONE TIME, [facility] 04/10/19 at 1220, For 1 occurrence OrderHistory CBC with Differential STAT, ONE TIME, Jenniffer 04/10/19 at 1220, For 1 occurrence OrderHistory Nursing Orders Treatment Decision (Not Released) Verify lab results prior to initiation of chemotherapy. Contact provider if conditions elijah luated in ordered labs are not met. Ok to treat if: ANC greater than or equal to 1,500/uL Platelets greater than or equal to 100,000/uL Hgb greater than or equal to 8 g/dL Serum creatinine less than 1.5 mg/dL T bili less than or equal to 1.5 times the ULN (upper limit of normal) AST and ALT less than 3 times ULN OrderHistory OK to proceed with chemotherapy (Not Released) 04/10/19-- INFORMED CONSENT: The nature and character of the proposed treatment with cycle #4 (last) c arboplatin/pemetrexed with B12 and dilaudid and the anticipated results of the proposed dominick tment with cycle #4 (last) carboplatin/pemetrexed with B12 and dilaudid;recognized alternati ve forms of treatment, including non-treatment; the risks benefits, and side effects of prop osed treatment, alternative treatments and non-treatment were discussed with the patient who consents to proceed with treatment with cycle #4 (last) carboplatin/pemetrexed with B12 and dilaudid. The treating provider has examined the patient and reviewed the diagnostic data, including laboratory data, and deems that it is safe and appropriate to proceed with treatme nt with cycle #4 (last) carboplatin/pemetrexed with B12 and dilaudid.Electronically signed b y: Boubacar Mata MD 04/10/2019 13:30. OrderHistory Plans for discharge (Not Released) DOES SHE NEED TO CONTINUE WITH DAILY HYDRATION AND DILAUDID? Yes DOES SHE NEED IT TODAY? Just dilaudid today. QFU LABS/ARM IN 10 DAYS FOR KIAH CHECK What is follow up plan after this 4th Cycle? Ord erHistory Nursing communication (Not Released) Routine, ONE TIME Starting when released Verify pt started folic acid at least 400 mcg PO daily 1 week prior to 1st dose of PEMEtrex ed & continuing until 21 days after PEMEtrexed. Verify pt is on vitamin B12 1000 mcg IM sim ry 9 weeks starting 1-2 weeks before the 1st dose of PEMEtrexed. OrderHistory Supportive Care HYDROmorphone (DILAUDID) injection 0.8 mg 0.8 mg, Intravenous, EVERY 1 HOUR PRN, Pain, Starting Jenniffer 04/10/19 at 1332 OrderHistory Supportive Med Selection Communication (Not Released) This treatment plan contains a supportive medication group. From Actions button on the rig ht, click 'Add Orders' to access group and select desired medications. OrderHistory cyanocobalamin (VITAMIN B-12) injection 1,000 mcg 1,000 mcg, Intramuscular, ONCE, Jenniffer 04/10/19 at 1345, For 1 dose Administer every 9 weeks starting 1-2 weeks before the 1st dose of PEMEtrexed. OrderHisto ry Pre-Medications palonosetron (ALOXI) injection 0.25 mg 0.25 mg, Intravenous, ONCE, Jenniffer 04/10/19 at 1345, For 1 dose Give IV push over 30 seconds. Flush with saline before and after giving. Administer 30 minutes prior to chemotherapy. (This product is restricted to outpatient use only. For inpatients please use (ondansetron) . If there are clinical circumstances that necessitate inpatient use of (palonosetron), ple ase contact pharmacy.) OrderHistory dexamethasone (DECADRON) tablet 4 mg 4 mg, Oral, ONCE, Jenniffer 04/10/19 at 1345, For 1 dose Administer 30 minutes prior to chemotherapy. OrderHistory aprepitant (CINVANTI) injection 130 mg 130 mg, IV Push, ONCE, Jenniffer 04/10/19 at 1345, For 1 dose Administer 30 minutes prior to chemotherapy. Administer slowly over 2 minutes OrderHistory PRN Medications LORazepam (ATIVAN) injection 0.5-1 mg (Not Released) 0.5-1 mg (original dose 0.5-1 mg), Intravenous, EVERY 6 HOURS PRN, Anxiety, nausea, Starti ng when released, Until Discontinued OrderHistory CHEMOTHERAPY PEMEtrexed (ALIMTA) 800 mg in sodium chloride 0.9% 100 mL infusion 800 mg (rounded from 785 mg = 500 mg/m2 1.57 m2 Treatment plan recorded BSA), Intraveno us, Administer over 10 Minutes, ONCE, Jenniffer 04/10/19 at 1400, For 1 dose Chemotherapy: Use appropriate handling precautions. OrderHistory CARBOplatin (PARAPLATIN) 447.5 mg in sodium chloride 0.9% 500 mL infusion 447.5 mg (Target AUC = 5), Intravenous, Administer over 60 Minutes, ONCE, Jenniffer 04/10/19 at 1 415, For 1 dose Chemotherapy: Use appropriate handling precautions. OrderHistory Boubacar Mata MD Portions of this chart may have been created with [employer] voice recognition software. Occasi onal wrong-word or sound-alike substitutions may have occurred due to the inherent tripathi itations of voice recognition software. Please read the chart carefully and recognize, using context, where these substitutions have occurred.- documented in this encounter Miscellaneous Notes Assessment & Plan Note - Boubacar Mata MD - 04/10/2019 10:23 PM PDTAssociated Prob kati(s): Lung cancer (HCC)Sussy Allred returned to clinic on 04/10/2019 alone for follow u p of her Stage IIIA adenocarcinoma of the left lung. Interval history is notable for the fact that Lenka completed adjuvant radiation therapy sunday. Interval history is notable for the fact that Lenka in now on topical fentanyl, and is recei ving daily iv fluids and intravenous hydromorphone in the cancer center for symptomatic esop hagitis. Review of systems is notable for the fact that Lenka can now swallow water again. Clinical exam is notable for clear lung logan bilaterally. Laboratory exam is notable for grade 2 anemia. Assessment: Stage IIIA adenocarcinoma of the left lung. Plan; proceed with her last cycle of carboplatin/pemetrexed chemotherapy today. Continue daily supportive care with iv fluids, iv hydromorphone and topical fentanyl for sy mptomatic esophagitis. Clinical and laboratory follow up in 10 days. Over forty minutes spent in active listening and counseling and filing out [facility] paperwork.E lectronically signed by Boubacar Mata MD at 04/10/2019 10:39 PM PDTdocumented in thi s encounter Plan of Treatment +--------+ + + + + | Date | Type | Specialty | Care Team | Description | +--------+ + + + + | 04/20/ | Appointment | Radiation Oncology | Jordan Treva | | | 2019 | | | DEISY Hernandez [address] | | | | | | [address] | | | | | | [place] [address] | | | | | | [phone] | | | | | | | | +--------+ + + + + documented as of this encounter Visit Diagnoses + + | Diagnosis | + + | Malignant neoplasm of upper lobe of left lung (HCC) | + + documented in this encounter
--- OUTSIDE RECORDS SUMMARY | ~2020-03-30 | XMS | Encounter Summary ---
Demographics + + + | Address | [address] | | | [place] [address] | + + + | Home Phone | | + + + | Preferred Language | Unknown | + + + | Marital Status | Single | + + + | Mormonism Affiliation | Unknown | + + + | Race | Unknown | + + + | Ethnic Group | Unknown | + + + Author + + + | Author | [facility] | | | and Jakobana | + + + | Organization | [facility] | | | and [...] Team Providers + +------+ + | Care Travel Accommodations Rater Name | Role | Phone | + +------+ + | Lauryn Stuart PA-C | PCP | | + +------+ + Reason for Visit Evaluate & Treat (Routine) + +--------+ + [...] | related pain | [address] | [place], | | | | | (acute) | [place], | [place] [address] | | | | | (chronic) | [place] | Phone: | | | | | [phone] | [address] | [phone] | | | | | (ICD-10-CM) | Phone: | Fax: | | | | | - Malignant | [phone] | [phone] | | | | | neoplasm of | Fax: | | | | | | upper lobe, | [phone] | | | | | | left | | | | | | | bronchus or | | | | | | | lung (HCC) | | | | | | | Procedures | | | | | | | [id number] | | | + +--------+ + + + + Encounter Details +--------+ + + + + | Date | Type | Department | Care Team | Description | +--------+ + + + + | 11/30/ | Hospital | [facility] | Treva Ortega | Malignant neoplasm | | 2020 | Encounter | [facility] | David, FIRE EQUIPMENT OPERATOR [address] | of upper lobe of | | | | [facility]COLOGY CLINIC [address] | [address] | left lung (HCC) | | | | [address] | [place] [address] | (Primary Dx) | | | | [place] [address] | [phone] | | | | | [phone] | | | +--------+ + + + [...] patch onto | 10 | 0 | 11/06/19 | | | (DURAGESIC) 50 | the [...] | | Take one to two | 120 | 0 | 11/06/19 | | | HYDROcodone-acetamin | tablets orally [...] documented as of this encounter Progress Notes Treva Ortega ARNP - 12/01/2019 2:30 PM PDTFormatting of this note might be diffe rent from the original. Radiation Oncology Telephone Visit Patient ID: Sussy Allred is a 69 y.o. female. The encounter diagnosis was Malignant neoplasm of upper lobe of left lung (HCC). H/O Stage IIIA CODY adenocarcinoma, s/p CODY lobectomy 12/04/2018, chemotherapy with carbo/pem x 4 cycle s, ending 04/10/2019 and radiation therapy from 02/27/19 to 04/04/2019. Subjective Patient underwent a left medialization thryoplasty implant at [facility] on 10/09/2019 due to voca l cord paralysis. She states that she has not noticed an improvement to her voice and, in fa ct, it seems "scratchier" to her. She states that she has had issues with swallowing foods since this surgery. She was unable to do speech therapy due to the COVID-19 pandemic. She s tates that taking small bites and eating with water is helpful. She has ongoing thoracotomy pain post-surgery that "never really went away." She states erika t the pain does not limit her ability to move around and to work. She is not exercising muc h at this time, especially now that her branch is closed so she is not working. She states t hat she has SOBOE only. She has a "stair stepper" at home and can do it for 1 minute before she is short of breath. This is unchanged since her cancer diagnosis. She has a long standing history of sudden onset nausea and vomiting that comes on fast and resolves quickly. This started around the time of chemotherapy and occurs approximately once a week. She has been unable to identify a trigger. Participants: Patient Medications and Allergies Current Outpatient Medications Medication Sig Dispense Refill [...] for pain, maximum 6 tablets a day. 120 tablet 0 lansoprazole (PREVACID) [address] [...] Daily. No current facility-administered medications for this visit. Allergies Allergen Reactions Ketorolac Anaphylaxis Adhesive & Tape Dermatitis Latex Rash Intolerance No active intolerances/contraindications ROS REVIEW OF SYSTEMS Constitutional: Reports low energy since treatment. Reports nausea with vomiting about 1 t gabi weekly. This comes on quickly. . Denies high fevers, shaking chills, anorexia, weight loss, or night sweats. Appetite without changes. Ear, Nose, Mouth, Throat: Reports difficulty swallowing since surgery. Denies odynophagia, dysphagia, or tinnitus. Cardiovascular: Reports shortness of breath, dyspnea on exertion. Denies chest pain, palp itations or orthopnea. Respiratory: Reports dry cough since surgery. Denies hemoptysis, or sputum production. Gastrointestinal: Reports taking route stool softer to avoid constipation. Denies abdomina l pain, constipation, diarrhea, melena, or bright red blood per rectum. Genitourinary: Denies hematuria or dysuria. Musculoskeletal: Denies joint pain or tenderness. Neurologic: Reports migraines worse over last month. Denies visual changes or numbness/tin gling of the extremities. Endocrine: Denies peripheral edema or heat/cold intolerance. Hematologic: Reports easy bruising recently. Denies spontaneous bruising or bleeding. Integumentary: Denies rash, wounds or other skin concerns. Pain: Reports pain at left side of chest at a level 7 since treatment. Note: Follow up for lung cancer, finished chemoradiation on 04/04/2019. Patient had surgery for left vocal cord paralysis on 10/09/19. My chart: Declined. Assessment & Plan 1. Stage IIIA CODY adenocarcinoma. S/P lobectomy and chemoradiation. End of treatment 019. She underwent a CT of the chest 07/03/2019 and PET/CT 07/10/2019. These showed no evid ence of recurrence. Another CT of the chest is ordered for December but yet to be scheduled. The patient states that she is aware that this needs to be scheduled. Between our office and mi dical oncology the patient will be seen Q3-6 months for Years 1-3, then Q6 months x [address] of the chest +/- contrast will follow the same schedule, with annuall y exams becoming low-dose non-contrast chest CTs after 5 years. This plan was reviewed with the patient who states understanding. 2. Difficulty swallowing food. This is unrelated to her cancer diagnosis. This is likely se condary to left medialization thyroplasty implant 10/09/2019. The patient was advised to call [facility] for further guidance and to attend speech therapy, if referred, once the pandemic calm s down. She states understanding. Follow up Instructions: 1. CT chest with contrast (already ordered) needs to be scheduled in December. Patient aware. 2. Patient will follow-up with Dr. Mata 12/15/2019. 3. RTO to see Dr. Anne in 4 months. This is to ensure continuity of care, perform PE and at that time we can schedule her CT scans to coincide with her visits. 4. She has become much more sedentary since the pandemic. She was encouraged to engage in v chintan slow and gentle exercise, even if only for a minute, each day. I emphasized that she isidro uld not get severely out of breath, just enough that she can still speak in full sentences, they are just shorter. This can include her stair stepper, if tolerated, but can also includ e walking from room to room in her home. She states understanding. This consultation was provided via telemedicine using two-way, real-time interactive teleco mmunication technology between the patient and the physician. The interactive telecommunica tion technology included audio without video. The patient was offered telemedicine as an op tion for care delivery to decrease risk of exposure to COVID-19 during the current pandemic crisis. She verbally consented to this option. Patient has not been seen in office within the past 7 days, and outcome of this call is not to recommend soonest available office visit. Clinical discussion length: 11-20 min ([id number]) DEISY Rogers Radiation Oncology documented i n this encounter Plan of Treatment +--------+ + + + + | Date | Type | Specialty | Care Team | Description | +--------+ + + + + | 04/20/ | Appointment | Radiation Oncology | Treva Ortega | | | 2019 | | | DEISY Hernandez [address] | | | | | | [address] | | | | | | [place] [address] | | | | | | [phone] | | | | | | | | +--------+ + + + + documented as of this encounter Visit Diagnoses + + | Diagnosis | + + | Malignant neoplasm of upper lobe of left lung (HCC) - Primary | + + documented in this encounter
--- OUTSIDE RECORDS SUMMARY | ~2020-03-30 | XMS | Encounter Summary ---
Demographics + + + | Address | [address] | | | [place] [address] | + + + | Home Phone | | + + + | Preferred Language | Unknown | + + + | Marital Status | Single | + + + | Jain Affiliation | Unknown | + + + | Race | Unknown | + + + | Ethnic Group | Unknown | + + + Author + + + | Author | [facility] | | | and Jakobana | + + + | Organization | [facility] | [...] Team Providers + +------+ + | Care Process Camera Operator Name | Role | Phone | [...] | | of left lung | [address] | [place], | | | | | (HCC) | [place], | [place] [address] | | | | | Procedures | [place] | Phone: | | | | | [address] | [address] | [phone] | | | | | | Phone: | Fax: | | | | | | [phone] | [phone] | | | | | | Fax: | | | | | | | [phone] | | +--------+--------+ + + + + Encounter Details +--------+ + + + + | Date | Type | Department | Care Team | Description | +--------+ + + + + | 02/05/ | Hospital | [facility] | Renee Martinez | Malignant neoplasm | | 2019 | Encounter | [facility] | J, PharmD [address] | of upper lobe of | | | | ONCOLOGY CLINIC [address] | [address] [place] | left lung (HCC) | | | | [address] | [place] [address] | (Primary Dx) | | | | [place] [address] | [phone] | | | | | [phone] | | | +--------+ + + + [...] + + + | Blood Pressure | 122/70 | 02/05/2019 10:45 AM | | | | | PDT | | + + + + + | Pulse | 72 | 02/05/2019 10:45 AM | | | | | PDT | | + + + + + | Temperature | 37.1 C (98.8 F) | 02/05/2019 10:45 AM | | | | | PDT | | + + + + + | Respiratory Rate | 16 | 02/05/2019 10:45 AM | | | | | PDT | | + + + + + | Oxygen Saturation | 100% | 02/05/2019 10:45 AM | | | | | PDT | | + + + + + | Inhaled Oxygen | - | - | | | Concentration | | | | + + + + + | Weight | 54.8 kg (120 lb 13 | 02/05/2019 10:45 AM | | | | oz) | PDT | | + + + + + | Height | - | - | | + + + + + | Body Mass Index | 20.13 | 01/30/2019 2:26 PM | | | [...] as of this encounter Progress Notes Renee Martinez PharmD - 02/05/2019 11:27 AM PDTFormatting of this note might be differ ent from the original. Clinical Oncology Pharmacy Services Progress Note [facility] Pt. Name/Age/: Sussy Allred 68 y.o. 1950 CSN: [id number] Date of service: 02/05/2019 Provider: Renee Martinez PharmD Identifying Statement: Sussy Allred is a 68 y.o. female from [address] [place] [address] [address] [place] [address] [place] [address], The encounter diagnosis was Malignant neoplasm of upper lobe of left hallie ng (HCC). The patient chart and medications were reviewed in detail and the patient was seen and exam ined. Patient was referred to Clinical Oncology Pharmacist for therapy initiation. Assessment and plan: Counseling session today covering anticipated side effects from carboplatin/pemetrexed chem otherapy. Effects covered include: Neutropenia, anemia, mucositis, nausea/vomiting, fatigue , alopecia, and sun sensitivity. Patient has consulted with Dr. Mata and Dr. Anne , planning on 4 cycles of adjuvant chemotherapy with radiation to start with cycle #2. Rose jefferson has been in contact with our social worker health services and is planning on utilizing her housing when she starts her radiation treatment. All questions were answered to her satisfaction and she consents to treatment both in writi ng and verbally. 1. Proceed with day #1 cycle #1 carboplatin/pemetrexed per the oncology treatment plan lie red by Dr. Mata. 2. Vaibhav check in 1 to 2 weeks. Subjective: The patient chart and medications were reviewed in detail and the patient was seen and exam ined. Sussy Allred is a 68 y.o. female with non-small cell lung cancer, here to begin adjuvan t treatment. Patient underwent surgical resection of her lung cancer in mid November, final pathologic stag e IIIa. Physicians at [facility] recommended adjuvant chemotherapy and radiation therapy given se quentially. Patient is however needing to get back to work and is wanting to shorten her tr eatment course, thus the decision was made to give radiation concurrently however will not s tart until cycle #2. She is slowly recovering from her surgery, still has dyspnea on exerti on and some orthopnea. Energy has been low, possibly due to ongoing anemia. Does have an o ngoing leukocytosis, however is been afebrile. Treatment Plan Information Sussy Allred PEMETREXED + CARBOPLATIN Q 21D X 4 CYCLES FOR NSCLC Current Cycle Treatment Dates Line of Treatment Treatment Goal Treatment Plan Provider [facility] Department Status 1 of 4 cycles 02/05/2019 to 04/09/2019 (None) (None) Boubacar Mata MD [facility] Active Protocol PEMETREXED + CARBOPLATIN Q 21D FOR NSCLC - As of 01/30/2019 15:37 Reference Links 1. Darline LOMBARDI et al. Pemetrexed + carboplatin versus gemcitabine + carboplatin [facility]B/IV non-small cell lung cancer. 2007 ASCO annual meeting. Abstract 7517 Treatment Plan Management Created By Created On Updated By Updated On Go to Treatment Technical Artist Boubacar Mata MD 01/30/2019 15:37 Taye Riggs 02/05/2019 11:28 PMH: Past Medical History: Diagnosis Date Disc [...] Macular degen Mother Review of Systems: Constitutional: Energy is low. Appetite is fair. Nausea occurs several times a day, occasio nal emesis. Denies high fevers, shaking chills, weight loss, or night sweats. Appetite with out changes. Ear, Nose, Mouth, Throat: Denies odynophagia, dysphagia, or tinnitus. Cardiovascular: Orthopnea, dyspnea on exertion and sometimes at rest reported. Chest pain r elated to surgery reported. Denies palpitations. Respiratory: Dry cough present for a couple of weeks. Denies hemoptysis, or sputum producti on. Gastrointestinal: Denies abdominal pain, constipation, diarrhea, melena, or bright red bloo d per rectum. Genitourinary: Denies hematuria or dysuria. Musculoskeletal: Denies joint pain or tenderness. Neurologic: Reports voided spots in left eye and intermittent headaches. Denies numbness/ti ngling of the extremities. Endocrine: Denies peripheral edema or heat/cold intolerance. Hematologic: Denies spontaneous bruising or bleeding. Integumentary: Denies rash, wounds or other skin concerns. Pain: Surgical chest pain is as high as 6/10 and as low as 4/10, <4/10. Review of systems as above, otherwise negative [...] otherapy and for two days after chemotherapy. doxycycline (VIBRAMYCIN) 100 mg capsule Take 100 mg by mouth 2 times daily. For skin in fection estradiol (ESTRACE) 2 MG tablet Take 2 mg by mouth Daily. folic acid 1 mg tablet Take 1 tablet by mouth Daily for 100 days. lansoprazole (PREVACID) [address] capsule Take [...] two days after chemotherapy to block nausea oxyCODONE (ROXICODONE) 5 mg tablet Take 5 mg by mouth every 4 hours as needed. triamterene-hydrochlorothiazide (MAXZIDE-25) 37.5-25 mg per tablet Take 0.5 tablets by mouth Daily. No current facility-administered medications for this encounter. Allergies: Allergies Allergen Reactions Ketorolac Anaphylaxis Adhesive & Tape Dermatitis Latex Rash Vitals: Temp: 37.1 C (98.8 F) BP: 122/70 Pulse: 72 Resp: 16 SpO2: 100 % on Temp :Temp Av.1 C (98.8 F) Min: 37.1 C (98.8 F) Max: 37.1 C (98.8 F) No intake or output data in the 24 hours ending 02/05/19 1127 Wt. Current: Weight: 54.8 kg (120 lb 13 oz) Diagnostic studies: Available data and images were reviewed personally. See reports. Significant results and findings are addressed here or in the Assessment and Plan. Recent Labs Lab 02/05/19 1021 WBC 13.9* HGB 10.6* HCT 32.1* PLT 369 Recent Labs Lab 02/05/19 1021 NA 136 K 3.5 CL 104 CO2 24 BUN 23 CREA 0.75 GLU 114* CALCIUM 9.5 BILITOT 0.4 AST 19 ALT 15 ALKPHOS 84 ALBUMIN 4.2 Imaging: No results found. Electronically signed by: Renee Martinez PharmD 02/05/2019 11:27 Total time in face to face discussion with the patient and family was 40 minutes; more than 50% of the time was spent counseling about cytotoxic chemotherapy and side effect managemen t. Referring Provider: Dr. Mata Supervising Provider: Dr. Brennan retheweDenise courtney RN - 02/05/2019 10:51 AM PDTREVIEW OF SYSTEMS Constitutional: Energy is low. Appetite is fair. Nausea occurs several times a day, occasio nal emesis. Denies high fevers, shaking chills, weight loss, or night sweats. Appetite with out changes. Ear, Nose, Mouth, Throat: Denies odynophagia, dysphagia, or tinnitus. Cardiovascular: Orthopnea, dyspnea on exertion and sometimes at rest reported. Chest pain r elated to surgery reported. Denies palpitations. Respiratory: Dry cough present for a couple of weeks. Denies hemoptysis, or sputum producti on. Gastrointestinal: Denies abdominal pain, constipation, diarrhea, melena, or bright red bloo d per rectum. Genitourinary: Denies hematuria or dysuria. Musculoskeletal: Denies joint pain or tenderness. Neurologic: Reports voided spots in left eye and intermittent headaches. Denies numbness/ti ngling of the extremities. Endocrine: Denies peripheral edema or heat/cold intolerance. Hematologic: Denies spontaneous bruising or bleeding. Integumentary: Denies rash, wounds or other skin concerns. Pain: Surgical chest pain is as high as 6/10 and as low as 4/10, <4/10. ROS otherwise negative. Note:Here for labs, follow up and treatment. My chart:declined. documented in this encounter Plan of Treatment [...] | | | | | | [place] [address] | | | | | | [phone] | | | | | | | | +--------+ + + + + documented as of this encounter Procedures + +--------+ + + + | Procedure Name | Priori | Date/Time | Associated Diagnosis | Comments | | | ty | | | | + +--------+ + + + | CBC WITH | STAT | 02/05/2019 | Malignant neoplasm | Results for this | | DIFFERENTIAL | | 10:21 AM | of upper lobe of | procedure are in the | | | | PDT | left lung (HCC) | results section. | + +--------+ + + + | COMPREHENSIVE | STAT | 02/05/2019 | Malignant neoplasm | Results for this | | METABOLIC PANEL | | 10:21 AM | of upper lobe of | procedure are in the | | | | PDT | left lung (HCC) | results section. | + +--------+ + + + documented in this encounter Results CBC with Differential (02/05/2019 10:21 AM PDT) + + + + + + | Component | Value | Ref Range | Performed | Pathologist | | | | | At | Signature | + + + + + + | White Blood | 13.9 (H) | 4.0 - 11.0 K/uL | [facility] | | | Cells | | | [facility] | | | | | | [facility] | | | | | | [facility] - | | | | | | LABORATORY | | + + + + + + | Red Blood | 3.59 (L) | 3.70 - 5.20 | [facility] | | | Cells | | M/uL | [facility] | | | | | | [facility] | | | | | | [facility] - | | | | | | LABORATORY | | + + + + + + | Hemoglobin | 10.6 (L) | 11.5 - 16.0 | [facility] | | | | | g/dL | [facility] | | | | | | [facility] | | | | | | [facility] - | | | | | | LABORATORY | | + + + + + + | Hematocrit | 32.1 (L) | 34.0 - 47.0 % | [facility] | | | | | | [facility] | | | | | | [facility] | | | | | | [facility] - | | | | | | LABORATORY | | + + + + + + | MCV | 89.4 | 83.0 - 101.0 fL | [facility] | | | | | | [facility] | | | | | | [facility] | | | | | | [facility] - | | | | | | LABORATORY | | + + + + + + | MCH | 29.5 | 28.0 - 35.0 pg | [facility] | | | | | | [facility] | | | | | | [facility] | | | | | | [facility] - | | | | | | LABORATORY | | + + + + + + | MCHC | 33.0 | 32.0 - 36.0 | [facility] | | | | | g/dL | [facility] | | | | | | [facility] | | | | | | [facility] - | | | | | | LABORATORY | | + + + + + + | RDW-CV | 14.8 | <15.0 % | [facility] | | | | | | [facility] | | | | | | [facility] | | | | | | [facility] - | | | | | | LABORATORY | | + + + + + + | RDW-SD | 49.2 (H) | 35.1 - 46.3 fL | [facility] | | | | | | [facility] | | | | | | [facility] | | | | | | [facility] - | | | | | | LABORATORY | | + + + + + + | Platelet | 369 | 140 - 440 K/uL | [facility] [...] + + + + | % | 89.2 (H) | 45.0 - 82.0 % | [facility] | | | Neutrophils | | | [facility] | | | | | | [facility] | | | | | | [facility] - | | | | | | LABORATORY | | + + + + + + | % | 5.9 (L) | 20.0 - 45.0 % | [facility] | | | Lymphocytes | | | [facility] | | | | | | [facility] | | | | | | [facility] - | | | | | | LABORATORY | | + + + + + + | % Monocytes | 3.9 (L) | 4.0 - 12.0 % | [facility] [...] + + + | % Basophils | 0.1 | 0.0 - 1.0 % | [facility] | | | | | | [facility] | | | | | | [facility] | | | | | | [facility] - | | | | | | LABORATORY | | + + + + + + | % Immature | 0.9 (H)Comment: | 0.0 - 0.4 % | [...] + + + + | Absolute | 12.39 (H) | 1.80 - 8.50 | [facility] | | | Neutrophils | | K/uL | [facility] | | | | | | [facility] | | | | | | [facility] - | | | | | | LABORATORY | | + + + + + + | Absolute | 0.82 | 0.60 - 3.20 | [facility] | | | Lymphocytes | | K/uL | [facility] | | | | | | [facility] | | | | | | CENTER - | | | | | | LABORATORY | | + + + + + + | Absolute | 0.54 | 0.00 - 1.00 | [facility] | [...] + + + + | Absolute | 0.13 (H) | 0.00 - 0.03 | [facility] | [...] [address] | [place] | [phone] | | [facility] | | [address] | | | - LABORATORY | | | | + + + + + Comprehensive Metabolic Panel (02/05/2019 10:21 AM PDT) + + + + + + | Component | Value | Ref Range | Performed | Pathologist | | | | | At | Signature | + + + + + + | Na | 136 | 136 - 145 | [facility] | | | | | mmol/L | [facility] | | | | | | [facility] | | | | | | [facility]ENTER - | | | | | | LABORATORY | | + + + + + + | K | 3.5 | 3.4 - 5.1 | [facility] | [...] + + + + | Glucose | 114 (H) | 60 - 106 mg/dL | [facility] | | | | | | [facility] | | | | | | [facility] | | | | | | [facility]ENTER - | | | | | | LABORATORY | | + + + + + + | BUN | 23 | 9 - 23 mg/dL | [facility] | | | | | | [facility] | | | | | | [facility] | | | | | | CENTER - | | | | | | LABORATORY | | + + + + + + | Creatinine | 0.75 | 0.55 - 1.02 | [facility] | | | | | mg/dL | [facility] | | | | | | MEDICAL | | | | | | CENTER - | | | | | | LABORATORY | | + + + + + + | eGFR, | >60Comment: GLOMERULAR | >=60 | [facility] | | | non- | FILTRATION | mL/min/1.73m2 | [facility] | | | [facility] | RATE,ESTIMATED | | MEDICAL | | | | mL/min/1.43f3Nqfq than | | CENTER - | | [...] + + + + | Calcium | 9.5 | 8.7 - 10.4 | [facility] | | | | | mg/dL | [facility] | | | | | | MEDICAL | | | | | | CENTER - | | | | | | LABORATORY | | + + + + + + | Albumin | 4.2 | 3.2 - 4.8 g/dL | [facility] | | | | | | [facility] | | | | | | [facility] | | | | | | CENTER - | | | | | | LABORATORY | | + + + + + + | Bilirubin | 0.4 | 0.3 - 1.2 mg/dL | [facility] | | | Total | | | [facility] | | | | | | MEDICAL | | | | | | CENTER - | | | | | | LABORATORY | | + + + + + + | Total | 6.7 | 5.7 - 8.2 g/dL | [facility] [...] + + + + | Alkaline | 84 | 46 - 116 U/L | [facility] [...] + + + + | BUN/Creatin | 30.7 | | [facility] | | | ine [...] + | [facility] | [address] | [place] | [phone] | | [facility] | | [address] | | | - LABORATORY | | | | + + + + + documented in this encounter Visit Diagnoses + + | Diagnosis | + + | Malignant neoplasm of upper lobe of left lung (HCC) - Primary | + + documented in this encounter"
--- OUTSIDE RECORDS SUMMARY | ~2020-03-30 | XMS | Encounter Summary ---
Demographics + + + | Address | [address] | | | [place] [address] | + + + | Home Phone [...] Providers + +------+ + | Care Maintenance Helper Name | Role | Phone | [...] | | | [address] | [place], [place] | | | | | Physician's | [address] | | | | | Maame, [facility] floor | [phone] | | | | | [place], [place] | | | | | | [address] | | | | | | [phone] | | | +--------+ + + + [...] | | | | | [place], | | | | | | [place] [address] | | | | | | [phone] | | | | | | | | +--------+---------+ + + + | 04/30/ | Office | Otolaryngology | Augustine Nolan | | | 2019 | Visit | | MD Debbie [address] | | | | | | [address] | | | | | | [place] | | | | | | [address] | | | | | | [phone] | | | | | | | | +--------+---------+ + + + documented as of this encounter Visit Diagnoses Not on filedocumented in this encounter
--- OUTSIDE RECORDS SUMMARY | ~2020-03-30 | XMS | Encounter Summary ---
Demographics + + + | Address | [address] | | | [place] [address] | + + + | Home Phone [...] Team Providers + +------+ + | Care Air Pollution Specialist Name | Role | Phone | [...] | | | | | [place], | | | | | | [place] [address] | | | | | | [phone] | | | | | | | | +--------+---------+ + + + | 04/30/ | Office | Otolaryngology | Augustine Nolan | | | 2019 | Visit | | MD Debbie [address] | | | | | | [address] | | | | | | [place], [place] | | | | | | [address] | | | | | | [phone] | | | | | | | | +--------+---------+ + + + documented as of this encounter Visit Diagnoses Not on filedocumented in this encounter
--- OUTSIDE RECORDS SUMMARY | ~2020-03-30 | XMS | Encounter Summary ---
Demographics + + + | Address | [address] | | | [place] [address] | + + + | Home Phone [...] + | Author | [facility] | | | and Jakobana | + + + | Organization | [facility] | | | [...] Team Providers + +------+ + | Care Button Facing Machine Operator Name | Role | Phone [...] | | of left lung | [address] | [place], | | | | | (HCC) | [place], | [place] [address] | | | | | Procedures | [place] | Phone: | | | | | [address] | [address] | [phone] | | | | | | Phone: | Fax: | | | | | | [phone] | [phone] | | | | | | Fax: | | | | | | | [phone] | | +--------+--------+ + + + + Encounter Details +--------+ + + + + | Date | Type | Department | Care Team | Description | +--------+ + + + + | 03/27/ | Hospital | [facility] | Adolfo, | Leukocytosis, | | 2019 | Encounter | [facility] | Boubacar Daniels MD [address] | unspecified type | | | | [facility]Y CLINIC [address] | [facility] | (Primary Dx); Acute | | | | [address] | [address], [place] | respiratory distress | | | | [place] [address] | [address] | syndrome (ARDS) | | | | [phone] | | (HCC); Aspiration | | | | | | [...] encounter Progress Notes Boubacar Mata MD - 03/27/2019 2:32 PM PDTFormatting of this note might be differe nt from the original. Hematology/Oncology Progress Note [place], [place] Pt. Name/Age/: Sussy Allred 69 y.o. 1950 Med. Record Number: [id number] Date of admission: 03/27/2019 The patient's primary care provider is Lauryn Stuart PA-C. Identifying Statement: Sussy Allred is a 69 y.o. female [place] [address] [place] [address] [place] [address] with Stage IIIA poorly differentiated adenocarcinoma of [...] dysphagia. - Strict NPO, consider re consulting REDUCING SYSTEM OPERATOR today pending course and ENT recs [...] L, 4L and hilar lymph nodes ([facility]). Patholog ical specimen # [id number] was notable for a poorly differentiated adenocarcinoma, [...] Sussy Allred returned to clinic alone on 03/27/2019 for follow up of her Stage IIIA wilma nocarcinoma of the left lung, cycle #3 day #8 carboplatin/pemetrexed, which is being given c oncurrently with external beam radiation therapy. Chief complaint is headaches; she underwent MRI of the brain, directed by Dr. Anne in [facility], which was non-specific. Repeat exam was recommended in one month. Dr. Lyndon garcia has prescribed gabapentin. Clinical exam reconfirms fullness in the left supraclavicular fossa, but ultrasound exclude d any pathological lymphadenopathy there. Katharina and Pili concluded that this area of fullness is potentially related to lymphedema from her left upper lobe thoracotomy. Laboratory exam is notable for grade 2 leukopenia, neutropenia and anemia. Assessment; Grade 2 myelosuppression from pemetrexed/carboplatin chemotherapy for adjuvant treatment of Stage IIIA adenocarcinoma of the lung, none of which is dose limiting. Plan; return to clinic on April 10, 2019 for his fourth and last cycle of chemotherapy, if treatment criterion are met. Review of Systems: Constitutional: Worsened indigestion/heartburn pain. Also, pain w/ swallowing. Reports low energy levels. Reports worsened nausea, also poor appetite. Weight dec'd since last visit. D enies high fevers, shaking chills, anorexia, vomiting, or night sweats. Ear, Nose, Mouth, Throat: Worsened dysphagia for solids and liquids. Denies tinnitus. Cardiovascular: Reports WILLIS, SOB, and poor activity tolerance. Reports L-sided chest pain. Denies palpitations or orthopnea. Respiratory: Reports ongoing dry cough, unchanged. Denies hemoptysis, or sputum production. Gastrointestinal: Denies abdominal pain, constipation, diarrhea, melena, or bright red bloo d per rectum. Genitourinary: Denies hematuria or dysuria. Musculoskeletal: Reports ongoing neck pain. Neurologic: Reports worsened headaches, also feeling dizzy. Reports visual changes since sparks Lacey tejeda eye "blurring/absent areas." Reports new numbness/tingling in hands/feet. Started y . Endocrine: Denies peripheral edema or heat/cold intolerance. Hematologic: Denies spontaneous bruising or bleeding. Easier to bruise. Integumentary: Reports rash to chest and upper back. Pruritic, using topical steroid cream but unable to apply to back. Denies wounds or other skin concerns. Pain: Reports L-sided surgical site pain. Rates at 04/29. Worsened indigestion/heartburn tiffanie n. Rates at 04/29. Note: here for labs and follow-up w/ [...] two days after chemotherapy. 40 tablet 0 sdloukbulgPVUCN-gwiwmbfis-qsgztkuo & magnesium hydroxide-simethicone (MAGIC MOUTHWASH) Swish and spit 5 mLs every 4 hours as needed for Pain. (RECIPE=1:1 mixture of Maalox, viscou s lido Dropping diphenhydramine due todrowsiness 200 mL 1 azvwvwyghtOFWQZ-tglkipffw-kyowcdoq & magnesium hydroxide-simethicone (MAGIC MOUTHWASH) Take 5 [...] sleeplessness 30 tablet 4 Misc Natural Products ([facility] GOJI PO) Take 2 oz by mouth [...] output data in the 24 hours ending 08/11/19 1345 Wt. Admission: Wt. Current: Wt Readings from Last 3 Encounters: 03/27/19 54.7 kg (120 lb 9.5 oz) 03/20/19 55.8 kg (123 lb 0.3 oz) 03/13/19 54.4 kg (119 lb 14.9 oz) Physical Exam: General: The patient is [...] Oncol.: Niranjan Lopez., Beronica Walters., Renaldo Parish., May Avery., Turner, T.E., Coral, E.T., Georgette, P .P.: Toxicity And [...] for SUSSY ALLRED" ( ) as of 03/30/2019 13:12 Ref. Range 03/27/2019 13:46 WBC Latest Ref Range: 4.0 - 11.0 K/uL 1.9 (LL) RBC COUNT Latest Ref Range: 3.70 - 5.20 M/uL 3.06 (L) Hemoglobin Latest Ref Range: 11.5 - 16.0 g/dL 9.5 (L) Hematocrit Latest Ref Range: 34.0 - 47.0 % 28.4 (L) MCV Latest Ref Range: 83.0 - 101.0 fL 92.8 MCH Latest Ref Range: 28.0 - 35.0 pg 31.0 MCHC Latest Ref Range: 32.0 - 36.0 g/dL 33.5 RDW-CV Latest Ref Range: <15.0 % 19.9 (H) RDW-SD Latest Ref Range: 35.1 - 46.3 fL 66.6 (H) Platelet Count Latest Ref Range: 140 - 440 K/uL 197 MPV Latest Ref Range: 6.5 - 12.4 fL 7.9 % nRBC Latest Ref Range: 0 - 2 per 100 WBCs 0 Absolute nRBC Latest Ref Range: 0.00 - 0.01 K/uL 0.00 Absolute Neutrophils Latest Ref Range: 1.80 - 8.50 K/uL 1.29 (L) Absolute Lymphocytes Latest Ref Range: 0.60 - 3.20 K/uL 0.28 (L) Absolute Monocytes Latest Ref Range: 0.00 - 1.00 K/uL 0.26 Absolute Eosinophils Latest Ref Range: 0.00 - 0.40 K/uL 0.00 Absolute Basophils Latest Ref Range: 0.00 - 0.10 K/uL 0.00 Absolute Immature Granulocytes Latest Ref Range: 0.00 - 0.03 K/uL 0.02 % Neutrophils Latest Ref Range: 45.0 - 82.0 % 69.7 % Lymphocytes Latest Ref Range: 20.0 - 45.0 % 15.1 (L) % Monocytes Latest Ref Range: 4.0 - 12.0 % 14.1 (H) % Eosinophils Latest Ref Range: 0.0 - 5.0 % 0.0 % Basophils Latest Ref Range: 0.0 - 1.0 % 0.0 % Immature Granulocytes Latest Ref Range: 0.0 - 0.4 % 1.1 (H) Na Latest Ref Range: 136 - 145 mmol/L 133 (L) K Latest Ref Range: 3.4 - 5.1 mmol/L 3.7 Chloride Latest Ref Range: 98 - 107 mmol/L 100 Carbon dioxide Latest Ref Range: 20 - 31 mmol/L 27 Anion Gap Latest Ref Range: 3 - 16 mmol/L 6 Glucose Latest Ref Range: 60 - 106 mg/dL 108 (H) BUN Latest Ref Range: 9 - 23 mg/dL 15 Creatinine Latest Ref Range: 0.55 - 1.02 mg/dL 0.70 BUN/Creatinine Ratio Unknown 21.4 Albumin Latest Ref Range: 3.2 - 4.8 g/dL 4.1 Albumin/Globulin Ratio Latest Ref Range: 0.8 - 1.9 1.9 Total Protein Latest Ref Range: 5.7 - 8.2 g/dL 6.3 EGFR IF NOT Latest Ref Range: >=60 mL/min/1.73m2 >60 Calcium Latest Ref Range: 8.7 - 10.4 mg/dL 9.1 ALK PHOS Latest Ref Range: 46 - 116 U/L 82 ALT (SGPT) (REF) Latest Ref Range: 10 - 49 U/L 18 AST (SGOT) (REF) Latest Ref Range: 0 - 34 U/L 25 Bilirubin Total (Calculated) Latest Ref Range: 0.3 - 1.2 mg/dL 0.5 Globulin Latest Ref Range: 2.1 - 3.8 g/dL 2.2 EXAM: MRI BRAIN W WO CONTRAST dated 03/14/2019 11:02 AM HISTORY: headache, lung cancer COMPARISON: Outside MRI dated 11/26/2018 TECHNIQUE: Multiplanar, multisequence imaging of the brain was performed in the 1.5 T MR scanner prior to and following the uneventful intravenous administration of 5.5 cc of Gadavist contrast. FINDINGS: There is no mass, mass effect, or midline shift. There are several scattered areas of periventricular and subcortical white matter T2 and FLAIR hyperintensities. There are new somewhat linear areas of FLAIR hyperintensity in the right occipital lobe and a new focal nonlinear area in the left occipital lobe. Both of these show associated enhancement. There are 2 linear appearing regions of precontrast T1 hyperintensity in the superior portion of the left occipital lobe. This area is one of the areas this shows superimposed enhancement. There are truly discrete or circumscribed lesions. Redemonstration of a developmental venous anomaly in the left cerebellar hemisphere. There is enhancement within the cavernous and dural venous sinuses suggesting patency. The major intracranial flow voids are visible suggesting vessel patency. No areas of restricted diffusion. No GRE castro artifact to suggest abnormal hemosiderin deposition or mineralization. Minimal T2 hyperintensity in the left mastoid tip. Minimal mucosal thickening. There are cells. The globes and retrobulbar structures are symmetric and unremarkable. No identified scalp or skull lesions. IMPRESSION - Compared to November 26, 2018 there are small areas of new T2 and FLAIR hyperintensity in the occipital lobes bilaterally. Both show some faint enhancement. The etiology of these lesions is uncertain. These do not fit the typical appearance for metastatic disease although this would not be entirely excluded as a possibility. They could be the sequelae of recent ischemia. Dictated and Signed by: Cleve Bourgeois MD Electronically signed: 03/14/2019 12:55 PM ULTRASOUND SOFT TISSUE NECK 03/20/2019 2:45 PM CLINICAL HISTORY: evaluate swelling in the left supraclavicular fossa, patient with lung cancer COMPARISON: RADIATION THERAPY PLANNING CT FEBRUARY 13 AND MORE REMOTE IMAGING FINDINGS: Sonographic interrogation of the left supraclavicular region identifies well-defined tissue planes demarcating subcutaneous fat from underlying musculature and patent appearing vessels. No mass, fluid collection or enlarged lymph node is identified. Interrogation of the right supraclavicular region demonstrates a similar appearance. IMPRESSION - 1. NO VISIBLE SUPRACLAVICULAR ABNORMALITY. Dictated and Signed by: Lucio Her MD Electronically signed: 03/20/2019 5:11 PM Pharmacovigilance: Palliative Care: Patient's Medications New Prescriptions GABAPENTIN (NEURONTIN) 300 MG CAPSULE Take one capsule by mouth at bedtime for one day, then one capsule twice daily for one day, then 1 capsule three times daily Modified Medications No medications on file Discontinued Medications No medications on file Procedure: Boubacar Mata MD Portions of this chart may have been created with [employer] voice recognition software. Occasi onal wrong-word or sound-alike substitutions may have occurred due to the inherent tripathi itations of voice recognition software. Please read the chart carefully and recognize, using context, where these substitutions have occurred.- documented in this encounter Miscellaneous Notes Assessment & Plan Note - Boubacar Mata MD - 03/30/2019 1:21 PM PDTAssociated Prob kati(s): Lung cancer (HCC)Sussy Allred returned to clinic alone on 03/27/2019 for follow up of her Stage IIIA adenocarcinoma of the left lung, cycle #3 day #8 carboplatin/pemetrexed, which is being given concurrently with external beam radiation therapy. Chief complaint is headaches; she underwent MRI of the brain, directed by Dr. Anne in [facility], which was non-specific. Repeat exam was recommended in one month. Dr. Lyndon garcia has prescribed gabapentin. Clinical exam reconfirms fullness in the left supraclavicular fossa, but ultrasound exclude d any pathological lymphadenopathy there. Katharina and Pili concluded that this area of fullness is potentially related to lymphedema from her left upper lobe thoracotomy. Laboratory exam is notable for grade 2 leukopenia, neutropenia and anemia. Assessment; Grade 2 myelosuppression from pemetrexed/carboplatin chemotherapy for adjuvant treatment of Stage IIIA adenocarcinoma of the lung, none of which is dose limiting. Plan; return to clinic on April 10, 2019 for his fourth and last cycle of chemotherapy, if treatment criterion are met. documented in this encounter Plan of Treatment +--------+ + + + + | Date | Type | Specialty | Care Team | Description | +--------+ + + + + | 04/20/ | Appointment | Radiation Oncology | Treva Ortega | | | 2019 | | | DEISY Hernandez [address] | | | | | [address] [place] | | | | | | [place] [address] | | | | | | [phone] | | | | | | | | +--------+ + + + + documented as of this encounter Procedures + +--------+ + + + | Procedure Name | Priori | Date/Time | Associated Diagnosis | Comments | | | ty | | | | + +--------+ + + + | CBC WITH | STAT | 03/27/2019 | Acute respiratory | Results for this | | DIFFERENTIAL | | 1:46 PM | distress syndrome | procedure are in the | | | | PDT | (AR[facility]) ([facility]) | results section. | | | | | Aspiration | | | | | | pneumonitis (HCC) | | | | | | Leukocytosis, | | | | | | unspecified type | | | | | | Malignant neoplasm | | | | | | of upper lobe of | | | | | | left lung (HCC) | | + +--------+ + + + | COMPREHENSIVE | STAT | 03/27/2019 | Acute respiratory | Results for this | | METABOLIC PANEL | | 1:46 PM | distress syndrome | procedure are in the | | | | PDT | (ARDS) ([facility]) | results section. | | | | | Aspiration | | | | | | pneumonitis (HCC) | | | | | | Leukocytosis, | | | | | | unspecified type | | | | | | Malignant neoplasm | | | | | | of upper lobe of | | | | | | left lung (HCC) | | + +--------+ + + + documented in this encounter Results Comprehensive Metabolic Panel (03/27/2019 1:46 PM PDT) + + + + + [...] + + + + | K | 3.7 | 3.4 - 5.1 | [facility] | | | | | mmol/L | [facility] | | [facility] | | | [facility] | [facility] - | | | | | | [facility]ATORY | | + + + + + + | Cl | 100 | 98 - 107 mmol/L | [facility] | | | | | | [facility] | | | | | | [facility] | | | | | [facility] - | | | | | | LAB[facility]ATORY | | + + + + + + | CO2 | 27 | 20 - 31 mmol/L | [facility] | | | | | | [facility] | | | | | | [facility] | | | | | [facility] - | | | | | | LABORATORY | | + + + + + + | Anion Gap | 6 | 3 - 16 mmol/L | [facility] | | | | | | [facility] | | | | | | [facility] | | | | | | [facility] - | | | | | | LAB[facility]ATORY | | + + + + + + | Glucose | 108 (H) | 60 - 106 mg/dL | [facility] | | | | | | [facility] | | | | | [facility] | | | | | | [facility] - | | | | | | LABORATORY | | + + + + + + | BUN | 15 | 9 - 23 mg/dL | [facility] | | | | | | [facility] | | | | | | [facility] | | | | | | [facility] - | | | | | | LAB[facility]ATORY | | + + + + + + | Creatinine | 0.70 | 0.55 - 1.02 | [facility] | | | | | mg/dL | [facility] | | | | | | MEDICAL | | | | | | CENTER - | | | | | | LABORATORY | | + + + + + + | eGFR, | >60Comment: GLOMERULAR | >=60 | [facility] | | | non- | FILTRATION | mL/min/1.73m2 | [facility] | | | Burmese | RATE,ESTIMATED | | MEDICAL | | | | mL/min/1.52d7Kbvx than | | CENTER - | | [...] + + + + | Calcium | 9.1 | 8.7 - 10.4 | [facility] | | | | | mg/dL | [facility] | | | | | | [...] + + + + | AST | 25 | 0 - 34 U/L | [facility] | | | | | | [facility] | | | | | | [facility] | | | | | | [facility] - | | | | | | LABORATORY | | + + + + + + | ALT | 18 | 10 - 49 U/L | [facility] | | | | | | [facility] | | | | | | [facility] | | | | | | [facility] - | | | | | | LABORATORY | | + + + + + + | Alkaline | 82 | 46 - 116 U/L | [facility] [...] + + + + | BUN/Creatin | 21.4 | | [facility] | | | ine [...] [address] | [place] | [phone] | | [facility] | | [address] | | | - LABORATORY | | | | + + + + + CBC with Differential (03/27/2019 1:46 PM PDT) + + + + + + | Component | Value | Ref Range | Performed | Pathologist | | | | | At | Signature | + + + + + + | White Blood | 1.9 (LL)Comment: Cancer | 4.0 - 11.0 K/uL | [facility] | | | Cells | center, not called | | [facility] | | | | | [facility] | | | | | | [facility] - | | | | | | LABORATORY | | + + + + + + | Red Blood | 3.06 (L) | 3.70 - 5.20 | [facility] | | | Cells | | M/uL | [facility] | | | | | | MEDICAL | | | | | | CENTER - | | | | | | LABORATORY | | + + + + + + | Hemoglobin | 9.5 (L) | 11.5 - 16.0 | [facility] | | | | | g/dL | [facility] | | | | | | [facility]ICAL | | | | | | CENTER - | | | | | | LABORATORY | | + + + + + + | Hematocrit | 28.4 (L) | 34.0 - 47.0 % | [facility] | | | | | | [facility] | | | | | | [facility] | | | | | | [facility] - | | | | | | LABORATORY | | + + + + + + | MCV | 92.8 | 83.0 - 101.0 fL | [facility] | | | | | | [facility] | | | | | | [facility] | | | | | | [facility] - | | | | | | LABORATORY | | + + + + + + | MCH | 31.0 | 28.0 - 35.0 pg | [facility] | | | | | | [facility] | | | | | | [facility] | | | | | | [facility] - | | | | | | LABORATORY | | + + + + + + | MCHC | 33.5 | 32.0 - 36.0 | [facility] | [...] + + + + | RDW-SD | 66.6 (H) | 35.1 - 46.3 fL | [facility] | | | | | | [facility] | | | | | | [facility] | | | | | | [facility] - | | | | | | LABORATORY | | + + + + + + | Platelet | 197 | 140 - 440 K/uL | [facility] | | | Count | | | [facility] | | | | | | [facility] | | | | | | [facility] - | | | | | | LABORATORY | | + + + + + + | MPV | 7.9 | 6.5 - 12.4 fL | [facility] | | | | | | [facility] | | | | | | [facility] | | | | | | [facility] - | | | | | | LABORATORY | | + + + + + + | % | 69.7 | 45.0 - 82.0 % | [facility] | | | Neutrophils | | | [facility] | | | | | | [facility] | | | | | | CENTER - | | | | | | LABORATORY | | + + + + + + | % | 15.1 (L) | 20.0 - 45.0 % | [facility] | | | Lymphocytes | | | [facility] | | | | | | [facility] | | | | | | CENTER - | | | | | | LABORATORY | | + + + + + + | % Monocytes | 14.1 (H) | 4.0 - 12.0 % | [...] + + + | % Immature | 1.1 (H)Comment: | 0.0 - 0.4 % | [...] + + + + | Absolute | 1.29 (L) | 1.80 - 8.50 | [facility] | | | Neutrophils | | K/uL | [facility] | | | | | | [facility] | | | | | | CENTER - | | | | | | LABORATORY | | + + + + + + | Absolute | 0.28 (L) | 0.60 - 3.20 | [facility] | | | Lymphocytes | | K/uL | [facility] | | | | | | [facility] | | | | | | [facility] - | | | | | | LABORATORY | | + + + + + + | Absolute | 0.26 | 0.00 - 1.00 | [facility] | [...] [address] | [place] | [phone] | | [facility] | | [address] | | | - LABORATORY | | | | + + + + + documented in this encounter Visit Diagnoses + + | Diagnosis | + + | Leukocytosis, unspecified type - Primary | + + | Acute respiratory distress [...]
--- OUTSIDE RECORDS SUMMARY | ~2020-03-30 | XMS | Encounter Summary ---
Demographics + + + | Address | [address] | | | [place] [address] | + + + | Home Phone | | + + + | Preferred Language | Unknown | + + + | Marital Status | Single | + + + | Episcopal Affiliation | NRP | + + + [...] Team Providers + +------+ + | Care Lifestyle Director Name | Role | Phone | [...] | | evaluation | | | | [facility] | | | | | | [address] | | | | | | [place] [facility] | | | | | | and Healing, | | | | | | [address] | | | | | | [place], [place] | | | | | | [address] | | | | | | [phone] | | | +--------+ + + + [...] | | | | | [place], | | | | | | [place] [address] | | | | | | [phone] | | | | | | | | +--------+---------+ + + + | 04/30/ | Office | Otolaryngology | Augustine Nolan | | | 2020 | Visit | | MD Debbie [address] [facility] | | | | | | [address] | | | | | | [place] | | | | | | [address] | | | | | | [phone] | | | | | | | | +--------+---------+ + + + documented as of this encounter Visit Diagnoses Not on filedocumented in this encounter
--- OUTSIDE RECORDS SUMMARY | ~2020-03-30 | XMS | Encounter Summary ---
Demographics + + + | Address | [address] | | | [place] [address] | + + + | Home Phone [...] Providers + +------+ + | Care Home Teaching Grades 7 And 8 Teacher Name | Role | Phone | [...] | 2019 | Event | [address] [place] | [address] | | | | | [address] [facility] | [place], | | | | | Hospital Admitting | [place] [address] | | | | | Desk Located on the | [phone] | | | | | 9th floor | | | | | | [place], [place] | Matias Alonso MD | | | | | [address] | [address] | | | | | | [address] | | | | | | [place], [place] | | | | | | [address] | | | | | | [phone] | | | | | | | [...] | | 1 | Quick Note | [place] [employer] [place] anthony PA clamped | | [...] | | | | | [place], | | | | | | [place] [address] | | | | | | [phone] | | | | | | | | +--------+---------+ + + + | 04/30/ | Office | Otolaryngology | Augustine Nolan | | | 2019 | Visit | | MD Debbie [address] | | | | | | [address] | | | | | | [place] | | | | | | [address] | | | | | | [phone] | | | | | | | [...] INTUBATION ATTEMPT 1 | | | Videolaryngoscopy: [facility] Standard geometry curved blade [employer]: | | [...]
--- OUTSIDE RECORDS SUMMARY | ~2020-03-30 | XMS | Encounter Summary ---
Demographics + + + | Address | [address] | | | [place] [address] | + + + | Home Phone [...] + + + | Author | [facility] | | | and Jakobana | + + + | Organization | [facility] | | | and [...] Providers + +------+ + | Care Line O Scribe Operator Name | Role | Phone | [...] | | of left lung | [address] | [place], | | | | | (HCC) | [place], | [place] [address] | | | | | Procedures | [place] | Phone: | | | | | [phone] | [address] | [phone] | | | | | | Phone: | Fax: | | | | | | [phone] | [phone] | | | | | | Fax: | | | | | | | [phone] | | +--------+--------+ + + + + Encounter Details +--------+ + + + + | Date | Type | Department | Care Team | Description | +--------+ + + + + | 05/20/ | Hospital | [facility] | Adolfo, | Acute respiratory | | 2019 | Encounter | [facility] | Boubacar Daniels MD 2403 | distress syndrome | | | | [facility] [address] | [facility] | (ARDS) (HCC) | | | | [address] | [address], [place] | (Primary Dx); | | | | [place] [address] | [address] | Malignant neoplasm | | | | [phone] | | of hilus of lung, | | | | | | unspecified | | | | | | laterality (HCC); | | | | | | Postoperative anemia | | | | | | due to acute blood | | | | | | loss; Anemia due to | | | | | | chemotherapy; | | | | | | Cervicalgia; | | | | | | Hypophosphatemia; | | | | | | Pain medication | | | | | | agreement signed | +--------+ + + + + Social [...] + + + | Blood Pressure | 121/67 | 05/20/2019 9:31 AM | | | | | PDT | | + + + + + | Pulse | 68 | 05/20/2019 9:31 AM | | | | | PDT | | + + + + + | Temperature | 36.7 C (98 F) | 05/20/2019 9:31 AM | | | | | PDT | | + + + + + | Respiratory Rate | 16 | 05/20/2019 9:31 AM | | | | | PDT | | + + + + + | Oxygen Saturation | 96% | 05/20/2019 9:31 AM | | | | | PDT | | + + + + + | Inhaled Oxygen | - | - | | | Concentration | | | | + + + + + | Weight | 53.1 kg (117 lb 1 | 05/20/2019 9:31 AM | | | | oz) | PDT | | + + + + + | Height | - | - | | + + + + + | Body Mass Index | 19.5 | 01/30/2019 2:26 PM | | | [...] patch onto | 10 | 0 | 05/20/20 | | | (DURAGESIC) 50 | the [...] tablets by | 60 | 0 | 05/20/20 | | | HYDROcodone-acetamin | mouth every [...] encounter Progress Notes Boubacar Mata MD - 05/20/2019 9:30 AM PDTFormatting of this note might be differe nt from the original. Hematology/Oncology Progress Note [place], [place] Pt. Name/Age/: Sussy Allred 69 y.o. 1950 Med. Record Number: [id number] Date of admission: 05/20/2019 The patient's primary care provider is Lauryn Harries, PA-C. Identifying Statement: Sussy Allred is a 69 y.o. female from [address] [place] [address] [address] [place] [address] with Stage IIIA poorly differentiated adenocarcinoma of the lung, status post left upper lobectomy December 04, 2018. The patient chart and medications were reviewed in detail and the patient was seen and exam ined. History of Present Illnesses, their Current Assessments and Plans: Problem List Acute respiratory distress syndrome (ARDS) Anemia due to chemotherapy Cervicalgia Hypophosphatemia Overview Last Assessment & Plan: Profound hypophosphatemia after TF started concerning for refeeding syndrome - Ok to restart feeds - Check lytes q12h Lung cancer Overview ACTIVE DIAGNOSIS: pT2a,pN2,M0, Stage [...] L, 4L and hilar lymph nodes ([facility]). Patholog ical specimen # [id number] was notable for a poorly differentiated adenocarcinoma, [...] Sussy Allred returned to clinic alone on 05/20/2019 for follow up, five weeks after co mpleting combined modality adjuvant chemoradiation therapy for Stage IIIA adenocarcinoma of the left lung. 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 Review of systems is notable for left sided thorax pain and attacks of breathlessness, than seem to occur unpredictably. Voice remains hoarse. Clincal exam is notable for clear lung logan bilaterally. Laboratory exam is notable for grade 1 anemia, without leukopenia or thrombocytopenia. Assessment; Stage IIIA adenocarcinoma of the left lung, status post left upper lobe lobecto my, followed by adjuvant chemoradiation therapy. Malignant neoplasm related pain. Episodic dyspnea, consider diaphragmatic dysfunction following lung surgery. Situational anxiety. Plan; Schedule sniff test to exclude paralyzed diaphragm. Refill topical fentanyl, hydromorphone, [place] and alprazolam. Clinical and laboratory follow up and medication refills in one month. Pain medication agreement signed Overview 12/23/2013 UDS obtained. Next Cambridge due 08/25/2014 Postoperative anemia due to acute blood loss Overview Last Assessment & Plan: - monitor chest tube output - CBC daily Review of Systems: Constitutional: Notes ongoing L breast pain. Reports returning to work, having difficulty w / energy levels and meeting employees' expectations. Reports tolerating more PO intake, khloe ds and cheeses tolerated well. Denies high fevers, shaking chills, anorexia, or night sweats . Ear, Nose, Mouth, Throat: Notes new voice hoarseness. Mild dysphagia w/ oral fluid intake. Denies odynophagia or tinnitus. Cardiovascular: Reports worsening shortness of breath at rest and with exertion. "Back to a ll the time again." Reports chest/esophageal pain ongoing, also palpitations when SOB. Denie s orthopnea. Respiratory: Reports resolve of cough. Denies cough, sputum production, hemoptysis. Gastrointestinal: Denies abdominal pain, constipation, diarrhea, melena, or bright red bloo d per rectum. Genitourinary: Denies hematuria or dysuria. Musculoskeletal: Denies joint pain or tenderness. Neurologic: Reports ongoing "floaters" as well as "lights in peripheral vision." Reports wo rsened headaches, attributes to stress from work. Reports intermittent numbness/tingling of the fingers, ongoing. Endocrine: Reports feeling cold all the time, attributes to weight loss. Reports bilateral ankle edema. Denies heat intolerance. Hematologic: Denies spontaneous bruising or bleeding. Integumentary: Reports continued hair loss. Denies rash, wounds or other skin concerns. Pain: Rates esophogeal pain at 8/10 today, worse to 10/10 w/ PO intake. Managing w/ magic m outhwash, carafate, fentanyl patch, and Dilaudid Note: here for labs and follow-up w/ [...] two days after chemotherapy. 40 tablet 0 bnrerxdzinZYZYB-vrbwhljtv-gkkaimid & magnesium hydroxide-simethicone (MAGIC MOUTHWASH) Take 5 [...] 6 hours as needed. 60 tablet 0 HYDROmorphone (DILAUDID) 2 mg tablet Take 1 tablet by mouth every 3 hours as needed for Pain. 60 tablet 0 lansoprazole (PREVACID) 30 mg [...] Objectives: Temp: 36.7 C (98 F) BP: 121/67 Pulse: 68 Resp: 16 SpO2: 96 % on Min/Max Temp past 24 hours:Temp Av.7 C (98 F) Min: 36.7 C (98 F) Max: 36.7 C (98 F) No intake or output data in the 24 hours ending 05/20/19 1506 Wt. Admission: Weight: 53.1 kg (117 lb 1 oz) Wt. Current: Weight: 53.1 kg (117 lb 1 oz) Wt Readings from Last 3 Encounters: 05/20/19 53.1 kg (117 lb 1 oz) 05/05/19 54 kg (119 lb 0.8 oz) 04/28/19 53 kg (116 lb 13.5 oz) Physical Exam: General: The patient is [...] in Am. J. Clin. Oncol.: Niranjan Lopez., Bernoica Walters., Renaldo Parish., Nico Avery, Yareli Tompkins., [...] SUSSY ALLRED "LENKA" ( ) as of 05/20/2019 14:51 Ref. Range 05/20/2019 09:14 WBC Latest Ref Range: 4.0 - 11.0 K/uL 4.8 RBC COUNT Latest Ref Range: 3.70 - 5.20 M/uL 2.98 (L) Hemoglobin Latest Ref Range: 11.5 - 16.0 g/dL 10.2 (L) Hematocrit Latest Ref Range: 34.0 - 47.0 % 30.8 (L) MCV Latest Ref Range: 83.0 - 101.0 fL 103.4 (H) MCH Latest Ref Range: 28.0 - 35.0 pg 34.2 MCHC Latest Ref Range: 32.0 - 36.0 g/dL 33.1 RDW-CV Latest Ref Range: <15.0 % 19.5 (H) RDW-SD Latest Ref Range: 35.1 - 46.3 fL 73.9 (H) Platelet Count Latest Ref Range: 140 - 440 K/uL 246 MPV Latest Ref Range: 6.5 - 12.4 fL 8.4 % nRBC Latest Ref Range: 0 - 2 per 100 WBCs 0 Absolute nRBC Latest Ref Range: 0.00 - 0.01 K/uL 0.00 Absolute Neutrophils Latest Ref Range: 1.80 - 8.50 K/uL 3.69 Absolute Lymphocytes Latest Ref Range: 0.60 - 3.20 K/uL 0.41 (L) Absolute Monocytes Latest Ref Range: 0.00 - 1.00 K/uL 0.55 Absolute Eosinophils Latest Ref Range: 0.00 - 0.40 K/uL 0.07 Absolute Basophils Latest Ref Range: 0.00 - 0.10 K/uL 0.03 Absolute Immature Granulocytes Latest Ref Range: 0.00 - 0.03 K/uL 0.02 % Neutrophils Latest Ref Range: 45.0 - 82.0 % 77.4 % Lymphocytes Latest Ref Range: 20.0 - 45.0 % 8.6 (L) % Monocytes Latest Ref Range: 4.0 - 12.0 % 11.5 % Eosinophils Latest Ref Range: 0.0 - 5.0 % 1.5 % Basophils Latest Ref Range: 0.0 - 1.0 % 0.6 % Immature Granulocytes Latest Ref Range: 0.0 - 0.4 % 0.4 Na Latest Ref Range: 136 - 145 mmol/L 135 (L) K Latest Ref Range: 3.4 - 5.1 mmol/L 3.7 Chloride Latest Ref Range: 98 - 107 mmol/L 102 Carbon dioxide Latest Ref Range: 20 - 31 mmol/L 26 Anion Gap Latest Ref Range: 3 - 16 mmol/L 7 Glucose Latest Ref Range: 60 - 106 mg/dL 104 BUN Latest Ref Range: 9 - 23 mg/dL 18 Creatinine Latest Ref Range: 0.55 - 1.02 mg/dL 0.79 BUN/Creatinine Ratio Unknown 22.8 Albumin Latest Ref Range: 3.2 - 4.8 g/dL 4.1 Albumin/Globulin Ratio Latest Ref Range: 0.8 - 1.9 1.7 Total Protein Latest Ref Range: 5.7 - 8.2 g/dL 6.5 EGFR IF NOT Latest Ref Range: >=60 mL/min/1.73m2 >60 Calcium Latest Ref Range: 8.7 - 10.4 mg/dL 9.3 ALK PHOS Latest Ref Range: 46 - 116 U/L 86 ALT (SGPT) (REF) Latest Ref Range: 10 - 49 U/L 10 AST (SGOT) (REF) Latest Ref Range: 0 - 34 U/L 23 Bilirubin Total (Calculated) Latest Ref Range: 0.3 - 1.2 mg/dL 0.4 Globulin Latest Ref Range: 2.1 - 3.8 g/dL 2.4 Pharmacovigilance: Palliative Care: Patient's Medications New Prescriptions No medications on file Modified Medications Modified Medication Previous Medication ALPRAZOLAM (XANAX) 0.5 MG TABLET ALPRAZolam (XANAX) 0.5 mg tablet Take 1 tablet by mouth nightly as needed (taking every night.). 0.5 mg nightly as ne eded (taking every night.). FENTANYL (DURAGESIC) 50 MCG/HR fentaNYL (DURAGESIC) 50 mcg/hr Place 1 patch onto the skin every [address]. [address] 1 patch onto the skin every 72 darian rs. HYDROCODONE-ACETAMINOPHEN (NORCO) 7.5-325 MG PER TABLET HYDROcodone-acetaminophen (NORCO) 7.5-325 mg per tablet Take 1-2 tablets by mouth every 6 hours as needed. Take 1-2 tablets by mouth every 6 hours as needed. HYDROMORPHONE (DILAUDID) 2 MG TABLET HYDROmorphone (DILAUDID) 2 mg tablet Take 1 tablet by mouth every 3 hours as needed for Pain. Take 1 tablet by mouth ever y 3 hours as needed for Pain. Discontinued Medications No medications on file Procedure: Boubacar Mata MD Portions of this chart may have been created with [employer] voice recognition software. Occasi onal wrong-word or sound-alike substitutions may have occurred due to the inherent tripathi itations of voice recognition software. Please read the chart carefully and recognize, using context, where these substitutions have occurred. documented in this encounter Miscellaneous Notes Assessment & Plan Note - Boubacar Mata MD - 05/20/2019 2:52 PM PDTAssociated Prob kati(s): Lung cancer (HCC)Sussy Allred returned to clinic alone on 05/20/2019 for follow u p, five weeks after completing combined modality adjuvant chemoradiation therapy for Stage I IIA adenocarcinoma of the left lung. 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 Review of systems is notable for left sided thorax pain and attacks of breathlessness, than seem to occur unpredictably. Voice remains hoarse. Clincal exam is notable for clear lung logan bilaterally. Laboratory exam is notable for grade 1 anemia, without leukopenia or thrombocytopenia. Assessment; Stage IIIA adenocarcinoma of the left lung, status post left upper lobe lobecto my, followed by adjuvant chemoradiation therapy. Malignant neoplasm related pain. Episodic dyspnea, consider diaphragmatic dysfunction following lung surgery. Situational anxiety. Plan; Schedule sniff test to exclude paralyzed diaphragm. Refill topical fentanyl, hydromorphone, [place] and alprazolam. Clinical and laboratory follow up and medication refills in one month. documented in this encounter Plan of Treatment [...] | | | | | [place] [address] | | | | | | [phone] | | | | | | | | +--------+ + + + + documented as of this encounter Procedures + +--------+ + + + | Procedure Name | Priori | Date/Time | Associated Diagnosis | Comments | | | ty | | | | + +--------+ + + + | CBC WITH | STAT | 05/20/2019 | Acute respiratory | Results for this | | DIFFERENTIAL | | 9:14 AM | distress syndrome | procedure are in the | | | | PDT | (ARDS) (HCC) | results section. | | | | | Malignant neoplasm | | | | | | of hilus of lung, | | | | | | unspecified | | | | | | laterality ([facility]) | | | | | | Postoperative anemia | | | | | | due to acute blood | | | | | | loss Anemia due to | | | | | | chemotherapy | | + +--------+ + + + | COMPREHENSIVE | STAT | 05/20/2019 | Acute respiratory | Results for this | | METABOLIC PANEL | | 9:14 AM | distress syndrome | procedure are [...] | | | | | | loss Anemia due to | | | | | | chemotherapy | | + +--------+ + + + [...] | | | + +---------+ + + Comprehensive Metabolic Panel (05/20/2019 9:14 AM PDT) + + + + + [...] + + + + | CO2 | 26 | 20 - 31 mmol/L | [facility] | | | | | [facility] | [facility] | | | | | | [facility]ORY | | + + + + + + | Anion Gap | 7 | 3 - 16 mmol/L | [facility] | | | | | | [facility] | | | [facility] | [facility] | [facility] - | | | | | | [facility] | | + + + + + + | Glucose | 104 | 60 - 106 mg/dL | [facility] | | | | | | [facility] | | | | | | [facility] | | | | | [facility] - | | | | | | LAB[facility]ATORY | | + + + + + + | BUN | 18 | 9 - 23 mg/dL | [facility] | | | | | | [facility] | | | | | [facility] | | | | | | [facility] - | | | | | | LABORATORY | | + + + + + + | Creatinine | 0.79 | 0.55 - 1.02 | [facility] | [...] | mL/min/1.73m2 | [facility] | | | [facility] | RATE,ESTIMATED | | [facility]ICAL | | | | mL/min/1.21n4Ozjn than | | CENTER - | | [...] 4.1 | 3.2 - 4.8 g/dL | [facility] | | | | | | ST. [...] + + + + | Total | 6.5 | 5.7 - 8.2 g/dL | [facility] [...] + + + + | ALT | 10 | 10 - 49 U/L | [facility] | | | | | | [facility] | [facility] | [facility] | | | | | [facility] - | | | | | | LABORATORY | | + + + + + + | Alkaline | 86 | 46 - 116 U/L | [facility] | | | Phosphatase | | | [facility] | | | | | | [facility] | | | | | | [facility] - | | | | | | LABORATORY | | + + + + + + | Globulin | 2.4 | 2.1 - 3.8 g/dL | [facility] [...] + + + + | BUN/Creatin | 22.8 | | [facility] | | | ine [...] [address] | [place] | [phone] | | [facility] | | [address] | | | - LABORATORY | | | | + + + + + CBC with Differential (05/20/2019 9:14 AM PDT) + + + + + + | Component | Value | Ref Range | Performed | Pathologist | | | | | At | Signature | + + + + + + | White Blood | 4.8 | 4.0 - 11.0 K/uL | [facility] | | | Cells | | | [facility] | | | | | | [facility] | | | | | | [facility] - | | | | | | LABORATORY | | + + + + + + | Red Blood | 2.98 (L) | 3.70 - 5.20 | [facility] [...] + + + + | Hematocrit | 30.8 (L) | 34.0 - 47.0 % | [facility] | | | | | | [facility] | | | | | | [facility] | | | | | | [facility] - | | | | | | LABORATORY | | + + + + + + | MCV | 103.4 (H) | 83.0 - 101.0 fL | [facility] | | | | | | [facility] | | | | | | [facility] | | | | | | [facility] - | | | | | | LABORATORY | | + + + + + + | MCH | 34.2 | 28.0 - 35.0 pg | [facility] | | | | | | [facility] | | | | | | [facility] | | | | | | [facility] - | | | | | | LABORATORY | | + + + + + + | MCHC | 33.1 | 32.0 - 36.0 | [facility] | | | | | g/dL | [facility] | | | | | | [facility] | | | | | | [facility] - | | | | | | LABORATORY | | + + + + + + | RDW-CV | 19.5 (H) | <15.0 % | [facility] | | | | | | [facility] | | [facility] | [facility] | | | | | | [facility] - | | | | | | LABORATORY | | + + + + + + | RDW-SD | 73.9 (H) | 35.1 - 46.3 fL | [facility] | | | | | | [facility] | | | | | | [facility] | | | | | | [facility] - | | | | | | LABORATORY | | + + + + + + | Platelet | 246 | 140 - 440 K/uL | [facility] [...] + + + + | % | 77.4 | 45.0 - 82.0 % | [facility] | | | Neutrophils | | | [facility] | | | | | | [facility] | | | | | | [facility] - | | | | | | LABORATORY | | + + + + + + | % | 8.6 (L) | 20.0 - 45.0 % | [facility] | | | Lymphocytes | | | [facility] | | | | | | [facility] | | | | | | [facility] - | | | | | | LABORATORY | | + + + + + + | % Monocytes | 11.5 | 4.0 - 12.0 % | [facility] | | | | | | [facility] | | | | | | [facility] | | | | | | [facility] - | | | | | | LABORATORY | | + + + + + + | % | 1.5 | 0.0 - 5.0 % | [facility] | | | Eosinophils | | | [facility] | | | | | | [facility] | | | | | | [facility] - | | | | | | LABORATORY | | + + + + + + | % Basophils | 0.6 | 0.0 - 1.0 % | [facility] [...] + + + + | Absolute | 3.69 | 1.80 - 8.50 | [facility] | | | Neutrophils | | K/uL | [facility] | | | | | | [facility] | | | | | | [facility] - | | | | | | LABORATORY | | + + + + + + | Absolute | 0.41 (L) | 0.60 - 3.20 | [facility] | | | Lymphocytes | | K/uL | [facility] | | | | | | [facility] | | | | | | [facility] - | | | | | | LABORATORY | | + + + + + + | Absolute | 0.55 | 0.00 - 1.00 | [facility] | | | Monocytes | | K/uL | [facility] | | | | | | [facility] | | | | | | [facility] - | | | | | | LABORATORY | | + + + + + + | Absolute | 0.07 | 0.00 - 0.40 | [facility] | | | Eosinophils | | K/uL | [facility] | | | | | | [facility] | | | | | | [facility] - | | | | | | LABORATORY | | + + + + + + | Absolute | 0.03 | 0.00 - 0.10 | [facility] | [...] | | Immature | | K/uL | [facility] | | | Granulocyte | | [...] ST. | [address] | [place] | [phone] | | [facility] | | [id number] | | | - LABORATORY | | [...] Acute posthemorrhagic anemia | + + | Anemia due to chemotherapy Antineoplastic chemotherapy induced anemia | + + | Cervicalgia | + + | Hypophosphatemia Disorders of phosphorus metabolism | + + | Pain medication agreement signed Encounter for long-term (current) use of other | | medications | + + documented in this encounter
--- OUTSIDE RECORDS SUMMARY | ~2020-03-30 | XMS | Encounter Summary ---
Demographics + + + | Address | [address] | | | [place] [address] | + + + | Home Phone [...] Team Providers + +------+ + | Care Crater And Packer Name | Role | Phone | [...] + + | 12/04/ | Hospital | [facility] [address] | Manoj Kumar MD | | | 2019 - | Encounter | [place] [id number] | [address] | | | | | [facility] | [facility] | | | 12/14/ | | [place] | [place] | | | 2019 | | [address] | [address] | | | | | [phone] | [phone] | | | | | | | [...] Discharge Medications: Sussy Allred Home Medication Instructions ABRAHAN:[id number] Printed on:12/13/18 6140 Medication Information acetaminophen 325 mg oral tablet [...] be sent through Care Everywhere.Lung Resection: Post-op (Albanian)Mediastinoscopy: Pre-op (Albanian)documented in this encounter Medications at Time of [...] PM PDTLeft chest tube removed. Keena Falcon CCC-SAFETY SECURITY OFFICER - 12/13/2018 8:11 AM PDT ENT SPEECH [...] or concerns about eating, drinking. [facility] Ate steelhead, veggies, rice and mandarin [...] Voice clear, breathing comfortably. No further acute SAFETY SECURITY OFFICER needs. PLAN: 1. ADAT back to regular diet. Pills by mouth okay - in liquids or purees as she wishes. -Aspiration precautions - upright with all PO, single small bites/sips, one bite/sip at a time -L head-turn + chin-tuck is fine if patient finds it helpful with liquids 2. TFs have been discontinued 3. ENT SAFETY SECURITY OFFICER will sign-off. Patient can follow-up with us as outpatient in clinic with Dr. Jose arce as needed. Keena Myles MS, CCC-SAFETY SECURITY OFFICER Speech-Language Pathologist [facility] Dept. of Otolaryngology, [address] [place] [address] Pager: [phone] Terri Skaggs MD - 12/13/2018 7:11 AM [...] mechanical soft diet. Tube feeds off. Plan (vtfh-kj-ebriusfu issues): - Aspiration pneumonitis: Resolved - Hypophosphatemia: [...] Stacy Quevedo MD Cardiothoracic Surgery Fellow Pager: [phone] Keena Falcon, [facility]- SAFETY SECURITY OFFICER - 12/12/2018 12:22 PM PDT ENT SPEECH [...] resident on- call. Recommend diet upgrade to [facility] soft and any liquids for more [...] of TFs to promote appetite 3. ENT SAFETY SECURITY OFFICER will continue to follow. Please page [phone] as needed. Keena Myles MS, CCC-SAFETY SECURITY OFFICER Speech-Language Pathologist [facility] Dept. of Otolaryngology, [address] [place] [address] Pager: [phone] Sharifa YBARRA, Terri ramirez - 12/12/2018 7:53 [...] a PEG tube for nutri tion. Plan (aocq-yb-mjxeyftj issues): - Aspiration pneumonitis: Productive sputum, augmentin [...] Stacy Quevedo MD Cardiothoracic Surgery Fellow Pager: [phone] oKeena lopez, CCC- SAFETY SECURITY OFFICER - 12/11/2018 2:44 PM PDT ENT SPEECH [...] re: decrease or discontinue TFs 3. ENT SAFETY SECURITY OFFICER will follow-up on morning. Please page [phone] as needed. Keena Myles MS, CCC-SAFETY SECURITY OFFICER Speech-Language Pathologist [facility] Dept. of Otolaryngology, [address] [place] [address] Pager: [phone] Taye Falcon CCC-SAFETY SECURITY OFFICER - 12/11/2018 10:26 AM PDT ENT SPEECH [...] to improve and tolerate PO. 4. ENT SAFETY SECURITY OFFICER [place] [phone] or [phone] any time with questions or concer ns. Keena Myles, MS, CCC-SAFETY SECURITY OFFICER Speech-Language Pathologist [facility] Dept. of Otolaryngology, [address] [place] [place] [address] Pager: [phone] Sharifa YBARRA, Terri ramirez - 12/11/2018 8:24 [...] PEG tube and stric t NPO. Plan (muhk-mh-jhhihieh issues): - Aspiration pneumonitis: Productive sputum, augmentin [...] Stacy Quevedo MD Cardiothoracic Surgery Fellow Pager: [phone] Meggan Howe SLP - 4:21 PM PDTINPATIENT ENT SPEECH PROGRESS NOTE: Order received, chart reviewed. Patient with history of "large volume aspiration", even un clear. Recommend objective swallow evaluation in Radiology Sunday, 12/11 prior to initiat ion of p.o. Intake. Recommend: NPO, all nutrition/hydration/medication via PEG Plan: MBS Sunday. Meggan Downs, Ph.D., [facility]-SAFETY SECURITY OFFICER Forest Manager Director, [facility]ing Otolaryngology, Head and Neck Surgery [facility] [phone] Augustine Roa MD - 12/10/2018 9:51 AM PDT PATIENT NAME: Sussy Allred [facility] MR#: [id number] : 1950 PRIMARY CARE PROVIDER: MALLIKA Tol[place] [...] Intake/Output Summary (Last 24 hours) at 12/10/18 0929 Last data filed at 12/10/18 0552 Gross per 24 hour Intake 2132 ml [...] Dr. Jose da silva. Augustine Nolan M.D. Forest Manager Laryngology and Head & Neck SurgeryElectronically signed [...] PEG tube and stric t NPO. Plan (hmua-bk-wmdiarib issues): - Aspiration pneumonitis: Productive sputum, augmentin [...] Stacy Quevedo MD Cardiothoracic Surgery Fellow Pager: [phone] Kiya Stovall MD,PhD - 12/09/2018 2:43 PM [...] removal. APS will sign off, please page [phone] if there are questions or concerns. APS happy to repla ce epidural in future if primary team and patient think it is needed. Kiya Santos MD Pager [phone] Department of Anesthesiology and Perioperative Medicine Chronic [...] PEG tube and stric t NPO. 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 24 Hour events - [...] dysphagia. - Strict NPO, consider re consulting SAFETY SECURITY OFFICER today pending course and ENT recs - [...] 12/07 - Strict NPO - ENT performed PET COUNSELOR scope with evidence of left vocal cord [...] Manoj Kumar MD Admitting Provider Cardiothoracic Surgery 73540 Quality section FAST HUG Feeding: Tube Feeds [...] the recent imaging availabl e. CARMELO Riggins [facility] DEPARTMENT: [facility] ICU CARDIAC Place of Service:- Inpatient CSN: [id number] Suggested Modifier: None Suggested CPT: TO CHICLE GRINDER FEEDER Author:CARMELO iRggins [address] [address]Ryehrrklgwyoua signed by CARMELO Riggins at 12/09/2018 11:2 [...] Hamm MD Anesthesiology PGY1 APS Team Pager [phone] Associated attestation - Kiya Cedillo MD,PhD - 12/09/2018 4:57 PM PDTI saw and evaluated patient Ms. Sussy Allred with Resident: Dr. Hamm. I reviewed all details o f Ms. Sussy Allred s epidural block management. I have reviewed the resident s note and I agree with the plan of care as documented. I do not have additional comments. Kiya Santos MD,PhDBluffton Hospital, MALLIKA Collins-Frances - 12/08/2018 6:40 PM PDTFormatting of this no te might be different from the original. 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 Given her likely long-term [...] 12/07 - Strict NPO - ENT performed PET COUNSELOR scope with evidence of left vocal cord [...] Manoj Kumar MD Admitting Provider Cardiothoracic Surgery 12145 Jama Zhao MD ICU PM Attending Anesthesiology 02890 Quality section FAST HUG Feeding: Tube Feeds: [...] e. 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 Given her likely long-term [...] Manoj Kumar MD Admitting Provider Cardiothoracic Surgery 32592 Jama Zhao MD ICU PM Attending Anesthesiology 15301 Code Status Code Status Full Code Quality section I have spent a total of 38 minutes in the direct care and management of this patient indepe ndent of any time spent teaching or performing any separately billable procedures. I reviewe d the documented findings, all data and the recent imaging available. Seen with PA/PET COUNSELOR myah . Please see their note for details. I reviewed the documented findings, all data and the re cent imaging available. Dennis Myrick MD Author:Dennis Myrick MD [address] [address]Imwyjzajsjphzi signed by Dennis Myrick MD at 12/08/2018 [...] Pain Service [facility] Pager#: [phone] Email: [email or web address].Concha Alcocer MD - 12/08/2018 8:25 AM PDT [...] post-procedure ye day, which is reassuring. Plan (ietm-cx-btryxyku issues): - Aspiration pneumonitis: strict NPO, aggressive [...] - Discuss with MD Coreen Farley MD [facility] General Surgery Pager #[phone] ariana Allred PA-C - 12/08/2018 5:02 AM PDTFormatting of this note might be different from the or iginal. 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 Given her likely long-term [...] Manoj Kumar MD Admitting Provider Cardiothoracic Surgery 59808 Jama Zhao MD ICU PM Attending Anesthesiology 45434 Code Status Code Status Full Code This [...] and the recent imaging available. Seen with PA/PET COUNSELOR Chalino. Please see their note for details. I reviewed the documented findings, all data and the rec ent imaging available. 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 Given her likely long-term need fo r tube feeding given her dysphagia, EGS consulted and plans for PEG. Patient's ICU course co mplicated by hypertension (required phenylephrine now weaned off) and high volume aspiration event with hypoxia requiring HFNC 20L. Remains hemodynamically stable. 24 Hour events - Strict NPO with concern for high volume aspiration, SAFETY SECURITY OFFICER signed off for now - Overnight worsening [...] event - Strict NPO - ENT performed PET COUNSELOR scope with evidence of left vocal cord [...] Manoj Kumar MD Admitting Provider Cardiothoracic Surgery 81845 Jama Zhao MD ICU PM Attending Anesthesiology 27050 Quality section FAST HUG Feeding: NPO Analgesia: Epidural (HM-bupiv), rectal tylenol, lido patches Sedation: None Thromboprophylaxis: Lovenox Head of Bed: Head of Bed >30 degrees Ulcer Prophylaxis: Famotidine Glycemic Control: insulin sliding Created by Sonya Barron MD Author:Sonya Barron MD [address] [address] [place] [address]Wqphjfpilaxzbr signed by Dennis Myrick MD at 12/07/2018 1:48 PM Dennis Good MD - 12/07/2018 10:19 AM PDTFormatting of this note might be differen t from the original. Cardiovascular Intensive Care Unit Attending Progress Note CVICU D2 Assigned #[id number] ICU Admission Reason Most Recent Value ICU [...] Manoj Kumar MD Admitting Provider Cardiothoracic Surgery 30023 Jama Zhao MD ICU PM Attending Anesthesiology 65566 Code Status Code Status Full Code I [...] ICU CARDIAC Place of Service:- Inpatient CSN: [id number] Suggested Modifier: GC - Resident Involved Suggested CPT: TO CHICLE GRINDER FEEDER Dennis Myrick MD Author:Dennis Myrick MD [address] [id number] signed by Dennis Myrick MD at 12/07/2018 [...] strict NPO yesterday with concern for aspiration, SAFETY SECURITY OFFICER signed off for now - overnight worsening [...] he risk of prolonged intubation post-anesthesia. Plan (shao-kl-cqypvevg issues): - Aspiration pneumonitis: strict NPO, aggressive [...] and discussed with Dr. Chaya Kim MD [facility] General Surgery Pager #[phone] Gayle Mayfield - 12/07/2018 9:21 AM PDTTransthoracic echocardiogram completed. Final report to suzy montague. Dennis Duvall PA-C - 12/07/2018 5:34 AM PDT Cardiovascular Intensive Care Unit Clinical Update Note Team: D2 Team Pager: [phone] Attending: Cece Pt Name: Sussy Allred ID: [...] General Surgery, PGY-3 EGS consult resident pager: [phone] Associated attestation - Derrick Handley MD - 12/08/2018 10:17 AM PDTATTENDING ADDENDUM I saw and examined Sussy Allred with the residents on 12/07 and agree with the assessmen t and plan as outlined in this note and participated in the planning of care. Derrick Handley MD FACS log data technician Division of Trauma, Critical Care, and Acute Care Surgery [id number] Dennis Myrick MD - 12/06/2018 11:01 AM PDTFormatting of this note might be different f rom the original. 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 Has requested surgical feeding tube [...] Manoj Kumar MD Admitting Provider Cardiothoracic Surgery [address] [place] necessity reviewed: Plan to DC today I [...] ICU CARDIAC Place of Service:- Inpatient CSN: [id number] Suggested Modifier: GC - Resident Involved Suggested CPT: TO CHICLE GRINDER FEEDER Dennis Myrick MD Author:Dennis Myrick MD [address] [id number] signed by Dennis Myrick MD at 12/06/2018 [...] Stacy Quevedo MD Cardiothoracic Surgery Fellow Pager: [phone] Sonya Li MD - 11/18 7:50 AM PDT Cardiovascular Intensive Care Unit Team Progress Note CVICU D2 Assigned #[id number] ICU Admission Reason Most Recent Value ICU Admission reason post-op management filed at 12/04/2018 5847 Documentation Date Row Name 12/04/18 1534 Day [...] DHT vs eventual Gtube - ENT performed PET COUNSELOR scope with evidence of left vocal cord [...] Manoj Kumar MD Admitting Provider Cardiothoracic Surgery 98546 Quality section A-Line necessity reviewed: Plan to DC today Doty necessity reviewed: Plan to DC today FAST HUG Feeding: NPO Analgesia: epidural, Tylenol, lidocaine patches Sedation: None Thromboprophylaxis: Lovenox Head of Bed: Head of Bed >30 degrees Ulcer Prophylaxis: Famotidine Glycemic Control: insulin sliding Created by Sonya Barron MD Author:Sonya Barron MD [facility] [address] [place] [address]Nycgyddpvbxhbt signed by Dennis Myrick MD at 12/06/2018 [...] revealed minimally mobile LEFT true vocal cord. SAFETY SECURITY OFFICER evaluation with concern for ri sk of [...] Flores MD Anesthesiology/CCM Fellow APS Team Pager [phone] Associated attestation - Louie Moura MD - 12/07/2018 2:59 PM PDTI saw and evaluated mallika Allred with trainee: Dr. Flores . I have reviewed the trainee's note and I agree with the plan of care as documented. Louie Moura MD Adult Acute Pain Service [facility] Pager#: [phone] Email: [email or web address].Dennis Park PA-C - 12/05/2018 9:06 PM PDTFormatting of this note mi ght be different from the original. Cardiovascular Intensive Care Unit Clinical Update Note Team: D2 Team Pager: [phone] Attending: Layla Pt Name: Sussy Allred ID: Abbreviated HPI Update: 1. Hypotension a. Impoved 12/05/2018 after 2L crystalloid b. UO improved with IVF 2. Recurret Laryngeal nerve a. ENT Eval complete b. Pending re eval by SAFETY SECURITY OFFICER for swallow this sim S: Pain, drowsy [...] Unit Team Progress Note CVICU D2 Assigned #[id number] ICU Admission Reason Most Recent Value ICU [...] levothyroxine 50mcg PO DAILY after clear by SAFETY SECURITY OFFICER Cardiovascular HTN (hypertension) Unknown Current Assessment & [...] - restart PO PPI when clear by SAFETY SECURITY OFFICER At risk for Dysphagia Unknown Current Assessment [...] Manoj Kumar MD Admitting Provider Cardiothoracic Surgery 74599 Quality section A-Line necessity reviewed: Ykgx-dm-dsgu blood pressure monitoring Doty necessity reviewed: Hourly/Accurate measurement of urinary output for clinical manage ment of critically ill patients FAST HUG Feeding: NPO Analgesia: Tylenol, epidural (bupiv-fent) Sedation: None Thromboprophylaxis: SCDs Head of Bed: Head of Bed >30 degrees Ulcer Prophylaxis: Famotidine Glycemic Control: insulin sliding Created by Sonya Barron MD Author:Sonya Barron MD [address] [address]Koaawszaftjkps signed by Dennis Myrick MD at 12/06/2018 7:16 AM Ava Abraham, CF-SAFETY SECURITY OFFICER - 12/05/2018 10:00 AM PDTENT SPEECH PATHOLOGY-INPATIENT [...] HISTORY: she is single and lives in [place], [place] DIETARY STATUS: Current diet: The patient [...] afternoon when less lethargic/sedate. Ava Allred M.S., CF-SAFETY SECURITY OFFICER Speech-Language Pathology Fellow [facility] [phone] Pager: [phone] Dennis Good MD - 12/05/2018 8:57 AM PDT Cardiovascular Intensive Care Unit Attending Progress Note CVICU D2 Assigned #[id number] ICU Admission Reason Most Recent Value ICU [...] Manoj Kumar MD Admitting Provider Cardiothoracic Surgery 40196 Code Status Code Status Full Code Quality section A-Line necessity reviewed: Cgmw-us-vjaw blood pressure monitoring Doty necessity reviewed: Acute [...] ICU CARDIAC Place of Service:- Inpatient CSN: [id number] Suggested Modifier: GC - Resident Involved Suggested CPT: TO CHICLE GRINDER FEEDER Dennis Myrick MD Author:Dennis Myrick MD [address] [address]Tkdzzkscvhiirt signed by Dennis Myrick MD at 12/05/2018 [...] Flores MD Anesthesiology/CCM Fellow APS Team Pager [phone] Associated attestation - Kiya Cedillo MD,PhD - [...] Stacy Quevedo MD Cardiothoracic Surgery Fellow Pager: [phone] ennis Allred PA-C - 3:00 AM PDT Cardiovascular Intensive Care Unit Clinical Update Note Team: D2 Team Pager: [phone] Attending: Layla Pt Name: Sussy Allred ID: [...] - restart PO PPI when clear by SAFETY SECURITY OFFICER Hypothyroidism 12/04/2018 Assessment & Plan Note: - restart home levothyroxine 50mcg PO DAILY after clear by SAFETY SECURITY OFFICER Acute post-operative pain 12/04/2018 Assessment & Plan [...] bilateral ATTENDING PHYSICIAN: Hellen Herman MD MANAGER ORGANIZATIONAL: Jamey Flores MD, Manda Hamm MD ANESTHESIA: [...] procedure. MD Jamey Boss M.D. Assisted our buyer internship. I saw and evaluated patient Ms. [...] | | 2019 | Visit | | [address] | | | | | | [place] [facility], | | | | | | [place] [address] | | | | | | [phone] | | | | | | | | +--------+---------+ + + + | 04/30/ | Office | Otolaryngology | Augustine Nolan | | | 2020 | Visit | | MD Debbie [address] [facility] | | | | | | [address] | | | | | | [place], [place] | | | | | | [address] | | | | | | [phone] | | | | | | | [...] + +--------+ + + + | TO CHICLE GRINDER FEEDER | Routin | 12/05/2018 | | Results [...] + + | [facility] | [address] | [place], [place] | | | [facility] | [address] | [address] | | | TESTS | | | [...] necessary, edited the report. I agree with [facility] report as now presented. | | | |Final signature: Jennifer Haider MD 12/13/2018 5:26 PM | |Preliminary: Jennifer Haider MD | |Dictation initiated: Jennifre Haider MD 12/13/2018 5:25 PM | + [...] - [facility] | [address] | [place], [place] | | | [facility] | [address] | [address] | | | TESTS | | | | + + + + + X-RAY PORTABLE CHEST 1 VIEW (12/13/2018 8:24 AM PDT) + + | Specimen | + + | | + + + + + | Narrative | Performed At | + + + | EXAM: TX CHEST 1 VIEW HISTORY: eval interval change. [...] Interface - 12/13/2018 9:47 AM PDT EXAM: TX CHEST 1 | | VIEW HISTORY: eval [...] [facility] | [address] | [place], [place] | | | [facility] | [address] | [address] | | | TESTS | | | [...] [facility] | [address] | [place], [place] | | | [facility] | [address] | [address] | | | TESTS | | | [...] | MD Sae Cardiothoracic Surgery Fellow Pager: [phone] | | + + + CAPILLARY BLOOD [...] [facility] | [address] | [place], [place] | | | [facility] | [address] | [address] | | | TESTS | | | [...] [facility] | [address] | [place], [place] | | | [facility] | [address] | [address] | | | TESTS | | | [...] [facility] | [address] | [place], [place] | | | [facility] | [address] | [address] | | | TESTS | | | [...] [facility] | [address] | [place], [place] | | | [place] | [address] | [address] | | | TESTS | | | [...] [facility] | [address] | [place], [place] | | | [facility] | [facility] | [address] | | | TESTS | | | [...] [facility] | [address] | [place], [place] | | | [facility] | [address] | [address] | | | TESTS | | | [...] [facility] | [address] | [place] [address] | | | SERVICES, CORE | PARK [...] + + | [facility] | [address] | [place] [address] | | | SERVICES, CORE | E[place]IO [...] | | | LABORATORY | | | [place] | | | SERVICES, | | | [...] + + | [facility] | [address] | [place] [address] | | | SERVICES, CORE | EULALIO [...] [facility] | [address] | [place], [place] | | | [facility] | [address] | [address] | | | TESTS | | | [...] [facility] | [address] | [place], [place] | | | [facility] | [facility] | [address] | | | TESTS | | | [...] (H) | 60 - 99 mg/dL | [facility] - | | | GLUCOSE, [...] [facility] | [address] | [place], [place] | | | [facility]ARE | [address] | [address] | | | TESTS | | | [...] [facility] | [address] | [place] [address] | | | SERVICES, CORE | PARK [...] | + + + + + | [facility] [place] | [address] | [place] [address] | | | SERVICES, CORE | EULALIO [...] | | | LABORATORY | | | [place] | | | SERVICES, | | | [...] + + | [facility] [place] | [address] | [place] [address] | | | SERVICES, KOKI | EULALIO [...] [facility] | [address] | [place] [address] | | | SERVICES, CORE | PARK [...] | | | LABORATORY | | | [place] | | | SERVICES, | | | [...] the MDRD equation recommended by the | [facility] | | National Kidney Disease Education Program. [...] [facility] | [address] | [place] [address] | | | SERVICES, CORE | PARK [...] [facility] | [address] | [place] [address] | | | SERVICES, KOKI | PARK [...] [facility] | [address] | [place] [address] | | | SERVICES, CORE | EULALIO [...] [facility] | [address] | [place] [address] | | | KOKI STUART | [facility] [place] | | | + + + + + X-RAY PORTABLE CHEST 1 VIEW (12/09/2018 5:41 AM PDT) + + | Specimen | + + | | + + + + + | Narrative | Performed At | + + + | EXAM: TX CHEST 1 VIEW HISTORY: Shortness of breath. [...] AM Preliminary: Parmjit | | | MD Shawn Dictation initiated: Parmjit Escobar MD | | | 12/09/2018 7:42 AM | | + + + + + | Procedure Note | + + | 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, Radiant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 - 12/09/2018 7:45 AM PDT EXAM: TX CHEST 1 | | VIEW HISTORY: Shortness [...] [facility] | [address] | [place] [address] | | | KOKI STUART | [address] [...] | | | LABORATORY | | | [place] | | | SERVICES, | | | [...] + + | [facility] [place] | [address] | [place] [address] | | | SERVICES, CORE | EULALIO [...] [facility] | [address] | [place], [place] | | | MARISSA JULIAN OF CARE | [facility] | [address] | | | TESTS | | | [...] [facility] | [address] | [place] [address] | | | SERVICES, CORE | EULALIO [...] | | | LABORATORY | | | [place] | | | SERVICES, | | | [...] [facility] | [address] | [place] [address] | | | SERVICES, CORE | PARK [...] | | | LABORATORY | | | [place] | | | SERVICES, | | | [...] [facility] | [address] | [place] [address] | | | KOKI STUART | [address] | | | + + + + + X-RAY PORTABLE CHEST 1 VIEW (12/08/2018 4:58 AM PDT) + + | Specimen | + + | | + + + + + | Narrative | Performed At | + + + | EXAM: TX CHEST 1 VIEW HISTORY: SoB COMPARISON: Chest [...] Interface - 12/08/2018 10:59 AM PDT EXAM: TX CHEST 1 | | VIEW HISTORY: SoB [...] + + | [facility] | [address] | [place] [address] | | | SERVICES, CORE | EULALIO [...] | | | LABORATORY | | | [place] | | | SERVICES, | | | [...] [facility] | [address] | [place] [address] | | | SERVICES, CORE | PARK [...] + + | [facility] | [address] | [place] [address] | | | [facility] | [address] | | | + + + [...] MD [facility] [address] [facility] | | | [place] [address] | | + + + PROCEDURE NOTE [...] | | | attempt. Midline lot number [id number]; there was excellent blood | | | [...] + + | Performing | Address | City/State/[facility] | Phone Number | | Organization | [...] Performed At | + ----+ + | [facility] | [facility]PT [facility] | | [facility] [address] CARDIOLOGY | | [place], [place] [address] Ph: | | | Pt Name: SUSSY ALLRED | | | Study Date/Time 12/07/2018 / 8:45:36 AMMRN: [id number] | | | Most recent prior: 11/26/2018Acc #: [id number] | | | No. previous echos: 1DOB: 1950 68 years Heart | | | Rate: 88 bpmHeight: 64.0 in Blood | | | Pressure: 104/64 mm/HgWeight: 145.0 lb | | | Gender: FBSA: 1.71 m | | | Order ID: [id number] Study | | | [facility] Gayle Michael RCSSonographer 2:Referring | | | [...] Report | | | electronically signed by: [id number] Kathleen Sam MD (12/07/2018, | | | [...] | | | |Report electronically signed by: [id number] Kathleen Sam MD (12/07/2018, 4:42:18 PM) | | | | | | | | | | | | Final | | + ----+ + + + | Procedure Note | + + | Interface, Cardiology Results - 12/07/2018 4:42 PM PDT [facility] | | [facility] [address] [place] [address] | | [place], [place] [address] Pt Name: SUSSY REEVES | | CHALINO Study Date/Time 12/07/2018 / 8:45:36 AMMRN: [id number] Most | | recent prior: 11/26/2018Acc #: [id number] No. previous echos: 1DOB: | | 1950 68 years Heart Rate: 88 bpmHeight: 64.0 in Blood | | Pressure: 104/64 mm/HgWeight: 145.0 lb Gender: FBSA: | | 1.71 m | | Order ID: [id number] Study [facility] [place] | | [facility] HospitalSon[facility] 2:Referring Provider: Dennis AllredModalities Performed: 2D, [...] and indexed values Report electronically signed by: [id number] | | Kathleen Sam MD (12/07/2018, 4:42:18 [...] | | | |Report electronically signed by: [id number] Kathleen Sam MD (12/07/2018, 4:42:18 PM) | | | | | | | | Final | + + + + + + + | Performing | Address | City/State/Zipcode | Phone Number | | Organization | | | | + + + + + | [facility] | [address] | [place], [place] | | | CARDIOLOGY | [address] | [address] | | + + + + + X-RAY PORTABLE CHEST 1 VIEW (12/07/2018 5:56 AM PDT) + + | Specimen | + + | | + + + + + | Narrative | Performed At | + + + | EXAM: TX CHEST 1 VIEW HISTORY: SoB COMPARISON: Chest [...] Interface - 12/07/2018 12:19 PM PDT EXAM: TX CHEST 1 | | VIEW HISTORY: SoB [...] [facility] | [address] | [place] [address] | | | SERVICES, CORE | PARK [...] [facility] | [address] | [place] [address] | | | SERVICES, CORE | PARK [...] | | | LABORATORY | | | [place] | | | SERVICES, | | | [...] the MDRD equation recommended by the | [facility] | | National Kidney Disease Education Program. [...] + + | [facility] | [address] | [place] [address] | | | SERVICES, CORE | EULALIO [...] [facility] | [address] | [place] [address] | | | SERVICES, CORE | PARK [...] + + | [facility] | [address] | [place] [address] | | | SERVICES, KOKI | PARK [...] | | | LABORATORY | | | [place] | | | SERVICES, | | | [...] + | [facility] | [address] | [place] [address] | | | SERVICES, CORE | [address] | | | + + + + + X-RAY PORTABLE CHEST 1 VIEW (12/06/2018 6:10 AM PDT) + + | Specimen | + + | | + + + + + | Narrative | Performed At | + + + | EXAM: TX CHEST 1 VIEW HISTORY: SoB COMPARISON: Yesterday [...] Interface - 12/06/2018 8:38 AM PDT EXAM: TX CHEST 1 | | VIEW HISTORY: SoB [...] + + | [facility] | [address] | [place] [address] | | | [facility] | [address] | | | + [...] Images archived to | | | institution mapping pilot | | + + + X-RAY PORTABLE CHEST 1 VIEW (12/05/2018 5:59 AM PDT) + + | Specimen | + + | | + + + + + | Narrative | Performed At | + + + | EXAM: TX CHEST 1 VIEW HISTORY: post left thoracotomy, [...] Interface - 12/05/2018 9:53 AM PDT EXAM: TX CHEST 1 | | VIEW HISTORY: post [...] Radial Catheter size: 3 | | | mauritanian x 5 cm Number of attempts: 3 [...] [facility] | [address] | [place] [address] | | | SERVICES, CORE | PARK [...] [facility] | [address] | [place] [address] | | | SERVICES, CORE | PARK [...] | | | LABORATORY | | | [place] | | | SERVICES, | | | [...] + + | [facility] | [address] | [place] [address] | | | [facility] | [address] | | | + + + + + X-RAY PORTABLE CHEST 1 VIEW (12/04/2018 6:32 PM PDT) + + | Specimen | + + | | + + + + + | Narrative | Performed At | + + + | EXAM: TX CHEST 1 VIEW HISTORY: Status post left VATS, left | [facility] | | thoracotomy, left upper [...] Interface - 12/05/2018 9:54 AM PDT EXAM: TX CHEST 1 | | VIEW HISTORY: Status [...] [facility] | [address] | [place] [address] | | | SERVICES, CORE | PARK [...] [facility] | [address] | [place] [address] | | | SERVICES, CORE | PARK [...] | | | LABORATORY | | | [place] | | | SERVICES, | | | [...] [facility] | [address] | [place] [address] | | | SERVICES, CORE | EULALIO [...] + + + | [facility] | [address] [address] [address] | [place], [place] | | | MAKAWELI GOLCONDA OF [facility] | [address] | [address] | | | TESTS | | | | + + + + + OPERATION RECORD (12/04/2018 4:05 PM PDT) + + | Procedure Note | + + | Manoj Kumar MD - 12/04/2018 4:05 PM PDT Date of Service: 12/04/2018 Attending | | Surgeon:Manoj Kumar MD Design Checker(s):Pritesh Chang | | Bethel Quevedo MD Preoperative [...] ribs were reapproximated using | | multiple mmawjr-md-ayjtk #2 Vicryl sutures. Serratus closed with #1 Vicryl, | | subcutaneous tissue closed with 2-0 Vicryl, skin closed with 4-0 Vicryl. Sterile | | dressings were applied. A single 28-Colombian chest tube was placed through the inferior [...] 12/04/2018 15:15:41DT: 12/04/2018 16:05:12Job #: | | [id number] | + + CAPILLARY BLOOD GLUCOSE (NO [...] - [facility] | [address] | [place], [place] | | | MARISSA JULIAN OF CARE | [address] | [address] | | | TESTS | | | [...] [facility] | [address] | [place], [place] | | | IESHA POINT OF CARE | [address] | [address] | | | TESTS | | | [...] [facility] | [address] | [place], [place] | | | MARISSA JULIAN OF CHE | [facility] | [address] | | | TESTS | | | [...] | | | | | | MARISSA JULINA | | | | | | OF [...] [facility] | [address] | [place], [place] | | | MARISSA JULIAN OF CARE | [address] | [address] | | | TESTS | | | [...] edition): | | | | | | [id number]: The | | | | | | [...] | | | | | | [facility] | | | | | | [...] number | | | | | | [id number]. Lymph node, | | | | | [...] surfaces. | | | | | | Mushroom Growing Supervisor sections | | | | | | [...] | | | | | | density, insurance representative | | | | | | [...] mass. | | | | | | Mushroom Growing Supervisor sections | | | | | | [...] | | | | | | from J6S1-C8: 3.2 cm | | | | | [...] mass, | | | | | | insurance representative sections, | | | | | | to include relationship | | | | | | with pleura in | | | | | | [id number]: Subpleural | | | | | | induration, | | | | | | insurance representative | | | | | | [id number]: Uninvolved | | | | | | parenchyma, | | | | | | insurance representative | | | | | | [id number]: 1 density | | | | | | suggestive of lymph | | | | | | node, [id number]: 1 | | | | | | [...] PathologistPathology, | | | | | | [facility] | | | | [...] PathologistPathology, | | | | | | [facility] | | | | [...] PathologistPathology, | | | | | | [facility] | | | | | | UniversityFrozen section | | | | | | diagnosis: C1. Lymph | | | | | | node. additional level | | | | | | 7: Negative for | | | | | | malignancy (0/1)Frozen | | | | | | section pathologist(s): | | | | | | Raiv Whitney MD PhD | | | | | | | | | | | | PathologistPathology, | | | | | | [facility] | | | | [...] PathologistPathology, | | | | | | [facility] | | | | [...] PathologistPathology, | | | | | | [facility] | | | | [...] PathologistPathology, | | | | | | [facility] | | | | [...] PathologistPathology, | | | | | | [facility] | | | | [...] PathologistPathology, | | | | | | [facility] | | | | [...] PathologistPathology, | | | | | | [facility] | | | | [...] PathologistPathology, | | | | | | [facility] | | | | [...] PathologistPathology, | | | | | | [facility] | | | | [...] PathologyLeighann | | | | | | [place] that point | | | | + [...] | + + + + + | [facility] | [address] | [place] [address] | | | PATHOLOGY | [address] [...] | | | SERVICES, | signed by [facility] | | | | | [facility] | Christiano Ta MD on | [...] case | | | | | | ([id number])]. No | | | | | | definite carcinoma cells | | | | | | seen are seen in this | | | | | | sampling, however see | | | | | | case [id number]. Case | | | | | | [...] PathologistPathology, | | | | | | [facility] | | | | | | [...] | | | | | | [facility] | | | | | | [...] | + + + + + | [facility] | [address] | [place] [address] | | | [facility] | | | [facility] | | | | + + + + + | [facility] DEPARTMENT | [address] | [place] [address] | | | PATHOLOGY | [address] [...] 92 | 60 - 99 mg/dL | [facility] - | | | GLUCOSE, [...] + + + | [facility] | [address] | [place], [place] | | | IESHA POINT OF [facility] | [address] | [address] | | | TESTS | | | [...] | | | HOURS, First dose on [facility] 12/12/18 | | AM PDT | | [...] PDT | | | | | dose, [facility] 12/05/18 at 0115 | | | | [...] | | | | | modification) on [facility] 12/12/18 at | | | | | | | 2100, Last dose on [facility] 12/14/18 at | | | | | [...] | | | | | modification) on [facility] 4/25/19 at | | | | | [...] 4:24 | | | | | dose, [place] 12/08/18 at 1645 | | PM PDT [...] | | | | | PRN, Starting [facility] 12/05/18 at | | AM PDT | [...] TWICE DAILY NEEDED, | | | Starting [facility] 12/12/18 at 1241, | | | Until 12/14/18 at 1814, | | | constipation | | + +---+ | | | + +---+ + +---------+ +--------+---+---+ | sodium chloride 0.9 % (NS) IV | New Bag | 12/06/19 | 500 mL | | | | infusion 500 mL, intravenous, | | 19 3:00 | | | | | ONCE, 1 dose, [facility] 12/05/18 at 0345 | | AM PDT [...]
--- OUTSIDE RECORDS SUMMARY | ~2020-03-30 | XMS | Encounter Summary ---
Demographics + + + | Address | [address] | | | [place] [address] | + + + | Home Phone [...] Team Providers + +------+ + | Care Coating Engineer Name | Role | Phone | [...] | | | | | [place], | | | | | | [place] [address] | | | | | | [phone] | | | | | | | | +--------+---------+ + + + | 04/30/ | Office | Otolaryngology | Augustine Nolan | | | 2019 | Visit | | MD Debbie [address] | | | | | | [address] | | | | | | [place], [place] | | | | | | [address] | | | | | | [phone] | | | | | | | | +--------+---------+ + + + documented as of this encounter Visit Diagnoses Not on filedocumented in this encounter
--- OUTSIDE RECORDS SUMMARY | ~2020-03-30 | XMS | Encounter Summary ---
Demographics + + + | Address | [address] | | | [place] [address] | + + + | Home Phone [...] Author + + + | Author | [facility] | + + + | Organization | [facility] | + + + | Address | Unknown | + + + | Phone | Unavailable | + + + Support + + +---------+ + | Name | Relationship | Address | Phone | + + +---------+ + | Laura Allred | ECON | Unknown | | + + +---------+ + Care Team Providers + +------+ + | Care Mail Truck Driver Name | Role | Phone [...] | | | | Rd | [address] [place], | | | | | | [place], [place] | [place] | | | | | | [address] | [address] | | | | | | Phone: | Phone: | | | | | | [phone] | [phone] | | | | | | Fax: | Fax: | | | | | | [phone] | [phone] | +--------+--------+ + + + + Encounter Details +--------+---------+ + + + | Date | Type | Department | Care Team | Description | +--------+---------+ + + + | 12/27/ | Office | Cardiothoracic | Manoj Kumar MD | Malignant neoplasm | | 2019 | Visit | Surgery at [facility] | [address] | of lung, unspecified | | | | [address] | [address] | laterality, | | | | Center for [facility] | [facility] [place] | unspecified part of | | | | and Healing, | [address] | lung (HCC) (Primary | | | | Building [address] | [phone] | Dx); Acute | | | | [facility] [place] | | post-operative pain | | | | [address] | | | | | | [phone] | | | +--------+---------+ + + + [...] Alejandro Waters NP - 12/27/2018 10:15 AM [facility] Date of Service: 12/27/2018 [...] Name: Sussy Allred Date of : 1950 [facility] I personally interviewed the patient, performed gutiérrez [...] come out. Manoj Kumar M.D., FACS, FACCP ammonium nitrate neutralizer Section of General Thoracic Surgery Division of [...] | | | | | | [place] [address] | | | | | | [phone] | | | | | | | | +--------+---------+ + + + | 04/30/ | Office | Otolaryngology | Augustine Nolan | | | 2019 | Visit | | MD Debbie [address] | | | | | | [address] | | | | | | [place] | | | | | | [address] | | | | | | [phone] | | | | | | | | +--------+---------+ + + + documented as of this encounter Visit Diagnoses + + | Diagnosis | + + | Malignant neoplasm of lung, unspecified laterality, unspecified part of lung (HCC) - | | Primary | + + | Acute post-operative pain | + + documented in this encounter
--- OUTSIDE RECORDS SUMMARY | ~2020-03-30 | XMS | Encounter Summary ---
Demographics + + + | Address | [address] | | | [place] [address] | + + + | Home Phone [...] | [facility] | | | and Jakobana | + + + | Organization | [facility] | | | and Jakobana [...] Providers + +------+ + | Care Grain Elevator Worker Name | Role | Phone | + +------+ + | Lauryn Stuart PA-C | PCP | | + +------+ + Reason for Visit +--------+--------+ + | Reason | Onset | Comments | | | Date | | +--------+--------+ + | Other | 01/28/ | | | | 2019 | | +--------+--------+ + Encounter Details +--------+ + + + + | Date | Type | Department | Care Team | Description | +--------+ + + + + | 01/28/ | Telephone | [facility] | Nellie Segal RN | Other | | 2019 | | [facility] [address] | | | | | | [address] | | | | | | [place] [address] | | | | | | [phone] | | | +--------+ + + + [...] this encounter Miscellaneous Notes Telephone Encounter - Nellie Segal RN - 01/28/2019 11:37 AM Esmer was screened for h ereditary cancers and base on the information she provided there are no red flags to indicat e further genetic testing at this time.Electronically signed by Nellie Segal RN at 019 11:37 AM PDTdocumented in this encounter Plan of [...] | | | | | [place] [address] | | | | | | [phone] | | | | | | | | +--------+ + + + + documented as of this encounter Visit Diagnoses Not on filedocumented in this encounter"
--- OUTSIDE RECORDS SUMMARY | ~2020-03-30 | XMS | Encounter Summary ---
Demographics + + + | Address | [address] | | | [place] [address] | + + + | Home Phone [...] + | Author | [facility] | | | and Jakobana | + + + | Organization | [facility] | | | and Jakobana [...] Team Providers + +------+ + | Care Flume Tender Name | Role | Phone | [...] | | ANNELISE GROSSMAN | [place] [address] | | | | | [place] [address] | | | | | | [phone] | | | +--------+ + + + [...] | | | | | [place] [address] | | | | | | [phone] | | | | | | | [...]
--- OUTSIDE RECORDS SUMMARY | ~2020-03-30 | XMS | Encounter Summary ---
Demographics + + + | Address | [address] | | | [place] [address] | + + + | Home Phone [...] Team Providers + +------+ + | Care Strainer Cleaner Name | Role | Phone | [...] | | | | CONSULT TO | [place], [place] | Floor | | | | | SURGERY - | [address] | [place], [place] | | | | | (EGS)EMERGEN | Phone: | [phone] | | | | | CY GENERAL | [phone] | Phone: | | | | | SURGERY | Fax: | [phone] | | | | | | [phone] | Fax: | | | | | | | [phone] | + +--------+ + + + + [...] | | | | [address] | [place] [address] | | | | | Physicians [place], | [phone] | | | | | 2nd Floor | | | | | | [place], [place] | | | | | | [address] | | | | | | [phone] | | | +--------+---------+ + + + [...] gastrostomy site. Kendall Taylor MD, PhD, FACS brand sales manager Division of Trauma, Critical Care & Acute Care Surgery [facility] [phone] documented in this e ncounter Plan of Treatment +--------+---------+ + + + | Date | Type | Specialty | Care Team | Description | +--------+---------+ + + + | 04/30/ | Office | Speech Therapy | Barbra Ramirez SLP | | | 2019 | Visit | | [address] | | | | | | [place], | | | | | | [place] [address] | | | | | | [phone] | | | | | | | | +--------+---------+ + + + | 04/30/ | Office | Otolaryngology | Augustine Nolan | | | 2019 | Visit | | MD Debbie [address] | | | | | | [address] | | | | | | [place], [place] | | | | | | [address] | | | | | | [phone] | | | | | | | | +--------+---------+ + + + documented as of this encounter Visit Diagnoses + + | Diagnosis | + + | Dysphagia, unspecified type - Primary | + + documented in this encounter
--- OUTSIDE RECORDS SUMMARY | ~2020-03-30 | XMS | Encounter Summary ---
Demographics + + + | Address | [address] | | | [place] [address] | + + + | Home Phone | | + + + | Preferred Language | Unknown | + + + | Marital Status | Single | + + + | Faith Affiliation | NRP | + + + [...] Providers + +------+ + | Care Fruit Dryer Name | Role | Phone | + [...] LEFT MEDIALIZATION | | 2019 | | [facility] | MD Debbie [address] [facility] | THYROPLASTY | | | | and Healing Surgery | [address] | | | | | Center Admitting | [place], [place] | | | | | Desk Located on the | [address] | | | | | 4th floor [address] | [phone] | | | | | [address] [facility], | | | | | | [place] [address] | | | +--------+---------+ + + + [...] Nolan MD - 10/10/2019 7:48 AM PST [facility] Discharge Summary Discharging Provider: Augustine Nolan MD [...] Otol[facility]ology [facility] Otolaryngolo 10/31/2019 1:30 PM Augustine Nolan Otolaryngology Laryngology Services at [facility] [phone] Otolaryngolo docudoc in thi s encounter Discharge Instructions Discharge Instr - AVS First Page Augustine Nolan MD - 10/10/2019 7:47 AM Fredrick Nolan M.D. Cigar Head Perforator Laryngology and Head & Neck Surgery For after hour emergencies, call [phone] or [phone] signed by Augustine lance MD at 10/10/2019 [...] daily | | | | | | lic/[id number] (HAIR, | with dinner. | | | [...] be different f rom the original. [facility] [place] [address] OVERNIGHT OUTPATIENT CARE UNIT PROVIDER NOTE: Attending [...] Date Anxiety COPD (chronic obstructive pulmonary disease) ([facility]) Dysphonia 12/04/2018 GERD (gastroesophageal reflux disease) Hypothyroidism [...] DNP, CARMELO-BC [facility] Outpatient Care Unit pager [phone] 10/10/2019 Bartolome Paredes PA-C - 10/09/2019 4:53 [...] | | | | | [place], | | | | | | [place] [address] | | | | | | [phone] | | | | | | | | +--------+---------+ + + + | 04/30/ | Office | Otolaryngology | Augustine Nolan | | 2019 | Visit | | MD Debbie [address] | | | | | | [address] | | | | | | [place] | | | | | | [address] | | | | | | [phone] | | | | | | | [...] NAME: | | | Sussy Allred MR#: [id number] : 1950 Date: | | | 10/09/2019 Attending Surgeon: | | | Augustine Nolan M.D. Linen Clerk(s): | | | Dunia Couch MD; Rianna [...] block silastic thyroplasty implant. Drains: A 10 Syriac round | | | drain. Complications: None [...] a 3 mm cutting dwight on the OpTripx | | | drill. Once completed, the inner perichondrium was carefully | | | incised using a Kenton blade. This was excised. Subperichondrial | | [...] muscles were then reapproximated. A small 10 Syriac channel drain | | | was placed [...] | | | procedure. Augustine Nolan M.D. Cigar Head Perforator | | | Laryngology and Head & Neck Surgery | | + + + INTRAPROCEDURE IMAGING (10/09/2019 6:03 AM [facility]) + + | Specimen | + [...]
--- OUTSIDE RECORDS SUMMARY | ~2020-03-30 | XMS | Encounter Summary ---
Demographics + + + | Address | [address] | | | [place] [address] | + + + | Home Phone [...] + + + | Author | [facility] | | | and Jakobana | + + + | Organization | [facility] | | | [...] Team Providers + +------+ + | Care Ballistics [facility] Gunsmith Name | Role | Phone | + +------+ + | Lauryn Stuart PA-C | PCP | | + +------+ + Reason for Visit + +--------+ + | Reason | Onset | Comments | | | Date | | + +--------+ + | Medication Refill | 12/04/ | | | | 2020 | | + +--------+ + | Medication Refill | 12/21/ | | | | 2020 | | + +--------+ + Encounter Details +--------+--------+ + + + | Date | Type | Department | Care Team | Description | +--------+--------+ + + + | 12/04/ | Refill | [facility] | Adolfo, | Medication Refill; | | 2019 | | [facility] | Boubacar Daniels MD [address] | Medication Refill | | | | [facility] | [facility] | | | | | [address] | [address], [place] | | | | | [place] [address] | [address] | | | | | [phone] | | | +--------+--------+ + + + [...] documented as of this encounter Miscellaneous Notes Addendum Note - Franklin Au RN - 12/22/2019 11:36 AM PDT Addended by: FRANKLIN AU on: 12/22/2019 11:36 AM Modules accepted: Orders elephone Rachel Christine - 12/22/2019 11:03 AM PDTKatharina came into the clinic to check on her re fill. Please advise that she would like her refill sent to the [facility] pharmacy in [place] . Thank you. elephone Bassam Patino - 12/05/2019 2:10 PM PDTPt called [phone] Refills needed on HYDROcodone-acetaminophen (NORCO) 7.5-325 mg per tablet And she would like it raised to 150 pills per month due to migraine headaches fentaNYL (DURAGESIC) 50 mcg/hr Thank you Pt called back / wants scripts to go to [facility] in [place]. documented in this encounter Plan of Treatment +--------+ + + + + | Date | Type | Specialty | Care Team | Description | +--------+ + + + + | 04/20/ | Appointment | Radiation Oncology | Treva Ortega | | | 2019 | | | DEISY Hernandez [address] | | | | | | [address] | | | | | | [place] [address] | | | | | | [phone] | | | | | | | | +--------+ + + + + documented as of this encounter Visit Diagnoses + + | Diagnosis | + + | Malignant neoplasm of hilus of lung, unspecified laterality (HCC) | + + documented in this encounter"
--- OUTSIDE RECORDS SUMMARY | 2020-03-30 13:00 | XMS ---
PreManage Notification: CESILIA ZHOU Security Insurance Analyst Events No recent Security Events currently on file CRITERIA MET - PDMP CARE PROVIDERS SILKE SNELL Physician Resource Agent 12/16/2018-Current PHONE: Unknown [facility] has no Care Guidelines for this patient. Corinne VISIT COUNT (12 MO.) 1 LYLE Staples TOTAL 1 NOTE: Visits indicate total known visits. ED/UCC VISIT TRACKING (12 MO.) 03/30/2020 12:59 [place]YLE Re[place] TYPE: Emergency COMPLAINT: - SORE THROAT/SOB 03/30/2019 15:25 [place] TYPE: Emergency COMPLAINT: - CHEST DISCOMFORT,VOMITING DIAGNOSES: - Personal history of other malignant neoplasm of bronchus and - Other chest pain - Allergy status to analgesic agent status - Other pancytopenia - Personal history of nicotine dependence - Anxiety disorder, unspecified INPATIENT VISIT TRACKING (12 MO.) No inpatient visits to display in this time frame [email or web address]
[2020-03-30] MEDS ORDERED: TRAZODONE HCL50 MG PO (13:10)
[2020-03-30] MEDS ORDERED: HYDROCODON-ACE1 EA11 PO (13:11)
[2020-03-30] MEDS ORDERED: FENTANYL1 EACH TD (13:11)
[2020-03-30] MEDS ORDERED: ESTRADIOL2 MG PO (13:11)
[2020-03-30] MEDS ORDERED: BUPROPION XL300 MG PO (13:11)
[2020-03-30] MEDS ORDERED: CILOSTAZOL50 MG PO (13:12)
[2020-03-30] MEDS ORDERED: SYNTHROID50 MCG PO (13:13)
[2020-03-30] MEDS ORDERED: TRIAMTERENE-HC1 EAC1 PO (13:13)
[2020-03-30] MEDS ORDERED: LANSOPRAZOLE30 MG PO (13:13)
--- NOTE | 2020-03-31 07:02 | PATH ---
[facility] [address] [facility] [place], [place] [address] Signed ORDERING PHYSICIAN: Bartolome Cassidy MD PATIENT NAME: CESILIA ZHOU GENDER: F : 1950 SPECIMEN(S): MOLECULAR PATHOLOGY RESULTS: SARS-CoV-2 Not Detected ADDITIONAL NOTES.: The [place] Fusion SARS-CoV-2 Assay is a multiplex real-time PCR (RT-PCR) in vitro diagnostic test intended for the qualitative detection of RNA from SARS-CoV-2 from individuals who meet COVID-19 clinical and/or epidemiological criteria. In general, SARS-CoV-2 RNA can be detected during the acute phase of infection. Positive results indicate the presence of SARS-CoV-2 RNA. Clinical correlation with patient history and other diagnostic information is necessary to determine patient infection status. Positive results do not rule out bacterial infection or co-infection with other viruses. Negative results do not preclude SARS-CoV-2 infection and should not be used as the sole basis for patient management decisions. Negative results must be combined with other clinical observations, patient history, and epidemiological information. The [place] Fusion SARS-CoV-2 Assay is not yet approved or cleared by the [place] FDA. When there are no FDA-approved or cleared tests available, and other criteria are met, FDA can make tests available under an emergency access mechanism called an Emergency Use Authorization (EUA). The EUA for this test is supported by the [place] of Health and Human Service's (HHS's) declaration that circumstances exist to justify the emergency use of in vitro diagnostics for the detection and/or diagnosis of the virus that causes COVID-19. This EUA will remain in effect for the duration of the COVID-19 declaration justifying emergency of IVDs, unless it is terminated or revoked by FDA, after which the test may no longer be used. The [place] Fusion SARS-CoV-2 Assay is for use only under EUA in US laboratories certified under the Clinical Laboratory Improvement Amendments of 1988 (CLIA) to perform high complexity tests. [facility] is certified under CLIA to perform high complexity PATIENT NAME: CESILIA ZHOU LEANDRO PATHOLOGY DATE OF : 52 REPORT #: [id number] PHYSICIAN: RAJI PATHOLOGY PCP: SILKE SENLL REPORT IS CONFIDENTIAL AND NOT TO BE RELEASED WITHOUT AUTHORIZATION [facility] [address] [place] [id number] Signed clinical laboratory testing. PERFORMING LABORATORY.: Molecular testing was performed by [facility] [place] [address] (Manager Party: Erwin Brown D.O.; CLIA#: [id number]) Diagnostician: System Interface Pathologist Electronically Signed 03/31/2020 Copies: ~ PATIENT NAME: WINNIECESILAI REEVES PATHOLOGY DATE OF : 52 REPORT #: [id number] PHYSICIAN: RAJI CARPENTER PCP: SILKE SNELL REPORT IS CONFIDENTIAL AND NOT TO BE RELEASED WITHOUT AUTHORIZATION
--- NOTE | 2020-03-31 16:14 | EKG ---
[facility] [address] [facility] [place] [address] Signed Normal sinus rhythm Normal ECG When compared with ECG of 30-MAR-2019 15:36, No significant change was found Confirmed by FRANKLIN COTTER MD ([id number]) on 03/31/2020 4:14:20 PM Electronically Signed By: FRANKLIN COTTER MD 03/31/20 1614 PATIENT NAME: ZHOUCESILIA LEANDRO Electrocardiogram DATE OF : 52 PHYSICIAN: FRANKLIN COTTER MD REPORT #: [id number] REPORT IS CONFIDENTIAL AND NOT TO BE RELEASED WITHOUT AUTHORIZATION
== END 2020-03-30 16:55 | disposition home or self-care (01) ==
LOC: ED 12:58
DX: C34.90 Malignant neoplasm of unspecified part of unspecified bronchus or lung (principal); Z88.8 Allergy status to other drugs, medicaments and biological substances; Z87.891 Personal history of nicotine dependence; Z79.899 Other long term (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; Z90.2 Acquired absence of lung [part of]
CPT/HCPCS: 71045; 71260; 80053; 84484; 85025; 85379; 93005; 93010; 94640; 94664; 99285-25; C9803; J2060; Q9967

== ENCOUNTER 2020-09-01 09:00 | Day surgery (SDC) | payer OTHER ==
[~2020-09-01] VITALS: Ht 162.6 cm; Wt 44.5 kg
[~2020-09-01 09:00] MED LIST: ACYCLOVIR400 MG PO; BUPROPION XL300 MG PO; CILOSTAZOL50 MG PO; DEXAMETHASONE4 MG PO; ESTRADIOL2 MG PO; FENTANYL1 EACH TD; HYDROCODON-ACE1 EA11 PO; LANSOPRAZOLE30 MG PO; MORPHINE PO; MULTI VITAMIN1 EACH PO; ONDANSETRON ODT8 MG PO; SENNA-DOCUSATE1 EAC1 PO; SYNTHROID50 MCG PO; TESSALON PERLE100 MG PO; TRAZODONE HCL50 MG PO; TRIAMTERENE-HC1 EAC1 PO; VITAMIN B-121000 MC3 PO
[2020-09-01] MEDS ORDERED: CILOSTAZOL50 MG PO (09:33)
[2020-09-01] MEDS ORDERED: BENZONATATE150 MG PO (09:34)
--- NOTE | 2020-09-01 12:07 | NUR ---
09/01/20 1207 Vee Mahmood 1139 PT ARRIVED IN PACU NON RESPONSIVE TO NOXIOUS STIMULI. CHIN LIFT HELD BY RN. 1142 PT REACTIVE. 1145 PCXR DONE. LOOKED AT XRAY. 1200 PT AWAKE TALKING TO STAFF. C/O GAS DISCOMFORT. ENCOURAGED TO PASS.
--- NOTE | 2020-09-01 12:31 | NUR ---
PT IS BACK TO DS FROM PACU. SHE IS REPORTING SHE WOULD LIKE SOME TYLENOL WHEN AVAILABLE, BUT REPORTING NO PAIN. WATER ON BEDSIDE TABLE. CALL LIGHT WITHIN REACH. NO ADDITIONAL NEEDS.
--- NOTE | 2020-09-01 12:43 | NUR ---
PT STATES THAT CHRONIC PAIN IS "STARTING TO CREEP UP" AND RATES 8/10. PT MEDICATED PER EMAR. PT TOLERATING JELLO AND WATER WITH NO NAUSEA.
--- NOTE | 2020-09-01 12:57 | OR ---
[facility] [address] [place], [place] [address] Signed DATE OF OPERATION: 09/01/2020 SURGEON: Roby Toro MD PREOPERATIVE DIAGNOSIS: Recurrent left lung cancer. POSTOPERATIVE DIAGNOSIS: Recurrent left lung cancer. PROCEDURES: 1. Placement of right IJ mjrb-C-nqbejvcl. 2. Physician directed fluoroscopy. 3. Physician directed ultrasound. ESTIMATED BLOOD LOSS: None. INDICATIONS: Sussy is a 70-year-old female, asked to see me in the office for placement of a phwd-X-ltnuqgyi. She was diagnosed with lung cancer back in 2019. It has now recurred. This was in the left upper lobe. She had resection of that lobe along with sleeve resection of the trachea. 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 She has had chemo and radiation as well. She also had a temporary gastrostomy tube, which has now been removed. 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 She is proceeding with ongoing chemotherapy. Consequently, she is in need of her biym-N-muujlvai. She told me her friend has a xioa-X-maasrgow, so she is somewhat familiar with this process. I reviewed with her in the office the nature of bgeq-C-etjquzrz. We discussed the surgery in detail. She understands expected intraop and postop course. We did review the risks including, but not limited to bleeding, infection, scarring, change in contour of the skin as well as pneumothorax requiring chest tube placement, as well as catheter embolization requiring retrieval. She had expressed understanding and wished to proceed. DESCRIPTION OF PROCEDURE: I met with Sussy in the preop area. After this, we took her into the operating room and placed her in the supine position under general LMA anesthesia. She was given preoperative antibiotics along with subcutaneous heparin. SCDs were utilized. She was prepped and draped in the usual sterile fashion. She was placed in the Trendelenburg position. With the ultrasound, we could easily see her right internal jugular vein. Electronically Signed By: ROBY TORO MD 09/01/20 1257 PATIENT NAME: SUSSY ZHOU OPERATIVE REPORT DATE OF : 52 REPORT #: [id number] PHYSICIAN: ROBY TORO MD PCP: SILKE SNELL REPORT IS CONFIDENTIAL AND NOT TO BE RELEASED WITHOUT AUTHORIZATION [facility] [address] [place], [place] [address] Signed Local anesthetic was injected. We could easily see the needle pass under direction of the ultrasound directly into the jugular vein. We had good withdrawal of dark nonpulsatile venous blood. The wire was able to feed without any resistance whatsoever. We checked the position of the wire with the help of the fluoroscopy unit. After this, we injected local anesthetic down along the right side of the neck onto the chest wall. An oblique incision was made just below the clavicle and subcutaneous pocket was made on the right chest wall. We then passed the dilator over the wire and checked the position of the dilator with help of fluoroscopy unit. The catheter was then inserted up to about 12 cm at the level of neck and position of the catheter was checked again with the fluoroscopy unit. The dilator sheath was then removed. The tunneler was then passed underneath the skin up to the neck from the chest wall. The catheter was brought in the subcutaneous space down onto the chest wall. The collar was placed down onto the catheter and the catheter was cut to length. The hub was placed onto the catheter and the collar was brought back onto the neck of the hub. The catheter was able to draw and flush quite readily with saline. We rechecked the entire length of the catheter in a position with the help of the fluoroscopy unit. We then filled our catheter with concentrated heparin. The catheter was held in place with 3 interrupted Prolene sutures. We closed the dermis on the neck incision and the chest wall incision with interrupted subcuticular 5-0 Monocryl sutures. The skin edges were reapproximated with a running 5-0 fast absorbing plain gut suture. Dry gauze and tape were then applied. Sussy was then awakened from anesthesia, extubated in the OR, and taken to recovery room in stable condition. She tolerated procedure quite well. We just finished our portable chest x-ray and it appears to be in good position with no pneumothorax. Roby Toro MD ALB/MODL /[id number] cc: MALLIKA Toledo Dr[address] MD Robert C Quackenbush, MD Electronically Signed By: ROBY TORO MD 09/01/20 1257 PATIENT NAME: SUSSY ZHOU LEANDRO OPERATIVE REPORT DATE OF : 52 REPORT #: [id number] PHYSICIAN: ROBY TORO MD PCP: SILKE SNELL REPORT IS CONFIDENTIAL AND NOT TO BE RELEASED WITHOUT AUTHORIZATION [address] [place], [place] [address] Signed Copies: SILKE SNELL ANDREW L MD QUACKENBUSH, ROBERT C MD ~ Electronically Signed By: ROBY TORO MD 09/01/20 1257 PATIENT NAME: SUSSY ZHOU LEANDRO OPERATIVE REPORT DATE OF : 52 REPORT #: [id number] PHYSICIAN: ROBY TORO MD PCP: SILKE SNELL REPORT IS CONFIDENTIAL AND NOT TO BE RELEASED WITHOUT AUTHORIZATION
--- NOTE | 2020-09-01 13:35 | NUR ---
PT SITS AT SIDE OF BED PRIOR TO STANDING. STATES "A LITTLE DIZZY" WHEN ASKED BUT DENIES BEDSIDE COMMODE, STATES "JUST STAY BY ME AND I WILL BE FINE." PT HAS STEADY GAIT TO BATHROOM, ABLE TO VOID 350 MLS YELLOW URINE. PT BACK TO RM 6 AND IN BED WITH WARM BLANKETS, TANK HUGGER AND SCD'S IN PLACE. CALL LIGHT WITHIN REACH.
--- NOTE | 2020-09-01 13:50 | NUR ---
LUNCH ORDERED FOR PT.
--- NOTE | 2020-09-01 14:29 | NUR ---
PT TOLERATES LUNCH WITH NO C/O NAUSEA. PT STATES PAIN IN SURGICAL SITE IS 5/10 AND TOLERABLE. PT RESTING IN BED WATCHING TV WITH CALL LIGHT IN REACH.
--- NOTE | 2020-09-01 15:05 | NUR ---
PATIENT PUSHES HER CALL LIGHT AND ASKS TO GET DRESSED. HER CLOTHES ARE GIVEN TO HER AND HER CALL LIGHT IS WITHIN REACH.
--- NOTE | 2020-09-01 15:29 | NUR ---
PT UP TO BATHROOM WITH RN ASSIST, STEADY GAIT AND NO COMPLAINTS OF DIZZINESS OR NAUSEA. PT FULLY DRESSED AT THIS TIME, FRIEND NOTIFIED FOR SAFE RIDE HOME.
== END 2020-09-01 15:42 | disposition home or self-care (01) ==
LOC: DS 09:00
PROVIDERS: ATTEND Colon & Rectal Surgery
PROC: 02HV33Z Insertion of Infusion Device into Superior Vena Cava, Percutaneous Approach (ICD-10-PCS; principal; 2020-09-01 09:45)
DX: C34.12 Malignant neoplasm of upper lobe, left bronchus or lung (principal); I10 Essential (primary) hypertension; K21.9 Gastro-esophageal reflux disease without esophagitis; E03.9 Hypothyroidism, unspecified; F32.9 Major depressive disorder, single episode, unspecified; F41.9 Anxiety disorder, unspecified; Z91.040 Latex allergy status; Z88.8 Allergy status to other drugs, medicaments and biological substances; Z91.048 Other nonmedicinal substance allergy status; Z92.21 Personal history of antineoplastic chemotherapy; Z92.3 Personal history of irradiation
CPT/HCPCS: 00532; 71045; 77001; C1788; J0690; J1100; J1644; J1720; J1885; J2250; J2405; J2704; J2765; J3010; J7121

== ENCOUNTER 2020-10-31 01:19 | Emergency (ER) | payer OTHER ==
[~2020-10-31] VITALS: Ht 162.6 cm; Wt 44.0 kg
[~2020-10-31 01:19] MED LIST changes: +BENZONATATE150 MG PO
[2020-10-31] MEDS ORDERED: DILAUDID4 MG PO (04:15)
[2020-10-31] MEDS ORDERED: ONDANSETRON ODT8 MG PO (04:15)
--- OUTSIDE RECORDS SUMMARY | 2020-10-31 04:48 | XMS ---
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 Corinne VISIT COUNT (12 MO.) 2 [facility] TOTAL 2 NOTE: Visits indicate total known visits. ED/UCC VISIT TRACKING (12 MO.) 10/31/2020 01:19 [facility] [place] TYPE: Emergency COMPLAINT: - SOB 03/30/2020 12:59 [facility] [place] TYPE: Emergency COMPLAINT: - SORE THROAT/SOB DIAGNOSES: - Allergy status to other drugs, medicaments and biological substances - Malignant neoplasm of unspecified part of unspecified bronchus or lung - Acquired absence of lung [part of] - Shortness of breath - Personal history of nicotine dependence - Contact with and (suspected) exposure to other viral communicable diseases - Other lapel baster (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 INPATIENT VISIT TRACKING (12 MO.) No inpatient visits to display in this time frame [email or web address]
[2020-11-01] MEDS ORDERED: DILAUDID4 MG PO (13:17)
--- NOTE | 2020-11-01 17:21 | EKG ---
[facility] [address] [facility] [place], [place] [address] Signed Normal sinus rhythm Cannot rule out Anterior infarct , age undetermined Abnormal ECG When compared with ECG of 26-AUG-2020 16:33, Nonspecific T wave abnormality now evident in Anterolateral leads Confirmed by HAWA BECERRIL DO ([id number]) on 11/01/2020 5:21:07 PM Electronically Signed By: HAWA BECERRIL DO 11/01/20 172 PATIENT NAME: ZHOUCESILIA Electrocardiogram DATE OF : 52 PHYSICIAN: HAWA BECERRIL DO REPORT #: [id number] REPORT IS CONFIDENTIAL AND NOT TO BE RELEASED WITHOUT AUTHORIZATION
== END 2020-10-31 04:35 | disposition home or self-care (01) ==
LOC: ED 01:19
DX: G89.3 Neoplasm related pain (acute) (chronic) (principal); Z85.118 Personal history of other malignant neoplasm of bronchus and lung; Z87.891 Personal history of nicotine dependence; Z88.6 Allergy status to analgesic agent; Z91.040 Latex allergy status; Z91.048 Other nonmedicinal substance allergy status; Z79.899 Other long term (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; Z79.891 Long term (current) use of opiate analgesic
CPT/HCPCS: 71045; 80053; 82378; 83615; 83735; 84484; 85025; 93005; 93010; 96374; 96375; 96376; 99285-25; J1170; J2405; J7030

== ENCOUNTER 2020-11-01 11:04 | Emergency (ER) | payer OTHER ==
[~2020-11-01] VITALS: Ht 162.6 cm; Wt 43.1 kg
[~2020-11-01 11:04] MED LIST changes: +DILAUDID4 MG PO
--- OUTSIDE RECORDS SUMMARY | 2020-11-01 11:08 | XMS ---
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 Care History Medical/Surgical 11/01/2020 [facility] - PATIENT ONCOLOGIST-DR QUACKENBUSH. Sun VISIT COUNT (12 MO.) 3 [facility]. TOTAL 3 NOTE: Visits indicate total known visits. ED/UCC VISIT TRACKING (12 MO.) 11/01/2020 11:05 [facility] [place] TYPE: Emergency COMPLAINT: - SOB, L SIDE PAIN 10/31/2020 01:19 [facility] [place] TYPE: Emergency [...] to other viral communicable diseases - Other prison (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 INPATIENT VISIT TRACKING (12 MO.) No inpatient visits to display in this time frame [id number]
[2020-11-01] MEDS ORDERED: DILAUDID4 MG PO (13:17)
== END 2020-11-01 13:45 | disposition home or self-care (01) ==
LOC: ED 11:04
DX: R07.9 Chest pain, unspecified (principal); C34.92 Malignant neoplasm of unspecified part of left bronchus or lung; Z87.891 Personal history of nicotine dependence; Z88.5 Allergy status to narcotic agent; Z91.048 Other nonmedicinal substance allergy status; Z91.040 Latex allergy status; Z79.899 Other long term (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
CPT/HCPCS: 71045; 96374; 96375; 99284-25; J1170; J2405

== ENCOUNTER 2020-11-15 05:40 | Emergency (ER) | payer OTHER ==
[~2020-11-15] VITALS: Ht 162.6 cm; Wt 44.0 kg
--- OUTSIDE RECORDS SUMMARY | 2020-11-15 05:42 | XMS ---
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 Care History Medical/Surgical 11/01/2020 [facility] - PATIENT ONCOLOGIST-DR QUACKENBUSH. Sun VISIT COUNT (12 MO.) 4 [facility]. TOTAL 4 NOTE: Visits indicate total known visits. ED/UCC VISIT TRACKING (12 MO.) 11/15/2020 05:40 [facility] [place] TYPE: Emergency COMPLAINT: - SOB 11/01/2020 11:05 [facility] [place] TYPE: Emergency COMPLAINT: - SOB, L SIDE PAIN DIAGNOSES: - Latex allergy status - Allergy status to narcotic agent - Shortness of breath - Malignant neoplasm of unspecified part of left bronchus or lung - Personal history of nicotine dependence - Other nonmedicinal substance allergy status - Chest pain, unspecified - Other termite control service representative (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 10/31/2020 01:19 [facility] [place] TYPE: Emergency COMPLAINT: - SOB DIAGNOSES: - Neoplasm related pain (acute) (chronic) - Other termite control service representative (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 - Personal history of other malignant neoplasm of bronchus and lung - Allergy status to analgesic agent - Latex allergy status - Other nonmedicinal substance allergy status - Shortness of breath - Personal history of nicotine dependence - 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 [place] TYPE: Emergency COMPLAINT: - SORE THROAT/SOB DIAGNOSES: - Allergy status to other drugs, medicaments and biological substances - Malignant neoplasm of unspecified part of unspecified bronchus or lung - Acquired absence of lung [part of] - Shortness of breath - Personal history of nicotine dependence - Contact with and (suspected) exposure to other viral communicable diseases - Other termite control service representative (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 INPATIENT VISIT TRACKING (12 MO.) No inpatient visits to display in this time frame [email or web address]
[2020-11-15] MEDS ORDERED: LORAZEPAM1 MG PO (05:58)
--- NOTE | 2020-11-15 19:15 | EKG ---
[facility] [address] [facility] [place] [address] Signed Normal sinus rhythm Normal ECG When compared with ECG of 31-OCT-2020 01:29, Non-specific change in ST segment in Anterior leads Nonspecific T wave abnormality no longer evident in Anterolateral leads Confirmed by FRANKLIN COTTER MD ([id number]) on 11/15/2020 7:15:32 PM Electronically Signed By: FRANKLIN COTTER MD 11/15/20 1915 PATIENT NAME: CESILIA ZHOU LEANDRO Electrocardiogram DATE OF : 52 PHYSICIAN: FRANKLIN COTTER MD REPORT #: [id number] REPORT IS CONFIDENTIAL AND NOT TO BE RELEASED WITHOUT AUTHORIZATION
== END 2020-11-15 09:30 | disposition home or self-care (01) ==
LOC: ED 05:40
DX: R07.9 Chest pain, unspecified (principal); M54.9 Dorsalgia, unspecified; C34.90 Malignant neoplasm of unspecified part of unspecified bronchus or lung; Z20.822 Contact with and (suspected) exposure to COVID-19; Z87.891 Personal history of nicotine dependence; Z88.5 Allergy status to narcotic agent; Z91.048 Other nonmedicinal substance allergy status; Z91.040 Latex allergy status; Z99.81 Dependence on supplemental oxygen
CPT/HCPCS: 71045; 71260; 80053; 83690; 83735; 84484; 85025; 93005; 93010; 99285-25; C9803; J1170; U0003

== ENCOUNTER 2020-11-29 16:46 | Emergency (ER) | payer OTHER ==
[~2020-11-29] VITALS: Ht 162.6 cm; Wt 43.2 kg
[~2020-11-29 16:46] MED LIST changes: +LORAZEPAM1 MG PO
--- OUTSIDE RECORDS SUMMARY | 2020-11-29 16:50 | XMS ---
PreManage Notification: CESILIA ZHOU Security Personal Financial Advisor Events No recent Security Events currently on file CRITERIA MET - [facility] - [facility] - 2 Visits in 30 Days CARE PROVIDERS CHUN Daniels Internal Medicine: Medical Oncology 11/16/2020-Current STEPHEN PHONE: [phone] SILKE SNELL Physician Floor Worker Well Service 12/16/2018-Current PHONE: Unknown [facility] has no Care Guidelines for this patient. Care History Medical/Surgical 11/01/2020 [facility] - PATIENT ONCOLOGIST-DR MCCOLLUM. Corinne VISIT COUNT (12 MO.) 5 [facility] TOTAL 5 NOTE: Visits indicate total known visits. ED/UCC VISIT TRACKING (12 MO.) 11/29/2020 16:47 [facility] [place] TYPE: Emergency COMPLAINT: - VOMITTING 11/15/2020 05:40 [facility] [place] TYPE: Emergency COMPLAINT: - SOB DIAGNOSES: - Personal history of nicotine dependence - Dependence on supplemental oxygen - Other nonmedicinal substance allergy status - Malignant neoplasm of unspecified part of unspecified bronchus or lung - Dorsalgia, unspecified - Allergy status to narcotic agent - Chest pain, unspecified - Latex allergy status 11/01/2020 11:05 [facility] [place] TYPE: Emergency COMPLAINT: - SOB, L SIDE PAIN DIAGNOSES: - Latex allergy status - Allergy status to narcotic agent - Shortness of breath - Malignant neoplasm of unspecified part of left bronchus or lung - Personal history of nicotine dependence - Other nonmedicinal substance allergy status - Chest pain, unspecified - Other snf (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 10/31/2020 01:19 [facility] [place] TYPE: Emergency COMPLAINT: - SOB DIAGNOSES: - Neoplasm related pain (acute) (chronic) - 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 (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 - Personal history of other malignant neoplasm of bronchus and lung - Allergy status to analgesic agent - Latex allergy status - Other nonmedicinal substance allergy status - Shortness of breath - Personal history of nicotine dependence - longterm (current) use of opiate analgesic 03/30/2020 12:59 [facility] [place] TYPE: Emergency COMPLAINT: - SORE THROAT/SOB DIAGNOSES: - Allergy status to other drugs, medicaments and biological substances - Malignant neoplasm of unspecified part of unspecified bronchus or lung - Acquired absence of lung [part of] - Shortness of breath - Personal history of nicotine dependence - Contact with and (suspected) exposure to other viral communicable diseases - Other snf (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 INPATIENT VISIT TRACKING (12 MO.) No inpatient visits to display in this time frame [email or web address]
[2020-11-29] MEDS ORDERED: ACYCLOVIR800 MG PO (17:33)
[2020-11-29] MEDS ORDERED: METOCLOPRAMIDE H5 M1 PO (17:33)
[2020-11-29] MEDS ORDERED: MAG-OXIDE400 MG PO (17:33)
== END 2020-11-29 21:27 | disposition home or self-care (01) ==
LOC: ED 16:46
DX: R11.2 Nausea with vomiting, unspecified (principal); T45.1X5A Adverse effect of antineoplastic and immunosuppressive drugs, initial encounter; C34.90 Malignant neoplasm of unspecified part of unspecified bronchus or lung; Z87.891 Personal history of nicotine dependence; Z88.6 Allergy status to analgesic agent; Z91.040 Latex allergy status; Z91.048 Other nonmedicinal substance allergy status; Z79.899 Other long term (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
CPT/HCPCS: 80053; 83735; 85025; 96374; 96375; 96376; 99284-25; J1170; J2405; J2550; J7030

== ENCOUNTER 2020-12-12 14:35 | Emergency (ER) | payer OTHER ==
[~2020-12-12] VITALS: Ht 162.6 cm; Wt 44.0 kg
[~2020-12-12 14:35] MED LIST changes: +ACYCLOVIR800 MG PO; +MAG-OXIDE400 MG PO; +METOCLOPRAMIDE H5 M1 PO
--- OUTSIDE RECORDS SUMMARY | 2020-12-12 14:38 | XMS ---
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 Care History Medical/Surgical 11/01/2020 [facility] - PATIENT ONCOLOGIST-DR MCCOLLUM. Corinne VISIT COUNT (12 MO.) 6 [facility] TOTAL 6 NOTE: Visits indicate total known visits. ED/UCC VISIT TRACKING (12 MO.) 12/12/2020 14:[address] [facility] [place] TYPE: Emergency COMPLAINT: - NAUSEA, WEAK, UNABLE TO EAT 11/29/2020 16:[address] [facility] [place] TYPE: Emergency COMPLAINT: - VOMITING DIAGNOSES: - Malignant neoplasm of unspecified part of unspecified bronchus or lung - Latex allergy status - Nausea with vomiting, unspecified - Adverse effect of antineoplastic and immunosuppressive drugs, initial encounter - Allergy status to analgesic agent - Other half-way (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 - Other nonmedicinal substance allergy status - Personal history of nicotine dependence 11/15/2020 05:40 [facility] [place] TYPE: Emergency [...] status - Chest pain, unspecified - Other half-way (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 10/31/2020 01:19 [facility] [place] TYPE: Emergency COMPLAINT: - SOB DIAGNOSES: - Neoplasm related pain (acute) (chronic) - Other half-way (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 - Personal history of other malignant neoplasm of bronchus and lung - Allergy status to analgesic agent - Latex allergy status - Other nonmedicinal substance allergy status - Shortness of breath - Personal history of nicotine dependence - half-way (current) use of opiate analgesic 03/30/2020 12:59 [...] to other viral communicable diseases - Other buttermaker helper (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 INPATIENT VISIT TRACKING (12 MO.) No inpatient visits to display in this time frame [email or web address]
[2020-12-12] MEDS ORDERED: FENTANYL1 EAC3 TD (17:19)
[2020-12-12] MEDS ORDERED: NEURONTIN300 MG PO (18:16)
== END 2020-12-12 19:14 | disposition home or self-care (01) ==
LOC: ED 14:35
DX: G89.3 Neoplasm related pain (acute) (chronic) (principal); R07.9 Chest pain, unspecified; C34.92 Malignant neoplasm of unspecified part of left bronchus or lung; Z87.891 Personal history of nicotine dependence; Z88.6 Allergy status to analgesic agent; Z91.040 Latex allergy status; Z91.048 Other nonmedicinal substance allergy status; Z79.899 Other long term (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; Z79.891 Long term (current) use of opiate analgesic
CPT/HCPCS: 80053; 85025; 96365; 96375; 96376; 99284-25; J1170; J2405; J2550; J3411; J7030

== ENCOUNTER 2021-01-25 14:32 | Emergency (ER) | payer OTHER ==
[~2021-01-25] VITALS: Ht 162.6 cm; Wt 43.1 kg
[~2021-01-25 14:32] MED LIST changes: +FENTANYL1 EAC1 TD; +FENTANYL1 EAC3 TD; +K-TAB ER20 MEQ PO; +LACTULOSE10 GM/151 PO; +NEURONTIN300 MG PO; +OXYCODONE HCL5 MG PO
--- OUTSIDE RECORDS SUMMARY | 2021-01-25 14:36 | XMS ---
PreManage Notification: CESILIA ZHOU Security Head Cager Events No recent Security Events currently on file CRITERIA MET - [facility] CHUN Daniels Internal Medicine: Medical Oncology 11/16/2020-Current STEPHEN PHONE: [phone] SILKE SNELL Physician Account Advisor 12/27/2020-Current PHONE: Unknown [facility] has no Care Guidelines for this patient. Care History Medical/Surgical 11/01/2020 [facility] - PATIENT ONCOLOGIST-DR MCCOLLUM. Corinne VISIT COUNT (12 MO.) 8 [facility] TOTAL 8 NOTE: Visits indicate total known visits. ED/UCC VISIT TRACKING (12 MO.) 01/25/2021 14:33 [facility] TYPE: Emergency COMPLAINT: - DIFFICULTY BREATHING/CANCER COMPLICATION 12/24/2020 15:05 [facility] TYPE: Emergency COMPLAINT: - CHEST/L ARM PAIN, DIFFICULTY BREATHING 12/12/2020 14:35 [facility] TYPE: Emergency COMPLAINT: - NAUSEA, WEAK, UNABLE TO EAT DIAGNOSES: - Other nonmedicinal substance allergy status - Latex allergy status - long term care social worker (current) use of opiate analgesic - Neoplasm related pain (acute) (chronic) - Personal history of nicotine dependence - Allergy status to analgesic agent - Chest pain, unspecified - Nausea - Malignant neoplasm of unspecified part of left bronchus or lung - Other long term care social worker (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 11/29/2020 16:47 [facility] TYPE: Emergency COMPLAINT: - VOMITING DIAGNOSES: - Malignant neoplasm of unspecified part of unspecified bronchus or lung - Latex allergy status - Nausea with vomiting, unspecified - Adverse effect of antineoplastic and immunosuppressive drugs, initial encounter - Allergy status to analgesic agent - Other halfway (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 - Other nonmedicinal substance [...] status - Chest pain, unspecified - Other halfway (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 10/31/2020 01:19 [facility] TYPE: Emergency COMPLAINT: - SOB DIAGNOSES: - Neoplasm related pain (acute) (chronic) - Other halfway (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 - Personal history of other malignant neoplasm of bronchus and lung - Allergy status to analgesic agent - Latex allergy status - Other nonmedicinal substance allergy status - Shortness of breath - Personal history of nicotine dependence - alf (current) use of opiate analgesic 03/30/2020 12:59 [...] to other viral communicable diseases - Other long term care social worker (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 INPATIENT VISIT TRACKING (12 MO.) 12/24/2020 15:06 [facility] TYPE: Observation COMPLAINT: - INTRACTABLE NEOPLASTIC PAIN SYNDROME DIAGNOSES: - Latex allergy status - Unspecified mood [affective] disorder - Gastro-esophageal reflux disease without esophagitis - Allergy status to analgesic agent - Hypomagnesemia - Hypokalemia - Personal history of antineoplastic chemotherapy - Other nonmedicinal substance allergy status - Malignant neoplasm of unspecified part of unspecified bronchus or lung - Neoplasm related pain (acute) (chronic) - Anemia, unspecified [email or web address]
--- NOTE | 2021-01-26 13:34 | EKG ---
[facility] [address] [place] [address] Signed Normal sinus rhythm Normal ECG When compared with ECG of 24-DEC-2020 15:12, Nonspecific T wave abnormality has replaced inverted T waves in Anterior leads Confirmed by FRANKLIN COTTER MD ([id number] on 01/26/2021 1:34:26 PM Electronically Signed By: FRANKLIN COTTER MD 01/26/21 1334 PATIENT NAME: CESILIA ZHOU LEANDRO Electrocardiogram DATE OF : 52 PHYSICIAN: FRANKLIN COTTER MD REPORT #: [id number] REPORT IS CONFIDENTIAL AND NOT TO BE RELEASED WITHOUT AUTHORIZATION
== END 2021-01-25 19:02 | disposition home or self-care (01) ==
LOC: ED 14:32
DX: R07.9 Chest pain, unspecified (principal); C34.90 Malignant neoplasm of unspecified part of unspecified bronchus or lung; Z87.891 Personal history of nicotine dependence; Z88.6 Allergy status to analgesic agent; Z91.040 Latex allergy status; Z91.048 Other nonmedicinal substance allergy status; Z79.899 Other long term (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; Z79.891 Long term (current) use of opiate analgesic
CPT/HCPCS: 71045; 80053; 83735; 84484; 85025; 93005; 93010; 96374; 96376; 99285-25; J1170

== ENCOUNTER 2021-04-05 22:56 | Inpatient (IN) | payer MEDICARE ==
[~2021-04-05] VITALS: Ht 165.1 cm; Wt 44.8 kg
--- OUTSIDE RECORDS SUMMARY | 2021-04-05 22:58 | XMS ---
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 Care History Medical/Surgical 11/01/2020 [facility] - PATIENT ONCOLOGIST-DR MCCOLLUM. Corinne VISIT COUNT (12 MO.) 8 [facility] TOTAL 8 NOTE: Visits indicate total known visits. ED/UCC VISIT TRACKING (12 MO.) 04/05/2021 22:[address] [facility] [place] TYPE: Emergency COMPLAINT: - DIFFICULTY BREATHING 01/25/2021 14:33 [facility] TYPE: Emergency COMPLAINT: - DIFFICULTY BREATHING/CANCER COMPLICATION DIAGNOSES: - Other long term care pharmacist (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 - penitentiary (current) use of opiate analgesic - Latex allergy status - Other nonmedicinal substance allergy status - Allergy status to analgesic agent - Personal history of nicotine dependence - Shortness of breath - Chest pain, unspecified - Malignant neoplasm of unspecified part of unspecified bronchus or lung 12/24/2020 15:05 [facility] TYPE: Emergency COMPLAINT: - CHEST/L ARM PAIN, DIFFICULTY BREATHING 12/12/2020 14:35 [facility] TYPE: Emergency COMPLAINT: - NAUSEA, WEAK, UNABLE TO EAT DIAGNOSES: - Other nonmedicinal substance allergy status - Latex allergy status - 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 - Neoplasm related pain (acute) (chronic) - Personal history of nicotine dependence - Allergy status to analgesic agent - Chest pain, unspecified - Nausea - Malignant neoplasm of unspecified part of left bronchus or lung - Other detention (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 11/29/2020 16:47 [facility] TYPE: Emergency COMPLAINT: - VOMITING DIAGNOSES: - Malignant neoplasm of unspecified part of unspecified bronchus or lung - Latex allergy status - Nausea with vomiting, unspecified - Adverse effect of antineoplastic and immunosuppressive drugs, initial encounter - Allergy status to analgesic agent - Other detention (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 - Other nonmedicinal substance [...] status - Chest pain, unspecified - Other detention (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 10/31/2020 01:19 [facility] TYPE: Emergency COMPLAINT: - SOB DIAGNOSES: - Neoplasm related pain (acute) (chronic) - Other long term care pharmacist (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 - Personal history of other malignant neoplasm of bronchus and lung - Allergy status to analgesic agent - Latex allergy status - Other nonmedicinal substance allergy status - Shortness of breath - Personal history of nicotine dependence - 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
--- NOTE | 2021-04-06 16:55 | EKG ---
[facility] [address] [place] [address] Signed Unusual P axis and short [place], probable junctional tachycardia Rightward axis Nonspecific ST and T wave abnormality Abnormal ECG When compared with ECG of 25-JAN-2021 15:50, Junctional rhythm has replaced Sinus rhythm Vent. rate has increased BY [address] elevation now present in Anterior leads T wave inversion now evident in Inferior leads Nonspecific T wave abnormality, worse in Anterolateral leads Confirmed by CARLIN KUHN MD ([id number]) on 04/06/2021 4:55:13 PM Electronically Signed By: CARLIN KUHN MD 04/06/21 1655 PATIENT NAME: CESILIA ZHOU LEANDRO Electrocardiogram DATE OF : 52 PHYSICIAN: CARLIN KUHN MD REPORT #: [id number] REPORT IS CONFIDENTIAL AND NOT TO BE RELEASED WITHOUT AUTHORIZATION
[2021-04-06] MEDS ORDERED: DURAGESIC1 EACH TOP (17:52)
[2021-04-06] MEDS ORDERED: ONDANSETRON ODT8 MG SL (18:06)
[2021-04-06] MEDS ORDERED: ACYCLOVIR400 MG PO (18:07)
[2021-04-06] MEDS ORDERED: DEXAMETHASONE2 MG PO (18:09)
[2021-04-13] MEDS ORDERED: ENOXAPARIN40 MG/0.4 SUB-Q (10:00)
[2021-04-13] MEDS ORDERED: FENTANYL1 EAC3 TD (10:01)
[2021-04-13] MEDS ORDERED: DURAGESIC1 EACH TOP (10:01)
[2021-04-13] MEDS ORDERED: LORAZEPAM1 MG PO (10:02)
[2021-04-13] MEDS ORDERED: DILAUDID4 MG PO (10:02)
== END 2021-04-13 12:30 | disposition home or self-care (01) | DRG 176 ==
LOC: ED 22:56 → MS 22:58
PROVIDERS: ADMIT Internal Medicine; ATTEND Internal Medicine
DX: I26.99 Other pulmonary embolism without acute cor pulmonale (principal); C34.90 Malignant neoplasm of unspecified part of unspecified bronchus or lung; E87.2 Acidosis; Z66 Do not resuscitate; Z20.822 Contact with and (suspected) exposure to COVID-19; G89.3 Neoplasm related pain (acute) (chronic); F39 Unspecified mood [affective] disorder; Z87.891 Personal history of nicotine dependence; Z90.710 Acquired absence of both cervix and uterus; Z90.49 Acquired absence of other specified parts of digestive tract; Z88.5 Allergy status to narcotic agent; Z91.040 Latex allergy status; Z91.09 Other allergy status, other than to drugs and biological substances; Z79.899 Other long term (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; Z90.2 Acquired absence of lung [part of]; Z85.118 Personal history of other malignant neoplasm of bronchus and lung
CPT/HCPCS: 71045; 71260; 80053; 83605; 84484; 85025; 87040; 93005; 93010; 94762; 97116; 97161; 97530; C9803; J0153; J1650; J2405; J7040; J7121; Q9967; U0003